=== PATIENT | male | born 1935 | race Caucasian/White ===

== ENCOUNTER 2016-06-06 12:06 | Inpatient (IN) | payer MEDICARE, BC ==
[~2016-06-06] VITALS: Ht 170.2 cm; Wt 79.0 kg
[2016-06-06] VITALS (9 sets, daily range): BP systolic 131–188; BP diastolic 63–88; PULSE 63–87; RESP 20–26; TEMP 96.6–99.1; O2SAT 86–97
[~2016-06-06 12:06] MED LIST: CELE20TA PO; GINK60CA3 PO; LISI10TA3 PO; METO50TA11 PO; MULT1TAB84 PO; OXYC20TA17 PO; PANT20 PO; PERC10TA27 PO; PRED5TAB PO; TAMS5CAP PO; TEST1INJ3 IM; VITA100064 PO
--- NOTE | 2016-06-06 12:11 | PD ---
Physical Exam Time Seen by Provider: 12:09 Narrative Patient presents for evaluation of shortness of breath and lethargy since this morning. States has low grade fever. Oxygen is 86% on RA. Patient will be transported to medical bed immediately. Data Data Last Documented VS Vital Signs Date Time Temp Pulse Resp B/P Pulse Ox O2 Delivery O2 Flow Rate FiO2 06/06/16 12:09 99.1 63 24 181/84 86 Room Air MDM Supervised Visit with DIEGO: Jessica Sanchez Jun 06, 2016 12:11
[2016-06-06] MEDS ORDERED: HYDROmorphone HCL PF 1 MG/ML VIAL IV ONE (12:30)
[2016-06-06] MEDS ORDERED: SODIUM CHLORID 0.9% 500 ML INJ 500 ML IV ONE (12:30)
[2016-06-06] MEDS ORDERED: VANCOMYCIN INJ 1,000 MG in SODIUM CHLOR 0.9% 250 ML INJ 250 ML IV ONE (12:30)
[2016-06-06] MEDS ORDERED: ONDANSETRON HCL 4 MG/2 ML VIAL IV ONE (12:30)
--- NOTE | 2016-06-06 12:39 | PD ---
HPI Chief Complaint: Respiratory Symptoms Time Seen by Provider: 12:26 Travel History International Travel<30 days: No Contact w/Intl Traveler<30days: No Traveled to known affect area: No History of Present Illness HPI 81-year-old male patient with history of hypertension, previous lumbar fusion done in error and complicated by infection according to family, seen at [facility], here because of worsening and back pains since yesterday, states that it is a 8 out of 10 at times but currently is mild according to patient. He has been more confused according to the family, states that he does not feel right, has had subjective fevers, and had been seen by Dr. Velazquez who is his primary care physician. Dr. Velazquez sent him in today for further evaluation in the ER. Patient's family has also stated he has had some urinary incontinence twice since yesterday. He has had no stool incontinence. He has not been walking today due to pain. 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) Social History Alcohol Use: Yes (daily) Tobacco Use: No Substance Use: No Allergies-Medications (Allergen,Severity, Reaction): Coded Allergies: No Known Allergies (Unverified , 06/06/16) Reported Meds & Prescriptions Reported Meds & Active Scripts Active Reported Prolia Inj (Denosumab) 60 Mg/Ml Inj 60 Mg SQ Q180D Synthroid (Levothyroxine Sodium) 50 Mcg Tab 50 Mcg PO DAILY Ginkgo Biloba 60 Mg Cap 60 Mg PO DAILY Multivitamin Adults (Multiple Vitamins W/ Minerals) 1 Tab 1 Tab PO DAILY Testosterone Cypionate Inj (Testosterone Cypionate) Unknown Strength Inj Unknown Dose IM Q14D Percocet (Oxycodone-Acetaminophen) 10-325 mg Tab 1 Tab PO BID PRN Lisinopril 10 Mg Tab 10 Mg PO DAILY Protonix (Pantoprazole Sodium) 20 Mg Tab 20 Mg PO DAILY Metoprolol Succinate ER 24 HR (Metoprolol Succinate) 50 Mg Tab 75 Mg PO DAILY Flomax (Tamsulosin HCl) 0.4 Mg Cap 0.8 Mg PO HS Celexa (Citalopram Hydrobromide) 20 Mg Tab 20 Mg PO DAILY Prednisone 5 Mg Tab 7.5 Mg PO DAILY Oxycontin (Oxycodone HCl) 20 Mg Tab 20 Mg PO Q12HR Review of Systems Except as stated in HPI: all other systems reviewed are Neg Physical Exam Narrative GENERAL: Well-developed elderly male patient currently in mild distress. Awake and oriented 3. SKIN: Focused skin assessment warm/dry. HEAD: Atraumatic. Normocephalic. EYES: Pupils equal and round. No scleral icterus. No injection or drainage. ENT: No nasal bleeding or discharge. Mucous membranes pink and moist. NECK: Trachea midline. No JVD. CARDIOVASCULAR: Regular rate and rhythm. No murmur appreciated. RESPIRATORY: No accessory muscle use. Clear to auscultation. Breath sounds equal bilaterally. GASTROINTESTINAL: Abdomen soft, non-tender, nondistended. Hepatic and splenic margins not palpable. BACK: No CVA tenderness. No rash. No point tenderness on palpation of the spine. There is a lower lumbar spine midline scar notable. MUSCULOSKELETAL: No obvious deformities. No clubbing. No cyanosis. No edema. NEUROLOGICAL: Awake and alert. No obvious cranial nerve deficits. Motor grossly within normal limits. Normal speech. PSYCHIATRIC: Appropriate mood and affect; insight and judgment normal. Data Data Last Documented VS Vital Signs Date Time Temp Pulse Resp B/P Pulse Ox O2 Delivery O2 Flow Rate FiO2 06/06/16 14:07 Automatic Cuff 06/06/16 14:07 Nasal Cannula 06/06/16 14:03 98.1 68 20 96 2 Orders Electrocardiogram (06/06/16 ) Complete Blood Count With Diff (06/06/16 12:26) Comprehensive Metabolic Panel (06/06/16 12:26) Lactic Acid Sepsis Protocol (06/06/16 12:26) Urinalysis - C+S If Indicated (06/06/16 12:26) Blood Culture (06/06/16 12:26) Blood Glucose (06/06/16 12:26) Ecg Monitoring (06/06/16 12:26) Iv Access Insert/Monitor (06/06/16 12:26) Oximetry (06/06/16 12:26) Oxygen Administration (06/06/16 12:26) Hydromorphone Pf Inj (Dilaudid Pf Inj) (06/06/16 12:30) Ondansetron Inj (Zofran Inj) (06/06/16 12:30) Sodium Chlorid 0.9% 500 Ml Inj (Ns 500 M (06/06/16 12:30) Vancomycin Inj (Vancomycin Inj) (06/06/16 12:30) Chest, Single Ap (06/06/16 12:39) Piperacil-Tazo 3.375 Gm Premix (Zosyn 3. (06/06/16 12:45) B-Type Natriuretic Peptide (06/06/16 13:10) Urine Culture (06/06/16 14:00) Furosemide Inj (Lasix Inj) (06/06/16 14:30) Admit Order (Ed Use Only) (06/06/16 14:22) Labs Laboratory Tests Test 06/06/16 06/06/16 06/06/16 06/06/16 12:20 12:23 12:33 14:00 B-Type Natriuretic Peptide 1259 PG/ML Lactic Acid Level 0.5 mmol/L White Blood Count 9.5 TH/MM3 Red Blood Count 3.94 MIL/MM3 Hemoglobin 9.9 GM/DL Hematocrit 31.8 % Mean Corpuscular Volume 80.8 FL Mean Corpuscular Hemoglobin 25.1 PG Mean Corpuscular Hemoglobin 31.1 % Concent Red Cell Distribution Width 16.5 % Platelet Count 204 TH/MM3 Mean Platelet Volume 8.5 FL Neutrophils (%) (Auto) 87.8 % Lymphocytes (%) (Auto) 5.8 % Monocytes (%) (Auto) 5.8 % Eosinophils (%) (Auto) 0.2 % Basophils (%) (Auto) 0.4 % Neutrophils # (Auto) 8.4 TH/MM3 Lymphocytes # (Auto) 0.6 TH/MM3 Monocytes # (Auto) 0.6 TH/MM3 Eosinophils # (Auto) 0.0 TH/MM3 Basophils # (Auto) 0.0 TH/MM3 CBC Comment DIFF FINAL Differential Comment Sodium Level 139 MEQ/L Potassium Level 4.7 MEQ/L Chloride Level 105 MEQ/L Carbon Dioxide Level 27.9 MEQ/L Anion Gap 6 MEQ/L Blood Urea Nitrogen 33 MG/DL Creatinine 1.58 MG/DL Estimat Glomerular Filtration 43 ML/MIN Rate Random Glucose 103 MG/DL Calcium Level 8.7 MG/DL Total Bilirubin 0.6 MG/DL Aspartate Amino Transf 8 U/L (AST/SGOT) Alanine Aminotransferase 18 U/L (ALT/SGPT) Alkaline Phosphatase 96 U/L Total Protein 6.8 GM/DL Albumin 3.3 GM/DL Urine Color YELLOW Urine Turbidity CLEAR Urine pH 5.5 Urine Specific [place] 1.017 Urine Protein 100 mg/dL Urine Glucose (UA) NEG mg/dL Urine Ketones NEG mg/dL Urine Occult Blood SMALL Urine Nitrite NEG Urine Bilirubin NEG Urine Urobilinogen LESS THAN 2.0 MG/DL Urine Leukocyte Esterase NEG Urine RBC 4 /hpf Urine WBC 1 /hpf Urine Squamous Epithelial <1 /hpf Cells Urine Bacteria RARE /hpf Urine Hyaline Casts 1 /lpf Microscopic Urinalysis Comment CATH-CULTURE IND MDM Medical Decision Making Medical Screen Exam Complete: Yes Emergency Medical Condition: Yes Medical Record Reviewed: Yes Interpretation(s) EKG shows NSR, no ST elevation or depression, and no arrhythmias. No significant T-wave inversions. Laboratory Tests Test 06/06/16 06/06/16 06/06/16 12:20 12:33 14:00 B-Type Natriuretic Peptide 1259 PG/ML (0-100) Red Blood Count 3.94 MIL/MM3 (4.50-5.90) Hemoglobin 9.9 GM/DL (13.0-17.0) Hematocrit 31.8 % (39.0-51.0) Mean Corpuscular Hemoglobin 25.1 PG (27.0-34.0) Mean Corpuscular Hemoglobin 31.1 % Concent (32.0-36.0) Neutrophils (%) (Auto) 87.8 % (16.0-70.0) Lymphocytes (%) (Auto) 5.8 % (9.0-44.0) Neutrophils # (Auto) 8.4 TH/MM3 (1.8-7.7) Lymphocytes # (Auto) 0.6 TH/MM3 (1.0-4.8) Blood Urea Nitrogen 33 MG/DL (7-18) Creatinine 1.58 MG/DL (0.60-1.30) Estimat Glomerular Filtration 43 ML/MIN (>89) Rate Aspartate Amino Transf 8 U/L (15-37) (AST/SGOT) Albumin 3.3 GM/DL (3.4-5.0) Urine Protein 100 mg/dL (NEG-TRACE) Urine Occult Blood SMALL (NEG) Urine RBC 4 /hpf (0-3) Urine Bacteria RARE /hpf (NONE) Last 24 hours Impressions Chest X-Ray 06/06/16 1239 Signed Impressions: Service Date/Time: Monday, June 06, 2016 12:50 - CONCLUSION: 1. Mild perihilar and lower lung zone interstitial opacity of uncertain chronicity. In the appropriate clinical setting this could represent mild interstitial edema. 2. Mild enlargement of the cardiac silhouette. Misbah Horne MD Differential Diagnosis Lower back pain, urinary incontinence, feversosteomyelitis versus spinal abscess versus acute on chronic back pain Narrative Course Initially with history, there is concern of sepsis and IV antibiotics and cultures were taken. Sepsis protocol initiated with IV fluid bolus. However, BNP returns fairly elevated and IV fluids were stopped and Lasix given as well. At this point, I have talked to the patient's [id number], a physician, who states that the patient had a CAT scan of his spine within the past few weeks and it did not show any signs of osteomyelitis. They state that he has titanium rods in his spine and that they were not able to get MRI due to the artifact. At this point, she states that she thinks that he has underlying pneumonia. My plan would be to admit the patient for further treatment. Family states they do not want MRI done. I have talked to them regarding the fact that certain things can be missed on CT including spinal abscesses. They state understanding. They feel that the patient's back pain is fairly chronic and that the breathing symptoms are what is new and patient had looked disoriented at home yesterday. Case is then discussed with MARY ALICE Enciso for [facility] hospitalist for admission. Diagnosis Primary Impression: Pneumonia Additional Impression: CHF (congestive heart failure) Admitting Information Admitting Physician Requests: Admit Live Gtz MD Jun 06, 2016 12:39
[2016-06-06] MEDS ORDERED: PIPERACIL-TAZO 3.375 GM PREMIX 50 ML IV ONE (12:45)
[2016-06-06] MEDS ORDERED: LEVO.05 PO (12:47)
[2016-06-06] MEDS ORDERED: SYNT25TA PO (12:47)
[2016-06-06] MEDS ORDERED: DENO60P SQ (12:49)
[2016-06-06 13:02] LABS: AUTOMATED NEUTROPHIL # 8.4 TH/MM3 (1.8-7.7); BASOPHIL % 0.4 % (0.0-2.0); EOSINOPHIL % 0.2 % (0.0-4.0); HEMATOCRIT 31.8 % (39.0-51.0); HEMO FLAGS DIFF FINAL; LYMPH % 5.8 % (9.0-44.0); LYMPHOCYTE # 0.6 TH/MM3 (1.0-4.8); MEAN CELL VOLUME 80.8 FL (80.0-100.0); MEAN CORPUSCULAR HEMOGLOBIN 25.1 PG (27.0-34.0); MEAN CORPUSCULAR HGB CONC 31.1 % (32.0-36.0); MONO % 5.8 % (0.0-8.0); NEUT % 87.8 % (16.0-70.0); PLATELET COUNT 204 TH/MM3 (150-450); RED BLOOD COUNT 3.94 MIL/MM3 (4.50-5.90); RED CELL DISTRIBUTION WIDTH 16.5 % (11.6-17.2); WHITE BLOOD COUNT 9.5 TH/MM3 (4.0-11.0)
--- NOTE | 2016-06-06 13:17 | RADRPT ---
EXAM DATE/TIME: 06/06/2016 12:50 [facility] COMPARISON: No previous studies available for comparison. INDICATIONS : Fever, short of breath. MEDICAL HISTORY : None. SURGICAL HISTORY : None. ENCOUNTER: Initial ACUITY: 1 day PAIN SCORE: 0/10 LOCATION: Bilateral chest FINDINGS: Portable AP view of the chest demonstrates mildly enlarged cardiac silhouette. There is mild perihila r and lower lung zone interstitial opacity bilaterally. No pleural effusion or pneumothorax is identi fied. The bones and soft tissues demonstrate no acute finding. There is elevation of the humeral head s bilaterally. Partially visualized lumbar spine hardware is present. CONCLUSION: 1. Mild perihilar and lower lung zone interstitial opacity of uncertain chronicity. In the appropriat e clinical setting this could represent mild interstitial edema. 2. Mild enlargement of the cardiac silhouette. Misbah Horne MD on June 06, 2016 at 13:14 Board Certified Radiologist. This report was verified electronically.
[2016-06-06 13:20] LABS: ANION GAP 6 MEQ/L (5-15); AST (GOT) 8 U/L (15-37); BICARBONATE 27.9 MEQ/L (21.0-32.0); BLOOD UREA NITROGEN 33 MG/DL (7-18); CHLORIDE 105 MEQ/L (98-107); GLOMERULAR FILTRATION RATE 43 ML/MIN (>89); POTASSIUM 4.7 MEQ/L (3.5-5.1); SODIUM (NA) 139 MEQ/L (136-145)
[2016-06-06 13:25] LABS: ALKALINE PHOSPHATASE 96 U/L (45-117); ALT (GPT) 18 U/L (12-78); TOTAL BILIRUBIN ADULT 0.6 MG/DL (0.2-1.0)
[2016-06-06 14:21] LABS: BACTERIA, URINE RARE /hpf; BLOOD, URINE SMALL (NEG); COMMENT (UR) CATH-CULTURE IND; CULTURE IF INDICATED CATH CULTURE IND; GLUCOSE,URINE NEG (NEG); HYALINE CAST, URINE 1 /lpf (RARE); KETONE, URINE NEG (NEG); NITRITE,URINE NEG (NEG); PH, URINE 5.5 (5.0-8.5); SQUAMOUS EPITHELIAL CELL URINE <1 /hpf (0-5); URINE COLOR YELLOW (YELLW/STRAW)
[2016-06-06] MEDS ORDERED: FUROSEMIDE 40 MG/4 ML VIAL IV PUSH ONE (14:30)
[2016-06-06] MEDS ORDERED: NALOXONE HCL 0.4 MG/ML AMP IV PRN (15:30)
[2016-06-06] MEDS ORDERED: ACETAMINOPHEN 325 MG TAB PO PRN (15:30)
[2016-06-06] MEDS ORDERED: ONDANSETRON HCL 4 MG/2 ML VIAL IVP PRN (15:30)
[2016-06-06] MEDS ORDERED: MAGNESIUM HYDROXIDE SUSP 30 ML CUP PO PRN (15:30)
[2016-06-06] MEDS ORDERED: BISACODYL 10 MG SUPP RECTAL PRN (15:30)
[2016-06-06] MEDS: HEPARIN SODIUM - SQ 10,000 UNITS/ML VIAL SQ SCH (16:00)
[2016-06-06] MEDS ORDERED: DEXT 5%-NACL 0.9% 1000 ML INJ 1,000 ML IV SCH (16:45)
[2016-06-06] MEDS ORDERED: ENALAPRILAT 1.25 MG/ML VIAL IV PUSH PRN (16:45)
[2016-06-06] MEDS: SODIUM CHLORIDE 0.9% FLUSH 10 ML FLUSH IV FLUSH PRN (17:00)
--- NOTE | 2016-06-06 17:48 | RADRPT ---
EXAM DATE/TIME: 06/06/2016 17:29 [facility] COMPARISON: No previous studies available for comparison. INDICATIONS : Altered mental status and lethargy. RADIATION DOSE: 55.39 CTDIvol (mGy) MEDICAL HISTORY : Stroke. Hypertension. Cerebrovascular disease. SURGICAL HISTORY : None. ENCOUNTER: Subsequent ACUITY: 2 days PAIN SCALE: Non-responsive LOCATION: cranial TECHNIQUE: Multiple contiguous axial images were obtained of the head. Using automated exposure control and adjustment of the mA and/or kV according to patient size, radiation dose was kept as low as reasonably achievable to obtain optimal diagnostic quality images. FINDINGS: CEREBRUM: Focal encephalomalacia is identified in the left frontal lobe. There is focal hypodensi ty with cortical thinning and enlargement of the frontal horn. The ventricles are otherwise normal fo r age. No evidence of midline shift, mass lesion, hemorrhage or acute infarction. No extra-axial fl uid collections are seen. POSTERIOR FOSSA: The cerebellum and brainstem are intact. The 4th ventricle is midline. The cer ebellopontine angle is unremarkable. EXTRACRANIAL: The visualized portion of the orbits is intact. Calcific densities identified in th e left maxillary sinus. SKULL: The calvaria is intact. No evidence of skull fracture. CONCLUSION: Left frontal lobe encephalomalacia. Otherwise unremarkable evaluation of the brain. There is no evidence of acute infarct, hemorrhage, ma ss or edema. Left maxillary sinus calcification. Danial Alfaro MD on June 06, 2016 at 17:43 Board Certified Radiologist. This report was verified electronically.
--- NOTE | 2016-06-06 18:02 | MH ---
cc: HEAVENLY LEON DATE OF ADMISSION: 06/06/2016 DATE OF : 1935 CHIEF COMPLAINT ON ADMISSION shortness of breath. Travel in the last 30 days: None. HISTORY OF PRESENT ILLNESS This is a pleasant [id number]-male who came in to the emergency room with some shortness of breath and some mild fever, according to family and the ER record. According to the record, the patient also had had some urinary incontinence twice yesterday. Family members which includes the son and [id number] saw the patient last night and he was able to walk but he did not seem to feel right, he had had some complaints of shortness of breath. On exam in the emergency room for admission, the patient had had pain medication and was very drowsy on initial assessment. He was awakened and was able to respond slowly to his son. He is displaying some altered mental status and is unable at this time to carry on any conversation more than shaking his head to yes or no questions. When asked if he has any pain he notes pain when he urinates. The patient received 40 of IV Lasix in the emergency room and was able to urinate 80 cc in the urinal an hour later. The patient is positive for face being very flushed, oral temperature shows 98.8. According to [id number], the patient has been getting some rehabilitation for the past few months and back pain and ambulation has improved. Currently the patient has low respiratory volumes and is showing some signs of dyspnea. Son is here at his side and is assisting with his history and information and communication. Son's who is a physician in [employer] is also assisting with his information. PAST MEDICAL HISTORY 1. Hypertension. 2. Chronic back pain. 3. 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 4. Degenerative disc disease. 5. Cardiomegaly. 6. Benign prostatic hypertrophy. 7. Debility. 8. Severe osteoporosis. 9. Depression. 10. History of renal failure. 11. Gastroesophageal reflux disease. PAST SURGICAL HISTORY Status post lumbar spine surgery for compensation of spinal cord. ALLERGIES NO KNOWN. MEDICATIONS REPORTED 1. Prolia injections. 2. Synthroid. 3. Ginkgo Biloba. 4. Multivitamins. 5. Testosterone. 6. Lisinopril. 7. Protonix. 8. Metoprolol. 9. Flomax. 10. Celexa. 11. Prednisone. 12. OxyContin. SOCIAL HISTORY The patient is , currently lives in his home with his . From the record, no noted tobacco or illicit drug use. Alcohol daily noted. REVIEW OF SYSTEMS A 12-point review was done. Secondary to the patient's altered mental status, very little information was gathered from the patient except for an occasional nod of his head. He did nod to pain of dysuria. Other systems negative or unremarkable unless mentioned in the HPI. PHYSICAL EXAMINATION VITAL SIGNS: Temperature is 98.6, pulse 80, respirations 20, blood pressure 131/63, has been as high as 181/84, O2 sat 94 currently 2 liters nasal cannula. GENERAL: Well-developed, well-nourished, elderly Eastern male, currently alternating with some lethargy but arouses with some verbal stimuli. He is pleasantly confused on my exam, initially to the emergency room he was awake and oriented x3. SKIN: Flushed face. Warm to touch. HEENT: PERRLA at 3. No scleral icterus. Mucous membranes are moist. NECK: Supple. Trachea is midline. CARDIOVASCULAR: S1, S2. Possibly a very soft murmur noted at the left sternal border. Trace of edema bilateral in his lower extremities. Pulses are palpable and intact. RESPIRATORY: He has some mild expiratory wheezes noted in his upper air santizo. Diminished breath sounds in his [id number] lobes. GASTROINTESTINAL: Abdomen is round, soft, nontender, nondistended. Active bowel sounds noted. GENITOURINARY: Minimal small amounts of voiding in the urinal, yellow, clear. MUSCULOSKELETAL: Trace of lower extremity edema. No clubbing, no cyanosis. 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 NEUROLOGIC: Mental status is currently altered with mild confusion. He is not making eye contact during my exam. PSYCHIATRIC: Affect and judgment unable to assess. DIAGNOSTIC DATA Urine is yellow, clear, pH is 5.5, specific gravity 1.017, urine protein is 100. Negative for glucose, ketones, nitrites, bilirubin, less than 2 on urobilinogen, leukocyte esterase negative, RBCs 4, WBCs 1, squamous epithelial less than 1, rare bacteria, hyaline casts 1, small amount of occult blood. Urine cath is indicated. WBC count 9.5, RBC 3.94, hemoglobin 9.9, hematocrit 31.8, MCH 25.1, MCHC 31.1, platelet count 204, neutrophil auto percentage 87.8, lymphocyte 5.8. Urine sodium 139, potassium 4.7, chloride 105, carbon dioxide 27.9, anion gap 6, BUN 33, creatinine 1.58, GFR 43, random glucose 103, lactic acid 0.5, calcium 8.7, total bilirubin 0.6, AST 8, ALT 18, alkaline phosphatase 96, BNP 1259, total protein 6.8, albumin 3.3. IMAGING STUDIES Chest x-ray shows mid perihilar and lower zone interstitial opacity, uncertain chronicity. Possible mild interstitial edema. Enlargement of the cardiac silhouette. ASSESSMENT 1. Congestive heart failure. 2. Pneumonia. Rule out aspiration pneumonia. 3. Acute kidney injury with a history of renal failure. 4. Urinary tract infection. 5. Possible anemia. 6. Altered mental status. PLAN 1. Admit. 2. We will monitor the patient's vital signs every 4 hours as well as neuro checks and p.r.n. as needed. 3. Activity will be bedrest for now. 4. In the emergency room, the patient was started on O2, ECG monitor and IV access. He received 0.5 of hydromorphone as well as a saline bolus. The patient received Vancomycin and Zosyn IV and initial labs to start his course of treatment. 5. We will place the patient on heparin for DVT prophylaxis, SCDs. 6. We will have ST to come evaluate his swallow and evaluate possible aspiration. 7. 2D echo ordered with Doppler. 8. Reconcile medications as needed. 9. We will do Pepcid IV for PUD prophylaxis. 10. Before we feed the patient, we will evaluate his ability to swallow. The patient is FULL CODE/FULL AGGRESSIVE CARE. We will follow. Dictated by: Jelena Enciso NP MD SERJIO Hurley/VALARIE /4:05 PM /4:52 PM
[2016-06-06] MEDS: DOCUSATE SODIUM 100 MG CAP PO SCH (21:00)
[2016-06-06 21:48] LABS: BLOOD GAS BASE EXCESS 0.8 mmol/L (-2-2); BLOOD GAS CARBOXYHEMOGLOBIN 1.8 % (0-4); BLOOD GAS HCO3 27 mmol/L (22-26); BLOOD GAS METHEMOGLOBIN 0.8 % (0-2); BLOOD GAS O2 HGB SATURATION 95 % (90-100); BLOOD GAS OXYGEN CONTENT 12.4 Vol % (12.0-20.0); BLOOD GAS PCO2 60 mmHg (38-42); BLOOD GAS PO2 104 mmHg (61-120); BLOOD GAS TOTAL HGB 9.1 G/DL (12.0-16.0); TEMP CORR TO 98.6
[2016-06-06 21:49] LABS: CRITICAL VALUE YES; OXYGEN DEVICE NASAL CANNULA
[2016-06-06 21:50] LABS: DRAW SITE LT RADIAL; LITER FLOW 2 L/M; NUMBER OF ARTERIAL PUNCTURES 1; STAT YES; ULNAR PULSE PRESENT
[2016-06-06] MEDS: FAMOTIDINE 20 MG/2 ML VIAL IV PUSH SCH (23:08)
[2016-06-06] MEDS: SODIUM CHLORIDE 0.9% FLUSH 10 ML FLUSH IV FLUSH SCH (23:08)
[2016-06-07] VITALS (13 sets, daily range): BP systolic 120–181; BP diastolic 51–78; PULSE 49–91; RESP 14–18; TEMP 97.6–99.6; O2SAT 93–100
[2016-06-07] MEDS: HEPARIN SODIUM - SQ 10,000 UNITS/ML VIAL SQ SCH ×2 (04:00→15:57)
[2016-06-07 06:00] LABS: BICARBONATE 28.6 MEQ/L (21.0-32.0); POTASSIUM 4.6 MEQ/L (3.5-5.1)
[2016-06-07] MEDS: SODIUM CHLORIDE 0.9% FLUSH 10 ML FLUSH IV FLUSH SCH ×2 (09:00→19:55)
[2016-06-07] MEDS: FAMOTIDINE 20 MG/2 ML VIAL IV PUSH SCH (09:00)
[2016-06-07] MEDS: DOCUSATE SODIUM 100 MG CAP PO SCH ×2 (09:00→19:55)
[2016-06-07] MEDS ORDERED: RESP: ALBUTEROL 2.5 MG/IPRATROPIUM 0.5 MG NEB (PRN) NEB (12:15)
--- NOTE | 2016-06-07 12:26 | EC ---
Study Study Date:06/07/2016 STUDY CONCLUSIONS SUMMARY - Left ventricle: The cavity size was normal. Wall thickness was increased in a pattern of mild LVH. Systolic function was normal. The estimated ejection fraction was in the range of 55% to 60%. Wall motion was normal; there were no regional wall motion abnormalities. - Aortic valve: Valve area: 2.71cm^2 (Vmax). - Tricuspid valve: Mild regurgitation. - Pulmonic valve: Mild regurgitation. If LV function is below 40, please consider prescribing an ACEI or ARB or document rationale for non-use. PROCEDURE DATA STUDY STATUS: Elective. Procedure: Transthoracic echocardiography. Image quality was good. Scanning was performed from the parasternal, apical, and subcostal acoustic windows. Study completion: The patient tolerated the procedure well. Transthoracic echocardiography. M-mode, complete 2D, complete spectral Doppler, and color Doppler. Height: Height: 67in. Weight: Weight: 175.6lb. Body mass index: BMI: 27.6kg/m^2. Body surface area: BSA: 1.92m^2. Patient status: Inpatient. CARDIAC ANATOMY LEFT VENTRICLE: The cavity size was normal. Wall thickness was increased in a pattern of mild LVH. Systolic function was normal. The estimated ejection fraction was in the range of 55% to 60%. Wall motion was normal; there were no regional wall motion abnormalities. AORTIC VALVE: Trileaflet; normal thickness leaflets. Doppler: Transvalvular velocity was within the normal range. There was no stenosis. No regurgitation. Valve area: 2.71cm^2 (Vmax). Indexed valve area: 1.41cm^2/m^2 (Vmax). AORTA: Aortic root: The aortic root was normal in size. MITRAL VALVE: Structurally normal valve. Doppler: Transvalvular velocity was within the normal range. There was no evidence for stenosis. Trace regurgitation. Valve area by pressure half-time: 3.14cm^2. Indexed valve area by pressure half-time: 1.64cm^2/m^2. Peak gradient: 4mm Hg (D). LEFT ATRIUM: The atrium was normal in size. RIGHT VENTRICLE: The cavity size was normal. Wall thickness was normal. PULMONIC VALVE: Doppler: Transvalvular velocity was within the normal range. There was no evidence for stenosis. Mild regurgitation. TRICUSPID VALVE: Structurally normal valve. Doppler: Transvalvular velocity was within the normal range. Mild regurgitation. Peak gradient: 29mm Hg (D). PULMONARY ARTERY: The main pulmonary artery was normal-sized. Systolic pressure was within the normal range. RIGHT ATRIUM: The atrium was normal in size. PERICARDIUM: There was no pericardial effusion. SYSTEMIC VEINS: Inferior vena cava: The vessel was normal in size. Patient weight: 175.6lb _Ejection fraction:_ 65-75% _Fractional shortening:_ 32% up to 5Kg 5-11.5Kg 11.6-22.9Kg 23-45Kg 45-57Kg Aortic Root 7-13 <17 13-22 17-27 17-27 LA diam 6-13 <23 24-38 33-47 37-40 RVID 10-17 7-15 7-15 7-18 8-17 LVIDd 12-22 <32 24-38 33-47 37-40 LVPW 2-4 3-6 5-7 6-8 7-8 IVS 2-4 3-6 5-7 6-8 7-8 BASIC MEASUREMENTS ADULT NORMAL Left ventricle LV internal dimension, ED, chordal 48.3 mm 43-52 level, PLAX LV internal dimension, ES, chordal 32.7 mm 23-38 level, PLAX Fractional shortening, chordal level, 32 % >29 PLAX LV posterior wall thickness, ED 16.4 mm IVS/LVPW ratio, ED 1.02 <1.3 Volume, ED, MOD, 1-plane 87 ml Volume, ES, MOD, 1-plane 39 ml Ejection fraction, MOD, 1-plane 55 % Stroke volume, MOD, 1-plane 48 ml Volume index, ED, MOD, 1-plane 45 ml/m^2 Volume index, ES, MOD, 1-plane 20 ml/m^2 Stroke index, MOD, 1-plane 25 ml/m^2 Ventricular septum Septal thickness, ED 16.7 mm Aortic valve Leaflet separation 23 mm 15-26 Left atrium Anterior-posterior dimension 47 mm Anterior-posterior dimension index *2.45 cm/m^2 <2.2 Right ventricle RV internal dimension, ED, PLAX 32 mm 19-38 BASIC MEASUREMENTS ADULT NORMAL Aortic valve Leaflet separation 23 mm 15-26 Aorta Root diameter, ED 28 mm 20-37 DOPPLER MEASUREMENTS ADULT NORMAL Aortic valve Peak velocity, S 157 cm/s Valve area, Vmax 2.71 cm^2 Valve area index, Vmax 1.41 cm^2/m^2 Mitral valve Peak E-wave velocity 93.8 cm/s Peak A-wave velocity 65.2 cm/s Pressure half-time 70 ms Peak gradient, D 4 mm Hg Peak E/A ratio 1.4 Valve area, pressure half-time 3.14 cm^2 Valve area index, pressure half-time 1.64 cm^2/m^2 Tricuspid valve Peak gradient, D 29 mm Hg Maximal inflow velocity 269 cm/s Pulmonic valve Peak velocity, S 109 cm/s Acceleration time 838 ms LEGEND: Mean values are shown as u=mean value. Asterisk (*) mccormick values outside specified normal range. Prepared and signed by Denver Villalba [id number]
[2016-06-07] MEDS: FUROSEMIDE 40 MG/4 ML VIAL IV PUSH SCH ×2 (12:56→17:05)
--- NOTE | 2016-06-07 13:23 | RADRPT ---
EXAM DATE/TIME: 06/07/2016 13:11 [facility] COMPARISON: CHEST SINGLE AP, June 06, 2016, 12:50. INDICATIONS : Respiratory failure MEDICAL HISTORY : None. SURGICAL HISTORY : None. ENCOUNTER: Subsequent ACUITY: 2 days PAIN SCORE: 0/10 LOCATION: Bilateral chest FINDINGS: The left diaphragm is obscured by consolidative changes. Vascular congestion and interstitial promine nce is again noted. Cardiac size and mediastinal contours are grossly stable. CONCLUSION: Worsening aeration. Misbah Sanchez MD on June 07, 2016 at 13:21 Board Certified Radiologist. This report was verified electronically.
--- NOTE | 2016-06-07 13:39 | PD.CONS ---
[facility] Service Critical Care Medicine Consult Requested By Dr. Kenney Reason for Consult Acute resp failure Primary Care Physician Everton Velazquez MD History of Present Illness 81-year-old male with a medical history significant for chronic back pain for which she had a lumbar fusion done 6 months ago with a complicated postop course with no resolution of his back pain and since the last 3-4 months has been on OxyContin and Percocet for pain control however has been gradually improving in terms of his physical performance and walking with a walker. Family notes that he has been sleeping a lot for the last 3-4 months and this has coincided with his narcotic use including OxyContin and Percocet around that time. He was in his usual state of health until about a week back when he had a few episodes of nausea vomiting from an upset stomach according to his family. He appeared to have improved from that however yesterday morning around 10 AM family noticed he was confused and had some altered mental status. He reportedly also had a couple of episodes of urinary incontinence yesterday morning. He had been having some subjective fevers and was taken to see Dr. Velazquez his primary care physician. Dr. Velazquez felt patient was having delirium from an infection and referred him to the ER at [place]. Patient was noted to have an elevated BNP, TSH of 11. Chest x-ray done in the ER suggested interstitial edema. Patient was initiated on IV Lasix and received 1 dose of Zosyn in the ER and was subsequently admitted by [facility] service to the floor. Last night he had some respiratory distress and ABG done revealed acute respiratory acidosis with PCO2 in the 60s and he was started on BiPAP with settings of +12/+5 FiO2 35% which he has been tolerating well. Per ER physician's documentation he was also complaining of worsening back pain yesterday 8 out of 10 in intensity. In view of worsening respiratory distress requiring BiPAP and acute respiratory acidosis and altered mental status, critical care consult was requested by [facility] as well as ICU transfer. I evaluated the patient immediately on being notified while he was on the floor. At the time of my evaluation patient was on BiPAP with full facemask. He was awake and alert and following commands. He denied any chest pain. Most of the history was obtained by discussion with patient's family at the bedside. Of note patient's family acknowledges that he snores when he lays flat at home and may have sleep apnea though has not had any formal evaluation for that. He was evaluated by Dr. Garner about 2 years ago who did not find any major cardiovascular issues at that time. I do not have the details of that evaluation. History PFSH Past Medical History Hx Anticoagulant Therapy: No Cardiovascular Problems: Yes (HTN ) Diabetes: No Hypertension: Yes Medical other: Yes (chronic back pain) Monoclonal gammopathy of unknown significance for which she has seen Dr. Shen. 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) Social History Alcohol Use: Yes (daily) Tobacco Use: No Substance Use: No Allergies-Medications Allergies-Medications (Allergen,Severity, Reaction): Coded Allergies: No Known Allergies (Unverified , 06/06/16) Reported Meds & Prescriptions Reported Meds & Active Scripts Active Reported Prolia Inj (Denosumab) 60 Mg/Ml Inj 60 Mg SQ Q180D Synthroid (Levothyroxine Sodium) 50 Mcg Tab 50 Mcg PO DAILY Ginkgo Biloba 60 Mg Cap 60 Mg PO DAILY Multivitamin Adults (Multiple Vitamins W/ Minerals) 1 Tab 1 Tab PO DAILY Testosterone Cypionate Inj (Testosterone Cypionate) Unknown Strength Inj Unknown Dose IM Q14D Percocet (Oxycodone-Acetaminophen) 10-325 mg Tab 1 Tab PO BID PRN Lisinopril 10 Mg Tab 10 Mg PO DAILY Protonix (Pantoprazole Sodium) 20 Mg Tab 20 Mg PO DAILY Metoprolol Succinate ER 24 HR (Metoprolol Succinate) 50 Mg Tab 75 Mg PO DAILY Flomax (Tamsulosin HCl) 0.4 Mg Cap 0.8 Mg PO HS Celexa (Citalopram Hydrobromide) 20 Mg Tab 20 Mg PO DAILY Prednisone 5 Mg Tab 7.5 Mg PO DAILY Oxycontin (Oxycodone HCl) 20 Mg Tab 20 Mg PO Q12HR ROS Review of Systems Except as stated in HPI: Detailed review of systems difficult to be obtained in view of respiratory failure requiring BiPAP Physical Exam Vital Signs Vital Signs Date Time Temp Pulse Resp B/P Pulse Ox O2 Delivery O2 Flow Rate FiO2 06/07/16 12:00 98.0 71 17 149/72 99 06/07/16 08:28 95 35 06/07/16 08:00 97.6 76 18 146/78 98 06/07/16 04:00 97.7 91 16 147/67 93 06/07/16 03:25 98 35 06/07/16 00:43 98 35 06/07/16 00:43 98 BiPAP 35 06/07/16 00:00 99.6 77 18 156/73 98 06/06/16 23:40 87 06/06/16 22:20 96 35 06/06/16 20:00 96.6 64 20 139/65 95 06/06/16 16:40 98.6 188/78 96 Nasal Cannula 4 06/06/16 15:22 98.6 80 20 131/63 94 Room Air 06/06/16 14:07 Automatic Cuff 06/06/16 14:07 Nasal Cannula 06/06/16 14:03 98.1 68 20 175/84 96 Nasal Cannula 2 Physical Exam Physical Exam Narrative GENERAL: Well-developed elderly male patient laying in bed on BiPAP with full facemask. SKIN: Focused skin assessment warm/dry. HEAD: Atraumatic. Normocephalic. EYES: Pupils equal and round. No scleral icterus. No injection or drainage. ENT: No nasal bleeding or discharge. Mucous membranes pink and moist. NECK: Trachea midline. No JVD. CARDIOVASCULAR: Regular rate and rhythm. No murmur appreciated. RESPIRATORY: On BiPAP with full facemask, scattered rhonchi, no wheezing. Breath sounds equal bilaterally though decreased at bases. GASTROINTESTINAL: Abdomen soft, non-tender, nondistended. Hepatic and splenic margins not palpable. BACK: No CVA tenderness. No rash. There is a lower lumbar spine midline scar. MUSCULOSKELETAL: No obvious deformities. No clubbing. No cyanosis. No edema. NEUROLOGICAL: Awake and alert, following commands. No obvious cranial nerve deficits. Motor grossly within normal limits. Limited assessment for speech as he is on BiPAP Laboratory Laboratory Tests Test 06/06/16 06/06/16 06/06/16 06/07/16 14:00 21:30 21:33 03:57 Urine Color YELLOW Urine Turbidity CLEAR Urine pH 5.5 Urine Specific [place] 1.017 Urine Protein 100 Urine Glucose (UA) NEG Urine Ketones NEG Urine Occult Blood SMALL Urine Nitrite NEG Urine Bilirubin NEG Urine Urobilinogen LESS THAN 2.0 Urine Leukocyte Esterase NEG Urine RBC 4 Urine WBC 1 Urine Squamous Epithelial <1 Cells Urine Bacteria RARE Urine Hyaline Casts 1 Microscopic Urinalysis Comment CATH-CULTURE IND Blood Gas Puncture Site LT RADIAL Blood Gas Patient Temperature 98.6 Blood Gas HCO3 27 Blood Gas Base Excess 0.8 Blood Gas Oxygen Saturation 95 Arterial Blood pH 7.28 Arterial Blood Partial 60 Pressure CO2 Arterial Blood Partial 104 Pressure O2 Arterial Blood Oxygen Content 12.4 Arterial Blood 1.8 Carboxyhemoglobin Arterial Blood Methemoglobin 0.8 Blood Gas Hemoglobin 9.1 Oxygen Delivery Device NASAL CANNULA Blood Gas Liter Flow 2 Ammonia 40 Thyroid Stimulating Hormone 11.000 3rd Gen Random Cortisol 13.3 Sodium Level 142 Potassium Level 4.6 Chloride Level 108 Carbon Dioxide Level 28.6 Anion Gap 5 Blood Urea Nitrogen 33 Creatinine 1.67 Estimat Glomerular Filtration 40 Rate Random Glucose 97 Calcium Level 7.7 Date/Time Procedure Status Source Growth 06/06/16 14:00 Urine Culture - Preliminary Resulted Urine Catheterized Urine NO GROWTH IN 24 HOURS. 06/06/16 12:33 Aerobic Blood Culture - Preliminary Resulted Blood Peripheral NO GROWTH IN 1 DAY 06/06/16 12:33 Anaerobic Blood Culture - Preliminary Resulted Blood Peripheral NO GROWTH IN 1 DAY Result Diagram: 06/06/16 1233 06/07/16 0357 Imaging Last Impressions Chest X-Ray 06/06/16 1239 Signed Impressions: Service Date/Time: Monday, June 06, 2016 12:50 - CONCLUSION: 1. Mild perihilar and lower lung zone interstitial opacity of uncertain chronicity. In the appropriate clinical setting this could represent mild interstitial edema. 2. Mild enlargement of the cardiac silhouette. Misbah Horne MD Head CT 06/06/16 0000 Signed Impressions: Service Date/Time: Monday, June 06, 2016 17:29 - CONCLUSION: Left frontal lobe encephalomalacia. Otherwise unremarkable evaluation of the brain. There is no evidence of acute infarct, hemorrhage, mass or edema. Left maxillary sinus calcification. Danial Alfaro MD Assessment and Plan Assessment and Plan 81-year-old male with: Encephalopathy which is probably multifactorial -Delirium -secondary to CO2 retention secondary to narcotics in the setting of sleep apnea and possible infection Acute respiratory failure requiring BiPAP Suspected pulmonary edema versus aspiration pneumonia versus both Hypothyroidism KEKE Chronic back pain on narcotics Plan: Neuro: Hold long-acting narcotics in view of altered mental status and CO2 retention. If required will resume Percocet for back pain as needed. Follow neuro status. Head CT done on 06/06 was negative for bleed. Cardiovascular: Being diuresed with Lasix. Awaiting 2-D echo. Elevated proBNP noted. Cardiology consult already requested by Dr. Turner. EKG on admission unremarkable with sinus rhythm and nonspecific ST-T changes. Serial cardiac enzymes ordered and pending at this time. Pulmonary: Continue BiPAP with full facemask. We'll repeat ABG on BiPAP to follow-up on CO2 retention. Bronchodilators as needed. He has been initiated on IV Solu-Medrol though does not have a significant history of COPD and will plan on tapering rapidly. CT chest without oral contrast to evaluate for aspiration. We will avoid getting IV contrast in view of abnormal renal function. GI/liver: By mouth diet if respiratory and neurologic status permits. If patient does not tolerate staying off BiPAP may have to keep him nothing by mouth for now. Renal/: Strict intake output, monitor and replete electro lites, follow BUN/ creatinine. Being diuresed with Lasix. Heme : Anemia noted. Has monoclonal gammopathy which has previously been evaluated by Dr. Shen. Endocrine: Continue Synthroid, may require increase in dose as TSH elevated at 11. Watch for hyperglycemia, SSI for glycemic control if needed. ID: Cultures negative so far. Zosyn for empiric antibiotic coverage. Vancomycin 1 dose. Will discontinue clindamycin at this time. Prophylaxis: PPI/SCDs/heparin. Patient being moved to the ICU. I had a long discussion with patient's family at bedside explaining to them current clinical status and plan of care and they voiced understanding and were agreeable. Discussed with Dr. Turner. I have updated Dr. Krishnan regarding the patient and he will be taking over his care in [facility] for critical care. Kristopher Morales MD Jun 07, 2016 13:39
--- NOTE | 2016-06-07 13:47 | HHI.PR ---
Subjective Subjective Remarks awake, lethargic, opens eyes, follows simple commands overnight, matilda called, pt. noted altered pt. now on BIPAP denies any CP, no SOB no fever following simple commands family at bsd-sister providing most details, multiple questions asked Review of Systems Constitutional Constitutional Remarks 12 point review of systems limited Vitals/Results Intake & Output 06/06/16 06/06/16 06/07/16 15:00 23:00 07:00 Intake Total 333 ml Output Total 200 ml 1160 ml 400 ml Balance -200 ml -1160 ml -67 ml Intake IV Total 333 ml Output Urine Total 200 ml 1160 ml 400 ml # Voids 2 2 # Bowel Movements 0 0 Vital Signs Vital Signs Date Time Temp Pulse Resp B/P Pulse Ox O2 Delivery O2 Flow Rate FiO2 06/07/16 12:00 98.0 71 17 149/72 99 06/07/16 08:28 95 35 06/07/16 08:00 97.6 76 18 146/78 98 06/07/16 04:00 97.7 91 16 147/67 93 06/07/16 03:25 98 35 06/07/16 00:43 98 35 06/07/16 00:43 98 BiPAP 35 06/07/16 00:00 99.6 77 18 156/73 98 06/06/16 23:40 87 06/06/16 22:20 96 35 06/06/16 20:00 96.6 64 20 139/65 95 06/06/16 16:40 98.6 188/78 96 Nasal Cannula 4 06/06/16 15:22 98.6 80 20 131/63 94 Room Air 06/06/16 14:07 Automatic Cuff 06/06/16 14:07 Nasal Cannula 06/06/16 14:03 98.1 68 20 175/84 96 Nasal Cannula 2 CBC/BMP: 06/06/16 1233 06/07/16 0357 Lab Results Laboratory Tests Test 06/06/16 06/06/16 06/06/16 06/07/16 14:00 21:30 21:33 03:57 Urine Color YELLOW Urine Turbidity CLEAR Urine pH 5.5 Urine Specific [place] 1.017 Urine Protein 100 mg/dL Urine Glucose (UA) NEG mg/dL Urine Ketones NEG mg/dL Urine Occult Blood SMALL Urine Nitrite NEG Urine Bilirubin NEG Urine Urobilinogen LESS THAN 2.0 MG/DL Urine Leukocyte Esterase NEG Urine RBC 4 /hpf Urine WBC 1 /hpf Urine Squamous Epithelial <1 /hpf Cells Urine Bacteria RARE /hpf Urine Hyaline Casts 1 /lpf Microscopic Urinalysis Comment CATH-CULTURE IND Blood Gas Puncture Site LT RADIAL Blood Gas Patient Temperature 98.6 Blood Gas HCO3 27 mmol/L Blood Gas Base Excess 0.8 mmol/L Blood Gas Oxygen Saturation 95 % Arterial Blood pH 7.28 Arterial Blood Partial 60 mmHg Pressure CO2 Arterial Blood Partial 104 mmHg Pressure O2 Arterial Blood Oxygen Content 12.4 Vol % Arterial Blood 1.8 % Carboxyhemoglobin Arterial Blood Methemoglobin 0.8 % Blood Gas Hemoglobin 9.1 G/DL Oxygen Delivery Device NASAL CANNULA Blood Gas Liter Flow 2 L/M Ammonia 40 MCMOL/L Thyroid Stimulating Hormone 11.000 uIU/ML 3rd Gen Random Cortisol 13.3 MCG/DL Sodium Level 142 MEQ/L Potassium Level 4.6 MEQ/L Chloride Level 108 MEQ/L Carbon Dioxide Level 28.6 MEQ/L Anion Gap 5 MEQ/L Blood Urea Nitrogen 33 MG/DL Creatinine 1.67 MG/DL Estimat Glomerular Filtration 40 ML/MIN Rate Random Glucose 97 MG/DL Calcium Level 7.7 MG/DL Test 06/07/16 12:45 Total Creatine Kinase 24 U/L Troponin I 0.02 NG/ML Microbiology Microbiology 06/06/16 Urine Culture - Preliminary, Resulted NO GROWTH IN 24 HOURS. Physical Exam General General Appearance: Well Developed, No Acute Distress, Comfortable Eyes Eye Exam: Pupils Equal, Pupils Reactive Ears & Nose Ears & Nose Exam: Nasal Mucosa [place] Throat Throat Exam: Oral Mucosa [place] & Moist Neck Neck Exam: Neck Supple, Trachea Midline Pulmonary Resp Exam: Decreased Bases, Poor Inspiratory Effort Cardiology CV Exam: Regular Gastrointestinal/Abdomen GI Exam: Soft, Non-Tender, Bowel Sounds Present, Non-Distended Genitourinary Exam: Clear Urine Remarks DANIELS Musculoskeletal MS Exam: Joints Intact Integumentary Skin Exam: Warm, Dry Extremeties Extremities Exam: No Edema, Pedal Pulses Palpable Neurologic Neuro Exam: Speech Clear, Moving All Extremities, No Focal Deficits VTE Prophylaxis VTE Prophylaxis Device: SCDs VTE Prophylaxis Meds: Heparin PUD Prophylasis PUD Remarks Pepcid Assessment/Plan Problem List: (1) Acute respiratory failure with hypoxia and hypercarbia (2) Hypertension (3) CHF (congestive heart failure) (4) Pneumonia (5) Renal insufficiency (6) Altered mental status (7) Paroxysmal a-fib (8) History of lumbar fusion (9) BPH (benign prostatic hyperplasia) (10) Depression Assessment/Plan 81-year-old male with history hypertension, renal insufficiency, cardiomegaly, paroxysmal A. fib. Presented to the emergency room with shortness of breath, altered mental status. Acute respiratory failure, hypoxia and hypercarbia. Patient currently on BiPAP. -ABG results reviewed, continue with BiPAP Patient to be transferred to ICU, Communications Strategist has been consulted to manage. Case discussed with Dr. Morales. -Continue with IV steroids, DuoNeb's Altered mental status, likely multifactorial, was noted hypoxic and hypercarbic , also elevated ammonia, possibly infectious processes, medication effect -Neuro checks Ammonia level was noted 40, will repeat in the morning Acute CHF, elevated B natruretic peptide -Lasix 40 mg IV twice a day 2-D echo has been ordered, results pending Consult cardiology for evaluation Continuous cardiac telemetry We will check serial cardiac enzymes and EKG Possible underlying pneumonia -Continue with empiric antibiotics -follow cultures Renal insufficiency, prior history of acute renal injury requiring hemodialysis Follow BMP closely Avoid nephrotoxic agents Hypertension, blood pressure initially elevated, now is stable Continue home medications History of lumbar decompression, uses walker at home Physical therapy for evaluation and treatment Heparin for DVT prophylaxis Pepcid for GI prophylaxis Laboratory workup to be repeated in the morning Patient pending transfer to ICU Condition guarded D/W pt and family in detail by attending and myself D/W RN D/W Dr. Mcknight D/W Dr. Morales This patient was seen by myself in Dr. Mcknight, this note is written on his behalf Problem Qualifiers (1) Hypertension: Qualified Code: I10 - Essential hypertension (2) CHF (congestive heart failure): Qualified Code: I50.9 - Acute congestive heart failure, unspecified congestive heart failure type (3) Pneumonia: Qualified Code: J18.9 - Pneumonia due to infectious organism, unspecified laterality, unspecified part of lung (4) Altered mental status: Qualified Code: R40.4 - Transient alteration of awareness (5) BPH (benign prostatic hyperplasia): Qualified Code: N40.0 - Benign prostatic hyperplasia, presence of lower urinary tract symptoms unspecified, unspecified morphology (6) Depression: Qualified Code: F32.9 - Depression, unspecified depression type Calista Huston [facility] Jun 07, 2016 13:47
[2016-06-07] MEDS ORDERED: MIDAZOLAM HCL 5 MG/ML VIAL (1 ML) ONE (14:21)
[2016-06-07] MEDS ORDERED: ROCURONIUM INJ 50 MG/5 ML VIAL ONE (14:22)
[2016-06-07] MEDS ORDERED: PROPOFOL 1000 MG/100 ML INJ 100 ML ONE (14:40)
--- NOTE | 2016-06-07 14:49 | EKG ---
Date Performed: 06/07/2016 Time Performed: 13:29:04 PTAGE: 81 years EKG: Sinus rhythm SEPTAL MYOCARDIAL INFARCTION , OF INDETERMINATE AGE ABNORMAL ECG PREVIOUS TRACING : 06/06/2016 12.21 No significant change from previous tracing noted. DOCTOR: Miguelito Mo Interpretating Date/Time 06/07/2016 14:48:27
[2016-06-07] MEDS ORDERED: CLINDAMYCIN INJ 300 MG in SODIUM CHLORIDE 0.9% INJ 100 ML IV SCH (15:00)
[2016-06-07] MEDS ORDERED: ONDANSETRON HCL 4 MG/2 ML VIAL IV PRN (15:15)
[2016-06-07] MEDS ORDERED: ACETAMINOPHEN 325 MG TAB PO PRN (15:15)
[2016-06-07] MEDS ORDERED: CHLORHEXIDINE GLUCONATE 2 % 1 PACK (2 CLOTHS) TOP PRN (15:15)
[2016-06-07] MEDS ORDERED: MISCELLANEOUS NURSING INFORMATION XX SCH (15:15)
--- NOTE | 2016-06-07 15:29 | RADRPT ---
EXAM DATE/TIME: 06/07/2016 15:16 [place] COMPARISON: No previous studies available for comparison. INDICATIONS : Endo tracheal and central line placement. MEDICAL HISTORY : Hypertension. Cerebrovascular disease. Stroke. SURGICAL HISTORY : None. ENCOUNTER: Subsequent ACUITY: 1 day PAIN SCORE: Non-responsive. LOCATION: Bilateral upper chest FINDINGS: Single view of the chest demonstrates the endotracheal tube, left subclavian central li ne and NG tube are in good position. Continued atelectasis right lung base. No visible pneumothorax or substantial pleural effusion. CONCLUSION: Tubes and catheters in good position. Consolidation right lung base likely atelecta sis. Denver Levy MD on June 07, 2016 at 15:26 Board Certified Radiologist. This report was verified electronically.
[2016-06-07] MEDS ORDERED: ATROPINE SULFATE 1 MG/10 ML SYRINGE ONE (15:31)
[2016-06-07] MEDS: hydrALAZINE HCL 20 MG/ML VIAL IV PUSH PRN ×2 (15:57→19:54)
[2016-06-07] MEDS: PIPERACIL-TAZO 2.25 GM PREMIX 50 ML IV SCH ×2 (15:57→19:55)
[2016-06-07 15:59] LABS: BLOOD GAS BASE EXCESS 3.7 mmol/L (-2-2); BLOOD GAS CARBOXYHEMOGLOBIN 1.5 % (0-4); BLOOD GAS HCO3 26 mmol/L (22-26); BLOOD GAS METHEMOGLOBIN 0.9 % (0-2); BLOOD GAS O2 HGB SATURATION 98 % (90-100); BLOOD GAS OXYGEN CONTENT 13.4 Vol % (12.0-20.0); BLOOD GAS PCO2 30 mmHg (38-42); BLOOD GAS PO2 384 mmHg (61-120); CRITICAL VALUE YES; OXYGEN DEVICE VENTILATOR; TEMP CORR TO 98.6
[2016-06-07] MEDS: fentaNYL DRIP 250 ML IV SCH ×2 (15:59→19:57)
[2016-06-07 16:00] LABS: DRAW SITE ART LINE; FIO2 100 %; STAT YES; VENT SETTINGS PRVC/AC
[2016-06-07] MEDS ORDERED: RESP: ALBUTEROL 2.5 MG/IPRATROPIUM 0.5 MG NEB (SCH) INH (16:00)
[2016-06-07] MEDS: RESP: ALBUTEROL 2.5 MG/IPRATROPIUM 0.5 MG NEB (SCH) NEB ×2 (16:04→21:03)
--- NOTE | 2016-06-07 16:26 | PD.PROCEDR ---
Procedure Note Procedure DX: Respiratory Failure (J96.00), Pneumonia OP: 1. Orotracheal Intubation (82715) 2. Insertion Left Subclavian Central Line (40554) 3. Insertion Right Radial Arterial Line (79034) Procedure: Bag mask ventilation. Versed 5 mg, rocuronium 100 mg iv. Intubated orally with 8.0 tube. Position confirmed with CO2 detection, breath sounds, improved sats to 100%. Left chest prepped and draped. Left subclavian vein cannulated with thin walled needle and wire advanced. Catheter passed over wire to 18 cm. Lumens aspirated and flushed. Dressing applied. Blane test normal right hand. Right wrist supinated, prepped and draped. Right radial artery cannulated with 20 gauge needle and wire advanced. Arterial line cannulated advanced to 3 cm and good waveform observed. Dressing applied. Circulation to right hnad intact after procedure. Everardo Krishnan MD Jun 07, 2016 16:26
[2016-06-07] MEDS: METOCLOPRAMIDE HCL 10 MG/2 ML VIAL IV SCH ×2 (16:35→21:48)
[2016-06-07] MEDS: hydrALAZINE HCL 50 MG TAB PO SCH ×2 (16:35→21:47)
[2016-06-07] MEDS: SENNOSIDES SYRUP 8.8 MG/5 ML CUP G-TUBE SCH (16:35)
[2016-06-07] MEDS: methylPREDNISolone SOD SUCC 125 MG/2 ML VIAL IV PUSH SCH (17:05)
--- NOTE | 2016-06-07 17:32 | EKG ---
Date Performed: 06/06/2016 Time Performed: 12:21:21 PTAGE: 81 years EKG: Sinus rhythm NONSPECIFIC T-WAVE ABNORMALITY BORDERLINE ECG NO PREVIOUS TRACING DOCTOR: Scott Gutiérrez Interpretating Date/Time 06/07/2016 17:29:16
[2016-06-07] MEDS ORDERED: methylPREDNISolone SOD SUCC 125 MG/2 ML VIAL IV PUSH SCH (18:00)
[2016-06-07 18:06] LABS: AUTOMATED NEUTROPHIL # 5.3 TH/MM3 (1.8-7.7); BASOPHIL % 0.5 % (0.0-2.0); EOSINOPHIL # 0.1 TH/MM3 (0-0.4); HEMATOCRIT 29.7 % (39.0-51.0); HEMO FLAGS DIFF FINAL; LYMPH % 13.4 % (9.0-44.0); LYMPHOCYTE # 0.9 TH/MM3 (1.0-4.8); MEAN CELL VOLUME 80.7 FL (80.0-100.0); MEAN CORPUSCULAR HEMOGLOBIN 25.3 PG (27.0-34.0); MEAN CORPUSCULAR HGB CONC 31.3 % (32.0-36.0); NEUT % 77.1 % (16.0-70.0); PLATELET COUNT 177 TH/MM3 (150-450); RED BLOOD COUNT 3.68 MIL/MM3 (4.50-5.90); RED CELL DISTRIBUTION WIDTH 16.1 % (11.6-17.2); WHITE BLOOD COUNT 6.8 TH/MM3 (4.0-11.0)
--- NOTE | 2016-06-07 18:17 | PD.ID.CON ---
History of Present Illness Service ID Consult Requested By Reason for Consult Evaluation and Mment of possible aspiration pneumonia. Primary Care Physician Everton Velazquez MD Diagnoses: History of Present Illness is a 81 y/o male of [place] descent with PMHx significant for chronic back pain, s/p lumbar fusion 6 months back. Reportedly his post op course was complicated and patient has had non resolution of back pain. He has been on several pain medications with some improvement. At baseline patient is mostly bed bound in last few months. Some reported improvement noted off and on (? using walker inconsistently). Over last 3-4 months patient has been increasingly sleepy possibly appears to pain medication related. Upon review of records it appears the patient had episode of nausea and vomiting which improved spontaneously. A day prior to admission the family noted increasing confusion and altered mental status as well as urinary incontinence. Due to some subjective fevers patients PCP was called who thought this was likely sepsis, infection related and referred patient to [facility] for further evaluation. Upon evaluation in the ED, patient was noted to have an elevated BNP, TSH of 11. Per ER physician's documentation he was also complaining of worsening back pain yesterday 8 out of 10 in intensity. Chest x-ray done in the ER suggested ? interstitial edema. Patient was initiated on IV Lasix and received 1 dose of Zosyn in the ER and was subsequently admitted under hospitalist's service to the floor. Patient reportedly deteriorated and a blood gas done showed CO2 of 60s while on BiPAP. In view of worsening respiratory distress patient was transferred under glycerin operator service to the ISC unit. At the time of my evaluation patient is in ISC, intubated, not on pressors, sedated. He has small, thin, lucas secretions and at times frothy pink secretions. No fevers documented in EMR but few sporadic low temps. BP is on hypertensive side. WBC is normal with minimal left hinton shift. ID consulted for evaluation and Mment of possible aspiration pneumonia in setting of CO2 narcosis, ? sleep apnea. Discussed with about possibility of lumbar spine fusion related infection. I was informed some workup has been done recently details not known other than a CT L spine was normal. Review of Systems ROS Limitations: Intubated Past Family Social History Allergies: Coded Allergies: Amoxicillin (Verified Allergy, Severe, Hives, 06/06/16) Ciprofloxacin (Verified Allergy, Severe, Hives, 06/06/16) Past Medical History Hypertension Hypothyroidism ?Sleep apnea chronic back pain Monoclonal gammopathy of unknown significance for which he has seen Dr. Shen. Past Surgical History Brain surgery 25 yrs ago benign tumor removal Lumbar fusion Reported Medications Reported Meds & Active Scripts Active Reported Prolia Inj (Denosumab) 60 Mg/Ml Inj 60 Mg SQ Q180D Synthroid (Levothyroxine Sodium) 50 Mcg Tab 50 Mcg PO DAILY Ginkgo Biloba 60 Mg Cap 60 Mg PO DAILY Multivitamin Adults (Multiple Vitamins W/ Minerals) 1 Tab 1 Tab PO DAILY Testosterone Cypionate Inj (Testosterone Cypionate) Unknown Strength Inj Unknown Dose IM Q14D Percocet (Oxycodone-Acetaminophen) 10-325 mg Tab 1 Tab PO BID PRN Lisinopril 10 Mg Tab 10 Mg PO DAILY Protonix (Pantoprazole Sodium) 20 Mg Tab 20 Mg PO DAILY Metoprolol Succinate ER 24 HR (Metoprolol Succinate) 50 Mg Tab 75 Mg PO DAILY Flomax (Tamsulosin HCl) 0.4 Mg Cap 0.8 Mg PO HS Celexa (Citalopram Hydrobromide) 20 Mg Tab 20 Mg PO DAILY Prednisone 5 Mg Tab 7.5 Mg PO DAILY Oxycontin (Oxycodone HCl) 20 Mg Tab 20 Mg PO Q12HR Active Ordered Medications Current Medications Medications (Trade) Dose Ordered Sig/Mauro Route Start Time Stop Time Status Last Admin (NS Flush) 2 ml UNSCH PRN IV FLUSH 06/06/16 15:30 06/06/16 17:00 (NS Flush) 2 ml BID IV FLUSH 06/06/16 21:00 06/07/16 19:55 (Zofran Inj) 4 mg Q6H PRN IVP 06/06/16 15:30 (Dulcolax Supp) 10 mg DAILY PRN RECTAL 06/06/16 15:30 (Colace) 100 mg Q12HR PO 06/06/16 21:00 06/07/16 19:55 (Milk Of Magnesia Liq) 30 ml Q12H PRN PO 06/06/16 15:30 (Heparin Inj) 5,000 units Q12H SQ 06/06/16 16:00 06/07/16 15:57 Naloxone HCl 0.4 mg 0.4 mg UNSCH PRN IV 06/06/16 15:30 (Zosyn 2.25 Gm Premix) 50 ml @ 100 mls/hr Q6H IV 06/07/16 14:00 06/07/16 19:55 (Lasix Inj) 40 mg BID@09,18 IV PUSH 06/07/16 12:15 06/07/16 17:05 (Synthroid) 50 mcg DAILY@06 PO 06/08/16 06:00 (Flomax) 0.8 mg HS PO 06/07/16 21:00 (SoluMEDROL INJ) 60 mg Q6HR IV PUSH 06/07/16 18:00 06/07/16 17:05 Chlorhexidine Gluconate 15 ml 15 ml BID@08,20 MT 06/07/16 20:00 06/07/16 19:55 Propofol 100 ml @ 0 mls/hr TITRATE IV 06/07/16 15:15 06/07/16 19:56 (fentaNYL DRIP) 250 ml @ 0 mls/hr TITRATE IV 06/07/16 15:15 06/07/16 19:57 (Tylenol) 650 mg Q6H PRN PO 06/07/16 15:15 (Protonix Inj) 40 mg DAILY IV 06/07/16 17:30 06/07/16 19:55 (Reglan Inj) 5 mg Q6H IV 06/07/16 17:00 06/07/16 16:35 (Senna Liq) 17.6 mg Q12H G-TUBE 06/07/16 16:00 06/07/16 16:35 Miscellaneous Information 1 Q361D XX 06/07/16 15:15 06/07/16 15:15 (Chlorhexidine 2% Cloth) 3 pack Taper DAILY@04 TOP 06/08/16 04:00 06/04/17 03:59 (Chlorhexidine 2% Cloth) 3 pack UNSCH PRN TOP 06/07/16 15:15 (Apresoline Inj) 10 mg Q2H PRN IV PUSH 06/07/16 15:30 06/07/16 19:54 (Apresoline) 50 mg Q8HR PO 06/07/16 15:30 06/07/16 16:35 (Lopressor) 50 mg Q12HR PO 06/07/16 21:00 (fentaNYL INJ) 100 mcg Q3H PRN IV PUSH 06/07/16 15:30 06/07/16 16:36 Family History Alcohol Use: Yes (daily) Tobacco Use: No Substance Use: No Social History Could not be obtained. Of [place] descent details of dates not known. Has children. Physical Exam Vital Signs Vital Signs Date Time Temp Pulse Resp B/P Pulse Ox O2 Delivery O2 Flow Rate FiO2 06/07/16 16:04 100 60 06/07/16 14:32 100 100 06/07/16 12:00 98.0 71 17 149/72 99 06/07/16 08:28 95 35 06/07/16 08:00 97.6 76 18 146/78 98 06/07/16 04:00 97.7 91 16 147/67 93 06/07/16 03:25 98 35 06/07/16 00:43 98 35 06/07/16 00:43 98 BiPAP 35 06/07/16 00:00 99.6 77 18 156/73 98 06/06/16 23:40 87 06/06/16 22:20 96 35 06/06/16 20:00 96.6 64 20 139/65 95 Physical Exam GENERAL: This is a well-nourished, well-developed patient, in no apparent distress. SKIN: No rashes, ecchymoses or lesions. Cool and dry. HEAD: Atraumatic. Normocephalic. No temporal or scalp tenderness. EYES: Pupils equal round and reactive. Extraocular motions intact. No scleral icterus. No injection or drainage. ENT: Intubated NECK: Trachea midline. Supple, nontender, no meningeal signs. CARDIOVASCULAR: RRR RESPIRATORY: Clear to auscultation. Breath sounds equal bilaterally. GASTROINTESTINAL: Abdomen soft, non-tender, nondistended. MUSCULOSKELETAL: Extremities without clubbing, cyanosis, or edema. NEUROLOGICAL: Sedated Psych: could not be assessed IV line sites with no e.o infection. Laboratory Laboratory Tests Test 06/06/16 06/06/16 06/07/16 06/07/16 21:30 21:33 03:57 12:45 Blood Gas Puncture Site LT RADIAL Blood Gas Patient Temperature 98.6 Blood Gas HCO3 27 Blood Gas Base Excess 0.8 Blood Gas Oxygen Saturation 95 Arterial Blood pH 7.28 Arterial Blood Partial 60 Pressure CO2 Arterial Blood Partial 104 Pressure O2 Arterial Blood Oxygen Content 12.4 Arterial Blood 1.8 Carboxyhemoglobin Arterial Blood Methemoglobin 0.8 Blood Gas Hemoglobin 9.1 Oxygen Delivery Device NASAL CANNULA Blood Gas Liter Flow 2 Ammonia 40 Thyroid Stimulating Hormone 11.000 3rd Gen Random Cortisol 13.3 Sodium Level 142 Potassium Level 4.6 Chloride Level 108 Carbon Dioxide Level 28.6 Anion Gap 5 Blood Urea Nitrogen 33 Creatinine 1.67 Estimat Glomerular Filtration 40 Rate Random Glucose 97 Calcium Level 7.7 Total Creatine Kinase 24 Troponin I 0.02 B-Type Natriuretic Peptide 997 Test 06/07/16 06/07/16 06/07/16 13:40 15:00 17:55 Blood Gas Puncture Site ART LINE Blood Gas Patient Temperature 98.6 Blood Gas HCO3 26 Blood Gas Base Excess 3.7 Blood Gas Oxygen Saturation 98 Arterial Blood pH 7.55 Arterial Blood Partial 30 Pressure CO2 Arterial Blood Partial 384 Pressure O2 Arterial Blood Oxygen Content 13.4 Arterial Blood 1.5 Carboxyhemoglobin Arterial Blood Methemoglobin 0.9 Blood Gas Hemoglobin 9.0 Oxygen Delivery Device VENTILATOR Blood Gas Ventilator Setting PRVC/AC Blood Gas Inspired Oxygen 100 Nasal Screen MRSA (PCR) NEGATIVE White Blood Count 6.8 Red Blood Count 3.68 Hemoglobin 9.3 Hematocrit 29.7 Mean Corpuscular Volume 80.7 Mean Corpuscular Hemoglobin 25.3 Mean Corpuscular Hemoglobin 31.3 Concent Red Cell Distribution Width 16.1 Platelet Count 177 Mean Platelet Volume 8.1 Neutrophils (%) (Auto) 77.1 Lymphocytes (%) (Auto) 13.4 Monocytes (%) (Auto) 8.0 Eosinophils (%) (Auto) 1.0 Basophils (%) (Auto) 0.5 Neutrophils # (Auto) 5.3 Lymphocytes # (Auto) 0.9 Monocytes # (Auto) 0.5 Eosinophils # (Auto) 0.1 Basophils # (Auto) 0.0 CBC Comment DIFF FINAL Differential Comment Date/Time Procedure Status Source Growth 06/07/16 16:00 Gram Stain Received Sputum Endotracheal Pending 06/07/16 16:00 Sputum Culture Received Sputum Endotracheal Pending 06/06/16 14:00 Urine Culture - Preliminary Resulted Urine Catheterized Urine NO GROWTH IN 24 HOURS. 06/06/16 12:33 Aerobic Blood Culture - Preliminary Resulted Blood Peripheral NO GROWTH IN 1 DAY 06/06/16 12:33 Anaerobic Blood Culture - Preliminary Resulted Blood Peripheral NO GROWTH IN 1 DAY Result Diagram: 06/07/16 1755 06/07/16 0357 Imaging Last Impressions Chest X-Ray 06/07/16 0000 Signed Impressions: Service Date/Time: May 15:16 - CONCLUSION: Tubes and catheters in good position. Consolidation right lung base likely atelectasis. Denver Levy MD Head CT 06/06/16 0000 Signed Impressions: Service Date/Time: Monday, June 06, 2016 17:29 - CONCLUSION: Left frontal lobe encephalomalacia. Otherwise unremarkable evaluation of the brain. There is no evidence of acute infarct, hemorrhage, mass or edema. Left maxillary sinus calcification. Danial Alfaro MD Assessment and Plan Assessment and Plan Possible aspiration pneumonitis/pneumonia CO2 narcosis (sleep apnea, pain meds, hypothyroidism contributing factors) Acute metabolic encephalopathy: CO2 narcosis, hypothyroidism, ? infection ? meningitis related to lumbar spine fusion surgery site. s/p lumbar spine fusion MGUS by history. Encephalomalacia on CT imaging Recs: Continue Zosyn IV (indication: aspiration PNA) Check Procalcitonin (will help differentiate between infection vs non infectious causes of infiltrates, also baseline to help with deescalation) Follow 2D ECHO Follow cultures Follow clinically. d/w No family in room. Lala Morales MD Jun 07, 2016 18:17
[2016-06-07] MEDS: TAMSULOSIN HCL 0.4 MG CAP PO SCH (19:55)
[2016-06-07] MEDS: CHLORHEXIDINE 0.12% (ORAL KIT) 15 ML CUP MT SCH (19:55)
[2016-06-07] MEDS: PANTOPRAZOLE SODIUM 40 MG VIAL IV SCH (19:55)
[2016-06-07] MEDS: METOPROLOL TARTRATE 50 MG TAB PO SCH (19:56)
[2016-06-07] MEDS: PROPOFOL 1000 MG/100 ML INJ 100 ML IV SCH (19:56)
--- NOTE | 2016-06-07 20:14 | RADRPT ---
EXAM DATE/TIME: 06/07/2016 17:02 [facility] COMPARISON: No previous studies available for comparison. INDICATIONS : Bilateral leg swelling. MEDICAL HISTORY : Hypertension. Emphysema. Benign prostatic hyperplasia, (BPH) Afib. Gastrointestinal ulcer. Renal fail ure. Osteoporosis. Depression. Chronic back pain. SURGICAL HISTORY : Cataract surgery. Spinal fusion T1-T5. Brain surgery removal of benign tumor. ENCOUNTER: Initial ACUITY: 1 day PAIN SCORE: Non-responsive LOCATION: Bilateral leg. TECHNIQUE: Venous ultrasound of the left and right leg was performed from the inguinal ligament to the proximal calf. Real-time, color Doppler and spectral tracing, compression and augmentation techniques were us ed. FINDINGS: RIGHT LEG: There is normal compressibility of the deep venous system from the inguinal region to the proximal ca lf. No echogenic clot is seen in the lumen of the common femoral, femoral, popliteal, and posterior tibial veins. There is a normal response of the venous system to proximal and distal augmentation an d respiration. LEFT LEG: There is normal compressibility of the deep venous system from the inguinal region to the proximal ca lf. No echogenic clot is seen in the lumen of the common femoral, femoral, popliteal, and posterior tibial veins. There is a normal response of the venous system to proximal and distal augmentation an d respiration. CONCLUSION: Normal examination. Misbah Sanchez MD on June 07, 2016 at 20:12 Board Certified Radiologist. This report was verified electronically.
[2016-06-07] MEDS ORDERED: FAMOTIDINE 20 MG/2 ML VIAL IV PUSH SCH (21:00)
--- NOTE | 2016-06-07 22:21 | EKG ---
Date Performed: 06/07/2016 Time Performed: 18:36:43 PTAGE: 81 years EKG: SINUS BRADYCARDIA WITH MARKED SINUS ARRHYTHMIA NONSPECIFIC T-WAVE ABNORMALITY BORDERLINE EC G PREVIOUS TRACING : 06/07/2016 13.29 Compared to previous tracing, heart rate has slowed. DOCTOR: Miguelito Mo Interpretating Date/Time 06/07/2016 22:20:36
[2016-06-08] VITALS (18 sets, daily range): BP systolic 110–155; BP diastolic 44–73; PULSE 53–100; RESP 14–20; TEMP 98–98.7; O2SAT 94–99
[2016-06-08] MEDS: methylPREDNISolone SOD SUCC 125 MG/2 ML VIAL IV PUSH SCH ×3 (00:26→17:44)
[2016-06-08 00:58] LABS: CREATINE KINASE 20 U/L (39-308)
[2016-06-08] MEDS: PIPERACIL-TAZO 2.25 GM PREMIX 50 ML IV SCH ×4 (02:16→19:47)
[2016-06-08] MEDS: hydrALAZINE HCL 20 MG/ML VIAL IV PUSH PRN (02:16)
[2016-06-08] MEDS: PROPOFOL 1000 MG/100 ML INJ 100 ML IV SCH ×2 (03:17→07:45)
[2016-06-08] MEDS: RESP: ALBUTEROL 2.5 MG/IPRATROPIUM 0.5 MG NEB (SCH) NEB ×4 (03:33→21:01)
[2016-06-08] MEDS: CHLORHEXIDINE GLUCONATE 2 % 1 PACK (2 CLOTHS) TOP SCH (03:35)
[2016-06-08] MEDS: SENNOSIDES SYRUP 8.8 MG/5 ML CUP G-TUBE SCH ×2 (03:35→15:56)
[2016-06-08] MEDS: HEPARIN SODIUM - SQ 10,000 UNITS/ML VIAL SQ SCH ×2 (03:35→15:54)
[2016-06-08] MEDS: METOCLOPRAMIDE HCL 10 MG/2 ML VIAL IV SCH ×4 (03:35→23:11)
[2016-06-08 04:55] LABS: BLOOD GAS BASE EXCESS -0.5 mmol/L (-2-2); BLOOD GAS CARBOXYHEMOGLOBIN 1.3 % (0-4); BLOOD GAS HCO3 23 mmol/L (22-26); BLOOD GAS O2 HGB SATURATION 95 % (90-100); BLOOD GAS OXYGEN CONTENT 13.3 Vol % (12.0-20.0); BLOOD GAS PCO2 35 mmHg (38-42); BLOOD GAS PO2 88 mmHg (61-120); BLOOD GAS TOTAL HGB 9.9 G/DL (12.0-16.0); CRITICAL VALUE NO; OXYGEN DEVICE VENTILATOR; TEMP CORR TO 98.6
[2016-06-08 04:56] LABS: DRAW SITE ART LINE; FIO2 40 %
[2016-06-08 04:57] LABS: STAT NO
[2016-06-08 05:31] LABS: AUTOMATED NEUTROPHIL # 4.6 TH/MM3 (1.8-7.7); HEMATOCRIT 30.5 % (39.0-51.0); HEMO FLAGS DIFF FINAL; LYMPH % 5.7 % (9.0-44.0); LYMPHOCYTE # 0.3 TH/MM3 (1.0-4.8); MEAN CORPUSCULAR HGB CONC 31.3 % (32.0-36.0); MONO % 1.1 % (0.0-8.0); NEUT % 93.2 % (16.0-70.0); PLATELET COUNT 188 TH/MM3 (150-450); RED BLOOD COUNT 3.82 MIL/MM3 (4.50-5.90); RED CELL DISTRIBUTION WIDTH 16.8 % (11.6-17.2); WHITE BLOOD COUNT 4.9 TH/MM3 (4.0-11.0)
[2016-06-08 05:48] LABS: ALT (GPT) 15 U/L (12-78); ANION GAP 14 MEQ/L (5-15); AST (GOT) 4 U/L (15-37); BICARBONATE 23.3 MEQ/L (21.0-32.0); BLOOD UREA NITROGEN 40 MG/DL (7-18); CHLORIDE 106 MEQ/L (98-107); GLOMERULAR FILTRATION RATE 35 ML/MIN (>89); POTASSIUM 3.8 MEQ/L (3.5-5.1); SODIUM (NA) 143 MEQ/L (136-145)
[2016-06-08 05:50] LABS: ALKALINE PHOSPHATASE 73 U/L (45-117); TOTAL BILIRUBIN ADULT 0.8 MG/DL (0.2-1.0)
[2016-06-08] MEDS: hydrALAZINE HCL 50 MG TAB PO SCH ×3 (06:00→22:00)
[2016-06-08] MEDS: LEVOTHYROXINE SODIUM 50 MCG TAB PO SCH (06:26)
[2016-06-08] MEDS: CHLORHEXIDINE 0.12% (ORAL KIT) 15 ML CUP MT SCH ×2 (08:00→19:48)
[2016-06-08] MEDS ORDERED: LISINOPRIL 10 MG TAB PO SCH (09:00)
[2016-06-08] MEDS: SODIUM CHLORIDE 0.9% FLUSH 10 ML FLUSH IV FLUSH SCH ×2 (09:00→19:48)
[2016-06-08] MEDS: FUROSEMIDE 40 MG/4 ML VIAL IV PUSH SCH (09:00)
[2016-06-08] MEDS: DOCUSATE SODIUM 100 MG CAP PO SCH ×2 (09:00→19:48)
[2016-06-08] MEDS: METOPROLOL TARTRATE 50 MG TAB PO SCH ×2 (09:00→19:48)
[2016-06-08] MEDS: PANTOPRAZOLE SODIUM 40 MG VIAL IV SCH (09:00)
[2016-06-08] MEDS ORDERED: METOPROLOL SUCCINATE 25 MG EXTENDED RELEASE TAB PO SCH (09:00)
--- NOTE | 2016-06-08 09:04 | HHI.CCPN ---
Subjective Remarks/Hospital Course 06/07: 81-year-old male with a medical history significant for chronic back pain for which she had a lumbar fusion done 6 months ago with a complicated postop course with no resolution of his back pain and since the last 3-4 months has been on OxyContin and Percocet for pain control however has been gradually improving in terms of his physical performance and walking with a walker. Family notes that he has been sleeping a lot for the last 3-4 months and this has coincided with his narcotic use including OxyContin and Percocet around that time. He was in his usual state of health until about a week back when he had a few episodes of nausea vomiting from an upset stomach according to his family. He appeared to have improved from that however yesterday morning around 10 AM family noticed he was confused and had some altered mental status. He reportedly also had a couple of episodes of urinary incontinence yesterday morning. He had been having some subjective fevers and was taken to see Dr. Velazquez his primary care physician. Dr. Velazquez felt patient was having delirium from an infection and referred him to the ER at [place]. Patient was noted to have an elevated BNP, TSH of 11. Chest x-ray done in the ER suggested interstitial edema. Patient was initiated on IV Lasix and received 1 dose of Zosyn in the ER and was subsequently admitted by [facility] service to the floor. Last night he had some respiratory distress and ABG done revealed acute respiratory acidosis with PCO2 in the 60s and he was started on BiPAP with settings of +12/+5 FiO2 35% which he has been tolerating well. Per ER physician's documentation he was also complaining of worsening back pain yesterday 8 out of 10 in intensity. In view of worsening respiratory distress requiring BiPAP and acute respiratory acidosis and altered mental status, critical care consult was requested by [facility] as well as ICU transfer. I evaluated the patient immediately on being notified while he was on the floor. At the time of my evaluation patient was on BiPAP with full facemask. He was awake and alert and following commands. He denied any chest pain. Most of the history was obtained by discussion with patient's family at the bedside. Of note patient's family acknowledges that he snores when he lays flat at home and may have sleep apnea though has not had any formal evaluation for that. He was evaluated by Dr. Garner about 2 years ago who did not find any major cardiovascular issues at that time. I do not have the details of that evaluation. 06/08: Gas exchange improved. Warm, well perfused. Urine acceptable; residual KEKE should resolve. CVP 8-10. BNP elevated. Objective Vital Signs Date Time Temp Pulse Resp B/P Pulse Ox O2 Delivery O2 Flow Rate FiO2 06/08/16 08:38 97 40 06/08/16 06:00 69 06/08/16 04:00 98.7 14 143/46 06/07/16 19:00 Mechanical Ventilator 06/06/16 16:40 4 Intake and Output 06/07/16 06/07/16 06/08/16 08:00 16:00 00:00 Intake Total 333 ml 390 ml Output Total 400 ml 2850 ml Balance -67 ml -2460 ml Result Diagram: 06/08/16 0500 06/08/16 0500 Other Results Laboratory Tests Test 06/07/16 06/08/16 13:40 04:44 Blood Gas Puncture Site ART LINE ART LINE Blood Gas Patient Temperature 98.6 98.6 Blood Gas HCO3 26 mmol/L 23 mmol/L (22-26) (22-26) Blood Gas Base Excess 3.7 mmol/L -0.5 mmol/L (-2-2) (-2-2) Blood Gas Oxygen Saturation 98 % (90-100) 95 % (90-100) Arterial Blood pH 7.55 7.44 (7.380-7.420) (7.380-7.420) Arterial Blood Partial 30 mmHg (38-42) 35 mmHg (38-42) Pressure CO2 Arterial Blood Partial 384 mmHg 88 mmHg Pressure O2 (61-120) (61-120) Arterial Blood Oxygen Content 13.4 Vol % 13.3 Vol % (12.0-20.0) (12.0-20.0) Arterial Blood 1.5 % (0-4) 1.3 % (0-4) Carboxyhemoglobin Arterial Blood Methemoglobin 0.9 % (0-2) 1.0 % (0-2) Blood Gas Hemoglobin 9.0 G/DL 9.9 G/DL (12.0-16.0) (12.0-16.0) Oxygen Delivery Device VENTILATOR VENTILATOR Blood Gas Ventilator Setting PRVC/AC SEE COMMENT Blood Gas Inspired Oxygen 100 % 40 % Imaging Last Impressions Chest X-Ray 06/06/16 1239 Signed Impressions: Service Date/Time: Monday, June 06, 2016 12:50 - CONCLUSION: 1. Mild perihilar and lower lung zone interstitial opacity of uncertain chronicity. In the appropriate clinical setting this could represent mild interstitial edema. 2. Mild enlargement of the cardiac silhouette. Misbah Horne MD Head CT 06/06/16 0000 Signed Impressions: Service Date/Time: Monday, June 06, 2016 17:29 - CONCLUSION: Left frontal lobe encephalomalacia. Otherwise unremarkable evaluation of the brain. There is no evidence of acute infarct, hemorrhage, mass or edema. Left maxillary sinus calcification. Danial Alfaro MD Objective Remarks Physical Exam Narrative GENERAL: Well-developed elderly male patient laying in bed on BiPAP with full facemask. SKIN: Focused skin assessment warm/dry. HEAD: Atraumatic. Normocephalic. EYES: Pupils equal and round. No scleral icterus. No injection or drainage. ENT: No nasal bleeding or discharge. Mucous membranes pink and moist. NECK: Trachea midline. No JVD. CARDIOVASCULAR: Regular rate and rhythm. No JVD. Bradycardia intermittently to 48. RESPIRATORY: Few scattered rhonchi, no wheezing. Breath sounds equal bilaterally. GASTROINTESTINAL: Abdomen soft, non-tender, nondistended. Hepatic and splenic margins not palpable. BS active. BACK: No CVA tenderness. No rash. There is a lower lumbar spine midline scar. MUSCULOSKELETAL: No obvious deformities. No clubbing. No cyanosis. No edema. Well perfused. NEUROLOGICAL: Awake and alert, following commands on vent. Motor grossly within normal limits. He understands Croatian language well. A/P Assessment and Plan 81-year-old male with: Encephalopathy which is probably multifactorial -Delirium -secondary to CO2 retention secondary to narcotics in the setting of sleep apnea and possible infection Acute respiratory failure requiring requiring intubation and mechanical ventilation. Suspected pulmonary edema versus aspiration pneumonia Hypothyroidism KEKE Chronic back pain on narcotics Plan: Neuro: Hold long-acting narcotics in view of altered mental status and CO2 retention. If required will resume Percocet for back pain as needed. Follow neuro status. Head CT done on 06/06 was negative for bleed. Cardiovascular: Being diuresed with Lasix. Awaiting 2-D echo. Elevated proBNP noted. Cardiology consult already requested by Dr. Turner. EKG on admission unremarkable with sinus rhythm and nonspecific ST-T changes. Serial cardiac enzymes ordered and pending at this time. Pulmonary: PRVC, wean to extubate. Bronchodilators as needed. He has been initiated on IV Solu-Medrol though does not have a significant history of COPD and will plan on tapering rapidly. GI/liver: NG to LIS. Renal/: Strict intake output, monitor and replete electro lites, follow BUN/ creatinine. Being diuresed with Lasix. Heme : Anemia noted. Has monoclonal gammopathy which has previously been evaluated by Dr. Shen. Endocrine: Continue Synthroid, may require increase in dose as TSH elevated at 11. Watch for hyperglycemia, SSI for glycemic control if needed. ID: Cultures negative so far. Zosyn for empiric antibiotic coverage. Vancomycin 1 dose. Will discontinue clindamycin at this time. Adjust per ID service. Prophylaxis: PPI/SCDs/heparin. Overall impression: Much improved respiratory function. Hemodynamics acceptable. Suspect chronic aspiration as he gurgles when he swallows. Will extubate soon. Everardo Krishnan MD Jun 08, 2016 09:04
--- NOTE | 2016-06-08 09:19 | RADRPT ---
EXAM DATE/TIME: 06/08/2016 08:56 [facility] COMPARISON: CHEST SINGLE AP, June 07, 2016, 15:16. INDICATIONS : Short of breath MEDICAL HISTORY : None. SURGICAL HISTORY : None. ENCOUNTER: Initial ACUITY: 2 days PAIN SCORE: Non-responsive. LOCATION: Bilateral chest FINDINGS: Left subclavian line tip overlies the SVC. Endotracheal tube tip projects 2-1/2 cm above the karan. NG tube courses beneath the diaphragm. There is cardiomegaly and consolidation at the bases with bila teral effusions. CONCLUSION: No significant change has occurred. Dread Patricio MD on June 08, 2016 at 9:17 Board Certified Radiologist. This report was verified electronically.
--- NOTE | 2016-06-08 11:03 | HHI.IDPN ---
Subjective Subjective Remarks is a 81 y/o male of [place] descent with PMHx significant for chronic back pain, s/p lumbar fusion 6 months back. Reportedly his post op course was complicated and patient has had non resolution of back pain. He has been on several pain medications with some improvement. At baseline patient is mostly bed bound in last few months. Some reported improvement noted off and on (? using walker inconsistently). Over last 3-4 months patient has been increasingly sleepy possibly appears to pain medication related. Upon review of records it appears the patient had episode of nausea and vomiting which improved spontaneously. A day prior to admission the family noted increasing confusion and altered mental status as well as urinary incontinence. Due to some subjective fevers patients PCP was called who thought this was likely sepsis, infection related and referred patient to [facility] for further evaluation. Overnight events reviewed with RN. No fever No rash No diarrhea Opens eyes spontaneously. Follows simple commands. UO ok. Antibiotics Zosyn IV Lines Line sites with no e.o infection. Past Medical History reviewed. Allergies: Coded Allergies: Amoxicillin (Verified Allergy, Severe, Hives, 06/06/16) Ciprofloxacin (Verified Allergy, Severe, Hives, 06/06/16) Objective . Vital Signs Date Time Temp Pulse Resp B/P Pulse Ox O2 Delivery O2 Flow Rate FiO2 06/08/16 08:38 97 40 06/08/16 06:00 69 06/08/16 04:39 97 40 06/08/16 04:00 98.7 55 14 143/46 98 06/08/16 04:00 40 06/08/16 04:00 55 06/08/16 02:00 53 06/08/16 01:27 98 40 06/08/16 00:00 98.5 55 14 134/44 98 06/08/16 00:00 53 06/08/16 00:00 40 06/07/16 22:00 54 06/07/16 21:03 98 40 06/07/16 20:00 49 06/07/16 20:00 98.7 49 14 181/62 98 Automatic Cuff 06/07/16 20:00 40 06/07/16 19:00 98 Mechanical Ventilator 40 06/07/16 16:04 100 60 06/07/16 16:00 60 06/07/16 16:00 98.3 60 14 120/58 100 143/51 06/07/16 14:32 100 100 06/07/16 14:30 100 06/07/16 12:00 98.0 71 17 149/72 99 06/07/16 06/07/16 06/08/16 15:00 23:00 07:00 Intake Total 390 ml 436 ml Output Total 2850 ml 350 ml Balance -2460 ml 86 ml Intake IV Total 390 ml 436 ml Output Urine Total 2700 ml 350 ml Gastric Drainage Total 150 ml 0 ml # Bowel Movements 0 . Laboratory Tests Test 06/06/16 06/07/16 06/08/16 12:33 17:55 05:00 White Blood Count 9.5 TH/MM3 6.8 TH/MM3 4.9 TH/MM3 Red Blood Count 3.94 MIL/MM3 3.68 MIL/MM3 3.82 MIL/MM3 Hemoglobin 9.9 GM/DL 9.3 GM/DL 9.6 GM/DL Hematocrit 31.8 % 29.7 % 30.5 % Mean Corpuscular Volume 80.8 FL 80.7 FL 80.0 FL Mean Corpuscular Hemoglobin 25.1 PG 25.3 PG 25.0 PG Mean Corpuscular Hemoglobin 31.1 % 31.3 % 31.3 % Concent Red Cell Distribution Width 16.5 % 16.1 % 16.8 % Platelet Count 204 TH/MM3 177 TH/MM3 188 TH/MM3 Mean Platelet Volume 8.5 FL 8.1 FL 8.7 FL Neutrophils (%) (Auto) 87.8 % 77.1 % 93.2 % Lymphocytes (%) (Auto) 5.8 % 13.4 % 5.7 % Monocytes (%) (Auto) 5.8 % 8.0 % 1.1 % Eosinophils (%) (Auto) 0.2 % 1.0 % 0.0 % Basophils (%) (Auto) 0.4 % 0.5 % 0.0 % Neutrophils # (Auto) 8.4 TH/MM3 5.3 TH/MM3 4.6 TH/MM3 Lymphocytes # (Auto) 0.6 TH/MM3 0.9 TH/MM3 0.3 TH/MM3 Monocytes # (Auto) 0.6 TH/MM3 0.5 TH/MM3 0.1 TH/MM3 Eosinophils # (Auto) 0.0 TH/MM3 0.1 TH/MM3 0.0 TH/MM3 Basophils # (Auto) 0.0 TH/MM3 0.0 TH/MM3 0.0 TH/MM3 CBC Comment DIFF FINAL DIFF FINAL DIFF FINAL Differential Comment Laboratory Tests Test 06/06/16 06/06/16 06/06/16 06/06/16 12:20 12:23 12:33 21:33 B-Type Natriuretic Peptide 1259 PG/ML Lactic Acid Level 0.5 mmol/L Sodium Level 139 MEQ/L Potassium Level 4.7 MEQ/L Chloride Level 105 MEQ/L Carbon Dioxide Level 27.9 MEQ/L Anion Gap 6 MEQ/L Blood Urea Nitrogen 33 MG/DL Creatinine 1.58 MG/DL Estimat Glomerular Filtration 43 ML/MIN Rate Random Glucose 103 MG/DL Calcium Level 8.7 MG/DL Total Bilirubin 0.6 MG/DL Aspartate Amino Transf 8 U/L (AST/SGOT) Alanine Aminotransferase 18 U/L (ALT/SGPT) Alkaline Phosphatase 96 U/L Total Protein 6.8 GM/DL Albumin 3.3 GM/DL Ammonia 40 MCMOL/L Thyroid Stimulating Hormone 11.000 uIU/ML 3rd Gen Random Cortisol 13.3 MCG/DL Test 06/07/16 06/07/16 06/07/16 06/08/16 03:57 12:45 17:55 00:23 Sodium Level 142 MEQ/L Potassium Level 4.6 MEQ/L Chloride Level 108 MEQ/L Carbon Dioxide Level 28.6 MEQ/L Anion Gap 5 MEQ/L Blood Urea Nitrogen 33 MG/DL Creatinine 1.67 MG/DL Estimat Glomerular Filtration 40 ML/MIN Rate Random Glucose 97 MG/DL Calcium Level 7.7 MG/DL Total Creatine Kinase 24 U/L 20 U/L 20 U/L Troponin I 0.02 NG/ML 0.02 NG/ML LESS THAN 0.02 NG/ML B-Type Natriuretic Peptide 997 PG/ML 723 PG/ML Lactic Acid Level 0.6 mmol/L Procalcitonin 0.05 ng/mL Magnesium Level 2.0 MG/DL Test 06/08/16 05:00 Sodium Level 143 MEQ/L Potassium Level 3.8 MEQ/L Chloride Level 106 MEQ/L Carbon Dioxide Level 23.3 MEQ/L Anion Gap 14 MEQ/L Blood Urea Nitrogen 40 MG/DL Creatinine 1.87 MG/DL Estimat Glomerular Filtration 35 ML/MIN Rate Random Glucose 153 MG/DL Lactic Acid Level 0.9 mmol/L Calcium Level 7.5 MG/DL Phosphorus Level 2.2 MG/DL Magnesium Level 2.0 MG/DL Total Bilirubin 0.8 MG/DL Aspartate Amino Transf 4 U/L (AST/SGOT) Alanine Aminotransferase 15 U/L (ALT/SGPT) Alkaline Phosphatase 73 U/L Ammonia LESS THAN 10 MCMOL/L Total Protein 6.1 GM/DL Albumin 2.8 GM/DL Microbiology Date/Time Procedure Status Source Growth 06/06/16 12:33 Aerobic Blood Culture - Preliminary Resulted Blood Peripheral NO GROWTH IN 1 DAY 06/06/16 12:33 Anaerobic Blood Culture - Preliminary Resulted Blood Peripheral NO GROWTH IN 1 DAY 06/06/16 12:33 Aerobic Blood Culture - Preliminary Resulted Blood Peripheral NO GROWTH IN 1 DAY 06/06/16 12:33 Anaerobic Blood Culture - Preliminary Resulted Blood Peripheral NO GROWTH IN 1 DAY 06/06/16 14:00 Urine Culture - Final Complete Urine Catheterized Urine NO GROWTH IN 48 HOURS. 06/07/16 16:00 Gram Stain - Final Resulted Sputum Endotracheal 06/07/16 16:00 Sputum Culture Resulted Sputum Endotracheal Pending Imaging Last Impressions Chest X-Ray 06/08/16 0000 Signed Impressions: Service Date/Time: Wednesday, June 08, 2016 08:56 - CONCLUSION: No significant change has occurred. Dread Patricio MD Lower Extremity Ultrasound 06/07/16 0000 Signed Impressions: Service Date/Time: May 17:02 - CONCLUSION: Normal examination. Misbah Sanchez MD Head CT 06/06/16 0000 Signed Impressions: Service Date/Time: Monday, June 06, 2016 17:29 - CONCLUSION: Left frontal lobe encephalomalacia. Otherwise unremarkable evaluation of the brain. There is no evidence of acute infarct, hemorrhage, mass or edema. Left maxillary sinus calcification. Danial Alfaro MD Physical Exam GENERAL: This is a well-nourished, well-developed patient, in no apparent distress. SKIN: No rashes, ecchymoses or lesions. Cool and dry. HEAD: Atraumatic. Normocephalic. No temporal or scalp tenderness. EYES: Pupils equal round and reactive. Extraocular motions intact. No scleral icterus. No injection or drainage. ENT: Intubated NECK: Trachea midline. Supple, nontender, no meningeal signs. CARDIOVASCULAR: RRR RESPIRATORY: Clear to auscultation. Breath sounds equal bilaterally. GASTROINTESTINAL: Abdomen soft, non-tender, nondistended. MUSCULOSKELETAL: Extremities without clubbing, cyanosis, or edema. NEUROLOGICAL: Sedated Psych: could not be assessed IV line sites with no e.o infection. Assessment & Plan Remarks Possible aspiration pneumonitis/pneumonia CO2 narcosis (sleep apnea, pain meds, hypothyroidism contributing factors) Acute metabolic encephalopathy: CO2 narcosis, hypothyroidism, ? infection ? meningitis related to lumbar spine fusion surgery site. s/p lumbar spine fusion MGUS by history. Encephalomalacia on CT imaging Recs: Continue Zosyn IV (indication: aspiration PNA) Normal Procalcitonin less likely to be acute infection related. Patient is aspiration risk and ? chronic aspiration. If alternate explanation such as cardiac issues can explain pulm infiltrates ok to stop antibiotics in next day or two. Follow cultures Follow clinically. d/w Lala Regalado MD Jun 08, 2016 11:03
--- NOTE | 2016-06-08 11:38 | MB ---
cc: SEE DIANE M.D. DATE OF CONSULTATION 06/08/2016 CHIEF COMPLAINT Shortness of breath REQUESTING DOCTOR Mrs. Enciso IMPRESSION 1. Aspiration pneumonia 2. History of hypertension well controlled. 3. Relatively normal echocardiogram. 4. Chronic back pain status post extensive surgery in [place] last August. 5. History of renal insufficiency and acute kidney injury with renal failure last year following surgery. RECOMMENDATIONS Support. I have discussed with the family at great length that I do not believe that this is a primary cardiac issue. I have reviewed his echocardiogram. SUBJECTIVE The patient is currently intubated in the intensive care unit. He is [id number] with a history of hypertension, prior brain surgery in the distant past, chronic back pain following surgery last August in [place] for degenerative joint disease with multiple screws, he also has significant osteoporosis with chronic pain. He was taking narcotics. His narrative starts but 10 days ago when after eating a large salad, he developed vomiting and then a rattling noisy breathing. Yesterday, he presented to the emergency with shortness of breath and fever with mental status change. He subsequently was intubated because he could not protect his airway. He is currently awake, but does not follow commands. PAST MEDICAL HISTORY Remarkable for: 1. Hypertension 2. Prior brain surgery as above. 3. Very mild LVH. 4. History depression. 5. History of renal failure as above. 6. Gastroesophageal reflux disease. 7. He had a lumbar spine surgery as described. MEDICATIONS His medicines were: 1. Synthroid 2. Testosterone 3. Multiple vitamins 4. Gingko 5. Protonix 6. Metoprolol 7. Flomax 8. Celexa 9. Prednisone 10. OxyContin ALLERGIES He has no medication allergies. SOCIAL HISTORY He lives at home with his . I have spoken with his and his daughter. No known illicit's or illegal drug use, but was taking narcotics in the past. REVIEW OF SYSTEMS Obtained from family. GI: No hematemesis, melena, blood per rectum. RESPIRATORY: As above. NEUROLOGIC: History of brain tumor. EXAMINATION Blood pressure is currently 134/74, heart rate is 80. HEAD, EYES, EARS, NOSE, AND THROAT: Pupils are equal. NECK: Neck veins are not distended. LUNGS: The lungs have rhonchi bilaterally with decreased breath sounds. CARDIAC: Exam reveals no murmurs or gallops. ABDOMEN: Soft. EXTREMITIES: Without edema. He is moving all his extremities, obviously is intubated and cannot speak. LABORATORY DATA His white count 9500, hemoglobin 9.9, hematocrit 31. Chest x-ray, mild possible interstitial edema. It is read as enlargement of the cardiac silhouette, but I believe this is because it is a portable film. Cardiogram shows a sinus rhythm. DISCUSSION None MD PATRICIA Husain/NEISHA /10:07 AM /11:17 AM
--- NOTE | 2016-06-08 13:34 | HHI.PR ---
Subjective Subjective Remarks Patient required transfer to ICU on 06/07/2016 Was intubated yesterday, now extubated, has passed swallow eval Patient on oxygen per nasal cannula at 4 L with sats 94% Blood Pressure marginal, remains on Levophed Patient awake, oriented to self, others in place Slightly diaphoretic, no fever Denies any discomfort when asked and other family member at bedside Review of Systems Constitutional Constitutional Remarks 12 point review of systems limited Vitals/Results Intake & Output 06/07/16 06/07/16 06/08/16 15:00 23:00 07:00 Intake Total 390 ml 436 ml Output Total 2850 ml 350 ml Balance -2460 ml 86 ml Intake IV Total 390 ml 436 ml Output Urine Total 2700 ml 350 ml Gastric Drainage Total 150 ml 0 ml # Bowel Movements 0 Vital Signs Vital Signs Date Time Temp Pulse Resp B/P Pulse Ox O2 Delivery O2 Flow Rate FiO2 06/08/16 12:00 98.6 92 17 110/45 94 06/08/16 12:00 92 06/08/16 11:00 95 Nasal Cannula 4.00 06/08/16 10:55 40 06/08/16 10:50 96 Nasal Cannula 4 06/08/16 10:50 96 Nasal Cannula 4.00 06/08/16 10:45 97 40 06/08/16 10:45 Nasal Cannula 40 06/08/16 10:00 100 06/08/16 08:38 97 40 06/08/16 08:00 73 06/08/16 08:00 98.1 73 14 126/47 97 06/08/16 08:00 40 06/08/16 07:00 97 Mechanical Ventilator 40 06/08/16 06:00 69 06/08/16 04:39 97 40 06/08/16 04:00 98.7 55 14 143/46 98 06/08/16 04:00 40 06/08/16 04:00 55 06/08/16 02:00 53 06/08/16 01:27 98 40 06/08/16 00:00 98.5 55 14 134/44 98 06/08/16 00:00 53 06/08/16 00:00 40 06/07/16 22:00 54 06/07/16 21:03 98 40 06/07/16 20:00 49 4/13/17 20:00 98.7 49 14 181/62 98 Automatic Cuff 06/07/16 20:00 40 06/07/16 19:00 98 Mechanical Ventilator 40 06/07/16 16:04 100 60 06/07/16 16:00 60 06/07/16 16:00 98.3 60 14 120/58 100 143/51 06/07/16 14:32 100 100 06/07/16 14:30 100 CBC/BMP: 06/08/16 0500 06/08/16 0500 Lab Results Laboratory Tests Test 06/07/16 06/07/16 06/07/16 06/08/16 13:40 15:00 17:55 00:23 Blood Gas Puncture Site ART LINE Blood Gas Patient Temperature 98.6 Blood Gas HCO3 26 mmol/L Blood Gas Base Excess 3.7 mmol/L Blood Gas Oxygen Saturation 98 % Arterial Blood pH 7.55 Arterial Blood Partial 30 mmHg Pressure CO2 Arterial Blood Partial 384 mmHg Pressure O2 Arterial Blood Oxygen Content 13.4 Vol % Arterial Blood 1.5 % Carboxyhemoglobin Arterial Blood Methemoglobin 0.9 % Blood Gas Hemoglobin 9.0 G/DL Oxygen Delivery Device VENTILATOR Blood Gas Ventilator Setting PRVC/AC Blood Gas Inspired Oxygen 100 % Nasal Screen MRSA (PCR) NEGATIVE White Blood Count 6.8 TH/MM3 Red Blood Count 3.68 MIL/MM3 Hemoglobin 9.3 GM/DL Hematocrit 29.7 % Mean Corpuscular Volume 80.7 FL Mean Corpuscular Hemoglobin 25.3 PG Mean Corpuscular Hemoglobin 31.3 % Concent Red Cell Distribution Width 16.1 % Platelet Count 177 TH/MM3 Mean Platelet Volume 8.1 FL Neutrophils (%) (Auto) 77.1 % Lymphocytes (%) (Auto) 13.4 % Monocytes (%) (Auto) 8.0 % Eosinophils (%) (Auto) 1.0 % Basophils (%) (Auto) 0.5 % Neutrophils # (Auto) 5.3 TH/MM3 Lymphocytes # (Auto) 0.9 TH/MM3 Monocytes # (Auto) 0.5 TH/MM3 Eosinophils # (Auto) 0.1 TH/MM3 Basophils # (Auto) 0.0 TH/MM3 CBC Comment DIFF FINAL Differential Comment D-Dimer Quantitative (PE/DVT) 1.24 MG/L FEU Lactic Acid Level 0.6 mmol/L Total Creatine Kinase 20 U/L 20 U/L Troponin I 0.02 NG/ML LESS THAN 0.02 NG/ML B-Type Natriuretic Peptide 723 PG/ML Procalcitonin 0.05 ng/mL Magnesium Level 2.0 MG/DL Test 06/08/16 06/08/16 04:44 05:00 Blood Gas Puncture Site ART LINE Blood Gas Patient Temperature 98.6 Blood Gas HCO3 23 mmol/L Blood Gas Base Excess -0.5 mmol/L Blood Gas Oxygen Saturation 95 % Arterial Blood pH 7.44 Arterial Blood Partial 35 mmHg Pressure CO2 Arterial Blood Partial 88 mmHg Pressure O2 Arterial Blood Oxygen Content 13.3 Vol % Arterial Blood 1.3 % Carboxyhemoglobin Arterial Blood Methemoglobin 1.0 % Blood Gas Hemoglobin 9.9 G/DL Oxygen Delivery Device VENTILATOR Blood Gas Ventilator Setting SEE COMMENT Blood Gas Inspired Oxygen 40 % White Blood Count 4.9 TH/MM3 Red Blood Count 3.82 MIL/MM3 Hemoglobin 9.6 GM/DL Hematocrit 30.5 % Mean Corpuscular Volume 80.0 FL Mean Corpuscular Hemoglobin 25.0 PG Mean Corpuscular Hemoglobin 31.3 % Concent Red Cell Distribution Width 16.8 % Platelet Count 188 TH/MM3 Mean Platelet Volume 8.7 FL Neutrophils (%) (Auto) 93.2 % Lymphocytes (%) (Auto) 5.7 % Monocytes (%) (Auto) 1.1 % Eosinophils (%) (Auto) 0.0 % Basophils (%) (Auto) 0.0 % Neutrophils # (Auto) 4.6 TH/MM3 Lymphocytes # (Auto) 0.3 TH/MM3 Monocytes # (Auto) 0.1 TH/MM3 Eosinophils # (Auto) 0.0 TH/MM3 Basophils # (Auto) 0.0 TH/MM3 CBC Comment DIFF FINAL Differential Comment Sodium Level 143 MEQ/L Potassium Level 3.8 MEQ/L Chloride Level 106 MEQ/L Carbon Dioxide Level 23.3 MEQ/L Anion Gap 14 MEQ/L Blood Urea Nitrogen 40 MG/DL Creatinine 1.87 MG/DL Estimat Glomerular Filtration 35 ML/MIN Rate Random Glucose 153 MG/DL Lactic Acid Level 0.9 mmol/L Calcium Level 7.5 MG/DL Phosphorus Level 2.2 MG/DL Magnesium Level 2.0 MG/DL Total Bilirubin 0.8 MG/DL Aspartate Amino Transf 4 U/L (AST/SGOT) Alanine Aminotransferase 15 U/L (ALT/SGPT) Alkaline Phosphatase 73 U/L Ammonia LESS THAN 10 MCMOL/L Total Protein 6.1 GM/DL Albumin 2.8 GM/DL Microbiology Microbiology 06/07/16 Gram Stain - Final, Resulted 06/07/16 Sputum Culture - Preliminary, Resulted IMMATURE GROWTH - REINCUBATE Physical Exam General General Appearance: Well Developed, No Acute Distress, Comfortable Eyes Eye Exam: Pupils Equal, Pupils Reactive Ears & Nose Ears & Nose Exam: Nasal Mucosa [employer] Throat Throat Exam: Oral Mucosa [employer] & Moist Neck Neck Exam: Neck Supple, Trachea Midline Pulmonary Resp Exam: Decreased Bases, Poor Inspiratory Effort Cardiology CV Exam: Regular Gastrointestinal/Abdomen GI Exam: Soft, Non-Tender, Bowel Sounds Present, Non-Distended Genitourinary Exam: Clear Urine Remarks DANIELS Musculoskeletal MS Exam: Joints Intact Integumentary Skin Exam: Warm, Dry Extremeties Extremities Exam: No Edema, Pedal Pulses Palpable Neurologic Neuro Exam: Awake, Speech Clear, Moving All Extremities, No Focal Deficits VTE Prophylaxis VTE Prophylaxis Device: SCDs VTE Prophylaxis Meds: Heparin PUD Prophylasis PUD Remarks Pepcid Assessment/Plan Problem List: (1) Acute respiratory failure with hypoxia and hypercarbia (2) Hypertension (3) CHF (congestive heart failure) (4) Pneumonia (5) Renal insufficiency (6) Altered mental status (7) Paroxysmal a-fib (8) History of lumbar fusion (9) BPH (benign prostatic hyperplasia) (10) Depression Assessment/Plan 81-year-old male with history hypertension, renal insufficiency, cardiomegaly, paroxysmal A. fib. Presented to the emergency room with shortness of breath, altered mental status. Acute respiratory failure, hypoxia and hypercarbia. CO2 narcosis, was on long acting Patient initially on BiPAP, required transfer to ICU with travel med surg rn consultation, was intubated. 06/07/2016 Patient extubated 06/08, currently on oxygen of 4 L -Improved ABG -Continue with IV steroids, DuoNeb's Altered mental status, likely multifactorial, was noted hypoxic and hypercarbic , also elevated ammonia, possibly infectious processes, medication effect (on long acting narcotics) -Neuro checks Ammonia level was noted 40, now normal. -some improvement, avoid long acting narcotics Acute CHF, elevated B natruretic peptide. BNP trending down, diuresing well. -Appreciate cardiology input, evaluated per Dr. Garner. -Decrease Lasix to 20 mg IV twice a day, there is slight elevation in creatinine. Echocardiogram results noted, EF 55-60% Consult cardiology for evaluation, does not believe this is a cardiac-related issue. Continuous cardiac telemetry Serial cardiac enzymes negative. Pneumonia, possibly aspiration -Infectious disease has evaluated the patient, continue with Zosyn -Follow cultures, so far negative Renal insufficiency, prior history of acute renal injury requiring hemodialysis Creatinine slightly elevated, on diuretics. We'll decrease Lasix Avoid nephrotoxic agents Hypertension, blood pressure initially elevated, now is stable Now hypotensive, on pressor support Hold blood pressure medications -Continue with the Levophed drip History of lumbar decompression, uses walker at home Physical therapy for evaluation and treatment Heparin for DVT prophylaxis Pepcid for GI prophylaxis Laboratory workup reviewed, Patient to remain in ICU, some improvement today. Condition guarded D/W pt and family D/W RN D/W Dr. Mcknight This patient was seen by myself in Dr. Mcknight, this note is written on his behalf Problem Qualifiers (1) Hypertension: Qualified Code: I10 - Essential hypertension (2) CHF (congestive heart failure): Qualified Code: I50.9 - Acute congestive heart failure, unspecified congestive heart failure type (3) Pneumonia: Qualified Code: J18.9 - Pneumonia due to infectious organism, unspecified laterality, unspecified part of lung (4) Altered mental status: Qualified Code: R40.4 - Transient alteration of awareness (5) BPH (benign prostatic hyperplasia): Qualified Code: N40.0 - Benign prostatic hyperplasia, presence of lower urinary tract symptoms unspecified, unspecified morphology (6) Depression: Qualified Code: F32.9 - Depression, unspecified depression type Calista Huston [facility] Jun 08, 2016 13:34
[2016-06-08] MEDS: fentaNYL DRIP 250 ML IV SCH (15:54)
[2016-06-08] MEDS: NYSTATIN SUSP 500,000 U/5 ML CUP SWISH-SWAL SCH ×2 (17:44→19:48)
[2016-06-08] MEDS ORDERED: FUROSEMIDE 20 MG/2 ML VIAL IV PUSH SCH (18:00)
[2016-06-08] MEDS: TAMSULOSIN HCL 0.4 MG CAP PO SCH (19:48)
[2016-06-09] VITALS (14 sets, daily range): BP systolic 129–146; BP diastolic 45–92; PULSE 55–80; RESP 14–20; TEMP 98.1–99.7; O2SAT 96–100
[2016-06-09] MEDS: PIPERACIL-TAZO 2.25 GM PREMIX 50 ML IV SCH ×4 (02:13→20:14)
[2016-06-09] MEDS: RESP: ALBUTEROL 2.5 MG/IPRATROPIUM 0.5 MG NEB (SCH) NEB ×4 (04:00→21:03)
[2016-06-09] MEDS: SENNOSIDES SYRUP 8.8 MG/5 ML CUP G-TUBE SCH ×2 (04:08→16:53)
[2016-06-09] MEDS: CHLORHEXIDINE GLUCONATE 2 % 1 PACK (2 CLOTHS) TOP SCH (04:08)
[2016-06-09] MEDS: HEPARIN SODIUM - SQ 10,000 UNITS/ML VIAL SQ SCH ×2 (04:09→16:53)
[2016-06-09] MEDS: methylPREDNISolone SOD SUCC 125 MG/2 ML VIAL IV PUSH SCH (04:47)
[2016-06-09] MEDS: METOCLOPRAMIDE HCL 10 MG/2 ML VIAL IV SCH ×4 (04:47→23:38)
[2016-06-09] MEDS: LEVOTHYROXINE SODIUM 50 MCG TAB PO SCH (04:48)
[2016-06-09 05:11] LABS: BASOPHIL % 0.1 % (0.0-2.0); HEMATOCRIT 29.6 % (39.0-51.0); HEMO FLAGS DIFF FINAL; LYMPH % 4.9 % (9.0-44.0); LYMPHOCYTE # 0.6 TH/MM3 (1.0-4.8); MEAN CELL VOLUME 79.4 FL (80.0-100.0); MEAN CORPUSCULAR HEMOGLOBIN 25.4 PG (27.0-34.0); MONO % 2.7 % (0.0-8.0); NEUT % 92.3 % (16.0-70.0); PLATELET COUNT 199 TH/MM3 (150-450); RED BLOOD COUNT 3.73 MIL/MM3 (4.50-5.90); RED CELL DISTRIBUTION WIDTH 16.6 % (11.6-17.2); WHITE BLOOD COUNT 11.9 TH/MM3 (4.0-11.0)
[2016-06-09 05:47] LABS: CALCIUM-PROTEIN CORRECTED 7.6 MG/DL (8.5-10.1); MAGNESIUM 2.2 MG/DL (1.5-2.5); TOTAL BILIRUBIN ADULT 0.4 MG/DL (0.2-1.0)
--- NOTE | 2016-06-09 06:26 | RADRPT ---
EXAM DATE/TIME: 06/09/2016 04:33 [place] COMPARISON: CHEST SINGLE AP, June 08, 2016, 8:56. INDICATIONS : Shortness of breath, possible pulmonary disease. MEDICAL HISTORY : None. SURGICAL HISTORY : None. ENCOUNTER: Subsequent ACUITY: 3 days PAIN SCORE: Non-responsive. LOCATION: Bilateral chest FINDINGS: The cardiac silhouette is enlarged in transverse diameter. There is prominence of the central pulmona ry vasculature with indistinct vascular margins compatible with vascular congestion but no evidence o f overt failure. A left sided subclavian vein catheter is in place without pneumothorax with its tip in the superior vena cava. CONCLUSION: 1. Cardiomegaly and findings of vascular congestion without overt failure. The findings are improved when compared with the prior exam. Geoff Morris MD on June 09, 2016 at 6:24 Board Certified Radiologist. This report was verified electronically.
[2016-06-09] MEDS: hydrALAZINE HCL 50 MG TAB PO SCH ×3 (06:27→22:00)
[2016-06-09 07:09] LABS: BLOOD GAS VENOUS BASE EXCESS 0.9 mmol/L (-2-2); BLOOD GAS VENOUS HCO3 26 mmol/L (22-26); BLOOD GAS VENOUS O2 CONTENT 10.1 Vol % (9.0-17.0); BLOOD GAS VENOUS O2 HGB SAT 72 % (70-76); BLOOD GAS VENOUS PCO2 48 mmHg (44-48); BLOOD GAS VENOUS PO2 43 mmHg (35-40); BLOOD GAS VENOUS pH 7.35 (7.360-7.400); CRITICAL VALUE NO; DRAW SITE IV; LITER FLOW 1 L/M; OXYGEN DEVICE NASAL CANNULA; STAT NO; TEMP CORR TO 98.6
[2016-06-09] MEDS: CHLORHEXIDINE 0.12% (ORAL KIT) 15 ML CUP MT SCH ×2 (08:00→20:00)
[2016-06-09] MEDS ORDERED: ACETAMINOPHEN 500 MG CPLT PO PRN (08:00)
--- NOTE | 2016-06-09 08:20 | HHI.PR ---
Subjective Remarks Follow-up for shortness of breath and chronic pain Family of bedside, patient still complaining of chronic pain, about 6/10, mostly in the left lower extremity, left thigh area, unchanged, but the same as yesterday. Shortness of breath about the same as yesterday, better. Has resolved, mental status back to normal. No nausea or vomiting. No abdominal pain. Hasn't had a bowel movement since admission. No fever. Denies any headache, chest pain, focal deficits or blurring of vision. Objective Vitals Vital Signs Date Time Temp Pulse Resp B/P Pulse Ox O2 Delivery O2 Flow Rate FiO2 06/09/16 06:00 62 06/09/16 04:00 62 06/09/16 04:00 98.2 62 19 146/49 100 06/09/16 02:00 55 06/09/16 00:00 98.5 60 18 129/45 96 Automatic Cuff 06/09/16 00:00 60 06/08/16 22:00 60 06/08/16 21:01 96 Nasal Cannula 2.00 06/08/16 20:00 77 06/08/16 20:00 98.5 77 20 155/73 99 Arterial Line 06/08/16 19:00 99 Nasal Cannula 4.00 06/08/16 18:00 81 06/08/16 16:00 98.0 84 20 146/58 97 06/08/16 16:00 84 06/08/16 14:00 88 06/08/16 12:00 98.6 92 17 110/45 94 06/08/16 12:00 92 06/08/16 11:00 95 Nasal Cannula 4.00 06/08/16 10:55 40 06/08/16 10:50 96 Nasal Cannula 4 06/08/16 10:50 96 Nasal Cannula 4.00 06/08/16 10:45 97 40 06/08/16 10:45 Nasal Cannula 40 06/08/16 10:00 100 06/08/16 08:38 97 40 I/O 06/08/16 06/08/16 06/08/16 06/09/16 06/09/16 06/09/16 07:00 15:00 23:00 07:00 15:00 23:00 Intake Total 436 ml 637 ml 1680 ml 349 ml Output Total 350 ml 325 ml 200 ml 400 ml Balance 86 ml 312 ml 1480 ml -51 ml Intake Oral 360 ml 1440 ml 240 ml IV Total 436 ml 277 ml 240 ml 109 ml Output Urine Total 350 ml 200 ml 200 ml 400 ml Gastric Drainage Total 0 ml 125 ml # Bowel Movements 0 0 0 Result Diagram: 06/09/1644406/09/16444 Objective Remarks Not in distress, well-nourished, looks stated age, on nasal cannula. PERRL, pink conjunctiva without injection, anicteric Nose without bleeding, airway patent Supple neck, no masses or thyromegaly, trachea midline Normal rate and regular rhythm, no murmurs gallops or rubs appreciated. Clear to auscultation and symmetric bilaterally, normal respiratory effort. Normal bowel sounds, soft, non-tender, nondistended, no guarding. Extremities without clubbing, cyanosis, or edema. Mild tenderness left thigh area. No rash of generalized distribution. Skin is warm and dry. AAO x3, no cranial nerve deficits, moves all 4 extremities, no focal neurologic deficits A/P Problem List: (1) Acute respiratory failure with hypoxia and hypercarbia ICD Code: J96.01 Status: Acute (2) Hypertension ICD Code: I10 Status: Acute (3) CHF (congestive heart failure) ICD Code: I50.9 Status: Acute (4) Pneumonia ICD Code: J18.9 Status: Acute (5) Renal insufficiency ICD Code: N28.9 Status: Acute (6) Altered mental status ICD Code: R41.82 Status: Acute (7) Paroxysmal a-fib ICD Code: I48.0 Status: Acute (8) History of lumbar fusion ICD Code: Z98.890 Status: Acute (9) BPH (benign prostatic hyperplasia) ICD Code: N40.0 Status: Acute (10) Depression ICD Code: F32.9 Status: Acute Assessment and Plan 81-year-old male with history hypertension, renal insufficiency, cardiomegaly, paroxysmal A. fib, recent yoana surgery. Presented to the emergency room with shortness of breath and altered mental status. Acute hypoxic and hypercarbic respiratory failure secondary to aspiration pneumonia - pt with CO2 narcosis, was on long acting narcotics, initially on BiPAP, required transfer to ICU , intubated 06/07/2016 extubated 06/08/16. -Cultures negative to date, infectious disease following, continue Zosyn, decreased ureters, continue duo nebs [id number] and as needed. ABG is within normal limits. Continue oxygen via nasal cannula. Toxic metabolic encephalopathy likely secondary to hypercarbia/CO2 narcosis- likely multifactorial, was noted hypoxic and hypercarbic, also elevated ammonia , possibly infectious processes, medication effect (on long acting narcotics). Continue neurochecks. Ammonia now normal. Avoid long-acting narcotics, presently still on fentanyl, start Tylenol, if not responding, start Percocet. Acute diastolic congestive heart failure exacerbation- initially elevated BNP. Responding to Lasix, creatinine increasing, hold off Lasix. Cardiology following. Monitor urine output, continue cardiac telemetry Acute renal failure-prior history of acute renal injury requiring hemodialysis, creatinine worse, could be from overdiuresis, hold Lasix, avoid nephrotoxins. Lisinopril held. Nephrology consulted. Hypertension, uncontrolled-continue hydralazine, start metoprolol and Norvasc, lisinopril stopped. Previously hypotensive. History of lumbar decompression, uses walker at home Physical therapy for evaluation and treatment, pain medications above, start Tylenol Constipation- docusate [id number], magnesium hydroxide as needed. Hypothyroidism-elevated TSH, continue Synthroid, check free 33 and free T4 History of monoclonal gammopathy-follows Dr. Shen as outpatient, monitor. Hypocalcemia-replaced check BMP tomorrow. Heparin for DVT prophylaxis Protonix for GI prophylaxis Discussed extensively with nurse, and son Discharge Planning Keep in the ICU today, possible discharge in 2-3 days. Problem Qualifiers (1) Hypertension: Qualified Code: I10 - Essential hypertension (2) CHF (congestive heart failure): Qualified Code: I50.9 - Acute congestive heart failure, unspecified congestive heart failure type (3) Pneumonia: Qualified Code: J18.9 - Pneumonia due to infectious organism, unspecified laterality, unspecified part of lung (4) Altered mental status: Qualified Code: R40.4 - Transient alteration of awareness (5) BPH (benign prostatic hyperplasia): Qualified Code: N40.0 - Benign prostatic hyperplasia, presence of lower urinary tract symptoms unspecified, unspecified morphology (6) Depression: Qualified Code: F32.9 - Depression, unspecified depression type Layla Colin MD Jun 09, 2016 08:20
[2016-06-09] MEDS: NYSTATIN SUSP 500,000 U/5 ML CUP SWISH-SWAL SCH ×4 (08:40→20:14)
[2016-06-09] MEDS: MAGNESIUM HYDROXIDE SUSP 30 ML CUP PO SCH (08:40)
[2016-06-09] MEDS: amLODIPine BESYLATE 5 MG TAB PO SCH (08:44)
[2016-06-09] MEDS: METOPROLOL TARTRATE 25 MG TAB PO SCH ×2 (08:44→20:15)
[2016-06-09] MEDS: DOCUSATE SODIUM 100 MG CAP PO SCH ×2 (08:44→20:14)
[2016-06-09] MEDS ORDERED: CALCIUM GLUCONATE 10% 1 GM/10 ML VIAL IV PUSH ONE (08:45)
[2016-06-09] MEDS: CITALOPRAM HYDROBROMIDE 20 MG TAB PO SCH (08:46)
[2016-06-09] MEDS: SODIUM CHLORIDE 0.9% FLUSH 10 ML FLUSH IV FLUSH SCH ×2 (09:00→20:15)
[2016-06-09] MEDS: PANTOPRAZOLE SOD 40 MG DELAYED RELEASE TAB PO SCH (09:00)
[2016-06-09] MEDS ORDERED: CALCIUM GLUCONATE INJ 1 GM in SODIUM CHLORIDE 0.9% INJ 100 ML IV ONE (10:30)
--- NOTE | 2016-06-09 13:14 | PD.CONS ---
HPI Service Nephrology Consult Requested By Dr. Krishnan Reason for Consult Acute renal failure and chronic kidney disease Primary Care Physician Everton Velazquez MD History of Present Illness Patient is 81-year-old the male with history of hypertension, chronic kidney disease baseline creatinine around 1.5 with pain admitted with increasing shortness of breath and fever, he received diuretics Lasix and his creatinine increased to 2.6, a consult has been placed according to the family patient has back surgery 8 months ago in [place] complicated by sepsis and infection, cause acute renal failure creatinine was high at 5 and he required the dialysis sessions, however he recovered his kidney function and creatinine declined to 1.5, he does have benign prostate enlargement for which he takes medication. He reported remotely he had kidney stones but did not have recurrence. 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 Reported Medications Reported Meds & Active Scripts Active Reported Prolia Inj (Denosumab) 60 Mg/Ml Inj 60 Mg SQ Q180D Synthroid (Levothyroxine Sodium) 50 Mcg Tab 50 Mcg PO DAILY Ginkgo Biloba 60 Mg Cap 60 Mg PO DAILY Multivitamin Adults (Multiple Vitamins W/ Minerals) 1 Tab 1 Tab PO DAILY Testosterone Cypionate Inj (Testosterone Cypionate) Unknown Strength Inj Unknown Dose IM Q14D Percocet (Oxycodone-Acetaminophen) 10-325 mg Tab 1 Tab PO BID PRN Lisinopril 10 Mg Tab 10 Mg PO DAILY Protonix (Pantoprazole Sodium) 20 Mg Tab 20 Mg PO DAILY Metoprolol Succinate ER 24 HR (Metoprolol Succinate) 50 Mg Tab 75 Mg PO DAILY Flomax (Tamsulosin HCl) 0.4 Mg Cap 0.8 Mg PO HS Celexa (Citalopram Hydrobromide) 20 Mg Tab 20 Mg PO DAILY Prednisone 5 Mg Tab 7.5 Mg PO DAILY Oxycontin (Oxycodone HCl) 20 Mg Tab 20 Mg PO Q12HR Active Ordered Medications Current Medications Medications (Trade) Dose Ordered Sig/Mauro Route Start Time Stop Time Status Last Admin (NS Flush) 2 ml UNSCH PRN IV FLUSH 06/06/16 15:30 06/06/16 17:00 (NS Flush) 2 ml BID IV FLUSH 06/06/16 21:00 06/09/16 09:00 (Zofran Inj) 4 mg Q6H PRN IVP 06/06/16 15:30 (Dulcolax Supp) 10 mg DAILY PRN RECTAL 06/06/16 15:30 (Colace) 100 mg Q12HR PO 06/06/16 21:00 06/09/16 08:44 (Milk Of Magnesia Liq) 30 ml Q12H PRN PO 06/06/16 15:30 (Heparin Inj) 5,000 units Q12H SQ 06/06/16 16:00 06/09/16 04:09 Naloxone HCl 0.4 mg 0.4 mg UNSCH PRN IV 06/06/16 15:30 (Zosyn 2.25 Gm Premix) 50 ml @ 100 mls/hr Q6H IV 06/07/16 14:00 06/09/16 08:41 (Synthroid) 50 mcg DAILY@06 PO 06/08/16 06:00 06/09/16 04:48 (Flomax) 0.8 mg HS PO 06/07/16 21:00 06/08/16 19:48 Chlorhexidine Gluconate 15 ml 15 ml BID@08,20 MT 06/07/16 20:00 06/08/16 19:48 (fentaNYL DRIP) 250 ml @ 0 mls/hr TITRATE IV 06/07/16 15:15 06/08/16 15:54 (Tylenol) 650 mg Q6H PRN PO 06/07/16 15:15 (Reglan Inj) 5 mg Q6H IV 06/07/16 17:00 06/09/16 11:01 (Senna Liq) 17.6 mg Q12H G-TUBE 06/07/16 16:00 06/09/16 04:08 Miscellaneous Information 1 Q361D XX 06/07/16 15:15 06/07/16 15:15 (Chlorhexidine 2% Cloth) 3 pack Taper DAILY@04 TOP 06/08/16 04:00 06/04/17 03:59 06/09/16 04:08 (Chlorhexidine 2% Cloth) 3 pack UNSCH PRN TOP 06/07/16 15:15 (Apresoline Inj) 10 mg Q2H PRN IV PUSH 06/07/16 15:30 06/08/16 02:16 (Apresoline) 50 mg Q8HR PO 06/07/16 15:30 06/09/16 06:27 (fentaNYL INJ) 100 mcg Q3H PRN IV PUSH 06/07/16 15:30 06/07/16 16:36 (Mycostatin Liq) 5 ml QID SWISH-SWAL 06/08/16 18:00 06/09/16 08:40 (Lopressor) 75 mg Q12HR PO 06/09/16 09:00 06/09/16 08:44 (Milk Of Magnesia Liq) 30 ml DAILY PO 06/09/16 09:00 06/09/16 08:40 (Tylenol) 500 mg Q4H PRN PO 06/09/16 08:00 (CeleXA) 20 mg DAILY PO 06/09/16 09:00 06/09/16 08:46 (Norvasc) 5 mg DAILY PO 06/09/16 09:00 06/09/16 08:44 (SoluMEDROL INJ) 40 mg DAILY IV PUSH 06/10/16 09:00 (Protonix) 40 mg DAILY PO 06/09/16 09:00 Family History Noncontributory Social History Denies smoking, alcohol use positive Physical Exam Vital Signs Vital Signs Date Time Temp Pulse Resp B/P Pulse Ox O2 Delivery O2 Flow Rate FiO2 06/09/16 12:00 98.5 80 16 132/59 99 06/09/16 12:00 80 06/09/16 10:00 67 06/09/16 08:16 96 Nasal Cannula 2.00 06/09/16 08:00 69 06/09/16 08:00 98.1 71 14 143/66 100 06/09/16 07:00 97 Nasal Cannula 4.00 06/09/16 06:00 62 06/09/16 04:00 62 06/09/16 04:00 98.2 62 19 146/49 100 06/09/16 02:00 55 06/09/16 00:00 98.5 60 18 129/45 96 Automatic Cuff 06/09/16 00:00 60 06/08/16 22:00 60 06/08/16 21:01 96 Nasal Cannula 2.00 06/08/16 20:00 77 06/08/16 20:00 98.5 77 20 155/73 99 Arterial Line 06/08/16 19:00 99 Nasal Cannula 4.00 06/08/16 18:00 81 06/08/16 16:00 98.0 84 20 146/58 97 06/08/16 16:00 84 06/08/16 14:00 88 Physical Exam GENERAL: Well-nourished, well-developed patient. SKIN: Warm and dry. HEAD: Normocephalic. EYES: No scleral icterus. No injection or drainage. NECK: Supple, trachea midline. No JVD or lymphadenopathy. CARDIOVASCULAR: Regular rate and irregularity without murmurs, gallops, or rubs. RESPIRATORY: Breath sounds equal bilaterally. No accessory muscle use. GASTROINTESTINAL: Abdomen soft, non-tender, nondistended. EXTREMITIES: No cyanosis, or edema. NEUROLOGICAL: Awake, alert, and oriented x 3. Non-focal. Laboratory Laboratory Tests Test 06/09/16 06/09/16 06/09/16 04:45 07:00 09:39 White Blood Count 11.9 Red Blood Count 3.73 Hemoglobin 9.5 Hematocrit 29.6 Mean Corpuscular Volume 79.4 Mean Corpuscular Hemoglobin 25.4 Mean Corpuscular Hemoglobin 32.0 Concent Red Cell Distribution Width 16.6 Platelet Count 199 Mean Platelet Volume 8.7 Neutrophils (%) (Auto) 92.3 Lymphocytes (%) (Auto) 4.9 Monocytes (%) (Auto) 2.7 Eosinophils (%) (Auto) 0.0 Basophils (%) (Auto) 0.1 Neutrophils # (Auto) 11.0 Lymphocytes # (Auto) 0.6 Monocytes # (Auto) 0.3 Eosinophils # (Auto) 0.0 Basophils # (Auto) 0.0 CBC Comment DIFF FINAL Differential Comment Sodium Level 140 Potassium Level 4.0 Chloride Level 102 Carbon Dioxide Level 27.0 Anion Gap 11 Blood Urea Nitrogen 55 Creatinine 2.60 Estimat Glomerular Filtration 24 Rate Random Glucose 159 Calcium Level 6.9 Protein Corrected Calcium 7.6 Phosphorus Level 3.5 Magnesium Level 2.2 Total Bilirubin 0.4 Aspartate Amino Transf 8 (AST/SGOT) Alanine Aminotransferase 14 (ALT/SGPT) Alkaline Phosphatase 63 Total Protein 5.8 Albumin 2.8 Free Thyroxine 0.83 Urine Eosinophils NONE SEEN Urine Osmolality 394 Urine Random Creatinine 73.9 Urine Random Sodium 30 Blood Gas Puncture Site IV Blood Gas Patient Temperature 98.6 Venous Blood pH 7.35 Venous Blood Partial Pressure 48 CO2 Venous Blood Partial Pressure 43 O2 Venous Blood HCO3 26 Venous Blood Oxygen Saturation 72 Venous Blood Oxygen Content 10.1 Venous Blood Base Excess 0.9 Oxygen Delivery Device NASAL CANNULA Blood Gas Liter Flow 1 Total Triiodothyronine 59 Date/Time Procedure Status Source Growth 06/07/16 16:00 Gram Stain - Final Resulted Sputum Endotracheal 06/07/16 16:00 Sputum Culture - Preliminary Resulted Sputum Endotracheal IMMATURE GROWTH - REINCUBATE 06/06/16 14:00 Urine Culture - Final Complete Urine Catheterized Urine NO GROWTH IN 48 HOURS. 06/06/16 12:33 Aerobic Blood Culture - Preliminary Resulted Blood Peripheral NO GROWTH IN 3 DAYS 06/06/16 12:33 Anaerobic Blood Culture - Preliminary Resulted Blood Peripheral NO GROWTH IN 3 DAYS Result Diagram: 06/09/16 0445 06/09/16 0445 Imaging Last Impressions Chest X-Ray 06/09/16 0400 Signed Impressions: Service Date/Time: Thursday, June 09, 2016 04:33 - CONCLUSION: 1. Cardiomegaly and findings of vascular congestion without overt failure. The findings are improved when compared with the prior exam. Geoff Morris MD Lower Extremity Ultrasound 06/07/16 0000 Signed Impressions: Service Date/Time: May 17:02 - CONCLUSION: Normal examination. Misbah Sanchez MD Head CT 06/06/16 0000 Signed Impressions: Service Date/Time: Monday, June 06, 2016 17:29 - CONCLUSION: Left frontal lobe encephalomalacia. Otherwise unremarkable evaluation of the brain. There is no evidence of acute infarct, hemorrhage, mass or edema. Left maxillary sinus calcification. Danial Alfaro MD Assessment and Plan Problem List: (1) Acute renal failure Plan: He has received diuretics and creatinine is high as altered the fluid balance and he has intravascular volume depletion leading to rise in the creatinine, he is drinking water I will obtain a baseline kidney ultrasound I encouraged her water intake and output today for follow BMP he may have underlying infection as well (2) Hypertension Plan: Continue to monitor (3) Status post lumbar spine surgery for decompression of spinal cord Plan: He has back pain Problem Qualifiers (1) Acute renal failure: Qualified Code: N17.9 - Acute renal failure, unspecified acute renal failure type (2) Hypertension: Qualified Code: I10 - Essential hypertension Seun Triana MD Jun 09, 2016 13:14
[2016-06-09] MEDS: TAMSULOSIN HCL 0.4 MG CAP PO SCH (20:15)
--- NOTE | 2016-06-09 22:46 | RADRPT ---
EXAM DATE/TIME: 06/09/2016 21:45 [facility] COMPARISON: No previous studies available for comparison. INDICATIONS : Increased BUN/creatinine. MEDICAL HISTORY : Emphysema. Benign prostatic hyperplasia, (BPH) Osteoporosis. Hypertension. Afib. Gastrointestinal ulc er. Renal failure. Chronic back pain. Depression. SURGICAL HISTORY : Cataract surgery. Brain surgery, benign tumor removal. Spinal fusion T1-T5. ENCOUNTER: Initial ACUITY: 1 day PAIN SCORE: 0/10 LOCATION: Bilateral flank MEASUREMENTS: RIGHT KIDNEY: 13.0 x 6.0 x 5.3 cm LEFT KIDNEY: 11.9 x 5.2 x 6.1 cm FINDINGS: Right kidney measures 13 cm in length with a 5.4 cm cyst and a 1.8 cm cyst lower pole. Left kidney measures 11.9 cm with a 1.2 cm cyst midpole. Scott catheter present in bladder. CONCLUSION: Atrophic mildly echogenic kidneys characteristic of medical renal disease. Bilateral renal cysts. No hydronephrosis. Alberto Richardson MD on June 09, 2016 at 22:43 Board Certified Radiologist. This report was verified electronically.
[2016-06-10] VITALS (12 sets, daily range): BP systolic 114–163; BP diastolic 54–80; PULSE 62–75; RESP 15–17; TEMP 97.7–98.7; O2SAT 94–100
[2016-06-10] MEDS: PIPERACIL-TAZO 2.25 GM PREMIX 50 ML IV SCH ×4 (01:31→20:22)
[2016-06-10] MEDS: RESP: ALBUTEROL 2.5 MG/IPRATROPIUM 0.5 MG NEB (SCH) NEB ×4 (03:51→21:00)
[2016-06-10] MEDS: CHLORHEXIDINE GLUCONATE 2 % 1 PACK (2 CLOTHS) TOP SCH (04:00)
[2016-06-10] MEDS: HEPARIN SODIUM - SQ 10,000 UNITS/ML VIAL SQ SCH ×2 (04:14→16:33)
[2016-06-10] MEDS: METOCLOPRAMIDE HCL 10 MG/2 ML VIAL IV SCH ×4 (04:14→22:19)
[2016-06-10] MEDS: SENNOSIDES SYRUP 8.8 MG/5 ML CUP G-TUBE SCH ×2 (04:14→16:00)
[2016-06-10 05:58] LABS: AUTOMATED NEUTROPHIL # 8.4 TH/MM3 (1.8-7.7); BASOPHIL % 0.2 % (0.0-2.0); EOSINOPHIL % 0.1 % (0.0-4.0); HEMATOCRIT 29.8 % (39.0-51.0); HEMO FLAGS DIFF FINAL; LYMPH % 9.2 % (9.0-44.0); LYMPHOCYTE # 0.9 TH/MM3 (1.0-4.8); MEAN CELL VOLUME 79.1 FL (80.0-100.0); MEAN CORPUSCULAR HGB CONC 31.7 % (32.0-36.0); MONO % 5.3 % (0.0-8.0); NEUT % 85.2 % (16.0-70.0); PLATELET COUNT 178 TH/MM3 (150-450); RED BLOOD COUNT 3.77 MIL/MM3 (4.50-5.90); RED CELL DISTRIBUTION WIDTH 16.7 % (11.6-17.2); WHITE BLOOD COUNT 9.8 TH/MM3 (4.0-11.0)
[2016-06-10] MEDS: hydrALAZINE HCL 50 MG TAB PO SCH ×3 (06:00→20:21)
[2016-06-10 06:02] LABS: BICARBONATE 26.7 MEQ/L (21.0-32.0)
[2016-06-10] MEDS: LEVOTHYROXINE SODIUM 50 MCG TAB PO SCH (06:03)
[2016-06-10 06:23] LABS: CALCIUM-PROTEIN CORRECTED 7.7 MG/DL (8.5-10.1)
[2016-06-10] MEDS: CHLORHEXIDINE 0.12% (ORAL KIT) 15 ML CUP MT SCH ×2 (08:00→20:00)
[2016-06-10] MEDS: SODIUM CHLORIDE 0.9% FLUSH 10 ML FLUSH IV FLUSH SCH ×2 (09:00→20:23)
[2016-06-10] MEDS ORDERED: oxyCODONE/ACETAMINOPHEN 5 MG/325 MG TAB PO PRN (09:15)
--- NOTE | 2016-06-10 09:17 | HHI.PR ---
Subjective Remarks All of her shortness of breath Shortness of breath better, so nasal cannula, cough minimal. Left leg pain more controlled, afebrile. Good urine output. Creatinine is better. Objective Vitals Vital Signs Date Time Temp Pulse Resp B/P Pulse Ox O2 Delivery O2 Flow Rate FiO2 06/10/16 08:00 69 06/10/16 08:00 98.2 70 15 119/78 100 06/10/16 07:55 99 Nasal Cannula 2.00 06/10/16 07:00 95 Nasal Cannula 4.00 06/10/16 06:00 66 06/10/16 04:00 62 06/10/16 04:00 98.7 62 17 138/58 99 06/10/16 02:00 67 06/10/16 00:00 65 06/10/16 00:00 98.7 65 17 125/54 99 06/09/16 22:00 72 06/09/16 21:15 98 Nasal Cannula 4.00 06/09/16 20:00 98.7 79 20 131/53 99 06/09/16 20:00 79 06/09/16 19:00 99 Nasal Cannula 4.00 06/09/16 18:00 71 06/09/16 16:00 79 06/09/16 16:00 99.7 79 16 140/92 96 06/09/16 14:28 16 06/09/16 14:00 77 06/09/16 12:00 98.5 80 16 132/59 99 06/09/16 12:00 80 06/09/16 10:00 67 I/O 06/09/16 06/09/16 06/09/16 06/10/16 06/10/16 06/10/16 07:00 15:00 23:00 07:00 15:00 23:00 Intake Total 349 ml 1106 ml 577 ml 70 ml Output Total 400 ml 375 ml 450 ml 600 ml Balance -51 ml 731 ml 127 ml -530 ml Intake Oral 240 ml 720 ml 480 ml IV Total 109 ml 386 ml 97 ml 70 ml Output Urine Total 400 ml 375 ml 450 ml 600 ml # Bowel Movements 0 0 1 0 Result Diagram: 06/10/16 0500 06/10/16 0500 Objective Remarks Not in distress, well-nourished, looks stated age, on nasal cannula. PERRL, pink conjunctiva without injection, anicteric Nose without bleeding, airway patent Supple neck, no masses or thyromegaly, trachea midline Normal rate and regular rhythm, no murmurs gallops or rubs appreciated. Clear to auscultation and symmetric bilaterally, normal respiratory effort. Normal bowel sounds, soft, non-tender, nondistended, no guarding. Extremities without clubbing, cyanosis, or edema. Mild tenderness left thigh area. No rash of generalized distribution. Skin is warm and dry. AAO x3, no cranial nerve deficits, moves all 4 extremities, no focal neurologic deficits A/P Problem List: (1) Acute respiratory failure with hypoxia and hypercarbia ICD Code: J96.01 Status: Acute (2) Hypertension ICD Code: I10 Status: Acute (3) CHF (congestive heart failure) ICD Code: I50.9 Status: Acute (4) Pneumonia ICD Code: J18.9 Status: Acute (5) Renal insufficiency ICD Code: N28.9 Status: Acute (6) Altered mental status ICD Code: R41.82 Status: Acute (7) Paroxysmal a-fib ICD Code: I48.0 Status: Acute (8) History of lumbar fusion ICD Code: Z98.890 Status: Acute (9) BPH (benign prostatic hyperplasia) ICD Code: N40.0 Status: Acute (10) Depression ICD Code: F32.9 Status: Acute Assessment and Plan 81-year-old male with history hypertension, renal insufficiency, cardiomegaly, paroxysmal A. fib, recent yoana surgery. Presented to the emergency room with shortness of breath and altered mental status. Acute hypoxic and hypercarbic respiratory failure secondary to aspiration pneumonia - pt with CO2 narcosis, was on long acting narcotics, initially on BiPAP, required transfer to ICU , intubated 06/07/2016 extubated 06/08/16. -Cultures negative to date, infectious disease following, continue Zosyn, continue duo nebs [id number] and as needed. ABG is within normal limits. Continue oxygen via nasal cannula. Tapered to room air as much as possible. Toxic metabolic encephalopathy likely secondary to hypercarbia/CO2 narcosis- likely multifactorial, was noted hypoxic and hypercarbic, also elevated ammonia , possibly infectious processes, medication effect (on long acting narcotics). Continue neurochecks. Ammonia now normal. Avoid long-acting narcotics, presently still on fentanyl, stop fentanyl, continue Tylenol, start Percocet maximum every 6 hours. Acute diastolic congestive heart failure exacerbation- initially elevated BNP. Responding to Lasix, creatinine increasing, hold off Lasix. Cardiology following. Monitor urine output, continue cardiac telemetry Acute renal failure-prior history of acute renal injury requiring hemodialysis, creatinine worse, could be from overdiuresis, hold Lasix, avoid nephrotoxins. Lisinopril held. Nephrology following, ultrasound showed atrophy of bilateral kidneys and renal cysts, creatinine better, recheck BMP tomorrow. Hypertension, uncontrolled-continue hydralazine, continue metoprolol and Norvasc , lisinopril stopped. Previously hypotensive. History of lumbar decompression, uses walker at home Physical therapy for evaluation and treatment, pain medications above, Tylenol and Percocet as above. Constipation- docusate [id number], magnesium hydroxide as needed. Resolved. 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 Hypocalcemia-replaced check BMP tomorrow. Replaced. Heparin for DVT prophylaxis Protonix for GI prophylaxis Discussed extensively with nurse, and son Transfer to [facility] Possible discharge tomorrow or Saturday with home healthcare. Discharge Planning Transfer to [facility], discharge in 1-2 days. Problem Qualifiers (1) Hypertension: Qualified Code: I10 - Essential hypertension (2) CHF (congestive heart failure): Qualified Code: I50.9 - Acute congestive heart failure, unspecified congestive heart failure type (3) Pneumonia: Qualified Code: J18.9 - Pneumonia due to infectious organism, unspecified laterality, unspecified part of lung (4) Altered mental status: Qualified Code: R40.4 - Transient alteration of awareness (5) BPH (benign prostatic hyperplasia): Qualified Code: N40.0 - Benign prostatic hyperplasia, presence of lower urinary tract symptoms unspecified, unspecified morphology (6) Depression: Qualified Code: F32.9 - Depression, unspecified depression type Layla Colin MD Jun 10, 2016 09:17
--- NOTE | 2016-06-10 09:18 | HHI.FF ---
Face to Face Verification Diagnosis: (1) Pneumonia (2) Hypertension (3) Renal insufficiency (4) Altered mental status Physical Therapy Order: Evaluate and Treat Home Health Nursing Order: Medical education Medication education-adverse effect Nursing assessment with vital signs I have seen patient Jaqueline Lujan on 06/10/16. My clinical findings support the need for the requested home health care services because: Ltd mobility - disease progression Limited ability to care for self I certify that my clinical findings support that this patient is homebound because: Unsteady gait/balance Layla Colin MD Jun 10, 2016 09:18
[2016-06-10] MEDS: METOPROLOL TARTRATE 25 MG TAB PO SCH ×2 (09:21→20:20)
[2016-06-10] MEDS: CITALOPRAM HYDROBROMIDE 20 MG TAB PO SCH (09:21)
[2016-06-10] MEDS: amLODIPine BESYLATE 5 MG TAB PO SCH (09:22)
[2016-06-10] MEDS: DOCUSATE SODIUM 100 MG CAP PO SCH ×2 (09:22→20:21)
[2016-06-10] MEDS: PANTOPRAZOLE SOD 40 MG DELAYED RELEASE TAB PO SCH (09:22)
[2016-06-10] MEDS: methylPREDNISolone SOD SUCC 125 MG/2 ML VIAL IV PUSH SCH (09:22)
[2016-06-10] MEDS: NYSTATIN SUSP 500,000 U/5 ML CUP SWISH-SWAL SCH ×4 (09:23→20:20)
[2016-06-10] MEDS: MAGNESIUM HYDROXIDE SUSP 30 ML CUP PO SCH (09:23)
--- NOTE | 2016-06-10 11:27 | HHI.NPPN ---
Subjective History of Present Illness 81 year old male ARF with possible sepsis Review of Systems General Constitutional: Fatigue Objective Data Data 06/09/16 06/10/16 19:00 07:00 Intake Total 1106 ml 647 ml Output Total 375 ml 1050 ml Balance 731 ml -403 ml Intake Oral 720 ml 480 ml IV Total 386 ml 167 ml Output Urine Total 375 ml 1050 ml # Bowel Movements 0 1 Vital Signs Date Time Temp Pulse Resp B/P Pulse Ox O2 Delivery O2 Flow Rate FiO2 06/10/16 10:00 74 06/10/16 08:00 69 06/10/16 08:00 98.2 70 15 119/78 100 06/10/16 07:55 99 Nasal Cannula 2.00 06/10/16 07:00 95 Nasal Cannula 4.00 06/10/16 06:00 66 06/10/16 04:00 62 06/10/16 04:00 98.7 62 17 138/58 99 06/10/16 02:00 67 06/10/16 00:00 65 06/10/16 00:00 98.7 65 17 125/54 99 06/09/16 22:00 72 06/09/16 21:15 98 Nasal Cannula 4.00 06/09/16 20:00 98.7 79 20 131/53 99 06/09/16 20:00 79 06/09/16 19:00 99 Nasal Cannula 4.00 06/09/16 18:00 71 06/09/16 16:00 79 06/09/16 16:00 99.7 79 16 140/92 96 06/09/16 14:28 16 06/09/16 14:00 77 06/09/16 12:00 98.5 80 16 132/59 99 06/09/16 12:00 80 -: 06/10/16 0500 06/10/16 0500 Physical Exam General Appearance: Well Developed, No Acute Distress, Comfortable Eyes Eye Exam: Pupils Equal, Pupils Reactive Ears & Nose Ears & Nose Exam: Nasal Mucosa [place] Throat Throat Exam: Oral Mucosa [place] & Moist Neck Neck Exam: Neck Supple, Trachea Midline Pulmonary Resp Exam: Decreased Bases, Poor Inspiratory Effort Cardiology CV Exam: Regular Gastrointestinal/Abdomen GI Exam: Soft, Non-Tender, Bowel Sounds Present, Non-Distended Genitourinary Exam: Clear Urine Musculoskeletal MS Exam: Joints Intact Integumentary Skin Exam: Warm, Dry Extremeties Extremities Exam: No Edema, Pedal Pulses Palpable Neurologic Neuro Exam: Awake, Speech Clear, Moving All Extremities, No Focal Deficits VTE Prophylaxis Device: SCDs Assessment/Plan Problem List: (1) Acute renal failure Plan: he is better encourage water intake cr declined to 2.28 agree can be discharged if cr is lower and followed as out pt discussed US results age related changes cyst/some atrophy (2) Hypertension Plan: Continue to monitor (3) Status post lumbar spine surgery for decompression of spinal cord Plan: He has back pain Problem Qualifiers (1) Acute renal failure: Qualified Code: N17.9 - Acute renal failure, unspecified acute renal failure type (2) Hypertension: Qualified Code: I10 - Essential hypertension Seun Triana MD Jun 10, 2016 11:27
[2016-06-10] MEDS: TAMSULOSIN HCL 0.4 MG CAP PO SCH (20:20)
[2016-06-11] VITALS (9 sets, daily range): BP systolic 123–163; BP diastolic 66–91; PULSE 64–88; RESP 16–20; TEMP 97.3–98.4; O2SAT 94–98
[2016-06-11] MEDS: RESP: ALBUTEROL 2.5 MG/IPRATROPIUM 0.5 MG NEB (SCH) NEB ×4 (03:03→21:41)
[2016-06-11] MEDS: CHLORHEXIDINE GLUCONATE 2 % 1 PACK (2 CLOTHS) TOP SCH (04:00)
[2016-06-11] MEDS: SENNOSIDES SYRUP 8.8 MG/5 ML CUP G-TUBE SCH ×2 (04:00→16:00)
[2016-06-11] MEDS: PIPERACIL-TAZO 2.25 GM PREMIX 50 ML IV SCH ×3 (04:27→14:09)
[2016-06-11] MEDS: METOCLOPRAMIDE HCL 10 MG/2 ML VIAL IV SCH ×4 (04:29→22:56)
[2016-06-11] MEDS: hydrALAZINE HCL 50 MG TAB PO SCH ×3 (04:30→22:53)
[2016-06-11] MEDS: HEPARIN SODIUM - SQ 10,000 UNITS/ML VIAL SQ SCH ×2 (04:30→16:20)
[2016-06-11] MEDS: LEVOTHYROXINE SODIUM 50 MCG TAB PO SCH (04:30)
[2016-06-11 06:02] LABS: BICARBONATE 31.4 MEQ/L (21.0-32.0); POTASSIUM 3.9 MEQ/L (3.5-5.1)
[2016-06-11 06:14] LABS: CALCIUM-PROTEIN CORRECTED 8.1 MG/DL (8.5-10.1)
[2016-06-11] MEDS: CHLORHEXIDINE 0.12% (ORAL KIT) 15 ML CUP MT SCH ×2 (08:00→20:00)
[2016-06-11] MEDS: DOCUSATE SODIUM 100 MG CAP PO SCH ×2 (08:10→22:54)
[2016-06-11] MEDS: PANTOPRAZOLE SOD 40 MG DELAYED RELEASE TAB PO SCH (08:10)
[2016-06-11] MEDS: CITALOPRAM HYDROBROMIDE 20 MG TAB PO SCH (08:10)
[2016-06-11] MEDS: NYSTATIN SUSP 500,000 U/5 ML CUP SWISH-SWAL SCH ×4 (08:10→22:54)
[2016-06-11] MEDS: SODIUM CHLORIDE 0.9% FLUSH 10 ML FLUSH IV FLUSH SCH ×2 (08:10→22:54)
[2016-06-11] MEDS: methylPREDNISolone SOD SUCC 125 MG/2 ML VIAL IV PUSH SCH (08:17)
[2016-06-11] MEDS: amLODIPine BESYLATE 5 MG TAB PO SCH ×2 (09:00→12:28)
[2016-06-11] MEDS: METOPROLOL TARTRATE 25 MG TAB PO SCH ×3 (09:00→22:53)
[2016-06-11] MEDS: MAGNESIUM HYDROXIDE SUSP 30 ML CUP PO SCH (09:00)
[2016-06-11] MEDS: SODIUM CHLORIDE 0.9% FLUSH 10 ML FLUSH IV FLUSH PRN ×2 (10:57→16:20)
--- NOTE | 2016-06-11 11:16 | RADRPT ---
EXAM DATE/TIME: 06/11/2016 00:00 [place] COMPARISON: No previous studies available for comparison. INDICATIONS : Dysphagia, evaluate for aspiration FLUORO TIME: 1.1 minutes IMAGE COUNT: 0 CONTRAST: Dose as prescribed by speech pathologist. MEDICAL HISTORY : None. SURGICAL HISTORY : None. ENCOUNTER: Initial ACUITY: 1 day PAIN SCORE: 0/10 LOCATION: Bilateral esophagus FINDINGS: A modified barium swallow was performed with speech pathology. Patient was given a variety of liquids to swallow. For a full detailed report, see report by the speech pathologist. CONCLUSION: Please refer to speech pathologist michael. Jackie Ervin MD on June 11, 2016 at 11:13 Board Certified Radiologist. This report was verified electronically.
--- NOTE | 2016-06-11 12:26 | HHI.PR ---
Addendum to Inpatient Note Addendum Reason: Additional Documentation Additional Information Case d.w Ok to DC home on Augmentin for 5 more days. Forestry Hunter if patient develops diarrhea to have stool checked for Cdiff. Forestry Hunter to elevate HOB as tolerated to prevent aspiration. Will sign off please call back if any change in clinical condition or questions. Lala Morales MD Jun 11, 2016 12:26
--- NOTE | 2016-06-11 15:47 | HHI.PR ---
Subjective Remarks Follow-up for shortness of breath Shortness of breath almost back to baseline, had an episode of vomiting last night, hasn't had food since lunch yesterday. Nonbloody vomitus. No shortness of breath. Presently not nauseated. Pain is controlled. Afebrile. Objective Vitals Vital Signs Date Time Temp Pulse Resp B/P Pulse Ox O2 Delivery O2 Flow Rate FiO2 06/11/16 12:00 98.4 81 20 145/76 95 06/11/16 11:48 18 06/11/16 10:00 85 06/11/16 08:10 96 Nasal Cannula 2.00 40 06/11/16 08:00 98.2 82 18 155/91 96 06/11/16 07:40 94 Nasal Cannula 2.00 06/11/16 04:47 97.5 78 20 162/83 98 06/11/16 04:00 95 2.00 06/11/16 01:00 97.3 88 18 163/79 95 06/10/16 21:01 98 Nasal Cannula 4.00 06/10/16 20:00 97.7 72 17 163/80 94 06/10/16 19:20 Nasal Cannula 2.00 40 06/10/16 17:06 97 Nasal Cannula 2.00 06/10/16 16:00 97.9 73 17 114/62 95 I/O 06/10/16 06/10/16 06/10/16 06/11/16 06/11/16 06/11/16 07:00 15:00 23:00 07:00 15:00 23:00 Intake Total 70 ml 120 ml 240 ml 340 ml 104 ml Output Total 600 ml 750 ml 1100 ml 600 ml Balance -530 ml -630 ml -860 ml -260 ml 104 ml Intake Oral 120 ml 240 ml 240 ml IV Total 70 ml 100 ml 104 ml Output Urine Total 600 ml 750 ml 800 ml 600 ml Emesis 300 ml # Bowel Movements 0 1 Result Diagram: 06/10/16 0500 06/11/16 0510 Objective Remarks Not in distress, well-nourished, looks stated age, on nasal cannula. PERRL, pink conjunctiva without injection, anicteric Nose without bleeding, airway patent Supple neck, no masses or thyromegaly, trachea midline Normal rate and regular rhythm, no murmurs gallops or rubs appreciated. Occasional rhonchi, no crackles or wheezing. Normal bowel sounds, soft, non-tender, nondistended, no guarding. Extremities without clubbing, cyanosis, or edema. Mild tenderness left thigh area. No rash of generalized distribution. Skin is warm and dry. AAO x3, no cranial nerve deficits, moves all 4 extremities, no focal neurologic deficits A/P Problem List: (1) Acute respiratory failure with hypoxia and hypercarbia ICD Code: J96.01 Status: Acute (2) Hypertension ICD Code: I10 Status: Acute (3) CHF (congestive heart failure) ICD Code: I50.9 Status: Acute (4) Pneumonia ICD Code: J18.9 Status: Acute (5) Renal insufficiency ICD Code: N28.9 Status: Acute (6) Altered mental status ICD Code: R41.82 Status: Acute (7) Paroxysmal a-fib ICD Code: I48.0 Status: Acute (8) History of lumbar fusion ICD Code: Z98.890 Status: Acute (9) BPH (benign prostatic hyperplasia) ICD Code: N40.0 Status: Acute (10) Depression ICD Code: F32.9 Status: Acute Assessment and Plan 81-year-old male with history hypertension, renal insufficiency, cardiomegaly, paroxysmal A. fib, recent yoana surgery. Presented to the emergency room with shortness of breath and altered mental status. Acute hypoxic and hypercarbic respiratory failure secondary to aspiration pneumonia - pt with CO2 narcosis, was on long acting narcotics, initially on BiPAP, required transfer to ICU , intubated 06/07/2016 extubated 06/08/16. -Cultures negative to date, infectious disease following, continue Zosyn, discussed with Dr. Morales fro ID, switch to Augmentin for 5 more days of treatment. Continue duo nebs [id number] and as needed. ABG is within normal limits. Continue oxygen via nasal cannula. Taper to room air as much as possible. Discussed with RN. Stop steroids. Toxic metabolic encephalopathy likely secondary to hypercarbia/CO2 narcosis- likely multifactorial, was noted hypoxic and hypercarbic, also elevated ammonia , possibly infectious processes, medication effect (on long acting narcotics). Continue neurochecks. Ammonia now normal. Avoid long-acting narcotics, presently still on fentanyl, stop fentanyl, continue Tylenol, continue Percocet maximum every 6 hours. Acute diastolic congestive heart failure exacerbation- initially elevated BNP. Responding to Lasix, creatinine increasing, hold off Lasix. Cardiology following. Monitor urine output, continue cardiac telemetry Dysphagia-had vomiting yesterday,resolved today. Modified barium swallow done, swallowing within normal limits, regular consistency food. Will discuss with patient. Acute renal failure-prior history of acute renal injury requiring hemodialysis, creatinine worse, could be from overdiuresis, hold Lasix, avoid nephrotoxins. Lisinopril held. Nephrology following, ultrasound showed atrophy of bilateral kidneys and renal cysts, creatinine better better again today, cleared by nephrology for discharge. Restart Lasix once creatinine is back to normal. Hypertension, uncontrolled-continue hydralazine, continue metoprolol and Norvasc , lisinopril stopped. Previously hypotensive. History of lumbar decompression, uses walker at home Physical therapy for evaluation and treatment, pain medications above, Tylenol and Percocet as above. Constipation- docusate [id number], magnesium hydroxide as needed. Resolved. 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 Hypocalcemia-replaced check BMP tomorrow. Replaced. Heparin for DVT prophylaxis Protonix for GI prophylaxis Discussed extensively with nurse, and son Transfer to [facility] Discharge Planning discharge tomorrow Problem Qualifiers (1) Hypertension: Qualified Code: I10 - Essential hypertension (2) CHF (congestive heart failure): Qualified Code: I50.9 - Acute congestive heart failure, unspecified congestive heart failure type (3) Pneumonia: Qualified Code: J18.9 - Pneumonia due to infectious organism, unspecified laterality, unspecified part of lung (4) Altered mental status: Qualified Code: R40.4 - Transient alteration of awareness (5) BPH (benign prostatic hyperplasia): Qualified Code: N40.0 - Benign prostatic hyperplasia, presence of lower urinary tract symptoms unspecified, unspecified morphology (6) Depression: Qualified Code: F32.9 - Depression, unspecified depression type Layla Colin MD Jun 11, 2016 15:47
[2016-06-11] MEDS: TAMSULOSIN HCL 0.4 MG CAP PO SCH (22:54)
[2016-06-11] MEDS: AMOXICILLIN/CLAVULANATE K 875 MG TAB PO SCH (22:54)
[2016-06-12] VITALS: BP 138/75; PULSE 76; RESP 21; TEMP 97.8; O2SAT 92
[2016-06-12] MEDS: RESP: ALBUTEROL 2.5 MG/IPRATROPIUM 0.5 MG NEB (SCH) NEB ×2 (03:49→09:02)
[2016-06-12 04:00] VITALS: BP 148/83; PULSE 72; RESP 21; TEMP 96.5; O2SAT 95
[2016-06-12] MEDS: SENNOSIDES SYRUP 8.8 MG/5 ML CUP G-TUBE SCH (04:00)
[2016-06-12] MEDS: CHLORHEXIDINE GLUCONATE 2 % 1 PACK (2 CLOTHS) TOP SCH (04:00)
[2016-06-12] MEDS: METOCLOPRAMIDE HCL 10 MG/2 ML VIAL IV SCH (05:11)
[2016-06-12] MEDS: hydrALAZINE HCL 50 MG TAB PO SCH (05:11)
[2016-06-12] MEDS: HEPARIN SODIUM - SQ 10,000 UNITS/ML VIAL SQ SCH (05:11)
[2016-06-12 05:38] LABS: AUTOMATED NEUTROPHIL # 5.7 TH/MM3 (1.8-7.7); BASOPHIL % 0.4 % (0.0-2.0); EOSINOPHIL # 0.1 TH/MM3 (0-0.4); HEMATOCRIT 32.5 % (39.0-51.0); LYMPH % 11.4 % (9.0-44.0); LYMPHOCYTE # 0.8 TH/MM3 (1.0-4.8); MEAN CELL VOLUME 80.1 FL (80.0-100.0); MEAN CORPUSCULAR HEMOGLOBIN 24.9 PG (27.0-34.0); MEAN CORPUSCULAR HGB CONC 31.1 % (32.0-36.0); MONO % 6.8 % (0.0-8.0); NEUT % 80.4 % (16.0-70.0); PLATELET COUNT 173 TH/MM3 (150-450); RED BLOOD COUNT 4.06 MIL/MM3 (4.50-5.90); RED CELL DISTRIBUTION WIDTH 16.2 % (11.6-17.2); WHITE BLOOD COUNT 7.1 TH/MM3 (4.0-11.0)
[2016-06-12 05:43] LABS: HEMO FLAGS AUTO DIFF
[2016-06-12] MEDS ORDERED: LEVOTHYROXINE SODIUM 75 MCG TAB PO SCH (06:00)
[2016-06-12 06:01] LABS: BICARBONATE 29.9 MEQ/L (21.0-32.0); POTASSIUM 3.8 MEQ/L (3.5-5.1)
[2016-06-12] MEDS ORDERED: AMLO5 PO (07:50)
[2016-06-12] MEDS ORDERED: OXYC1TAB63 PO (07:50)
[2016-06-12] MEDS ORDERED: ONDA4TAB7 SL (07:50)
[2016-06-12] MEDS ORDERED: LEVO.075 PO (07:50)
[2016-06-12] MEDS ORDERED: AMOX875T2 PO (07:50)
[2016-06-12] MEDS ORDERED: HYDR50TA15 PO (07:50)
[2016-06-12] MEDS ORDERED: DOCU1CAP39 PO (07:50)
[2016-06-12 08:00] VITALS: BP 144/79; PULSE 68; RESP 16; TEMP 97.8; O2SAT 93
[2016-06-12] MEDS: CHLORHEXIDINE 0.12% (ORAL KIT) 15 ML CUP MT SCH (08:00)
--- NOTE | 2016-06-12 08:05 | HHI.DS ---
Discharge Summary Admission Date Jun 06, 2016 at 14:25 Discharge Date: Jun 12, 2016 Admitting Diagnosis sepsis/CHF (1) Acute respiratory failure with hypoxia and hypercarbia ICD Code: J96.01 Diagnosis: Principal (2) Hypertension ICD Code: I10 Diagnosis: Secondary (3) CHF (congestive heart failure) ICD Code: I50.9 Diagnosis: Secondary (4) Pneumonia ICD Code: J18.9 Diagnosis: Principal (5) Renal insufficiency ICD Code: N28.9 Diagnosis: Secondary (6) Altered mental status ICD Code: R41.82 Diagnosis: Secondary (7) Paroxysmal a-fib ICD Code: I48.0 Diagnosis: Secondary (8) History of lumbar fusion ICD Code: Z98.890 Diagnosis: Secondary (9) BPH (benign prostatic hyperplasia) ICD Code: N40.0 Diagnosis: Secondary (10) Depression ICD Code: F32.9 Procedures Intubation and extubation Brief History - From Admission Per admitting physician: This is a pleasant 66-evet-xgo-male who came in to the emergency room with some shortness of breath and some mild fever, according to family and the ER record. According to the record, the patient also had had some urinary incontinence twice yesterday. Family members which includes the son and [id number] saw the patient last night and he was able to walk but he did not seem to feel right, he had had some complaints of shortness of breath. On exam in the emergency room for admission, the patient had had pain medication and was very drowsy on initial assessment. He was awakened and was able to respond slowly to his son. He is displaying some altered mental status and is unable at this time to carry on any conversation more than shaking his head to yes or no questions. When asked if he has any pain he notes pain when he urinates. The patient received 40 of IV Lasix in the emergency room and was able to urinate 80 cc in the urinal an hour later. The patient is positive for face being very flushed, oral temperature shows 98.8. According to kekkorez-xg-ain, the patient has been getting some rehabilitation for the past few months and back pain and ambulation has improved. Currently the patient has low respiratory volumes and is showing some signs of dyspnea. Son is here at his side and is assisting with his history and information and communication. Son's who is a physician in town is also assisting with his information. CBC/BMP: 06/12/16 0515 06/12/16 0515 Significant Findings Laboratory Tests Test 06/09/16 06/10/16 06/11/16 06/12/16 09:39 05:00 05:10 05:15 Total Triiodothyronine 59 NG/DL (60-181) Red Blood Count 3.77 MIL/MM3 4.06 MIL/MM3 (4.50-5.90) (4.50-5.90) Hemoglobin 9.4 GM/DL 10.1 GM/DL (13.0-17.0) (13.0-17.0) Hematocrit 29.8 % 32.5 % (39.0-51.0) (39.0-51.0) Mean Corpuscular Volume 79.1 FL (80.0-100.0) Mean Corpuscular Hemoglobin 25.0 PG 24.9 PG (27.0-34.0) (27.0-34.0) Mean Corpuscular Hemoglobin 31.7 % 31.1 % Concent (32.0-36.0) (32.0-36.0) Neutrophils (%) (Auto) 85.2 % 80.4 % (16.0-70.0) (16.0-70.0) Neutrophils # (Auto) 8.4 TH/MM3 (1.8-7.7) Lymphocytes # (Auto) 0.9 TH/MM3 0.8 TH/MM3 (1.0-4.8) (1.0-4.8) Blood Urea Nitrogen 60 MG/DL (7-18) 51 MG/DL (7-18) 39 MG/DL (7-18) Creatinine 2.28 MG/DL 1.89 MG/DL 1.67 MG/DL (0.60-1.30) (0.60-1.30) (0.60-1.30) Estimat Glomerular Filtration 28 ML/MIN (>89) 35 ML/MIN (>89) 40 ML/MIN (>89) Rate Random Glucose 116 MG/DL (74-106) Calcium Level 6.8 MG/DL 7.2 MG/DL 7.7 MG/DL (8.5-10.1) (8.5-10.1) (8.5-10.1) Protein Corrected Calcium 7.7 MG/DL 8.1 MG/DL (8.5-10.1) (8.5-10.1) Total Protein 5.4 GM/DL 5.4 GM/DL (6.4-8.2) (6.4-8.2) PE at Discharge Not in distress, well-nourished, looks stated age, on nasal cannula. PERRL, pink conjunctiva without injection, anicteric Nose without bleeding, airway patent Supple neck, no masses or thyromegaly, trachea midline Normal rate and regular rhythm, no murmurs gallops or rubs appreciated. Occasional rhonchi, no crackles or wheezing. Normal bowel sounds, soft, non-tender, nondistended, no guarding. Extremities without clubbing, cyanosis, or edema. Mild tenderness left thigh area. No rash of generalized distribution. Skin is warm and dry. AAO x3, no cranial nerve deficits, moves all 4 extremities, no focal neurologic deficits Hospital Course This is a 81-year-old male with history hypertension, renal insufficiency, cardiomegaly, paroxysmal A. fib, recent spinal surgery who initially presented to the hospital with shortness of breath, fever and altered mental status. Patient was initially on BiPAP but without any improvement, was admitted to the intensive care unit, initially intubated on June 07, 2016 for altered mental status and respiratory failure. He was found to have CO2 narcosis likely secondary to long-acting narcotics and pneumonia. Patient extubated 06/08/16. Please refer to the notes from the insulation cutter and former for details regarding patient's stay in the ICU. Patient was initially started on broad-spectrum antibiotics including vancomycin and Zosyn. Infectious disease was consulted, antibiotics were descalated to Zosyn. Postextubation, ABG remained within normal limits, patient was switched to oxygen. He was also started on Solu-Medrol which was tapered fast. His toxic metabolic encephalopathy resolved after several days. This was thought to be secondary to long-acting narcotics. His long-acting OxyContin was stopped and was switched to low-dose Percocet. He was also thought to have mild acute diastolic congestive heart failure for which he responded very well to Lasix. However creatinine started to increase hence Lasix was stopped. He had mild acute renal failure secondary to over diuresis. Lisinopril was held, nephrology was consulted,ultrasound showed atrophy of bilateral kidneys and renal cysts, creatinine showed continued improvement, patient was cleared by nephrology. It was thought that patient might have had aspiration pneumonia secondary to toxic metabolic encephalopathy. Patient also had mild dysphagia. A modified barium swallow was done which showed swallowing within normal limits. Patient was also cleared by infectious disease, recommended to switch antibiotics to Augmentin to finish 5 more days of treatment. For his hypertension, lisinopril was stopped because of increasing creatinine, patient was started on hydralazine and Norvasc. He will continue this until his creatinine goes back to normal and maybe switch back to lisinopril after follow-up with his primary care doctor. Of note, his Synthroid was increased because of elevated TSH and borderline low T3. He'll be discharged with home health care to aid with physical therapy. Pt Condition on Discharge: Good Discharge Disposition: Disch w/ Home Health Serv Discharge Time: > 30 minutes Discharge Instructions DIET: Follow Instructions for: Heart Healthy Diet Speech Therapy-Diet Recommends: Soft Activities you can perform: Regular-No Restrictions Follow up Referrals: PCP Follow-up - 2-3 Days New Medications: Ondansetron Odt (Ondansetron Odt) 4 Mg Tab 4 MG SL Q6HR PRN Nausea/Vomiting #20 Ref 0 TAB Amlodipine (Norvasc) 5 Mg Tab 5 MG PO DAILY HTN #30 TAB Amoxicillin-Clavulanate (Amoxicillin-Clavulanate) 875-125 mg Tab 875 MG PO Q12HR Pneumonia #10 TAB Docusate Sodium (Dok) 100 Mg Cap 100 MG PO Q12HR constipation #60 CAP Hydralazine (Hydralazine) 50 Mg Tab 50 MG PO Q8HR HTN #90 TAB Levothyroxine (Synthroid) 75 Mcg Tab 75 MCG PO DAILY@06 Hypothyroidism #30 TAB Oxycodone-Acetaminophen (Oxycodone-Acetaminophen) 5-325 mg Tab 1 TAB PO Q6H PRN pain 6-10 #20 TAB Continued Medications: Citalopram (Celexa) 20 Mg Tab 20 MG PO DAILY Control Depression #30 Ref 0 TAB Denosumab Inj (Prolia Inj) 60 Mg/Ml Inj 60 MG SQ Q180D Ref 0 VIAL Ginkgo Biloba (Ginkgo Biloba) 60 Mg Cap 60 MG PO DAILY Metoprolol Succinate ER 24 HR (Metoprolol Succinate ER 24 HR) 50 Mg Tab 75 MG PO DAILY #30 Ref 0 TAB Multiple Vitamins W/ Minerals (Multivitamin Adults) 1 Tab 1 TAB PO DAILY Nutritional Supplement TAB Pantoprazole (Protonix) 20 Mg Tab 20 MG PO DAILY Reflux #30 Ref 0 TAB Prednisone (Prednisone) 5 Mg Tab 7.5 MG PO DAILY Ref 0 TAB Tamsulosin (Flomax) 0.4 Mg Cap 0.8 MG PO HS Manage Prostate Problems #60 Ref 0 CAP Testosterone Cypionate Inj (Testosterone Cypionate Inj) Unknown Strength Inj Unknown Dose IM Q14D Hormone Replacement #1 Ref 0 VIAL Discontinued Medications: Levothyroxine (Synthroid) 50 Mcg Tab 50 MCG PO DAILY Thyroid Ref 0 TAB Lisinopril (Lisinopril) 10 Mg Tab 10 MG PO DAILY #30 Ref 0 TAB Oxycodone ER (Oxycontin) 20 Mg Tab 20 MG PO Q12HR Pain Management Ref 0 TAB Oxycodone-Acetaminophen (Percocet) 10-325 mg Tab 1 TAB PO BID PRN PAIN Ref 0 TAB Layla Colin MD Jun 12, 2016 08:05 4 MG SL Q6HR PRN Nausea/Vomiting #20 Ref 0 TAB Amlodipine (Norvasc) 5 Mg Tab 5 MG PO DAILY HTN #30 TAB Amoxicillin-Clavulanate (Amoxicillin-Clavulanate) 875-125 mg Tab 875 MG PO Q12HR Pneumonia #10 TAB Docusate Sodium (Dok) 100 Mg Cap 100 MG PO Q12HR constipation #60 CAP Hydralazine (Hydralazine) 50 Mg Tab 50 MG PO Q8HR HTN #90 TAB Levothyroxine (Synthroid) 75 Mcg Tab 75 MCG PO DAILY@06 Hypothyroidism #30 TAB Oxycodone-Acetaminophen (Oxycodone-Acetaminophen) 5-325 mg Tab 1 TAB PO Q6H PRN pain 6-10 #20 TAB Continued Medications: Citalopram (Celexa) 20 Mg Tab 20 MG PO DAILY Control Depression #30 Ref 0 TAB Denosumab Inj (Prolia Inj) 60 Mg/Ml Inj 60 MG SQ Q180D Ref 0 VIAL Ginkgo Biloba (Ginkgo Biloba) 60 Mg Cap 60 MG PO DAILY Metoprolol Succinate ER 24 HR (Metoprolol Succinate ER 24 HR) 50 Mg Tab 75 MG PO DAILY #30 Ref 0 TAB Multiple Vitamins W/ Minerals (Multivitamin Adults) 1 Tab 1 TAB PO DAILY Nutritional Supplement TAB Pantoprazole (Protonix) 20 Mg Tab 20 MG PO DAILY Reflux #30 Ref 0 TAB Prednisone (Prednisone) 5 Mg Tab 7.5 MG PO DAILY Ref 0 TAB Tamsulosin (Flomax) 0.4 Mg Cap 0.8 MG PO HS Manage Prostate Problems #60 Ref 0 CAP Testosterone Cypionate Inj (Testosterone Cypionate Inj) Unknown Strength Inj Unknown Dose IM Q14D Hormone Replacement #1 Ref 0 VIAL Discontinued Medications: Levothyroxine (Synthroid) 50 Mcg Tab 50 MCG PO DAILY Thyroid Ref 0 TAB Lisinopril (Lisinopril) 10 Mg Tab 10 MG PO DAILY #30 Ref 0 TAB Oxycodone ER (Oxycontin) 20 Mg Tab 20 MG PO Q12HR Pain Management Ref 0 TAB Oxycodone-Acetaminophen (Percocet) 10-325 mg Tab 1 TAB PO BID PRN PAIN Ref 0 TAB Layla Colin MD Jun 12, 2016 08:05
[2016-06-12 08:30] VITALS: PULSE 73
[2016-06-12 08:40] LABS: KERATOCYTES OCC (NORMAL); OVALOCYTES 1+ (NORMAL); SCAN/DIFF AUTO DIFF CONFIRMED
[2016-06-12] MEDS: PANTOPRAZOLE SOD 40 MG DELAYED RELEASE TAB PO SCH (08:41)
[2016-06-12] MEDS: amLODIPine BESYLATE 5 MG TAB PO SCH (08:41)
[2016-06-12] MEDS: METOPROLOL TARTRATE 25 MG TAB PO SCH (08:41)
[2016-06-12] MEDS: CITALOPRAM HYDROBROMIDE 20 MG TAB PO SCH (08:41)
[2016-06-12] MEDS: AMOXICILLIN/CLAVULANATE K 875 MG TAB PO SCH (08:41)
[2016-06-12] MEDS: DOCUSATE SODIUM 100 MG CAP PO SCH (08:42)
[2016-06-12] MEDS: MAGNESIUM HYDROXIDE SUSP 30 ML CUP PO SCH (08:42)
[2016-06-12] MEDS: NYSTATIN SUSP 500,000 U/5 ML CUP SWISH-SWAL SCH (08:42)
[2016-06-12] MEDS: SODIUM CHLORIDE 0.9% FLUSH 10 ML FLUSH IV FLUSH SCH (09:00)
== END 2016-06-12 10:26 | disposition home health service (06) | DRG 208 ==
LOC: NEPE 12:06 → NEDA 14:25 → N07A 16:40 → N03B 06-07 13:58 → N07A 06-10 12:05
PROVIDERS: ADMIT Hospitalist; ATTEND Hospitalist
PROC: 5A1935Z Respiratory Ventilation, Less than 24 Consecutive Hours (ICD-10-PCS; principal; 2016-06-07)
PROC: 0BH17EZ Insertion of Endotracheal Airway into Trachea, Via Natural or Artificial Opening (ICD-10-PCS; 2016-06-07)
DX: J96.02 Acute respiratory failure with hypercapnia (principal); J69.0 Pneumonitis due to inhalation of food and vomit; I50.33 Acute on chronic diastolic (congestive) heart failure; G92 Toxic encephalopathy; N17.9 Acute kidney failure, unspecified; E87.2 Acidosis; D47.2 Monoclonal gammopathy; I13.0 Hypertensive heart and chronic kidney disease with heart failure and stage 1 through stage 4 chronic kidney disease, or unspecified chronic kidney disease; N39.0 Urinary tract infection, site not specified; J96.01 Acute respiratory failure with hypoxia; I95.9 Hypotension, unspecified; G93.89 Other specified disorders of brain; E86.9 Volume depletion, unspecified; I48.0 Paroxysmal atrial fibrillation; R32 Unspecified urinary incontinence; N40.1 Benign prostatic hyperplasia with lower urinary tract symptoms; N18.9 Chronic kidney disease, unspecified; K21.9 Gastro-esophageal reflux disease without esophagitis; G89.29 Other chronic pain; D64.9 Anemia, unspecified; E03.9 Hypothyroidism, unspecified; K59.00 Constipation, unspecified; E83.51 Hypocalcemia; R13.10 Dysphagia, unspecified; N28.1 Cyst of kidney, acquired; G47.30 Sleep apnea, unspecified; M54.9 Dorsalgia, unspecified; M81.0 Age-related osteoporosis without current pathological fracture; F32.9 Major depressive disorder, single episode, unspecified; Z79.891 Long term (current) use of opiate analgesic; Z86.011 Personal history of benign neoplasm of the brain; Z98.1 Arthrodesis status
CPT/HCPCS: 31500; 36556; 36600; 70450; 71010; 74230; 76775; 80048; 80053; 81001; 82140; 82533; 82550; 82570; 82805; 83605; 83735; 83880; 83935; 84100; 84145; 84155; 84300; 84439; 84443; 84480; 84484; 85025; 85379; 86403; 87040; 87070; 87086; 87205; 87641; 93005; 93306; 93970; 94002; 94003; 94150; 94640; 94664; 94667; 96365; 96367; 96375; C9113; J0360; J0461; J0610; J1170; J1644; J1940; J2250; J2405; J2543; J2765; J2930; J3010; J3370; J7040; J7042; J7050

== ENCOUNTER 2018-01-13 20:27 | Inpatient (IN) ==
--- NOTE | 2018-01-13 21:14 | XR ---
EXAM DATE: 01/13/2018 9:09 PM EST AGE/SEX: 82 years / Male INDICATIONS: . Patient presents with fever, shortness of breath and flu symptoms. CLINICAL DATA: This is the patient's initial encounter. Patient reports that signs and symptoms have been present for 1 day and indicates a pain score of 8/10. MEDICAL/SURGICAL HISTORY: . Emphysema. Benign prostatic hyperplasia, (BPH) Osteoporosis. Hypert ension. Afib. Gastrointestinal ulcer. Renal failure. Chronic back pain. Depression. SURGICAL HISTORY : Cataract surgery. Brain surgery, benign tumor removal. Spinal fusion T1-T5 . COMPARISON: [facility] [place], CHEST SINGLE AP, 06/09/2016. . FINDINGS: Remote right-sided rib fractures again seen. Degenerative changes of the spine are noted. Postsurgica l changes seen at the lumbar spine, and moderate wedge compression suspected at the thoracolumbar evelyn ction. Cardiomegaly is noted. CONCLUSION: Clear lungs. Possible compression deformity at the thoracolumbar junction age indeterminate. Electronically signed by: Dread Patricio MD 01/13/2018 9:13 PM EST
[2018-01-13 21:30] LABS: Hematocrit 31.3 % (39.0-51.0); Hemoglobin 9.8 gm/dL (13.0-17.0); Lymph # (Auto) 0.4 th/mm3 (1.0-4.8); Lymph % (Auto) 3.6 % (9.0-44.0); Mean Corpuscular HGB Conc 31.4 % (32.0-36.0); Mean Corpuscular Hemoglobin 26.2 pg (27.0-34.0); Mean Corpuscular Volume 83.6 fL (80.0-100.0); Mean Platelet Volume 8.3 fL (7.0-11.0); Mono # (Auto) 0.3 th/mm3 (0.0-0.9); Mono % (Auto) 2.7 % (0.0-8.0); Neut # (Auto) 9.9 th/mm3 (1.8-7.7); Neut % (Auto) 93.7 % (16.0-70.0); Platelet Count 199 th/mm3 (150-450); Red Blood Count 3.75 mil/mm3 (4.50-5.90); Red Cell Distribution Width 18.5 % (11.6-17.2); White Blood Count 10.5 th/mm3 (4.0-11.0)
--- NOTE | 2018-01-13 21:32 | ED ---
HPI General Chief complaint: Abdominal Pain Stated complaint: flu symptoms Time Seen by Provider: 01/13/18 20:31 Source: family Mode of arrival: other Limitations: language barrier History of Present Illness HPI narrative: Patient is an 82-year-old male, past medical history significant for peptic ulcer disease, hypertension, hypothyroidism, who presents with complaint of "deteriorating over the last several days." He has had worsening generalized weakness with a cough. He has not had a fever. He denies any chest pain or shortness of breath. He denies any nausea, vomiting, diarrhea and last bowel movement was approximately 1 hour prior to arrival and normal. He recently [place] to the [place] after a 3-month trip to [facility]. Onset (ago): day(s) Radiation: non-radiation Severity: mild Relieving factors: none Exacerbating factors: none Associated symptoms: Reports cough Treatments prior to arrival: Reports none Related Data Home Medications Medication Instructions Recorded Confirmed amlodipine 5 mg PO DAILY 01/13/18 01/13/18 citalopram 20 mg PO DAILY 01/13/18 01/13/18 levothyroxine [Synthroid] 100 mcg PO DAILY 01/13/18 01/13/18 lisinopril 10 mg PO DAILY 01/13/18 01/13/18 metoprolol succinate 50 mg PO DAILY 01/13/18 01/13/18 pantoprazole 20 mg PO DAILY 01/13/18 01/13/18 prednisone 40 mg PO DAILY 01/13/18 01/13/18 tamsulosin [Flomax] 0.4 mg PO DAILY 01/13/18 01/13/18 Previous Rx's Medication Instructions Recorded hydrocodone-acetaminophen [[place]] 1 - 2 tab PO Q4-6H #50 tab 01/15/18 Allergies Allergy/AdvReac Type Severity Reaction Status Date / Time amoxicillin Allergy Severe Hives Verified 01/13/18 20:44 Review of Systems ROS: all other systems reviewed are negative [facility] Medical History Medical History Atrial fibrillation (Acute) History of MRSA infection (Acute ~01/14/18) BPH (benign prostatic hyperplasia) (Acute) Depression (Acute) HTN (hypertension) (Acute) Hypothyroid (Acute) PUD (peptic ulcer disease) (Acute) Surgical History Surgical History H/O neck surgery (Acute) Social History Social History Substance History: No History of Abuse Second Hand Smoke Exposure: No Smoking Status: Former smoker Tobacco Type: Cigars How Often Do You Have a Drink Containing Alcohol: Never Recent Travel in [facility] within the Last 8 Weeks: No Recent Out of Country Travel within the Last 8 Weeks: No Immunization History Tetanus Immunization: >5 Years Exam Narrative Exam Narrative: GENERAL: Chronically ill-appearing male in no acute distress SKIN: Focused skin assessment warm/dry. No rashes. HEAD: Atraumatic. Normocephalic. EYES: Pupils equal and round. No scleral icterus. No injection or drainage. ENT: No nasal bleeding or discharge. Mucous membranes pink and moist. NECK: Trachea midline. No JVD. CARDIOVASCULAR: Regular rate and rhythm. No murmur appreciated. Intact and equal peripheral pulses. RESPIRATORY: No accessory muscle use. Clear to auscultation. Breath sounds equal bilaterally. GASTROINTESTINAL: Abdomen soft, tenderness on the left side of the abdomen and suprapubic region, nondistended. Hepatic and splenic margins not palpable. MUSCULOSKELETAL: No obvious deformities. No clubbing. No cyanosis. No edema. NEUROLOGICAL: Awake and alert. No obvious cranial nerve deficits. Motor grossly within normal limits. Normal speech. PSYCHIATRIC: Appropriate mood and affect; insight and judgment normal. Course Initial Documented Vital Signs Temperature 99.7 F H 01/13/18 20:36 Pulse Rate 89 01/13/18 20:36 Respiratory Rate 22 01/13/18 20:36 Blood Pressure 153/78 H 01/13/18 20:36 Pulse Oximetry 98 01/13/18 20:36 Last Documented Vital Signs Temperature 98.7 F 01/23/18 18:00 Pulse Rate 81 01/23/18 20:07 Respiratory Rate 12 01/23/18 20:07 Blood Pressure 113/59 L 01/23/18 18:00 Pulse Oximetry 95 01/23/18 20:07 Sign Out Sign Out Data: Patient Sign Out occurred on 01/13/18 at 23:28. Patient's care was discussed, and care was transferred from Macy Romero MD to Chuck Washington. Sign Out Comment: Imaging pending. Dispo per results. Last updated by Macy Romero MD at 01/13/18 23:05 Post-Handoff Eval: pt has UTI with wbc 99 in urine and has classic urosepsis early lethargy confusion , weakness, diaphoretic Medical Decision Making MDM Narrative Medical decision making narrative: Patient is an 82-year-old male who presents with complaint of general malaise and weakness over the last several days. On exam he has tenderness in the abdomen on palpation. EKG shows atrial fibrillation without RVR. Per family and his physician he had a remote history of atrial fibrillation in the past that was secondary to an illness but has not had any recently. Chest x-ray does not show pneumonia. UA concerning for infection, thus he has been given Rocephin. CT of the abdomen/pelvis pending. Medical Screen Exam Complete: Yes Emergency Medical Condition: Yes Differential Diagnosis Differential Diagnosis: Differential diagnosis includes but is not limited to dysrhythmia, anemia, electrolyte abnormality, pneumonia, infection. Medical Records Medical records reviewed: Yes I reviewed the patient's medical records. Lab Data Result diagrams: 01/23/18 05:00 01/23/18 13:40 Lab Results 01/13/18 01/13/18 01/13/18 Range/Units 21:00 21:00 21:20 WBC 10.5 (4.0-11.0) th/mm3 RBC 3.75 L (4.50-5.90) mil/mm3 Hgb 9.8 L (13.0-17.0) gm/dL Hct 31.3 L (39.0-51.0) % MCV 83.6 (80.0-100.0) fL MCH 26.2 L (27.0-34.0) pg MCHC 31.4 L (32.0-36.0) % RDW 18.5 H (11.6-17.2) % Plt Count 199 (150-450) th/mm3 MPV 8.3 (7.0-11.0) fL Prelim Diff (Auto) Neut % (Auto) 93.7 H (16.0-70.0) % Lymph % (Auto) 3.6 L (9.0-44.0) % Woods % (Auto) 2.7 (0.0-8.0) % Eos % (Auto) 0.0 (0.0-4.0) % Baso % (Auto) 0.0 (0.0-2.0) % Neut # (Auto) 9.9 H (1.8-7.7) th/mm3 Lymph # (Auto) 0.4 L (1.0-4.8) th/mm3 Woods # (Auto) 0.3 (0.0-0.9) th/mm3 Eos # (Auto) 0.0 (0.0-0.4) th/mm3 Baso # (Auto) 0.0 (0.0-0.2) th/mm3 WBC Differential . Seg Neuts % (Manual) (16-70) % Band Neuts % (Manual) (0-6) % Lymphocytes % (Manual) (9-44) % Myelocytes % (Man) (0-0) % Abs Neuts (Manual) (1.8-7.7) th/mm3 Nucleated RBCs/100 WBC (0-0) /100 WBC Differential Comment Auto diff final Platelet Estimate (Normal) Platelet Morphology (Normal) ESR (0-20) mm/hr PT (9.8-11.6) sec INR Ratio APTT (23.4-31.7) sec Puncture Site Patient Temperature O2 Saturation (90-100) % ABG pH (7.380-7.420) ABG pCO2 (38-42) mmHg ABG pO2 (61-120) mmHg ABG HCO3 (22-26) mmol/L ABG O2 Content (12.0-20.0) Vol % ABG Base Excess (-2-2) mmol/L ABG Methemoglobin (0-2) % Blane Test Hemoglobin (12.0-16.0) G/DL Carboxyhemoglobin (0-4) % O2 Delivery Device Liter Flow L/M Vent Setting Inspired O2 % Critical Value Sodium 135 L (136-145) meq/L Potassium 4.3 (3.5-5.1) meq/L Chloride 103 (98-107) meq/L Carbon Dioxide 27.8 (21.0-32.0) meq/L Anion Gap 4 L (5-15) meq/L BUN 48 H (7-18) mg/dL Creatinine 1.80 H (0.60-1.30) mg/dL Estimated GFR 36 L (>89) mL/min POC Glucose (68-110) mg/dl Random Glucose 176 H (74-106) mg/dL Lactic Acid (0.4-2.0) mmol/L Calcium 8.2 L (8.5-10.1) mg/dL Prot Corrected Calcium (8.5-10.1) mg/dL Phosphorus (2.5-4.9) mg/dL Magnesium 1.9 (1.5-2.5) mg/dL Total Bilirubin 0.3 (0.2-1.0) mg/dL AST 26 (15-37) U/L ALT 31 (12-78) U/L Alkaline Phosphatase 116 (45-117) U/L Total Creatine Kinase (39-308) U/L Troponin I 0.02 (0.02-0.05) ng/mL C-Reactive Protein (0.00-0.30) mg/dL B-Natriuretic Peptide (0-100) pg/mL Total Protein 5.6 L (6.4-8.2) g/dL Total Protein (PEP) (6.4-8.2) gm/dL Albumin 1.8 L (3.4-5.0) g/dL Albumin (PEP) (3.50-5.00) gm/dL Albumin/Globulin Ratio (1.39-2.23) Prealbumin (20-40) mg/dL Venpl-3-Amfxajdxk (0.11-0.29) gm/dL Nhgfu-6-Amjqokvtx (0.22-1.00) gm/dL Beta Globulins (0.53-1.03) gm/dL Gamma Globulins (0.50-1.39) gm/dL PEP Pathologist Comment Vitamin B12 (193-986) pg/mL TSH (0.358-3.740) uIU/mL Free T4 (0.76-1.46) ng/dL Urine Color Yellow (Yellw/Straw) Urine Clarity Hazy H (Clear) Urine pH 5.0 (5.0-8.5) Ur Specific [place] 1.014 (1.002-1.035) Urine Protein 100 H (Neg-Trace) mg/dL Urine Glucose (UA) 50 (Negative) mg/dL Urine Ketones Negative (Negative) mg/dL Urine Occult Blood Negative (Negative) Urine Nitrate Negative (Negative) Urine Bilirubin Negative (Negative) Urine Urobilinogen Less than 2 (Less than 2) mg/dL Ur Leukocyte Esterase Large H (Negative) Urine RBC 1 (0-3) /hpf Urine WBC 99 H (0-5) /hpf Amorphous Sediment Few H (None) /hpf Urine Bacteria Few H (None) /hpf Hyaline Casts 1 (0-3) /lpf Urine Mucus Few H (Occasional) /lpf Micro UA Comment Culture indicated Ur Microscopic Review Not Reportable Urine Culture Comments Culture indicated Ur Random Creatinine (27-300) mg/dL Ur Random Sodium meq/L Synovial Color (Straw) Synovial Appearance (Clear) Synovial RBC (0-0) /mm3 Synovial Nuc Cells (0-200) /mm3 Synovial Neutrophils (0-25) % Synovial Histocytes % Synovial Crystals (None) Random Vancomycin Comment IgG (690-1690) mg/dL IgA (107-591) mg/dL IgM (37-225) mg/dL Free [place] Light Chains (3.3-19.4) mg/L Free Lambda Light Chain (5.7-26.3) mg/L Free [place]/Lambda Ratio (0.26-1.65) ratio Blood Type Blood Type Recheck Antibody Screen MTS Gel Crossmatch 01/14/18 01/14/18 01/14/18 Range/Units 02:30 02:30 02:30 WBC 9.1 (4.0-11.0) th/mm3 RBC 3.88 L (4.50-5.90) mil/mm3 Hgb 10.1 L (13.0-17.0) gm/dL Hct 32.3 L (39.0-51.0) % MCV 83.3 (80.0-100.0) fL MCH 26.0 L (27.0-34.0) pg MCHC 31.3 L (32.0-36.0) % RDW 18.6 H (11.6-17.2) % Plt Count 207 (150-450) th/mm3 MPV 8.1 (7.0-11.0) fL Prelim Diff (Auto) Neut % (Auto) 92.9 H (16.0-70.0) % Lymph % (Auto) 4.8 L (9.0-44.0) % Woods % (Auto) 2.2 (0.0-8.0) % Eos % (Auto) 0.0 (0.0-4.0) % Baso % (Auto) 0.1 (0.0-2.0) % Neut # (Auto) 8.5 H (1.8-7.7) th/mm3 Lymph # (Auto) 0.4 L (1.0-4.8) th/mm3 Woods # (Auto) 0.2 (0.0-0.9) th/mm3 Eos # (Auto) 0.0 (0.0-0.4) th/mm3 Baso # (Auto) 0.0 (0.0-0.2) th/mm3 WBC Differential . Seg Neuts % (Manual) (16-70) % Band Neuts % (Manual) (0-6) % Lymphocytes % (Manual) (9-44) % Myelocytes % (Man) (0-0) % Abs Neuts (Manual) (1.8-7.7) th/mm3 Nucleated RBCs/100 WBC (0-0) /100 WBC Differential Comment Auto diff final Platelet Estimate (Normal) Platelet Morphology (Normal) ESR (0-20) mm/hr PT (9.8-11.6) sec INR Ratio APTT (23.4-31.7) sec Puncture Site Patient Temperature O2 Saturation (90-100) % ABG pH (7.380-7.420) ABG pCO2 (38-42) mmHg ABG pO2 (61-120) mmHg ABG HCO3 (22-26) mmol/L ABG O2 Content (12.0-20.0) Vol % ABG Base Excess (-2-2) mmol/L ABG Methemoglobin (0-2) % Blane Test Hemoglobin (12.0-16.0) G/DL Carboxyhemoglobin (0-4) % O2 Delivery Device Liter Flow L/M Vent Setting Inspired O2 % Critical Value Sodium 142 (136-145) meq/L Potassium 4.1 (3.5-5.1) meq/L Chloride 105 (98-107) meq/L Carbon Dioxide 28.4 (21.0-32.0) meq/L Anion Gap 9 (5-15) meq/L BUN 45 H (7-18) mg/dL Creatinine 1.64 H (0.60-1.30) mg/dL Estimated GFR 41 L (>89) mL/min POC Glucose (68-110) mg/dl Random Glucose 102 (74-106) mg/dL Lactic Acid (0.4-2.0) mmol/L Calcium 8.3 L (8.5-10.1) mg/dL Prot Corrected Calcium (8.5-10.1) mg/dL Phosphorus (2.5-4.9) mg/dL Magnesium (1.5-2.5) mg/dL Total Bilirubin (0.2-1.0) mg/dL AST (15-37) U/L ALT (12-78) U/L Alkaline Phosphatase (45-117) U/L Total Creatine Kinase (39-308) U/L Troponin I (0.02-0.05) ng/mL C-Reactive Protein 17.20 H (0.00-0.30) mg/dL B-Natriuretic Peptide (0-100) pg/mL Total Protein (6.4-8.2) g/dL Total Protein (PEP) (6.4-8.2) gm/dL Albumin (3.4-5.0) g/dL Albumin (PEP) (3.50-5.00) gm/dL Albumin/Globulin Ratio (1.39-2.23) Prealbumin (20-40) mg/dL Tbcwc-3-Pdvvrhuit (0.11-0.29) gm/dL Uwzgv-9-Xirlglhmt (0.22-1.00) gm/dL Beta Globulins (0.53-1.03) gm/dL Gamma Globulins (0.50-1.39) gm/dL PEP Pathologist Comment Vitamin B12 1676 H (193-986) pg/mL TSH (0.358-3.740) uIU/mL Free T4 (0.76-1.46) ng/dL Urine Color (Yellw/Straw) Urine Clarity (Clear) Urine pH (5.0-8.5) Ur Specific [place] (1.002-1.035) Urine Protein (Neg-Trace) mg/dL Urine Glucose (UA) (Negative) mg/dL Urine Ketones (Negative) mg/dL Urine Occult Blood (Negative) Urine Nitrate (Negative) Urine Bilirubin (Negative) Urine Urobilinogen (Less than 2) mg/dL Ur Leukocyte Esterase (Negative) Urine RBC (0-3) /hpf Urine WBC (0-5) /hpf Amorphous Sediment (None) /hpf Urine Bacteria (None) /hpf Hyaline Casts (0-3) /lpf Urine Mucus (Occasional) /lpf Micro UA Comment Ur Microscopic Review Urine Culture Comments Ur Random Creatinine (27-300) mg/dL Ur Random Sodium meq/L Synovial Color (Straw) Synovial Appearance (Clear) Synovial RBC (0-0) /mm3 Synovial Nuc Cells (0-200) /mm3 Synovial Neutrophils (0-25) % Synovial Histocytes % Synovial Crystals (None) Random Vancomycin Comment IgG (690-1690) mg/dL IgA (107-591) mg/dL IgM (37-225) mg/dL Free [place] Light Chains (3.3-19.4) mg/L Free Lambda Light Chain (5.7-26.3) mg/L Free [place]/Lambda Ratio (0.26-1.65) ratio Blood Type Blood Type Recheck Antibody Screen MTS Gel Crossmatch 01/14/18 01/14/18 01/14/18 Range/Units 10:22 16:35 16:35 WBC (4.0-11.0) th/mm3 RBC (4.50-5.90) mil/mm3 Hgb (13.0-17.0) gm/dL Hct (39.0-51.0) % MCV (80.0-100.0) fL MCH (27.0-34.0) pg MCHC (32.0-36.0) % RDW (11.6-17.2) % Plt Count (150-450) th/mm3 MPV (7.0-11.0) fL Prelim Diff (Auto) Neut % (Auto) (16.0-70.0) % Lymph % (Auto) (9.0-44.0) % Woods % (Auto) (0.0-8.0) % Eos % (Auto) (0.0-4.0) % Baso % (Auto) (0.0-2.0) % Neut # (Auto) (1.8-7.7) th/mm3 Lymph # (Auto) (1.0-4.8) th/mm3 [place] # (Auto) (0.0-0.9) th/mm3 Eos # (Auto) (0.0-0.4) th/mm3 Baso # (Auto) (0.0-0.2) th/mm3 WBC Differential Seg Neuts % (Manual) (16-70) % Band Neuts % (Manual) (0-6) % Lymphocytes % (Manual) (9-44) % Myelocytes % (Man) (0-0) % Abs Neuts (Manual) (1.8-7.7) th/mm3 Nucleated RBCs/100 WBC (0-0) /100 WBC Differential Comment Platelet Estimate (Normal) Platelet Morphology (Normal) ESR (0-20) mm/hr PT (9.8-11.6) sec INR Ratio APTT (23.4-31.7) sec Puncture Site Patient Temperature O2 Saturation (90-100) % ABG pH (7.380-7.420) ABG pCO2 (38-42) mmHg ABG pO2 (61-120) mmHg ABG HCO3 (22-26) mmol/L ABG O2 Content (12.0-20.0) Vol % ABG Base Excess (-2-2) mmol/L ABG Methemoglobin (0-2) % Blane Test Hemoglobin (12.0-16.0) G/DL Carboxyhemoglobin (0-4) % O2 Delivery Device Liter Flow L/M Vent Setting Inspired O2 % Critical Value Sodium (136-145) meq/L Potassium (3.5-5.1) meq/L Chloride (98-107) meq/L Carbon Dioxide (21.0-32.0) meq/L Anion Gap (5-15) meq/L BUN (7-18) mg/dL Creatinine (0.60-1.30) mg/dL Estimated GFR (>89) mL/min POC Glucose (68-110) mg/dl Random Glucose (74-106) mg/dL Lactic Acid 0.6 (0.4-2.0) mmol/L Calcium (8.5-10.1) mg/dL Prot Corrected Calcium (8.5-10.1) mg/dL Phosphorus (2.5-4.9) mg/dL Magnesium (1.5-2.5) mg/dL Total Bilirubin (0.2-1.0) mg/dL AST (15-37) U/L ALT (12-78) U/L Alkaline Phosphatase (45-117) U/L Total Creatine Kinase 28 L (39-308) U/L Troponin I (0.02-0.05) ng/mL C-Reactive Protein 16.00 H (0.00-0.30) mg/dL B-Natriuretic Peptide 789 H (0-100) pg/mL Total Protein (6.4-8.2) g/dL Total Protein (PEP) (6.4-8.2) gm/dL Albumin (3.4-5.0) g/dL Albumin (PEP) (3.50-5.00) gm/dL Albumin/Globulin Ratio (1.39-2.23) Prealbumin (20-40) mg/dL Erjbs-1-Nzqejevlg (0.11-0.29) gm/dL Ebamg-9-Zepkdnxhh (0.22-1.00) gm/dL Beta Globulins (0.53-1.03) gm/dL Gamma Globulins (0.50-1.39) gm/dL PEP Pathologist Comment Vitamin B12 1601 H (193-986) pg/mL TSH 2.270 (0.358-3.740) uIU/mL Free T4 1.11 (0.76-1.46) ng/dL Urine Color (Yellw/Straw) Urine Clarity (Clear) Urine pH (5.0-8.5) Ur Specific [place] (1.002-1.035) Urine Protein (Neg-Trace) mg/dL Urine Glucose (UA) (Negative) mg/dL Urine Ketones (Negative) mg/dL Urine Occult Blood (Negative) Urine Nitrate (Negative) Urine Bilirubin (Negative) Urine Urobilinogen (Less than 2) mg/dL Ur Leukocyte Esterase (Negative) Urine RBC (0-3) /hpf Urine WBC (0-5) /hpf Amorphous Sediment (None) /hpf Urine Bacteria (None) /hpf Hyaline Casts (0-3) /lpf Urine Mucus (Occasional) /lpf Micro UA Comment Ur Microscopic Review Urine Culture Comments Ur Random Creatinine (27-300) mg/dL Ur Random Sodium meq/L Synovial Color (Straw) Synovial Appearance (Clear) Synovial RBC (0-0) /mm3 Synovial Nuc Cells (0-200) /mm3 Synovial Neutrophils (0-25) % Synovial Histocytes % Synovial Crystals (None) Random Vancomycin Comment IgG (690-1690) mg/dL IgA (107-591) mg/dL IgM (37-225) mg/dL Free [place] Light Chains (3.3-19.4) mg/L Free Lambda Light Chain (5.7-26.3) mg/L Free [place]/Lambda Ratio (0.26-1.65) ratio Blood Type Blood Type Recheck Antibody Screen MTS Gel Crossmatch 01/14/18 01/14/18 01/14/18 Range/Units 16:35 16:35 19:08 WBC (4.0-11.0) th/mm3 RBC (4.50-5.90) mil/mm3 Hgb (13.0-17.0) gm/dL Hct (39.0-51.0) % MCV (80.0-100.0) fL MCH (27.0-34.0) pg MCHC (32.0-36.0) % RDW (11.6-17.2) % Plt Count (150-450) th/mm3 MPV (7.0-11.0) fL Prelim Diff (Auto) Neut % (Auto) (16.0-70.0) % Lymph % (Auto) (9.0-44.0) % Woods % (Auto) (0.0-8.0) % Eos % (Auto) (0.0-4.0) % Baso % (Auto) (0.0-2.0) % Neut # (Auto) (1.8-7.7) th/mm3 Lymph # (Auto) (1.0-4.8) th/mm3 [place] # (Auto) (0.0-0.9) th/mm3 Eos # (Auto) (0.0-0.4) th/mm3 Baso # (Auto) (0.0-0.2) th/mm3 WBC Differential Seg Neuts % (Manual) (16-70) % Band Neuts % (Manual) (0-6) % Lymphocytes % (Manual) (9-44) % Myelocytes % (Man) (0-0) % Abs Neuts (Manual) (1.8-7.7) th/mm3 Nucleated RBCs/100 WBC (0-0) /100 WBC Differential Comment Platelet Estimate (Normal) Platelet Morphology (Normal) ESR 71 H (0-20) mm/hr PT 12.2 H (9.8-11.6) sec INR 1.2 Ratio APTT (23.4-31.7) sec Puncture Site Patient Temperature O2 Saturation (90-100) % ABG pH (7.380-7.420) ABG pCO2 (38-42) mmHg ABG pO2 (61-120) mmHg ABG HCO3 (22-26) mmol/L ABG O2 Content (12.0-20.0) Vol % ABG Base Excess (-2-2) mmol/L ABG Methemoglobin (0-2) % Blane Test Hemoglobin (12.0-16.0) G/DL Carboxyhemoglobin (0-4) % O2 Delivery Device Liter Flow L/M Vent Setting Inspired O2 % Critical Value Sodium (136-145) meq/L Potassium (3.5-5.1) meq/L Chloride (98-107) meq/L Carbon Dioxide (21.0-32.0) meq/L Anion Gap (5-15) meq/L BUN (7-18) mg/dL Creatinine (0.60-1.30) mg/dL Estimated GFR (>89) mL/min POC Glucose (68-110) mg/dl Random Glucose (74-106) mg/dL Lactic Acid (0.4-2.0) mmol/L Calcium (8.5-10.1) mg/dL Prot Corrected Calcium (8.5-10.1) mg/dL Phosphorus (2.5-4.9) mg/dL Magnesium (1.5-2.5) mg/dL Total Bilirubin (0.2-1.0) mg/dL AST (15-37) U/L ALT (12-78) U/L Alkaline Phosphatase (45-117) U/L Total Creatine Kinase (39-308) U/L Troponin I (0.02-0.05) ng/mL C-Reactive Protein (0.00-0.30) mg/dL B-Natriuretic Peptide (0-100) pg/mL Total Protein (6.4-8.2) g/dL Total Protein (PEP) (6.4-8.2) gm/dL Albumin (3.4-5.0) g/dL Albumin (PEP) (3.50-5.00) gm/dL Albumin/Globulin Ratio (1.39-2.23) Prealbumin (20-40) mg/dL Qjvxa-8-Wfpsdodgt (0.11-0.29) gm/dL Qusgi-5-Mzcxrrysr (0.22-1.00) gm/dL Beta Globulins (0.53-1.03) gm/dL Gamma Globulins (0.50-1.39) gm/dL PEP Pathologist Comment Vitamin B12 (193-986) pg/mL TSH (0.358-3.740) uIU/mL Free T4 (0.76-1.46) ng/dL Urine Color (Yellw/Straw) Urine Clarity (Clear) Urine pH (5.0-8.5) Ur Specific [place] (1.002-1.035) Urine Protein (Neg-Trace) mg/dL Urine Glucose (UA) (Negative) mg/dL Urine Ketones (Negative) mg/dL Urine Occult Blood (Negative) Urine Nitrate (Negative) Urine Bilirubin (Negative) Urine Urobilinogen (Less than 2) mg/dL Ur Leukocyte Esterase (Negative) Urine RBC (0-3) /hpf Urine WBC (0-5) /hpf Amorphous Sediment (None) /hpf Urine Bacteria (None) /hpf Hyaline Casts (0-3) /lpf Urine Mucus (Occasional) /lpf Micro UA Comment Ur Microscopic Review Urine Culture Comments Ur Random Creatinine (27-300) mg/dL Ur Random Sodium meq/L Synovial Color (Straw) Synovial Appearance (Clear) Synovial RBC (0-0) /mm3 Synovial Nuc Cells (0-200) /mm3 Synovial Neutrophils (0-25) % Synovial Histocytes % Synovial Crystals None (None) Random Vancomycin Comment IgG (690-1690) mg/dL IgA (107-591) mg/dL IgM (37-225) mg/dL Free [place] Light Chains (3.3-19.4) mg/L Free Lambda Light Chain (5.7-26.3) mg/L Free [place]/Lambda Ratio (0.26-1.65) ratio Blood Type Blood Type Recheck Antibody Screen MTS Gel Crossmatch 01/14/18 01/14/18 01/15/18 Range/Units 19:08 21:42 04:40 WBC 10.8 (4.0-11.0) th/mm3 RBC 3.36 L (4.50-5.90) mil/mm3 Hgb 8.9 L (13.0-17.0) gm/dL Hct 27.7 L (39.0-51.0) % MCV 82.5 (80.0-100.0) fL MCH 26.5 L (27.0-34.0) pg MCHC 32.1 (32.0-36.0) % RDW 18.7 H (11.6-17.2) % Plt Count 187 (150-450) th/mm3 MPV 7.9 (7.0-11.0) fL Prelim Diff (Auto) Neut % (Auto) (16.0-70.0) % Lymph % (Auto) (9.0-44.0) % Woods % (Auto) (0.0-8.0) % Eos % (Auto) (0.0-4.0) % Baso % (Auto) (0.0-2.0) % Neut # (Auto) (1.8-7.7) th/mm3 Lymph # (Auto) (1.0-4.8) th/mm3 Woods # (Auto) (0.0-0.9) th/mm3 Eos # (Auto) (0.0-0.4) th/mm3 Baso # (Auto) (0.0-0.2) th/mm3 WBC Differential Seg Neuts % (Manual) (16-70) % Band Neuts % (Manual) (0-6) % Lymphocytes % (Manual) (9-44) % Myelocytes % (Man) (0-0) % Abs Neuts (Manual) (1.8-7.7) th/mm3 Nucleated RBCs/100 WBC (0-0) /100 WBC Differential Comment Platelet Estimate (Normal) Platelet Morphology (Normal) ESR (0-20) mm/hr PT 12.3 H (9.8-11.6) sec INR 1.2 Ratio APTT 38.0 H (23.4-31.7) sec Puncture Site Patient Temperature O2 Saturation (90-100) % ABG pH (7.380-7.420) ABG pCO2 (38-42) mmHg ABG pO2 (61-120) mmHg ABG HCO3 (22-26) mmol/L ABG O2 Content (12.0-20.0) Vol % ABG Base Excess (-2-2) mmol/L ABG Methemoglobin (0-2) % Blane Test Hemoglobin (12.0-16.0) G/DL Carboxyhemoglobin (0-4) % O2 Delivery Device Liter Flow L/M Vent Setting Inspired O2 % Critical Value Sodium (136-145) meq/L Potassium (3.5-5.1) meq/L Chloride (98-107) meq/L Carbon Dioxide (21.0-32.0) meq/L Anion Gap (5-15) meq/L BUN (7-18) mg/dL Creatinine (0.60-1.30) mg/dL Estimated GFR (>89) mL/min POC Glucose (68-110) mg/dl Random Glucose (74-106) mg/dL Lactic Acid (0.4-2.0) mmol/L Calcium (8.5-10.1) mg/dL Prot Corrected Calcium (8.5-10.1) mg/dL Phosphorus (2.5-4.9) mg/dL Magnesium (1.5-2.5) mg/dL Total Bilirubin (0.2-1.0) mg/dL AST (15-37) U/L ALT (12-78) U/L Alkaline Phosphatase (45-117) U/L Total Creatine Kinase (39-308) U/L Troponin I (0.02-0.05) ng/mL C-Reactive Protein (0.00-0.30) mg/dL B-Natriuretic Peptide (0-100) pg/mL Total Protein (6.4-8.2) g/dL Total Protein (PEP) (6.4-8.2) gm/dL Albumin (3.4-5.0) g/dL Albumin (PEP) (3.50-5.00) gm/dL Albumin/Globulin Ratio (1.39-2.23) Prealbumin (20-40) mg/dL [place]-1-Vodeflrnl (0.11-0.29) gm/dL Ttzie-2-Hdemabwhp (0.22-1.00) gm/dL Beta Globulins (0.53-1.03) gm/dL Gamma Globulins (0.50-1.39) gm/dL PEP Pathologist Comment Vitamin B12 (193-986) pg/mL TSH (0.358-3.740) uIU/mL Free T4 (0.76-1.46) ng/dL Urine Color (Yellw/Straw) Urine Clarity (Clear) Urine pH (5.0-8.5) Ur Specific [place] (1.002-1.035) Urine Protein (Neg-Trace) mg/dL Urine Glucose (UA) (Negative) mg/dL Urine Ketones (Negative) mg/dL Urine Occult Blood (Negative) Urine Nitrate (Negative) Urine Bilirubin (Negative) Urine Urobilinogen (Less than 2) mg/dL Ur Leukocyte Esterase (Negative) Urine RBC (0-3) /hpf Urine WBC (0-5) /hpf Amorphous Sediment (None) /hpf Urine Bacteria (None) /hpf Hyaline Casts (0-3) /lpf Urine Mucus (Occasional) /lpf Micro UA Comment Ur Microscopic Review Urine Culture Comments Ur Random Creatinine (27-300) mg/dL Ur Random Sodium meq/L Synovial Color Straw (Straw) Synovial Appearance Marked H (Clear) Synovial RBC 1200 H (0-0) /mm3 Synovial Nuc Cells 70315 H (0-200) /mm3 Synovial Neutrophils 97 H (0-25) % Synovial Histocytes 3 % Synovial Crystals (None) Random Vancomycin Comment IgG (690-1690) mg/dL IgA (107-591) mg/dL IgM (37-225) mg/dL Free [place] Light Chains (3.3-19.4) mg/L Free Lambda Light Chain (5.7-26.3) mg/L Free [place]/Lambda Ratio (0.26-1.65) ratio Blood Type Blood Type Recheck Antibody Screen MTS Gel Crossmatch 01/15/18 01/15/18 01/16/18 Range/Units 11:44 11:44 05:40 WBC 8.2 (4.0-11.0) th/mm3 RBC 3.12 L (4.50-5.90) mil/mm3 Hgb 8.2 L (13.0-17.0) gm/dL Hct 26.2 L (39.0-51.0) % MCV 83.9 (80.0-100.0) fL MCH 26.1 L (27.0-34.0) pg MCHC 31.1 L (32.0-36.0) % RDW 19.0 H (11.6-17.2) % Plt Count 171 (150-450) th/mm3 MPV 7.7 (7.0-11.0) fL Prelim Diff (Auto) Neut % (Auto) 94.2 H (16.0-70.0) % Lymph % (Auto) 3.2 L (9.0-44.0) % Woods % (Auto) 2.5 (0.0-8.0) % Eos % (Auto) 0.0 (0.0-4.0) % Baso % (Auto) 0.1 (0.0-2.0) % Neut # (Auto) 7.7 (1.8-7.7) th/mm3 Lymph # (Auto) 0.3 L (1.0-4.8) th/mm3 Woods # (Auto) 0.2 (0.0-0.9) th/mm3 Eos # (Auto) 0.0 (0.0-0.4) th/mm3 Baso # (Auto) 0.0 (0.0-0.2) th/mm3 WBC Differential . Seg Neuts % (Manual) (16-70) % Band Neuts % (Manual) (0-6) % Lymphocytes % (Manual) (9-44) % Myelocytes % (Man) (0-0) % Abs Neuts (Manual) (1.8-7.7) th/mm3 Nucleated RBCs/100 WBC (0-0) /100 WBC Differential Comment Auto diff final Platelet Estimate (Normal) Platelet Morphology (Normal) ESR (0-20) mm/hr PT (9.8-11.6) sec INR Ratio APTT (23.4-31.7) sec Puncture Site Patient Temperature O2 Saturation (90-100) % ABG pH (7.380-7.420) ABG pCO2 (38-42) mmHg ABG pO2 (61-120) mmHg ABG HCO3 (22-26) mmol/L ABG O2 Content (12.0-20.0) Vol % ABG Base Excess (-2-2) mmol/L ABG Methemoglobin (0-2) % Blane Test Hemoglobin (12.0-16.0) G/DL Carboxyhemoglobin (0-4) % O2 Delivery Device Liter Flow L/M Vent Setting Inspired O2 % Critical Value Sodium (136-145) meq/L Potassium (3.5-5.1) meq/L Chloride (98-107) meq/L Carbon Dioxide (21.0-32.0) meq/L Anion Gap (5-15) meq/L BUN (7-18) mg/dL Creatinine (0.60-1.30) mg/dL Estimated GFR (>89) mL/min POC Glucose (68-110) mg/dl Random Glucose (74-106) mg/dL Lactic Acid (0.4-2.0) mmol/L Calcium (8.5-10.1) mg/dL Prot Corrected Calcium (8.5-10.1) mg/dL Phosphorus (2.5-4.9) mg/dL Magnesium (1.5-2.5) mg/dL Total Bilirubin (0.2-1.0) mg/dL AST (15-37) U/L ALT (12-78) U/L Alkaline Phosphatase (45-117) U/L Total Creatine Kinase (39-308) U/L Troponin I (0.02-0.05) ng/mL C-Reactive Protein (0.00-0.30) mg/dL B-Natriuretic Peptide (0-100) pg/mL Total Protein (6.4-8.2) g/dL Total Protein (PEP) 4.3 L (6.4-8.2) gm/dL Albumin (3.4-5.0) g/dL Albumin (PEP) 1.82 L (3.50-5.00) gm/dL Albumin/Globulin Ratio 0.73 L (1.39-2.23) Prealbumin (20-40) mg/dL Ldrpp-6-Xnbgrznly 0.31 H (0.11-0.29) gm/dL Xjlor-8-Dbzdcgojh 0.86 (0.22-1.00) gm/dL Beta Globulins 0.58 (0.53-1.03) gm/dL Gamma Globulins 0.74 (0.50-1.39) gm/dL PEP Pathologist Comment Vitamin B12 (193-986) pg/mL TSH (0.358-3.740) uIU/mL Free T4 (0.76-1.46) ng/dL Urine Color (Yellw/Straw) Urine Clarity (Clear) Urine pH (5.0-8.5) Ur Specific [place] (1.002-1.035) Urine Protein (Neg-Trace) mg/dL Urine Glucose (UA) (Negative) mg/dL Urine Ketones (Negative) mg/dL Urine Occult Blood (Negative) Urine Nitrate (Negative) Urine Bilirubin (Negative) Urine Urobilinogen (Less than 2) mg/dL Ur Leukocyte Esterase (Negative) Urine RBC (0-3) /hpf Urine WBC (0-5) /hpf Amorphous Sediment (None) /hpf Urine Bacteria (None) /hpf Hyaline Casts (0-3) /lpf Urine Mucus (Occasional) /lpf Micro UA Comment Ur Microscopic Review Urine Culture Comments Ur Random Creatinine (27-300) mg/dL Ur Random Sodium meq/L Synovial Color (Straw) Synovial Appearance (Clear) Synovial RBC (0-0) /mm3 Synovial Nuc Cells (0-200) /mm3 Synovial Neutrophils (0-25) % Synovial Histocytes % Synovial Crystals (None) Random Vancomycin Comment IgG 552 L (690-1690) mg/dL IgA 182 (107-591) mg/dL IgM 36 L (37-225) mg/dL Free [place] Light Chains 53.90 H (3.3-19.4) mg/L Free Lambda Light Chain 28.50 H (5.7-26.3) mg/L Free [place]/Lambda Ratio 1.89 H (0.26-1.65) ratio Blood Type Blood Type Recheck Antibody Screen MTS Gel Crossmatch 01/16/18 01/17/18 01/17/18 Range/Units 05:40 05:12 21:50 WBC (4.0-11.0) th/mm3 RBC (4.50-5.90) mil/mm3 Hgb (13.0-17.0) gm/dL Hct (39.0-51.0) % MCV (80.0-100.0) fL MCH (27.0-34.0) pg MCHC (32.0-36.0) % RDW (11.6-17.2) % Plt Count (150-450) th/mm3 MPV (7.0-11.0) fL Prelim Diff (Auto) Neut % (Auto) (16.0-70.0) % Lymph % (Auto) (9.0-44.0) % Woods % (Auto) (0.0-8.0) % Eos % (Auto) (0.0-4.0) % Baso % (Auto) (0.0-2.0) % Neut # (Auto) (1.8-7.7) th/mm3 Lymph # (Auto) (1.0-4.8) th/mm3 [place] # (Auto) (0.0-0.9) th/mm3 Eos # (Auto) (0.0-0.4) th/mm3 Baso # (Auto) (0.0-0.2) th/mm3 WBC Differential Seg Neuts % (Manual) (16-70) % Band Neuts % (Manual) (0-6) % Lymphocytes % (Manual) (9-44) % Myelocytes % (Man) (0-0) % Abs Neuts (Manual) (1.8-7.7) th/mm3 Nucleated RBCs/100 WBC (0-0) /100 WBC Differential Comment Platelet Estimate (Normal) Platelet Morphology (Normal) ESR (0-20) mm/hr PT (9.8-11.6) sec INR Ratio APTT (23.4-31.7) sec Puncture Site Patient Temperature O2 Saturation (90-100) % ABG pH (7.380-7.420) ABG pCO2 (38-42) mmHg ABG pO2 (61-120) mmHg ABG HCO3 (22-26) mmol/L ABG O2 Content (12.0-20.0) Vol % ABG Base Excess (-2-2) mmol/L ABG Methemoglobin (0-2) % Blane Test Hemoglobin (12.0-16.0) G/DL Carboxyhemoglobin (0-4) % O2 Delivery Device Liter Flow L/M Vent Setting Inspired O2 % Critical Value Sodium 141 141 (136-145) meq/L Potassium 4.2 4.1 (3.5-5.1) meq/L Chloride 109 H 107 (98-107) meq/L Carbon Dioxide 25.7 27.2 (21.0-32.0) meq/L Anion Gap 6 7 (5-15) meq/L BUN 42 H 50 H (7-18) mg/dL Creatinine 1.51 H 1.76 H (0.60-1.30) mg/dL Estimated GFR 45 L 37 L (>89) mL/min POC Glucose (68-110) mg/dl Random Glucose 74 246 H D (74-106) mg/dL Lactic Acid (0.4-2.0) mmol/L Calcium 7.5 L 7.6 L (8.5-10.1) mg/dL Prot Corrected Calcium (8.5-10.1) mg/dL Phosphorus (2.5-4.9) mg/dL Magnesium 1.7 (1.5-2.5) mg/dL Total Bilirubin 0.2 (0.2-1.0) mg/dL AST 10 L (15-37) U/L ALT 17 (12-78) U/L Alkaline Phosphatase 89 (45-117) U/L Total Creatine Kinase (39-308) U/L Troponin I (0.02-0.05) ng/mL C-Reactive Protein (0.00-0.30) mg/dL B-Natriuretic Peptide (0-100) pg/mL Total Protein 4.9 L D (6.4-8.2) g/dL Total Protein (PEP) (6.4-8.2) gm/dL Albumin 1.6 L (3.4-5.0) g/dL Albumin (PEP) (3.50-5.00) gm/dL Albumin/Globulin Ratio (1.39-2.23) Prealbumin (20-40) mg/dL Mecqx-1-Gxbcjyykq (0.11-0.29) gm/dL Xulrk-8-Lhntjhtay (0.22-1.00) gm/dL Beta Globulins (0.53-1.03) gm/dL Gamma Globulins (0.50-1.39) gm/dL PEP Pathologist Comment Vitamin B12 (193-986) pg/mL TSH (0.358-3.740) uIU/mL Free T4 (0.76-1.46) ng/dL Urine Color (Yellw/Straw) Urine Clarity (Clear) Urine pH (5.0-8.5) Ur Specific [place] (1.002-1.035) Urine Protein (Neg-Trace) mg/dL Urine Glucose (UA) (Negative) mg/dL Urine Ketones (Negative) mg/dL Urine Occult Blood (Negative) Urine Nitrate (Negative) Urine Bilirubin (Negative) Urine Urobilinogen (Less than 2) mg/dL Ur Leukocyte Esterase (Negative) Urine RBC (0-3) /hpf Urine WBC (0-5) /hpf Amorphous Sediment (None) /hpf Urine Bacteria (None) /hpf Hyaline Casts (0-3) /lpf Urine Mucus (Occasional) /lpf Micro UA Comment Ur Microscopic Review Urine Culture Comments Ur Random Creatinine 65 (27-300) mg/dL Ur Random Sodium 31 meq/L Synovial Color (Straw) Synovial Appearance (Clear) Synovial RBC (0-0) /mm3 Synovial Nuc Cells (0-200) /mm3 Synovial Neutrophils (0-25) % Synovial Histocytes % Synovial Crystals (None) Random Vancomycin 12.9 Comment IgG (690-1690) mg/dL IgA (107-591) mg/dL IgM (37-225) mg/dL Free [place] Light Chains (3.3-19.4) mg/L Free Lambda Light Chain (5.7-26.3) mg/L Free [place]/Lambda Ratio (0.26-1.65) ratio Blood Type Blood Type Recheck Antibody Screen MTS Gel Crossmatch 01/18/18 01/18/18 01/18/18 Range/Units 03:30 03:30 03:30 WBC 8.6 (4.0-11.0) th/mm3 RBC 3.52 L (4.50-5.90) mil/mm3 Hgb 9.2 L (13.0-17.0) gm/dL Hct 30.1 L (39.0-51.0) % MCV 85.5 (80.0-100.0) fL MCH 26.0 L (27.0-34.0) pg MCHC 30.4 L (32.0-36.0) % RDW 19.0 H (11.6-17.2) % Plt Count 199 (150-450) th/mm3 MPV 8.0 (7.0-11.0) fL Prelim Diff (Auto) Neut % (Auto) 94.5 H (16.0-70.0) % Lymph % (Auto) 3.8 L (9.0-44.0) % Woods % (Auto) 1.5 (0.0-8.0) % Eos % (Auto) 0.1 (0.0-4.0) % Baso % (Auto) 0.1 (0.0-2.0) % Neut # (Auto) 8.1 H (1.8-7.7) th/mm3 Lymph # (Auto) 0.3 L (1.0-4.8) th/mm3 [place] # (Auto) 0.1 (0.0-0.9) th/mm3 Eos # (Auto) 0.0 (0.0-0.4) th/mm3 Baso # (Auto) 0.0 (0.0-0.2) th/mm3 WBC Differential . Seg Neuts % (Manual) (16-70) % Band Neuts % (Manual) (0-6) % Lymphocytes % (Manual) (9-44) % Myelocytes % (Man) (0-0) % Abs Neuts (Manual) (1.8-7.7) th/mm3 Nucleated RBCs/100 WBC (0-0) /100 WBC Differential Comment Auto diff final Platelet Estimate (Normal) Platelet Morphology (Normal) ESR (0-20) mm/hr PT (9.8-11.6) sec INR Ratio APTT (23.4-31.7) sec Puncture Site Patient Temperature O2 Saturation (90-100) % ABG pH (7.380-7.420) ABG pCO2 (38-42) mmHg ABG pO2 (61-120) mmHg ABG HCO3 (22-26) mmol/L ABG O2 Content (12.0-20.0) Vol % ABG Base Excess (-2-2) mmol/L ABG Methemoglobin (0-2) % Blane Test Hemoglobin (12.0-16.0) G/DL Carboxyhemoglobin (0-4) % O2 Delivery Device Liter Flow L/M Vent Setting Inspired O2 % Critical Value Sodium 141 (136-145) meq/L Potassium 4.2 (3.5-5.1) meq/L Chloride 106 (98-107) meq/L Carbon Dioxide 28.8 (21.0-32.0) meq/L Anion Gap 6 (5-15) meq/L BUN 49 H (7-18) mg/dL Creatinine 1.96 H (0.60-1.30) mg/dL Estimated GFR 33 L (>89) mL/min POC Glucose (68-110) mg/dl Random Glucose 181 H (74-106) mg/dL Lactic Acid (0.4-2.0) mmol/L Calcium 7.7 L (8.5-10.1) mg/dL Prot Corrected Calcium (8.5-10.1) mg/dL Phosphorus 4.2 (2.5-4.9) mg/dL Magnesium 1.9 (1.5-2.5) mg/dL Total Bilirubin (0.2-1.0) mg/dL AST (15-37) U/L ALT (12-78) U/L Alkaline Phosphatase (45-117) U/L Total Creatine Kinase (39-308) U/L Troponin I (0.02-0.05) ng/mL C-Reactive Protein (0.00-0.30) mg/dL B-Natriuretic Peptide (0-100) pg/mL Total Protein (6.4-8.2) g/dL Total Protein (PEP) (6.4-8.2) gm/dL Albumin (3.4-5.0) g/dL Albumin (PEP) (3.50-5.00) gm/dL Albumin/Globulin Ratio (1.39-2.23) Prealbumin 15 L (20-40) mg/dL Mwsgj-8-Uzyknxdef (0.11-0.29) gm/dL Hzntm-5-Bczzjabod (0.22-1.00) gm/dL Beta Globulins (0.53-1.03) gm/dL Gamma Globulins (0.50-1.39) gm/dL PEP Pathologist Comment Vitamin B12 (193-986) pg/mL TSH (0.358-3.740) uIU/mL Free T4 (0.76-1.46) ng/dL Urine Color (Yellw/Straw) Urine Clarity (Clear) Urine pH (5.0-8.5) Ur Specific [place] (1.002-1.035) Urine Protein (Neg-Trace) mg/dL Urine Glucose (UA) (Negative) mg/dL Urine Ketones (Negative) mg/dL Urine Occult Blood (Negative) Urine Nitrate (Negative) Urine Bilirubin (Negative) Urine Urobilinogen (Less than 2) mg/dL Ur Leukocyte Esterase (Negative) Urine RBC (0-3) /hpf Urine WBC (0-5) /hpf Amorphous Sediment (None) /hpf Urine Bacteria (None) /hpf Hyaline Casts (0-3) /lpf Urine Mucus (Occasional) /lpf Micro UA Comment Ur Microscopic Review Urine Culture Comments Ur Random Creatinine (27-300) mg/dL Ur Random Sodium meq/L Synovial Color (Straw) Synovial Appearance (Clear) Synovial RBC (0-0) /mm3 Synovial Nuc Cells (0-200) /mm3 Synovial Neutrophils (0-25) % Synovial Histocytes % Synovial Crystals (None) Random Vancomycin 18.1 Comment IgG (690-1690) mg/dL IgA (107-591) mg/dL IgM (37-225) mg/dL Free [place] Light Chains (3.3-19.4) mg/L Free Lambda Light Chain (5.7-26.3) mg/L Free [place]/Lambda Ratio (0.26-1.65) ratio Blood Type Blood Type Recheck Antibody Screen MTS Gel Crossmatch 01/19/18 01/19/18 01/19/18 Range/Units 05:08 05:08 05:08 WBC 7.9 (4.0-11.0) th/mm3 RBC 3.29 L (4.50-5.90) mil/mm3 Hgb 8.8 L (13.0-17.0) gm/dL Hct 28.0 L (39.0-51.0) % MCV 85.0 (80.0-100.0) fL MCH 26.6 L (27.0-34.0) pg MCHC 31.3 L (32.0-36.0) % RDW 18.9 H (11.6-17.2) % Plt Count 170 (150-450) th/mm3 MPV 7.9 (7.0-11.0) fL Prelim Diff (Auto) Neut % (Auto) 95.0 H (16.0-70.0) % Lymph % (Auto) 3.2 L (9.0-44.0) % Woods % (Auto) 1.7 (0.0-8.0) % Eos % (Auto) 0.1 (0.0-4.0) % Baso % (Auto) 0.0 (0.0-2.0) % Neut # (Auto) 7.5 (1.8-7.7) th/mm3 Lymph # (Auto) 0.3 L (1.0-4.8) th/mm3 [place] # (Auto) 0.1 (0.0-0.9) th/mm3 Eos # (Auto) 0.0 (0.0-0.4) th/mm3 Baso # (Auto) 0.0 (0.0-0.2) th/mm3 WBC Differential . Seg Neuts % (Manual) (16-70) % Band Neuts % (Manual) (0-6) % Lymphocytes % (Manual) (9-44) % Myelocytes % (Man) (0-0) % Abs Neuts (Manual) (1.8-7.7) th/mm3 Nucleated RBCs/100 WBC (0-0) /100 WBC Differential Comment Auto diff final Platelet Estimate (Normal) Platelet Morphology (Normal) ESR (0-20) mm/hr PT (9.8-11.6) sec INR Ratio APTT (23.4-31.7) sec Puncture Site Patient Temperature O2 Saturation (90-100) % ABG pH (7.380-7.420) ABG pCO2 (38-42) mmHg ABG pO2 (61-120) mmHg ABG HCO3 (22-26) mmol/L ABG O2 Content (12.0-20.0) Vol % ABG Base Excess (-2-2) mmol/L ABG Methemoglobin (0-2) % Blane Test Hemoglobin (12.0-16.0) G/DL Carboxyhemoglobin (0-4) % O2 Delivery Device Liter Flow L/M Vent Setting Inspired O2 % Critical Value Sodium 143 (136-145) meq/L Potassium 4.3 (3.5-5.1) meq/L Chloride 108 H (98-107) meq/L Carbon Dioxide 28.5 (21.0-32.0) meq/L Anion Gap 7 (5-15) meq/L BUN 53 H (7-18) mg/dL Creatinine 2.15 H (0.60-1.30) mg/dL Estimated GFR 30 L (>89) mL/min POC Glucose (68-110) mg/dl Random Glucose 160 H (74-106) mg/dL Lactic Acid (0.4-2.0) mmol/L Calcium 7.4 L* (8.5-10.1) mg/dL Prot Corrected Calcium 8.4 L (8.5-10.1) mg/dL Phosphorus (2.5-4.9) mg/dL Magnesium (1.5-2.5) mg/dL Total Bilirubin (0.2-1.0) mg/dL AST (15-37) U/L ALT (12-78) U/L Alkaline Phosphatase (45-117) U/L Total Creatine Kinase (39-308) U/L Troponin I (0.02-0.05) ng/mL C-Reactive Protein (0.00-0.30) mg/dL B-Natriuretic Peptide (0-100) pg/mL Total Protein 5.3 L (6.4-8.2) g/dL Total Protein (PEP) (6.4-8.2) gm/dL Albumin (3.4-5.0) g/dL Albumin (PEP) (3.50-5.00) gm/dL Albumin/Globulin Ratio (1.39-2.23) Prealbumin 18 L (20-40) mg/dL Clghn-1-Rqijfngfs (0.11-0.29) gm/dL Rlvdn-5-Yercxznso (0.22-1.00) gm/dL Beta Globulins (0.53-1.03) gm/dL Gamma Globulins (0.50-1.39) gm/dL PEP Pathologist Comment Vitamin B12 (193-986) pg/mL TSH (0.358-3.740) uIU/mL Free T4 (0.76-1.46) ng/dL Urine Color (Yellw/Straw) Urine Clarity (Clear) Urine pH (5.0-8.5) Ur Specific [place] (1.002-1.035) Urine Protein (Neg-Trace) mg/dL Urine Glucose (UA) (Negative) mg/dL Urine Ketones (Negative) mg/dL Urine Occult Blood (Negative) Urine Nitrate (Negative) Urine Bilirubin (Negative) Urine Urobilinogen (Less than 2) mg/dL Ur Leukocyte Esterase (Negative) Urine RBC (0-3) /hpf Urine WBC (0-5) /hpf Amorphous Sediment (None) /hpf Urine Bacteria (None) /hpf Hyaline Casts (0-3) /lpf Urine Mucus (Occasional) /lpf Micro UA Comment Ur Microscopic Review Urine Culture Comments Ur Random Creatinine (27-300) mg/dL Ur Random Sodium meq/L Synovial Color (Straw) Synovial Appearance (Clear) Synovial RBC (0-0) /mm3 Synovial Nuc Cells (0-200) /mm3 Synovial Neutrophils (0-25) % Synovial Histocytes % Synovial Crystals (None) Random Vancomycin Comment IgG (690-1690) mg/dL IgA (107-591) mg/dL IgM (37-225) mg/dL Free [place] Light Chains (3.3-19.4) mg/L Free Lambda Light Chain (5.7-26.3) mg/L Free [place]/Lambda Ratio (0.26-1.65) ratio Blood Type Blood Type Recheck Antibody Screen MTS Gel Crossmatch 01/20/18 01/20/18 01/20/18 Range/Units 06:21 06:21 06:21 WBC 9.4 (4.0-11.0) th/mm3 RBC 3.22 L (4.50-5.90) mil/mm3 Hgb 8.4 L (13.0-17.0) gm/dL Hct 27.6 L (39.0-51.0) % MCV 85.8 (80.0-100.0) fL MCH 26.2 L (27.0-34.0) pg MCHC 30.5 L (32.0-36.0) % RDW 19.4 H (11.6-17.2) % Plt Count 177 (150-450) th/mm3 MPV 7.7 (7.0-11.0) fL Prelim Diff (Auto) Neut % (Auto) 95.5 H (16.0-70.0) % Lymph % (Auto) 3.2 L (9.0-44.0) % Woods % (Auto) 1.0 (0.0-8.0) % Eos % (Auto) 0.1 (0.0-4.0) % Baso % (Auto) 0.2 (0.0-2.0) % Neut # (Auto) 8.9 H (1.8-7.7) th/mm3 Lymph # (Auto) 0.3 L (1.0-4.8) th/mm3 [place] # (Auto) 0.1 (0.0-0.9) th/mm3 Eos # (Auto) 0.0 (0.0-0.4) th/mm3 Baso # (Auto) 0.0 (0.0-0.2) th/mm3 WBC Differential . Seg Neuts % (Manual) (16-70) % Band Neuts % (Manual) (0-6) % Lymphocytes % (Manual) (9-44) % Myelocytes % (Man) (0-0) % Abs Neuts (Manual) (1.8-7.7) th/mm3 Nucleated RBCs/100 WBC (0-0) /100 WBC Differential Comment Auto diff final Platelet Estimate (Normal) Platelet Morphology (Normal) ESR (0-20) mm/hr PT (9.8-11.6) sec INR Ratio APTT (23.4-31.7) sec Puncture Site Patient Temperature O2 Saturation (90-100) % ABG pH (7.380-7.420) ABG pCO2 (38-42) mmHg ABG pO2 (61-120) mmHg ABG HCO3 (22-26) mmol/L ABG O2 Content (12.0-20.0) Vol % ABG Base Excess (-2-2) mmol/L ABG Methemoglobin (0-2) % Blane Test Hemoglobin (12.0-16.0) G/DL Carboxyhemoglobin (0-4) % O2 Delivery Device Liter Flow L/M Vent Setting Inspired O2 % Critical Value Sodium 143 (136-145) meq/L Potassium 4.5 (3.5-5.1) meq/L Chloride 110 H (98-107) meq/L Carbon Dioxide 27.3 (21.0-32.0) meq/L Anion Gap 6 (5-15) meq/L BUN 52 H (7-18) mg/dL Creatinine 1.78 H (0.60-1.30) mg/dL Estimated GFR 37 L (>89) mL/min POC Glucose (68-110) mg/dl Random Glucose 136 H (74-106) mg/dL Lactic Acid (0.4-2.0) mmol/L Calcium 7.5 L (8.5-10.1) mg/dL Prot Corrected Calcium (8.5-10.1) mg/dL Phosphorus (2.5-4.9) mg/dL Magnesium (1.5-2.5) mg/dL Total Bilirubin (0.2-1.0) mg/dL AST (15-37) U/L ALT (12-78) U/L Alkaline Phosphatase (45-117) U/L Total Creatine Kinase (39-308) U/L Troponin I (0.02-0.05) ng/mL C-Reactive Protein (0.00-0.30) mg/dL B-Natriuretic Peptide 2451 H (0-100) pg/mL Total Protein (6.4-8.2) g/dL Total Protein (PEP) (6.4-8.2) gm/dL Albumin (3.4-5.0) g/dL Albumin (PEP) (3.50-5.00) gm/dL Albumin/Globulin Ratio (1.39-2.23) Prealbumin (20-40) mg/dL Dqhkd-3-Buqofbbxp (0.11-0.29) gm/dL Uatfk-3-Nkopkdeap (0.22-1.00) gm/dL Beta Globulins (0.53-1.03) gm/dL Gamma Globulins (0.50-1.39) gm/dL PEP Pathologist Comment Vitamin B12 (193-986) pg/mL TSH (0.358-3.740) uIU/mL Free T4 (0.76-1.46) ng/dL Urine Color (Yellw/Straw) Urine Clarity (Clear) Urine pH (5.0-8.5) Ur Specific [place] (1.002-1.035) Urine Protein (Neg-Trace) mg/dL Urine Glucose (UA) (Negative) mg/dL Urine Ketones (Negative) mg/dL Urine Occult Blood (Negative) Urine Nitrate (Negative) Urine Bilirubin (Negative) Urine Urobilinogen (Less than 2) mg/dL Ur Leukocyte Esterase (Negative) Urine RBC (0-3) /hpf Urine WBC (0-5) /hpf Amorphous Sediment (None) /hpf Urine Bacteria (None) /hpf Hyaline Casts (0-3) /lpf Urine Mucus (Occasional) /lpf Micro UA Comment Ur Microscopic Review Urine Culture Comments Ur Random Creatinine (27-300) mg/dL Ur Random Sodium meq/L Synovial Color (Straw) Synovial Appearance (Clear) Synovial RBC (0-0) /mm3 Synovial Nuc Cells (0-200) /mm3 Synovial Neutrophils (0-25) % Synovial Histocytes % Synovial Crystals (None) Random Vancomycin 31.6 Comment IgG (690-1690) mg/dL IgA (107-591) mg/dL IgM (37-225) mg/dL Free [place] Light Chains (3.3-19.4) mg/L Free Lambda Light Chain (5.7-26.3) mg/L Free [place]/Lambda Ratio (0.26-1.65) ratio Blood Type Blood Type Recheck Antibody Screen MTS Gel Crossmatch 01/20/18 01/20/18 01/21/18 Range/Units 11:34 11:51 04:59 WBC (4.0-11.0) th/mm3 RBC (4.50-5.90) mil/mm3 Hgb (13.0-17.0) gm/dL Hct (39.0-51.0) % MCV (80.0-100.0) fL MCH (27.0-34.0) pg MCHC (32.0-36.0) % RDW (11.6-17.2) % Plt Count (150-450) th/mm3 MPV (7.0-11.0) fL Prelim Diff (Auto) Neut % (Auto) (16.0-70.0) % Lymph % (Auto) (9.0-44.0) % Woods % (Auto) (0.0-8.0) % Eos % (Auto) (0.0-4.0) % Baso % (Auto) (0.0-2.0) % Neut # (Auto) (1.8-7.7) th/mm3 Lymph # (Auto) (1.0-4.8) th/mm3 Woods # (Auto) (0.0-0.9) th/mm3 Eos # (Auto) (0.0-0.4) th/mm3 Baso # (Auto) (0.0-0.2) th/mm3 WBC Differential Seg Neuts % (Manual) (16-70) % Band Neuts % (Manual) (0-6) % Lymphocytes % (Manual) (9-44) % Myelocytes % (Man) (0-0) % Abs Neuts (Manual) (1.8-7.7) th/mm3 Nucleated RBCs/100 WBC (0-0) /100 WBC Differential Comment Platelet Estimate (Normal) Platelet Morphology (Normal) ESR (0-20) mm/hr PT (9.8-11.6) sec INR Ratio APTT (23.4-31.7) sec Puncture Site Right radial Patient Temperature 98.6 O2 Saturation 95 (90-100) % ABG pH 7.18 L* (7.380-7.420) ABG pCO2 74 H* (38-42) mmHg ABG pO2 122 H (61-120) mmHg ABG HCO3 26 (22-26) mmol/L ABG O2 Content 11.6 L (12.0-20.0) Vol % ABG Base Excess -1.2 (-2-2) mmol/L ABG Methemoglobin 1.2 (0-2) % Blane Test Present Hemoglobin 8.5 L (12.0-16.0) G/DL Carboxyhemoglobin 0.0 (0-4) % O2 Delivery Device Nrb Liter Flow 15.00 L/M Vent Setting Inspired O2 % Critical Value Yes Sodium 142 (136-145) meq/L Potassium 3.4 L D (3.5-5.1) meq/L Chloride 104 (98-107) meq/L Carbon Dioxide 31.4 (21.0-32.0) meq/L Anion Gap 7 (5-15) meq/L BUN 58 H (7-18) mg/dL Creatinine 1.84 H (0.60-1.30) mg/dL Estimated GFR 36 L (>89) mL/min POC Glucose 198 H (68-110) mg/dl Random Glucose 108 H (74-106) mg/dL Lactic Acid (0.4-2.0) mmol/L Calcium 8.3 L D (8.5-10.1) mg/dL Prot Corrected Calcium (8.5-10.1) mg/dL Phosphorus 2.4 L (2.5-4.9) mg/dL Magnesium 1.7 (1.5-2.5) mg/dL Total Bilirubin (0.2-1.0) mg/dL AST (15-37) U/L ALT (12-78) U/L Alkaline Phosphatase (45-117) U/L Total Creatine Kinase (39-308) U/L Troponin I (0.02-0.05) ng/mL C-Reactive Protein (0.00-0.30) mg/dL B-Natriuretic Peptide (0-100) pg/mL Total Protein (6.4-8.2) g/dL Total Protein (PEP) (6.4-8.2) gm/dL Albumin (3.4-5.0) g/dL Albumin (PEP) (3.50-5.00) gm/dL Albumin/Globulin Ratio (1.39-2.23) Prealbumin (20-40) mg/dL Xkxwe-1-Rpcigajwo (0.11-0.29) gm/dL Ieoqh-1-Rzqeenhcr (0.22-1.00) gm/dL Beta Globulins (0.53-1.03) gm/dL Gamma Globulins (0.50-1.39) gm/dL PEP Pathologist Comment Vitamin B12 (193-986) pg/mL TSH (0.358-3.740) uIU/mL Free T4 (0.76-1.46) ng/dL Urine Color (Yellw/Straw) Urine Clarity (Clear) Urine pH (5.0-8.5) Ur Specific [place] (1.002-1.035) Urine Protein (Neg-Trace) mg/dL Urine Glucose (UA) (Negative) mg/dL Urine Ketones (Negative) mg/dL Urine Occult Blood (Negative) Urine Nitrate (Negative) Urine Bilirubin (Negative) Urine Urobilinogen (Less than 2) mg/dL Ur Leukocyte Esterase (Negative) Urine RBC (0-3) /hpf Urine WBC (0-5) /hpf Amorphous Sediment (None) /hpf Urine Bacteria (None) /hpf Hyaline Casts (0-3) /lpf Urine Mucus (Occasional) /lpf Micro UA Comment Ur Microscopic Review Urine Culture Comments Ur Random Creatinine (27-300) mg/dL Ur Random Sodium meq/L Synovial Color (Straw) Synovial Appearance (Clear) Synovial RBC (0-0) /mm3 Synovial Nuc Cells (0-200) /mm3 Synovial Neutrophils (0-25) % Synovial Histocytes % Synovial Crystals (None) Random Vancomycin 33.1 Comment IgG (690-1690) mg/dL IgA (107-591) mg/dL IgM (37-225) mg/dL Free [place] Light Chains (3.3-19.4) mg/L Free Lambda Light Chain (5.7-26.3) mg/L Free [place]/Lambda Ratio (0.26-1.65) ratio Blood Type Blood Type Recheck Antibody Screen MTS Gel Crossmatch 1101/21/18 01/21/18 Range/Units 04:59 04:59 08:12 WBC 10.7 (4.0-11.0) th/mm3 RBC 3.31 L (4.50-5.90) mil/mm3 Hgb 8.6 L (13.0-17.0) gm/dL Hct 27.4 L (39.0-51.0) % MCV 82.8 (80.0-100.0) fL MCH 26.1 L (27.0-34.0) pg MCHC 31.5 L (32.0-36.0) % RDW 19.0 H (11.6-17.2) % Plt Count 192 (150-450) th/mm3 MPV 8.1 (7.0-11.0) fL Prelim Diff (Auto) Neut % (Auto) 95.6 H (16.0-70.0) % Lymph % (Auto) 3.2 L (9.0-44.0) % Woods % (Auto) 1.0 (0.0-8.0) % Eos % (Auto) 0.1 (0.0-4.0) % Baso % (Auto) 0.1 (0.0-2.0) % Neut # (Auto) 10.3 H (1.8-7.7) th/mm3 Lymph # (Auto) 0.3 L (1.0-4.8) th/mm3 [place] # (Auto) 0.1 (0.0-0.9) th/mm3 Eos # (Auto) 0.0 (0.0-0.4) th/mm3 Baso # (Auto) 0.0 (0.0-0.2) th/mm3 WBC Differential . Seg Neuts % (Manual) (16-70) % Band Neuts % (Manual) (0-6) % Lymphocytes % (Manual) (9-44) % Myelocytes % (Man) (0-0) % Abs Neuts (Manual) (1.8-7.7) th/mm3 Nucleated RBCs/100 WBC (0-0) /100 WBC Differential Comment Auto diff final Platelet Estimate (Normal) Platelet Morphology (Normal) ESR (0-20) mm/hr PT (9.8-11.6) sec INR Ratio APTT (23.4-31.7) sec Puncture Site Patient Temperature O2 Saturation (90-100) % ABG pH (7.380-7.420) ABG pCO2 (38-42) mmHg ABG pO2 (61-120) mmHg ABG HCO3 (22-26) mmol/L ABG O2 Content (12.0-20.0) Vol % ABG Base Excess (-2-2) mmol/L ABG Methemoglobin (0-2) % Blane Test Hemoglobin (12.0-16.0) G/DL Carboxyhemoglobin (0-4) % O2 Delivery Device Liter Flow L/M Vent Setting Inspired O2 % Critical Value Sodium (136-145) meq/L Potassium (3.5-5.1) meq/L Chloride (98-107) meq/L Carbon Dioxide (21.0-32.0) meq/L Anion Gap (5-15) meq/L BUN (7-18) mg/dL Creatinine (0.60-1.30) mg/dL Estimated GFR (>89) mL/min POC Glucose (68-110) mg/dl Random Glucose (74-106) mg/dL Lactic Acid (0.4-2.0) mmol/L Calcium (8.5-10.1) mg/dL Prot Corrected Calcium (8.5-10.1) mg/dL Phosphorus (2.5-4.9) mg/dL Magnesium (1.5-2.5) mg/dL Total Bilirubin (0.2-1.0) mg/dL AST (15-37) U/L ALT (12-78) U/L Alkaline Phosphatase (45-117) U/L Total Creatine Kinase (39-308) U/L Troponin I 0.02 (0.02-0.05) ng/mL C-Reactive Protein (0.00-0.30) mg/dL B-Natriuretic Peptide 2030 H (0-100) pg/mL Total Protein (6.4-8.2) g/dL Total Protein (PEP) (6.4-8.2) gm/dL Albumin (3.4-5.0) g/dL Albumin (PEP) (3.50-5.00) gm/dL Albumin/Globulin Ratio (1.39-2.23) Prealbumin (20-40) mg/dL Ljeqv-5-Uhigulbhk (0.11-0.29) gm/dL Jvghz-8-Xvcrvrfwu (0.22-1.00) gm/dL Beta Globulins (0.53-1.03) gm/dL Gamma Globulins (0.50-1.39) gm/dL PEP Pathologist Comment Vitamin B12 (193-986) pg/mL TSH (0.358-3.740) uIU/mL Free T4 (0.76-1.46) ng/dL Urine Color (Yellw/Straw) Urine Clarity (Clear) Urine pH (5.0-8.5) Ur Specific [place] (1.002-1.035) Urine Protein (Neg-Trace) mg/dL Urine Glucose (UA) (Negative) mg/dL Urine Ketones (Negative) mg/dL Urine Occult Blood (Negative) Urine Nitrate (Negative) Urine Bilirubin (Negative) Urine Urobilinogen (Less than 2) mg/dL Ur Leukocyte Esterase (Negative) Urine RBC (0-3) /hpf Urine WBC (0-5) /hpf Amorphous Sediment (None) /hpf Urine Bacteria (None) /hpf Hyaline Casts (0-3) /lpf Urine Mucus (Occasional) /lpf Micro UA Comment Ur Microscopic Review Urine Culture Comments Ur Random Creatinine (27-300) mg/dL Ur Random Sodium meq/L Synovial Color (Straw) Synovial Appearance (Clear) Synovial RBC (0-0) /mm3 Synovial Nuc Cells (0-200) /mm3 Synovial Neutrophils (0-25) % Synovial Histocytes % Synovial Crystals (None) Random Vancomycin Comment IgG (690-1690) mg/dL IgA (107-591) mg/dL IgM (37-225) mg/dL Free [place] Light Chains (3.3-19.4) mg/L Free Lambda Light Chain (5.7-26.3) mg/L Free [place]/Lambda Ratio (0.26-1.65) ratio Blood Type Blood Type Recheck Antibody Screen MTS Gel Crossmatch 01/21/18 01/21/18 01/22/18 Range/Units 20:17 20:17 04:44 WBC (4.0-11.0) th/mm3 RBC (4.50-5.90) mil/mm3 Hgb (13.0-17.0) gm/dL Hct (39.0-51.0) % MCV (80.0-100.0) fL MCH (27.0-34.0) pg MCHC (32.0-36.0) % RDW (11.6-17.2) % Plt Count (150-450) th/mm3 MPV (7.0-11.0) fL Prelim Diff (Auto) Neut % (Auto) (16.0-70.0) % Lymph % (Auto) (9.0-44.0) % Woods % (Auto) (0.0-8.0) % Eos % (Auto) (0.0-4.0) % Baso % (Auto) (0.0-2.0) % Neut # (Auto) (1.8-7.7) th/mm3 Lymph # (Auto) (1.0-4.8) th/mm3 [place] # (Auto) (0.0-0.9) th/mm3 Eos # (Auto) (0.0-0.4) th/mm3 Baso # (Auto) (0.0-0.2) th/mm3 WBC Differential Seg Neuts % (Manual) (16-70) % Band Neuts % (Manual) (0-6) % Lymphocytes % (Manual) (9-44) % Myelocytes % (Man) (0-0) % Abs Neuts (Manual) (1.8-7.7) th/mm3 Nucleated RBCs/100 WBC (0-0) /100 WBC Differential Comment Platelet Estimate (Normal) Platelet Morphology (Normal) ESR (0-20) mm/hr PT (9.8-11.6) sec INR Ratio APTT (23.4-31.7) sec Puncture Site Right brachial Cancelled Right brachial Patient Temperature 98.6 Cancelled 98.6 O2 Saturation 87 L* Cancelled 92 (90-100) % ABG pH 7.48 H Cancelled 7.48 H (7.380-7.420) ABG pCO2 49 H Cancelled 52 H* (38-42) mmHg ABG pO2 56 L* Cancelled 73 (61-120) mmHg ABG HCO3 36 H Cancelled 38 H (22-26) mmol/L ABG O2 Content 9.3 L Cancelled 10.2 L (12.0-20.0) Vol % ABG Base Excess 11.4 H Cancelled 13.2 H (-2-2) mmol/L ABG Methemoglobin 1.0 Cancelled 0.9 (0-2) % Blane Test Cancelled Hemoglobin 7.6 L* Cancelled 7.8 L* (12.0-16.0) G/DL Carboxyhemoglobin 0.0 Cancelled 0.0 (0-4) % O2 Delivery Device Nasal cannula Cancelled Bipap Liter Flow 6.00 Cancelled L/M Vent Setting Cancelled Ipap 15/epap 5 Inspired O2 44 Cancelled 60 % Critical Value Yes Cancelled Yes Sodium (136-145) meq/L Potassium (3.5-5.1) meq/L Chloride (98-107) meq/L Carbon Dioxide (21.0-32.0) meq/L Anion Gap (5-15) meq/L BUN (7-18) mg/dL Creatinine (0.60-1.30) mg/dL Estimated GFR (>89) mL/min POC Glucose (68-110) mg/dl Random Glucose (74-106) mg/dL Lactic Acid (0.4-2.0) mmol/L Calcium (8.5-10.1) mg/dL Prot Corrected Calcium (8.5-10.1) mg/dL Phosphorus (2.5-4.9) mg/dL Magnesium (1.5-2.5) mg/dL Total Bilirubin (0.2-1.0) mg/dL AST (15-37) U/L ALT (12-78) U/L Alkaline Phosphatase (45-117) U/L Total Creatine Kinase (39-308) U/L Troponin I (0.02-0.05) ng/mL C-Reactive Protein (0.00-0.30) mg/dL B-Natriuretic Peptide (0-100) pg/mL Total Protein (6.4-8.2) g/dL Total Protein (PEP) (6.4-8.2) gm/dL Albumin (3.4-5.0) g/dL Albumin (PEP) (3.50-5.00) gm/dL Albumin/Globulin Ratio (1.39-2.23) Prealbumin (20-40) mg/dL Nsnnk-8-Bpkfotrnr (0.11-0.29) gm/dL Haewj-4-Ryqillkxo (0.22-1.00) gm/dL Beta Globulins (0.53-1.03) gm/dL Gamma Globulins (0.50-1.39) gm/dL PEP Pathologist Comment Vitamin B12 (193-986) pg/mL TSH (0.358-3.740) uIU/mL Free T4 (0.76-1.46) ng/dL Urine Color (Yellw/Straw) Urine Clarity (Clear) Urine pH (5.0-8.5) Ur Specific [place] (1.002-1.035) Urine Protein (Neg-Trace) mg/dL Urine Glucose (UA) (Negative) mg/dL Urine Ketones (Negative) mg/dL Urine Occult Blood (Negative) Urine Nitrate (Negative) Urine Bilirubin (Negative) Urine Urobilinogen (Less than 2) mg/dL Ur Leukocyte Esterase (Negative) Urine RBC (0-3) /hpf Urine WBC (0-5) /hpf Amorphous Sediment (None) /hpf Urine Bacteria (None) /hpf Hyaline Casts (0-3) /lpf Urine Mucus (Occasional) /lpf Micro UA Comment Ur Microscopic Review Urine Culture Comments Ur Random Creatinine (27-300) mg/dL Ur Random Sodium meq/L Synovial Color (Straw) Synovial Appearance (Clear) Synovial RBC (0-0) /mm3 Synovial Nuc Cells (0-200) /mm3 Synovial Neutrophils (0-25) % Synovial Histocytes % Synovial Crystals (None) Random Vancomycin Comment IgG (690-1690) mg/dL IgA (107-591) mg/dL IgM (37-225) mg/dL Free [place] Light Chains (3.3-19.4) mg/L Free Lambda Light Chain (5.7-26.3) mg/L Free [place]/Lambda Ratio (0.26-1.65) ratio Blood Type Blood Type Recheck Antibody Screen MTS Gel Crossmatch 01/22/18 01/22/18 01/22/18 Range/Units 05:00 05:00 05:00 WBC 9.0 (4.0-11.0) th/mm3 RBC 2.96 L (4.50-5.90) mil/mm3 Hgb 7.9 L (13.0-17.0) gm/dL Hct 23.7 L (39.0-51.0) % MCV 79.8 L (80.0-100.0) fL MCH 26.5 L (27.0-34.0) pg MCHC 33.2 (32.0-36.0) % RDW 19.2 H (11.6-17.2) % Plt Count 168 (150-450) th/mm3 MPV 8.2 (7.0-11.0) fL Prelim Diff (Auto) Neut % (Auto) 94.2 H (16.0-70.0) % Lymph % (Auto) 4.4 L (9.0-44.0) % Woods % (Auto) 1.1 (0.0-8.0) % Eos % (Auto) 0.2 (0.0-4.0) % Baso % (Auto) 0.1 (0.0-2.0) % Neut # (Auto) 8.4 H (1.8-7.7) th/mm3 Lymph # (Auto) 0.4 L (1.0-4.8) th/mm3 [place] # (Auto) 0.1 (0.0-0.9) th/mm3 Eos # (Auto) 0.0 (0.0-0.4) th/mm3 Baso # (Auto) 0.0 (0.0-0.2) th/mm3 WBC Differential . Seg Neuts % (Manual) (16-70) % Band Neuts % (Manual) (0-6) % Lymphocytes % (Manual) (9-44) % Myelocytes % (Man) (0-0) % Abs Neuts (Manual) (1.8-7.7) th/mm3 Nucleated RBCs/100 WBC (0-0) /100 WBC Differential Comment Auto diff final Platelet Estimate (Normal) Platelet Morphology (Normal) ESR (0-20) mm/hr PT (9.8-11.6) sec INR Ratio APTT (23.4-31.7) sec Puncture Site Patient Temperature O2 Saturation (90-100) % ABG pH (7.380-7.420) ABG pCO2 (38-42) mmHg ABG pO2 (61-120) mmHg ABG HCO3 (22-26) mmol/L ABG O2 Content (12.0-20.0) Vol % ABG Base Excess (-2-2) mmol/L ABG Methemoglobin (0-2) % Blane Test Hemoglobin (12.0-16.0) G/DL Carboxyhemoglobin (0-4) % O2 Delivery Device Liter Flow L/M Vent Setting Inspired O2 % Critical Value Sodium 144 (136-145) meq/L Potassium 3.1 L (3.5-5.1) meq/L Chloride 102 (98-107) meq/L Carbon Dioxide 37.0 H (21.0-32.0) meq/L Anion Gap 6 (5-15) meq/L BUN 58 H (7-18) mg/dL Creatinine 1.71 H (0.60-1.30) mg/dL Estimated GFR 39 L (>89) mL/min POC Glucose (68-110) mg/dl Random Glucose 106 (74-106) mg/dL Lactic Acid 0.8 (0.4-2.0) mmol/L Calcium 8.2 L (8.5-10.1) mg/dL Prot Corrected Calcium (8.5-10.1) mg/dL Phosphorus (2.5-4.9) mg/dL Magnesium (1.5-2.5) mg/dL Total Bilirubin 0.8 (0.2-1.0) mg/dL AST 5 L (15-37) U/L ALT 15 (12-78) U/L Alkaline Phosphatase 75 (45-117) U/L Total Creatine Kinase (39-308) U/L Troponin I (0.02-0.05) ng/mL C-Reactive Protein (0.00-0.30) mg/dL B-Natriuretic Peptide (0-100) pg/mL Total Protein 5.7 L (6.4-8.2) g/dL Total Protein (PEP) (6.4-8.2) gm/dL Albumin 2.8 L (3.4-5.0) g/dL Albumin (PEP) (3.50-5.00) gm/dL Albumin/Globulin Ratio (1.39-2.23) Prealbumin (20-40) mg/dL Bbizr-9-Orclzfesr (0.11-0.29) gm/dL Vrmga-6-Ujevmbuhr (0.22-1.00) gm/dL Beta Globulins (0.53-1.03) gm/dL Gamma Globulins (0.50-1.39) gm/dL PEP Pathologist Comment Vitamin B12 (193-986) pg/mL TSH (0.358-3.740) uIU/mL Free T4 (0.76-1.46) ng/dL Urine Color (Yellw/Straw) Urine Clarity (Clear) Urine pH (5.0-8.5) Ur Specific [place] (1.002-1.035) Urine Protein (Neg-Trace) mg/dL Urine Glucose (UA) (Negative) mg/dL Urine Ketones (Negative) mg/dL Urine Occult Blood (Negative) Urine Nitrate (Negative) Urine Bilirubin (Negative) Urine Urobilinogen (Less than 2) mg/dL Ur Leukocyte Esterase (Negative) Urine RBC (0-3) /hpf Urine WBC (0-5) /hpf Amorphous Sediment (None) /hpf Urine Bacteria (None) /hpf Hyaline Casts (0-3) /lpf Urine Mucus (Occasional) /lpf Micro UA Comment Ur Microscopic Review Urine Culture Comments Ur Random Creatinine (27-300) mg/dL Ur Random Sodium meq/L Synovial Color (Straw) Synovial Appearance (Clear) Synovial RBC (0-0) /mm3 Synovial Nuc Cells (0-200) /mm3 Synovial Neutrophils (0-25) % Synovial Histocytes % Synovial Crystals (None) Random Vancomycin 27.3 Comment IgG (690-1690) mg/dL IgA (107-591) mg/dL IgM (37-225) mg/dL Free [place] Light Chains (3.3-19.4) mg/L Free Lambda Light Chain (5.7-26.3) mg/L Free [place]/Lambda Ratio (0.26-1.65) ratio Blood Type Blood Type Recheck Antibody Screen MTS Gel Crossmatch 01/22/18 01/23/18 01/23/18 Range/Units 12:25 05:00 05:00 WBC 6.7 (4.0-11.0) th/mm3 RBC 2.86 L (4.50-5.90) mil/mm3 Hgb 7.4 L (13.0-17.0) gm/dL Hct 22.8 L (39.0-51.0) % MCV 79.6 L (80.0-100.0) fL MCH 25.9 L (27.0-34.0) pg MCHC 32.5 (32.0-36.0) % RDW 19.6 H (11.6-17.2) % Plt Count 167 (150-450) th/mm3 MPV 7.6 (7.0-11.0) fL Prelim Diff (Auto) Slide review pending Neut % (Auto) 91.1 H (16.0-70.0) % Lymph % (Auto) 6.2 L (9.0-44.0) % Woods % (Auto) 2.2 (0.0-8.0) % Eos % (Auto) 0.2 (0.0-4.0) % Baso % (Auto) 0.3 (0.0-2.0) % Neut # (Auto) 6.1 (1.8-7.7) th/mm3 Lymph # (Auto) 0.4 L (1.0-4.8) th/mm3 [place] # (Auto) 0.2 (0.0-0.9) th/mm3 Eos # (Auto) 0.0 (0.0-0.4) th/mm3 Baso # (Auto) 0.0 (0.0-0.2) th/mm3 WBC Differential Manual diff final Seg Neuts % (Manual) 78 H (16-70) % Band Neuts % (Manual) 19 H (0-6) % Lymphocytes % (Manual) 2 L (9-44) % Myelocytes % (Man) 1 H (0-0) % Abs Neuts (Manual) 6.6 (1.8-7.7) th/mm3 Nucleated RBCs/100 WBC 1 H (0-0) /100 WBC Differential Comment . Platelet Estimate Normal (Normal) Platelet Morphology Normal (Normal) ESR (0-20) mm/hr PT (9.8-11.6) sec INR Ratio APTT (23.4-31.7) sec Puncture Site Right radial Patient Temperature 98.6 O2 Saturation 88 L* (90-100) % ABG pH 7.56 H* (7.380-7.420) ABG pCO2 40 (38-42) mmHg ABG pO2 54 L* (61-120) mmHg ABG HCO3 36 H (22-26) mmol/L ABG O2 Content 9.6 L (12.0-20.0) Vol % ABG Base Excess 12.0 H (-2-2) mmol/L ABG Methemoglobin 0.8 (0-2) % Blane Test Present Hemoglobin 7.8 L* (12.0-16.0) G/DL Carboxyhemoglobin 0.0 (0-4) % O2 Delivery Device Ventilator Liter Flow L/M Vent Setting Prvc16/500/1.1/+10 Inspired O2 80 % Critical Value Yes Sodium 146 H (136-145) meq/L Potassium 2.9 L* (3.5-5.1) meq/L Chloride 102 (98-107) meq/L Carbon Dioxide 36.0 H (21.0-32.0) meq/L Anion Gap 8 (5-15) meq/L BUN 58 H (7-18) mg/dL Creatinine 1.84 H (0.60-1.30) mg/dL Estimated GFR 36 L (>89) mL/min POC Glucose (68-110) mg/dl Random Glucose 125 H (74-106) mg/dL Lactic Acid (0.4-2.0) mmol/L Calcium 8.5 (8.5-10.1) mg/dL Prot Corrected Calcium (8.5-10.1) mg/dL Phosphorus (2.5-4.9) mg/dL Magnesium (1.5-2.5) mg/dL Total Bilirubin (0.2-1.0) mg/dL AST (15-37) U/L ALT (12-78) U/L Alkaline Phosphatase (45-117) U/L Total Creatine Kinase (39-308) U/L Troponin I (0.02-0.05) ng/mL C-Reactive Protein (0.00-0.30) mg/dL B-Natriuretic Peptide (0-100) pg/mL Total Protein (6.4-8.2) g/dL Total Protein (PEP) (6.4-8.2) gm/dL Albumin (3.4-5.0) g/dL Albumin (PEP) (3.50-5.00) gm/dL Albumin/Globulin Ratio (1.39-2.23) Prealbumin (20-40) mg/dL Sckuy-6-Ottzyjouo (0.11-0.29) gm/dL Hjjnu-1-Ubrphgzva (0.22-1.00) gm/dL Beta Globulins (0.53-1.03) gm/dL Gamma Globulins (0.50-1.39) gm/dL PEP Pathologist Comment Vitamin B12 (193-986) pg/mL TSH (0.358-3.740) uIU/mL Free T4 (0.76-1.46) ng/dL Urine Color (Yellw/Straw) Urine Clarity (Clear) Urine pH (5.0-8.5) Ur Specific [place] (1.002-1.035) Urine Protein (Neg-Trace) mg/dL Urine Glucose (UA) (Negative) mg/dL Urine Ketones (Negative) mg/dL Urine Occult Blood (Negative) Urine Nitrate (Negative) Urine Bilirubin (Negative) Urine Urobilinogen (Less than 2) mg/dL Ur Leukocyte Esterase (Negative) Urine RBC (0-3) /hpf Urine WBC (0-5) /hpf Amorphous Sediment (None) /hpf Urine Bacteria (None) /hpf Hyaline Casts (0-3) /lpf Urine Mucus (Occasional) /lpf Micro UA Comment Ur Microscopic Review Urine Culture Comments Ur Random Creatinine (27-300) mg/dL Ur Random Sodium meq/L Synovial Color (Straw) Synovial Appearance (Clear) Synovial RBC (0-0) /mm3 Synovial Nuc Cells (0-200) /mm3 Synovial Neutrophils (0-25) % Synovial Histocytes % Synovial Crystals (None) Random Vancomycin 22.8 Comment IgG (690-1690) mg/dL IgA (107-591) mg/dL IgM (37-225) mg/dL Free [place] Light Chains (3.3-19.4) mg/L Free Lambda Light Chain (5.7-26.3) mg/L Free [place]/Lambda Ratio (0.26-1.65) ratio Blood Type Blood Type Recheck Antibody Screen MTS Gel Crossmatch 01/23/18 01/23/18 01/23/18 Range/Units 05:59 07:05 13:40 WBC (4.0-11.0) th/mm3 RBC (4.50-5.90) mil/mm3 Hgb (13.0-17.0) gm/dL Hct (39.0-51.0) % MCV (80.0-100.0) fL MCH (27.0-34.0) pg MCHC (32.0-36.0) % RDW (11.6-17.2) % Plt Count (150-450) th/mm3 MPV (7.0-11.0) fL Prelim Diff (Auto) Neut % (Auto) (16.0-70.0) % Lymph % (Auto) (9.0-44.0) % Woods % (Auto) (0.0-8.0) % Eos % (Auto) (0.0-4.0) % Baso % (Auto) (0.0-2.0) % Neut # (Auto) (1.8-7.7) th/mm3 Lymph # (Auto) (1.0-4.8) th/mm3 [place] # (Auto) (0.0-0.9) th/mm3 Eos # (Auto) (0.0-0.4) th/mm3 Baso # (Auto) (0.0-0.2) th/mm3 WBC Differential Seg Neuts % (Manual) (16-70) % Band Neuts % (Manual) (0-6) % Lymphocytes % (Manual) (9-44) % Myelocytes % (Man) (0-0) % Abs Neuts (Manual) (1.8-7.7) th/mm3 Nucleated RBCs/100 WBC (0-0) /100 WBC Differential Comment Platelet Estimate (Normal) Platelet Morphology (Normal) ESR (0-20) mm/hr PT (9.8-11.6) sec INR Ratio APTT (23.4-31.7) sec Puncture Site Right brachial Patient Temperature 98.6 O2 Saturation 97 (90-100) % ABG pH 7.59 H* (7.380-7.420) ABG pCO2 36 L (38-42) mmHg ABG pO2 388 H (61-120) mmHg ABG HCO3 35 H (22-26) mmol/L ABG O2 Content 11.3 L (12.0-20.0) Vol % ABG Base Excess 12.0 H (-2-2) mmol/L ABG Methemoglobin 1.0 (0-2) % Blane Test Hemoglobin 7.6 L* (12.0-16.0) G/DL Carboxyhemoglobin 0.0 (0-4) % O2 Delivery Device Ventilator Liter Flow L/M Vent Setting See comment Inspired O2 100 % Critical Value Yes Sodium (136-145) meq/L Potassium 3.9 D (3.5-5.1) meq/L Chloride (98-107) meq/L Carbon Dioxide (21.0-32.0) meq/L Anion Gap (5-15) meq/L BUN (7-18) mg/dL Creatinine (0.60-1.30) mg/dL Estimated GFR (>89) mL/min POC Glucose (68-110) mg/dl Random Glucose (74-106) mg/dL Lactic Acid (0.4-2.0) mmol/L Calcium (8.5-10.1) mg/dL Prot Corrected Calcium (8.5-10.1) mg/dL Phosphorus (2.5-4.9) mg/dL Magnesium (1.5-2.5) mg/dL Total Bilirubin (0.2-1.0) mg/dL AST (15-37) U/L ALT (12-78) U/L Alkaline Phosphatase (45-117) U/L Total Creatine Kinase (39-308) U/L Troponin I (0.02-0.05) ng/mL C-Reactive Protein (0.00-0.30) mg/dL B-Natriuretic Peptide (0-100) pg/mL Total Protein (6.4-8.2) g/dL Total Protein (PEP) (6.4-8.2) gm/dL Albumin (3.4-5.0) g/dL Albumin (PEP) (3.50-5.00) gm/dL Albumin/Globulin Ratio (1.39-2.23) Prealbumin (20-40) mg/dL Jhmxm-5-Zzybzjmxe (0.11-0.29) gm/dL Zqxvi-2-Pnukxkstp (0.22-1.00) gm/dL Beta Globulins (0.53-1.03) gm/dL Gamma Globulins (0.50-1.39) gm/dL PEP Pathologist Comment Vitamin B12 (193-986) pg/mL TSH (0.358-3.740) uIU/mL Free T4 (0.76-1.46) ng/dL Urine Color (Yellw/Straw) Urine Clarity (Clear) Urine pH (5.0-8.5) Ur Specific [place] (1.002-1.035) Urine Protein (Neg-Trace) mg/dL Urine Glucose (UA) (Negative) mg/dL Urine Ketones (Negative) mg/dL Urine Occult Blood (Negative) Urine Nitrate (Negative) Urine Bilirubin (Negative) Urine Urobilinogen (Less than 2) mg/dL Ur Leukocyte Esterase (Negative) Urine RBC (0-3) /hpf Urine WBC (0-5) /hpf Amorphous Sediment (None) /hpf Urine Bacteria (None) /hpf Hyaline Casts (0-3) /lpf Urine Mucus (Occasional) /lpf Micro UA Comment Ur Microscopic Review Urine Culture Comments Ur Random Creatinine (27-300) mg/dL Ur Random Sodium meq/L Synovial Color (Straw) Synovial Appearance (Clear) Synovial RBC (0-0) /mm3 Synovial Nuc Cells (0-200) /mm3 Synovial Neutrophils (0-25) % Synovial Histocytes % Synovial Crystals (None) Random Vancomycin Comment IgG (690-1690) mg/dL IgA (107-591) mg/dL IgM (37-225) mg/dL Free [place] Light Chains (3.3-19.4) mg/L Free Lambda Light Chain (5.7-26.3) mg/L Free [place]/Lambda Ratio (0.26-1.65) ratio Blood Type O Positive Blood Type Recheck Required Antibody Screen Negative MTS Gel Crossmatch See Detail Imaging Data Radiologist's impression: Abdomen/Pelvis CT 01/13/18 20:43 CONCLUSION: 1. Marked prostate enlargement. 2. Air-filled distention of sigmoid colon. 3. Cardiomegaly. Small bilateral pleural effusions. 4. Diffuse atherosclerotic disease and arterial calcification. 5. Old insufficiency type fractures of the left side of the sacrum and left- sided pubic rami. Chest X-Ray 01/13/18 20:43 CONCLUSION: Clear lungs. Possible compression deformity at the thoracolumbar junction age indeterminate. Cervical Spine MRI 01/14/18 00:00 CONCLUSION: 1. Examination is degraded by motion artifact. 2. Partial visualization of a mass involving the left supraclavicular region measuring 5.[address] scan of the soft tissues of the neck with IV contrast to further assess if the patient can't hold still for that exam. 3. Diffuse degenerative changes as detailed at each level in the above discussion. Head MRI 01/14/18 00:00 CONCLUSION: 1. No acute intracranial abnormality. 2. Encephalomalacia involving the left frontal lobe. Lumbar Spine MRI 01/14/18 00:00 CONCLUSION: 1. Posterior fusion from L1 to L5. This in combination with motion artifact degrades the study. 2. Central canal appears patent throughout its visualized extent. 3. Old T12 compression deformity. Shoulder MRI 01/14/18 00:00 CONCLUSION: 1. Large full-thickness chronic appearing rotator cuff tear as described. 2. Joint effusion which communicates with large periarticular fluid collections characteristic of periarticular ganglions and bursal fluid collections. Internal debris is identified within the fluid collections. 3. Denervation versus disuse atrophy of the periarticular musculature. 4. Glenohumeral subluxation characteristic of chronic rotator cuff tear. 5. Moderate arthropathy of the glenohumeral joint with remodeling, hyaline cartilage thinning and marginal spurring. 6. Advanced acromioclavicular degenerative disease with periarticular ganglion. 7. Torn biceps tendon. 8. A cortical cyst formation seen in the superolateral humeral head. 9. Periarticular loose bodies within the fluid collections. Sign Thoracic Spine MRI 01/14/18 00:00 CONCLUSION: 1. See the MRI of the cervical spine reported separately. 2. Orthopedic hardware at the thoracolumbar junction. 3. Patent central canal throughout. Head CT 01/14/18 00:31 CONCLUSION: 1. No acute intracranial findings. 2. 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 . Venous Doppler Study 01/14/18 09:20 CONCLUSION: 1. The study is negative for lower extremity deep venous thrombosis. Soft Tissue Neck CT 01/16/18 00:00 CONCLUSION: 1. Partially visualized fluid and gas collection deep to the left trapezius muscle in the posterior lower neck extending into the posterior thorax. Chest CT with contrast could be performed to image the remainder of the abnormality. Differential diagnosis includes abscess and hematoma. 2. Degenerative findings of the cervical spine. Chest CT 01/16/18 11:15 CONCLUSION: 1. Lobulated mass in the left supraclavicular region. It is most suggestive of a multi lobulated loculated abscess given the air within several of the masses. 2. Bibasilar areas of consolidation or atelectasis. There are mild bilateral pleural effusion. 3. There is a drain over the right shoulder region. 4. Postsurgical change at the thoracolumbar region as described above. Abscess Drainage CT 01/17/18 00:00 CONCLUSION: 1. Uncomplicated CT guided drainage, as above. WBC Scan Nuclear Medicine 01/18/18 00:00 CONCLUSION: 1. Multiple areas of abnormal uptake including at the upper lumbar spine around the upper left surgical hardware and at the L1-2 disc level. 2. Abnormal activity around the clip joints bilaterally being more prominent on the right. 3. Abnormal activity in the right C2-3 facet and the left C7-T1 facet. 4. Small area of signal abnormality in the posterior right sacroiliac joint region separate from surgical hardware. 5. All these areas are concerning for active infection. Chest X-Ray 01/19/18 00:00 CONCLUSION: 1. Cardiomegaly with pulmonary edema pattern. 2. Small bilateral pleural effusions with associated lower lobe airspace disease, presumably atelectasis. Chest X-Ray 01/20/18 11:30 CONCLUSION: Interval development of dense consolidative change in the right lung base. Shoulder X-Ray 01/21/18 00:00 CONCLUSION: Unusual positioning of the shoulder but I do not see any obvious displaced fracture of the shoulder. There is a healing third rib fracture and healing seventh rib fracture. Chest X-Ray 01/21/18 06:00 CONCLUSION: Bilateral mostly basilar airspace disease and pleural effusions similar to January 20. Chest X-Ray 01/22/18 00:00 CONCLUSION: Satisfactory Central line placement. Bibasilar pleural-parenchymal opacities with worsening atelectasis in the right base. Upper Extremity Ultrasound 01/22/18 00:00 CONCLUSION: 1. Lateral right shoulder subcutaneous complex fluid collection concerning for abscess. This is amenable to percutaneous drainage. Chest X-Ray 01/22/18 06:00 CONCLUSION: Bibasilar airspace consolidation with small effusions. No pneumothorax. No significant change since January 21. Chest X-Ray 01/22/18 17:13 CONCLUSION: Improved right base aeration. No evidence of pneumothorax or other complication post bronchoscopy Abscess Drainage Ultrasound 01/23/18 00:00 CONCLUSION: 1. Uncomplicated ultrasound-guided drainage catheter placement in complex inferolateral right shoulder fluid collection. Lumbar Spine MRI 01/23/18 00:00 CONCLUSION: Little or no change from previous exam. Nothing to suggest abscess Pelvis MRI 01/23/18 00:00 CONCLUSION: 1. Diffuse skin thickening and subcutaneous edema suggestive of cellulitis involving the left buttock without underlying abscess formation. 2. Rectosigmoid colon is distended with fecal debris suggestive of fecal impaction. Clinical correlation is recommended. 3. Markedly enlarged prostate. 4. Degenerative changes and scoliosis of the visualized lower lumbar spine are noted. 5. Bony changes involving the left sacrum likely representing old healed insufficiency fractures. Shoulder MRI 01/23/18 00:00 CONCLUSION: 1. Chronic complete rotator cuff tear. 2. Moderate joint fluid Chest X-Ray 01/23/18 05:00 CONCLUSION: Bilateral mostly basilar airspace disease and pleural effusions. No pneumothorax. Support apparatus in good position. No significant change since prior exam. ECG Data EKG Prior to Arrival: No Attestation: I personally reviewed and interpreted this ECG as follows: Discharge Plan Discharge Disposition Patient Disposition: 30 Still Patient Discharge Condition Condition: Stable Discharge Details Diagnosis: Acute UTI, Atrial fibrillation Physicians Team ED Provider: Chuck Washingotn Primary Care Provider: Everton Velazquez Attending Provider: Jacky Ferreira Other Providers: Geoff Garner ; Yaniv Gomez ; Marlyn Tom ; Romeo Geller ; Oumar Bernardo ; Alan Piña ; Miki Shen ; Hari Lizarraga ; Alberto Stringer ; Fili Wolf ; Seun Triana ; Tanesha Boyce ; Gabriel Krishnan ; Fernando Frazier F Status ED Status: Left Department Discharge Information Discharge Date/Time: 01/14/18 01:43
[2018-01-13 22:00] LABS: Amorphous Sediment,Urine Few /hpf; Bacteria,Urine Few /hpf; Bilirubin,Urine Negative (Negative); Clarity,Urine Hazy (Clear); Color,Urine Yellow (Yellw/Straw); Glucose,Urine (UA) 50 mg/dL (Negative); Hyaline Casts,Urine 1 /lpf (0-3); Leukocyte Esterase,Urine Large (Negative); Mucus,Urine Few /lpf (Occasional); Nitrite,Urine Negative (Negative); Specific Gravity,Urine 1.014 (1.002-1.035)
[2018-01-13] MEDS ORDERED: Sodium Chlor 0.9% Inj 500 ML IV.SIG SCH ×2 (22:00→23:45)
[2018-01-13 22:16] LABS: Alanine Aminotransferase 31 U/L (12-78)
[2018-01-13 22:19] LABS: Alkaline Phosphatase 116 U/L (45-117); Total Protein 5.6 g/dL (6.4-8.2); Troponin I 0.02 ng/mL (0.02-0.05)
[2018-01-13 22:22] LABS: Albumin 1.8 g/dL (3.4-5.0); Anion Gap 4 meq/L (5-15); Aspartate Aminotransferase 26 U/L (15-37); Blood Urea Nitrogen 48 mg/dL (7-18); Calcium 8.2 mg/dL (8.5-10.1); Carbon Dioxide 27.8 meq/L (21.0-32.0); Chloride 103 meq/L (98-107); Glomerular Filtration Rate 36 mL/min (>89); Glucose,Random 176 mg/dL (74-106); Magnesium 1.9 mg/dL (1.5-2.5); Potassium 4.3 meq/L (3.5-5.1); Sodium 135 meq/L (136-145)
--- NOTE | 2018-01-14 00:42 | CT ---
EXAM DATE: 01/14/2018 12:00 AM EST AGE/SEX: 82 years / Male INDICATIONS: Left lower quadrant pain. CLINICAL DATA: This is the patient's initial encounter. Patient reports that signs and symptoms have been present for 1 day and indicates a pain score of 5/10. MEDICAL/SURGICAL HISTORY: Hypertension. Hypothyroidism. Fusion, lumbar. ORAL CONTRAST: No oral contrast ingested. RADIATION DOSE: 14.52 CTDI (mGy) COMPARISON: No prior exams available for comparison. TECHNIQUE: Multiple contiguous axial images were obtained through the abdomen and pelvis following b olus infusion of 50 ml Visipaque 320 (iodixanol) nonionic water-soluble contrast as a single exam d ose. No oral contrast ingested. Using automated exposure control and adjustment of the mA and/or kV according to patient size, radiation dose was kept as low as reasonably achievable to obtain optimal diagnostic quality images. DICOM format image data is available electronically for review and compar luisito. FINDINGS: Lower Lungs: Diffusely enlarged heart. Small bilateral pleural effusions. Liver: The liver has a homogeneous density without space-occupying lesion. There is no dilation of th e biliary tree. Spleen: Homogeneous density without enlargement. Pancreas: Unremarkable without mass or calcification. Kidneys: Bilateral renal cysts with the largest being in the right lower pole measuring 5.1 cm. No e vidence for hydronephrosis. Arterial calcification noted. Adrenal Glands: Unremarkable. Aorta: Tortuous and calcified. Diameter within normal limits. Bowel/Mesentery: Air-filled distention of the sigmoid colon. No free air or free fluid. Appendix wit hin normal limits. Abdominal Wall: Intact. Retroperitoneum: No evidence of adenopathy in the retrocrural, para-aortic, or deep pelvic regions. Bladder: Contours are smooth. Reproductive Organs: Marked enlargement of the prostate measuring 6 cm in greatest transverse dimens ion. Calcification also noted. Inguinal: The inguinal region is unremarkable without evidence of adenopathy. Bony Structures: Postsurgical findings of the lumbar spine with posterior fusion hardware. Severe fa cet arthrosis at L5-S1. Evidence of old insufficiency type fractures of the left-sided pubic rami and left side of the sacrum. CONCLUSION: 1. Marked prostate enlargement. 2. Air-filled distention of sigmoid colon. 3. Cardiomegaly. Small bilateral pleural effusions. 4. Diffuse atherosclerotic disease and arterial calcification. 5. Old insufficiency type fractures of the left side of the sacrum and left-sided pubic rami. Electronically signed by: Ward Cervantes MD 01/14/2018 12:41 AM EST
[2018-01-14] MEDS ORDERED: Bisacodyl 10 MG Supp RECTAL PRN (01:22)
--- NOTE | 2018-01-14 01:46 | P.HP ---
History of Present Illness Service: [facility] Primary Care Physician: Everton Velazquez MD History of Present Illness: 82-year-old male with a past medical history significant for hypertension, BPH and GERD presents to the emergency department for evaluation of altered mental status. The patient just returned from [facility] where he was treated for 3 consecutive urinary tract infections over the last 45 days. Prior to leaving, the patient's daughter reports that he received a flu shot and there was concern for Gujhony Monroy as the patient developed increasing weakness following the immunization. Prior to being immunized, the patient was able to ambulate with a cane and is currently nonambulatory. He has intermittent hallucinations and altered mental status. On his arrival from [facility] yesterday, the family noticed hand swelling, labored breathing, fever, fatigue/weakness and confusion. During his hospitalization in [facility] there was also discussion of possible renal and liver biopsies with concern for amyloidosis or possible multiple myeloma. No fevers/chills. No chest pain or shortness of breath although the patient's family notes labored breathing. No abdominal pain. No nausea/vomiting/diarrhea. No lateralizing signs/symptoms. Review of Systems All other systems reviewed negative except as stated in HPI PMFSH - History History Provided By: Family Member - Medical History Medical History: Medical History (Last Reviewed 01/14/18 @ 01:36 by Lianet Villegas MD) Atrial fibrillation BPH (benign prostatic hyperplasia) Depression HTN (hypertension) Hypothyroid PUD (peptic ulcer disease) - Surgical History Surgical History: Surgical History (Last Reviewed 01/14/18 @ 01:36 by Lianet Villegas MD) H/O neck surgery - Family History Family History: Family History (Last Updated 01/14/18 @ 01:36 by Lianet Villegas MD) Other Family history normal - Tobacco History Second Hand Smoke Exposure: No Smoking Status: Never smoker - Alcohol History How Often Do You Have a Drink Containing Alcohol: Never - Substance Use History Substance History: No History of Abuse - Travel History Recent Travel in the [place] Within the Last 8 Weeks: No Recent Travel Out of the Country Within the Last 8 Weeks: Yes - Immunization History Tetanus Immunization: >5 Years Medications and Allergies Active Medications: Active Medications Acetaminophen (Tylenol) 650 mg PO Q4H PRN PRN Reason: Temp > 100.4 Al Hydroxide/Mg Hydroxide (Milk Of Magnesia Liq) 30 ml PO Q12H PRN PRN Reason: Mild Constipation Amlodipine Besylate (Norvasc) 5 mg PO DAILY [facility] Apixaban (Eliquis) 2.5 mg PO BID [facility] Bisacodyl (Dulcolax Supp) 10 mg RECTAL DAILY PRN PRN Reason: SEVERE CONSITIPATION Citalopram Hydrobromide (Celexa) 20 mg PO DAILY [facility] Levofloxacin/Dextrose (Levaquin 750 Mg Premix Inj) 150 mls @ 100 mls/hr IV.SIG Q48H [facility] Sodium Chloride (Ns Inj) 1,000 mls @ 70 mls/hr IV.CONT .[id number] [facility] Lactulose (Lactulose Liq) 30 ml PO DAILY PRN PRN Reason: SEVERE CONSITIPATION Levothyroxine Sodium (Synthroid) 100 mcg PO DAILY [facility] Metoprolol Succinate (Toprol Xl) 50 mg PO DAILY [facility] Ondansetron HCl (Zofran Inj) 4 mg IV.PUSH Q6H PRN PRN Reason: NAUSEA OR VOMITING Pantoprazole Sodium (Protonix) 20 mg PO DAILY [facility] Prednisone (Deltasone) 40 mg PO DAILY [facility] Senna/Docusate Sodium (Diana-Colace) 1 tab PO BID [facility] Sennosides (Senokot) 17.2 mg PO Q12H PRN PRN Reason: Moderate Constipation Sodium Chloride (Ns Flush) 2 ml IV.FLUSH PRN PRN PRN Reason: FLUSH AFTER USING IV ACCESS Tamsulosin HCl (Flomax) 0.4 mg PO DAILY [facility] Allergies Allergy/AdvReac Type Severity Reaction Status Date / Time amoxicillin Allergy Severe Hives Verified 01/13/18 20:44 Home Medications Medication Instructions Recorded Confirmed Type amlodipine 5 mg PO DAILY 01/13/18 01/13/18 History citalopram 20 mg PO DAILY 01/13/18 01/13/18 History levothyroxine [Synthroid] 100 mcg PO DAILY 01/13/18 01/13/18 History lisinopril 10 mg PO DAILY 01/13/18 01/13/18 History metoprolol succinate 50 mg PO DAILY 01/13/18 01/13/18 History pantoprazole 20 mg PO DAILY 01/13/18 01/13/18 History prednisone 40 mg PO DAILY 01/13/18 01/13/18 History tamsulosin [Flomax] 0.4 mg PO DAILY 01/13/18 01/13/18 History Exam Vital signs: Vital Signs 01/13/18 20:36 01/13/18 21:02 01/13/18 22:44 Temperature 99.7 F H Pulse Rate 89 90 98 H Respiratory Rate 22 18 Blood Pressure 153/78 H 143/79 H Pulse Oximetry 98 98 96 01/13/18 23:15 Temperature Pulse Rate 84 Respiratory Rate 20 Blood Pressure 152/67 H Pulse Oximetry 97 Intake & Output 01/13/18 01/13/18 01/14/18 06:59 18:59 06:59 Intake Total 1100 / 1100 Output Total 500 / 500 Balance 600 / 600 Weight 68.039 kg Intake: IV 1100 / 1100 NS Inj 500 ML @ 1000 mls/hr IV. 1000 / 1000 SIG BOLUS CHAYO Rx#:[id number] Rocephin Inj 1,000 MG In NS Inj 100 / 100 100 ML @ 200 mls/hr IV.SIG ONCE ONE Rx#:[id number] Output: Urine 500 / 500 Other: # Voids 1 Narrative: Gen.: No acute distress. Head: Normocephalic. Atraumatic. EENT: Pupils equal round and reactive to light. Nose without drainage. Airway intact. Throat without injection. Cardiovascular: Regular rate. Irregularly irregular rhythm. No murmurs, rubs or gallops. Respiratory: Mildly labored breathing. Lungs clear to auscultation in the anterior santizo. Abdomen: Soft, nontender, nondistended. No peritoneal signs. Musculoskeletal: No gross deformities. No edema. Skin: No obvious rashes or erythema. Neuro: Sensory and motor grossly intact. Cranial nerves II through XII grossly intact. Results - Labs CBC & Chem 7: 01/13/18 21:00 01/13/18 21:00 Labs: Laboratory Results - last 24 hr 01/13/18 01/13/18 01/13/18 21:00 21:00 21:20 WBC 10.5 RBC 3.75 L Hgb 9.8 L Hct 31.3 L MCV 83.6 MCH 26.2 L MCHC 31.4 L RDW 18.5 H Plt Count 199 MPV 8.3 Neut % (Auto) 93.7 H Lymph % (Auto) 3.6 L [place] % (Auto) 2.7 Eos % (Auto) 0.0 Baso % (Auto) 0.0 Neut # (Auto) 9.9 H Lymph # (Auto) 0.4 L [place] # (Auto) 0.3 Eos # (Auto) 0.0 Baso # (Auto) 0.0 WBC Differential . Differential Comment Auto diff final Sodium 135 L Potassium 4.3 Chloride 103 Carbon Dioxide 27.8 Anion Gap 4 L BUN 48 H Creatinine 1.80 H Estimated GFR 36 L Random Glucose 176 H Calcium 8.2 L Magnesium 1.9 Total Bilirubin 0.3 AST 26 ALT 31 Alkaline Phosphatase 116 Troponin I 0.02 Total Protein 5.6 L Albumin 1.8 L Urine Color Yellow Urine Clarity Hazy H Urine pH 5.0 Ur Specific [place] 1.014 Urine Protein 100 H Urine Glucose (UA) 50 Urine Ketones Negative Urine Occult Blood Negative Urine Nitrate Negative Urine Bilirubin Negative Urine Urobilinogen Less than 2 Ur Leukocyte Esterase Large H Urine RBC 1 Urine WBC 99 H Amorphous Sediment Few H Urine Bacteria Few H Hyaline Casts 1 Urine Mucus Few H Micro UA Comment Culture indicated Ur Microscopic Review Not Reportable Urine Culture Comments Culture indicated - Imaging Impressions Abdomen/Pelvis CT 01/13/18 20:43 CONCLUSION: 1. Marked prostate enlargement. 2. Air-filled distention of sigmoid colon. 3. Cardiomegaly. Small bilateral pleural effusions. 4. Diffuse atherosclerotic disease and arterial calcification. 5. Old insufficiency type fractures of the left side of the sacrum and left- sided pubic rami. Chest X-Ray 01/13/18 20:43 CONCLUSION: Clear lungs. Possible compression deformity at the thoracolumbar junction age indeterminate. Caprini VTE Risk Assessment Caprini VTE Risk Assessment: Moderate/High Risk (score >= 2) Caprini Risk Assessment Model: Point Value = 1 Point Value = 2 Point Value = 3 Point Value = 5 Age 41-60 Minor surgery BMI > 25 kg/m2 Swollen legs Varicose veins or History of unexplained or recurrent spontaneous Oral contraceptives or hormone replacement Sepsis (< 1 month) Serious lung disease, including pneumonia (< 1 month) Abnormal pulmonary function Acute myocardial infarction Congestive heart failure (< 1 month) History of inflammatory bowel disease Medical patient at bed rest Age 61-74 Arthroscopic surgery Major open surgery (> 45 min) Laparoscopic surgery (> 45 min) Malignancy Confined to bed (> 72 hours) Immobilizing plaster cast Central venous access Age >= 75 History of VTE Family history of VTE Factor V Leiden Prothrombin [id number] Lupus anticoagulant Anticardiolipin antibodies Elevated serum homocysteine Heparin-induced thrombocytopenia Other congenital or acquired thrombophilia Stroke (< 1 month) Elective arthroplasty Hip, pelvis, or leg fracture Acute spinal cord injury (< 1 month) Prophylaxis Regimen: Total Risk Factor Score Risk Level Prophylaxis Regimen 0-1 Low Early ambulation 2 Moderate Order ONE of the following: *Sequential Compression Device (SCD) *Heparin 5000 units SQ BID 3-4 Higher Order ONE of the following medications: *Heparin 5000 units SQ TID *Enoxaparin/Lovenox 40 mg SQ daily (WT < 150 kg, CrCl > 30 mL/min) *Enoxaparin/Lovenox 30 mg SQ daily (WT < 150 kg, CrCl > 10-29 mL/min) *Enoxaparin/Lovenox 30 mg SQ BID (WT < 150 kg, CrCl > 30 mL/min) AND/OR *Sequential Compression Device (SCD) 5 or more Highest Order ONE of the following medications: *Heparin 5000 units SQ TID (Preferred with Epidurals) *Enoxaparin/Lovenox 40 mg SQ daily (WT < 150 kg, CrCl > 30 mL/min) *Enoxaparin/Lovenox 30 mg SQ daily (WT < 150 kg, CrCl > 10-29 mL/min) *Enoxaparin/Lovenox 30 mg SQ BID (WT < 150 kg, CrCl > 30 mL/min) AND *Sequential Compression Device (SCD) Assessment and Plan - Plan Assessment/plan: 1. Weakness/fatigue/altered mental status May be secondary to infectious process -plan as below Head CT pending Progressively worsening over the past 45 days 2. Urinary tract infection Patient with 3 previous urinary tract infections in the last 45 days. -E. coli treated with Rocephin times 10 days -Pseudomonas treated with Levaquin -Unknown organism treated with Bactrim Status post Rocephin in the ED, begin Levaquin (renally dosed) Urine/blood cultures pending 3. Atrial fibrillation Patient with previous episode of atrial fibrillation in 2016 during the hospitalization. Anticoagulated on Eliquis for 2-3 months then discontinued as patient was found to be in normal sinus rhythm EKG significant for atrial fibrillation (rate controlled) Begin Eliquis Echo pending Telemetry Cardiology consulted, appreciate assistance 4. Liver lesion CT of the abdomen/pelvis significant for a homogeneous density of the liver without space-occupying lesion LFTs within normal limits Monitor 5. Chronic kidney disease Patient status post renal failure requiring dialysis related to pain medication Creatinine 1.80, baseline from 2017 Monitor renal function Avoid nephrotoxic agents and renally dose medications Holding lisinopril 6. Hypertension Continue amlodipine, metoprolol 7. BPH/hypothyroidism/GERD Continue home medications -Patient on 40 mg of prednisone daily, daughter is unsure as to the exact reason for this medication however reports that he was prescribed this medication by his primary care physician prior to his visit to [facility] where it was discontinued and then restarted. Continue at this time. FEN Heart healthy diet Electrolytes: Monitor and replete as needed Eliquis NS at 70 cc/hour
--- NOTE | 2018-01-14 01:58 | CT ---
EXAM DATE: 01/14/2018 1:43 AM EST AGE/SEX: 82 years / Male INDICATIONS: Altered mental status. CLINICAL DATA: This is the patient's initial encounter. Patient reports that signs and symptoms have been present for 1 day and indicates a pain score of Nonresponsive. MEDICAL/SURGICAL HISTORY: Non-responsive. Non-responsive. RADIATION DOSE: 66.34 CTDI (mGy) COMPARISON: [facility] [place], [place] BRAIN W/O CONTRAST, 06/06/2016. . TECHNIQUE: CT of the head without contrast. Using automated exposure control and adjustment of the mA and/or kV according to patient size, radiation dose was kept as low as reasonably achievable to ob tain optimal diagnostic quality images. DICOM format image data is available electronically for revi ew and comparison. FINDINGS: Cerebrum: Hypodensity and volume loss in the left frontal lobe indicating encephalomalacia unchanged from 2017. No evidence of acute intracranial hemorrhage or extra-axial fluid collection. No mass eff ect or midline shift. No evidence of acute infarct. Posterior Fossa: The cerebellum and brainstem are intact. The 4th ventricle is midline. The cerebe llopontine angle is unremarkable. Extracranial: The visualized portion of the orbits is intact. Skull: Postsurgical findings in the left frontal region. CONCLUSION: 1. No acute intracranial findings. 2. 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 . Electronically signed by: Ward Cervantes MD 01/14/2018 1:57 AM EST
[2018-01-14] MEDS ORDERED: Sodium Chloride 0.9% 2 ML Flush PRN IV.FLUSH (02:59)
[2018-01-14] MEDS: Sod Chloride 0.9% Inj 1,000 ML IV.CONT SCH ×2 (03:05→18:03)
[2018-01-14 03:37] LABS: Baso % (Auto) 0.1 % (0.0-2.0); Hematocrit 32.3 % (39.0-51.0); Hemoglobin 10.1 gm/dL (13.0-17.0); Lymph # (Auto) 0.4 th/mm3 (1.0-4.8); Lymph % (Auto) 4.8 % (9.0-44.0); Mean Corpuscular HGB Conc 31.3 % (32.0-36.0); Mean Corpuscular Volume 83.3 fL (80.0-100.0); Mean Platelet Volume 8.1 fL (7.0-11.0); Mono # (Auto) 0.2 th/mm3 (0.0-0.9); Mono % (Auto) 2.2 % (0.0-8.0); Neut # (Auto) 8.5 th/mm3 (1.8-7.7); Neut % (Auto) 92.9 % (16.0-70.0); Platelet Count 207 th/mm3 (150-450); Red Blood Count 3.88 mil/mm3 (4.50-5.90); Red Cell Distribution Width 18.6 % (11.6-17.2); White Blood Count 9.1 th/mm3 (4.0-11.0)
[2018-01-14 03:50] LABS: Calcium 8.3 mg/dL (8.5-10.1); Carbon Dioxide 28.4 meq/L (21.0-32.0); Potassium 4.1 meq/L (3.5-5.1)
[2018-01-14] MEDS: Levothyroxine 100 MCG Tablet PO SCH (05:00)
--- NOTE | 2018-01-14 07:54 | P.EN ---
Discussed labs, imaging findings and plan of care with patient, daughter (Kimberly ) at bedside. Family and PCP were concerned that patient may have pneumonia. CXR reviewed and shows clear lungs. CT abdomen/pelvis shows cardiomegaly with small bilateral pleural effusions. Patient with progressively worsening generalized weakness since having Flu shot in [place] a few weeks ago. Spoke with patient's [id number] Shaheed over the phone. She stated that patient has a history of adrenal insufficiency and Unicoi's disease and is currently on Prednison. He underwent work up while in [place] including bone marrow biopsy for suspected multiple myeloma. She states patient may have probable amyloidosis which may be contributing to his symptoms and request for patients Hem/Onc specialist Dr Shen to be consulted. All questions answered at bedside. Patient denies chest pain, palpitations, lower extremity pain, edema or swelling. He reports mild to moderate shortness of breath at rest. Heart rate remains controlled.
[2018-01-14] MEDS: Sodium Chloride 0.9% 2 ML Flush BID IV.FLUSH SCH (09:04)
[2018-01-14] MEDS: Citalopram 20 MG Tablet PO SCH (09:04)
[2018-01-14] MEDS: Pantoprazole Sodium 20 MG DR Tablet PO SCH (09:04)
[2018-01-14] MEDS: Senna/Docusate Sodium 8.6/50 MG Tablet PO SCH (09:04)
[2018-01-14] MEDS: amLODIPine 5 MG Tablet PO SCH (09:04)
[2018-01-14] MEDS: predniSONE 20 MG Tablet PO SCH (09:04)
[2018-01-14 11:50] LABS: C-Reactive Protein 17.2 mg/dL (0.00-0.30)
[2018-01-14] MEDS ORDERED: Morphine Sulfate Inj 2 MG/ML Vial IV.PUSH PRN (13:00)
[2018-01-14] MEDS ORDERED: Morphine Sulfate Inj 2 MG/ML Vial IM ONE (13:00)
--- NOTE | 2018-01-14 13:09 | MR ---
EXAM DATE: 01/14/2018 12:53 PM EST AGE/SEX: 82 years / Male INDICATIONS: . Generalized weakness with inability to ambulate. CLINICAL DATA: This is the patient's subsequent encounter. Patient reports that signs and symptoms h ave been present for 2 weeks and indicates a pain score of 3/10. MEDICAL/SURGICAL HISTORY: Hypertension. Hypothyroidism. A fib Appendectomy. Fusion, lumbar. COMPARISON: No prior exams available for comparison. TECHNIQUE: Multiplanar, multisequence MRI examination of the cervical spine was performed without co ntrast. FINDINGS: Motion artifact degrades the exam. Vertebrae: Normal vertebral body height. Homogeneous marrow signal. Alignment: Mild grade 1 anterolisthesis of C3 on C4 and C7 on T1... Cord: Normal configuration and signal. Post Fossa: The cerebellar tonsils are normal in position. There is partial visualization of a mass involving the left supraclavicular region. This measures cyrus roximately 5.5 cm in diameter. C2-C3: Disc desiccation without disc space narrowing. A minimal central bulge. Central canal and roxy ral foramina are grossly patent. C3-C4: Disc desiccation without disc space narrowing. A minimal broad-based bulge. Central canal and neural foramina are grossly patent. C4-C5: Disc desiccation without disc space narrowing. Minimal broad-based bulge. Central canal and n eural foramina are grossly patent.. C5-C6: Disc desiccation with disc space narrowing and moderate broad-based disc bulge which just kathy ches the ventral portion of the cord. Neural foramina are grossly patent.. C6-C7: Disc desiccation and disc space narrowing with a moderate broad-based disc bulge which abuts the ventral portion of the cord. Neural foramina are grossly patent. C7-T1: Disc desiccation with disc space narrowing and moderate broad-based disc bulge which abuts th e ventral portion of the cord. Neural foramina are grossly patent.. CONCLUSION: 1. Examination is degraded by motion artifact. 2. Partial visualization of a mass involving the left supraclavicular region measuring 5.[address] scan of the soft tissues of the neck with IV contrast to further assess if the patient can't h old still for that exam. 3. Diffuse degenerative changes as detailed at each level in the above discussion. Electronically signed by: Rusty Camara MD 01/14/2018 1:08 PM EST
--- NOTE | 2018-01-14 13:12 | MR ---
EXAM DATE: 01/14/2018 12:40 PM EST AGE/SEX: 82 years / Male INDICATIONS: . Generalized weakness with inability to ambulate. CLINICAL DATA: This is the patient's subsequent encounter. Patient reports that signs and symptoms h ave been present for 2 weeks and indicates a pain score of 3/10. MEDICAL/SURGICAL HISTORY: Hypertension. Hypothyroidism. A fib Appendectomy. Discectomy, lumb ar. COMPARISON: No prior exams available for comparison. TECHNIQUE: Multiplanar, multisequence MRI of the thoracic spine was performed. FINDINGS: See the C-spine MRI reported separately. This examination is degraded by motion artifact. Vertebrae: Orthopedic hardware generates artifact at the thoracolumbar junction. This totally obscur es the inferior aspects of T12 through the upper lumbar spine. Normal vertebral body height. Homogen eous marrow signal. Alignment: Normal. Cord: Normal position and configuration. Partial visualization of a left supraclavicular mass. This is described in the MRI of the C-spine. T1-T2: The thecal sac has a normal diameter. No evidence of disc bulge or protrusion. T2-T3: The thecal sac has a normal diameter. No evidence of disc bulge or protrusion. T3-T4: The thecal sac has a normal diameter. No evidence of disc bulge or protrusion. T4-T5: The thecal sac has a normal diameter. No evidence of disc bulge or protrusion. T5-T6: The thecal sac has a normal diameter. No evidence of disc bulge or protrusion. T6-T7: The thecal sac has a normal diameter. No evidence of disc bulge or protrusion. T7-T8: The thecal sac has a normal diameter. No evidence of disc bulge or protrusion. T8-T9: The thecal sac has a normal diameter. No evidence of disc bulge or protrusion. T9-T10: The thecal sac has a normal diameter. No evidence of disc bulge or protrusion. T10-T11: The thecal sac has a normal diameter. No evidence of disc bulge or protrusion. T11-T12: The thecal sac has a normal diameter. No evidence of disc bulge or protrusion. T12-L1: The thecal sac has a normal diameter. No evidence of disc bulge or protrusion. CONCLUSION: 1. See the MRI of the cervical spine reported separately. 2. Orthopedic hardware at the thoracolumbar junction. 3. Patent central canal throughout. Electronically signed by: Rusty Camara MD 01/14/2018 1:10 PM EST
--- NOTE | 2018-01-14 13:26 | ECG ---
Date Performed: 01/13/2018 Time Performed: 22:05:38 PTAGE: 82 years EKG: ATRIAL FIBRILLATION SEPTAL MYOCARDIAL INFARCTION ABNORMAL ECG Since the PREVIOUS TRACING , no significant change noted PREVIOUS TRACIN01/13/2018 21.08 DOCTOR: Sherry Sweet Interpretating Date/Time 01/14/2018 13:23:58
--- NOTE | 2018-01-14 13:47 | ECG ---
Date Performed: 01/13/2018 Time Performed: 21:08:10 PTAGE: 82 years EKG: ATRIAL FIBRILLATION SEPTAL MYOCARDIAL INFARCTION Compared to previous tracing atrial fib is new, lateral T wave changes are new. Clinical correlation is recommended ABNORMAL ECG PREVIOUS TRACING : 06/07/2016 18.36 DOCTOR: Sherry Sweet Interpretating Date/Time 01/14/2018 13:44:59
--- NOTE | 2018-01-14 13:48 | MR ---
EXAM DATE: 01/14/2018 1:27 PM EST AGE/SEX: 82 years / Male INDICATIONS: . Generalized weakness with inability to ambulate. CLINICAL DATA: This is the patient's subsequent encounter. Patient reports that signs and symptoms h ave been present for 2 weeks and indicates a pain score of 3/10. MEDICAL/SURGICAL HISTORY: Hypertension. Hypothyroidism. A fib Appendectomy. Fusion, lumbar. COMPARISON: [facility] [place] W/O CONTRAST, 01/14/2018.. . TECHNIQUE: Multiplanar, multisequence examination of the brain was performed without contrast. FINDINGS: Cerebrum: Area of encephalomalacia involving the left frontal lobe. The ventricles are normal for ag e. No evidence of midline shift, mass lesion, hemorrhage or acute infarction. No extraaxial fluid c ollections are seen. The pituitary gland and suprasellar cistern are normal in configuration. White Matter: No significant signal abnormalities are seen in the white matter. Posterior Fossa: The cerebellum and brainstem are intact. The 4th ventricle is midline. The cerebel lopontine angle is unremarkable. The cerebellar tonsils are normal in position. Diffusion Imaging: No focal areas of restricted diffusion are seen. No evidence of acute infarction . Extracranial: The visualized portions of the orbits and paranasal sinuses are unremarkable. CONCLUSION: 1. No acute intracranial abnormality. 2. Encephalomalacia involving the left frontal lobe. Electronically signed by: Rusty Camara MD 01/14/2018 1:46 PM EST
--- NOTE | 2018-01-14 14:30 | MR ---
EXAM DATE: 01/14/2018 2:15 PM EST AGE/SEX: 82 years / Male INDICATIONS: . Generalized weakness with inability to ambulate. CLINICAL DATA: This is the patient's subsequent encounter. Patient reports that signs and symptoms h ave been present for 2 weeks and indicates a pain score of 3/10. MEDICAL/SURGICAL HISTORY: Hypertension. Hypothyroidism. A fib Appendectomy. Fusion, lumbar. COMPARISON: No prior exams available for comparison. TECHNIQUE: Multiplanar, multisequence MRI examination of the lumbar spine was performed without and with 7 ml Gadavist (gadobutrol) contrast as a single exam dose. FINDINGS: The most caudal-appearing lumbar vertebra is numbered as L5. Motion artifact degrades the exam. Vertebra: Posterior fixation hardware is seen extending from L1 to L5. This generates artifact obscu ring these levels. There is a compression deformity involving the T12 vertebral body with loss of hei ght of the inferior endplate. No associated edema with this. Marrow signal is homogeneous throughout. A scoliotic curvature is observed.. A mild retrolisthesis of L4 on L5. Conus: Normal level and configuration. Post Contrast: No abnormal areas of contrast enhancement are seen. T12-L1: Significant disc space narrowing. No appreciable bulge or protrusion. The central canal is p atent. Neural foramina are somewhat limited in their evaluation but appear grossly patent. L1-L2: There is a slight elevation in the T2 signal of the disc space. There is no abnormal enhance ment. This is felt to be postsurgical in nature. No bulge or protrusion. Artifact limits evaluation o f the neural foramina. The right appears grossly patent. The left is totally obscured. L2-L3: Disc space narrowing without bulge or protrusion. The central canal is patent. The left neur al foramina is totally obscured by the hardware. Right neural foramina is patent. L3-L4: Disc space narrowing without bulge or protrusion. The central canal is partially obscured bu t appears grossly patent. The neural foramina are partially obscured by the hardware but are grossly patent.. L4-L5: Considerable disc space narrowing. No bulge or protrusion observed. There is a mild retrolis thesis. Central canal is partially obscured by the hardware but appears grossly patent. The left neur al foramen is partially visualized and is patent within its visualized aspect. The right neural dimple en is totally obscured. L5-S1: Disc desiccation with minimal central bulge. Central canal is patent. Neural foramina are to tally obscured by the hardware. CONCLUSION: 1. Posterior fusion from L1 to L5. This in combination with motion artifact degrades the study. 2. Central canal appears patent throughout its visualized extent. 3. Old T12 compression deformity. Electronically signed by: Rusty Camara MD 01/14/2018 2:28 PM EST
--- NOTE | 2018-01-14 14:44 | MR ---
EXAM DATE: 01/14/2018 2:03 PM EST AGE/SEX: 82 years / Male INDICATIONS: . Right shoulder pain with swelling. CLINICAL DATA: This is the patient's subsequent encounter. Patient reports that signs and symptoms h ave been present for 2 weeks and indicates a pain score of 3/10. MEDICAL/SURGICAL HISTORY: Hypertension. Hypothyroidism. a fib Appendectomy. spinal surgery COMPARISON: No prior exams available for comparison. TECHNIQUE: Multiplanar, multisequence MRI examination was performed without contrast. FINDINGS: Rotator Cuff: A large chronic appearing thickness rotator cuff tear is noted. The supraspinatus musc le is atrophied and the musculotendinous junction is retracted medial to the glenoid rim. A chronic t ear involves a portion of the infraspinatus and subscapularis tendons as well. There is superior subl uxation of the humeral head with complete collapse of the subacromial space and [id number] appositi on of the acromion and humeral head. Large periarticular fluid collections containing debris identified surrounding the glenohumeral joint . The fluid tracks into the large supraspinatus defect. The fluid extends into the subdeltoid and sub acromial bursa. There is also posterior extent of the fluid along the outer margin of the infraspinat us muscle. Fluid and reactive material extends into the suprascapular notch. There is significant edema involvin g the subscapularis muscle, infraspinatus muscle and teres minor muscle. Labrum: Complete degeneration of the labrum is noted. There is spurring along the anterior glenoid r im and remodeling of the articulating surface. Marrow/Cartilage: Generalized thinning of the articulating cartilage is seen along the humeral head. Osteochondral defects with subchondral T2 hyperintensities are noted. Loose bodies are identified wi thin the paratracheal or fluid. Subcortical cyst measuring 2 cm is identified along the superolateral margin of the humeral head. Other: Long head of the biceps tendon cannot be identified and is torn. Musculoskeletal retraction i s identified. Arthropathy of the acromioclavicular joint is noted. A periventricular ganglion cyst has developed al jm the superior margin of the AC joint. Reactive changes are identified in the bone. CONCLUSION: 1. Large full-thickness chronic appearing rotator cuff tear as described. 2. Joint effusion which communicates with large periarticular fluid collections characteristic of pe riarticular ganglions and bursal fluid collections. Internal debris is identified within the fluid co llections. 3. Denervation versus disuse atrophy of the periarticular musculature. 4. Glenohumeral subluxation characteristic of chronic rotator cuff tear. 5. Moderate arthropathy of the glenohumeral joint with remodeling, hyaline cartilage thinning and ma rginal spurring. 6. Advanced acromioclavicular degenerative disease with periarticular ganglion. 7. Torn biceps tendon. 8. A cortical cyst formation seen in the superolateral humeral head. 9. Periarticular loose bodies within the fluid collections. Sign Electronically signed by: Danail Alfaro MD 01/14/2018 2:43 PM EST
[2018-01-14] MEDS ORDERED: Gadobutrol PF 7.5 MMOL/7.5 ML Vial (for RAD) IV.SIG ONE (15:25)
--- NOTE | 2018-01-14 16:14 | ECHRPT ---
Indication: Persistent atrial fibrillation CONCLUSIONS The left ventricular systolic function is normal with an estimated ejection fraction in the range of 60-65%. Normal left ventricular size. Wall thickness is normal. No regional wall motion abnormalities are p resent. Possible minimal mitral valve prolapse. Trace to mild mitral regurgitation. There is trace to mild tricuspid regurgitation. The estimated pulmonary arterial pressure is 35 mmH g. BP: / HR: Rhythm: Sinus MEASUREMENTS (Male / Female) Normal Values Technical Quality:Good 2D ECHO LV Diastolic Diameter PLAX 4.3 cm 4.2 - 5.9 / 3.9 - 5.3 cm LV Systolic Diameter PLAX 3.1 cm IVS Diastolic Thickness 1.1 cm 0.6 - 1.0 / 0.6 - 0.9 cm LVPW Diastolic Thickness 1.1 cm 0.6 - 1.0 / 0.6 - 0.9 cm LV Relative Wall Thickness 0.5 LVOT Diameter 1.8 cm M-MODE Aortic Root Diameter MM 3.2 cm LA Systolic Diameter MM 4.6 cm LA Ao Ratio MM 1.4 AV Cusp Separation MM 2.0 cm DOPPLER AV Peak Velocity 143.0 cm/s AV Peak Gradient 8.2 mmHg LVOT Peak Velocity 101.0 cm/s LVOT Peak Gradient 4.1 mmHg AV Area Cont Eq pk 1.8 cm MR Peak Velocity 385.5 cm/s MR Peak Gradient 59.4 mmHg Mitral E Point Velocity 86.4 cm/s Mitral A Point Velocity 52.3 cm/s Mitral E to A Ratio 1.7 LV E' Lateral Velocity 15.8 cm/s Mitral E to LV E' Lateral Ratio 5.5 LV E' Septal Velocity 9.4 cm/s Mitral E to LV E' Septal Ratio 9.2 TR Peak Velocity 274.0 cm/s TR Peak Gradient 30.0 mmHg Right Atrial Pressure 10.0 mmHg Pulmonary Artery Systolic Pressu 40.0 mmHg Right Ventricular Systolic Press 40.0 mmHg PV Peak Velocity 114.0 cm/s PV Peak Gradient 5.2 mmHg FINDINGS LEFT VENTRICLE The left ventricular systolic function is normal with an estimated ejection fraction in the range of 60-65%. Normal left ventricular size. Wall thickness is normal. No regional wall motion abnormalities are p resent. RIGHT VENTRICLE Normal right ventricular size and systolic function. LEFT ATRIUM The left atrial size is upper normal. RIGHT ATRIUM The right atrial size is normal. ATRIAL SEPTUM Normal atrial septal thickness without atrial level shunting by limited color doppler interrogation. AORTA The aortic root and proximal ascending aorta are normal in size on limited imaging. MITRAL VALVE Possible minimal mitral valve prolapse. Trace to mild mitral regurgitation. AORTIC VALVE Trileaflet aortic valve. No aortic valve stenosis or regurgitation. TRICUSPID VALVE There is trace to mild tricuspid regurgitation. The estimated pulmonary arterial pressure is 35 mmHg. PULMONARY VALVE Mild pulmonary valve regurgitation. VESSELS The inferior vena cava is normal in size. PERICARDIUM No pericardial effusion. Miguelito Mo MD (Electronically Signed) Final Date:14 January 2018 16:13
--- NOTE | 2018-01-14 17:08 | P.CONID ---
History of Present Illness Service: ID Consult date: 01/14/18 Requesting Physician: Azeb Garnica Reason for Consult: fever Primary Care Provider: Everton Velazquez MD History of Present Illness: This is a 82-year-old male with history of arterial hypertension, BPH and GERD presents to the emergency department for evaluation of altered mental status. The patient just returned from [place] where he was treated for 3 consecutive urinary tract infections over the last 45 days. Prior to leaving, the patient received a flu shot, and there was concern for Ja Monroy as the patient developed increasing weakness following the immunization. Family noted swelling of R shoulder, further work up shoed effusion and it was aspirated G stain + for GPC in pairs Per family fever x 2 mos with T max 40 F In pt low grade fever + UA with 99 WBC, + clx, immauture growth pt is started on levaquine Review of Systems All other systems reviewed negative except as stated in HPI PMFSH - History History Provided By: Family Member - Medical History Medical History: Medical History (Last Reviewed 01/14/18 @ 23:36 by Marlyn Tom MD) Atrial fibrillation BPH (benign prostatic hyperplasia) Depression HTN (hypertension) Hypothyroid PUD (peptic ulcer disease) - Surgical History Surgical History: Surgical History (Last Reviewed 01/14/18 @ 23:36 by Marlyn Tom MD) H/O neck surgery - Family History Family History: Family History (Last Reviewed 01/14/18 @ 23:36 by Marlyn Tom MD) Other Family history normal - Social History I have reviewed the patient's Social History: Yes - Tobacco History Second Hand Smoke Exposure: No Tobacco Use In Past 30 Days: No Smoking Status: Former smoker Tobacco Type: Cigars - Alcohol History How Often Do You Have a Drink Containing Alcohol: Never - Substance Use History Substance History: No History of Abuse - Travel History Recent Travel in the [place] Within the Last 8 Weeks: No Recent Travel Out of the Country Within the Last 8 Weeks: Yes - Immunization History Tetanus Immunization: Unsure Hx Influenza Vaccine This Season: Yes Medications and Allergies Active Medications: Active Medications Acetaminophen (Tylenol) 650 mg PO Q4H PRN PRN Reason: Temp > 100.4 Al Hydroxide/Mg Hydroxide (Milk Of Magnjayson Liq) 30 ml PO Q12H PRN PRN Reason: Mild Constipation Amlodipine Besylate (Norvasc) 5 mg PO DAILY [facility] Last Admin: 01/14/18 09:04 Dose: 5 mg Bisacodyl (Dulcolax Supp) 10 mg RECTAL DAILY PRN PRN Reason: SEVERE CONSITIPATION Citalopram Hydrobromide (Celexa) 20 mg PO DAILY [facility] Last Admin: 01/14/18 09:04 Dose: 20 mg Levofloxacin/Dextrose (Levaquin 750 Mg Premix Inj) 150 mls @ 100 mls/hr IV.SIG Q48H [facility] Last Infusion: 01/14/18 04:35 Dose: Infused Sodium Chloride (Ns Inj) 1,000 mls @ 70 mls/hr IV.CONT .[id number] [facility] Last Admin: 01/14/18 03:05 Dose: 70 mls/hr Lactulose (Lactulose Liq) 30 ml PO DAILY PRN PRN Reason: SEVERE CONSITIPATION Levothyroxine Sodium (Synthroid) 100 mcg PO DAILY@0600 [facility] Last Admin: 01/14/18 05:00 Dose: 100 mcg Metoprolol Succinate (Toprol Xl) 50 mg PO DAILY [facility] Last Admin: 01/14/18 09:04 Dose: 50 mg Morphine Sulfate (Morphine Inj) 2 mg IV.PUSH Q1H PRN PRN Reason: Acute Pain Ondansetron HCl (Zofran Inj) 4 mg IV.PUSH Q6H PRN PRN Reason: NAUSEA OR VOMITING Pantoprazole Sodium (Protonix) 20 mg PO DAILY [facility] Last Admin: 01/14/18 09:04 Dose: 20 mg Prednisone (Deltasone) 40 mg PO DAILY [facility] Last Admin: 01/14/18 09:04 Dose: 40 mg Senna/Docusate Sodium (Diana-Colace) 1 tab PO BID [facility] Last Admin: 01/14/18 09:04 Dose: 1 tab Sennosides (Senokot) 17.2 mg PO Q12H PRN PRN Reason: Moderate Constipation Sodium Chloride (Ns Flush) 2 ml IV.FLUSH BID [facility] Last Admin: 01/14/18 09:04 Dose: Not Given Sodium Chloride (Ns Flush) 2 ml IV.FLUSH PRN PRN PRN Reason: FLUSH AFTER USING IV ACCESS Tamsulosin HCl (Flomax) 0.4 mg PO DAILY [facility] Last Admin: 01/14/18 09:04 Dose: 0.4 mg Allergies Allergy/AdvReac Type Severity Reaction Status Date / Time amoxicillin Allergy Severe Hives Verified 01/13/18 20:44 Home Medications Medication Instructions Recorded Confirmed Type amlodipine 5 mg PO DAILY 01/13/18 01/13/18 History citalopram 20 mg PO DAILY 01/13/18 01/13/18 History levothyroxine [Synthroid] 100 mcg PO DAILY 01/13/18 01/13/18 History lisinopril 10 mg PO DAILY 01/13/18 01/13/18 History metoprolol succinate 50 mg PO DAILY 01/13/18 01/13/18 History pantoprazole 20 mg PO DAILY 01/13/18 01/13/18 History prednisone 40 mg PO DAILY 01/13/18 01/13/18 History tamsulosin [Flomax] 0.4 mg PO DAILY 01/13/18 01/13/18 History Exam Vital signs: Vital Signs 01/13/18 20:36 01/13/18 21:02 01/13/18 22:44 Temperature 99.7 F H Pulse Rate 89 90 98 H Respiratory Rate 22 18 Blood Pressure 153/78 H 143/79 H Pulse Oximetry 98 98 96 01/13/18 23:15 01/14/18 03:00 01/14/18 08:00 Temperature 97.7 F 99.6 F Pulse Rate 84 85 95 H Respiratory Rate 20 18 18 Blood Pressure 152/67 H 152/72 H 154/76 H Pulse Oximetry 97 95 95 Intake & Output 01/13/18 01/14/18 01/14/18 18:59 06:59 18:59 Intake Total 1350 / 1350 Output Total 600 / 600 Balance 750 / 750 Weight 70.4 kg Intake: IV 1250 / 1250 Levaquin 750 mg Premix Inj 150 150 / 150 ML @ 100 mls/hr IV.SIG Q48H [facility] Rx#:[id number] NS Inj 500 ML @ 1000 mls/hr IV. 1000 / 1000 SIG BOLUS [facility] Rx#:[id number] Rocephin Inj 1,000 MG In NS Inj 100 / 100 100 ML @ 200 mls/hr IV.SIG ONCE ONE Rx#:[id number] Oral 100 / 100 Output: Urine 600 / 600 Other: # Voids 3 Date of Last Bowel Movement 01/13/18 01/13/18 # Bowel Movements 1 Weight On Admission 68.039 kg - Constitutional no acute distress, average body habitus - Routine HEENT Exam Head: Present: normocephalic, atraumatic Eye: Present: EOMI, PERRL ENT: Present: mucous membranes moist, oropharynx clear - Routine Neck Exam Present: supple, full ROM. Absent: lymphadenopathy - Routine Respiratory Exam Present: decreased breath sounds, CTA bilaterally. Absent: accessory muscle use - Routine Cardiovascular Exam Present: RRR, S1, S2. Absent: murmur, gallop, rubs - Routine Abdominal Exam Present: soft, normoactive bowel sounds. Absent: tenderness, distended - Routine Extremities Exam Absent: cyanosis, clubbing, edema Comments: R SHoulder with large fluctuant mass, mildly tender - Routine Skin Exam Present: intact, dry, warm. Absent: rash - Routine Neurological Exam Present: CN II-XII intact, altered mental status (lethargic, confused), moving all extremities. Absent: sensory deficit decreased BLE strengh to 4/5 - Routine Psychiatric Exam Present: unable to assess Results - Labs CBC & Chem 7: 01/14/18 21:42 01/14/18 02:30 Labs: Laboratory Results - last 24 hr 01/13/18 01/13/18 01/13/18 21:00 21:00 21:20 WBC 10.5 RBC 3.75 L Hgb 9.8 L Hct 31.3 L MCV 83.6 MCH 26.2 L MCHC 31.4 L RDW 18.5 H Plt Count 199 MPV 8.3 Neut % (Auto) 93.7 H Lymph % (Auto) 3.6 L [place] % (Auto) 2.7 Eos % (Auto) 0.0 Baso % (Auto) 0.0 Neut # (Auto) 9.9 H Lymph # (Auto) 0.4 L [place] # (Auto) 0.3 Eos # (Auto) 0.0 Baso # (Auto) 0.0 WBC Differential . Differential Comment Auto diff final Sodium 135 L Potassium 4.3 Chloride 103 Carbon Dioxide 27.8 Anion Gap 4 L BUN 48 H Creatinine 1.80 H Estimated GFR 36 L Random Glucose 176 H Lactic Acid Calcium 8.2 L Magnesium 1.9 Total Bilirubin 0.3 AST 26 ALT 31 Alkaline Phosphatase 116 Troponin I 0.02 C-Reactive Protein Total Protein 5.6 L Albumin 1.8 L Vitamin B12 Urine Color Yellow Urine Clarity Hazy H Urine pH 5.0 Ur Specific [place] 1.014 Urine Protein 100 H Urine Glucose (UA) 50 Urine Ketones Negative Urine Occult Blood Negative Urine Nitrate Negative Urine Bilirubin Negative Urine Urobilinogen Less than 2 Ur Leukocyte Esterase Large H Urine RBC 1 Urine WBC 99 H Amorphous Sediment Few H Urine Bacteria Few H Hyaline Casts 1 Urine Mucus Few H Micro UA Comment Culture indicated Ur Microscopic Review Not Reportable Urine Culture Comments Culture indicated 01/14/18 01/14/18 01/14/18 02:30 02:30 02:30 WBC 9.1 RBC 3.88 L Hgb 10.1 L Hct 32.3 L MCV 83.3 MCH 26.0 L MCHC 31.3 L RDW 18.6 H Plt Count 207 MPV 8.1 Neut % (Auto) 92.9 H Lymph % (Auto) 4.8 L [place] % (Auto) 2.2 Eos % (Auto) 0.0 Baso % (Auto) 0.1 Neut # (Auto) 8.5 H Lymph # (Auto) 0.4 L [place] # (Auto) 0.2 Eos # (Auto) 0.0 Baso # (Auto) 0.0 WBC Differential . Differential Comment Auto diff final Sodium 142 Potassium 4.1 Chloride 105 Carbon Dioxide 28.4 Anion Gap 9 BUN 45 H Creatinine 1.64 H Estimated GFR 41 L Random Glucose 102 Lactic Acid Calcium 8.3 L Magnesium Total Bilirubin AST ALT Alkaline Phosphatase Troponin I C-Reactive Protein 17.20 H Total Protein Albumin Vitamin B12 1676 H Urine Color Urine Clarity Urine pH Ur Specific [place] Urine Protein Urine Glucose (UA) Urine Ketones Urine Occult Blood Urine Nitrate Urine Bilirubin Urine Urobilinogen Ur Leukocyte Esterase Urine RBC Urine WBC Amorphous Sediment Urine Bacteria Hyaline Casts Urine Mucus Micro UA Comment Ur Microscopic Review Urine Culture Comments 01/14/18 10:22 WBC RBC Hgb Hct MCV MCH MCHC RDW Plt Count MPV Neut % (Auto) Lymph % (Auto) [place] % (Auto) Eos % (Auto) Baso % (Auto) Neut # (Auto) Lymph # (Auto) [place] # (Auto) Eos # (Auto) Baso # (Auto) WBC Differential Differential Comment Sodium Potassium Chloride Carbon Dioxide Anion Gap BUN Creatinine Estimated GFR Random Glucose Lactic Acid 0.6 Calcium Magnesium Total Bilirubin AST ALT Alkaline Phosphatase Troponin I C-Reactive Protein Total Protein Albumin Vitamin B12 Urine Color Urine Clarity Urine pH Ur Specific [place] Urine Protein Urine Glucose (UA) Urine Ketones Urine Occult Blood Urine Nitrate Urine Bilirubin Urine Urobilinogen Ur Leukocyte Esterase Urine RBC Urine WBC Amorphous Sediment Urine Bacteria Hyaline Casts Urine Mucus Micro UA Comment Ur Microscopic Review Urine Culture Comments - Imaging Impressions Abdomen/Pelvis CT 01/13/18 20:43 CONCLUSION: 1. Marked prostate enlargement. 2. Air-filled distention of sigmoid colon. 3. Cardiomegaly. Small bilateral pleural effusions. 4. Diffuse atherosclerotic disease and arterial calcification. 5. Old insufficiency type fractures of the left side of the sacrum and left- sided pubic rami. Chest X-Ray 01/13/18 20:43 CONCLUSION: Clear lungs. Possible compression deformity at the thoracolumbar junction age indeterminate. Cervical Spine MRI 01/14/18 00:00 CONCLUSION: 1. Examination is degraded by motion artifact. 2. Partial visualization of a mass involving the left supraclavicular region measuring 5.[address] scan of the soft tissues of the neck with IV contrast to further assess if the patient can't hold still for that exam. 3. Diffuse degenerative changes as detailed at each level in the above discussion. Head MRI 01/14/18 00:00 CONCLUSION: 1. No acute intracranial abnormality. 2. Encephalomalacia involving the left frontal lobe. Lumbar Spine MRI 01/14/18 00:00 CONCLUSION: 1. Posterior fusion from L1 to L5. This in combination with motion artifact degrades the study. 2. Central canal appears patent throughout its visualized extent. 3. Old T12 compression deformity. Shoulder MRI 01/14/18 00:00 CONCLUSION: 1. Large full-thickness chronic appearing rotator cuff tear as described. 2. Joint effusion which communicates with large periarticular fluid collections characteristic of periarticular ganglions and bursal fluid collections. Internal debris is identified within the fluid collections. 3. Denervation versus disuse atrophy of the periarticular musculature. 4. Glenohumeral subluxation characteristic of chronic rotator cuff tear. 5. Moderate arthropathy of the glenohumeral joint with remodeling, hyaline cartilage thinning and marginal spurring. 6. Advanced acromioclavicular degenerative disease with periarticular ganglion. 7. Torn biceps tendon. 8. A cortical cyst formation seen in the superolateral humeral head. 9. Periarticular loose bodies within the fluid collections. Sign Thoracic Spine MRI 01/14/18 00:00 CONCLUSION: 1. See the MRI of the cervical spine reported separately. 2. Orthopedic hardware at the thoracolumbar junction. 3. Patent central canal throughout. Head CT 01/14/18 00:31 CONCLUSION: 1. No acute intracranial findings. 2. 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 . Assessment and Plan - Plan R shoulder effusion , cw R shoulder septic arhtritis (GPC) UTI, recurrnt recent ly used Bactrim Chronic back pain with h/o L spine fusion and infection Encephalopathy - likley 2/2 sepsis (pt has 2 concommitant infections: UTI and septic R shoulder arthritis L supraclavicular mass - incidental finding vancomycin azactam levaquin NM WBC* scan further recs to follow CT soft tissue neck, with contrast if GFR FAIZAN levin multiple family member at b/s
[2018-01-14 17:11] LABS: INR 1.2 Ratio; Prothrombin Time 12.2 sec (9.8-11.6)
--- NOTE | 2018-01-14 17:30 | P.CONNS ---
History of Present Illness Service: Neurosurgery Primary Care Provider: Everton Velazquez MD History of Present Illness: This is a 82-year-old male with history of arterial hypertension, BPH and GERD presents to the emergency department for evaluation of altered mental status. The patient just returned from [place] where he was treated for 3 consecutive urinary tract infections over the last 45 days. Prior to leaving, the patient received a flu shot, and there was concern for Gujhony Monroy as the patient developed increasing weakness following the immunization. Prior to being immunized, he was able to ambulate with a cane. No falls or head injury. The patient is nonambulatory. He has intermittent hallucinations and altered mental status. His family noticed hand swelling, labored breathing, fever, fatigue/weakness and confusion. During his hospitalization in [place] there was also discussion of possible renal and liver biopsies with concern for amyloidosis or possible multiple myeloma. No fevers/chills. No chest pain or shortness of breath although the patient's family notes labored breathing. No abdominal pain. No nausea/vomiting/diarrhea. No lateralizing signs/symptoms. Review of Systems All other systems reviewed negative except as stated in HPI PMFSH - History History Provided By: Family Member - Medical History Medical History: Medical History (Last Reviewed 01/26/18 @ 10:38 by Alan Piña MD) Atrial fibrillation History of MRSA infection Onset Date: ~01/14/18 BPH (benign prostatic hyperplasia) Depression HTN (hypertension) Hypothyroid PUD (peptic ulcer disease) - Surgical History Surgical History: Surgical History (Last Reviewed 01/26/18 @ 10:38 by Alan Piña MD) H/O neck surgery - Family History Family History: Family History (Last Reviewed 01/26/18 @ 10:38 by Alan Piña MD) Other Family history normal - Tobacco History Second Hand Smoke Exposure: No Tobacco Use In Past 30 Days: No Smoking Status: Former smoker Tobacco Type: Cigars - Alcohol History How Often Do You Have a Drink Containing Alcohol: Never - Substance Use History Substance History: No History of Abuse - Travel History Recent Travel in the [place] Within the Last 8 Weeks: No Recent Travel Out of the Country Within the Last 8 Weeks: Yes - Immunization History Tetanus Immunization: Unsure Hx Influenza Vaccine This Season: Yes Medications and Allergies Active Medications: Active Medications Acetaminophen (Tylenol) 650 mg PO Q4H PRN PRN Reason: Temp > 100.4 Al Hydroxide/Mg Hydroxide (Milk Of Magnesia Liq) 30 ml PO Q12H PRN PRN Reason: Mild Constipation Amlodipine Besylate (Norvasc) 5 mg PO DAILY [facility] Last Admin: 01/14/18 09:04 Dose: 5 mg Bisacodyl (Dulcolax Supp) 10 mg RECTAL DAILY PRN PRN Reason: SEVERE CONSITIPATION Citalopram Hydrobromide (Celexa) 20 mg PO DAILY [facility] Last Admin: 01/14/18 09:04 Dose: 20 mg Levofloxacin/Dextrose (Levaquin 750 Mg Premix Inj) 150 mls @ 100 mls/hr IV.SIG Q48H [facility] Last Infusion: 01/14/18 04:35 Dose: Infused Sodium Chloride (Ns Inj) 1,000 mls @ 70 mls/hr IV.CONT .[id number] [facility] Last Admin: 01/14/18 03:05 Dose: 70 mls/hr Lactulose (Lactulose Liq) 30 ml PO DAILY PRN PRN Reason: SEVERE CONSITIPATION Levothyroxine Sodium (Synthroid) 100 mcg PO DAILY@0600 [facility] Last Admin: 01/14/18 05:00 Dose: 100 mcg Metoprolol Succinate (Toprol Xl) 50 mg PO DAILY [facility] Last Admin: 01/14/18 09:04 Dose: 50 mg Morphine Sulfate (Morphine Inj) 2 mg IV.PUSH Q1H PRN PRN Reason: Acute Pain Ondansetron HCl (Zofran Inj) 4 mg IV.PUSH Q6H PRN PRN Reason: NAUSEA OR VOMITING Pantoprazole Sodium (Protonix) 20 mg PO DAILY [facility] Last Admin: 01/14/18 09:04 Dose: 20 mg Prednisone (Deltasone) 40 mg PO DAILY [facility] Last Admin: 01/14/18 09:04 Dose: 40 mg Senna/Docusate Sodium (Diana-Colace) 1 tab PO BID [facility] Last Admin: 01/14/18 09:04 Dose: 1 tab Sennosides (Senokot) 17.2 mg PO Q12H PRN PRN Reason: Moderate Constipation Sodium Chloride (Ns Flush) 2 ml IV.FLUSH BID [facility] Last Admin: 01/14/18 09:04 Dose: Not Given Sodium Chloride (Ns Flush) 2 ml IV.FLUSH PRN PRN PRN Reason: FLUSH AFTER USING IV ACCESS Tamsulosin HCl (Flomax) 0.4 mg PO DAILY [facility] Last Admin: 01/14/18 09:04 Dose: 0.4 mg Allergies Allergy/AdvReac Type Severity Reaction Status Date / Time amoxicillin Allergy Severe Hives Verified 01/13/18 20:44 Home Medications Medication Instructions Recorded Confirmed Type amlodipine 5 mg PO DAILY 01/13/18 01/13/18 History citalopram 20 mg PO DAILY 01/13/18 01/13/18 History levothyroxine [Synthroid] 100 mcg PO DAILY 01/13/18 01/13/18 History lisinopril 10 mg PO DAILY 01/13/18 01/13/18 History metoprolol succinate 50 mg PO DAILY 01/13/18 01/13/18 History pantoprazole 20 mg PO DAILY 01/13/18 01/13/18 History prednisone 40 mg PO DAILY 01/13/18 01/13/18 History tamsulosin [Flomax] 0.4 mg PO DAILY 01/13/18 01/13/18 History Exam Vital signs: Vital Signs 01/13/18 20:36 01/13/18 21:02 01/13/18 22:44 Temperature 99.7 F H Pulse Rate 89 90 98 H Respiratory Rate 22 18 Blood Pressure 153/78 H 143/79 H Pulse Oximetry 98 98 96 01/13/18 23:15 01/14/18 03:00 01/14/18 08:00 Temperature 97.7 F 99.6 F Pulse Rate 84 85 95 H Respiratory Rate 20 18 18 Blood Pressure 152/67 H 152/72 H 154/76 H Pulse Oximetry 97 95 95 Intake & Output 01/13/18 01/14/18 01/14/18 18:59 06:59 18:59 Intake Total 1350 / 1350 Output Total 600 / 600 Balance 750 / 750 Weight 70.4 kg Intake: IV 1250 / 1250 Levaquin 750 mg Premix Inj 150 150 / 150 ML @ 100 mls/hr IV.SIG Q48H [facility] Rx#:[id number] NS Inj 500 ML @ 1000 mls/hr IV. 1000 / 1000 SIG BOLUS [facility] Rx#:[id number] Rocephin Inj 1,000 MG In NS Inj 100 / 100 100 ML @ 200 mls/hr IV.SIG ONCE ONE Rx#:[id number] Oral 100 / 100 Output: Urine 600 / 600 Other: # Voids 3 Date of Last Bowel Movement 01/13/18 01/13/18 # Bowel Movements 1 Weight On Admission 68.039 kg Narrative: The patient is alert, awake. Comfortable, in no acute distress. mildly dysphonic speech He has a firm mass on the left side at the base of his neck, rubery consistency , mobile Cranial nerve examination: pupils to be equal, round and reactive to light. Extra-ocular movements are intact. Facial motor and sensory function are normal and symmetrical. Gross hearing appears intact. Sternocleidomastoid and trapezius muscles are symmetrical. Other cranial nerves are intact. Neck is soft and supple with a good range of motion without pain. Muscle strength is decreased in all muscle groups of both upper and lower extremities. Difficulty with full arm abduction above the shoulder due to shoulder arthritis/bursitis. Strenght 3/5 proximal and 4/5 distal muscle groups Sensory examination is intact to light touch and pin prick in both the upper and lower extremities. Deep tendon reflexes are 1-2+symmetrical in both upper and lower extremities. There is a bilateral plantar flexion response. No clonus Cerebellar examination is unremarkable, without deficits. Lungs are clear Heart regular rhythm is regular rate Skin warm and dry Results - Laboratory Findings CBC and BMP: 01/24/18 07:58 01/26/18 06:35 Abnormal lab findings: Abnormal Labs 01/13/18 01/13/18 01/13/18 21:00 21:00 21:20 RBC 3.75 L Hgb 9.8 L Hct 31.3 L MCH 26.2 L MCHC 31.4 L RDW 18.5 H Neut % (Auto) 93.7 H Lymph % (Auto) 3.6 L Neut # (Auto) 9.9 H Lymph # (Auto) 0.4 L PT Sodium 135 L Anion Gap 4 L BUN 48 H Creatinine 1.80 H Estimated GFR 36 L Random Glucose 176 H Calcium 8.2 L C-Reactive Protein Total Protein 5.6 L Albumin 1.8 L Vitamin B12 Urine Clarity Hazy H Urine Protein 100 H Ur Leukocyte Esterase Large H Urine WBC 99 H Amorphous Sediment Few H Urine Bacteria Few H Urine Mucus Few H 01/14/18 01/14/18 01/14/18 02:30 02:30 02:30 RBC 3.88 L Hgb 10.1 L Hct 32.3 L MCH 26.0 L MCHC 31.3 L RDW 18.6 H Neut % (Auto) 92.9 H Lymph % (Auto) 4.8 L Neut # (Auto) 8.5 H Lymph # (Auto) 0.4 L PT Sodium Anion Gap BUN 45 H Creatinine 1.64 H Estimated GFR 41 L Random Glucose Calcium 8.3 L C-Reactive Protein 17.20 H Total Protein Albumin Vitamin B12 1676 H Urine Clarity Urine Protein Ur Leukocyte Esterase Urine WBC Amorphous Sediment Urine Bacteria Urine Mucus 01/14/18 01/14/18 16:35 16:35 RBC Hgb Hct MCH MCHC RDW Neut % (Auto) Lymph % (Auto) Neut # (Auto) Lymph # (Auto) PT 12.2 H Sodium Anion Gap BUN Creatinine Estimated GFR Random Glucose Calcium C-Reactive Protein 16.00 H Total Protein Albumin Vitamin B12 Urine Clarity Urine Protein Ur Leukocyte Esterase Urine WBC Amorphous Sediment Urine Bacteria Urine Mucus Assessment and Plan - Plan 82 year old male 1. MRSA septicemia 2. Right shoulder effusion 3. Urinary tract infection. 4. Rul;e out Guillian barre syndrome 5. Rule out malignancy in his neck I have reviewed the clinical and radiological findings Abdomen/Pelvis CT 01/13/18 20:43 CONCLUSION: 1. Marked prostate enlargement. 2. Air-filled distention of sigmoid colon. 3. Cardiomegaly. Small bilateral pleural effusions. 4. Diffuse atherosclerotic disease and arterial calcification. 5. Old insufficiency type fractures of the left side of the sacrum and left- sided pubic rami. Chest X-Ray 01/13/18 20:43 CONCLUSION: Clear lungs. Possible compression deformity at the thoracolumbar junction age indeterminate. Cervical Spine MRI 01/14/18 00:00 CONCLUSION: 1. Examination is degraded by motion artifact. 2. Partial visualization of a mass involving the left supraclavicular region measuring 5.[address] scan of the soft tissues of the neck with IV contrast to further assess if the patient can't hold still for that exam. 3. Diffuse degenerative changes as detailed at each level in the above discussion. Head MRI 01/14/18 00:00 CONCLUSION: 1. No acute intracranial abnormality. 2. Encephalomalacia involving the left frontal lobe. Lumbar Spine MRI 01/14/18 00:00 CONCLUSION: 1. Posterior fusion from L1 to L5. This in combination with motion artifact degrades the study. 2. Central canal appears patent throughout its visualized extent. 3. Old T12 compression deformity. Shoulder MRI 01/14/18 00:00 CONCLUSION: 1. Large full-thickness chronic appearing rotator cuff tear as described. 2. Joint effusion which communicates with large periarticular fluid collections characteristic of periarticular ganglions and bursal fluid collections. Internal debris is identified within the fluid collections. 3. Denervation versus disuse atrophy of the periarticular musculature. 4. Glenohumeral subluxation characteristic of chronic rotator cuff tear. 5. Moderate arthropathy of the glenohumeral joint with remodeling, hyaline cartilage thinning and marginal spurring. 6. Advanced acromioclavicular degenerative disease with periarticular ganglion. 7. Torn biceps tendon. 8. A cortical cyst formation seen in the superolateral humeral head. 9. Periarticular loose bodies within the fluid collections. Thoracic Spine MRI 01/14/18 00:00 CONCLUSION: 1. See the MRI of the cervical spine reported separately. 2. Orthopedic hardware at the thoracolumbar junction. 3. Patent central canal throughout. Head CT 01/14/18 00:31 CONCLUSION: 1. No acute intracranial findings. 2. 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 . Neuro: neuro checks in a serial fashion. Sepsis. 2D echocardiogram did not show any findings consistent with vegetations. Patient may need JUSTIN. We will follow-up with cardiology further recommendations to rule out endicarditis. Right shoulder effusion, orthopedics aspirated the shoulder which grew approximately 30 cc of purulent fluid. Plan is to have the patient go to the OR today for drainage of that right septic shoulder. Left supraclavicular mass. CT Neck with contrast to rule out malignancy BPH. Continue Flomax. Pulmonary: aggressive pulmonary toilette, nasotracheal suction, and breathing treatments with nebulizers. Daily PT and OT Renal: elevated serum creatinine of 1.64. Likely KEKE. Currently on IV fluids, serum creatinine to be monitored closely, urine output, BUN and creatinine Endocrine: Monitor serial Acu checks and SSI as needed in detail ID IV angtibiotics for sepsis vancomycin, aztreonam, Levaquin. We will follow- up repeat blood cultures. ID consultation Protonix for stress ulcer prophylaxis Randolph hose and SCD's for DVT prophylaxis Further recommendations will be provided depending on the patient's clinical evaluation and follow up studies.
[2018-01-14 17:39] LABS: Free T4 (Free Thyroxine) 1.11 ng/dL (0.76-1.46); Thyroid Stimulating Hormone 2.27 uIU/mL (0.358-3.740)
--- NOTE | 2018-01-14 18:19 | P.CONNEU ---
History of Present Illness Service: Neurology Primary Care Provider: Everton Velazquez MD Chief Complaint: weakness History of Present Illness: 82 y/o m admitted for weakness. He has been progressively getting weaker over the past couple months. In fact it began a couple days after he received a flu shot in [place]. Prior to that he was ambulatory could do all his ADLs independently. He also has been getting treated for recurrent UTIs. And is found to have a UTI during this hospitalization. Patient's history taken via family members who translated. He denies any tingling or paresthesias in his legs. seen by ID and NSX. Review of Systems All other systems reviewed negative except as stated in HPI [facility] - History History Provided By: Family Member - Medical History Medical History: Medical History (Last Reviewed 01/14/18 @ 07:55 by Ngozi Goddard) Atrial fibrillation BPH (benign prostatic hyperplasia) Depression HTN (hypertension) Hypothyroid PUD (peptic ulcer disease) - Surgical History Surgical History: Surgical History (Last Reviewed 01/14/18 @ 07:55 by Ngozi Goddard) H/O neck surgery - Family History Family History: Family History (Last Updated 01/14/18 @ 01:36 by Lianet Villegas MD) Other Family history normal - Tobacco History Second Hand Smoke Exposure: No Tobacco Use In Past 30 Days: No Smoking Status: Former smoker Tobacco Type: Cigars - Alcohol History How Often Do You Have a Drink Containing Alcohol: Never - Substance Use History Substance History: No History of Abuse - Travel History Recent Travel in the [place] Within the Last 8 Weeks: No Recent Travel Out of the Country Within the Last 8 Weeks: Yes - Immunization History Tetanus Immunization: Unsure Hx Influenza Vaccine This Season: Yes Medications and Allergies Active Medications: Active Medications Acetaminophen (Tylenol) 650 mg PO Q4H PRN PRN Reason: Temp > 100.4 Al Hydroxide/Mg Hydroxide (Milk Of Magnesia Liq) 30 ml PO Q12H PRN PRN Reason: Mild Constipation Amlodipine Besylate (Norvasc) 5 mg PO DAILY [facility] Last Admin: 01/14/18 09:04 Dose: 5 mg Bisacodyl (Dulcolax Supp) 10 mg RECTAL DAILY PRN PRN Reason: SEVERE CONSITIPATION Citalopram Hydrobromide (Celexa) 20 mg PO DAILY [facility] Last Admin: 01/14/18 09:04 Dose: 20 mg Levofloxacin/Dextrose (Levaquin 750 Mg Premix Inj) 150 mls @ 100 mls/hr IV.SIG Q48H [facility] Last Infusion: 01/14/18 04:35 Dose: Infused Sodium Chloride (Ns Inj) 1,000 mls @ 70 mls/hr IV.CONT .[id number] [facility] Last Admin: 01/14/18 18:03 Dose: Not Given Lactulose (Lactulose Liq) 30 ml PO DAILY PRN PRN Reason: SEVERE CONSITIPATION Levothyroxine Sodium (Synthroid) 100 mcg PO DAILY@0600 [facility] Last Admin: 01/14/18 05:00 Dose: 100 mcg Metoprolol Succinate (Toprol Xl) 50 mg PO DAILY [facility] Last Admin: 01/14/18 09:04 Dose: 50 mg Morphine Sulfate (Morphine Inj) 2 mg IV.PUSH Q1H PRN PRN Reason: Acute Pain Ondansetron HCl (Zofran Inj) 4 mg IV.PUSH Q6H PRN PRN Reason: NAUSEA OR VOMITING Pantoprazole Sodium (Protonix) 20 mg PO DAILY [facility] Last Admin: 01/14/18 09:04 Dose: 20 mg Prednisone (Deltasone) 40 mg PO DAILY [facility] Last Admin: 01/14/18 09:04 Dose: 40 mg Senna/Docusate Sodium (Diana-Colace) 1 tab PO BID [facility] Last Admin: 01/14/18 09:04 Dose: 1 tab Sennosides (Senokot) 17.2 mg PO Q12H PRN PRN Reason: Moderate Constipation Sodium Chloride (Ns Flush) 2 ml IV.FLUSH BID [facility] Last Admin: 01/14/18 09:04 Dose: Not Given Sodium Chloride (Ns Flush) 2 ml IV.FLUSH PRN PRN PRN Reason: FLUSH AFTER USING IV ACCESS Tamsulosin HCl (Flomax) 0.4 mg PO DAILY [facility] Last Admin: 01/14/18 09:04 Dose: 0.4 mg Allergies Allergy/AdvReac Type Severity Reaction Status Date / Time amoxicillin Allergy Severe Hives Verified 01/13/18 20:44 Home Medications Medication Instructions Recorded Confirmed Type amlodipine 5 mg PO DAILY 01/13/18 01/13/18 History citalopram 20 mg PO DAILY 01/13/18 01/13/18 History levothyroxine [Synthroid] 100 mcg PO DAILY 01/13/18 01/13/18 History lisinopril 10 mg PO DAILY 01/13/18 01/13/18 History metoprolol succinate 50 mg PO DAILY 01/13/18 01/13/18 History pantoprazole 20 mg PO DAILY 01/13/18 01/13/18 History prednisone 40 mg PO DAILY 01/13/18 01/13/18 History tamsulosin [Flomax] 0.4 mg PO DAILY 01/13/18 01/13/18 History Exam Vital signs: Vital Signs 01/13/18 20:36 01/13/18 21:02 01/13/18 22:44 Temperature 99.7 F H Pulse Rate 89 90 98 H Respiratory Rate 22 18 Blood Pressure 153/78 H 143/79 H Pulse Oximetry 98 98 96 01/13/18 23:15 01/14/18 03:00 01/14/18 08:00 Temperature 97.7 F 99.6 F Pulse Rate 84 85 95 H Respiratory Rate 18 Blood Pressure 152/67 H 152/72 H 154/76 H Pulse Oximetry 97 95 95 Intake & Output 01/13/18 01/14/18 01/14/18 18:59 06:59 18:59 Intake Total 1350 / 1350 Output Total 600 / 600 400 / 400 Balance 750 / 750 -400 / -400 Weight 70.4 kg Intake: IV 1250 / 1250 Levaquin 750 mg Premix Inj 150 150 / 150 ML @ 100 mls/hr IV.SIG Q48H [facility] Rx#:[id number] NS Inj 500 ML @ 1000 mls/hr IV. 1000 / 1000 SIG BOLUS [facility] Rx#:[id number] Rocephin Inj 1,000 MG In NS Inj 100 / 100 100 ML @ 200 mls/hr IV.SIG ONCE ONE Rx#:[id number] Oral 100 / 100 Output: Urine 600 / 600 400 / 400 Other: # Voids 3 Date of Last Bowel Movement 01/13/18 01/13/18 # Bowel Movements 1 0 Weight On Admission 68.039 kg Narrative: GENERAL: in NAD, SKIN: Warm and dry. HEAD: Atraumatic. Normocephalic. EYES: Pupils equal and round. No scleral icterus. ENT: No nasal bleeding or discharge. NECK: Trachea midline. No JVD. CARDIOVASCULAR: Regular rate and rhythm. RESPIRATORY: No accessory muscle use. GASTROINTESTINAL: Abdomen soft, non-tender, nondistended. MUSCULOSKELETAL: Extremities without clubbing, cyanosis, or edema. No obvious deformities. NEUROLOGICAL: Awake, follows motor request mildly dysphonic speech able to converse and his mother tongue, extraocular movements intact no facial asymmetry tongue midline. Difficulty with full arm abduction above the shoulder which apparently has been there for several weeks now due to shoulder arthritis/bursitis. He is able raise both lower extremity to gravity does display mild atrophy in the calves. Plantar flexion dorsiflexion of both feet strength 4+ out of 5. Reflexes were 1-2+ plantarflex response no clonus elicited. Proprioception pinprick were normal. Gait not assessed secondary to fall risk he was noted to have occasional tremor, twitching of his right foot PSYCHIATRIC: Calm - Constitutional no acute distress - Routine HEENT Exam Head: Present: normocephalic Results - Labs CBC & Chem 7: 01/14/18 02:30 01/14/18 02:30 Labs: Laboratory Results - last 24 hr 01/13/18 01/13/18 01/13/18 21:00 21:00 21:20 WBC 10.5 RBC 3.75 L Hgb 9.8 L Hct 31.3 L MCV 83.6 MCH 26.2 L MCHC 31.4 L RDW 18.5 H Plt Count 199 MPV 8.3 Neut % (Auto) 93.7 H Lymph % (Auto) 3.6 L [place] % (Auto) 2.7 Eos % (Auto) 0.0 Baso % (Auto) 0.0 Neut # (Auto) 9.9 H Lymph # (Auto) 0.4 L [place] # (Auto) 0.3 Eos # (Auto) 0.0 Baso # (Auto) 0.0 WBC Differential . Differential Comment Auto diff final PT INR Sodium 135 L Potassium 4.3 Chloride 103 Carbon Dioxide 27.8 Anion Gap 4 L BUN 48 H Creatinine 1.80 H Estimated GFR 36 L Random Glucose 176 H Lactic Acid Calcium 8.2 L Magnesium 1.9 Total Bilirubin 0.3 AST 26 ALT 31 Alkaline Phosphatase 116 Total Creatine Kinase Troponin I 0.02 C-Reactive Protein B-Natriuretic Peptide Total Protein 5.6 L Albumin 1.8 L Vitamin B12 TSH Free T4 Urine Color Yellow Urine Clarity Hazy H Urine pH 5.0 Ur Specific [place] 1.014 Urine Protein 100 H Urine Glucose (UA) 50 Urine Ketones Negative Urine Occult Blood Negative Urine Nitrate Negative Urine Bilirubin Negative Urine Urobilinogen Less than 2 Ur Leukocyte Esterase Large H Urine RBC 1 Urine WBC 99 H Amorphous Sediment Few H Urine Bacteria Few H Hyaline Casts 1 Urine Mucus Few H Micro UA Comment Culture indicated Ur Microscopic Review Not Reportable Urine Culture Comments Culture indicated 01/14/18 01/14/18 01/14/18 02:30 02:30 02:30 WBC 9.1 RBC 3.88 L Hgb 10.1 L Hct 32.3 L MCV 83.3 MCH 26.0 L MCHC 31.3 L RDW 18.6 H Plt Count 207 MPV 8.1 Neut % (Auto) 92.9 H Lymph % (Auto) 4.8 L Swift % (Auto) 2.2 Eos % (Auto) 0.0 Baso % (Auto) 0.1 Neut # (Auto) 8.5 H Lymph # (Auto) 0.4 L Swift # (Auto) 0.2 Eos # (Auto) 0.0 Baso # (Auto) 0.0 WBC Differential . Differential Comment Auto diff final PT INR Sodium 142 Potassium 4.1 Chloride 105 Carbon Dioxide 28.4 Anion Gap 9 BUN 45 H Creatinine 1.64 H Estimated GFR 41 L Random Glucose 102 Lactic Acid Calcium 8.3 L Magnesium Total Bilirubin AST ALT Alkaline Phosphatase Total Creatine Kinase Troponin I C-Reactive Protein 17.20 H B-Natriuretic Peptide Total Protein Albumin Vitamin B12 1676 H TSH Free T4 Urine Color Urine Clarity Urine pH Ur Specific [place] Urine Protein Urine Glucose (UA) Urine Ketones Urine Occult Blood Urine Nitrate Urine Bilirubin Urine Urobilinogen Ur Leukocyte Esterase Urine RBC Urine WBC Amorphous Sediment Urine Bacteria Hyaline Casts Urine Mucus Micro UA Comment Ur Microscopic Review Urine Culture Comments 01/14/18 01/14/18 01/14/18 10:22 16:35 16:35 WBC RBC Hgb Hct MCV MCH MCHC RDW Plt Count MPV Neut % (Auto) Lymph % (Auto) Swift % (Auto) Eos % (Auto) Baso % (Auto) Neut # (Auto) Lymph # (Auto) Swift # (Auto) Eos # (Auto) Baso # (Auto) WBC Differential Differential Comment PT INR Sodium Potassium Chloride Carbon Dioxide Anion Gap BUN Creatinine Estimated GFR Random Glucose Lactic Acid 0.6 Calcium Magnesium Total Bilirubin AST ALT Alkaline Phosphatase Total Creatine Kinase 28 L Troponin I C-Reactive Protein 16.00 H B-Natriuretic Peptide 789 H Total Protein Albumin Vitamin B12 1601 H TSH 2.270 Free T4 1.11 Urine Color Urine Clarity Urine pH Ur Specific [place] Urine Protein Urine Glucose (UA) Urine Ketones Urine Occult Blood Urine Nitrate Urine Bilirubin Urine Urobilinogen Ur Leukocyte Esterase Urine RBC Urine WBC Amorphous Sediment Urine Bacteria Hyaline Casts Urine Mucus Micro UA Comment Ur Microscopic Review Urine Culture Comments 01/14/18 16:35 WBC RBC Hgb Hct MCV MCH MCHC RDW Plt Count MPV Neut % (Auto) Lymph % (Auto) Swift % (Auto) Eos % (Auto) Baso % (Auto) Neut # (Auto) Lymph # (Auto) Swift # (Auto) Eos # (Auto) Baso # (Auto) WBC Differential Differential Comment PT 12.2 H INR 1.2 Sodium Potassium Chloride Carbon Dioxide Anion Gap BUN Creatinine Estimated GFR Random Glucose Lactic Acid Calcium Magnesium Total Bilirubin AST ALT Alkaline Phosphatase Total Creatine Kinase Troponin I C-Reactive Protein B-Natriuretic Peptide Total Protein Albumin Vitamin B12 TSH Free T4 Urine Color Urine Clarity Urine pH Ur Specific [place] Urine Protein Urine Glucose (UA) Urine Ketones Urine Occult Blood Urine Nitrate Urine Bilirubin Urine Urobilinogen Ur Leukocyte Esterase Urine RBC Urine WBC Amorphous Sediment Urine Bacteria Hyaline Casts Urine Mucus Micro UA Comment Ur Microscopic Review Urine Culture Comments - Imaging Impressions Abdomen/Pelvis CT 01/13/18 20:43 CONCLUSION: 1. Marked prostate enlargement. 2. Air-filled distention of sigmoid colon. 3. Cardiomegaly. Small bilateral pleural effusions. 4. Diffuse atherosclerotic disease and arterial calcification. 5. Old insufficiency type fractures of the left side of the sacrum and left- sided pubic rami. Chest X-Ray 01/13/18 20:43 CONCLUSION: Clear lungs. Possible compression deformity at the thoracolumbar junction age indeterminate. Cervical Spine MRI 01/14/18 00:00 CONCLUSION: 1. Examination is degraded by motion artifact. 2. Partial visualization of a mass involving the left supraclavicular region measuring 5.[address] scan of the soft tissues of the neck with IV contrast to further assess if the patient can't hold still for that exam. 3. Diffuse degenerative changes as detailed at each level in the above discussion. Head MRI 01/14/18 00:00 CONCLUSION: 1. No acute intracranial abnormality. 2. Encephalomalacia involving the left frontal lobe. Lumbar Spine MRI 01/14/18 00:00 CONCLUSION: 1. Posterior fusion from L1 to L5. This in combination with motion artifact degrades the study. 2. Central canal appears patent throughout its visualized extent. 3. Old T12 compression deformity. Shoulder MRI 01/14/18 00:00 CONCLUSION: 1. Large full-thickness chronic appearing rotator cuff tear as described. 2. Joint effusion which communicates with large periarticular fluid collections characteristic of periarticular ganglions and bursal fluid collections. Internal debris is identified within the fluid collections. 3. Denervation versus disuse atrophy of the periarticular musculature. 4. Glenohumeral subluxation characteristic of chronic rotator cuff tear. 5. Moderate arthropathy of the glenohumeral joint with remodeling, hyaline cartilage thinning and marginal spurring. 6. Advanced acromioclavicular degenerative disease with periarticular ganglion. 7. Torn biceps tendon. 8. A cortical cyst formation seen in the superolateral humeral head. 9. Periarticular loose bodies within the fluid collections. Sign Thoracic Spine MRI 01/14/18 00:00 CONCLUSION: 1. See the MRI of the cervical spine reported separately. 2. Orthopedic hardware at the thoracolumbar junction. 3. Patent central canal throughout. Head CT 01/14/18 00:31 CONCLUSION: 1. No acute intracranial findings. 2. 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 . Review/Management - Diagnosis (1) Weakness Code(s): R53.1 - Weakness Status: Acute Current Visit: Yes (2) Acute UTI Code(s): N39.0 - Urinary tract infection, site not specified Status: Acute Current Visit: Yes (3) Atrial fibrillation Code(s): I48.91 - Unspecified atrial fibrillation Status: Acute Current Visit: Yes (4) Encephalomalacia on imaging study Code(s): G93.89 - Other specified disorders of brain Status: Acute Current Visit: Yes (5) Renal insufficiency Code(s): N28.9 - Disorder of kidney and ureter, unspecified Status: Acute Current Visit: Yes - Review/Management Plan: Subacute progressive weakness apparently occurring couple days after flu vaccine Has had recurrent UTIs complicating matters. 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 However he has good reflexes and normal sensory exam. Other possibilities would include a myopathy, metabolic versus disuse versus inflammatory vs steroid-induced myopathy. Elevated ESR and CRP. ? cause. 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 IVIG would be precarious due to his renal insufficiency We will check an [place] Follow recommendations of infectious disease ?supraclavicular mass may need emg/ncv will be getting shoulder joint drained. f/u results and f/u blodd cx's has been on steroids which would predispose him to infection We discussed the pros and cons of IVIG and plasma exchange treatment with the family depending on results of CSF studies and results of the rest of his studies (3) Atrial fibrillation Qualifiers: Atrial fibrillation type: unspecified Qualified Code(s): I48.91 - Unspecified atrial fibrillation
--- NOTE | 2018-01-14 19:24 | P.PNOP ---
Subjective Interval history: Patient is resting in bed with some confusion and c/o pain with limited mobility to the right shoulder. Pain is moderate and worsened with movement. Patient has had fevers. Patient denies chills. Physical Exam Vital signs: Vital Signs 01/13/18 20:36 01/13/18 21:02 01/13/18 22:44 Temperature 99.7 F H Pulse Rate 89 90 98 H Respiratory Rate 22 18 Blood Pressure 153/78 H 143/79 H Pulse Oximetry 98 98 96 01/13/18 23:15 01/14/18 03:00 01/14/18 08:00 Temperature 97.7 F 99.6 F Pulse Rate 84 85 95 H Respiratory Rate 20 18 18 Blood Pressure 152/67 H 152/72 H 154/76 H Pulse Oximetry 97 95 95 01/14/18 16:10 Temperature 97.4 F L Pulse Rate 86 Respiratory Rate 20 Blood Pressure 135/66 Pulse Oximetry 92 L Intake & Output 01/14/18 01/14/18 01/15/18 06:59 18:59 06:59 Intake Total 1350 / 1350 Output Total 600 / 600 400 / 400 Balance 750 / 750 -400 / -400 Weight 70.4 kg Intake: IV 1250 / 1250 Levaquin 750 mg Premix Inj 150 150 / 150 ML @ 100 mls/hr IV.SIG Q48H [facility] Rx#:[id number] NS Inj 500 ML @ 1000 mls/hr IV. 1000 / 1000 SIG BOLUS [facility] Rx#:[id number] Rocephin Inj 1,000 MG In NS Inj 100 / 100 100 ML @ 200 mls/hr IV.SIG ONCE ONE Rx#:[id number] Oral 100 / 100 Output: Urine 600 / 600 400 / 400 Other: # Voids 3 Date of Last Bowel Movement 01/13/18 01/13/18 # Bowel Movements 1 0 Weight On Admission 68.039 kg Narrative: Gen.: No acute distress. Head: Normocephalic. Atraumatic. EENT: Pupils equal round and reactive to light. Nose without drainage. Airway intact. Throat without injection. Cardiovascular: 2+ pedal and radial pulses Respiratory: Symmetric chest wall rise and nonlabored breathing. Abdomen: Soft, nontender, nondistended. Musculoskeletal: No gross deformities. No edema. Right shoulder large effusion. Right shoulder tender to palpation. Limited A/PROM. Skin: No obvious rashes or erythema. Skin is warm and dry Neuro: Sensory and motor grossly intact. Cranial nerves II through XII grossly intact. Results - Labs CBC & Chem 7: 01/14/18 02:30 01/14/18 02:30 Laboratory Results - last 24 hr 01/13/18 01/13/18 01/13/18 21:00 21:00 21:20 WBC 10.5 RBC 3.75 L Hgb 9.8 L Hct 31.3 L MCV 83.6 MCH 26.2 L MCHC 31.4 L RDW 18.5 H Plt Count 199 MPV 8.3 Neut % (Auto) 93.7 H Lymph % (Auto) 3.6 L [place] % (Auto) 2.7 Eos % (Auto) 0.0 Baso % (Auto) 0.0 Neut # (Auto) 9.9 H Lymph # (Auto) 0.4 L [place] # (Auto) 0.3 Eos # (Auto) 0.0 Baso # (Auto) 0.0 WBC Differential . Differential Comment Auto diff final ESR PT INR Sodium 135 L Potassium 4.3 Chloride 103 Carbon Dioxide 27.8 Anion Gap 4 L BUN 48 H Creatinine 1.80 H Estimated GFR 36 L Random Glucose 176 H Lactic Acid Calcium 8.2 L Magnesium 1.9 Total Bilirubin 0.3 AST 26 ALT 31 Alkaline Phosphatase 116 Total Creatine Kinase Troponin I 0.02 C-Reactive Protein B-Natriuretic Peptide Total Protein 5.6 L Albumin 1.8 L Vitamin B12 TSH Free T4 Urine Color Yellow Urine Clarity Hazy H Urine pH 5.0 Ur Specific [place] 1.014 Urine Protein 100 H Urine Glucose (UA) 50 Urine Ketones Negative Urine Occult Blood Negative Urine Nitrate Negative Urine Bilirubin Negative Urine Urobilinogen Less than 2 Ur Leukocyte Esterase Large H Urine RBC 1 Urine WBC 99 H Amorphous Sediment Few H Urine Bacteria Few H Hyaline Casts 1 Urine Mucus Few H Micro UA Comment Culture indicated Ur Microscopic Review Not Reportable Urine Culture Comments Culture indicated 01/14/18 01/14/18 01/14/18 02:30 02:30 02:30 WBC 9.1 RBC 3.88 L Hgb 10.1 L Hct 32.3 L MCV 83.3 MCH 26.0 L MCHC 31.3 L RDW 18.6 H Plt Count 207 MPV 8.1 Neut % (Auto) 92.9 H Lymph % (Auto) 4.8 L [place] % (Auto) 2.2 Eos % (Auto) 0.0 Baso % (Auto) 0.1 Neut # (Auto) 8.5 H Lymph # (Auto) 0.4 L [place] # (Auto) 0.2 Eos # (Auto) 0.0 Baso # (Auto) 0.0 WBC Differential . Differential Comment Auto diff final ESR PT INR Sodium 142 Potassium 4.1 Chloride 105 Carbon Dioxide 28.4 Anion Gap 9 BUN 45 H Creatinine 1.64 H Estimated GFR 41 L Random Glucose 102 Lactic Acid Calcium 8.3 L Magnesium Total Bilirubin AST ALT Alkaline Phosphatase Total Creatine Kinase Troponin I C-Reactive Protein 17.20 H B-Natriuretic Peptide Total Protein Albumin Vitamin B12 1676 H TSH Free T4 Urine Color Urine Clarity Urine pH Ur Specific [place] Urine Protein Urine Glucose (UA) Urine Ketones Urine Occult Blood Urine Nitrate Urine Bilirubin Urine Urobilinogen Ur Leukocyte Esterase Urine RBC Urine WBC Amorphous Sediment Urine Bacteria Hyaline Casts Urine Mucus Micro UA Comment Ur Microscopic Review Urine Culture Comments 01/14/18 01/14/18 01/14/18 10:22 16:35 16:35 WBC RBC Hgb Hct MCV MCH MCHC RDW Plt Count MPV Neut % (Auto) Lymph % (Auto) [place] % (Auto) Eos % (Auto) Baso % (Auto) Neut # (Auto) Lymph # (Auto) [place] # (Auto) Eos # (Auto) Baso # (Auto) WBC Differential Differential Comment ESR PT INR Sodium Potassium Chloride Carbon Dioxide Anion Gap BUN Creatinine Estimated GFR Random Glucose Lactic Acid 0.6 Calcium Magnesium Total Bilirubin AST ALT Alkaline Phosphatase Total Creatine Kinase 28 L Troponin I C-Reactive Protein 16.00 H B-Natriuretic Peptide 789 H Total Protein Albumin Vitamin B12 1601 H TSH 2.270 Free T4 1.11 Urine Color Urine Clarity Urine pH Ur Specific [place] Urine Protein Urine Glucose (UA) Urine Ketones Urine Occult Blood Urine Nitrate Urine Bilirubin Urine Urobilinogen Ur Leukocyte Esterase Urine RBC Urine WBC Amorphous Sediment Urine Bacteria Hyaline Casts Urine Mucus Micro UA Comment Ur Microscopic Review Urine Culture Comments 01/14/18 01/14/18 16:35 16:35 WBC RBC Hgb Hct MCV MCH MCHC RDW Plt Count MPV Neut % (Auto) Lymph % (Auto) [place] % (Auto) Eos % (Auto) Baso % (Auto) Neut # (Auto) Lymph # (Auto) [place] # (Auto) Eos # (Auto) Baso # (Auto) WBC Differential Differential Comment ESR 71 H PT 12.2 H INR 1.2 Sodium Potassium Chloride Carbon Dioxide Anion Gap BUN Creatinine Estimated GFR Random Glucose Lactic Acid Calcium Magnesium Total Bilirubin AST ALT Alkaline Phosphatase Total Creatine Kinase Troponin I C-Reactive Protein B-Natriuretic Peptide Total Protein Albumin Vitamin B12 TSH Free T4 Urine Color Urine Clarity Urine pH Ur Specific [place] Urine Protein Urine Glucose (UA) Urine Ketones Urine Occult Blood Urine Nitrate Urine Bilirubin Urine Urobilinogen Ur Leukocyte Esterase Urine RBC Urine WBC Amorphous Sediment Urine Bacteria Hyaline Casts Urine Mucus Micro UA Comment Ur Microscopic Review Urine Culture Comments Microbiology 01/13/18 21:20 Clean Catch Urine Urine Culture - Preliminary Immature growth - reincubate - Imaging Impressions Abdomen/Pelvis CT 01/13/18 20:43 CONCLUSION: 1. Marked prostate enlargement. 2. Air-filled distention of sigmoid colon. 3. Cardiomegaly. Small bilateral pleural effusions. 4. Diffuse atherosclerotic disease and arterial calcification. 5. Old insufficiency type fractures of the left side of the sacrum and left- sided pubic rami. Chest X-Ray 01/13/18 20:43 CONCLUSION: Clear lungs. Possible compression deformity at the thoracolumbar junction age indeterminate. Cervical Spine MRI 01/14/18 00:00 CONCLUSION: 1. Examination is degraded by motion artifact. 2. Partial visualization of a mass involving the left supraclavicular region measuring 5.[address] scan of the soft tissues of the neck with IV contrast to further assess if the patient can't hold still for that exam. 3. Diffuse degenerative changes as detailed at each level in the above discussion. Head MRI 01/14/18 00:00 CONCLUSION: 1. No acute intracranial abnormality. 2. Encephalomalacia involving the left frontal lobe. Lumbar Spine MRI 01/14/18 00:00 CONCLUSION: 1. Posterior fusion from L1 to L5. This in combination with motion artifact degrades the study. 2. Central canal appears patent throughout its visualized extent. 3. Old T12 compression deformity. Shoulder MRI 01/14/18 00:00 CONCLUSION: 1. Large full-thickness chronic appearing rotator cuff tear as described. 2. Joint effusion which communicates with large periarticular fluid collections characteristic of periarticular ganglions and bursal fluid collections. Internal debris is identified within the fluid collections. 3. Denervation versus disuse atrophy of the periarticular musculature. 4. Glenohumeral subluxation characteristic of chronic rotator cuff tear. 5. Moderate arthropathy of the glenohumeral joint with remodeling, hyaline cartilage thinning and marginal spurring. 6. Advanced acromioclavicular degenerative disease with periarticular ganglion. 7. Torn biceps tendon. 8. A cortical cyst formation seen in the superolateral humeral head. 9. Periarticular loose bodies within the fluid collections. Sign Thoracic Spine MRI 01/14/18 00:00 CONCLUSION: 1. See the MRI of the cervical spine reported separately. 2. Orthopedic hardware at the thoracolumbar junction. 3. Patent central canal throughout. Head CT 01/14/18 00:31 CONCLUSION: 1. No acute intracranial findings. 2. 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 . - Procedures Right shoulder consent for aspiration obtained. Time out performed. Right shoulder prepped sterilely with alcohol and betadine. Sterile gloves doned. Right shoulder aspirated and sent for gram stain, culture, crystals, and cell count. 30 cc of purulent drainage aspirated and sent to lab. sterile dressing applied. Patient tolerated procedure well. Assessment and Plan - Assessment and Plan Right shoulder effusion, R/O septic shoulder Right shoulder Large Rotator Cuff tear. 1. Labs collected and sent for Culture, gram stain, cell count, crystals. Will follow results. Suspicious for septic shoulder. 2. Patient may require surgery if results are positive for infection 3. Pain medication PRN 4. Ice to the right shoulder PRN 5. ID to manage ABX if necessary
--- NOTE | 2018-01-14 19:31 | MB ---
cc: Héctor Benson DATE: 01/14/2018 PROVIDER: LUIS Delgado, for Oumar Bernardo MD CHIEF COMPLAINT: Right shoulder pain. HISTORY OF PRESENT ILLNESS: This is an 82-year-old male with a history of hypertension, BPH, GERD, atrial fibrillation, and peptic ulcer disease. The patient presented to the emergency department for complaints of altered mental status. The patient had recently traveled to [facility] where he was diagnosed with urinary tract infections. The patient was being treated for this. The patient's family states that the patient's mentation has gradually worsened over the last week. The patient has had some medical problems over the past several months. It was documented that the patient received a flu shot recently prior to leaving for [facility]. It is unsure as to which shoulder he received the injection in. Initially, there were concerns of Guillain-[place] as the patient developed some increased weakness following his immunization. The patient was able to ambulate initially with a cane and currently is nonambulatory. The patient has had some intermittent hallucinations and altered mental status. The family states he has been complaining of some right shoulder pain and had some increased swelling recently. The patient has had no prior injuries to the right shoulder known to the family. The patient has had fevers and generalized weakness which were reported by the family recently. Currently, the patient does complain of pain with movement of the right shoulder of a moderate degree. Review of Systems: Negative X 12 except for what is stated in the HPI MEDICAL HISTORY: 1. Atrial fibrillation with management with Eliquis. 2. BPH. 3. Depression. 4. Hypertension. 5. Hypothyroid. 6. Peptic ulcer disease. PAST SURGICAL HISTORY: 1. Lumbar spine fusion. 2. Benign brain tumor removal. FAMILY HISTORY: The patient states his mother from complications with an appendectomy. The patient's father of old age of 98. SOCIAL HISTORY: The patient is a former cigar smoker and drinks alcohol occasionally. ALLERGIES: AMOXICILLIN, WHICH CAUSES SEVERE HIVES. HOME MEDICATIONS: 1. Amlodipine 5 mg by mouth daily. 2. Citalopram 20 mg by mouth daily. 3. Synthroid 100 mcg by mouth daily. 4. Lisinopril 10 mg by mouth daily. 5. Metoprolol succinate 50 mg by mouth daily. 6. Pantoprazole 20 mg by mouth daily. 7. Prednisone 40 mg by mouth daily. 8. Flomax 0.4 mg by mouth daily. PHYSICAL EXAMINATION: VITAL SIGNS: Temperature 97.4, pulse 86, respirations 20, blood pressure 135/66, pulse oximetry 92%. GENERAL: The patient is resting comfortably in bed with some confusion. The patient does answer some questions appropriately. SKIN: Warm and dry HEAD: Atraumatic and normocephalic. EYES: PERRLA. EARS, NOSE, AND MOUTH: Moist mucous membranes with no drainage from the ears or nose. NECK: Supple, and trachea is midline. CARDIOVASCULAR: The patient has 2+ radial and pedal pulses bilaterally. RESPIRATIONS: The patient has symmetric chest wall rise and nonlabored breathing. ABDOMEN: Soft, round, nondistended, and nontender. MUSCULOSKELETAL: The patient has somewhat limited range of motion of the bilateral lower extremities and bilateral upper extremities. The patient has discomfort to the shoulder with passive range of motion of the right and left shoulder with the right being greater than the left. The patient has a large joint effusion and tenderness to palpation about the shoulder. There is no redness or skin breakdown about the right shoulder. NEUROLOGIC: The patient is alert but does have some confusion with questioning. PSYCHOSOCIAL: The patient has a blunted affect. LABORATORY DATA: Labs taken on 01/14/2018 shows white blood cell count of 9.1, hemoglobin 10.1, hematocrit 32.3, platelets 207. Sedimentation rate is 71. INR is 1.2. Creatinine is 1.64, glucose is 102, C-reactive protein is 16. Urinalysis shows large white blood cells with large leukocyte esterase and negative nitrites. Culture is indicated. MRI of right shoulder without contrast on 01/14/2018 reads as large full-thickness chronic-appearing rotator cuff tear. Large joint effusion which communicates with a large periarticular fluid collection characteristic of periarticular ganglions and bursal fluid collections. Internal debris is identified within the fluid collections. Denervation versus disuse atrophy of the periarticular musculature. Glenohumeral subluxation characteristic of chronic rotator cuff tear. Moderate arthropathy of the glenohumeral joint with remodeling, hyaline cartilage thinning, and marginal spurring. Advanced acromioclavicular degenerative disease with periarticular ganglion. Torn biceps tendon. Periarticular loose bodies within the fluid collection. I have reviewed these images and agree with the radiologist's interpretation. MRI of the thoracic spine without contrast on 01/14/2018 reads as orthopedic hardware at the thoracolumbar junction. Patent central canal throughout. MRI of the lumbar spine without contrast on 01/14/2018 reads as posterior fusion from L1 to L5. Artifact and motion does degrade the study. Central canal appears patent throughout its visualized extent. There is an old T12 compression fracture. I did review these images and agree with the radiologist's interpretation. MRI of the cervical spine without contrast on 01/14/2018 reads as examination is degraded by motion artifact. Partial visualization of a mass involving the left supraclavicular region measuring 5.[address] scan of soft tissues of the neck with IV contrast to further assess that the patient cannot hold still for that exam. Diffuse degenerative changes. MRI of the head without contrast on 01/14/2018 reads as no acute intracranial abnormality. Encephalomalacia involving the left frontal lobe. IMPRESSION: 1. Right shoulder large effusion. 2. Right shoulder chronic rotator cuff tear. 3. Right shoulder osteoarthritis. 4. Right shoulder rule out septic joint. MEDICAL DECISION MAKING: This is a complicated situation in that this patient has had some recent travel out of the country to [facility]. The patient has had a progressive deterioration of his mental status with no specific etiology per the patient's family. The patient has had multiple urinary tract infections and shows infection in today's lab work. This could potentially be a source of his confusion and recent fevers. Clinically, the patient has a large joint effusion to the right shoulder. I would like to aspirate this today and send it for Gram stain, culture, white blood cell count, and crystals. Because of his recent weakness, confusion, and fevers I think it is important to r/o a septic right shoulder. The patient does have elevated inflammatory markers, which is concerning. The patient does have a diagnosed rotator cuff tear. I discussed this with the patient and his family today. I do feel that this could be followed as outpatient, and decisions could be made at that time regarding conservative management versus proceeding with surgical management for repair of his rotator cuff. I would not recommend any surgery at this time due to the patient's current medical condition. I did discuss treatment options including cortisone injections and physical therapy which are options for conservative management. We will continue to follow the results of the aspiration. If infection is found within the shoulder, we will have further discussions regarding surgical management. At this time, my current recommendation is to proceed conservatively. I have reviewed the above impression and plan of care with Dr. Bernardo, and he agrees with this documentation. LUIS Delgado/meek , 06:48 PM , 07:10 PM [id number]
--- NOTE | 2018-01-14 19:50 | P.PNOP ---
Physical Exam Vital signs: Vital Signs 01/13/18 20:36 01/13/18 21:02 01/13/18 22:44 Temperature 99.7 F H Pulse Rate 89 90 98 H Respiratory Rate 22 18 Blood Pressure 153/78 H 143/79 H Pulse Oximetry 98 98 96 01/13/18 23:15 01/14/18 03:00 01/14/18 08:00 Temperature 97.7 F 99.6 F Pulse Rate 84 85 95 H Respiratory Rate 20 18 18 Blood Pressure 152/67 H 152/72 H 154/76 H Pulse Oximetry 97 95 95 01/14/18 16:10 Temperature 97.4 F L Pulse Rate 86 Respiratory Rate 20 Blood Pressure 135/66 Pulse Oximetry 92 L Intake & Output 01/14/18 01/14/18 01/15/18 06:59 18:59 06:59 Intake Total 1350 / 1350 0 / 0 Output Total 600 / 600 400 / 400 Balance 750 / 750 -400 / -400 Weight 70.4 kg Intake: IV 1250 / 1250 Levaquin 750 mg Premix Inj 150 150 / 150 ML @ 100 mls/hr IV.SIG Q48H [facility] Rx#:[id number] NS Inj 500 ML @ 1000 mls/hr IV. 1000 / 1000 SIG BOLUS [facility] Rx#:[id number] Rocephin Inj 1,000 MG In NS Inj 100 / 100 100 ML @ 200 mls/hr IV.SIG ONCE ONE Rx#:[id number] Oral 100 / 100 0 / 0 Output: Urine 600 / 600 400 / 400 Other: # Voids 3 4 Date of Last Bowel Movement 01/13/18 01/13/18 # Bowel Movements 1 1 Weight On Admission 68.039 kg Results - Labs CBC & Chem 7: 01/14/18 02:30 01/14/18 02:30 Laboratory Results - last 24 hr 01/13/18 01/13/18 01/13/18 21:00 21:00 21:20 WBC 10.5 RBC 3.75 L Hgb 9.8 L Hct 31.3 L MCV 83.6 MCH 26.2 L MCHC 31.4 L RDW 18.5 H Plt Count 199 MPV 8.3 Neut % (Auto) 93.7 H Lymph % (Auto) 3.6 L Snyder % (Auto) 2.7 Eos % (Auto) 0.0 Baso % (Auto) 0.0 Neut # (Auto) 9.9 H Lymph # (Auto) 0.4 L Snyder # (Auto) 0.3 Eos # (Auto) 0.0 Baso # (Auto) 0.0 WBC Differential . Differential Comment Auto diff final ESR PT INR Sodium 135 L Potassium 4.3 Chloride 103 Carbon Dioxide 27.8 Anion Gap 4 L BUN 48 H Creatinine 1.80 H Estimated GFR 36 L Random Glucose 176 H Lactic Acid Calcium 8.2 L Magnesium 1.9 Total Bilirubin 0.3 AST 26 ALT 31 Alkaline Phosphatase 116 Total Creatine Kinase Troponin I 0.02 C-Reactive Protein B-Natriuretic Peptide Total Protein 5.6 L Albumin 1.8 L Vitamin B12 TSH Free T4 Urine Color Yellow Urine Clarity Hazy H Urine pH 5.0 Ur Specific Strawn 1.014 Urine Protein 100 H Urine Glucose (UA) 50 Urine Ketones Negative Urine Occult Blood Negative Urine Nitrate Negative Urine Bilirubin Negative Urine Urobilinogen Less than 2 Ur Leukocyte Esterase Large H Urine RBC 1 Urine WBC 99 H Amorphous Sediment Few H Urine Bacteria Few H Hyaline Casts 1 Urine Mucus Few H Micro UA Comment Culture indicated Ur Microscopic Review Not Reportable Urine Culture Comments Culture indicated 01/14/18 01/14/18 01/14/18 02:30 02:30 02:30 WBC 9.1 RBC 3.88 L Hgb 10.1 L Hct 32.3 L MCV 83.3 MCH 26.0 L MCHC 31.3 L RDW 18.6 H Plt Count 207 MPV 8.1 Neut % (Auto) 92.9 H Lymph % (Auto) 4.8 L Snyder % (Auto) 2.2 Eos % (Auto) 0.0 Baso % (Auto) 0.1 Neut # (Auto) 8.5 H Lymph # (Auto) 0.4 L Snyder # (Auto) 0.2 Eos # (Auto) 0.0 Baso # (Auto) 0.0 WBC Differential . Differential Comment Auto diff final ESR PT INR Sodium 142 Potassium 4.1 Chloride 105 Carbon Dioxide 28.4 Anion Gap 9 BUN 45 H Creatinine 1.64 H Estimated GFR 41 L Random Glucose 102 Lactic Acid Calcium 8.3 L Magnesium Total Bilirubin AST ALT Alkaline Phosphatase Total Creatine Kinase Troponin I C-Reactive Protein 17.20 H B-Natriuretic Peptide Total Protein Albumin Vitamin B12 1676 H TSH Free T4 Urine Color Urine Clarity Urine pH Ur Specific Strawn Urine Protein Urine Glucose (UA) Urine Ketones Urine Occult Blood Urine Nitrate Urine Bilirubin Urine Urobilinogen Ur Leukocyte Esterase Urine RBC Urine WBC Amorphous Sediment Urine Bacteria Hyaline Casts Urine Mucus Micro UA Comment Ur Microscopic Review Urine Culture Comments 01/14/18 01/14/18 01/14/18 10:22 16:35 16:35 WBC RBC Hgb Hct MCV MCH MCHC RDW Plt Count MPV Neut % (Auto) Lymph % (Auto) Snyder % (Auto) Eos % (Auto) Baso % (Auto) Neut # (Auto) Lymph # (Auto) Snyder # (Auto) Eos # (Auto) Baso # (Auto) WBC Differential Differential Comment ESR PT INR Sodium Potassium Chloride Carbon Dioxide Anion Gap BUN Creatinine Estimated GFR Random Glucose Lactic Acid 0.6 Calcium Magnesium Total Bilirubin AST ALT Alkaline Phosphatase Total Creatine Kinase 28 L Troponin I C-Reactive Protein 16.00 H B-Natriuretic Peptide 789 H Total Protein Albumin Vitamin B12 1601 H TSH 2.270 Free T4 1.11 Urine Color Urine Clarity Urine pH Ur Specific Strawn Urine Protein Urine Glucose (UA) Urine Ketones Urine Occult Blood Urine Nitrate Urine Bilirubin Urine Urobilinogen Ur Leukocyte Esterase Urine RBC Urine WBC Amorphous Sediment Urine Bacteria Hyaline Casts Urine Mucus Micro UA Comment Ur Microscopic Review Urine Culture Comments 01/14/18 01/14/18 16:35 16:35 WBC RBC Hgb Hct MCV MCH MCHC RDW Plt Count MPV Neut % (Auto) Lymph % (Auto) Snyder % (Auto) Eos % (Auto) Baso % (Auto) Neut # (Auto) Lymph # (Auto) Snyder # (Auto) Eos # (Auto) Baso # (Auto) WBC Differential Differential Comment ESR 71 H PT 12.2 H INR 1.2 Sodium Potassium Chloride Carbon Dioxide Anion Gap BUN Creatinine Estimated GFR Random Glucose Lactic Acid Calcium Magnesium Total Bilirubin AST ALT Alkaline Phosphatase Total Creatine Kinase Troponin I C-Reactive Protein B-Natriuretic Peptide Total Protein Albumin Vitamin B12 TSH Free T4 Urine Color Urine Clarity Urine pH Ur Specific Strawn Urine Protein Urine Glucose (UA) Urine Ketones Urine Occult Blood Urine Nitrate Urine Bilirubin Urine Urobilinogen Ur Leukocyte Esterase Urine RBC Urine WBC Amorphous Sediment Urine Bacteria Hyaline Casts Urine Mucus Micro UA Comment Ur Microscopic Review Urine Culture Comments Microbiology 01/13/18 21:20 Clean Catch Urine Urine Culture - Preliminary Immature growth - reincubate - Imaging Impressions Abdomen/Pelvis CT 01/13/18 20:43 CONCLUSION: 1. Marked prostate enlargement. 2. Air-filled distention of sigmoid colon. 3. Cardiomegaly. Small bilateral pleural effusions. 4. Diffuse atherosclerotic disease and arterial calcification. 5. Old insufficiency type fractures of the left side of the sacrum and left- sided pubic rami. Chest X-Ray 01/13/18 20:43 CONCLUSION: Clear lungs. Possible compression deformity at the thoracolumbar junction age indeterminate. Cervical Spine MRI 01/14/18 00:00 CONCLUSION: 1. Examination is degraded by motion artifact. 2. Partial visualization of a mass involving the left supraclavicular region measuring 5.[address] scan of the soft tissues of the neck with IV contrast to further assess if the patient can't hold still for that exam. 3. Diffuse degenerative changes as detailed at each level in the above discussion. Head MRI 01/14/18 00:00 CONCLUSION: 1. No acute intracranial abnormality. 2. Encephalomalacia involving the left frontal lobe. Lumbar Spine MRI 01/14/18 00:00 CONCLUSION: 1. Posterior fusion from L1 to L5. This in combination with motion artifact degrades the study. 2. Central canal appears patent throughout its visualized extent. 3. Old T12 compression deformity. Shoulder MRI 01/14/18 00:00 CONCLUSION: 1. Large full-thickness chronic appearing rotator cuff tear as described. 2. Joint effusion which communicates with large periarticular fluid collections characteristic of periarticular ganglions and bursal fluid collections. Internal debris is identified within the fluid collections. 3. Denervation versus disuse atrophy of the periarticular musculature. 4. Glenohumeral subluxation characteristic of chronic rotator cuff tear. 5. Moderate arthropathy of the glenohumeral joint with remodeling, hyaline cartilage thinning and marginal spurring. 6. Advanced acromioclavicular degenerative disease with periarticular ganglion. 7. Torn biceps tendon. 8. A cortical cyst formation seen in the superolateral humeral head. 9. Periarticular loose bodies within the fluid collections. Sign Thoracic Spine MRI 01/14/18 00:00 CONCLUSION: 1. See the MRI of the cervical spine reported separately. 2. Orthopedic hardware at the thoracolumbar junction. 3. Patent central canal throughout. Head CT 01/14/18 00:31 CONCLUSION: 1. No acute intracranial findings. 2. 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 . Assessment and Plan - Assessment and Plan I did review the gross evaluation of the fluid that was extracted from the shoulder. We are pending the laboratory analysis. I did see the patient at the bedside and also talked extensively with the family. I did express my concerns that the shoulder may be septic and that this could represent an extremely serious problem for the patient. We do need to follow-up on the results of the fluid. We did start talking about the possibility of requiring surgical management for the shoulder such as an arthrotomy with placement of drain. We did discuss the possibility of requiring intravenous antibiotics. I did contact Dr. Villegas who is the internal medicine physician who saw the patient. On the phone she was able to review with me the the medical condition including the results of the imaging such as the echocardiogram, neurology consultation, etc. Dr. Villegas is going to order a stat EKG on the patient and then let me know if she feels that the patient is potentially medically stable enough to move forward with surgical management if necessary on an urgent basis.
[2018-01-14 20:28] LABS: Appearance,Synovial Fluid Marked (Clear); Color,Synovial Fluid Straw (Straw)
[2018-01-14 20:30] LABS: Neutrophils,Synovial Fluid 97 % (0-25)
[2018-01-14 22:09] LABS: Hematocrit 27.7 % (39.0-51.0); Hemoglobin 8.9 gm/dL (13.0-17.0); Mean Corpuscular HGB Conc 32.1 % (32.0-36.0); Mean Corpuscular Hemoglobin 26.5 pg (27.0-34.0); Mean Corpuscular Volume 82.5 fL (80.0-100.0); Mean Platelet Volume 7.9 fL (7.0-11.0); Platelet Count 187 th/mm3 (150-450); Red Blood Count 3.36 mil/mm3 (4.50-5.90); Red Cell Distribution Width 18.7 % (11.6-17.2); White Blood Count 10.8 th/mm3 (4.0-11.0)
[2018-01-14] MEDS ORDERED: Vancomycin Inj 1,750 MG in Sodium Chlor 0.9% Inj 500 ML IV.SIG ONE (23:00)
[2018-01-14] MEDS ORDERED: Vancomycin Consult Pharmacy OTHER PRN (23:32)
[2018-01-15] MEDS ORDERED: AZTREONAM IV.SIG SCH ×2
[2018-01-15] MEDS ORDERED: SODIUM CHLOR 0.9% IV.SIG SCH ×2
[2018-01-15] MEDS: SODIUM CHLOR 0.9% IV.SIG SCH ×2 (01:35→10:47)
[2018-01-15] MEDS: AZTREONAM IV.SIG SCH ×2 (01:35→10:47)
[2018-01-15 06:11] LABS: INR 1.2 Ratio; Prothrombin Time 12.3 sec (9.8-11.6)
--- NOTE | 2018-01-15 07:08 | MG ---
cc: Geoff Acevedo MD [id number] REFERRING PHYSICIAN: . INDICATION: Encephalomalacia left frontal lobe, deteriorating health. Prednisone, Levaquin. FINDINGS: Recording shows some diffuse 6 Hz slowing, which was synchronous and symmetric. No hemisphere asymmetry is noted. Photic stimulation was performed without significant posterior driving. No epileptiform or seizure activity is noted. There were no hemisphere asymmetries. IMPRESSION: Some mild diffuse theta slowing. Otherwise, a normal electroencephalogram. No evidence for a focal or diffuse abnormality. Geoff Acevedo MD DJM/ll , 05:31 PM , 05:38 PM
[2018-01-15] MEDS: Sodium Chloride 0.9% 2 ML Flush BID IV.FLUSH SCH (08:02)
[2018-01-15] MEDS: Senna/Docusate Sodium 8.6/50 MG Tablet PO SCH (08:09)
[2018-01-15] MEDS: Levothyroxine 100 MCG Tablet PO SCH (08:11)
[2018-01-15] MEDS: Sod Chloride 0.9% Inj 1,000 ML IV.CONT SCH (08:37)
--- NOTE | 2018-01-15 08:47 | US ---
EXAM DATE: 01/14/2018 12:00 PM EST AGE/SEX: 82 years / Male INDICATIONS: Right leg swelling. CLINICAL DATA: This is the patient's initial encounter. Patient reports that signs and symptoms have been present for 1 day and indicates a pain score of 3/10. MEDICAL/SURGICAL HISTORY: . Afib. BPH. Depression. HTN. Hypothyroid. Peptic ulcer disease. . N aracelis surgery. [place] [facility] [place]/2016. . TECHNIQUE: Venous ultrasound of both lower extremities was performed from the inguinal ligament to t he proximal calf. Real-time, color Doppler and spectral tracing, compression and augmentation techni ques were used. FINDINGS: Normal compression of the deep venous system from the inguinal region to the proximal calf . No echogenic clot is seen. Normal response of the venous system to augmentation and respiration. CONCLUSION: 1. The study is negative for lower extremity deep venous thrombosis. Electronically signed by: Rusty Camara MD 01/15/2018 8:45 AM EST
[2018-01-15] MEDS ORDERED: Chlorhexidine Gluconate 2% 1 Pack (2 Cloths) TOPICAL ONE (08:56)
[2018-01-15] MEDS ORDERED: Metoprolol Tartrate 25 MG Tablet PO ONE (08:56)
[2018-01-15] MEDS ORDERED: Sodium Chlor 0.9% Inj 500 ML IV.SIG SCH (09:00)
--- NOTE | 2018-01-15 09:34 | P.PNNEU ---
Subjective Subjective Comments: no acute events, no cp. shoulder drained by ortho yesterday. family at bedside. Active Medications: Active Medications Acetaminophen (Tylenol) 650 mg PO Q4H PRN PRN Reason: Temp > 100.4 Al Hydroxide/Mg Hydroxide (Milk Of Magnesia Liq) 30 ml PO Q12H PRN PRN Reason: Mild Constipation Amlodipine Besylate (Norvasc) 5 mg PO DAILY [facility] Last Admin: 01/14/18 09:04 Dose: 5 mg Bisacodyl (Dulcolax Supp) 10 mg RECTAL DAILY PRN PRN Reason: SEVERE CONSITIPATION Citalopram Hydrobromide (Celexa) 20 mg PO DAILY [facility] Last Admin: 01/14/18 09:04 Dose: 20 mg Levofloxacin/Dextrose (Levaquin 750 Mg Premix Inj) 150 mls @ 100 mls/hr IV.SIG Q48H [facility] Last Infusion: 01/14/18 04:35 Dose: Infused Sodium Chloride (Ns Inj) 1,000 mls @ 70 mls/hr IV.CONT .[id number] [facility] Last Admin: 01/15/18 08:37 Dose: Not Given Aztreonam 1,000 mg/ Sodium (Chloride) 100 mls @ 200 mls/hr IV.SIG Q8H [facility] Last Infusion: 01/15/18 02:05 Dose: Infused Lactated Ringer's (Lr 1000 Ml Inj) 1,000 mls @ 30 mls/hr IV.SIG .Q24H [facility] Stop: 01/16/18 08:59 Sodium Chloride (Ns Inj) 500 mls @ 30 mls/hr IV.SIG .Q10H [facility] Vancomycin HCl 1,500 mg/ (Sodium Chloride) 515 mls @ 250 mls/hr IV.SIG Q36H [facility] Lactulose (Lactulose Liq) 30 ml PO DAILY PRN PRN Reason: SEVERE CONSITIPATION Levothyroxine Sodium (Synthroid) 100 mcg PO DAILY@0600 [facility] Last Admin: 01/15/18 08:11 Dose: Not Given Metoprolol Succinate (Toprol Xl) 50 mg PO DAILY [facility] Last Admin: 01/14/18 09:04 Dose: 50 mg Morphine Sulfate (Morphine Inj) 2 mg IV.PUSH Q1H PRN PRN Reason: Acute Pain Ondansetron HCl (Zofran Inj) 4 mg IV.PUSH Q6H PRN PRN Reason: NAUSEA OR VOMITING Pantoprazole Sodium (Protonix) 20 mg PO DAILY [facility] Last Admin: 01/14/18 09:04 Dose: 20 mg Pharmacy Profile Note (Vancomycin Consult Pharmacy) 1 each OTHER UNSCH PRN PRN Reason: Pharmacy to dose Prednisone (Deltasone) 40 mg PO DAILY [facility] Last Admin: 01/14/18 09:04 Dose: 40 mg Senna/Docusate Sodium (Diana-Colace) 1 tab PO BID [facility] Last Admin: 01/15/18 08:09 Dose: Not Given Sennosides (Senokot) 17.2 mg PO Q12H PRN PRN Reason: Moderate Constipation Sodium Chloride (Ns Flush) 2 ml IV.FLUSH BID [facility] Last Admin: 01/15/18 08:02 Dose: Not Given Sodium Chloride (Ns Flush) 2 ml IV.FLUSH PRN PRN PRN Reason: FLUSH AFTER USING IV ACCESS Tamsulosin HCl (Flomax) 0.4 mg PO DAILY [facility] Last Admin: 01/14/18 09:04 Dose: 0.4 mg Allergies/Adverse Reactions: Allergies Allergy/AdvReac Type Severity Reaction Status Date / Time amoxicillin Allergy Severe Hives Verified 01/13/18 20:44 Review of Systems All other systems reviewed negative except as stated in HPI Physical Exam Vital signs: Vital Signs 01/14/18 16:10 01/14/18 20:00 01/15/18 00:00 Temperature 97.4 F L 98.8 F 97.7 F Pulse Rate 86 83 96 H Respiratory Rate 20 18 19 Blood Pressure 135/66 149/73 H 148/73 H Pulse Oximetry 92 L 95 94 L 01/15/18 04:00 01/15/18 08:00 Temperature 98.7 F 97.8 F Pulse Rate 80 86 Respiratory Rate 19 24 Blood Pressure 147/69 H 141/72 H Pulse Oximetry 95 94 L Intake & Output 01/14/18 01/15/18 01/15/18 18:59 06:59 18:59 Intake Total 0 / 0 617.5 / 617.5 Output Total 400 / 400 800 / 800 Balance -400 / -400 -182.5 / -182.5 Weight 70.4 kg Intake: IV 617.5 / 617.5 Azactam Inj 1,000 MG In NS Inj 100 / 100 100 ML @ 200 mls/hr IV.SIG Q8H [facility] Rx#:[id number] Vancomycin Inj 1,750 MG In NS 517.5 / 517.5 Inj 500 ML @ 250 mls/hr IV.SIG ONCE ONE Rx#:[id number] Oral 0 / 0 0 / 0 Output: Urine 400 / 400 800 / 800 Other: # Voids 4 Date of Last Bowel Movement 01/13/18 01/13/18 # Bowel Movements 1 Narrative: GENERAL: in NAD, SKIN: Warm and dry. HEAD: Atraumatic. Normocephalic. EYES: Pupils equal and round. No scleral icterus. ENT: No nasal bleeding or discharge. NECK: Trachea midline. No JVD. CARDIOVASCULAR: Regular rate and rhythm. RESPIRATORY: No accessory muscle use. GASTROINTESTINAL: Abdomen soft, non-tender, nondistended. MUSCULOSKELETAL: Extremities without clubbing, cyanosis, or edema. No obvious deformities. NEUROLOGICAL: Awake, follows motor request mildly dysphonic speech able to converse and his mother tongue, extraocular movements intact no facial asymmetry tongue midline. Difficulty with full arm abduction above the shoulder which apparently has been there for several weeks now due to shoulder arthritis/bursitis. He is able raise both lower extremity to gravity does display mild atrophy in the calves. Plantar flexion dorsiflexion of both feet strength 4+ out of 5. Reflexes were 1-2+ plantarflex response no clonus elicited. Proprioception pinprick were normal. Gait not assessed secondary to fall risk he was noted to have occasional tremor, twitching of his right foot PSYCHIATRIC: Calm - Constitutional no acute distress - Routine HEENT Exam Head: Present: normocephalic Eye: Present: EOMI Objective Laboratory Results - last 24 hr 01/14/18 01/14/18 01/14/18 02:30 10:22 16:35 WBC RBC Hgb Hct MCV MCH MCHC RDW Plt Count MPV ESR PT INR APTT Lactic Acid 0.6 Total Creatine Kinase 28 L C-Reactive Protein 17.20 H 16.00 H B-Natriuretic Peptide Vitamin B12 1676 H 1601 H TSH 2.270 Free T4 1.11 Synovial Color Synovial Appearance Synovial RBC Synovial Nuc Cells Synovial Neutrophils Synovial Histocytes Synovial Crystals 01/14/18 01/14/18 01/14/18 16:35 16:35 16:35 WBC RBC Hgb Hct MCV MCH MCHC RDW Plt Count MPV ESR 71 H PT 12.2 H INR 1.2 APTT Lactic Acid Total Creatine Kinase C-Reactive Protein B-Natriuretic Peptide 789 H Vitamin B12 TSH Free T4 Synovial Color Synovial Appearance Synovial RBC Synovial Nuc Cells Synovial Neutrophils Synovial Histocytes Synovial Crystals 01/14/18 01/14/18 01/14/18 19:08 19:08 21:42 WBC 10.8 RBC 3.36 L Hgb 8.9 L Hct 27.7 L MCV 82.5 MCH 26.5 L MCHC 32.1 RDW 18.7 H Plt Count 187 MPV 7.9 ESR PT INR APTT Lactic Acid Total Creatine Kinase C-Reactive Protein B-Natriuretic Peptide Vitamin B12 TSH Free T4 Synovial Color Straw Synovial Appearance Marked H Synovial RBC 1200 H Synovial Nuc Cells 05596 H Synovial Neutrophils 97 H Synovial Histocytes 3 Synovial Crystals None 01/15/18 04:40 WBC RBC Hgb Hct MCV MCH MCHC RDW Plt Count MPV ESR PT 12.3 H INR 1.2 APTT 38.0 H Lactic Acid Total Creatine Kinase C-Reactive Protein B-Natriuretic Peptide Vitamin B12 TSH Free T4 Synovial Color Synovial Appearance Synovial RBC Synovial Nuc Cells Synovial Neutrophils Synovial Histocytes Synovial Crystals Microbiology 01/14/18 02:34 Aerobic Blood Culture - Preliminary Blood - Peripheral gram positive cocci Anaerobic Blood Culture - Preliminary gram positive cocci 01/14/18 02:30 Aerobic Blood Culture - Preliminary Blood - Peripheral gram positive cocci Anaerobic Blood Culture - Preliminary gram positive cocci 01/14/18 19:08 Gram Stain - Final Fluid - Synovial Fluid 01/13/18 21:20 Urine Culture - Preliminary Clean Catch Urine Immature growth - reincubate Review/Management - Diagnosis (1) Weakness Code(s): R53.1 - Weakness Status: Acute Current Visit: Yes (2) Acute UTI Code(s): N39.0 - Urinary tract infection, site not specified Status: Acute Current Visit: Yes (3) Atrial fibrillation Code(s): I48.91 - Unspecified atrial fibrillation Status: Acute Current Visit: Yes (4) Encephalomalacia on imaging study Code(s): G93.89 - Other specified disorders of brain Status: Acute Current Visit: Yes (5) Renal insufficiency Code(s): N28.9 - Disorder of kidney and ureter, unspecified Status: Acute Current Visit: Yes - Review/Management Plan: Subacute progressive weakness apparently occurring couple days after flu vaccine Has had recurrent UTIs complicating matters. 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 However he has good reflexes and normal sensory exam. Other possibilities would include a myopathy, metabolic versus disuse versus inflammatory vs steroid-induced myopathy. Elevated ESR and CRP. ? cause. This may be related to UTI, shoulder infection/ sepsis?; he has also been on steroids CK level is low ?steroid-induced myopathy Moderate left frontal encephalomalacia appearing to be from an old injury or infarct Recommendation f/u ortho eval will be getting shoulder joint drained. f/u results and f/u blood cx's has been on steroids which would predispose him to infection We will check an [facility] Follow recommendations of infectious disease ?supraclavicular mass emg/ncv CSF studies when feasible Consideration of plasma exchange treatment based on clinical course. IVIG would be precarious due to his renal insufficiency d/w family at bedside, son, and [id number], Dr. Shah. hx of left hemispheric meningioma resection (3) Atrial fibrillation Qualifiers: Atrial fibrillation type: unspecified Qualified Code(s): I48.91 - Unspecified atrial fibrillation
--- NOTE | 2018-01-15 09:57 | MB ---
cc: Miki Shen MD DATE: 01/15/2018 REASON FOR CONSULTATION: Concerns regarding possible multiple myeloma, amyloidosis, and generalized deterioration in health. Also identified as having a left supraclavicular mass. PATIENT PROFILE: The patient is an 82-year-old male. He is . He stopped smoking 2 years ago and had smoked a pack of cigarettes per day for 30 years. He has 2 children, a son and a daughter. 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 There is no history of excessive alcohol intake. HISTORY OF PRESENT ILLNESS: The patient is an 82-year-old male who over the past several years has had an accumulation of medical problems. In 06/2015, he underwent surgery to the lower back and ended up with an abscess. During the course of an evaluation, he was found to have a monoclonal protein. On 04/23/2016, he had a serum protein electrophoresis with a spike of 0.1 g/dL. He was found to have an IgG monoclonal protein with kappa light chain specificity. The IgG level was 794, IgA 201, and IgM 61. A serum for free kappa light chain was 49 and the serum for free lambda light chain was 15. Subsequent studies on 05/22/2016, revealed a free kappa light chain of 80 and a free lambda light chain of 22 with a ratio of 3.6. When all was said and done, he was felt to have a benign monoclonal gammopathy with the production of an IgG kappa light chain, but no evidence of myeloma. Radiographic studies did not demonstrate myeloma; and at that time, there was nothing to suggest amyloidosis. He recently was in [place] and developed a progressive debilitating weakness involving arms and legs. He was treated with steroids at some point, which were gradually tapered to 5 mg a day. He continued to deteriorate with global weakness. His sgjphcso-sa-ujh had him transported from [place] to [facility]; and shortly after arriving, he was admitted to the hospital with recent fever. He was found to have swelling of the right shoulder and underwent a tap. Microbiology reveals gram-positive cocci in pairs and clusters. The pleural fluid of the tap is also consistent with acute infection with 40,000 nucleated cells and 97% being neutrophils. He has been started on antibiotics. He is also receiving prednisone 40 mg a day. He has had a number of other studies performed because of the weakness and muscle loss. He has been seen by Neurology as well. On 01/14/2018, he had a venous Doppler which is negative for a DVT. On 01/14/2018, an MRI of the cervical spine without contrast wich showed a mass in the left supraclavicular area measuring 5.[address] scan of the soft tissues of the neck with IV contrast was suggested. He had a head MRI on 01/14/2018 showing encephalomalacia involving the left frontal lobe. Of note, there has been a history of atrial fibrillation. An MRI of the thoracic spine shows orthopedic hardware at the thoracolumbar junction and a patent central canal. MRI of the lumbosacral spine shows posterior fusion from L1-L5. The canal is patent. There is an old T12 compression deformity. A chest x-ray dated 01/13/2018 shows clear lungs. There is no mass. There is cardiomegaly. He has some difficulty verbalizing his complaints as he is weak and there is a slight language barrier. His son and jwcrnwvy-zt-thc were present and helped me. His major complaints are profound weakness. He cannot walk. He has developed muscular atrophy. He is bedridden. PAST SURGICAL HISTORY: 1. Cataract removal. 2. Drainage of paraspinous abscess in [place] in 2016. 3. Resection of meningioma 25 years ago. 4. Spinal fusion 06/2015. PAST MEDICAL HISTORY: 1. 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 2. Arthritis. 3. Hypertension. 4. Hypothyroidism. 5. History of transient atrial fibrillation. 6. Previous history of anemia. 7. Mild renal dysfunction. 8. BPH. FAMILY HISTORY: Mother at age 40. Father at age 90. The patient has 2 brothers who are alive and 2 sisters living. Mother of cardiac disease and father of renal failure. ALLERGIES: AMARYL. REVIEW OF SYSTEMS: Difficult to obtain, but is noticeable for the profound generalized weakness, loss of appetite, loss of muscle. Some back pain and mild discomfort in the right shoulder area where he had the fluid drained. LABORATORY DATA: On admission, hemoglobin 9.8, white count 10,000, platelets 199,000. Sedimentation rate is 71. C-reactive protein 16. BNP 789. B12 1600. TSH 2.2. PHYSICAL EXAMINATION: GENERAL: Reveals an ill gentleman. Voice is barely audible. He appears both acute and chronically ill. VITAL SIGNS: He is afebrile, blood pressure 140/70, respiratory rate 24, and O2 saturation 94%. HEENT: Head is normocephalic. Sclerae and conjunctivae unremarkable. Oropharynx unremarkable. NECK: There is a soft tissue left supraclavicular mass measuring about 4-5 cm. It is not particularly hard, but I believe it is not movable. I cannot detect any other adenopathy or mass. HEART: Irregular rhythm, rate 80. LUNGS: Clear. ABDOMEN: Soft. No hepatosplenomegaly. EXTREMITIES: Trace edema. MUSCULOSKELETAL: Muscle wasting. swelling right shoulder NEUROLOGIC: Global weakness associated with muscle loss. ASSESSMENT AND PLAN: 1. I do not think there is anything to suggest myeloma. I will repeat immunoglobulin studies. His x-rays do not show any lytic lesions. 2. The question of amyloidosis was raised. It would be unlikely to explain the current problems. At the moment, I would resolve the current problems; and if the workup needs to be pursued, then I will need to do a biopsy of either a fat pad or kidney or some other organ to determine whether there is amyloidosis. 3. He has an infection of the right shoulder. This is being managed by infectious disease and orthopedics. 4. He has a left supraclavicular mass. I have requested that he have a CT scan with contrast if his renal function is adequate. Following this, I would recommend a needle biopsy if the area is suspicious for a malignancy. 5. He has a global weakness. I am not sure why. Initially, I attributed this to the steroids; but in talking with his aaryjyrk-tz-raj, he has not been on high-dose steroids for any length of time. 6. Elevated inflammatory markers. Hopefully, this has to do with the infection in the shoulder. One might consider diseases such as polymyalgia rheumatica. This can be explored during his hospitalization and he may need to see a video games mechanic at some point. 7. He is anemic. I suspect this is anemia of chronic disease. At this point, I would not proceed with a bone marrow aspirate and biopsy. The situation was discussed with his son, his lirdceqh-pm-muh who is a physician, and Dr. Piña who is a neurosurgeon. He may need a spinal tap as well. MD Brenton Escudero , 09:18 AM , 09:36 AM GYPSY
--- NOTE | 2018-01-15 11:28 | P.PNID ---
Subjective Remarks: 4/ blood clx with growth GPC inclusters so is the fluid from shoulder (on G stain) urine clx cw contamnant no fever dw family @ b/s Labs from [place] reviewed: creatinine going down (max 3.7) Antibiotics: vanco azctam levaquin Allergies/Adverse Reactions: Allergies amoxicillin Allergy (Severe, Verified 01/13/18 20:44) Hives Objective Vital Signs 01/14/18 16:10 01/14/18 20:00 01/15/18 00:00 Temperature 97.4 F L 98.8 F 97.7 F Pulse Rate 86 83 96 H Respiratory Rate 20 18 19 Blood Pressure 135/66 149/73 H 148/73 H Pulse Oximetry 92 L 95 94 L 01/15/18 04:00 01/15/18 08:00 Temperature 98.7 F 97.8 F Pulse Rate 80 86 Respiratory Rate 19 24 Blood Pressure 147/69 H 141/72 H Pulse Oximetry 95 94 L Intake & Output 01/14/18 01/15/18 01/15/18 18:59 06:59 18:59 Intake Total 0 / 0 617.5 / 617.5 Output Total 400 / 400 800 / 800 Balance -400 / -400 -182.5 / -182.5 Weight 70.4 kg Intake: IV 617.5 / 617.5 Azactam Inj 1,000 MG In NS Inj 100 / 100 100 ML @ 200 mls/hr IV.SIG Q8H [facility] Rx#:[id number] Vancomycin Inj 1,750 MG In NS 517.5 / 517.5 Inj 500 ML @ 250 mls/hr IV.SIG ONCE ONE Rx#:[id number] Oral 0 / 0 0 / 0 Output: Urine 400 / 400 800 / 800 Other: # Voids 4 Date of Last Bowel Movement 01/13/18 01/13/18 # Bowel Movements 1 01/13/18 21:20 Clean Catch Urine Urine Culture - Final 50-100,000 cfu/mL mixed cecilia (probable contaminants ) 01/14/18 02:34 Blood - Peripheral Aerobic Blood Culture - Preliminary gram positive cocci 01/14/18 02:34 Blood - Peripheral Anaerobic Blood Culture - Preliminary gram positive cocci 01/14/18 02:30 Blood - Peripheral Aerobic Blood Culture - Preliminary gram positive cocci 01/14/18 02:30 Blood - Peripheral Anaerobic Blood Culture - Preliminary gram positive cocci 01/14/18 19:08 Fluid - Synovial Fluid Gram Stain - Final 01/14/18 19:08 Fluid - Synovial Fluid Body Fluid Culture - Pending Lab - Hematology Results 01/13/18 01/14/18 01/14/18 21:00 02:30 16:35 WBC 10.5 9.1 RBC 3.75 L 3.88 L Hgb 9.8 L 10.1 L Hct 31.3 L 32.3 L MCV 83.6 83.3 MCH 26.2 L 26.0 L MCHC 31.4 L 31.3 L RDW 18.5 H 18.6 H Plt Count 199 207 MPV 8.3 8.1 Neut % (Auto) 93.7 H 92.9 H Lymph % (Auto) 3.6 L 4.8 L [place] % (Auto) 2.7 2.2 Eos % (Auto) 0.0 0.0 Baso % (Auto) 0.0 0.1 Neut # (Auto) 9.9 H 8.5 H Lymph # (Auto) 0.4 L 0.4 L [place] # (Auto) 0.3 0.2 Eos # (Auto) 0.0 0.0 Baso # (Auto) 0.0 0.0 WBC Differential . . Differential Comment Auto diff final Auto diff final ESR 71 H 01/14/18 21:42 WBC 10.8 RBC 3.36 L Hgb 8.9 L Hct 27.7 L MCV 82.5 MCH 26.5 L MCHC 32.1 RDW 18.7 H Plt Count 187 MPV 7.9 Neut % (Auto) Lymph % (Auto) [place] % (Auto) Eos % (Auto) Baso % (Auto) Neut # (Auto) Lymph # (Auto) [place] # (Auto) Eos # (Auto) Baso # (Auto) WBC Differential Differential Comment ESR Lab - Chemistry Results 01/13/18 01/14/18 01/14/18 21:00 02:30 02:30 Sodium 135 L 142 Potassium 4.3 4.1 Chloride 103 105 Carbon Dioxide 27.8 28.4 Anion Gap 4 L 9 BUN 48 H 45 H Creatinine 1.80 H 1.64 H Estimated GFR 36 L 41 L Random Glucose 176 H 102 Lactic Acid Calcium 8.2 L 8.3 L Magnesium 1.9 Total Bilirubin 0.3 AST 26 ALT 31 Alkaline Phosphatase 116 Total Creatine Kinase Troponin I 0.02 C-Reactive Protein 17.20 H B-Natriuretic Peptide Total Protein 5.6 L Albumin 1.8 L Vitamin B12 1676 H TSH Free T4 01/14/18 01/14/18 01/14/18 10:22 16:35 16:35 Sodium Potassium Chloride Carbon Dioxide Anion Gap BUN Creatinine Estimated GFR Random Glucose Lactic Acid 0.6 Calcium Magnesium Total Bilirubin AST ALT Alkaline Phosphatase Total Creatine Kinase 28 L Troponin I C-Reactive Protein 16.00 H B-Natriuretic Peptide 789 H Total Protein Albumin Vitamin B12 1601 H TSH 2.270 Free T4 1.11 Imaging: ITS Impressions Abdomen/Pelvis CT 01/13/18 20:43 CONCLUSION: 1. Marked prostate enlargement. 2. Air-filled distention of sigmoid colon. 3. Cardiomegaly. Small bilateral pleural effusions. 4. Diffuse atherosclerotic disease and arterial calcification. 5. Old insufficiency type fractures of the left side of the sacrum and left- sided pubic rami. Chest X-Ray 01/13/18 20:43 CONCLUSION: Clear lungs. Possible compression deformity at the thoracolumbar junction age indeterminate. Cervical Spine MRI 01/14/18 00:00 CONCLUSION: 1. Examination is degraded by motion artifact. 2. Partial visualization of a mass involving the left supraclavicular region measuring 5.[address] scan of the soft tissues of the neck with IV contrast to further assess if the patient can't hold still for that exam. 3. Diffuse degenerative changes as detailed at each level in the above discussion. Head MRI 01/14/18 00:00 CONCLUSION: 1. No acute intracranial abnormality. 2. Encephalomalacia involving the left frontal lobe. Lumbar Spine MRI 01/14/18 00:00 CONCLUSION: 1. Posterior fusion from L1 to L5. This in combination with motion artifact degrades the study. 2. Central canal appears patent throughout its visualized extent. 3. Old T12 compression deformity. Shoulder MRI 01/14/18 00:00 CONCLUSION: 1. Large full-thickness chronic appearing rotator cuff tear as described. 2. Joint effusion which communicates with large periarticular fluid collections characteristic of periarticular ganglions and bursal fluid collections. Internal debris is identified within the fluid collections. 3. Denervation versus disuse atrophy of the periarticular musculature. 4. Glenohumeral subluxation characteristic of chronic rotator cuff tear. 5. Moderate arthropathy of the glenohumeral joint with remodeling, hyaline cartilage thinning and marginal spurring. 6. Advanced acromioclavicular degenerative disease with periarticular ganglion. 7. Torn biceps tendon. 8. A cortical cyst formation seen in the superolateral humeral head. 9. Periarticular loose bodies within the fluid collections. Sign Thoracic Spine MRI 01/14/18 00:00 CONCLUSION: 1. See the MRI of the cervical spine reported separately. 2. Orthopedic hardware at the thoracolumbar junction. 3. Patent central canal throughout. Head CT 01/14/18 00:31 CONCLUSION: 1. No acute intracranial findings. 2. 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 . Venous Doppler Study 01/14/18 09:20 CONCLUSION: 1. The study is negative for lower extremity deep venous thrombosis. Physical Exam: GENERAL: NAD SKIN: Warm and dry. No rash HEAD: Atraumatic. Normocephalic. EYES: Pupils equal and round. No scleral icterus. No injection or drainage. ENT: No nasal bleeding or discharge. Mucous membranes pink and moist. NECK: Trachea midline. No JVD. No palpable masses CARDIOVASCULAR: Regular rate and rhythm. nO MURMUS RESPIRATORY: No accessory muscle use. Clear to auscultation. Breath sounds equal bilaterally. GASTROINTESTINAL: Abdomen soft, non-tender, nondistended. Hepatic and splenic margins not palpable. MUSCULOSKELETAL: Extremities without clubbing, cyanosis, or edema. No obvious deformities. 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
[2018-01-15] MEDS ORDERED: Sugammadex Inj 200 MG/2 ML Vial IV.PUSH ONE (12:24)
[2018-01-15] MEDS ORDERED: Hydrocortisone Sod Succinate 100 MG Vial ONE (13:29)
--- NOTE | 2018-01-15 14:11 | P.PNIM ---
Subjective Interval history: Patient has complaints of right shoulder pain. Otherwise no other significant complaints. Physical Exam Vital signs: Vital Signs 01/14/18 16:10 01/14/18 20:00 01/15/18 00:00 Temperature 97.4 F L 98.8 F 97.7 F Pulse Rate 86 83 96 H Respiratory Rate 20 18 19 Blood Pressure 135/66 149/73 H 148/73 H Pulse Oximetry 92 L 95 94 L 01/15/18 04:00 01/15/18 08:00 01/15/18 12:00 Temperature 98.7 F 97.8 F 98.4 F Pulse Rate 80 86 85 Respiratory Rate 19 24 24 Blood Pressure 147/69 H 141/72 H 145/72 H Pulse Oximetry 95 94 L 95 Intake & Output 01/14/18 01/15/18 01/15/18 18:59 06:59 18:59 Intake Total 0 / 0 617.5 / 617.5 Output Total 400 / 400 800 / 800 Balance -400 / -400 -182.5 / -182.5 Weight 70.4 kg Intake: IV 617.5 / 617.5 Azactam Inj 1,000 MG In NS Inj 100 / 100 100 ML @ 200 mls/hr IV.SIG Q8H [facility] Rx#:[id number] Vancomycin Inj 1,750 MG In NS 517.5 / 517.5 Inj 500 ML @ 250 mls/hr IV.SIG ONCE ONE Rx#:[id number] Oral 0 / 0 0 / 0 Output: Urine 400 / 400 800 / 800 Other: # Voids 4 Date of Last Bowel Movement 01/13/18 01/13/18 01/13/18 # Bowel Movements 1 Narrative: General patient is in no acute distress. HEENT atraumatic, extraocular movements intact. Cardiovascular S1-S2 audible Respiratory clear to auscultation bilaterally Abdomen soft, nontender, nondistended, normal bowel sounds Extremities swelling of the right shoulder. Neuro patient can move all 4 extremities, sensation is intact bilaterally. Results - Labs CBC & Chem 7: 01/14/18 21:42 01/14/18 02:30 Laboratory Results - last 24 hr 01/14/18 01/14/18 01/14/18 16:35 16:35 16:35 WBC RBC Hgb Hct MCV MCH MCHC RDW Plt Count MPV ESR 71 H PT INR APTT Total Creatine Kinase 28 L C-Reactive Protein 16.00 H B-Natriuretic Peptide 789 H Total Protein (PEP) Vitamin B12 1601 H TSH 2.270 Free T4 1.11 Synovial Color Synovial Appearance Synovial RBC Synovial Nuc Cells Synovial Neutrophils Synovial Histocytes Synovial Crystals IgG IgA IgM 01/14/18 01/14/18 01/14/18 16:35 19:08 19:08 WBC RBC Hgb Hct MCV MCH MCHC RDW Plt Count MPV ESR PT 12.2 H INR 1.2 APTT Total Creatine Kinase C-Reactive Protein B-Natriuretic Peptide Total Protein (PEP) Vitamin B12 TSH Free T4 Synovial Color Straw Synovial Appearance Marked H Synovial RBC 1200 H Synovial Nuc Cells 41916 H Synovial Neutrophils 97 H Synovial Histocytes 3 Synovial Crystals None IgG IgA IgM 01/14/18 01/15/18 01/15/18 21:42 04:40 11:44 WBC 10.8 RBC 3.36 L Hgb 8.9 L Hct 27.7 L MCV 82.5 MCH 26.5 L MCHC 32.1 RDW 18.7 H Plt Count 187 MPV 7.9 ESR PT 12.3 H INR 1.2 APTT 38.0 H Total Creatine Kinase C-Reactive Protein B-Natriuretic Peptide Total Protein (PEP) 4.3 L Vitamin B12 TSH Free T4 Synovial Color Synovial Appearance Synovial RBC Synovial Nuc Cells Synovial Neutrophils Synovial Histocytes Synovial Crystals IgG 552 L IgA 182 IgM 36 L Microbiology 01/14/18 02:30 Blood - Peripheral Aerobic Blood Culture - Preliminary S. aureus MRSA 01/14/18 02:30 Blood - Peripheral Anaerobic Blood Culture - Preliminary gram positive cocci 01/13/18 21:20 Clean Catch Urine Urine Culture - Final 50-100,000 cfu/mL mixed cecilia (probable contaminants ) 01/14/18 02:34 Blood - Peripheral Aerobic Blood Culture - Preliminary gram positive cocci 01/14/18 02:34 Blood - Peripheral Anaerobic Blood Culture - Preliminary gram positive cocci 01/14/18 19:08 Fluid - Synovial Fluid Gram Stain - Final - Imaging Impressions Lumbar Spine MRI 01/14/18 00:00 CONCLUSION: 1. Posterior fusion from L1 to L5. This in combination with motion artifact degrades the study. 2. Central canal appears patent throughout its visualized extent. 3. Old T12 compression deformity. Shoulder MRI 01/14/18 00:00 CONCLUSION: 1. Large full-thickness chronic appearing rotator cuff tear as described. 2. Joint effusion which communicates with large periarticular fluid collections characteristic of periarticular ganglions and bursal fluid collections. Internal debris is identified within the fluid collections. 3. Denervation versus disuse atrophy of the periarticular musculature. 4. Glenohumeral subluxation characteristic of chronic rotator cuff tear. 5. Moderate arthropathy of the glenohumeral joint with remodeling, hyaline cartilage thinning and marginal spurring. 6. Advanced acromioclavicular degenerative disease with periarticular ganglion. 7. Torn biceps tendon. 8. A cortical cyst formation seen in the superolateral humeral head. 9. Periarticular loose bodies within the fluid collections. Sign Venous Doppler Study 01/14/18 09:20 CONCLUSION: 1. The study is negative for lower extremity deep venous thrombosis. - Procedures Right shoulder consent for aspiration obtained. Time out performed. Right shoulder prepped sterilely with alcohol and betadine. Sterile gloves doned. Right shoulder aspirated and sent for gram stain, culture, crystals, and cell count. 30 cc of purulent drainage aspirated and sent to lab. sterile dressing applied. Patient tolerated procedure well. Assessment and Plan - Plan This patient is an 82 old male with a diagnosis of hypertension, BPH, gastroesophageal reflux disease. The patient was brought in with acute encephalopathy. Recently he returned from [place] where he was treated for 3 consecutive urinary tract infections over the past 45 days. There is also concern for [place] because he recently got a flu shot and then had weakness in his extremities after receiving the vaccination. After evaluation the patient was found to have right shoulder swelling and erythema. Patient was having low-grade fevers. Blood cultures came back positive for MRSA, and his right shoulder was also evaluated and then aspirated by the orthopedic surgery team. 1. MRSA septicemia 2. Right shoulder effusion 3. Urinary tract infection. Patient has been afebrile overnight. Blood cultures positive. 2D echocardiogram did not show any findings consistent with vegetations. Patient may need JUSTIN. We will follow-up with cardiology further recommendations. Continue vancomycin, aztreonam, Levaquin Patient also had a right shoulder effusion, orthopedics aspirated the shoulder which grew approximately 30 cc of purulent fluid. Plan is to have the patient go to the OR today for drainage of that right shoulder. Continue IV antibiotics. I will follow-up with orthopedics for their recommendations. Infectious disease following, I appreciate their recommendations. We will follow-up repeat blood cultures. 3. Left supraclavicular mass 4. KEKE on CKD. Patient currently has an elevated serum creatinine of 1.64. Likely KEKE CKD. Currently on IV fluids, serum creatinine has down trended slightly since admission. We will give the patient gentle IV fluid hydration for today. Follow-up a.m. labs. Oncology following for the supraclavicular mass. Once the patient serum creatinine improves he will likely need a CT with contrast of the neck to evaluate the mass. We will continue to follow-up with heme oncology's recommendations. 5. BPH Continue Flomax. No pharmacotherapy for DVT prophylaxis as the patient is going to undergo drainage of the right shoulder by orthopedics today.
--- NOTE | 2018-01-15 14:42 | ECG ---
Date Performed: 01/14/2018 Time Performed: 19:58:32 PTAGE: 82 years EKG: ATRIAL FIBRILLATION Possible SEPTAL MYOCARDIAL INFARCTION , PROBABLY OLD ABNORMAL ECG Since the PREVIOUS TRACING , no significant change noted PREVIOUS TRACIN01/13/2018 22.05 DOCTOR: Homer Rees Interpretating Date/Time 01/15/2018 14:41:27
[2018-01-15] MEDS ORDERED: Phenylephrine/NS 1000 MCG/10ML Syringe IV.PUSH ONE (17:25)
[2018-01-15] MEDS ORDERED: Glycopyrrolate Inj 1 MG/5 ML Syringe IV.PUSH ONE (17:25)
[2018-01-15] MEDS ORDERED: Lidocaine PF 1% Inj 5 ML Syringe OTHER ONE (17:25)
[2018-01-15] MEDS ORDERED: Neostigmine Inj 5 MG/5 ML Syringe IV.PUSH ONE (17:25)
[2018-01-15] MEDS ORDERED: Clindamycin Inj 900 MG/6 ML Vial ONE (17:43)
--- NOTE | 2018-01-15 18:33 | P.PNNS ---
Subjective Interval history: This is a 82-year-old male with history of arterial hypertension, BPH and GERD presents to the emergency department for evaluation of altered mental status. The patient just returned from [place] where he was treated for 3 consecutive urinary tract infections over the last 45 days. Prior to leaving, the patient received a flu shot, and there was concern for Gujhony Monroy as the patient developed increasing weakness following the immunization. Prior to being immunized, he was able to ambulate with a cane. No falls or head injury. The patient is nonambulatory. He has intermittent hallucinations and altered mental status. His family noticed hand swelling, labored breathing, fever, fatigue/weakness and confusion. During his hospitalization in [place] there was also discussion of possible renal and liver biopsies with concern for amyloidosis or possible multiple myeloma. No fevers/chills. No chest pain or shortness of breath although the patient's family notes labored breathing. No abdominal pain. No nausea/vomiting/diarrhea. No lateralizing signs/symptoms. 01/15 Neurologicvally stable overnight, afebrile Physical Exam Vital signs: Vital Signs 01/14/18 20:00 01/15/18 00:00 01/15/18 04:00 Temperature 98.8 F 97.7 F 98.7 F Pulse Rate 83 96 H 80 Respiratory Rate 18 19 19 Blood Pressure 149/73 H 148/73 H 147/69 H Pulse Oximetry 95 94 L 95 01/15/18 08:00 01/15/18 12:00 Temperature 97.8 F 98.4 F Pulse Rate 86 85 Respiratory Rate 24 24 Blood Pressure 141/72 H 145/72 H Pulse Oximetry 94 L 95 Intake & Output 01/14/18 01/15/18 01/15/18 18:59 06:59 18:59 Intake Total 0 / 0 617.5 / 617.5 Output Total 400 / 400 800 / 800 110 / 110 Balance -400 / -400 -182.5 / -182.5 -110 / -110 Weight 70.4 kg Intake: IV 617.5 / 617.5 Azactam Inj 1,000 MG In NS Inj 100 / 100 100 ML @ 200 mls/hr IV.SIG Q8H [facility] Rx#:[id number] Vancomycin Inj 1,750 MG In NS 517.5 / 517.5 Inj 500 ML @ 250 mls/hr IV.SIG ONCE ONE Rx#:[id number] Oral 0 / 0 0 / 0 Output: Urine 400 / 400 800 / 800 110 / 110 Other: # Voids 4 1 Date of Last Bowel Movement 01/13/18 01/13/18 01/13/18 # Bowel Movements 1 Narrative: Mr Lujan is alert, awake. Comfortable, in no acute distress. mildly dysphonic speech He has a firm mass on the left side at the base of his neck, rubery consistency , mobile Cranial nerve examination: pupils to be equal, round and reactive to light. Extra-ocular movements are intact. Facial motor and sensory function are normal and symmetrical. Gross hearing appears intact. Sternocleidomastoid and trapezius muscles are symmetrical. Other cranial nerves are intact. Neck is soft and supple with a good range of motion without pain. Muscle strength is decreased in all muscle groups of both upper and lower extremities. Difficulty with full arm abduction above the shoulder due to shoulder arthritis/bursitis. Strenght 3/5 proximal and 4/5 distal muscle groups Sensory examination is intact to light touch and pin prick in both the upper and lower extremities. Deep tendon reflexes are 1-2+symmetrical in both upper and lower extremities. There is a bilateral plantar flexion response. No clonus Cerebellar examination is unremarkable, without deficits. Lungs are clear Heart regular rhythm is regular rate Skin warm and dry Assessment and Plan - Plan 82 year old male 1. MRSA septicemia 2. Right shoulder effusion 3. Urinary tract infection. 4. Rul;e out Guillian barre syndrome 5. Rule out malignancy in his neck Neuro: neuro checks in a serial fashion. Sepsis. 2D echocardiogram did not show any findings consistent with vegetations. Patient may need JUSTIN. We will follow-up with cardiology further recommendations to rule out endicarditis. Right shoulder effusion, orthopedics aspirated the shoulder which grew approximately 30 cc of purulent fluid. Plan is to have the patient go to the OR today for drainage of that right septic shoulder. Left supraclavicular mass. CT Neck with contrast to rule out malignancy BPH. Continue Flomax. Pulmonary: aggressive pulmonary toilette, nasotracheal suction, and breathing treatments with nebulizers. Daily PT and OT Renal: elevated serum creatinine of 1.64. Likely KEKE. Currently on IV fluids, serum creatinine to be monitored closely, urine output, BUN and creatinine Endocrine: Monitor serial Acu checks and SSI as needed in detail ID IV angtibiotics for sepsis vancomycin, aztreonam, Levaquin. We will follow- up repeat blood cultures. ID consultation Protonix for stress ulcer prophylaxis Randolph gaona and SCD's for DVT prophylaxis Discussed with his family and Dr Shen
[2018-01-15] MEDS ORDERED: Post-op Orders (for Pharmacy) OTHER STA (19:00)
--- NOTE | 2018-01-15 19:10 | P.OP ---
Preoperative Diagnosis: Right shoulder septic arthritis Postoperative Diagnosis: Same Date of procedure: 01/15/18 Procedure: Right shoulder arthrotomy with lavage and debridement of synovium Anesthesia: CLEMENTE Surgeon: Oumar Bernardo MD Staffing Rn: LUIS Christopher The surgical procedure was assisted by my Advanced Registered Nurse Practitioner. My PRIMARY EDUCATION PROFESSOR presence was necessary throughout this case for the manipulation and positioning of the surgical extremity. My PRIMARY EDUCATION PROFESSOR was assisting me throughout the duration of this procedure. The skill set of an Advance Registered Nurse Practitioner was medically necessary to complete this procedure. During the surgical case, the surgical product sales consultant was working at the back table and the Advance Registered Nurse Practitioner was directly assisting me. Operation and Findings: I had a lengthy conversation with the family today about the results of the aspiration which showed significant signs of inflammation and also preliminarily showed a positive Gram stain. Based on these results this patient is diagnosed with a septic shoulder. I explained the serious nature of this condition. I do recommend urgent surgical management for this. The patient has been cleared medically and by the vp ad sales west to move forward with surgery. I did explain the risks and benefits of surgical management. This is surgery should be considered non-elective, given that this patient presented emergently to the hospital, and the decision to proceed with surgery was derived from this presentation. Management of pain associated with surgery will likely require the use of parental controlled substances. The risks and benefits of surgical management have been discussed in detail. The risks of surgery include, but are not limited to, injury to nerves, blood vessels, bleeding, continued infection, non-healing; loss of range on motion, dysfunction or weakness of the associated joints; blood clots, pneumonia, stroke, heart attack, and . Specifically I did explain that sometimes this type of infection will require repeat debridements and/or arthrotomy because of ongoing infection. There is no guarantee that the surgery will clear this patient of the infection. The patient was unable to sign consent. The family signed consent after acknowledging all of these risks. The patient was brought back to the operative theater. General anesthesia was administered. The patient was placed into the beachchair position with a neutral head and neck. The right upper extremity was prepped and draped in usual sterile fashion. There were no wounds noted on the shoulder. There was quite a bit of swelling and effusion noted about the shoulder. We made standard incision around the deltopectoral interval. We dissected through the deltopectoral interval. We identified a significant tense effusion. We made incision through this effusion and identified approximately 60-80 cc of gross purulence with a dense white cottage cheese congealed type of material floating around within the pus. This is all completely evacuated. We identified that there was a full-thickness retracted rotator cuff tear along with proximal biceps tendon tear. The cartilage had a yellowish hue to it the joint was located. We then irrigated with 6 L of saline laden with antibiotics. There was chronic granulation tissue in the anterior aspect of the joint by the anterior glenoid which was removed with a rongeur. I did not definitively see evidence of osteomyelitis. A deep drain was placed. This was sewn into place. We closed the capsule with 0 PDS followed by 2-0 Monocryl for skin followed by 3-0 nylon. We did give a dose of clindamycin after the cultures were taken. The infectious disease physician has the patient on standing antibiotics and we are not making adjustments to the standing antibiotics. Infectious disease physician will manage the IV antibiotics postoperatively. We have written orders for the drain to remain in place until the drainage is less than 10 cc in 8 hours. Again, it is possible this patient may require staged, planned repeat surgical management.
[2018-01-15] MEDS ORDERED: fentaNYL Citrate Inj 100 MCG/2 ML Ampul ONE (19:27)
[2018-01-15] MEDS ORDERED: *morphine SULFATE 10 MG/ML PERIprocedure ONLY ONE (19:28)
[2018-01-16] MEDS: Morphine Sulfate Inj 2 MG/ML Vial IV.PUSH PRN (04:25)
--- NOTE | 2018-01-16 05:55 | CT ---
EXAM DATE: 01/16/2018 5:29 AM EST AGE/SEX: 82 years / Male INDICATIONS: Mass found on mri of cervical spine. CLINICAL DATA: This is the patient's initial encounter. Patient reports that signs and symptoms have been present for 2 days and indicates a pain score of Nonresponsive. MEDICAL/SURGICAL HISTORY: Hypertension. Benign prostate hyperplasia, peptic ulcer disease, afib. N one. RADIATION DOSE: 16.75 CTDI (mGy) COMPARISON: No prior exams available for comparison. TECHNIQUE: Helical acquisition was performed using a multirow detector CT scanner during the adminis tration of 60 ml Visipaque 320 (iodixanol) nonionic water-soluble contrast as a single exam dose. U sing automated exposure control and adjustment of the mA and/or kV according to patient size, radiati on dose was kept as low as reasonably achievable to obtain optimal diagnostic quality images. DICOM format image data is available electronically for review and comparison. FINDINGS: Nasopharynx: The nasopharyngeal airway has a normal configuration. No mucosal thickening or mass is seen. Oropharynx: The intrinsic muscles of the tongue are symmetric. The tonsillar pillars are intact. T he prevertebral soft tissues are not thickened. Larynx: The supraglottic, glottic, and infraglottic structures are intact. Parapharyngeal: The parapharyngeal space is intact. Salivary Glands: The parotid and submandibular glands are intact. Lymph Nodes: No enlarged or necrotic-appearing nodes. Thyroid: Mildly heterogeneous thyroid with 9 mm hypodense nodule in the right lobe. Bones: Prominent degenerative findings of the cervical spine facet joints. Post Contrast: Partially visualized fluid and gas collection in the left posterior lower neck between the paraspinous muscles and the trapezius muscle. The visualized portion of the collection measures 7.5 x 3.9 cm in greatest axial dimensions and 3.8 cm in craniocaudal dimension. There is apparent sup erficial soft tissue edema adjacent to the left trapezius muscle. CONCLUSION: 1. Partially visualized fluid and gas collection deep to the left trapezius muscle in the posterior lower neck extending into the posterior thorax. Chest CT with contrast could be performed to image th e remainder of the abnormality. Differential diagnosis includes abscess and hematoma. 2. Degenerative findings of the cervical spine. Electronically signed by: Ward Cervantes MD 01/16/2018 5:53 AM EST
[2018-01-16 06:24] LABS: Baso % (Auto) 0.1 % (0.0-2.0); Hematocrit 26.2 % (39.0-51.0); Hemoglobin 8.2 gm/dL (13.0-17.0); Lymph # (Auto) 0.3 th/mm3 (1.0-4.8); Lymph % (Auto) 3.2 % (9.0-44.0); Mean Corpuscular HGB Conc 31.1 % (32.0-36.0); Mean Corpuscular Hemoglobin 26.1 pg (27.0-34.0); Mean Corpuscular Volume 83.9 fL (80.0-100.0); Mean Platelet Volume 7.7 fL (7.0-11.0); Mono # (Auto) 0.2 th/mm3 (0.0-0.9); Mono % (Auto) 2.5 % (0.0-8.0); Neut # (Auto) 7.7 th/mm3 (1.8-7.7); Neut % (Auto) 94.2 % (16.0-70.0); Platelet Count 171 th/mm3 (150-450); Red Blood Count 3.12 mil/mm3 (4.50-5.90); White Blood Count 8.2 th/mm3 (4.0-11.0)
[2018-01-16] MEDS: Levothyroxine 100 MCG Tablet PO SCH (06:24)
[2018-01-16 07:36] LABS: Calcium 7.5 mg/dL (8.5-10.1); Carbon Dioxide 25.7 meq/L (21.0-32.0); Magnesium 1.7 mg/dL (1.5-2.5); Potassium 4.2 meq/L (3.5-5.1); Vancomycin,Random 12.9 Comment
--- NOTE | 2018-01-16 08:39 | P.PNOP ---
Subjective Interval history: No complaints. Family at bedside. Case discussed with nurse Roster Physical Exam Vital signs: Vital Signs 01/15/18 12:00 01/15/18 19:14 01/15/18 19:15 Temperature 98.4 F 97.6 F Pulse Rate 85 78 80 Respiratory Rate 24 12 22 Blood Pressure 145/72 H 99/53 L 102/54 L Pulse Oximetry 95 94 L 94 L 01/15/18 19:30 01/15/18 19:45 01/15/18 20:00 Temperature 98.0 F Pulse Rate 81 77 77 Respiratory Rate 26 H 22 Blood Pressure 123/57 L 111/60 Pulse Oximetry 94 L 95 01/15/18 22:00 01/16/18 00:00 01/16/18 02:00 Temperature Pulse Rate 72 73 75 Respiratory Rate Blood Pressure Pulse Oximetry 01/16/18 04:25 01/16/18 07:49 Temperature Pulse Rate Respiratory Rate Blood Pressure Pulse Oximetry 97 96 Intake & Output 01/15/18 01/16/18 01/16/18 18:59 06:59 18:59 Intake Total 1500 / 1500 150 / 150 Output Total 120 / 120 430 / 430 Balance 1380 / 1380 -280 / -280 Weight 72.7 kg Intake: IV 100 / 100 150 / 150 Levaquin 750 mg Premix Inj 150 150 / 150 ML @ 100 mls/hr IV.SIG Q48H [facility] Rx#:[id number] Anesthesia Amount 1400 / 1400 Output: Urine 110 / 110 400 / 400 Estimated Blood Loss 10 10 Wound Drainage 30 # 1 Right Shoulder 30 Other: # Voids 1 3 # Incontinent Voids 1 Date of Last Bowel Movement 01/13/18 01/13/18 Narrative: Drain intact. Mild swelling to right shoulder. Neuro exam normal. No other focal complaints Results - Labs CBC & Chem 7: 01/16/18 05:40 01/16/18 05:40 Laboratory Results - last 24 hr 01/15/18 01/16/18 01/16/18 11:44 05:40 05:40 WBC 8.2 RBC 3.12 L Hgb 8.2 L Hct 26.2 L MCV 83.9 MCH 26.1 L MCHC 31.1 L RDW 19.0 H Plt Count 171 MPV 7.7 Neut % (Auto) 94.2 H Lymph % (Auto) 3.2 L Isabela % (Auto) 2.5 Eos % (Auto) 0.0 Baso % (Auto) 0.1 Neut # (Auto) 7.7 Lymph # (Auto) 0.3 L Isabela # (Auto) 0.2 Eos # (Auto) 0.0 Baso # (Auto) 0.0 WBC Differential . Differential Comment Auto diff final Sodium 141 Potassium 4.2 Chloride 109 H Carbon Dioxide 25.7 Anion Gap 6 BUN 42 H Creatinine 1.51 H Estimated GFR 45 L Random Glucose 74 Calcium 7.5 L Magnesium 1.7 Total Protein (PEP) 4.3 L Random Vancomycin 12.9 IgG 552 L IgA 182 IgM 36 L Microbiology 01/14/18 02:30 Blood - Peripheral Aerobic Blood Culture - Preliminary S. aureus MRSA 01/14/18 02:30 Blood - Peripheral Anaerobic Blood Culture - Preliminary gram positive cocci 01/13/18 21:20 Clean Catch Urine Urine Culture - Final 50-100,000 cfu/mL mixed cecilia (probable contaminants ) 01/14/18 02:34 Blood - Peripheral Aerobic Blood Culture - Preliminary gram positive cocci 01/14/18 02:34 Blood - Peripheral Anaerobic Blood Culture - Preliminary gram positive cocci - Imaging Impressions Venous Doppler Study 01/14/18 09:20 CONCLUSION: 1. The study is negative for lower extremity deep venous thrombosis. Soft Tissue Neck CT 01/16/18 00:00 CONCLUSION: 1. Partially visualized fluid and gas collection deep to the left trapezius muscle in the posterior lower neck extending into the posterior thorax. Chest CT with contrast could be performed to image the remainder of the abnormality. Differential diagnosis includes abscess and hematoma. 2. Degenerative findings of the cervical spine. - Procedures Right shoulder consent for aspiration obtained. Time out performed. Right shoulder prepped sterilely with alcohol and betadine. Sterile gloves doned. Right shoulder aspirated and sent for gram stain, culture, crystals, and cell count. 30 cc of purulent drainage aspirated and sent to lab. sterile dressing applied. Patient tolerated procedure well. Assessment and Plan - Assessment and Plan Abscess right shoulder. Surgery: I&D right shoulder. PLAN: IV antibiotics. Source of sepsis unclear. 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 Possible indolent infection that has developed an abscess of the right shoulder. We will defer to neurosurgery and other specialist for overall management. Continue drain Stable orthopedically
[2018-01-16] MEDS: predniSONE 20 MG Tablet PO SCH (08:50)
[2018-01-16] MEDS: Pantoprazole Sodium 20 MG DR Tablet PO SCH (08:51)
[2018-01-16] MEDS: Senna/Docusate Sodium 8.6/50 MG Tablet PO SCH ×2 (08:51→21:27)
[2018-01-16] MEDS: Citalopram 20 MG Tablet PO SCH (08:51)
[2018-01-16] MEDS: amLODIPine 5 MG Tablet PO SCH (08:51)
--- NOTE | 2018-01-16 09:49 | MB ---
cc: Geoff Garner MD DATE: 01/16/2018 REQUESTING PHYSICIAN: Dr. Villegas. CONSULTING PHYSICIAN: Dr. Geoff Garner. CHIEF COMPLAINT: Altered mental status. IMPRESSION: 1. Fluctuant right shoulder with altered mental status, possible sepsis syndrome. 2. Atrial fibrillation, stable. 3. Hypertension, stable. 4. Coronary calcifications, probable coronary artery disease, stable. 5. History of hypothyroidism, stable. 6. Previous history of spinal abscess. See previous hospitalization. 7. 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 RECOMMENDATIONS: The nurse hotel desk clerk or midlevel was seeing the patient, and will be consulting orthopedics for drainage of the shoulder. I have discussed with the family the differential diagnoses. Neurology will also be seeing patient. The possibility of Guillain-Versailles was entertained, because he had a recent flu shot. SUBJECTIVE: Mr. Lujan is an 82-year-old patient with history of hypertension and atrial fibrillation, who had not been anticoagulated, returned from [place] recently, where he had been ill over there as well. He had also been on prednisone for presumed polymyalgia rheumatica. This dose was interrupted for a few days, but it is unclear whether that had made any difference or not at the time, and adrenal insufficiency was essentially not felt to be the case. He had altered mental status within the last 72 hours, was seen at home by Dr. Everton Velazquez, his primary care physician, _[facility]___ recommended him being brought to the hospital, which he subsequently has had done. Currently, he has altered mental status, says his legs are both weak. He denies chest tightness, heaviness, fullness or pressure. He has had intermittent atrial fibrillation and it appears from the chart, that he was given a dose of Eliquis. PAST MEDICAL HISTORY: Complicated, itemized. He has a history of BPH, depression, hypertension, hypothyroidism. He had admission for what appears to be an infection in his spinal column in the past. MEDICATIONS: 1. Synthroid. 2. Metoprolol. 3. Ondansetron. 4. Pantoprazole. 5. Prednisone. 6. Senna. 7. Flomax. ALLERGIES: NO KNOWN MEDICATION ALLERGIES. REVIEW OF SYSTEMS: GASTROINTESTINAL: Chronic constipation. RESPIRATORY: He has had labored breathing, which is the main reason that his family physician sent him here with altered mental status. NEUROLOGIC: Altered mental status. MUSCULOSKELETAL: See previous admission notes from orthopedics and neurosurgery. GENITOURINARY: History of BPH. No recent hematuria, or kidney stone. PHYSICAL EXAMINATION: VITAL SIGNS: Blood pressure 140/70, heart rate currently 89 and irregular. HEENT: Pupils are equal. His sclerae are clear. NECK: Veins are not distended. SKIN: There is a large fluctuant mass-like area over his right shoulder area, both anteriorly and posteriorly. Cannot tell if it is warm. It is not red. LUNGS: Decreased breath sounds, but are clear. CARDIAC: Irregular rhythm. No murmurs or gallops. ABDOMEN: Soft. EXTREMITIES: Without edema. NEUROLOGIC: He has altered mental status, but he is noted to be right-handed. He moves all of his extremities. Sensory appears to be intact. LABORATORY STUDIES: His white count was 10,500, hemoglobin 9, hematocrit 31. Sodium 135, potassium 4.3. DISCUSSION: The case was discussed at length with the patient's , his zffcto-xe-pyn, who is a personal friend; [id number]-uls, and brother, various other family members, as well as Dr. Velazquez. He was cleared for drainage of the shoulder. Geoff Garner MD DAH/rh , 09:12 AM , 09:20 AM MTDHieu
--- NOTE | 2018-01-16 11:39 | P.PNID ---
Subjective Remarks: sp I+D R shoulder 4/4 blood clx with growth MRSA per family pt significantly improved after surgery He ate breakfast, he is alert and talks approprietly Antibiotics: vanco levaquin Allergies/Adverse Reactions: Allergies amoxicillin Allergy (Severe, Verified 01/13/18 20:44) Hives Objective Vital Signs 01/15/18 12:00 01/15/18 19:14 01/15/18 19:15 Temperature 98.4 F 97.6 F Pulse Rate 85 78 80 Respiratory Rate 24 12 22 Blood Pressure 145/72 H 99/53 L 102/54 L Pulse Oximetry 95 94 L 94 L 01/15/18 19:30 01/15/18 19:45 01/15/18 20:00 Temperature 98.0 F 98.9 F Pulse Rate 81 77 70 Respiratory Rate 26 H 22 26 H Blood Pressure 123/57 L 111/60 139/62 Pulse Oximetry 94 L 95 97 01/15/18 20:26 01/15/18 21:00 01/15/18 21:08 Temperature Pulse Rate 76 71 68 Respiratory Rate 116 H 120 H 115 H Blood Pressure 139/62 Pulse Oximetry 95 97 97 01/15/18 21:22 01/15/18 21:30 01/15/18 21:51 Temperature Pulse Rate 72 73 69 Respiratory Rate 131 H 131 H 130 H Blood Pressure 145/68 H 148/70 H 129/60 Pulse Oximetry 87 L 97 95 01/15/18 22:00 01/15/18 22:21 01/15/18 22:51 Temperature Pulse Rate 68 73 74 Respiratory Rate 125 H 113 H 119 H Blood Pressure 133/56 L 130/61 Pulse Oximetry 88 L 89 L 96 01/15/18 23:00 01/15/18 23:21 01/15/18 23:51 Temperature Pulse Rate 70 70 72 Respiratory Rate 116 H 114 H 130 H Blood Pressure 147/63 H 173/72 H Pulse Oximetry 97 97 97 01/16/18 00:00 01/16/18 00:21 01/16/18 00:51 Temperature 99 F Pulse Rate 75 71 76 Respiratory Rate 119 H 136 H 130 H Blood Pressure 138/54 L 160/74 H 133/62 Pulse Oximetry 98 97 99 01/16/18 01:00 01/16/18 01:33 01/16/18 01:52 Temperature Pulse Rate 91 H 72 75 Respiratory Rate 142 H 95 H 37 H Blood Pressure 140/69 141/66 H Pulse Oximetry 85 L 100 98 01/16/18 02:00 01/16/18 02:01 01/16/18 02:09 Temperature Pulse Rate 75 73 76 Respiratory Rate 38 H 35 H 31 H Blood Pressure 123/60 120/58 L Pulse Oximetry 98 99 99 01/16/18 03:00 01/16/18 04:00 01/16/18 04:09 Temperature 98.7 F Pulse Rate 77 79 74 Respiratory Rate 35 H 33 H 26 H Blood Pressure 161/76 H 161/76 H Pulse Oximetry 98 96 97 01/16/18 04:25 01/16/18 05:00 01/16/18 06:00 Temperature Pulse Rate 89 77 Respiratory Rate 31 H 29 H Blood Pressure Pulse Oximetry 97 99 98 01/16/18 06:09 01/16/18 07:00 01/16/18 07:49 Temperature Pulse Rate 86 92 H Respiratory Rate 27 H 44 H Blood Pressure 102/79 Pulse Oximetry 98 95 96 01/16/18 08:00 01/16/18 08:09 01/16/18 09:00 Temperature 98.5 F Pulse Rate 68 71 76 Respiratory Rate 26 H 24 24 Blood Pressure 115/55 L Pulse Oximetry 90 L 94 L 93 L Intake & Output 01/15/18 01/16/18 01/16/18 18:59 06:59 18:59 Intake Total 1500 / 1500 150 / 150 Output Total 120 / 120 430 / 430 Balance 1380 / 1380 -280 / -280 Weight 72.7 kg Intake: IV 100 / 100 150 / 150 Levaquin 750 mg Premix Inj 150 150 / 150 ML @ 100 mls/hr IV.SIG Q48H [facility] Rx#:[id number] Anesthesia Amount 1400 / 1400 Output: Urine 110 / 110 400 / 400 Estimated Blood Loss Wound Drainage # 1 Right Shoulder Other: # Voids 1 3 # Incontinent Voids 1 Date of Last Bowel Movement 01/13/18 01/13/18 01/13/18 01/14/18 02:34 Blood - Peripheral Aerobic Blood Culture - Preliminary S. aureus MRSA 01/14/18 02:34 Blood - Peripheral Anaerobic Blood Culture - Preliminary S. aureus MRSA 01/15/18 18:25 Wound - Shoulder Fungal Smear - Final No fungal elements seen 01/15/18 18:25 Wound - Shoulder Fungal Culture - Pending 01/15/18 18:25 Wound - Shoulder Gram Stain - Final 01/15/18 18:25 Wound - Shoulder Wound Culture - Pending 01/14/18 02:30 Blood - Peripheral Aerobic Blood Culture - Preliminary S. aureus MRSA 01/14/18 02:30 Blood - Peripheral Anaerobic Blood Culture - Preliminary S. aureus MRSA 01/15/18 18:25 Wound - Shoulder Fungal Smear - Final No fungal elements seen 01/15/18 18:25 Wound - Shoulder Fungal Culture - Pending 01/15/18 18:25 Wound - Shoulder Gram Stain - Final 01/15/18 18:25 Wound - Shoulder Wound Culture - Pending 01/15/18 18:25 Wound - Shoulder Acid Fast Bacilli Smear - Pending 01/15/18 18:25 Wound - Shoulder Mycobacterial Culture - Pending 01/15/18 18:25 Wound - Shoulder Acid Fast Bacilli Smear - Pending 01/15/18 18:25 Wound - Shoulder Mycobacterial Culture - Pending 01/13/18 21:20 Clean Catch Urine Urine Culture - Final 50-100,000 cfu/mL mixed cecilia (probable contaminants ) 01/14/18 19:08 Fluid - Synovial Fluid Gram Stain - Final 01/14/18 19:08 Fluid - Synovial Fluid Body Fluid Culture - Pending Lab - Hematology Results 01/14/18 01/14/18 01/16/18 16:35 21:42 05:40 WBC 10.8 8.2 RBC 3.36 L 3.12 L Hgb 8.9 L 8.2 L Hct 27.7 L 26.2 L MCV 82.5 83.9 MCH 26.5 L 26.1 L MCHC 32.1 31.1 L RDW 18.7 H 19.0 H Plt Count 187 171 MPV 7.9 7.7 Neut % (Auto) 94.2 H Lymph % (Auto) 3.2 L [place] % (Auto) 2.5 Eos % (Auto) 0.0 Baso % (Auto) 0.1 Neut # (Auto) 7.7 Lymph # (Auto) 0.3 L [place] # (Auto) 0.2 Eos # (Auto) 0.0 Baso # (Auto) 0.0 WBC Differential . Differential Comment Auto diff final ESR 71 H Lab - Chemistry Results 01/14/18 01/14/18 01/14/18 02:30 16:35 16:35 Sodium Potassium Chloride Carbon Dioxide Anion Gap BUN Creatinine Estimated GFR Random Glucose Calcium Magnesium Total Creatine Kinase 28 L C-Reactive Protein 17.20 H 16.00 H B-Natriuretic Peptide 789 H Total Protein (PEP) Vitamin B12 1676 H 1601 H TSH 2.270 Free T4 1.11 01/15/18 01/16/18 11:44 05:40 Sodium 141 Potassium 4.2 Chloride 109 H Carbon Dioxide 25.7 Anion Gap 6 BUN 42 H Creatinine 1.51 H Estimated GFR 45 L Random Glucose 74 Calcium 7.5 L Magnesium 1.7 Total Creatine Kinase C-Reactive Protein B-Natriuretic Peptide Total Protein (PEP) 4.3 L Vitamin B12 TSH Free T4 Imaging: ITS Impressions Abdomen/Pelvis CT 01/13/18 20:43 CONCLUSION: 1. Marked prostate enlargement. 2. Air-filled distention of sigmoid colon. 3. Cardiomegaly. Small bilateral pleural effusions. 4. Diffuse atherosclerotic disease and arterial calcification. 5. Old insufficiency type fractures of the left side of the sacrum and left- sided pubic rami. Chest X-Ray 01/13/18 20:43 CONCLUSION: Clear lungs. Possible compression deformity at the thoracolumbar junction age indeterminate. Cervical Spine MRI 01/14/18 00:00 CONCLUSION: 1. Examination is degraded by motion artifact. 2. Partial visualization of a mass involving the left supraclavicular region measuring 5.[address] scan of the soft tissues of the neck with IV contrast to further assess if the patient can't hold still for that exam. 3. Diffuse degenerative changes as detailed at each level in the above discussion. Head MRI 01/14/18 00:00 CONCLUSION: 1. No acute intracranial abnormality. 2. Encephalomalacia involving the left frontal lobe. Lumbar Spine MRI 01/14/18 00:00 CONCLUSION: 1. Posterior fusion from L1 to L5. This in combination with motion artifact degrades the study. 2. Central canal appears patent throughout its visualized extent. 3. Old T12 compression deformity. Shoulder MRI 01/14/18 00:00 CONCLUSION: 1. Large full-thickness chronic appearing rotator cuff tear as described. 2. Joint effusion which communicates with large periarticular fluid collections characteristic of periarticular ganglions and bursal fluid collections. Internal debris is identified within the fluid collections. 3. Denervation versus disuse atrophy of the periarticular musculature. 4. Glenohumeral subluxation characteristic of chronic rotator cuff tear. 5. Moderate arthropathy of the glenohumeral joint with remodeling, hyaline cartilage thinning and marginal spurring. 6. Advanced acromioclavicular degenerative disease with periarticular ganglion. 7. Torn biceps tendon. 8. A cortical cyst formation seen in the superolateral humeral head. 9. Periarticular loose bodies within the fluid collections. Sign Thoracic Spine MRI 01/14/18 00:00 CONCLUSION: 1. See the MRI of the cervical spine reported separately. 2. Orthopedic hardware at the thoracolumbar junction. 3. Patent central canal throughout. Head CT 01/14/18 00:31 CONCLUSION: 1. No acute intracranial findings. 2. 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 . Venous Doppler Study 01/14/18 09:20 CONCLUSION: 1. The study is negative for lower extremity deep venous thrombosis. Soft Tissue Neck CT 01/16/18 00:00 CONCLUSION: 1. Partially visualized fluid and gas collection deep to the left trapezius muscle in the posterior lower neck extending into the posterior thorax. Chest CT with contrast could be performed to image the remainder of the abnormality. Differential diagnosis includes abscess and hematoma. 2. Degenerative findings of the cervical spine. Physical Exam: GENERAL: NAD SKIN: Warm and dry. No rash HEAD: Atraumatic. Normocephalic. EYES: Pupils equal and round. No scleral icterus. No injection or drainage. ENT: No nasal bleeding or discharge. Mucous membranes pink and moist. NECK: Trachea midline. No JVD. No palpable masses, but diffuse pain CARDIOVASCULAR: Regular rate and rhythm. nO murmurs RESPIRATORY: No accessory muscle use. Clear to auscultation. Breath sounds equal bilaterally. GASTROINTESTINAL: Abdomen soft, non-tender, nondistended. Hepatic and splenic margins not palpable. MUSCULOSKELETAL: Extremities without clubbing, cyanosis, or edema. No obvious deformities. + R shoulder post op dressing with drain, serosdang dc NEUROLOGICAL: awake, alert, non focal PSYCHIATRIC: camilo, cooperative Assessment and Plan - Plan High grade staph bacteremia 2 D echo neg R shoulder effusion , cw R shoulder septic arhtritis (GPC)- surgery today / I+ D UTI, recurrnt recent ly used Bactrim - clx negative probably 2/2 prior abx use Chronic back pain with h/o L spine fusion and infection Encephalopathy - melissa 2/2 sepsis (pt has 2 concommitant infections: UTI and septic R shoulder arthritis - improved with treatment L supraclavicular mass turned out to be abscess on CT his CT showed abscess extending to posterior thorax MR L spine with ? 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
--- NOTE | 2018-01-16 12:01 | CT ---
EXAM DATE: 01/16/2018 11:50 AM EST AGE/SEX: 82 years / Male INDICATIONS: Lower neck mass. CLINICAL DATA: This is the patient's initial encounter. Patient reports that signs and symptoms have been present for 1 day and indicates a pain score of 0/10. MEDICAL/SURGICAL HISTORY: Hypertension. Hypothyroidism. None. RADIATION DOSE: 14.77 CTDI (mGy) COMPARISON: No prior exams available for comparison. TECHNIQUE: Multiple contiguous axial images were obtained through the chest without contrast. Image s were obtained in suspended respiration using multiple row detector helical technique. Using automa susan exposure control and adjustment of the mA and/or kV according to patient size, radiation dose was kept as low as reasonably achievable to obtain optimal diagnostic quality images. DICOM format imag e data is available electronically for review and comparison. FINDINGS: There is a lobulated mass seen in the left supraclavicular region. There appear to be multi ple lobulated masses. Overall, this area measures approximately 9 cm in transverse dimension, 7 cm in AP dimension and extends over a approximately 4 cm height. A few of these collections have small arthur bles of air. This lobulated collection appears to be restricted to the supraclavicular fat. It is not clearly communicate with the underlying lung or deformity at the glenohumeral joint region. There ap pears to be a drain in the right shoulder region. Lungs: There is increased density seen in the posterior lower lobes bilaterally. Mediastinum: Significant adenopathy is not seen. Coronary artery calcified lesions are present. Pleurae: There are mild bilateral pleural effusions being greater on the right. Axillae: Unremarkable. Bony Structures: Unremarkable. Miscellaneous: There are surgical hardware with transpedicular screws seen at the L1 level. There ap pears to be collapse and sclerosis at the inferior aspect of the T12 vertebral body and the superior aspect of L1. There appears to be possible fusion at the disc level. There are old right rib fracture s seen. CONCLUSION: 1. Lobulated mass in the left supraclavicular region. It is most suggestive of a multi lobulated loc ulated abscess given the air within several of the masses. 2. Bibasilar areas of consolidation or atelectasis. There are mild bilateral pleural effusion. 3. There is a drain over the right shoulder region. 4. Postsurgical change at the thoracolumbar region as described above. Electronically signed by: Misbah Blair MD 01/16/2018 12:00 PM EST
[2018-01-16] MEDS: Vancomycin Inj 1,500 MG in Sodium Chlor 0.9% Inj 500 ML IV.SIG SCH (13:28)
--- NOTE | 2018-01-16 13:35 | OTSOAPIP ---
ATTEMPTED X 2 BUT UNAVAILABLE DUE TO NURSING CARE. Therapist: Albertina Feldman Signature on file
--- NOTE | 2018-01-16 13:42 | P.PNONC ---
Subjective Interval history: Feels a little stronger today Objective Vital Signs/Intake & Output: Vital Signs 01/15/18 19:14 01/15/18 19:15 01/15/18 19:30 Temperature 97.6 F Pulse Rate 78 80 81 Respiratory Rate 12 22 26 H Blood Pressure 99/53 L 102/54 L 123/57 L Pulse Oximetry 94 L 94 L 94 L 01/15/18 19:45 01/15/18 20:00 01/15/18 20:26 Temperature 98.0 F 98.9 F Pulse Rate 77 70 76 Respiratory Rate 22 26 H 116 H Blood Pressure 111/60 139/62 Pulse Oximetry 95 97 95 01/15/18 21:00 01/15/18 21:08 01/15/18 21:22 Temperature Pulse Rate 71 68 72 Respiratory Rate 120 H 115 H 131 H Blood Pressure 139/62 145/68 H Pulse Oximetry 97 97 87 L 01/15/18 21:30 01/15/18 21:51 01/15/18 22:00 Temperature Pulse Rate 73 69 68 Respiratory Rate 131 H 130 H 125 H Blood Pressure 148/70 H 129/60 Pulse Oximetry 97 95 88 L 01/15/18 22:21 01/15/18 22:51 01/15/18 23:00 Temperature Pulse Rate 73 74 70 Respiratory Rate 113 H 119 H 116 H Blood Pressure 133/56 L 130/61 Pulse Oximetry 89 L 96 97 01/15/18 23:21 01/15/18 23:51 01/16/18 00:00 Temperature 99 F Pulse Rate 70 72 75 Respiratory Rate 114 H 130 H 119 H Blood Pressure 147/63 H 173/72 H 138/54 L Pulse Oximetry 97 97 98 01/16/18 00:21 01/16/18 00:51 01/16/18 01:00 Temperature Pulse Rate 71 76 91 H Respiratory Rate 136 H 130 H 142 H Blood Pressure 160/74 H 133/62 Pulse Oximetry 97 99 85 L 01/16/18 01:33 01/16/18 01:52 01/16/18 02:00 Temperature Pulse Rate 72 75 75 Respiratory Rate 95 H 37 H 38 H Blood Pressure 140/69 141/66 H Pulse Oximetry 100 98 98 01/16/18 02:01 01/16/18 02:09 01/16/18 03:00 Temperature Pulse Rate 73 76 77 Respiratory Rate 35 H 31 H 35 H Blood Pressure 123/60 120/58 L Pulse Oximetry 99 99 98 01/16/18 04:00 01/16/18 04:09 01/16/18 04:25 Temperature 98.7 F Pulse Rate 79 74 Respiratory Rate 33 H 26 H Blood Pressure 161/76 H 161/76 H Pulse Oximetry 96 97 97 01/16/18 05:00 01/16/18 06:00 01/16/18 06:09 Temperature Pulse Rate 89 77 86 Respiratory Rate 31 H 29 H 27 H Blood Pressure 102/79 Pulse Oximetry 99 98 98 01/16/18 07:00 01/16/18 07:49 01/16/18 08:00 Temperature 98.5 F Pulse Rate 92 H 68 Respiratory Rate 44 H 26 H Blood Pressure Pulse Oximetry 95 96 90 L 01/16/18 08:09 01/16/18 09:00 01/16/18 10:00 Temperature Pulse Rate 71 76 78 Respiratory Rate 24 24 118 H Blood Pressure 115/55 L Pulse Oximetry 94 L 93 L 93 L 01/16/18 10:09 01/16/18 11:00 01/16/18 12:00 Temperature 98.5 F Pulse Rate 80 80 81 Respiratory Rate 117 H 136 H 132 H Blood Pressure 107/58 L Pulse Oximetry 91 L 93 L 94 L 01/16/18 12:09 Temperature Pulse Rate 77 Respiratory Rate 126 H Blood Pressure 131/69 Pulse Oximetry 91 L Intake & Output 01/15/18 01/16/18 01/16/18 18:59 06:59 18:59 Intake Total 1500 / 1500 150 / 150 Output Total 120 / 120 430 / 430 Balance 1380 / 1380 -280 / -280 Weight 72.7 kg Intake: IV 100 / 100 150 / 150 Levaquin 750 mg Premix Inj 150 150 / 150 ML @ 100 mls/hr IV.SIG Q48H [facility] Rx#:[id number] Anesthesia Amount 1400 / 1400 Output: Urine 110 / 110 400 / 400 Estimated Blood Loss Wound Drainage # 1 Right Shoulder Other: # Voids 1 3 # Incontinent Voids 1 Date of Last Bowel Movement 01/13/18 01/13/18 01/13/18 Result Diagrams: 01/16/18 05:40 01/16/18 05:40 Laboratory Results: Laboratory Results - last 24 hr 01/16/18 01/16/18 05:40 05:40 WBC 8.2 RBC 3.12 L Hgb 8.2 L Hct 26.2 L MCV 83.9 MCH 26.1 L MCHC 31.1 L RDW 19.0 H Plt Count 171 MPV 7.7 Neut % (Auto) 94.2 H Lymph % (Auto) 3.2 L [place] % (Auto) 2.5 Eos % (Auto) 0.0 Baso % (Auto) 0.1 Neut # (Auto) 7.7 Lymph # (Auto) 0.3 L [place] # (Auto) 0.2 Eos # (Auto) 0.0 Baso # (Auto) 0.0 WBC Differential . Differential Comment Auto diff final Sodium 141 Potassium 4.2 Chloride 109 H Carbon Dioxide 25.7 Anion Gap 6 BUN 42 H Creatinine 1.51 H Estimated GFR 45 L Random Glucose 74 Calcium 7.5 L Magnesium 1.7 Random Vancomycin 12.9 Culture Results: Microbiology 01/14/18 19:08 Gram Stain - Final Fluid - Synovial Fluid Body Fluid Culture - Preliminary S. aureus MRSA 01/14/18 02:34 Aerobic Blood Culture - Preliminary Blood - Peripheral S. aureus MRSA Anaerobic Blood Culture - Preliminary S. aureus MRSA 01/15/18 18:25 Fungal Smear - Final Wound - Shoulder No fungal elements seen 01/15/18 18:25 Gram Stain - Final Wound - Shoulder 01/14/18 02:30 Aerobic Blood Culture - Preliminary Blood - Peripheral S. aureus MRSA Anaerobic Blood Culture - Preliminary S. aureus MRSA 01/15/18 18:25 Fungal Smear - Final Wound - Shoulder No fungal elements seen 01/15/18 18:25 Gram Stain - Final Wound - Shoulder 01/13/18 21:20 Urine Culture - Final Clean Catch Urine 50-100,000 cfu/mL mixed cecilia (probable contaminants) Imaging Studies: Impressions Soft Tissue Neck CT 01/16/18 00:00 CONCLUSION: 1. Partially visualized fluid and gas collection deep to the left trapezius muscle in the posterior lower neck extending into the posterior thorax. Chest CT with contrast could be performed to image the remainder of the abnormality. Differential diagnosis includes abscess and hematoma. 2. Degenerative findings of the cervical spine. Chest CT 01/16/18 11:15 CONCLUSION: 1. Lobulated mass in the left supraclavicular region. It is most suggestive of a multi lobulated loculated abscess given the air within several of the masses. 2. Bibasilar areas of consolidation or atelectasis. There are mild bilateral pleural effusion. 3. There is a drain over the right shoulder region. 4. Postsurgical change at the thoracolumbar region as described above. Medications: Active Medications Generic Name Dose Route Start Last Admin Trade Name Freq PRN Reason Stop Dose Admin Hydrocodone Bitart/Acetaminophen 1 tab 01/15/18 19:00 01/16/18 10:07 [place] 5/325 PO 1 tab Q4H PRN Administration PAIN LESS THAN 5 ON SCALE Amlodipine Besylate 5 mg 01/14/18 09:00 01/16/18 08:51 Norvasc PO 5 mg DAILY CHAYO Administration Citalopram Hydrobromide 20 mg 01/14/18 09:00 01/16/18 08:51 Celexa PO 20 mg DAILY CHAYO Administration Levofloxacin/Dextrose 150 mls @ 100 mls/hr 01/14/18 02:00 01/16/18 03:57 Levaquin 750 Mg Premix Inj IV.SIG Infused Q48H [facility] Infusion Levothyroxine Sodium 100 mcg 01/14/18 06:00 01/16/18 06:24 Synthroid PO Not Given DAILY@0600 CH[facility]O Metoprolol Succinate 50 mg 01/14/18 09:00 01/16/18 08:51 Toprol Xl PO 50 mg DAILY CHAYO Administration Morphine Sulfate 2 mg 01/16/18 04:07 01/16/18 04:25 Morphine Inj IV.PUSH 2 mg Q3H PRN Administration pain 1-10 when npo Pantoprazole Sodium 20 mg 01/14/18 09:00 01/16/18 08:51 Protonix PO 20 mg DAILY CHAYO Administration Prednisone 40 mg 01/14/18 09:00 01/16/18 08:50 Deltasone PO 40 mg DAILY CHAYO Administration Senna/Docusate Sodium 1 tab 01/14/18 09:00 01/16/18 08:51 Diana-Colace PO 1 tab BID CHAYO Administration Sodium Chloride 2 ml 01/15/18 21:00 01/15/18 21:42 Ns Flush IV.FLUSH Not Given BID CH[facility]O Tamsulosin HCl 0.4 mg 01/14/18 09:00 01/16/18 08:51 Flomax PO 0.4 mg DAILY CH[facility]O Administration Objective Remarks: GENERAL: Remains very frail but a little stronger SKIN: Warm and dry. HEAD: Normocephalic. EYES: No scleral icterus. No injection or drainage. NECK: In the left supraclavicular area there is a fullness which is easily palpable and corresponds to the mass seen on the CT of the neck and CT of the thorax LYMPHATIC: Fullness left supraclavicular area. This does not appear to be an enlarged lymph node CARDIOVASCULAR: Regular rate and rhythm without murmurs. RESPIRATORY: Breath sounds equal bilaterally. No accessory muscle use. GASTROINTESTINAL: Abdomen soft, non-tender, nondistended. EXTREMITIES: No cyanosis, or edema. MUSCULOSKELETAL: Muscle wasting NEUROLOGICAL: Diffuse weakness PSYCHIATRIC: Appropriate mood and affect; insight and judgment normal. Assessment/Plan - Plan The current problem that he has does not appear neoplastic. It appears infectious. He has an infection of the right shoulder and now has what appears to be an abscess in the left supraclavicular area. He will need drainage and cultures. It will be important to determine if there is an another source such as the heart or his previous hardware in the back which would cause seeding of the 2 areas that appear to be involved with infection. Immunoglobulin studies are pending but I do not feel that we will find anything suggestive of myeloma and amyloid remains a low possibility and can be entertained at a later date when his current problems have resolved. The above was discussed with his family. I discussed with the daughter the findings of the CT of the thorax and neck and showed her the fullness in the left supraclavicular area indicating that this may be an infection/abscess. Cultures of the shoulder are revealing MRSA. The patient is taking prednisone 40 mg a day. It is unclear why. It would be reasonable to taper this as it will make it more difficult to control the infection.
--- NOTE | 2018-01-16 14:03 | P.PN ---
Subjective Interval history: The patient is in bed he appears in not acute distress at this time family his very supportive of bedside. Patient is able to swallow without any problems he is saturating well on room air vital signs are fairly stable. Patient says he feels better today some pain at the right shoulder says mainly with palpation with movement. No fever or chills overnight. No nausea or vomiting. He ate all breakfast. Per is improving after surgery. Physical Exam Vital signs: Vital Signs 01/15/18 19:14 01/15/18 19:15 01/15/18 19:30 Temperature 97.6 F Pulse Rate 78 80 81 Respiratory Rate 12 22 26 H Blood Pressure 99/53 L 102/54 L 123/57 L Pulse Oximetry 94 L 94 L 94 L 01/15/18 19:45 01/15/18 20:00 01/15/18 20:26 Temperature 98.0 F 98.9 F Pulse Rate 77 70 76 Respiratory Rate 22 26 H 116 H Blood Pressure 111/60 139/62 Pulse Oximetry 95 97 95 01/15/18 21:00 01/15/18 21:08 01/15/18 21:22 Temperature Pulse Rate 71 68 72 Respiratory Rate 120 H 115 H 131 H Blood Pressure 139/62 145/68 H Pulse Oximetry 97 97 87 L 01/15/18 21:30 01/15/18 21:51 01/15/18 22:00 Temperature Pulse Rate 73 69 68 Respiratory Rate 131 H 130 H 125 H Blood Pressure 148/70 H 129/60 Pulse Oximetry 97 95 88 L 01/15/18 22:21 01/15/18 22:51 01/15/18 23:00 Temperature Pulse Rate 73 74 70 Respiratory Rate 113 H 119 H 116 H Blood Pressure 133/56 L 130/61 Pulse Oximetry 89 L 96 97 01/15/18 23:21 01/15/18 23:51 01/16/18 00:00 Temperature 99 F Pulse Rate 70 72 75 Respiratory Rate 114 H 130 H 119 H Blood Pressure 147/63 H 173/72 H 138/54 L Pulse Oximetry 97 97 98 01/16/18 00:21 01/16/18 00:51 01/16/18 01:00 Temperature Pulse Rate 71 76 91 H Respiratory Rate 136 H 130 H 142 H Blood Pressure 160/74 H 133/62 Pulse Oximetry 97 99 85 L 01/16/18 01:33 01/16/18 01:52 01/16/18 02:00 Temperature Pulse Rate 72 75 75 Respiratory Rate 95 H 37 H 38 H Blood Pressure 140/69 141/66 H Pulse Oximetry 100 98 98 01/16/18 02:01 01/16/18 02:09 01/16/18 03:00 Temperature Pulse Rate 73 76 77 Respiratory Rate 35 H 31 H 35 H Blood Pressure 123/60 120/58 L Pulse Oximetry 99 99 98 01/16/18 04:00 01/16/18 04:09 01/16/18 04:25 Temperature 98.7 F Pulse Rate 79 74 Respiratory Rate 33 H 26 H Blood Pressure 161/76 H 161/76 H Pulse Oximetry 96 97 97 01/16/18 05:00 01/16/18 06:00 01/16/18 06:09 Temperature Pulse Rate 89 77 86 Respiratory Rate 31 H 29 H 27 H Blood Pressure 102/79 Pulse Oximetry 99 98 98 01/16/18 07:00 01/16/18 07:49 01/16/18 08:00 Temperature 98.5 F Pulse Rate 92 H 68 Respiratory Rate 44 H 26 H Blood Pressure Pulse Oximetry 95 96 90 L 01/16/18 08:09 01/16/18 09:00 01/16/18 10:00 Temperature Pulse Rate 71 76 78 Respiratory Rate 24 24 118 H Blood Pressure 115/55 L Pulse Oximetry 94 L 93 L 93 L 01/16/18 10:09 01/16/18 11:00 01/16/18 12:00 Temperature 98.5 F Pulse Rate 80 80 81 Respiratory Rate 117 H 136 H 132 H Blood Pressure 107/58 L Pulse Oximetry 91 L 93 L 94 L 01/16/18 12:09 Temperature Pulse Rate 77 Respiratory Rate 126 H Blood Pressure 131/69 Pulse Oximetry 91 L Intake & Output 01/15/18 01/16/18 01/16/18 18:59 06:59 18:59 Intake Total 1500 / 1500 150 / 150 Output Total 120 / 120 430 / 430 Balance 1380 / 1380 -280 / -280 Weight 72.7 kg Intake: IV 100 / 100 150 / 150 Levaquin 750 mg Premix Inj 150 150 / 150 ML @ 100 mls/hr IV.SIG Q48H [facility] Rx#:[id number] Anesthesia Amount 1400 / 1400 Output: Urine 110 / 110 400 / 400 Estimated Blood Loss Wound Drainage # 1 Right Shoulder Other: # Voids 1 3 # Incontinent Voids 1 Date of Last Bowel Movement 01/13/18 01/13/18 01/13/18 Narrative: GENERAL: Pleasant elderly male in bed appears chronically ill, well-developed well-nourished, appears in not acute distress at this time. CARDIOVASCULAR: Regular rate and rhythm without murmurs, gallops, or rubs. RESPIRATORY: Breath sounds equal bilaterally. No accessory muscle use. GASTROINTESTINAL: Abdomen soft, non-tender, nondistended. MUSCULOSKELETAL: Left supraclavicular mass, slightly tender to palpation. Swelling at the right shoulder. No cyanosis. NEURO: Alert and oriented. Moves extremities no focal deficit. Results - Labs CBC & Chem 7: 01/16/18 05:40 01/16/18 05:40 Laboratory Results - last 24 hr 01/16/18 01/16/18 05:40 05:40 WBC 8.2 RBC 3.12 L Hgb 8.2 L Hct 26.2 L MCV 83.9 MCH 26.1 L MCHC 31.1 L RDW 19.0 H Plt Count 171 MPV 7.7 Neut % (Auto) 94.2 H Lymph % (Auto) 3.2 L Clark % (Auto) 2.5 Eos % (Auto) 0.0 Baso % (Auto) 0.1 Neut # (Auto) 7.7 Lymph # (Auto) 0.3 L Clark # (Auto) 0.2 Eos # (Auto) 0.0 Baso # (Auto) 0.0 WBC Differential . Differential Comment Auto diff final Sodium 141 Potassium 4.2 Chloride 109 H Carbon Dioxide 25.7 Anion Gap 6 BUN 42 H Creatinine 1.51 H Estimated GFR 45 L Random Glucose 74 Calcium 7.5 L Magnesium 1.7 Random Vancomycin 12.9 Microbiology 01/14/18 19:08 Fluid - Synovial Fluid Gram Stain - Final 01/14/18 19:08 Fluid - Synovial Fluid Body Fluid Culture - Preliminary S. aureus MRSA 01/14/18 02:34 Blood - Peripheral Aerobic Blood Culture - Preliminary S. aureus MRSA 01/14/18 02:34 Blood - Peripheral Anaerobic Blood Culture - Preliminary S. aureus MRSA 01/15/18 18:25 Wound - Shoulder Fungal Smear - Final No fungal elements seen 01/15/18 18:25 Wound - Shoulder Gram Stain - Final 01/14/18 02:30 Blood - Peripheral Aerobic Blood Culture - Preliminary S. aureus MRSA 01/14/18 02:30 Blood - Peripheral Anaerobic Blood Culture - Preliminary S. aureus MRSA 01/15/18 18:25 Wound - Shoulder Fungal Smear - Final No fungal elements seen 01/15/18 18:25 Wound - Shoulder Gram Stain - Final 01/13/18 21:20 Clean Catch Urine Urine Culture - Final 50-100,000 cfu/mL mixed cecilia (probable contaminants ) - Imaging Impressions Soft Tissue Neck CT 01/16/18 00:00 CONCLUSION: 1. Partially visualized fluid and gas collection deep to the left trapezius muscle in the posterior lower neck extending into the posterior thorax. Chest CT with contrast could be performed to image the remainder of the abnormality. Differential diagnosis includes abscess and hematoma. 2. Degenerative findings of the cervical spine. Chest CT 01/16/18 11:15 CONCLUSION: 1. Lobulated mass in the left supraclavicular region. It is most suggestive of a multi lobulated loculated abscess given the air within several of the masses. 2. Bibasilar areas of consolidation or atelectasis. There are mild bilateral pleural effusion. 3. There is a drain over the right shoulder region. 4. Postsurgical change at the thoracolumbar region as described above. - Procedures Right shoulder consent for aspiration obtained. Time out performed. Right shoulder prepped sterilely with alcohol and betadine. Sterile gloves doned. Right shoulder aspirated and sent for gram stain, culture, crystals, and cell count. 30 cc of purulent drainage aspirated and sent to lab. sterile dressing applied. Patient tolerated procedure well. Assessment and Plan - Plan Pleasant 82 old male with hypertension, BPH, gastroesophageal reflux disease. The patient was brought in with acute encephalopathy. Recently he returned from [place] where he was treated for 3 consecutive urinary tract infections over the past 45 days. There is also concern for Guillain [place] because he recently got a flu shot and then had weakness in his extremities after receiving the vaccination. After evaluation the patient was found to have right shoulder swelling and erythema. Patient was having low-grade fevers. Blood cultures came back positive for MRSA, and his right shoulder was also evaluated and then aspirated by the orthopedic surgery team. MRSA septicemia Right shoulder effusion. septic right shoulder, s/p I&D Urinary tract infection. Left Supraclavicular mass likely abscess CT reviewed, showed abscess extending to posterior thorax MR L spine with poss diskitis On chronic ( ~50 days) of steroid use. Taper steroid Patient has been afebrile . Vital signs are fairly stable Blood cultures positive for MRSA. 2D echocardiogram did not show any findings consistent with vegetations. Patient may need JUSTIN. Continue vancomycin, Levaquin Patient also had a right shoulder effusion, orthopedics aspirated the shoulder which grew approximately 30 cc of purulent fluid. had follow-up with orthopedics for their recommendations drainage of that right shoulder. Continue IV antibiotics per infectious disease recommendations. Infectious disease following repeat blood cultures ntd Cardiothoracic surgeon was consulted for evaluation of supraclavicular mass/ poss abscess Plan for [place] WBC scan on Saturday Neurology, ID, hem onc ff. CTS consulted. KEKE on CKD. Noted elevated serum creatinine of 1.64. Likely KEKE on CKD. Cont IV fluids, serum creatinine trending down Oncology following for the supraclavicular mass. Once the patient serum creatinine improves he will likely need a CT with contrast of the neck to evaluate the mass. We will continue to follow-up with heme oncology's recommendations. BPH - Continue Flomax. DVT prophylaxis per surgeon
[2018-01-17] MEDS: Morphine Sulfate Inj 2 MG/ML Vial IV.PUSH PRN ×3 (01:35→08:35)
[2018-01-17] MEDS: Levothyroxine 100 MCG Tablet PO SCH (05:24)
[2018-01-17 06:12] LABS: Alanine Aminotransferase 17 U/L (12-78); Albumin 1.6 g/dL (3.4-5.0); Alkaline Phosphatase 89 U/L (45-117); Anion Gap 7 meq/L (5-15); Aspartate Aminotransferase 10 U/L (15-37); Blood Urea Nitrogen 50 mg/dL (7-18); Calcium 7.6 mg/dL (8.5-10.1); Carbon Dioxide 27.2 meq/L (21.0-32.0); Chloride 107 meq/L (98-107); Glomerular Filtration Rate 37 mL/min (>89); Glucose,Random 246 mg/dL (74-106); Potassium 4.1 meq/L (3.5-5.1); Sodium 141 meq/L (136-145); Total Protein 4.9 g/dL (6.4-8.2)
[2018-01-17] MEDS: Citalopram 20 MG Tablet PO SCH (08:01)
[2018-01-17] MEDS: predniSONE 20 MG Tablet PO SCH (08:01)
[2018-01-17] MEDS: Pantoprazole Sodium 20 MG DR Tablet PO SCH (08:01)
[2018-01-17] MEDS: Senna/Docusate Sodium 8.6/50 MG Tablet PO SCH ×2 (08:01→21:51)
[2018-01-17] MEDS: amLODIPine 5 MG Tablet PO SCH (08:01)
--- NOTE | 2018-01-17 08:07 | P.PNOP ---
Subjective Interval history: Patient appears comfortable. No complaints. Son at bedside Physical Exam Vital signs: Vital Signs 01/16/18 08:09 01/16/18 09:00 01/16/18 10:00 Temperature Pulse Rate 71 76 78 Respiratory Rate 24 24 118 H Blood Pressure 115/55 L Pulse Oximetry 94 L 93 L 93 L 01/16/18 10:09 01/16/18 11:00 01/16/18 12:00 Temperature 98.5 F Pulse Rate 80 80 81 Respiratory Rate 117 H 136 H 132 H Blood Pressure 107/58 L Pulse Oximetry 91 L 93 L 94 L 01/16/18 12:09 01/16/18 13:00 01/16/18 14:00 Temperature Pulse Rate 77 80 89 Respiratory Rate 126 H 92 H 123 H Blood Pressure 131/69 Pulse Oximetry 91 L 91 L 93 L 01/16/18 14:09 01/16/18 15:00 01/16/18 16:00 Temperature 98.8 F Pulse Rate 95 H 79 80 Respiratory Rate 120 H 126 H 147 H Blood Pressure 120/60 Pulse Oximetry 94 L 95 92 L 01/16/18 16:09 01/16/18 17:00 01/16/18 18:00 Temperature Pulse Rate 78 89 84 Respiratory Rate 144 H 20 18 Blood Pressure 116/55 L Pulse Oximetry 93 L 98 98 01/16/18 18:09 01/16/18 19:00 01/16/18 20:00 Temperature 98.3 F Pulse Rate 82 87 89 Respiratory Rate 22 22 22 Blood Pressure 121/65 Pulse Oximetry 98 97 97 01/16/18 20:09 01/16/18 21:00 01/16/18 22:00 Temperature Pulse Rate 90 84 79 Respiratory Rate 22 17 Blood Pressure 139/73 Pulse Oximetry 96 99 96 01/16/18 22:09 01/16/18 23:00 01/17/18 00:00 Temperature 98 F Pulse Rate 80 78 81 Respiratory Rate 23 20 19 Blood Pressure 124/74 Pulse Oximetry 96 95 96 01/17/18 00:09 01/17/18 01:00 01/17/18 01:37 Temperature Pulse Rate 82 85 Respiratory Rate 19 21 16 Blood Pressure 132/70 Pulse Oximetry 96 98 01/17/18 02:00 01/17/18 02:04 01/17/18 02:09 Temperature Pulse Rate 79 79 Respiratory Rate 21 15 18 Blood Pressure 127/76 Pulse Oximetry 96 96 01/17/18 03:00 01/17/18 04:00 01/17/18 04:09 Temperature 97.6 F Pulse Rate 78 75 74 Respiratory Rate 20 22 20 Blood Pressure 128/68 Pulse Oximetry 97 96 95 01/17/18 05:00 01/17/18 05:26 01/17/18 06:00 Temperature Pulse Rate 75 71 Respiratory Rate 18 18 16 Blood Pressure Pulse Oximetry 95 96 01/17/18 06:09 01/17/18 07:00 Temperature Pulse Rate 72 86 Respiratory Rate 147 H 129 H Blood Pressure 134/75 Pulse Oximetry 96 96 Intake & Output 01/16/18 01/17/18 01/17/18 18:59 06:59 18:59 Intake Total 1165 / 1165 400 / 400 Output Total 60 / 60 Balance 1105 / 1105 400 / 400 Weight 73.3 kg Intake: IV 515 / 515 Vancomycin Inj 1,500 MG In NS 515 / 515 Inj 500 ML @ 250 mls/hr IV.SIG Q36H [facility] Rx#:[id number] Oral 650 / 650 400 / 400 Output: Wound Drainage 60 / 60 # 1 Right Shoulder 60 / 60 Other: # Voids 5 6 Date of Last Bowel Movement 01/13/18 01/13/18 Narrative: Swelling right shoulder about the same, may be slightly less. Drain put out 30 cc over the evening. No redness or warmth Results - Labs CBC & Chem 7: 01/16/18 05:40 01/17/18 05:12 Laboratory Results - last 24 hr 01/17/18 05:12 Sodium 141 Potassium 4.1 Chloride 107 Carbon Dioxide 27.2 Anion Gap 7 BUN 50 H Creatinine 1.76 H Estimated GFR 37 L Random Glucose 246 H D Calcium 7.6 L Total Bilirubin 0.2 AST 10 L ALT 17 Alkaline Phosphatase 89 Total Protein 4.9 L D Albumin 1.6 L Microbiology 01/14/18 19:08 Fluid - Synovial Fluid Gram Stain - Final 01/14/18 19:08 Fluid - Synovial Fluid Body Fluid Culture - Preliminary S. aureus MRSA 01/15/18 18:25 Wound - Shoulder Gram Stain - Final 01/15/18 18:25 Wound - Shoulder Wound Culture - Preliminary 01/15/18 18:25 Wound - Shoulder Gram Stain - Final 11/21/18 18:25 Wound - Shoulder Wound Culture - Preliminary 01/14/18 02:34 Blood - Peripheral Aerobic Blood Culture - Preliminary S. aureus MRSA 01/14/18 02:34 Blood - Peripheral Anaerobic Blood Culture - Preliminary S. aureus MRSA 01/15/18 18:25 Wound - Shoulder Fungal Smear - Final No fungal elements seen 01/14/18 02:30 Blood - Peripheral Aerobic Blood Culture - Preliminary S. aureus MRSA 01/14/18 02:30 Blood - Peripheral Anaerobic Blood Culture - Preliminary S. aureus MRSA 01/15/18 18:25 Wound - Shoulder Fungal Smear - Final No fungal elements seen - Imaging Impressions Chest CT 01/16/18 11:15 CONCLUSION: 1. Lobulated mass in the left supraclavicular region. It is most suggestive of a multi lobulated loculated abscess given the air within several of the masses. 2. Bibasilar areas of consolidation or atelectasis. There are mild bilateral pleural effusion. 3. There is a drain over the right shoulder region. 4. Postsurgical change at the thoracolumbar region as described above. - Procedures Right shoulder consent for aspiration obtained. Time out performed. Right shoulder prepped sterilely with alcohol and betadine. Sterile gloves doned. Right shoulder aspirated and sent for gram stain, culture, crystals, and cell count. 30 cc of purulent drainage aspirated and sent to lab. sterile dressing applied. Patient tolerated procedure well. Assessment and Plan - Assessment and Plan Abscess right shoulder. History of lumbar spinal decompression and fusion with MRSA postop, remote Surgery: I&D right shoulder, POD #3 PLAN: IV antibiotics. Source of sepsis unclear. 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 Possible indolent infection that has developed an abscess of the right shoulder. We will defer to neurosurgery and other specialists for overall management. Continue drain. Consider removal over the next day or 2 depending on output of drainage. I explained to the family that a second I&D is sometimes necessary if swelling persists. Review of preop MRI scan showed extensive abscess of right shoulder, intra-articular, extra-articular, anterior and posterior. Albumin 1.6. If oral intake with nutrition not adequate, consider nasogastric feeding tube Stable orthopedically
--- NOTE | 2018-01-17 12:55 | P.PNID ---
Subjective Remarks: ID [facility] for . is an 82 y/o CM with prior back surgeries who now has following problems: s/p I+D R shoulder 4/4 blood clx with growth MRSA per family pt significantly improved after surgery He ate breakfast, he is alert and talks appropriately Antibiotics: vanco levaquin Lines: Line sites with no e.o infection Past Medical History: reviewed Allergies/Adverse Reactions: Allergies amoxicillin Allergy (Severe, Verified 01/13/18 20:44) Hives Objective Vital Signs 01/16/18 13:00 01/16/18 14:00 01/16/18 14:09 Temperature Pulse Rate 80 89 95 H Respiratory Rate 92 H 123 H 120 H Blood Pressure 120/60 Pulse Oximetry 91 L 93 L 94 L 01/16/18 15:00 01/16/18 16:00 01/16/18 16:09 Temperature 98.8 F Pulse Rate 79 80 78 Respiratory Rate 126 H 147 H 144 H Blood Pressure 116/55 L Pulse Oximetry 95 92 L 93 L 01/16/18 17:00 01/16/18 18:00 01/16/18 18:09 Temperature Pulse Rate 89 84 82 Respiratory Rate 20 18 22 Blood Pressure 121/65 Pulse Oximetry 98 98 98 01/16/18 19:00 01/16/18 20:00 01/16/18 20:09 Temperature 98.3 F Pulse Rate 87 89 90 Respiratory Rate 22 22 Blood Pressure 139/73 Pulse Oximetry 97 97 96 01/16/18 21:00 01/16/18 22:00 01/16/18 22:09 Temperature Pulse Rate 84 79 80 Respiratory Rate 22 17 23 Blood Pressure 124/74 Pulse Oximetry 99 96 96 01/16/18 23:00 01/17/18 00:00 01/17/18 00:09 Temperature 98 F Pulse Rate 78 81 82 Respiratory Rate 20 19 19 Blood Pressure 132/70 Pulse Oximetry 95 96 96 01/17/18 01:00 01/17/18 01:37 01/17/18 02:00 Temperature Pulse Rate 85 79 Respiratory Rate 21 16 21 Blood Pressure Pulse Oximetry 98 96 01/17/18 02:04 01/17/18 02:09 01/17/18 03:00 Temperature Pulse Rate 79 78 Respiratory Rate 15 18 20 Blood Pressure 127/76 Pulse Oximetry 96 97 01/17/18 04:00 01/17/18 04:09 01/17/18 05:00 Temperature 97.6 F Pulse Rate 75 74 75 Respiratory Rate 22 20 18 Blood Pressure 128/68 Pulse Oximetry 96 95 95 01/17/18 05:26 01/17/18 06:00 01/17/18 06:09 Temperature Pulse Rate 71 72 Respiratory Rate 18 16 147 H Blood Pressure 134/75 Pulse Oximetry 96 96 01/17/18 07:00 01/17/18 08:00 01/17/18 08:09 Temperature 97.7 F Pulse Rate 86 78 76 Respiratory Rate 129 H 133 H 127 H Blood Pressure 145/70 H Pulse Oximetry 96 97 97 01/17/18 09:00 Temperature Pulse Rate 77 Respiratory Rate 129 H Blood Pressure Pulse Oximetry Intake & Output 01/16/18 01/17/18 01/17/18 18:59 06:59 18:59 Intake Total 1165 / 1165 400 / 400 Output Total 60 / 60 Balance 1105 / 1105 400 / 400 Weight 73.3 kg Intake: IV 515 / 515 Vancomycin Inj 1,500 MG In NS 515 / 515 Inj 500 ML @ 250 mls/hr IV.SIG Q36H [facility] Rx#:[id number] Oral 650 / 650 400 / 400 Output: Wound Drainage 60 / 60 # 1 Right Shoulder 60 / 60 Other: # Voids 5 6 Date of Last Bowel Movement 01/13/18 01/13/18 01/13/18 01/14/18 19:08 Fluid - Synovial Fluid Gram Stain - Final 01/14/18 19:08 Fluid - Synovial Fluid Body Fluid Culture - Preliminary S. aureus MRSA Staphylococcus species 01/14/18 02:34 Blood - Peripheral Aerobic Blood Culture - Final S. aureus MRSA 01/14/18 02:34 Blood - Peripheral Anaerobic Blood Culture - Final S. aureus MRSA 01/14/18 02:30 Blood - Peripheral Aerobic Blood Culture - Final S. aureus MRSA 01/14/18 02:30 Blood - Peripheral Anaerobic Blood Culture - Final S. aureus MRSA 01/15/18 18:25 Wound - Shoulder Gram Stain - Final 01/15/18 18:25 Wound - Shoulder Wound Culture - Preliminary 01/15/18 18:25 Wound - Shoulder Gram Stain - Final 01/15/18 18:25 Wound - Shoulder Wound Culture - Preliminary 01/15/18 18:25 Wound - Shoulder Fungal Smear - Final No fungal elements seen 01/15/18 18:25 Wound - Shoulder Fungal Culture - Pending 01/15/18 18:25 Wound - Shoulder Fungal Smear - Final No fungal elements seen 01/15/18 18:25 Wound - Shoulder Fungal Culture - Pending 01/15/18 18:25 Wound - Shoulder Acid Fast Bacilli Smear - Pending 01/15/18 18:25 Wound - Shoulder Mycobacterial Culture - Pending 01/15/18 18:25 Wound - Shoulder Acid Fast Bacilli Smear - Pending 01/15/18 18:25 Wound - Shoulder Mycobacterial Culture - Pending 01/13/18 21:20 Clean Catch Urine Urine Culture - Final 50-100,000 cfu/mL mixed cecilia (probable contaminants ) Lab - Hematology Results 01/16/18 05:40 WBC 8.2 RBC 3.12 L Hgb 8.2 L Hct 26.2 L MCV 83.9 MCH 26.1 L MCHC 31.1 L RDW 19.0 H Plt Count 171 MPV 7.7 Neut % (Auto) 94.2 H Lymph % (Auto) 3.2 L Davidson % (Auto) 2.5 Eos % (Auto) 0.0 Baso % (Auto) 0.1 Neut # (Auto) 7.7 Lymph # (Auto) 0.3 L Davidson # (Auto) 0.2 Eos # (Auto) 0.0 Baso # (Auto) 0.0 WBC Differential . Differential Comment Auto diff final Lab - Chemistry Results 01/15/18 01/16/18 01/17/18 11:44 05:40 05:12 Sodium 141 141 Potassium 4.2 4.1 Chloride 109 H 107 Carbon Dioxide 25.7 27.2 Anion Gap 6 7 BUN 42 H 50 H Creatinine 1.51 H 1.76 H Estimated GFR 45 L 37 L Random Glucose 74 246 H D Calcium 7.5 L 7.6 L Magnesium 1.7 Total Bilirubin 0.2 AST 10 L ALT 17 Alkaline Phosphatase 89 Total Protein 4.9 L D Total Protein (PEP) 4.3 L Albumin 1.6 L Imaging: ITS Impressions Abdomen/Pelvis CT 01/13/18 20:43 CONCLUSION: 1. Marked prostate enlargement. 2. Air-filled distention of sigmoid colon. 3. Cardiomegaly. Small bilateral pleural effusions. 4. Diffuse atherosclerotic disease and arterial calcification. 5. Old insufficiency type fractures of the left side of the sacrum and left- sided pubic rami. Chest X-Ray 01/13/18 20:43 CONCLUSION: Clear lungs. Possible compression deformity at the thoracolumbar junction age indeterminate. Cervical Spine MRI 01/14/18 00:00 CONCLUSION: 1. Examination is degraded by motion artifact. 2. Partial visualization of a mass involving the left supraclavicular region measuring 5.[address] scan of the soft tissues of the neck with IV contrast to further assess if the patient can't hold still for that exam. 3. Diffuse degenerative changes as detailed at each level in the above discussion. Head MRI 01/14/18 00:00 CONCLUSION: 1. No acute intracranial abnormality. 2. Encephalomalacia involving the left frontal lobe. Lumbar Spine MRI 01/14/18 00:00 CONCLUSION: 1. Posterior fusion from L1 to L5. This in combination with motion artifact degrades the study. 2. Central canal appears patent throughout its visualized extent. 3. Old T12 compression deformity. Shoulder MRI 01/14/18 00:00 CONCLUSION: 1. Large full-thickness chronic appearing rotator cuff tear as described. 2. Joint effusion which communicates with large periarticular fluid collections characteristic of periarticular ganglions and bursal fluid collections. Internal debris is identified within the fluid collections. 3. Denervation versus disuse atrophy of the periarticular musculature. 4. Glenohumeral subluxation characteristic of chronic rotator cuff tear. 5. Moderate arthropathy of the glenohumeral joint with remodeling, hyaline cartilage thinning and marginal spurring. 6. Advanced acromioclavicular degenerative disease with periarticular ganglion. 7. Torn biceps tendon. 8. A cortical cyst formation seen in the superolateral humeral head. 9. Periarticular loose bodies within the fluid collections. Sign Thoracic Spine MRI 01/14/18 00:00 CONCLUSION: 1. See the MRI of the cervical spine reported separately. 2. Orthopedic hardware at the thoracolumbar junction. 3. Patent central canal throughout. Head CT 01/14/18 00:31 CONCLUSION: 1. No acute intracranial findings. 2. 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 . Venous Doppler Study 01/14/18 09:20 CONCLUSION: 1. The study is negative for lower extremity deep venous thrombosis. Soft Tissue Neck CT 01/16/18 00:00 CONCLUSION: 1. Partially visualized fluid and gas collection deep to the left trapezius muscle in the posterior lower neck extending into the posterior thorax. Chest CT with contrast could be performed to image the remainder of the abnormality. Differential diagnosis includes abscess and hematoma. 2. Degenerative findings of the cervical spine. Chest CT 01/16/18 11:15 CONCLUSION: 1. Lobulated mass in the left supraclavicular region. It is most suggestive of a multi lobulated loculated abscess given the air within several of the masses. 2. Bibasilar areas of consolidation or atelectasis. There are mild bilateral pleural effusion. 3. There is a drain over the right shoulder region. 4. Postsurgical change at the thoracolumbar region as described above. Physical Exam: GENERAL: NAD SKIN: Warm and dry. No rash HEAD: Atraumatic. Normocephalic. EYES: Pupils equal and round. No scleral icterus. No injection or drainage. ENT: No nasal bleeding or discharge. Mucous membranes pink and moist. NECK: Trachea midline. No JVD. No palpable masses, but diffuse pain CARDIOVASCULAR: Regular rate and rhythm. nO murmurs RESPIRATORY: No accessory muscle use. Clear to auscultation. Breath sounds equal bilaterally. GASTROINTESTINAL: Abdomen soft, non-tender, nondistended. Hepatic and splenic margins not palpable. MUSCULOSKELETAL: Extremities without clubbing, cyanosis, or edema. No obvious deformities. + R shoulder post op dressing with drain, serosdang dc NEUROLOGICAL: awake, alert, non focal PSYCHIATRIC: camilo, cooperative Assessment and Plan - Plan High grade staph bacteremia 2 D echo neg R shoulder effusion , cw R shoulder septic arhtritis (GPC)- surgery today / I+ D UTI, recurrent recent ly used Bactrim - clx negative probably 2/2 prior abx use Chronic back pain with h/o L spine fusion and infection Encephalopathy - likely 2/2 sepsis (pt has 2 concomitant infections: UTI and septic R shoulder arthritis - improved with treatment L supraclavicular mass turned out to be abscess on CT his CT showed abscess extending to posterior thorax MR L spine with ? diskitis multiple rad studies were dw radiologist CT chest with contrast was rec'd, but since he got contrast this am, will do w/ o contrast Recs: continue vancomycin continue levaquin NM WBC* scan on Saturday dw CTS does not think abscess tracks down to thorax yet. He will see patient today. poonam ENT Trapezius muscle although in the neck area is beyond the scope of ENT surgeon practice per . General Surgery consulted based on surgery dept chart. poonam WEATHERIZATION SPECIALIST re: surgery consult. poonam multiple family member at b/s including daughter Time spent in excess of 60 mins in coordinating care with multiple specialists discussions. Poonam Timmons the case. id to cover this weekend for .
--- NOTE | 2018-01-17 13:52 | P.CON ---
History of Present Illness Service: CT Surgery Consult date: 01/17/18 Requesting Physician: Marlyn Tom Reason for Consult: Left neck abscess Primary Care Provider: Everton Velazquez MD Chief Complaint: weakness, fever, altered mental status History of Present Illness: 82-year-old male with a past medical history significant for hypertension, BPH and GERD presents to the emergency department for evaluation of altered mental status, fever, malaise. The patient just returned from [facility] where he was treated for 3 consecutive urinary tract infections over the last 45 days. Prior to leaving, the patient's daughter reports that he received a flu shot and there was concern for Guillain Monroy as the patient developed increasing weakness following the immunization. Prior to being immunized, the patient was able to ambulate with a cane and is currently nonambulatory. He has intermittent hallucinations and altered mental status. On his arrival from [facility] , the family noticed hand swelling, labored breathing, fever, fatigue/weakness and confusion. 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 He has recently had an I and D of the right shoulder for septic arthritis and has MRSA sepsis. He underwent chest CT which shows a fluid collection in the left supraclavicular area with some air bubbles consistent with an abscess. Review of Systems unobtainable due to mental condition PMFSH - History History Provided By: Family Member - Medical History Medical History: Medical History (Last Reviewed 01/17/18 @ 09:59 by Albertina Feldman) Atrial fibrillation History of MRSA infection Onset Date: ~01/14/18 BPH (benign prostatic hyperplasia) Depression HTN (hypertension) Hypothyroid PUD (peptic ulcer disease) - Surgical History Surgical History: Surgical History (Last Reviewed 01/17/18 @ 07:31 by Elizabeth Velez) H/O neck surgery - Family History Family History: Family History (Last Reviewed 01/16/18 @ 08:57 by Brina Hernandez) Other Family history normal - Social History I have reviewed the patient's Social History: Yes - Tobacco History Second Hand Smoke Exposure: No Tobacco Use In Past 30 Days: No Smoking Status: Former smoker Tobacco Type: Cigars - Alcohol History How Often Do You Have a Drink Containing Alcohol: Never - Substance Use History Substance History: No History of Abuse - Travel History Recent Travel in the [facility] Within the Last 8 Weeks: No Recent Travel Out of the Country Within the Last 8 Weeks: Yes - Immunization History Tetanus Immunization: Unsure Hx Influenza Vaccine This Season: Yes Medications and Allergies Active Medications: Active Medications Acetaminophen (Tylenol) 650 mg PO Q4H PRN PRN Reason: Temp > 100.4 Hydrocodone Bitart/Acetaminophen ([place] 5/325) 1 tab PO Q4H PRN PRN Reason: PAIN LESS THAN 5 ON SCALE Last Admin: 01/17/18 01:34 Dose: 1 tab Hydrocodone Bitart/Acetaminophen ([place] 5/325) 2 tab PO Q6H PRN PRN Reason: PAIN SCALE 5 TO 10 Al Hydroxide/Mg Hydroxide (Milk Of Magnesia Liq) 30 ml PO Q12H PRN PRN Reason: Mild Constipation Amlodipine Besylate (Norvasc) 5 mg PO DAILY [facility] Last Admin: 01/17/18 08:01 Dose: 5 mg Bisacodyl (Dulcolax Supp) 10 mg RECTAL DAILY PRN PRN Reason: SEVERE CONSITIPATION Citalopram Hydrobromide (Celexa) 20 mg PO DAILY [facility] Last Admin: 01/17/18 08:01 Dose: 20 mg Levofloxacin/Dextrose (Levaquin 750 Mg Premix Inj) 150 mls @ 100 mls/hr IV.SIG Q48H [facility] Last Infusion: 01/16/18 03:57 Dose: Infused Sodium Chloride (Ns Inj) 500 mls @ 30 mls/hr IV.SIG .Q10H [facility] Vancomycin HCl 1,500 mg/ (Sodium Chloride) 515 mls @ 250 mls/hr IV.SIG Q36H [facility] Last Infusion: 01/16/18 15:35 Dose: Infused Lactated Ringer's (Lr 1000 Ml Inj) 1,000 mls @ 80 mls/hr IV.CONT .[id number] [facility] Last Admin: 01/17/18 11:35 Dose: Not Given Lactulose (Lactulose Liq) 30 ml PO DAILY PRN PRN Reason: SEVERE CONSITIPATION Levothyroxine Sodium (Synthroid) 100 mcg PO DAILY@0600 [facility] Last Admin: 01/17/18 05:24 Dose: 100 mcg Metoprolol Succinate (Toprol Xl) 50 mg PO DAILY [facility] Last Admin: 01/17/18 08:01 Dose: 50 mg Morphine Sulfate (Morphine Inj) 2 mg IV.PUSH Q3H PRN PRN Reason: pain 1-10 when npo Last Admin: 01/17/18 08:35 Dose: 2 mg Ondansetron HCl (Zofran Inj) 4 mg IV.PUSH Q6H PRN PRN Reason: NAUSEA OR VOMITING Pantoprazole Sodium (Protonix) 20 mg PO DAILY [facility] Last Admin: 01/17/18 08:01 Dose: 20 mg Pharmacy Profile Note (Vancomycin Consult Pharmacy) 1 each OTHER UNSCH PRN PRN Reason: Pharmacy to dose Prednisone (Deltasone) 20 mg PO DAILY [facility] Last Admin: 01/17/18 08:01 Dose: 20 mg Senna/Docusate Sodium (Diana-Colace) 1 tab PO BID [facility] Last Admin: 01/17/18 08:01 Dose: 1 tab Sennosides (Senokot) 17.2 mg PO Q12H PRN PRN Reason: Moderate Constipation Sodium Chloride (Ns Flush) 2 ml IV.FLUSH BID [facility] Last Admin: 01/16/18 21:28 Dose: 2 ml Sodium Chloride (Ns Flush) 2 ml IV.FLUSH PRN PRN PRN Reason: FLUSH AFTER USING IV ACCESS Tamsulosin HCl (Flomax) 0.4 mg PO DAILY [facility] Last Admin: 01/17/18 08:02 Dose: 0.4 mg Allergies Allergy/AdvReac Type Severity Reaction Status Date / Time amoxicillin Allergy Severe Hives Verified 01/13/18 20:44 Home Medications Medication Instructions Recorded Confirmed Type amlodipine 5 mg PO DAILY 01/13/18 01/13/18 History citalopram 20 mg PO DAILY 01/13/18 01/13/18 History levothyroxine [Synthroid] 100 mcg PO DAILY 01/13/18 01/13/18 History lisinopril 10 mg PO DAILY 01/13/18 01/13/18 History metoprolol succinate 50 mg PO DAILY 01/13/18 01/13/18 History pantoprazole 20 mg PO DAILY 01/13/18 01/13/18 History prednisone 40 mg PO DAILY 01/13/18 01/13/18 History tamsulosin [Flomax] 0.4 mg PO DAILY 01/13/18 01/13/18 History Physical Exam Vital signs: Vital Signs 01/16/18 14:00 01/16/18 14:09 01/16/18 15:00 Temperature Pulse Rate 89 95 H 79 Respiratory Rate 123 H 120 H 126 H Blood Pressure 120/60 Pulse Oximetry 93 L 94 L 95 01/16/18 16:00 01/16/18 16:09 01/16/18 17:00 Temperature 98.8 F Pulse Rate 80 78 89 Respiratory Rate 147 H 144 H 20 Blood Pressure 116/55 L Pulse Oximetry 92 L 93 L 98 01/16/18 18:00 01/16/18 18:09 01/16/18 19:00 Temperature Pulse Rate 84 82 87 Respiratory Rate 18 22 22 Blood Pressure 121/65 Pulse Oximetry 98 98 97 01/16/18 20:00 01/16/18 20:09 01/16/18 21:00 Temperature 98.3 F Pulse Rate 89 90 84 Respiratory Rate 22 22 Blood Pressure 139/73 Pulse Oximetry 97 96 99 01/16/18 22:00 01/16/18 22:09 01/16/18 23:00 Temperature Pulse Rate 79 80 78 Respiratory Rate 17 23 20 Blood Pressure 124/74 Pulse Oximetry 96 96 95 01/17/18 00:00 01/17/18 00:09 01/17/18 01:00 Temperature 98 F Pulse Rate 81 82 85 Respiratory Rate 19 19 21 Blood Pressure 132/70 Pulse Oximetry 96 96 98 01/17/18 01:37 01/17/18 02:00 01/17/18 02:04 Temperature Pulse Rate 79 Respiratory Rate 16 21 15 Blood Pressure Pulse Oximetry 96 01/17/18 02:09 01/17/18 03:00 01/17/18 04:00 Temperature Pulse Rate 79 78 75 Respiratory Rate 18 20 22 Blood Pressure 127/76 Pulse Oximetry 96 97 96 01/17/18 04:09 01/17/18 05:00 01/17/18 05:26 Temperature 97.6 F Pulse Rate 74 75 Respiratory Rate 20 18 18 Blood Pressure 128/68 Pulse Oximetry 95 95 01/17/18 06:00 01/17/18 06:09 01/17/18 07:00 Temperature Pulse Rate 71 72 86 Respiratory Rate 16 147 H 129 H Blood Pressure 134/75 Pulse Oximetry 96 96 96 01/17/18 08:00 01/17/18 08:09 01/17/18 09:00 Temperature 97.7 F Pulse Rate 78 76 77 Respiratory Rate 133 H 127 H 129 H Blood Pressure 145/70 H Pulse Oximetry 97 97 Intake & Output 01/16/18 01/17/18 01/17/18 18:59 06:59 18:59 Intake Total 1165 / 1165 400 / 400 Output Total 60 / 60 Balance 1105 / 1105 400 / 400 Weight 73.3 kg Intake: IV 515 / 515 Vancomycin Inj 1,500 MG In NS 515 / 515 Inj 500 ML @ 250 mls/hr IV.SIG Q36H [facility] Rx#:[id number] Oral 650 / 650 400 / 400 Output: Wound Drainage # 1 Right Shoulder Other: # Voids 5 6 Date of Last Bowel Movement 01/13/18 01/13/18 01/13/18 - Constitutional chronically ill appearing - Routine HEENT Exam Head: Present: normocephalic, atraumatic Eye: Present: EOMI, PERRL ENT: Present: mucous membranes moist - Routine Neck Exam Present: supple, tenderness Comments: mildly tender when palpating the left neck and supraclavicular fossa - Detailed Chest Wall Exam Comments: slight fullness deep in the left supraclavicular fossa with mild tenderness. no erythema or induration - Routine Respiratory Exam Present: diminished air movement - Routine Cardiovascular Exam Present: RRR - Routine Abdominal Exam Present: soft, normoactive bowel sounds - Routine Extremities Exam Absent: cyanosis, clubbing, edema - Routine Skin Exam Present: intact - Routine Neurological Exam Present: sensory deficit, motor deficit, altered mental status - Detailed Neurological Exam: Coma Scale Eye Opening: Spontaneous Verbal Response: Confused - Routine Psychiatric Exam Present: unable to assess Results - Labs CBC & Chem 7: 01/16/18 05:40 01/17/18 05:12 Labs: Laboratory Results - last 24 hr 01/17/18 05:12 Sodium 141 Potassium 4.1 Chloride 107 Carbon Dioxide 27.2 Anion Gap 7 BUN 50 H Creatinine 1.76 H Estimated GFR 37 L Random Glucose 246 H D Calcium 7.6 L Total Bilirubin 0.2 AST 10 L ALT 17 Alkaline Phosphatase 89 Total Protein 4.9 L D Albumin 1.6 L Assessment and Plan - Assessment (1) Sepsis Code(s): A41.9 - Sepsis, unspecified organism Status: Acute (2) Supraclavicular fossa fullness Code(s): R22.2 - Localized swelling, mass and lump, trunk Status: Acute - Plan Complex 82y/o male with multiple acute medical issues including MRSA sepsis involving multiple sites. He likely has an abscess in the left neck, supraclavicular fossa medially and is s/p I and d of the right shoulder. He also has involvement in the urinary tract. he has been on relatively high- doses of prednisone and immunocompromised as a result with significant anemia and relative leukopenia given the left shift in the differential. He also is significantly debilitated with lower extremity weakness and is non-ambulatory. He would benefit from drainage of this abscess which may be achieved percutaneously or opened surgically. His operative risk is high secondary to his acute issues and comorbidities. Dr. Morales informed me Dr. Breen, a general surgeon, would be seeing him shortly for his opinion. The patient is hemodynamically stable at this time and I do not see any indication for emergent intervention. (1) Sepsis Qualifiers: Sepsis type: methicillin resistant Staphylococcus aureus Qualified Code(s): A41.02 - Sepsis due to Methicillin resistant Staphylococcus aureus
--- NOTE | 2018-01-17 14:23 | P.PNNS ---
Subjective Interval history: This is a 82-year-old male with history of arterial hypertension, BPH and GERD presents to the emergency department for evaluation of altered mental status. The patient just returned from [place] where he was treated for 3 consecutive urinary tract infections over the last 45 days. Prior to leaving, the patient received a flu shot, and there was concern for Guyon Monroy as the patient developed increasing weakness following the immunization. Prior to being immunized, he was able to ambulate with a cane. No falls or head injury. The patient is nonambulatory. He has intermittent hallucinations and altered mental status. His family noticed hand swelling, labored breathing, fever, fatigue/weakness and confusion. During his hospitalization in [place] there was also discussion of possible renal and liver biopsies with concern for amyloidosis or possible multiple myeloma. No fevers/chills. No chest pain or shortness of breath although the patient's family notes labored breathing. No abdominal pain. No nausea/vomiting/diarrhea. No lateralizing signs/symptoms. 01/15 Neurologicvally stable overnight, afebrile 01/17. Alert and awake. No focal motor or sensory deficits. He is status post surgery on right shoulder. Ct of the neck done Physical Exam Vital signs: Vital Signs 01/16/18 15:00 01/16/18 16:00 01/16/18 16:09 Temperature 98.8 F Pulse Rate 79 80 78 Respiratory Rate 126 H 147 H 144 H Blood Pressure 116/55 L Pulse Oximetry 95 92 L 93 L 01/16/18 17:00 01/16/18 18:00 01/16/18 18:09 Temperature Pulse Rate 89 84 82 Respiratory Rate 20 18 22 Blood Pressure 121/65 Pulse Oximetry 98 98 98 01/16/18 19:00 01/16/18 20:00 01/16/18 20:09 Temperature 98.3 F Pulse Rate 87 89 90 Respiratory Rate 22 22 Blood Pressure 139/73 Pulse Oximetry 97 97 96 01/16/18 21:00 01/16/18 22:00 01/16/18 22:09 Temperature Pulse Rate 84 79 80 Respiratory Rate 22 17 23 Blood Pressure 124/74 Pulse Oximetry 99 96 96 01/16/18 23:00 01/17/18 00:00 01/17/18 00:09 Temperature 98 F Pulse Rate 78 81 82 Respiratory Rate 20 19 19 Blood Pressure 132/70 Pulse Oximetry 95 96 96 01/17/18 01:00 01/17/18 01:37 01/17/18 02:00 Temperature Pulse Rate 85 79 Respiratory Rate 21 16 21 Blood Pressure Pulse Oximetry 98 96 01/17/18 02:04 01/17/18 02:09 01/17/18 03:00 Temperature Pulse Rate 79 78 Respiratory Rate 15 18 20 Blood Pressure 127/76 Pulse Oximetry 96 97 01/17/18 04:00 01/17/18 04:09 01/17/18 05:00 Temperature 97.6 F Pulse Rate 75 74 75 Respiratory Rate 22 20 18 Blood Pressure 128/68 Pulse Oximetry 96 95 95 01/17/18 05:26 01/17/18 06:00 01/17/18 06:09 Temperature Pulse Rate 71 72 Respiratory Rate 18 16 147 H Blood Pressure 134/75 Pulse Oximetry 96 96 01/17/18 07:00 01/17/18 08:00 01/17/18 08:09 Temperature 97.7 F Pulse Rate 86 78 76 Respiratory Rate 129 H 133 H 127 H Blood Pressure 145/70 H Pulse Oximetry 96 97 97 01/17/18 09:00 01/17/18 10:00 01/17/18 10:09 Temperature Pulse Rate 77 71 73 Respiratory Rate 129 H 108 H 92 H Blood Pressure 109/65 Pulse Oximetry 01/17/18 11:00 01/17/18 12:00 01/17/18 12:09 Temperature 97.7 F Pulse Rate 80 71 76 Respiratory Rate 127 H 122 H 128 H Blood Pressure 123/68 Pulse Oximetry 75 L 94 L 01/17/18 13:00 Temperature Pulse Rate 73 Respiratory Rate 138 H Blood Pressure Pulse Oximetry 95 Intake & Output 01/16/18 01/17/18 01/17/18 18:59 06:59 18:59 Intake Total 1165 / 1165 400 / 400 Output Total 60 / 60 Balance 1105 / 1105 400 / 400 Weight 73.3 kg Intake: IV 515 / 515 Vancomycin Inj 1,500 MG In NS 515 / 515 Inj 500 ML @ 250 mls/hr IV.SIG Q36H CH[facility]O Rx#:[id number] Oral 650 / 650 400 / 400 Output: Wound Drainage 60 / 60 # 1 Right Shoulder 60 / 60 Other: # Voids 5 6 Date of Last Bowel Movement 01/13/18 01/13/18 01/13/18 Narrative: Mr Lujan is alert, awake. Comfortable, in no acute distress. ZOEY drain in his right shoulder Fluctuating mass on the left side at the base of his neck Cranial nerve examination: pupils to be equal, round and reactive to light. Extra-ocular movements are intact. Facial motor and sensory function are normal and symmetrical. Gross hearing appears intact. Sternocleidomastoid and trapezius muscles are symmetrical. Other cranial nerves are intact. Neck is soft and supple with a good range of motion without pain. Muscle strength is decreased in all muscle groups of both upper and lower extremities. Difficulty with full arm abduction above the shoulder due to shoulder arthritis/bursitis. Strenght 3/5 proximal and 4/5 distal muscle groups Sensory examination is intact to light touch and pin prick in both the upper and lower extremities. Deep tendon reflexes are 1-2+symmetrical in both upper and lower extremities. There is a bilateral plantar flexion response. No clonus Cerebellar examination is unremarkable, without deficits. Lungs are clear Heart regular rhythm is regular rate Skin warm and dry - Urinary Catheter Management Condom Cath placed during this visit: no Assessment and Plan - Plan 82 year old male 1. MRSA septicemia 2. Right shoulder effusion 3. Urinary tract infection. 4. Rule out Guillian barre syndrome 5. Rule out malignancy in his neck Neuro: neuro checks in a serial fashion. I reviewed his CT of the neck. The mass is suggestive of an abscess, likely secondary to the righty shoulder infection. I recommend orthopedic surgery to evacuate. If they refuse, consult general surgery Sepsis. 2D echocardiogram did not show vegetations. he may need JUSTIN. We will follow-up with cardiology further recommendations to rule out endicarditis. Right shoulder effusion, orthopedics aspirated the shoulder which grew approximately 30 cc of purulent fluid. Plan is to have the patient go to the OR today for drainage of that right septic shoulder. Left supraclavicular mass. CT Neck with contrast to rule out malignancy BPH. Continue Flomax. Pulmonary: aggressive pulmonary toilette, nasotracheal suction, and breathing treatments with nebulizers. Daily PT and OT Renal: elevated serum creatinine of 1.64. Likely KEKE. Currently on IV fluids, serum creatinine to be monitored closely, urine output, BUN and creatinine Endocrine: Monitor serial Acu checks and SSI as needed in detail ID IV angtibiotics for sepsis vancomycin, aztreonam, Levaquin. We will follow- up repeat blood cultures. ID consultation Protonix for stress ulcer prophylaxis Randolph gaona and SCD's for DVT prophylaxis
--- NOTE | 2018-01-17 15:21 | P.PN ---
Subjective Interval history: The patient is in bed he appears sleepy and tired. Says he was not able to sleep all night until the morning. He also had some pain during the night mainly and at his right shoulder. No nausea or vomiting. With decreased appetite not eating much. No fever or chills overnight. Physical Exam Vital signs: Vital Signs 01/16/18 16:00 01/16/18 16:09 01/16/18 17:00 Temperature 98.8 F Pulse Rate 80 78 89 Respiratory Rate 147 H 144 H 20 Blood Pressure 116/55 L Pulse Oximetry 92 L 93 L 98 01/16/18 18:00 01/16/18 18:09 01/16/18 19:00 Temperature Pulse Rate 84 82 87 Respiratory Rate 18 22 22 Blood Pressure 121/65 Pulse Oximetry 98 98 97 01/16/18 20:00 01/16/18 20:09 01/16/18 21:00 Temperature 98.3 F Pulse Rate 89 90 84 Respiratory Rate 22 22 Blood Pressure 139/73 Pulse Oximetry 97 96 99 01/16/18 22:00 01/16/18 22:09 01/16/18 23:00 Temperature Pulse Rate 79 80 78 Respiratory Rate 17 23 20 Blood Pressure 124/74 Pulse Oximetry 96 96 95 01/17/18 00:00 01/17/18 00:09 01/17/18 01:00 Temperature 98 F Pulse Rate 81 82 85 Respiratory Rate 19 19 21 Blood Pressure 132/70 Pulse Oximetry 96 96 98 01/17/18 01:37 01/17/18 02:00 01/17/18 02:04 Temperature Pulse Rate 79 Respiratory Rate 16 21 15 Blood Pressure Pulse Oximetry 96 01/17/18 02:09 01/17/18 03:00 01/17/18 04:00 Temperature Pulse Rate 79 78 75 Respiratory Rate 18 20 22 Blood Pressure 127/76 Pulse Oximetry 96 97 96 01/17/18 04:09 01/17/18 05:00 01/17/18 05:26 Temperature 97.6 F Pulse Rate 74 75 Respiratory Rate 20 18 18 Blood Pressure 128/68 Pulse Oximetry 95 95 01/17/18 06:00 01/17/18 06:09 01/17/18 07:00 Temperature Pulse Rate 71 72 86 Respiratory Rate 16 147 H 129 H Blood Pressure 134/75 Pulse Oximetry 96 96 96 01/17/18 08:00 01/17/18 08:09 01/17/18 09:00 Temperature 97.7 F Pulse Rate 78 76 77 Respiratory Rate 133 H 127 H 129 H Blood Pressure 145/70 H Pulse Oximetry 97 97 01/17/18 10:00 01/17/18 10:09 01/17/18 11:00 Temperature Pulse Rate 71 73 80 Respiratory Rate 108 H 92 H 127 H Blood Pressure 109/65 Pulse Oximetry 01/17/18 12:00 01/17/18 12:09 01/17/18 13:00 Temperature 97.7 F Pulse Rate 71 76 73 Respiratory Rate 122 H 128 H 138 H Blood Pressure 123/68 Pulse Oximetry 75 L 94 L 95 Intake & Output 01/16/18 01/17/18 01/17/18 18:59 06:59 18:59 Intake Total 1165 / 1165 400 / 400 Output Total 60 / 60 Balance 1105 / 1105 400 / 400 Weight 73.3 kg Intake: IV 515 / 515 Vancomycin Inj 1,500 MG In NS 515 / 515 Inj 500 ML @ 250 mls/hr IV.SIG Q36H [facility] Rx#:[id number] Oral 650 / 650 400 / 400 Output: Wound Drainage 60 / 60 # 1 Right Shoulder 60 / 60 Other: # Voids 5 6 Date of Last Bowel Movement 01/13/18 01/13/18 01/13/18 Narrative: GENERAL: Pleasant elderly male in bed appears chronically ill, well-developed well-nourished, appears in not acute distress at this time. CARDIOVASCULAR: Regular rate and rhythm without murmurs, gallops, or rubs. RESPIRATORY: Breath sounds equal bilaterally. No accessory muscle use. GASTROINTESTINAL: Abdomen soft, non-tender, nondistended. MUSCULOSKELETAL: Left supraclavicular mass, slightly tender to palpation. Swelling at the right shoulder. No cyanosis. NEURO: Alert and oriented. Sleepy. Moves extremities no focal deficit. Results - Labs CBC & Chem 7: 01/16/18 05:40 01/17/18 05:12 Laboratory Results - last 24 hr 01/17/18 05:12 Sodium 141 Potassium 4.1 Chloride 107 Carbon Dioxide 27.2 Anion Gap 7 BUN 50 H Creatinine 1.76 H Estimated GFR 37 L Random Glucose 246 H D Calcium 7.6 L Total Bilirubin 0.2 AST 10 L ALT 17 Alkaline Phosphatase 89 Total Protein 4.9 L D Albumin 1.6 L Microbiology 01/15/18 18:25 Wound - Shoulder Gram Stain - Final 01/15/18 18:25 Wound - Shoulder Wound Culture - Preliminary S. aureus MRSA Staphylococcus species 01/15/18 18:25 Wound - Shoulder Gram Stain - Final 01/15/18 18:25 Wound - Shoulder Wound Culture - Preliminary S. aureus MRSA Staphylococcus species 01/15/18 18:25 Wound - Shoulder Fungal Smear - Final No fungal elements seen 01/14/18 19:08 Fluid - Synovial Fluid Gram Stain - Final 01/14/18 19:08 Fluid - Synovial Fluid Body Fluid Culture - Preliminary S. aureus MRSA Staphylococcus species 01/14/18 02:34 Blood - Peripheral Aerobic Blood Culture - Final S. aureus MRSA 01/14/18 02:34 Blood - Peripheral Anaerobic Blood Culture - Final S. aureus MRSA 01/14/18 02:30 Blood - Peripheral Aerobic Blood Culture - Final S. aureus MRSA 01/14/18 02:30 Blood - Peripheral Anaerobic Blood Culture - Final S. aureus MRSA - Procedures Right shoulder consent for aspiration obtained. Time out performed. Right shoulder prepped sterilely with alcohol and betadine. Sterile gloves doned. Right shoulder aspirated and sent for gram stain, culture, crystals, and cell count. 30 cc of purulent drainage aspirated and sent to lab. sterile dressing applied. Patient tolerated procedure well. Assessment and Plan - Plan Pleasant 82 old male with hypertension, BPH, gastroesophageal reflux disease. The patient was brought in with acute encephalopathy. Recently he returned from [place] where he was treated for 3 consecutive urinary tract infections over the past 45 days. There is also concern for Guillain Monroy because he recently got a flu shot and then had weakness in his extremities after receiving the vaccination. After evaluation the patient was found to have right shoulder swelling and erythema. Patient was having low-grade fevers. Blood cultures came back positive for MRSA, and his right shoulder was also evaluated and then aspirated by the orthopedic surgery team. MRSA septicemia, septic right shoulder, L spine diskitis, left supraclavicular abscess Right shoulder effusion. septic right shoulder, s/p I&D Urinary tract infection. 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 Taper steroid Patient has been afebrile . Vital signs are fairly stable Blood cultures positive for MRSA. 2D echocardiogram did not show any findings consistent with vegetations. Patient may need JUSTIN. Continue vancomycin, Levaquin Patient also had a right shoulder effusion, orthopedics aspirated the shoulder which grew approximately 30 cc of purulent fluid. had follow-up with orthopedics for their recommendations drainage of that right shoulder. Continue IV antibiotics per infectious disease recommendations. Infectious disease following repeat blood cultures ntd Cardiothoracic surgeon was consulted for evaluation of supraclavicular mass/ poss abscess Plan for [place] WBC scan on Saturday Neurology, ID, hem onc ff. CTS consulted. KEKE on CKD. Noted elevated serum creatinine of 1.64. Likely KEKE on CKD. 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 Will add ensure with meals. Consult director of vendor management. BPH - Continue Flomax. DVT prophylaxis per surgeon Discussed with the patient, family very supportive at bedside, nurse, Dr Morales ID specialist.
--- NOTE | 2018-01-17 16:08 | P.CONNP ---
History of Present Illness Service: Nephrology Consult date: 01/17/18 Requesting Physician: Marcelina Arreaga Reason for Consult: ARF/CKD Primary Care Provider: Everton Velazquez MD Chief Complaint: weakness, fever, altered mental status History of Present Illness: Patient is a 82-year-old male who has chronic kidney disease, I have seen him in May 2016, at that time he was sick and just returned from [place],, he had acute renal failure while there and required dialysis due to medication induced acute tubular necrosis, he then improved and got admitted last year, he has been doing well but developed right shoulder pain and then subsequently found to have an abscess he underwent surgical drainage and now the creatinine is 1.7 , his baseline creatinine around 1.5, 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 Review of Systems Constitutional: Reports body ache(s), Reports fatigue, Reports fever(s) Eyes: Denies blind spots, Denies blurry vision, Denies bulging eyes, Denies change in vision, Denies double vision, Denies discharge, Denies dry eyes, Denies floaters, Denies irritation, Denies itchy eyes, Denies loss of vision, Denies pain, Denies requires corrective lenses, Denies sensitivity to light, Denies other Ears, Nose, Mouth, and Throat: Reports abnormal hearing Respiratory: Denies change in phlegm color, Denies chest congestion, Denies cough, Denies coughing up blood, Denies excessive phlegm production, Denies pain on inspiration, Denies pain with cough, Denies shortness of breath, Denies shortness of breath with activity, Denies snoring, Denies stridor, Denies wheezing, Denies other Gastrointestinal: Denies abdominal pain, Denies belching, Denies black, tarry stools, Denies bloating, Denies bright, red blood in stools, Denies change in bowel habits, Denies constant urge to pass stool, Denies change in stools, Denies coffee ground vomit, Denies constipation, Denies cramping, Denies difficulty swallowing, Denies excessive passing of gas, Denies feeling full early, Denies heartburn, Denies incontinent of stools, Denies loose stools, Denies nausea, Denies pain with swallowing, Denies vomiting, Denies vomiting blood, Denies other Musculoskeletal: Reports abnormal walking, Reports radiating pain into limb Neurologic: Reports weakness Endocrine: Denies cold intolerance, Denies excessive sweating, Denies flushing, Denies heat intolerance, Denies increased hunger, Denies increased thirst, Denies increased urination, Denies rapid, pounding, or irregular heartbeat, Denies other Hematologic/Lymphatic: Denies easy bleeding, Denies easy bruising, Denies enlarged lymph nodes, Denies other PMFSH - History History Provided By: Family Member - Medical History Medical History: Medical History (Last Reviewed 01/17/18 @ 16:07 by Seun Triana MD) Atrial fibrillation History of MRSA infection Onset Date: ~01/14/18 BPH (benign prostatic hyperplasia) Depression HTN (hypertension) Hypothyroid PUD (peptic ulcer disease) - Surgical History Surgical History: Surgical History (Last Reviewed 01/17/18 @ 16:07 by Seun Triana MD) H/O neck surgery - Family History Family History: Family History (Last Reviewed 01/17/18 @ 16:07 by Seun Triana MD) Other Family history normal - Tobacco History Second Hand Smoke Exposure: No Tobacco Use In Past 30 Days: No Smoking Status: Former smoker Tobacco Type: Cigars - Alcohol History How Often Do You Have a Drink Containing Alcohol: Never - Substance Use History Substance History: No History of Abuse - Travel History Recent Travel in the [place] Within the Last 8 Weeks: No Recent Travel Out of the Country Within the Last 8 Weeks: Yes - Immunization History Tetanus Immunization: Unsure Hx Influenza Vaccine This Season: Yes Medications and Allergies Active Medications: Active Medications Acetaminophen (Tylenol) 650 mg PO Q4H PRN PRN Reason: Temp > 100.4 Hydrocodone Bitart/Acetaminophen ([place] 5/325) 1 tab PO Q4H PRN PRN Reason: PAIN LESS THAN 5 ON SCALE Last Admin: 01/17/18 01:34 Dose: 1 tab Hydrocodone Bitart/Acetaminophen ([place] 5/325) 2 tab PO Q6H PRN PRN Reason: PAIN SCALE 5 TO 10 Al Hydroxide/Mg Hydroxide (Milk Of Magnesia Liq) 30 ml PO Q12H PRN PRN Reason: Mild Constipation Amlodipine Besylate (Norvasc) 5 mg PO DAILY [facility] Last Admin: 01/17/18 08:01 Dose: 5 mg Bisacodyl (Dulcolax Supp) 10 mg RECTAL DAILY PRN PRN Reason: SEVERE CONSITIPATION Citalopram Hydrobromide (Celexa) 20 mg PO DAILY [facility] Last Admin: 01/17/18 08:01 Dose: 20 mg Levofloxacin/Dextrose (Levaquin 750 Mg Premix Inj) 150 mls @ 100 mls/hr IV.SIG Q48H [facility] Last Infusion: 01/16/18 03:57 Dose: Infused Sodium Chloride (Ns Inj) 500 mls @ 30 mls/hr IV.SIG .Q10H [facility] Vancomycin HCl 1,500 mg/ (Sodium Chloride) 515 mls @ 250 mls/hr IV.SIG Q36H [facility] Last Infusion: 01/16/18 15:35 Dose: Infused Lactated Ringer's (Lr 1000 Ml Inj) 1,000 mls @ 80 mls/hr IV.CONT .[id number] [facility] Last Admin: 01/17/18 11:35 Dose: Not Given Lactulose (Lactulose Liq) 30 ml PO DAILY PRN PRN Reason: SEVERE CONSITIPATION Levothyroxine Sodium (Synthroid) 100 mcg PO DAILY@0600 [facility] Last Admin: 01/17/18 05:24 Dose: 100 mcg Melatonin (Melatonin) 5 mg PO HS [facility] Metoprolol Succinate (Toprol Xl) 50 mg PO DAILY [facility] Last Admin: 01/17/18 08:01 Dose: 50 mg Morphine Sulfate (Morphine Inj) 2 mg IV.PUSH Q3H PRN PRN Reason: pain 1-10 when npo Last Admin: 01/17/18 08:35 Dose: 2 mg Ondansetron HCl (Zofran Inj) 4 mg IV.PUSH Q6H PRN PRN Reason: NAUSEA OR VOMITING Pantoprazole Sodium (Protonix) 20 mg PO DAILY [facility] Last Admin: 01/17/18 08:01 Dose: 20 mg Pharmacy Profile Note (Vancomycin Consult Pharmacy) 1 each OTHER UNSCH PRN PRN Reason: Pharmacy to dose Prednisone (Deltasone) 20 mg PO DAILY [facility] Last Admin: 01/17/18 08:01 Dose: 20 mg Senna/Docusate Sodium (Diana-Colace) 1 tab PO BID [facility] Last Admin: 01/17/18 08:01 Dose: 1 tab Sennosides (Senokot) 17.2 mg PO Q12H PRN PRN Reason: Moderate Constipation Sodium Chloride (Ns Flush) 2 ml IV.FLUSH BID [facility] Last Admin: 01/16/18 21:28 Dose: 2 ml Sodium Chloride (Ns Flush) 2 ml IV.FLUSH PRN PRN PRN Reason: FLUSH AFTER USING IV ACCESS Tamsulosin HCl (Flomax) 0.4 mg PO DAILY [facility] Last Admin: 01/17/18 08:02 Dose: 0.4 mg Temazepam (Restoril) 7.5 mg PO [facility] Allergies Allergy/AdvReac Type Severity Reaction Status Date / Time amoxicillin Allergy Severe Hives Verified 01/13/18 20:44 Home Medications Medication Instructions Recorded Confirmed Type amlodipine 5 mg PO DAILY 01/13/18 01/13/18 History citalopram 20 mg PO DAILY 01/13/18 01/13/18 History levothyroxine [Synthroid] 100 mcg PO DAILY 01/13/18 01/13/18 History lisinopril 10 mg PO DAILY 01/13/18 01/13/18 History metoprolol succinate 50 mg PO DAILY 01/13/18 01/13/18 History pantoprazole 20 mg PO DAILY 01/13/18 01/13/18 History prednisone 40 mg PO DAILY 01/13/18 01/13/18 History tamsulosin [Flomax] 0.4 mg PO DAILY 01/13/18 01/13/18 History Exam Vital signs: Vital Signs 01/16/18 16:00 01/16/18 16:09 01/16/18 17:00 Temperature 98.8 F Pulse Rate 80 78 89 Respiratory Rate 147 H 144 H 20 Blood Pressure 116/55 L Pulse Oximetry 92 L 93 L 98 01/16/18 18:00 01/16/18 18:09 01/16/18 19:00 Temperature Pulse Rate 84 82 87 Respiratory Rate 18 22 22 Blood Pressure 121/65 Pulse Oximetry 98 98 97 01/16/18 20:00 01/16/18 20:09 01/16/18 21:00 Temperature 98.3 F Pulse Rate 89 90 84 Respiratory Rate 22 22 Blood Pressure 139/73 Pulse Oximetry 97 96 99 01/16/18 22:00 01/16/18 22:09 01/16/18 23:00 Temperature Pulse Rate 79 80 78 Respiratory Rate 17 23 20 Blood Pressure 124/74 Pulse Oximetry 96 96 95 01/17/18 00:00 01/17/18 00:09 01/17/18 01:00 Temperature 98 F Pulse Rate 81 82 85 Respiratory Rate 19 19 21 Blood Pressure 132/70 Pulse Oximetry 96 96 98 01/17/18 01:37 01/17/18 02:00 01/17/18 02:04 Temperature Pulse Rate 79 Respiratory Rate 16 21 15 Blood Pressure Pulse Oximetry 96 01/17/18 02:09 01/17/18 03:00 01/17/18 04:00 Temperature Pulse Rate 79 78 75 Respiratory Rate 18 20 22 Blood Pressure 127/76 Pulse Oximetry 96 97 96 01/17/18 04:09 01/17/18 05:00 01/17/18 05:26 Temperature 97.6 F Pulse Rate 74 75 Respiratory Rate 20 18 18 Blood Pressure 128/68 Pulse Oximetry 95 95 01/17/18 06:00 01/17/18 06:09 01/17/18 07:00 Temperature Pulse Rate 71 72 86 Respiratory Rate 16 147 H 129 H Blood Pressure 134/75 Pulse Oximetry 96 96 96 01/17/18 08:00 01/17/18 08:09 01/17/18 09:00 Temperature 97.7 F Pulse Rate 78 76 77 Respiratory Rate 133 H 127 H 129 H Blood Pressure 145/70 H Pulse Oximetry 97 97 01/17/18 10:00 01/17/18 10:09 01/17/18 11:00 Temperature Pulse Rate 71 73 80 Respiratory Rate 108 H 92 H 127 H Blood Pressure 109/65 Pulse Oximetry 01/17/18 12:00 01/17/18 12:09 01/17/18 13:00 Temperature 97.7 F Pulse Rate 71 76 73 Respiratory Rate 122 H 128 H 138 H Blood Pressure 123/68 Pulse Oximetry 75 L 94 L 95 Intake & Output 01/16/18 01/17/18 01/17/18 18:59 06:59 18:59 Intake Total 1165 / 1165 400 / 400 Output Total 60 / 60 Balance 1105 / 1105 400 / 400 Weight 73.3 kg Intake: IV 515 / 515 Vancomycin Inj 1,500 MG In NS 515 / 515 Inj 500 ML @ 250 mls/hr IV.SIG Q36H [facility] Rx#:[id number] Oral 650 / 650 400 / 400 Output: Wound Drainage 60 / 60 # 1 Right Shoulder 60 / 60 Other: # Voids 5 6 Date of Last Bowel Movement 01/13/18 01/13/18 01/13/18 Narrative: GENERAL: Well-nourished, well-developed patient. SKIN: Warm and dry. HEAD: Normocephalic. EYES: No scleral icterus. No injection or drainage. NECK: Supple, trachea midline. No JVD or lymphadenopathy. CARDIOVASCULAR: Irregularly irregular. RESPIRATORY: Breath sounds equal bilaterally. No accessory muscle use. GASTROINTESTINAL: Abdomen soft, non-tender, nondistended. EXTREMITIES: No edema right shoulder has bandage NEUROLOGICAL: Awake, alert, and oriented x 3. Non-focal. Results - Lab Results 01/16/18 05:40 01/17/18 05:12 Most recent lab results Calcium 7.6 mg/dL (8.5-10.1) L 01/17/18 05:12 Magnesium 1.7 mg/dL (1.5-2.5) 01/16/18 05:40 Assessment and Plan - Assessment (1) Acute renal failure Code(s): N17.9 - Acute kidney failure, unspecified Status: Acute (2) Atrial fibrillation Code(s): I48.91 - Unspecified atrial fibrillation Status: Acute (3) Sepsis Code(s): A41.9 - Sepsis, unspecified organism Status: Acute - Plan Patient is a 82-year-old male with history of renal insufficiency which is getting worse now most likely due to underlying sepsis MRSA, he is getting vancomycin as well, follow levels last level was 12.9, he also received contrast study on 01/14/2018 CT of the abdomen and pelvis, Check urine sodium and creatinine Give albumin 25 g every 12 hourly Keeping well-hydrated Follow BMP Avoid nephrotoxic agents if possible MRSA infection of the right shoulder has been drained his abscess continue to monitor his progress Left supraclavicular mass likely abscess surgery is following. (2) Atrial fibrillation Qualifiers: Atrial fibrillation type: unspecified Qualified Code(s): I48.91 - Unspecified atrial fibrillation (3) Sepsis Qualifiers: Sepsis type: methicillin resistant Staphylococcus aureus Qualified Code(s): A41.02 - Sepsis due to Methicillin resistant Staphylococcus aureus
[2018-01-17] MEDS ORDERED: fentaNYL Citrate Inj 100 MCG/2 ML Ampul ONE (16:38)
--- NOTE | 2018-01-17 17:25 | P.RAD ---
Post CT Procedure Prog Note - Procedure Information Procedure Date: 01/17/18 Supervising Radiologist: Rebel Patterson MD Estimated blood loss (mL): 0 Anesthesia: Conscious Sedation - Plan of Activity Patient to Unit: Nursing Unit Patient condition: Good See PACS Report for procedural detail/treatment.
--- NOTE | 2018-01-17 19:11 | CT ---
EXAM DATE: 01/17/2018 6:09 PM EST AGE/SEX: 82 years / Male INDICATIONS: 82-year-old male with history of suspected lobulated abscess in the left supraclavicula r region. CLINICAL DATA: This is the patient's initial encounter. Patient reports that signs and symptoms have been present for 1 day and indicates a pain score of 0/10. MEDICAL/SURGICAL HISTORY: Hypertension. A-fib. Appendectomy. COMPARISON: No prior exams available for comparison. SEDATION TIME (min): 15. BIOPSY SITE: subclavicular abscess. MEDICATION(S): 75 fentanyl (Sublimaze) IV DEVICE(S): 8 Fr Skater 6 Fr Dilator 19 gauge BARD biopsy needle FLUID: Total volume of 38 of cloudy, yellow fluid was removed. Fluid was sent to lab for ordered studies.. . . PROCEDURE : CT guided drainage of left posterior supraclavicular/posterior chest wall abscess.. The risks, benefits and alternatives to the procedure were explained and verbal and written consent w as obtained. Using automated exposure control and adjustment of the mA and/or kV according to patient size, radiation dose was kept as low as reasonably achievable to obtain optimal diagnostic quality i mages. The site was prepped in sterile fashion. Full sterile technique was used, including cap, ma sk, sterile gloves and gown and a large sterile sheet. Hand hygiene and 2% chlorhexidine and/or beta dine/alcohol prep was utilized per protocol for cutaneous antisepsis. The skin and subcutaneous tiss ues were infiltrated with local anesthetic solution. DICOM format image data is available electronic ally for review and comparison. Using CT guidance the prescribed site was localized. 19-gauge blunt tip needle was advanced using ca reful CT guidance into the fluid collection. Position was confirmed with CT and aspiration of small a mount of purulent fluid. Drainage was performed using the prescribed catheter. Following catheter nayeli cement, approximately 38 cc of purulent fluid was removed with near resolution of the fluid collectio n. Catheter was then secured to skin with suture and stay fix device. The patient tolerated the procedure well and there were no complications. The patient tolerated the procedure well and there were no complications. The patient was sent to post anesthesia recovery in s table condition. CONCLUSION: 1. Uncomplicated CT guided drainage, as above. Electronically signed by: Rebel Patterson MD 01/17/2018 7:10 PM EST
[2018-01-17] MEDS: Melatonin 5 MG Tablet PO SCH (21:52)
[2018-01-17 22:20] LABS: Creatinine,Urine Random 65 mg/dL (27-300); Sodium,Urine Random 31 meq/L
[2018-01-18] MEDS: Vancomycin Inj 1,500 MG in Sodium Chlor 0.9% Inj 500 ML IV.SIG SCH (03:32)
[2018-01-18 04:08] LABS: Baso % (Auto) 0.1 % (0.0-2.0); Eos % (Auto) 0.1 % (0.0-4.0); Hematocrit 30.1 % (39.0-51.0); Hemoglobin 9.2 gm/dL (13.0-17.0); Lymph # (Auto) 0.3 th/mm3 (1.0-4.8); Lymph % (Auto) 3.8 % (9.0-44.0); Mean Corpuscular Volume 85.5 fL (80.0-100.0); Mono # (Auto) 0.1 th/mm3 (0.0-0.9); Mono % (Auto) 1.5 % (0.0-8.0); Neut # (Auto) 8.1 th/mm3 (1.8-7.7); Neut % (Auto) 94.5 % (16.0-70.0); Platelet Count 199 th/mm3 (150-450); Red Blood Count 3.52 mil/mm3 (4.50-5.90); White Blood Count 8.6 th/mm3 (4.0-11.0)
[2018-01-18 04:21] LABS: Mean Corpuscular HGB Conc 30.4 % (32.0-36.0)
[2018-01-18 04:29] LABS: Calcium 7.7 mg/dL (8.5-10.1); Carbon Dioxide 28.8 meq/L (21.0-32.0); Magnesium 1.9 mg/dL (1.5-2.5); Potassium 4.2 meq/L (3.5-5.1)
[2018-01-18 04:31] LABS: Phosphorus 4.2 mg/dL (2.5-4.9)
[2018-01-18 04:32] LABS: Vancomycin,Random 18.1 Comment
[2018-01-18] MEDS: Albumin Human 25% Inj 100 ML IV.SIG SCH (06:04)
[2018-01-18] MEDS: Levothyroxine 100 MCG Tablet PO SCH (06:05)
[2018-01-18] MEDS: predniSONE 20 MG Tablet PO SCH (09:19)
[2018-01-18] MEDS: amLODIPine 5 MG Tablet PO SCH ×2 (09:19→10:15)
[2018-01-18] MEDS: Senna/Docusate Sodium 8.6/50 MG Tablet PO SCH (09:19)
[2018-01-18] MEDS: Pantoprazole Sodium 20 MG DR Tablet PO SCH (09:19)
[2018-01-18] MEDS: Citalopram 20 MG Tablet PO SCH (09:19)
--- NOTE | 2018-01-18 09:51 | P.PNOP ---
Subjective Interval history: s/p I&D right shoulder by Dr Bernardo no changes Physical Exam Vital signs: Vital Signs 01/17/18 10:00 01/17/18 10:09 01/17/18 11:00 Temperature Pulse Rate 71 73 80 Respiratory Rate 108 H 92 H 127 H Blood Pressure 109/65 Pulse Oximetry 01/17/18 12:00 01/17/18 12:09 01/17/18 13:00 Temperature 97.7 F Pulse Rate 71 76 73 Respiratory Rate 122 H 128 H 138 H Blood Pressure 123/68 Pulse Oximetry 75 L 94 L 95 01/17/18 14:00 01/17/18 14:09 01/17/18 15:00 Temperature Pulse Rate 75 75 70 Respiratory Rate 135 H 138 H 132 H Blood Pressure 125/69 Pulse Oximetry 95 91 L 01/17/18 16:00 01/17/18 16:09 01/17/18 17:00 Temperature 97.8 F Pulse Rate 75 78 77 Respiratory Rate 123 H 31 H Blood Pressure 134/80 Pulse Oximetry 88 L 01/17/18 17:03 01/17/18 17:08 01/17/18 17:15 Temperature Pulse Rate 76 73 92 H Respiratory Rate 21 13 31 H Blood Pressure 136/77 123/77 159/76 H Pulse Oximetry 88 L 93 L 91 L 01/17/18 17:20 01/17/18 18:00 01/17/18 18:09 Temperature Pulse Rate 104 H 88 87 Respiratory Rate 25 H 85 H 92 H Blood Pressure 126/67 92/52 L Pulse Oximetry 95 93 L 94 L 01/17/18 20:00 01/18/18 00:00 01/18/18 04:00 Temperature 95.9 F L 96.5 F L 97.1 F L Pulse Rate 78 79 83 Respiratory Rate 18 17 19 Blood Pressure 118/56 L 163/73 H 123/68 Pulse Oximetry 93 L 99 98 01/18/18 08:11 Temperature Pulse Rate Respiratory Rate Blood Pressure Pulse Oximetry 98 Intake & Output 01/17/18 01/18/18 01/18/18 18:59 06:59 18:59 Intake Total 625 / 625 175 / 175 615 / 615 Output Total 520 / 520 390 / 390 Balance 105 / 105 -215 / -215 615 / 615 Weight 76.1 kg Intake: IV 150 / 150 615 / 615 Flexbumin 25% Inj 100 ML @ 60 100 / 100 mls/hr IV.SIG Q12H [facility] Rx#: [id number] Levaquin 750 mg Premix Inj 150 150 / 150 ML @ 100 mls/hr IV.SIG Q48H [facility] Rx#:[id number] Vancomycin Inj 1,500 MG In NS 0 / 0 515 / 515 Inj 500 ML @ 250 mls/hr IV.SIG Q36H [facility] Rx#:[id number] Oral 625 / 625 25 / 25 Output: Urine 450 / 450 Urine Amount (Catheter) 350 / 350 Condom 350 / 350 Wound Drainage 70 / 70 40 / 40 # 1 Right Shoulder 70 / 70 30 / 30 Left Shoulder Other: Date of Last Bowel Movement 01/13/18 01/13/18 # Bowel Movements 0 Narrative: RUE: dressings clean and dry. intact. NVI. Drain 30cc overnight - Urinary Catheter Management Condom Cath placed during this visit: no Results - Labs CBC & Chem 7: 01/18/18 03:30 01/18/18 03:30 Laboratory Results - last 24 hr 01/17/18 01/18/18 01/18/18 21:50 03:30 03:30 WBC 8.6 RBC 3.52 L Hgb 9.2 L Hct 30.1 L MCV 85.5 MCH 26.0 L MCHC 30.4 L RDW 19.0 H Plt Count 199 MPV 8.0 Neut % (Auto) 94.5 H Lymph % (Auto) 3.8 L [place] % (Auto) 1.5 Eos % (Auto) 0.1 Baso % (Auto) 0.1 Neut # (Auto) 8.1 H Lymph # (Auto) 0.3 L [place] # (Auto) 0.1 Eos # (Auto) 0.0 Baso # (Auto) 0.0 WBC Differential . Differential Comment Auto diff final Sodium 141 Potassium 4.2 Chloride 106 Carbon Dioxide 28.8 Anion Gap 6 BUN 49 H Creatinine 1.96 H Estimated GFR 33 L Random Glucose 181 H Calcium 7.7 L Phosphorus 4.2 Magnesium 1.9 Ur Random Creatinine 65 Ur Random Sodium 31 Random Vancomycin 18.1 Microbiology 01/17/18 18:56 Fluid - Other Gram Stain - Final 01/15/18 18:25 Wound - Shoulder Acid Fast Bacilli Smear - Final No acid fast bacilli seen 01/15/18 18:25 Wound - Shoulder Acid Fast Bacilli Smear - Final No acid fast bacilli seen 01/15/18 18:25 Wound - Shoulder Gram Stain - Final 01/15/18 18:25 Wound - Shoulder Wound Culture - Preliminary S. aureus MRSA Staphylococcus species 01/15/18 18:25 Wound - Shoulder Gram Stain - Final 01/15/18 18:25 Wound - Shoulder Wound Culture - Preliminary S. aureus MRSA Staphylococcus species 01/15/18 18:25 Wound - Shoulder Fungal Smear - Final No fungal elements seen 01/14/18 19:08 Fluid - Synovial Fluid Gram Stain - Final 01/14/18 19:08 Fluid - Synovial Fluid Body Fluid Culture - Preliminary S. aureus MRSA Staphylococcus species 01/14/18 02:34 Blood - Peripheral Aerobic Blood Culture - Final S. aureus MRSA 01/14/18 02:34 Blood - Peripheral Anaerobic Blood Culture - Final S. aureus MRSA 01/14/18 02:30 Blood - Peripheral Aerobic Blood Culture - Final S. aureus MRSA 01/14/18 02:30 Blood - Peripheral Anaerobic Blood Culture - Final S. aureus MRSA - Imaging Impressions Abscess Drainage CT 01/17/18 00:00 CONCLUSION: 1. Uncomplicated CT guided drainage, as above. - Procedures Right shoulder consent for aspiration obtained. Time out performed. Right shoulder prepped sterilely with alcohol and betadine. Sterile gloves doned. Right shoulder aspirated and sent for gram stain, culture, crystals, and cell count. 30 cc of purulent drainage aspirated and sent to lab. sterile dressing applied. Patient tolerated procedure well. Assessment and Plan - Assessment and Plan Abscess right shoulder. History of lumbar spinal decompression and fusion with MRSA postop, remote Surgery: I&D right shoulder, POD #4 PLAN: IV antibiotics. Source of sepsis unclear. 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 Possible indolent infection that has developed an abscess of the right shoulder. We will defer to neurosurgery and other specialists for overall management. Continue drain. Consider removal over the next day or 2 depending on output of drainage. I explained to the family that a second I&D is sometimes necessary if swelling persists. Review of preop MRI scan showed extensive abscess of right shoulder, intra-articular, extra-articular, anterior and posterior. Albumin 1.6. If oral intake with nutrition not adequate, consider nasogastric feeding tube Stable orthopedically -DC drain today
--- NOTE | 2018-01-18 10:45 | P.PNCV ---
- Note Subjective/Hospital Course: s/p drainage of left supraclavicular abscess drainage. Remains somnolent, confused Objective: Vital Signs - 24 hr 01/17/18 11:00 01/17/18 12:00 01/17/18 12:09 Temperature 97.7 F Pulse Rate 80 71 76 Respiratory Rate 127 H 122 H 128 H Blood Pressure 123/68 Pulse Oximetry 75 L 94 L 01/17/18 13:00 01/17/18 14:00 01/17/18 14:09 Temperature Pulse Rate 73 75 75 Respiratory Rate 138 H 135 H 138 H Blood Pressure 125/69 Pulse Oximetry 95 95 91 L 01/17/18 15:00 01/17/18 16:00 01/17/18 16:09 Temperature 97.8 F Pulse Rate 70 75 78 Respiratory Rate 132 H 123 H Blood Pressure 134/80 Pulse Oximetry 01/17/18 17:00 01/17/18 17:03 01/17/18 17:08 Temperature Pulse Rate 77 76 73 Respiratory Rate 31 H 21 13 Blood Pressure 136/77 123/77 Pulse Oximetry 88 L 88 L 93 L 01/17/18 17:15 01/17/18 17:20 01/17/18 18:00 Temperature Pulse Rate 92 H 104 H 88 Respiratory Rate 31 H 25 H 85 H Blood Pressure 159/76 H 126/67 Pulse Oximetry 91 L 95 93 L 01/17/18 18:09 01/17/18 20:00 01/18/18 00:00 Temperature 95.9 F L 96.5 F L Pulse Rate 87 78 79 Respiratory Rate 92 H 18 17 Blood Pressure 92/52 L 118/56 L 163/73 H Pulse Oximetry 94 L 93 L 99 01/18/18 04:00 01/18/18 07:00 01/18/18 08:00 Temperature 97.1 F L 98.4 F Pulse Rate 83 75 78 Respiratory Rate 19 18 Blood Pressure 123/68 102/58 L 120/71 Pulse Oximetry 98 96 01/18/18 08:11 01/18/18 09:00 Temperature Pulse Rate 90 Respiratory Rate 18 Blood Pressure 117/56 L Pulse Oximetry 98 91 L Labs: Laboratory Results - last 12 hr 01/18/18 01/18/18 03:30 03:30 WBC 8.6 RBC 3.52 L Hgb 9.2 L Hct 30.1 L MCV 85.5 MCH 26.0 L MCHC 30.4 L RDW 19.0 H Plt Count 199 MPV 8.0 Neut % (Auto) 94.5 H Lymph % (Auto) 3.8 L [place] % (Auto) 1.5 Eos % (Auto) 0.1 Baso % (Auto) 0.1 Neut # (Auto) 8.1 H Lymph # (Auto) 0.3 L [place] # (Auto) 0.1 Eos # (Auto) 0.0 Baso # (Auto) 0.0 WBC Differential . Differential Comment Auto diff final Sodium 141 Potassium 4.2 Chloride 106 Carbon Dioxide 28.8 Anion Gap 6 BUN 49 H Creatinine 1.96 H Estimated GFR 33 L Random Glucose 181 H Calcium 7.7 L Phosphorus 4.2 Magnesium 1.9 Random Vancomycin 18.1 Result Diagrams: 01/18/18 03:30 01/18/18 03:30 Imaging: Abdomen/Pelvis CT 01/13/18 20:43 CONCLUSION: 1. Marked prostate enlargement. 2. Air-filled distention of sigmoid colon. 3. Cardiomegaly. Small bilateral pleural effusions. 4. Diffuse atherosclerotic disease and arterial calcification. 5. Old insufficiency type fractures of the left side of the sacrum and left- sided pubic rami. Chest X-Ray 01/13/18 20:43 CONCLUSION: Clear lungs. Possible compression deformity at the thoracolumbar junction age indeterminate. Cervical Spine MRI 01/14/18 00:00 CONCLUSION: 1. Examination is degraded by motion artifact. 2. Partial visualization of a mass involving the left supraclavicular region measuring 5.[address] scan of the soft tissues of the neck with IV contrast to further assess if the patient can't hold still for that exam. 3. Diffuse degenerative changes as detailed at each level in the above discussion. Head MRI 01/14/18 00:00 CONCLUSION: 1. No acute intracranial abnormality. 2. Encephalomalacia involving the left frontal lobe. Lumbar Spine MRI 01/14/18 00:00 CONCLUSION: 1. Posterior fusion from L1 to L5. This in combination with motion artifact degrades the study. 2. Central canal appears patent throughout its visualized extent. 3. Old T12 compression deformity. Shoulder MRI 01/14/18 00:00 CONCLUSION: 1. Large full-thickness chronic appearing rotator cuff tear as described. 2. Joint effusion which communicates with large periarticular fluid collections characteristic of periarticular ganglions and bursal fluid collections. Internal debris is identified within the fluid collections. 3. Denervation versus disuse atrophy of the periarticular musculature. 4. Glenohumeral subluxation characteristic of chronic rotator cuff tear. 5. Moderate arthropathy of the glenohumeral joint with remodeling, hyaline cartilage thinning and marginal spurring. 6. Advanced acromioclavicular degenerative disease with periarticular ganglion. 7. Torn biceps tendon. 8. A cortical cyst formation seen in the superolateral humeral head. 9. Periarticular loose bodies within the fluid collections. Sign Thoracic Spine MRI 01/14/18 00:00 CONCLUSION: 1. See the MRI of the cervical spine reported separately. 2. Orthopedic hardware at the thoracolumbar junction. 3. Patent central canal throughout. Head CT 01/14/18 00:31 CONCLUSION: 1. No acute intracranial findings. 2. 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 . Venous Doppler Study 01/14/18 09:20 CONCLUSION: 1. The study is negative for lower extremity deep venous thrombosis. Soft Tissue Neck CT 01/16/18 00:00 CONCLUSION: 1. Partially visualized fluid and gas collection deep to the left trapezius muscle in the posterior lower neck extending into the posterior thorax. Chest CT with contrast could be performed to image the remainder of the abnormality. Differential diagnosis includes abscess and hematoma. 2. Degenerative findings of the cervical spine. Chest CT 01/16/18 11:15 CONCLUSION: 1. Lobulated mass in the left supraclavicular region. It is most suggestive of a multi lobulated loculated abscess given the air within several of the masses. 2. Bibasilar areas of consolidation or atelectasis. There are mild bilateral pleural effusion. 3. There is a drain over the right shoulder region. 4. Postsurgical change at the thoracolumbar region as described above. Abscess Drainage CT 01/17/18 00:00 CONCLUSION: 1. Uncomplicated CT guided drainage, as above. Cardiovascular: RRR - Plan (1) Sepsis Patient is s/p percutaneous drainage of this left sided abscess. I do not see a role for surgical intervention for this particular lesion at this time, but he will require further imaging this week to determine whether or not it is adequately drained. (1) Sepsis Qualifiers: Sepsis type: methicillin resistant Staphylococcus aureus Qualified Code(s): A41.02 - Sepsis due to Methicillin resistant Staphylococcus aureus
--- NOTE | 2018-01-18 11:31 | P.PN ---
Subjective Interval history: Patient is sleepy however arousable. Says has some pain at the surgical site Went for scan Had CT guided drainage of abscess last night No fever or chills No n/v/d/c Has decreased appetite and is not eating well. Physical Exam Vital signs: Vital Signs 01/17/18 12:00 01/17/18 12:09 01/17/18 13:00 Temperature 97.7 F Pulse Rate 71 76 73 Respiratory Rate 122 H 128 H 138 H Blood Pressure 123/68 Pulse Oximetry 75 L 94 L 95 01/17/18 14:00 01/17/18 14:09 01/17/18 15:00 Temperature Pulse Rate 75 75 70 Respiratory Rate 135 H 138 H 132 H Blood Pressure 125/69 Pulse Oximetry 95 91 L 01/17/18 16:00 01/17/18 16:09 01/17/18 17:00 Temperature 97.8 F Pulse Rate 75 78 77 Respiratory Rate 123 H 31 H Blood Pressure 134/80 Pulse Oximetry 88 L 01/17/18 17:03 01/17/18 17:08 01/17/18 17:15 Temperature Pulse Rate 76 73 92 H Respiratory Rate 21 13 31 H Blood Pressure 136/77 123/77 159/76 H Pulse Oximetry 88 L 93 L 91 L 01/17/18 17:20 01/17/18 18:00 01/17/18 18:09 Temperature Pulse Rate 104 H 88 87 Respiratory Rate 25 H 85 H 92 H Blood Pressure 126/67 92/52 L Pulse Oximetry 95 93 L 94 L 01/17/18 20:00 01/18/18 00:00 01/18/18 04:00 Temperature 95.9 F L 96.5 F L 97.1 F L Pulse Rate 78 79 83 Respiratory Rate 18 17 19 Blood Pressure 118/56 L 163/73 H 123/68 Pulse Oximetry 93 L 99 98 01/18/18 07:00 01/18/18 08:00 01/18/18 08:11 Temperature 98.4 F Pulse Rate 75 78 Respiratory Rate 18 Blood Pressure 102/58 L 120/71 Pulse Oximetry 96 98 01/18/18 09:00 Temperature Pulse Rate 90 Respiratory Rate 18 Blood Pressure 117/56 L Pulse Oximetry 91 L Intake & Output 01/17/18 01/18/18 01/18/18 18:59 06:59 18:59 Intake Total 625 / 625 175 / 175 61 / 615 Output Total 520 / 520 390 / 390 Balance 105 / 105 -215 / -215 61 615 Weight 76.1 kg Intake: IV 150 / 150 615 / 615 Flexbumin 25% Inj 100 ML @ 60 100 / 100 mls/hr IV.SIG Q12H [facility] Rx#: [id number] Levaquin 750 mg Premix Inj 150 150 / 150 ML @ 100 mls/hr IV.SIG Q48H [facility] Rx#:[id number] Vancomycin Inj 1,500 MG In NS 0 / 0 515 / 515 Inj 500 ML @ 250 mls/hr IV.SIG Q36H [facility] Rx#:[id number] Oral 625 / 625 25 / 25 Output: Urine 450 / 450 Urine Amount (Catheter) 350 / 350 Condom 350 / 350 Wound Drainage 70 / 70 40 / 40 # 1 Right Shoulder 70 / 70 30 / 30 Left Shoulder Other: Date of Last Bowel Movement 01/13/18 01/13/18 01/13/18 # Bowel Movements 0 Narrative: GENERAL: Pleasant elderly male in bed appears chronically ill, well-developed well-nourished, appears sleepy but in not acute distress at this time. CARDIOVASCULAR: Regular rate and rhythm without murmurs, gallops, or rubs. RESPIRATORY: Breath sounds equal bilaterally. No accessory muscle use. GASTROINTESTINAL: Abdomen soft, non-tender, nondistended. MUSCULOSKELETAL: Left supraclavicular mass, slightly tender to palpation drain in place. Dressing at the right shoulder c/d/i. No cyanosis. NEURO: Alert and oriented. Sleepy. Moves extremities no focal deficit. - Urinary Catheter Management Condom Cath placed during this visit: no Results - Labs CBC & Chem 7: 01/18/18 03:30 01/18/18 03:30 Laboratory Results - last 24 hr 01/17/18 01/18/18 01/18/18 21:50 03:30 03:30 WBC 8.6 RBC 3.52 L Hgb 9.2 L Hct 30.1 L MCV 85.5 MCH 26.0 L MCHC 30.4 L RDW 19.0 H Plt Count 199 MPV 8.0 Neut % (Auto) 94.5 H Lymph % (Auto) 3.8 L [place] % (Auto) 1.5 Eos % (Auto) 0.1 Baso % (Auto) 0.1 Neut # (Auto) 8.1 H Lymph # (Auto) 0.3 L [place] # (Auto) 0.1 Eos # (Auto) 0.0 Baso # (Auto) 0.0 WBC Differential . Differential Comment Auto diff final Sodium 141 Potassium 4.2 Chloride 106 Carbon Dioxide 28.8 Anion Gap 6 BUN 49 H Creatinine 1.96 H Estimated GFR 33 L Random Glucose 181 H Calcium 7.7 L Phosphorus 4.2 Magnesium 1.9 Ur Random Creatinine 65 Ur Random Sodium 31 Random Vancomycin 18.1 Microbiology 01/17/18 13:07 Blood - Peripheral Aerobic Blood Culture - Preliminary No growth in 1 day 01/17/18 13:07 Blood - Peripheral Anaerobic Blood Culture - Final QNS - See aerobic report. 01/17/18 13:01 Blood - Peripheral Aerobic Blood Culture - Preliminary No growth in 1 day 01/17/18 13:01 Blood - Peripheral Anaerobic Blood Culture - Preliminary No growth in 1 day 01/17/18 18:56 Fluid - Other Gram Stain - Final 01/15/18 18:25 Wound - Shoulder Acid Fast Bacilli Smear - Final No acid fast bacilli seen 01/15/18 18:25 Wound - Shoulder Acid Fast Bacilli Smear - Final No acid fast bacilli seen 01/15/18 18:25 Wound - Shoulder Gram Stain - Final 01/15/18 18:25 Wound - Shoulder Wound Culture - Preliminary S. aureus MRSA Staphylococcus species 01/15/18 18:25 Wound - Shoulder Gram Stain - Final 01/15/18 18:25 Wound - Shoulder Wound Culture - Preliminary S. aureus MRSA Staphylococcus species 01/15/18 18:25 Wound - Shoulder Fungal Smear - Final No fungal elements seen 01/14/18 19:08 Fluid - Synovial Fluid Gram Stain - Final 01/14/18 19:08 Fluid - Synovial Fluid Body Fluid Culture - Preliminary S. aureus MRSA Staphylococcus species 01/14/18 02:34 Blood - Peripheral Aerobic Blood Culture - Final S. aureus MRSA 01/14/18 02:34 Blood - Peripheral Anaerobic Blood Culture - Final S. aureus MRSA 01/14/18 02:30 Blood - Peripheral Aerobic Blood Culture - Final S. aureus MRSA 01/14/18 02:30 Blood - Peripheral Anaerobic Blood Culture - Final S. aureus MRSA - Imaging Impressions Abscess Drainage CT 01/17/18 00:00 CONCLUSION: 1. Uncomplicated CT guided drainage, as above. - Procedures Right shoulder consent for aspiration obtained. Time out performed. Right shoulder prepped sterilely with alcohol and betadine. Sterile gloves doned. Right shoulder aspirated and sent for gram stain, culture, crystals, and cell count. 30 cc of purulent drainage aspirated and sent to lab. sterile dressing applied. Patient tolerated procedure well. Assessment and Plan - Plan Pleasant 82 old male with hypertension, BPH, gastroesophageal reflux disease. The patient was brought in with acute encephalopathy. Recently he returned from [place] where he was treated for 3 consecutive urinary tract infections over the past 45 days. There is also concern for Guillain [place] because he recently got a flu shot and then had weakness in his extremities after receiving the vaccination. After evaluation the patient was found to have right shoulder swelling and erythema. Patient was having low-grade fevers. Blood cultures came back positive for MRSA, and his right shoulder was also evaluated and then aspirated by the orthopedic surgery team. MRSA septicemia, septic right shoulder, L spine diskitis, left supraclavicular abscess Right shoulder effusion. septic right shoulder, s/p I&D Urinary tract infection. 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 Taper steroid Patient has been afebrile . Vital signs are fairly stable Blood cultures positive for MRSA. 2D echocardiogram did not show any findings consistent with vegetations. Patient may need JUSTIN. Continue vancomycin, Levaquin Patient also had a right shoulder effusion, orthopedics aspirated the shoulder which grew approximately 30 cc of purulent fluid. had follow-up with orthopedics for their recommendations drainage of that right shoulder. Continue IV antibiotics per infectious disease recommendations. Infectious disease following repeat blood cultures ntd Cardiothoracic surgeon was consulted for evaluation of supraclavicular mass/ poss abscess NM WBC scan 01/18/18 Neurology, ID, hem onc ff. CTS consulted no surgical intervention required at this time. IR consulted s/p CT-guided drainage of left posterior supraclavicular/posterior chest wall abscess on 01/17/18. KEKE on CKD. Noted elevated serum creatinine of 1.64. Likely KEKE on CKD. 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 Will add ensure with meals. Consult coagulating bath operator. BPH - Continue Flomax. DVT prophylaxis per surgeon Discussed with the patient, family very supportive at bedside, nurse, Dr Morales ID specialist.
--- NOTE | 2018-01-18 16:22 | P.PNNP ---
Subjective Interval history: Patient has fluid removed from other shoulder and cultures are pending, undergoing nuclear medicine scan as well for MRSA infection and continue to receive vancomycin, urine output 350 cc last shift and has increased creatinine Physical Exam Vital signs: Vital Signs 01/17/18 17:00 01/17/18 17:03 01/17/18 17:08 Temperature Pulse Rate 77 76 73 Respiratory Rate 31 H 21 13 Blood Pressure 136/77 123/77 Pulse Oximetry 88 L 88 L 93 L 01/17/18 17:15 01/17/18 17:20 01/17/18 18:00 Temperature Pulse Rate 92 H 104 H 88 Respiratory Rate 31 H 25 H 85 H Blood Pressure 159/76 H 126/67 Pulse Oximetry 91 L 95 93 L 01/17/18 18:09 01/17/18 20:00 01/18/18 00:00 Temperature 95.9 F L 96.5 F L Pulse Rate 87 78 79 Respiratory Rate 92 H 18 17 Blood Pressure 92/52 L 118/56 L 163/73 H Pulse Oximetry 94 L 93 L 99 01/18/18 04:00 01/18/18 07:00 01/18/18 08:00 Temperature 97.1 F L 98.4 F Pulse Rate 83 75 78 Respiratory Rate 19 18 Blood Pressure 123/68 102/58 L 120/71 Pulse Oximetry 98 96 01/18/18 08:11 01/18/18 09:00 01/18/18 12:30 Temperature 98.4 F Pulse Rate 90 83 Respiratory Rate 18 18 Blood Pressure 117/56 L 100/59 L Pulse Oximetry 98 91 L 94 L Intake & Output 01/17/18 01/18/18 01/18/18 18:59 06:59 18:59 Intake Total 625 / 625 175 / 175 615 / 615 Output Total 520 / 520 390 / 390 25 / 25 Balance 105 / 105 -215 / -215 590 / 590 Weight 76.1 kg Intake: IV 150 / 150 615 / 615 Flexbumin 25% Inj 100 ML @ 60 100 / 100 mls/hr IV.SIG Q12H [facility] Rx#: [id number] Levaquin 750 mg Premix Inj 150 150 / 150 ML @ 100 mls/hr IV.SIG Q48H [facility] Rx#:[id number] Vancomycin Inj 1,500 MG In NS 0 / 0 515 / 515 Inj 500 ML @ 250 mls/hr IV.SIG Q36H [facility] Rx#:[id number] Oral 625 / 625 Output: Urine 450 / 450 Urine Amount (Catheter) 350 / 350 Condom 350 / 350 Wound Drainage 70 / 70 40 / 40 # 1 Right Shoulder 70 / 70 30 / 30 Left Shoulder Other: Date of Last Bowel Movement 01/13/18 01/13/18 01/13/18 # Bowel Movements 0 Narrative: GENERAL: Pleasant elderly male in bed appears chronically ill, well-developed well-nourished, appears sleepy but in not acute distress at this time. CARDIOVASCULAR: Regular rate and rhythm without murmurs, gallops, or rubs. RESPIRATORY: Breath sounds equal bilaterally. No accessory muscle use. GASTROINTESTINAL: Abdomen soft, non-tender, nondistended. MUSCULOSKELETAL: Left supraclavicular mass, slightly tender to palpation drain in place. Dressing at the right shoulder c/d/i. No cyanosis. NEURO: Alert and oriented. Sleepy. Moves extremities no focal deficit. - Urinary Catheter Management Condom Cath placed during this visit: no Assessment and Plan - Assessment (1) Acute renal failure Code(s): N17.9 - Acute kidney failure, unspecified Status: Acute (2) Atrial fibrillation Code(s): I48.91 - Unspecified atrial fibrillation Status: Acute Qualifiers: Atrial fibrillation type: unspecified Qualified Code(s): I48.91 - Unspecified atrial fibrillation (3) Sepsis Code(s): A41.9 - Sepsis, unspecified organism Status: Acute Qualifiers: Sepsis type: methicillin resistant Staphylococcus aureus Qualified Code(s) : A41.02 - Sepsis due to Methicillin resistant Staphylococcus aureus - Plan Patient is a 82-year-old male with history of renal insufficiency which is getting worse now most likely due to underlying sepsis MRSA, he is getting vancomycin as well, follow levels last level was 12.9, he also received contrast study on 01/14/2018 CT of the abdomen and pelvis, Patient is getting albumin however his creatinine is 1.9 LR at 80 cc/hr Encourage oral fluids Encourage Nepro feeding Avoid nephrotoxic agents if possible MRSA infection of the right shoulder has been drained as well as a CT-guided aspiration on the left side his abscess continue to monitor his progress Nuclear medicine scan and give report
--- NOTE | 2018-01-18 17:43 | P.PNID ---
Subjective Remarks: ID [email or web address]. [facility] at [email or web address] for . Patient is status post drainage of fluid collections at the left supraclavicular and also right shoulder. Drainage catheter from the right shoulder has been removed. Drainage catheter at the left scapular area has slight serous drainage. Wound culture from the right shoulder has MRSA. Wound culture from the left shoulder is pending. Nuclear medicine scan in progress. is an 82 y/o CM with prior back surgeries who now has following problems: s/p I+D R shoulder 4/4 blood clx with growth MRSA Antibiotics: vanco levaquin Lines: Line sites with no e.o infection Past Medical History: reviewed Allergies/Adverse Reactions: Allergies amoxicillin Allergy (Severe, Verified 01/13/18 20:44) Hives Objective Vital Signs 01/17/18 18:00 01/17/18 18:09 01/17/18 20:00 Temperature 95.9 F L Pulse Rate 88 87 78 Respiratory Rate 85 H 92 H 18 Blood Pressure 92/52 L 118/56 L Pulse Oximetry 93 L 94 L 93 L 01/18/18 00:00 01/18/18 04:00 01/18/18 07:00 Temperature 96.5 F L 97.1 F L Pulse Rate 79 83 75 Respiratory Rate 17 19 18 Blood Pressure 163/73 H 123/68 102/58 L Pulse Oximetry 99 98 96 01/18/18 08:00 01/18/18 08:11 01/18/18 09:00 Temperature 98.4 F Pulse Rate 78 90 Respiratory Rate 18 Blood Pressure 120/71 117/56 L Pulse Oximetry 98 91 L 01/18/18 12:30 01/18/18 16:00 Temperature 98.4 F 98.0 F Pulse Rate 83 73 Respiratory Rate 18 16 Blood Pressure 100/59 L 112/57 L Pulse Oximetry 94 L 98 Intake & Output 01/17/18 01/18/18 01/18/18 18:59 06:59 18:59 Intake Total 625 / 625 175 / 175 615 / 615 Output Total 520 / 520 390 / 390 25 / 25 Balance 105 / 105 -215 / -215 590 / 590 Weight 76.1 kg Intake: IV 150 / 150 615 / 615 Flexbumin 25% Inj 100 ML @ 60 100 / 100 mls/hr IV.SIG Q12H REPLACED BY [facility] Rx#: [id number] Levaquin 750 mg Premix Inj 150 150 / 150 ML @ 100 mls/hr IV.SIG Q48H REPLACED BY [facility] Rx#:[id number] Vancomycin Inj 1,500 MG In NS 0 / 0 515 / 515 Inj 500 ML @ 250 mls/hr IV.SIG Q36H REPLACED BY [facility] Rx#:[id number] Oral 625 / 625 Output: Urine 450 / 450 Urine Amount (Catheter) 350 / 350 Condom 350 / 350 Wound Drainage 70 / 70 40 / 40 # 1 Right Shoulder 70 / 70 30 / 30 Left Shoulder Other: Date of Last Bowel Movement 01/13/18 01/13/18 01/13/18 # Bowel Movements 0 01/17/18 18:56 Fluid - Other Gram Stain - Final 01/17/18 18:56 Fluid - Other Body Fluid Culture - Preliminary 01/17/18 13:07 Blood - Peripheral Aerobic Blood Culture - Preliminary No growth in 1 day 01/17/18 13:07 Blood - Peripheral Anaerobic Blood Culture - Final QNS - See aerobic report. 01/17/18 13:01 Blood - Peripheral Aerobic Blood Culture - Preliminary No growth in 1 day 01/17/18 13:01 Blood - Peripheral Anaerobic Blood Culture - Preliminary No growth in 1 day 01/17/18 18:56 Fluid - Other Fungal Smear - Pending 01/17/18 18:56 Fluid - Other Fungal Culture - Pending 01/17/18 18:56 Fluid - Other Acid Fast Bacilli Smear - Pending 01/17/18 18:56 Fluid - Other Mycobacterial Culture - Pending 01/15/18 18:25 Wound - Shoulder Acid Fast Bacilli Smear - Final No acid fast bacilli seen 01/15/18 18:25 Wound - Shoulder Mycobacterial Culture - Pending 01/15/18 18:25 Wound - Shoulder Acid Fast Bacilli Smear - Final No acid fast bacilli seen 01/15/18 18:25 Wound - Shoulder Mycobacterial Culture - Pending 01/15/18 18:25 Wound - Shoulder Gram Stain - Final 01/15/18 18:25 Wound - Shoulder Wound Culture - Preliminary S. aureus MRSA Staphylococcus species 01/15/18 18:25 Wound - Shoulder Gram Stain - Final 01/15/18 18:25 Wound - Shoulder Wound Culture - Preliminary S. aureus MRSA Staphylococcus species 01/15/18 18:25 Wound - Shoulder Fungal Smear - Final No fungal elements seen 01/15/18 18:25 Wound - Shoulder Fungal Culture - Pending 01/14/18 19:08 Fluid - Synovial Fluid Gram Stain - Final 01/14/18 19:08 Fluid - Synovial Fluid Body Fluid Culture - Preliminary S. aureus MRSA Staphylococcus species 01/14/18 02:34 Blood - Peripheral Aerobic Blood Culture - Final S. aureus MRSA 01/14/18 02:34 Blood - Peripheral Anaerobic Blood Culture - Final S. aureus MRSA 01/14/18 02:30 Blood - Peripheral Aerobic Blood Culture - Final S. aureus MRSA 01/14/18 02:30 Blood - Peripheral Anaerobic Blood Culture - Final S. aureus MRSA 01/15/18 18:25 Wound - Shoulder Fungal Smear - Final No fungal elements seen 01/15/18 18:25 Wound - Shoulder Fungal Culture - Pending Lab - Hematology Results 01/18/18 03:30 WBC 8.6 RBC 3.52 L Hgb 9.2 L Hct 30.1 L MCV 85.5 MCH 26.0 L MCHC 30.4 L RDW 19.0 H Plt Count 199 MPV 8.0 Neut % (Auto) 94.5 H Lymph % (Auto) 3.8 L [place] % (Auto) 1.5 Eos % (Auto) 0.1 Baso % (Auto) 0.1 Neut # (Auto) 8.1 H Lymph # (Auto) 0.3 L [place] # (Auto) 0.1 Eos # (Auto) 0.0 Baso # (Auto) 0.0 WBC Differential . Differential Comment Auto diff final Lab - Chemistry Results 01/17/18 01/18/18 01/18/18 05:12 03:30 03:30 Sodium 141 141 Potassium 4.1 4.2 Chloride 107 106 Carbon Dioxide 27.2 28.8 Anion Gap 7 6 BUN 50 H 49 H Creatinine 1.76 H 1.96 H Estimated GFR 37 L 33 L Random Glucose 246 H D 181 H Calcium 7.6 L 7.7 L Phosphorus 4.2 Magnesium 1.9 Total Bilirubin 0.2 AST 10 L ALT 17 Alkaline Phosphatase 89 Total Protein 4.9 L D Albumin 1.6 L Prealbumin 15 L Imaging: ITS Impressions Abdomen/Pelvis CT 01/13/18 20:43 CONCLUSION: 1. Marked prostate enlargement. 2. Air-filled distention of sigmoid colon. 3. Cardiomegaly. Small bilateral pleural effusions. 4. Diffuse atherosclerotic disease and arterial calcification. 5. Old insufficiency type fractures of the left side of the sacrum and left- sided pubic rami. Chest X-Ray 01/13/18 20:43 CONCLUSION: Clear lungs. Possible compression deformity at the thoracolumbar junction age indeterminate. Cervical Spine MRI 01/14/18 00:00 CONCLUSION: 1. Examination is degraded by motion artifact. 2. Partial visualization of a mass involving the left supraclavicular region measuring 5.[address] scan of the soft tissues of the neck with IV contrast to further assess if the patient can't hold still for that exam. 3. Diffuse degenerative changes as detailed at each level in the above discussion. Head MRI 01/14/18 00:00 CONCLUSION: 1. No acute intracranial abnormality. 2. Encephalomalacia involving the left frontal lobe. Lumbar Spine MRI 01/14/18 00:00 CONCLUSION: 1. Posterior fusion from L1 to L5. This in combination with motion artifact degrades the study. 2. Central canal appears patent throughout its visualized extent. 3. Old T12 compression deformity. Shoulder MRI 01/14/18 00:00 CONCLUSION: 1. Large full-thickness chronic appearing rotator cuff tear as described. 2. Joint effusion which communicates with large periarticular fluid collections characteristic of periarticular ganglions and bursal fluid collections. Internal debris is identified within the fluid collections. 3. Denervation versus disuse atrophy of the periarticular musculature. 4. Glenohumeral subluxation characteristic of chronic rotator cuff tear. 5. Moderate arthropathy of the glenohumeral joint with remodeling, hyaline cartilage thinning and marginal spurring. 6. Advanced acromioclavicular degenerative disease with periarticular ganglion. 7. Torn biceps tendon. 8. A cortical cyst formation seen in the superolateral humeral head. 9. Periarticular loose bodies within the fluid collections. Sign Thoracic Spine MRI 01/14/18 00:00 CONCLUSION: 1. See the MRI of the cervical spine reported separately. 2. Orthopedic hardware at the thoracolumbar junction. 3. Patent central canal throughout. Head CT 01/14/18 00:31 CONCLUSION: 1. No acute intracranial findings. 2. 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 . Venous Doppler Study 01/14/18 09:20 CONCLUSION: 1. The study is negative for lower extremity deep venous thrombosis. Soft Tissue Neck CT 01/16/18 00:00 CONCLUSION: 1. Partially visualized fluid and gas collection deep to the left trapezius muscle in the posterior lower neck extending into the posterior thorax. Chest CT with contrast could be performed to image the remainder of the abnormality. Differential diagnosis includes abscess and hematoma. 2. Degenerative findings of the cervical spine. Chest CT 01/16/18 11:15 CONCLUSION: 1. Lobulated mass in the left supraclavicular region. It is most suggestive of a multi lobulated loculated abscess given the air within several of the masses. 2. Bibasilar areas of consolidation or atelectasis. There are mild bilateral pleural effusion. 3. There is a drain over the right shoulder region. 4. Postsurgical change at the thoracolumbar region as described above. Abscess Drainage CT 01/17/18 00:00 CONCLUSION: 1. Uncomplicated CT guided drainage, as above. Physical Exam: GENERAL: NAD SKIN: Warm and dry. No rash HEAD: Atraumatic. Normocephalic. EYES: Pupils equal and round. No scleral icterus. No injection or drainage. ENT: No nasal bleeding or discharge. Mucous membranes pink and moist. NECK: Trachea midline. No JVD. No palpable masses, but diffuse pain CARDIOVASCULAR: Regular rate and rhythm. nO murmurs RESPIRATORY: No accessory muscle use. Clear to auscultation. Breath sounds equal bilaterally. GASTROINTESTINAL: Abdomen soft, non-tender, nondistended. Hepatic and splenic margins not palpable. MUSCULOSKELETAL: Extremities without clubbing, cyanosis, or edema. No obvious deformities. + R shoulder post op dressing in place. Left shoulder catheter has serous drainage. NEUROLOGICAL: awake, alert, non focal PSYCHIATRIC: calm, cooperative Assessment and Plan - Plan High grade staph bacteremia. MRSA 2 D echo neg R shoulder effusion , cw R shoulder septic arhtritis (MRSA)-post I&D. . UTI, recurrent recent ly used Bactrim - clx negative probably 2/2 prior abx use Chronic back pain with h/o L spine fusion and infection Encephalopathy - likely 2/2 sepsis (pt has 2 concomitant infections: UTI and septic R shoulder arthritis - improved with treatment L supraclavicular mass turned out to be abscess on CT his CT showed abscess extending to posterior thorax. Status post drainage. MR L spine with ? diskitis multiple rad studies were dw radiologist CT chest with contrast was rec'd, but since he got contrast this am, will do w/ o contrast Recs: continue vancomycin continue levaquin Follow NM WBC. Continue to monitor cultures. [place] multiple family member at bedside including daughter.
[2018-01-18] MEDS: Melatonin 5 MG Tablet PO SCH (20:07)
[2018-01-18 23:53] LABS: Free Kappa/Lambda Light Chain 1.89 (0.26-1.65); Kappa Light Chain, Free 53.9 mg/L (3.3-19.4); Lambda Light Chain, Free 28.5 mg/L (5.7-26.3)
[2018-01-19] MEDS: Senna/Docusate Sodium 8.6/50 MG Tablet PO SCH ×3 (01:28→21:52)
[2018-01-19 05:43] LABS: Eos % (Auto) 0.1 % (0.0-4.0); Hemoglobin 8.8 gm/dL (13.0-17.0); Lymph # (Auto) 0.3 th/mm3 (1.0-4.8); Lymph % (Auto) 3.2 % (9.0-44.0); Mean Corpuscular HGB Conc 31.3 % (32.0-36.0); Mean Corpuscular Hemoglobin 26.6 pg (27.0-34.0); Mean Platelet Volume 7.9 fL (7.0-11.0); Mono # (Auto) 0.1 th/mm3 (0.0-0.9); Mono % (Auto) 1.7 % (0.0-8.0); Neut # (Auto) 7.5 th/mm3 (1.8-7.7); Platelet Count 170 th/mm3 (150-450); Red Blood Count 3.29 mil/mm3 (4.50-5.90); Red Cell Distribution Width 18.9 % (11.6-17.2); White Blood Count 7.9 th/mm3 (4.0-11.0)
[2018-01-19 06:05] LABS: Calcium 7.4 mg/dL (8.5-10.1); Carbon Dioxide 28.5 meq/L (21.0-32.0); Potassium 4.3 meq/L (3.5-5.1)
[2018-01-19 06:20] LABS: Calcium-Albumin Corrected 8.4 mg/dL (8.5-10.1); Total Protein 5.3 g/dL (6.4-8.2)
[2018-01-19] MEDS: Levothyroxine 100 MCG Tablet PO SCH (06:43)
--- NOTE | 2018-01-19 07:28 | P.PNOP ---
Subjective Interval history: s/p I&D right shoulder by Dr Tova Rangel yesterday. no changes. stable Physical Exam Vital signs: Vital Signs 01/18/18 08:00 01/18/18 08:11 01/18/18 09:00 Temperature 98.4 F Pulse Rate 78 90 Respiratory Rate 18 Blood Pressure 120/71 117/56 L Pulse Oximetry 98 91 L 01/18/18 10:00 01/18/18 11:00 01/18/18 12:18 Temperature 98.6 F Pulse Rate 75 78 Respiratory Rate 12 Blood Pressure 106/57 L 100/59 L Pulse Oximetry 97 96 01/18/18 12:30 01/18/18 13:00 01/18/18 14:00 Temperature 98.4 F Pulse Rate 83 85 80 Respiratory Rate 18 0 L 0 L Blood Pressure 100/59 L Pulse Oximetry 94 L 94 L 96 01/18/18 14:40 01/18/18 15:41 01/18/18 15:42 Temperature Pulse Rate 85 87 Respiratory Rate 105 H Blood Pressure 112/57 L Pulse Oximetry 01/18/18 16:00 01/18/18 17:00 01/18/18 18:00 Temperature 98.0 F Pulse Rate 81 79 86 Respiratory Rate 89 H 87 H 36 H Blood Pressure 112/57 L Pulse Oximetry 98 98 82 L 01/18/18 19:00 01/18/18 19:08 01/18/18 20:00 Temperature Pulse Rate 79 83 76 Respiratory Rate 24 27 H 28 H Blood Pressure 117/62 Pulse Oximetry 95 94 L 93 L 01/18/18 21:00 01/18/18 22:00 01/18/18 23:00 Temperature Pulse Rate 81 78 81 Respiratory Rate 27 H 23 27 H Blood Pressure Pulse Oximetry 100 98 01/19/18 00:00 01/19/18 01:00 01/19/18 02:00 Temperature Pulse Rate 75 85 78 Respiratory Rate 24 22 20 Blood Pressure Pulse Oximetry 99 98 100 01/19/18 03:00 01/19/18 04:00 01/19/18 05:00 Temperature 98.6 F Pulse Rate 77 76 80 Respiratory Rate 21 21 24 Blood Pressure Pulse Oximetry 100 100 100 01/19/18 06:00 Temperature Pulse Rate 80 Respiratory Rate 26 H Blood Pressure Pulse Oximetry 94 L Intake & Output 11/01/19/18 01/19/18 18:59 06:59 18:59 Intake Total 615 / 615 Output Total 445 / 445 Balance 170 / 170 Weight 76 kg Intake: IV 615 / 615 Flexbumin 25% Inj 100 ML @ 60 100 / 100 mls/hr IV.SIG Q12H [facility] Rx#: [id number] Vancomycin Inj 1,500 MG In NS 515 / 515 Inj 500 ML @ 250 mls/hr IV.SIG Q36H [facility] Rx#:[id number] Output: Stool 0 / 0 Urine Amount (Catheter) 400 / 400 Condom 400 / 400 Wound Drainage 45 / 45 # 1 Right Shoulder Left Shoulder Other: Date of Last Bowel Movement 01/13/18 01/13/18 # Bowel Movements 0 Narrative: RUE: dressings clean and dry. intact - Urinary Catheter Management Condom Cath placed during this visit: no Results - Labs CBC & Chem 7: 01/19/18 05:08 01/19/18 05:08 Laboratory Results - last 24 hr 01/15/18 01/18/18 01/19/18 11:44 03:30 05:08 WBC 7.9 RBC 3.29 L Hgb 8.8 L Hct 28.0 L MCV 85.0 MCH 26.6 L MCHC 31.3 L RDW 18.9 H Plt Count 170 MPV 7.9 Neut % (Auto) 95.0 H Lymph % (Auto) 3.2 L [place] % (Auto) 1.7 Eos % (Auto) 0.1 Baso % (Auto) 0.0 Neut # (Auto) 7.5 Lymph # (Auto) 0.3 L [place] # (Auto) 0.1 Eos # (Auto) 0.0 Baso # (Auto) 0.0 WBC Differential . Differential Comment Auto diff final Sodium Potassium Chloride Carbon Dioxide Anion Gap BUN Creatinine Estimated GFR Random Glucose Calcium Prot Corrected Calcium Total Protein Prealbumin 15 L Free [place] Light Chains 53.90 H Free [place] Light Chain 28.50 H Free [place]/Lambda Ratio 1.89 H 01/19/18 05:08 WBC RBC Hgb Hct MCV MCH MCHC RDW Plt Count MPV Neut % (Auto) Lymph % (Auto) [place] % (Auto) Eos % (Auto) Baso % (Auto) Neut # (Auto) Lymph # (Auto) [place] # (Auto) Eos # (Auto) Baso # (Auto) WBC Differential Differential Comment Sodium 143 Potassium 4.3 Chloride 108 H Carbon Dioxide 28.5 Anion Gap 7 BUN 53 H Creatinine 2.15 H Estimated GFR 30 L Random Glucose 160 H Calcium 7.4 L* Prot Corrected Calcium 8.4 L Total Protein 5.3 L Prealbumin Free [place] Light Chains Free [place]ambda Light Chain Free [place]/Lambda Ratio Microbiology 01/17/18 18:56 Fluid - Other Gram Stain - Final 01/17/18 18:56 Fluid - Other Body Fluid Culture - Preliminary 01/17/18 13:07 Blood - Peripheral Aerobic Blood Culture - Preliminary No growth in 1 day 01/17/18 13:07 Blood - Peripheral Anaerobic Blood Culture - Final QNS - See aerobic report. 01/17/18 13:01 Blood - Peripheral Aerobic Blood Culture - Preliminary No growth in 1 day 01/17/18 13:01 Blood - Peripheral Anaerobic Blood Culture - Preliminary No growth in 1 day - Procedures Right shoulder consent for aspiration obtained. Time out performed. Right shoulder prepped sterilely with alcohol and betadine. Sterile gloves doned. Right shoulder aspirated and sent for gram stain, culture, crystals, and cell count. 30 cc of purulent drainage aspirated and sent to lab. sterile dressing applied. Patient tolerated procedure well. Assessment and Plan - Assessment and Plan Abscess right shoulder. History of lumbar spinal decompression and fusion with MRSA postop, remote Surgery: I&D right shoulder, POD #5 PLAN: IV antibiotics. Source of sepsis unclear. 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 Possible indolent infection that has developed an abscess of the right shoulder. We will defer to neurosurgery and other specialists for overall management. I explained to the family that a second I&D is sometimes necessary if swelling persists. Review of preop MRI scan showed extensive abscess of right shoulder, intra-articular, extra-articular, anterior and posterior. Albumin 1.6. If oral intake with nutrition not adequate, consider nasogastric feeding tube Stable orthopedically Dr Bernardo back saturday to resume care
[2018-01-19] MEDS: predniSONE 20 MG Tablet PO SCH (08:04)
[2018-01-19] MEDS: Citalopram 20 MG Tablet PO SCH (08:04)
[2018-01-19] MEDS: Pantoprazole Sodium 20 MG DR Tablet PO SCH (08:04)
[2018-01-19] MEDS: amLODIPine 5 MG Tablet PO SCH (08:04)
--- NOTE | 2018-01-19 13:22 | P.PNNP ---
Subjective Interval history: Patient is obtunded, he was given sedation for WBC nuclear scan, he has rhonchi bilaterally with few moist rales Physical Exam Vital signs: Vital Signs 01/18/18 14:00 01/18/18 14:40 01/18/18 15:41 Temperature Pulse Rate 80 85 Respiratory Rate 0 L Blood Pressure 112/57 L Pulse Oximetry 96 01/18/18 15:42 01/18/18 16:00 01/18/18 17:00 Temperature 98.0 F Pulse Rate 87 81 79 Respiratory Rate 105 H 89 H 87 H Blood Pressure 112/57 L Pulse Oximetry 98 98 01/18/18 18:00 01/18/18 19:00 01/18/18 19:08 Temperature Pulse Rate 86 79 83 Respiratory Rate 36 H 24 27 H Blood Pressure 117/62 Pulse Oximetry 82 L 95 94 L 01/18/18 19:46 01/18/18 20:00 01/18/18 21:00 Temperature Pulse Rate 76 81 Respiratory Rate 18 28 H 27 H Blood Pressure Pulse Oximetry 93 L 01/18/18 22:00 01/18/18 23:00 01/19/18 00:00 Temperature Pulse Rate 78 81 75 Respiratory Rate 23 27 H 24 Blood Pressure Pulse Oximetry 100 98 99 01/19/18 01:00 01/19/18 02:00 01/19/18 03:00 Temperature Pulse Rate 85 78 77 Respiratory Rate 22 20 21 Blood Pressure Pulse Oximetry 98 100 100 01/19/18 04:00 01/19/18 05:00 01/19/18 06:00 Temperature 98.6 F Pulse Rate 76 80 80 Respiratory Rate 21 24 26 H Blood Pressure Pulse Oximetry 100 100 94 L 01/19/18 06:24 01/19/18 07:00 01/19/18 08:00 Temperature 97.5 F L Pulse Rate 68 83 84 Respiratory Rate 18 18 18 Blood Pressure 131/61 Pulse Oximetry 96 97 100 01/19/18 08:34 01/19/18 08:38 01/19/18 11:08 Temperature Pulse Rate 74 Respiratory Rate 18 18 Blood Pressure 116/64 Pulse Oximetry 96 01/19/18 11:09 01/19/18 12:00 Temperature 98.4 F Pulse Rate 71 78 Respiratory Rate 16 Blood Pressure Pulse Oximetry 98 97 Intake & Output 01/18/18 01/19/18 01/19/18 18:59 06:59 18:59 Intake Total 615 / 615 Output Total 445 / 445 Balance 170 / 170 Weight 76 kg Intake: IV 615 / 615 Flexbumin 25% Inj 100 ML @ 60 100 / 100 mls/hr IV.SIG Q12H [facility] Rx#: [id number] Vancomycin Inj 1,500 MG In NS 515 / 515 Inj 500 ML @ 250 mls/hr IV.SIG Q36H [facility] Rx#:[id number] Output: Stool 0 / 0 Urine Amount (Catheter) 400 / 400 Condom 400 / 400 Wound Drainage 45 / 45 # 1 Right Shoulder 25 25 Left Shoulder Other: Date of Last Bowel Movement 01/13/18 01/13/18 01/13/18 # Bowel Movements 0 Narrative: GENERAL: Well-nourished, well-developed obtunded patient. SKIN: Warm and dry. HEAD: Normocephalic. EYES: No scleral icterus. No injection or drainage. NECK: Supple, trachea midline. No JVD or lymphadenopathy. CARDIOVASCULAR: Regular rate and rhythm without murmurs, gallops, or rubs. RESPIRATORY: Breath sounds bilateral rales and rhonchi. GASTROINTESTINAL: Abdomen soft, non-tender, nondistended. EXTREMITIES: Mild edema NEUROLOGICAL: Obtunded - Urinary Catheter Management Condom Cath placed during this visit: no Assessment and Plan - Assessment (1) Acute renal failure Code(s): N17.9 - Acute kidney failure, unspecified Status: Acute (2) Atrial fibrillation Code(s): I48.91 - Unspecified atrial fibrillation Status: Acute Qualifiers: Atrial fibrillation type: unspecified Qualified Code(s): I48.91 - Unspecified atrial fibrillation (3) Sepsis Code(s): A41.9 - Sepsis, unspecified organism Status: Acute Qualifiers: Sepsis type: methicillin resistant Staphylococcus aureus Qualified Code(s) : A41.02 - Sepsis due to Methicillin resistant Staphylococcus aureus - Plan Patient is a 82-year-old male with history of renal insufficiency which is getting worse now most likely due to underlying sepsis MRSA, he is getting vancomycin as well, follow levels last level was 12.9, he also received contrast study on 01/14/2018 CT of the abdomen and pelvis, Patient is getting albumin however his creatinine is 2.1 also getting IV fluids at 80 cc an hour LR oral fluids cut back to 40 ounces a day Encourage Nepro feeding Avoid nephrotoxic agents if possible MRSA infection of the right shoulder has been drained as well as a CT-guided aspiration on the left side his abscess continue to monitor his progress, patient is on vancomycin consider changing antibiotic as creatinine has worsened Patient has fluid overload increased weight I will give Lasix 40 mg IV x1 monitor intake and output strictly Nuclear medicine scan to get report
--- NOTE | 2018-01-19 13:25 | P.DIET ---
Nutritional Evaluation Type of nutrition evaluation: initial Nutrition screening: [facility] [place] Scre[place] comments: 01/18 Malnutrition Subjective Subjective Comments: Pt's family reports pt is eating very little, he takes a few bites then is full. State they feed him and they will give him the Nepro. Objective - Diagnosis AMS, UTI, A-fib - Objective % IBW: 105 (IBW: 67.3kg) Body Weight Used for Calculations: Actual (70.4kg) Energy Needs - Lower Range (kCal/kg): 28 Energy Needs - Upper Range (kCal/kg): 33 Lower Limit kCal/kg (kCals): 1,971 Upper Limit kCal/kg (kCals): 2,323 Lower Limit Protein Factor (Grams per Kg): 1 Upper Limit Protein Factor (Grams per Kg): 1.2 Lower Protein Needs (Protein): 70 Upper Protein Needs (Protein): 84 Fluid Factor (ml/kg): 28 Estimated Fluid Needs (ml): 1,971 Dietitian Reviewed in Medical Record: Current diet, Curent medications, Intake & Output, Labs, Medical history Diet Order: Regular Oral Diet Intake Amount: Poor <50% Objective Comments: PMH: HTN, GERD, PUD, Hypothyroidism, Afib Labs include: Cr 2.15, eGFR 30, Alb 1.6, Prealb 18 Meds include: Synthroid, Vancomysin -BM Assessment Assessment: Pt at nutritional risk r/t dx and current clinical status. Pt positive for MRSA in R shoulder, other tests pending. Per family, pt's po intake has been poor, they are feeding him. Pt's nutritional needs as assessed above. Pt is on a regular diet with Nepro tid per [employer]. Each bottle contains 350 kcals and 20 gms protein. Labs reviewed-noted concern for low alb and prealb. However , alb and prealb are negative acute-phase proteins and reflect severity of the inflammatory process vs. nutritional status. Will monitor pt's po intake, clinical course. Recommendations: Continue regular diet with Nepro tid Dietitian to Monitor: Lab values, Renal labs, Supplement acceptance, Intake & Output, Diet tolerance, PO Intake, Medical course
--- NOTE | 2018-01-19 13:40 | NM ---
EXAM DATE: 01/19/2018 9:46 AM EST AGE/SEX: 82 years / Male INDICATIONS: Right shoulder abscess. CLINICAL DATA: This is the patient's initial encounter. Patient reports that signs and symptoms have been present for 1 week and indicates a pain score of 8/10. MEDICAL/SURGICAL HISTORY: Hypertension. Gastroesophageal reflux disease. Fusion, cervical. Rig ht shoulder. COMPARISON: No prior exams available for comparison. DOSE: 21 mCi Tc99m Ceretec labeled white blood cells IV PLANAR IMAGIN min 20 hrs SPECT IMAGIN hr , 24 hrs IMAGING: SPECT/CT imaging with fusion was performed. RADIATION DOSE: 11.02 CTDIvol(mGy) Multiple day study TECHNIQUE: Following the in vitro labeling of autologous white cells and reinjection, whole body sca n was performed at the specified times. Imaging was performed at specified times in sagittal, axial and coronal planes. Attenuation correction was performed with computed tomography and both the atten uation correction and non-attenuation corrected data sets were reviewed. FINDINGS: There is abnormal activity seen within the right glenohumeral joint. There is also some in creased activity seen around the right acromion. There is a drainage catheter in the left supraclavic ular region. There is mild increased activity seen around the left glenohumeral joint compared to the right glenohumeral joint. There is increased activity seen in the right C2-C3 facet joint. There is increased activity seen at the left C7-T1 facet joint. There are transpedicular screws at the L1-L5 levels. There is increased activity within L1-L2 disc l evel. The increased activity appears to extend into a anterior left lateral area of osteophyte format ion. There is also increased activity at the left L1 screw and left L2 screw and at the upper aspect of the left stabilization radha. There is a small focus of increased activity seen in the posterior right sacroiliac region. CONCLUSION: 1. Multiple areas of abnormal uptake including at the upper lumbar spine around the upper left surgi camilo hardware and at the L1-2 disc level. 2. Abnormal activity around the clip joints bilaterally being more prominent on the right. 3. Abnormal activity in the right C2-3 facet and the left C7-T1 facet. 4. Small area of signal abnormality in the posterior right sacroiliac joint region separate from amy gical hardware. 5. All these areas are concerning for active infection. Electronically signed by: Misbah Blair MD 01/19/2018 1:38 PM EST
[2018-01-19] MEDS ORDERED: Vancomycin Inj 1,250 MG in Sodium Chlor 0.9% Inj 250 ML IV.SIG ONE (14:00)
--- NOTE | 2018-01-19 14:34 | XR ---
EXAM DATE: 01/19/2018 2:31 PM EST AGE/SEX: 82 years / Male INDICATIONS: Short of breath CLINICAL DATA: This is the patient's subsequent encounter. Patient reports that signs and symptoms h ave been present for 4 - 6 days and indicates a pain score of Nonresponsive. MEDICAL/SURGICAL HISTORY: . Hypertension. Gastroesophageal reflux disease. . Fusion, cervica l. Right shoulder. COMPARISON: [facility] – [place], [place], CT CHEST W/O CONTRAST, 01/16/2018. . FINDINGS: Patchy bilateral perihilar opacities with small bilateral pleural effusions and associated airspace d isease at the lung bases. Mild diffuse interstitial prominence. Cardiac silhouette is enlarged with i ndistinct central pulmonary vascularity. Surgical drain noted in the left supraclavicular region. Oss eous structures are grossly intact. CONCLUSION: 1. Cardiomegaly with pulmonary edema pattern. 2. Small bilateral pleural effusions with associated lower lobe airspace disease, presumably atelect asis. Electronically signed by: Rebel Patterson MD 01/19/2018 2:33 PM EST
[2018-01-19] MEDS ORDERED: Naloxone Inj 0.4 MG/ML Vial IV.PUSH ONE (18:07)
--- NOTE | 2018-01-19 18:07 | P.PN ---
Subjective Interval history: The patient was seen earlier today. Went for imaging and was noted agitated imaging or not able to be read by radiology DrOlesya,'s he went second time for imaging after he received Ativan. The patient is very sleepy at this time. Vital signs are stable. Physical Exam Vital signs: Vital Signs 01/18/18 19:00 01/18/18 19:08 01/18/18 19:46 Temperature Pulse Rate 79 83 Respiratory Rate 24 27 H 18 Blood Pressure 117/62 Pulse Oximetry 95 94 L 01/18/18 20:00 01/18/18 21:00 01/18/18 22:00 Temperature Pulse Rate 76 81 78 Respiratory Rate 28 H 27 H 23 Blood Pressure Pulse Oximetry 93 L 100 01/18/18 23:00 01/19/18 00:00 01/19/18 01:00 Temperature Pulse Rate 81 75 85 Respiratory Rate 27 H 24 22 Blood Pressure Pulse Oximetry 98 99 98 01/19/18 02:00 01/19/18 03:00 01/19/18 04:00 Temperature 98.6 F Pulse Rate 78 77 76 Respiratory Rate 20 21 21 Blood Pressure Pulse Oximetry 100 100 100 01/19/18 05:00 01/19/18 06:00 01/19/18 06:24 Temperature Pulse Rate 80 80 68 Respiratory Rate 24 26 H 18 Blood Pressure 131/61 Pulse Oximetry 100 94 L 96 01/19/18 07:00 01/19/18 08:00 01/19/18 08:34 Temperature 97.5 F L Pulse Rate 83 84 Respiratory Rate 18 18 18 Blood Pressure Pulse Oximetry 97 100 01/19/18 08:38 01/19/18 11:08 01/19/18 11:09 Temperature Pulse Rate 74 71 Respiratory Rate 18 Blood Pressure 116/64 Pulse Oximetry 96 98 01/19/18 12:00 01/19/18 16:00 Temperature 98.4 F 97.6 F Pulse Rate 78 81 Respiratory Rate 16 17 Blood Pressure 116/56 L Pulse Oximetry 97 98 Intake & Output 01/18/18 01/19/18 01/19/18 18:59 06:59 18:59 Intake Total 615 / 615 Output Total 445 / 445 330 / 330 Balance 170 / 170 -330 / -330 Weight 76 kg Intake: IV 615 / 615 Flexbumin 25% Inj 100 ML @ 60 100 / 100 mls/hr IV.SIG Q12H [facility] Rx#: [id number] Vancomycin Inj 1,500 MG In NS 515 / 515 Inj 500 ML @ 250 mls/hr IV.SIG Q36H [facility] Rx#:[id number] Output: Stool 0 / 0 0 / 0 Urine Amount (Catheter) 400 / 400 300 / 300 Condom 400 / 400 300 / 300 Wound Drainage 45 / 45 30 / 30 # 1 Right Shoulder 25 / 25 Left Shoulder 20 / 20 30 / 30 Other: # Voids 1 Date of Last Bowel Movement 01/13/18 01/13/18 01/13/18 # Bowel Movements 0 0 Narrative: GENERAL: Pleasant elderly male in bed appears chronically ill, well-developed well-nourished, appears sleepy but in not acute distress at this time. CARDIOVASCULAR: Regular rate and rhythm without murmurs, gallops, or rubs. RESPIRATORY: Breath sounds equal bilaterally. No accessory muscle use. GASTROINTESTINAL: Abdomen soft, non-tender, nondistended. MUSCULOSKELETAL: Left supraclavicular mass, slightly tender to palpation drain in place. Dressing at the right shoulder c/d/i. No cyanosis. NEURO: Sleepy. Moves extremities no focal deficit. - Urinary Catheter Management Condom Cath placed during this visit: no Results - Labs CBC & Chem 7: 01/19/18 05:08 01/19/18 05:08 Laboratory Results - last 24 hr 01/15/18 01/19/18 01/19/18 11:44 05:08 05:08 WBC 7.9 RBC 3.29 L Hgb 8.8 L Hct 28.0 L MCV 85.0 MCH 26.6 L MCHC 31.3 L RDW 18.9 H Plt Count 170 MPV 7.9 Neut % (Auto) 95.0 H Lymph % (Auto) 3.2 L [place] % (Auto) 1.7 Eos % (Auto) 0.1 Baso % (Auto) 0.0 Neut # (Auto) 7.5 Lymph # (Auto) 0.3 L [place] # (Auto) 0.1 Eos # (Auto) 0.0 Baso # (Auto) 0.0 WBC Differential . Differential Comment Auto diff final Sodium 143 Potassium 4.3 Chloride 108 H Carbon Dioxide 28.5 Anion Gap 7 BUN 53 H Creatinine 2.15 H Estimated GFR 30 L Random Glucose 160 H Calcium 7.4 L* Prot Corrected Calcium 8.4 L Total Protein 5.3 L Prealbumin Free Celeste Light Chains 53.90 H Free Lambda Light Chain 28.50 H Free Cel[place]/Lambda Ratio 1.89 H 01/19/18 05:08 WBC RBC Hgb Hct MCV MCH MCHC RDW Plt Count MPV Neut % (Auto) Lymph % (Auto) [place] % (Auto) Eos % (Auto) Baso % (Auto) Neut # (Auto) Lymph # (Auto) [place] # (Auto) Eos # (Auto) Baso # (Auto) WBC Differential Differential Comment Sodium Potassium Chloride Carbon Dioxide Anion Gap BUN Creatinine Estimated GFR Random Glucose Calcium Prot Corrected Calcium Total Protein Prealbumin 18 L Free [place] Light Chains Free Lambda Light Chain Free [place]/Lambda Ratio Microbiology 01/17/18 13:07 Blood - Peripheral Aerobic Blood Culture - Preliminary No growth in 2 days 01/17/18 13:07 Blood - Peripheral Anaerobic Blood Culture - Final QNS - See aerobic report. 01/17/18 13:01 Blood - Peripheral Aerobic Blood Culture - Preliminary No growth in 2 days 01/17/18 13:01 Blood - Peripheral Anaerobic Blood Culture - Preliminary No growth in 2 days 01/17/18 18:56 Fluid - Other Gram Stain - Final 01/17/18 18:56 Fluid - Other Body Fluid Culture - Final S. aureus MRSA Micrococcus species 01/15/18 18:25 Wound - Shoulder Gram Stain - Final 01/15/18 18:25 Wound - Shoulder Wound Culture - Final S. aureus MRSA Micrococcus species 01/15/18 18:25 Wound - Shoulder Gram Stain - Final 01/15/18 18:25 Wound - Shoulder Wound Culture - Final S. aureus MRSA Micrococcus species 01/14/18 19:08 Fluid - Synovial Fluid Gram Stain - Final 01/14/18 19:08 Fluid - Synovial Fluid Body Fluid Culture - Final S. aureus MRSA Micrococcus species - Imaging Impressions WBC Scan Nuclear Medicine 01/18/18 00:00 CONCLUSION: 1. Multiple areas of abnormal uptake including at the upper lumbar spine around the upper left surgical hardware and at the L1-2 disc level. 2. Abnormal activity around the clip joints bilaterally being more prominent on the right. 3. Abnormal activity in the right C2-3 facet and the left C7-T1 facet. 4. Small area of signal abnormality in the posterior right sacroiliac joint region separate from surgical hardware. 5. All these areas are concerning for active infection. Chest X-Ray 01/19/18 00:00 CONCLUSION: 1. Cardiomegaly with pulmonary edema pattern. 2. Small bilateral pleural effusions with associated lower lobe airspace disease, presumably atelectasis. - Procedures Right shoulder consent for aspiration obtained. Time out performed. Right shoulder prepped sterilely with alcohol and betadine. Sterile gloves doned. Right shoulder aspirated and sent for gram stain, culture, crystals, and cell count. 30 cc of purulent drainage aspirated and sent to lab. sterile dressing applied. Patient tolerated procedure well. Assessment and Plan - Plan Pleasant 82 old male with hypertension, BPH, gastroesophageal reflux disease. The patient was brought in with acute encephalopathy. Recently he returned from [place] where he was treated for 3 consecutive urinary tract infections over the past 45 days. There is also concern for Guillain Monroy because he recently got a flu shot and then had weakness in his extremities after receiving the vaccination. After evaluation the patient was found to have right shoulder swelling and erythema. Patient was having low-grade fevers. Blood cultures came back positive for MRSA, and his right shoulder was also evaluated and then aspirated by the orthopedic surgery team. MRSA septicemia, septic right shoulder, L spine diskitis, left supraclavicular abscess Right shoulder effusion. septic right shoulder, s/p I&D Urinary tract infection. 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 Taper steroid Patient has been afebrile . Vital signs are fairly stable Blood cultures positive for MRSA. 2D echocardiogram did not show any findings consistent with vegetations. Patient may need JUSTIN. Continue vancomycin, Levaquin Patient also had a right shoulder effusion, orthopedics aspirated the shoulder which grew approximately 30 cc of purulent fluid. had follow-up with orthopedics for their recommendations drainage of that right shoulder. Continue IV antibiotics per infectious disease recommendations. Infectious disease following repeat blood cultures ntd Cardiothoracic surgeon was consulted for evaluation of supraclavicular mass/ poss abscess NM WBC scan 01/18/18 and 01/19/18. Patient received ativan as not able to tolerate CT imaging he was noted agitated in CT and imaging needed to be repeat. Imaging discussed with radiology and it seems patient with multiple focal infections bilateral shoulders, also back at the hardware with diskitis/ osteomyelitis. Neurology, ID, hem onc ff. CTS consulted no surgical intervention required at this time. IR consulted s/p CT-guided drainage of left posterior supraclavicular/posterior chest wall abscess on 01/17/18. KEKE on CKD. Noted elevated serum creatinine of 1.64. Likely KEKE on CKD. 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 Will add ensure with meals. Consult systems coordinator. BPH - Continue Flomax. DVT prophylaxis per surgeon Discussed with the patient, family very supportive at bedside, nurse.
[2018-01-19] MEDS: Melatonin 5 MG Tablet PO SCH (21:52)
[2018-01-20] MEDS: Levothyroxine 100 MCG Tablet PO SCH (06:01)
[2018-01-20 06:42] LABS: Baso % (Auto) 0.2 % (0.0-2.0); Eos % (Auto) 0.1 % (0.0-4.0); Hematocrit 27.6 % (39.0-51.0); Hemoglobin 8.4 gm/dL (13.0-17.0); Lymph # (Auto) 0.3 th/mm3 (1.0-4.8); Lymph % (Auto) 3.2 % (9.0-44.0); Mean Corpuscular Hemoglobin 26.2 pg (27.0-34.0); Mean Corpuscular Volume 85.8 fL (80.0-100.0); Mean Platelet Volume 7.7 fL (7.0-11.0); Mono # (Auto) 0.1 th/mm3 (0.0-0.9); Neut # (Auto) 8.9 th/mm3 (1.8-7.7); Neut % (Auto) 95.5 % (16.0-70.0); Platelet Count 177 th/mm3 (150-450); Red Blood Count 3.22 mil/mm3 (4.50-5.90); Red Cell Distribution Width 19.4 % (11.6-17.2); White Blood Count 9.4 th/mm3 (4.0-11.0)
[2018-01-20 06:44] LABS: Mean Corpuscular HGB Conc 30.5 % (32.0-36.0)
[2018-01-20 07:07] LABS: Calcium 7.5 mg/dL (8.5-10.1); Carbon Dioxide 27.3 meq/L (21.0-32.0); Potassium 4.5 meq/L (3.5-5.1)
[2018-01-20 07:08] LABS: Vancomycin,Random 31.6 Comment
--- NOTE | 2018-01-20 07:59 | P.PNNEU ---
Subjective Subjective Comments: no acute events Active Medications: Active Medications Acetaminophen (Tylenol) 650 mg PO Q4H PRN PRN Reason: Temp > 100.4 Hydrocodone Bitart/Acetaminophen (Randolph 5/325) 1 tab PO Q4H PRN PRN Reason: PAIN LESS THAN 5 ON SCALE Last Admin: 01/19/18 08:04 Dose: 1 tab Hydrocodone Bitart/Acetaminophen (Randolph 5/325) 2 tab PO Q6H PRN PRN Reason: PAIN SCALE 5 TO 10 Al Hydroxide/Mg Hydroxide (Milk Of Magnesia Liq) 30 ml PO Q12H PRN PRN Reason: Mild Constipation Amlodipine Besylate (Norvasc) 5 mg PO DAILY [facility] Last Admin: 01/19/18 08:04 Dose: 5 mg Bisacodyl (Dulcolax Supp) 10 mg RECTAL DAILY PRN PRN Reason: SEVERE CONSITIPATION Citalopram Hydrobromide (Celexa) 20 mg PO DAILY [facility] Last Admin: 01/19/18 08:04 Dose: 20 mg Sodium Chloride (Ns Inj) 500 mls @ 30 mls/hr IV.SIG .Q10H [facility] Lactated Ringer's (Lr 1000 Ml Inj) 1,000 mls @ 80 mls/hr IV.CONT .[id number] [facility] Last Admin: 01/20/18 01:55 Dose: 80 mls/hr Albumin Human (Flexbumin 25% Inj) 100 mls @ 60 mls/hr IV.SIG Q12H [facility] Last Infusion: 01/18/18 07:47 Dose: Infused Lactulose (Lactulose Liq) 30 ml PO DAILY PRN PRN Reason: SEVERE CONSITIPATION Levofloxacin (Levaquin) 750 mg PO Q48H [facility] Levothyroxine Sodium (Synthroid) 100 mcg PO DAILY@0600 [facility] Last Admin: 01/20/18 06:01 Dose: 100 mcg Lorazepam (Ativan Inj) 1 mg IV.PUSH CAT DRIVER PRN PRN Reason: BEFORE PPROCEDURES /IMAGING Last Admin: 01/19/18 10:18 Dose: 1 mg Melatonin (Melatonin) 5 mg PO HS [facility] Last Admin: 01/19/18 21:52 Dose: Not Given Metoprolol Succinate (Toprol Xl) 50 mg PO DAILY [facility] Last Admin: 01/19/18 08:04 Dose: 50 mg Morphine Sulfate (Morphine Inj) 2 mg IV.PUSH Q3H PRN PRN Reason: pain 1-10 when npo Last Admin: 01/17/18 08:35 Dose: 2 mg Ondansetron HCl (Zofran Inj) 4 mg IV.PUSH Q6H PRN PRN Reason: NAUSEA OR VOMITING Pantoprazole Sodium (Protonix) 20 mg PO DAILY [facility] Last Admin: 01/19/18 08:04 Dose: 20 mg Pharmacy Profile Note (Vancomycin Consult Pharmacy) 1 each OTHER UNSCH PRN PRN Reason: Pharmacy to dose Prednisone (Deltasone) 10 mg PO DAILY [facility] Stop: 01/21/18 09:01 Senna/Docusate Sodium (Diana-Colace) 1 tab PO BID [facility] Last Admin: 01/19/18 21:52 Dose: Not Given Sennosides (Senokot) 17.2 mg PO Q12H PRN PRN Reason: Moderate Constipation Sodium Chloride (Ns Flush) 2 ml IV.FLUSH BID [facility] Last Admin: 01/19/18 21:52 Dose: Not Given Sodium Chloride (Ns Flush) 2 ml IV.FLUSH PRN PRN PRN Reason: FLUSH AFTER USING IV ACCESS Tamsulosin HCl (Flomax) 0.4 mg PO DAILY [facility] Last Admin: 01/19/18 08:04 Dose: 0.4 mg Temazepam (Restoril) 7.5 mg PO HS PRN PRN Reason: INSOMNIA Allergies/Adverse Reactions: Allergies Allergy/AdvReac Type Severity Reaction Status Date / Time amoxicillin Allergy Severe Hives Verified 01/13/18 20:44 Review of Systems All other systems reviewed negative except as stated in HPI Physical Exam Vital signs: Vital Signs 01/19/18 08:00 01/19/18 08:34 01/19/18 08:38 Temperature 97.5 F L Pulse Rate 84 74 Respiratory Rate 18 18 18 Blood Pressure Pulse Oximetry 100 96 01/19/18 11:08 01/19/18 11:09 01/19/18 12:00 Temperature 98.4 F Pulse Rate 71 78 Respiratory Rate 16 Blood Pressure 116/64 Pulse Oximetry 98 97 01/19/18 16:00 01/19/18 20:00 01/20/18 00:00 Temperature 97.6 F 97.3 F L 97.6 F Pulse Rate 81 77 73 Respiratory Rate 17 20 20 Blood Pressure 116/56 L 132/72 128/65 Pulse Oximetry 98 94 L 94 L 01/20/18 04:00 Temperature 97.9 F Pulse Rate 104 H Respiratory Rate 20 Blood Pressure 153/55 H Pulse Oximetry 100 Intake & Output 01/19/18 01/20/18 01/20/18 18:59 06:59 18:59 Intake Total 1262.5 / 1262.5 Output Total 330 / 330 550 / 550 Balance -330 / -330 712.5 / 712.5 Weight 77 kg Intake: IV 1262.5 / 1262.5 LR 1000 mL Inj 1,000 ML @ 80 1000 / 1000 mls/hr IV.CONT .[id number] [facility] Rx# :[id number] Vancomycin Inj 1,250 MG In NS 262.5 / 262.5 Inj 250 ML @ 250 mls/hr IV.SIG ONCE ONE Rx#:[id number] Output: Urine 550 / 550 Stool 0 / 0 Urine Amount (Catheter) 300 / 300 Condom 300 / 300 Wound Drainage / Left Shoulder Other: # Voids 1 1 Date of Last Bowel Movement 01/13/18 01/19/18 # Bowel Movements 0 1 Narrative: GENERAL: in NAD, SKIN: Warm and dry. HEAD: Atraumatic. Normocephalic. EYES: Pupils equal and round. No scleral icterus. ENT: No nasal bleeding or discharge. NECK: Trachea midline. CARDIOVASCULAR: Regular rate and rhythm. RESPIRATORY: mildy tachypneic GASTROINTESTINAL: Abdomen soft, non-tender, nondistended. MUSCULOSKELETAL: Extremities without clubbing, cyanosis, or edema. NEUROLOGICAL: Awake, follows motor request, extraocular movements intact no facial asymmetry tongue midline. atrophy in quads, calves, hip flexor weakness, He is able raise both lower extremity to gravity does display mild atrophy in the calves. Plantar flexion dorsiflexion of both feet strength 4 out of 5. Reflexes were 1-2+ plantarflex, mild ankle clonus. mild ue myoclonus, Proprioception pinprick were normal. Gait not assessed secondary to fall risk PSYCHIATRIC: Calm - Constitutional no acute distress - Routine HEENT Exam Head: Present: normocephalic - Urinary Catheter Management Condom Cath placed during this visit: no Objective Laboratory Results - last 24 hr 11/25/18 11/26/18 11/26/18 05:08 06:21 06:21 WBC RBC Hgb Hct MCV MCH MCHC RDW Plt Count MPV Neut % (Auto) Lymph % (Auto) [place] % (Auto) Eos % (Auto) Baso % (Auto) Neut # (Auto) Lymph # (Auto) [place] # (Auto) Eos # (Auto) Baso # (Auto) WBC Differential Differential Comment Sodium 143 Potassium 4.5 Chloride 110 H Carbon Dioxide 27.3 Anion Gap 6 BUN 52 H Creatinine 1.78 H Estimated GFR 37 L Random Glucose 136 H Calcium 7.5 L B-Natriuretic Peptide 2451 H Prealbumin 18 L Random Vancomycin 31.6 01/20/18 06:21 WBC 9.4 RBC 3.22 L Hgb 8.4 L Hct 27.6 L MCV 85.8 MCH 26.2 L MCHC 30.5 L RDW 19.4 H Plt Count 177 MPV 7.7 Neut % (Auto) 95.5 H Lymph % (Auto) 3.2 L [place] % (Auto) 1.0 Eos % (Auto) 0.1 Baso % (Auto) 0.2 Neut # (Auto) 8.9 H Lymph # (Auto) 0.3 L [place] # (Auto) 0.1 Eos # (Auto) 0.0 Baso # (Auto) 0.0 WBC Differential . Differential Comment Auto diff final Sodium Potassium Chloride Carbon Dioxide Anion Gap BUN Creatinine Estimated GFR Random Glucose Calcium B-Natriuretic Peptide Prealbumin Random Vancomycin Microbiology 01/17/18 13:07 Aerobic Blood Culture - Preliminary Blood - Peripheral No growth in 2 days Anaerobic Blood Culture - Final QNS - See aerobic report. 01/17/18 13:01 Aerobic Blood Culture - Preliminary Blood - Peripheral No growth in 2 days Anaerobic Blood Culture - Preliminary No growth in 2 days 01/17/18 18:56 Gram Stain - Final Fluid - Other Body Fluid Culture - Final S. aureus MRSA Micrococcus species 01/15/18 18:25 Gram Stain - Final Wound - Shoulder Wound Culture - Final S. aureus MRSA Micrococcus species 01/15/18 18:25 Gram Stain - Final Wound - Shoulder Wound Culture - Final S. aureus MRSA Micrococcus species 01/14/18 19:08 Gram Stain - Final Fluid - Synovial Fluid Body Fluid Culture - Final S. aureus MRSA Micrococcus species Review/Management - Diagnosis (1) Disuse muscle atrophy Code(s): M62.50 - Muscle wasting and atrophy, not elsewhere classified, unspecified site Status: Acute Current Visit: Yes (2) Weakness Code(s): R53.1 - Weakness Status: Acute Current Visit: Yes (3) Acute UTI Code(s): N39.0 - Urinary tract infection, site not specified Status: Acute Current Visit: Yes (4) Atrial fibrillation Code(s): I48.91 - Unspecified atrial fibrillation Status: Acute Current Visit: Yes (5) Encephalomalacia on imaging study Code(s): G93.89 - Other specified disorders of brain Status: Acute Current Visit: Yes (6) Renal insufficiency Code(s): N28.9 - Disorder of kidney and ureter, unspecified Status: Acute Current Visit: Yes (7) MRSA (methicillin resistant Staphylococcus aureus) Code(s): A49.02 - Methicillin resistant Staphylococcus aureus infection, unspecified site Status: Acute Current Visit: Yes - Review/Management Plan: Subacute progressive weakness apparently occurring couple days after flu vaccine CK level and prealbumin is low disuse atrophy 2/2 sepsis Moderate left frontal encephalomalacia appearing to be from meningioma resection Recommendation disuse muscle atrophy occasional myoclonus- likely 2/2 uremia watch pulm status nutritional support will need aggressive inpt rehab (4) Atrial fibrillation Qualifiers: Atrial fibrillation type: unspecified Qualified Code(s): I48.91 - Unspecified atrial fibrillation
[2018-01-20] MEDS: Pantoprazole Sodium 20 MG DR Tablet PO SCH (11:11)
[2018-01-20] MEDS: levoFLOXacin 750 MG Tablet PO SCH (11:11)
[2018-01-20] MEDS: predniSONE 10 MG Tablet PO SCH (11:12)
[2018-01-20] MEDS: Citalopram 20 MG Tablet PO SCH (11:12)
[2018-01-20] MEDS: amLODIPine 5 MG Tablet PO SCH (11:12)
[2018-01-20] MEDS: Senna/Docusate Sodium 8.6/50 MG Tablet PO SCH ×2 (11:12→20:25)
[2018-01-20 12:00] LABS: ABG Base Excess -1.2 mmol/L (-2-2); ABG PCO2 74 mmHg (38-42); ABG PO2 122 mmHg (61-120)
--- NOTE | 2018-01-20 12:09 | XR ---
EXAM DATE: 01/20/2018 12:03 PM EST AGE/SEX: 82 years / Male INDICATIONS: Short of breath. CLINICAL DATA: This is the patient's initial encounter. Patient reports that signs and symptoms have been present for 2 weeks and indicates a pain score of 0/10. MEDICAL/SURGICAL HISTORY: . Hypertension. Hypothyroidism. . Fusion, lumbar. Left shoulder drai n. [place] [facility] [place]. . FINDINGS: There is dense consolidation and effusion in the right lung base. The appearance may reflect middle a nd lower lobe collapse. Vascular congestion and patchy infiltrate is present elsewhere in the lungs. CONCLUSION: Interval development of dense consolidative change in the right lung base. Electronically signed by: Misbah Sanchez MD 01/20/2018 12:07 PM EST
--- NOTE | 2018-01-20 12:10 | P.PNOP ---
Subjective Interval history: The patient is resting in bed in moderate acute distress. [facility] was called for this patient due to low oxygen saturation which was in the 70s and 80s. The [facility] team was at bedside obtaining a stat chest x-ray and ABG. The patient's family is at bedside. The patient does follow commands and answers questions appropriately. The patient's family states he has been more lethargic over the last day or so. The patient reports a decrease in pain about the right shoulder. The patient is complaining of some pain with movement of the left shoulder. The patient denies chest pain but does complain of some shortness of breath. Physical Exam Vital signs: Vital Signs 01/19/18 12:00 01/19/18 16:00 01/19/18 20:00 Temperature 98.4 F 97.6 F 97.3 F L Pulse Rate 78 81 77 Respiratory Rate 16 17 20 Blood Pressure 116/56 L 132/72 Pulse Oximetry 97 98 94 L 01/20/18 00:00 01/20/18 04:00 01/20/18 08:00 Temperature 97.6 F 97.9 F 97.4 F L Pulse Rate 73 104 H 83 Respiratory Rate 20 20 18 Blood Pressure 128/65 153/55 H 134/87 Pulse Oximetry 94 L 100 90 L Intake & Output 01/19/18 01/20/18 01/20/18 18:59 06:59 18:59 Intake Total 1262.5 / 1262.5 Output Total 330 / 330 550 / 550 Balance -330 / -330 712.5 / 712.5 Weight 77 kg Intake: IV 1262.5 / 1262.5 LR 1000 mL Inj 1,000 ML @ 80 1000 / 1000 mls/hr IV.CONT .[id number] [facility] Rx# :[id number] Vancomycin Inj 1,250 MG In NS 262.5 / 262.5 Inj 250 ML @ 250 mls/hr IV.SIG ONCE ONE Rx#:[id number] Output: Urine 550 / 550 Stool 0 / 0 Urine Amount (Catheter) 300 / 300 Condom 300 / 300 Wound Drainage 30 / 30 Left Shoulder 30 / 30 Other: # Voids 1 1 Date of Last Bowel Movement 01/13/18 01/19/18 # Bowel Movements 0 1 Narrative: The patient's dressing is clean, dry, and intact. The patient has good sensation to light touch distally. EPL, APB, JOSE are intact. 2 + radial pulse. Mild ecchymosis to upper arm. The patient's incision is well approximated with no redness or signs of infection. The patient's sutures are intact with no active drainage. The patient does have what appears to be a small to moderate joint effusion of the left shoulder. There is a drain currently in place about the left shoulder. The patient has limited active and passive range of motion of the bilateral shoulders. The patient has 2+ pitting edema about the bilateral lower extremities. The patient has 1+ posterior tibialis pulses bilaterally. - Urinary Catheter Management Condom Cath placed during this visit: no Results - Labs CBC & Chem 7: 01/20/18 06:21 01/20/18 06:21 Laboratory Results - last 24 hr 01/20/18 01/20/18 01/20/18 06:21 06:21 06:21 WBC 9.4 RBC 3.22 L Hgb 8.4 L Hct 27.6 L MCV 85.8 MCH 26.2 L MCHC 30.5 L RDW 19.4 H Plt Count 177 MPV 7.7 Neut % (Auto) 95.5 H Lymph % (Auto) 3.2 L [place] % (Auto) 1.0 Eos % (Auto) 0.1 Baso % (Auto) 0.2 Neut # (Auto) 8.9 H Lymph # (Auto) 0.3 L [place] # (Auto) 0.1 Eos # (Auto) 0.0 Baso # (Auto) 0.0 WBC Differential . Differential Comment Auto diff final Sodium 143 Potassium 4.5 Chloride 110 H Carbon Dioxide 27.3 Anion Gap 6 BUN 52 H Creatinine 1.78 H Estimated GFR 37 L POC Glucose Random Glucose 136 H Calcium 7.5 L B-Natriuretic Peptide 2451 H Random Vancomycin 31.6 01/20/18 11:34 WBC RBC Hgb Hct MCV MCH MCHC RDW Plt Count MPV Neut % (Auto) Lymph % (Auto) [place] % (Auto) Eos % (Auto) Baso % (Auto) Neut # (Auto) Lymph # (Auto) [place] # (Auto) Eos # (Auto) Baso # (Auto) WBC Differential Differential Comment Sodium Potassium Chloride Carbon Dioxide Anion Gap BUN Creatinine Estimated GFR POC Glucose 198 H Random Glucose Calcium B-Natriuretic Peptide Random Vancomycin Microbiology 01/17/18 13:07 Blood - Peripheral Aerobic Blood Culture - Preliminary No growth in 3 days 01/17/18 13:07 Blood - Peripheral Anaerobic Blood Culture - Final QNS - See aerobic report. 01/17/18 13:01 Blood - Peripheral Aerobic Blood Culture - Preliminary No growth in 3 days 01/17/18 13:01 Blood - Peripheral Anaerobic Blood Culture - Preliminary No growth in 3 days 01/17/18 18:56 Fluid - Other Gram Stain - Final 01/17/18 18:56 Fluid - Other Body Fluid Culture - Final S. aureus MRSA Micrococcus species 01/15/18 18:25 Wound - Shoulder Gram Stain - Final 01/15/18 18:25 Wound - Shoulder Wound Culture - Final S. aureus MRSA Micrococcus species 01/15/18 18:25 Wound - Shoulder Gram Stain - Final 01/15/18 18:25 Wound - Shoulder Wound Culture - Final S. aureus MRSA Micrococcus species 01/14/18 19:08 Fluid - Synovial Fluid Gram Stain - Final 01/14/18 19:08 Fluid - Synovial Fluid Body Fluid Culture - Final S. aureus MRSA Micrococcus species - Imaging Impressions WBC Scan Nuclear Medicine 01/18/18 00:00 CONCLUSION: 1. Multiple areas of abnormal uptake including at the upper lumbar spine around the upper left surgical hardware and at the L1-2 disc level. 2. Abnormal activity around the clip joints bilaterally being more prominent on the right. 3. Abnormal activity in the right C2-3 facet and the left C7-T1 facet. 4. Small area of signal abnormality in the posterior right sacroiliac joint region separate from surgical hardware. 5. All these areas are concerning for active infection. Chest X-Ray 01/19/18 00:00 CONCLUSION: 1. Cardiomegaly with pulmonary edema pattern. 2. Small bilateral pleural effusions with associated lower lobe airspace disease, presumably atelectasis. Assessment and Plan - Assessment and Plan Abscess right shoulder. 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 Surgery: I&D right shoulder, POD #6 PLAN: 1. IV antibiotics per infectious disease. Intraoperative cultures taken of the right shoulder are positive for MRSA. Recent cultures taken of the left supraclavicular joint also are positive for MRSA. 2. Source of sepsis unclear. 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 Possible indolent infection that has developed an abscess of the right shoulder. We will defer to neurosurgery and other specialists for overall management. I have ordered MRIs of the left shoulder and pelvis to evaluate these areas for infection. Neurosurgery consulted and will evaluate spine for infection. I took time today to discuss this plan of care with the family at bedside. I was informed by family that they do not want any MRIs until the patient is more stable. The family understands the possibility for infection about the left shoulder, right SI joint, and cervical and lumbar spine. At this time we will follow the patient's family's wishes. MRIs will be obtained as soon as possible. The patient's family also understands there is still potential for further surgery to the right shoulder and knee surgeries involving the aforementioned areas. 3. Due to the patient's recent deterioration and oxygen saturation and elevated BNP the patient will be transferred back to [facility] for closer observation. 4. We will continue to follow the patient's clinical course orthopedically.
[2018-01-20] MEDS: Albumin Human 25% Inj 100 ML IV.SIG SCH ×4 (12:46→17:29)
--- NOTE | 2018-01-20 12:54 | P.PN ---
Subjective Interval history: The patient was up in the bed and was eating breakfast in the morning per family. After he ate he felt much sob and became more lethargic. Patient is noted dessating. CXR stat and abg ordered. Patient is with fluid overload, spoke with [facility] nurse , patient received stat 40 mg IV of lasix and duonebs. He is placed on NRM and was switched to BiPAP. Nitrating Acid Mixer Dr Mcghee evaluated patient. Patient is transferred to [facility] floor. Had very good urine OP of 2L after lasix ABG reviewed with Dr Reed as well Patient is placed on bipap with some improvement. Physical Exam Vital signs: Vital Signs 01/19/18 16:00 01/19/18 20:00 01/20/18 00:00 Temperature 97.6 F 97.3 F L 97.6 F Pulse Rate 81 77 73 Respiratory Rate 17 20 20 Blood Pressure 116/56 L 132/72 128/65 Pulse Oximetry 98 94 L 94 L 01/20/18 04:00 01/20/18 08:00 01/20/18 12:22 Temperature 97.9 F 97.4 F L Pulse Rate 104 H 83 Respiratory Rate 20 18 Blood Pressure 153/55 H 134/87 Pulse Oximetry 100 90 L 99 Intake & Output 01/19/18 01/20/18 01/20/18 18:59 06:59 18:59 Intake Total 1262.5 / 1262.5 800 / 800 Output Total 330 / 330 550 / 550 Balance -330 / -330 712.5 / 712.5 800 / 800 Weight 77 kg Intake: IV 1262.5 / 1262.5 800 / 800 LR 1000 mL Inj 1,000 ML @ 80 1000 / 1000 800 / 800 mls/hr IV.CONT .[id number] [facility] Rx# :[id number] Vancomycin Inj 1,250 MG In NS 262.5 / 262.5 Inj 250 ML @ 250 mls/hr IV.SIG ONCE ONE Rx#:[id number] Output: Urine 550 / 550 Stool 0 / 0 Urine Amount (Catheter) 300 / 300 Condom 300 / 300 Wound Drainage 30 / 30 Left Shoulder 30 / 30 Other: # Voids 1 1 Date of Last Bowel Movement 01/13/18 01/19/18 # Bowel Movements 0 1 Narrative: General: Very pleasant elderly gentleman in severe respiratory distress, dessating and also noted more lethargic Lungs: Diffuse crackles throughout, moderate wheezes, decreased breath sounds right base. Tachypneic. dessating on NC , placed on NRm and then on Bipap. Heart: Irregular irregular, rate 92-97, marked jugular venous distention Abdomen: Soft, no guarding, no tenderness, bowel sounds are present Extremities: Generalized edema upper and lower extremities, warm, well-perfused Neuro: Moves 4 extremities spontaneously. Opens eyes to voice and focuses and tracks. Nods head to questions. Protects airway well. - Urinary Catheter Management Condom Cath placed during this visit: no Results - Labs CBC & Chem 7: 01/20/18 06:21 01/20/18 06:21 Laboratory Results - last 24 hr 01/20/18 01/20/18 01/20/18 06:21 06:21 06:21 WBC 9.4 RBC 3.22 L Hgb 8.4 L Hct 27.6 L MCV 85.8 MCH 26.2 L MCHC 30.5 L RDW 19.4 H Plt Count 177 MPV 7.7 Neut % (Auto) 95.5 H Lymph % (Auto) 3.2 L [place] % (Auto) 1.0 Eos % (Auto) 0.1 Baso % (Auto) 0.2 Neut # (Auto) 8.9 H Lymph # (Auto) 0.3 L [place] # (Auto) 0.1 Eos # (Auto) 0.0 Baso # (Auto) 0.0 WBC Differential . Differential Comment Auto diff final Puncture Site Patient Temperature O2 Saturation ABG pH ABG pCO2 ABG pO2 ABG HCO3 ABG O2 Content ABG Base Excess ABG Methemoglobin Blane Test Hemoglobin Carboxyhemoglobin O2 Delivery Device Liter Flow Critical Value Sodium 143 Potassium 4.5 Chloride 110 H Carbon Dioxide 27.3 Anion Gap 6 BUN 52 H Creatinine 1.78 H Estimated GFR 37 L POC Glucose Random Glucose 136 H Calcium 7.5 L B-Natriuretic Peptide 2451 H Random Vancomycin 31.6 01/20/18 01/20/18 11:34 11:51 WBC RBC Hgb Hct MCV MCH MCHC RDW Plt Count MPV Neut % (Auto) Lymph % (Auto) [place] % (Auto) Eos % (Auto) Baso % (Auto) Neut # (Auto) Lymph # (Auto) [place] # (Auto) Eos # (Auto) Baso # (Auto) WBC Differential Differential Comment Puncture Site Right radial Patient Temperature 98.6 O2 Saturation 95 ABG pH 7.18 L* ABG pCO2 74 H* ABG pO2 122 H ABG HCO3 26 ABG O2 Content 11.6 L ABG Base Excess -1.2 ABG Methemoglobin 1.2 Blane Test Present Hemoglobin 8.5 L Carboxyhemoglobin 0.0 O2 Delivery Device Nrb Liter Flow 15.00 Critical Value Yes Sodium Potassium Chloride Carbon Dioxide Anion Gap BUN Creatinine Estimated GFR POC Glucose 198 H Random Glucose Calcium B-Natriuretic Peptide Random Vancomycin Microbiology 01/17/18 13:07 Blood - Peripheral Aerobic Blood Culture - Preliminary No growth in 3 days 01/17/18 13:07 Blood - Peripheral Anaerobic Blood Culture - Final QNS - See aerobic report. 01/17/18 13:01 Blood - Peripheral Aerobic Blood Culture - Preliminary No growth in 3 days 01/17/18 13:01 Blood - Peripheral Anaerobic Blood Culture - Preliminary No growth in 3 days 01/17/18 18:56 Fluid - Other Gram Stain - Final 01/17/18 18:56 Fluid - Other Body Fluid Culture - Final S. aureus MRSA Micrococcus species 01/15/18 18:25 Wound - Shoulder Gram Stain - Final 01/15/18 18:25 Wound - Shoulder Wound Culture - Final S. aureus MRSA Micrococcus species 01/15/18 18:25 Wound - Shoulder Gram Stain - Final 01/15/18 18:25 Wound - Shoulder Wound Culture - Final S. aureus MRSA Micrococcus species 01/14/18 19:08 Fluid - Synovial Fluid Gram Stain - Final 01/14/18 19:08 Fluid - Synovial Fluid Body Fluid Culture - Final S. aureus MRSA Micrococcus species - Imaging Impressions WBC Scan Nuclear Medicine 01/18/18 00:00 CONCLUSION: 1. Multiple areas of abnormal uptake including at the upper lumbar spine around the upper left surgical hardware and at the L1-2 disc level. 2. Abnormal activity around the clip joints bilaterally being more prominent on the right. 3. Abnormal activity in the right C2-3 facet and the left C7-T1 facet. 4. Small area of signal abnormality in the posterior right sacroiliac joint region separate from surgical hardware. 5. All these areas are concerning for active infection. Chest X-Ray 01/19/18 00:00 CONCLUSION: 1. Cardiomegaly with pulmonary edema pattern. 2. Small bilateral pleural effusions with associated lower lobe airspace disease, presumably atelectasis. Chest X-Ray 01/20/18 11:30 CONCLUSION: Interval development of dense consolidative change in the right lung base. - Procedures Right shoulder consent for aspiration obtained. Time out performed. Right shoulder prepped sterilely with alcohol and betadine. Sterile gloves doned. Right shoulder aspirated and sent for gram stain, culture, crystals, and cell count. 30 cc of purulent drainage aspirated and sent to lab. sterile dressing applied. Patient tolerated procedure well. Assessment and Plan - Plan Pleasant 82 old male with hypertension, BPH, gastroesophageal reflux disease. The patient was brought in with acute encephalopathy. Recently he returned from [place] where he was treated for 3 consecutive urinary tract infections over the past 45 days. There is also concern for Guillain [place] because he recently got a flu shot and then had weakness in his extremities after receiving the vaccination. After evaluation the patient was found to have right shoulder swelling and erythema. Patient was having low-grade fevers. Blood cultures came back positive for MRSA, and his right shoulder was also evaluated and then aspirated by the orthopedic surgery team. Acute combined hypercapnic and hypoxemic respiratory failure requiring BiPAP Fluid overload/Pulmonary edema - CXR reviewed, ABG reviewed and findings discussed with Dr Mcghee Nitrating Acid Mixer , patient is placed on BiPAP -BNP elevated 2500s -Severe respiratory distress requiring BiPAP noninvasive ventilation probably need intubation -philip -Continue IV lasix monitor closely kidney function. -Scott placed for accurate I&Os and BPH MRSA septicemia, septic right shoulder, L spine diskitis, left supraclavicular abscess Right shoulder effusion. septic right shoulder, s/p I&D Urinary tract infection. 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 Taper steroid Patient has been afebrile . Vital signs are fairly stable Blood cultures positive for MRSA. 2D echocardiogram did not show any findings consistent with vegetations. Patient may need JUSTIN. Continue vancomycin, Levaquin Patient also had a right shoulder effusion, orthopedics aspirated the shoulder which grew approximately 30 cc of purulent fluid. had follow-up with orthopedics for their recommendations drainage of that right shoulder. Continue IV antibiotics per infectious disease recommendations. Infectious disease following repeat blood cultures ntd Cardiothoracic surgeon was consulted for evaluation of supraclavicular mass/ poss abscess NM WBC scan 01/18/18 and 01/19/18. Patient received ativan as not able to tolerate CT imaging he was noted agitated in CT and imaging needed to be repeat. Imaging discussed with radiology Dr and it seems patient with multiple focal infections bilateral shoulders, also back at the hardware with diskitis/ osteomyelitis. Neurology, ID, hem onc ff. CTS consulted no surgical intervention required at this time. IR consulted s/p CT-guided drainage of left posterior supraclavicular/posterior chest wall abscess on 01/17/18. KEKE on CKD. Noted elevated serum creatinine of 1.64. Likely KEKE on CKD. 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 Will add ensure with meals. Consult nursing coordinator. BPH - Continue Flomax. DVT prophylaxis per surgeon Discussed with the patient, family very supportive at bedside, nurse, Dr Gorman ID specialist, Dr Mcghee metal buggy operator.
--- NOTE | 2018-01-20 13:32 | P.CONCC ---
History of Present Illness Service: Critical care medicine Consult date: 01/20/18 Reason for Consult: Acute respiratory failure Primary Care Provider: Everton Velazquez MD Chief Complaint: Respiratory distress History of Present Illness: This 82-year-old gentleman was transferred emergently from the floor to the surgical intensive care unit because of rapid onset combined hypoxemic and hypercapnic respiratory failure. On arrival he has diffuse crackles throughout both lung santizo and his neck veins are distended. On admission several days ago he was dehydrated and had an element of acute kidney injury. His weight is up about 5 kg since admission though his renal function has improved. On arrival he is breathing 40 times a minute on a nonrebreathing mask with pH of 7.18 and P CO2 of 74. His acidosis is purely respiratory and associated with bronchospasm from fluid overload. B natruretic peptide is elevated to greater than 2000. Other pertinent major problems include septic joint drainage and treatment. Review of Systems No chest pain. Severe shortness of breath. PMFSH - History History Provided By: Family Member - Medical History Medical History: Medical History (Last Updated 01/20/18 @ 09:44 by Matilde Romero) Atrial fibrillation History of MRSA infection Onset Date: ~01/14/18 BPH (benign prostatic hyperplasia) Depression HTN (hypertension) Hypothyroid PUD (peptic ulcer disease) - Surgical History Surgical History: Surgical History (Last Reviewed 01/19/18 @ 12:06 by Brina Hernandez) H/O neck surgery - Family History Family History: Family History (Last Reviewed 01/19/18 @ 12:06 by Brina Hernandez) Other Family history normal - Tobacco History Second Hand Smoke Exposure: No Tobacco Use In Past 30 Days: No Smoking Status: Former smoker Tobacco Type: Cigars - Alcohol History How Often Do You Have a Drink Containing Alcohol: Never - Substance Use History Substance History: No History of Abuse - Travel History Recent Travel in the [place] Within the Last 8 Weeks: No Recent Travel Out of the Country Within the Last 8 Weeks: Yes - Immunization History Tetanus Immunization: Unsure Hx Influenza Vaccine This Season: Yes Medications and Allergies Active Medications: Active Medications Acetaminophen (Tylenol) 650 mg PO Q4H PRN PRN Reason: Temp > 100.4 Hydrocodone Bitart/Acetaminophen (Parachute 5/325) 1 tab PO Q4H PRN PRN Reason: PAIN LESS THAN 5 ON SCALE Last Admin: 01/19/18 08:04 Dose: 1 tab Hydrocodone Bitart/Acetaminophen (Parachute 5/325) 2 tab PO Q6H PRN PRN Reason: PAIN SCALE 5 TO 10 Al Hydroxide/Mg Hydroxide (Milk Of Magnesia Liq) 30 ml PO Q12H PRN PRN Reason: Mild Constipation Amlodipine Besylate (Norvasc) 5 mg PO DAILY [facility] Last Admin: 01/20/18 11:12 Dose: 5 mg Bisacodyl (Dulcolax Supp) 10 mg RECTAL DAILY PRN PRN Reason: SEVERE CONSITIPATION Citalopram Hydrobromide (Celexa) 20 mg PO DAILY [facility] Last Admin: 01/20/18 11:12 Dose: 20 mg Sodium Chloride (Ns Inj) 500 mls @ 30 mls/hr IV.SIG .Q10H [facility] Lactated Ringer's (Lr 1000 Ml Inj) 1,000 mls @ 80 mls/hr IV.CONT .[id number] [facility] Last Infusion: 01/20/18 12:50 Dose: Infused Albumin Human (Flexbumin 25% Inj) 100 mls @ 60 mls/hr IV.SIG Q12H [facility] Last Admin: 01/20/18 12:48 Dose: Not Given Lactulose (Lactulose Liq) 30 ml PO DAILY PRN PRN Reason: SEVERE CONSITIPATION Levofloxacin (Levaquin) 750 mg PO Q48H [facility] Last Admin: 01/20/18 11:11 Dose: 750 mg Levothyroxine Sodium (Synthroid) 100 mcg PO DAILY@0600 [facility] Last Admin: 01/20/18 06:01 Dose: 100 mcg Lorazepam (Ativan Inj) 1 mg IV.PUSH BLOW PIT HELPER PRN PRN Reason: BEFORE PPROCEDURES /IMAGING Last Admin: 01/19/18 10:18 Dose: 1 mg Melatonin (Melatonin) 5 mg PO HS [facility] Last Admin: 01/19/18 21:52 Dose: Not Given Metoprolol Succinate (Toprol Xl) 50 mg PO DAILY [facility] Last Admin: 01/20/18 11:11 Dose: 50 mg Morphine Sulfate (Morphine Inj) 2 mg IV.PUSH Q3H PRN PRN Reason: pain 1-10 when npo Last Admin: 01/17/18 08:35 Dose: 2 mg Ondansetron HCl (Zofran Inj) 4 mg IV.PUSH Q6H PRN PRN Reason: NAUSEA OR VOMITING Pantoprazole Sodium (Protonix) 20 mg PO DAILY [facility] Last Admin: 01/20/18 11:11 Dose: 20 mg Pharmacy Profile Note (Vancomycin Consult Pharmacy) 1 each OTHER UNSCH PRN PRN Reason: Pharmacy to dose Prednisone (Deltasone) 10 mg PO DAILY [facility] Stop: 01/21/18 09:01 Last Admin: 01/20/18 11:12 Dose: 10 mg Senna/Docusate Sodium (Diana-Colace) 1 tab PO BID [facility] Last Admin: 01/20/18 11:12 Dose: 1 tab Sennosides (Senokot) 17.2 mg PO Q12H PRN PRN Reason: Moderate Constipation Sodium Chloride (Ns Flush) 2 ml IV.FLUSH BID [facility] Last Admin: 01/20/18 11:11 Dose: Not Given Sodium Chloride (Ns Flush) 2 ml IV.FLUSH PRN PRN PRN Reason: FLUSH AFTER USING IV ACCESS Tamsulosin HCl (Flomax) 0.4 mg PO DAILY [facility] Last Admin: 01/20/18 11:12 Dose: 0.4 mg Temazepam (Restoril) 7.5 mg PO HS PRN PRN Reason: INSOMNIA Allergies Allergy/AdvReac Type Severity Reaction Status Date / Time amoxicillin Allergy Severe Hives Verified 01/13/18 20:44 Home Medications Medication Instructions Recorded Confirmed Type amlodipine 5 mg PO DAILY 01/13/18 01/13/18 History citalopram 20 mg PO DAILY 01/13/18 01/13/18 History levothyroxine [Synthroid] 100 mcg PO DAILY 01/13/18 01/13/18 History lisinopril 10 mg PO DAILY 01/13/18 01/13/18 History metoprolol succinate 50 mg PO DAILY 01/13/18 01/13/18 History pantoprazole 20 mg PO DAILY 01/13/18 01/13/18 History prednisone 40 mg PO DAILY 01/13/18 01/13/18 History tamsulosin [Flomax] 0.4 mg PO DAILY 01/13/18 01/13/18 History Physical Exam Vital signs: Vital Signs 01/19/18 16:00 01/19/18 20:00 01/20/18 00:00 Temperature 97.6 F 97.3 F L 97.6 F Pulse Rate 81 77 73 Respiratory Rate 17 20 20 Blood Pressure 116/56 L 132/72 128/65 Pulse Oximetry 98 94 L 94 L 01/20/18 04:00 01/20/18 08:00 01/20/18 12:22 Temperature 97.9 F 97.4 F L Pulse Rate 104 H 83 Respiratory Rate 20 18 Blood Pressure 153/55 H 134/87 Pulse Oximetry 100 90 L 99 Intake & Output 01/19/18 01/20/18 01/20/18 18:59 06:59 18:59 Intake Total 1262.5 / 1262.5 800 / 800 Output Total 330 / 330 550 / 550 Balance -330 / -330 712.5 / 712.5 800 / 800 Weight 77 kg Intake: IV 1262.5 / 1262.5 800 / 800 LR 1000 mL Inj 1,000 ML @ 80 1000 / 1000 800 / 800 mls/hr IV.CONT .[id number] [facility] Rx# :[id number] Vancomycin Inj 1,250 MG In NS 262.5 / 262.5 Inj 250 ML @ 250 mls/hr IV.SIG ONCE ONE Rx#:[id number] Output: Urine 550 / 550 Stool 0 / 0 Urine Amount (Catheter) 300 / 300 Condom 300 / 300 Wound Drainage 30 / 30 Left Shoulder 30 / 30 Other: # Voids 1 1 Date of Last Bowel Movement 01/13/18 01/19/18 # Bowel Movements 0 1 Narrative: General: Elderly gentleman in severe respiratory distress Head: Atraumatic, face is flushed Neck: Supple, airway widely patent, no obstruction. Lungs: Diffuse crackles throughout, moderate wheezes, decreased breath sounds right base. Tachypnea at 40+ per minute Heart: Irregular irregular, rate 92-97, marked jugular venous distention Abdomen: Soft, no guarding, no tenderness, bowel sounds are present Extremities: Generalized edema upper and lower extremities, warm, well-perfused Neuro: Moves 4 extremities spontaneously. Distress prohibits testing muscle strength. Opens eyes to voice and focuses and tracks. Nods head to questions. Protects airway well. - Urinary Catheter Management Condom Cath placed during this visit: no Assessment and Plan - Assessment and Plan Plan: Assessment and Plan: Acute combined hypercapnic and hypoxemic respiratory failure Fluid overload/Pulmonary edema -BNP greater than 2000 -Severe respiratory distress requiring BiPAP noninvasive ventilation probably need intubation -Bronchodilators -Aggressive diuresis -Scott required for BPH well diuresis MRSA septicemia, septic right shoulder, L spine diskitis, left supraclavicular abscess Right shoulder effusion. septic right shoulder, s/p I&D Urinary tract infection. 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 Taper steroid Patient has been afebrile . Vital signs are fairly stable Blood cultures positive for MRSA. 2D echocardiogram did not show any findings consistent with vegetations. Patient may need JUSTIN. Continue vancomycin, Levaquin Patient also had a right shoulder effusion, orthopedics aspirated the shoulder which grew approximately 30 cc of purulent fluid. had follow-up with orthopedics for their recommendations drainage of that right shoulder. Continue IV antibiotics per infectious disease recommendations. Infectious disease following repeat blood cultures ntd Cardiothoracic surgeon was consulted for evaluation of supraclavicular mass/ poss abscess NM WBC scan 01/18/18 and 01/19/18. Patient received ativan as not able to tolerate CT imaging he was noted agitated in CT and imaging needed to be repeat. Imaging discussed with radiology Dr and it seems patient with multiple focal infections bilateral shoulders, also back at the hardware with diskitis/ osteomyelitis. Neurology, ID, hem onc ff. CTS consulted no surgical intervention required at this time. IR consulted s/p CT-guided drainage of left posterior supraclavicular/posterior chest wall abscess on 01/17/18. KEKE on CKD. Noted elevated serum creatinine of 1.64. Likely KEKE on CKD. Cont IV fluids, serum creatinine not trending down will consult nephrology Nephrology ff appreciate recs Atrial Fibrillation, permanent Rate well controlled. 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 Will add ensure with meals. Consult travel rn. BPH - Continue Flomax. DVT prophylaxis per surgeon Overall impression: Acute respiratory distress requiring BiPAP noninvasive ventilation. Immediate problem is fluid overload with pulmonary edema. New right lower lung field infiltrate concerning -atelectasis versus consolidation, I favor the latter. The patient is critically ill with unstable respiratory status and may well require intubation. I have talked with the patient's daughter at the bedside. Critical care time 45 minutes aside from procedures.
--- NOTE | 2018-01-20 13:41 | P.PNID ---
Subjective Remarks: sp IR drainage of L neck abscess - 30 cc pt was examined in room 1719 During my visit pt developped resp distress and halicat was called Pt was transferred to ICU, critical care consulted and he is currently on BIPAP No fever New RLL infiltrate on stat CXR BNP 2500 Creatinine improved since yday Antibiotics: vanco levaquin Lines: Line sites with no e.o infection Past Medical History: reviewed Allergies/Adverse Reactions: Allergies amoxicillin Allergy (Severe, Verified 01/13/18 20:44) Hives Objective Vital Signs 01/19/18 16:00 01/19/18 20:00 01/20/18 00:00 Temperature 97.6 F 97.3 F L 97.6 F Pulse Rate 81 77 73 Respiratory Rate 17 20 20 Blood Pressure 116/56 L 132/72 128/65 Pulse Oximetry 98 94 L 94 L 01/20/18 04:00 01/20/18 08:00 01/20/18 12:22 Temperature 97.9 F 97.4 F L Pulse Rate 104 H 83 Respiratory Rate 20 18 Blood Pressure 153/55 H 134/87 Pulse Oximetry 100 90 L 99 Intake & Output 01/19/18 01/20/18 01/20/18 18:59 06:59 18:59 Intake Total 1262.5 / 1262.5 800 / 800 Output Total 330 / 330 550 / 550 Balance -330 / -330 712.5 / 712.5 800 / 800 Weight 77 kg Intake: IV 1262.5 / 1262.5 800 / 800 LR 1000 mL Inj 1,000 ML @ 80 1000 / 1000 800 / 800 mls/hr IV.CONT .[id number] [facility] Rx# :[id number] Vancomycin Inj 1,250 MG In NS 262.5 / 262.5 Inj 250 ML @ 250 mls/hr IV.SIG ONCE ONE Rx#:[id number] Output: Urine 550 / 550 Stool 0 / 0 Urine Amount (Catheter) 300 / 300 Condom 300 / 300 Wound Drainage 30 / 30 Left Shoulder Other: # Voids 1 1 Date of Last Bowel Movement 01/13/18 01/19/18 # Bowel Movements 0 1 01/17/18 13:07 Blood - Peripheral Aerobic Blood Culture - Preliminary No growth in 3 days 01/17/18 13:07 Blood - Peripheral Anaerobic Blood Culture - Final QNS - See aerobic report. 01/17/18 13:01 Blood - Peripheral Aerobic Blood Culture - Preliminary No growth in 3 days 01/17/18 13:01 Blood - Peripheral Anaerobic Blood Culture - Preliminary No growth in 3 days 01/17/18 18:56 Fluid - Other Gram Stain - Final 01/17/18 18:56 Fluid - Other Body Fluid Culture - Final S. aureus MRSA Micrococcus species 01/15/18 18:25 Wound - Shoulder Gram Stain - Final 01/15/18 18:25 Wound - Shoulder Wound Culture - Final S. aureus MRSA Micrococcus species 01/15/18 18:25 Wound - Shoulder Gram Stain - Final 01/15/18 18:25 Wound - Shoulder Wound Culture - Final S. aureus MRSA Micrococcus species 01/14/18 19:08 Fluid - Synovial Fluid Gram Stain - Final 01/14/18 19:08 Fluid - Synovial Fluid Body Fluid Culture - Final S. aureus MRSA Micrococcus species 01/17/18 18:56 Fluid - Other Fungal Smear - Pending 01/17/18 18:56 Fluid - Other Fungal Culture - Pending 01/17/18 18:56 Fluid - Other Acid Fast Bacilli Smear - Pending 01/17/18 18:56 Fluid - Other Mycobacterial Culture - Pending 01/15/18 18:25 Wound - Shoulder Acid Fast Bacilli Smear - Final No acid fast bacilli seen 01/15/18 18:25 Wound - Shoulder Mycobacterial Culture - Pending 01/15/18 18:25 Wound - Shoulder Acid Fast Bacilli Smear - Final No acid fast bacilli seen 01/15/18 18:25 Wound - Shoulder Mycobacterial Culture - Pending 01/15/18 18:25 Wound - Shoulder Fungal Smear - Final No fungal elements seen 01/15/18 18:25 Wound - Shoulder Fungal Culture - Pending 01/14/18 02:34 Blood - Peripheral Aerobic Blood Culture - Final S. aureus MRSA 01/14/18 02:34 Blood - Peripheral Anaerobic Blood Culture - Final S. aureus MRSA 01/14/18 02:30 Blood - Peripheral Aerobic Blood Culture - Final S. aureus MRSA 01/14/18 02:30 Blood - Peripheral Anaerobic Blood Culture - Final S. aureus MRSA Lab - Hematology Results 01/19/18 01/20/18 05:08 06:21 WBC 7.9 9.4 RBC 3.29 L 3.22 L Hgb 8.8 L 8.4 L Hct 28.0 L 27.6 L MCV 85.0 85.8 MCH 26.6 L 26.2 L MCHC 31.3 L 30.5 L RDW 18.9 H 19.4 H Plt Count 170 177 MPV 7.9 7.7 Neut % (Auto) 95.0 H 95.5 H Lymph % (Auto) 3.2 L 3.2 L [place] % (Auto) 1.7 1.0 Eos % (Auto) 0.1 0.1 Baso % (Auto) 0.0 0.2 Neut # (Auto) 7.5 8.9 H Lymph # (Auto) 0.3 L 0.3 L [place] # (Auto) 0.1 0.1 Eos # (Auto) 0.0 0.0 Baso # (Auto) 0.0 0.0 WBC Differential . . Differential Comment Auto diff final Auto diff final Lab - Chemistry Results 01/19/18 01/19/18 01/20/18 05:08 05:08 06:21 Sodium 143 143 Potassium 4.3 4.5 Chloride 108 H 110 H Carbon Dioxide 28.5 27.3 Anion Gap 7 6 BUN 53 H 52 H Creatinine 2.15 H 1.78 H Estimated GFR 30 L 37 L POC Glucose Random Glucose 160 H 136 H Calcium 7.4 L* 7.5 L Prot Corrected Calcium 8.4 L B-Natriuretic Peptide Total Protein 5.3 L Prealbumin 18 L 01/20/18 01/20/18 06:21 11:34 Sodium Potassium Chloride Carbon Dioxide Anion Gap BUN Creatinine Estimated GFR POC Glucose 198 H Random Glucose Calcium Prot Corrected Calcium B-Natriuretic Peptide 2451 H Total Protein Prealbumin Imaging: ITS Impressions Abdomen/Pelvis CT 01/13/18 20:43 CONCLUSION: 1. Marked prostate enlargement. 2. Air-filled distention of sigmoid colon. 3. Cardiomegaly. Small bilateral pleural effusions. 4. Diffuse atherosclerotic disease and arterial calcification. 5. Old insufficiency type fractures of the left side of the sacrum and left- sided pubic rami. Cervical Spine MRI 01/14/18 00:00 CONCLUSION: 1. Examination is degraded by motion artifact. 2. Partial visualization of a mass involving the left supraclavicular region measuring 5.[address] scan of the soft tissues of the neck with IV contrast to further assess if the patient can't hold still for that exam. 3. Diffuse degenerative changes as detailed at each level in the above discussion. Head MRI 01/14/18 00:00 CONCLUSION: 1. No acute intracranial abnormality. 2. Encephalomalacia involving the left frontal lobe. Lumbar Spine MRI 01/14/18 00:00 CONCLUSION: 1. Posterior fusion from L1 to L5. This in combination with motion artifact degrades the study. 2. Central canal appears patent throughout its visualized extent. 3. Old T12 compression deformity. Shoulder MRI 01/14/18 00:00 CONCLUSION: 1. Large full-thickness chronic appearing rotator cuff tear as described. 2. Joint effusion which communicates with large periarticular fluid collections characteristic of periarticular ganglions and bursal fluid collections. Internal debris is identified within the fluid collections. 3. Denervation versus disuse atrophy of the periarticular musculature. 4. Glenohumeral subluxation characteristic of chronic rotator cuff tear. 5. Moderate arthropathy of the glenohumeral joint with remodeling, hyaline cartilage thinning and marginal spurring. 6. Advanced acromioclavicular degenerative disease with periarticular ganglion. 7. Torn biceps tendon. 8. A cortical cyst formation seen in the superolateral humeral head. 9. Periarticular loose bodies within the fluid collections. Sign Thoracic Spine MRI 01/14/18 00:00 CONCLUSION: 1. See the MRI of the cervical spine reported separately. 2. Orthopedic hardware at the thoracolumbar junction. 3. Patent central canal throughout. Head CT 01/14/18 00:31 CONCLUSION: 1. No acute intracranial findings. 2. 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 . Venous Doppler Study 01/14/18 09:20 CONCLUSION: 1. The study is negative for lower extremity deep venous thrombosis. Soft Tissue Neck CT 01/16/18 00:00 CONCLUSION: 1. Partially visualized fluid and gas collection deep to the left trapezius muscle in the posterior lower neck extending into the posterior thorax. Chest CT with contrast could be performed to image the remainder of the abnormality. Differential diagnosis includes abscess and hematoma. 2. Degenerative findings of the cervical spine. Chest CT 01/16/18 11:15 CONCLUSION: 1. Lobulated mass in the left supraclavicular region. It is most suggestive of a multi lobulated loculated abscess given the air within several of the masses. 2. Bibasilar areas of consolidation or atelectasis. There are mild bilateral pleural effusion. 3. There is a drain over the right shoulder region. 4. Postsurgical change at the thoracolumbar region as described above. Abscess Drainage CT 01/17/18 00:00 CONCLUSION: 1. Uncomplicated CT guided drainage, as above. WBC Scan Nuclear Medicine 01/18/18 00:00 CONCLUSION: 1. Multiple areas of abnormal uptake including at the upper lumbar spine around the upper left surgical hardware and at the L1-2 disc level. 2. Abnormal activity around the clip joints bilaterally being more prominent on the right. 3. Abnormal activity in the right C2-3 facet and the left C7-T1 facet. 4. Small area of signal abnormality in the posterior right sacroiliac joint region separate from surgical hardware. 5. All these areas are concerning for active infection. Chest X-Ray 01/20/18 11:30 CONCLUSION: Interval development of dense consolidative change in the right lung base. Physical Exam: GENERAL: pt was in resp distress SKIN: Warm and dry. No rash HEAD: Atraumatic. Normocephalic. EYES: Pupils equal and round. No scleral icterus. No injection or drainage. ENT: No nasal bleeding or discharge. Mucous membranes pink and moist. NECK: Trachea midline. No JVD. No palpable masses, but diffuse pain CARDIOVASCULAR: Regular rate and rhythm. nO murmurs RESPIRATORY: No accessory muscle use. decrease BS on R anteriorly to auscultation. Breath sounds equal bilaterally. GASTROINTESTINAL: Abdomen soft, non-tender, nondistended. Hepatic and splenic margins not palpable. MUSCULOSKELETAL: Extremities without clubbing, cyanosis, or edema. No obvious deformities. + R shoulder post op dressing in place. Left shoulder catheter has serous drainage. NEUROLOGICAL: very lethargic, aropusable moves all 4 extremeties weakly PSYCHIATRIC: unable to assess Assessment and Plan - Plan High grade staph bacteremia. MRSA 2 D echo neg R shoulder effusion , cw R shoulder septic arhtritis (MRSA)-post I&D. . UTI, recurrent recent ly used Bactrim - clx negative probably 2/2 prior abx use Chronic osteo , diskitis, aw hardware h/o L spine fusion and infection 2 yrs ago Encephalopathy - likely 2/2 sepsis (pt has 2 concomitant infections: UTI and septic R shoulder arthritis - improved with treatment L supraclavicular mass turned out to be abscess on CT his CT showed abscess extending to posterior thorax. Status post drainage. MR L spine with ? diskitis multiple rad studies were dw radiologist CT chest with contrast was rec'd, but since he got contrast this am, will do w/ o contrast NM WBC * scan dw Dr Henry Sherman: - L spine abnormal enchanceemnt cw diskitis, chronic osteo no fluid collections New issue: resp failure PNA, RLL - new , cannot exclude aspiration High grade PNC allergy Pt is now critical and unstable fro resp standpoint Recs: continue vancomycin continue levaquin add meropenem renally adjusted for new PNA will add Rifampin at some point when more stable(hardware) Eventually will need to complete 8 weeks of IV abx, followed by indefenite oral abx Whitley Valiente, Hieu levin pt ; daughter @ bs
--- NOTE | 2018-01-20 17:22 | P.PNNS ---
Subjective Interval history: pt was seen this morning during rounds, family members in room. <Paty Cardona - Last Filed: 01/21/18 10:40> Physical Exam Vital signs: Vital Signs 01/19/18 20:00 01/20/18 00:00 01/20/18 04:00 Temperature 97.3 F L 97.6 F 97.9 F Pulse Rate 77 73 104 H Respiratory Rate 20 20 20 Blood Pressure 132/72 128/65 153/55 H Pulse Oximetry 94 L 94 L 100 01/20/18 08:00 01/20/18 12:05 01/20/18 12:08 Temperature 97.4 F L 97.8 F Pulse Rate 83 87 83 Respiratory Rate 18 26 H 27 H Blood Pressure 134/87 154/74 H Pulse Oximetry 90 L 90 L 95 01/20/18 12:15 01/20/18 12:22 01/20/18 12:30 Temperature Pulse Rate 83 85 Respiratory Rate 26 H 30 H Blood Pressure 149/87 H 158/67 H Pulse Oximetry 93 L 99 96 01/20/18 12:45 01/20/18 13:00 01/20/18 13:15 Temperature Pulse Rate 81 77 76 Respiratory Rate 37 H 31 H 25 H Blood Pressure 163/82 H 175/77 H 139/76 Pulse Oximetry 95 93 L 89 L 01/20/18 13:30 01/20/18 13:45 01/20/18 14:00 Temperature Pulse Rate 78 70 75 Respiratory Rate 31 H 24 24 Blood Pressure 153/97 H 141/73 H 163/72 H Pulse Oximetry 89 L 90 L 93 L 01/20/18 14:09 01/20/18 15:00 01/20/18 15:09 Temperature Pulse Rate 75 65 82 Respiratory Rate 22 21 28 H Blood Pressure 166/72 H 150/111 H Pulse Oximetry 91 L 96 94 L 01/20/18 15:28 01/20/18 15:41 01/20/18 16:00 Temperature Pulse Rate 85 85 Respiratory Rate 24 22 Blood Pressure 133/91 H Pulse Oximetry 95 95 96 01/20/18 16:09 01/20/18 16:14 01/20/18 17:00 Temperature 98.9 F Pulse Rate 85 87 87 Respiratory Rate 30 H 29 H 36 H Blood Pressure 187/89 H 177/78 H Pulse Oximetry 94 L 96 97 01/20/18 17:07 Temperature Pulse Rate Respiratory Rate Blood Pressure Pulse Oximetry 92 L Intake & Output 01/19/18 01/20/18 01/20/18 18:59 06:59 18:59 Intake Total 1262.5 / 1262.5 950 / 950 Output Total 330 / 330 550 / 550 2074 Balance -330 / -330 712.5 / 712.5 -1125 / -1125 Weight 77 kg Intake: IV 1262.5 / 1262.5 800 / 800 LR 1000 mL Inj 1,000 ML @ 80 1000 / 1000 800 / 800 mls/hr IV.CONT .[id number] [facility] Rx# :[id number] Vancomycin Inj 1,250 MG In NS 262.5 / 262.5 Inj 250 ML @ 250 mls/hr IV.SIG ONCE ONE Rx#:[id number] Oral 150 / 150 Output: Urine 550 / 550 Stool 0 / 0 Urine Amount (Catheter) 300 / 300 2074 Condom 300 / 300 375 / 375 Indwelling Urethral Catheter 1700 / 1700 Wound Drainage 30 / 30 0 / 0 Left Shoulder 30 / 30 0 / 0 Other: # Voids 1 1 Date of Last Bowel Movement 01/13/18 01/19/18 01/20/18 # Bowel Movements 0 1 0 Narrative: Eyes open, confused, speaking in different language not following commands appears ill - Urinary Catheter Management Condom Cath placed during this visit: no Indwelling Urethral Catheter Cath placed during this visit: no <Paty Cardona - Last Filed: 01/21/18 10:40> Vital signs: Vital Signs 01/21/18 18:30 01/21/18 19:00 01/21/18 19:09 Temperature Pulse Rate 77 61 60 Respiratory Rate 26 H 27 H 28 H Blood Pressure 125/58 L Pulse Oximetry 97 100 100 01/21/18 19:30 01/21/18 20:00 01/21/18 20:09 Temperature 99.6 F 99.6 F Pulse Rate 70 75 77 Respiratory Rate 26 H 27 H 25 H Blood Pressure 153/75 H Pulse Oximetry 100 99 96 01/21/18 20:30 01/21/18 21:00 01/21/18 21:09 Temperature Pulse Rate 84 90 86 Respiratory Rate 21 29 H 30 H Blood Pressure 145/65 H Pulse Oximetry 94 L 97 89 L 01/21/18 21:30 01/21/18 22:00 01/21/18 22:09 Temperature Pulse Rate 77 70 73 Respiratory Rate 25 H 26 H 26 H Blood Pressure 139/82 Pulse Oximetry 88 L 95 01/21/18 23:00 01/21/18 23:09 01/22/18 00:00 Temperature 99.0 F Pulse Rate 82 79 67 Respiratory Rate 25 H 26 H 26 H Blood Pressure 150/72 H Pulse Oximetry 99 92 L 94 L 01/22/18 00:09 01/22/18 01:00 01/22/18 01:09 Temperature Pulse Rate 60 78 70 Respiratory Rate 24 29 H 25 H Blood Pressure 165/89 H 158/78 H Pulse Oximetry 96 97 98 01/22/18 02:00 01/22/18 02:09 01/22/18 03:00 Temperature Pulse Rate 91 H 85 68 Respiratory Rate 26 H 22 Blood Pressure 146/74 H Pulse Oximetry 97 98 99 01/22/18 03:09 01/22/18 03:32 01/22/18 04:00 Temperature Pulse Rate 82 90 Respiratory Rate 25 H 30 H Blood Pressure 168/82 H Pulse Oximetry 98 98 97 01/22/18 04:09 01/22/18 05:00 01/22/18 05:09 Temperature Pulse Rate 87 84 Respiratory Rate 21 30 H Blood Pressure 145/70 H 155/70 H Pulse Oximetry 95 91 L 01/22/18 06:00 01/22/18 06:09 01/22/18 07:00 Temperature Pulse Rate 76 83 84 Respiratory Rate 24 19 23 Blood Pressure 159/72 H Pulse Oximetry 95 94 L 90 L 01/22/18 07:09 01/22/18 07:49 01/22/18 08:00 Temperature 99.5 F Pulse Rate 81 61 Respiratory Rate 46 H 25 H Blood Pressure 172/76 H 159/82 H Pulse Oximetry 91 L 96 99 01/22/18 08:09 01/22/18 09:00 01/22/18 09:09 Temperature Pulse Rate 73 73 61 Respiratory Rate 25 H 26 H 23 Blood Pressure 159/82 H 160/74 H Pulse Oximetry 97 96 94 L 01/22/18 09:45 01/22/18 10:00 01/22/18 11:49 Temperature Pulse Rate 62 62 Respiratory Rate 25 H 23 Blood Pressure 184/85 H Pulse Oximetry 94 L 01/22/18 11:51 01/22/18 11:52 01/22/18 11:53 Temperature Pulse Rate 61 89 Respiratory Rate 16 16 29 H Blood Pressure 170/111 H 194/91 H Pulse Oximetry 96 97 95 01/22/18 11:55 01/22/18 11:57 01/22/18 11:59 Temperature Pulse Rate 65 61 82 Respiratory Rate 16 16 19 Blood Pressure 196/91 H 190/86 H 174/79 H Pulse Oximetry 95 94 L 94 L 01/22/18 12:00 01/22/18 12:01 01/22/18 12:03 Temperature Pulse Rate 63 64 81 Respiratory Rate 16 16 16 Blood Pressure 160/75 H 155/74 H Pulse Oximetry 94 L 93 L 93 L 01/22/18 12:05 01/22/18 12:07 01/22/18 12:09 Temperature Pulse Rate 73 73 73 Respiratory Rate 16 16 16 Blood Pressure 138/67 127/60 120/59 L Pulse Oximetry 94 L 93 L 92 L 01/22/18 12:11 01/22/18 12:13 01/22/18 12:15 Temperature Pulse Rate 79 71 72 Respiratory Rate 16 16 16 Blood Pressure 118/59 L 118/58 L 121/57 L Pulse Oximetry 92 L 92 L 93 L 01/22/18 12:30 01/22/18 12:45 01/22/18 13:00 Temperature Pulse Rate 90 65 58 L Respiratory Rate 16 16 16 Blood Pressure 112/55 L 111/55 L 125/58 L Pulse Oximetry 91 L 95 96 01/22/18 13:15 01/22/18 13:30 01/22/18 13:45 Temperature Pulse Rate 58 L 59 L 55 L Respiratory Rate 16 16 16 Blood Pressure 143/65 H 156/68 H 160/70 H Pulse Oximetry 96 97 97 01/22/18 14:00 01/22/18 14:15 01/22/18 14:30 Temperature Pulse Rate 55 L 56 L 55 L Respiratory Rate 16 16 16 Blood Pressure 142/67 H 141/65 H 139/60 Pulse Oximetry 97 97 97 01/22/18 14:45 01/22/18 15:00 01/22/18 15:15 Temperature Pulse Rate 54 L 50 L 56 L Respiratory Rate 16 16 16 Blood Pressure 156/66 H 152/68 H 159/75 H Pulse Oximetry 97 96 96 01/22/18 15:30 01/22/18 15:31 01/22/18 15:45 Temperature Pulse Rate 53 L 67 57 L Respiratory Rate 16 16 16 Blood Pressure 147/67 H 147/65 H Pulse Oximetry 96 96 96 01/22/18 16:00 01/22/18 16:15 01/22/18 16:30 Temperature 99 F Pulse Rate 58 L 59 L 61 Respiratory Rate 16 16 16 Blood Pressure 140/70 160/70 H 159/67 H Pulse Oximetry 96 97 97 01/22/18 16:39 01/22/18 16:40 01/22/18 16:42 Temperature Pulse Rate 58 L 77 93 H Respiratory Rate 16 19 25 H Blood Pressure 158/77 H 174/79 H 148/69 H Pulse Oximetry 97 96 97 01/22/18 16:44 01/22/18 16:46 01/22/18 16:48 Temperature Pulse Rate 93 H 90 89 Respiratory Rate 12 14 14 Blood Pressure 145/73 H 136/65 115/62 Pulse Oximetry 97 96 96 01/22/18 16:50 01/22/18 16:52 01/22/18 16:54 Temperature Pulse Rate 82 91 H 85 Respiratory Rate 8 L 16 15 Blood Pressure 103/55 L 97/56 L 93/55 L Pulse Oximetry 96 95 95 01/22/18 16:56 01/22/18 16:58 01/22/18 17:00 Temperature Pulse Rate 86 82 85 Respiratory Rate 16 16 16 Blood Pressure 83/51 L 76/49 L Pulse Oximetry 95 95 100 Intake & Output 01/21/18 01/22/18 01/22/18 18:59 06:59 18:59 Intake Total 500 / 500 200 / 200 200 / 200 Output Total 2350 / 2350 2400 / 2400 Balance -1850 / -1850 -2200 / -2200 200 / 200 Weight 69.4 kg Intake: IV 200 / 200 200 / 200 200 / 200 Flexbumin 25% Inj 100 ML @ 60 100 / 100 100 / 100 mls/hr IV.SIG Q12H [facility] Rx#: [id number] Merrem Inj 1,000 MG In NS Inj 100 / 100 100 / 100 100 ML @ 200 mls/hr IV.SIG Q12H [facility] Rx#:[id number] KCl 20 mEq Premix Inj 20 meq In 200 / 200 100 ml @ 50 mls/hr IV.SIG Q2HR [facility] Rx#:[id number] Oral 240 / 240 0 / 0 Oral Supplement 60 / 60 0 / 0 Output: Urine Amount (Catheter) 2350 / 2350 2400 / 2400 Indwelling Urethral Catheter 2350 / 2350 2400 / 2400 Wound Drainage 0 / 0 Left Shoulder 0 / 0 Other: Date of Last Bowel Movement 01/20/18 01/20/18 # Bowel Movements 0 0 Narrative: The patient is alert, awake and oriented to self Cranial nerve examination demonstrates the pupils to be equal, round, and reactive to light. Extra-ocular movements are intact with normal convergence. Facial motornormal and symmetrical.face sensation,hearing, visual acuity, taste, and olfaction can not be assessed due to the patient's neurological condition.Sternocleidomastoid and deltoid musclesasymmetrical. Neck is soft and supple. Muscle testing revealsnormal bulk and tonewith gross movement in both upper and lowerextremities Sensory examination isgrossly preserved Deep tendon reflexes are1+ and symmetrical in upper andlower extremities. Bilateral plantar flexion response. Hoffmanns sign is negative. There is no clonus or other abnormal reflexes noted. Cerebellar examinationcan not be assessed due the patient's neurological condition Lungs: clear Heart: Regular rhythm and rate Skin: warm and dry - Urinary Catheter Management Condom Cath placed during this visit: no Indwelling Urethral Catheter Cath placed during this visit: no <Alan Piña - Last Filed: 01/26/18 10:51> Assessment and Plan - Plan 82 year old male left shoulder abscess s/p I&D by ortho left neck abscess s/p drainage remote history of lumbar fusion - NM WBC scan with multiple areas of abnormal uptake including at the upper lumbar spine around the upper left surgical hardware and at the L1-2 disc level, abnormal activity in the right C2-3 facet and the left C7-T1 facet, All these areas are concerning for active infection. ?source Dr. Ayana Sherman, MRI Lumbar spine w/wo contrast when pt stronger to travel for testing cont abx treatment per ID cont neuro checks Dr. Ayana levin family in room <Paty Cardona - Last Filed: 01/21/18 10:40> - Plan 82 year old male Sepsis left shoulder abscess s/p I&D left neck abscess s/p drainage remote history of lumbar fusion with suspected chronic osteomyelitis Neuro. Continue neuro checks. His nuclear medicine scan shows multiple areas of abnormal uptake including at the upper lumbar spine around the upper left surgical hardware and at the L1-2 disc level, abnormal activity in the right C2- 3 facet and the left C7-T1 facet, All these areas are concerning for active infection. Recommend MRI lumbar spine to rule out epidural abscess once that he is medically stable. he is not stable to undergo an MRI at this point Acute combined hypercapnic and hypoxemic respiratory failure CXR reviewed, ABG reviewed. His findings discussed with Dr Mcghee Fryline Attendant, he is at risk for deterioration He may need to return to ICU -Continue IV lasix monitor closely kidney function. -Scott placed for accurate I&Os and BPH -Avoid steroids if possible as patient with acute infection see below - Continue BiPAP as omid, wean off as tolerated. - Consider pulmonary consult if need MRSA septicemia, septic right shoulder, L spine possible osteomyelitis, left supraclavicular abscess Right shoulder effusion. septic right shoulder, s/p I&D Urinary tract infection. 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 Steroid tapered and DCd He has been afebrile. Vital signs stable Blood cultures positive for MRSA. 2D echocardiogram did not show any findings consistent with vegetations. Patient may need JUSTIN. Continue vancomycin, Levaquin Patient also had a right shoulder effusion, orthopedics aspirated the shoulder which grew approximately 30 cc of purulent fluid. had follow-up with orthopedics for their recommendations drainage of that right shoulder. Continue IV antibiotics per infectious disease recommendations. Infectious disease following him repeat blood cultures Cardiothoracic surgeon was consulted for evaluation of supraclavicular mass/ poss abscess IR consulted s/p CT-guided drainage of left posterior supraclavicular/posterior chest wall abscess on 01/17/18. KEKE on CKD. Noted elevated serum creatinine of 1.64. Likely KEKE on CKD. Cont IV fluids, serum creatinine not trending down will consult nephrology Atrial Fibrillation, permanent Rate well controlled. Recent ECHO EF 65% Dr. Garner following. Insomnia: add small dose of temazepam , add melatonin Protein calorie malnutrition: very low albumin, will check prealbumin. Will add ensure with meals. Consult plasma center technician. BPH - Continue Flomax. Endocrine: Continue to Monitor serial Acu checks and SSI as needed in detail Continue Protonix for stress ulcer prophylaxis Continue Randolph hose and SCD's for DVT prophylaxis. Lovenox Further recommendations will be provided depending on the patient's clinical evaluation and follow up studies. The exam, history, and the medical decision-making described in the above note were completed with the assistance of the mid-level provider. I reviewed and agree with the findings presented. I attest that I had a [id number] encounter with the patient on the same day, and personally performed and documented my assessment and findings in the medical record. <lAan Piña - Last Filed: 01/26/18 10:51>
--- NOTE | 2018-01-20 17:48 | P.PNNP ---
Subjective Interval history: Patient is doing better than yesterday, he was on BiPAP and given Lasix for the low 120 mg increase urine output to 2.1 L, patient WBC scan strongly suggests infection and the back and he is going to have MRI Physical Exam Vital signs: Vital Signs 01/19/18 20:00 01/20/18 00:00 01/20/18 04:00 Temperature 97.3 F L 97.6 F 97.9 F Pulse Rate 77 73 104 H Respiratory Rate 20 20 20 Blood Pressure 132/72 128/65 153/55 H Pulse Oximetry 94 L 94 L 100 01/20/18 08:00 01/20/18 12:05 01/20/18 12:08 Temperature 97.4 F L 97.8 F Pulse Rate 83 87 83 Respiratory Rate 18 26 H 27 H Blood Pressure 134/87 154/74 H Pulse Oximetry 90 L 90 L 95 01/20/18 12:15 01/20/18 12:22 01/20/18 12:30 Temperature Pulse Rate 83 85 Respiratory Rate 26 H 30 H Blood Pressure 149/87 H 158/67 H Pulse Oximetry 93 L 99 96 01/20/18 12:45 01/20/18 13:00 01/20/18 13:15 Temperature Pulse Rate 81 77 76 Respiratory Rate 37 H 31 H 25 H Blood Pressure 163/82 H 175/77 H 139/76 Pulse Oximetry 95 93 L 89 L 01/20/18 13:30 01/20/18 13:45 01/20/18 14:00 Temperature Pulse Rate 78 70 75 Respiratory Rate 31 H 24 24 Blood Pressure 153/97 H 141/73 H 163/72 H Pulse Oximetry 89 L 90 L 93 L 01/20/18 14:09 01/20/18 15:00 01/20/18 15:09 Temperature Pulse Rate 75 65 82 Respiratory Rate 22 21 28 H Blood Pressure 166/72 H 150/111 H Pulse Oximetry 91 L 96 94 L 01/20/18 15:28 01/20/18 15:41 01/20/18 16:00 Temperature Pulse Rate 85 85 Respiratory Rate 24 22 Blood Pressure 133/91 H Pulse Oximetry 95 95 96 01/20/18 16:09 01/20/18 16:14 01/20/18 17:00 Temperature 98.9 F Pulse Rate 85 87 87 Respiratory Rate 30 H 29 H 36 H Blood Pressure 187/89 H 177/78 H Pulse Oximetry 94 L 96 97 01/20/18 17:07 Temperature Pulse Rate Respiratory Rate Blood Pressure Pulse Oximetry 92 L Intake & Output 01/19/18 01/20/18 01/20/18 18:59 06:59 18:59 Intake Total 1262.5 / 1262.5 1050 / 1050 Output Total 330 / 330 550 / 550 2074 / 2074 Balance -330 / -330 712.5 / 712.5 -1025 / -1025 Weight 77 kg Intake: IV 1262.5 / 1262.5 900 / 900 LR 1000 mL Inj 1,000 ML @ 80 1000 / 1000 800 / 800 mls/hr IV.CONT .[id number] [facility] Rx# :[id number] Merrem Inj 1,000 MG In NS Inj 100 / 100 100 ML @ 200 mls/hr IV.SIG Q12H [facility] Rx#:[id number] Vancomycin Inj 1,250 MG In NS 262.5 / 262.5 Inj 250 ML @ 250 mls/hr IV.SIG ONCE ONE Rx#:[id number] Oral 150 / 150 Output: Urine 550 / 550 Stool 0 / 0 Urine Amount (Catheter) 300 / 300 2074 Condom 300 / 300 375 / 375 Indwelling Urethral Catheter 1700 / 1700 Wound Drainage 30 / 30 0 / 0 Left Shoulder 30 / 30 0 / 0 Other: # Voids 1 1 Date of Last Bowel Movement 01/13/18 01/19/18 01/20/18 # Bowel Movements 0 1 0 Narrative: Eyes open, confused, speaking in different language not following commands appears ill Chest: Diminished air entry at the bases CVS: S1-S2 regular Abdomen: Soft nontender Extremities upper extremity edema - Urinary Catheter Management Condom Cath placed during this visit: no Indwelling Urethral Catheter Cath placed during this visit: yes Reason for continuing: Hourly intake/output Insertion date: 01/20/18 Insertion time: 11:30 Assessment and Plan - Assessment (1) Acute renal failure Code(s): N17.9 - Acute kidney failure, unspecified Status: Acute (2) Atrial fibrillation Code(s): I48.91 - Unspecified atrial fibrillation Status: Acute Qualifiers: Atrial fibrillation type: unspecified Qualified Code(s): I48.91 - Unspecified atrial fibrillation (3) Sepsis Code(s): A41.9 - Sepsis, unspecified organism Status: Acute Qualifiers: Sepsis type: methicillin resistant Staphylococcus aureus Qualified Code(s) : A41.02 - Sepsis due to Methicillin resistant Staphylococcus aureus - Plan Patient is a 82-year-old male with history of renal insufficiency which is getting worse now most likely due to underlying sepsis MRSA, he is getting vancomycin as well, follow levels last level was 12.9, he also received contrast study on 01/14/2018 CT of the abdomen and pelvis, Patient is getting albumin however his creatinine is 1.78 Lasix given an increase urine output to 2.1 L also getting albumin Creatinine declined MRI ordered of lumbar spine
[2018-01-20] MEDS: Melatonin 5 MG Tablet PO SCH (21:11)
[2018-01-21] MEDS ORDERED: Micafungin Inj 150 MG in Sodium Chlor 0.9% Inj 100 ML IV.SIG SCH ×2
--- NOTE | 2018-01-21 03:43 | XR ---
EXAM DATE: 01/21/2018 3:23 AM EST AGE/SEX: 82 years / Male INDICATIONS: Hypoxemia. CLINICAL DATA: This is the patient's subsequent encounter. Patient reports that signs and symptoms h ave been present for 1 week and indicates a pain score of Nonresponsive. MEDICAL/SURGICAL HISTORY: Hypertension. Gastroesophageal reflux disease. A-fib. None. COMPARISON: C, CHEST 1V SINGLE AP, 01/20/2018. . FINDINGS: Heart size enlarged. Bilateral mostly basilar airspace disease and pleural effusions similar to . Surgical drain ends in the left supraclavicular region, stable. CONCLUSION: Bilateral mostly basilar airspace disease and pleural effusions similar to January 20. Electronically signed by: Alberto Richardson MD 01/21/2018 3:42 AM EST
[2018-01-21] MEDS: Albumin Human 25% Inj 100 ML IV.SIG SCH ×2 (05:24→17:29)
[2018-01-21] MEDS: Levothyroxine 100 MCG Tablet PO SCH (05:24)
[2018-01-21 06:39] LABS: Baso % (Auto) 0.1 % (0.0-2.0); Eos % (Auto) 0.1 % (0.0-4.0); Hematocrit 27.4 % (39.0-51.0); Hemoglobin 8.6 gm/dL (13.0-17.0); Lymph # (Auto) 0.3 th/mm3 (1.0-4.8); Lymph % (Auto) 3.2 % (9.0-44.0); Mean Corpuscular HGB Conc 31.5 % (32.0-36.0); Mean Corpuscular Hemoglobin 26.1 pg (27.0-34.0); Mean Corpuscular Volume 82.8 fL (80.0-100.0); Mean Platelet Volume 8.1 fL (7.0-11.0); Mono # (Auto) 0.1 th/mm3 (0.0-0.9); Neut # (Auto) 10.3 th/mm3 (1.8-7.7); Neut % (Auto) 95.6 % (16.0-70.0); Platelet Count 192 th/mm3 (150-450); Red Blood Count 3.31 mil/mm3 (4.50-5.90); White Blood Count 10.7 th/mm3 (4.0-11.0)
[2018-01-21 06:50] LABS: Calcium 8.3 mg/dL (8.5-10.1); Carbon Dioxide 31.4 meq/L (21.0-32.0); Magnesium 1.7 mg/dL (1.5-2.5); Potassium 3.4 meq/L (3.5-5.1)
[2018-01-21 06:51] LABS: Phosphorus 2.4 mg/dL (2.5-4.9)
[2018-01-21 06:52] LABS: Vancomycin,Random 33.1 Comment
[2018-01-21] MEDS: Citalopram 20 MG Tablet PO SCH (09:11)
[2018-01-21] MEDS: predniSONE 10 MG Tablet PO SCH (09:11)
[2018-01-21] MEDS: amLODIPine 5 MG Tablet PO SCH (09:11)
[2018-01-21] MEDS: Senna/Docusate Sodium 8.6/50 MG Tablet PO SCH ×2 (09:13→20:44)
[2018-01-21] MEDS: Pantoprazole Sodium 20 MG DR Tablet PO SCH (10:26)
[2018-01-21] MEDS ORDERED: Potassium Phosphate Inj 30 MMOL in Sodium Chlor 0.9% Inj 250 ML IV.SIG ONE (11:00)
[2018-01-21] MEDS ORDERED: RESP: Racemic Epinephrine 2.25% 0.5 ML Neb ONE (11:25)
--- NOTE | 2018-01-21 12:22 | P.PNNP ---
Subjective Interval history: On BiPAP getting Lasix urine output improved potassium is being replaced Physical Exam Vital signs: Vital Signs 01/20/18 12:22 01/20/18 12:30 01/20/18 12:45 Temperature Pulse Rate 85 81 Respiratory Rate 30 H 37 H Blood Pressure 158/67 H 163/82 H Pulse Oximetry 99 96 95 01/20/18 13:00 01/20/18 13:15 01/20/18 13:30 Temperature Pulse Rate 77 76 78 Respiratory Rate 31 H 25 H 31 H Blood Pressure 175/77 H 139/76 153/97 H Pulse Oximetry 93 L 89 L 89 L 01/20/18 13:45 01/20/18 14:00 01/20/18 14:09 Temperature Pulse Rate 70 75 75 Respiratory Rate 24 24 22 Blood Pressure 141/73 H 163/72 H 166/72 H Pulse Oximetry 90 L 93 L 91 L 01/20/18 15:00 01/20/18 15:09 01/20/18 15:28 Temperature Pulse Rate 65 82 85 Respiratory Rate 21 28 H 24 Blood Pressure 150/111 H 133/91 H Pulse Oximetry 96 94 L 95 01/20/18 15:41 01/20/18 16:00 01/20/18 16:09 Temperature 98.9 F Pulse Rate 85 85 Respiratory Rate 22 30 H Blood Pressure 187/89 H Pulse Oximetry 95 96 94 L 01/20/18 16:14 01/20/18 17:00 01/20/18 17:07 Temperature Pulse Rate 87 87 Respiratory Rate 29 H 36 H Blood Pressure 177/78 H Pulse Oximetry 96 97 92 L 01/20/18 18:00 01/20/18 18:13 01/20/18 19:00 Temperature Pulse Rate 86 97 H 85 Respiratory Rate 34 H 38 H 25 H Blood Pressure 154/84 H Pulse Oximetry 93 L 93 L 92 L 01/20/18 19:09 01/20/18 19:14 01/20/18 20:00 Temperature 99.1 F Pulse Rate 88 86 95 H Respiratory Rate 25 H 24 25 H Blood Pressure 182/108 H 157/86 H Pulse Oximetry 94 L 94 L 91 L 01/20/18 20:09 01/20/18 20:18 01/20/18 21:00 Temperature Pulse Rate 93 H 75 Respiratory Rate 26 H 26 H Blood Pressure 166/82 H Pulse Oximetry 91 L 94 L 100 01/20/18 21:09 01/20/18 22:00 01/20/18 22:12 Temperature Pulse Rate 72 81 86 Respiratory Rate 27 H 29 H 30 H Blood Pressure 132/62 157/79 H Pulse Oximetry 100 93 L 90 L 01/20/18 22:21 01/20/18 23:00 01/20/18 23:09 Temperature Pulse Rate 72 76 Respiratory Rate 25 H 32 H Blood Pressure 159/81 H 169/84 H Pulse Oximetry 92 L 93 L 91 L 01/21/18 00:00 01/21/18 00:09 01/21/18 01:00 Temperature 99.1 F Pulse Rate 79 67 75 Respiratory Rate 25 H 22 27 H Blood Pressure 153/79 H Pulse Oximetry 91 L 98 93 L 01/21/18 01:09 01/21/18 02:00 01/21/18 02:09 Temperature Pulse Rate 81 90 89 Respiratory Rate 39 H 34 H 35 H Blood Pressure 169/79 H 194/93 H Pulse Oximetry 91 L 91 L 91 L 01/21/18 02:11 01/21/18 03:00 01/21/18 03:09 Temperature Pulse Rate 91 H 92 H 95 H Respiratory Rate 35 H 39 H 37 H Blood Pressure 168/82 H 177/90 H Pulse Oximetry 91 L 92 L 92 L 01/21/18 03:54 01/21/18 04:00 01/21/18 04:09 Temperature 99.5 F Pulse Rate 90 85 Respiratory Rate 38 H 23 Blood Pressure 171/77 H Pulse Oximetry 92 L 90 L 97 01/21/18 05:00 01/21/18 05:09 01/21/18 05:27 Temperature Pulse Rate 87 95 H Respiratory Rate 23 27 H Blood Pressure 199/81 H Pulse Oximetry 95 93 L 88 L 01/21/18 05:32 01/21/18 05:34 01/21/18 05:47 Temperature Pulse Rate 90 93 H 84 Respiratory Rate 34 H 38 H 28 H Blood Pressure 192/91 H 182/101 H 156/81 H Pulse Oximetry 94 L 96 100 01/21/18 06:00 01/21/18 06:09 01/21/18 07:00 Temperature Pulse Rate 82 79 88 Respiratory Rate 27 H 27 H 28 H Blood Pressure 141/69 H Pulse Oximetry 100 100 96 01/21/18 07:09 01/21/18 07:30 01/21/18 08:00 Temperature 99.5 F Pulse Rate 84 78 Respiratory Rate 27 H 28 H Blood Pressure 161/74 H 161/74 H Pulse Oximetry 100 98 100 01/21/18 08:09 01/21/18 09:00 01/21/18 09:09 Temperature Pulse Rate 80 80 77 Respiratory Rate 27 H 31 H 27 H Blood Pressure 146/69 H 157/84 H Pulse Oximetry 100 100 95 01/21/18 10:00 01/21/18 10:09 01/21/18 11:00 Temperature Pulse Rate 95 H 97 H 97 H Respiratory Rate 26 H 41 H 37 H Blood Pressure 147/70 H Pulse Oximetry 90 L 80 L 86 L 01/21/18 11:35 01/21/18 11:55 Temperature Pulse Rate 93 H Respiratory Rate 34 H Blood Pressure Pulse Oximetry 90 L Intake & Output 01/20/18 01/21/18 01/21/18 18:59 06:59 18:59 Intake Total 1150 / 1150 300 / 300 Output Total 2074 3075 / 3075 Balance -925 / -925 -2775 / -2775 Weight 69.2 kg Intake: IV 1000 / 1000 300 / 300 LR 1000 mL Inj 1,000 ML @ 80 800 / 800 mls/hr IV.CONT .[id number] [facility] Rx# :[id number] Flexbumin 25% Inj 100 ML @ 60 100 / 100 100 / 100 mls/hr IV.SIG Q12H [facility] Rx#: [id number] Merrem Inj 1,000 MG In NS Inj 100 / 100 100 / 100 100 ML @ 200 mls/hr IV.SIG Q12H [facility] Rx#:[id number] Mycamine Inj 150 MG In NS Inj 100 / 100 100 ML @ 100 mls/hr IV.SIG Q24H [facility] Rx#:[id number] Oral 150 / 150 Output: Urine Amount (Catheter) 2074 3075 / 3075 Condom 375 / 375 Indwelling Urethral Catheter 0 / 1700 3075 / 3075 Wound Drainage 0 / 0 Left Shoulder 0 / 0 Other: Date of Last Bowel Movement 01/20/18 01/20/18 01/20/18 # Bowel Movements 0 Narrative: Eyes open, confused, speaking in different language not following commands appears ill Chest and lung diminished air entry with few rales CVS S1-S2 tachycardia Abdomen is soft Upper extremity edema - Urinary Catheter Management Condom Cath placed during this visit: no Indwelling Urethral Catheter Cath placed during this visit: yes Reason for continuing: Hourly intake/output Insertion date: 01/20/18 Insertion time: 11:30 Assessment and Plan - Assessment (1) Acute renal failure Code(s): N17.9 - Acute kidney failure, unspecified Status: Acute (2) Atrial fibrillation Code(s): I48.91 - Unspecified atrial fibrillation Status: Acute Qualifiers: Atrial fibrillation type: unspecified Qualified Code(s): I48.91 - Unspecified atrial fibrillation (3) Sepsis Code(s): A41.9 - Sepsis, unspecified organism Status: Acute Qualifiers: Sepsis type: methicillin resistant Staphylococcus aureus Qualified Code(s) : A41.02 - Sepsis due to Methicillin resistant Staphylococcus aureus - Plan Patient is a 82-year-old male with history of renal insufficiency which is getting worse now most likely due to underlying sepsis MRSA, he is getting vancomycin as well, creatinine is 1.8 on Lasix 40 mg twice daily urine output 5 L Patient remains in respiratory distress on BiPAP may need intubation Maintains urine output on Lasix MRI ordered of lumbar spine once stronger
--- NOTE | 2018-01-21 14:14 | P.PN ---
Subjective Interval history: Patient is noted with sob after he ate in the morning. He was off bipap and was satting well on NC was able to eat. He was noted dessating after eating ans was placed back on Bipap. Also Lasix IV was administered with very good diuresis, sattign well and more awake. Patient denies having chest pain. He feels tired . He is following commands. No fever or chills No pain in his joints. LE edema improved a little. No cough. Physical Exam Vital signs: Vital Signs 01/20/18 15:00 01/20/18 15:09 01/20/18 15:28 Temperature Pulse Rate 65 82 85 Respiratory Rate 21 28 H 24 Blood Pressure 150/111 H 133/91 H Pulse Oximetry 96 94 L 95 01/20/18 15:41 01/20/18 16:00 01/20/18 16:09 Temperature 98.9 F Pulse Rate 85 85 Respiratory Rate 22 30 H Blood Pressure 187/89 H Pulse Oximetry 95 96 94 L 01/20/18 16:14 01/20/18 17:00 01/20/18 17:07 Temperature Pulse Rate 87 87 Respiratory Rate 29 H 36 H Blood Pressure 177/78 H Pulse Oximetry 96 97 92 L 01/20/18 18:00 01/20/18 18:13 01/20/18 19:00 Temperature Pulse Rate 86 97 H 85 Respiratory Rate 34 H 38 H 25 H Blood Pressure 154/84 H Pulse Oximetry 93 L 93 L 92 L 01/20/18 19:09 01/20/18 19:14 01/20/18 20:00 Temperature 99.1 F Pulse Rate 88 86 95 H Respiratory Rate 25 H 24 25 H Blood Pressure 182/108 H 157/86 H Pulse Oximetry 94 L 94 L 91 L 01/20/18 20:09 01/20/18 20:18 01/20/18 21:00 Temperature Pulse Rate 93 H 75 Respiratory Rate 26 H 26 H Blood Pressure 166/82 H Pulse Oximetry 91 L 94 L 100 01/20/18 21:09 01/20/18 22:00 01/20/18 22:12 Temperature Pulse Rate 72 81 86 Respiratory Rate 27 H 29 H 30 H Blood Pressure 132/62 157/79 H Pulse Oximetry 100 93 L 90 L 01/20/18 22:21 01/20/18 23:00 01/20/18 23:09 Temperature Pulse Rate 72 76 Respiratory Rate 25 H 32 H Blood Pressure 159/81 H 169/84 H Pulse Oximetry 92 L 93 L 91 L 01/21/18 00:00 01/21/18 00:09 01/21/18 01:00 Temperature 99.1 F Pulse Rate 79 67 75 Respiratory Rate 25 H 22 27 H Blood Pressure 153/79 H Pulse Oximetry 91 L 98 93 L 01/21/18 01:09 01/21/18 02:00 01/21/18 02:09 Temperature Pulse Rate 81 90 89 Respiratory Rate 39 H 34 H 35 H Blood Pressure 169/79 H 194/93 H Pulse Oximetry 91 L 91 L 91 L 01/21/18 02:11 01/21/18 03:00 01/21/18 03:09 Temperature Pulse Rate 91 H 92 H 95 H Respiratory Rate 35 H 39 H 37 H Blood Pressure 168/82 H 177/90 H Pulse Oximetry 91 L 92 L 92 L 01/21/18 03:54 01/21/18 04:00 01/21/18 04:09 Temperature 99.5 F Pulse Rate 90 85 Respiratory Rate 38 H 23 Blood Pressure 171/77 H Pulse Oximetry 92 L 90 L 97 01/21/18 05:00 01/21/18 05:09 01/21/18 05:27 Temperature Pulse Rate 87 95 H Respiratory Rate 23 27 H Blood Pressure 199/81 H Pulse Oximetry 95 93 L 88 L 01/21/18 05:32 01/21/18 05:34 01/21/18 05:47 Temperature Pulse Rate 90 93 H 84 Respiratory Rate 34 H 38 H 28 H Blood Pressure 192/91 H 182/101 H 156/81 H Pulse Oximetry 94 L 96 100 01/21/18 06:00 01/21/18 06:09 01/21/18 07:00 Temperature Pulse Rate 82 79 88 Respiratory Rate 27 H 27 H 28 H Blood Pressure 141/69 H Pulse Oximetry 100 100 96 01/21/18 07:09 01/21/18 07:30 01/21/18 08:00 Temperature 99.5 F Pulse Rate 84 78 Respiratory Rate 27 H 28 H Blood Pressure 161/74 H 161/74 H Pulse Oximetry 100 98 100 01/21/18 08:09 01/21/18 09:00 01/21/18 09:09 Temperature Pulse Rate 80 80 77 Respiratory Rate 27 H 31 H 27 H Blood Pressure 146/69 H 157/84 H Pulse Oximetry 100 100 95 01/21/18 10:00 01/21/18 10:09 01/21/18 11:00 Temperature Pulse Rate 95 H 97 H 97 H Respiratory Rate 26 H 41 H 37 H Blood Pressure 147/70 H Pulse Oximetry 90 L 80 L 86 L 01/21/18 11:09 01/21/18 11:35 01/21/18 11:55 Temperature Pulse Rate 93 H 93 H Respiratory Rate 33 H 34 H Blood Pressure 151/81 H Pulse Oximetry 87 L 90 L 01/21/18 12:00 01/21/18 12:09 01/21/18 13:00 Temperature 99.6 F Pulse Rate 100 H 98 H 80 Respiratory Rate 32 H 28 H 25 H Blood Pressure 157/76 H 157/76 H Pulse Oximetry 90 L 91 L 94 L Intake & Output 01/20/18 01/21/18 01/21/18 18:59 06:59 18:59 Intake Total 1150 / 1150 300 / 300 Output Total 2074 3075 / 3075 Balance -925 / -925 -2775 / -2775 Weight 69.2 kg Intake: IV 1000 / 1000 300 / 300 LR 1000 mL Inj 1,000 ML @ 80 800 / 800 mls/hr IV.CONT .[id number] [facility] Rx# :[id number] Flexbumin 25% Inj 100 ML @ 60 100 / 100 100 / 100 mls/hr IV.SIG Q12H [facility] Rx#: [id number] Merrem Inj 1,000 MG In NS Inj 100 / 100 100 / 100 100 ML @ 200 mls/hr IV.SIG Q12H [facility] Rx#:[id number] Mycamine Inj 150 MG In NS Inj 100 / 100 100 ML @ 100 mls/hr IV.SIG Q24H [facility] Rx#:[id number] Oral 150 / 150 Output: Urine Amount (Catheter) 2074 3075 / 3075 Condom 375 / 375 Indwelling Urethral Catheter 0 / 1700 3075 / 3075 Wound Drainage 0 / 0 Left Shoulder 0 / 0 Other: Date of Last Bowel Movement 01/20/18 01/20/18 01/20/18 # Bowel Movements 0 Narrative: General: Very pleasant elderly gentleman appears chronically ill, he satting well on BiPAP. Respiratory: Diffuse crackles throughout, moderate wheezes, decreased breath sounds right base. On BiPAP. Heart: Irregular irregular, rate 92-97, marked jugular venous distention Abdomen: Soft, no guarding, no tenderness, bowel sounds are present Extremities: Generalized edema upper and lower extremities, warm, well-perfused Neuro: Moves 4 extremities spontaneously. Opens eyes to voice and focuses and tracks. Nods head to questions. - Urinary Catheter Management Condom Cath placed during this visit: no Indwelling Urethral Catheter Cath placed during this visit: yes Reason for continuing: Hourly intake/output Insertion date: 01/20/18 Insertion time: 11:30 Results - Labs CBC & Chem 7: 01/21/18 04:59 01/21/18 04:59 Laboratory Results - last 24 hr 01/21/18 01/21/18 01/21/18 04:59 04:59 04:59 WBC 10.7 RBC 3.31 L Hgb 8.6 L Hct 27.4 L MCV 82.8 MCH 26.1 L MCHC 31.5 L RDW 19.0 H Plt Count 192 MPV 8.1 Neut % (Auto) 95.6 H Lymph % (Auto) 3.2 L [place] % (Auto) 1.0 Eos % (Auto) 0.1 Baso % (Auto) 0.1 Neut # (Auto) 10.3 H Lymph # (Auto) 0.3 L [place] # (Auto) 0.1 Eos # (Auto) 0.0 Baso # (Auto) 0.0 WBC Differential . Differential Comment Auto diff final Sodium 142 Potassium 3.4 L D Chloride 104 Carbon Dioxide 31.4 Anion Gap 7 BUN 58 H Creatinine 1.84 H Estimated GFR 36 L Random Glucose 108 H Calcium 8.3 L D Phosphorus 2.4 L Magnesium 1.7 Troponin I B-Natriuretic Peptide 2030 H Random Vancomycin 33.1 01/21/18 08:12 WBC RBC Hgb Hct MCV MCH MCHC RDW Plt Count MPV Neut % (Auto) Lymph % (Auto) [place] % (Auto) Eos % (Auto) Baso % (Auto) Neut # (Auto) Lymph # (Auto) [place] # (Auto) Eos # (Auto) Baso # (Auto) WBC Differential Differential Comment Sodium Potassium Chloride Carbon Dioxide Anion Gap BUN Creatinine Estimated GFR Random Glucose Calcium Phosphorus Magnesium Troponin I 0.02 B-Natriuretic Peptide Random Vancomycin Microbiology 01/17/18 18:56 Fluid - Other Fungal Smear - Final No fungal elements seen 01/17/18 18:56 Fluid - Other Fungal Culture - Preliminary 01/20/18 17:14 Blood - Peripheral Aerobic Blood Culture - Preliminary No growth in 1 day 01/20/18 17:14 Blood - Peripheral Anaerobic Blood Culture - Preliminary No growth in 1 day 01/20/18 17:19 Blood - Peripheral Aerobic Blood Culture - Preliminary No growth in 1 day 01/20/18 17:19 Blood - Peripheral Anaerobic Blood Culture - Preliminary No growth in 1 day 01/17/18 13:07 Blood - Peripheral Aerobic Blood Culture - Preliminary No growth in 4 days 01/17/18 13:07 Blood - Peripheral Anaerobic Blood Culture - Final QNS - See aerobic report. 01/17/18 13:01 Blood - Peripheral Aerobic Blood Culture - Preliminary No growth in 4 days 01/17/18 13:01 Blood - Peripheral Anaerobic Blood Culture - Preliminary No growth in 4 days 01/17/18 18:56 Fluid - Other Acid Fast Bacilli Smear - Final No acid fast bacilli seen - Imaging Impressions Chest X-Ray 01/21/18 06:00 CONCLUSION: Bilateral mostly basilar airspace disease and pleural effusions similar to January 20. - Procedures Right shoulder consent for aspiration obtained. Time out performed. Right shoulder prepped sterilely with alcohol and betadine. Sterile gloves doned. Right shoulder aspirated and sent for gram stain, culture, crystals, and cell count. 30 cc of purulent drainage aspirated and sent to lab. sterile dressing applied. Patient tolerated procedure well. Assessment and Plan - Plan Pleasant 82 old male with hypertension, BPH, gastroesophageal reflux disease. The patient was brought in with acute encephalopathy. Recently he returned from [place] where he was treated for 3 consecutive urinary tract infections over the past 45 days. There is also concern for Guillain [place] because he recently got a flu shot and then had weakness in his extremities after receiving the vaccination. After evaluation the patient was found to have right shoulder swelling and erythema. Patient was having low-grade fevers. Blood cultures came back positive for MRSA, and his right shoulder was also evaluated and then aspirated by the orthopedic surgery team. Acute combined hypercapnic and hypoxemic respiratory failure requiring BiPAP Fluid overload/Pulmonary edema - CXR reviewed, ABG reviewed and findings discussed with Dr Mcghee Launch Operator , patient is placed on BiPAP -BNP elevated 2451s. Patient is diuresed, repeat BNP at 2030. Reconsult his cardiology. Note recent ECHO on 01/17 with EF of 60% -Severe respiratory distress requiring BiPAP noninvasive ventilation probably need intubation -duonebs -Continue IV lasix monitor closely kidney function. -Scott placed for accurate I&Os and BPH -Monitor UOP -Avoid steroids if possible as patient with extensive infection see below - Continue BiPAP as omid, wean off as tolerated. - Cardiology reconsulted - Consider pulm consult if need MRSA septicemia, septic right shoulder, L spine diskitis, left supraclavicular abscess Right shoulder effusion. septic right shoulder, s/p I&D Urinary tract infection. 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 Steroid tapered and DCd Patient has been afebrile . Vital signs are fairly stable Blood cultures positive for MRSA. 2D echocardiogram did not show any findings consistent with vegetations. Patient may need JUSTIN. Continue vancomycin, Levaquin Patient also had a right shoulder effusion, orthopedics aspirated the shoulder which grew approximately 30 cc of purulent fluid. had follow-up with orthopedics for their recommendations drainage of that right shoulder. Continue IV antibiotics per infectious disease recommendations. Infectious disease following repeat blood cultures ntd Cardiothoracic surgeon was consulted for evaluation of supraclavicular mass/ poss abscess NM WBC scan 01/18/18 and 01/19/18. Patient received ativan as not able to tolerate CT imaging he was noted agitated in CT and imaging needed to be repeat. Imaging discussed with radiology and it seems patient with multiple focal infections bilateral shoulders, also back at the hardware with diskitis/ osteomyelitis. Neurology, ID, hem onc ff. CTS consulted no surgical intervention required at this time. IR consulted s/p CT-guided drainage of left posterior supraclavicular/posterior chest wall abscess on 01/17/18. KEKE on CKD. Noted elevated serum creatinine of 1.64. Likely KEKE on CKD. 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 Will add ensure with meals. Consult pharmacist manager. BPH - Continue Flomax. DVT prophylaxis per surgeon Discussed with the patient, family- very supportive at bedside, nurse, Dr Gorman ID specialist, Dr Mcghee serologist.
--- NOTE | 2018-01-21 15:57 | ECG ---
Date Performed: 01/21/2018 Time Performed: 10:29:36 PTAGE: 82 years EKG: ATRIAL FIBRILLATION SEPTAL MYOCARDIAL INFARCTION , PROBABLY OLD ABNORMAL ECG PREVIOUS TRACING : 01/14/2018 19.58 Since the previous tracing, no significant change noted DOCTOR: Dori Dennis Interpretating Date/Time 01/21/2018 15:55:45
--- NOTE | 2018-01-21 17:20 | P.PNID ---
Subjective Remarks: On BIPAP not expectorating creatinine keep rising BNP improved Antibiotics: vanco levaquin meropem Lines: Line sites with no e.o infection Past Medical History: reviewed Allergies/Adverse Reactions: Allergies amoxicillin Allergy (Severe, Verified 01/13/18 20:44) Hives Objective Vital Signs 01/20/18 18:00 01/20/18 18:13 01/20/18 19:00 Temperature Pulse Rate 86 97 H 85 Respiratory Rate 34 H 38 H 25 H Blood Pressure 154/84 H Pulse Oximetry 93 L 93 L 92 L 01/20/18 19:09 01/20/18 19:14 01/20/18 20:00 Temperature 99.1 F Pulse Rate 88 86 95 H Respiratory Rate 25 H 24 25 H Blood Pressure 182/108 H 157/86 H Pulse Oximetry 94 L 94 L 91 L 01/20/18 20:09 01/20/18 20:18 01/20/18 21:00 Temperature Pulse Rate 93 H 75 Respiratory Rate 26 H 26 H Blood Pressure 166/82 H Pulse Oximetry 91 L 94 L 100 01/20/18 21:09 01/20/18 22:00 01/20/18 22:12 Temperature Pulse Rate 72 81 86 Respiratory Rate 27 H 29 H 30 H Blood Pressure 132/62 157/79 H Pulse Oximetry 100 93 L 90 L 01/20/18 22:21 01/20/18 23:00 01/20/18 23:09 Temperature Pulse Rate 72 76 Respiratory Rate 25 H 32 H Blood Pressure 159/81 H 169/84 H Pulse Oximetry 92 L 93 L 91 L 01/21/18 00:00 01/21/18 00:09 01/21/18 01:00 Temperature 99.1 F Pulse Rate 79 67 75 Respiratory Rate 25 H 22 27 H Blood Pressure 153/79 H Pulse Oximetry 91 L 98 93 L 01/21/18 01:09 01/21/18 02:00 01/21/18 02:09 Temperature Pulse Rate 81 90 89 Respiratory Rate 39 H 34 H 35 H Blood Pressure 169/79 H 194/93 H Pulse Oximetry 91 L 91 L 91 L 01/21/18 02:11 01/21/18 03:00 01/21/18 03:09 Temperature Pulse Rate 91 H 92 H 95 H Respiratory Rate 35 H 39 H 37 H Blood Pressure 168/82 H 177/90 H Pulse Oximetry 91 L 92 L 92 L 01/21/18 03:54 01/21/18 04:00 01/21/18 04:09 Temperature 99.5 F Pulse Rate 90 85 Respiratory Rate 38 H 23 Blood Pressure 171/77 H Pulse Oximetry 92 L 90 L 97 01/21/18 05:00 01/21/18 05:09 01/21/18 05:27 Temperature Pulse Rate 87 95 H Respiratory Rate 23 27 H Blood Pressure 199/81 H Pulse Oximetry 95 93 L 88 L 01/21/18 05:32 01/21/18 05:34 01/21/18 05:47 Temperature Pulse Rate 90 93 H 84 Respiratory Rate 34 H 38 H 28 H Blood Pressure 192/91 H 182/101 H 156/81 H Pulse Oximetry 94 L 96 100 01/21/18 06:00 01/21/18 06:09 01/21/18 07:00 Temperature Pulse Rate 82 79 88 Respiratory Rate 27 H 27 H 28 H Blood Pressure 141/69 H Pulse Oximetry 100 100 96 01/21/18 07:09 01/21/18 07:30 01/21/18 08:00 Temperature 99.5 F Pulse Rate 84 78 Respiratory Rate 27 H 28 H Blood Pressure 161/74 H 161/74 H Pulse Oximetry 100 98 100 01/21/18 08:09 01/21/18 09:00 01/21/18 09:09 Temperature Pulse Rate 80 80 77 Respiratory Rate 27 H 31 H 27 H Blood Pressure 146/69 H 157/84 H Pulse Oximetry 100 100 95 01/21/18 10:00 01/21/18 10:09 01/21/18 11:00 Temperature Pulse Rate 95 H 97 H 97 H Respiratory Rate 26 H 41 H 37 H Blood Pressure 147/70 H Pulse Oximetry 90 L 80 L 86 L 01/21/18 11:09 01/21/18 11:35 01/21/18 11:55 Temperature Pulse Rate 93 H 93 H Respiratory Rate 33 H 34 H Blood Pressure 151/81 H Pulse Oximetry 87 L 90 L 01/21/18 12:00 01/21/18 12:09 01/21/18 13:00 Temperature 99.6 F Pulse Rate 100 H 98 H 80 Respiratory Rate 32 H 28 H 25 H Blood Pressure 157/76 H 157/76 H Pulse Oximetry 90 L 91 L 94 L 01/21/18 13:09 01/21/18 14:00 01/21/18 14:09 Temperature Pulse Rate 80 91 H 96 H Respiratory Rate 27 H 31 H 31 H Blood Pressure 140/62 176/74 H Pulse Oximetry 95 90 L 92 L 01/21/18 15:00 01/21/18 15:09 01/21/18 16:00 Temperature 98 F Pulse Rate 77 75 76 Respiratory Rate 24 25 H 23 Blood Pressure 157/70 H 126/77 Pulse Oximetry 94 L 95 97 Intake & Output 01/20/18 01/21/18 01/21/18 18:59 06:59 18:59 Intake Total 1150 / 1150 300 / 300 Output Total 2074 / 2074 3075 / 3075 Balance -925 / -925 -2775 / -2775 Weight 69.2 kg Intake: IV 1000 / 1000 300 / 300 LR 1000 mL Inj 1,000 ML @ 80 800 / 800 mls/hr IV.CONT .[id number] [facility] Rx# :[id number] Flexbumin 25% Inj 100 ML @ 60 100 / 100 100 / 100 mls/hr IV.SIG Q12H [facility] Rx#: [id number] Merrem Inj 1,000 MG In NS Inj 100 / 100 100 / 100 100 ML @ 200 mls/hr IV.SIG Q12H [facility] Rx#:[id number] Mycamine Inj 150 MG In NS Inj 100 / 100 100 ML @ 100 mls/hr IV.SIG Q24H [facility] Rx#:[id number] Oral 150 / 150 Output: Urine Amount (Catheter) 2074 3075 / 3075 Condom 375 / 375 Indwelling Urethral Catheter 1700 / 1700 3075 / 3075 Wound Drainage 0 / 0 Left Shoulder 0 / 0 Other: Date of Last Bowel Movement 01/20/18 01/20/18 01/20/18 # Bowel Movements 0 01/17/18 18:56 Fluid - Other Fungal Smear - Final No fungal elements seen 01/17/18 18:56 Fluid - Other Fungal Culture - Preliminary 01/20/18 17:14 Blood - Peripheral Aerobic Blood Culture - Preliminary No growth in 1 day 01/20/18 17:14 Blood - Peripheral Anaerobic Blood Culture - Preliminary No growth in 1 day 01/20/18 17:19 Blood - Peripheral Aerobic Blood Culture - Preliminary No growth in 1 day 01/20/18 17:19 Blood - Peripheral Anaerobic Blood Culture - Preliminary No growth in 1 day 01/17/18 13:07 Blood - Peripheral Aerobic Blood Culture - Preliminary No growth in 4 days 01/17/18 13:07 Blood - Peripheral Anaerobic Blood Culture - Final QNS - See aerobic report. 01/17/18 13:01 Blood - Peripheral Aerobic Blood Culture - Preliminary No growth in 4 days 01/17/18 13:01 Blood - Peripheral Anaerobic Blood Culture - Preliminary No growth in 4 days 01/17/18 18:56 Fluid - Other Acid Fast Bacilli Smear - Final No acid fast bacilli seen 01/17/18 18:56 Fluid - Other Mycobacterial Culture - Pending 01/17/18 18:56 Fluid - Other Gram Stain - Final 01/17/18 18:56 Fluid - Other Body Fluid Culture - Final S. aureus MRSA Micrococcus species 01/15/18 18:25 Wound - Shoulder Gram Stain - Final 01/15/18 18:25 Wound - Shoulder Wound Culture - Final S. aureus MRSA Micrococcus species 01/15/18 18:25 Wound - Shoulder Gram Stain - Final 01/15/18 18:25 Wound - Shoulder Wound Culture - Final S. aureus MRSA Micrococcus species 01/14/18 19:08 Fluid - Synovial Fluid Gram Stain - Final 01/14/18 19:08 Fluid - Synovial Fluid Body Fluid Culture - Final S. aureus MRSA Micrococcus species Lab - Hematology Results 01/20/18 01/21/18 06:21 04:59 WBC 9.4 10.7 RBC 3.22 L 3.31 L Hgb 8.4 L 8.6 L Hct 27.6 L 27.4 L MCV 85.8 82.8 MCH 26.2 L 26.1 L MCHC 30.5 L 31.5 L RDW 19.4 H 19.0 H Plt Count 177 192 MPV 7.7 8.1 Neut % (Auto) 95.5 H 95.6 H Lymph % (Auto) 3.2 L 3.2 L Morris % (Auto) 1.0 1.0 Eos % (Auto) 0.1 0.1 Baso % (Auto) 0.2 0.1 Neut # (Auto) 8.9 H 10.3 H Lymph # (Auto) 0.3 L 0.3 L Morris # (Auto) 0.1 0.1 Eos # (Auto) 0.0 0.0 Baso # (Auto) 0.0 0.0 WBC Differential . . Differential Comment Auto diff final Auto diff final Lab - Chemistry Results 01/20/18 01/20/18 01/20/18 06:21 06:21 11:34 Sodium 143 Potassium 4.5 Chloride 110 H Carbon Dioxide 27.3 Anion Gap 6 BUN 52 H Creatinine 1.78 H Estimated GFR 37 L POC Glucose 198 H Random Glucose 136 H Calcium 7.5 L Phosphorus Magnesium Troponin I B-Natriuretic Peptide 2451 H 01/21/18 01/21/18 01/21/18 04:59 04:59 08:12 Sodium 142 Potassium 3.4 L D Chloride 104 Carbon Dioxide 31.4 Anion Gap 7 BUN 58 H Creatinine 1.84 H Estimated GFR 36 L POC Glucose Random Glucose 108 H Calcium 8.3 L D Phosphorus 2.4 L Magnesium 1.7 Troponin I 0.02 B-Natriuretic Peptide 2030 H Imaging: ITS Impressions Abdomen/Pelvis CT 01/13/18 20:43 CONCLUSION: 1. Marked prostate enlargement. 2. Air-filled distention of sigmoid colon. 3. Cardiomegaly. Small bilateral pleural effusions. 4. Diffuse atherosclerotic disease and arterial calcification. 5. Old insufficiency type fractures of the left side of the sacrum and left- sided pubic rami. Cervical Spine MRI 01/14/18 00:00 CONCLUSION: 1. Examination is degraded by motion artifact. 2. Partial visualization of a mass involving the left supraclavicular region measuring 5.[address] scan of the soft tissues of the neck with IV contrast to further assess if the patient can't hold still for that exam. 3. Diffuse degenerative changes as detailed at each level in the above discussion. Head MRI 01/14/18 00:00 CONCLUSION: 1. No acute intracranial abnormality. 2. Encephalomalacia involving the left frontal lobe. Lumbar Spine MRI 01/14/18 00:00 CONCLUSION: 1. Posterior fusion from L1 to L5. This in combination with motion artifact degrades the study. 2. Central canal appears patent throughout its visualized extent. 3. Old T12 compression deformity. Shoulder MRI 01/14/18 00:00 CONCLUSION: 1. Large full-thickness chronic appearing rotator cuff tear as described. 2. Joint effusion which communicates with large periarticular fluid collections characteristic of periarticular ganglions and bursal fluid collections. Internal debris is identified within the fluid collections. 3. Denervation versus disuse atrophy of the periarticular musculature. 4. Glenohumeral subluxation characteristic of chronic rotator cuff tear. 5. Moderate arthropathy of the glenohumeral joint with remodeling, hyaline cartilage thinning and marginal spurring. 6. Advanced acromioclavicular degenerative disease with periarticular ganglion. 7. Torn biceps tendon. 8. A cortical cyst formation seen in the superolateral humeral head. 9. Periarticular loose bodies within the fluid collections. Sign Thoracic Spine MRI 01/14/18 00:00 CONCLUSION: 1. See the MRI of the cervical spine reported separately. 2. Orthopedic hardware at the thoracolumbar junction. 3. Patent central canal throughout. Head CT 01/14/18 00:31 CONCLUSION: 1. No acute intracranial findings. 2. 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 . Venous Doppler Study 01/14/18 09:20 CONCLUSION: 1. The study is negative for lower extremity deep venous thrombosis. Soft Tissue Neck CT 01/16/18 00:00 CONCLUSION: 1. Partially visualized fluid and gas collection deep to the left trapezius muscle in the posterior lower neck extending into the posterior thorax. Chest CT with contrast could be performed to image the remainder of the abnormality. Differential diagnosis includes abscess and hematoma. 2. Degenerative findings of the cervical spine. Chest CT 01/16/18 11:15 CONCLUSION: 1. Lobulated mass in the left supraclavicular region. It is most suggestive of a multi lobulated loculated abscess given the air within several of the masses. 2. Bibasilar areas of consolidation or atelectasis. There are mild bilateral pleural effusion. 3. There is a drain over the right shoulder region. 4. Postsurgical change at the thoracolumbar region as described above. Abscess Drainage CT 01/17/18 00:00 CONCLUSION: 1. Uncomplicated CT guided drainage, as above. WBC Scan Nuclear Medicine 01/18/18 00:00 CONCLUSION: 1. Multiple areas of abnormal uptake including at the upper lumbar spine around the upper left surgical hardware and at the L1-2 disc level. 2. Abnormal activity around the clip joints bilaterally being more prominent on the right. 3. Abnormal activity in the right C2-3 facet and the left C7-T1 facet. 4. Small area of signal abnormality in the posterior right sacroiliac joint region separate from surgical hardware. 5. All these areas are concerning for active infection. Chest X-Ray 01/21/18 06:00 CONCLUSION: Bilateral mostly basilar airspace disease and pleural effusions similar to January 20. Physical Exam: GENERAL: pt on part face BIPAP mask SKIN: Warm and dry. No rash HEAD: Atraumatic. Normocephalic. EYES: Pupils equal and round. No scleral icterus. No injection or drainage. ENT: No nasal bleeding or discharge. Mucous membranes pink and moist. NECK: Trachea midline. No JVD. No palpable masses, but diffuse pain CARDIOVASCULAR: Regular rate and rhythm. nO murmurs RESPIRATORY: No accessory muscle use. decrease BS on R anteriorly to auscultation. Breath sounds equal bilaterally. GASTROINTESTINAL: Abdomen soft, non-tender, mildly distended. Hepatic and splenic margins not palpable. MUSCULOSKELETAL: Extremities without clubbing, cyanosis, or edema. No obvious deformities. + R shoulder post op dressing in place, Incision intact, but effusion is present . Left shoulder catheter has serous drainage. NEUROLOGICAL: very lethargic, barely arousable moves all 4 extremeties weakly PSYCHIATRIC: unable to assess Assessment and Plan - Plan High grade staph bacteremia. MRSA 2 D echo neg R shoulder effusion , cw R shoulder septic arhtritis (MRSA)-post I&D. . UTI, recurrent recent ly used Bactrim - clx negative probably 2/2 prior abx use Chronic osteo , diskitis, aw hardware h/o L spine fusion and infection 2 yrs ago Encephalopathy - likely 2/2 sepsis (pt has 2 concomitant infections: UTI and septic R shoulder arthritis - improved with treatment L supraclavicular mass turned out to be abscess on CT his CT showed abscess extending to posterior thorax. Status post drainage. MR L spine with ? diskitis multiple rad studies were dw radiologist CT chest with contrast was rec'd, but since he got contrast this am, will do w/ o contrast NM WBC * scan dw Dr Henry Sherman: - L spine abnormal enchanceemnt cw diskitis, chronic osteo no fluid collections New issue: resp failure, on NIVM PNA, RLL - new , cannot exclude aspiration High grade PNC allergy, but tolerated meropenem OK Pt is now critical and unstable fro resp standpoint looks likel reaccumulated R shoulder effusion Recs: continue vancomycin continue levaquin cont meropenem renally adjusted for new PNA will add Rifampin at some point when more stable(hardware) Eventually will need to complete 8 weeks of IV abx, followed by indefenite oral abx R eliel levin ortho poonam pt ; daughter @ bs
--- NOTE | 2018-01-21 18:31 | XR ---
EXAM DATE: 01/21/2018 6:23 PM EST AGE/SEX: 82 years / Male INDICATIONS: Right shoulder pain, no known injury. CLINICAL DATA: This is the patient's initial encounter. Patient reports that signs and symptoms have been present for 1 day and indicates a pain score of Nonresponsive. MEDICAL/SURGICAL HISTORY: Non-responsive. Non-responsive. COMPARISON: No prior exams available for comparison. FINDINGS: Bony structures are intact and in normal alignment. Joints are intact without dislocation or signifi cant arthropathy. Osseous density is normal. Soft tissues are unremarkable. No radiopaque foreign bodies seen. CONCLUSION: Unusual positioning of the shoulder but I do not see any obvious displaced fracture of the shoulder. There is a healing third rib fracture and healing seventh rib fracture. Electronically signed by: Denver Levy MD 01/21/2018 6:29 PM EST
[2018-01-21 20:29] LABS: ABG Base Excess 11.4 mmol/L (-2-2); ABG PCO2 49 mmHg (38-42); ABG PO2 56 mmHg (61-120)
[2018-01-21] MEDS: Potassium Chloride 25 MEQ Effervescent Tablet PO SCH (20:42)
[2018-01-21] MEDS: Melatonin 5 MG Tablet PO SCH (20:44)
--- NOTE | 2018-01-21 20:59 | P.PNNS ---
Subjective Interval history: 01/22. was transferred emergently from the floor to the surgical intensive care unit because of rapid onset combined hypoxemic and hypercapnic respiratory failure. He returned to [facility] for worsening resp status. On BIPAP with fulkl face mask. CXR with bilat infiltrates/ pulm edema. Reaccumulated rt shoulder collection. After d/w family proceeded with intubation and placed patient on [facility] ventilation. Placed central line. D/W Dr. Mani Sherman who is arranging US guided drainage/ drain placement for shoulder collection. Physical Exam Vital signs: Vital Signs 01/20/18 21:00 01/20/18 21:09 01/20/18 22:00 Temperature Pulse Rate 75 72 81 Respiratory Rate 26 H 27 H 29 H Blood Pressure 132/62 Pulse Oximetry 100 100 93 L 01/20/18 22:12 01/20/18 22:21 01/20/18 23:00 Temperature Pulse Rate 86 72 Respiratory Rate 30 H 25 H Blood Pressure 157/79 H 159/81 H Pulse Oximetry 90 L 92 L 93 L 01/20/18 23:09 01/21/18 00:00 01/21/18 00:09 Temperature 99.1 F Pulse Rate 76 79 67 Respiratory Rate 32 H 25 H 22 Blood Pressure 169/84 H 153/79 H Pulse Oximetry 91 L 91 L 98 01/21/18 01:00 01/21/18 01:09 01/21/18 02:00 Temperature Pulse Rate 75 81 90 Respiratory Rate 27 H 39 H 34 H Blood Pressure 169/79 H Pulse Oximetry 93 L 91 L 91 L 01/21/18 02:09 01/21/18 02:11 01/21/18 03:00 Temperature Pulse Rate 89 91 H 92 H Respiratory Rate 35 H 35 H 39 H Blood Pressure 194/93 H 168/82 H Pulse Oximetry 91 L 91 L 92 L 01/21/18 03:09 01/21/18 03:54 01/21/18 04:00 Temperature 99.5 F Pulse Rate 95 H 90 Respiratory Rate 37 H 38 H Blood Pressure 177/90 H Pulse Oximetry 92 L 92 L 90 L 01/21/18 04:09 01/21/18 05:00 01/21/18 05:09 Temperature Pulse Rate 85 87 95 H Respiratory Rate 23 23 27 H Blood Pressure 171/77 H 199/81 H Pulse Oximetry 97 95 93 L 01/21/18 05:27 01/21/18 05:32 01/21/18 05:34 Temperature Pulse Rate 90 93 H Respiratory Rate 34 H 38 H Blood Pressure 192/91 H 182/101 H Pulse Oximetry 88 L 94 L 96 01/21/18 05:47 01/21/18 06:00 01/21/18 06:09 Temperature Pulse Rate 84 82 79 Respiratory Rate 28 H 27 H 27 H Blood Pressure 156/81 H 141/69 H Pulse Oximetry 100 100 100 01/21/18 07:00 01/21/18 07:09 01/21/18 07:30 Temperature Pulse Rate 88 84 Respiratory Rate 28 H 27 H Blood Pressure 161/74 H Pulse Oximetry 96 100 98 01/21/18 08:00 01/21/18 08:09 01/21/18 09:00 Temperature 99.5 F Pulse Rate 78 80 80 Respiratory Rate 28 H 27 H 31 H Blood Pressure 161/74 H 146/69 H Pulse Oximetry 100 100 100 01/21/18 09:09 01/21/18 10:00 01/21/18 10:09 Temperature Pulse Rate 77 95 H 97 H Respiratory Rate 27 H 26 H 41 H Blood Pressure 157/84 H 147/70 H Pulse Oximetry 95 90 L 80 L 01/21/18 11:00 01/21/18 11:09 01/21/18 11:35 Temperature Pulse Rate 97 H 93 H 93 H Respiratory Rate 37 H 33 H 34 H Blood Pressure 151/81 H Pulse Oximetry 86 L 87 L 01/21/18 11:55 01/21/18 12:00 01/21/18 12:09 Temperature 99.6 F Pulse Rate 100 H 98 H Respiratory Rate 32 H 28 H Blood Pressure 157/76 H 157/76 H Pulse Oximetry 90 L 90 L 91 L 01/21/18 13:00 01/21/18 13:09 01/21/18 14:00 Temperature Pulse Rate 80 80 91 H Respiratory Rate 25 H 27 H 31 H Blood Pressure 140/62 Pulse Oximetry 94 L 95 90 L 01/21/18 14:09 01/21/18 15:00 01/21/18 15:09 Temperature Pulse Rate 96 H 77 75 Respiratory Rate 31 H 24 25 H Blood Pressure 176/74 H 157/70 H Pulse Oximetry 92 L 94 L 95 01/21/18 16:00 01/21/18 16:09 01/21/18 17:00 Temperature 98 F Pulse Rate 76 69 79 Respiratory Rate 23 26 H 27 H Blood Pressure 126/77 126/77 Pulse Oximetry 97 92 L 96 01/21/18 17:09 01/21/18 18:00 Temperature Pulse Rate 66 76 Respiratory Rate 25 H 24 Blood Pressure 141/64 H Pulse Oximetry 95 95 Intake & Output 01/21/18 01/21/18 01/22/18 06:59 18:59 06:59 Intake Total 300 / 300 300 / 300 Output Total 3075 / 3075 2350 / 2350 Balance -2775 / -2775 -2049 / -2049 Weight 69.2 kg Intake: IV 300 / 300 Flexbumin 25% Inj 100 ML @ 60 100 / 100 mls/hr IV.SIG Q12H [facility] Rx#: [id number] Merrem Inj 1,000 MG In NS Inj 100 / 100 100 ML @ 200 mls/hr IV.SIG Q12H [facility] Rx#:[id number] Mycamine Inj 150 MG In NS Inj 100 / 100 100 ML @ 100 mls/hr IV.SIG Q24H [facility] Rx#:[id number] Oral 240 / 240 Oral Supplement 60 / 60 Output: Urine Amount (Catheter) 3075 / 3075 2350 / 2350 Indwelling Urethral Catheter 3075 / 3075 2350 / 2350 Other: Date of Last Bowel Movement 01/20/18 01/20/18 # Bowel Movements 0 Narrative: Mr Lujan is alert but lethargic, awake and oriented to self. On Bipap mask Cranial nerve examination demonstrates the pupils to be equal, round, and reactive to light. Extra-ocular movements are intact with normal convergence. Facial motornormal and symmetrical.face sensation,hearing, visual acuity, taste, and olfaction can not be assessed due to the patient's neurological condition.Sternocleidomastoid and deltoid musclesasymmetrical. Neck is soft and supple. Muscle testing revealsnormal bulk and tonewith gross movement in both upper and lowerextremities Sensory examination isgrossly preserved Deep tendon reflexes are1+ and symmetrical in upper andlower extremities. Bilateral plantar flexion response. Hoffmanns sign is negative. There is no clonus or other abnormal reflexes noted. Cerebellar examinationcan not be assessed due the patient's neurological condition Lungs: clear Heart: Regular rhythm and rate Skin: warm and dry - Urinary Catheter Management Condom Cath placed during this visit: no Indwelling Urethral Catheter Cath placed during this visit: yes Reason for continuing: Hourly intake/output Insertion date: 01/20/18 Insertion time: 11:30 Assessment and Plan - Plan 82 year old male Sepsis left shoulder abscess s/p I&D left neck abscess s/p drainage remote history of lumbar fusion with suspected chronic osteomyelitis Neuro. Continue neuro checks. His nuclear medicine scan shows multiple areas of abnormal uptake including at the upper lumbar spine around the upper left surgical hardware and at the L1-2 disc level, abnormal activity in the right C2- 3 facet and the left C7-T1 facet, All these areas are concerning for active infection. Recommend MRI lumbar spine to rule out epidural abscess once that he is medically stable. he is not stable to undergo an MRI at this point Acute combined hypercapnic and hypoxemic respiratory failure requiring BiPAP Fluid overload/Pulmonary edema CXR reviewed, ABG reviewed. His findings discussed with Dr Morales. I recommend to consider endotracheal intubation He may need to return to ICU -BNP elevated 2451s. Patient is diuresed, repeat BNP at 2030. Reconsult his cardiology. Note recent ECHO on 01/17 with EF of 60% -Severe respiratory distress requiring BiPAP noninvasive ventilation probably need intubation -duonebs -Continue IV lasix monitor closely kidney function. -Scott placed for accurate I&Os and BPH -Monitor UOP -Avoid steroids if possible as patient with extensive infection see below - Continue BiPAP as omid, wean off as tolerated. - Cardiology reconsulted - Consider pulm consult if need MRSA septicemia, septic right shoulder, L spine diskitis, left supraclavicular abscess Right shoulder effusion. septic right shoulder, s/p I&D Urinary tract infection. 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 Steroid tapered and DCd Patient has been afebrile . Vital signs are fairly stable Blood cultures positive for MRSA. 2D echocardiogram did not show any findings consistent with vegetations. Patient may need JUSTIN. Continue vancomycin, Levaquin Patient also had a right shoulder effusion, orthopedics aspirated the shoulder which grew approximately 30 cc of purulent fluid. had follow-up with orthopedics for their recommendations drainage of that right shoulder. Continue IV antibiotics per infectious disease recommendations. Infectious disease following repeat blood cultures ntd Cardiothoracic surgeon was consulted for evaluation of supraclavicular mass/ poss abscess NM WBC scan 01/18/18 and 01/19/18. Patient received ativan as not able to tolerate CT imaging he was noted agitated in CT and imaging needed to be repeat. Imaging discussed with radiology Dr and it seems patient with multiple focal infections bilateral shoulders, also back at the hardware with diskitis/ osteomyelitis. Neurology, ID, hem onc ff. CTS consulted no surgical intervention required at this time. IR consulted s/p CT-guided drainage of left posterior supraclavicular/posterior chest wall abscess on 01/17/18. Atrial Fibrillation, permanent Rate well controlled. Recent ECHO EF 65% Dr. Garner following. KEKE on CKD. Noted elevated serum creatinine of 1.64. Likely KEKE on CKD. 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 Will add ensure with meals. Consult [employer]. BPH - Continue Flomax. Daily PT and OT Endocrine: Continue to Monitor serial Acu checks and SSI as needed in detail Continue Protonix for stress ulcer prophylaxis Continue Randolph brewstere and SCD's for DVT prophylaxis Discussed with butcher all round and with his family in detail Further recommendations will be provided depending on the patient's clinical evaluation and follow up studies.
--- NOTE | 2018-01-22 04:49 | XR ---
EXAM DATE: 01/22/2018 4:28 AM EST AGE/SEX: 82 years / Male INDICATIONS: Shortness of breath. CLINICAL DATA: This is the patient's subsequent encounter. Patient reports that signs and symptoms h ave been present for 1 week and indicates a pain score of Nonresponsive. MEDICAL/SURGICAL HISTORY: . Hypertension. Gastroesophageal reflux disease. A-fib. None. COMPARISON: [facility] [place], CHEST 1V SINGLE AP, 01/21/2018. . FINDINGS: Bilateral mostly basilar airspace disease and pleural effusions. Drainage catheter overlies the left supraclavicular region. No pneumothorax. CONCLUSION: Bibasilar airspace consolidation with small effusions. No pneumothorax. No significant change since N . Electronically signed by: Alberto Richardson MD 01/22/2018 4:47 AM EST
[2018-01-22 04:55] LABS: ABG Base Excess 13.2 mmol/L (-2-2); ABG PCO2 52 mmHg (38-42); ABG PO2 73 mmHg (61-120)
[2018-01-22] MEDS: Albumin Human 25% Inj 100 ML IV.SIG SCH ×2 (05:12→17:44)
[2018-01-22] MEDS: Levothyroxine 100 MCG Tablet PO SCH (05:15)
[2018-01-22 05:48] LABS: Baso % (Auto) 0.1 % (0.0-2.0); Eos % (Auto) 0.2 % (0.0-4.0); Hematocrit 23.7 % (39.0-51.0); Hemoglobin 7.9 gm/dL (13.0-17.0); Lymph # (Auto) 0.4 th/mm3 (1.0-4.8); Lymph % (Auto) 4.4 % (9.0-44.0); Mean Corpuscular HGB Conc 33.2 % (32.0-36.0); Mean Corpuscular Hemoglobin 26.5 pg (27.0-34.0); Mean Corpuscular Volume 79.8 fL (80.0-100.0); Mean Platelet Volume 8.2 fL (7.0-11.0); Mono # (Auto) 0.1 th/mm3 (0.0-0.9); Mono % (Auto) 1.1 % (0.0-8.0); Neut # (Auto) 8.4 th/mm3 (1.8-7.7); Neut % (Auto) 94.2 % (16.0-70.0); Platelet Count 168 th/mm3 (150-450); Red Blood Count 2.96 mil/mm3 (4.50-5.90); Red Cell Distribution Width 19.2 % (11.6-17.2)
[2018-01-22 06:10] LABS: Alanine Aminotransferase 15 U/L (12-78); Albumin 2.8 g/dL (3.4-5.0); Aspartate Aminotransferase 5 U/L (15-37); Blood Urea Nitrogen 58 mg/dL (7-18); Calcium 8.2 mg/dL (8.5-10.1); Glomerular Filtration Rate 39 mL/min (>89); Glucose,Random 106 mg/dL (74-106)
[2018-01-22 06:26] LABS: Anion Gap 6 meq/L (5-15); Chloride 102 meq/L (98-107); Potassium 3.1 meq/L (3.5-5.1); Sodium 144 meq/L (136-145)
[2018-01-22 06:30] LABS: Alkaline Phosphatase 75 U/L (45-117); Total Protein 5.7 g/dL (6.4-8.2)
[2018-01-22 06:50] LABS: Vancomycin,Random 27.3 Comment
[2018-01-22] MEDS: Potassium Chlor 20 mEq Premix 20 MEQ/100 ML PIGGYBACK IV.SIG SCH ×2 (08:38→10:40)
[2018-01-22] MEDS: RESP: Levalbuterol 1.25 MG/3 ML Neb (SCH) NEB ×2 (09:44→23:38)
--- NOTE | 2018-01-22 09:58 | P.PNCA ---
Subjective Interval history: Patient has worsened respiratory status over past 48H Now on Bipap xray c/w pulmonary edema probably non cardiogenic low albumin possible aspiration inflammation. Renal function uip and down. Reviewed echo. Medications and Allergies Active Medications: Active Medications Acetaminophen (Tylenol) 650 mg PO Q4H PRN PRN Reason: Temp > 100.4 Hydrocodone Bitart/Acetaminophen ([place] 5/325) 1 tab PO Q4H PRN PRN Reason: PAIN LESS THAN 5 ON SCALE Last Admin: 01/19/18 08:04 Dose: 1 tab Hydrocodone Bitart/Acetaminophen ([place] 5/325) 2 tab PO Q6H PRN PRN Reason: PAIN SCALE 5 TO 10 Al Hydroxide/Mg Hydroxide (Milk Of Magnesia Liq) 30 ml PO Q12H PRN PRN Reason: Mild Constipation Amlodipine Besylate (Norvasc) 10 mg PO DAILY [facility] Last Admin: 01/21/18 09:11 Dose: 10 mg Bisacodyl (Dulcolax Supp) 10 mg RECTAL DAILY PRN PRN Reason: SEVERE CONSITIPATION Citalopram Hydrobromide (Celexa) 20 mg PO DAILY [facility] Last Admin: 01/21/18 09:11 Dose: 20 mg Furosemide (Lasix Inj) 40 mg IV.PUSH BID@0900,1800 [facility] Last Admin: 01/21/18 17:30 Dose: 40 mg Sodium Chloride (Ns Inj) 500 mls @ 30 mls/hr IV.SIG .Q10H [facility] Albumin Human (Flexbumin 25% Inj) 100 mls @ 60 mls/hr IV.SIG Q12H [facility] Last Infusion: 01/22/18 06:32 Dose: Infused Meropenem 1,000 mg/ Sodium (Chloride) 100 mls @ 200 mls/hr IV.SIG Q12H [facility] Last Infusion: 01/22/18 02:15 Dose: Infused Potassium Chloride (Kcl 20 Meq Premix Inj) 20 meq in 100 mls @ 50 mls/hr IV.SIG Q2HR [facility] Stop: 01/22/18 13:59 Last Admin: 01/22/18 08:38 Dose: 50 mls/hr Lactulose (Lactulose Liq) 30 ml PO DAILY PRN PRN Reason: SEVERE CONSITIPATION Levalbuterol HCl (Xopenex Neb) 1.25 mg NEB Q8HR NEB [facility] Last Admin: 01/22/18 09:44 Dose: 1.25 mg Levofloxacin (Levaquin) 750 mg PO Q48H [facility] Last Admin: 01/20/18 11:11 Dose: 750 mg Levothyroxine Sodium (Synthroid) 100 mcg PO DAILY@0600 [facility] Last Admin: 01/22/18 05:15 Dose: Not Given Melatonin (Melatonin) 5 mg PO HS [facility] Last Admin: 01/21/18 20:44 Dose: Not Given Metoprolol Succinate (Toprol Xl) 50 mg PO DAILY [facility] Last Admin: 01/21/18 10:26 Dose: 50 mg Morphine Sulfate (Morphine Inj) 2 mg IV.PUSH Q3H PRN PRN Reason: pain 1-10 when npo Last Admin: 01/17/18 08:35 Dose: 2 mg Ondansetron HCl (Zofran Inj) 4 mg IV.PUSH Q6H PRN PRN Reason: NAUSEA OR VOMITING Pantoprazole Sodium (Protonix) 20 mg PO DAILY [facility] Last Admin: 01/21/18 10:26 Dose: 20 mg Pharmacy Profile Note (Vancomycin Consult Pharmacy) 1 each OTHER UNSCH PRN PRN Reason: Pharmacy to dose Potassium Bicarb/Potassium Chloride (K-Lyte Cl Eff) 25 meq PO BID [facility] Last Admin: 01/21/18 20:42 Dose: Not Given Senna/Docusate Sodium (Diana-Colace) 1 tab PO BID [facility] Last Admin: 01/21/18 20:44 Dose: Not Given Sennosides (Senokot) 17.2 mg PO Q12H PRN PRN Reason: Moderate Constipation Sodium Chloride (Ns Flush) 2 ml IV.FLUSH BID [facility] Last Admin: 01/21/18 21:39 Dose: 2 ml Sodium Chloride (Ns Flush) 2 ml IV.FLUSH PRN PRN PRN Reason: FLUSH AFTER USING IV ACCESS Tamsulosin HCl (Flomax) 0.4 mg PO DAILY [facility] Last Admin: 01/21/18 10:25 Dose: 0.4 mg Allergies Allergy/AdvReac Type Severity Reaction Status Date / Time amoxicillin Allergy Severe Hives Verified 01/13/18 20:44 Home Medications Medication Instructions Recorded Confirmed Type amlodipine 5 mg PO DAILY 01/13/18 01/13/18 History citalopram 20 mg PO DAILY 01/13/18 01/13/18 History levothyroxine [Synthroid] 100 mcg PO DAILY 01/13/18 01/13/18 History lisinopril 10 mg PO DAILY 01/13/18 01/13/18 History metoprolol succinate 50 mg PO DAILY 01/13/18 01/13/18 History pantoprazole 20 mg PO DAILY 01/13/18 01/13/18 History prednisone 40 mg PO DAILY 01/13/18 01/13/18 History tamsulosin [Flomax] 0.4 mg PO DAILY 01/13/18 01/13/18 History Physical Exam Vital signs: Vital Signs 01/21/18 10:00 01/21/18 10:09 01/21/18 11:00 Temperature Pulse Rate 95 H 97 H 97 H Respiratory Rate 26 H 41 H 37 H Blood Pressure 147/70 H Pulse Oximetry 90 L 80 L 86 L 01/21/18 11:09 01/21/18 11:35 01/21/18 11:55 Temperature Pulse Rate 93 H 93 H Respiratory Rate 33 H 34 H Blood Pressure 151/81 H Pulse Oximetry 87 L 90 L 01/21/18 12:00 01/21/18 12:09 01/21/18 13:00 Temperature 99.6 F Pulse Rate 100 H 98 H 80 Respiratory Rate 32 H 28 H 25 H Blood Pressure 157/76 H 157/76 H Pulse Oximetry 90 L 91 L 94 L 01/21/18 13:09 01/21/18 14:00 01/21/18 14:09 Temperature Pulse Rate 80 91 H 96 H Respiratory Rate 27 H 31 H 31 H Blood Pressure 140/62 176/74 H Pulse Oximetry 95 90 L 92 L 01/21/18 15:00 01/21/18 15:09 01/21/18 16:00 Temperature 98 F Pulse Rate 77 75 76 Respiratory Rate 24 25 H 23 Blood Pressure 157/70 H 126/77 Pulse Oximetry 94 L 95 97 01/21/18 16:09 01/21/18 17:00 01/21/18 17:09 Temperature Pulse Rate 69 79 66 Respiratory Rate 26 H 27 H 25 H Blood Pressure 126/77 141/64 H Pulse Oximetry 92 L 96 95 01/21/18 18:00 01/21/18 18:09 01/21/18 18:30 Temperature Pulse Rate 76 70 77 Respiratory Rate 24 25 H 26 H Blood Pressure 128/64 Pulse Oximetry 95 96 97 01/21/18 19:00 01/21/18 19:09 01/21/18 19:30 Temperature 99.6 F Pulse Rate 61 60 70 Respiratory Rate 27 H 28 H 26 H Blood Pressure 125/58 L Pulse Oximetry 100 100 100 01/21/18 20:00 01/21/18 20:09 01/21/18 20:30 Temperature 99.6 F Pulse Rate 75 77 84 Respiratory Rate 27 H 25 H 21 Blood Pressure 153/75 H Pulse Oximetry 99 96 94 L 01/21/18 21:00 01/21/18 21:09 01/21/18 21:30 Temperature Pulse Rate 90 86 77 Respiratory Rate 29 H 30 H 25 H Blood Pressure 145/65 H Pulse Oximetry 97 89 L 88 L 01/21/18 22:00 01/21/18 22:09 01/21/18 23:00 Temperature Pulse Rate 70 73 82 Respiratory Rate 26 H 26 H 25 H Blood Pressure 139/82 Pulse Oximetry 95 99 01/21/18 23:09 01/22/18 00:00 01/22/18 00:09 Temperature 99.0 F Pulse Rate 79 67 60 Respiratory Rate 26 H 26 H 24 Blood Pressure 150/72 H 165/89 H Pulse Oximetry 92 L 94 L 96 01/22/18 01:00 01/22/18 01:09 01/22/18 02:00 Temperature Pulse Rate 78 70 91 H Respiratory Rate 29 H 25 H Blood Pressure 158/78 H Pulse Oximetry 97 98 97 01/22/18 02:09 01/22/18 03:00 01/22/18 03:09 Temperature Pulse Rate 85 68 82 Respiratory Rate 26 H 22 25 H Blood Pressure 146/74 H 168/82 H Pulse Oximetry 98 99 98 01/22/18 03:32 01/22/18 04:00 01/22/18 04:09 Temperature Pulse Rate 90 87 Respiratory Rate 30 H 21 Blood Pressure 145/70 H Pulse Oximetry 98 97 95 01/22/18 05:00 01/22/18 05:09 01/22/18 06:00 Temperature Pulse Rate 84 76 Respiratory Rate 30 H 24 Blood Pressure 155/70 H Pulse Oximetry 91 L 95 01/22/18 06:09 01/22/18 07:00 01/22/18 07:09 Temperature Pulse Rate 83 84 81 Respiratory Rate 19 23 46 H Blood Pressure 159/72 H 172/76 H Pulse Oximetry 94 L 90 L 91 L 01/22/18 07:49 01/22/18 08:00 01/22/18 09:45 Temperature 99.5 F Pulse Rate 61 62 Respiratory Rate 25 H 25 H Blood Pressure 159/82 H Pulse Oximetry 96 99 Intake & Output 01/21/18 01/22/18 01/22/18 18:59 06:59 18:59 Intake Total 500 / 500 200 / 200 Output Total 2350 / 2350 2400 / 2400 Balance -1850 / -1850 -2200 / -2200 Weight 69.4 kg Intake: IV 200 / 200 200 / 200 Flexbumin 25% Inj 100 ML @ 60 100 / 100 100 / 100 mls/hr IV.SIG Q12H [facility] Rx#: [id number] Merrem Inj 1,000 MG In NS Inj 100 / 100 100 / 100 100 ML @ 200 mls/hr IV.SIG Q12H [facility] Rx#:[id number] Oral 240 / 240 0 / 0 Oral Supplement 60 / 60 0 / 0 Output: Urine Amount (Catheter) 2350 / 2350 2400 / 2400 Indwelling Urethral Catheter 2350 / 2350 2400 / 2400 Wound Drainage 0 / 0 Left Shoulder 0 / 0 Other: Date of Last Bowel Movement 01/20/18 01/20/18 # Bowel Movements 0 0 Narrative: No JVD Lungs with decreased BS bilaterally No S3 1+ edema unchanged Somnolent - Urinary Catheter Management Condom Cath placed during this visit: no Indwelling Urethral Catheter Cath placed during this visit: yes Reason for continuing: Hourly intake/output Insertion date: 01/20/18 Insertion time: 11:30 Results 01/22/18 05:00 01/22/18 05:00 Cardiac Enzymes 01/21/18 01/21/18 01/22/18 Range/Units 04:59 08:12 05:00 AST 5 L (15-37) U/L Troponin I 0.02 (0.02-0.05) ng/mL B-Natriuretic Peptide 2030 H (0-100) pg/mL Coagulation 01/21/18 Range/Units 04:59 B-Natriuretic Peptide 2030 H (0-100) pg/mL CBC 01/21/18 01/22/18 Range/Units 04:59 05:00 WBC 10.7 9.0 (4.0-11.0) th/mm3 RBC 3.31 L 2.96 L (4.50-5.90) mil/mm3 Hgb 8.6 L 7.9 L (13.0-17.0) gm/dL Hct 27.4 L 23.7 L (39.0-51.0) % Plt Count 192 168 (150-450) th/mm3 Neut # (Auto) 10.3 H 8.4 H (1.8-7.7) th/mm3 Lymph # (Auto) 0.3 L 0.4 L (1.0-4.8) th/mm3 Edwards # (Auto) 0.1 0.1 (0.0-0.9) th/mm3 Eos # (Auto) 0.0 0.0 (0.0-0.4) th/mm3 Baso # (Auto) 0.0 0.0 (0.0-0.2) th/mm3 Comprehensive Metabolic Panel 01/21/18 01/22/18 Range/Units 04:59 05:00 Sodium 142 144 (136-145) meq/L Potassium 3.4 L D 3.1 L (3.5-5.1) meq/L Chloride 104 102 (98-107) meq/L Carbon Dioxide 31.4 37.0 H (21.0-32.0) meq/L BUN 58 H 58 H (7-18) mg/dL Creatinine 1.84 H 1.71 H (0.60-1.30) mg/dL Calcium 8.3 L D 8.2 L (8.5-10.1) mg/dL AST 5 L (15-37) U/L ALT 15 (12-78) U/L Alkaline Phosphatase 75 (45-117) U/L Total Protein 5.7 L (6.4-8.2) g/dL Albumin 2.8 L (3.4-5.0) g/dL Intake and Output 01/21/18 01/22/18 01/22/18 22:59 06:59 14:59 Intake Total 500 / 500 200 / 200 Output Total 2350 / 2350 2400 / 2400 Balance -1850 / -1850 -2200 / -2200 Intake: IV 200 / 200 200 / 200 Flexbumin 25% Inj 100 ML @ 60 100 / 100 100 / 100 mls/hr IV.SIG Q12H [facility] Rx#: [id number] Merrem Inj 1,000 MG In NS Inj 100 / 100 100 / 100 100 ML @ 200 mls/hr IV.SIG Q12H [facility] Rx#:[id number] Oral 240 / 240 0 / 0 Oral Supplement 60 / 60 0 / 0 Output: Urine Amount (Catheter) 2350 / 2350 2400 / 2400 Indwelling Urethral Catheter 2350 / 2350 2400 / 2400 Wound Drainage 0 / 0 Left Shoulder 0 / 0 Other: Date of Last Bowel Movement 01/20/18 01/20/18 # Bowel Movements 0 0 Weight 69.4 kg - Imaging and Cardiology Imaging: Impressions Chest X-Ray 01/20/18 11:30 CONCLUSION: Interval development of dense consolidative change in the right lung base. Shoulder X-Ray 01/21/18 00:00 CONCLUSION: Unusual positioning of the shoulder but I do not see any obvious displaced fracture of the shoulder. There is a healing third rib fracture and healing seventh rib fracture. Chest X-Ray 01/21/18 06:00 CONCLUSION: Bilateral mostly basilar airspace disease and pleural effusions similar to January 20. Chest X-Ray 01/22/18 06:00 CONCLUSION: Bibasilar airspace consolidation with small effusions. No pneumothorax. No significant change since January 21. Assessment and Plan - Assessment (1) Pulmonary edema Code(s): J81.1 - Chronic pulmonary edema Status: Acute Plan: Intubation, improved nutritional status feeding tube, continue antibiotics general support. No cardiac procedure planned. - Plan Discussed Condition With: Mass Spec and family members
[2018-01-22] MEDS ORDERED: Etomidate Inj 40 MG/20 ML Vial IV.PUSH ONE ×2 (10:36→10:57)
[2018-01-22] MEDS ORDERED: fentaNYL Citrate Inj 250 MCG/5 ML Ampul IV.PUSH STA (10:37)
[2018-01-22] MEDS ORDERED: fentaNYL Citrate Inj 100 MCG/2 ML Ampul IV.PUSH ONE (10:56)
[2018-01-22] MEDS ORDERED: fentaNYL Citrate Inj 100 MCG/2 ML Ampul ONE (10:57)
[2018-01-22] MEDS: Propofol 1000 mg/100 ml Inj 1,000 MG/100 ML BOTTLE IV.CONT PRN (11:55)
[2018-01-22] MEDS ORDERED: hydrALAZINE HCl Inj 20 MG/ML Vial ONE (11:59)
[2018-01-22 12:48] LABS: ABG PCO2 40 mmHg (38-42); ABG PO2 54 mmHg (61-120)
--- NOTE | 2018-01-22 13:01 | XR ---
EXAM DATE: 01/22/2018 12:56 PM EST AGE/SEX: 82 years / Male INDICATIONS: Central line placement. CLINICAL DATA: This is the patient's subsequent encounter. Patient reports that signs and symptoms h ave been present for 1 week and indicates a pain score of Nonresponsive. MEDICAL/SURGICAL HISTORY: Non-responsive. Fusion, lumbar. COMPARISON: [facility], CHEST 1V SINGLE AP, 01/22/2018. . FINDINGS: Endotracheal tube is present with tip several centimeters above the karan. Nasogastric tube descends into the stomach. Right neck central line descends to SVC. There is no evidence of pneumothorax. The re is extensive consolidation and likely volume loss in the right lower chest with associated effusio n. Mild parenchymal opacity in the contralateral left lung base. CONCLUSION: Satisfactory Central line placement. Bibasilar pleural-parenchymal opacities with worsening atelectas is in the right base. Electronically signed by: Misbah Sanchez MD 01/22/2018 1:00 PM EST
[2018-01-22] MEDS: fentaNYL 10 mcg/mL Premix Drip 2,500 MCG/250 ML BAG IV.SIG PRN (14:13)
--- NOTE | 2018-01-22 14:58 | P.PNCC ---
Subjective Subjective Remarks/Hospital Course: This 82-year-old gentleman was transferred emergently from the floor to the surgical intensive care unit because of rapid onset combined hypoxemic and hypercapnic respiratory failure. On arrival he has diffuse crackles throughout both lung santizo and his neck veins are distended. On admission several days ago he was dehydrated and had an element of acute kidney injury. His weight is up about 5 kg since admission though his renal function has improved. On arrival he is breathing 40 times a minute on a nonrebreathing mask with pH of 7.18 and P CO2 of 74. His acidosis is purely respiratory and associated with bronchospasm from fluid overload. B natruretic peptide is elevated to greater than 2000. Other pertinent major problems include septic joint drainage and treatment. 01/22: Critical care reconsulted for worsening resp status. On BIPAP with fulkl face mask. CXR with bilat infiltrates/ pulm edema. Reaccumulated rt shoulder collection. After d/w family proceeded with intubation and placed patient on [facility] ventilation. Placed central line. D/W Dr. Mani Sherman who is arranging US guided drainage/ drain placement for shoulder collection. Objective Vital Signs / I&O: Vital Signs 01/21/18 15:00 01/21/18 15:09 01/21/18 16:00 Temperature 98 F Pulse Rate 77 75 76 Respiratory Rate 24 25 H 23 Blood Pressure 157/70 H 126/77 Pulse Oximetry 94 L 95 97 01/21/18 16:09 01/21/18 17:00 01/21/18 17:09 Temperature Pulse Rate 69 79 66 Respiratory Rate 26 H 27 H 25 H Blood Pressure 126/77 141/64 H Pulse Oximetry 92 L 96 95 01/21/18 18:00 01/21/18 18:09 01/21/18 18:30 Temperature Pulse Rate 76 70 77 Respiratory Rate 24 25 H 26 H Blood Pressure 128/64 Pulse Oximetry 95 96 97 01/21/18 19:00 01/21/18 19:09 01/21/18 19:30 Temperature 99.6 F Pulse Rate 61 60 70 Respiratory Rate 27 H 28 H 26 H Blood Pressure 125/58 L Pulse Oximetry 100 100 100 01/21/18 20:00 01/21/18 20:09 01/21/18 20:30 Temperature 99.6 F Pulse Rate 75 77 84 Respiratory Rate 27 H 25 H 21 Blood Pressure 153/75 H Pulse Oximetry 99 96 94 L 01/21/18 21:00 01/21/18 21:09 01/21/18 21:30 Temperature Pulse Rate 90 86 77 Respiratory Rate 29 H 30 H 25 H Blood Pressure 145/65 H Pulse Oximetry 97 89 L 88 L 01/21/18 22:00 01/21/18 22:09 01/21/18 23:00 Temperature Pulse Rate 70 73 82 Respiratory Rate 26 H 26 H 25 H Blood Pressure 139/82 Pulse Oximetry 95 99 01/21/18 23:09 01/22/18 00:00 01/22/18 00:09 Temperature 99.0 F Pulse Rate 79 67 60 Respiratory Rate 26 H 26 H 24 Blood Pressure 150/72 H 165/89 H Pulse Oximetry 92 L 94 L 96 01/22/18 01:00 01/22/18 01:09 01/22/18 02:00 Temperature Pulse Rate 78 70 91 H Respiratory Rate 29 H 25 H Blood Pressure 158/78 H Pulse Oximetry 97 98 97 01/22/18 02:09 01/22/18 03:00 01/22/18 03:09 Temperature Pulse Rate 85 68 82 Respiratory Rate 26 H 22 25 H Blood Pressure 146/74 H 168/82 H Pulse Oximetry 98 99 98 01/22/18 03:32 01/22/18 04:00 01/22/18 04:09 Temperature Pulse Rate 90 87 Respiratory Rate 30 H 21 Blood Pressure 145/70 H Pulse Oximetry 98 97 95 01/22/18 05:00 01/22/18 05:09 01/22/18 06:00 Temperature Pulse Rate 84 76 Respiratory Rate 30 H 24 Blood Pressure 155/70 H Pulse Oximetry 91 L 95 01/22/18 06:09 01/22/18 07:00 01/22/18 07:09 Temperature Pulse Rate 83 84 81 Respiratory Rate 19 23 46 H Blood Pressure 159/72 H 172/76 H Pulse Oximetry 94 L 90 L 91 L 01/22/18 07:49 01/22/18 08:00 01/22/18 08:09 Temperature 99.5 F Pulse Rate 61 73 Respiratory Rate 25 H 25 H Blood Pressure 159/82 H 159/82 H Pulse Oximetry 96 99 97 01/22/18 09:00 01/22/18 09:09 11/28/18 09:45 Temperature Pulse Rate 73 61 62 Respiratory Rate 26 H 23 25 H Blood Pressure 160/74 H Pulse Oximetry 96 94 L 01/22/18 10:00 01/22/18 11:52 Temperature Pulse Rate 62 Respiratory Rate 23 16 Blood Pressure Pulse Oximetry 94 L 97 Intake & Output 01/21/18 01/22/18 01/22/18 18:59 06:59 18:59 Intake Total 500 / 500 200 / 200 Output Total 2350 / 2350 2400 / 2400 Balance -1850 / -1850 -2200 / -2200 Weight 69.4 kg Intake: IV 200 / 200 200 / 200 Flexbumin 25% Inj 100 ML @ 60 100 / 100 100 / 100 mls/hr IV.SIG Q12H [facility] Rx#: [id number] Merrem Inj 1,000 MG In NS Inj 100 / 100 100 / 100 100 ML @ 200 mls/hr IV.SIG Q12H [facility] Rx#:[id number] Oral 240 / 240 0 / 0 Oral Supplement 60 / 60 0 / 0 Output: Urine Amount (Catheter) 2350 / 2350 2400 / 2400 Indwelling Urethral Catheter 2350 / 2350 2400 / 2400 Wound Drainage 0 / 0 Left Shoulder 0 / 0 Other: Date of Last Bowel Movement 01/20/18 01/20/18 # Bowel Movements 0 0 Result Diagrams: 01/22/18 05:00 01/22/18 05:00 Other Results: Laboratory Results - last 24 hr 01/15/18 01/21/18 01/22/18 11:44 20:17 04:44 WBC RBC Hgb Hct MCV MCH MCHC RDW Plt Count MPV Neut % (Auto) Lymph % (Auto) [place] % (Auto) Eos % (Auto) Baso % (Auto) Neut # (Auto) Lymph # (Auto) [place] # (Auto) Eos # (Auto) Baso # (Auto) WBC Differential Differential Comment Puncture Site Right brachial Right brachial Patient Temperature 98.6 98.6 O2 Saturation 87 L* 92 ABG pH 7.48 H 7.48 H ABG pCO2 49 H 52 H* ABG pO2 56 L* 73 ABG HCO3 36 H 38 H ABG O2 Content 9.3 L 10.2 L ABG Base Excess 11.4 H 13.2 H ABG Methemoglobin 1.0 0.9 Blane Test Hemoglobin 7.6 L* 7.8 L* Carboxyhemoglobin 0.0 0.0 O2 Delivery Device Nasal cannula Bipap Liter Flow 6.00 Vent Setting Ipap 15/epap 5 Inspired O2 44 60 Critical Value Yes Yes Sodium Potassium Chloride Carbon Dioxide Anion Gap BUN Creatinine Estimated GFR Random Glucose Lactic Acid Calcium Total Bilirubin AST ALT Alkaline Phosphatase Total Protein Albumin Albumin (PEP) 1.82 L Albumin/Globulin Ratio 0.73 L Depcg-9-Hmbfunrhm 0.31 H Axbzl-2-Yyzztyvrw 0.86 Beta Globulins 0.58 Gamma Globulins 0.74 Random Vancomycin 01/22/18 01/22/18 01/22/18 05:00 05:00 05:00 WBC 9.0 RBC 2.96 L Hgb 7.9 L Hct 23.7 L MCV 79.8 L MCH 26.5 L MCHC 33.2 RDW 19.2 H Plt Count 168 MPV 8.2 Neut % (Auto) 94.2 H Lymph % (Auto) 4.4 L [place] % (Auto) 1.1 Eos % (Auto) 0.2 Baso % (Auto) 0.1 Neut # (Auto) 8.4 H Lymph # (Auto) 0.4 L [place] # (Auto) 0.1 Eos # (Auto) 0.0 Baso # (Auto) 0.0 WBC Differential . Differential Comment Auto diff final Puncture Site Patient Temperature O2 Saturation ABG pH ABG pCO2 ABG pO2 ABG HCO3 ABG O2 Content ABG Base Excess ABG Methemoglobin Blane Test Hemoglobin Carboxyhemoglobin O2 Delivery Device Liter Flow Vent Setting Inspired O2 Critical Value Sodium 144 Potassium 3.1 L Chloride 102 Carbon Dioxide 37.0 H Anion Gap 6 BUN 58 H Creatinine 1.71 H Estimated GFR 39 L Random Glucose 106 Lactic Acid 0.8 Calcium 8.2 L Total Bilirubin 0.8 AST 5 L ALT 15 Alkaline Phosphatase 75 Total Protein 5.7 L Albumin 2.8 L Albumin (PEP) Albumin/Globulin Ratio Dsguf-0-Oppabggfo Mpqjv-8-Oobaqqcfv Beta Globulins Gamma Globulins Random Vancomycin 27.3 01/22/18 12:25 WBC RBC Hgb Hct MCV MCH MCHC RDW Plt Count MPV Neut % (Auto) Lymph % (Auto) [place] % (Auto) Eos % (Auto) Baso % (Auto) Neut # (Auto) Lymph # (Auto) [place] # (Auto) Eos # (Auto) Baso # (Auto) WBC Differential Differential Comment Puncture Site Right radial Patient Temperature 98.6 O2 Saturation 88 L* ABG pH 7.56 H* ABG pCO2 40 ABG pO2 54 L* ABG HCO3 36 H ABG O2 Content 9.6 L ABG Base Excess 12.0 H ABG Methemoglobin 0.8 Blane Test Present Hemoglobin 7.8 L* Carboxyhemoglobin 0.0 O2 Delivery Device Ventilator Liter Flow Vent Setting Prvc16/500/1.1/+10 Inspired O2 80 Critical Value Yes Sodium Potassium Chloride Carbon Dioxide Anion Gap BUN Creatinine Estimated GFR Random Glucose Lactic Acid Calcium Total Bilirubin AST ALT Alkaline Phosphatase Total Protein Albumin Albumin (PEP) Albumin/Globulin Ratio Umaun-2-Jehnzzbkv Iqrzg-9-Wwdyzwksu Beta Globulins Gamma Globulins Random Vancomycin Imaging: Impressions Shoulder X-Ray 01/21/18 00:00 CONCLUSION: Unusual positioning of the shoulder but I do not see any obvious displaced fracture of the shoulder. There is a healing third rib fracture and healing seventh rib fracture. Chest X-Ray 01/21/18 06:00 CONCLUSION: Bilateral mostly basilar airspace disease and pleural effusions similar to January 20. Chest X-Ray 01/22/18 00:00 CONCLUSION: Satisfactory Central line placement. Bibasilar pleural-parenchymal opacities with worsening atelectasis in the right base. Chest X-Ray 01/22/18 06:00 CONCLUSION: Bibasilar airspace consolidation with small effusions. No pneumothorax. No significant change since January 21. Objective Remarks: sedated, orally intubated o nmech ventilation. HEENT/ Neuro: Sedated, orally intubated, arousable, pallor present. Neck: No JVD Chest/pulm: on mech vent, air entry decreased at bases, bilat rhonchi, no wheezing. CVS: S1S2 regular Abd: Soft, nontender, BS present Ext: warm bilaterally Assessment and Plan - Assessment and Plan Plan: Assessment and Plan: Acute combined hypercapnic and hypoxemic respiratory failure Fluid overload/noncardiogenic Pulmonary edema secondary to sepsis -BNP greater than 2000 -Bronchodilators -diuresis to mobilize fluid -Scott required for BPH well diuresis -Borderline O2sats on BIPAP, intubated and placed on mech ventilation on 01/22. MRSA septicemia, septic right shoulder, L spine diskitis, left supraclavicular abscess Right shoulder effusion. septic right shoulder, s/p I&D Urinary tract infection. 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 Taper steroid Blood cultures positive for MRSA. 2D echocardiogram did not show any findings consistent with vegetations. Continue vancomycin, Levaquin, meropenem per ID. Patient also had a right shoulder effusion, orthopedics aspirated the shoulder - approximately 30 cc of purulent fluid. had follow-up with orthopedics for their recommendations drainage of that right shoulder. Continue IV antibiotics per infectious disease recommendations. Infectious disease following repeat blood cultures ntd Cardiothoracic surgeon was consulted for evaluation of supraclavicular mass/ poss abscess NM WBC scan 01/18/18 and 01/19/18. Patient received ativan as not able to tolerate CT imaging he was noted agitated in CT and imaging needed to be repeat. Imaging discussed with radiology Dr and it seems patient with multiple focal infections bilateral shoulders, also back at the hardware with diskitis/ osteomyelitis. Neurology, ID, hem onc ff. CTS consulted no surgical intervention required at this time. IR consulted s/p CT-guided drainage of left posterior supraclavicular/posterior chest wall abscess on 01/17/18. US guided drainage of shoulder collection by IR planned for 01/22 KEKE on CKD. Being diuresed, Strict I/O, monitor/ replete electrolytes, follow BUN/ Cr Nephrology ff appreciate recs Atrial Fibrillation, permanent Rate well controlled. Recent ECHO EF 65% Dr. Garner following. Protein calorie malnutrition -Inserted NGT, start tube feeds and advance to goal as tolerated. BPH - Continue Flomax. DVT prophylaxis per surgeon Access: RIJ central line placed 01/22 D/w Dr. Mani Sherman, D/W [employer], D/Wmultiple family members. D/W family at bedside regarding current clinical status and plan of care and they voiced understanding and were agreeable with plan of care. Overall impression: Acute respiratory distress requiring mech ventilation ventilation. Immediate problem is fluid overload with noncardiogenic pulmonary edema. New right lower lung field infiltrate concerning -atelectasis versus consolidation, I favor the latter. The patient is critically ill with unstable respiratory status requiring mech ventilation. Planning bronch/ BAL for thick pulm secretions. Critical care time 50 minutes aside from procedures.
[2018-01-22] MEDS: Citalopram 20 MG Tablet PO SCH (15:45)
[2018-01-22] MEDS: Potassium Chloride 25 MEQ Effervescent Tablet PO SCH ×2 (15:47→20:52)
[2018-01-22] MEDS: levoFLOXacin 750 MG Tablet PO SCH (15:47)
[2018-01-22] MEDS: amLODIPine 5 MG Tablet PO SCH (15:47)
[2018-01-22] MEDS: Pantoprazole Sodium 20 MG DR Tablet PO SCH (15:48)
[2018-01-22] MEDS: Senna/Docusate Sodium 8.6/50 MG Tablet PO SCH ×2 (15:48→20:52)
[2018-01-22] MEDS: Oral Hygiene Kit OROPHARYNG SCH ×2 (15:49→17:44)
--- NOTE | 2018-01-22 16:32 | P.PCN ---
Date of procedure: 01/22/18 Pre-op diagnosis: Acute respiratory failure Post-op diagnosis: same Procedure: Procedure: Endotracheal intubation Sedation used: Etomidate 30 mg, fentanyl to 50 Mcg, rocuronium 50 mg IV Procedure: Patient was preoxygenated with 100% oxygen via Ambu bag with bag mask ventilation, following induction of sedation and neuromuscular blockade, laryngoscopy was performed using a glidescope with good visualization of vocal cords. An 8 Urdu ET tube was passed through the vocal cords under direct visualization up to the 23 centimeter estevan and after inflating cuff of ET tube, correct placement was confirmed using bagging with good color change on CO2 detector, 5 point auscultation and chest rise with ventilation. Patient was connected to mechanical ventilation. Patient tolerated the procedure well with no immediate complications noted. Postprocedure chest x-ray was ordered.
--- NOTE | 2018-01-22 16:34 | P.PCN ---
Date of procedure: 01/22/18 Pre-op diagnosis: Acute respiratory failure, sepsis Post-op diagnosis: same Procedure: PROCEDURE PERFORMED Right internal jugular vein central venous catheter placement under ultrasound guidance. INDICATIONS Central vascular access INFORMED CONSENT Informed consent obtained from family and documented on chart. ANESTHESIA 1% Lidocaine for local infiltration anesthesia. PROCEDURE After sterile prepping and draping using 1% lidocaine for local infiltration anesthesia, the right internal jugular vein was visualized using an ultrasound vessel finder and under direct visualization was cannulated using an introducer Angiocath with dark non-pulsatile blood return. An Angiocath was advanced into the internal jugular vein without any resistance and the needle was then removed. Blood return was confirmed through the Angiocath following which a guidewire was passed through the Angiocath into the right internal jugular vein without any resistance and the Angiocath was then removed. After making a skin sheela and dilation of tract, a 20 cm antimicrobial coated triple lumen catheter was passed over the guidewire by modified Seldinger technique into the right internal jugular vein up to the 18 cm estevan and the guidewire was then removed. Good blood return obtained through all three ports which were then flushed and capped. After securing the catheter in place with a StatLock, a Bio-occlusive dressing with Biopatch was applied to the site. The patient tolerated the procedure well with no immediate complications noted. A postprocedure chest x-ray was ordered and reviewed with good placement of right IJ central venous catheter with tip overlying SVC. No pneumothorax on post-procedure film. Anesthesia: local
--- NOTE | 2018-01-22 16:54 | P.PNNP ---
Subjective Interval history: Patient is having bronchoscopy Physical Exam Vital signs: Vital Signs 01/21/18 17:00 01/21/18 17:09 01/21/18 18:00 Temperature Pulse Rate 79 66 76 Respiratory Rate 27 H 25 H 24 Blood Pressure 141/64 H Pulse Oximetry 96 95 95 01/21/18 18:09 01/21/18 18:30 01/21/18 19:00 Temperature Pulse Rate 70 77 61 Respiratory Rate 25 H 26 H 27 H Blood Pressure 128/64 Pulse Oximetry 96 97 100 01/21/18 19:09 01/21/18 19:30 01/21/18 20:00 Temperature 99.6 F 99.6 F Pulse Rate 60 70 75 Respiratory Rate 28 H 26 H 27 H Blood Pressure 125/58 L Pulse Oximetry 100 100 99 01/21/18 20:09 01/21/18 20:30 01/21/18 21:00 Temperature Pulse Rate 77 84 90 Respiratory Rate 25 H 21 29 H Blood Pressure 153/75 H Pulse Oximetry 96 94 L 97 01/21/18 21:09 01/21/18 21:30 01/21/18 22:00 Temperature Pulse Rate 86 77 70 Respiratory Rate 30 H 25 H 26 H Blood Pressure 145/65 H Pulse Oximetry 89 L 88 L 01/21/18 22:09 01/21/18 23:00 01/21/18 23:09 Temperature Pulse Rate 73 82 79 Respiratory Rate 26 H 25 H 26 H Blood Pressure 139/82 150/72 H Pulse Oximetry 95 99 92 L 01/22/18 00:00 01/22/18 00:09 01/22/18 01:00 Temperature 99.0 F Pulse Rate 67 60 78 Respiratory Rate 26 H 24 29 H Blood Pressure 165/89 H Pulse Oximetry 94 L 96 97 01/22/18 01:09 01/22/18 02:00 01/22/18 02:09 Temperature Pulse Rate 70 91 H 85 Respiratory Rate 25 H 26 H Blood Pressure 158/78 H 146/74 H Pulse Oximetry 98 97 98 01/22/18 03:00 01/22/18 03:09 01/22/18 03:32 Temperature Pulse Rate 68 82 Respiratory Rate 22 25 H Blood Pressure 168/82 H Pulse Oximetry 99 98 98 01/22/18 04:00 01/22/18 04:09 01/22/18 05:00 Temperature Pulse Rate 90 87 84 Respiratory Rate 30 H 21 30 H Blood Pressure 145/70 H Pulse Oximetry 97 95 91 L 01/22/18 05:09 01/22/18 06:00 01/22/18 06:09 Temperature Pulse Rate 76 83 Respiratory Rate 24 19 Blood Pressure 155/70 H 159/72 H Pulse Oximetry 95 94 L 01/22/18 07:00 01/22/18 07:09 01/22/18 07:49 Temperature Pulse Rate 84 81 Respiratory Rate 23 46 H Blood Pressure 172/76 H Pulse Oximetry 90 L 91 L 96 01/22/18 08:00 01/22/18 08:09 01/22/18 09:00 Temperature 99.5 F Pulse Rate 61 73 73 Respiratory Rate 25 H 25 H 26 H Blood Pressure 159/82 H 159/82 H Pulse Oximetry 99 97 96 01/22/18 09:09 01/22/18 09:45 01/22/18 10:00 Temperature Pulse Rate 61 62 62 Respiratory Rate 23 25 H 23 Blood Pressure 160/74 H Pulse Oximetry 94 L 94 L 01/22/18 11:49 01/22/18 11:51 01/22/18 11:52 Temperature Pulse Rate 61 Respiratory Rate 16 16 Blood Pressure 184/85 H 170/111 H Pulse Oximetry 96 97 01/22/18 11:53 01/22/18 11:55 01/22/18 11:57 Temperature Pulse Rate 89 65 61 Respiratory Rate 29 H 16 16 Blood Pressure 194/91 H 196/91 H 190/86 H Pulse Oximetry 95 95 94 L 01/22/18 11:59 01/22/18 12:00 01/22/18 12:01 Temperature Pulse Rate 82 63 64 Respiratory Rate 19 16 16 Blood Pressure 174/79 H 160/75 H Pulse Oximetry 94 L 94 L 93 L 01/22/18 12:03 01/22/18 12:05 01/22/18 12:07 Temperature Pulse Rate 81 73 73 Respiratory Rate 16 16 16 Blood Pressure 155/74 H 138/67 127/60 Pulse Oximetry 93 L 94 L 93 L 01/22/18 12:09 01/22/18 12:11 01/22/18 12:13 Temperature Pulse Rate 73 79 71 Respiratory Rate 16 16 16 Blood Pressure 120/59 L 118/59 L 118/58 L Pulse Oximetry 92 L 92 L 92 L 01/22/18 12:15 01/22/18 12:30 01/22/18 12:45 Temperature Pulse Rate 72 90 65 Respiratory Rate 16 16 16 Blood Pressure 121/57 L 112/55 L 111/55 L Pulse Oximetry 93 L 91 L 95 01/22/18 13:00 01/22/18 13:15 01/22/18 13:30 Temperature Pulse Rate 58 L 58 L 59 L Respiratory Rate 16 16 16 Blood Pressure 125/58 L 143/65 H 156/68 H Pulse Oximetry 96 96 97 01/22/18 13:45 01/22/18 14:00 01/22/18 14:15 Temperature Pulse Rate 55 L 55 L 56 L Respiratory Rate 16 16 16 Blood Pressure 160/70 H 142/67 H 141/65 H Pulse Oximetry 97 97 97 01/22/18 14:30 01/22/18 14:45 01/22/18 15:00 Temperature Pulse Rate 55 L 54 L 50 L Respiratory Rate 16 16 16 Blood Pressure 139/60 156/66 H 152/68 H Pulse Oximetry 97 97 96 01/22/18 15:15 01/22/18 15:30 01/22/18 15:31 Temperature Pulse Rate 56 L 53 L 67 Respiratory Rate 16 16 16 Blood Pressure 159/75 H 147/67 H Pulse Oximetry 96 96 96 01/22/18 15:45 01/22/18 16:00 Temperature 99 F Pulse Rate 57 L 58 L Respiratory Rate 16 16 Blood Pressure 147/65 H 140/70 Pulse Oximetry 96 96 Intake & Output 01/21/18 01/22/18 01/22/18 18:59 06:59 18:59 Intake Total 500 / 500 200 / 200 200 / 200 Output Total 2350 / 2350 2400 / 2400 Balance -1850 / -1850 -2200 / -2200 200 / 200 Weight 69.4 kg Intake: IV 200 / 200 200 / 200 200 / 200 Flexbumin 25% Inj 100 ML @ 60 100 / 100 100 / 100 mls/hr IV.SIG Q12H [facility] Rx#: [id number] Merrem Inj 1,000 MG In NS Inj 100 / 100 100 / 100 100 ML @ 200 mls/hr IV.SIG Q12H [facility] Rx#:[id number] KCl 20 mEq Premix Inj 20 meq In 200 / 200 100 ml @ 50 mls/hr IV.SIG Q2HR [facility] Rx#:[id number] Oral 240 / 240 0 / 0 Oral Supplement 60 / 60 0 / 0 Output: Urine Amount (Catheter) 2350 / 2350 2400 / 2400 Indwelling Urethral Catheter 2350 / 2350 2400 / 2400 Wound Drainage 0 / 0 Left Shoulder 0 / 0 Other: Date of Last Bowel Movement 01/20/18 01/20/18 # Bowel Movements 0 0 Narrative: No JVD Lungs with decreased BS bilaterally No S3 1+ edema unchanged Somnolent - Urinary Catheter Management Condom Cath placed during this visit: no Indwelling Urethral Catheter Cath placed during this visit: yes Reason for continuing: Hourly intake/output Insertion date: 01/20/18 Insertion time: 11:30 Assessment and Plan - Assessment (1) Acute renal failure Code(s): N17.9 - Acute kidney failure, unspecified Status: Acute (2) Atrial fibrillation Code(s): I48.91 - Unspecified atrial fibrillation Status: Acute Qualifiers: Atrial fibrillation type: unspecified Qualified Code(s): I48.91 - Unspecified atrial fibrillation (3) Sepsis Code(s): A41.9 - Sepsis, unspecified organism Status: Acute Qualifiers: Sepsis type: methicillin resistant Staphylococcus aureus Qualified Code(s) : A41.02 - Sepsis due to Methicillin resistant Staphylococcus aureus - Plan Patient is a 82-year-old male with history of renal insufficiency which is getting worse now most likely due to underlying sepsis MRSA, he is getting vancomycin as well, creatinine is 1.7 on Lasix 40 mg twice daily urine output , potassium replaced Patient remains in respiratory distress has been intubated Bronchoscopy performed Maintains urine output on Lasix MRI ordered of lumbar spine once stronger
--- NOTE | 2018-01-22 17:36 | XR ---
EXAM DATE: 01/22/2018 5:33 PM EST AGE/SEX: 82 years / Male INDICATIONS: Post bronchoscopy CLINICAL DATA: This is the patient's initial encounter. Patient reports that signs and symptoms have been present for 1 day and indicates a pain score of Nonresponsive. MEDICAL/SURGICAL HISTORY: Non-responsive. Fusion, lumbar. COMPARISON: C, CHEST 1V SINGLE AP, 01/22/2018. . FINDINGS: Endotracheal tube, nasogastric tube and right neck central line are stable. There has been interval i mprovement in aeration on the right with some reexpansion right lower lobe. Left base consolidation i s unchanged. Heart is mildly enlarged. CONCLUSION: Improved right base aeration. No evidence of pneumothorax or other complication post bronchoscopy Electronically signed by: Misbah Sanchez MD 01/22/2018 5:35 PM EST
[2018-01-22] MEDS ORDERED: Midazolam 100 MG/100 ML Inj 100 MG/100 ML BAG IV.CONT PRN (19:26)
--- NOTE | 2018-01-22 20:22 | P.PCN ---
Date of procedure: 01/22/18 Pre-op diagnosis: Acute respiratory failure, mucous plugging Post-op diagnosis: same Procedure: Procedure: fiberoptic bronchoscopy for bronchoscopy/ BAL Indication: Pulmonary toilet and obtaining BAL for gm stain and C/s. Operators: Dr. Kristopher Morales Informed consent obtained from family and documented in chart Anesthesia used Propofol gtt, Fentanyl 100mcg IV, Rocuronium 50 mg IV for neuromuscular blockade: Procedure: Patient was placed on 100% oxygen via ET tube/mechanical ventilator. After ensuring adequate sedation/analgesia/ neuromuscular blockade, fiberoptic bronchoscope was inserted via adapter on ET tube and advanced into the trachea upto the karan. Mucosa appeared normal with no erythema. Subsequently bronchoscope was advanced into the right mainstem bronchus and right sided airways. Significant mucus plugging noted in right main stem bronchus which was suctioned out. Rt sided airways with significant mucus plugs for which BAL performed. Specimen was collected for Gram stain and culture. Subsequently bronchoscope was withdrawn up to the karan and inserted down the left-sided airways. Mucosa appeared normal with no mucus plugs noted on left sided airways. Patient tolerated the procedure well with no immediate complications noted. Post procedure CXR ordered and reviewed-significant improvement over right lung field with better aeration noted. Condition: critical Disposition: ICU
[2018-01-22] MEDS: Melatonin 5 MG Tablet PO SCH (20:52)
[2018-01-22] MEDS: Chlorhexidine 0.12% Oral Kit 15 ML UDC OROPHARYNG SCH (20:53)
--- NOTE | 2018-01-22 22:27 | P.PNOP ---
Subjective Interval history: Patient is intubated and on vent. Family at bedside. Patient's primary RN was questioned regarding progress with drain placement for right shoulder at bedside ? Was informed that the patient had an US to evaluate amount of fluid collection to shoulder to see if drain is indicated. Plan is to place drain later tonight after scheduled bronchoscope. Patient has had worsening respiratory status throughout the day. Physical Exam Vital signs: Vital Signs 01/21/18 23:00 01/21/18 23:09 01/22/18 00:00 Temperature 99.0 F Pulse Rate 82 79 67 Respiratory Rate 25 H 26 H 26 H Blood Pressure 150/72 H Pulse Oximetry 99 92 L 94 L 01/22/18 00:09 01/22/18 01:00 01/22/18 01:09 Temperature Pulse Rate 60 78 70 Respiratory Rate 24 29 H 25 H Blood Pressure 165/89 H 158/78 H Pulse Oximetry 96 97 98 01/22/18 02:00 01/22/18 02:09 01/22/18 03:00 Temperature Pulse Rate 91 H 85 68 Respiratory Rate 26 H 22 Blood Pressure 146/74 H Pulse Oximetry 97 98 99 01/22/18 03:09 01/22/18 03:32 01/22/18 04:00 Temperature Pulse Rate 82 90 Respiratory Rate 25 H 30 H Blood Pressure 168/82 H Pulse Oximetry 98 98 97 01/22/18 04:09 01/22/18 05:00 01/22/18 05:09 Temperature Pulse Rate 87 84 Respiratory Rate 21 30 H Blood Pressure 145/70 H 155/70 H Pulse Oximetry 95 91 L 01/22/18 06:00 01/22/18 06:09 01/22/18 07:00 Temperature Pulse Rate 76 83 84 Respiratory Rate 24 19 23 Blood Pressure 159/72 H Pulse Oximetry 95 94 L 90 L 01/22/18 07:09 01/22/18 07:49 01/22/18 08:00 Temperature 99.5 F Pulse Rate 81 61 Respiratory Rate 46 H 25 H Blood Pressure 172/76 H 159/82 H Pulse Oximetry 91 L 96 99 01/22/18 08:09 01/22/18 09:00 01/22/18 09:09 Temperature Pulse Rate 73 73 61 Respiratory Rate 25 H 26 H 23 Blood Pressure 159/82 H 160/74 H Pulse Oximetry 97 96 94 L 01/22/18 09:45 11/28/18 10:00 01/22/18 11:49 Temperature Pulse Rate 62 62 Respiratory Rate 25 H 23 Blood Pressure 184/85 H Pulse Oximetry 94 L 01/22/18 11:51 01/22/18 11:52 01/22/18 11:53 Temperature Pulse Rate 61 89 Respiratory Rate 16 16 29 H Blood Pressure 170/111 H 194/91 H Pulse Oximetry 96 97 95 01/22/18 11:55 01/22/18 11:57 01/22/18 11:59 Temperature Pulse Rate 65 61 82 Respiratory Rate 16 16 19 Blood Pressure 196/91 H 190/86 H 174/79 H Pulse Oximetry 95 94 L 94 L 01/22/18 12:00 01/22/18 12:01 01/22/18 12:03 Temperature Pulse Rate 63 64 81 Respiratory Rate 16 16 16 Blood Pressure 160/75 H 155/74 H Pulse Oximetry 94 L 93 L 93 L 01/22/18 12:05 01/22/18 12:07 01/22/18 12:09 Temperature Pulse Rate 73 73 73 Respiratory Rate 16 16 16 Blood Pressure 138/67 127/60 120/59 L Pulse Oximetry 94 L 93 L 92 L 01/22/18 12:11 01/22/18 12:13 01/22/18 12:15 Temperature Pulse Rate 79 71 72 Respiratory Rate 16 16 16 Blood Pressure 118/59 L 118/58 L 121/57 L Pulse Oximetry 92 L 92 L 93 L 01/22/18 12:30 01/22/18 12:45 01/22/18 13:00 Temperature Pulse Rate 90 65 58 L Respiratory Rate 16 16 16 Blood Pressure 112/55 L 111/55 L 125/58 L Pulse Oximetry 91 L 95 96 01/22/18 13:15 01/22/18 13:30 01/22/18 13:45 Temperature Pulse Rate 58 L 59 L 55 L Respiratory Rate 16 16 16 Blood Pressure 143/65 H 156/68 H 160/70 H Pulse Oximetry 96 97 97 01/22/18 14:00 01/22/18 14:15 01/22/18 14:30 Temperature Pulse Rate 55 L 56 L 55 L Respiratory Rate 16 16 16 Blood Pressure 142/67 H 141/65 H 139/60 Pulse Oximetry 97 97 97 01/22/18 14:45 01/22/18 15:00 01/22/18 15:15 Temperature Pulse Rate 54 L 50 L 56 L Respiratory Rate 16 16 16 Blood Pressure 156/66 H 152/68 H 159/75 H Pulse Oximetry 97 96 96 01/22/18 15:30 01/22/18 15:31 01/22/18 15:45 Temperature Pulse Rate 53 L 67 57 L Respiratory Rate 16 16 16 Blood Pressure 147/67 H 147/65 H Pulse Oximetry 96 96 96 01/22/18 16:00 01/22/18 16:15 01/22/18 16:30 Temperature 99 F Pulse Rate 58 L 59 L 61 Respiratory Rate 16 16 16 Blood Pressure 140/70 160/70 H 159/67 H Pulse Oximetry 96 97 97 01/22/18 16:39 01/22/18 16:40 01/22/18 16:42 Temperature Pulse Rate 58 L 77 93 H Respiratory Rate 16 19 25 H Blood Pressure 158/77 H 174/79 H 148/69 H Pulse Oximetry 97 96 97 01/22/18 16:44 01/22/18 16:46 01/22/18 16:48 Temperature Pulse Rate 93 H 90 89 Respiratory Rate 12 14 14 Blood Pressure 145/73 H 136/65 115/62 Pulse Oximetry 97 96 96 01/22/18 16:50 01/22/18 16:52 01/22/18 16:54 Temperature Pulse Rate 82 91 H 85 Respiratory Rate 8 L 16 15 Blood Pressure 103/55 L 97/56 L 93/55 L Pulse Oximetry 96 95 95 01/22/18 16:56 01/22/18 16:58 01/22/18 17:00 Temperature Pulse Rate 86 82 85 Respiratory Rate 16 16 16 Blood Pressure 83/51 L 76/49 L Pulse Oximetry 95 95 100 01/22/18 17:03 01/22/18 17:15 01/22/18 17:30 Temperature Pulse Rate 81 58 L 61 Respiratory Rate 16 16 16 Blood Pressure 94/51 L 168/79 H 188/74 H Pulse Oximetry 96 97 97 01/22/18 18:00 01/22/18 18:07 01/22/18 18:37 Temperature Pulse Rate 72 66 56 L Respiratory Rate 16 16 16 Blood Pressure 125/65 193/81 H Pulse Oximetry 96 97 97 01/22/18 19:00 01/22/18 19:08 01/22/18 19:30 Temperature Pulse Rate 61 70 62 Respiratory Rate 16 16 16 Blood Pressure 187/80 H 172/81 H Pulse Oximetry 96 96 96 01/22/18 20:00 01/22/18 20:04 01/22/18 21:00 Temperature 99.1 F Pulse Rate 65 63 69 Respiratory Rate 16 16 16 Blood Pressure 130/64 167/71 H Pulse Oximetry 96 96 95 Intake & Output 01/22/18 01/22/18 01/23/18 06:59 18:59 06:59 Intake Total 200 / 200 300 / 300 Output Total 2400 / 2400 2300 / 2300 Balance -2200 / -2200 -1999 / -1999 Weight 69.4 kg Intake: IV 200 / 200 300 / 300 Flexbumin 25% Inj 100 ML @ 60 100 / 100 mls/hr IV.SIG Q12H [facility] Rx#: [id number] Merrem Inj 1,000 MG In NS Inj 100 / 100 100 / 100 100 ML @ 200 mls/hr IV.SIG Q12H [facility] Rx#:[id number] KCl 20 mEq Premix Inj 20 meq In 200 / 200 100 ml @ 50 mls/hr IV.SIG Q2HR [facility] Rx#:[id number] Oral 0 / 0 Oral Supplement 0 / 0 Output: Urine/Stool Mix 0 / 0 Urine Amount (Catheter) 2400 / 2400 2300 / 2300 Indwelling Urethral Catheter 2400 / 2400 2300 / 2300 Wound Drainage 0 / 0 0 / 0 Left Shoulder 0 / 0 0 / 0 Other: Date of Last Bowel Movement 01/20/18 # Bowel Movements 0 Narrative: Patient intubated and on vent. Right shoulder dressing is intact with no drainage. Surgical incision is well approximated with sutures intact. Moderate to large effusion to right shoulder. Patient has 2+ radial and pedal pulses. Mild swelling to the the left shoulder. Extremities and skin are warm and dry. - Urinary Catheter Management Condom Cath placed during this visit: no Indwelling Urethral Catheter Cath placed during this visit: yes Reason for continuing: Hourly intake/output Insertion date: 01/20/18 Insertion time: 11:30 Results - Labs CBC & Chem 7: 01/22/18 05:00 01/22/18 05:00 Laboratory Results - last 24 hr 01/15/18 01/21/18 01/22/18 11:44 20:17 04:44 WBC RBC Hgb Hct MCV MCH MCHC RDW Plt Count MPV Neut % (Auto) Lymph % (Auto) [place] % (Auto) Eos % (Auto) Baso % (Auto) Neut # (Auto) Lymph # (Auto) [place] # (Auto) Eos # (Auto) Baso # (Auto) WBC Differential Differential Comment Puncture Site Cancelled Right brachial Patient Temperature Cancelled 98.6 O2 Saturation Cancelled 92 ABG pH Cancelled 7.48 H ABG pCO2 Cancelled 52 H* ABG pO2 Cancelled 73 ABG HCO3 Cancelled 38 H ABG O2 Content Cancelled 10.2 L ABG Base Excess Cancelled 13.2 H ABG Methemoglobin Cancelled 0.9 Blane Test Cancelled Hemoglobin Cancelled 7.8 L* Carboxyhemoglobin Cancelled 0.0 O2 Delivery Device Cancelled Bipap Liter Flow Cancelled Vent Setting Cancelled Ipap 15/epap 5 Inspired O2 Cancelled 60 Critical Value Cancelled Yes Sodium Potassium Chloride Carbon Dioxide Anion Gap BUN Creatinine Estimated GFR Random Glucose Lactic Acid Calcium Total Bilirubin AST ALT Alkaline Phosphatase Total Protein Albumin Albumin (PEP) 1.82 L Albumin/Globulin Ratio 0.73 L Aoacl-9-Eshnkmadh 0.31 H Nvtup-5-Cvjsgiytb 0.86 Beta Globulins 0.58 Gamma Globulins 0.74 PEP Pathologist Comment Random Vancomycin 01/22/18 01/22/18 01/22/18 05:00 05:00 05:00 WBC 9.0 RBC 2.96 L Hgb 7.9 L Hct 23.7 L MCV 79.8 L MCH 26.5 L MCHC 33.2 RDW 19.2 H Plt Count 168 MPV 8.2 Neut % (Auto) 94.2 H Lymph % (Auto) 4.4 L [place] % (Auto) 1.1 Eos % (Auto) 0.2 Baso % (Auto) 0.1 Neut # (Auto) 8.4 H Lymph # (Auto) 0.4 L [place] # (Auto) 0.1 Eos # (Auto) 0.0 Baso # (Auto) 0.0 WBC Differential . Differential Comment Auto diff final Puncture Site Patient Temperature O2 Saturation ABG pH ABG pCO2 ABG pO2 ABG HCO3 ABG O2 Content ABG Base Excess ABG Methemoglobin Blane Test Hemoglobin Carboxyhemoglobin O2 Delivery Device Liter Flow Vent Setting Inspired O2 Critical Value Sodium 144 Potassium 3.1 L Chloride 102 Carbon Dioxide 37.0 H Anion Gap 6 BUN 58 H Creatinine 1.71 H Estimated GFR 39 L Random Glucose 106 Lactic Acid 0.8 Calcium 8.2 L Total Bilirubin 0.8 AST 5 L ALT 15 Alkaline Phosphatase 75 Total Protein 5.7 L Albumin 2.8 L Albumin (PEP) Albumin/Globulin Ratio Ftshe-9-Ucgwzbqzf Vuhnk-0-Uqcyzawym Beta Globulins Gamma Globulins PEP Pathologist Comment Random Vancomycin 27.3 01/22/18 12:25 WBC RBC Hgb Hct MCV MCH MCHC RDW Plt Count MPV Neut % (Auto) Lymph % (Auto) [place] % (Auto) Eos % (Auto) Baso % (Auto) Neut # (Auto) Lymph # (Auto) [place] # (Auto) Eos # (Auto) Baso # (Auto) WBC Differential Differential Comment Puncture Site Right radial Patient Temperature 98.6 O2 Saturation 88 L* ABG pH 7.56 H* ABG pCO2 40 ABG pO2 54 L* ABG HCO3 36 H ABG O2 Content 9.6 L ABG Base Excess 12.0 H ABG Methemoglobin 0.8 Blane Test Present Hemoglobin 7.8 L* Carboxyhemoglobin 0.0 O2 Delivery Device Ventilator Liter Flow Vent Setting Prvc16/500/1.1/+10 Inspired O2 80 Critical Value Yes Sodium Potassium Chloride Carbon Dioxide Anion Gap BUN Creatinine Estimated GFR Random Glucose Lactic Acid Calcium Total Bilirubin AST ALT Alkaline Phosphatase Total Protein Albumin Albumin (PEP) Albumin/Globulin Ratio Scsei-2-Oizrcmplj Psrop-0-Doyqfrqjt Beta Globulins Gamma Globulins PEP Pathologist Comment Random Vancomycin Microbiology 01/20/18 17:19 Blood - Peripheral Aerobic Blood Culture - Preliminary No growth in 2 days 01/20/18 17:19 Blood - Peripheral Anaerobic Blood Culture - Preliminary gram positive cocci 01/15/18 18:25 Wound - Shoulder Fungal Smear - Final No fungal elements seen 01/15/18 18:25 Wound - Shoulder Fungal Culture - Preliminary No growth in 1 week 01/15/18 18:25 Wound - Shoulder Acid Fast Bacilli Smear - Final No acid fast bacilli seen 01/15/18 18:25 Wound - Shoulder Mycobacterial Culture - Preliminary No growth in 1 week 01/15/18 18:25 Wound - Shoulder Fungal Smear - Final No fungal elements seen 01/15/18 18:25 Wound - Shoulder Fungal Culture - Preliminary No growth in 1 week 01/15/18 18:25 Wound - Shoulder Acid Fast Bacilli Smear - Final No acid fast bacilli seen 01/15/18 18:25 Wound - Shoulder Mycobacterial Culture - Preliminary No growth in 1 week 01/20/18 17:14 Blood - Peripheral Aerobic Blood Culture - Preliminary No growth in 2 days 01/20/18 17:14 Blood - Peripheral Anaerobic Blood Culture - Preliminary No growth in 2 days 01/17/18 13:07 Blood - Peripheral Aerobic Blood Culture - Final No growth in 5 days 01/17/18 13:07 Blood - Peripheral Anaerobic Blood Culture - Final QNS - See aerobic report. 01/17/18 13:01 Blood - Peripheral Aerobic Blood Culture - Final No growth in 5 days 01/17/18 13:01 Blood - Peripheral Anaerobic Blood Culture - Final No growth in 5 days - Imaging Impressions Chest X-Ray 01/22/18 00:00 CONCLUSION: Satisfactory Central line placement. Bibasilar pleural-parenchymal opacities with worsening atelectasis in the right base. Chest X-Ray 01/22/18 06:00 CONCLUSION: Bibasilar airspace consolidation with small effusions. No pneumothorax. No significant change since January 21. Chest X-Ray 01/22/18 17:13 CONCLUSION: Improved right base aeration. No evidence of pneumothorax or other complication post bronchoscopy - Procedures Right shoulder consent for aspiration obtained. Time out performed. Right shoulder prepped sterilely with alcohol and betadine. Sterile gloves doned. Right shoulder aspirated and sent for gram stain, culture, crystals, and cell count. 30 cc of purulent drainage aspirated and sent to lab. sterile dressing applied. Patient tolerated procedure well. Assessment and Plan - Assessment and Plan Abscess right shoulder. 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 Surgery: I&D right shoulder, POD #7 PLAN: 1. IV antibiotics per infectious disease. Intraoperative cultures taken of the right shoulder are positive for MRSA. Recent cultures taken of the left supraclavicular joint also are positive for MRSA. 2. Source of sepsis still unclear. 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 Possible indolent infection that has developed an abscess of the right shoulder. We will defer to neurosurgery and other specialists for overall management. I have ordered MRIs of the left shoulder and pelvis to evaluate these areas for infection. Neurosurgery consulted and will evaluate spine for infection. I took time today to discuss this plan of care with the family at bedside. I was informed by family that they do not want any MRIs until the patient is more stable, this is currently still the case. The family understands the possibility for infection about the left shoulder, right SI joint, and cervical and lumbar spine. At this time we will follow the patient's family's wishes. MRIs will be obtained as soon as possible. The patient's family also understands there is still potential for further surgery to the right shoulder and knee surgeries involving the aforementioned areas. 3. Worsening respiratory status. Patient now on ISC, intubated, and sedated. Bronchoscope ordered for this afternoon to assess lungs and to obtain culture and gram stain. 4. Reaccumulation of fluid to right shoulder (moderate to large effusion). Order in place for interventional radiology to place drain at bedside as patient is to unstable for placement in specials. Awaiting placement until after bronchoscope. US taken of right shoulder for evaluation per primary RN. 5. Will continue to follow orthopedically.
[2018-01-23] MEDS: Oral Hygiene Kit OROPHARYNG SCH ×4 (01:34→17:00)
[2018-01-23] MEDS: fentaNYL 10 mcg/mL Premix Drip 2,500 MCG/250 ML BAG IV.SIG PRN (02:10)
[2018-01-23] MEDS: Albumin Human 25% Inj 100 ML IV.SIG SCH ×2 (04:58→09:14)
--- NOTE | 2018-01-23 05:10 | XR ---
EXAM DATE: 01/23/2018 4:48 AM EST AGE/SEX: 82 years / Male INDICATIONS: Shortness of breath. CLINICAL DATA: This is the patient's subsequent encounter. Patient reports that signs and symptoms h ave been present for 1 week and indicates a pain score of Nonresponsive. MEDICAL/SURGICAL HISTORY: Non-responsive. . Fusion, lumbar. COMPARISON: [facility], CHEST 1V SINGLE AP, 01/22/2018. . FINDINGS: Endotracheal tube in good position. NG enters stomach. Right central line in superior vena cava. Bila teral mostly basilar airspace disease and pleural effusions. No pneumothorax. Left-sided supraclavicu lar drain unchanged. CONCLUSION: Bilateral mostly basilar airspace disease and pleural effusions. No pneumothorax. Support apparatus i n good position. No significant change since prior exam. Electronically signed by: Albetro Richardson MD 01/23/2018 5:09 AM EST
[2018-01-23 05:18] LABS: Baso % (Auto) 0.3 % (0.0-2.0); Eos % (Auto) 0.2 % (0.0-4.0); Hematocrit 22.8 % (39.0-51.0); Hemoglobin 7.4 gm/dL (13.0-17.0); Lymph # (Auto) 0.4 th/mm3 (1.0-4.8); Lymph % (Auto) 6.2 % (9.0-44.0); Mean Corpuscular HGB Conc 32.5 % (32.0-36.0); Mean Corpuscular Hemoglobin 25.9 pg (27.0-34.0); Mean Corpuscular Volume 79.6 fL (80.0-100.0); Mean Platelet Volume 7.6 fL (7.0-11.0); Mono # (Auto) 0.2 th/mm3 (0.0-0.9); Mono % (Auto) 2.2 % (0.0-8.0); Neut # (Auto) 6.1 th/mm3 (1.8-7.7); Neut % (Auto) 91.1 % (16.0-70.0); Platelet Count 167 th/mm3 (150-450); Red Blood Count 2.86 mil/mm3 (4.50-5.90); Red Cell Distribution Width 19.6 % (11.6-17.2); White Blood Count 6.7 th/mm3 (4.0-11.0)
[2018-01-23] MEDS: hydrALAZINE HCl Inj 20 MG/ML Vial IV.PUSH PRN (05:18)
[2018-01-23 05:47] LABS: Calcium 8.5 mg/dL (8.5-10.1); Vancomycin,Random 22.8 Comment
[2018-01-23 05:51] LABS: Potassium 2.9 meq/L (3.5-5.1)
[2018-01-23] MEDS: Levothyroxine 100 MCG Tablet PO SCH (06:02)
[2018-01-23 06:06] LABS: ABG PCO2 36 mmHg (38-42); ABG PO2 388 mmHg (61-120)
[2018-01-23] MEDS ORDERED: Potassium Phosphate 500 MG Soluble Tablet PO PRN ×2 (06:54)
[2018-01-23] MEDS ORDERED: Sodium Phosphate Inj 30 MMOL in Sodium Chlor 0.9% Inj 250 ML IV.SIG PRN (06:54)
[2018-01-23] MEDS ORDERED: Magnesium Sulfate Inj 2 GM in Sodium Chlor 0.9% Inj 96 ML IV.SIG PRN (06:54)
[2018-01-23] MEDS ORDERED: Potassium Chloride 25 MEQ Effervescent Tablet PO PRN (06:54)
[2018-01-23] MEDS ORDERED: Magnesium Sulfate Inj 4 GM in Sodium Chlor 0.9% Inj 92 ML IV.SIG PRN (06:54)
[2018-01-23] MEDS ORDERED: Magnesium Oxide 400 MG Tablet PO PRN (06:54)
[2018-01-23] MEDS ORDERED: Potassium Phosphate Inj 30 MMOL in Sodium Chlor 0.9% Inj 250 ML IV.SIG PRN (06:54)
[2018-01-23] MEDS ORDERED: Potassium Chlor 40 mEq Premix 40 MEQ/100 ML PIGGYBACK IV.SIG PRN ×2 (06:54)
[2018-01-23] MEDS ORDERED: Potassium Chlor 20 mEq Premix 20 MEQ/100 ML PIGGYBACK IV.SIG PRN ×2 (06:54)
[2018-01-23] MEDS ORDERED: Sodium Chlor 0.9% Inj 250 ML IV.SIG SCH (07:00)
[2018-01-23 07:49] LABS: Lymphocytes 2 % (9-44); Myelocytes 1 % (0-0); Platelet Estimate Normal (Normal); Platelet Morphology Normal (Normal); Tallied Nucleated RBC 1 (0-0)
[2018-01-23] MEDS: Chlorhexidine 0.12% Oral Kit 15 ML UDC OROPHARYNG SCH ×2 (08:12→20:08)
[2018-01-23] MEDS: Potassium Chloride 25 MEQ Effervescent Tablet PO SCH ×2 (08:12→20:08)
--- NOTE | 2018-01-23 08:35 | US ---
EXAM DATE: 01/22/2018 3:44 PM EST AGE/SEX: 82 years / Male INDICATIONS: Right shoulder fluid collection/abscess. CLINICAL DATA: This is the patient's initial encounter. Patient reports that signs and symptoms have been present for 1 day and indicates a pain score of Nonresponsive. MEDICAL/SURGICAL HISTORY: Hypothyroidism. HTN. BPH. Atrial fibrillation. Depression. MRSA. Pept ic ulcer disease. . Neck surgery. Right shoulder I & D. COMPARISON: No prior exams available for comparison. FINDINGS: Ultrasound examination of the right shoulder demonstrates a complex lateral fluid collection approxim ately 2 cm between below the skin surface measuring 6.5 x 1.9 x 3.5 cm. CONCLUSION: 1. Lateral right shoulder subcutaneous complex fluid collection concerning for abscess. This is amen able to percutaneous drainage. Electronically signed by: Rebel Patterson MD 01/23/2018 8:34 AM EST
[2018-01-23] MEDS: Citalopram 20 MG Tablet PO SCH (09:14)
[2018-01-23] MEDS: Senna/Docusate Sodium 8.6/50 MG Tablet PO SCH ×2 (09:14→20:09)
[2018-01-23] MEDS: amLODIPine 5 MG Tablet PO SCH (09:15)
[2018-01-23] MEDS: Pantoprazole Sodium 20 MG DR Tablet PO SCH (09:15)
--- NOTE | 2018-01-23 10:05 | P.PNCC ---
Subjective Subjective Remarks/Hospital Course: This 82-year-old gentleman was transferred emergently from the floor to the surgical intensive care unit because of rapid onset combined hypoxemic and hypercapnic respiratory failure. On arrival he has diffuse crackles throughout both lung santizo and his neck veins are distended. On admission several days ago he was dehydrated and had an element of acute kidney injury. His weight is up about 5 kg since admission though his renal function has improved. On arrival he is breathing 40 times a minute on a nonrebreathing mask with pH of 7.18 and P CO2 of 74. His acidosis is purely respiratory and associated with bronchospasm from fluid overload. B natruretic peptide is elevated to greater than 2000. Other pertinent major problems include septic joint drainage and treatment. 01/22: Critical care reconsulted for worsening resp status. On BIPAP with fulkl face mask. CXR with bilat infiltrates/ pulm edema. Reaccumulated rt shoulder collection. After d/w family proceeded with intubation and placed patient on [facility] ventilation. Placed central line. D/W Dr. Mani Sherman who is arranging US guided drainage/ drain placement for shoulder collection. 01/23: Remains sedated, orally intubated on mechanical ventilation. Significant diuresis with 11 L negative over the last 3 days. Awaiting left shoulder percutaneous drainage of collection by interventional radiology today. 1 unit PRBCs ordered as patient has borderline blood pressures with hemoglobin less than 8. Objective Vital Signs / I&O: Vital Signs 01/22/18 09:45 01/22/18 10:00 01/22/18 11:49 Temperature Pulse Rate 62 62 Respiratory Rate 25 H 23 Blood Pressure 184/85 H Pulse Oximetry 94 L 01/22/18 11:51 01/22/18 11:52 01/22/18 11:53 Temperature Pulse Rate 61 89 Respiratory Rate 16 16 29 H Blood Pressure 170/111 H 194/91 H Pulse Oximetry 96 97 95 01/22/18 11:55 01/22/18 11:57 01/22/18 11:59 Temperature Pulse Rate 65 61 82 Respiratory Rate 16 16 19 Blood Pressure 196/91 H 190/86 H 174/79 H Pulse Oximetry 95 94 L 94 L 01/22/18 12:00 01/22/18 12:01 01/22/18 12:03 Temperature Pulse Rate 63 64 81 Respiratory Rate 16 16 16 Blood Pressure 160/75 H 155/74 H Pulse Oximetry 94 L 93 L 93 L 01/22/18 12:05 01/22/18 12:07 01/22/18 12:09 Temperature Pulse Rate 73 73 73 Respiratory Rate 16 16 16 Blood Pressure 138/67 127/60 120/59 L Pulse Oximetry 94 L 93 L 92 L 01/22/18 12:11 01/22/18 12:13 01/22/18 12:15 Temperature Pulse Rate 79 71 72 Respiratory Rate 16 16 16 Blood Pressure 118/59 L 118/58 L 121/57 L Pulse Oximetry 92 L 92 L 93 L 01/22/18 12:30 01/22/18 12:45 01/22/18 13:00 Temperature Pulse Rate 90 65 58 L Respiratory Rate 16 16 16 Blood Pressure 112/55 L 111/55 L 125/58 L Pulse Oximetry 91 L 95 96 01/22/18 13:15 01/22/18 13:30 01/22/18 13:45 Temperature Pulse Rate 58 L 59 L 55 L Respiratory Rate 16 16 16 Blood Pressure 143/65 H 156/68 H 160/70 H Pulse Oximetry 96 97 97 01/22/18 14:00 01/22/18 14:15 01/22/18 14:30 Temperature Pulse Rate 55 L 56 L 55 L Respiratory Rate 16 16 16 Blood Pressure 142/67 H 141/65 H 139/60 Pulse Oximetry 97 97 97 01/22/18 14:45 01/22/18 15:00 01/22/18 15:15 Temperature Pulse Rate 54 L 50 L 56 L Respiratory Rate 16 16 16 Blood Pressure 156/66 H 152/68 H 159/75 H Pulse Oximetry 97 96 96 01/22/18 15:30 01/22/18 15:31 01/22/18 15:45 Temperature Pulse Rate 53 L 67 57 L Respiratory Rate 16 16 16 Blood Pressure 147/67 H 147/65 H Pulse Oximetry 96 96 96 01/22/18 16:00 01/22/18 16:15 01/22/18 16:30 Temperature 99 F Pulse Rate 58 L 59 L 61 Respiratory Rate 16 16 16 Blood Pressure 140/70 160/70 H 159/67 H Pulse Oximetry 96 97 97 01/22/18 16:39 01/22/18 16:40 01/22/18 16:42 Temperature Pulse Rate 58 L 77 93 H Respiratory Rate 16 19 25 H Blood Pressure 158/77 H 174/79 H 148/69 H Pulse Oximetry 97 96 97 01/22/18 16:44 01/22/18 16:46 01/22/18 16:48 Temperature Pulse Rate 93 H 90 89 Respiratory Rate 12 14 14 Blood Pressure 145/73 H 136/65 115/62 Pulse Oximetry 97 96 96 01/22/18 16:50 01/22/18 16:52 01/22/18 16:54 Temperature Pulse Rate 82 91 H 85 Respiratory Rate 8 L 16 15 Blood Pressure 103/55 L 97/56 L 93/55 L Pulse Oximetry 96 95 95 01/22/18 16:56 01/22/18 16:58 01/22/18 17:00 Temperature Pulse Rate 86 82 85 Respiratory Rate 16 16 16 Blood Pressure 83/51 L 76/49 L Pulse Oximetry 95 95 100 01/22/18 17:03 01/22/18 17:15 01/22/18 17:30 Temperature Pulse Rate 81 58 L 61 Respiratory Rate 16 16 16 Blood Pressure 94/51 L 168/79 H 188/74 H Pulse Oximetry 96 97 97 01/22/18 18:00 01/22/18 18:07 01/22/18 18:37 Temperature Pulse Rate 72 66 56 L Respiratory Rate 16 16 16 Blood Pressure 125/65 193/81 H Pulse Oximetry 96 97 97 01/22/18 19:00 01/22/18 19:08 01/22/18 19:30 Temperature Pulse Rate 61 70 62 Respiratory Rate 16 16 16 Blood Pressure 187/80 H 172/81 H Pulse Oximetry 96 96 96 01/22/18 20:00 01/22/18 20:04 01/22/18 21:00 Temperature 99.1 F Pulse Rate 65 63 69 Respiratory Rate 16 16 16 Blood Pressure 130/64 167/71 H Pulse Oximetry 96 96 95 01/22/18 22:00 01/22/18 23:00 01/22/18 23:38 Temperature Pulse Rate 71 73 Respiratory Rate 16 16 16 Blood Pressure 125/76 154/72 H Pulse Oximetry 96 96 95 01/22/18 23:41 01/23/18 00:00 01/23/18 01:00 Temperature 99.0 F Pulse Rate 62 74 77 Respiratory Rate 16 16 16 Blood Pressure 119/65 127/67 Pulse Oximetry 95 95 01/23/18 02:00 01/23/18 02:40 01/23/18 03:00 Temperature Pulse Rate 77 71 Respiratory Rate 16 16 16 Blood Pressure 117/65 140/66 Pulse Oximetry 95 96 01/23/18 04:00 01/23/18 04:04 01/23/18 05:00 Temperature 99.3 F Pulse Rate 75 55 L Respiratory Rate 16 16 16 Blood Pressure 102/62 179/80 H Pulse Oximetry 95 95 97 01/23/18 05:08 01/23/18 05:15 01/23/18 05:30 Temperature Pulse Rate 56 L 63 75 Respiratory Rate 16 16 16 Blood Pressure 178/79 H 174/74 H 133/63 Pulse Oximetry 97 97 97 01/23/18 06:00 01/23/18 06:13 01/23/18 08:02 Temperature Pulse Rate 82 83 Respiratory Rate 16 16 12 Blood Pressure 113/58 L Pulse Oximetry 97 96 94 L Intake & Output 01/22/18 01/23/18 01/23/18 18:59 06:59 18:59 Intake Total 300 / 300 860 / 860 Output Total 2300 / 2300 1974 Balance -1999 / -1999 -1115 / -1115 Weight 59.5 kg Intake: IV 300 / 300 650 / 650 Diprivan 1000 mg/100 ml Inj 1, 100 / 100 000 mg In 100 ml @ 5 MCG/KG/MIN 2.082 mls/hr IV.CONT TITRATE PRN Rx#:[id number] Flexbumin 25% Inj 100 ML @ 60 200 / 200 mls/hr IV.SIG Q12H CHAYO Rx#: [id number] Merrem Inj 1,000 MG In NS Inj 100 / 100 100 / 100 100 ML @ 200 mls/hr IV.SIG Q12H CHAYO Rx#:[id number] KCl 20 mEq Premix Inj 20 meq In 200 / 200 100 ml @ 50 mls/hr IV.SIG Q2HR CHAYO Rx#:[id number] fentaNYL 10 mcg/mL Premix Drip 250 / 250 2,500 mcg In 250 ml @ 50 MCG/HR 5 mls/hr IV.SIG TITRATE PRN Rx #:[id number] Tube Feeding 90 / 90 Tube Irrigant 120 / 120 Output: Urine/Stool Mix 0 / 0 Urine Amount (Catheter) 2300 / 2300 1974 Indwelling Urethral Catheter 2299 Wound Drainage 0 / 0 0 / 0 Left Shoulder 0 / 0 0 / 0 Result Diagrams: 01/23/18 05:00 01/23/18 05:00 Imaging: Impressions Shoulder X-Ray 01/21/18 00:00 CONCLUSION: Unusual positioning of the shoulder but I do not see any obvious displaced fracture of the shoulder. There is a healing third rib fracture and healing seventh rib fracture. Chest X-Ray 01/22/18 00:00 CONCLUSION: Satisfactory Central line placement. Bibasilar pleural-parenchymal opacities with worsening atelectasis in the right base. Upper Extremity Ultrasound 01/22/18 00:00 CONCLUSION: 1. Lateral right shoulder subcutaneous complex fluid collection concerning for abscess. This is amenable to percutaneous drainage. Chest X-Ray 01/22/18 06:00 CONCLUSION: Bibasilar airspace consolidation with small effusions. No pneumothorax. No significant change since January 21. Chest X-Ray 01/22/18 17:13 CONCLUSION: Improved right base aeration. No evidence of pneumothorax or other complication post bronchoscopy Chest X-Ray 01/23/18 05:00 CONCLUSION: Bilateral mostly basilar airspace disease and pleural effusions. No pneumothorax. Support apparatus in good position. No significant change since prior exam. Objective Remarks: sedated, orally intubated on mech ventilation. HEENT/ Neuro: Sedated, orally intubated, arousable, pallor present. Neck: No JVD Chest/pulm: on mech vent, air entry decreased at bases, bilat rhonchi, no wheezing. CVS: S1S2 regular Abd: Soft, nontender, BS present Ext: warm bilaterally Assessment and Plan - Assessment and Plan Plan: Assessment and Plan: Acute combined hypercapnic and hypoxemic respiratory failure Fluid overload/noncardiogenic Pulmonary edema secondary to sepsis Possible pneumonia Mucus plugging -BNP greater than 2000 -Bronchodilators -diuresed to mobilize fluid -Scott required for BPH as well as diuresis -intubated and placed on mech ventilation on 01/22. -Status post bronchoscopy with BAL on 01/22 with significant mucus plugging noted in the right-sided airways including right mainstem bronchus for which BAL was performed with significant clearing of airway. Bronchial washing sent for Gram stain and cultures. Follow-up chest x-ray post bronchoscopy showed significant improvement in aeration of right lung. -Continue mechanical ventilation, vent bundle. Added Mucomyst to mobilize secretions. MRSA septicemia, septic right shoulder, L spine diskitis, left supraclavicular abscess sepsis Right shoulder effusion. septic right shoulder, s/p I&D Urinary tract infection. Left Supraclavicular abscess, CT reviewed, showed abscess extending to posterior thorax Diskitis MR L spine with poss diskitis/ osteomyelitis On chronic ( ~50 days) of steroid use. Taper steroid Blood cultures positive for MRSA. 2D echocardiogram did not show any findings consistent with vegetations. Continue vancomycin, Levaquin, meropenem per ID. Patient also had a right shoulder effusion, orthopedics aspirated the shoulder - approximately 30 cc of purulent fluid. had follow-up with orthopedics for their recommendations drainage of that right shoulder. Continue IV antibiotics per infectious disease recommendations. Infectious disease following repeat blood cultures ntd Cardiothoracic surgeon was consulted for evaluation of supraclavicular mass/ poss abscess NM WBC scan 01/18/18 and 01/19/18. Patient received ativan as not able to tolerate CT imaging he was noted agitated in CT and imaging needed to be repeat. Imaging discussed with radiology Dr and it seems patient with multiple focal infections bilateral shoulders, also back at the hardware with diskitis/ osteomyelitis. Neurology, ID, hem onc ff. CTS consulted no surgical intervention required at this time. IR consulted s/p CT-guided drainage of left posterior supraclavicular/posterior chest wall abscess on 01/17/18. US guided drainage of shoulder collection by IR planned for 01/23 KEKE on CKD. Being diuresed, Strict I/O, monitor/ replete electrolytes, follow BUN/ Cr Decreased IV Albumin/ Lasix to once a day on 01/23. Diamox for metabolic alkalosis Nephrology following appreciate recs CVS Atrial Fibrillation, permanent Noncardiogenic pulmonary edema Hypotension Rate well controlled. Recent ECHO EF 65% Dr. Garner following-discussed with Dr. Garner on 01/22. We agreed with diuresing patient for noncardiogenic pulmonary edema while watching renal function/ BP. Hold antihypertensives. On 01/23 ordered Levophed for pressor support to keep MAP greater than 65mm Hg May need to hold off on further diuresis if remains on levophed. Anemia 1 unit PRBCs ordered to be transfused on 01/23 to keep hemoglobin above 8 g%. No overt evidence of blood loss. Follow CBC. Protein calorie malnutrition -Inserted NGT 01/22 following intubation, Continue tube feeds and advance to goal as tolerated. BPH - Continue Flomax. DVT prophylaxis per surgeon Access: RIJ central line placed 01/22 01/22: D/w Dr. Mani Sherman, D/W COMPUTER ARTIST, D/W patient's family at bedside. 01/23 D/W patient's daughter at bedside regarding current clinical status and plan of care and they voiced understanding and were agreeable with plan of care. D/W ID-Dr Tom on 01/23. Critical care time 45 minutes aside from procedures.
--- NOTE | 2018-01-23 11:03 | P.DIET ---
Nutritional Evaluation Type of nutrition evaluation: follow-up Nutrition consult regarding: Tube Feeding Nutrition screening: [facility] [place] Screening comments: 01/18 Malnutrition 01/23 New TF Subjective Subjective Comments: From previous note dated 01/19: Pt's family reports pt is eating very little, he takes a few bites then is full. State they feed him and they will give him the Nepro. Objective - Diagnosis AMS, UTI, A-fib - Objective % IBW: 88 (IBW = 148#) Body Weight Used for Calculations: Actual (59.5) Energy Needs - Lower Range (kCal/kg): 28 Energy Needs - Upper Range (kCal/kg): 32 Lower Limit kCal/kg (kCals): 1,666 Upper Limit kCal/kg (kCals): 1,904 Lower Limit Protein Factor (Grams per Kg): 1.0 Upper Limit Protein Factor (Grams per Kg): 1.5 Lower Protein Needs (Protein): 60 Upper Protein Needs (Protein): 89 Dietitian Reviewed in Medical Record: Curent medications, Intake & Output, Labs , Medical history, Tube feeding Diet Order: NPO Objective Comments: PMH: HTN, GERD, PUD, Hypothyroidism, Afib Labs include: Na 146, K 2.9, BUN/creat 58/1.84, Est GFR 36, glu 125 Meds include: Synthroid Assessment Assessment: Pt with change in status and was intubated 01/22. He now needs TFing to meet nutritional needs. Agree with current order for Jevity 1.5 with a goal rate of 60 mls/hr. TF will run for 22 hours d/t synthorid. TF must be held one hour before and after synthroid is given. Jevity 1.5 @ 60 mls/hr x 22 hours will provide 1980 kcals, 84 gms protein and 1003 mls of free water. Currently receiving no propofol. Recommendations: Jevity 1.5 @ 60 mls/hr x 22 hours Dietitian to Monitor: Lab values, Intake & Output, Tube feeding tolerance, Weight change, Medical course
--- NOTE | 2018-01-23 13:05 | P.PNID ---
Subjective Remarks: pt is now extubated doing ok but RN report BP going down occasionally No fever More + nblood clx creatinine high Antibiotics: vanco levaquin meropem Lines: Line sites with no e.o infection Past Medical History: reviewed Allergies/Adverse Reactions: Allergies amoxicillin Allergy (Severe, Verified 01/13/18 20:44) Hives Objective Vital Signs 01/22/18 13:00 01/22/18 13:15 01/22/18 13:30 Temperature Pulse Rate 58 L 58 L 59 L Respiratory Rate 16 16 16 Blood Pressure 125/58 L 143/65 H 156/68 H Pulse Oximetry 96 96 97 01/22/18 13:45 01/22/18 14:00 01/22/18 14:15 Temperature Pulse Rate 55 L 55 L 56 L Respiratory Rate 16 16 16 Blood Pressure 160/70 H 142/67 H 141/65 H Pulse Oximetry 97 97 97 01/22/18 14:30 01/22/18 14:45 01/22/18 15:00 Temperature Pulse Rate 55 L 54 L 50 L Respiratory Rate 16 16 16 Blood Pressure 139/60 156/66 H 152/68 H Pulse Oximetry 97 97 96 01/22/18 15:15 01/22/18 15:30 01/22/18 15:31 Temperature Pulse Rate 56 L 53 L 67 Respiratory Rate 16 16 16 Blood Pressure 159/75 H 147/67 H Pulse Oximetry 96 96 96 01/22/18 15:45 01/22/18 16:00 01/22/18 16:15 Temperature 99 F Pulse Rate 57 L 58 L 59 L Respiratory Rate 16 16 16 Blood Pressure 147/65 H 140/70 160/70 H Pulse Oximetry 96 96 97 01/22/18 16:30 01/22/18 16:39 01/22/18 16:40 Temperature Pulse Rate 61 58 L 77 Respiratory Rate 16 16 19 Blood Pressure 159/67 H 158/77 H 174/79 H Pulse Oximetry 97 97 96 01/22/18 16:42 01/22/18 16:44 01/22/18 16:46 Temperature Pulse Rate 93 H 93 H 90 Respiratory Rate 25 H 12 14 Blood Pressure 148/69 H 145/73 H 136/65 Pulse Oximetry 97 97 96 01/22/18 16:48 01/22/18 16:50 01/22/18 16:52 Temperature Pulse Rate 89 82 91 H Respiratory Rate 14 8 L 16 Blood Pressure 115/62 103/55 L 97/56 L Pulse Oximetry 96 96 95 01/22/18 16:54 01/22/18 16:56 01/22/18 16:58 Temperature Pulse Rate 85 86 82 Respiratory Rate 15 16 16 Blood Pressure 93/55 L 83/51 L 76/49 L Pulse Oximetry 95 95 95 01/22/18 17:00 01/22/18 17:03 01/22/18 17:15 Temperature Pulse Rate 85 81 58 L Respiratory Rate 16 16 16 Blood Pressure 94/51 L 168/79 H Pulse Oximetry 100 96 97 01/22/18 17:30 01/22/18 18:00 01/22/18 18:07 Temperature Pulse Rate 61 72 66 Respiratory Rate 16 16 16 Blood Pressure 188/74 H 125/65 Pulse Oximetry 97 96 97 01/22/18 18:37 01/22/18 19:00 01/22/18 19:08 Temperature Pulse Rate 56 L 61 70 Respiratory Rate 16 16 16 Blood Pressure 193/81 H 187/80 H Pulse Oximetry 97 96 96 01/22/18 19:30 01/22/18 20:00 01/22/18 20:04 Temperature 99.1 F Pulse Rate 62 65 63 Respiratory Rate 16 16 16 Blood Pressure 172/81 H 130/64 Pulse Oximetry 96 96 96 01/22/18 21:00 01/22/18 22:00 01/22/18 23:00 Temperature Pulse Rate 69 71 73 Respiratory Rate 16 16 16 Blood Pressure 167/71 H 125/76 154/72 H Pulse Oximetry 95 96 96 01/22/18 23:38 01/22/18 23:41 01/23/18 00:00 Temperature 99.0 F Pulse Rate 62 74 Respiratory Rate 16 16 16 Blood Pressure 119/65 Pulse Oximetry 95 95 01/23/18 01:00 01/23/18 02:00 01/23/18 02:40 Temperature Pulse Rate 77 77 Respiratory Rate 16 16 16 Blood Pressure 127/67 117/65 Pulse Oximetry 95 95 01/23/18 03:00 01/23/18 04:00 01/23/18 04:04 Temperature 99.3 F Pulse Rate 71 75 Respiratory Rate 16 16 16 Blood Pressure 140/66 102/62 Pulse Oximetry 96 95 95 01/23/18 05:00 01/23/18 05:08 01/23/18 05:15 Temperature Pulse Rate 55 L 56 L 63 Respiratory Rate 16 16 16 Blood Pressure 179/80 H 178/79 H 174/74 H Pulse Oximetry 97 97 97 01/23/18 05:30 01/23/18 06:00 01/23/18 06:13 Temperature Pulse Rate 75 82 83 Respiratory Rate 16 16 16 Blood Pressure 133/63 113/58 L Pulse Oximetry 97 97 96 01/23/18 07:00 01/23/18 07:31 01/23/18 08:00 Temperature 97.8 F Pulse Rate 77 77 73 Respiratory Rate 12 12 12 Blood Pressure 81/50 L 88/54 L 98/54 L Pulse Oximetry 91 L 93 L 94 L 01/23/18 08:02 01/23/18 08:15 01/23/18 08:30 Temperature Pulse Rate Respiratory Rate 12 Blood Pressure 106/55 L 97/53 L Pulse Oximetry 94 L 01/23/18 08:45 01/23/18 09:00 01/23/18 09:15 Temperature Pulse Rate 81 78 Respiratory Rate 12 Blood Pressure 91/54 L 93/50 L 75/50 L Pulse Oximetry 94 L 94 L 01/23/18 09:30 01/23/18 09:45 01/23/18 09:53 Temperature 99 F Pulse Rate 77 79 Respiratory Rate 12 12 Blood Pressure 78/50 L 87/55 L 87/55 L Pulse Oximetry 94 L 94 L 01/23/18 10:00 01/23/18 10:15 01/23/18 10:17 Temperature 99 F 99 F Pulse Rate 80 67 77 Respiratory Rate 12 12 12 Blood Pressure 98/55 L 98/56 L 87/55 L Pulse Oximetry 88 L 93 L 01/23/18 10:30 01/23/18 10:45 01/23/18 11:00 Temperature Pulse Rate 70 71 71 Respiratory Rate 12 12 12 Blood Pressure 114/62 102/58 L 119/58 L Pulse Oximetry 94 L 92 L 94 L 01/23/18 11:30 01/23/18 11:44 01/23/18 12:00 Temperature 99 F Pulse Rate 72 72 Respiratory Rate 12 12 12 Blood Pressure 127/61 129/74 Pulse Oximetry 96 96 96 Intake & Output 01/22/18 01/23/18 01/23/18 18:59 06:59 18:59 Intake Total 300 / 300 860 / 860 600 / 600 Output Total 2300 / 2300 1974 Balance -1999 / -1999 -1115 / -1115 600 / 600 Weight 59.5 kg Intake: IV 300 / 300 650 / 650 200 / 200 Diprivan 1000 mg/100 ml Inj 1, 100 / 100 000 mg In 100 ml @ 5 MCG/KG/MIN 2.082 mls/hr IV.CONT TITRATE PRN Rx#:[id number] Flexbumin 25% Inj 100 ML @ 60 200 / 200 100 / 100 mls/hr IV.SIG DAILY [facility]O Rx#: [id number] Merrem Inj 1,000 MG In NS Inj 100 / 100 100 / 100 100 ML @ 200 mls/hr IV.SIG Q12H [facility] Rx#:[id number] KCl 20 mEq Premix Inj 20 meq In 200 / 200 100 ml @ 50 mls/hr IV.SIG Q2HR [facility]O Rx#:[id number] KCl 40 mEq Premix Inj 40 meq In 100 / 100 100 ml @ 25 mls/hr IV.SIG Q2H PRN Rx#:[id number] fentaNYL 10 mcg/mL Premix Drip 250 / 250 2,500 mcg In 250 ml @ 50 MCG/HR 5 mls/hr IV.SIG TITRATE PRN Rx #:[id number] Tube Feeding 90 / 90 Tube Irrigant 120 / 120 Intake (Blood Product) Amt 400 / 400 Rbc As-3 Leukoreduced Unit 400 / 400 [id number] Output: Urine/Stool Mix 0 / 0 Urine Amount (Catheter) 2299 / 0 1974 Indwelling Urethral Catheter 2299 Wound Drainage 0 / 0 0 / 0 Left Shoulder 0 / 0 0 / 0 01/22/18 12:25 Sputum - Endotracheal Gram Stain - Final 01/22/18 12:25 Sputum - Endotracheal Sputum Culture - Pending 01/22/18 17:00 Bronchial - Right Gram Stain - Final 01/22/18 17:00 Bronchial - Right Bronchial Culture - Pending 01/20/18 17:19 Blood - Peripheral Aerobic Blood Culture - Preliminary No growth in 3 days 01/20/18 17:19 Blood - Peripheral Anaerobic Blood Culture - Final S. aureus MRSA 01/20/18 17:14 Blood - Peripheral Aerobic Blood Culture - Preliminary No growth in 3 days 01/20/18 17:14 Blood - Peripheral Anaerobic Blood Culture - Preliminary No growth in 3 days 01/15/18 18:25 Wound - Shoulder Fungal Smear - Final No fungal elements seen 01/15/18 18:25 Wound - Shoulder Fungal Culture - Preliminary No growth in 1 week 01/15/18 18:25 Wound - Shoulder Acid Fast Bacilli Smear - Final No acid fast bacilli seen 01/15/18 18:25 Wound - Shoulder Mycobacterial Culture - Preliminary No growth in 1 week 01/15/18 18:25 Wound - Shoulder Fungal Smear - Final No fungal elements seen 01/15/18 18:25 Wound - Shoulder Fungal Culture - Preliminary No growth in 1 week 01/15/18 18:25 Wound - Shoulder Acid Fast Bacilli Smear - Final No acid fast bacilli seen 01/15/18 18:25 Wound - Shoulder Mycobacterial Culture - Preliminary No growth in 1 week 01/17/18 13:07 Blood - Peripheral Aerobic Blood Culture - Final No growth in 5 days 01/17/18 13:07 Blood - Peripheral Anaerobic Blood Culture - Final QNS - See aerobic report. 01/17/18 13:01 Blood - Peripheral Aerobic Blood Culture - Final No growth in 5 days 01/17/18 13:01 Blood - Peripheral Anaerobic Blood Culture - Final No growth in 5 days 01/17/18 18:56 Fluid - Other Fungal Smear - Final No fungal elements seen 01/17/18 18:56 Fluid - Other Fungal Culture - Preliminary 01/17/18 18:56 Fluid - Other Acid Fast Bacilli Smear - Final No acid fast bacilli seen 01/17/18 18:56 Fluid - Other Mycobacterial Culture - Pending Lab - Hematology Results 01/22/18 01/23/18 05:00 05:00 WBC 9.0 6.7 RBC 2.96 L 2.86 L Hgb 7.9 L 7.4 L Hct 23.7 L 22.8 L MCV 79.8 L 79.6 L MCH 26.5 L 25.9 L MCHC 33.2 32.5 RDW 19.2 H 19.6 H Plt Count 168 167 MPV 8.2 7.6 Prelim Diff (Auto) Slide review pending Neut % (Auto) 94.2 H 91.1 H Lymph % (Auto) 4.4 L 6.2 L Butts % (Auto) 1.1 2.2 Eos % (Auto) 0.2 0.2 Baso % (Auto) 0.1 0.3 Neut # (Auto) 8.4 H 6.1 Lymph # (Auto) 0.4 L 0.4 L Butts # (Auto) 0.1 0.2 Eos # (Auto) 0.0 0.0 Baso # (Auto) 0.0 0.0 WBC Differential . Manual diff final Seg Neuts % (Manual) 78 H Band Neuts % (Manual) 19 H Lymphocytes % (Manual) 2 L Myelocytes % (Man) 1 H Abs Neuts (Manual) 6.6 Nucleated RBCs/100 WBC 1 H Differential Comment Auto diff final . Platelet Estimate Normal Platelet Morphology Normal Lab - Chemistry Results 01/15/18 01/22/18 01/22/18 11:44 05:00 05:00 Sodium 144 Potassium 3.1 L Chloride 102 Carbon Dioxide 37.0 H Anion Gap 6 BUN 58 H Creatinine 1.71 H Estimated GFR 39 L Random Glucose 106 Lactic Acid 0.8 Calcium 8.2 L Total Bilirubin 0.8 AST 5 L ALT 15 Alkaline Phosphatase 75 Total Protein 5.7 L Albumin 2.8 L Albumin (PEP) 1.82 L Albumin/Globulin Ratio 0.73 L Iswle-3-Tyixeuhcj 0.31 H Hueid-9-Xrchflcqk 0.86 Beta Globulins 0.58 Gamma Globulins 0.74 PEP Pathologist Comment 01/23/18 05:00 Sodium 146 H Potassium 2.9 L* Chloride 102 Carbon Dioxide 36.0 H Anion Gap 8 BUN 58 H Creatinine 1.84 H Estimated GFR 36 L Random Glucose 125 H Lactic Acid Calcium 8.5 Total Bilirubin AST ALT Alkaline Phosphatase Total Protein Albumin Albumin (PEP) Albumin/Globulin Ratio Zldvd-3-Czkcbgjqw Glcuk-7-Efuceoxrs Beta Globulins Gamma Globulins PEP Pathologist Comment Imaging: ITS Impressions Abdomen/Pelvis CT 01/13/18 20:43 CONCLUSION: 1. Marked prostate enlargement. 2. Air-filled distention of sigmoid colon. 3. Cardiomegaly. Small bilateral pleural effusions. 4. Diffuse atherosclerotic disease and arterial calcification. 5. Old insufficiency type fractures of the left side of the sacrum and left- sided pubic rami. Cervical Spine MRI 01/14/18 00:00 CONCLUSION: 1. Examination is degraded by motion artifact. 2. Partial visualization of a mass involving the left supraclavicular region measuring 5.[address] scan of the soft tissues of the neck with IV contrast to further assess if the patient can't hold still for that exam. 3. Diffuse degenerative changes as detailed at each level in the above discussion. Head MRI 01/14/18 00:00 CONCLUSION: 1. No acute intracranial abnormality. 2. Encephalomalacia involving the left frontal lobe. Lumbar Spine MRI 01/14/18 00:00 CONCLUSION: 1. Posterior fusion from L1 to L5. This in combination with motion artifact degrades the study. 2. Central canal appears patent throughout its visualized extent. 3. Old T12 compression deformity. Shoulder MRI 01/14/18 00:00 CONCLUSION: 1. Large full-thickness chronic appearing rotator cuff tear as described. 2. Joint effusion which communicates with large periarticular fluid collections characteristic of periarticular ganglions and bursal fluid collections. Internal debris is identified within the fluid collections. 3. Denervation versus disuse atrophy of the periarticular musculature. 4. Glenohumeral subluxation characteristic of chronic rotator cuff tear. 5. Moderate arthropathy of the glenohumeral joint with remodeling, hyaline cartilage thinning and marginal spurring. 6. Advanced acromioclavicular degenerative disease with periarticular ganglion. 7. Torn biceps tendon. 8. A cortical cyst formation seen in the superolateral humeral head. 9. Periarticular loose bodies within the fluid collections. Sign Thoracic Spine MRI 01/14/18 00:00 CONCLUSION: 1. See the MRI of the cervical spine reported separately. 2. Orthopedic hardware at the thoracolumbar junction. 3. Patent central canal throughout. Head CT 01/14/18 00:31 CONCLUSION: 1. No acute intracranial findings. 2. 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 . Venous Doppler Study 01/14/18 09:20 CONCLUSION: 1. The study is negative for lower extremity deep venous thrombosis. Soft Tissue Neck CT 01/16/18 00:00 CONCLUSION: 1. Partially visualized fluid and gas collection deep to the left trapezius muscle in the posterior lower neck extending into the posterior thorax. Chest CT with contrast could be performed to image the remainder of the abnormality. Differential diagnosis includes abscess and hematoma. 2. Degenerative findings of the cervical spine. Chest CT 01/16/18 11:15 CONCLUSION: 1. Lobulated mass in the left supraclavicular region. It is most suggestive of a multi lobulated loculated abscess given the air within several of the masses. 2. Bibasilar areas of consolidation or atelectasis. There are mild bilateral pleural effusion. 3. There is a drain over the right shoulder region. 4. Postsurgical change at the thoracolumbar region as described above. Abscess Drainage CT 01/17/18 00:00 CONCLUSION: 1. Uncomplicated CT guided drainage, as above. WBC Scan Nuclear Medicine 01/18/18 00:00 CONCLUSION: 1. Multiple areas of abnormal uptake including at the upper lumbar spine around the upper left surgical hardware and at the L1-2 disc level. 2. Abnormal activity around the clip joints bilaterally being more prominent on the right. 3. Abnormal activity in the right C2-3 facet and the left C7-T1 facet. 4. Small area of signal abnormality in the posterior right sacroiliac joint region separate from surgical hardware. 5. All these areas are concerning for active infection. Shoulder X-Ray 01/21/18 00:00 CONCLUSION: Unusual positioning of the shoulder but I do not see any obvious displaced fracture of the shoulder. There is a healing third rib fracture and healing seventh rib fracture. Upper Extremity Ultrasound 01/22/18 00:00 CONCLUSION: 1. Lateral right shoulder subcutaneous complex fluid collection concerning for abscess. This is amenable to percutaneous drainage. Chest X-Ray 01/23/18 05:00 CONCLUSION: Bilateral mostly basilar airspace disease and pleural effusions. No pneumothorax. Support apparatus in good position. No significant change since prior exam. Physical Exam: GENERAL:on vent sedated SKIN: Warm and dry. No rash HEAD: Atraumatic. Normocephalic. EYES: Pupils equal and round. No scleral icterus. No injection or drainage. ENT: No nasal bleeding or discharge. Mucous membranes pink and moist. NECK: Trachea midline. No JVD. No palpable masses, but diffuse pain CARDIOVASCULAR: Regular rate and rhythm. nO murmurs RESPIRATORY: No accessory muscle use. decrease BS on R anteriorly to auscultation. + rhonchi b/l GASTROINTESTINAL: Abdomen soft, non-tender, mildly distended. Hepatic and splenic margins not palpable. MUSCULOSKELETAL: Extremities without clubbing, cyanosis, or edema. No obvious deformities. + R shoulder post op dressing in place, Incision intact, but effusion is present . Left shoulder catheter has serous drainage. NEUROLOGICAL: sedated PSYCHIATRIC: unable to assess Assessment and Plan - Plan High grade staph bacteremia. MRSA 2 D echo neg R shoulder effusion , cw R shoulder septic arhtritis (MRSA)-post I&D. . UTI, recurrent recent ly used Bactrim - clx negative probably 2/2 prior abx use Chronic osteo , diskitis, aw hardware h/o L spine fusion and infection 2 yrs ago Encephalopathy - likely 2/2 sepsis (pt has 2 concomitant infections: UTI and septic R shoulder arthritis - improved with treatment L supraclavicular mass turned out to be abscess on CT his CT showed abscess extending to posterior thorax. Status post drainage. MR L spine with ? diskitis multiple rad studies were dw radiologist CT chest with contrast was rec'd, but since he got contrast this am, will do w/ o contrast NM WBC * scan dw Dr Henry Sherman: - L spine abnormal enchanceemnt cw diskitis, chronic osteo no fluid collections New issue: resp failure, on NIVM PNA, RLL - new , cannot exclude aspiration High grade PNC allergy, but tolerated meropenem OK Pt is now critical and unstable fro resp standpoint looks likel reaccumulated R shoulder effusion Recs: continue vancomycin dc levaquin, meropenem start azactam teflaro Rifampin fu clx JUSTIN dw Dr Carmen levin ortho dw multiple family members @ bs
[2018-01-23] MEDS: Aztreonam Inj 2 GM in Sodium Chloride 0.9% Inj 100 ML IV.SIG SCH ×2 (13:24→20:07)
[2018-01-23] MEDS ORDERED: Lidocaine PF 1% Inj 5 ML Vial ONE ×2 (15:38→15:39)
--- NOTE | 2018-01-23 16:06 | US ---
EXAM DATE: 01/23/2018 3:40 PM EST AGE/SEX: 82 years / Male INDICATIONS: Right shoulder abscess/fluid collection. CLINICAL DATA: This is the patient's initial encounter. Patient reports that signs and symptoms have been present for 2 days and indicates a pain score of Nonresponsive. MEDICAL/SURGICAL HISTORY: Hypothyroidism. Hypertension. Atrial fibrillation. Peptic ulcer dise ase. MRSA. Depression. BPH. . Neck surgery. Left shoulder drain placement. COMPARISON: [facility] [place], MR SHOULDER LEFT W & W/O CONTRAST, 01/23/2018. . FLUID: Total volume of 17 cc of cloudy, red fluid was removed. Fluid was sent to lab for ordered studies. TECHNIQUE: Ultrasound guidance for abscess drainage. Abscess drainage. . . The risks, benefits and alternatives to the procedure were explained and verbal and written consent w as obtained. The site was prepped in sterile fashion. Full sterile technique was used, including ca p, mask, sterile gloves and gown and a large sterile sheet. Hand hygiene and 2% chlorhexidine and/or betadine/alcohol prep was utilized per protocol for cutaneous antisepsis. The skin and subcutaneous tissues were infiltrated with local anesthetic solution. Sterile gel and sterile probe cover were u tilized for ultrasound guidance. With the patient on the ultrasound table, ultrasound imaging was used to select the most appropriate approach for drainage. A dermatotomy was made with an 11 blade scalpel. A catheter was introduced i nto the cavity and fluid was collected. The patient tolerated the procedure well and the left the ultrasound suite in stable condition. FINDINGS: There is a complex fluid collection in the inferolateral right shoulder versus subcutaneous region. CONCLUSION: 1. Uncomplicated ultrasound-guided drainage catheter placement in complex inferolateral right should er fluid collection. Electronically signed by: Rebel Patterson MD 01/23/2018 4:05 PM EST
--- NOTE | 2018-01-23 16:06 | P.PNNP ---
Subjective Interval history: Patient having MRI Physical Exam Vital signs: Vital Signs 01/22/18 16:15 01/22/18 16:30 01/22/18 16:39 Temperature Pulse Rate 59 L 61 58 L Respiratory Rate 16 16 16 Blood Pressure 160/70 H 159/67 H 158/77 H Pulse Oximetry 97 97 97 01/22/18 16:40 01/22/18 16:42 01/22/18 16:44 Temperature Pulse Rate 77 93 H 93 H Respiratory Rate 19 25 H 12 Blood Pressure 174/79 H 148/69 H 145/73 H Pulse Oximetry 96 97 97 01/22/18 16:46 01/22/18 16:48 01/22/18 16:50 Temperature Pulse Rate 90 89 82 Respiratory Rate 14 14 8 L Blood Pressure 136/65 115/62 103/55 L Pulse Oximetry 96 96 96 01/22/18 16:52 01/22/18 16:54 01/22/18 16:56 Temperature Pulse Rate 91 H 85 86 Respiratory Rate 16 15 16 Blood Pressure 97/56 L 93/55 L 83/51 L Pulse Oximetry 95 95 95 01/22/18 16:58 01/22/18 17:00 01/22/18 17:03 Temperature Pulse Rate 82 85 81 Respiratory Rate 16 16 16 Blood Pressure 76/49 L 94/51 L Pulse Oximetry 95 100 96 01/22/18 17:15 01/22/18 17:30 01/22/18 18:00 Temperature Pulse Rate 58 L 61 72 Respiratory Rate 16 16 16 Blood Pressure 168/79 H 188/74 H Pulse Oximetry 97 97 96 01/22/18 18:07 01/22/18 18:37 01/22/18 19:00 Temperature Pulse Rate 66 56 L 61 Respiratory Rate 16 16 16 Blood Pressure 125/65 193/81 H Pulse Oximetry 97 97 96 01/22/18 19:08 01/22/18 19:30 01/22/18 20:00 Temperature 99.1 F Pulse Rate 70 62 65 Respiratory Rate 16 16 16 Blood Pressure 187/80 H 172/81 H Pulse Oximetry 96 96 96 01/22/18 20:04 01/22/18 21:00 01/22/18 22:00 Temperature Pulse Rate 63 69 71 Respiratory Rate 16 16 16 Blood Pressure 130/64 167/71 H 125/76 Pulse Oximetry 96 95 96 01/22/18 23:00 11/28/18 23:38 01/22/18 23:41 Temperature Pulse Rate 73 62 Respiratory Rate 16 16 16 Blood Pressure 154/72 H Pulse Oximetry 96 95 01/23/18 00:00 01/23/18 01:00 01/23/18 02:00 Temperature 99.0 F Pulse Rate 74 77 77 Respiratory Rate 16 16 16 Blood Pressure 119/65 127/67 117/65 Pulse Oximetry 95 95 95 01/23/18 02:40 01/23/18 03:00 01/23/18 04:00 Temperature 99.3 F Pulse Rate 71 75 Respiratory Rate 16 16 16 Blood Pressure 140/66 102/62 Pulse Oximetry 96 95 01/23/18 04:04 01/23/18 05:00 01/23/18 05:08 Temperature Pulse Rate 55 L 56 L Respiratory Rate 16 16 16 Blood Pressure 179/80 H 178/79 H Pulse Oximetry 95 97 97 01/23/18 05:15 01/23/18 05:30 01/23/18 06:00 Temperature Pulse Rate 63 75 82 Respiratory Rate 16 16 16 Blood Pressure 174/74 H 133/63 Pulse Oximetry 97 97 97 01/23/18 06:13 01/23/18 07:00 01/23/18 07:31 Temperature Pulse Rate 83 77 77 Respiratory Rate 16 12 12 Blood Pressure 113/58 L 81/50 L 88/54 L Pulse Oximetry 96 91 L 93 L 01/23/18 08:00 01/23/18 08:02 01/23/18 08:15 Temperature 97.8 F Pulse Rate 73 Respiratory Rate 12 12 Blood Pressure 98/54 L 106/55 L Pulse Oximetry 94 L 94 L 01/23/18 08:30 01/23/18 08:45 01/23/18 09:00 Temperature Pulse Rate 81 Respiratory Rate 12 Blood Pressure 97/53 L 91/54 L 93/50 L Pulse Oximetry 94 L 01/23/18 09:15 01/23/18 09:30 01/23/18 09:45 Temperature Pulse Rate 78 77 Respiratory Rate 12 Blood Pressure 75/50 L 78/50 L 87/55 L Pulse Oximetry 94 L 94 L 01/23/18 09:53 01/23/18 10:00 01/23/18 10:15 Temperature 99 F 99 F Pulse Rate 79 80 67 Respiratory Rate 12 12 12 Blood Pressure 87/55 L 98/55 L 98/56 L Pulse Oximetry 94 L 88 L 93 L 01/23/18 10:17 01/23/18 10:30 01/23/18 10:45 Temperature 99 F Pulse Rate 77 70 71 Respiratory Rate 12 12 12 Blood Pressure 87/55 L 114/62 102/58 L Pulse Oximetry 94 L 92 L 01/23/18 11:00 01/23/18 11:30 01/23/18 11:44 Temperature Pulse Rate 71 72 Respiratory Rate 12 12 12 Blood Pressure 119/58 L 127/61 Pulse Oximetry 94 L 96 96 01/23/18 12:00 01/23/18 14:04 01/23/18 14:45 Temperature 99 F Pulse Rate 72 65 73 Respiratory Rate 12 Blood Pressure 129/74 134/70 126/67 Pulse Oximetry 96 95 95 Intake & Output 01/22/18 01/23/18 01/23/18 18:59 06:59 18:59 Intake Total 300 / 300 860 / 860 700 / 700 Output Total 2300 / 2300 1974 / 1974 Balance -1999 / -1999 -1115 / -1115 700 / 700 Weight 59.5 kg Intake: IV 300 / 300 650 / 650 300 / 300 Diprivan 1000 mg/100 ml Inj 1, 100 / 100 000 mg In 100 ml @ 5 MCG/KG/MIN 2.082 mls/hr IV.CONT TITRATE PRN Rx#:[id number] Flexbumin 25% Inj 100 ML @ 60 200 / 200 100 / 100 mls/hr IV.SIG DAILY [facility] Rx#: [id number] Azactam Inj 2 GM In NS Inj 100 100 / 100 ML @ 200 mls/hr IV.SIG Q6H [facility] Rx#:[id number] Merrem Inj 1,000 MG In NS Inj 100 / 100 100 / 100 100 ML @ 200 mls/hr IV.SIG Q12H [facility] Rx#:[id number] KCl 20 mEq Premix Inj 20 meq In 200 / 200 100 ml @ 50 mls/hr IV.SIG Q2HR [facility] Rx#:[id number] KCl 40 mEq Premix Inj 40 meq In 100 / 100 100 ml @ 25 mls/hr IV.SIG Q2H PRN Rx#:[id number] fentaNYL 10 mcg/mL Premix Drip 250 / 250 2,500 mcg In 250 ml @ 50 MCG/HR 5 mls/hr IV.SIG TITRATE PRN Rx #:[id number] Tube Feeding 90 / 90 Tube Irrigant 120 / 120 Intake (Blood Product) Amt 400 / 400 Rbc As-3 Leukoreduced Unit 400 / 400 [id number] Output: Urine/Stool Mix 0 / 0 Urine Amount (Catheter) 2299 Indwelling Urethral Catheter 2299 Wound Drainage 0 / 0 0 / 0 Left Shoulder 0 / 0 0 / 0 Narrative: Patient intubated and on vent. - Urinary Catheter Management Condom Cath placed during this visit: no Indwelling Urethral Catheter Cath placed during this visit: yes Reason for continuing: Hourly intake/output Insertion date: 01/20/18 Insertion time: 11:30 Assessment and Plan - Assessment (1) Acute renal failure Code(s): N17.9 - Acute kidney failure, unspecified Status: Acute (2) Atrial fibrillation Code(s): I48.91 - Unspecified atrial fibrillation Status: Acute Qualifiers: Atrial fibrillation type: unspecified Qualified Code(s): I48.91 - Unspecified atrial fibrillation (3) Sepsis Code(s): A41.9 - Sepsis, unspecified organism Status: Acute Qualifiers: Sepsis type: methicillin resistant Staphylococcus aureus Qualified Code(s) : A41.02 - Sepsis due to Methicillin resistant Staphylococcus aureus - Plan Patient is a 82-year-old male with history of renal insufficiency which is getting worse now most likely due to underlying sepsis MRSA, he is getting vancomycin was hypotensive earlier but improved he is on albumin, , creatinine is 1.8 on Lasix and received Diamox, 1U PRBC, UOP 900 ml last shift, he was seen in MRI machine and spoke with NGUYỄN Charles Renal output 4.2 L on Lasix now 40 mg daily, potassium was low this was replaced and corrected MRI done of lumbar spine been done
--- NOTE | 2018-01-23 16:41 | P.PNNS ---
Subjective Interval history: intubated, sedated. <Paty Cardona - Last Filed: 01/23/18 16:39> Physical Exam Vital signs: Vital Signs 01/22/18 16:40 01/22/18 16:42 01/22/18 16:44 Temperature Pulse Rate 77 93 H 93 H Respiratory Rate 19 25 H 12 Blood Pressure 174/79 H 148/69 H 145/73 H Pulse Oximetry 96 97 97 01/22/18 16:46 01/22/18 16:48 01/22/18 16:50 Temperature Pulse Rate 90 89 82 Respiratory Rate 14 14 8 L Blood Pressure 136/65 115/62 103/55 L Pulse Oximetry 96 96 96 01/22/18 16:52 01/22/18 16:54 01/22/18 16:56 Temperature Pulse Rate 91 H 85 86 Respiratory Rate 16 15 16 Blood Pressure 97/56 L 93/55 L 83/51 L Pulse Oximetry 95 95 95 01/22/18 16:58 01/22/18 17:00 01/22/18 17:03 Temperature Pulse Rate 82 85 81 Respiratory Rate 16 16 16 Blood Pressure 76/49 L 94/51 L Pulse Oximetry 95 100 96 01/22/18 17:15 01/22/18 17:30 01/22/18 18:00 Temperature Pulse Rate 58 L 61 72 Respiratory Rate 16 16 16 Blood Pressure 168/79 H 188/74 H Pulse Oximetry 97 97 96 01/22/18 18:07 01/22/18 18:37 01/22/18 19:00 Temperature Pulse Rate 66 56 L 61 Respiratory Rate 16 16 16 Blood Pressure 125/65 193/81 H Pulse Oximetry 97 97 96 01/22/18 19:08 01/22/18 19:30 01/22/18 20:00 Temperature 99.1 F Pulse Rate 70 62 65 Respiratory Rate 16 16 16 Blood Pressure 187/80 H 172/81 H Pulse Oximetry 96 96 96 01/22/18 20:04 01/22/18 21:00 01/22/18 22:00 Temperature Pulse Rate 63 69 71 Respiratory Rate 16 16 16 Blood Pressure 130/64 167/71 H 125/76 Pulse Oximetry 96 95 96 01/22/18 23:00 01/22/18 23:38 01/22/18 23:41 Temperature Pulse Rate 73 62 Respiratory Rate 16 16 16 Blood Pressure 154/72 H Pulse Oximetry 96 95 01/23/18 00:00 01/23/18 01:00 01/23/18 02:00 Temperature 99.0 F Pulse Rate 74 77 77 Respiratory Rate 16 16 16 Blood Pressure 119/65 127/67 117/65 Pulse Oximetry 95 95 95 01/23/18 02:40 01/23/18 03:00 01/23/18 04:00 Temperature 99.3 F Pulse Rate 71 75 Respiratory Rate 16 16 16 Blood Pressure 140/66 102/62 Pulse Oximetry 96 95 01/23/18 04:04 01/23/18 05:00 01/23/18 05:08 Temperature Pulse Rate 55 L 56 L Respiratory Rate 16 16 16 Blood Pressure 179/80 H 178/79 H Pulse Oximetry 95 97 97 01/23/18 05:15 01/23/18 05:30 01/23/18 06:00 Temperature Pulse Rate 63 75 82 Respiratory Rate 16 16 16 Blood Pressure 174/74 H 133/63 Pulse Oximetry 97 97 97 01/23/18 06:13 01/23/18 07:00 01/23/18 07:31 Temperature Pulse Rate 83 77 77 Respiratory Rate 16 12 12 Blood Pressure 113/58 L 81/50 L 88/54 L Pulse Oximetry 96 91 L 93 L 01/23/18 08:00 01/23/18 08:02 01/23/18 08:15 Temperature 97.8 F Pulse Rate 73 Respiratory Rate 12 12 Blood Pressure 98/54 L 106/55 L Pulse Oximetry 94 L 94 L 01/23/18 08:30 01/23/18 08:45 01/23/18 09:00 Temperature Pulse Rate 81 Respiratory Rate 12 Blood Pressure 97/53 L 91/54 L 93/50 L Pulse Oximetry 94 L 01/23/18 09:15 01/23/18 09:30 01/23/18 09:45 Temperature Pulse Rate 78 77 Respiratory Rate 12 Blood Pressure 75/50 L 78/50 L 87/55 L Pulse Oximetry 94 L 94 L 01/23/18 09:53 01/23/18 10:00 01/23/18 10:15 Temperature 99 F 99 F Pulse Rate 79 80 67 Respiratory Rate 12 12 12 Blood Pressure 87/55 L 98/55 L 98/56 L Pulse Oximetry 94 L 88 L 93 L 01/23/18 10:17 01/23/18 10:30 01/23/18 10:45 Temperature 99 F Pulse Rate 77 70 71 Respiratory Rate 12 12 12 Blood Pressure 87/55 L 114/62 102/58 L Pulse Oximetry 94 L 92 L 01/23/18 11:00 01/23/18 11:30 01/23/18 11:44 Temperature Pulse Rate 71 72 Respiratory Rate 12 12 12 Blood Pressure 119/58 L 127/61 Pulse Oximetry 94 L 96 96 01/23/18 12:00 01/23/18 14:04 01/23/18 14:45 Temperature 99 F Pulse Rate 72 65 73 Respiratory Rate 12 Blood Pressure 129/74 134/70 126/67 Pulse Oximetry 96 95 95 Intake & Output 01/22/18 01/23/18 01/23/18 18:59 06:59 18:59 Intake Total 300 / 300 860 / 860 700 / 700 Output Total 2300 / 2300 1974 / 1974 Balance -1999 / -1999 -1115 / -1115 700 / 700 Weight 59.5 kg Intake: IV 300 / 300 650 / 650 300 / 300 Diprivan 1000 mg/100 ml Inj 1, 100 / 100 000 mg In 100 ml @ 5 MCG/KG/MIN 2.082 mls/hr IV.CONT TITRATE PRN Rx#:[id number] Flexbumin 25% Inj 100 ML @ 60 200 / 200 100 / 100 mls/hr IV.SIG DAILY CHAYO Rx#: [id number] Azactam Inj 2 GM In NS Inj 100 100 / 100 ML @ 200 mls/hr IV.SIG Q6H [facility] Rx#:[id number] Merrem Inj 1,000 MG In NS Inj 100 / 100 100 / 100 100 ML @ 200 mls/hr IV.SIG Q12H [facility] Rx#:[id number] KCl 20 mEq Premix Inj 20 meq In 200 / 200 100 ml @ 50 mls/hr IV.SIG Q2HR [facility] Rx#:[id number] KCl 40 mEq Premix Inj 40 meq In 100 / 100 100 ml @ 25 mls/hr IV.SIG Q2H PRN Rx#:[id number] fentaNYL 10 mcg/mL Premix Drip 250 / 250 2,500 mcg In 250 ml @ 50 MCG/HR 5 mls/hr IV.SIG TITRATE PRN Rx #:[id number] Tube Feeding 90 / 90 Tube Irrigant 120 / 120 Intake (Blood Product) Amt 400 / 400 Rbc As-3 Leukoreduced Unit 400 / 400 [id number] Output: Urine/Stool Mix 0 / 0 Urine Amount (Catheter) 2299 Indwelling Urethral Catheter 2299 Wound Drainage 0 / 0 0 / 0 Left Shoulder 0 / 0 0 / 0 Narrative: intubated, sedated - Urinary Catheter Management Condom Cath placed during this visit: no Indwelling Urethral Catheter Cath placed during this visit: yes Reason for continuing: Hourly intake/output Insertion date: 01/20/18 Insertion time: 11:30 <Paty Cardona - Last Filed: 01/23/18 16:39> Vital signs: Vital Signs 01/22/18 19:00 01/22/18 19:08 01/22/18 19:30 Temperature Pulse Rate 61 70 62 Respiratory Rate 16 16 16 Blood Pressure 187/80 H 172/81 H Pulse Oximetry 96 96 96 01/22/18 20:00 01/22/18 20:04 01/22/18 21:00 Temperature 99.1 F Pulse Rate 65 63 69 Respiratory Rate 16 16 16 Blood Pressure 130/64 167/71 H Pulse Oximetry 96 96 95 01/22/18 22:00 01/22/18 23:00 01/22/18 23:38 Temperature Pulse Rate 71 73 Respiratory Rate 16 16 16 Blood Pressure 125/76 154/72 H Pulse Oximetry 96 96 95 01/22/18 23:41 01/23/18 00:00 01/23/18 01:00 Temperature 99.0 F Pulse Rate 62 74 77 Respiratory Rate 16 16 16 Blood Pressure 119/65 127/67 Pulse Oximetry 95 95 01/23/18 02:00 01/23/18 02:40 01/23/18 03:00 Temperature Pulse Rate 77 71 Respiratory Rate 16 16 16 Blood Pressure 117/65 140/66 Pulse Oximetry 95 96 01/23/18 04:00 01/23/18 04:04 01/23/18 05:00 Temperature 99.3 F Pulse Rate 75 55 L Respiratory Rate 16 16 16 Blood Pressure 102/62 179/80 H Pulse Oximetry 95 95 97 01/23/18 05:08 01/23/18 05:15 01/23/18 05:30 Temperature Pulse Rate 56 L 63 75 Respiratory Rate 16 16 16 Blood Pressure 178/79 H 174/74 H 133/63 Pulse Oximetry 97 97 97 01/23/18 06:00 01/23/18 06:13 01/23/18 07:00 Temperature Pulse Rate 82 83 77 Respiratory Rate 16 16 12 Blood Pressure 113/58 L 81/50 L Pulse Oximetry 97 96 91 L 01/23/18 07:31 01/23/18 08:00 01/23/18 08:02 Temperature 97.8 F Pulse Rate 77 73 Respiratory Rate 12 12 12 Blood Pressure 88/54 L 98/54 L Pulse Oximetry 93 L 94 L 94 L 01/23/18 08:15 01/23/18 08:30 01/23/18 08:45 Temperature Pulse Rate Respiratory Rate Blood Pressure 106/55 L 97/53 L 91/54 L Pulse Oximetry 01/23/18 09:00 01/23/18 09:15 01/23/18 09:30 Temperature Pulse Rate 81 78 77 Respiratory Rate 12 12 Blood Pressure 93/50 L 75/50 L 78/50 L Pulse Oximetry 94 L 94 L 94 L 01/23/18 09:45 01/23/18 09:53 01/23/18 10:00 Temperature 99 F 99 F Pulse Rate 79 80 Respiratory Rate 12 12 Blood Pressure 87/55 L 87/55 L 98/55 L Pulse Oximetry 94 L 88 L 01/23/18 10:15 01/23/18 10:17 01/23/18 10:30 Temperature 99 F Pulse Rate 67 77 70 Respiratory Rate 12 12 12 Blood Pressure 98/56 L 87/55 L 114/62 Pulse Oximetry 93 L 94 L 01/23/18 10:45 01/23/18 11:00 01/23/18 11:30 Temperature Pulse Rate 71 71 72 Respiratory Rate 12 12 12 Blood Pressure 102/58 L 119/58 L 127/61 Pulse Oximetry 92 L 94 L 96 01/23/18 11:44 01/23/18 12:00 01/23/18 12:30 Temperature 99 F Pulse Rate 72 78 Respiratory Rate 12 12 12 Blood Pressure 129/74 115/62 Pulse Oximetry 96 96 95 01/23/18 13:00 01/23/18 13:30 01/23/18 14:00 Temperature 99 F Pulse Rate 74 67 74 Respiratory Rate 12 12 12 Blood Pressure 115/65 111/64 134/70 Pulse Oximetry 95 95 95 01/23/18 14:04 01/23/18 14:30 01/23/18 14:45 Temperature Pulse Rate 65 69 66 Respiratory Rate 12 12 Blood Pressure 134/70 126/67 129/71 Pulse Oximetry 95 95 95 01/23/18 15:00 01/23/18 15:30 01/23/18 16:00 Temperature Pulse Rate 76 74 72 Respiratory Rate 12 12 12 Blood Pressure 122/69 124/69 126/72 Pulse Oximetry 99 99 99 01/23/18 16:30 01/23/18 17:00 01/23/18 17:21 Temperature 98.7 F Pulse Rate 71 88 Respiratory Rate 12 21 Blood Pressure 142/89 H 131/66 Pulse Oximetry 99 93 L 100 01/23/18 18:00 Temperature 98.7 F Pulse Rate 77 Respiratory Rate 12 Blood Pressure 113/59 L Pulse Oximetry 96 Intake & Output 01/22/18 01/23/18 01/23/18 18:59 06:59 18:59 Intake Total 300 / 300 860 / 860 820 / 820 Output Total 2300 / 2300 1974 / 1974 1395 / 1395 Balance -1999 / -2000 -1115 / -1115 -575 / -575 Weight 59.5 kg Intake: IV 300 / 300 650 / 650 300 / 300 Diprivan 1000 mg/100 ml Inj 1, 100 / 100 000 mg In 100 ml @ 5 MCG/KG/MIN 2.082 mls/hr IV.CONT TITRATE PRN Rx#:[id number] Flexbumin 25% Inj 100 ML @ 60 200 / 200 100 / 100 mls/hr IV.SIG DAILY [facility]O Rx#: [id number] Azactam Inj 2 GM In NS Inj 100 100 / 100 ML @ 200 mls/hr IV.SIG Q6H [facility] Rx#:[id number] Merrem Inj 1,000 MG In NS Inj 100 / 100 100 / 100 100 ML @ 200 mls/hr IV.SIG Q12H [facility] Rx#:[id number] KCl 20 mEq Premix Inj 20 meq In 200 / 200 100 ml @ 50 mls/hr IV.SIG Q2HR [facility] Rx#:[id number] KCl 40 mEq Premix Inj 40 meq In 100 / 100 100 ml @ 25 mls/hr IV.SIG Q2H PRN Rx#:[id number] fentaNYL 10 mcg/mL Premix Drip 250 / 250 2,500 mcg In 250 ml @ 50 MCG/HR 5 mls/hr IV.SIG TITRATE PRN Rx #:[id number] Tube Feeding 90 / 90 Tube Irrigant 120 / 120 Water Bolus Amount 120 / 120 Intake (Blood Product) Amt 400 / 400 Rbc As-3 Leukoreduced Unit 400 / 400 [id number] Output: Urine/Stool Mix 0 / 0 Urine Amount (Catheter) 2299 / 2300 1974 1375 / 1375 Indwelling Urethral Catheter 2299 / 2299 1375 / 1375 Wound Drainage 0 / 0 0 / 0 20 / 20 Left Shoulder 0 / 0 0 / 0 0 / 0 Right Shoulder 20 / 20 Other: # Bowel Movements 0 Narrative: The patient is intubated and sedated. Localizes to painful stimuli with all 4 extremities. Cranial Nerves: Pupils equal, 3 mm round, reactive to light. Eyes appear conjugated. There was no nystagmus, no papilledema. Face musculature appeared symmetrical at rest. Face sensation, olfaction, and hearing cannot be adequately assessed due to the patient's neurological condition. The patient has a corneal reflex. The patient has a gag reflex. The sternocleidomastoid and trapezius were symmetrical. Cervical Spine: The patient's neck is soft, supple, without nuchal rigidity. Motor: His muscle tone and bulk are normal. He moves purposefully all 4 extremities symmetrically. Reflexes: Deep tendon reflexes are 2+ and symmetrical in the biceps, triceps, and brachioradialis, bilaterally, in the upper extremities. In the lower extremities, the patellar and ankles are 2+, bilaterally. There is a bilateral plantar flexion response. There is no clonus or other abnormal reflexes noted. Sensory: On examination there there is response to painful stimuli, localizing with both upper and lower extremities. Cerebellar: Examination cannot be adequately assessed due to the patient's neurological condition. Lungs: clear Heart: Regular rhythm and rate Skin: warm and dry - Urinary Catheter Management Condom Cath placed during this visit: no Indwelling Urethral Catheter Cath placed during this visit: no <Alan Piña - Last Filed: 01/23/18 18:51> Assessment and Plan - Plan 82 year old male Sepsis left shoulder abscess s/p I&D left neck abscess s/p drainage remote history of lumbar fusion with suspected chronic osteomyelitis Neuro. Continue neuro checks. His nuclear medicine scan shows multiple areas of abnormal uptake including at the upper lumbar spine around the upper left surgical hardware and at the L1-2 disc level, abnormal activity in the right C2- 3 facet and the left C7-T1 facet, All these areas are concerning for active infection. Recommend MRI lumbar spine to rule out epidural abscess once that he is medically stable. he is not stable to undergo an MRI at this point Acute combined hypercapnic and hypoxemic respiratory failure CXR reviewed, ABG reviewed. His findings discussed with Dr Mcghee Cosmetic Account Coordinator, he is at risk for deterioration He may need to return to ICU -Continue IV lasix monitor closely kidney function. -Scott placed for accurate I&Os and BPH -Avoid steroids if possible as patient with acute infection see below -critical care management, intubated, s/p bronchoscopy, MRSA septicemia, septic right shoulder, L spine possible osteomyelitis, left supraclavicular abscess Right shoulder effusion. septic right shoulder, s/p I&D Urinary tract infection. 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 Steroid tapered and DCd He has been afebrile. Vital signs stable Blood cultures positive for MRSA. 2D echocardiogram did not show any findings consistent with vegetations. Patient may need JUSTIN. Continue vancomycin, Levaquin Patient also had a right shoulder effusion, orthopedics aspirated the shoulder which grew approximately 30 cc of purulent fluid. had follow-up with orthopedics for their recommendations drainage of that right shoulder. Continue IV antibiotics per infectious disease recommendations. Infectious disease following him repeat blood cultures Cardiothoracic surgeon was consulted for evaluation of supraclavicular mass/ poss abscess IR consulted s/p CT-guided drainage of left posterior supraclavicular/posterior chest wall abscess on 01/17/18. KEKE on CKD. Noted elevated serum creatinine of 1.64. Likely KEKE on CKD. Cont IV fluids, serum creatinine not trending down will consult nephrology Atrial Fibrillation, permanent Rate well controlled. Recent ECHO EF 65% Dr. Garner following. Insomnia: add small dose of temazepam , add melatonin Protein calorie malnutrition: very low albumin, will check prealbumin. Will add ensure with meals. Consult cassandra architect. BPH - Continue Flomax. Endocrine: Continue to Monitor serial Acu checks and SSI as needed in detail Continue Protonix for stress ulcer prophylaxis Continue Randolph hose and SCD's for DVT prophylaxis. Lovenox Further recommendations will be provided depending on the patient's clinical evaluation and follow up studies. <Paty Cardona - Last Filed: 01/23/18 16:39> - Plan 82 year old male Sepsis left shoulder abscess s/p I&D left neck abscess s/p drainage remote history of lumbar fusion with suspected chronic osteomyelitis I have reviewed the follow up radiological Abdomen/Pelvis CT 01/13/18 20:43 CONCLUSION: 1. Marked prostate enlargement. 2. Air-filled distention of sigmoid colon. 3. Cardiomegaly. Small bilateral pleural effusions. 4. Diffuse atherosclerotic disease and arterial calcification. 5. Old insufficiency type fractures of the left side of the sacrum and left- sided pubic rami. Cervical Spine MRI 01/14/18 00:00 CONCLUSION: 1. Examination is degraded by motion artifact. 2. Partial visualization of a mass involving the left supraclavicular region measuring 5.[address] scan of the soft tissues of the neck with IV contrast to further assess if the patient can't hold still for that exam. 3. Diffuse degenerative changes as detailed at each level in the above discussion. Head MRI 01/14/18 00:00 CONCLUSION: 1. No acute intracranial abnormality. 2. Encephalomalacia involving the left frontal lobe. Thoracic Spine MRI 01/14/18 00:00 CONCLUSION: 1. See the MRI of the cervical spine reported separately. 2. Orthopedic hardware at the thoracolumbar junction. 3. Patent central canal throughout. Head CT 01/14/18 00:31 CONCLUSION: 1. No acute intracranial findings. 2. 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 . Venous Doppler Study 01/14/18 09:20 CONCLUSION: 1. The study is negative for lower extremity deep venous thrombosis. Soft Tissue Neck CT 01/16/18 00:00 CONCLUSION: 1. Partially visualized fluid and gas collection deep to the left trapezius muscle in the posterior lower neck extending into the posterior thorax. Chest CT with contrast could be performed to image the remainder of the abnormality. Differential diagnosis includes abscess and hematoma. 2. Degenerative findings of the cervical spine. Chest CT 01/16/18 11:15 CONCLUSION: 1. Lobulated mass in the left supraclavicular region. It is most suggestive of a multi lobulated loculated abscess given the air within several of the masses. 2. Bibasilar areas of consolidation or atelectasis. There are mild bilateral pleural effusion. 3. There is a drain over the right shoulder region. 4. Postsurgical change at the thoracolumbar region as described above. Abscess Drainage CT 01/17/18 00:00 CONCLUSION: 1. Uncomplicated CT guided drainage, as above. WBC Scan Nuclear Medicine 01/18/18 00:00 CONCLUSION: 1. Multiple areas of abnormal uptake including at the upper lumbar spine around the upper left surgical hardware and at the L1-2 disc level. 2. Abnormal activity around the clip joints bilaterally being more prominent on the right. 3. Abnormal activity in the right C2-3 facet and the left C7-T1 facet. 4. Small area of signal abnormality in the posterior right sacroiliac joint region separate from surgical hardware. 5. All these areas are concerning for active infection. Shoulder X-Ray 01/21/18 00:00 CONCLUSION: Unusual positioning of the shoulder but I do not see any obvious displaced fracture of the shoulder. There is a healing third rib fracture and healing seventh rib fracture. Upper Extremity Ultrasound 01/22/18 00:00 CONCLUSION: 1. Lateral right shoulder subcutaneous complex fluid collection concerning for abscess. This is amenable to percutaneous drainage. Abscess Drainage Ultrasound 01/23/18 00:00 CONCLUSION: 1. Uncomplicated ultrasound-guided drainage catheter placement in complex inferolateral right shoulder fluid collection. Lumbar Spine MRI 01/23/18 00:00 CONCLUSION: Little or no change from previous exam. Nothing to suggest abscess Pelvis MRI 01/23/18 00:00 CONCLUSION: 1. Diffuse skin thickening and subcutaneous edema suggestive of cellulitis involving the left buttock without underlying abscess formation. 2. Rectosigmoid colon is distended with fecal debris suggestive of fecal impaction. Clinical correlation is recommended. 3. Markedly enlarged prostate. 4. Degenerative changes and scoliosis of the visualized lower lumbar spine are noted. 5. Bony changes involving the left sacrum likely representing old healed insufficiency fractures. Shoulder MRI 01/23/18 00:00 CONCLUSION: 1. Chronic complete rotator cuff tear. 2. Moderate joint fluid Chest X-Ray 01/23/18 05:00 CONCLUSION: Bilateral mostly basilar airspace disease and pleural effusions. No pneumothorax. Support apparatus in good position. No significant change since prior exam. Neuro. Continue neuro checks. His MRI showed no evidence of epidural abscess. Continue IV antibiotics Acute combined hypercapnic and hypoxemic respiratory failure CXR reviewed, ABG reviewed. His findings discussed with Dr Mcghee Cosmetic Account Coordinator, he is at risk for deterioration He may need to return to ICU -Continue IV lasix monitor closely kidney function. -Scott placed for accurate I&Os and BPH -Avoid steroids if possible as patient with acute infection see below -critical care management, intubated, s/p bronchoscopy, MRSA septicemia, septic right shoulder, L spine possible osteomyelitis, left supraclavicular abscess Right shoulder effusion. septic right shoulder, Status post percutaneous drainage today by IR TODAY Urinary tract infection. Left Supraclavicular abscess, CT reviewed, showed abscess extending to posterior thorax Diskitis MR L spine with poss diskitis Blood cultures positive for MRSA. 2D echocardiogram did not show any findings consistent with vegetations. Patient may need JUSTIN. Continue vancomycin, Levaquin Patient also had a right shoulder effusion, orthopedics aspirated the shoulder which grew approximately 30 cc of purulent fluid. had follow-up with orthopedics for their recommendations drainage of that right shoulder. Continue IV antibiotics per infectious disease recommendations. Infectious disease following him repeat blood cultures Cardiothoracic surgeon was consulted for evaluation of supraclavicular mass/ poss abscess IR consulted s/p CT-guided drainage of left posterior supraclavicular/posterior chest wall abscess on 01/17/18. KEKE on CKD. Noted elevated serum creatinine of 1.64. Likely KEKE on CKD. Cont IV fluids, serum creatinine not trending down will consult nephrology Atrial Fibrillation, permanent Rate well controlled. Recent ECHO EF 65% Dr. Garner following. Insomnia: add small dose of temazepam , add melatonin Protein calorie malnutrition: very low albumin, will check prealbumin. Will add ensure with meals. Consult cassandra architect. BPH - Continue Flomax. Endocrine: Continue to Monitor serial Acu checks and SSI as needed in detail Continue Protonix for stress ulcer prophylaxis Continue Randolph hose and SCD's for DVT prophylaxis. Lovenox Further recommendations will be provided depending on the patient's clinical evaluation and follow up studies. The exam, history, and the medical decision-making described in the above note were completed with the assistance of the mid-level provider. I reviewed and agree with the findings presented. I attest that I had a [id number] encounter with the patient on the same day, and personally performed and documented my assessment and findings in the medical record. <Alan Piña - Last Filed: 01/23/18 18:51>
--- NOTE | 2018-01-23 17:30 | MR ---
INDICATIONS: . Abscess. CLINICAL DATA: This is the patient's subsequent encounter. Patient reports that signs and symptoms h ave been present for 3 weeks and indicates a pain score of Nonresponsive. MEDICAL/SURGICAL HISTORY: Hypertension. Hypothyroidism. Fusion, lumbar. Right and left shoulde r. COMPARISON: [facility] [place]ED ABSCESS DRAIN, 01/17/2018. . TECHNIQUE: Multiplanar, multisequence MRI examination was performed without contrast. FINDINGS: Bowel/Mesentery: The rectosigmoid colon is distended with fecal debris suggestive of fecal impaction. Clinical correlation is recommended. Bladder: A Scott catheter is noted within the nondistended urinary bladder. Retroperitoneum: No evidence of deep pelvic adenopathy. The fat planes about the pelvic sidewalls ar e intact. Reproductive Organs: Prostate gland is markedly enlarged. Inguinal: Grossly unremarkable. Bony Structures: Degenerative changes and scoliosis of the visualized lower lumbar spine are noted. H ardware is noted within the lower lumbar spine status post fusion. Bony changes involving the left sa roxana likely representing old healed insufficiency fractures. Old healed fractures of the left superio r and inferior pubic rami are also noted. Free Fluid: No free fluid is noted. Miscellaneous: There is diffuse skin thickening and subcutaneous edema involving the left buttock wit hout underlying abscess formation. CONCLUSION: 1. Diffuse skin thickening and subcutaneous edema suggestive of cellulitis involving the left buttoc k without underlying abscess formation. 2. Rectosigmoid colon is distended with fecal debris suggestive of fecal impaction. Clinical correla tion is recommended. 3. Markedly enlarged prostate. 4. Degenerative changes and scoliosis of the visualized lower lumbar spine are noted. 5. Bony changes involving the left sacrum likely representing old healed insufficiency fractures. Electronically signed by: José Santana MD 01/23/2018 5:29 PM EST
--- NOTE | 2018-01-23 17:40 | MR ---
EXAM DATE: 01/23/2018 5:02 PM EST AGE/SEX: 82 years / Male INDICATIONS: Abscess. CLINICAL DATA: This is the patient's subsequent encounter. Patient reports that signs and symptoms h ave been present for 1 week and indicates a pain score of Nonresponsive. MEDICAL/SURGICAL HISTORY: Hypothyroidism. Diabetes mellitus type II. Atrial fibrillation. Fus ion, lumbar. Appendectomy. Left and right shoulder. COMPARISON: [facility] [place], MR LUMBAR SPINE W & W/O CONTRAST, 01/14/2018. . TECHNIQUE: Multiplanar, multisequence MRI of the lumbar spine was performed without contrast. Patie nt was scanned in a sitting position; neutral, flexion, and extension scans were performed in the sa gittal plane. FINDINGS: Extensive lumbar hardware fusion again noted with hardware extending from L1 to L5. Compression defor mity at T12 producing some focal kyphotic angulation. No significant spondylolisthesis. No change in configuration from the previous exam. The lumbar canal is stable and patent. There is no evidence of paraspinal mass or collection. CONCLUSION: Little or no change from previous exam. Nothing to suggest abscess Electronically signed by: Misbah Sanchez MD 01/23/2018 5:38 PM EST
--- NOTE | 2018-01-23 17:47 | MR ---
EXAM DATE: 01/23/2018 5:07 PM EST AGE/SEX: 82 years / Male INDICATIONS: Abscess. Infection of left GH joint. CLINICAL DATA: This is the patient's subsequent encounter. Patient reports that signs and symptoms h ave been present for 1 week and indicates a pain score of Nonresponsive. MEDICAL/SURGICAL HISTORY: Hyperparathyroidism. Hypothyroidism. Appendectomy. Fusion, lumbar. I&D Left shoulder, COMPARISON: No prior exams available for comparison. TECHNIQUE: Multiplanar, multisequence MRI examination was performed without contrast. FINDINGS: Chronic complete rotator cuff tear with high riding humeral head, somewhat anteriorly subluxed. Moder ate glenohumeral joint fluid present with sizable focal pocket posterior lateral to the humeral neck region. Likely degenerative type marrow signal changes in the subchondral portions of the humeral hea d. CONCLUSION: 1. Chronic complete rotator cuff tear. 2. Moderate joint fluid Electronically signed by: Misbah Sanchez MD 01/23/2018 5:45 PM EST
[2018-01-23] MEDS ORDERED: RESP: Acetylcysteine 10% 4 ML Neb NEB SCH (18:00)
[2018-01-23] MEDS: Melatonin 5 MG Tablet PO SCH (20:08)
--- NOTE | 2018-01-23 20:09 | P.PNNEU ---
Subjective Active Medications: Active Medications Acetaminophen (Tylenol) 650 mg PO Q4H PRN PRN Reason: Temp > 100.4 Hydrocodone Bitart/Acetaminophen ([place] 5/325) 1 tab PO Q4H PRN PRN Reason: PAIN LESS THAN 5 ON SCALE Last Admin: 01/19/18 08:04 Dose: 1 tab Hydrocodone Bitart/Acetaminophen ([place] 5/325) 2 tab PO Q6H PRN PRN Reason: PAIN SCALE 5 TO 10 Acetylcysteine (Mucomyst 10% Neb) 2 ml NEB Q6HR NEB [facility] Last Admin: 01/23/18 20:05 Dose: 2 ml Al Hydroxide/Mg Hydroxide (Milk Of Eduardo Saleem) 30 ml PO Q12H PRN PRN Reason: Mild Constipation Albuterol (Duoneb Neb (Prn)) 1 ampul NEB Q2HR NEB PRN PRN Reason: WHEEZING Albuterol (Duoneb Neb (Mauro)) 1 ampul NEB Q6HR NEB [facility] Last Admin: 01/23/18 20:04 Dose: 1 ampul Amlodipine Besylate (Norvasc) 10 mg PO DAILY [facility] Last Admin: 01/23/18 09:15 Dose: Not Given Bisacodyl (Dulcolax Supp) 10 mg RECTAL DAILY PRN PRN Reason: SEVERE CONSITIPATION Chlorhexidine Gluconate (Peridex 0.12% Oral Kit) 15 ml OROPHARYNG BID@0800, 2000 [facility] Last Admin: 01/23/18 08:12 Dose: 15 ml Citalopram Hydrobromide (Celexa) 20 mg PO DAILY [facility] Last Admin: 01/23/18 09:14 Dose: 20 mg Furosemide (Lasix Inj) 40 mg IV.PUSH DAILY [facility] Last Admin: 01/23/18 09:14 Dose: 40 mg Hydralazine HCl (Apresoline Inj) 20 mg IV.PUSH Q4H PRN PRN Reason: SBP>160, DBP>90 Last Admin: 01/23/18 05:18 Dose: 20 mg Sodium Chloride (Ns Inj) 500 mls @ 30 mls/hr IV.SIG .Q10H [facility] Propofol (Diprivan 1000 Mg/100 Ml Inj) 1,000 mg in 100 mls @ 2.082 mls/hr IV.CONT TITRATE PRN; Protocol PRN Reason: Per Protocol Last Titration: 01/23/18 01:35 Dose: Infused Fentanyl (Fentanyl 10 Mcg/Ml Premix Drip) 2,500 mcg in 250 mls @ 5 mls/hr IV.SIG TITRATE PRN; Protocol PRN Reason: Per Protocol Last Titration: 01/23/18 13:45 Dose: 150 mcg/hr, 15 mls/hr Midazolam HCl (Versed Inj) 100 mg in 100 mls @ 2 mls/hr IV.CONT TITRATE PRN; Protocol PRN Reason: See protocol Last Titration: 01/23/18 07:00 Dose: 0 mg/hr, 0 mls/hr Sodium Chloride (Ns Inj) 250 mls @ 15 mls/hr IV.SIG ONCE [facility] Stop: 01/23/18 23:39 Last Admin: 01/23/18 09:45 Dose: 15 mls/hr Magnesium Sulfate 4 gm/ Sodium (Chloride) 100 mls @ 50 mls/hr IV.SIG UNSCH PRN PRN Reason: For Magnesium 0.9 - 1.1 mg/dL Magnesium Sulfate 2 gm/ Sodium (Chloride) 100 mls @ 50 mls/hr IV.SIG UNSCH PRN PRN Reason: For Magnesium 1.2 - 1.6 mg/dL Potassium Chloride (Kcl 20 Meq Premix Inj) 20 meq in 100 mls @ 50 mls/hr IV.SIG Q2H PRN PRN Reason: For Potassium 3.3 - 3.5 mEq/L Potassium Chloride (Kcl 40 Meq Premix Inj) 40 meq in 100 mls @ 25 mls/hr IV.SIG UNSCH PRN PRN Reason: For Potassium 3.3 - 3.5 mEq/L Potassium Chloride (Kcl 20 Meq Premix Inj) 20 meq in 100 mls @ 50 mls/hr IV.SIG Q2H PRN PRN Reason: For Potassium 2.8 - 3.2 mEq/L Potassium Phosphate 30 mmol/ (Sodium Chloride) 260 mls @ 42 mls/hr IV.SIG UNSCH PRN PRN Reason: SEE LABEL COMMENTS Potassium Chloride (Kcl 40 Meq Premix Inj) 40 meq in 100 mls @ 25 mls/hr IV.SIG Q2H PRN PRN Reason: For Potassium 2.8 - 3.2 mEq/L Last Infusion: 01/23/18 11:18 Dose: Infused Sodium Phosphate 30 mmol/ (Sodium Chloride) 260 mls @ 42 mls/hr IV.SIG UNSCH PRN PRN Reason: For Phosphorus < 2.5 mg/dL Albumin Human (Flexbumin 25% Inj) 100 mls @ 60 mls/hr IV.SIG DAILY [facility] Last Infusion: 01/23/18 10:55 Dose: Infused Norepinephrine Bitartrate (Levophed-Dextrose 4 Mg/250 Ml Drip) 4 mg in 250 mls @ 7.5 mls/hr IV.SIG TITRATE PRN; Protocol PRN Reason: Per Protocol Ceftaroline Fosamil 400 mg/ (Sodium Chloride) 100 mls @ 100 mls/hr IV.SIG Q12H [facility] Last Infusion: 01/23/18 18:00 Dose: Infused Aztreonam 2 gm/ Sodium (Chloride) 100 mls @ 200 mls/hr IV.SIG Q6H [facility] Last Infusion: 01/23/18 13:54 Dose: Infused Lactulose (Lactulose Liq) 30 ml PO DAILY PRN PRN Reason: SEVERE CONSITIPATION Levothyroxine Sodium (Synthroid) 100 mcg PO DAILY@0600 [facility] Last Admin: 01/23/18 06:02 Dose: 100 mcg Magnesium Oxide (Mag-Ox) 800 mg PO UNSCH PRN PRN Reason: For Magnesium 1.2 - 1.6 mg/dL Melatonin (Melatonin) 5 mg PO HS [facility] Last Admin: 01/22/18 20:52 Dose: 5 mg Miscellaneous Medication () 1 each OROPHARYNG 0000,0400,1200,1600 [facility] Last Admin: 01/23/18 17:00 Dose: 1 each Morphine Sulfate (Morphine Inj) 2 mg IV.PUSH Q3H PRN PRN Reason: pain 1-10 when npo Last Admin: 01/17/18 08:35 Dose: 2 mg Ondansetron HCl (Zofran Inj) 4 mg IV.PUSH Q6H PRN PRN Reason: NAUSEA OR VOMITING Pantoprazole Sodium (Protonix) 20 mg PO DAILY [facility] Last Admin: 01/23/18 09:15 Dose: Not Given Pharmacy Profile Note (Vancomycin Consult Pharmacy) 1 each OTHER UNSCH PRN PRN Reason: Pharmacy to dose Potassium Bicarb/Potassium Chloride (K-Lyte Cl Eff) 25 meq PO BID [facility] Last Admin: 01/23/18 08:12 Dose: 25 meq Potassium Bicarb/Potassium Chloride (K-Lyte Cl Eff) 50 meq PO UNSCH PRN PRN Reason: For Potassium 3.3 - 3.5 mEq/L Last Admin: 01/23/18 08:12 Dose: 50 meq Potassium Phosphate (K-Phos Original) 2,000 mg PO Q4H PRN PRN Reason: Phosphorus Less Than 2.5 mg/dL Potassium Phosphate (K-Phos Original) 2,000 mg PO UNSCH PRN PRN Reason: SEE LABEL COMMENTS Senna/Docusate Sodium (Diana-Colace) 1 tab PO BID [facility] Last Admin: 01/23/18 09:14 Dose: 1 tab Sennosides (Senokot) 17.2 mg PO Q12H PRN PRN Reason: Moderate Constipation Sodium Chloride (Ns Flush) 2 ml IV.FLUSH BID [facility] Last Admin: 01/23/18 09:15 Dose: 2 ml Sodium Chloride (Ns Flush) 2 ml IV.FLUSH PRN PRN PRN Reason: FLUSH AFTER USING IV ACCESS Tamsulosin HCl (Flomax) 0.4 mg PO DAILY [facility] Last Admin: 01/23/18 09:15 Dose: Not Given Terbutaline Sulfate (Brethine Inj) 1 mg SQ UNSCH PRN PRN Reason: For Extravasation Allergies/Adverse Reactions: Allergies Allergy/AdvReac Type Severity Reaction Status Date / Time amoxicillin Allergy Severe Hives Verified 01/13/18 20:44 Review of Systems unobtainable due to endotracheal tube, unobtainable due to mental status Physical Exam Vital signs: Vital Signs 01/22/18 21:00 01/22/18 22:00 01/22/18 23:00 Temperature Pulse Rate 69 71 73 Respiratory Rate 16 16 16 Blood Pressure 167/71 H 125/76 154/72 H Pulse Oximetry 95 96 96 01/22/18 23:38 01/22/18 23:41 01/23/18 00:00 Temperature 99.0 F Pulse Rate 62 74 Respiratory Rate 16 16 16 Blood Pressure 119/65 Pulse Oximetry 95 95 01/23/18 01:00 01/23/18 02:00 01/23/18 02:40 Temperature Pulse Rate 77 77 Respiratory Rate 16 16 16 Blood Pressure 127/67 117/65 Pulse Oximetry 95 95 01/23/18 03:00 01/23/18 04:00 01/23/18 04:04 Temperature 99.3 F Pulse Rate 71 75 Respiratory Rate 16 16 16 Blood Pressure 140/66 102/62 Pulse Oximetry 96 95 95 01/23/18 05:00 01/23/18 05:08 01/23/18 05:15 Temperature Pulse Rate 55 L 56 L 63 Respiratory Rate 16 16 16 Blood Pressure 179/80 H 178/79 H 174/74 H Pulse Oximetry 97 97 97 01/23/18 05:30 01/23/18 06:00 01/23/18 06:13 Temperature Pulse Rate 75 82 83 Respiratory Rate 16 16 16 Blood Pressure 133/63 113/58 L Pulse Oximetry 97 97 96 01/23/18 07:00 01/23/18 07:31 01/23/18 08:00 Temperature 97.8 F Pulse Rate 77 77 73 Respiratory Rate 12 12 12 Blood Pressure 81/50 L 88/54 L 98/54 L Pulse Oximetry 91 L 93 L 94 L 01/23/18 08:02 01/23/18 08:15 01/23/18 08:30 Temperature Pulse Rate Respiratory Rate 12 Blood Pressure 106/55 L 97/53 L Pulse Oximetry 94 L 01/23/18 08:45 01/23/18 09:00 01/23/18 09:15 Temperature Pulse Rate 81 78 Respiratory Rate 12 Blood Pressure 91/54 L 93/50 L 75/50 L Pulse Oximetry 94 L 94 L 01/23/18 09:30 01/23/18 09:45 01/23/18 09:53 Temperature 99 F Pulse Rate 77 79 Respiratory Rate 12 12 Blood Pressure 78/50 L 87/55 L 87/55 L Pulse Oximetry 94 L 94 L 01/23/18 10:00 01/23/18 10:15 01/23/18 10:17 Temperature 99 F 99 F Pulse Rate 80 67 77 Respiratory Rate 12 12 12 Blood Pressure 98/55 L 98/56 L 87/55 L Pulse Oximetry 88 L 93 L 01/23/18 10:30 01/23/18 10:45 01/23/18 11:00 Temperature Pulse Rate 70 71 71 Respiratory Rate 12 12 12 Blood Pressure 114/62 102/58 L 119/58 L Pulse Oximetry 94 L 92 L 94 L 01/23/18 11:30 01/23/18 11:44 01/23/18 12:00 Temperature 99 F Pulse Rate 72 72 Respiratory Rate 12 12 12 Blood Pressure 127/61 129/74 Pulse Oximetry 96 96 96 01/23/18 12:30 01/23/18 13:00 01/23/18 13:30 Temperature Pulse Rate 78 74 67 Respiratory Rate 12 12 12 Blood Pressure 115/62 115/65 111/64 Pulse Oximetry 95 95 95 01/23/18 14:00 01/23/18 14:04 01/23/18 14:30 Temperature 99 F Pulse Rate 74 65 69 Respiratory Rate 12 12 Blood Pressure 134/70 134/70 126/67 Pulse Oximetry 95 95 95 01/23/18 14:45 01/23/18 15:00 01/23/18 15:30 Temperature Pulse Rate 66 76 74 Respiratory Rate 12 12 12 Blood Pressure 129/71 122/69 124/69 Pulse Oximetry 95 99 99 01/23/18 16:00 01/23/18 16:30 01/23/18 17:00 Temperature 98.7 F Pulse Rate 72 71 88 Respiratory Rate 12 12 21 Blood Pressure 126/72 142/89 H 131/66 Pulse Oximetry 99 99 93 L 01/23/18 17:21 01/23/18 18:00 Temperature 98.7 F Pulse Rate 77 Respiratory Rate 12 Blood Pressure 113/59 L Pulse Oximetry 100 96 Intake & Output 01/23/18 01/23/18 01/24/18 06:59 18:59 06:59 Intake Total 860 / 860 920 / 920 Output Total 1974 / 1974 1395 / 1395 Balance -1115 / -1115 -475 / -475 Weight 59.5 kg Intake: IV 650 / 650 400 / 400 Diprivan 1000 mg/100 ml Inj 1, 100 / 100 000 mg In 100 ml @ 5 MCG/KG/MIN 2.082 mls/hr IV.CONT TITRATE PRN Rx#:[id number] Flexbumin 25% Inj 100 ML @ 60 200 / 200 100 / 100 mls/hr IV.SIG DAILY [facility] Rx#: [id number] Azactam Inj 2 GM In NS Inj 100 100 / 100 ML @ 200 mls/hr IV.SIG Q6H [facility] Rx#:[id number] Teflaro Inj 400 MG In NS Inj 100 / 100 100 ML @ 100 mls/hr IV.SIG Q12H [facility] Rx#:[id number] Merrem Inj 1,000 MG In NS Inj 100 / 100 100 ML @ 200 mls/hr IV.SIG Q12H [facility] Rx#:[id number] KCl 40 mEq Premix Inj 40 meq In 100 / 100 100 ml @ 25 mls/hr IV.SIG Q2H PRN Rx#:[id number] fentaNYL 10 mcg/mL Premix Drip 250 / 250 2,500 mcg In 250 ml @ 50 MCG/HR 5 mls/hr IV.SIG TITRATE PRN Rx #:[id number] Tube Feeding 90 / 90 Tube Irrigant 120 / 120 Water Bolus Amount 120 / 120 Intake (Blood Product) Amt 400 / 400 Rbc As-3 Leukoreduced Unit 400 / 400 [id number] Output: Urine Amount (Catheter) 1974 1375 / 1375 Indwelling Urethral Catheter 1974 1375 / 1375 Wound Drainage 0 / 0 20 / 20 Left Shoulder 0 / 0 0 / 0 Right Shoulder 20 / 20 Other: # Bowel Movements 0 Narrative: The patient is intubated and sedated. Limited exam - Urinary Catheter Management Condom Cath placed during this visit: no Indwelling Urethral Catheter Cath placed during this visit: yes Reason for continuing: Hourly intake/output Insertion date: 01/20/18 Insertion time: 11:30 Objective Laboratory Results - last 24 hr 01/23/18 01/23/18 01/23/18 05:00 05:00 05:59 WBC 6.7 RBC 2.86 L Hgb 7.4 L Hct 22.8 L MCV 79.6 L MCH 25.9 L MCHC 32.5 RDW 19.6 H Plt Count 167 MPV 7.6 Prelim Diff (Auto) Slide review pending Neut % (Auto) 91.1 H Lymph % (Auto) 6.2 L [place] % (Auto) 2.2 Eos % (Auto) 0.2 Baso % (Auto) 0.3 Neut # (Auto) 6.1 Lymph # (Auto) 0.4 L [place] # (Auto) 0.2 Eos # (Auto) 0.0 Baso # (Auto) 0.0 WBC Differential Manual diff final Seg Neuts % (Manual) 78 H Band Neuts % (Manual) 19 H Lymphocytes % (Manual) 2 L Myelocytes % (Man) 1 H Abs Neuts (Manual) 6.6 Nucleated RBCs/100 WBC 1 H Differential Comment . Platelet Estimate Normal Platelet Morphology Normal Puncture Site Right brachial Patient Temperature 98.6 O2 Saturation 97 ABG pH 7.59 H* ABG pCO2 36 L ABG pO2 388 H ABG HCO3 35 H ABG O2 Content 11.3 L ABG Base Excess 12.0 H ABG Methemoglobin 1.0 Hemoglobin 7.6 L* Carboxyhemoglobin 0.0 O2 Delivery Device Ventilator Vent Setting See comment Inspired O2 100 Critical Value Yes Sodium 146 H Potassium 2.9 L* Chloride 102 Carbon Dioxide 36.0 H Anion Gap 8 BUN 58 H Creatinine 1.84 H Estimated GFR 36 L Random Glucose 125 H Calcium 8.5 Random Vancomycin 22.8 Blood Type Blood Type Recheck Antibody Screen MTS Gel Crossmatch 01/23/18 01/23/18 07:05 13:40 WBC RBC Hgb Hct MCV MCH MCHC RDW Plt Count MPV Prelim Diff (Auto) Neut % (Auto) Lymph % (Auto) [place] % (Auto) Eos % (Auto) Baso % (Auto) Neut # (Auto) Lymph # (Auto) [place] # (Auto) Eos # (Auto) Baso # (Auto) WBC Differential Seg Neuts % (Manual) Band Neuts % (Manual) Lymphocytes % (Manual) Myelocytes % (Man) Abs Neuts (Manual) Nucleated RBCs/100 WBC Differential Comment Platelet Estimate Platelet Morphology Puncture Site Patient Temperature O2 Saturation ABG pH ABG pCO2 ABG pO2 ABG HCO3 ABG O2 Content ABG Base Excess ABG Methemoglobin Hemoglobin Carboxyhemoglobin O2 Delivery Device Vent Setting Inspired O2 Critical Value Sodium Potassium 3.9 D Chloride Carbon Dioxide Anion Gap BUN Creatinine Estimated GFR Random Glucose Calcium Random Vancomycin Blood Type O Positive Blood Type Recheck Required Antibody Screen Negative MTS Gel Crossmatch See Detail Microbiology 01/22/18 12:25 Gram Stain - Final Sputum - Endotracheal 01/22/18 17:00 Gram Stain - Final Bronchial - Right 01/20/18 17:19 Aerobic Blood Culture - Preliminary Blood - Peripheral No growth in 3 days Anaerobic Blood Culture - Final S. aureus MRSA 01/20/18 17:14 Aerobic Blood Culture - Preliminary Blood - Peripheral No growth in 3 days Anaerobic Blood Culture - Preliminary No growth in 3 days Review/Management - Diagnosis (1) Disuse muscle atrophy Code(s): M62.50 - Muscle wasting and atrophy, not elsewhere classified, unspecified site Status: Acute Current Visit: Yes (2) Weakness Code(s): R53.1 - Weakness Status: Acute Current Visit: Yes (3) Acute UTI Code(s): N39.0 - Urinary tract infection, site not specified Status: Acute Current Visit: Yes (4) Atrial fibrillation Code(s): I48.91 - Unspecified atrial fibrillation Status: Acute Current Visit: Yes (5) Encephalomalacia on imaging study Code(s): G93.89 - Other specified disorders of brain Status: Acute Current Visit: Yes (6) Renal insufficiency Code(s): N28.9 - Disorder of kidney and ureter, unspecified Status: Acute Current Visit: Yes (7) MRSA (methicillin resistant Staphylococcus aureus) Code(s): A49.02 - Methicillin resistant Staphylococcus aureus infection, unspecified site Status: Acute Current Visit: Yes (8) Sepsis Code(s): A41.9 - Sepsis, unspecified organism Status: Acute Current Visit: Yes (9) Acute renal failure Code(s): N17.9 - Acute kidney failure, unspecified Status: Acute Current Visit: Yes (10) Pulmonary edema Code(s): J81.1 - Chronic pulmonary edema Status: Acute Current Visit: Yes - Review/Management Plan: Subacute progressive weakness apparently occurring couple days after flu vaccine however, found to have MRSA sepsis, shoulder abscess and possibly lumbar spine infection CK level and prealbumin is low disuse atrophy 2/2 sepsis/bedridden Moderate left frontal encephalomalacia appearing to be from meningioma resection Recommendation medical/ID management pt critically ill (4) Atrial fibrillation Qualifiers: Atrial fibrillation type: unspecified Qualified Code(s): I48.91 - Unspecified atrial fibrillation (8) Sepsis Qualifiers: Sepsis type: methicillin resistant Staphylococcus aureus Qualified Code(s): A41.02 - Sepsis due to Methicillin resistant Staphylococcus aureus
[2018-01-24] MEDS: Oral Hygiene Kit OROPHARYNG SCH ×4 (02:12→17:06)
[2018-01-24] MEDS: Aztreonam Inj 2 GM in Sodium Chloride 0.9% Inj 100 ML IV.SIG SCH ×4 (02:20→19:32)
[2018-01-24] MEDS: Levothyroxine 100 MCG Tablet PO SCH (07:08)
[2018-01-24 07:46] LABS: ABG Base Excess 6.7 mmol/L (-2-2); ABG PCO2 54 mmHg (38-42); ABG PO2 138 mmHg (61-120)
[2018-01-24 07:50] LABS: Alanine Aminotransferase 10 U/L (12-78); Albumin 3.1 g/dL (3.4-5.0); Alkaline Phosphatase 75 U/L (45-117); Anion Gap 4 meq/L (5-15); Aspartate Aminotransferase 8 U/L (15-37); Blood Urea Nitrogen 70 mg/dL (7-18); Calcium 8.2 mg/dL (8.5-10.1); Carbon Dioxide 33.9 meq/L (21.0-32.0); Chloride 110 meq/L (98-107); Glomerular Filtration Rate 31 mL/min (>89); Glucose,Random 151 mg/dL (74-106); Magnesium 1.9 mg/dL (1.5-2.5); Phosphorus 3.9 mg/dL (2.5-4.9); Potassium 3.8 meq/L (3.5-5.1); Sodium 148 meq/L (136-145); Total Protein 5.8 g/dL (6.4-8.2)
[2018-01-24 08:07] LABS: Baso % (Auto) 0.4 % (0.0-2.0); Eos # (Auto) 0.1 th/mm3 (0.0-0.4); Hematocrit 26.7 % (39.0-51.0); Hemoglobin 8.3 gm/dL (13.0-17.0); Lymph # (Auto) 0.3 th/mm3 (1.0-4.8); Lymph % (Auto) 5.9 % (9.0-44.0); Mean Corpuscular HGB Conc 31.2 % (32.0-36.0); Mean Corpuscular Hemoglobin 26.3 pg (27.0-34.0); Mean Corpuscular Volume 84.3 fL (80.0-100.0); Mean Platelet Volume 7.9 fL (7.0-11.0); Mono # (Auto) 0.2 th/mm3 (0.0-0.9); Mono % (Auto) 2.7 % (0.0-8.0); Platelet Count 155 th/mm3 (150-450); Red Blood Count 3.16 mil/mm3 (4.50-5.90); White Blood Count 5.6 th/mm3 (4.0-11.0)
[2018-01-24] MEDS: Albumin Human 25% Inj 100 ML IV.SIG SCH (08:10)
[2018-01-24] MEDS: Potassium Chloride 25 MEQ Effervescent Tablet PO SCH ×2 (08:11→20:29)
[2018-01-24] MEDS: Citalopram 20 MG Tablet PO SCH (08:12)
[2018-01-24] MEDS: amLODIPine 5 MG Tablet PO SCH (08:12)
[2018-01-24] MEDS: Pantoprazole Sodium 20 MG DR Tablet PO SCH (08:12)
[2018-01-24] MEDS: Senna/Docusate Sodium 8.6/50 MG Tablet PO SCH ×2 (08:12→20:30)
--- NOTE | 2018-01-24 08:12 | XR ---
EXAM DATE: 01/24/2018 8:07 AM EST AGE/SEX: 82 years / Male INDICATIONS: Shortness of breath. CLINICAL DATA: This is the patient's subsequent encounter. Patient reports that signs and symptoms h ave been present for 1 week and indicates a pain score of Nonresponsive. MEDICAL/SURGICAL HISTORY: Hypertension. AFIB. None. COMPARISON: C, CHEST 1V SINGLE AP, 01/23/2018. . FINDINGS: Endotracheal tube is present with tip several centimeters above the karan. Nasogastric tube descends to the stomach. Central line is in good stable position. Hazy bilateral pleural parenchymal opacity is grossly unchanged, slightly worse on the right than the left. Cardiac contours are stable. Pigtail drainage catheters overlie the shoulder regions bilaterally. CONCLUSION: Stable chest appearance Electronically signed by: Misbah Sanchez MD 01/24/2018 8:10 AM EST
[2018-01-24] MEDS: Chlorhexidine 0.12% Oral Kit 15 ML UDC OROPHARYNG SCH ×2 (08:17→19:33)
--- NOTE | 2018-01-24 08:21 | P.PNNEU ---
Subjective Subjective Comments: no acute events Active Medications: Active Medications Acetaminophen (Tylenol) 650 mg PO Q4H PRN PRN Reason: Temp > 100.4 Hydrocodone Bitart/Acetaminophen ([place] 5/325) 1 tab PO Q4H PRN PRN Reason: PAIN LESS THAN 5 ON SCALE Last Admin: 01/19/18 08:04 Dose: 1 tab Hydrocodone Bitart/Acetaminophen ([place] 5/325) 2 tab PO Q6H PRN PRN Reason: PAIN SCALE 5 TO 10 Acetylcysteine (Mucomyst 10% Neb) 2 ml NEB Q6HR NEB [facility] Last Admin: 01/24/18 04:26 Dose: 2 ml Al Hydroxide/Mg Hydroxide (Milk Of Magnjayson Liq) 30 ml PO Q12H PRN PRN Reason: Mild Constipation Albuterol (Duoneb Neb (Prn)) 1 ampul NEB Q2HR NEB PRN PRN Reason: WHEEZING Albuterol (Duoneb Neb (Mauro)) 1 ampul NEB Q6HR NEB [facility] Last Admin: 01/24/18 04:26 Dose: 1 ampul Amlodipine Besylate (Norvasc) 10 mg PO DAILY [facility] Last Admin: 01/23/18 09:15 Dose: Not Given Bisacodyl (Dulcolax Supp) 10 mg RECTAL DAILY PRN PRN Reason: SEVERE CONSITIPATION Chlorhexidine Gluconate (Peridex 0.12% Oral Kit) 15 ml OROPHARYNG BID@0800, 2000 [facility] Last Admin: 01/23/18 20:08 Dose: 15 ml Citalopram Hydrobromide (Celexa) 20 mg PO DAILY [facility] Last Admin: 01/23/18 09:14 Dose: 20 mg Furosemide (Lasix Inj) 40 mg IV.PUSH DAILY [facility] Last Admin: 01/23/18 09:14 Dose: 40 mg Hydralazine HCl (Apresoline Inj) 20 mg IV.PUSH Q4H PRN PRN Reason: SBP>160, DBP>90 Last Admin: 01/23/18 05:18 Dose: 20 mg Sodium Chloride (Ns Inj) 500 mls @ 30 mls/hr IV.SIG .Q10H [facility] Propofol (Diprivan 1000 Mg/100 Ml Inj) 1,000 mg in 100 mls @ 2.082 mls/hr IV.CONT TITRATE PRN; Protocol PRN Reason: Per Protocol Last Titration: 01/23/18 01:35 Dose: Infused Fentanyl (Fentanyl 10 Mcg/Ml Premix Drip) 2,500 mcg in 250 mls @ 5 mls/hr IV.SIG TITRATE PRN; Protocol PRN Reason: Per Protocol Last Titration: 01/23/18 13:45 Dose: 150 mcg/hr, 15 mls/hr Midazolam HCl (Versed Inj) 100 mg in 100 mls @ 2 mls/hr IV.CONT TITRATE PRN; Protocol PRN Reason: See protocol Last Titration: 01/23/18 07:00 Dose: 0 mg/hr, 0 mls/hr Magnesium Sulfate 4 gm/ Sodium (Chloride) 100 mls @ 50 mls/hr IV.SIG UNSCH PRN PRN Reason: For Magnesium 0.9 - 1.1 mg/dL Magnesium Sulfate 2 gm/ Sodium (Chloride) 100 mls @ 50 mls/hr IV.SIG UNSCH PRN PRN Reason: For Magnesium 1.2 - 1.6 mg/dL Potassium Chloride (Kcl 20 Meq Premix Inj) 20 meq in 100 mls @ 50 mls/hr IV.SIG Q2H PRN PRN Reason: For Potassium 3.3 - 3.5 mEq/L Potassium Chloride (Kcl 40 Meq Premix Inj) 40 meq in 100 mls @ 25 mls/hr IV.SIG UNSCH PRN PRN Reason: For Potassium 3.3 - 3.5 mEq/L Potassium Chloride (Kcl 20 Meq Premix Inj) 20 meq in 100 mls @ 50 mls/hr IV.SIG Q2H PRN PRN Reason: For Potassium 2.8 - 3.2 mEq/L Potassium Phosphate 30 mmol/ (Sodium Chloride) 260 mls @ 42 mls/hr IV.SIG UNSCH PRN PRN Reason: SEE LABEL COMMENTS Potassium Chloride (Kcl 40 Meq Premix Inj) 40 meq in 100 mls @ 25 mls/hr IV.SIG Q2H PRN PRN Reason: For Potassium 2.8 - 3.2 mEq/L Last Infusion: 01/23/18 11:18 Dose: Infused Sodium Phosphate 30 mmol/ (Sodium Chloride) 260 mls @ 42 mls/hr IV.SIG UNSCH PRN PRN Reason: For Phosphorus < 2.5 mg/dL Albumin Human (Flexbumin 25% Inj) 100 mls @ 60 mls/hr IV.SIG DAILY [facility] Last Infusion: 01/23/18 10:55 Dose: Infused Norepinephrine Bitartrate (Levophed-Dextrose 4 Mg/250 Ml Drip) 4 mg in 250 mls @ 7.5 mls/hr IV.SIG TITRATE PRN; Protocol PRN Reason: Per Protocol Ceftaroline Fosamil 400 mg/ (Sodium Chloride) 100 mls @ 100 mls/hr IV.SIG Q12H [facility] Last Admin: 01/24/18 02:20 Dose: 100 mls/hr Aztreonam 2 gm/ Sodium (Chloride) 100 mls @ 200 mls/hr IV.SIG Q6H [facility] Last Infusion: 01/24/18 02:50 Dose: Infused Vancomycin HCl 1,250 mg/ (Sodium Chloride) 262.5 mls @ 250 mls/hr IV.SIG ONCE ONE Stop: 01/24/18 13:02 Lactulose (Lactulose Liq) 30 ml PO DAILY PRN PRN Reason: SEVERE CONSITIPATION Levothyroxine Sodium (Synthroid) 100 mcg PO DAILY@0600 [facility] Last Admin: 01/24/18 07:08 Dose: 100 mcg Magnesium Oxide (Mag-Ox) 800 mg PO UNSCH PRN PRN Reason: For Magnesium 1.2 - 1.6 mg/dL Melatonin (Melatonin) 5 mg PO HS [facility] Last Admin: 01/23/18 20:08 Dose: 5 mg Miscellaneous Medication () 1 each OROPHARYNG 0000,0400,1200,1600 [facility] Last Admin: 01/24/18 06:54 Dose: 1 each Morphine Sulfate (Morphine Inj) 2 mg IV.PUSH Q3H PRN PRN Reason: pain 1-10 when npo Last Admin: 01/17/18 08:35 Dose: 2 mg Ondansetron HCl (Zofran Inj) 4 mg IV.PUSH Q6H PRN PRN Reason: NAUSEA OR VOMITING Pantoprazole Sodium (Protonix) 20 mg PO DAILY [facility] Last Admin: 01/23/18 09:15 Dose: Not Given Pharmacy Profile Note (Vancomycin Consult Pharmacy) 1 each OTHER UNSCH PRN PRN Reason: Pharmacy to dose Potassium Bicarb/Potassium Chloride (K-Lyte Cl Eff) 25 meq PO BID [facility] Last Admin: 01/23/18 20:08 Dose: 25 meq Potassium Bicarb/Potassium Chloride (K-Lyte Cl Eff) 50 meq PO UNSCH PRN PRN Reason: For Potassium 3.3 - 3.5 mEq/L Last Admin: 01/23/18 08:12 Dose: 50 meq Potassium Phosphate (K-Phos Original) 2,000 mg PO Q4H PRN PRN Reason: Phosphorus Less Than 2.5 mg/dL Potassium Phosphate (K-Phos Original) 2,000 mg PO UNSCH PRN PRN Reason: SEE LABEL COMMENTS Senna/Docusate Sodium (Diana-Colace) 1 tab PO BID [facility] Last Admin: 01/23/18 20:09 Dose: 1 tab Sennosides (Senokot) 17.2 mg PO Q12H PRN PRN Reason: Moderate Constipation Sodium Chloride (Ns Flush) 2 ml IV.FLUSH BID [facility] Last Admin: 01/23/18 20:09 Dose: 2 ml Sodium Chloride (Ns Flush) 2 ml IV.FLUSH PRN PRN PRN Reason: FLUSH AFTER USING IV ACCESS Last Admin: 01/23/18 20:08 Dose: 2 ml Tamsulosin HCl (Flomax) 0.4 mg PO DAILY [facility] Last Admin: 01/23/18 09:15 Dose: Not Given Terbutaline Sulfate (Brethine Inj) 1 mg SQ UNSCH PRN PRN Reason: For Extravasation Allergies/Adverse Reactions: Allergies Allergy/AdvReac Type Severity Reaction Status Date / Time amoxicillin Allergy Severe Hives Verified 01/13/18 20:44 Review of Systems unobtainable due to endotracheal tube, unobtainable due to mental status Physical Exam Vital signs: Vital Signs 01/23/18 08:30 01/23/18 08:45 01/23/18 09:00 Temperature Pulse Rate 81 Respiratory Rate 12 Blood Pressure 97/53 L 91/54 L 93/50 L Pulse Oximetry 94 L 01/23/18 09:15 01/23/18 09:30 01/23/18 09:45 Temperature Pulse Rate 78 77 Respiratory Rate 12 Blood Pressure 75/50 L 78/50 L 87/55 L Pulse Oximetry 94 L 94 L 01/23/18 09:53 01/23/18 10:00 01/23/18 10:15 Temperature 99 F 99 F Pulse Rate 79 80 67 Respiratory Rate 12 12 12 Blood Pressure 87/55 L 98/55 L 98/56 L Pulse Oximetry 94 L 88 L 93 L 11/29/18 10:17 01/23/18 10:30 01/23/18 10:45 Temperature 99 F Pulse Rate 77 70 71 Respiratory Rate 12 12 12 Blood Pressure 87/55 L 114/62 102/58 L Pulse Oximetry 94 L 92 L 01/23/18 11:00 01/23/18 11:30 01/23/18 11:44 Temperature Pulse Rate 71 72 Respiratory Rate 12 12 12 Blood Pressure 119/58 L 127/61 Pulse Oximetry 94 L 96 96 01/23/18 12:00 01/23/18 12:30 01/23/18 13:00 Temperature 99 F Pulse Rate 72 78 74 Respiratory Rate 12 12 12 Blood Pressure 129/74 115/62 115/65 Pulse Oximetry 96 95 95 01/23/18 13:30 01/23/18 14:00 01/23/18 14:04 Temperature 99 F Pulse Rate 67 74 65 Respiratory Rate 12 12 Blood Pressure 111/64 134/70 134/70 Pulse Oximetry 95 95 95 01/23/18 14:30 01/23/18 14:45 01/23/18 15:00 Temperature Pulse Rate 69 66 76 Respiratory Rate 12 12 12 Blood Pressure 126/67 129/71 122/69 Pulse Oximetry 95 95 99 01/23/18 15:30 01/23/18 16:00 01/23/18 16:30 Temperature Pulse Rate 74 72 71 Respiratory Rate 12 12 12 Blood Pressure 124/69 126/72 142/89 H Pulse Oximetry 99 99 99 01/23/18 17:00 01/23/18 17:21 01/23/18 18:00 Temperature 98.7 F 98.7 F Pulse Rate 88 77 Respiratory Rate 21 12 Blood Pressure 131/66 113/59 L Pulse Oximetry 93 L 100 96 01/23/18 19:00 01/23/18 20:00 01/23/18 20:07 Temperature 98.8 F Pulse Rate 77 75 81 Respiratory Rate 12 Blood Pressure 108/55 L 126/67 Pulse Oximetry 95 95 95 01/23/18 21:00 01/23/18 22:00 01/23/18 23:00 Temperature Pulse Rate 86 77 78 Respiratory Rate Blood Pressure 101/57 L 95/53 L 112/58 L Pulse Oximetry 95 95 96 01/24/18 00:00 01/24/18 00:09 01/24/18 01:00 Temperature 98.7 F 98.7 F Pulse Rate 86 84 Respiratory Rate 12 Blood Pressure 97/54 L 89/52 L Pulse Oximetry 94 L 95 96 01/24/18 02:00 01/24/18 03:00 01/24/18 04:00 Temperature 98.0 F Pulse Rate 75 77 78 Respiratory Rate Blood Pressure 89/55 L 102/59 L 112/64 Pulse Oximetry 98 99 98 01/24/18 04:27 01/24/18 05:00 01/24/18 06:00 Temperature Pulse Rate 76 89 79 Respiratory Rate 12 Blood Pressure 90/54 L Pulse Oximetry 99 95 93 L Intake & Output 01/23/18 01/24/18 01/24/18 18:59 06:59 18:59 Intake Total 920 / 920 1415 / 1415 Output Total 1395 / 1395 560 / 560 Balance -475 / -475 855 / 855 Weight 70 kg Intake: IV 400 / 400 200 / 200 Flexbumin 25% Inj 100 ML @ 60 100 / 100 mls/hr IV.SIG DAILY [facility] Rx#: [id number] Azactam Inj 2 GM In NS Inj 100 100 / 100 200 / 200 ML @ 200 mls/hr IV.SIG Q6H [facility] Rx#:[id number] Teflaro Inj 400 MG In NS Inj 100 / 100 100 ML @ 100 mls/hr IV.SIG Q12H [facility] Rx#:[id number] KCl 40 mEq Premix Inj 40 meq In 100 / 100 100 ml @ 25 mls/hr IV.SIG Q2H PRN Rx#:[id number] Tube Feeding 755 / 755 Water Bolus Amount 120 / 120 460 / 460 Intake (Blood Product) Amt 400 / 400 Rbc As-3 Leukoreduced Unit 400 / 400 [id number] Output: Urine Amount (Catheter) 1375 / 1375 550 / 550 Indwelling Urethral Catheter 1375 / 1375 550 / 550 Wound Drainage 10 10 Left Shoulder 0 / 0 0 / 0 Right Shoulder Other: Date of Last Bowel Movement 01/20/18 # Bowel Movements 0 Narrative: rrr in nad awake alert, intubated, appears to possibly follow some simple request, ou sluggishly reactive, not moving any limbs - Constitutional no acute distress - Routine HEENT Exam Head: Present: normocephalic - Urinary Catheter Management Condom Cath placed during this visit: no Indwelling Urethral Catheter Cath placed during this visit: yes Reason for continuing: Hourly intake/output Insertion date: 01/20/18 Insertion time: 11:30 Objective Laboratory Results - last 24 hr 01/23/18 01/23/18 01/24/18 07:05 13:40 05:34 WBC RBC Hgb Hct MCV MCH MCHC RDW Plt Count MPV Neut % (Auto) Lymph % (Auto) [place] % (Auto) Eos % (Auto) Baso % (Auto) Neut # (Auto) Lymph # (Auto) [place] # (Auto) Eos # (Auto) Baso # (Auto) WBC Differential Differential Comment Puncture Site Patient Temperature O2 Saturation ABG pH ABG pCO2 ABG pO2 ABG HCO3 ABG O2 Content ABG Base Excess ABG Methemoglobin Blane Test Hemoglobin Carboxyhemoglobin O2 Delivery Device Vent Setting Inspired O2 Critical Value Sodium Potassium 3.9 D Chloride Carbon Dioxide Anion Gap BUN Creatinine Estimated GFR Random Glucose Calcium Phosphorus Magnesium Total Bilirubin AST ALT Alkaline Phosphatase Total Creatine Kinase Total Protein Albumin Random Vancomycin 17.6 Blood Type O Positive Blood Type Recheck Required Antibody Screen Negative MTS Gel Crossmatch See Detail 01/24/18 01/24/18 01/24/18 05:34 05:34 07:36 WBC RBC Hgb Hct MCV MCH MCHC RDW Plt Count MPV Neut % (Auto) Lymph % (Auto) [place] % (Auto) Eos % (Auto) Baso % (Auto) Neut # (Auto) Lymph # (Auto) [place] # (Auto) Eos # (Auto) Baso # (Auto) WBC Differential Differential Comment Puncture Site Right radial Patient Temperature 98.6 O2 Saturation 96 ABG pH 7.38 ABG pCO2 54 H* ABG pO2 138 H ABG HCO3 32 H ABG O2 Content 16.1 ABG Base Excess 6.7 H ABG Methemoglobin 1.5 Blane Test Present Hemoglobin 11.8 L Carboxyhemoglobin 1.0 O2 Delivery Device Vent Vent Setting Prvc 12/500/1.1/+10 Inspired O2 50 Critical Value Yes Sodium 148 H Potassium 3.8 Chloride 110 H D Carbon Dioxide 33.9 H Anion Gap 4 L BUN 70 H Creatinine 2.05 H Estimated GFR 31 L Random Glucose 151 H Calcium 8.2 L Phosphorus 3.9 Magnesium 1.9 Total Bilirubin 1.4 H AST 8 L ALT 10 L Alkaline Phosphatase 75 Total Creatine Kinase 18 L Total Protein 5.8 L Albumin 3.1 L Random Vancomycin Blood Type Blood Type Recheck Antibody Screen MTS Gel Crossmatch 01/24/18 07:58 WBC 5.6 RBC 3.16 L Hgb 8.3 L Hct 26.7 L MCV 84.3 D MCH 26.3 L MCHC 31.2 L RDW 20.0 H Plt Count 155 MPV 7.9 Neut % (Auto) 90.0 H Lymph % (Auto) 5.9 L [place] % (Auto) 2.7 Eos % (Auto) 1.0 Baso % (Auto) 0.4 Neut # (Auto) 5.0 Lymph # (Auto) 0.3 L [place] # (Auto) 0.2 Eos # (Auto) 0.1 Baso # (Auto) 0.0 WBC Differential . Differential Comment Auto diff final Puncture Site Patient Temperature O2 Saturation ABG pH ABG pCO2 ABG pO2 ABG HCO3 ABG O2 Content ABG Base Excess ABG Methemoglobin Blane Test Hemoglobin Carboxyhemoglobin O2 Delivery Device Vent Setting Inspired O2 Critical Value Sodium Potassium Chloride Carbon Dioxide Anion Gap BUN Creatinine Estimated GFR Random Glucose Calcium Phosphorus Magnesium Total Bilirubin AST ALT Alkaline Phosphatase Total Creatine Kinase Total Protein Albumin Random Vancomycin Blood Type Blood Type Recheck Antibody Screen MTS Gel Crossmatch Microbiology 01/22/18 12:25 Gram Stain - Final Sputum - Endotracheal 01/22/18 17:00 Gram Stain - Final Bronchial - Right 01/20/18 17:19 Aerobic Blood Culture - Preliminary Blood - Peripheral No growth in 3 days Anaerobic Blood Culture - Final S. aureus MRSA 01/20/18 17:14 Aerobic Blood Culture - Preliminary Blood - Peripheral No growth in 3 days Anaerobic Blood Culture - Preliminary No growth in 3 days Review/Management - Diagnosis (1) Disuse muscle atrophy Code(s): M62.50 - Muscle wasting and atrophy, not elsewhere classified, unspecified site Status: Acute Current Visit: Yes (2) Weakness Code(s): R53.1 - Weakness Status: Acute Current Visit: Yes (3) Acute UTI Code(s): N39.0 - Urinary tract infection, site not specified Status: Acute Current Visit: Yes (4) Atrial fibrillation Code(s): I48.91 - Unspecified atrial fibrillation Status: Acute Current Visit: Yes (5) Encephalomalacia on imaging study Code(s): G93.89 - Other specified disorders of brain Status: Acute Current Visit: Yes (6) Renal insufficiency Code(s): N28.9 - Disorder of kidney and ureter, unspecified Status: Acute Current Visit: Yes (7) MRSA (methicillin resistant Staphylococcus aureus) Code(s): A49.02 - Methicillin resistant Staphylococcus aureus infection, unspecified site Status: Acute Current Visit: Yes (8) Sepsis Code(s): A41.9 - Sepsis, unspecified organism Status: Acute Current Visit: Yes (9) Acute renal failure Code(s): N17.9 - Acute kidney failure, unspecified Status: Acute Current Visit: Yes (10) Pulmonary edema Code(s): J81.1 - Chronic pulmonary edema Status: Acute Current Visit: Yes - Review/Management Plan: Subacute progressive weakness apparently occurring couple days after flu vaccine however, found to have MRSA sepsis, shoulder abscess and possibly lumbar spine infection CK level and prealbumin is low disuse atrophy 2/2 sepsis/bedridden Moderate left frontal encephalomalacia appearing to be from meningioma resection Recommendation neuro unchanged medical/ID management pt critically ill d/w pt's son at bedside, rn (4) Atrial fibrillation Qualifiers: Atrial fibrillation type: unspecified Qualified Code(s): I48.91 - Unspecified atrial fibrillation (8) Sepsis Qualifiers: Sepsis type: methicillin resistant Staphylococcus aureus Qualified Code(s): A41.02 - Sepsis due to Methicillin resistant Staphylococcus aureus
--- NOTE | 2018-01-24 10:16 | P.PNNP ---
Subjective Interval history: Patient is on ventilator, chest x-ray showed right pleural effusion, MRI did not reveal any new findings Physical Exam Vital signs: Vital Signs 01/23/18 10:15 01/23/18 10:17 01/23/18 10:30 Temperature 99 F Pulse Rate 67 77 70 Respiratory Rate 12 12 12 Blood Pressure 98/56 L 87/55 L 114/62 Pulse Oximetry 93 L 94 L 01/23/18 10:45 01/23/18 11:00 01/23/18 11:30 Temperature Pulse Rate 71 71 72 Respiratory Rate 12 12 12 Blood Pressure 102/58 L 119/58 L 127/61 Pulse Oximetry 92 L 94 L 96 01/23/18 11:44 01/23/18 12:00 01/23/18 12:30 Temperature 99 F Pulse Rate 72 78 Respiratory Rate 12 12 12 Blood Pressure 129/74 115/62 Pulse Oximetry 96 96 95 01/23/18 13:00 01/23/18 13:30 01/23/18 14:00 Temperature 99 F Pulse Rate 74 67 74 Respiratory Rate 12 12 12 Blood Pressure 115/65 111/64 134/70 Pulse Oximetry 95 95 95 01/23/18 14:04 01/23/18 14:30 01/23/18 14:45 Temperature Pulse Rate 65 69 66 Respiratory Rate 12 12 Blood Pressure 134/70 126/67 129/71 Pulse Oximetry 95 95 95 01/23/18 15:00 01/23/18 15:30 01/23/18 16:00 Temperature Pulse Rate 76 74 72 Respiratory Rate 12 12 12 Blood Pressure 122/69 124/69 126/72 Pulse Oximetry 99 99 99 01/23/18 16:30 01/23/18 17:00 01/23/18 17:21 Temperature 98.7 F Pulse Rate 71 88 Respiratory Rate 12 21 Blood Pressure 142/89 H 131/66 Pulse Oximetry 99 93 L 100 01/23/18 18:00 01/23/18 19:00 01/23/18 20:00 Temperature 98.7 F 98.8 F Pulse Rate 77 77 75 Respiratory Rate 12 Blood Pressure 113/59 L 108/55 L 126/67 Pulse Oximetry 96 95 95 01/23/18 20:07 01/23/18 21:00 01/23/18 22:00 Temperature Pulse Rate 81 86 77 Respiratory Rate 12 Blood Pressure 101/57 L 95/53 L Pulse Oximetry 95 95 95 01/23/18 23:00 01/24/18 00:00 01/24/18 00:09 Temperature 98.7 F Pulse Rate 78 86 Respiratory Rate 12 Blood Pressure 112/58 L 97/54 L Pulse Oximetry 96 94 L 95 01/24/18 01:00 01/24/18 02:00 01/24/18 03:00 Temperature 98.7 F Pulse Rate 84 75 77 Respiratory Rate Blood Pressure 89/52 L 89/55 L 102/59 L Pulse Oximetry 96 98 99 01/24/18 04:00 01/24/18 04:27 01/24/18 05:00 Temperature 98.0 F Pulse Rate 78 76 89 Respiratory Rate 12 Blood Pressure 112/64 Pulse Oximetry 98 99 95 01/24/18 06:00 01/24/18 08:39 Temperature Pulse Rate 79 83 Respiratory Rate 13 Blood Pressure 90/54 L Pulse Oximetry 93 L 96 Intake & Output 01/23/18 01/24/18 01/24/18 18:59 06:59 18:59 Intake Total 920 / 920 1415 / 1415 Output Total 1395 / 1395 560 / 560 Balance -475 / -475 855 / 855 Weight 70 kg Intake: IV 400 / 400 200 / 200 Flexbumin 25% Inj 100 ML @ 60 100 / 100 mls/hr IV.SIG DAILY [facility] Rx#: [id number] Azactam Inj 2 GM In NS Inj 100 100 / 100 200 / 200 ML @ 200 mls/hr IV.SIG Q6H [facility] Rx#:[id number] Teflaro Inj 400 MG In NS Inj 100 / 100 100 ML @ 100 mls/hr IV.SIG Q12H [facility] Rx#:[id number] KCl 40 mEq Premix Inj 40 meq In 100 / 100 100 ml @ 25 mls/hr IV.SIG Q2H PRN Rx#:[id number] Tube Feeding 755 / 755 Water Bolus Amount 120 / 120 460 / 460 Intake (Blood Product) Amt 400 / 400 Rbc As-3 Leukoreduced Unit 400 / 400 [id number] Output: Urine Amount (Catheter) 1375 / 1375 550 / 550 Indwelling Urethral Catheter 1375 / 1375 550 / 550 Wound Drainage 20 / 20 10 / 10 Left Shoulder 0 / 0 0 / 0 Right Shoulder 20 20 10 / 10 Other: Date of Last Bowel Movement 01/20/18 # Bowel Movements 0 Narrative: Intubated in nad awake alert, intubated, Chest and lung: Diminished at bases CVS: S1-S2 regular rate and rhythm Abdomen: Soft nontender bowel sounds present Extremity, mild upper extremity edema - Urinary Catheter Management Condom Cath placed during this visit: no Indwelling Urethral Catheter Cath placed during this visit: yes Reason for continuing: Hourly intake/output Insertion date: 01/20/18 Insertion time: 11:30 Assessment and Plan - Assessment (1) Acute renal failure Code(s): N17.9 - Acute kidney failure, unspecified Status: Acute (2) Atrial fibrillation Code(s): I48.91 - Unspecified atrial fibrillation Status: Acute Qualifiers: Atrial fibrillation type: unspecified Qualified Code(s): I48.91 - Unspecified atrial fibrillation (3) Sepsis Code(s): A41.9 - Sepsis, unspecified organism Status: Acute Qualifiers: Sepsis type: methicillin resistant Staphylococcus aureus Qualified Code(s) : A41.02 - Sepsis due to Methicillin resistant Staphylococcus aureus - Plan Patient is a 82-year-old male with history of renal insufficiency which is getting worse now most likely due to underlying sepsis MRSA, he is getting vancomycin was hypotensive earlier but improved he is on albumin, , creatinine is 2 on Lasix and last shift, he was seen in MRI machine and spoke with NGUYỄN Ingram Renal output 1.9 L on Lasix now 40 mg daily, potassium replacement MRI done of lumbar spine results noted no new focus from
--- NOTE | 2018-01-24 11:50 | P.PNOP ---
Subjective Interval history: The patient is intubated and alert. The patient is resting in bed with family at bedside. Physical Exam Vital signs: Vital Signs 01/23/18 11:44 01/23/18 12:00 01/23/18 12:30 Temperature 99 F Pulse Rate 72 78 Respiratory Rate 12 12 12 Blood Pressure 129/74 115/62 Pulse Oximetry 96 96 95 01/23/18 13:00 01/23/18 13:30 01/23/18 14:00 Temperature 99 F Pulse Rate 74 67 74 Respiratory Rate 12 12 12 Blood Pressure 115/65 111/64 134/70 Pulse Oximetry 95 95 95 01/23/18 14:04 01/23/18 14:30 01/23/18 14:45 Temperature Pulse Rate 65 69 66 Respiratory Rate 12 12 Blood Pressure 134/70 126/67 129/71 Pulse Oximetry 95 95 95 01/23/18 15:00 01/23/18 15:30 01/23/18 16:00 Temperature Pulse Rate 76 74 72 Respiratory Rate 12 12 12 Blood Pressure 122/69 124/69 126/72 Pulse Oximetry 99 99 99 01/23/18 16:30 01/23/18 17:00 01/23/18 17:21 Temperature 98.7 F Pulse Rate 71 88 Respiratory Rate 12 21 Blood Pressure 142/89 H 131/66 Pulse Oximetry 99 93 L 100 01/23/18 18:00 01/23/18 19:00 01/23/18 20:00 Temperature 98.7 F 98.8 F Pulse Rate 77 77 75 Respiratory Rate 12 Blood Pressure 113/59 L 108/55 L 126/67 Pulse Oximetry 96 95 95 01/23/18 20:07 01/23/18 21:00 01/23/18 22:00 Temperature Pulse Rate 81 86 77 Respiratory Rate 12 Blood Pressure 101/57 L 95/53 L Pulse Oximetry 95 95 95 01/23/18 23:00 01/24/18 00:00 01/24/18 00:09 Temperature 98.7 F Pulse Rate 78 86 Respiratory Rate 12 Blood Pressure 112/58 L 97/54 L Pulse Oximetry 96 94 L 95 01/24/18 01:00 01/24/18 02:00 01/24/18 03:00 Temperature 98.7 F Pulse Rate 84 75 77 Respiratory Rate Blood Pressure 89/52 L 89/55 L 102/59 L Pulse Oximetry 96 98 99 01/24/18 04:00 01/24/18 04:27 01/24/18 05:00 Temperature 98.0 F Pulse Rate 78 76 89 Respiratory Rate 12 Blood Pressure 112/64 Pulse Oximetry 98 99 95 01/24/18 06:00 01/24/18 07:00 01/24/18 08:00 Temperature 99.1 F Pulse Rate 79 80 78 Respiratory Rate Blood Pressure 90/54 L 109/58 L 99/54 L Pulse Oximetry 93 L 95 95 01/24/18 08:39 01/24/18 09:00 01/24/18 10:00 Temperature Pulse Rate 83 82 81 Respiratory Rate 13 Blood Pressure 103/57 L 105/58 L Pulse Oximetry 96 95 96 Intake & Output 01/23/18 01/24/18 01/24/18 18:59 06:59 18:59 Intake Total 920 / 920 1415 / 1415 650 / 650 Output Total 1395 / 1395 560 / 560 Balance -475 / -475 855 / 855 650 / 650 Weight 70 kg Intake: IV 400 / 400 200 / 200 650 / 650 Versed Inj 100 mg In 100 ml @ 2 100 / 100 MG/HR 2 mls/hr IV.CONT TITRATE PRN Rx#:[id number] Flexbumin 25% Inj 100 ML @ 60 100 / 100 100 / 100 mls/hr IV.SIG DAILY CHAYO Rx#: [id number] Azactam Inj 2 GM In NS Inj 100 100 / 100 200 / 200 100 / 100 ML @ 200 mls/hr IV.SIG Q6H [facility]O Rx#:[id number] Teflaro Inj 400 MG In NS Inj 100 / 100 100 / 100 100 ML @ 100 mls/hr IV.SIG Q12H [facility]O Rx#:[id number] KCl 40 mEq Premix Inj 40 meq In 100 / 100 100 ml @ 25 mls/hr IV.SIG Q2H PRN Rx#:[id number] NS Inj 250 ML @ 15 mls/hr IV. 250 / 250 SIG ONCE CHAYO Rx#:[id number] Tube Feeding 755 / 755 Water Bolus Amount 120 / 120 460 / 460 Intake (Blood Product) Amt 400 / 400 Rbc As-3 Leukoreduced Unit 400 / 400 [id number] Output: Urine Amount (Catheter) 1375 / 1375 550 / 550 Indwelling Urethral Catheter 1375 / 1375 550 / 550 Wound Drainage Left Shoulder 0 / 0 0 / 0 Right Shoulder Other: Date of Last Bowel Movement 01/20/18 01/20/18 # Bowel Movements 0 Narrative: Patient intubated and on vent. Right shoulder dressing is intact. Incision is well approximated with sutures intact. There is no erythema to the right shoulder. The patient does have a drain that is draining a moderate amount of serosanguineous type drainage. Previous effusion has improved with drain. Patient has 2+ radial and pedal pulses. Mild swelling to the the left shoulder. Extremities and skin are warm and dry. - Urinary Catheter Management Condom Cath placed during this visit: no Indwelling Urethral Catheter Cath placed during this visit: yes Reason for continuing: Hourly intake/output Insertion date: 01/20/18 Insertion time: 11:30 Results - Labs CBC & Chem 7: 01/24/18 07:58 01/24/18 05:34 Laboratory Results - last 24 hr 01/23/18 01/24/18 01/24/18 13:40 05:34 05:34 WBC RBC Hgb Hct MCV MCH MCHC RDW Plt Count MPV Neut % (Auto) Lymph % (Auto) [place] % (Auto) Eos % (Auto) Baso % (Auto) Neut # (Auto) Lymph # (Auto) [place] # (Auto) Eos # (Auto) Baso # (Auto) WBC Differential Differential Comment Puncture Site Patient Temperature O2 Saturation ABG pH ABG pCO2 ABG pO2 ABG HCO3 ABG O2 Content ABG Base Excess ABG Methemoglobin Blane Test Hemoglobin Carboxyhemoglobin O2 Delivery Device Vent Setting Inspired O2 Critical Value Sodium 148 H Potassium 3.9 D 3.8 Chloride 110 H D Carbon Dioxide 33.9 H Anion Gap 4 L BUN 70 H Creatinine 2.05 H Estimated GFR 31 L Random Glucose 151 H Calcium 8.2 L Phosphorus 3.9 Magnesium 1.9 Total Bilirubin 1.4 H AST 8 L ALT 10 L Alkaline Phosphatase 75 Total Creatine Kinase Total Protein 5.8 L Albumin 3.1 L Random Vancomycin 17.6 01/24/18 01/24/18 01/24/18 05:34 07:36 07:58 WBC 5.6 RBC 3.16 L Hgb 8.3 L Hct 26.7 L MCV 84.3 D MCH 26.3 L MCHC 31.2 L RDW 20.0 H Plt Count 155 MPV 7.9 Neut % (Auto) 90.0 H Lymph % (Auto) 5.9 L [place] % (Auto) 2.7 Eos % (Auto) 1.0 Baso % (Auto) 0.4 Neut # (Auto) 5.0 Lymph # (Auto) 0.3 L [place] # (Auto) 0.2 Eos # (Auto) 0.1 Baso # (Auto) 0.0 WBC Differential . Differential Comment Auto diff final Puncture Site Right radial Patient Temperature 98.6 O2 Saturation 96 ABG pH 7.38 ABG pCO2 54 H* ABG pO2 138 H ABG HCO3 32 H ABG O2 Content 16.1 ABG Base Excess 6.7 H ABG Methemoglobin 1.5 Blane Test Present Hemoglobin 11.8 L Carboxyhemoglobin 1.0 O2 Delivery Device Vent Vent Setting Prvc 12/500/1.1/+10 Inspired O2 50 Critical Value Yes Sodium Potassium Chloride Carbon Dioxide Anion Gap BUN Creatinine Estimated GFR Random Glucose Calcium Phosphorus Magnesium Total Bilirubin AST ALT Alkaline Phosphatase Total Creatine Kinase 18 L Total Protein Albumin Random Vancomycin Microbiology 01/20/18 17:14 Blood - Peripheral Aerobic Blood Culture - Preliminary No growth in 4 days 01/20/18 17:14 Blood - Peripheral Anaerobic Blood Culture - Preliminary No growth in 4 days 01/20/18 17:19 Blood - Peripheral Aerobic Blood Culture - Preliminary No growth in 4 days 01/20/18 17:19 Blood - Peripheral Anaerobic Blood Culture - Final S. aureus MRSA 01/22/18 12:25 Sputum - Endotracheal Gram Stain - Final 01/22/18 17:00 Bronchial - Right Gram Stain - Final - Imaging Impressions Abscess Drainage Ultrasound 01/23/18 00:00 CONCLUSION: 1. Uncomplicated ultrasound-guided drainage catheter placement in complex inferolateral right shoulder fluid collection. Lumbar Spine MRI 01/23/18 00:00 CONCLUSION: Little or no change from previous exam. Nothing to suggest abscess Pelvis MRI 01/23/18 00:00 CONCLUSION: 1. Diffuse skin thickening and subcutaneous edema suggestive of cellulitis involving the left buttock without underlying abscess formation. 2. Rectosigmoid colon is distended with fecal debris suggestive of fecal impaction. Clinical correlation is recommended. 3. Markedly enlarged prostate. 4. Degenerative changes and scoliosis of the visualized lower lumbar spine are noted. 5. Bony changes involving the left sacrum likely representing old healed insufficiency fractures. Shoulder MRI 01/23/18 00:00 CONCLUSION: 1. Chronic complete rotator cuff tear. 2. Moderate joint fluid Chest X-Ray 01/24/18 07:00 CONCLUSION: Stable chest appearance Assessment and Plan - Assessment and Plan Abscess right shoulder. 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 Surgery: I&D right shoulder, POD #9 PLAN: 1. IV antibiotics per infectious disease. Intraoperative cultures taken of the right shoulder are positive for MRSA. Recent cultures taken of the left supraclavicular joint also are positive for MRSA. Drain placed in the right shoulder by interventional radiology. Awaiting culture results. 2. Source of sepsis still unclear. 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 Possible indolent infection that has developed an abscess of the right shoulder. We will defer to neurosurgery and other specialists for overall management. Neurosurgery consulted and will evaluate spine for infection. 3. Improving respiratory status. Patient now on ISC, intubated, and sedated. Bronchoscope recently performed showing mucous plugs. Awaiting results of mucus cultures. 4. Effusion improving with drain to right shoulder. 5. MRIs were completed for the pelvis and left shoulder. I did review these images and agree with the radiologist's interpretation. There is some fluid seen about the left shoulder in close proximity to previously found infection. I did discuss this with Dr. West. Dr. Bernardo will review the images and will determine whether it is necessary for interventional radiology to perform an aspiration of this fluid to rule out infection. Regarding the pelvic MRI. I do feel we can remain conservative with this and no further intervention is necessary at this time. I discussed the recent MRI of the lumbar spine with the family. The family states that neurosurgery does not feel surgery is indicated although there could be an underlying infection around the previous lumbar spine fusion hardware. Conservative management for the lumbar spine at this time. 6. Will continue to follow orthopedically.
[2018-01-24] MEDS ORDERED: Vancomycin Inj 1,250 MG in Sodium Chlor 0.9% Inj 250 ML IV.SIG ONE (12:00)
--- NOTE | 2018-01-24 14:27 | P.PNCC ---
Subjective Subjective Remarks/Hospital Course: This 82-year-old gentleman was transferred emergently from the floor to the surgical intensive care unit because of rapid onset combined hypoxemic and hypercapnic respiratory failure. On arrival he has diffuse crackles throughout both lung santizo and his neck veins are distended. On admission several days ago he was dehydrated and had an element of acute kidney injury. His weight is up about 5 kg since admission though his renal function has improved. On arrival he is breathing 40 times a minute on a nonrebreathing mask with pH of 7.18 and P CO2 of 74. His acidosis is purely respiratory and associated with bronchospasm from fluid overload. B natruretic peptide is elevated to greater than 2000. Other pertinent major problems include septic joint drainage and treatment. 01/22: Critical care reconsulted for worsening resp status. On BIPAP with fulkl face mask. CXR with bilat infiltrates/ pulm edema. Reaccumulated rt shoulder collection. After d/w family proceeded with intubation and placed patient on [facility] ventilation. Placed central line. D/W Dr. Mani Sherman who is arranging US guided drainage/ drain placement for shoulder collection. 01/23: Remains sedated, orally intubated on mechanical ventilation. Significant diuresis with 11 L negative over the last 3 days. Awaiting left shoulder percutaneous drainage of collection by interventional radiology today. 1 unit PRBCs ordered as patient has borderline blood pressures with hemoglobin less than 8. 01/24: Sedated, arousable, orally intubated on mechanical ventilation. Tolerating tube feeds. s/p [id number] drain placement in rt shoulder fluid collection on 01/23. Objective Vital Signs / I&O: Vital Signs 01/23/18 14:30 01/23/18 14:45 01/23/18 15:00 Temperature Pulse Rate 69 66 76 Respiratory Rate 12 12 12 Blood Pressure 126/67 129/71 122/69 Pulse Oximetry 95 95 99 01/23/18 15:30 01/23/18 16:00 01/23/18 16:30 Temperature Pulse Rate 74 72 71 Respiratory Rate 12 12 12 Blood Pressure 124/69 126/72 142/89 H Pulse Oximetry 99 99 99 01/23/18 17:00 01/23/18 17:21 01/23/18 18:00 Temperature 98.7 F 98.7 F Pulse Rate 88 77 Respiratory Rate 21 12 Blood Pressure 131/66 113/59 L Pulse Oximetry 93 L 100 96 01/23/18 19:00 01/23/18 20:00 01/23/18 20:07 Temperature 98.8 F Pulse Rate 77 75 81 Respiratory Rate 12 Blood Pressure 108/55 L 126/67 Pulse Oximetry 95 95 95 01/23/18 21:00 01/23/18 22:00 01/23/18 23:00 Temperature Pulse Rate 86 77 78 Respiratory Rate Blood Pressure 101/57 L 95/53 L 112/58 L Pulse Oximetry 95 95 96 01/24/18 00:00 01/24/18 00:09 01/24/18 01:00 Temperature 98.7 F 98.7 F Pulse Rate 86 84 Respiratory Rate 12 Blood Pressure 97/54 L 89/52 L Pulse Oximetry 94 L 95 96 01/24/18 02:00 01/24/18 03:00 01/24/18 04:00 Temperature 98.0 F Pulse Rate 75 77 78 Respiratory Rate Blood Pressure 89/55 L 102/59 L 112/64 Pulse Oximetry 98 99 98 01/24/18 04:27 01/24/18 05:00 01/24/18 06:00 Temperature Pulse Rate 76 89 79 Respiratory Rate 12 Blood Pressure 90/54 L Pulse Oximetry 99 95 93 L 01/24/18 07:00 01/24/18 08:00 01/24/18 08:39 Temperature 99.1 F Pulse Rate 80 78 83 Respiratory Rate 13 Blood Pressure 109/58 L 99/54 L Pulse Oximetry 95 95 96 01/24/18 09:00 01/24/18 10:00 01/24/18 11:00 Temperature Pulse Rate 82 81 88 Respiratory Rate Blood Pressure 103/57 L 105/58 L 105/57 L Pulse Oximetry 95 96 97 01/24/18 12:00 01/24/18 12:30 01/24/18 13:00 Temperature 99 F Pulse Rate 76 84 Respiratory Rate 11 L Blood Pressure 111/58 L 124/59 L Pulse Oximetry 96 94 L 93 L Intake & Output 01/23/18 01/24/18 01/24/18 18:59 06:59 18:59 Intake Total 920 / 920 1415 / 1415 650 / 650 Output Total 1395 / 1395 560 / 560 Balance -475 / -475 855 / 855 650 / 650 Weight 70 kg Intake: IV 400 / 400 200 / 200 650 / 650 Versed Inj 100 mg In 100 ml @ 2 100 / 100 MG/HR 2 mls/hr IV.CONT TITRATE PRN Rx#:[id number] Flexbumin 25% Inj 100 ML @ 60 100 / 100 100 / 100 mls/hr IV.SIG DAILY CHAYO Rx#: [id number] Azactam Inj 2 GM In NS Inj 100 100 / 100 200 / 200 100 / 100 ML @ 200 mls/hr IV.SIG Q6H CHAYO Rx#:[id number] Teflaro Inj 400 MG In NS Inj 100 / 100 100 / 100 100 ML @ 100 mls/hr IV.SIG Q12H CHAYO Rx#:[id number] KCl 40 mEq Premix Inj 40 meq In 100 / 100 100 ml @ 25 mls/hr IV.SIG Q2H PRN Rx#:[id number] NS Inj 250 ML @ 15 mls/hr IV. 250 / 250 SIG ONCE CHAYO Rx#:[id number] Tube Feeding 755 / 755 Water Bolus Amount 120 / 120 460 / 460 Intake (Blood Product) Amt 400 / 400 Rbc As-3 Leukoreduced Unit 400 / 400 [id number] Output: Urine Amount (Catheter) 1375 / 1375 550 / 550 Indwelling Urethral Catheter 1375 / 1375 550 / 550 Wound Drainage Left Shoulder 0 / 0 0 / 0 Right Shoulder Other: Date of Last Bowel Movement 01/20/18 01/20/18 # Bowel Movements 0 Result Diagrams: 01/24/18 07:58 01/24/18 05:34 Objective Remarks: sedated, orally intubated on [facility] ventilation. HEENT/ Neuro: Sedated, orally intubated, arousable, pallor present. Neck: No JVD Chest/pulm: on [facility] vent, air entry decreased at bases, bilat rhonchi, no wheezing. CVS: S1S2 regular Abd: Soft, nontender, BS present Ext: warm bilaterally. Bilateral drains in shoulder collections Assessment and Plan - Assessment and Plan Plan: Assessment and Plan: Acute combined hypercapnic and hypoxemic respiratory failure Fluid overload/noncardiogenic Pulmonary edema secondary to sepsis Possible pneumonia Mucus plugging -BNP greater than 2000 -Bronchodilators -diuresed to mobilize fluid -Scott required for BPH as well as diuresis -intubated and placed on mech ventilation on 01/22. -Status post bronchoscopy with BAL on 01/22 with significant mucus plugging noted in the right-sided airways including right mainstem bronchus for which BAL was performed with significant clearing of airway. Bronchial washing sent for Gram stain and cultures. Follow-up chest x-ray post bronchoscopy showed significant improvement in aeration of right lung. -Continue mechanical ventilation, vent bundle. Added Mucomyst to mobilize secretions. Start daily CPAP trials. MRSA septicemia, septic right shoulder, L spine diskitis, left supraclavicular abscess sepsis Right shoulder effusion. septic right shoulder, s/p I&D Urinary tract infection. Left Supraclavicular abscess, CT reviewed, showed abscess extending to posterior thorax Diskitis MR L spine with poss diskitis/ osteomyelitis On chronic ( ~50 days) of steroid use. Taper steroid Blood cultures positive for MRSA. 2D echocardiogram did not show any findings consistent with vegetations. Continue vancomycin, Levaquin, meropenem per ID. Patient also had a right shoulder effusion, orthopedics aspirated the shoulder - approximately 30 cc of purulent fluid. had follow-up with orthopedics for their recommendations drainage of that right shoulder. Continue IV antibiotics per infectious disease recommendations. Infectious disease following repeat blood cultures ntd Cardiothoracic surgeon was consulted for evaluation of supraclavicular mass/ poss abscess NM WBC scan 01/18/18 and 01/19/18. Patient received ativan as not able to tolerate CT imaging he was noted agitated in CT and imaging needed to be repeat. Imaging discussed with radiology Dr and it seems patient with multiple focal infections bilateral shoulders, also back at the hardware with diskitis/ osteomyelitis. Neurology, ID, hem onc ff. CTS consulted no surgical intervention required at this time. IR consulted s/p CT-guided drainage of left posterior supraclavicular/posterior chest wall abscess on 01/17/18. s/p US guided drainage of shoulder collection by IR done on 01/23 KEKE on CKD. Being diuresed, Strict I/O, monitor/ replete electrolytes, follow BUN/ Cr Decreased IV Albumin/ Lasix to once a day on 01/23. s/p Diamox for metabolic alkalosis Nephrology following appreciate recs. Significant fluid removal over the last 3 days. Attempt even fluid balance in view of rising creatinine. CVS Atrial Fibrillation, permanent Noncardiogenic pulmonary edema Hypotension (resolved) Rate well controlled. Recent ECHO EF 65% Dr. Garner following-discussed with Dr. Garner on 01/22. We agreed with diuresing patient for noncardiogenic pulmonary edema while watching renal function/ BP. Hold antihypertensives. On 01/23 ordered Levophed for pressor support to keep MAP greater than 65mm Hg however has not required pressors. May need to hold off on further diuresis due to rising creatinine. Anemia 1 unit PRBCs ordered to be transfused on 01/23 to keep hemoglobin above 8 g%. No overt evidence of blood loss. Follow CBC. Protein calorie malnutrition -Inserted NGT 01/22 following intubation, Continue tube feeds and advance to goal as tolerated. BPH - Continue Flomax. DVT prophylaxis per surgeon Access: RIJ central line placed 01/22 01/22: D/w Dr. Mani Sherman, D/W [employer]ER, D/W patient's family at bedside. 01/23 D/W patient's daughter at bedside regarding current clinical status and plan of care and they voiced understanding and were agreeable with plan of care. D/W ID-Dr Tom on 01/23 01/24: Discussed with patient's family at bedside regarding current clinical status and plan of care and they voiced understanding. Discussed with ID Dr. Tom, discussed with Dr. Piña. Discussed with GETTER FILLER.. Critical care time 45 minutes aside from procedures.
--- NOTE | 2018-01-24 14:44 | P.PNID ---
Subjective Remarks: intubated On Cpap DOInG BETTER - DW dR Vanesa Morales MR of L shoulder dw Dr Negron: extensive infection, fluid difficult to drain percutaneously, better surgically if feasible Antibiotics: vanco levaquin meropem Lines: Line sites with no e.o infection Past Medical History: reviewed Allergies/Adverse Reactions: Allergies amoxicillin Allergy (Severe, Verified 01/13/18 20:44) Hives Objective Vital Signs 01/23/18 14:30 01/23/18 14:45 01/23/18 15:00 Temperature Pulse Rate 69 66 76 Respiratory Rate 12 12 12 Blood Pressure 126/67 129/71 122/69 Pulse Oximetry 95 95 99 01/23/18 15:30 01/23/18 16:00 01/23/18 16:30 Temperature Pulse Rate 74 72 71 Respiratory Rate 12 12 12 Blood Pressure 124/69 126/72 142/89 H Pulse Oximetry 99 99 99 01/23/18 17:00 01/23/18 17:21 01/23/18 18:00 Temperature 98.7 F 98.7 F Pulse Rate 88 77 Respiratory Rate 21 12 Blood Pressure 131/66 113/59 L Pulse Oximetry 93 L 100 96 01/23/18 19:00 01/23/18 20:00 01/23/18 20:07 Temperature 98.8 F Pulse Rate 77 75 81 Respiratory Rate 12 Blood Pressure 108/55 L 126/67 Pulse Oximetry 95 95 95 01/23/18 21:00 01/23/18 22:00 01/23/18 23:00 Temperature Pulse Rate 86 77 78 Respiratory Rate Blood Pressure 101/57 L 95/53 L 112/58 L Pulse Oximetry 95 95 96 01/24/18 00:00 01/24/18 00:09 01/24/18 01:00 Temperature 98.7 F 98.7 F Pulse Rate 86 84 Respiratory Rate 12 Blood Pressure 97/54 L 89/52 L Pulse Oximetry 94 L 95 96 01/24/18 02:00 01/24/18 03:00 01/24/18 04:00 Temperature 98.0 F Pulse Rate 75 77 78 Respiratory Rate Blood Pressure 89/55 L 102/59 L 112/64 Pulse Oximetry 98 99 98 01/24/18 04:27 01/24/18 05:00 01/24/18 06:00 Temperature Pulse Rate 76 89 79 Respiratory Rate 12 Blood Pressure 90/54 L Pulse Oximetry 99 95 93 L 01/24/18 07:00 01/24/18 08:00 01/24/18 08:39 Temperature 99.1 F Pulse Rate 80 78 83 Respiratory Rate 13 Blood Pressure 109/58 L 99/54 L Pulse Oximetry 95 95 96 01/24/18 09:00 01/24/18 10:00 01/24/18 11:00 Temperature Pulse Rate 82 81 88 Respiratory Rate Blood Pressure 103/57 L 105/58 L 105/57 L Pulse Oximetry 95 96 97 01/24/18 12:00 01/24/18 12:30 01/24/18 13:00 Temperature 99 F Pulse Rate 76 84 Respiratory Rate 11 L Blood Pressure 111/58 L 124/59 L Pulse Oximetry 96 94 L 93 L Intake & Output 01/23/18 01/24/18 01/24/18 18:59 06:59 18:59 Intake Total 920 / 920 1415 / 1415 650 / 650 Output Total 1395 / 1395 560 / 560 Balance -475 / -475 855 / 855 650 / 650 Weight 70 kg Intake: IV 400 / 400 200 / 200 650 / 650 Versed Inj 100 mg In 100 ml @ 2 100 / 100 MG/HR 2 mls/hr IV.CONT TITRATE PRN Rx#:[id number] Flexbumin 25% Inj 100 ML @ 60 100 / 100 100 / 100 mls/hr IV.SIG DAILY CHAYO Rx#: [id number] Azactam Inj 2 GM In NS Inj 100 100 / 100 200 / 200 100 / 100 ML @ 200 mls/hr IV.SIG Q6H CH[facility]O Rx#:[id number] Teflaro Inj 400 MG In NS Inj 100 / 100 100 / 100 100 ML @ 100 mls/hr IV.SIG Q12H CH[facility]O Rx#:[id number] KCl 40 mEq Premix Inj 40 meq In 100 / 100 100 ml @ 25 mls/hr IV.SIG Q2H PRN Rx#:[id number] NS Inj 250 ML @ 15 mls/hr IV. 250 / 250 SIG ONCE CHAYO Rx#:[id number] Tube Feeding 755 / 755 Water Bolus Amount 120 / 120 460 / 460 Intake (Blood Product) Amt 400 / 400 Rbc As-3 Leukoreduced Unit 400 / 400 [id number] Output: Urine Amount (Catheter) 1375 / 1375 550 / 550 Indwelling Urethral Catheter 1375 / 1375 550 / 550 Wound Drainage 10 / 10 Left Shoulder 0 / 0 0 / 0 Right Shoulder 10 Other: Date of Last Bowel Movement 01/20/18 01/20/18 # Bowel Movements 0 01/17/18 18:56 Fluid - Other Acid Fast Bacilli Smear - Final No acid fast bacilli seen 01/17/18 18:56 Fluid - Other Mycobacterial Culture - Preliminary No growth in 1 week 01/23/18 14:42 Fluid - Other Gram Stain - Final 01/23/18 14:42 Fluid - Other Body Fluid Culture - Pending 01/22/18 17:00 Bronchial - Right Gram Stain - Final 01/22/18 17:00 Bronchial - Right Bronchial Culture - Final S. aureus MRSA 01/22/18 12:25 Sputum - Endotracheal Gram Stain - Final 01/22/18 12:25 Sputum - Endotracheal Sputum Culture - Final S. aureus MRSA 01/20/18 17:14 Blood - Peripheral Aerobic Blood Culture - Preliminary No growth in 4 days 01/20/18 17:14 Blood - Peripheral Anaerobic Blood Culture - Preliminary No growth in 4 days 01/20/18 17:19 Blood - Peripheral Aerobic Blood Culture - Preliminary No growth in 4 days 01/20/18 17:19 Blood - Peripheral Anaerobic Blood Culture - Final S. aureus MRSA 01/15/18 18:25 Wound - Shoulder Fungal Smear - Final No fungal elements seen 01/15/18 18:25 Wound - Shoulder Fungal Culture - Preliminary No growth in 1 week 01/15/18 18:25 Wound - Shoulder Acid Fast Bacilli Smear - Final No acid fast bacilli seen 01/15/18 18:25 Wound - Shoulder Mycobacterial Culture - Preliminary No growth in 1 week 01/15/18 18:25 Wound - Shoulder Fungal Smear - Final No fungal elements seen 01/15/18 18:25 Wound - Shoulder Fungal Culture - Preliminary No growth in 1 week 01/15/18 18:25 Wound - Shoulder Acid Fast Bacilli Smear - Final No acid fast bacilli seen 01/15/18 18:25 Wound - Shoulder Mycobacterial Culture - Preliminary No growth in 1 week 01/17/18 13:07 Blood - Peripheral Aerobic Blood Culture - Final No growth in 5 days 01/17/18 13:07 Blood - Peripheral Anaerobic Blood Culture - Final QNS - See aerobic report. 01/17/18 13:01 Blood - Peripheral Aerobic Blood Culture - Final No growth in 5 days 01/17/18 13:01 Blood - Peripheral Anaerobic Blood Culture - Final No growth in 5 days 01/17/18 18:56 Fluid - Other Fungal Smear - Final No fungal elements seen 01/17/18 18:56 Fluid - Other Fungal Culture - Preliminary Lab - Hematology Results 01/23/18 01/24/18 05:00 07:58 WBC 6.7 5.6 RBC 2.86 L 3.16 L Hgb 7.4 L 8.3 L Hct 22.8 L 26.7 L MCV 79.6 L 84.3 D MCH 25.9 L 26.3 L MCHC 32.5 31.2 L RDW 19.6 H 20.0 H Plt Count 167 155 MPV 7.6 7.9 Prelim Diff (Auto) Slide review pending Neut % (Auto) 91.1 H 90.0 H Lymph % (Auto) 6.2 L 5.9 L [place] % (Auto) 2.2 2.7 Eos % (Auto) 0.2 1.0 Baso % (Auto) 0.3 0.4 Neut # (Auto) 6.1 5.0 Lymph # (Auto) 0.4 L 0.3 L [place] # (Auto) 0.2 0.2 Eos # (Auto) 0.0 0.1 Baso # (Auto) 0.0 0.0 WBC Differential Manual diff final . Seg Neuts % (Manual) 78 H Band Neuts % (Manual) 19 H Lymphocytes % (Manual) 2 L Myelocytes % (Man) 1 H Abs Neuts (Manual) 6.6 Nucleated RBCs/100 WBC 1 H Differential Comment . Auto diff final Platelet Estimate Normal Platelet Morphology Normal Lab - Chemistry Results 01/15/18 01/23/18 01/23/18 11:44 05:00 13:40 Sodium 146 H Potassium 2.9 L* 3.9 D Chloride 102 Carbon Dioxide 36.0 H Anion Gap 8 BUN 58 H Creatinine 1.84 H Estimated GFR 36 L Random Glucose 125 H Calcium 8.5 Phosphorus Magnesium Total Bilirubin AST ALT Alkaline Phosphatase Total Creatine Kinase Total Protein Albumin Albumin (PEP) 1.82 L Albumin/Globulin Ratio 0.73 L Xzapt-5-Kqjpbsjkd 0.31 H Yhyju-6-Taaaywfbo 0.86 Beta Globulins 0.58 Gamma Globulins 0.74 PEP Pathologist Comment 01/24/18 01/24/18 05:34 05:34 Sodium 148 H Potassium 3.8 Chloride 110 H D Carbon Dioxide 33.9 H Anion Gap 4 L BUN 70 H Creatinine 2.05 H Estimated GFR 31 L Random Glucose 151 H Calcium 8.2 L Phosphorus 3.9 Magnesium 1.9 Total Bilirubin 1.4 H AST 8 L ALT 10 L Alkaline Phosphatase 75 Total Creatine Kinase 18 L Total Protein 5.8 L Albumin 3.1 L Albumin (PEP) Albumin/Globulin Ratio Mpnia-8-Lmbotupku Iukfr-2-Lgfedlcll Beta Globulins Gamma Globulins PEP Pathologist Comment Imaging: ITS Impressions Abdomen/Pelvis CT 01/13/18 20:43 CONCLUSION: 1. Marked prostate enlargement. 2. Air-filled distention of sigmoid colon. 3. Cardiomegaly. Small bilateral pleural effusions. 4. Diffuse atherosclerotic disease and arterial calcification. 5. Old insufficiency type fractures of the left side of the sacrum and left- sided pubic rami. Cervical Spine MRI 01/14/18 00:00 CONCLUSION: 1. Examination is degraded by motion artifact. 2. Partial visualization of a mass involving the left supraclavicular region measuring 5.[address] scan of the soft tissues of the neck with IV contrast to further assess if the patient can't hold still for that exam. 3. Diffuse degenerative changes as detailed at each level in the above discussion. Head MRI 01/14/18 00:00 CONCLUSION: 1. No acute intracranial abnormality. 2. Encephalomalacia involving the left frontal lobe. Thoracic Spine MRI 01/14/18 00:00 CONCLUSION: 1. See the MRI of the cervical spine reported separately. 2. Orthopedic hardware at the thoracolumbar junction. 3. Patent central canal throughout. Head CT 01/14/18 00:31 CONCLUSION: 1. No acute intracranial findings. 2. 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 . Venous Doppler Study 01/14/18 09:20 CONCLUSION: 1. The study is negative for lower extremity deep venous thrombosis. Soft Tissue Neck CT 01/16/18 00:00 CONCLUSION: 1. Partially visualized fluid and gas collection deep to the left trapezius muscle in the posterior lower neck extending into the posterior thorax. Chest CT with contrast could be performed to image the remainder of the abnormality. Differential diagnosis includes abscess and hematoma. 2. Degenerative findings of the cervical spine. Chest CT 01/16/18 11:15 CONCLUSION: 1. Lobulated mass in the left supraclavicular region. It is most suggestive of a multi lobulated loculated abscess given the air within several of the masses. 2. Bibasilar areas of consolidation or atelectasis. There are mild bilateral pleural effusion. 3. There is a drain over the right shoulder region. 4. Postsurgical change at the thoracolumbar region as described above. Abscess Drainage CT 01/17/18 00:00 CONCLUSION: 1. Uncomplicated CT guided drainage, as above. WBC Scan Nuclear Medicine 01/18/18 00:00 CONCLUSION: 1. Multiple areas of abnormal uptake including at the upper lumbar spine around the upper left surgical hardware and at the L1-2 disc level. 2. Abnormal activity around the clip joints bilaterally being more prominent on the right. 3. Abnormal activity in the right C2-3 facet and the left C7-T1 facet. 4. Small area of signal abnormality in the posterior right sacroiliac joint region separate from surgical hardware. 5. All these areas are concerning for active infection. Shoulder X-Ray 01/21/18 00:00 CONCLUSION: Unusual positioning of the shoulder but I do not see any obvious displaced fracture of the shoulder. There is a healing third rib fracture and healing seventh rib fracture. Upper Extremity Ultrasound 01/22/18 00:00 CONCLUSION: 1. Lateral right shoulder subcutaneous complex fluid collection concerning for abscess. This is amenable to percutaneous drainage. Abscess Drainage Ultrasound 01/23/18 00:00 CONCLUSION: 1. Uncomplicated ultrasound-guided drainage catheter placement in complex inferolateral right shoulder fluid collection. Lumbar Spine MRI 01/23/18 00:00 CONCLUSION: Little or no change from previous exam. Nothing to suggest abscess Pelvis MRI 01/23/18 00:00 CONCLUSION: 1. Diffuse skin thickening and subcutaneous edema suggestive of cellulitis involving the left buttock without underlying abscess formation. 2. Rectosigmoid colon is distended with fecal debris suggestive of fecal impaction. Clinical correlation is recommended. 3. Markedly enlarged prostate. 4. Degenerative changes and scoliosis of the visualized lower lumbar spine are noted. 5. Bony changes involving the left sacrum likely representing old healed insufficiency fractures. Shoulder MRI 01/23/18 00:00 CONCLUSION: 1. Chronic complete rotator cuff tear. 2. Moderate joint fluid Chest X-Ray 01/24/18 07:00 CONCLUSION: Stable chest appearance Physical Exam: GENERAL:on vent sedated SKIN: Warm and dry. No rash HEAD: Atraumatic. Normocephalic. EYES: Pupils equal and round. No scleral icterus. No injection or drainage. ENT: No nasal bleeding or discharge. Mucous membranes pink and moist. NECK: Trachea midline. No JVD. No palpable masses, but diffuse pain CARDIOVASCULAR: Regular rate and rhythm. nO murmurs RESPIRATORY: No accessory muscle use. decrease BS on R anteriorly to auscultation. + rhonchi b/l GASTROINTESTINAL: Abdomen soft, non-tender, mildly distended. Hepatic and splenic margins not palpable. MUSCULOSKELETAL: Extremities without clubbing, cyanosis, no edema. No obvious deformities. + R shoulder post op dressing in place, Incision intact, but effusion is present . Left shoulder catheter has serous drainage. NEUROLOGICAL: sedated PSYCHIATRIC: unable to assess Assessment and Plan - Plan High grade staph bacteremia. MRSA 2 D echo neg R shoulder effusion , cw R shoulder septic arhtritis (MRSA)-post I&D. . UTI, recurrent recent ly used Bactrim - clx negative probably 2/2 prior abx use Chronic osteo , diskitis, aw hardware h/o L spine fusion and infection 2 yrs ago Encephalopathy - likely 2/2 sepsis (pt has 2 concomitant infections: UTI and septic R shoulder arthritis - improved with treatment L supraclavicular mass turned out to be abscess on CT his CT showed abscess extending to posterior thorax. Status post drainage. MR L spine with ? diskitis CT chest with contrast was rec'd, but since he got contrast this am, will do w/ o contrast NM WBC * scan dw Dr Henry Sherman: - L spine abnormal enchanceemnt cw diskitis, chronic osteo no fluid collections resp failure, on NIVM PNA, RLL - new , cannot exclude aspiration High grade PNC allergy, but tolerated meropenem OK Pt is now critical and unstable fro resp standpoint looks likel reaccumulated R shoulder effusion Recs: continue vancomycin cont azactam cont teflaro add Rifampin fu clx JUSTIN if feasible open drainage by ortho o/w IR drainage dw Migdalia Lockhart, Ayana Kevin pahrmkenya levin RN
[2018-01-24] MEDS: RIFAMPIN IV.SIG SCH (17:10)
[2018-01-24] MEDS: SODIUM CHLOR 0.9% IV.SIG SCH (17:10)
[2018-01-24] MEDS: Melatonin 5 MG Tablet PO SCH (20:29)
[2018-01-25] MEDS: Oral Hygiene Kit OROPHARYNG SCH ×4 (00:58→15:14)
[2018-01-25] MEDS: Aztreonam Inj 2 GM in Sodium Chloride 0.9% Inj 100 ML IV.SIG SCH ×4 (02:00→20:11)
[2018-01-25] MEDS: RIFAMPIN IV.SIG SCH ×2 (03:00→15:14)
[2018-01-25] MEDS: SODIUM CHLOR 0.9% IV.SIG SCH ×2 (03:00→15:14)
[2018-01-25] MEDS: fentaNYL 10 mcg/mL Premix Drip 2,500 MCG/250 ML BAG IV.SIG PRN (05:56)
[2018-01-25] MEDS: Levothyroxine 100 MCG Tablet PO SCH (06:29)
--- NOTE | 2018-01-25 08:14 | P.PNOP ---
Subjective Interval history: pt intubated more alert taken off fentanyl on no pressor meds at this time spoke with patient's sister; explained to her his complex medical/orthopedic condition; answered multiple questions Physical Exam Vital signs: Vital Signs 01/24/18 08:39 01/24/18 09:00 01/24/18 10:00 Temperature Pulse Rate 83 82 81 Respiratory Rate 13 Blood Pressure 103/57 L 105/58 L Pulse Oximetry 96 95 96 01/24/18 11:00 01/24/18 12:00 01/24/18 12:30 Temperature 99 F Pulse Rate 88 76 Respiratory Rate 11 L Blood Pressure 105/57 L 111/58 L Pulse Oximetry 97 96 94 L 01/24/18 13:00 01/24/18 14:00 01/24/18 15:00 Temperature Pulse Rate 84 75 80 Respiratory Rate Blood Pressure 124/59 L 95/54 L 115/59 L Pulse Oximetry 93 L 97 96 01/24/18 16:00 01/24/18 17:00 01/24/18 17:02 Temperature 98.6 F Pulse Rate 74 82 84 Respiratory Rate 12 12 Blood Pressure 118/76 Pulse Oximetry 96 95 01/24/18 18:00 01/24/18 19:00 01/24/18 19:36 Temperature Pulse Rate 80 73 73 Respiratory Rate 12 12 Blood Pressure 120/57 L 101/56 L Pulse Oximetry 95 96 96 01/24/18 20:00 01/24/18 21:00 01/24/18 22:00 Temperature 98.6 F 98.6 F Pulse Rate 78 95 H 80 Respiratory Rate 12 12 12 Blood Pressure 122/56 L 115/59 L 100/57 L Pulse Oximetry 96 97 95 01/24/18 23:00 01/24/18 23:50 01/25/18 00:00 Temperature 99.0 F Pulse Rate 77 87 Respiratory Rate 12 12 Blood Pressure 124/60 125/60 Pulse Oximetry 97 97 96 01/25/18 01:00 01/25/18 02:00 01/25/18 03:00 Temperature Pulse Rate 76 72 75 Respiratory Rate 12 12 Blood Pressure 115/59 L 116/56 L 120/75 Pulse Oximetry 97 97 96 01/25/18 03:04 01/25/18 03:35 01/25/18 04:00 Temperature 98.9 F Pulse Rate 74 80 Respiratory Rate 12 12 12 Blood Pressure 110/56 L Pulse Oximetry 97 96 01/25/18 05:00 01/25/18 06:00 Temperature Pulse Rate 81 75 Respiratory Rate Blood Pressure 111/58 L 105/55 L Pulse Oximetry 96 94 L Intake & Output 01/24/18 01/25/18 01/25/18 18:59 06:59 18:59 Intake Total 2167.5 / 2167.5 1675 / 1675 Output Total 1200 / 1200 1030 / 1030 Balance 967.5 / 967.5 645 / 645 Weight 10.6 kg Intake: IV 1312.5 / 1312.5 550 / 550 Versed Inj 100 mg In 100 ml @ 2 100 / 100 MG/HR 2 mls/hr IV.CONT TITRATE PRN Rx#:[id number] Flexbumin 25% Inj 100 ML @ 60 100 / 100 mls/hr IV.SIG DAILY CHAYO Rx#: [id number] Azactam Inj 2 GM In NS Inj 100 200 / 200 200 / 200 ML @ 200 mls/hr IV.SIG Q6H [facility]O Rx#:[id number] Teflaro Inj 300 MG In NS Inj 200 / 200 100 / 100 100 ML @ 100 mls/hr IV.SIG Q12H [facility]O Rx#:[id number] NS Inj 250 ML @ 15 mls/hr IV. 250 / 250 SIG ONCE CHAYO Rx#:[id number] Vancomycin Inj 1,250 MG In NS 262.5 / 262.5 Inj 250 ML @ 250 mls/hr IV.SIG ONCE ONE Rx#:[id number] fentaNYL 10 mcg/mL Premix Drip 100 / 100 150 / 150 2,500 mcg In 250 ml @ 50 MCG/HR 5 mls/hr IV.SIG TITRATE PRN Rx #:[id number] RIFADIN Inj 300 MG In NS Inj 100 / 100 100 / 100 100 ML @ 100 mls/hr IV.SIG Q12H CHAYO Rx#:[id number] Tube Feeding 675 / 675 865 / 865 Tube Irrigant 60 / 60 Water Bolus Amount 120 / 120 260 / 260 Output: Urine Amount (Catheter) 1200 / 1200 1000 / 1000 Indwelling Urethral Catheter 1200 / 1200 1000 / 1000 Wound Drainage 30 / 30 Left Shoulder 0 / 0 Right Shoulder 30 / 30 Other: Date of Last Bowel Movement 01/20/18 01/20/18 # Bowel Movements 0 Narrative: pt intubated drains in left and right shoulder show serosangious fluid, no gross pus - Urinary Catheter Management Condom Cath placed during this visit: no Indwelling Urethral Catheter Cath placed during this visit: yes Reason for continuing: Hourly intake/output Insertion date: 01/20/18 Insertion time: 11:30 Results - Labs CBC & Chem 7: 01/24/18 07:58 01/25/18 06:00 Laboratory Results - last 24 hr 01/25/18 06:00 Creatinine 1.90 H Estimated GFR 34 L Microbiology 01/23/18 14:42 Fluid - Other Gram Stain - Final 01/23/18 14:42 Fluid - Other Body Fluid Culture - Preliminary No growth in 24 hours 01/17/18 18:56 Fluid - Other Acid Fast Bacilli Smear - Final No acid fast bacilli seen 01/17/18 18:56 Fluid - Other Mycobacterial Culture - Preliminary No growth in 1 week 01/22/18 17:00 Bronchial - Right Gram Stain - Final 01/22/18 17:00 Bronchial - Right Bronchial Culture - Final S. aureus MRSA 01/22/18 12:25 Sputum - Endotracheal Gram Stain - Final 01/22/18 12:25 Sputum - Endotracheal Sputum Culture - Final S. aureus MRSA 01/20/18 17:14 Blood - Peripheral Aerobic Blood Culture - Preliminary No growth in 4 days 01/20/18 17:14 Blood - Peripheral Anaerobic Blood Culture - Preliminary No growth in 4 days 01/20/18 17:19 Blood - Peripheral Aerobic Blood Culture - Preliminary No growth in 4 days 01/20/18 17:19 Blood - Peripheral Anaerobic Blood Culture - Final S. aureus MRSA - Imaging Impressions Chest X-Ray 01/24/18 07:00 CONCLUSION: Stable chest appearance - Procedures Right shoulder consent for aspiration obtained. Time out performed. Right shoulder prepped sterilely with alcohol and betadine. Sterile gloves doned. Right shoulder aspirated and sent for gram stain, culture, crystals, and cell count. 30 cc of purulent drainage aspirated and sent to lab. sterile dressing applied. Patient tolerated procedure well. Assessment and Plan - Assessment and Plan Abscess right shoulder. 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 Surgery: I&D right shoulder, POD #10 PLAN: 1. IV antibiotics per infectious disease. Intraoperative cultures taken of the right shoulder are positive for MRSA. Recent cultures taken of the left supraclavicular joint also are positive for MRSA. Drain placed in the right shoulder by interventional radiology. Awaiting culture results. 2. Source of sepsis still unclear. 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 Possible indolent infection that has developed an abscess of the right shoulder. We will defer to neurosurgery and other specialists for overall management. Neurosurgery consulted and will evaluate spine for infection. 3. Improving respiratory status. Patient now on ISC, intubated, and sedated. Bronchoscope recently performed showing mucous plugs. 4. Effusion improving with drain to right shoulder. 5. Continue drainage of left and right shoulders 6. Will continue to follow orthopedically.
[2018-01-25] MEDS: Albumin Human 25% Inj 100 ML IV.SIG SCH (08:29)
[2018-01-25] MEDS: Chlorhexidine 0.12% Oral Kit 15 ML UDC OROPHARYNG SCH ×2 (08:29→20:13)
[2018-01-25] MEDS: Citalopram 20 MG Tablet PO SCH (08:30)
[2018-01-25] MEDS: Pantoprazole Sodium 20 MG DR Tablet PO SCH (08:30)
[2018-01-25] MEDS: amLODIPine 5 MG Tablet PO SCH (08:30)
[2018-01-25] MEDS: Senna/Docusate Sodium 8.6/50 MG Tablet PO SCH ×2 (08:30→20:12)
[2018-01-25] MEDS: Potassium Chloride 25 MEQ Effervescent Tablet PO SCH ×2 (08:30→20:12)
--- NOTE | 2018-01-25 09:35 | P.PNCC ---
Subjective Subjective Remarks/Hospital Course: This 82-year-old gentleman was transferred emergently from the floor to the surgical intensive care unit because of rapid onset combined hypoxemic and hypercapnic respiratory failure. On arrival he has diffuse crackles throughout both lung santizo and his neck veins are distended. On admission several days ago he was dehydrated and had an element of acute kidney injury. His weight is up about 5 kg since admission though his renal function has improved. On arrival he is breathing 40 times a minute on a nonrebreathing mask with pH of 7.18 and P CO2 of 74. His acidosis is purely respiratory and associated with bronchospasm from fluid overload. B natruretic peptide is elevated to greater than 2000. Other pertinent major problems include septic joint drainage and treatment. 01/22: Critical care reconsulted for worsening resp status. On BIPAP with fulkl face mask. CXR with bilat infiltrates/ pulm edema. Reaccumulated rt shoulder collection. After d/w family proceeded with intubation and placed patient on [facility] ventilation. Placed central line. D/W Dr. Mani Sherman who is arranging US guided drainage/ drain placement for shoulder collection. 01/23: Remains sedated, orally intubated on mechanical ventilation. Significant diuresis with 11 L negative over the last 3 days. Awaiting left shoulder percutaneous drainage of collection by interventional radiology today. 1 unit PRBCs ordered as patient has borderline blood pressures with hemoglobin less than 8. 01/24: Sedated, arousable, orally intubated on mechanical ventilation. Tolerating tube feeds. s/p [id number] drain placement in rt shoulder fluid collection on 01/23. 01/25: He had a good trial on spontaneous breathing yesterday. Mechanical ventilation overnight. Started on spontaneous breathing trial this morning at 12/5 and volumes were small. Increased to 15/8 and volumes looked better with each breath. Still producing lots of thick secretions, dark yellow. Unable to extubate due to general weakness and inability to cough numerous secretions. FiO2 reduced to 40% and gas exchange good. Clearly improved respiratory function from yesterday. Tolerating tube feeds well, gastric residuals minimal , remains constipated and will start on milk of magnesia and Objective Vital Signs / I&O: Vital Signs 01/24/18 10:00 01/24/18 11:00 01/24/18 12:00 Temperature 99 F Pulse Rate 81 88 76 Respiratory Rate Blood Pressure 105/58 L 105/57 L 111/58 L Pulse Oximetry 96 97 96 01/24/18 12:30 01/24/18 13:00 01/24/18 14:00 Temperature Pulse Rate 84 75 Respiratory Rate 11 L Blood Pressure 124/59 L 95/54 L Pulse Oximetry 94 L 93 L 97 01/24/18 15:00 01/24/18 16:00 01/24/18 17:00 Temperature 98.6 F Pulse Rate 80 74 82 Respiratory Rate 12 Blood Pressure 115/59 L 118/76 Pulse Oximetry 96 96 01/24/18 17:02 01/24/18 18:00 01/24/18 19:00 Temperature Pulse Rate 84 80 73 Respiratory Rate 12 12 Blood Pressure 120/57 L 101/56 L Pulse Oximetry 95 95 96 01/24/18 19:36 01/24/18 20:00 01/24/18 21:00 Temperature 98.6 F 98.6 F Pulse Rate 73 78 95 H Respiratory Rate 12 12 12 Blood Pressure 122/56 L 115/59 L Pulse Oximetry 96 96 97 01/24/18 22:00 01/24/18 23:00 01/24/18 23:50 Temperature Pulse Rate 80 77 Respiratory Rate 12 12 Blood Pressure 100/57 L 124/60 Pulse Oximetry 95 97 97 01/25/18 00:00 01/25/18 01:00 01/25/18 02:00 Temperature 99.0 F Pulse Rate 87 76 72 Respiratory Rate 12 12 Blood Pressure 125/60 115/59 L 116/56 L Pulse Oximetry 96 97 97 01/25/18 03:00 01/25/18 03:04 01/25/18 03:35 Temperature Pulse Rate 75 74 Respiratory Rate 12 12 12 Blood Pressure 120/75 Pulse Oximetry 96 97 01/25/18 04:00 01/25/18 05:00 01/25/18 06:00 Temperature 98.9 F Pulse Rate 80 81 75 Respiratory Rate 12 Blood Pressure 110/56 L 111/58 L 105/55 L Pulse Oximetry 96 96 94 L 01/25/18 07:00 01/25/18 08:00 01/25/18 08:14 Temperature 99.3 F Pulse Rate 81 97 H 81 Respiratory Rate 12 10 L Blood Pressure 105/58 L 118/69 Pulse Oximetry 95 95 98 Intake & Output 01/24/18 01/25/18 01/25/18 18:59 06:59 18:59 Intake Total 2167.5 / 2167.5 1675 / 1675 Output Total 1200 / 1200 1030 / 1030 Balance 967.5 / 967.5 645 / 645 Weight 10.6 kg Intake: IV 1312.5 / 1312.5 550 / 550 Versed Inj 100 mg In 100 ml @ 2 100 / 100 MG/HR 2 mls/hr IV.CONT TITRATE PRN Rx#:[id number] Flexbumin 25% Inj 100 ML @ 60 100 / 100 mls/hr IV.SIG DAILY CHAYO Rx#: [id number] Azactam Inj 2 GM In NS Inj 100 200 / 200 200 / 200 ML @ 200 mls/hr IV.SIG Q6H CHAYO Rx#:[id number] Teflaro Inj 300 MG In NS Inj 200 / 200 100 / 100 100 ML @ 100 mls/hr IV.SIG Q12H CHAYO Rx#:[id number] NS Inj 250 ML @ 15 mls/hr IV. 250 / 250 SIG ONCE CHAYO Rx#:[id number] Vancomycin Inj 1,250 MG In NS 262.5 / 262.5 Inj 250 ML @ 250 mls/hr IV.SIG ONCE ONE Rx#:[id number] fentaNYL 10 mcg/mL Premix Drip 100 / 100 150 / 150 2,500 mcg In 250 ml @ 50 MCG/HR 5 mls/hr IV.SIG TITRATE PRN Rx #:[id number] RIFADIN Inj 300 MG In NS Inj 100 / 100 100 / 100 100 ML @ 100 mls/hr IV.SIG Q12H CHAYO Rx#:[id number] Tube Feeding 675 / 675 865 / 865 Tube Irrigant 60 / 60 Water Bolus Amount 120 / 120 260 / 260 Output: Urine Amount (Catheter) 1200 / 1200 1000 / 1000 Indwelling Urethral Catheter 1200 / 1200 1000 / 1000 Wound Drainage 30 / 30 Left Shoulder 0 / 0 Right Shoulder 30 30 Other: Date of Last Bowel Movement 01/20/18 01/20/18 01/20/18 # Bowel Movements 0 Result Diagrams: 01/24/18 07:58 01/25/18 06:00 Objective Remarks: General: Minimally sedated, orally intubated on [facility] ventilation. HEENT: Orally intubated. Chest/pulm: On mech vent, air entry decreased at right base, minimal bilat rhonchi, no wheezing. CVS: S1S2, irregular rhythm, no JVD. Abd: Soft, nontender, BS present. No guarding. Ext: Warm bilaterally. Bilateral drains in shoulder collections. Limbs are well perfused. Neuro: Opens eyes to soft voice and tracks with eyes. Appears to recognize family. Nods head to questions. Moves arms and legs weakly. Assessment and Plan - Assessment and Plan Plan: Assessment and Plan: Acute combined hypercapnic and hypoxemic respiratory failure Fluid overload/noncardiogenic Pulmonary edema secondary to sepsis Possible pneumonia Mucus plugging -BNP greater than 2000, improving -Bronchodilators -diuresed to mobilize fluid -Scott required for BPH as well as diuresis -intubated and [facility]. -Status post bronchoscopy with BAL on 01/22 with significant mucus plugging noted in the right-sided airways including right mainstem bronchus for which BAL was performed with significant clearing of airway. Bronchial washing sent for Gram stain and cultures. Follow-up chest x-ray post bronchoscopy showed significant improvement in aeration of right lung. -Continue mechanical ventilation, vent bundle. Added Mucomyst to mobilize secretions. Continue daily CPAP/SBT trials. -Frequent suctioning required MRSA septicemia, septic right shoulder, L spine diskitis, left supraclavicular abscess sepsis Right shoulder effusion. septic right shoulder, s/p I&D Urinary tract infection. Left Supraclavicular abscess, CT reviewed, showed abscess extending to posterior thorax Diskitis MR L spine with poss diskitis/ osteomyelitis On chronic ( ~50 days) of steroid use. Taper steroid Blood cultures positive for MRSA. 2D echocardiogram did not show any findings consistent with vegetations. Continue vancomycin, Levaquin, meropenem per ID. Patient also had a right shoulder effusion, orthopedics aspirated the shoulder - approximately 30 cc of purulent fluid. had follow-up with orthopedics for their recommendations drainage of that right shoulder. Continue IV antibiotics per infectious disease recommendations. Infectious disease following repeat blood cultures ntd Cardiothoracic surgeon was consulted for evaluation of supraclavicular mass/ poss abscess NM WBC scan 01/18/18 and 01/19/18. Patient received ativan as not able to tolerate CT imaging he was noted agitated in CT and imaging needed to be repeat. Imaging discussed with radiology Dr and it seems patient with multiple focal infections bilateral shoulders, also back at the hardware with diskitis/ osteomyelitis. Neurology, ID, hem onc ff. CTS consulted no surgical intervention required at this time. IR consulted s/p CT-guided drainage of left posterior supraclavicular/posterior chest wall abscess on 01/17/18. s/p US guided drainage of shoulder collection by IR done on 01/23 Reviewed latest cultures from shoulder aspirations KEKE on CKD. Being diuresed, Strict I/O, monitor/ replete electrolytes, follow BUN/ Cr Nephrology following, appreciate recs. Significant fluid removal over the last 3 days. Attempt even fluid balance in view of rising creatinine. Fluid balance appears about the right today 01/25, but mild prerenal azotemia noted CVS Atrial Fibrillation, permanent Noncardiogenic pulmonary edema Hypotension (resolved) Rate well controlled. Recent ECHO EF 65% Dr. Garner following-discussed with Dr. Garner on 01/22. We agreed with diuresing patient for noncardiogenic pulmonary edema while watching renal function/ BP. Hold antihypertensives. On 01/23 ordered Levophed for pressor support to keep MAP greater than 65mm Hg however has not required pressors. Hold off on further diuresis due to rising creatinine. Anemia 1 unit PRBCs ordered to be transfused on 01/23 to keep hemoglobin above 8 g%. No overt evidence of blood loss. Follow CBC. Protein calorie malnutrition -Inserted NGT 01/22 following intubation, Continue tube feeds and advance to goal as well tolerated. BPH - Continue Flomax. DVT prophylaxis per surgeon Access: RIJ central line placed 01/22 01/22: D/w Dr. Mani Sherman, D/W SEAT INSTALLER, D/W patient's family at bedside. 01/23 D/W patient's daughter at bedside regarding current clinical status and plan of care and they voiced understanding and were agreeable with plan of care. D/W ID-Dr Tom on 01/23 01/24: Discussed with patient's family at bedside regarding current clinical status and plan of care and they voiced understanding. Discussed with ID Dr. Tom, discussed with Dr. Piña. Discussed with SEAT INSTALLER. 01/25: I spoke with patient's daughter at the bedside this morning. We discussed goals for ventilator weaning and nutrition and.
--- NOTE | 2018-01-25 11:02 | XR ---
EXAM DATE: 01/25/2018 10:58 AM EST AGE/SEX: 82 years / Male INDICATIONS: Shortness of breath. CLINICAL DATA: This is the patient's initial encounter. Patient reports that signs and symptoms have been present for 1 day and indicates a pain score of Nonresponsive. MEDICAL/SURGICAL HISTORY: Hypertension. Atrial fibrillation. None. [place] [facility] [place]. . FINDINGS: The support devices remain in place. There is no evidence of pneumothorax. There continue be bilatera l pulmonary infiltrates, right greater than left. The overall pattern is about the same compared to t he prior examination. The heart size is stable. There is a catheter overlying the right axillary area as well as at the base of the neck on the left side. CONCLUSION: No significant change with the bilateral pulmonary infiltrates, right greater than left. Electronically signed by: Derik Lopez MD 01/25/2018 11:01 AM EST
--- NOTE | 2018-01-25 11:51 | P.PNNP ---
Subjective Interval history: Patient remain on the vent., now on CPAP. Physical Exam Vital signs: Vital Signs 01/24/18 12:00 01/24/18 12:30 01/24/18 13:00 Temperature 99 F Pulse Rate 76 84 Respiratory Rate 11 L Blood Pressure 111/58 L 124/59 L Pulse Oximetry 96 94 L 93 L 01/24/18 14:00 01/24/18 15:00 01/24/18 16:00 Temperature Pulse Rate 75 80 74 Respiratory Rate Blood Pressure 95/54 L 115/59 L Pulse Oximetry 97 96 01/24/18 17:00 01/24/18 17:02 01/24/18 18:00 Temperature 98.6 F Pulse Rate 82 84 80 Respiratory Rate 12 12 Blood Pressure 118/76 120/57 L Pulse Oximetry 96 95 95 01/24/18 19:00 01/24/18 19:36 01/24/18 20:00 Temperature 98.6 F Pulse Rate 73 73 78 Respiratory Rate 12 12 12 Blood Pressure 101/56 L 122/56 L Pulse Oximetry 96 96 96 01/24/18 21:00 01/24/18 22:00 01/24/18 23:00 Temperature 98.6 F Pulse Rate 95 H 80 77 Respiratory Rate 12 12 Blood Pressure 115/59 L 100/57 L 124/60 Pulse Oximetry 97 95 97 01/24/18 23:50 01/25/18 00:00 01/25/18 01:00 Temperature 99.0 F Pulse Rate 87 76 Respiratory Rate 12 12 Blood Pressure 125/60 115/59 L Pulse Oximetry 97 96 97 01/25/18 02:00 01/25/18 03:00 01/25/18 03:04 Temperature Pulse Rate 72 75 74 Respiratory Rate 12 12 12 Blood Pressure 116/56 L 120/75 Pulse Oximetry 97 96 01/25/18 03:35 01/25/18 04:00 01/25/18 05:00 Temperature 98.9 F Pulse Rate 80 81 Respiratory Rate 12 12 Blood Pressure 110/56 L 111/58 L Pulse Oximetry 97 96 96 01/25/18 06:00 01/25/18 07:00 01/25/18 08:00 Temperature 99.3 F Pulse Rate 75 81 97 H Respiratory Rate 12 Blood Pressure 105/55 L 105/58 L 118/69 Pulse Oximetry 94 L 95 95 01/25/18 08:14 01/25/18 09:00 01/25/18 10:00 Temperature Pulse Rate 81 90 98 H Respiratory Rate 10 L 11 L 10 L Blood Pressure 112/54 L 115/66 Pulse Oximetry 98 96 95 01/25/18 11:00 01/25/18 11:27 Temperature Pulse Rate 93 H Respiratory Rate 12 12 Blood Pressure 94/63 L Pulse Oximetry 95 97 Intake & Output 01/24/18 01/25/18 01/25/18 18:59 06:59 18:59 Intake Total 2167.5 / 2167.5 1675 / 1675 220 / 220 Output Total 1200 / 1200 1030 / 1030 Balance 967.5 / 967.5 645 / 645 220 / 220 Weight 10.6 kg Intake: IV 1312.5 / 1312.5 550 / 550 220 / 220 Versed Inj 100 mg In 100 ml @ 2 100 / 100 0 / 0 MG/HR 2 mls/hr IV.CONT TITRATE PRN Rx#:[id number] Diprivan 1000 mg/100 ml Inj 1, 0 / 0 000 mg In 100 ml @ 5 MCG/KG/MIN 2.082 mls/hr IV.CONT TITRATE PRN Rx#:[id number] Flexbumin 25% Inj 100 ML @ 60 100 / 100 100 / 100 mls/hr IV.SIG DAILY CHAYO Rx#: [id number] Azactam Inj 2 GM In NS Inj 100 200 / 200 200 / 200 100 / 100 ML @ 200 mls/hr IV.SIG Q6H CHAYO Rx#:[id number] Teflaro Inj 300 MG In NS Inj 200 / 200 100 / 100 0 / 0 100 ML @ 100 mls/hr IV.SIG Q12H CHAYO Rx#:[id number] KCl 40 mEq Premix Inj 40 meq In 0 / 0 100 ml @ 25 mls/hr IV.SIG Q2H PRN Rx#:[id number] NS Inj 250 ML @ 15 mls/hr IV. 250 / 250 SIG ONCE CHAYO Rx#:[id number] Vancomycin Inj 1,250 MG In NS 262.5 / 262.5 Inj 250 ML @ 250 mls/hr IV.SIG ONCE ONE Rx#:[id number] fentaNYL 10 mcg/mL Premix Drip 100 / 100 150 / 150 20 / 20 2,500 mcg In 250 ml @ 50 MCG/HR 5 mls/hr IV.SIG TITRATE PRN Rx #:[id number] RIFADIN Inj 300 MG In NS Inj 100 / 100 100 / 100 0 / 0 100 ML @ 100 mls/hr IV.SIG Q12H CHAYO Rx#:[id number] Tube Feeding 675 / 675 865 / 865 Tube Irrigant 60 / 60 Water Bolus Amount 120 / 120 260 / 260 Output: Urine Amount (Catheter) 1200 / 1200 1000 / 1000 Indwelling Urethral Catheter 1200 / 1200 1000 / 1000 Wound Drainage 30 Left Shoulder 0 / 0 Right Shoulder Other: Date of Last Bowel Movement 01/20/18 01/20/18 01/20/18 # Bowel Movements 0 Narrative: Patient is intubated, eyes open, not in distress. HEENT: [place], Non icteric, conjunctiva pale. Neck Supple, JVD not elevated. Lungs: Bilateral basal rales and few rhonchi. Abd. distended. Ext: Mild leg edema. - Urinary Catheter Management Condom Cath placed during this visit: no Indwelling Urethral Catheter Cath placed during this visit: yes Reason for continuing: Hourly intake/output Insertion date: 01/20/18 Insertion time: 11:30 Assessment and Plan - Assessment (1) Acute renal failure Code(s): N17.9 - Acute kidney failure, unspecified Status: Acute (2) Atrial fibrillation Code(s): I48.91 - Unspecified atrial fibrillation Status: Acute Qualifiers: Atrial fibrillation type: unspecified Qualified Code(s): I48.91 - Unspecified atrial fibrillation (3) Sepsis Code(s): A41.9 - Sepsis, unspecified organism Status: Acute Qualifiers: Sepsis type: methicillin resistant Staphylococcus aureus Qualified Code(s) : A41.02 - Sepsis due to Methicillin resistant Staphylococcus aureus - Plan Patient is a 82-year-old male with history of renal insufficiency which is getting worse now most likely due to underlying sepsis MRSA, BP is better, he is on albumin, , creatinine is now 1.9, on Lasix and received Diamox, Continue Lasix, follow the urine out put and BMP. D/W the and daughter at bed side.
--- NOTE | 2018-01-25 13:29 | P.PNID ---
Subjective Remarks: pt clearly improved He is on CPAP he is too weak to be extubated and strill has thick secretions afebrile off pressors 1/4 + bl clx from 01/20 MRSA in sputum no victor hugo fro m shoulder drain Antibiotics: vanco teflaro rifampin Lines: Line sites with no e.o infection Past Medical History: reviewed Allergies/Adverse Reactions: Allergies amoxicillin Allergy (Severe, Verified 01/13/18 20:44) Hives Objective Vital Signs 01/24/18 14:00 01/24/18 15:00 01/24/18 16:00 Temperature Pulse Rate 75 80 74 Respiratory Rate Blood Pressure 95/54 L 115/59 L Pulse Oximetry 97 96 01/24/18 17:00 01/24/18 17:02 01/24/18 18:00 Temperature 98.6 F Pulse Rate 82 84 80 Respiratory Rate 12 12 Blood Pressure 118/76 120/57 L Pulse Oximetry 96 95 95 01/24/18 19:00 01/24/18 19:36 01/24/18 20:00 Temperature 98.6 F Pulse Rate 73 73 78 Respiratory Rate 12 12 12 Blood Pressure 101/56 L 122/56 L Pulse Oximetry 96 96 96 01/24/18 21:00 01/24/18 22:00 01/24/18 23:00 Temperature 98.6 F Pulse Rate 95 H 80 77 Respiratory Rate 12 12 Blood Pressure 115/59 L 100/57 L 124/60 Pulse Oximetry 97 95 97 01/24/18 23:50 01/25/18 00:00 01/25/18 01:00 Temperature 99.0 F Pulse Rate 87 76 Respiratory Rate 12 12 Blood Pressure 125/60 115/59 L Pulse Oximetry 97 96 97 01/25/18 02:00 01/25/18 03:00 01/25/18 03:04 Temperature Pulse Rate 72 75 74 Respiratory Rate 12 12 12 Blood Pressure 116/56 L 120/75 Pulse Oximetry 97 96 01/25/18 03:35 01/25/18 04:00 01/25/18 05:00 Temperature 98.9 F Pulse Rate 80 81 Respiratory Rate 12 12 Blood Pressure 110/56 L 111/58 L Pulse Oximetry 97 96 96 01/25/18 06:00 01/25/18 07:00 01/25/18 08:00 Temperature 99.3 F Pulse Rate 75 81 97 H Respiratory Rate 12 Blood Pressure 105/55 L 105/58 L 118/69 Pulse Oximetry 94 L 95 95 01/25/18 08:14 01/25/18 09:00 01/25/18 10:00 Temperature Pulse Rate 81 90 98 H Respiratory Rate 10 L 11 L 10 L Blood Pressure 112/54 L 115/66 Pulse Oximetry 98 96 95 01/25/18 11:00 01/25/18 11:27 Temperature Pulse Rate 93 H Respiratory Rate 12 12 Blood Pressure 94/63 L Pulse Oximetry 95 97 Intake & Output 01/24/18 01/25/18 01/25/18 18:59 06:59 18:59 Intake Total 2167.5 / 2167.5 1675 / 1675 220 / 220 Output Total 1200 / 1200 1030 / 1030 Balance 967.5 / 967.5 645 / 645 220 / 220 Weight 10.6 kg Intake: IV 1312.5 / 1312.5 550 / 550 220 / 220 Versed Inj 100 mg In 100 ml @ 2 100 / 100 0 / 0 MG/HR 2 mls/hr IV.CONT TITRATE PRN Rx#:[id number] Diprivan 1000 mg/100 ml Inj 1, 0 / 0 000 mg In 100 ml @ 5 MCG/KG/MIN 2.082 mls/hr IV.CONT TITRATE PRN Rx#:[id number] Flexbumin 25% Inj 100 ML @ 60 100 / 100 100 / 100 mls/hr IV.SIG DAILY [facility] Rx#: [id number] Azactam Inj 2 GM In NS Inj 100 200 / 200 200 / 200 100 / 100 ML @ 200 mls/hr IV.SIG Q6H [facility] Rx#:[id number] Teflaro Inj 300 MG In NS Inj 200 / 200 100 / 100 0 / 0 100 ML @ 100 mls/hr IV.SIG Q12H [facility] Rx#:[id number] KCl 40 mEq Premix Inj 40 meq In 0 / 0 100 ml @ 25 mls/hr IV.SIG Q2H PRN Rx#:[id number] NS Inj 250 ML @ 15 mls/hr IV. 250 / 250 SIG ONCE [facility] Rx#:[id number] Vancomycin Inj 1,250 MG In NS 262.5 / 262.5 Inj 250 ML @ 250 mls/hr IV.SIG ONCE ONE Rx#:[id number] fentaNYL 10 mcg/mL Premix Drip 100 / 100 150 / 150 20 / 20 2,500 mcg In 250 ml @ 50 MCG/HR 5 mls/hr IV.SIG TITRATE PRN Rx #:[id number] RIFADIN Inj 300 MG In NS Inj 100 / 100 100 / 100 0 / 0 100 ML @ 100 mls/hr IV.SIG Q12H [facility] Rx#:[id number] Tube Feeding 675 / 675 865 / 865 Tube Irrigant 60 / 60 Water Bolus Amount 120 / 120 260 / 260 Output: Urine Amount (Catheter) 1200 / 1200 1000 / 1000 Indwelling Urethral Catheter 1200 / 1200 1000 / 1000 Wound Drainage 30 30 Left Shoulder 0 / 0 Right Shoulder Other: Date of Last Bowel Movement 01/20/18 01/20/18 01/20/18 # Bowel Movements 0 01/25/18 10:40 Blood - Peripheral Aerobic Blood Culture - Pending 01/25/18 10:40 Blood - Peripheral Anaerobic Blood Culture - Pending 01/25/18 10:52 Blood - Peripheral Aerobic Blood Culture - Pending 01/25/18 10:52 Blood - Peripheral Anaerobic Blood Culture - Pending 01/23/18 14:42 Fluid - Other Gram Stain - Final 01/23/18 14:42 Fluid - Other Body Fluid Culture - Preliminary gram positive cocci 01/20/18 17:14 Blood - Peripheral Aerobic Blood Culture - Final No growth in 5 days 01/20/18 17:14 Blood - Peripheral Anaerobic Blood Culture - Final No growth in 5 days 01/20/18 17:19 Blood - Peripheral Aerobic Blood Culture - Final No growth in 5 days 01/20/18 17:19 Blood - Peripheral Anaerobic Blood Culture - Final S. aureus MRSA 01/24/18 16:30 Fluid - Other Gram Stain - Final 01/24/18 16:30 Fluid - Other Body Fluid Culture - Pending 01/17/18 18:56 Fluid - Other Acid Fast Bacilli Smear - Final No acid fast bacilli seen 01/17/18 18:56 Fluid - Other Mycobacterial Culture - Preliminary No growth in 1 week 01/22/18 17:00 Bronchial - Right Gram Stain - Final 01/22/18 17:00 Bronchial - Right Bronchial Culture - Final S. aureus MRSA 01/22/18 12:25 Sputum - Endotracheal Gram Stain - Final 01/22/18 12:25 Sputum - Endotracheal Sputum Culture - Final S. aureus MRSA 01/15/18 18:25 Wound - Shoulder Fungal Smear - Final No fungal elements seen 01/15/18 18:25 Wound - Shoulder Fungal Culture - Preliminary No growth in 1 week 01/15/18 18:25 Wound - Shoulder Acid Fast Bacilli Smear - Final No acid fast bacilli seen 01/15/18 18:25 Wound - Shoulder Mycobacterial Culture - Preliminary No growth in 1 week 01/15/18 18:25 Wound - Shoulder Fungal Smear - Final No fungal elements seen 01/15/18 18:25 Wound - Shoulder Fungal Culture - Preliminary No growth in 1 week 01/15/18 18:25 Wound - Shoulder Acid Fast Bacilli Smear - Final No acid fast bacilli seen 01/15/18 18:25 Wound - Shoulder Mycobacterial Culture - Preliminary No growth in 1 week 01/17/18 13:07 Blood - Peripheral Aerobic Blood Culture - Final No growth in 5 days 01/17/18 13:07 Blood - Peripheral Anaerobic Blood Culture - Final QNS - See aerobic report. 01/17/18 13:01 Blood - Peripheral Aerobic Blood Culture - Final No growth in 5 days 01/17/18 13:01 Blood - Peripheral Anaerobic Blood Culture - Final No growth in 5 days Lab - Hematology Results 01/24/18 07:58 WBC 5.6 RBC 3.16 L Hgb 8.3 L Hct 26.7 L MCV 84.3 D MCH 26.3 L MCHC 31.2 L RDW 20.0 H Plt Count 155 MPV 7.9 Neut % (Auto) 90.0 H Lymph % (Auto) 5.9 L [place] % (Auto) 2.7 Eos % (Auto) 1.0 Baso % (Auto) 0.4 Neut # (Auto) 5.0 Lymph # (Auto) 0.3 L [place] # (Auto) 0.2 Eos # (Auto) 0.1 Baso # (Auto) 0.0 WBC Differential . Differential Comment Auto diff final Lab - Chemistry Results 01/23/18 01/24/18 01/24/18 13:40 05:34 05:34 Sodium 148 H Potassium 3.9 D 3.8 Chloride 110 H D Carbon Dioxide 33.9 H Anion Gap 4 L BUN 70 H Creatinine 2.05 H Estimated GFR 31 L Random Glucose 151 H Calcium 8.2 L Phosphorus 3.9 Magnesium 1.9 Total Bilirubin 1.4 H AST 8 L ALT 10 L Alkaline Phosphatase 75 Total Creatine Kinase 18 L Total Protein 5.8 L Albumin 3.1 L 01/25/18 06:00 Sodium Potassium Chloride Carbon Dioxide Anion Gap BUN Creatinine 1.90 H Estimated GFR 34 L Random Glucose Calcium Phosphorus Magnesium Total Bilirubin AST ALT Alkaline Phosphatase Total Creatine Kinase Total Protein Albumin Imaging: ITS Impressions Abdomen/Pelvis CT 01/13/18 20:43 CONCLUSION: 1. Marked prostate enlargement. 2. Air-filled distention of sigmoid colon. 3. Cardiomegaly. Small bilateral pleural effusions. 4. Diffuse atherosclerotic disease and arterial calcification. 5. Old insufficiency type fractures of the left side of the sacrum and left- sided pubic rami. Cervical Spine MRI 01/14/18 00:00 CONCLUSION: 1. Examination is degraded by motion artifact. 2. Partial visualization of a mass involving the left supraclavicular region measuring 5.[address] scan of the soft tissues of the neck with IV contrast to further assess if the patient can't hold still for that exam. 3. Diffuse degenerative changes as detailed at each level in the above discussion. Head MRI 01/14/18 00:00 CONCLUSION: 1. No acute intracranial abnormality. 2. Encephalomalacia involving the left frontal lobe. Thoracic Spine MRI 01/14/18 00:00 CONCLUSION: 1. See the MRI of the cervical spine reported separately. 2. Orthopedic hardware at the thoracolumbar junction. 3. Patent central canal throughout. Head CT 01/14/18 00:31 CONCLUSION: 1. No acute intracranial findings. 2. 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 . Venous Doppler Study 01/14/18 09:20 CONCLUSION: 1. The study is negative for lower extremity deep venous thrombosis. Soft Tissue Neck CT 01/16/18 00:00 CONCLUSION: 1. Partially visualized fluid and gas collection deep to the left trapezius muscle in the posterior lower neck extending into the posterior thorax. Chest CT with contrast could be performed to image the remainder of the abnormality. Differential diagnosis includes abscess and hematoma. 2. Degenerative findings of the cervical spine. Chest CT 01/16/18 11:15 CONCLUSION: 1. Lobulated mass in the left supraclavicular region. It is most suggestive of a multi lobulated loculated abscess given the air within several of the masses. 2. Bibasilar areas of consolidation or atelectasis. There are mild bilateral pleural effusion. 3. There is a drain over the right shoulder region. 4. Postsurgical change at the thoracolumbar region as described above. Abscess Drainage CT 01/17/18 00:00 CONCLUSION: 1. Uncomplicated CT guided drainage, as above. WBC Scan Nuclear Medicine 01/18/18 00:00 CONCLUSION: 1. Multiple areas of abnormal uptake including at the upper lumbar spine around the upper left surgical hardware and at the L1-2 disc level. 2. Abnormal activity around the clip joints bilaterally being more prominent on the right. 3. Abnormal activity in the right C2-3 facet and the left C7-T1 facet. 4. Small area of signal abnormality in the posterior right sacroiliac joint region separate from surgical hardware. 5. All these areas are concerning for active infection. Shoulder X-Ray 01/21/18 00:00 CONCLUSION: Unusual positioning of the shoulder but I do not see any obvious displaced fracture of the shoulder. There is a healing third rib fracture and healing seventh rib fracture. Upper Extremity Ultrasound 01/22/18 00:00 CONCLUSION: 1. Lateral right shoulder subcutaneous complex fluid collection concerning for abscess. This is amenable to percutaneous drainage. Abscess Drainage Ultrasound 01/23/18 00:00 CONCLUSION: 1. Uncomplicated ultrasound-guided drainage catheter placement in complex inferolateral right shoulder fluid collection. Lumbar Spine MRI 01/23/18 00:00 CONCLUSION: Little or no change from previous exam. Nothing to suggest abscess Pelvis MRI 01/23/18 00:00 CONCLUSION: 1. Diffuse skin thickening and subcutaneous edema suggestive of cellulitis involving the left buttock without underlying abscess formation. 2. Rectosigmoid colon is distended with fecal debris suggestive of fecal impaction. Clinical correlation is recommended. 3. Markedly enlarged prostate. 4. Degenerative changes and scoliosis of the visualized lower lumbar spine are noted. 5. Bony changes involving the left sacrum likely representing old healed insufficiency fractures. Shoulder MRI 01/23/18 00:00 CONCLUSION: 1. Chronic complete rotator cuff tear. 2. Moderate joint fluid Chest X-Ray 01/25/18 00:00 CONCLUSION: No significant change with the bilateral pulmonary infiltrates, right greater than left. Physical Exam: GENERAL:on vent awake SKIN: Warm and dry. No rash HEAD: Atraumatic. Normocephalic. EYES: Pupils equal and round. No scleral icterus. No injection or drainage. ENT: No nasal bleeding or discharge. Mucous membranes pink and moist. NECK: Trachea midline. No JVD. No palpable masses, but diffuse pain CARDIOVASCULAR: Regular rate and rhythm. nO murmurs RESPIRATORY: No accessory muscle use. decrease BS on R anteriorly to auscultation. + rhonchi b/l GASTROINTESTINAL: Abdomen soft, non-tender, mildly distended. Hepatic and splenic margins not palpable. MUSCULOSKELETAL: Extremities without clubbing, cyanosis, no edema. No obvious deformities. + R shoulder drain in place, cloudy serosang fluid . Left shoulder drains x2 with serosang fluid NEUROLOGICAL: awake, follows PSYCHIATRIC: appears calm Assessment and Plan - Plan High grade staph bacteremia. MRSA 2 D echo neg R shoulder effusion , cw R shoulder septic arhtritis (MRSA)-post I&D. . UTI, recurrent recent ly used Bactrim - clx negative probably 2/2 prior abx use Chronic osteo , diskitis, aw hardware h/o L spine fusion and infection 2 yrs ago Encephalopathy - likely 2/2 sepsis (pt has 2 concomitant infections: UTI and septic R shoulder arthritis - improved with treatment L supraclavicular mass turned out to be abscess on CT his CT showed abscess extending to posterior thorax. Status post drainage. MR L spine with ? diskitis CT chest with contrast was rec'd, but since he got contrast this am, will do w/ o contrast NM WBC * scan dw Dr Henry Sherman: - L spine abnormal enchanceemnt cw diskitis, chronic osteo no fluid collections resp failure, on NIVM PNA, RLL - new , cannot exclude aspiration High grade PNC allergy, but tolerated meropenem OK Pt is now critical and unstable fro resp standpoint looks likel reaccumulated R shoulder effusion sp b/l shoulder drainage Some clinical improvement noted Recs: continue vancomycin cont azactam for now cont teflaro cont Rifampin fu clx JUSTIN dw family @ b/s poonam RN
[2018-01-25 15:58] LABS: ABG Base Excess 4.2 mmol/L (-2-2); ABG PCO2 36 mmHg (38-42); ABG PO2 67 mmHg (61-120)
[2018-01-25] MEDS ORDERED: Oral Hygiene Kit OROPHARYNG SCH (16:00)
[2018-01-25] MEDS ORDERED: Sod Chloride 0.9% Inj 1,000 ML IV.SIG ONE (17:00)
[2018-01-25] MEDS ORDERED: Chlorhexidine 0.12% Oral Kit 15 ML UDC OROPHARYNG SCH (20:00)
[2018-01-25] MEDS: Melatonin 5 MG Tablet PO SCH (20:12)
[2018-01-25] MEDS: Metoprolol Tartrate 25 MG Tablet PO SCH (20:12)
[2018-01-26] MEDS: Oral Hygiene Kit OROPHARYNG SCH ×4 (00:24→15:25)
[2018-01-26] MEDS: Aztreonam Inj 2 GM in Sodium Chloride 0.9% Inj 100 ML IV.SIG SCH ×3 (01:00→14:15)
[2018-01-26] MEDS: RIFAMPIN IV.SIG SCH ×2 (03:08→14:15)
[2018-01-26] MEDS: SODIUM CHLOR 0.9% IV.SIG SCH ×2 (03:08→14:15)
[2018-01-26] MEDS: Levothyroxine 100 MCG Tablet PO SCH (05:53)
[2018-01-26 06:21] LABS: ABG Base Excess 2.1 mmol/L (-2-2); ABG PCO2 32 mmHg (38-42); ABG PO2 92 mmHg (61-120)
--- NOTE | 2018-01-26 06:39 | XR ---
EXAM DATE: 01/26/2018 6:23 AM EST AGE/SEX: 82 years / Male INDICATIONS: Hypoxemia. Evaluate for pneumonia. CLINICAL DATA: This is the patient's subsequent encounter. Patient reports that signs and symptoms h ave been present for 1 week and indicates a pain score of Nonresponsive. MEDICAL/SURGICAL HISTORY: Hypertension. Hypothyroidism. BPH. A-fib. MRSA . neck surgery COMPARISON: [facility], CHEST 1V SINGLE AP, 01/25/2018. . FINDINGS: Portable AP view of the chest demonstrate a normal-sized cardiac silhouette. ETT, nasogastric tube, a nd right IJ line remain present. Pigtail catheter overlies the right axillary region and left supracl avicular region. There is improved aeration bilaterally with only minimal residual hazy opacity at th e right lung base. No pneumothorax is visualized. Bones demonstrate no acute abnormality. CONCLUSION: Improved aeration at the lung bases bilaterally. There is only mild residual opacity at the right bas e. Electronically signed by: Misbah Horne MD 01/26/2018 6:38 AM EST
[2018-01-26 07:30] LABS: Calcium 8.2 mg/dL (8.5-10.1); Carbon Dioxide 26.3 meq/L (21.0-32.0); Potassium 4.5 meq/L (3.5-5.1)
[2018-01-26 07:32] LABS: Vancomycin,Random 21.4 Comment
[2018-01-26] MEDS: Pantoprazole Sodium 20 MG DR Tablet PO SCH (08:13)
[2018-01-26] MEDS: Citalopram 20 MG Tablet PO SCH (08:13)
[2018-01-26] MEDS: Senna/Docusate Sodium 8.6/50 MG Tablet PO SCH ×2 (08:13→20:37)
[2018-01-26] MEDS: Chlorhexidine 0.12% Oral Kit 15 ML UDC OROPHARYNG SCH ×2 (08:13→20:37)
[2018-01-26] MEDS: amLODIPine 5 MG Tablet PO SCH (08:14)
[2018-01-26] MEDS: Metoprolol Tartrate 25 MG Tablet PO SCH ×2 (08:15→20:36)
[2018-01-26] MEDS: Albumin Human 25% Inj 100 ML IV.SIG SCH (08:15)
[2018-01-26] MEDS: Potassium Chloride 25 MEQ Effervescent Tablet PO SCH (08:15)
--- NOTE | 2018-01-26 08:36 | P.PNOP ---
Subjective Interval history: pt intubated more alert taken off fentanyl on no pressor meds at this time Dr. Adams spoke with patient's sister; explained to her his complex medical/ orthopedic condition; answered multiple questions Physical Exam Vital signs: Vital Signs 01/25/18 09:00 01/25/18 10:00 01/25/18 11:00 Temperature Pulse Rate 90 98 H 93 H Respiratory Rate 11 L 10 L 12 Blood Pressure 112/54 L 115/66 94/63 L Pulse Oximetry 96 95 95 01/25/18 11:27 01/25/18 12:00 01/25/18 13:00 Temperature Pulse Rate 107 H 106 H Respiratory Rate 12 Blood Pressure 166/64 H Pulse Oximetry 97 95 95 01/25/18 13:03 01/25/18 14:00 01/25/18 15:00 Temperature Pulse Rate 102 H 108 H 114 H Respiratory Rate 13 Blood Pressure 109/75 85/55 L 92/60 L Pulse Oximetry 95 93 L 92 L 01/25/18 15:36 01/25/18 16:00 01/25/18 16:44 Temperature 98.3 F Pulse Rate 94 H 122 H 120 H Respiratory Rate 14 Blood Pressure 112/63 92/50 L Pulse Oximetry 93 L 92 L 96 01/25/18 16:47 01/25/18 17:00 01/25/18 18:00 Temperature Pulse Rate 122 H 117 H 117 H Respiratory Rate Blood Pressure 115/56 L 121/65 112/66 Pulse Oximetry 84 L 94 L 96 01/25/18 19:00 01/25/18 20:00 01/25/18 20:07 Temperature 101 F H Pulse Rate 112 H 112 H Respiratory Rate 12 Blood Pressure 107/55 L 119/65 Pulse Oximetry 95 94 L 95 01/25/18 21:00 01/25/18 21:19 01/25/18 22:00 Temperature Pulse Rate 104 H 93 H 114 H Respiratory Rate 12 Blood Pressure 112/74 100/68 Pulse Oximetry 95 96 01/25/18 23:00 01/25/18 23:28 01/25/18 23:58 Temperature Pulse Rate 106 H 106 H Respiratory Rate Blood Pressure 106/73 Pulse Oximetry 96 99 100 01/25/18 23:59 01/26/18 00:00 01/26/18 01:00 Temperature 98.5 F Pulse Rate 105 H 105 H 101 H Respiratory Rate Blood Pressure 105/72 120/75 Pulse Oximetry 100 100 100 01/26/18 02:00 01/26/18 03:00 01/26/18 03:10 Temperature Pulse Rate 96 H 103 H 102 H Respiratory Rate Blood Pressure 108/58 L 124/62 Pulse Oximetry 100 97 100 01/26/18 03:41 01/26/18 03:45 01/26/18 04:00 Temperature 99.1 F Pulse Rate 97 H 103 H Respiratory Rate 16 16 Blood Pressure 125/72 Pulse Oximetry 100 100 01/26/18 05:00 01/26/18 06:00 01/26/18 07:50 Temperature Pulse Rate 114 H 96 H 100 H Respiratory Rate 11 L Blood Pressure 106/51 L 104/69 Pulse Oximetry 100 100 100 Intake & Output 01/25/18 01/26/18 01/26/18 18:59 06:59 18:59 Intake Total 2156 / 2156 562 / 562 Output Total 1030 / 1030 460 / 460 Balance 1126 / 1126 102 / 102 Weight 67.9 kg Intake: IV 1520 / 1520 400 / 400 Versed Inj 100 mg In 100 ml @ 2 0 / 0 MG/HR 2 mls/hr IV.CONT TITRATE PRN Rx#:[id number] Diprivan 1000 mg/100 ml Inj 1, 0 / 0 000 mg In 100 ml @ 5 MCG/KG/MIN 2.082 mls/hr IV.CONT TITRATE PRN Rx#:[id number] Flexbumin 25% Inj 100 ML @ 60 100 / 100 mls/hr IV.SIG DAILY [facility] Rx#: [id number] Azactam Inj 2 GM In NS Inj 100 200 / 200 200 / 200 ML @ 200 mls/hr IV.SIG Q6H [facility] Rx#:[id number] Teflaro Inj 300 MG In NS Inj 100 / 100 100 / 100 100 ML @ 100 mls/hr IV.SIG Q12H [facility] Rx#:[id number] KCl 40 mEq Premix Inj 40 meq In 0 / 0 100 ml @ 25 mls/hr IV.SIG Q2H [facility] Rx#:[id number] NS Inj 1,000 ML @ Wide Open IV. 1000 / 1000 SIG BOLUS ONE Rx#:[id number] fentaNYL 10 mcg/mL Premix Drip 20 / 20 2,500 mcg In 250 ml @ 50 MCG/HR 5 mls/hr IV.SIG TITRATE PRN Rx #:[id number] RIFADIN Inj 300 MG In NS Inj 100 / 100 100 / 100 100 ML @ 100 mls/hr IV.SIG Q12H [facility] Rx#:[id number] Tube Feeding 516 / 516 162 / 162 Tube Irrigant 60 / 60 Water Bolus Amount 60 / 60 Output: Urine Amount (Catheter) 985 / 985 400 / 400 Indwelling Urethral Catheter 985 / 985 400 / 400 Wound Drainage 45 / 45 60 / 60 # 2 Left Shoulder 35 / 35 Left Shoulder 0 / 0 Right Shoulder 45 / 45 25 / 25 Other: Date of Last Bowel Movement 01/20/18 01/26/18 # Bowel Movements 0 3 Narrative: patient intubated but alert bilateral shoulder drains serosangious fluid with no gross pus - Urinary Catheter Management Condom Cath placed during this visit: no Indwelling Urethral Catheter Cath placed during this visit: yes Reason for continuing: Hourly intake/output Insertion date: 01/20/18 Insertion time: 11:30 Results - Labs CBC & Chem 7: 01/24/18 07:58 01/26/18 06:35 Laboratory Results - last 24 hr 01/26/18 01/26/18 06:09 06:35 Puncture Site Right radial Patient Temperature 98.6 O2 Saturation 94 ABG pH 7.51 H* ABG pCO2 32 L ABG pO2 92 ABG HCO3 25 ABG O2 Content 10.1 L ABG Base Excess 2.1 H ABG Methemoglobin 1.9 Blane Test Present Hemoglobin 7.5 L* Carboxyhemoglobin 1.2 O2 Delivery Device Ventilator Vent Setting Aprv /bilevel Inspired O2 45 Critical Value Yes Sodium 152 H Potassium 4.5 Chloride 118 H Carbon Dioxide 26.3 Anion Gap 8 BUN 83 H Creatinine 2.29 H Estimated GFR 28 L Random Glucose 137 H Calcium 8.2 L Random Vancomycin 21.4 Microbiology 01/24/18 16:30 Fluid - Other Gram Stain - Final 01/24/18 16:30 Fluid - Other Body Fluid Culture - Preliminary No growth in 24 hours 01/23/18 14:42 Fluid - Other Gram Stain - Final 01/23/18 14:42 Fluid - Other Body Fluid Culture - Preliminary gram positive cocci 01/20/18 17:14 Blood - Peripheral Aerobic Blood Culture - Final No growth in 5 days 01/20/18 17:14 Blood - Peripheral Anaerobic Blood Culture - Final No growth in 5 days 01/20/18 17:19 Blood - Peripheral Aerobic Blood Culture - Final No growth in 5 days 01/20/18 17:19 Blood - Peripheral Anaerobic Blood Culture - Final S. aureus MRSA - Imaging Impressions Chest X-Ray 01/25/18 00:00 CONCLUSION: No significant change with the bilateral pulmonary infiltrates, right greater than left. Chest X-Ray 01/26/18 06:00 CONCLUSION: Improved aeration at the lung bases bilaterally. There is only mild residual opacity at the right base. - Procedures Right shoulder consent for aspiration obtained. Time out performed. Right shoulder prepped sterilely with alcohol and betadine. Sterile gloves doned. Right shoulder aspirated and sent for gram stain, culture, crystals, and cell count. 30 cc of purulent drainage aspirated and sent to lab. sterile dressing applied. Patient tolerated procedure well. Assessment and Plan - Assessment and Plan Abscess right shoulder. 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 Surgery: I&D right shoulder, POD #11 PLAN: 1. IV antibiotics per infectious disease. Intraoperative cultures taken of the right shoulder are positive for MRSA. Recent cultures taken of the left supraclavicular joint also are positive for MRSA. Drain placed in the right shoulder by interventional radiology. Awaiting culture results. 2. Source of sepsis still unclear. 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 Possible indolent infection that has developed an abscess of the right shoulder. We will defer to neurosurgery and other specialists for overall management. Neurosurgery consulted and will evaluate spine for infection. 3. Improving respiratory status. Patient now on ISC, intubated, and sedated. Bronchoscope recently performed showing mucous plugs. 4. Effusion improving with drain to right shoulder. 5. Continue drainage of left and right shoulders 6. Will continue to follow orthopedically.
--- NOTE | 2018-01-26 09:11 | P.PNCC ---
Subjective Subjective Remarks/Hospital Course: This 82-year-old gentleman was transferred emergently from the floor to the surgical intensive care unit because of rapid onset combined hypoxemic and hypercapnic respiratory failure. On arrival he has diffuse crackles throughout both lung santizo and his neck veins are distended. On admission several days ago he was dehydrated and had an element of acute kidney injury. His weight is up about 5 kg since admission though his renal function has improved. On arrival he is breathing 40 times a minute on a nonrebreathing mask with pH of 7.18 and P CO2 of 74. His acidosis is purely respiratory and associated with bronchospasm from fluid overload. B natruretic peptide is elevated to greater than 2000. Other pertinent major problems include septic joint drainage and treatment. 01/22: Critical care reconsulted for worsening resp status. On BIPAP with fulkl face mask. CXR with bilat infiltrates/ pulm edema. Reaccumulated rt shoulder collection. After d/w family proceeded with intubation and placed patient on [facility] ventilation. Placed central line. D/W Dr. Mani Sherman who is arranging US guided drainage/ drain placement for shoulder collection. 01/23: Remains sedated, orally intubated on mechanical ventilation. Significant diuresis with 11 L negative over the last 3 days. Awaiting left shoulder percutaneous drainage of collection by interventional radiology today. 1 unit PRBCs ordered as patient has borderline blood pressures with hemoglobin less than 8. 01/24: Sedated, arousable, orally intubated on mechanical ventilation. Tolerating tube feeds. s/p [id number] drain placement in rt shoulder fluid collection on 01/23. 01/25: He had a good trial on spontaneous breathing yesterday. Mechanical ventilation overnight. Started on spontaneous breathing trial this morning at 12/5 and volumes were small. Increased to 15/8 and volumes looked better with each breath. Still producing lots of thick secretions, dark yellow. Unable to extubate due to general weakness and inability to cough numerous secretions. FiO2 reduced to 40% and gas exchange good. Clearly improved respiratory function from yesterday. Tolerating tube feeds well, gastric residuals minimal , remains constipated and will start on milk of magnesia and. 01/26: Right lower lobe nicely reexpanded after 24 hours on APRV. FI02 reduced to 30%. More alert today, will attempt to extubate. Worsening azotemia appears to be prerenal. We will need to give some volume back. General strength and alertness has improved. Objective Vital Signs / I&O: Vital Signs 01/25/18 10:00 01/25/18 11:00 01/25/18 11:27 Temperature Pulse Rate 98 H 93 H Respiratory Rate 10 L 12 12 Blood Pressure 115/66 94/63 L Pulse Oximetry 95 95 97 01/25/18 12:00 01/25/18 13:00 01/25/18 13:03 Temperature Pulse Rate 107 H 106 H 102 H Respiratory Rate Blood Pressure 166/64 H 109/75 Pulse Oximetry 95 95 95 01/25/18 14:00 01/25/18 15:00 01/25/18 15:36 Temperature Pulse Rate 108 H 114 H 94 H Respiratory Rate 13 14 Blood Pressure 85/55 L 92/60 L Pulse Oximetry 93 L 92 L 93 L 01/25/18 16:00 01/25/18 16:44 01/25/18 16:47 Temperature 98.3 F Pulse Rate 122 H 120 H 122 H Respiratory Rate Blood Pressure 112/63 92/50 L 115/56 L Pulse Oximetry 92 L 96 84 L 01/25/18 17:00 01/25/18 18:00 01/25/18 19:00 Temperature Pulse Rate 117 H 117 H 112 H Respiratory Rate Blood Pressure 121/65 112/66 107/55 L Pulse Oximetry 94 L 96 95 01/25/18 20:00 01/25/18 20:07 01/25/18 21:00 Temperature 101 F H Pulse Rate 112 H 104 H Respiratory Rate 12 Blood Pressure 119/65 112/74 Pulse Oximetry 94 L 95 95 01/25/18 21:19 01/25/18 22:00 01/25/18 23:00 Temperature Pulse Rate 93 H 114 H 106 H Respiratory Rate 12 Blood Pressure 100/68 Pulse Oximetry 96 96 01/25/18 23:28 01/25/18 23:58 01/25/18 23:59 Temperature Pulse Rate 106 H 105 H Respiratory Rate Blood Pressure 106/73 105/72 Pulse Oximetry 99 100 100 01/26/18 00:00 01/26/18 01:00 01/26/18 02:00 Temperature 98.5 F Pulse Rate 105 H 101 H 96 H Respiratory Rate Blood Pressure 120/75 108/58 L Pulse Oximetry 100 100 100 12/02/18 03:00 01/26/18 03:10 01/26/18 03:41 Temperature Pulse Rate 103 H 102 H 97 H Respiratory Rate 16 Blood Pressure 124/62 Pulse Oximetry 97 100 01/26/18 03:45 01/26/18 04:00 01/26/18 05:00 Temperature 99.1 F Pulse Rate 103 H 114 H Respiratory Rate 16 Blood Pressure 125/72 106/51 L Pulse Oximetry 100 100 100 01/26/18 06:00 01/26/18 07:50 Temperature Pulse Rate 96 H 100 H Respiratory Rate 11 L Blood Pressure 104/69 Pulse Oximetry 100 100 Intake & Output 01/25/18 01/26/18 01/26/18 18:59 06:59 18:59 Intake Total 2156 / 2156 562 / 562 Output Total 1030 / 1030 460 / 460 Balance 1126 / 1126 102 / 102 Weight 67.9 kg Intake: IV 1520 / 1520 400 / 400 Versed Inj 100 mg In 100 ml @ 2 0 / 0 MG/HR 2 mls/hr IV.CONT TITRATE PRN Rx#:[id number] Diprivan 1000 mg/100 ml Inj 1, 0 / 0 000 mg In 100 ml @ 5 MCG/KG/MIN 2.082 mls/hr IV.CONT TITRATE PRN Rx#:[id number] Flexbumin 25% Inj 100 ML @ 60 100 / 100 mls/hr IV.SIG DAILY [facility] Rx#: [id number] Azactam Inj 2 GM In NS Inj 100 200 / 200 200 / 200 ML @ 200 mls/hr IV.SIG Q6H [facility] Rx#:[id number] Teflaro Inj 300 MG In NS Inj 100 / 100 100 / 100 100 ML @ 100 mls/hr IV.SIG Q12H [facility] Rx#:[id number] KCl 40 mEq Premix Inj 40 meq In 0 / 0 100 ml @ 25 mls/hr IV.SIG Q2H PRN Rx#:[id number] NS Inj 1,000 ML @ Wide Open IV. 1000 / 1000 SIG BOLUS ONE Rx#:[id number] fentaNYL 10 mcg/mL Premix Drip 20 / 20 2,500 mcg In 250 ml @ 50 MCG/HR 5 mls/hr IV.SIG TITRATE PRN Rx #:[id number] RIFADIN Inj 300 MG In NS Inj 100 / 100 100 / 100 100 ML @ 100 mls/hr IV.SIG Q12H [facility] Rx#:[id number] Tube Feeding 516 / 516 162 / 162 Tube Irrigant 60 / 60 Water Bolus Amount 60 / 60 Output: Urine Amount (Catheter) 985 / 985 400 / 400 Indwelling Urethral Catheter 985 / 985 400 / 400 Wound Drainage 45 / 45 60 / 60 # 2 Left Shoulder 35 / 35 Left Shoulder 0 / 0 Right Shoulder 45 / 45 25 / 25 Other: Date of Last Bowel Movement 01/20/18 01/26/18 # Bowel Movements 0 3 Result Diagrams: 01/24/18 07:58 01/26/18 06:35 Objective Remarks: General: Not sedated, orally intubated on mech ventilation. HEENT: Neck chronically stiff consistent with age. Chest/pulm: On mech vent, air entry improved at right base, lung santizo uniformly clear, no wheezes or crackles. CVS: S1S2, irregular rhythm, no JVD. Improved rate control this morning. Abd: Soft, nontender, bowel sounds present. No guarding. No distention. Ext: Warm bilaterally. Bilateral drains in shoulder collections. Limbs are warm and well perfused. Neuro: Opens eyes to soft voice and tracks with eyes. Nods head to questions. Moves arms and legs weakly. Recognizes family Assessment and Plan - Assessment and Plan Plan: Assessment and Plan: Acute combined hypercapnic and hypoxemic respiratory failure Fluid overload/noncardiogenic Pulmonary edema secondary to sepsis Possible pneumonia Mucus plugging -BNP greater than 2000, improving -Bronchodilators -diuresed to mobilize fluid -Scott required for BPH as well as diuresis -intubated and placed on mech ventilation on 01/22. -Status post bronchoscopy with BAL on 01/22 with significant mucus plugging noted in the right-sided airways including right mainstem bronchus for which BAL was performed with significant clearing of airway. Bronchial washing sent for Gram stain and cultures. Follow-up chest x-ray post bronchoscopy showed significant improvement in aeration of right lung. -Continue mechanical ventilation, vent bundle. Added Mucomyst to mobilize secretions. -Frequent suctioning required -Overnight on APRV. Lung santizo clear, chest x-ray much improved, attempt extubation today 01/25. MRSA septicemia, septic right shoulder, L spine diskitis, left supraclavicular abscess sepsis Right shoulder effusion. septic right shoulder, s/p I&D Urinary tract infection. Left Supraclavicular abscess, CT reviewed, showed abscess extending to posterior thorax Diskitis MR L spine with poss diskitis/ osteomyelitis On chronic ( ~50 days) of steroid use. Taper steroid Blood cultures positive for MRSA. 2D echocardiogram did not show any findings consistent with vegetations. Continue vancomycin, Levaquin, meropenem per ID. Patient also had a right shoulder effusion, orthopedics aspirated the shoulder - approximately 30 cc of purulent fluid. had follow-up with orthopedics for their recommendations drainage of that right shoulder. Continue IV antibiotics per infectious disease recommendations. Infectious disease following repeat blood cultures ntd Cardiothoracic surgeon was consulted for evaluation of supraclavicular mass/ poss abscess NM WBC scan 01/18/18 and 01/19/18. Patient received ativan as not able to tolerate CT imaging he was noted agitated in CT and imaging needed to be repeat. Imaging discussed with radiology Dr and it seems patient with multiple focal infections bilateral shoulders, also back at the hardware with diskitis/ osteomyelitis. Neurology, ID, hem onc ff. CTS consulted no surgical intervention required at this time. IR consulted s/p CT-guided drainage of left posterior supraclavicular/posterior chest wall abscess on 01/17/18. s/p US guided drainage of shoulder collection by IR done on 01/23 KEKE on CKD. Being diuresed, Strict I/O, monitor/ replete electrolytes, follow BUN/ Cr Nephrology following, appreciate recs. Significant fluid removal over the last 3 days. Attempt even fluid balance in view of rising creatinine. Fluid balance appears about the right today 01/25, but mild prerenal azotemia noted Worsening prerenal azotemia, we are forced to initiate moderate hydration. We will follow BNP. CVS Atrial Fibrillation, permanent Noncardiogenic pulmonary edema Hypotension (resolved) Rate well controlled. Recent ECHO EF 65% Dr. Garner following-discussed with Dr. Garner on 01/22. We agreed with diuresing patient for noncardiogenic pulmonary edema while watching renal function/ BP. Hold antihypertensives. On 01/23 ordered Levophed for pressor support to keep MAP greater than 65mm Hg however has not required pressors. Hold off on further diuresis due to rising creatinine. Start Lopressor 12 and half milligrams twice daily Anemia 1 unit PRBCs ordered to be transfused on 01/23 to keep hemoglobin above 8 g%. No overt evidence of blood loss. Follow CBC. Protein calorie malnutrition -Inserted NGT 01/22 following intubation, Continue tube feeds and advance to goal as well tolerated. BPH - Continue Flomax. DVT prophylaxis per surgeon Access: RIJ central line placed 01/22 01/22: D/w Dr. Mani Sherman, D/W WORK[employer] DIRECTOR, D/W patient's family at bedside. 01/23 D/W patient's daughter at bedside regarding current clinical status and plan of care and they voiced understanding and were agreeable with plan of care. D/W ID-Dr Tom on 01/23 01/24: Discussed with patient's family at bedside regarding current clinical status and plan of care and they voiced understanding. Discussed with ID Dr. Tom, discussed with Dr. Piña. Discussed with WORK[employer]EL[employer] PRO[employer] DIRECTOR. 01/25: I spoke with patient's daughter at the bedside this morning. We discussed goals for ventilator weaning and nutrition. I spoke with extensive family members later in the day. 01/26: I spoke at length with the patient's daughter this morning and will speak extensively with other family members later today.
[2018-01-26] MEDS: Dextrose 5% in Water Inj 1,000 ML IV.CONT SCH ×2 (10:23→23:14)
--- NOTE | 2018-01-26 10:29 | P.PNNP ---
Subjective Interval history: Patient remains orally intubated on ventilator with sedation. Responds to commands. Creatinine increased at 2.29. <Jeni Nickerson - Last Filed: 01/26/18 10:22> Physical Exam Vital signs: Vital Signs 01/25/18 11:00 01/25/18 11:27 01/25/18 12:00 Temperature Pulse Rate 93 H 107 H Respiratory Rate 12 12 Blood Pressure 94/63 L 166/64 H Pulse Oximetry 95 97 95 01/25/18 13:00 01/25/18 13:03 01/25/18 14:00 Temperature Pulse Rate 106 H 102 H 108 H Respiratory Rate 13 Blood Pressure 109/75 85/55 L Pulse Oximetry 95 95 93 L 01/25/18 15:00 01/25/18 15:36 01/25/18 16:00 Temperature 98.3 F Pulse Rate 114 H 94 H 122 H Respiratory Rate 14 Blood Pressure 92/60 L 112/63 Pulse Oximetry 92 L 93 L 92 L 01/25/18 16:44 01/25/18 16:47 01/25/18 17:00 Temperature Pulse Rate 120 H 122 H 117 H Respiratory Rate Blood Pressure 92/50 L 115/56 L 121/65 Pulse Oximetry 96 84 L 94 L 01/25/18 18:00 01/25/18 19:00 01/25/18 20:00 Temperature 101 F H Pulse Rate 117 H 112 H 112 H Respiratory Rate Blood Pressure 112/66 107/55 L 119/65 Pulse Oximetry 96 95 94 L 01/25/18 20:07 01/25/18 21:00 01/25/18 21:19 Temperature Pulse Rate 104 H 93 H Respiratory Rate 12 12 Blood Pressure 112/74 Pulse Oximetry 95 95 01/25/18 22:00 01/25/18 23:00 01/25/18 23:28 Temperature Pulse Rate 114 H 106 H Respiratory Rate Blood Pressure 100/68 Pulse Oximetry 96 96 99 01/25/18 23:58 01/25/18 23:59 01/26/18 00:00 Temperature 98.5 F Pulse Rate 106 H 105 H 105 H Respiratory Rate Blood Pressure 106/73 105/72 Pulse Oximetry 100 100 100 01/26/18 01:00 01/26/18 02:00 01/26/18 03:00 Temperature Pulse Rate 101 H 96 H 103 H Respiratory Rate Blood Pressure 120/75 108/58 L Pulse Oximetry 100 100 97 01/26/18 03:10 01/26/18 03:41 01/26/18 03:45 Temperature Pulse Rate 102 H 97 H Respiratory Rate 16 16 Blood Pressure 124/62 Pulse Oximetry 100 100 01/26/18 04:00 01/26/18 05:00 01/26/18 06:00 Temperature 99.1 F Pulse Rate 103 H 114 H 96 H Respiratory Rate Blood Pressure 125/72 106/51 L 104/69 Pulse Oximetry 100 100 100 01/26/18 07:00 01/26/18 07:15 01/26/18 07:50 Temperature Pulse Rate 97 H 99 H 100 H Respiratory Rate 18 17 11 L Blood Pressure 113/63 Pulse Oximetry 100 100 100 01/26/18 08:00 01/26/18 09:00 01/26/18 10:00 Temperature 98.5 F Pulse Rate 90 93 H 99 H Respiratory Rate 13 11 L 12 Blood Pressure 111/66 111/59 L 116/58 L Pulse Oximetry 100 100 100 Intake & Output 01/25/18 01/26/18 01/26/18 18:59 06:59 18:59 Intake Total 2156 / 2156 562 / 562 200 / 200 Output Total 1030 / 1030 460 / 460 Balance 1126 / 1126 102 / 102 200 / 200 Weight 67.9 kg Intake: IV 1520 / 1520 400 / 400 200 / 200 Versed Inj 100 mg In 100 ml @ 2 0 / 0 MG/HR 2 mls/hr IV.CONT TITRATE PRN Rx#:[id number] Diprivan 1000 mg/100 ml Inj 1, 0 / 0 000 mg In 100 ml @ 5 MCG/KG/MIN 2.082 mls/hr IV.CONT TITRATE PRN Rx#:[id number] Flexbumin 25% Inj 100 ML @ 60 100 / 100 100 / 100 mls/hr IV.SIG DAILY [facility] Rx#: [id number] Azactam Inj 2 GM In NS Inj 100 200 / 200 200 / 200 100 / 100 ML @ 200 mls/hr IV.SIG Q6H [facility] Rx#:[id number] Teflaro Inj 300 MG In NS Inj 100 / 100 100 / 100 100 ML @ 100 mls/hr IV.SIG Q12H [facility] Rx#:[id number] KCl 40 mEq Premix Inj 40 meq In 0 / 0 100 ml @ 25 mls/hr IV.SIG Q2H PRN Rx#:[id number] NS Inj 1,000 ML @ Wide Open IV. 1000 / 1000 SIG BOLUS ONE Rx#:[id number] fentaNYL 10 mcg/mL Premix Drip 20 / 20 2,500 mcg In 250 ml @ 50 MCG/HR 5 mls/hr IV.SIG TITRATE PRN Rx #:[id number] RIFADIN Inj 300 MG In NS Inj 100 / 100 100 / 100 100 ML @ 100 mls/hr IV.SIG Q12H [facility] Rx#:[id number] Tube Feeding 516 / 516 162 / 162 Tube Irrigant 60 / 60 Water Bolus Amount 60 / 60 Output: Urine Amount (Catheter) 985 / 985 400 / 400 Indwelling Urethral Catheter 985 / 985 400 / 400 Wound Drainage 45 / 45 60 / 60 # 2 Left Shoulder 35 / 35 Left Shoulder 0 / 0 Right Shoulder 45 / 45 25 / 25 Other: Date of Last Bowel Movement 01/20/18 01/26/18 # Bowel Movements 0 3 Narrative: GENERAL: orally intubated on sedation. Alert. SKIN: Warm and dry. NECK: Supple, trachea midline. No JVD. CARDIOVASCULAR: Regular rate and rhythm without murmurs, gallops, or rubs. RESPIRATORY: Breath sounds equal bilaterally. No accessory muscle use. GASTROINTESTINAL: Abdomen soft, non-tender, nondistended. MUSCULOSKELETAL: No cyanosis, or edema. Bilateral shoulder drains. BACK: Nontender without obvious deformity. No CVA tenderness. - Urinary Catheter Management Condom Cath placed during this visit: no Indwelling Urethral Catheter Cath placed during this visit: yes Reason for continuing: Hourly intake/output Insertion date: 01/20/18 Insertion time: 11:30 <Jeni Nickerson - Last Filed: 01/26/18 10:22> Vital signs: Vital Signs 01/26/18 22:00 01/26/18 23:00 01/26/18 23:47 Temperature Pulse Rate 81 73 Respiratory Rate Blood Pressure 115/61 130/62 Pulse Oximetry 100 100 100 01/27/18 00:00 01/27/18 01:00 01/27/18 02:00 Temperature 97.6 F Pulse Rate 76 74 77 Respiratory Rate 26 H Blood Pressure 106/62 115/64 118/69 Pulse Oximetry 100 100 100 01/27/18 03:00 01/27/18 03:35 01/27/18 04:00 Temperature 97.9 F Pulse Rate 74 90 100 H Respiratory Rate 24 Blood Pressure 129/66 124/67 Pulse Oximetry 100 100 100 01/27/18 05:00 01/27/18 06:00 01/27/18 07:00 Temperature Pulse Rate 90 91 H 95 H Respiratory Rate 19 Blood Pressure 120/65 138/73 154/67 H Pulse Oximetry 100 100 100 01/27/18 08:00 01/27/18 08:30 01/27/18 08:43 Temperature 98.2 F Pulse Rate 83 85 Respiratory Rate 24 26 H Blood Pressure 125/67 Pulse Oximetry 100 100 100 01/27/18 09:00 01/27/18 10:00 01/27/18 10:13 Temperature Pulse Rate 100 H 85 88 Respiratory Rate 22 26 H 18 Blood Pressure 126/69 107/55 L Pulse Oximetry 100 100 01/27/18 11:00 01/27/18 12:00 01/27/18 13:00 Temperature 98.1 F Pulse Rate 92 H 94 H 94 H Respiratory Rate 22 28 H 18 Blood Pressure 107/70 118/60 121/62 Pulse Oximetry 100 100 100 01/27/18 14:00 01/27/18 15:00 01/27/18 16:00 Temperature Pulse Rate 97 H 103 H 104 H Respiratory Rate 22 24 28 H Blood Pressure 122/59 L 126/57 L 129/61 Pulse Oximetry 100 100 100 01/27/18 16:17 01/27/18 17:00 01/27/18 18:00 Temperature Pulse Rate 74 102 H 101 H Respiratory Rate 18 24 24 Blood Pressure 114/56 L 124/73 Pulse Oximetry 100 100 01/27/18 21:09 Temperature Pulse Rate 95 H Respiratory Rate 18 Blood Pressure Pulse Oximetry 98 Intake & Output 01/27/18 01/27/18 01/28/18 06:59 18:59 06:59 Intake Total 529 / 529 1946.5 / 1946.5 Output Total 450 / 450 930 / 930 Balance 79 / 79 1016.5 / 1016.5 Weight 73 kg Intake: IV 300 / 300 1562.5 / 1562.5 D5W Inj 1,000 ML @ 75 mls/hr IV 100 / 100 1000 / 1000 .CONT .[id number] [facility] Rx#:[id number] Flexbumin 25% Inj 100 ML @ 60 100 / 100 mls/hr IV.SIG DAILY [facility] Rx#: [id number] Teflaro Inj 300 MG In NS Inj 100 / 100 100 / 100 100 ML @ 100 mls/hr IV.SIG Q12H [facility] Rx#:[id number] Vancomycin Inj 1,250 MG In NS 262.5 / 262.5 Inj 250 ML @ 250 mls/hr IV.SIG ONCE ONE Rx#:[id number] RIFADIN Inj 300 MG In NS Inj 100 / 100 100 / 100 100 ML @ 100 mls/hr IV.SIG Q12H [facility] Rx#:[id number] Tube Feeding 109 / 109 234 / 234 Tube Irrigant 120 / 120 Water Bolus Amount 150 / 150 Output: Urine Amount (Catheter) 450 / 450 850 / 850 Indwelling Urethral Catheter 450 / 450 850 / 850 Wound Drainage 80 / 80 # 2 Left Shoulder 30 / 30 Left Shoulder 0 / 0 Right Shoulder 50 / 50 Other: Date of Last Bowel Movement 01/27/18 01/27/18 # Bowel Movements 1 0 # Incontinent Bowel Movements 1 - Urinary Catheter Management Condom Cath placed during this visit: no Indwelling Urethral Catheter Cath placed during this visit: no <Stephany King - Last Filed: 01/27/18 21:42> Assessment and Plan - Assessment (1) Acute renal failure Code(s): N17.9 - Acute kidney failure, unspecified Status: Acute (2) Atrial fibrillation Code(s): I48.91 - Unspecified atrial fibrillation Status: Acute Qualifiers: Atrial fibrillation type: unspecified Qualified Code(s): I48.91 - Unspecified atrial fibrillation (3) Sepsis Code(s): A41.9 - Sepsis, unspecified organism Status: Acute Qualifiers: Sepsis type: methicillin resistant Staphylococcus aureus Qualified Code(s) : A41.02 - Sepsis due to Methicillin resistant Staphylococcus aureus - Plan KEKE with history of renal insufficiency. Creatinine increased at 2.29 most likely prerenal azotemia, non oliguric. Hypernatremia with sodium level of 152 With worsening creatinine IVF have been ordered per CC, D5 W at 75 ml/hr Recommend to hold lasix for now with hypernatremia and worsening renal indices Continue to avoid nephrotoxins as possible. Will follow urinary output and BMP Dr. Triana to follow tomorrow. <Jeni Nickerson - Last Filed: 01/26/18 10:22> - Assessment (1) Acute renal failure Code(s): N17.9 - Acute kidney failure, unspecified Status: Acute (2) Atrial fibrillation Code(s): I48.91 - Unspecified atrial fibrillation Status: Acute Qualifiers: Atrial fibrillation type: unspecified Qualified Code(s): I48.91 - Unspecified atrial fibrillation (3) Sepsis Code(s): A41.9 - Sepsis, unspecified organism Status: Acute Qualifiers: Sepsis type: methicillin resistant Staphylococcus aureus Qualified Code(s) : A41.02 - Sepsis due to Methicillin resistant Staphylococcus aureus - Plan Patient seen and examined, agree with above. Increase creatinine and sodium, started on IVF with D5W. Follow the urine out put and BMP. <Stephany King - Last Filed: 01/27/18 21:42>
[2018-01-26] MEDS: Ceftaroline Inj 300 MG in Sodium Chlor 0.9% Inj 100 ML IV.SIG SCH (14:16)
[2018-01-26] MEDS: Morphine Sulfate Inj 2 MG/ML Vial IV.PUSH PRN ×2 (15:14→23:44)
[2018-01-26] MEDS ORDERED: RESP: Racemic Epinephrine 2.25% 0.5 ML Neb NEB PRN (16:35)
--- NOTE | 2018-01-26 20:15 | P.PNID ---
Subjective Remarks: doing well extubated, on ventimask no fever MRSA from both shoulders making urine Antibiotics: vanco teflaro rifampin Lines: Line sites with no e.o infection Past Medical History: reviewed Allergies/Adverse Reactions: Allergies amoxicillin Allergy (Severe, Verified 01/13/18 20:44) Hives Objective Vital Signs 01/25/18 21:00 01/25/18 21:19 01/25/18 22:00 Temperature Pulse Rate 104 H 93 H 114 H Respiratory Rate 12 Blood Pressure 112/74 100/68 Pulse Oximetry 95 96 01/25/18 23:00 01/25/18 23:28 01/25/18 23:58 Temperature Pulse Rate 106 H 106 H Respiratory Rate Blood Pressure 106/73 Pulse Oximetry 96 99 100 01/25/18 23:59 01/26/18 00:00 01/26/18 01:00 Temperature 98.5 F Pulse Rate 105 H 105 H 101 H Respiratory Rate Blood Pressure 105/72 120/75 Pulse Oximetry 100 100 100 01/26/18 02:00 01/26/18 03:00 01/26/18 03:10 Temperature Pulse Rate 96 H 103 H 102 H Respiratory Rate Blood Pressure 108/58 L 124/62 Pulse Oximetry 100 97 100 01/26/18 03:41 01/26/18 03:45 01/26/18 04:00 Temperature 99.1 F Pulse Rate 97 H 103 H Respiratory Rate 16 16 Blood Pressure 125/72 Pulse Oximetry 100 100 01/26/18 05:00 01/26/18 06:00 01/26/18 07:00 Temperature Pulse Rate 114 H 96 H 97 H Respiratory Rate 18 Blood Pressure 106/51 L 104/69 Pulse Oximetry 100 100 100 01/26/18 07:15 01/26/18 07:50 01/26/18 08:00 Temperature 98.5 F Pulse Rate 99 H 100 H 88 Respiratory Rate 17 11 L 13 Blood Pressure 113/63 111/66 Pulse Oximetry 100 100 100 01/26/18 09:00 01/26/18 10:00 01/26/18 11:00 Temperature Pulse Rate 95 H 99 H 84 Respiratory Rate 11 L 12 28 H Blood Pressure 111/59 L 116/58 L 106/66 Pulse Oximetry 100 100 100 01/26/18 11:18 01/26/18 12:00 01/26/18 13:00 Temperature Pulse Rate 85 100 H Respiratory Rate 17 29 H 27 H Blood Pressure 113/66 114/64 Pulse Oximetry 100 99 99 01/26/18 13:16 01/26/18 13:17 01/26/18 14:00 Temperature Pulse Rate 108 H 98 H Respiratory Rate 16 24 Blood Pressure 98/55 L Pulse Oximetry 98 99 01/26/18 15:00 01/26/18 15:42 01/26/18 16:00 Temperature Pulse Rate 102 H 105 H 104 H Respiratory Rate 28 H 16 28 H Blood Pressure 118/61 128/72 Pulse Oximetry 96 99 01/26/18 17:00 01/26/18 17:56 01/26/18 18:00 Temperature 98.8 F Pulse Rate 105 H 108 H Respiratory Rate 30 H 24 Blood Pressure 131/74 124/72 Pulse Oximetry 100 94 L 96 01/26/18 19:00 01/26/18 19:51 Temperature Pulse Rate 104 H 90 Respiratory Rate 28 H 26 H Blood Pressure 127/65 Pulse Oximetry 100 100 Intake & Output 01/26/18 01/26/18 01/27/18 06:59 18:59 06:59 Intake Total 562 / 562 710 / 710 Output Total 460 / 460 850 / 850 Balance 102 / 102 -140 / -140 Weight 67.9 kg Intake: IV 400 / 400 530 / 530 Flexbumin 25% Inj 100 ML @ 60 100 / 100 mls/hr IV.SIG DAILY [facility] Rx#: [id number] Azactam Inj 2 GM In NS Inj 100 200 / 200 200 / 200 ML @ 200 mls/hr IV.SIG Q6H [facility] Rx#:[id number] Teflaro Inj 300 MG In NS Inj 100 / 100 100 ML @ 100 mls/hr IV.SIG Q12H [facility] Rx#:[id number] Teflaro Inj 300 MG In NS Inj 100 / 100 100 ML @ 100 mls/hr IV.SIG Q12H [facility] Rx#:[id number] fentaNYL 10 mcg/mL Premix Drip 30 / 30 2,500 mcg In 250 ml @ 50 MCG/HR 5 mls/hr IV.SIG TITRATE PRN Rx #:[id number] RIFADIN Inj 300 MG In NS Inj 100 / 100 100 / 100 100 ML @ 100 mls/hr IV.SIG Q12H [facility] Rx#:[id number] Tube Feeding 162 / 162 180 / 180 Output: Urine Amount (Catheter) 400 / 400 850 / 850 Indwelling Urethral Catheter 400 / 400 850 / 850 Wound Drainage 60 / 60 # 2 Left Shoulder 35 / 35 Left Shoulder 0 / 0 Right Shoulder Other: Date of Last Bowel Movement 01/26/18 01/26/18 # Bowel Movements 3 1 01/25/18 10:40 Blood - Peripheral Aerobic Blood Culture - Preliminary No growth in 1 day 01/25/18 10:40 Blood - Peripheral Anaerobic Blood Culture - Preliminary No growth in 1 day 01/25/18 10:52 Blood - Peripheral Aerobic Blood Culture - Preliminary No growth in 1 day 01/25/18 10:52 Blood - Peripheral Anaerobic Blood Culture - Preliminary No growth in 1 day 01/24/18 16:30 Fluid - Other Gram Stain - Final 01/24/18 16:30 Fluid - Other Body Fluid Culture - Preliminary Staphylococcus species 01/23/18 14:42 Fluid - Other Gram Stain - Final 01/23/18 14:42 Fluid - Other Body Fluid Culture - Preliminary Staphylococcus species 01/20/18 17:14 Blood - Peripheral Aerobic Blood Culture - Final No growth in 5 days 01/20/18 17:14 Blood - Peripheral Anaerobic Blood Culture - Final No growth in 5 days 01/20/18 17:19 Blood - Peripheral Aerobic Blood Culture - Final No growth in 5 days 01/20/18 17:19 Blood - Peripheral Anaerobic Blood Culture - Final S. aureus MRSA 01/17/18 18:56 Fluid - Other Acid Fast Bacilli Smear - Final No acid fast bacilli seen 01/17/18 18:56 Fluid - Other Mycobacterial Culture - Preliminary No growth in 1 week 01/22/18 17:00 Bronchial - Right Gram Stain - Final 01/22/18 17:00 Bronchial - Right Bronchial Culture - Final S. aureus MRSA 01/22/18 12:25 Sputum - Endotracheal Gram Stain - Final 01/22/18 12:25 Sputum - Endotracheal Sputum Culture - Final S. aureus MRSA Lab - Chemistry Results 01/25/18 01/26/18 06:00 06:35 Sodium 152 H Potassium 4.5 Chloride 118 H Carbon Dioxide 26.3 Anion Gap 8 BUN 83 H Creatinine 1.90 H 2.29 H Estimated GFR 34 L 28 L Random Glucose 137 H Calcium 8.2 L Imaging: ITS Impressions Abdomen/Pelvis CT 01/13/18 20:43 CONCLUSION: 1. Marked prostate enlargement. 2. Air-filled distention of sigmoid colon. 3. Cardiomegaly. Small bilateral pleural effusions. 4. Diffuse atherosclerotic disease and arterial calcification. 5. Old insufficiency type fractures of the left side of the sacrum and left- sided pubic rami. Cervical Spine MRI 01/14/18 00:00 CONCLUSION: 1. Examination is degraded by motion artifact. 2. Partial visualization of a mass involving the left supraclavicular region measuring 5.[address] scan of the soft tissues of the neck with IV contrast to further assess if the patient can't hold still for that exam. 3. Diffuse degenerative changes as detailed at each level in the above discussion. Head MRI 01/14/18 00:00 CONCLUSION: 1. No acute intracranial abnormality. 2. Encephalomalacia involving the left frontal lobe. Thoracic Spine MRI 01/14/18 00:00 CONCLUSION: 1. See the MRI of the cervical spine reported separately. 2. Orthopedic hardware at the thoracolumbar junction. 3. Patent central canal throughout. Head CT 01/14/18 00:31 CONCLUSION: 1. No acute intracranial findings. 2. 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 . Venous Doppler Study 01/14/18 09:20 CONCLUSION: 1. The study is negative for lower extremity deep venous thrombosis. Soft Tissue Neck CT 01/16/18 00:00 CONCLUSION: 1. Partially visualized fluid and gas collection deep to the left trapezius muscle in the posterior lower neck extending into the posterior thorax. Chest CT with contrast could be performed to image the remainder of the abnormality. Differential diagnosis includes abscess and hematoma. 2. Degenerative findings of the cervical spine. Chest CT 01/16/18 11:15 CONCLUSION: 1. Lobulated mass in the left supraclavicular region. It is most suggestive of a multi lobulated loculated abscess given the air within several of the masses. 2. Bibasilar areas of consolidation or atelectasis. There are mild bilateral pleural effusion. 3. There is a drain over the right shoulder region. 4. Postsurgical change at the thoracolumbar region as described above. Abscess Drainage CT 01/17/18 00:00 CONCLUSION: 1. Uncomplicated CT guided drainage, as above. WBC Scan Nuclear Medicine 01/18/18 00:00 CONCLUSION: 1. Multiple areas of abnormal uptake including at the upper lumbar spine around the upper left surgical hardware and at the L1-2 disc level. 2. Abnormal activity around the clip joints bilaterally being more prominent on the right. 3. Abnormal activity in the right C2-3 facet and the left C7-T1 facet. 4. Small area of signal abnormality in the posterior right sacroiliac joint region separate from surgical hardware. 5. All these areas are concerning for active infection. Shoulder X-Ray 01/21/18 00:00 CONCLUSION: Unusual positioning of the shoulder but I do not see any obvious displaced fracture of the shoulder. There is a healing third rib fracture and healing seventh rib fracture. Upper Extremity Ultrasound 01/22/18 00:00 CONCLUSION: 1. Lateral right shoulder subcutaneous complex fluid collection concerning for abscess. This is amenable to percutaneous drainage. Abscess Drainage Ultrasound 01/23/18 00:00 CONCLUSION: 1. Uncomplicated ultrasound-guided drainage catheter placement in complex inferolateral right shoulder fluid collection. Lumbar Spine MRI 01/23/18 00:00 CONCLUSION: Little or no change from previous exam. Nothing to suggest abscess Pelvis MRI 01/23/18 00:00 CONCLUSION: 1. Diffuse skin thickening and subcutaneous edema suggestive of cellulitis involving the left buttock without underlying abscess formation. 2. Rectosigmoid colon is distended with fecal debris suggestive of fecal impaction. Clinical correlation is recommended. 3. Markedly enlarged prostate. 4. Degenerative changes and scoliosis of the visualized lower lumbar spine are noted. 5. Bony changes involving the left sacrum likely representing old healed insufficiency fractures. Shoulder MRI 01/23/18 00:00 CONCLUSION: 1. Chronic complete rotator cuff tear. 2. Moderate joint fluid Chest X-Ray 01/26/18 06:00 CONCLUSION: Improved aeration at the lung bases bilaterally. There is only mild residual opacity at the right base. Physical Exam: GENERAL: on venti mask awake SKIN: Warm and dry. No rash HEAD: Atraumatic. Normocephalic. EYES: Pupils equal and round. No scleral icterus. No injection or drainage. ENT: No nasal bleeding or discharge. Mucous membranes pink and moist. NECK: Trachea midline. No JVD. No palpable masses, but diffuse pain CARDIOVASCULAR: Regular rate and rhythm. nO murmurs RESPIRATORY: No accessory muscle use. decrease BS on R anteriorly to auscultation. + rhonchi b/l GASTROINTESTINAL: Abdomen soft, non-tender, mildly distended. Hepatic and splenic margins not palpable. MUSCULOSKELETAL: Extremities without clubbing, cyanosis, no edema. No obvious deformities. + R shoulder drain in place, cloudy serosang fluid + new fluctuance . Left shoulder drains x2 with serosang fluid NEUROLOGICAL: awake, follows PSYCHIATRIC: appears calm Assessment and Plan - Plan High grade staph bacteremia. MRSA 2 D echo neg R shoulder effusion , cw R shoulder septic arhtritis (MRSA)-post I&D. . UTI, recurrent recent ly used Bactrim - clx negative probably 2/2 prior abx use Chronic osteo , diskitis, aw hardware h/o L spine fusion and infection 2 yrs ago Encephalopathy - likely 2/2 sepsis (pt has 2 concomitant infections: UTI and septic R shoulder arthritis - improved with treatment L supraclavicular mass turned out to be abscess on CT his CT showed abscess extending to posterior thorax. Status post drainage. MR L spine with ? diskitis CT chest with contrast was rec'd, but since he got contrast this am, will do w/ o contrast NM WBC * scan dw Dr Henry Sherman: - L spine abnormal enchanceemnt cw diskitis, chronic osteo no fluid collections resp failure, on NIVM PNA, RLL - new , cannot exclude aspiration High grade PNC allergy, but tolerated meropenem OK Pt is now critical and unstable fro resp standpoint looks likel reaccumulated R shoulder effusion sp b/l shoulder drainage Some clinical improvement noted Recs: continue vancomycin dc azactam cont teflaro cont Rifampin fu clx JUSTIN when feasible MR both shoulders Mon or Tue poonam family @ b/s poonam RN
[2018-01-26] MEDS: Melatonin 5 MG Tablet PO SCH (20:37)
[2018-01-27] MEDS: Oral Hygiene Kit OROPHARYNG SCH ×4 (00:14→16:43)
[2018-01-27] MEDS: SODIUM CHLOR 0.9% IV.SIG SCH ×2 (03:15→14:04)
[2018-01-27] MEDS: RIFAMPIN IV.SIG SCH ×2 (03:15→14:04)
[2018-01-27] MEDS: Ceftaroline Inj 300 MG in Sodium Chlor 0.9% Inj 100 ML IV.SIG SCH ×2 (03:49→14:04)
[2018-01-27] MEDS: Morphine Sulfate Inj 2 MG/ML Vial IV.PUSH PRN (03:49)
[2018-01-27 06:00] LABS: ABG Base Excess 0.2 mmol/L (-2-2); ABG PCO2 48 mmHg (38-42); ABG PO2 179 mmHg (61-120)
[2018-01-27] MEDS: Levothyroxine 100 MCG Tablet PO SCH (06:12)
[2018-01-27 06:15] LABS: Baso % (Auto) 0.5 % (0.0-2.0); Eos # (Auto) 0.1 th/mm3 (0.0-0.4); Eos % (Auto) 1.2 % (0.0-4.0); Hematocrit 23.2 % (39.0-51.0); Hemoglobin 7.3 gm/dL (13.0-17.0); Lymph # (Auto) 0.5 th/mm3 (1.0-4.8); Lymph % (Auto) 7.2 % (9.0-44.0); Mean Corpuscular HGB Conc 31.5 % (32.0-36.0); Mean Corpuscular Volume 85.6 fL (80.0-100.0); Mean Platelet Volume 8.5 fL (7.0-11.0); Mono # (Auto) 0.2 th/mm3 (0.0-0.9); Mono % (Auto) 2.8 % (0.0-8.0); Neut # (Auto) 6.6 th/mm3 (1.8-7.7); Neut % (Auto) 88.3 % (16.0-70.0); Platelet Count 129 th/mm3 (150-450); Red Blood Count 2.71 mil/mm3 (4.50-5.90); Red Cell Distribution Width 20.1 % (11.6-17.2); White Blood Count 7.5 th/mm3 (4.0-11.0)
[2018-01-27 06:36] LABS: Calcium 7.9 mg/dL (8.5-10.1); Carbon Dioxide 27.7 meq/L (21.0-32.0); Potassium 4.4 meq/L (3.5-5.1)
[2018-01-27 06:38] LABS: Vancomycin,Random 15.1 Comment
[2018-01-27] MEDS: Aztreonam Inj 2 GM in Sodium Chloride 0.9% Inj 100 ML IV.SIG SCH (07:30)
[2018-01-27 07:48] LABS: Ovalocytes 1+
[2018-01-27 07:49] LABS: Platelet Morphology Normal (Normal)
[2018-01-27] MEDS: Metoprolol Tartrate 25 MG Tablet PO SCH ×2 (08:48→21:26)
[2018-01-27] MEDS: Albumin Human 25% Inj 100 ML IV.SIG SCH (08:48)
[2018-01-27] MEDS: Citalopram 20 MG Tablet PO SCH (08:49)
[2018-01-27] MEDS: Senna/Docusate Sodium 8.6/50 MG Tablet PO SCH ×2 (08:49→21:26)
[2018-01-27] MEDS: Pantoprazole Sodium 20 MG DR Tablet PO SCH (08:49)
[2018-01-27] MEDS: Chlorhexidine 0.12% Oral Kit 15 ML UDC OROPHARYNG SCH ×2 (08:50→21:27)
[2018-01-27] MEDS: amLODIPine 5 MG Tablet PO SCH (09:15)
--- NOTE | 2018-01-27 09:48 | P.PNCC ---
Subjective Subjective Remarks/Hospital Course: This 82-year-old gentleman was transferred emergently from the floor to the surgical intensive care unit because of rapid onset combined hypoxemic and hypercapnic respiratory failure. On arrival he has diffuse crackles throughout both lung santizo and his neck veins are distended. On admission several days ago he was dehydrated and had an element of acute kidney injury. His weight is up about 5 kg since admission though his renal function has improved. On arrival he is breathing 40 times a minute on a nonrebreathing mask with pH of 7.18 and P CO2 of 74. His acidosis is purely respiratory and associated with bronchospasm from fluid overload. B natruretic peptide is elevated to greater than 2000. Other pertinent major problems include septic joint drainage and treatment. 01/22: Critical care reconsulted for worsening resp status. On BIPAP with fulkl face mask. CXR with bilat infiltrates/ pulm edema. Reaccumulated rt shoulder collection. After d/w family proceeded with intubation and placed patient on [facility] ventilation. Placed central line. D/W Dr. Mani Sherman who is arranging US guided drainage/ drain placement for shoulder collection. 01/23: Remains sedated, orally intubated on mechanical ventilation. Significant diuresis with 11 L negative over the last 3 days. Awaiting left shoulder percutaneous drainage of collection by interventional radiology today. 1 unit PRBCs ordered as patient has borderline blood pressures with hemoglobin less than 8. 01/24: Sedated, arousable, orally intubated on mechanical ventilation. Tolerating tube feeds. s/p [id number] drain placement in rt shoulder fluid collection on 01/23. 01/25: He had a good trial on spontaneous breathing yesterday. Mechanical ventilation overnight. Started on spontaneous breathing trial this morning at 12/5 and volumes were small. Increased to 15/8 and volumes looked better with each breath. Still producing lots of thick secretions, dark yellow. Unable to extubate due to general weakness and inability to cough numerous secretions. FiO2 reduced to 40% and gas exchange good. Clearly improved respiratory function from yesterday. Tolerating tube feeds well, gastric residuals minimal , remains constipated and will start on milk of magnesia and. 01/26: Right lower lobe nicely reexpanded after 24 hours on APRV. FI02 reduced to 30%. More alert today, will attempt to extubate. Worsening azotemia appears to be prerenal. We will need to give some volume back. General strength and alertness has improved. 01/27: On BiPAP since last evening. Appears comfortable with 100% O2 sat. Awake and alert. On tube feeds via NG tube Objective Vital Signs / I&O: Vital Signs 01/26/18 10:00 01/26/18 11:00 01/26/18 11:18 Temperature Pulse Rate 99 H 84 Respiratory Rate 12 28 H 17 Blood Pressure 116/58 L 106/66 Pulse Oximetry 100 100 100 01/26/18 12:00 01/26/18 13:00 01/26/18 13:16 Temperature Pulse Rate 85 100 H 108 H Respiratory Rate 29 H 27 H 16 Blood Pressure 113/66 114/64 Pulse Oximetry 99 99 01/26/18 13:17 01/26/18 14:00 01/26/18 15:00 Temperature Pulse Rate 98 H 102 H Respiratory Rate 24 28 H Blood Pressure 98/55 L 118/61 Pulse Oximetry 98 99 96 01/26/18 15:42 01/26/18 16:00 01/26/18 17:00 Temperature 98.8 F Pulse Rate 105 H 104 H 105 H Respiratory Rate 16 28 H 30 H Blood Pressure 128/72 131/74 Pulse Oximetry 99 100 01/26/18 17:56 01/26/18 18:00 01/26/18 19:00 Temperature Pulse Rate 108 H 104 H Respiratory Rate 24 28 H Blood Pressure 124/72 127/65 Pulse Oximetry 94 L 96 100 01/26/18 19:51 01/26/18 20:00 01/26/18 21:00 Temperature 98 F Pulse Rate 90 93 H 91 H Respiratory Rate 26 H Blood Pressure 122/62 102/52 L Pulse Oximetry 100 100 100 01/26/18 22:00 01/26/18 23:00 01/26/18 23:47 Temperature Pulse Rate 81 73 Respiratory Rate Blood Pressure 115/61 130/62 Pulse Oximetry 100 100 100 01/27/18 00:00 01/27/18 01:00 01/27/18 02:00 Temperature 97.6 F Pulse Rate 76 74 77 Respiratory Rate 26 H Blood Pressure 106/62 115/64 118/69 Pulse Oximetry 100 100 100 01/27/18 03:00 01/27/18 03:35 01/27/18 04:00 Temperature 97.9 F Pulse Rate 74 90 100 H Respiratory Rate 24 Blood Pressure 129/66 124/67 Pulse Oximetry 100 100 100 01/27/18 05:00 01/27/18 06:00 Temperature Pulse Rate 90 91 H Respiratory Rate Blood Pressure 120/65 138/73 Pulse Oximetry 100 100 Intake & Output 01/26/18 01/27/18 01/27/18 18:59 06:59 18:59 Intake Total 710 / 710 529 / 529 Output Total 850 / 850 450 / 450 Balance -140 / -140 79 / 79 Weight 73 kg Intake: IV 530 / 530 300 / 300 D5W Inj 1,000 ML @ 75 mls/hr IV 100 / 100 .CONT .[id number] [facility] Rx#:[id number] Flexbumin 25% Inj 100 ML @ 60 100 / 100 mls/hr IV.SIG DAILY [facility] Rx#: [id number] Azactam Inj 2 GM In NS Inj 100 200 / 200 ML @ 200 mls/hr IV.SIG Q6H [facility] Rx#:[id number] Teflaro Inj 300 MG In NS Inj 100 / 100 100 / 100 100 ML @ 100 mls/hr IV.SIG Q12H [facility] Rx#:[id number] fentaNYL 10 mcg/mL Premix Drip 30 / 30 2,500 mcg In 250 ml @ 50 MCG/HR 5 mls/hr IV.SIG TITRATE PRN Rx #:[id number] RIFADIN Inj 300 MG In NS Inj 100 / 100 100 / 100 100 ML @ 100 mls/hr IV.SIG Q12H [facility] Rx#:[id number] Tube Feeding 180 / 180 109 / 109 Tube Irrigant 120 / 120 Output: Urine Amount (Catheter) 850 / 850 450 / 450 Indwelling Urethral Catheter 850 / 850 450 / 450 Other: Date of Last Bowel Movement 01/26/18 01/27/18 # Bowel Movements 1 1 # Incontinent Bowel Movements 1 Result Diagrams: 01/27/18 05:50 01/27/18 05:50 Objective Remarks: General: Awake, alert, following commands. On BiPAP with full facemask HEENT: Neck chronically stiff consistent with age. Chest/pulm: air entry improved at right base, lung santizo uniformly clear, no wheezes or crackles. CVS: S1S2, irregular rhythm, no JVD. Improved rate control this morning. Abd: Soft, nontender, bowel sounds present. No guarding. No distention. Ext: Warm bilaterally. Bilateral drains in shoulder collections. Limbs are warm and well perfused. Drains bilaterally and shoulders Neuro: On BiPAP with full facemask. Opens eyes to soft voice and tracks with eyes. Nods head to questions. Moves arms and legs weakly. Recognizes family Assessment and Plan - Assessment and Plan Plan: Assessment and Plan: Acute combined hypercapnic and hypoxemic respiratory failure Fluid overload/noncardiogenic Pulmonary edema secondary to sepsis Possible pneumonia Mucus plugging -BNP greater than 2000, improving -Bronchodilators -diuresed to mobilize fluid -Scott required for BPH as well as diuresis -[facility]. -Status post bronchoscopy with BAL on 01/22 with significant mucus plugging noted in the right-sided airways including right mainstem bronchus for which BAL was performed with significant clearing of airway. Bronchial washing sent for Gram stain and cultures. Follow-up chest x-ray post bronchoscopy showed significant improvement in aeration of right lung. -Continue mechanical ventilation, vent bundle. Added Mucomyst to mobilize secretions. -Frequent suctioning required -Overnight on APRV. Lung santizo clear, chest x-ray much improved, attempt extubation today 01/25. MRSA septicemia, septic right shoulder, L spine diskitis, left supraclavicular abscess sepsis Right shoulder effusion. septic right shoulder, s/p I&D Urinary tract infection. 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 Taper steroid Blood cultures positive for MRSA. 2D echocardiogram did not show any findings consistent with vegetations. Continue vancomycin, Levaquin, meropenem per ID. Patient also had a right shoulder effusion, orthopedics aspirated the shoulder - approximately 30 cc of purulent fluid. had follow-up with orthopedics for their recommendations drainage of that right shoulder. Continue IV antibiotics per infectious disease recommendations. Infectious disease following repeat blood cultures ntd Cardiothoracic surgeon was consulted for evaluation of supraclavicular mass/ poss abscess NM WBC scan 01/18/18 and 01/19/18. Patient received ativan as not able to tolerate CT imaging he was noted agitated in CT and imaging needed to be repeat. Imaging discussed with radiology Dr and it seems patient with multiple focal infections bilateral shoulders, also back at the hardware with diskitis/ osteomyelitis. Neurology, ID, hem onc ff. CTS consulted no surgical intervention required at this time. IR consulted s/p CT-guided drainage of left posterior supraclavicular/posterior chest wall abscess on 01/17/18. s/p US guided drainage of shoulder collection by IR done on 01/23 KEKE on CKD. Being diuresed, Strict I/O, monitor/ replete electrolytes, follow BUN/ Cr Nephrology following, appreciate recs. Significant fluid removal with diuresis but creatinine increased. Fluid balance appears about the right today 01/25, but mild prerenal azotemia noted Worsening prerenal azotemia, we are forced to initiate moderate hydration. We will follow BNP. CVS Atrial Fibrillation, permanent Noncardiogenic pulmonary edema Hypotension (resolved) Rate well controlled. Recent ECHO EF 65% Dr. Garner following-discussed with Dr. Garner on 01/22. We agreed with diuresing patient for noncardiogenic pulmonary edema while watching renal function/ BP. Hold antihypertensives. On 01/23 ordered Levophed for pressor support to keep MAP greater than 65mm Hg however has not required pressors. Hold off on further diuresis due to rising creatinine. Start Lopressor 12 and half milligrams twice daily Anemia 1 unit PRBCs ordered to be transfused on 01/23 to keep hemoglobin above 8 g%. No overt evidence of blood loss. Follow CBC. Protein calorie malnutrition -Inserted NGT 01/22 following intubation, Continue tube feeds and advance to goal as well tolerated. BPH - Continue Flomax. DVT prophylaxis per surgeon Access: RIJ central line placed 01/22 01/22: D/w Dr. Mani Sherman, D/W WASTE REDUCTION COORDINATOR, D/W patient's family at bedside. 01/23 D/W patient's daughter at bedside regarding current clinical status and plan of care and they voiced understanding and were agreeable with plan of care. D/W ID-Dr Tom on 01/23 01/24: Discussed with patient's family at bedside regarding current clinical status and plan of care and they voiced understanding. Discussed with ID Dr. Tom, discussed with Dr. Piña. Discussed with WASTE REDUCTION COORDINATOR. 01/25: I spoke with patient's daughter at the bedside this morning. We discussed goals for ventilator weaning and nutrition. I spoke with extensive family members later in the day. 01/26: I spoke at length with the patient's daughter this morning and will speak extensively with other family members later today. 01/27: I spoke with patient's family member at bedside regarding his respiratory status and plan of care and he voiced understanding. Will come back and update other family members later.
[2018-01-27] MEDS ORDERED: Vancomycin Inj 1,250 MG in Sodium Chlor 0.9% Inj 250 ML IV.SIG ONE (10:00)
[2018-01-27] MEDS: Dextrose 5% in Water Inj 1,000 ML IV.CONT SCH (11:21)
--- NOTE | 2018-01-27 11:42 | IR ---
EXAM DATE: 01/24/2018 4:54 PM EST AGE/SEX: 82 years / Male INDICATIONS: Patient presents with infection and fluid in left shoulder, here for drain placement. CLINICAL DATA: This is the patient's initial encounter. Patient reports that signs and symptoms have been present for 1 week and indicates a pain score of Nonresponsive. MEDICAL/SURGICAL HISTORY: . Medical History (Last Reviewed 01/14/18 @ 01:36 by Lianet Villegas MD)Atrial fibrillation, BPH, DepressionHT),Hypothyroid, PUD . Neck Surgery COMPARISON: No prior exams available for comparison. IMAGE SERIES: 2 SITE: Left shoulder FLUID: Total volume of 20 cc of cloudy, red fluid was removed. Fluid was sent to lab for ordered stud ies. DEVICE(S): 6 Albanian locking catheter Navare . . PROCEDURE : 1. Ultrasound guidance for abscess drainage. 2. Abscess drainage. The risks, benefits and alternatives to the procedure were explained and verbal and written consent w as obtained. The site was prepped in sterile fashion. Full sterile technique was used, including ca p, mask, sterile gloves and gown and a large sterile sheet. Hand hygiene and 2% chlorhexidine and/or betadine/alcohol prep was utilized per protocol for cutaneous antisepsis. The skin and subcutaneous tissues were infiltrated with local anesthetic solution. Sterile gel and sterile probe cover were u tilized for ultrasound guidance. Ultrasound examination was performed confirming the left shoulder fluid collection. The skin overlyin g the region was prepped and draped in usual sterile fashion. 18-gauge needle was advanced into the c ollection with aspiration of cloudy serosanguineous fluid. Guidewire was then advanced into the colle ction and subsequently a 6 Albanian catheter was placed. In total, approximately 20 cc of fluid was rem donnie. Catheter was connected to suction bag. CONCLUSION: 1. Uncomplicated percutaneous placement of drainage catheter in left shoulder. Electronically signed by: Rebel Patterson MD 01/27/2018 11:40 AM EST
--- NOTE | 2018-01-27 12:13 | P.PNOP ---
Subjective Interval history: The patient is extubated and currently on a nonrebreather. The patient is more alert. The patient still reports having some pain to his bilateral shoulders when questioned. The patient's family is at bedside. I took time today to discuss the results most recent cultures of the bilateral shoulder which does show positive for MRSA. I discussed concerns today regarding this infection and how this may affect the patient long-term if the left unmanaged surgically. 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 It has been expressed their wishes to have the patient placed on long-term antibiotics with conservative management of the spine. The family is not interested in removal of hardware from the lumbar spine at this time. There are concerns for the patient's overall strength and his ability to undergo a another surgery. Although the patient is improving some clinically the patient would still need to be cleared medically. The patient's family wants to discuss this with the patient's other specialist prior to making any decisions regarding surgery for the bilateral shoulders. Physical Exam Vital signs: Vital Signs 01/26/18 12:00 01/26/18 13:00 01/26/18 13:16 Temperature Pulse Rate 85 100 H 108 H Respiratory Rate 29 H 27 H 16 Blood Pressure 113/66 114/64 Pulse Oximetry 99 99 01/26/18 13:17 01/26/18 14:00 01/26/18 15:00 Temperature Pulse Rate 98 H 102 H Respiratory Rate 24 28 H Blood Pressure 98/55 L 118/61 Pulse Oximetry 98 99 96 01/26/18 15:42 01/26/18 16:00 01/26/18 17:00 Temperature 98.8 F Pulse Rate 105 H 104 H 105 H Respiratory Rate 16 28 H 30 H Blood Pressure 128/72 131/74 Pulse Oximetry 99 100 01/26/18 17:56 01/26/18 18:00 01/26/18 19:00 Temperature Pulse Rate 108 H 104 H Respiratory Rate 24 28 H Blood Pressure 124/72 127/65 Pulse Oximetry 94 L 96 100 01/26/18 19:51 01/26/18 20:00 01/26/18 21:00 Temperature 98 F Pulse Rate 90 93 H 91 H Respiratory Rate 26 H Blood Pressure 122/62 102/52 L Pulse Oximetry 100 100 100 01/26/18 22:00 01/26/18 23:00 01/26/18 23:47 Temperature Pulse Rate 81 73 Respiratory Rate Blood Pressure 115/61 130/62 Pulse Oximetry 100 100 100 01/27/18 00:00 01/27/18 01:00 01/27/18 02:00 Temperature 97.6 F Pulse Rate 76 74 77 Respiratory Rate 26 H Blood Pressure 106/62 115/64 118/69 Pulse Oximetry 100 100 100 01/27/18 03:00 01/27/18 03:35 01/27/18 04:00 Temperature 97.9 F Pulse Rate 74 90 100 H Respiratory Rate 24 Blood Pressure 129/66 124/67 Pulse Oximetry 100 100 100 01/27/18 05:00 01/27/18 06:00 01/27/18 10:13 Temperature Pulse Rate 90 91 H 88 Respiratory Rate 18 Blood Pressure 120/65 138/73 Pulse Oximetry 100 100 Intake & Output 01/26/18 01/27/18 01/27/18 18:59 06:59 18:59 Intake Total 710 / 710 529 / 529 1000 / 1000 Output Total 850 / 850 450 / 450 Balance -140 / -140 79 / 79 1000 / 1000 Weight 73 kg Intake: IV 530 / 530 300 / 300 1000 / 1000 D5W Inj 1,000 ML @ 75 mls/hr IV 100 / 100 1000 / 1000 .CONT .[id number] [facility] Rx#:[id number] Flexbumin 25% Inj 100 ML @ 60 100 / 100 mls/hr IV.SIG DAILY [facility] Rx#: [id number] Azactam Inj 2 GM In NS Inj 100 200 / 200 ML @ 200 mls/hr IV.SIG Q6H [facility] Rx#:[id number] Teflaro Inj 300 MG In NS Inj 100 / 100 100 / 100 100 ML @ 100 mls/hr IV.SIG Q12H [facility] Rx#:[id number] fentaNYL 10 mcg/mL Premix Drip 30 / 30 2,500 mcg In 250 ml @ 50 MCG/HR 5 mls/hr IV.SIG TITRATE PRN Rx #:[id number] RIFADIN Inj 300 MG In NS Inj 100 / 100 100 / 100 100 ML @ 100 mls/hr IV.SIG Q12H [facility] Rx#:[id number] Tube Feeding 180 / 180 109 / 109 Tube Irrigant 120 / 120 Output: Urine Amount (Catheter) 850 / 850 450 / 450 Indwelling Urethral Catheter 850 / 850 450 / 450 Other: Date of Last Bowel Movement 01/26/18 01/27/18 # Bowel Movements 1 1 # Incontinent Bowel Movements 1 Narrative: Patient extubated and alert. Patient on a nonrebreather. Right shoulder dressing is intact. Incision is well approximated with sutures intact. There is no erythema to the right shoulder. The patient does have a drain that is draining a moderate amount of serosanguineous type drainage. 30 cc every 6- hour period. Previous effusion has improved with drain. Patient has 2+ radial and pedal pulses. Mild swelling to the the left shoulder. Drain in place with 20 cc of serosanguineous drainage and a 6-hour period of time. Extremities and skin are warm and dry. - Urinary Catheter Management Condom Cath placed during this visit: no Indwelling Urethral Catheter Cath placed during this visit: yes Reason for continuing: Hourly intake/output Insertion date: 01/20/18 Insertion time: 11:30 Results - Labs CBC & Chem 7: 01/27/18 05:50 01/27/18 05:50 Laboratory Results - last 24 hr 01/25/18 01/27/18 01/27/18 15:45 05:50 05:50 WBC 7.5 RBC 2.71 L Hgb 7.3 L Hct 23.2 L MCV 85.6 MCH 27.0 MCHC 31.5 L RDW 20.1 H Plt Count 129 L MPV 8.5 Prelim Diff (Auto) Slide review pending Neut % (Auto) 88.3 H Lymph % (Auto) 7.2 L [place] % (Auto) 2.8 Eos % (Auto) 1.2 Baso % (Auto) 0.5 Neut # (Auto) 6.6 Lymph # (Auto) 0.5 L [place] # (Auto) 0.2 Eos # (Auto) 0.1 Baso # (Auto) 0.0 WBC Differential . Diff Scan Auto diff confirmed Differential Comment . Platelet Estimate Low L Platelet Morphology Normal Ovalocytes 1+ H Keratocytes Occ H Puncture Site Right radial Patient Temperature 98.6 O2 Saturation 93 ABG pH 7.49 H ABG pCO2 36 L ABG pO2 67 ABG HCO3 28 H ABG O2 Content 9.2 L ABG Base Excess 4.2 H ABG Methemoglobin 1.5 Blane Test Y Hemoglobin 7.0 L* Carboxyhemoglobin 1.4 O2 Delivery Device Ventilator Vent Setting Aprv Inspired O2 40 Critical Value Yes Sodium 148 H Potassium 4.4 Chloride 114 H Carbon Dioxide 27.7 Anion Gap 6 BUN 75 H Creatinine 2.13 H Estimated GFR 30 L Random Glucose 135 H Calcium 7.9 L B-Natriuretic Peptide Random Vancomycin 15.1 01/27/18 01/27/18 05:50 05:50 WBC RBC Hgb Hct MCV MCH MCHC RDW Plt Count MPV Prelim Diff (Auto) Neut % (Auto) Lymph % (Auto) [place] % (Auto) Eos % (Auto) Baso % (Auto) Neut # (Auto) Lymph # (Auto) [place] # (Auto) Eos # (Auto) Baso # (Auto) WBC Differential Diff Scan Differential Comment Platelet Estimate Platelet Morphology Ovalocytes Keratocytes Puncture Site Right radial Patient Temperature 98.6 O2 Saturation 96 ABG pH 7.34 L ABG pCO2 48 H ABG pO2 179 H ABG HCO3 25 ABG O2 Content 10.4 L ABG Base Excess 0.2 ABG Methemoglobin 1.3 Blane Test Present Hemoglobin 7.4 L* Carboxyhemoglobin 0.2 O2 Delivery Device Bipap Vent Setting Ipap12/[id number] Inspired O2 65 Critical Value Yes Sodium Potassium Chloride Carbon Dioxide Anion Gap BUN Creatinine Estimated GFR Random Glucose Calcium B-Natriuretic Peptide 1119 H Random Vancomycin Microbiology 01/25/18 10:40 Blood - Peripheral Aerobic Blood Culture - Preliminary No growth in 2 days 01/25/18 10:40 Blood - Peripheral Anaerobic Blood Culture - Preliminary No growth in 2 days 01/25/18 10:52 Blood - Peripheral Aerobic Blood Culture - Preliminary No growth in 2 days 01/25/18 10:52 Blood - Peripheral Anaerobic Blood Culture - Preliminary No growth in 2 days 01/23/18 14:42 Fluid - Other Gram Stain - Final 01/23/18 14:42 Fluid - Other Body Fluid Culture - Final S. aureus MRSA 01/24/18 16:30 Fluid - Other Gram Stain - Final 01/24/18 16:30 Fluid - Other Body Fluid Culture - Preliminary Staphylococcus species - Imaging Impressions Abscess Drainage 01/24/18 15:37 CONCLUSION: 1. Uncomplicated percutaneous placement of drainage catheter in left shoulder. - Procedures Right shoulder consent for aspiration obtained. Time out performed. Right shoulder prepped sterilely with alcohol and betadine. Sterile gloves doned. Right shoulder aspirated and sent for gram stain, culture, crystals, and cell count. 30 cc of purulent drainage aspirated and sent to lab. sterile dressing applied. Patient tolerated procedure well. Assessment and Plan - Assessment and Plan Abscess right shoulder. 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 Surgery: I&D right shoulder, POD #1 PLAN: 1. IV antibiotics per infectious disease. Intraoperative cultures taken of the right shoulder are positive for MRSA. Cultures taken of the left supraclavicular joint also are positive for MRSA. Drain placed in the bilateral shoulders by interventional radiology. Cultures taken on January 23 and January 24 of the bilateral shoulders are positive for MRSA. 2. Source of sepsis likely from a history of previous MRSA from lumbar spine. Possible indolent infection that has developed an abscess of the bilateral shoulders. We will defer to neurosurgery and other specialists for overall management. Neurosurgery consulted and will evaluate spine for infection. 3. Improving respiratory status. Patient now on ISC, extubated and alert. Bronchoscope recently performed showing mucous plugs. 4. Effusion improving with drain to right shoulder. 5. Continue drainage of left and right shoulders. Currently maintained drains due to present output. 6. The patient is tentatively placed on the orthopedic surgery scheduled for Saturday of this week to address infection in both shoulders. I did discuss this with the family today. At this time it is unclear whether we will be able to proceed with surgery based on the patient's overall strength and whether he is medically stable for surgery. The patient's family also wants to discuss this with other specialties and come to a decision amongst all family members regarding whether they want to proceed with surgery for the bilateral shoulders. Surgery would consist of incision and drainage of the bilateral shoulders. 7. Orthopedics will follow up with the patient and family tomorrow to determine a final decision regarding possible surgery on Saturday of this week.
--- NOTE | 2018-01-27 14:23 | P.PNNS ---
Subjective Interval history: This 82-year-old gentleman was transferred emergently from the floor to the surgical intensive care unit because of rapid onset combined hypoxemic and hypercapnic respiratory failure. On arrival he has diffuse crackles throughout both lung santizo and his neck veins are distended. On admission several days ago he was dehydrated and had an element of acute kidney injury. His weight is up about 5 kg since admission though his renal function has improved. On arrival he is breathing 40 times a minute on a nonrebreathing mask with pH of 7.18 and P CO2 of 74. His acidosis is purely respiratory and associated with bronchospasm from fluid overload. B natruretic peptide is elevated to greater than 2000. Other pertinent major problems include septic joint drainage and treatment. He has been extubated. He is on BiPAP mask since last evening. Appears comfortable with 100% O2 sat. Awake and alert. On tube feeds via NG tube . Physical Exam Vital signs: Vital Signs 01/26/18 15:00 01/26/18 15:42 01/26/18 16:00 Temperature Pulse Rate 102 H 105 H 104 H Respiratory Rate 28 H 16 28 H Blood Pressure 118/61 128/72 Pulse Oximetry 96 99 01/26/18 17:00 01/26/18 17:56 01/26/18 18:00 Temperature 98.8 F Pulse Rate 105 H 108 H Respiratory Rate 30 H 24 Blood Pressure 131/74 124/72 Pulse Oximetry 100 94 L 96 01/26/18 19:00 01/26/18 19:51 01/26/18 20:00 Temperature 98 F Pulse Rate 104 H 90 93 H Respiratory Rate 28 H 26 H Blood Pressure 127/65 122/62 Pulse Oximetry 100 100 100 01/26/18 21:00 01/26/18 22:00 01/26/18 23:00 Temperature Pulse Rate 91 H 81 73 Respiratory Rate Blood Pressure 102/52 L 115/61 130/62 Pulse Oximetry 100 100 100 01/26/18 23:47 01/27/18 00:00 01/27/18 01:00 Temperature 97.6 F Pulse Rate 76 74 Respiratory Rate 26 H Blood Pressure 106/62 115/64 Pulse Oximetry 100 100 100 01/27/18 02:00 01/27/18 03:00 01/27/18 03:35 Temperature Pulse Rate 77 74 90 Respiratory Rate 24 Blood Pressure 118/69 129/66 Pulse Oximetry 100 100 100 01/27/18 04:00 01/27/18 05:00 01/27/18 06:00 Temperature 97.9 F Pulse Rate 100 H 90 91 H Respiratory Rate Blood Pressure 124/67 120/65 138/73 Pulse Oximetry 100 100 100 01/27/18 10:13 Temperature Pulse Rate 88 Respiratory Rate 18 Blood Pressure Pulse Oximetry Intake & Output 01/26/18 01/27/18 01/27/18 18:59 06:59 18:59 Intake Total 710 / 710 529 / 529 1362.5 / 1362.5 Output Total 850 / 850 450 / 450 Balance -140 / -140 79 / 79 1362.5 / 1362.5 Weight 73 kg Intake: IV 530 / 530 300 / 300 1362.5 / 1362.5 D5W Inj 1,000 ML @ 75 mls/hr IV 100 / 100 1000 / 1000 .CONT .[id number] [facility] Rx#:[id number] Flexbumin 25% Inj 100 ML @ 60 100 / 100 100 / 100 mls/hr IV.SIG DAILY [facility] Rx#: [id number] Azactam Inj 2 GM In NS Inj 100 200 / 200 ML @ 200 mls/hr IV.SIG Q6H [facility] Rx#:[id number] Teflaro Inj 300 MG In NS Inj 100 / 100 100 / 100 100 ML @ 100 mls/hr IV.SIG Q12H [facility] Rx#:[id number] Vancomycin Inj 1,250 MG In NS 262.5 / 262.5 Inj 250 ML @ 250 mls/hr IV.SIG ONCE ONE Rx#:[id number] fentaNYL 10 mcg/mL Premix Drip 30 / 30 2,500 mcg In 250 ml @ 50 MCG/HR 5 mls/hr IV.SIG TITRATE PRN Rx #:[id number] RIFADIN Inj 300 MG In NS Inj 100 / 100 100 / 100 100 ML @ 100 mls/hr IV.SIG Q12H [facility] Rx#:[id number] Tube Feeding 180 / 180 109 / 109 Tube Irrigant 120 / 120 Output: Urine Amount (Catheter) 850 / 850 450 / 450 Indwelling Urethral Catheter 850 / 850 450 / 450 Other: Date of Last Bowel Movement 01/26/18 01/27/18 # Bowel Movements 1 1 # Incontinent Bowel Movements 1 Narrative: General: Awake, alert, following commands. On BiPAP with full facemask HEENT: Neck chronically stiff consistent with age. Chest/pulm: air entry improved at right base, lung santizo uniformly clear, no wheezes or crackles. CVS: S1S2, irregular rhythm, no JVD. Improved rate control this morning. Abd: Soft, nontender, bowel sounds present. No guarding. No distention. Ext: Warm bilaterally. Bilateral drains in shoulder collections. Limbs are warm and well perfused. Drains bilaterally and shoulders Neuro: On BiPAP with full facemask. Opens eyes to soft voice and tracks with eyes. Nods head to questions. Moves arms and legs weakly. Recognizes HIS family - Urinary Catheter Management Condom Cath placed during this visit: no Indwelling Urethral Catheter Cath placed during this visit: yes Reason for continuing: Hourly intake/output Insertion date: 01/20/18 Insertion time: 11:30 Assessment and Plan - Plan 82 year old male Sepsis left shoulder abscess s/p I&D left neck abscess s/p drainage remote history of lumbar fusion with suspected chronic osteomyelitis Neuro. Continue neuro checks. His nuclear medicine scan shows multiple areas of abnormal uptake including at the upper lumbar spine around the upper left surgical hardware and at the L1-2 disc level, abnormal activity in the right C2- 3 facet and the left C7-T1 facet, All these areas are concerning for active infection. Recommend MRI lumbar spine to rule out epidural abscess once that he is medically stable. he is not stable to undergo an MRI at this point Acute combined hypercapnic and hypoxemic respiratory failure CXR reviewed, ABG reviewed. 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 -Scott placed for accurate I&Os and BPH -Avoid steroids if possible as patient with acute infection see below - Continue BiPAP as omid, wean off as tolerated. - Consider pulmonary consult if need MRSA septicemia, septic right shoulder, L spine possible osteomyelitis, left supraclavicular abscess Right shoulder effusion. septic right shoulder, s/p I&D Urinary tract infection. 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 Steroid tapered and DCd He has been afebrile. Vital signs stable Blood cultures positive for MRSA. 2D echocardiogram did not show any findings consistent with vegetations. Patient may need JUSTIN. Continue vancomycin, Levaquin Patient also had a right shoulder effusion, orthopedics aspirated the shoulder which grew approximately 30 cc of purulent fluid. had follow-up with orthopedics for their recommendations drainage of that right shoulder. Continue IV antibiotics per infectious disease recommendations. Infectious disease following him repeat blood cultures Cardiothoracic surgeon was consulted for evaluation of supraclavicular mass/ poss abscess IR consulted s/p CT-guided drainage of left posterior supraclavicular/posterior chest wall abscess on 01/17/18. KEKE on CKD. Noted elevated serum creatinine of 1.64. Likely KEKE on CKD. Cont IV fluids, serum creatinine not trending down will consult nephrology Atrial Fibrillation, permanent Rate well controlled. Recent ECHO EF 65% Dr. Garner following. Insomnia: add small dose of temazepam , add melatonin Protein calorie malnutrition: very low albumin, will check prealbumin. Will add ensure with meals. Consult ingot header. BPH - Continue Flomax. Endocrine: Continue to Monitor serial Acu checks and SSI as needed in detail Continue Protonix for stress ulcer prophylaxis Continue Randolph hose and SCD's for DVT prophylaxis. Lovenox Further recommendations will be provided depending on the patient's clinical evaluation and follow up studies. The exam, history, and the medical decision-making described in the above note were completed with the assistance of the mid-level provider. I reviewed and agree with the findings presented. I attest that I had a [id number] encounter with the patient on the same day, and personally performed and documented my assessment and findings in the medical record.
--- NOTE | 2018-01-27 15:54 | P.PNNP ---
Subjective Interval history: On oxygen drain in the shoulders are present Physical Exam Vital signs: Vital Signs 01/26/18 16:00 01/26/18 17:00 01/26/18 17:56 Temperature 98.8 F Pulse Rate 104 H 105 H Respiratory Rate 28 H 30 H Blood Pressure 128/72 131/74 Pulse Oximetry 99 100 94 L 01/26/18 18:00 01/26/18 19:00 01/26/18 19:51 Temperature Pulse Rate 108 H 104 H 90 Respiratory Rate 24 28 H 26 H Blood Pressure 124/72 127/65 Pulse Oximetry 96 100 100 01/26/18 20:00 01/26/18 21:00 01/26/18 22:00 Temperature 98 F Pulse Rate 93 H 91 H 81 Respiratory Rate Blood Pressure 122/62 102/52 L 115/61 Pulse Oximetry 100 100 100 01/26/18 23:00 01/26/18 23:47 01/27/18 00:00 Temperature 97.6 F Pulse Rate 73 76 Respiratory Rate 26 H Blood Pressure 130/62 106/62 Pulse Oximetry 100 100 100 01/27/18 01:00 01/27/18 02:00 01/27/18 03:00 Temperature Pulse Rate 74 77 74 Respiratory Rate Blood Pressure 115/64 118/69 129/66 Pulse Oximetry 100 100 100 01/27/18 03:35 01/27/18 04:00 01/27/18 05:00 Temperature 97.9 F Pulse Rate 90 100 H 90 Respiratory Rate 24 Blood Pressure 124/67 120/65 Pulse Oximetry 100 100 100 01/27/18 06:00 01/27/18 07:00 01/27/18 08:00 Temperature 98.2 F Pulse Rate 91 H 95 H 83 Respiratory Rate 19 24 Blood Pressure 138/73 154/67 H Pulse Oximetry 100 100 100 01/27/18 08:30 01/27/18 08:43 01/27/18 09:00 Temperature Pulse Rate 85 100 H Respiratory Rate 26 H 22 Blood Pressure 125/67 126/69 Pulse Oximetry 100 100 100 01/27/18 10:00 01/27/18 10:13 01/27/18 11:00 Temperature Pulse Rate 85 88 92 H Respiratory Rate 26 H 18 22 Blood Pressure 107/55 L 107/70 Pulse Oximetry 100 100 01/27/18 12:00 01/27/18 13:00 01/27/18 14:00 Temperature 98.1 F Pulse Rate 94 H 94 H 97 H Respiratory Rate 28 H 18 22 Blood Pressure 118/60 121/62 122/59 L Pulse Oximetry 100 100 100 Intake & Output 01/26/18 01/27/18 01/27/18 18:59 06:59 18:59 Intake Total 710 / 710 529 / 529 1362.5 / 1362.5 Output Total 850 / 850 450 / 450 Balance -140 / -140 79 / 79 1362.5 / 1362.5 Weight 73 kg Intake: IV 530 / 530 300 / 300 1362.5 / 1362.5 D5W Inj 1,000 ML @ 75 mls/hr IV 100 / 100 1000 / 1000 .CONT .[id number] [facility] Rx#:[id number] Flexbumin 25% Inj 100 ML @ 60 100 / 100 100 / 100 mls/hr IV.SIG DAILY [facility] Rx#: [id number] Azactam Inj 2 GM In NS Inj 100 200 / 200 ML @ 200 mls/hr IV.SIG Q6H [facility] Rx#:[id number] Teflaro Inj 300 MG In NS Inj 100 / 100 100 / 100 100 ML @ 100 mls/hr IV.SIG Q12H [facility] Rx#:[id number] Vancomycin Inj 1,250 MG In NS 262.5 / 262.5 Inj 250 ML @ 250 mls/hr IV.SIG ONCE ONE Rx#:[id number] fentaNYL 10 mcg/mL Premix Drip 30 / 30 2,500 mcg In 250 ml @ 50 MCG/HR 5 mls/hr IV.SIG TITRATE PRN Rx #:[id number] RIFADIN Inj 300 MG In NS Inj 100 / 100 100 / 100 100 ML @ 100 mls/hr IV.SIG Q12H [facility] Rx#:[id number] Tube Feeding 180 / 180 109 / 109 Tube Irrigant 120 / 120 Output: Urine Amount (Catheter) 850 / 850 450 / 450 Indwelling Urethral Catheter 850 / 850 450 / 450 Other: Date of Last Bowel Movement 01/26/18 01/27/18 # Bowel Movements 1 1 # Incontinent Bowel Movements 1 Narrative: Patient extubated and alert. GENERAL: Well-nourished, well-developed patient. SKIN: Warm and dry. HEAD: Normocephalic. EYES: No scleral icterus. No injection or drainage. NECK: Supple, trachea midline. No JVD or lymphadenopathy. CARDIOVASCULAR: Irregular RESPIRATORY: Breath sounds diminished at bases GASTROINTESTINAL: Abdomen soft, non-tender, nondistended. EXTREMITIES: 1+ edema shoulder draining present NEUROLOGICAL: Awake, alert, . Non-focal.. - Urinary Catheter Management Condom Cath placed during this visit: no Indwelling Urethral Catheter Cath placed during this visit: yes Reason for continuing: Hourly intake/output Insertion date: 01/20/18 Insertion time: 11:30 Assessment and Plan - Assessment (1) Acute renal failure Code(s): N17.9 - Acute kidney failure, unspecified Status: Acute (2) Atrial fibrillation Code(s): I48.91 - Unspecified atrial fibrillation Status: Acute Qualifiers: Atrial fibrillation type: unspecified Qualified Code(s): I48.91 - Unspecified atrial fibrillation (3) Sepsis Code(s): A41.9 - Sepsis, unspecified organism Status: Acute Qualifiers: Sepsis type: methicillin resistant Staphylococcus aureus Qualified Code(s) : A41.02 - Sepsis due to Methicillin resistant Staphylococcus aureus - Plan KEKE with history of renal insufficiency. Creatinine 2.1 most likely prerenal azotemia, non oliguric. Hypernatremia with sodium level of 148 improved , D5 W at 75 ml/hr creatinine has declined to 2.1 on albumin1.3 L out, Lasix is on hold Continue to avoid nephrotoxins as possible. Will follow urinary output and BMP
--- NOTE | 2018-01-27 19:05 | P.PNID ---
Subjective Remarks: doing well Earlier o BIPAP on ventimask Dr Bernardo plans debridemnt b/l shoulders no fever MRSA from both shoulders making urine Antibiotics: vanco teflaro rifampin Lines: Line sites with no e.o infection Past Medical History: reviewed Allergies/Adverse Reactions: Allergies amoxicillin Allergy (Severe, Verified 01/13/18 20:44) Hives Objective Vital Signs 01/26/18 19:51 01/26/18 20:00 01/26/18 21:00 Temperature 98 F Pulse Rate 90 93 H 91 H Respiratory Rate 26 H Blood Pressure 122/62 102/52 L Pulse Oximetry 100 100 100 01/26/18 22:00 01/26/18 23:00 01/26/18 23:47 Temperature Pulse Rate 81 73 Respiratory Rate Blood Pressure 115/61 130/62 Pulse Oximetry 100 100 100 01/27/18 00:00 01/27/18 01:00 01/27/18 02:00 Temperature 97.6 F Pulse Rate 76 74 77 Respiratory Rate 26 H Blood Pressure 106/62 115/64 118/69 Pulse Oximetry 100 100 100 01/27/18 03:00 01/27/18 03:35 01/27/18 04:00 Temperature 97.9 F Pulse Rate 74 90 100 H Respiratory Rate 24 Blood Pressure 129/66 124/67 Pulse Oximetry 100 100 100 01/27/18 05:00 01/27/18 06:00 01/27/18 07:00 Temperature Pulse Rate 90 91 H 95 H Respiratory Rate 19 Blood Pressure 120/65 138/73 154/67 H Pulse Oximetry 100 100 100 01/27/18 08:00 01/27/18 08:30 01/27/18 08:43 Temperature 98.2 F Pulse Rate 83 85 Respiratory Rate 24 26 H Blood Pressure 125/67 Pulse Oximetry 100 100 100 01/27/18 09:00 01/27/18 10:00 01/27/18 10:13 Temperature Pulse Rate 100 H 85 88 Respiratory Rate 22 26 H 18 Blood Pressure 126/69 107/55 L Pulse Oximetry 100 100 01/27/18 11:00 01/27/18 12:00 01/27/18 13:00 Temperature 98.1 F Pulse Rate 92 H 94 H 94 H Respiratory Rate 22 28 H 18 Blood Pressure 107/70 118/60 121/62 Pulse Oximetry 100 100 100 01/27/18 14:00 01/27/18 16:17 Temperature Pulse Rate 97 H 74 Respiratory Rate 22 18 Blood Pressure 122/59 L Pulse Oximetry 100 Intake & Output 01/27/18 01/27/18 01/28/18 06:59 18:59 06:59 Intake Total 529 / 529 1562.5 / 1562.5 Output Total 450 / 450 Balance 79 / 79 1562.5 / 1562.5 Weight 73 kg Intake: IV 300 / 300 1562.5 / 1562.5 D5W Inj 1,000 ML @ 75 mls/hr IV 100 / 100 1000 / 1000 .CONT .[id number] [facility] Rx#:[id number] Flexbumin 25% Inj 100 ML @ 60 100 / 100 mls/hr IV.SIG DAILY [facility] Rx#: [id number] Teflaro Inj 300 MG In NS Inj 100 / 100 100 / 100 100 ML @ 100 mls/hr IV.SIG Q12H [facility] Rx#:[id number] Vancomycin Inj 1,250 MG In NS 262.5 / 262.5 Inj 250 ML @ 250 mls/hr IV.SIG ONCE ONE Rx#:[id number] RIFADIN Inj 300 MG In NS Inj 100 / 100 100 / 100 100 ML @ 100 mls/hr IV.SIG Q12H [facility] Rx#:[id number] Tube Feeding 109 / 109 Tube Irrigant 120 / 120 Output: Urine Amount (Catheter) 450 / 450 Indwelling Urethral Catheter 450 / 450 Other: Date of Last Bowel Movement 01/27/18 # Bowel Movements 1 # Incontinent Bowel Movements 1 01/25/18 10:40 Blood - Peripheral Aerobic Blood Culture - Preliminary No growth in 2 days 01/25/18 10:40 Blood - Peripheral Anaerobic Blood Culture - Preliminary No growth in 2 days 01/25/18 10:52 Blood - Peripheral Aerobic Blood Culture - Preliminary No growth in 2 days 01/25/18 10:52 Blood - Peripheral Anaerobic Blood Culture - Preliminary No growth in 2 days 01/23/18 14:42 Fluid - Other Gram Stain - Final 01/23/18 14:42 Fluid - Other Body Fluid Culture - Final S. aureus MRSA 01/24/18 16:30 Fluid - Other Gram Stain - Final 01/24/18 16:30 Fluid - Other Body Fluid Culture - Preliminary Staphylococcus species 01/20/18 17:14 Blood - Peripheral Aerobic Blood Culture - Final No growth in 5 days 01/20/18 17:14 Blood - Peripheral Anaerobic Blood Culture - Final No growth in 5 days 01/20/18 17:19 Blood - Peripheral Aerobic Blood Culture - Final No growth in 5 days 01/20/18 17:19 Blood - Peripheral Anaerobic Blood Culture - Final S. aureus MRSA Lab - Hematology Results 01/27/18 05:50 WBC 7.5 RBC 2.71 L Hgb 7.3 L Hct 23.2 L MCV 85.6 MCH 27.0 MCHC 31.5 L RDW 20.1 H Plt Count 129 L MPV 8.5 Prelim Diff (Auto) Slide review pending Neut % (Auto) 88.3 H Lymph % (Auto) 7.2 L Wise % (Auto) 2.8 Eos % (Auto) 1.2 Baso % (Auto) 0.5 Neut # (Auto) 6.6 Lymph # (Auto) 0.5 L Wise # (Auto) 0.2 Eos # (Auto) 0.1 Baso # (Auto) 0.0 WBC Differential . Diff Scan Auto diff confirmed Differential Comment . Platelet Estimate Low L Platelet Morphology Normal Ovalocytes 1+ H Keratocytes Occ H Lab - Chemistry Results 01/26/18 01/27/18 01/27/18 06:35 05:50 05:50 Sodium 152 H 148 H Potassium 4.5 4.4 Chloride 118 H 114 H Carbon Dioxide 26.3 27.7 Anion Gap 8 6 BUN 83 H 75 H Creatinine 2.29 H 2.13 H Estimated GFR 28 L 30 L Random Glucose 137 H 135 H Calcium 8.2 L 7.9 L B-Natriuretic Peptide 1119 H Imaging: ITS Impressions Abdomen/Pelvis CT 01/13/18 20:43 CONCLUSION: 1. Marked prostate enlargement. 2. Air-filled distention of sigmoid colon. 3. Cardiomegaly. Small bilateral pleural effusions. 4. Diffuse atherosclerotic disease and arterial calcification. 5. Old insufficiency type fractures of the left side of the sacrum and left- sided pubic rami. Cervical Spine MRI 01/14/18 00:00 CONCLUSION: 1. Examination is degraded by motion artifact. 2. Partial visualization of a mass involving the left supraclavicular region measuring 5.[address] scan of the soft tissues of the neck with IV contrast to further assess if the patient can't hold still for that exam. 3. Diffuse degenerative changes as detailed at each level in the above discussion. Head MRI 01/14/18 00:00 CONCLUSION: 1. No acute intracranial abnormality. 2. Encephalomalacia involving the left frontal lobe. Thoracic Spine MRI 01/14/18 00:00 CONCLUSION: 1. See the MRI of the cervical spine reported separately. 2. Orthopedic hardware at the thoracolumbar junction. 3. Patent central canal throughout. Head CT 01/14/18 00:31 CONCLUSION: 1. No acute intracranial findings. 2. 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 . Venous Doppler Study 01/14/18 09:20 CONCLUSION: 1. The study is negative for lower extremity deep venous thrombosis. Soft Tissue Neck CT 01/16/18 00:00 CONCLUSION: 1. Partially visualized fluid and gas collection deep to the left trapezius muscle in the posterior lower neck extending into the posterior thorax. Chest CT with contrast could be performed to image the remainder of the abnormality. Differential diagnosis includes abscess and hematoma. 2. Degenerative findings of the cervical spine. Chest CT 01/16/18 11:15 CONCLUSION: 1. Lobulated mass in the left supraclavicular region. It is most suggestive of a multi lobulated loculated abscess given the air within several of the masses. 2. Bibasilar areas of consolidation or atelectasis. There are mild bilateral pleural effusion. 3. There is a drain over the right shoulder region. 4. Postsurgical change at the thoracolumbar region as described above. Abscess Drainage CT 01/17/18 00:00 CONCLUSION: 1. Uncomplicated CT guided drainage, as above. WBC Scan Nuclear Medicine 01/18/18 00:00 CONCLUSION: 1. Multiple areas of abnormal uptake including at the upper lumbar spine around the upper left surgical hardware and at the L1-2 disc level. 2. Abnormal activity around the clip joints bilaterally being more prominent on the right. 3. Abnormal activity in the right C2-3 facet and the left C7-T1 facet. 4. Small area of signal abnormality in the posterior right sacroiliac joint region separate from surgical hardware. 5. All these areas are concerning for active infection. Shoulder X-Ray 01/21/18 00:00 CONCLUSION: Unusual positioning of the shoulder but I do not see any obvious displaced fracture of the shoulder. There is a healing third rib fracture and healing seventh rib fracture. Upper Extremity Ultrasound 01/22/18 00:00 CONCLUSION: 1. Lateral right shoulder subcutaneous complex fluid collection concerning for abscess. This is amenable to percutaneous drainage. Abscess Drainage Ultrasound 01/23/18 00:00 CONCLUSION: 1. Uncomplicated ultrasound-guided drainage catheter placement in complex inferolateral right shoulder fluid collection. Lumbar Spine MRI 01/23/18 00:00 CONCLUSION: Little or no change from previous exam. Nothing to suggest abscess Pelvis MRI 01/23/18 00:00 CONCLUSION: 1. Diffuse skin thickening and subcutaneous edema suggestive of cellulitis involving the left buttock without underlying abscess formation. 2. Rectosigmoid colon is distended with fecal debris suggestive of fecal impaction. Clinical correlation is recommended. 3. Markedly enlarged prostate. 4. Degenerative changes and scoliosis of the visualized lower lumbar spine are noted. 5. Bony changes involving the left sacrum likely representing old healed insufficiency fractures. Shoulder MRI 01/23/18 00:00 CONCLUSION: 1. Chronic complete rotator cuff tear. 2. Moderate joint fluid Abscess Drainage 01/24/18 15:37 CONCLUSION: 1. Uncomplicated percutaneous placement of drainage catheter in left shoulder. Chest X-Ray 01/26/18 06:00 CONCLUSION: Improved aeration at the lung bases bilaterally. There is only mild residual opacity at the right base. Physical Exam: GENERAL: on venti mask awake SKIN: Warm and dry. No rash HEAD: Atraumatic. Normocephalic. EYES: Pupils equal and round. No scleral icterus. No injection or drainage. ENT: No nasal bleeding or discharge. Mucous membranes pink and moist. NECK: Trachea midline. No JVD. No palpable masses, but diffuse pain CARDIOVASCULAR: Regular rate and rhythm. nO murmurs RESPIRATORY: No accessory muscle use. decrease BS on R anteriorly to auscultation. + rhonchi b/l GASTROINTESTINAL: Abdomen soft, non-tender, mildly distended. Hepatic and splenic margins not palpable. MUSCULOSKELETAL: Extremities without clubbing, cyanosis, no edema. No obvious deformities. + R shoulder drain in place, cloudy serosang fluid + new fluctuance . Left shoulder drains x2 with serosang fluid NEUROLOGICAL: awake, follows PSYCHIATRIC: appears calm Assessment and Plan - Plan High grade staph bacteremia. MRSA 2 D echo neg R shoulder effusion , cw R shoulder septic arhtritis (MRSA)-post I&D. . 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 and infection 2 yrs ago Encephalopathy - resolved B/L septic shoulder arhtritis, MRSA, cw metastatic staph infx PNA, RLL with acute VDRF- resolved High grade PNC allergy, but tolerated meropenem OK clinical improvement Recs: continue vancomycin dc azactam cont teflaro cont Rifampin fu clx JUSTIN when feasible agree with plan to OR by Dr Bernardo if medically cleared by CCM attending dw family @ b/s extensively dw Dr Vanesa Morales
[2018-01-27] MEDS: Melatonin 5 MG Tablet PO SCH (21:26)
[2018-01-28] MEDS: Oral Hygiene Kit OROPHARYNG SCH ×4 (00:03→18:37)
[2018-01-28] MEDS: Dextrose 5% in Water Inj 1,000 ML IV.CONT SCH ×2 (00:03→15:22)
[2018-01-28] MEDS: RIFAMPIN IV.SIG SCH ×2 (02:07→14:39)
[2018-01-28] MEDS: Ceftaroline Inj 300 MG in Sodium Chlor 0.9% Inj 100 ML IV.SIG SCH ×2 (02:07→14:39)
[2018-01-28] MEDS: SODIUM CHLOR 0.9% IV.SIG SCH ×2 (02:07→14:39)
[2018-01-28] MEDS: Levothyroxine 100 MCG Tablet PO SCH (05:12)
[2018-01-28 05:14] LABS: ABG Base Excess 0.2 mmol/L (-2-2); ABG PCO2 48 mmHg (38-42); ABG PO2 96 mmHg (61-120)
[2018-01-28 06:57] LABS: Baso % (Auto) 0.5 % (0.0-2.0); Eos # (Auto) 0.1 th/mm3 (0.0-0.4); Eos % (Auto) 1.4 % (0.0-4.0); Hemoglobin 7.1 gm/dL (13.0-17.0); Lymph # (Auto) 0.5 th/mm3 (1.0-4.8); Lymph % (Auto) 9.1 % (9.0-44.0); Mean Corpuscular HGB Conc 32.1 % (32.0-36.0); Mean Corpuscular Hemoglobin 27.1 pg (27.0-34.0); Mean Corpuscular Volume 84.3 fL (80.0-100.0); Mean Platelet Volume 8.8 fL (7.0-11.0); Mono # (Auto) 0.2 th/mm3 (0.0-0.9); Mono % (Auto) 3.3 % (0.0-8.0); Neut # (Auto) 4.6 th/mm3 (1.8-7.7); Neut % (Auto) 85.7 % (16.0-70.0); Platelet Count 135 th/mm3 (150-450); Red Blood Count 2.61 mil/mm3 (4.50-5.90); Red Cell Distribution Width 20.1 % (11.6-17.2); White Blood Count 5.4 th/mm3 (4.0-11.0)
[2018-01-28 07:22] LABS: Alanine Aminotransferase 8 U/L (12-78); Albumin 2.3 g/dL (3.4-5.0); Anion Gap 6 meq/L (5-15); Aspartate Aminotransferase 8 U/L (15-37); Blood Urea Nitrogen 65 mg/dL (7-18); Carbon Dioxide 28.1 meq/L (21.0-32.0); Chloride 111 meq/L (98-107); Glomerular Filtration Rate 32 mL/min (>89); Glucose,Random 147 mg/dL (74-106); Potassium 3.9 meq/L (3.5-5.1); Sodium 145 meq/L (136-145)
[2018-01-28 07:24] LABS: Alkaline Phosphatase 124 U/L (45-117); Total Protein 5.2 g/dL (6.4-8.2)
[2018-01-28 07:54] LABS: Lymphocytes 8 % (9-44); Monocytes 3 % (0-8); Myelocytes 1 % (0-0); Ovalocytes 1+; Tear Drop Cells 1+
[2018-01-28] MEDS: Pantoprazole Sodium 20 MG DR Tablet PO SCH (08:04)
[2018-01-28] MEDS: Senna/Docusate Sodium 8.6/50 MG Tablet PO SCH ×2 (08:04→20:45)
[2018-01-28] MEDS: Metoprolol Tartrate 25 MG Tablet PO SCH ×2 (08:04→20:45)
[2018-01-28] MEDS: Citalopram 20 MG Tablet PO SCH (08:04)
[2018-01-28] MEDS: amLODIPine 5 MG Tablet PO SCH (08:04)
[2018-01-28] MEDS: Albumin Human 25% Inj 100 ML IV.SIG SCH (08:05)
[2018-01-28] MEDS: Chlorhexidine 0.12% Oral Kit 15 ML UDC OROPHARYNG SCH ×2 (08:06→20:45)
--- NOTE | 2018-01-28 08:55 | P.PNCA ---
Subjective Interval history: Patient extubated. Noncommunicative but family says he is aware of surroundings and people and expresses understanding. Medications and Allergies Active Medications: Active Medications Acetaminophen (Tylenol) 650 mg PO Q4H PRN PRN Reason: Temp > 100.4 Hydrocodone Bitart/Acetaminophen ([place] 5/325) 1 tab PO Q4H PRN PRN Reason: PAIN LESS THAN 5 ON SCALE Last Admin: 01/28/18 08:04 Dose: 1 tab Hydrocodone Bitart/Acetaminophen ([place] 5/325) 2 tab PO Q6H PRN PRN Reason: PAIN SCALE 5 TO 10 Last Admin: 01/27/18 21:41 Dose: 2 tab Al Hydroxide/Mg Hydroxide (Milk Of Magnesia Liq) 30 ml PO Q12H PRN PRN Reason: Mild Constipation Last Admin: 01/25/18 08:31 Dose: 30 ml Al Hydroxide/Mg Hydroxide (Milk Of Magnesia Liq) 30 ml PO Q12H PRN PRN Reason: CONSTIPATION Albuterol (Duoneb Neb (Prn)) 1 ampul NEB Q2HR NEB PRN PRN Reason: WHEEZING Last Admin: 01/27/18 21:05 Dose: 1 ampul Amlodipine Besylate (Norvasc) 10 mg PO DAILY [facility] Last Admin: 01/28/18 08:04 Dose: 10 mg Bisacodyl (Dulcolax Supp) 10 mg RECTAL DAILY PRN PRN Reason: SEVERE CONSITIPATION Chlorhexidine Gluconate (Peridex 0.12% Oral Kit) 15 ml OROPHARYNG BID@0800, 2000 [facility] Last Admin: 01/28/18 08:06 Dose: 15 ml Citalopram Hydrobromide (Celexa) 20 mg PO DAILY [facility] Last Admin: 01/28/18 08:04 Dose: 20 mg Epinephrine (Racepinephrine 2.25% Neb) 0.5 ml NEB Q3HR NEB PRN PRN Reason: any upper airway noise or stri Furosemide (Lasix Inj) 40 mg IV.PUSH DAILY [facility] Last Admin: 01/24/18 08:11 Dose: 40 mg Hydralazine HCl (Apresoline Inj) 20 mg IV.PUSH Q4H PRN PRN Reason: SBP>160, DBP>90 Last Admin: 01/23/18 05:18 Dose: 20 mg Sodium Chloride (Ns Inj) 500 mls @ 30 mls/hr IV.SIG .Q10H [facility] Propofol (Diprivan 1000 Mg/100 Ml Inj) 1,000 mg in 100 mls @ 2.082 mls/hr IV.CONT TITRATE PRN; Protocol PRN Reason: Per Protocol Last Titration: 01/25/18 07:00 Dose: Infused Fentanyl (Fentanyl 10 Mcg/Ml Premix Drip) 2,500 mcg in 250 mls @ 5 mls/hr IV.SIG TITRATE PRN; Protocol PRN Reason: Per Protocol Last Titration: 01/26/18 14:16 Dose: Infused Midazolam HCl (Versed Inj) 100 mg in 100 mls @ 2 mls/hr IV.CONT TITRATE PRN; Protocol PRN Reason: See protocol Last Titration: 01/25/18 07:00 Dose: Infused Albumin Human (Flexbumin 25% Inj) 100 mls @ 60 mls/hr IV.SIG DAILY [facility] Last Admin: 01/28/18 08:05 Dose: 60 mls/hr Norepinephrine Bitartrate (Levophed-Dextrose 4 Mg/250 Ml Drip) 4 mg in 250 mls @ 7.5 mls/hr IV.SIG TITRATE PRN; Protocol PRN Reason: Per Protocol Rifampin 300 mg/ Sodium (Chloride) 100 mls @ 100 mls/hr IV.SIG Q12H [facility] Last Infusion: 01/28/18 03:07 Dose: Infused Dextrose (D5w Inj) 1,000 mls @ 75 mls/hr IV.CONT .[id number] [facility] Last Admin: 01/28/18 00:03 Dose: 75 mls/hr Ceftaroline Fosamil 300 mg/ (Sodium Chloride) 100 mls @ 100 mls/hr IV.SIG Q12H [facility] Last Infusion: 01/28/18 03:07 Dose: Infused Lactulose (Lactulose Liq) 30 ml PO DAILY PRN PRN Reason: SEVERE CONSITIPATION Last Admin: 01/25/18 22:14 Dose: 30 ml Lactulose (Lactulose Liq) 30 ml PO BID PRN PRN Reason: CONSTIPATION Levothyroxine Sodium (Synthroid) 100 mcg PO DAILY@0600 [facility] Last Admin: 01/28/18 05:12 Dose: 100 mcg Melatonin (Melatonin) 5 mg PO HS [facility] Last Admin: 01/27/18 21:26 Dose: 5 mg Metoprolol Tartrate (Lopressor) 12.5 mg PO BID [facility] Last Admin: 01/28/18 08:04 Dose: 12.5 mg Miscellaneous (Pill Splitter) 1 each OTHER UNSCH PRN PRN Reason: PILL SPIT Miscellaneous Medication () 1 each OROPHARYNG 0000,0400,1200,1600 [facility] Last Admin: 01/28/18 03:40 Dose: Not Given Morphine Sulfate (Morphine Inj) 2 mg IV.PUSH Q3H PRN PRN Reason: pain 1-10 when npo Last Admin: 01/27/18 03:49 Dose: 2 mg Ondansetron HCl (Zofran Inj) 4 mg IV.PUSH Q6H PRN PRN Reason: NAUSEA OR VOMITING Pantoprazole Sodium (Protonix) 20 mg PO DAILY [facility] Last Admin: 01/28/18 08:04 Dose: 20 mg Pharmacy Profile Note (Vancomycin Consult Pharmacy) 1 each OTHER UNSCH PRN PRN Reason: Pharmacy to dose Senna/Docusate Sodium (Diana-Colace) 1 tab PO BID [facility] Last Admin: 01/28/18 08:04 Dose: 1 tab Sennosides (Senokot) 17.2 mg PO Q12H PRN PRN Reason: Moderate Constipation Sodium Chloride (Ns Flush) 2 ml IV.FLUSH BID [facility] Last Admin: 01/28/18 08:06 Dose: 2 ml Sodium Chloride (Ns Flush) 2 ml IV.FLUSH PRN PRN PRN Reason: FLUSH AFTER USING IV ACCESS Last Admin: 01/23/18 20:08 Dose: 2 ml Tamsulosin HCl (Flomax) 0.4 mg PO DAILY [facility] Last Admin: 01/28/18 08:05 Dose: 0.4 mg Terbutaline Sulfate (Brethine Inj) 1 mg SQ UNSCH PRN PRN Reason: For Extravasation Allergies Allergy/AdvReac Type Severity Reaction Status Date / Time amoxicillin Allergy Severe Hives Verified 01/13/18 20:44 Home Medications Medication Instructions Recorded Confirmed Type amlodipine 5 mg PO DAILY 01/13/18 01/13/18 History citalopram 20 mg PO DAILY 01/13/18 01/13/18 History levothyroxine [Synthroid] 100 mcg PO DAILY 01/13/18 01/13/18 History lisinopril 10 mg PO DAILY 01/13/18 01/13/18 History metoprolol succinate 50 mg PO DAILY 01/13/18 01/13/18 History pantoprazole 20 mg PO DAILY 01/13/18 01/13/18 History prednisone 40 mg PO DAILY 01/13/18 01/13/18 History tamsulosin [Flomax] 0.4 mg PO DAILY 01/13/18 01/13/18 History Physical Exam Vital signs: Vital Signs 01/27/18 09:00 01/27/18 10:00 01/27/18 10:13 Temperature Pulse Rate 100 H 85 88 Respiratory Rate 22 26 H 18 Blood Pressure 126/69 107/55 L Pulse Oximetry 100 100 01/27/18 11:00 01/27/18 12:00 01/27/18 13:00 Temperature 98.1 F Pulse Rate 92 H 94 H 94 H Respiratory Rate 22 28 H 18 Blood Pressure 107/70 118/60 121/62 Pulse Oximetry 100 100 100 01/27/18 14:00 01/27/18 15:00 01/27/18 16:00 Temperature Pulse Rate 97 H 103 H 104 H Respiratory Rate 22 24 28 H Blood Pressure 122/59 L 126/57 L 129/61 Pulse Oximetry 100 100 100 01/27/18 16:17 01/27/18 17:00 01/27/18 18:00 Temperature Pulse Rate 74 102 H 101 H Respiratory Rate 18 24 24 Blood Pressure 114/56 L 124/73 Pulse Oximetry 100 100 01/27/18 20:00 01/27/18 21:00 01/27/18 21:09 Temperature 99.1 F Pulse Rate 96 H 101 H 95 H Respiratory Rate 28 H 28 H 18 Blood Pressure 136/69 112/55 L Pulse Oximetry 100 98 98 01/27/18 22:00 01/27/18 23:00 01/27/18 23:10 Temperature Pulse Rate 107 H 94 H Respiratory Rate 28 H 26 H Blood Pressure 108/55 L 102/59 L Pulse Oximetry 98 98 100 01/28/18 00:00 01/28/18 01:00 01/28/18 01:45 Temperature 98.6 F Pulse Rate 98 H 88 Respiratory Rate 24 24 Blood Pressure 100/68 121/64 Pulse Oximetry 100 100 100 01/28/18 02:00 01/28/18 03:00 01/28/18 04:00 Temperature 98.6 F Pulse Rate 79 74 76 Respiratory Rate 24 24 Blood Pressure 115/59 L 119/60 132/63 Pulse Oximetry 100 99 99 01/28/18 04:27 01/28/18 05:00 01/28/18 06:00 Temperature Pulse Rate 85 86 Respiratory Rate 24 24 Blood Pressure 129/64 148/69 H Pulse Oximetry 100 100 100 Intake & Output 01/27/18 01/28/18 01/28/18 18:59 06:59 18:59 Intake Total 1946.5 / 1946.5 1852 / 1852 Output Total 930 / 930 630 / 630 Balance 1016.5 / 1016.5 1222 / 1222 Weight 74.5 kg Intake: IV 1562.5 / 1562.5 1200 / 1200 D5W Inj 1,000 ML @ 75 mls/hr IV 1000 / 1000 1000 / 1000 .CONT .[id number] [facility] Rx#:[id number] Flexbumin 25% Inj 100 ML @ 60 100 / 100 mls/hr IV.SIG DAILY [facility] Rx#: [id number] Teflaro Inj 300 MG In NS Inj 100 / 100 100 / 100 100 ML @ 100 mls/hr IV.SIG Q12H [facility] Rx#:[id number] Vancomycin Inj 1,250 MG In NS 262.5 / 262.5 Inj 250 ML @ 250 mls/hr IV.SIG ONCE ONE Rx#:[id number] RIFADIN Inj 300 MG In NS Inj 100 / 100 100 / 100 100 ML @ 100 mls/hr IV.SIG Q12H [facility] Rx#:[id number] Oral 0 / 0 Oral Supplement 0 / 0 Tube Feeding 234 / 234 532 / 532 Tube Irrigant 120 / 120 Water Bolus Amount 150 / 150 Output: Urine Amount (Catheter) 850 / 850 575 / 575 Indwelling Urethral Catheter 850 / 850 575 / 575 Wound Drainage 80 / 80 55 / 55 # 2 Left Shoulder 30 / 30 30 / 30 Left Shoulder 0 / 0 0 / 0 Right Shoulder 50 / 50 25 / 25 Other: Date of Last Bowel Movement 01/27/18 01/27/18 # Bowel Movements [address] with IV ABX Being fed via NG Hgb 8.6 Lungs clear No S3 1+ edema Abdomen soft Wound clean and dry shoulder - Urinary Catheter Management Condom Cath placed during this visit: no Indwelling Urethral Catheter Cath placed during this visit: yes Reason for continuing: Hourly intake/output Insertion date: 01/20/18 Insertion time: 11:30 Results 01/28/18 06:15 01/28/18 06:15 Cardiac Enzymes 01/27/18 01/28/18 Range/Units 05:50 06:15 AST 8 L (15-37) U/L B-Natriuretic Peptide 1119 H (0-100) pg/mL Coagulation 01/27/18 Range/Units 05:50 B-Natriuretic Peptide 1119 H (0-100) pg/mL CBC 01/27/18 01/28/18 Range/Units 05:50 06:15 WBC 7.5 5.4 (4.0-11.0) th/mm3 RBC 2.71 L 2.61 L (4.50-5.90) mil/mm3 Hgb 7.3 L 7.1 L (13.0-17.0) gm/dL Hct 23.2 L 22.0 L (39.0-51.0) % Plt Count 129 L 135 L (150-450) th/mm3 Neut # (Auto) 6.6 4.6 (1.8-7.7) th/mm3 Lymph # (Auto) 0.5 L 0.5 L (1.0-4.8) th/mm3 [place] # (Auto) 0.2 0.2 (0.0-0.9) th/mm3 Eos # (Auto) 0.1 0.1 (0.0-0.4) th/mm3 Baso # (Auto) 0.0 0.0 (0.0-0.2) th/mm3 Comprehensive Metabolic Panel 01/27/18 01/28/18 Range/Units 05:50 06:15 Sodium 148 H 145 (136-145) meq/L Potassium 4.4 3.9 (3.5-5.1) meq/L Chloride 114 H 111 H (98-107) meq/L Carbon Dioxide 27.7 28.1 (21.0-32.0) meq/L BUN 75 H 65 H (7-18) mg/dL Creatinine 2.13 H 2.00 H (0.60-1.30) mg/dL Calcium 7.9 L 8.0 L (8.5-10.1) mg/dL AST 8 L (15-37) U/L ALT 8 L (12-78) U/L Alkaline Phosphatase 124 H (45-117) U/L Total Protein 5.2 L D (6.4-8.2) g/dL Albumin 2.3 L (3.4-5.0) g/dL Intake and Output 01/27/18 01/28/18 01/28/18 22:59 06:59 14:59 Intake Total 584 / 584 1852 / 1852 Output Total 930 / 930 630 / 630 Balance -346 / -346 1222 / 1222 Intake: IV 200 / 200 1200 / 1200 D5W Inj 1,000 ML @ 75 mls/hr IV 1000 / 1000 .CONT .[id number] [facility] Rx#:[id number] Teflaro Inj 300 MG In NS Inj 100 / 100 100 / 100 100 ML @ 100 mls/hr IV.SIG Q12H [facility] Rx#:[id number] RIFADIN Inj 300 MG In NS Inj 100 / 100 100 / 100 100 ML @ 100 mls/hr IV.SIG Q12H [facility] Rx#:[id number] Oral 0 / 0 Oral Supplement 0 / 0 Tube Feeding 234 / 234 532 / 532 Tube Irrigant 120 / 120 Water Bolus Amount 150 / 150 Output: Urine Amount (Catheter) 850 / 850 575 / 575 Indwelling Urethral Catheter 850 / 850 575 / 575 Wound Drainage 80 / 80 55 / 55 # 2 Left Shoulder 30 / 30 30 / 30 Left Shoulder 0 / 0 0 / 0 Right Shoulder 50 / 50 25 / 25 Other: Date of Last Bowel Movement 01/27/18 01/27/18 # Bowel Movements 0 0 Weight 74.5 kg - Imaging and Cardiology Imaging: Impressions Abscess Drainage 01/24/18 15:37 CONCLUSION: 1. Uncomplicated percutaneous placement of drainage catheter in left shoulder. Assessment and Plan - Assessment (1) Pulmonary edema Code(s): J81.1 - Chronic pulmonary edema Status: Acute Plan: He is overall improved. CV brown very stable. Cleared for shoulder drainage and lavage
--- NOTE | 2018-01-28 09:19 | P.PNCC ---
Subjective Subjective Remarks/Hospital Course: This 82-year-old gentleman was transferred emergently from the floor to the surgical intensive care unit because of rapid onset combined hypoxemic and hypercapnic respiratory failure. On arrival he has diffuse crackles throughout both lung santizo and his neck veins are distended. On admission several days ago he was dehydrated and had an element of acute kidney injury. His weight is up about 5 kg since admission though his renal function has improved. On arrival he is breathing 40 times a minute on a nonrebreathing mask with pH of 7.18 and P CO2 of 74. His acidosis is purely respiratory and associated with bronchospasm from fluid overload. B natruretic peptide is elevated to greater than 2000. Other pertinent major problems include septic joint drainage and treatment. 01/22: Critical care reconsulted for worsening resp status. On BIPAP with fulkl face mask. CXR with bilat infiltrates/ pulm edema. Reaccumulated rt shoulder collection. After d/w family proceeded with intubation and placed patient on [facility] ventilation. Placed central line. D/W Dr. Mani Sherman who is arranging US guided drainage/ drain placement for shoulder collection. 01/23: Remains sedated, orally intubated on mechanical ventilation. Significant diuresis with 11 L negative over the last 3 days. Awaiting left shoulder percutaneous drainage of collection by interventional radiology today. 1 unit PRBCs ordered as patient has borderline blood pressures with hemoglobin less than 8. 01/24: Sedated, arousable, orally intubated on mechanical ventilation. Tolerating tube feeds. s/p [id number] drain placement in rt shoulder fluid collection on 01/23. 01/25: He had a good trial on spontaneous breathing yesterday. Mechanical ventilation overnight. Started on spontaneous breathing trial this morning at 12/5 and volumes were small. Increased to 15/8 and volumes looked better with each breath. Still producing lots of thick secretions, dark yellow. Unable to extubate due to general weakness and inability to cough numerous secretions. FiO2 reduced to 40% and gas exchange good. Clearly improved respiratory function from yesterday. Tolerating tube feeds well, gastric residuals minimal , remains constipated and will start on milk of magnesia and. 01/26: Right lower lobe nicely reexpanded after 24 hours on APRV. FI02 reduced to 30%. More alert today, will attempt to extubate. Worsening azotemia appears to be prerenal. We will need to give some volume back. General strength and alertness has improved. 01/27: On BiPAP since last evening. Appears comfortable with 100% O2 sat. Awake and alert. On tube feeds via NG tube 01/28: Resting comfortably, On BIPAP overnight. Tolerating facemask during day prn. Tolerating tube feeds. Hgb 7.1 today, 1 unit PRBCs ordered. Objective Vital Signs / I&O: Vital Signs 01/27/18 10:00 01/27/18 10:13 01/27/18 11:00 Temperature Pulse Rate 85 88 92 H Respiratory Rate 26 H 18 22 Blood Pressure 107/55 L 107/70 Pulse Oximetry 100 100 01/27/18 12:00 01/27/18 13:00 01/27/18 14:00 Temperature 98.1 F Pulse Rate 94 H 94 H 97 H Respiratory Rate 28 H 18 22 Blood Pressure 118/60 121/62 122/59 L Pulse Oximetry 100 100 100 01/27/18 15:00 01/27/18 16:00 01/27/18 16:17 Temperature Pulse Rate 103 H 104 H 74 Respiratory Rate 24 28 H 18 Blood Pressure 126/57 L 129/61 Pulse Oximetry 100 100 01/27/18 17:00 01/27/18 18:00 01/27/18 20:00 Temperature 99.1 F Pulse Rate 102 H 101 H 96 H Respiratory Rate 24 24 28 H Blood Pressure 114/56 L 124/73 136/69 Pulse Oximetry 100 100 100 01/27/18 21:00 01/27/18 21:09 01/27/18 22:00 Temperature Pulse Rate 101 H 95 H 107 H Respiratory Rate 28 H 18 28 H Blood Pressure 112/55 L 108/55 L Pulse Oximetry 98 98 98 01/27/18 23:00 01/27/18 23:10 01/28/18 00:00 Temperature 98.6 F Pulse Rate 94 H 98 H Respiratory Rate 26 H 24 Blood Pressure 102/59 L 100/68 Pulse Oximetry 98 100 100 01/28/18 01:00 01/28/18 01:45 01/28/18 02:00 Temperature Pulse Rate 88 79 Respiratory Rate 24 24 Blood Pressure 121/64 115/59 L Pulse Oximetry 100 100 100 01/28/18 03:00 01/28/18 04:00 01/28/18 04:27 Temperature 98.6 F Pulse Rate 74 76 Respiratory Rate 24 Blood Pressure 119/60 132/63 Pulse Oximetry 99 99 100 01/28/18 05:00 01/28/18 06:00 01/28/18 08:35 Temperature Pulse Rate 85 86 Respiratory Rate 24 24 Blood Pressure 129/64 148/69 H Pulse Oximetry 100 100 96 01/28/18 09:10 Temperature Pulse Rate Respiratory Rate 28 H Blood Pressure Pulse Oximetry Intake & Output 01/27/18 01/28/18 01/28/18 18:59 06:59 18:59 Intake Total 1946.5 / 1946.5 1852 / 1852 Output Total 930 / 930 630 / 630 Balance 1016.5 / 1016.5 1222 / 1222 Weight 74.5 kg Intake: IV 1562.5 / 1562.5 1200 / 1200 D5W Inj 1,000 ML @ 75 mls/hr IV 1000 / 1000 1000 / 1000 .CONT .[id number] [facility] Rx#:[id number] Flexbumin 25% Inj 100 ML @ 60 100 / 100 mls/hr IV.SIG DAILY [facility] Rx#: [id number] Teflaro Inj 300 MG In NS Inj 100 / 100 100 / 100 100 ML @ 100 mls/hr IV.SIG Q12H [facility] Rx#:[id number] Vancomycin Inj 1,250 MG In NS 262.5 / 262.5 Inj 250 ML @ 250 mls/hr IV.SIG ONCE ONE Rx#:[id number] RIFADIN Inj 300 MG In NS Inj 100 / 100 100 / 100 100 ML @ 100 mls/hr IV.SIG Q12H [facility] Rx#:[id number] Oral 0 / 0 Oral Supplement 0 / 0 Tube Feeding 234 / 234 532 / 532 Tube Irrigant 120 / 120 Water Bolus Amount 150 / 150 Output: Urine Amount (Catheter) 850 / 850 575 / 575 Indwelling Urethral Catheter 850 / 850 575 / 575 Wound Drainage 80 / 80 55 / 55 # 2 Left Shoulder 30 / 30 30 / 30 Left Shoulder 0 / 0 0 / 0 Right Shoulder 50 / 50 25 / 25 Other: Date of Last Bowel Movement 01/27/18 01/27/18 # Bowel Movements 0 0 Result Diagrams: 01/28/18 06:15 01/28/18 06:15 Objective Remarks: General: Awake, alert, following commands. On BiPAP with full facemask HEENT: Neck chronically stiff consistent with age. Chest/pulm: air entry improved at right base, lung santizo uniformly clear, no wheezes or crackles. CVS: S1S2, irregular rhythm, no JVD. Improved rate control this morning. Abd: Soft, nontender, bowel sounds present. No guarding. No distention. Ext: Warm bilaterally. Bilateral drains in shoulder collections. Limbs are warm and well perfused. Drains bilaterally and shoulders Neuro: On BiPAP with full facemask. Opens eyes to soft voice and tracks with eyes. Nods head to questions. Moves arms and legs weakly. Recognizes family Assessment and Plan - Assessment and Plan Plan: Assessment and Plan: Acute combined hypercapnic and hypoxemic respiratory failure Fluid overload/noncardiogenic Pulmonary edema secondary to sepsis Possible pneumonia Mucus plugging -BNP greater than 2000, improving -Bronchodilators -diuresed to mobilize fluid -Scott required for BPH as well as diuresis -intubated and placed on mech ventilation on 01/22. -Status post bronchoscopy with BAL on 01/22 with significant mucus plugging noted in the right-sided airways including right mainstem bronchus for which BAL was performed with significant clearing of airway. Bronchial washing sent for Gram stain and cultures. Follow-up chest x-ray post bronchoscopy showed significant improvement in aeration of right lung. -Continue mechanical ventilation, vent bundle. Added Mucomyst to mobilize secretions. -Frequent suctioning required -Overnight on APRV. Lung santizo clear, chest x-ray much improved, attempt extubation today 01/25. MRSA septicemia, septic right shoulder, L spine diskitis, left supraclavicular abscess sepsis Right shoulder effusion. septic right shoulder, s/p I&D Urinary tract infection. 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 Taper steroid Blood cultures positive for MRSA. 2D echocardiogram did not show any findings consistent with vegetations. Continue vancomycin, Levaquin, meropenem per ID. Patient also had a right shoulder effusion, orthopedics aspirated the shoulder - approximately 30 cc of purulent fluid. Orthopedics planning OR for drainage ob bilateral shoulder collections on 01/29 Continue IV antibiotics per infectious disease recommendations. Infectious disease following repeat blood cultures ntd Cardiothoracic surgeon was consulted for evaluation of supraclavicular mass/ poss abscess NM WBC scan 01/18/18 and 01/19/18. Patient received ativan as not able to tolerate CT imaging he was noted agitated in CT and imaging needed to be repeat. Imaging discussed with radiology Dr and it seems patient with multiple focal infections bilateral shoulders, also back at the hardware with diskitis/ osteomyelitis. Neurology, ID, hem onc ff. CTS consulted no surgical intervention required at this time. IR consulted s/p CT-guided drainage of left posterior supraclavicular/posterior chest wall abscess on 01/17/18. s/p US guided drainage of shoulder collection by IR done on 01/23 KEKE on CKD. Being diuresed, Strict I/O, monitor/ replete electrolytes, follow BUN/ Cr Nephrology following, appreciate recs. Significant fluid removal with diuresis but creatinine increased. Fluid balance appears about the right today 01/25, but mild prerenal azotemia noted Worsening prerenal azotemia, we are forced to initiate moderate hydration. We will follow BNP. CVS Atrial Fibrillation, permanent Noncardiogenic pulmonary edema Hypotension (resolved) Rate well controlled. Recent ECHO EF 65% Dr. Garner following-discussed with Dr. Garner on 01/22. We agreed with diuresing patient for noncardiogenic pulmonary edema while watching renal function/ BP. Hold antihypertensives. On 01/23 ordered Levophed for pressor support to keep MAP greater than 65mm Hg however has not required pressors. Hold off on further diuresis due to rising creatinine. Start Lopressor 12 and half milligrams twice daily Anemia 1 unit PRBCs ordered to be transfused on 01/23, 1 unit PRBCs ordered on 01/28 to keep hemoglobin above 8 g%. No overt evidence of blood loss. Follow CBC. Protein calorie malnutrition -Inserted NGT 01/22 following intubation, Continue tube feeds and advance to goal as well tolerated. BPH - Continue Flomax. DVT prophylaxis per surgeon Access: RIJ central line placed 01/22 01/22: D/w Dr. Mani Sherman, D/W [employer] NEGATIVE, D/W patient's family at bedside. 01/23 D/W patient's daughter at bedside regarding current clinical status and plan of care and they voiced understanding and were agreeable with plan of care. D/W ID-Dr Tom on 01/23 01/24: Discussed with patient's family at bedside regarding current clinical status and plan of care and they voiced understanding. Discussed with ID Dr. Tom, discussed with Dr. Piña. Discussed with [employer] NEGATIVE. 01/25: I spoke with patient's daughter at the bedside this morning. We discussed goals for ventilator weaning and nutrition. I spoke with extensive family members later in the day. 01/26: I spoke at length with the patient's daughter this morning and will speak extensively with other family members later today. 01/27: I spoke with patient's family member at bedside regarding his respiratory status and plan of care and he voiced understanding. Will come back and update other family members later. 01/28: I will update family when they arrive.
[2018-01-28] MEDS ORDERED: Sodium Chlor 0.9% Inj 250 ML IV.SIG SCH (10:00)
--- NOTE | 2018-01-28 14:54 | P.PNNP ---
Subjective Interval history: on o2 responding to questions Physical Exam Vital signs: Vital Signs 01/27/18 15:00 01/27/18 16:00 01/27/18 16:17 Temperature Pulse Rate 103 H 104 H 74 Respiratory Rate 24 28 H 18 Blood Pressure 126/57 L 129/61 Pulse Oximetry 100 100 01/27/18 17:00 01/27/18 18:00 01/27/18 20:00 Temperature 99.1 F Pulse Rate 102 H 101 H 96 H Respiratory Rate 24 24 28 H Blood Pressure 114/56 L 124/73 136/69 Pulse Oximetry 100 100 100 01/27/18 21:00 01/27/18 21:09 01/27/18 22:00 Temperature Pulse Rate 101 H 95 H 107 H Respiratory Rate 28 H 18 28 H Blood Pressure 112/55 L 108/55 L Pulse Oximetry 98 98 98 01/27/18 23:00 01/27/18 23:10 01/28/18 00:00 Temperature 98.6 F Pulse Rate 94 H 98 H Respiratory Rate 26 H 24 Blood Pressure 102/59 L 100/68 Pulse Oximetry 98 100 100 01/28/18 01:00 01/28/18 01:45 01/28/18 02:00 Temperature Pulse Rate 88 79 Respiratory Rate 24 24 Blood Pressure 121/64 115/59 L Pulse Oximetry 100 100 100 01/28/18 03:00 01/28/18 04:00 01/28/18 04:27 Temperature 98.6 F Pulse Rate 74 76 Respiratory Rate 24 Blood Pressure 119/60 132/63 Pulse Oximetry 99 99 100 01/28/18 05:00 01/28/18 06:00 01/28/18 07:00 Temperature Pulse Rate 85 86 91 H Respiratory Rate 24 24 20 Blood Pressure 129/64 148/69 H 152/76 H Pulse Oximetry 100 100 100 01/28/18 08:00 01/28/18 08:02 01/28/18 08:15 Temperature 98.0 F Pulse Rate 91 H 92 H Respiratory Rate 21 20 Blood Pressure 158/122 H 160/78 H Pulse Oximetry 100 100 99 01/28/18 08:35 01/28/18 09:00 01/28/18 09:10 Temperature Pulse Rate 85 Respiratory Rate 20 28 H Blood Pressure 115/59 L Pulse Oximetry 96 89 L 01/28/18 09:17 01/28/18 10:00 12/04/18 11:00 Temperature Pulse Rate 83 84 85 Respiratory Rate 18 20 20 Blood Pressure 104/57 L 141/64 H Pulse Oximetry 100 99 01/28/18 11:06 01/28/18 12:00 01/28/18 13:44 Temperature 98.2 F 97.7 F Pulse Rate 81 85 Respiratory Rate 24 20 30 H Blood Pressure 141/64 H 141/75 H Pulse Oximetry 99 98 Intake & Output 01/27/18 01/28/18 01/28/18 18:59 06:59 18:59 Intake Total 1946.5 / 1946.5 1852 / 1852 100 / 100 Output Total 930 / 930 630 / 630 Balance 1016.5 / 1016.5 1222 / 1222 100 / 100 Weight 74.5 kg Intake: IV 1562.5 / 1562.5 1200 / 1200 100 / 100 D5W Inj 1,000 ML @ 75 mls/hr IV 1000 / 1000 1000 / 1000 .CONT .[id number] [facility] Rx#:[id number] Flexbumin 25% Inj 100 ML @ 60 100 / 100 100 / 100 mls/hr IV.SIG DAILY [facility] Rx#: [id number] Teflaro Inj 300 MG In NS Inj 100 / 100 100 / 100 100 ML @ 100 mls/hr IV.SIG Q12H [facility] Rx#:[id number] Vancomycin Inj 1,250 MG In NS 262.5 / 262.5 Inj 250 ML @ 250 mls/hr IV.SIG ONCE ONE Rx#:[id number] RIFADIN Inj 300 MG In NS Inj 100 / 100 100 / 100 100 ML @ 100 mls/hr IV.SIG Q12H [facility] Rx#:[id number] Oral 0 / 0 Oral Supplement 0 / 0 Tube Feeding 234 / 234 532 / 532 Tube Irrigant 120 / 120 Water Bolus Amount 150 / 150 Intake (Blood Product) Amt 0 / 0 Rbc As-3 Leukoreduced Unit 0 / 0 [id number] Output: Urine Amount (Catheter) 850 / 850 575 / 575 Indwelling Urethral Catheter 850 / 850 575 / 575 Wound Drainage 80 / 80 55 / 55 # 2 Left Shoulder 30 / 30 30 / 30 Left Shoulder 0 / 0 0 / 0 Right Shoulder 50 / 50 25 / 25 Other: Date of Last Bowel Movement 01/27/18 01/27/18 # Bowel Movements 0 0 Narrative: Patient extubated and alert. GENERAL: Well-nourished, well-developed patient. SKIN: Warm and dry. HEAD: Normocephalic. EYES: No scleral icterus. No injection or drainage. NECK: Supple, trachea midline. No JVD or lymphadenopathy. CARDIOVASCULAR: Irregular RESPIRATORY: Breath sounds diminished at bases GASTROINTESTINAL: Abdomen soft, non-tender, nondistended. EXTREMITIES: 1+ edema shoulder draining present NEUROLOGICAL: Awake, alert, . Non-focal.. - Urinary Catheter Management Condom Cath placed during this visit: no Indwelling Urethral Catheter Cath placed during this visit: yes Reason for continuing: Hourly intake/output Insertion date: 01/20/18 Insertion time: 11:30 Assessment and Plan - Assessment (1) Acute renal failure Code(s): N17.9 - Acute kidney failure, unspecified Status: Acute (2) Atrial fibrillation Code(s): I48.91 - Unspecified atrial fibrillation Status: Acute Qualifiers: Atrial fibrillation type: unspecified Qualified Code(s): I48.91 - Unspecified atrial fibrillation (3) Sepsis Code(s): A41.9 - Sepsis, unspecified organism Status: Acute Qualifiers: Sepsis type: methicillin resistant Staphylococcus aureus Qualified Code(s) : A41.02 - Sepsis due to Methicillin resistant Staphylococcus aureus - Plan Patient is on D5W creatinine is around 2 nonoliguric Going for surgical debridement of his shoulder Continue to monitor Keep him well-hydrated Follow BMP Replace magnesium magnesium sulfate 1 g ordered
[2018-01-28] MEDS: Mag Sulf 1 gm/100 ml Premix 100 ML IV.SIG ONE ×2 (15:31→18:35)
--- NOTE | 2018-01-28 17:11 | P.PNOP ---
Subjective Interval history: Patient is resting comfortably in bed in no acute distress. The patient remains extubated and alert. Family is at bedside. I spoke with the family today regarding surgery. 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 The patient's family reports that all this plans are in agreement that surgery is necessary. It is the family's wish to proceed with planned surgery for the bilateral shoulders. Physical Exam Vital signs: Vital Signs 01/27/18 18:00 01/27/18 20:00 01/27/18 21:00 Temperature 99.1 F Pulse Rate 101 H 96 H 101 H Respiratory Rate 24 28 H 28 H Blood Pressure 124/73 136/69 112/55 L Pulse Oximetry 100 100 98 01/27/18 21:09 01/27/18 22:00 01/27/18 23:00 Temperature Pulse Rate 95 H 107 H 94 H Respiratory Rate 18 28 H 26 H Blood Pressure 108/55 L 102/59 L Pulse Oximetry 98 98 98 01/27/18 23:10 01/28/18 00:00 01/28/18 01:00 Temperature 98.6 F Pulse Rate 98 H 88 Respiratory Rate 24 24 Blood Pressure 100/68 121/64 Pulse Oximetry 100 100 100 01/28/18 01:45 01/28/18 02:00 01/28/18 03:00 Temperature Pulse Rate 79 74 Respiratory Rate 24 Blood Pressure 115/59 L 119/60 Pulse Oximetry 100 100 99 01/28/18 04:00 01/28/18 04:27 01/28/18 05:00 Temperature 98.6 F Pulse Rate 76 85 Respiratory Rate 24 24 Blood Pressure 132/63 129/64 Pulse Oximetry 99 100 100 01/28/18 06:00 01/28/18 07:00 01/28/18 08:00 Temperature 98.0 F Pulse Rate 86 91 H 91 H Respiratory Rate 24 20 21 Blood Pressure 148/69 H 152/76 H 158/122 H Pulse Oximetry 100 100 100 01/28/18 08:02 01/28/18 08:15 01/28/18 08:35 Temperature Pulse Rate 92 H Respiratory Rate 20 Blood Pressure 160/78 H Pulse Oximetry 100 99 96 01/28/18 09:00 01/28/18 09:10 01/28/18 09:17 Temperature Pulse Rate 85 83 Respiratory Rate 20 28 H 18 Blood Pressure 115/59 L Pulse Oximetry 89 L 01/28/18 10:00 01/28/18 11:00 01/28/18 11:06 Temperature 98.2 F Pulse Rate 84 85 81 Respiratory Rate 20 20 24 Blood Pressure 104/57 L 141/64 H 141/64 H Pulse Oximetry 100 99 99 01/28/18 12:00 01/28/18 13:44 Temperature 97.7 F Pulse Rate 85 Respiratory Rate 20 30 H Blood Pressure 141/75 H Pulse Oximetry 98 Intake & Output 01/27/18 01/28/18 01/28/18 18:59 06:59 18:59 Intake Total 1946.5 / 1946.5 1852 / 1852 1550 / 1550 Output Total 930 / 930 630 / 630 Balance 1016.5 / 1016.5 1222 / 1222 1550 / 1550 Weight 74.5 kg Intake: IV 1562.5 / 1562.5 1200 / 1200 1550 / 1550 D5W Inj 1,000 ML @ 20 mls/hr IV 1000 / 1000 1000 / 1000 1000 / 1000 .CONT .Q24H [facility] Rx#:[id number] Flexbumin 25% Inj 100 ML @ 60 100 / 100 100 / 100 mls/hr IV.SIG DAILY [facility] Rx#: [id number] Teflaro Inj 300 MG In NS Inj 100 / 100 100 / 100 100 / 100 100 ML @ 100 mls/hr IV.SIG Q12H [facility] Rx#:[id number] NS Inj 250 ML @ 15 mls/hr IV. 250 / 250 SIG ONCE [facility] Rx#:[id number] Vancomycin Inj 1,250 MG In NS 262.5 / 262.5 Inj 250 ML @ 250 mls/hr IV.SIG ONCE ONE Rx#:[id number] RIFADIN Inj 300 MG In NS Inj 100 / 100 100 / 100 100 / 100 100 ML @ 100 mls/hr IV.SIG Q12H [facility] Rx#:[id number] Oral 0 / 0 Oral Supplement 0 / 0 Tube Feeding 234 / 234 532 / 532 Tube Irrigant 120 / 120 Water Bolus Amount 150 / 150 Intake (Blood Product) Amt 0 / 0 Rbc As-3 Leukoreduced Unit 0 / 0 [id number] Output: Urine Amount (Catheter) 850 / 850 575 / 575 Indwelling Urethral Catheter 850 / 850 575 / 575 Wound Drainage 80 / 80 55 / 55 # 2 Left Shoulder 30 / 30 30 / 30 Left Shoulder 0 / 0 0 / 0 Right Shoulder 50 / 50 25 / 25 Other: Date of Last Bowel Movement 01/27/18 01/27/18 # Bowel Movements 0 0 Narrative: Patient extubated and alert. Patient on a nonrebreather. Right shoulder dressing is intact. Incision is well approximated with sutures intact. There is no erythema to the right shoulder. The patient does have a drain that is draining a a small amount of serosanguineous type drainage. Previous effusion has improved with drain. Patient has 2+ radial and pedal pulses. Mild swelling to the the left shoulder. Drain in place with a small amount of serosanguineous drainage. Extremities and skin are warm and dry. - Urinary Catheter Management Condom Cath placed during this visit: no Indwelling Urethral Catheter Cath placed during this visit: yes Reason for continuing: Hourly intake/output Insertion date: 01/20/18 Insertion time: 11:30 Results - Labs CBC & Chem 7: 01/28/18 06:15 01/28/18 06:15 Laboratory Results - last 24 hr 01/28/18 01/28/18 01/28/18 05:00 06:15 06:15 WBC 5.4 RBC 2.61 L Hgb 7.1 L Hct 22.0 L MCV 84.3 MCH 27.1 MCHC 32.1 RDW 20.1 H Plt Count 135 L MPV 8.8 Prelim Diff (Auto) Slide review pending Neut % (Auto) 85.7 H Lymph % (Auto) 9.1 [place] % (Auto) 3.3 Eos % (Auto) 1.4 Baso % (Auto) 0.5 Neut # (Auto) 4.6 Lymph # (Auto) 0.5 L [place] # (Auto) 0.2 Eos # (Auto) 0.1 Baso # (Auto) 0.0 WBC Differential Manual diff final Seg Neuts % (Manual) 87 H Band Neuts % (Manual) 1 Lymphocytes % (Manual) 8 L Monocytes % (Manual) 3 Myelocytes % (Man) 1 H Abs Neuts (Manual) 4.8 Differential Comment . Platelet Estimate Low L Platelet Morphology Enlarged H Basophilic Stippling Faint H Tear Drop Cells 1+ H Ovalocytes 1+ H Puncture Site Right radial Patient Temperature 98.6 O2 Saturation 94 ABG pH 7.34 L ABG pCO2 48 H ABG pO2 96 ABG HCO3 25 ABG O2 Content 9.6 L ABG Base Excess 0.2 ABG Methemoglobin 1.1 Blane Test Present Hemoglobin 7.1 L* Carboxyhemoglobin 0.3 O2 Delivery Device Bipap Vent Setting Ipap=12 epap=5 Inspired O2 35 Critical Value Yes Sodium 145 Potassium 3.9 Chloride 111 H Carbon Dioxide 28.1 Anion Gap 6 BUN 65 H Creatinine 2.00 H Estimated GFR 32 L Random Glucose 147 H Calcium 8.0 L Total Bilirubin 1.3 H AST 8 L ALT 8 L Alkaline Phosphatase 124 H Total Protein 5.2 L D Albumin 2.3 L Blood Type Antibody Screen MTS Gel Crossmatch 01/28/18 09:22 WBC RBC Hgb Hct MCV MCH MCHC RDW Plt Count MPV Prelim Diff (Auto) Neut % (Auto) Lymph % (Auto) [place] % (Auto) Eos % (Auto) Baso % (Auto) Neut # (Auto) Lymph # (Auto) [place] # (Auto) Eos # (Auto) Baso # (Auto) WBC Differential Seg Neuts % (Manual) Band Neuts % (Manual) Lymphocytes % (Manual) Monocytes % (Manual) Myelocytes % (Man) Abs Neuts (Manual) Differential Comment Platelet Estimate Platelet Morphology Basophilic Stippling Tear Drop Cells Ovalocytes Puncture Site Patient Temperature O2 Saturation ABG pH ABG pCO2 ABG pO2 ABG HCO3 ABG O2 Content ABG Base Excess ABG Methemoglobin Blane Test Hemoglobin Carboxyhemoglobin O2 Delivery Device Vent Setting Inspired O2 Critical Value Sodium Potassium Chloride Carbon Dioxide Anion Gap BUN Creatinine Estimated GFR Random Glucose Calcium Total Bilirubin AST ALT Alkaline Phosphatase Total Protein Albumin Blood Type O Positive Antibody Screen Negative MTS Gel Crossmatch See Detail Microbiology 01/25/18 10:40 Blood - Peripheral Aerobic Blood Culture - Preliminary No growth in 3 days 01/25/18 10:40 Blood - Peripheral Anaerobic Blood Culture - Preliminary No growth in 3 days 01/25/18 10:52 Blood - Peripheral Aerobic Blood Culture - Preliminary No growth in 3 days 01/25/18 10:52 Blood - Peripheral Anaerobic Blood Culture - Preliminary No growth in 3 days 01/24/18 16:30 Fluid - Other Gram Stain - Final 01/24/18 16:30 Fluid - Other Body Fluid Culture - Final S. aureus MRSA - Procedures Right shoulder consent for aspiration obtained. Time out performed. Right shoulder prepped sterilely with alcohol and betadine. Sterile gloves doned. Right shoulder aspirated and sent for gram stain, culture, crystals, and cell count. 30 cc of purulent drainage aspirated and sent to lab. sterile dressing applied. Patient tolerated procedure well. Assessment and Plan - Assessment and Plan Abscess right shoulder. 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 Surgery: I&D right shoulder, POD #12 PLAN: 1. IV antibiotics per infectious disease. Intraoperative cultures taken of the right shoulder are positive for MRSA. Cultures taken of the left supraclavicular joint also are positive for MRSA. Drain placed in the bilateral shoulders by interventional radiology. Cultures taken on January 23 and January 24 of the bilateral shoulders are positive for MRSA. 2. Source of sepsis likely from a history of previous MRSA from lumbar spine. Possible indolent infection that has developed an abscess of the bilateral shoulders. We will defer to neurosurgery and other specialists for overall management. Neurosurgery consulted and will evaluate spine for infection. 3. Improving respiratory status. Patient now on ISC, extubated and alert. Bronchoscope recently performed showing mucous plugs as well as MRSA. 4. Effusion improving with drain to right shoulder. 5. Continue drainage of left and right shoulders. Currently maintained drains due to present output. 6. Plan is to proceed with surgery for the bilateral shoulders on Saturday. The patient will be n.p.o. after midnight. The patient does not appear to be on any blood thinners for DVT prophylaxis. This should be avoided due to the planned surgery tomorrow. I discussed the plan with the patient's family today. The patient's family understands that Dr. Bernardo will talk with them tomorrow and will fill out consents. The patient's bilateral shoulders were marked for surgery and consents are on chart. It does appear that cardiology has cleared the patient for surgery. Infectious disease agrees with the plan to proceed with surgery. 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 All questions were answered today per the family.
[2018-01-28] MEDS: Melatonin 5 MG Tablet PO SCH (20:45)
[2018-01-29] MEDS: Oral Hygiene Kit OROPHARYNG SCH ×4 (01:02→17:57)
[2018-01-29] MEDS: SODIUM CHLOR 0.9% IV.SIG SCH ×2 (02:02→17:57)
[2018-01-29] MEDS: RIFAMPIN IV.SIG SCH ×2 (02:02→17:57)
[2018-01-29] MEDS: Ceftaroline Inj 300 MG in Sodium Chlor 0.9% Inj 100 ML IV.SIG SCH ×3 (03:16→16:12)
--- NOTE | 2018-01-29 04:27 | XR ---
EXAM DATE: 01/29/2018 4:15 AM EST AGE/SEX: 82 years / Male INDICATIONS: Respiratory failure. CLINICAL DATA: This is the patient's subsequent encounter. Patient reports that signs and symptoms h ave been present for 3 weeks and indicates a pain score of Nonresponsive. MEDICAL/SURGICAL HISTORY: . BPH. A-Fib. MRSA. Hypertension. Hypothyroidism. GERD. . Fusion, L umbar. Appendectomy. Cervical, unspecified. [place] [facility] [place]. . FINDINGS: A single AP view of the chest demonstrates interval worsening from the prior study. Parenchymal conso lidation is seen throughout the entire right lung. Left lung is clear. No effusions. Mild cardiomegal y remains. The endotracheal tube is been removed. Right-sided central line and nasogastric tube remai n. Orthopedic hardware noted. Catheters overlie the left supraclavicular region and right axilla. CONCLUSION: Development of diffuse consolidation throughout the right lung. Electronically signed by: Rusty Camara MD 01/29/2018 4:25 AM EST
[2018-01-29] MEDS: Levothyroxine 100 MCG Tablet PO SCH (05:16)
[2018-01-29 06:49] LABS: Calcium 8.4 mg/dL (8.5-10.1); Carbon Dioxide 26.5 meq/L (21.0-32.0); Magnesium 2.3 mg/dL (1.5-2.5); Potassium 3.6 meq/L (3.5-5.1)
[2018-01-29 06:51] LABS: Vancomycin,Random 17.2 Comment
[2018-01-29 07:06] LABS: Baso % (Auto) 0.5 % (0.0-2.0); Eos # (Auto) 0.1 th/mm3 (0.0-0.4); Eos % (Auto) 1.3 % (0.0-4.0); Hematocrit 26.2 % (39.0-51.0); Hemoglobin 8.7 gm/dL (13.0-17.0); Lymph # (Auto) 0.7 th/mm3 (1.0-4.8); Lymph % (Auto) 10.8 % (9.0-44.0); Mean Corpuscular HGB Conc 33.3 % (32.0-36.0); Mean Platelet Volume 9.1 fL (7.0-11.0); Mono # (Auto) 0.2 th/mm3 (0.0-0.9); Neut # (Auto) 5.8 th/mm3 (1.8-7.7); Neut % (Auto) 84.4 % (16.0-70.0); Platelet Count 161 th/mm3 (150-450); Red Blood Count 3.11 mil/mm3 (4.50-5.90); Red Cell Distribution Width 18.7 % (11.6-17.2); White Blood Count 6.9 th/mm3 (4.0-11.0)
[2018-01-29] MEDS: Senna/Docusate Sodium 8.6/50 MG Tablet PO SCH ×2 (08:07→20:53)
[2018-01-29] MEDS: amLODIPine 5 MG Tablet PO SCH (08:07)
[2018-01-29] MEDS: Pantoprazole Sodium 20 MG DR Tablet PO SCH (08:07)
[2018-01-29] MEDS: Chlorhexidine 0.12% Oral Kit 15 ML UDC OROPHARYNG SCH ×2 (08:08→20:53)
[2018-01-29] MEDS: Metoprolol Tartrate 25 MG Tablet PO SCH ×2 (08:08→20:53)
[2018-01-29] MEDS: Citalopram 20 MG Tablet PO SCH (08:08)
[2018-01-29 08:46] LABS: Lymphocytes 9 % (9-44); Metamyelocytes 1 % (0-1)
[2018-01-29 08:47] LABS: Platelet Estimate Normal (Normal); Platelet Morphology Normal (Normal)
--- NOTE | 2018-01-29 08:49 | P.PNNS ---
Subjective Interval history: THIS NOTE REPRESENTS MY ENCOUNTER ON 01/28/2018 DURING ROUNDS This 82-year-old gentleman was transferred emergently from the floor to the surgical intensive care unit because of rapid onset combined hypoxemic and hypercapnic respiratory failure. On arrival he has diffuse crackles throughout both lung santizo and his neck veins are distended. On admission several days ago he was dehydrated and had an element of acute kidney injury. His weight is up about 5 kg since admission though his renal function has improved. On arrival he is breathing 40 times a minute on a nonrebreathing mask with pH of 7.18 and P CO2 of 74. His acidosis is purely respiratory and associated with bronchospasm from fluid overload. B natruretic peptide is elevated to greater than 2000. Other pertinent major problems include septic joint drainage and treatment. 01/28. He is on BiPAP mask, Resting comfortably, On BIPAP overnight. Tolerating facemask during day prn. Tolerating tube feeds. Hgb 7.1 today, 1 unit PRBCs ordered. . Physical Exam Vital signs: Vital Signs 01/28/18 09:00 01/28/18 09:10 01/28/18 09:17 Temperature Pulse Rate 85 83 Respiratory Rate 20 28 H 18 Blood Pressure 115/59 L Pulse Oximetry 89 L 01/28/18 10:00 01/28/18 11:00 01/28/18 11:06 Temperature 98.2 F Pulse Rate 84 85 81 Respiratory Rate 20 20 24 Blood Pressure 104/57 L 141/64 H 141/64 H Pulse Oximetry 100 99 99 01/28/18 12:00 01/28/18 13:00 01/28/18 13:44 Temperature 97.7 F Pulse Rate 85 86 Respiratory Rate 24 30 H 30 H Blood Pressure 141/75 H 146/72 H Pulse Oximetry 98 99 01/28/18 14:00 01/28/18 15:00 01/28/18 16:00 Temperature Pulse Rate 89 90 88 Respiratory Rate 26 H 24 28 H Blood Pressure 134/73 125/76 127/63 Pulse Oximetry 99 95 100 01/28/18 17:00 01/28/18 17:11 01/28/18 18:00 Temperature Pulse Rate 93 H 93 H 97 H Respiratory Rate 26 H 28 H 30 H Blood Pressure 159/77 H 150/77 H Pulse Oximetry 100 100 100 01/28/18 19:00 01/28/18 20:00 01/28/18 21:00 Temperature 99.3 F Pulse Rate 105 H 88 95 H Respiratory Rate 32 H 34 H 36 H Blood Pressure 158/75 H 118/61 137/79 Pulse Oximetry 100 98 97 01/28/18 21:29 01/28/18 21:30 01/28/18 21:34 Temperature Pulse Rate Respiratory Rate 38 H Blood Pressure Pulse Oximetry 97 98 99 01/28/18 22:00 01/28/18 23:00 01/28/18 23:45 Temperature Pulse Rate 83 77 Respiratory Rate 28 H Blood Pressure 109/60 116/61 Pulse Oximetry 97 98 100 01/29/18 00:00 01/29/18 01:00 01/29/18 02:00 Temperature 98.8 F Pulse Rate 75 79 75 Respiratory Rate 30 H 32 H 28 H Blood Pressure 128/64 136/64 132/64 Pulse Oximetry 98 99 97 01/29/18 03:00 01/29/18 04:00 01/29/18 04:17 Temperature 97.9 F Pulse Rate 76 78 Respiratory Rate 25 H 25 H Blood Pressure 138/63 153/74 H Pulse Oximetry 97 100 99 01/29/18 05:00 01/29/18 06:00 Temperature Pulse Rate 85 78 Respiratory Rate 26 H 25 H Blood Pressure 148/78 H 154/78 H Pulse Oximetry 99 96 Intake & Output 01/28/18 01/29/18 01/29/18 18:59 06:59 18:59 Intake Total 2304 / 2304 784 / 784 Output Total 875 / 875 655 / 655 Balance 1429 / 1429 129 / 129 Weight 76.1 kg Intake: IV 1550 / 1550 200 / 200 D5W Inj 1,000 ML @ 20 mls/hr IV 1000 / 1000 .CONT .Q24H [facility] Rx#:[id number] Flexbumin 25% Inj 100 ML @ 60 100 / 100 mls/hr IV.SIG DAILY [facility] Rx#: [id number] Teflaro Inj 300 MG In NS Inj 100 / 100 100 / 100 100 ML @ 100 mls/hr IV.SIG Q12H [facility] Rx#:[id number] NS Inj 250 ML @ 15 mls/hr IV. 250 / 250 SIG ONCE [facility] Rx#:[id number] RIFADIN Inj 300 MG In NS Inj 100 / 100 100 / 100 100 ML @ 100 mls/hr IV.SIG Q12H [facility] Rx#:[id number] Tube Feeding 634 / 634 464 / 464 Tube Irrigant 120 / 120 Water Bolus Amount 120 / 120 Intake (Blood Product) Amt 0 / 0 Rbc As-3 Leukoreduced Unit 0 / 0 [id number] Output: Urine Amount (Catheter) 825 / 825 550 / 550 Indwelling Urethral Catheter 825 / 825 550 / 550 Wound Drainage 50 / 50 105 / 105 # 2 Left Shoulder 25 / 25 15 / 15 Left Shoulder 0 / 0 10 / 10 Right Shoulder 25 / 25 80 / 80 Other: Date of Last Bowel Movement 01/28/18 01/29/18 # Bowel Movements 3 2 Narrative: THIS NOTE REPRESENTS MY ENCOUNTER ON 01/28/2018 DURING ROUNDS General: Awake, alert, following commands. On BiPAP with full facemask HEENT: Neck chronically stiff consistent with age. Chest/pulm: air entry improved at right base, lung santizo uniformly clear, no wheezes or crackles. CVS: S1S2, irregular rhythm, no JVD. Improved rate control this morning. Abd: Soft, nontender, bowel sounds present. No guarding. No distention. Ext: Warm bilaterally. Bilateral drains in shoulder collections. Limbs are warm and well perfused. Drains bilaterally and shoulders Neuro: On BiPAP with full facemask. Opens eyes to soft voice and tracks with eyes. Nods head to questions. Moves arms and legs weakly. Recognizes HIS family - Urinary Catheter Management Condom Cath placed during this visit: no Indwelling Urethral Catheter Cath placed during this visit: yes Reason for continuing: Hourly intake/output Insertion date: 01/20/18 Insertion time: 11:30 Assessment and Plan - Plan THIS NOTE REPRESENTS MY ENCOUNTER ON 01/28/2018 DURING ROUNDS 82 year old male Sepsis left shoulder abscess s/p I&D left neck abscess s/p drainage remote history of lumbar fusion with suspected chronic osteomyelitis Neuro. Continue neuro checks. His nuclear medicine scan shows multiple areas of abnormal uptake Acute combined hypercapnic and hypoxemic respiratory failure -Bronchodilators -diuresed to mobilize fluid -Scott required for BPH as well as diuresis -Status post bronchoscopy with BAL on 01/22 with significant mucus plugging noted in the right-sided airways including right mainstem bronchus for which BAL was performed with significant clearing of airway. Bronchial washing sent for Gram stain and cultures. Follow-up chest x-ray post bronchoscopy showed significant improvement in aeration of right lung. -Continue mechanical ventilation, vent bundle. Added Mucomyst to mobilize secretions. -Frequent suctioning required MRSA septicemia, septic right shoulder, L spine possible osteomyelitis, left supraclavicular abscess Right shoulder effusion. septic right shoulder, s/p I&D Urinary tract infection. Left Supraclavicular abscess, CT reviewed, showed abscess extending to posterior thorax Diskitis MR L spine with poss diskitis Blood cultures positive for MRSA. 2D echocardiogram did not show any findings consistent with vegetations. Continue vancomycin, Levaquin, meropenem per ID. Patient also had a right shoulder effusion, orthopedics aspirated the shoulder - approximately 30 cc of purulent fluid. Orthopedics planning OR for drainage ob bilateral shoulder collections on 01/29 Continue IV antibiotics per infectious disease recommendations. Infectious disease following repeat blood cultures ntd Cardiothoracic surgeon was consulted for evaluation of supraclavicular mass/ poss abscess NM WBC scan 01/18/18 and 01/19/18. Patient received ativan as not able to tolerate CT imaging he was noted agitated in CT and imaging needed to be repeat. KEKE on CKD. Being diuresed, Strict I/O, monitor/ replete electrolytes, follow BUN/ Cr Nephrology following, appreciate recs. Significant fluid removal with diuresis but creatinine increased. Fluid balance appears about the right today 01/25, but mild prerenal azotemia noted Worsening prerenal azotemia Atrial Fibrillation, permanent Dr. Garner following Rate well controlled. old antihypertensives. On 01/23 ordered Levophed for pressor support to keep MAP greater than 65mm Hg however has not required pressors. Hold off on further diuresis due to rising creatinine. Start Lopressor 12 and half milligrams twice daily ANEMIA: TRANSFUSED 1u prbc Protein calorie malnutrition: very low albumin, will check prealbumin. Will add ensure with meals. Consult inside sales administrator. BPH - Continue Flomax. Endocrine: Continue to Monitor serial Acu checks and SSI as needed in detail Continue Protonix for stress ulcer prophylaxis Continue Randolph hose and SCD's for DVT prophylaxis. Lovenox Further recommendations will be provided depending on the patient's clinical evaluation and follow up studies. The exam, history, and the medical decision-making described in the above note were completed with the assistance of the mid-level provider. I reviewed and agree with the findings presented. I attest that I had a [id number] encounter with the patient on the same day, and personally performed and documented my assessment and findings in the medical record.
[2018-01-29] MEDS ORDERED: Vancomycin Inj 1,250 MG in Sodium Chlor 0.9% Inj 250 ML IV.SIG ONE (12:00)
--- NOTE | 2018-01-29 12:07 | P.PNID ---
Subjective Remarks: pt was doing well yday but overnight deteriorated resp brown He was put back on BIPAP CXR with consolidation R asnd fluid in fissure NO fever or leukocytosis plan for OR today BP stable Antibiotics: vanco teflaro rifampin Lines: Line sites with no e.o infection Past Medical History: reviewed Allergies/Adverse Reactions: Allergies amoxicillin Allergy (Severe, Verified 01/13/18 20:44) Hives Objective Vital Signs 01/28/18 12:00 01/28/18 13:00 01/28/18 13:44 Temperature 97.7 F Pulse Rate 85 86 Respiratory Rate 24 30 H 30 H Blood Pressure 141/75 H 146/72 H Pulse Oximetry 98 99 01/28/18 14:00 01/28/18 15:00 01/28/18 16:00 Temperature Pulse Rate 89 90 88 Respiratory Rate 26 H 24 28 H Blood Pressure 134/73 125/76 127/63 Pulse Oximetry 99 95 100 01/28/18 17:00 01/28/18 17:11 01/28/18 18:00 Temperature Pulse Rate 93 H 93 H 97 H Respiratory Rate 26 H 28 H 30 H Blood Pressure 159/77 H 150/77 H Pulse Oximetry 100 100 100 01/28/18 19:00 01/28/18 20:00 01/28/18 21:00 Temperature 99.3 F Pulse Rate 105 H 88 95 H Respiratory Rate 32 H 34 H 36 H Blood Pressure 158/75 H 118/61 137/79 Pulse Oximetry 100 98 97 01/28/18 21:29 01/28/18 21:30 01/28/18 21:34 Temperature Pulse Rate Respiratory Rate 38 H Blood Pressure Pulse Oximetry 97 98 99 01/28/18 22:00 01/28/18 23:00 01/28/18 23:45 Temperature Pulse Rate 83 77 Respiratory Rate 28 H Blood Pressure 109/60 116/61 Pulse Oximetry 97 98 100 01/29/18 00:00 01/29/18 01:00 01/29/18 02:00 Temperature 98.8 F Pulse Rate 75 79 75 Respiratory Rate 30 H 32 H 28 H Blood Pressure 128/64 136/64 132/64 Pulse Oximetry 98 99 97 01/29/18 03:00 01/29/18 04:00 01/29/18 04:17 Temperature 97.9 F Pulse Rate 76 78 Respiratory Rate 25 H 25 H Blood Pressure 138/63 153/74 H Pulse Oximetry 97 100 99 01/29/18 05:00 01/29/18 06:00 01/29/18 07:00 Temperature Pulse Rate 85 78 80 Respiratory Rate 26 H 25 H Blood Pressure 148/78 H 154/78 H 166/83 H Pulse Oximetry 99 96 99 01/29/18 08:00 01/29/18 08:01 01/29/18 09:00 Temperature 97.6 F Pulse Rate 87 83 86 Respiratory Rate 26 H 21 Blood Pressure 190/88 H 161/79 H 189/84 H Pulse Oximetry 100 100 99 01/29/18 09:02 01/29/18 09:05 01/29/18 10:00 Temperature Pulse Rate 85 84 80 Respiratory Rate 27 H Blood Pressure 164/81 H 137/65 Pulse Oximetry 100 100 96 Intake & Output 01/28/18 01/29/18 01/29/18 18:59 06:59 18:59 Intake Total 2304 / 2304 784 / 784 Output Total 875 / 875 655 / 655 Balance 1429 / 1429 129 / 129 Weight 76.1 kg Intake: IV 1550 / 1550 200 / 200 D5W Inj 1,000 ML @ 20 mls/hr IV 1000 / 1000 .CONT .Q24H [facility] Rx#:[id number] Flexbumin 25% Inj 100 ML @ 60 100 / 100 mls/hr IV.SIG DAILY [facility] Rx#: [id number] Teflaro Inj 300 MG In NS Inj 100 / 100 100 / 100 100 ML @ 100 mls/hr IV.SIG Q12H [facility] Rx#:[id number] NS Inj 250 ML @ 15 mls/hr IV. 250 / 250 SIG ONCE [facility] Rx#:[id number] RIFADIN Inj 300 MG In NS Inj 100 / 100 100 / 100 100 ML @ 100 mls/hr IV.SIG Q12H [facility] Rx#:[id number] Tube Feeding 634 / 634 464 / 464 Tube Irrigant 120 / 120 Water Bolus Amount 120 / 120 Intake (Blood Product) Amt 0 / 0 Rbc As-3 Leukoreduced Unit 0 / 0 [id number] Output: Urine Amount (Catheter) 825 / 825 550 / 550 Indwelling Urethral Catheter 825 / 825 550 / 550 Wound Drainage 50 / 50 105 / 105 # 2 Left Shoulder 25 / 25 15 / 15 Left Shoulder 0 / 0 10 Right Shoulder 80 / 80 Other: Date of Last Bowel Movement 01/28/18 01/29/18 01/29/18 # Bowel Movements 3 2 01/25/18 10:40 Blood - Peripheral Aerobic Blood Culture - Preliminary No growth in 4 days 01/25/18 10:40 Blood - Peripheral Anaerobic Blood Culture - Preliminary No growth in 4 days 01/25/18 10:52 Blood - Peripheral Aerobic Blood Culture - Preliminary No growth in 4 days 01/25/18 10:52 Blood - Peripheral Anaerobic Blood Culture - Preliminary No growth in 4 days 01/24/18 16:30 Fluid - Other Gram Stain - Final 01/24/18 16:30 Fluid - Other Body Fluid Culture - Final S. aureus MRSA 01/23/18 14:42 Fluid - Other Gram Stain - Final 01/23/18 14:42 Fluid - Other Body Fluid Culture - Final S. aureus MRSA Lab - Hematology Results 01/28/18 01/29/18 06:15 06:05 WBC 5.4 6.9 RBC 2.61 L 3.11 L Hgb 7.1 L 8.7 L Hct 22.0 L 26.2 L MCV 84.3 84.0 MCH 27.1 28.0 MCHC 32.1 33.3 RDW 20.1 H 18.7 H Plt Count 135 L 161 MPV 8.8 9.1 Prelim Diff (Auto) Slide review pending Slide review pending Neut % (Auto) 85.7 H 84.4 H Lymph % (Auto) 9.1 10.8 [place] % (Auto) 3.3 3.0 Eos % (Auto) 1.4 1.3 Baso % (Auto) 0.5 0.5 Neut # (Auto) 4.6 5.8 Lymph # (Auto) 0.5 L 0.7 L [place] # (Auto) 0.2 0.2 Eos # (Auto) 0.1 0.1 Baso # (Auto) 0.0 0.0 WBC Differential Manual diff final Manual diff final Seg Neuts % (Manual) 87 H 82 H Band Neuts % (Manual) 1 8 H Lymphocytes % (Manual) 8 L 9 Monocytes % (Manual) 3 Metamyelocytes % (Man) 1 Myelocytes % (Man) 1 H Abs Neuts (Manual) 4.8 6.3 Differential Comment . . Platelet Estimate Low L Normal Platelet Morphology Enlarged H Normal Basophilic Stippling Faint H Tear Drop Cells 1+ H Ovalocytes 1+ H Lab - Chemistry Results 01/28/18 01/29/18 06:15 06:05 Sodium 145 144 Potassium 3.9 3.6 Chloride 111 H 110 H Carbon Dioxide 28.1 26.5 Anion Gap 6 8 BUN 65 H 55 H Creatinine 2.00 H 1.79 H Estimated GFR 32 L 37 L Random Glucose 147 H 94 Calcium 8.0 L 8.4 L Magnesium 2.3 Total Bilirubin 1.3 H AST 8 L ALT 8 L Alkaline Phosphatase 124 H Total Protein 5.2 L D Albumin 2.3 L Imaging: ITS Impressions Abdomen/Pelvis CT 01/13/18 20:43 CONCLUSION: 1. Marked prostate enlargement. 2. Air-filled distention of sigmoid colon. 3. Cardiomegaly. Small bilateral pleural effusions. 4. Diffuse atherosclerotic disease and arterial calcification. 5. Old insufficiency type fractures of the left side of the sacrum and left- sided pubic rami. Cervical Spine MRI 01/14/18 00:00 CONCLUSION: 1. Examination is degraded by motion artifact. 2. Partial visualization of a mass involving the left supraclavicular region measuring 5.[address] scan of the soft tissues of the neck with IV contrast to further assess if the patient can't hold still for that exam. 3. Diffuse degenerative changes as detailed at each level in the above discussion. Head MRI 01/14/18 00:00 CONCLUSION: 1. No acute intracranial abnormality. 2. Encephalomalacia involving the left frontal lobe. Thoracic Spine MRI 01/14/18 00:00 CONCLUSION: 1. See the MRI of the cervical spine reported separately. 2. Orthopedic hardware at the thoracolumbar junction. 3. Patent central canal throughout. Head CT 01/14/18 00:31 CONCLUSION: 1. No acute intracranial findings. 2. 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 . Venous Doppler Study 01/14/18 09:20 CONCLUSION: 1. The study is negative for lower extremity deep venous thrombosis. Soft Tissue Neck CT 01/16/18 00:00 CONCLUSION: 1. Partially visualized fluid and gas collection deep to the left trapezius muscle in the posterior lower neck extending into the posterior thorax. Chest CT with contrast could be performed to image the remainder of the abnormality. Differential diagnosis includes abscess and hematoma. 2. Degenerative findings of the cervical spine. Chest CT 01/16/18 11:15 CONCLUSION: 1. Lobulated mass in the left supraclavicular region. It is most suggestive of a multi lobulated loculated abscess given the air within several of the masses. 2. Bibasilar areas of consolidation or atelectasis. There are mild bilateral pleural effusion. 3. There is a drain over the right shoulder region. 4. Postsurgical change at the thoracolumbar region as described above. Abscess Drainage CT 01/17/18 00:00 CONCLUSION: 1. Uncomplicated CT guided drainage, as above. WBC Scan Nuclear Medicine 01/18/18 00:00 CONCLUSION: 1. Multiple areas of abnormal uptake including at the upper lumbar spine around the upper left surgical hardware and at the L1-2 disc level. 2. Abnormal activity around the clip joints bilaterally being more prominent on the right. 3. Abnormal activity in the right C2-3 facet and the left C7-T1 facet. 4. Small area of signal abnormality in the posterior right sacroiliac joint region separate from surgical hardware. 5. All these areas are concerning for active infection. Shoulder X-Ray 01/21/18 00:00 CONCLUSION: Unusual positioning of the shoulder but I do not see any obvious displaced fracture of the shoulder. There is a healing third rib fracture and healing seventh rib fracture. Upper Extremity Ultrasound 01/22/18 00:00 CONCLUSION: 1. Lateral right shoulder subcutaneous complex fluid collection concerning for abscess. This is amenable to percutaneous drainage. Abscess Drainage Ultrasound 01/23/18 00:00 CONCLUSION: 1. Uncomplicated ultrasound-guided drainage catheter placement in complex inferolateral right shoulder fluid collection. Lumbar Spine MRI 01/23/18 00:00 CONCLUSION: Little or no change from previous exam. Nothing to suggest abscess Pelvis MRI 01/23/18 00:00 CONCLUSION: 1. Diffuse skin thickening and subcutaneous edema suggestive of cellulitis involving the left buttock without underlying abscess formation. 2. Rectosigmoid colon is distended with fecal debris suggestive of fecal impaction. Clinical correlation is recommended. 3. Markedly enlarged prostate. 4. Degenerative changes and scoliosis of the visualized lower lumbar spine are noted. 5. Bony changes involving the left sacrum likely representing old healed insufficiency fractures. Shoulder MRI 01/23/18 00:00 CONCLUSION: 1. Chronic complete rotator cuff tear. 2. Moderate joint fluid Abscess Drainage 01/24/18 15:37 CONCLUSION: 1. Uncomplicated percutaneous placement of drainage catheter in left shoulder. Chest X-Ray 01/29/18 05:00 CONCLUSION: Development of diffuse consolidation throughout the right lung. Physical Exam: GENERAL: on BIPAP awake SKIN: Warm and dry. No rash HEAD: Atraumatic. Normocephalic. EYES: Pupils equal and round. No scleral icterus. No injection or drainage. ENT: No nasal bleeding or discharge. Mucous membranes pink and moist. NECK: Trachea midline. No JVD. No palpable masses, but diffuse pain CARDIOVASCULAR: Regular rate and rhythm. nO murmurs RESPIRATORY: No accessory muscle use. decrease BS on R anteriorly to auscultation. + rhonchi b/l GASTROINTESTINAL: Abdomen soft, non-tender, mildly distended. Hepatic and splenic margins not palpable. MUSCULOSKELETAL: Extremities without clubbing, cyanosis, no edema. No obvious deformities. + R shoulder drain in place, cloudy serosang fluid + new fluctuance . Left shoulder drains x2 with serosang fluid NEUROLOGICAL: awake, follows PSYCHIATRIC: appears calm Assessment and Plan - Plan High grade staph bacteremia. MRSA 2 D echo neg R shoulder effusion , cw R shoulder septic arhtritis (MRSA)-post I&D. . 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 and infection 2 yrs ago Encephalopathy - resolved B/L septic shoulder arhtritis, MRSA, cw metastatic staph infx New PNA, RLL with acute VDRF - on NIVM High grade PNC allergy, but tolerated meropenem OK Recs: continue vancomycin cont teflaro cont Rifampin fu clx CT after intubated and post op sputum clx , endotracheal after intubated Meropenem dw family @ b/s poonam levin RN
--- NOTE | 2018-01-29 12:21 | P.PNCC ---
Subjective Subjective Remarks/Hospital Course: This 82-year-old gentleman was transferred emergently from the floor to the surgical intensive care unit because of rapid onset combined hypoxemic and hypercapnic respiratory failure. On arrival he has diffuse crackles throughout both lung santizo and his neck veins are distended. On admission several days ago he was dehydrated and had an element of acute kidney injury. His weight is up about 5 kg since admission though his renal function has improved. On arrival he is breathing 40 times a minute on a nonrebreathing mask with pH of 7.18 and P CO2 of 74. His acidosis is purely respiratory and associated with bronchospasm from fluid overload. B natruretic peptide is elevated to greater than 2000. Other pertinent major problems include septic joint drainage and treatment. 01/22: Critical care reconsulted for worsening resp status. On BIPAP with fulkl face mask. CXR with bilat infiltrates/ pulm edema. Reaccumulated rt shoulder collection. After d/w family proceeded with intubation and placed patient on [facility] ventilation. Placed central line. D/W Dr. Mani Sherman who is arranging US guided drainage/ drain placement for shoulder collection. 01/23: Remains sedated, orally intubated on mechanical ventilation. Significant diuresis with 11 L negative over the last 3 days. Awaiting left shoulder percutaneous drainage of collection by interventional radiology today. 1 unit PRBCs ordered as patient has borderline blood pressures with hemoglobin less than 8. 01/24: Sedated, arousable, orally intubated on mechanical ventilation. Tolerating tube feeds. s/p [id number] drain placement in rt shoulder fluid collection on 01/23. 01/25: He had a good trial on spontaneous breathing yesterday. Mechanical ventilation overnight. Started on spontaneous breathing trial this morning at 12/5 and volumes were small. Increased to 15/8 and volumes looked better with each breath. Still producing lots of thick secretions, dark yellow. Unable to extubate due to general weakness and inability to cough numerous secretions. FiO2 reduced to 40% and gas exchange good. Clearly improved respiratory function from yesterday. Tolerating tube feeds well, gastric residuals minimal , remains constipated and will start on milk of magnesia and. 01/26: Right lower lobe nicely reexpanded after 24 hours on APRV. FI02 reduced to 30%. More alert today, will attempt to extubate. Worsening azotemia appears to be prerenal. We will need to give some volume back. General strength and alertness has improved. 01/27: On BiPAP since last evening. Appears comfortable with 100% O2 sat. Awake and alert. On tube feeds via NG tube 01/28: Resting comfortably, On BIPAP overnight. Tolerating facemask during day prn. Tolerating tube feeds. Hgb 7.1 today, 1 unit PRBCs ordered. 01/29: Was on nasal cannula all day. Last night developed worsening respiratory status and tachypnea for which he was placed on BiPAP. Remains on BiPAP this morning and appears comfortable. Chest x-ray this morning shows haziness over right lung field with probable pulmonary edema versus infiltrate. Objective Vital Signs / I&O: Vital Signs 01/28/18 13:00 01/28/18 13:44 01/28/18 14:00 Temperature Pulse Rate 86 89 Respiratory Rate 30 H 30 H 26 H Blood Pressure 146/72 H 134/73 Pulse Oximetry 99 99 01/28/18 15:00 01/28/18 16:00 01/28/18 17:00 Temperature Pulse Rate 90 88 93 H Respiratory Rate 24 28 H 26 H Blood Pressure 125/76 127/63 Pulse Oximetry 95 100 100 01/28/18 17:11 01/28/18 18:00 01/28/18 19:00 Temperature Pulse Rate 93 H 97 H 105 H Respiratory Rate 28 H 30 H 32 H Blood Pressure 159/77 H 150/77 H 158/75 H Pulse Oximetry 100 100 100 01/28/18 20:00 01/28/18 21:00 01/28/18 21:29 Temperature 99.3 F Pulse Rate 88 95 H Respiratory Rate 34 H 36 H Blood Pressure 118/61 137/79 Pulse Oximetry 98 97 97 01/28/18 21:30 01/28/18 21:34 01/28/18 22:00 Temperature Pulse Rate 83 Respiratory Rate 38 H Blood Pressure 109/60 Pulse Oximetry 98 99 97 01/28/18 23:00 01/28/18 23:45 01/29/18 00:00 Temperature 98.8 F Pulse Rate 77 75 Respiratory Rate 28 H 30 H Blood Pressure 116/61 128/64 Pulse Oximetry 98 100 98 01/29/18 01:00 01/29/18 02:00 01/29/18 03:00 Temperature Pulse Rate 79 75 76 Respiratory Rate 32 H 28 H 25 H Blood Pressure 136/64 132/64 138/63 Pulse Oximetry 99 97 97 01/29/18 04:00 01/29/18 04:17 01/29/18 05:00 Temperature 97.9 F Pulse Rate 78 85 Respiratory Rate 25 H 26 H Blood Pressure 153/74 H 148/78 H Pulse Oximetry 100 99 99 01/29/18 06:00 01/29/18 07:00 01/29/18 08:00 Temperature 97.6 F Pulse Rate 78 80 87 Respiratory Rate 25 H 26 H Blood Pressure 154/78 H 166/83 H 190/88 H Pulse Oximetry 96 99 100 01/29/18 08:01 01/29/18 09:00 01/29/18 09:02 Temperature Pulse Rate 83 86 85 Respiratory Rate 21 Blood Pressure 161/79 H 189/84 H 164/81 H Pulse Oximetry 100 99 100 01/29/18 09:05 01/29/18 10:00 Temperature Pulse Rate 84 80 Respiratory Rate 27 H Blood Pressure 137/65 Pulse Oximetry 100 96 Intake & Output 01/28/18 01/29/18 01/29/18 18:59 06:59 18:59 Intake Total 2304 / 2304 784 / 784 Output Total 875 / 875 655 / 655 Balance 1429 / 1429 129 / 129 Weight 76.1 kg Intake: IV 1550 / 1550 200 / 200 D5W Inj 1,000 ML @ 20 mls/hr IV 1000 / 1000 .CONT .Q24H [facility] Rx#:[id number] Flexbumin 25% Inj 100 ML @ 60 100 / 100 mls/hr IV.SIG DAILY [facility] Rx#: [id number] Teflaro Inj 300 MG In NS Inj 100 / 100 100 / 100 100 ML @ 100 mls/hr IV.SIG Q12H [facility] Rx#:[id number] NS Inj 250 ML @ 15 mls/hr IV. 250 / 250 SIG ONCE [facility] Rx#:[id number] RIFADIN Inj 300 MG In NS Inj 100 / 100 100 / 100 100 ML @ 100 mls/hr IV.SIG Q12H [facility] Rx#:[id number] Tube Feeding 634 / 634 464 / 464 Tube Irrigant 120 / 120 Water Bolus Amount 120 / 120 Intake (Blood Product) Amt 0 / 0 Rbc As-3 Leukoreduced Unit 0 / 0 [id number] Output: Urine Amount (Catheter) 825 / 825 550 / 550 Indwelling Urethral Catheter 825 / 825 550 / 550 Wound Drainage 50 / 50 105 / 105 # 2 Left Shoulder 25 / 25 15 / 15 Left Shoulder 0 / 0 10 / 10 Right Shoulder 25 / 25 80 / 80 Other: Date of Last Bowel Movement 01/28/18 01/29/18 01/29/18 # Bowel Movements 3 2 Result Diagrams: 01/29/18 06:05 01/29/18 06:05 Imaging: Impressions Chest X-Ray 01/29/18 05:00 CONCLUSION: Development of diffuse consolidation throughout the right lung. Objective Remarks: General: Awake, alert, following commands. On BiPAP with full facemask HEENT: Neck chronically stiff consistent with age. Chest/pulm: air entry improved at right base, scattered rhonchi more on the right, no wheezes or crackles. CVS: S1S2, irregular rhythm, no JVD. Improved rate control this morning. Abd: Soft, nontender, bowel sounds present. No guarding. No distention. Ext: Warm bilaterally. Bilateral drains in shoulder collections. Limbs are warm and well perfused. Drains bilaterally and shoulders Neuro: On BiPAP with full facemask. Opens eyes to soft voice and tracks with eyes. Nods head to questions. Moves arms and legs weakly. Recognizes family Assessment and Plan - Assessment and Plan Plan: Assessment and Plan: Acute combined hypercapnic and hypoxemic respiratory failure Fluid overload/noncardiogenic Pulmonary edema secondary to sepsis Possible pneumonia Mucus plugging -BNP greater than 2000, improving -Bronchodilators -diuresed to mobilize fluid -Scott required for BPH as well as diuresis -intubated and placed on mech ventilation on 01/22. -Status post bronchoscopy with BAL on 01/22 with significant mucus plugging noted in the right-sided airways including right mainstem bronchus for which BAL was performed with significant clearing of airway. Bronchial washing sent for Gram stain and cultures. Follow-up chest x-ray post bronchoscopy showed significant improvement in aeration of right lung. -Continue mechanical ventilation, vent bundle. Added Mucomyst to mobilize secretions. -Frequent suctioning required -Overnight on APRV. Lung santizo clear, chest x-ray much improved, attempt extubation today 01/25. MRSA septicemia, septic right shoulder, L spine diskitis, left supraclavicular abscess sepsis Right shoulder effusion. septic right shoulder, s/p I&D Urinary tract infection. 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 Taper steroid Blood cultures positive for MRSA. 2D echocardiogram did not show any findings consistent with vegetations. Continue vancomycin, Levaquin, meropenem per ID. Patient also had a right shoulder effusion, orthopedics aspirated the shoulder - approximately 30 cc of purulent fluid. Orthopedics planning OR for drainage ob bilateral shoulder collections on 01/29 Continue IV antibiotics per infectious disease recommendations. Infectious disease following repeat blood cultures ntd Cardiothoracic surgeon was consulted for evaluation of supraclavicular mass/ poss abscess NM WBC scan 01/18/18 and 01/19/18. Patient received ativan as not able to tolerate CT imaging he was noted agitated in CT and imaging needed to be repeat. Imaging discussed with radiology Dr and it seems patient with multiple focal infections bilateral shoulders, also back at the hardware with diskitis/ osteomyelitis. Neurology, ID, hem onc ff. CTS consulted no surgical intervention required at this time. IR consulted s/p CT-guided drainage of left posterior supraclavicular/posterior chest wall abscess on 01/17/18. s/p US guided drainage of shoulder collection by IR done on 01/23 KEKE on CKD. Being diuresed, Strict I/O, monitor/ replete electrolytes, follow BUN/ Cr Nephrology following, appreciate recs. Significant fluid removal with diuresis but creatinine increased. Fluid balance appears about the right today 01/25, but mild prerenal azotemia noted Worsening prerenal azotemia, we are forced to initiate moderate hydration. We will follow BNP. CVS Atrial Fibrillation, permanent Noncardiogenic pulmonary edema Hypotension (resolved) Rate well controlled. Recent ECHO EF 65% Dr. Garner following-discussed with Dr. Garner on 01/22. We agreed with diuresing patient for noncardiogenic pulmonary edema while watching renal function/ BP. Diuretics held around 01/26 for worsening renal function and patient placed on gentle hydration. On 01/23 ordered Levophed for pressor support to keep MAP greater than 65mm Hg however has not required pressors. Hold off on further diuresis due to rising creatinine. Start Lopressor 12 and half milligrams twice daily Lasix 40 mg IV x1 dose ordered on 01/29 for positive fluid balance and worsening respiratory status. Anemia 1 unit PRBCs ordered to be transfused on 01/23, 1 unit PRBCs ordered on 01/28 to keep hemoglobin above 8 g%. No overt evidence of blood loss. Follow CBC. Protein calorie malnutrition -Inserted NGT 01/22 following intubation, Continue tube feeds and advance to goal as well tolerated. N.p.o. for shoulder surgery on 01/29 BPH - Continue Flomax. DVT prophylaxis per surgeon Access: RIJ central line placed 01/22 01/22: D/w Dr. Mani Sherman, D/W [employer] REPORTER, D/W patient's family at bedside. 01/23 D/W patient's daughter at bedside regarding current clinical status and plan of care and they voiced understanding and were agreeable with plan of care. D/W ID-Dr Tom on 01/23 01/24: Discussed with patient's family at bedside regarding current clinical status and plan of care and they voiced understanding. Discussed with ID Dr. Tom, discussed with Dr. Piña. Discussed with [employer] REPORTER. 01/25: I spoke with patient's daughter at the bedside this morning. We discussed goals for ventilator weaning and nutrition. I spoke with extensive family members later in the day. 01/26: I spoke at length with the patient's daughter this morning and will speak extensively with other family members later today. 01/27: I spoke with patient's family member at bedside regarding his respiratory status and plan of care and he voiced understanding. Will come back and update other family members later. 01/28: I updated family regarding plan of care. 01/29: Update multiple family members regarding clinical status including borderline respiratory status requiring BiPAP. Patient scheduled for surgery which was also discussed. I explained that patient will probably remain on mechanical ventilation postoperatively until improvement in respiratory status.
--- NOTE | 2018-01-29 14:39 | P.OP ---
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 Left shoulder MRSA septic arthritis. Date of procedure: 01/29/18 Procedure: Right shoulder staged arthrotomy with irrigation. Left shoulder arthrotomy with irrigation. Anesthesia: GETA Surgeon: Oumar Bernardo MD [place] Crew: LUIS Christopher The surgical procedure was assisted by my Advanced Registered Nurse Practitioner. My CORDAGE SALES REPRESENTATIVE presence was necessary throughout this case for the manipulation and positioning of the surgical extremity. My CORDAGE SALES REPRESENTATIVE was assisting me throughout the duration of this procedure. The skill set of an Advance Registered Nurse Practitioner was medically necessary to complete this procedure. During the surgical case, the surgical services asst was working at the back table and the Advance Registered Nurse Practitioner was directly assisting me. Operation and Findings: This patient was found to have a left shoulder septic arthritis with MRSA. Initially this was treated with a drain but it was the wishes of the family to move forward with a formal arthrotomy to reduce the chance of ongoing infection. Note that this patient has a recent history of a right shoulder MRSA intra-articular infection which had a formal arthrotomy already completed. Postoperatively the patient had recurrent effusion which was drained and did still show some evidence of continued MRSA infection so it was the wishes of the family to move forward with a staged arthrotomy for the right shoulder. We did discuss with the patient's daughter initially after the first surgery on the right shoulder that there was a significant chance of needing to have a staged procedure on the right shoulder because of the potential for ongoing infection because the initial infection was very severe. The patient's family understood the risks and benefits of surgical management. The risks of surgery include, but are not limited to, injury to nerves, blood vessels, bleeding, continued infection, non-healing; loss of range on motion, dysfunction or weakness of the associated joints; blood clots, pneumonia, stroke, heart attack, and . The patient was intubated after being brought to the operative theater. He was on standing antibiotics and these were held until we obtained further cultures. The bilateral shoulders were prepped and draped in usual sterile fashion. We started on the left shoulder and made standard anterior incision with dissection through the deltopectoral interval. We found significant thickening of the anterior capsule and the clavipectoral fascia. 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 about 30 cc of serosanguineous fluid which was a little more sanguinous than serous and had streaks of grayish fluid within it. We took 2 cultures of this. Overall the cartilage which was arthritic for the proximal humerus and the glenoid was intact with no definitive evidence of osteomyelitis from palpation or visualization. We then irrigated with 6 L of saline laden with gentamicin. We turned our attention to the right shoulder now and we made incision through the previous incision and bluntly dissected through the deltopectoral interval. We spread the deep tissue, performing an arthrotomy. We found only a very small amount of fluid within the joint. It was mostly serous in nature. I did not see any significant purulence. We then irrigated with 6 L of fluid laden with gentamicin. We then exchanged instruments and gloves. We placed a deep drain in each of the shoulders with the drain placed into the glenohumeral joint. We closed skin with 2-0 Monocryl followed by 3-0 nylon. Postoperative plan is to continue with the intravenous antibiotics per the infectious disease physician. We will monitor drain output with removal of drains when appropriate.
[2018-01-29] MEDS: fentaNYL 10 mcg/mL Premix Drip 2,500 MCG/250 ML BAG IV.SIG PRN (15:30)
[2018-01-29] MEDS: Propofol 1000 mg/100 ml Inj 1,000 MG/100 ML BOTTLE IV.CONT PRN ×2 (15:30→22:28)
[2018-01-29] MEDS ORDERED: fentaNYL Citrate Inj 100 MCG/2 ML Ampul ONE ×2 (15:39→15:50)
[2018-01-29] MEDS: Dextrose 5% in Water Inj 1,000 ML IV.CONT SCH (16:11)
--- NOTE | 2018-01-29 17:05 | CT ---
EXAM DATE: 01/29/2018 4:50 PM EST AGE/SEX: 82 years / Male INDICATIONS: Septic CLINICAL DATA: This is the patient's initial encounter. Patient reports that signs and symptoms have been present for 1 day and indicates a pain score of Nonresponsive. MEDICAL/SURGICAL HISTORY: Hypertension. A-fib,MRSA . back surgery RADIATION DOSE: 9.59 CTDI (mGy) COMPARISON: [facility] – [place], CT CHEST W/O CONTRAST, 01/16/2018. . TECHNIQUE: Multiple contiguous axial images were obtained through the chest without contrast. Image s were obtained in suspended respiration using multiple row detector helical technique. Using automa susan exposure control and adjustment of the mA and/or kV according to patient size, radiation dose was kept as low as reasonably achievable to obtain optimal diagnostic quality images. DICOM format imag e data is available electronically for review and comparison. FINDINGS: Lungs: There are increasing pleural effusions with consolidative changes in both lung bases. Pleural effusion on the right occupies approximately one third of the hemithorax. Pleural effusion on left o ccupies approximately one quarter of the hemithorax. Mediastinum: There is good visualization of the great vessels of the middle mediastinum. No evidenc e of mediastinal or hilar adenopathy/mass. The heart the heart is enlarged with trace pericardial eff usion moderate coronary calcifications. Bony Structures: Surgical drains are seen in both shoulders. Thoracic spine is unremarkable. Miscellaneous: The examination was extended to include the upper abdomen, and both adrenal glands ar e normal in size and configuration. CONCLUSION: 1. Interval increase in the amount of pleural effusions bilaterally. Findings have been discussed wi th Dr. Tom on today's date. Electronically signed by: Jacky Sherman MD 01/29/2018 5:04 PM EST
--- NOTE | 2018-01-29 17:32 | P.PNNP ---
Subjective Interval history: Patient had debridement of the wound right and left shoulder continue to require debridement for MRSA wound infection Patient is back on ventilator Physical Exam Vital signs: Vital Signs 01/28/18 18:00 01/28/18 19:00 01/28/18 20:00 Temperature 99.3 F Pulse Rate 97 H 105 H 88 Respiratory Rate 30 H 32 H 34 H Blood Pressure 150/77 H 158/75 H 118/61 Pulse Oximetry 100 100 98 01/28/18 21:00 01/28/18 21:29 01/28/18 21:30 Temperature Pulse Rate 95 H Respiratory Rate 36 H 38 H Blood Pressure 137/79 Pulse Oximetry 97 97 98 01/28/18 21:34 01/28/18 22:00 01/28/18 23:00 Temperature Pulse Rate 83 77 Respiratory Rate 28 H Blood Pressure 109/60 116/61 Pulse Oximetry 99 97 98 01/28/18 23:45 01/29/18 00:00 01/29/18 01:00 Temperature 98.8 F Pulse Rate 75 79 Respiratory Rate 30 H 32 H Blood Pressure 128/64 136/64 Pulse Oximetry 100 98 99 01/29/18 02:00 01/29/18 03:00 01/29/18 04:00 Temperature 97.9 F Pulse Rate 75 76 78 Respiratory Rate 28 H 25 H 25 H Blood Pressure 132/64 138/63 153/74 H Pulse Oximetry 97 97 100 01/29/18 04:17 01/29/18 05:00 01/29/18 06:00 Temperature Pulse Rate 85 78 Respiratory Rate 26 H 25 H Blood Pressure 148/78 H 154/78 H Pulse Oximetry 99 99 96 01/29/18 07:00 01/29/18 08:00 01/29/18 08:01 Temperature 97.6 F Pulse Rate 80 87 83 Respiratory Rate 26 H Blood Pressure 166/83 H 190/88 H 161/79 H Pulse Oximetry 99 100 100 01/29/18 09:00 01/29/18 09:02 01/29/18 09:05 Temperature Pulse Rate 86 85 84 Respiratory Rate 21 27 H Blood Pressure 189/84 H 164/81 H Pulse Oximetry 99 100 100 01/29/18 10:00 Temperature Pulse Rate 80 Respiratory Rate Blood Pressure 137/65 Pulse Oximetry 96 Intake & Output 01/28/18 01/29/18 01/29/18 18:59 06:59 18:59 Intake Total 2304 / 2304 784 / 784 900 / 900 Output Total 875 / 875 655 / 655 20 / 20 Balance 1429 / 1429 129 / 129 880 / 880 Weight 76.1 kg Intake: IV 1550 / 1550 200 / 200 100 / 100 D5W Inj 1,000 ML @ 20 mls/hr IV 1000 / 1000 .CONT .Q24H CHAYO Rx#:[id number] Flexbumin 25% Inj 100 ML @ 60 100 / 100 mls/hr IV.SIG DAILY CHAYO Rx#: [id number] Teflaro Inj 300 MG In NS Inj 100 / 100 100 / 100 100 / 100 100 ML @ 100 mls/hr IV.SIG Q12H CH[facility]O Rx#:[id number] NS Inj 250 ML @ 15 mls/hr IV. 250 / 250 SIG ONCE CHAYO Rx#:[id number] RIFADIN Inj 300 MG In NS Inj 100 / 100 100 / 100 100 ML @ 100 mls/hr IV.SIG Q12H CHAYO Rx#:[id number] Tube Feeding 634 / 634 464 / 464 Tube Irrigant 120 / 120 Water Bolus Amount 120 / 120 Anesthesia Amount 800 / 800 Intake (Blood Product) Amt 0 / 0 Rbc As-3 Leukoreduced Unit 0 / 0 [id number] Output: Estimated Blood Loss 20 / 20 Urine Amount (Catheter) 825 / 825 550 / 550 Indwelling Urethral Catheter 825 / 825 550 / 550 Wound Drainage 50 / 50 105 / 105 # 2 Left Shoulder 25 / 25 15 / 15 Left Shoulder 0 / 0 10 / 10 Right Shoulder 25 / 25 80 / 80 Other: Date of Last Bowel Movement 01/28/18 01/29/18 01/29/18 # Bowel Movements 3 2 Narrative: GENERAL: Well-nourished, well-developed on ventilator patient. SKIN: Warm and dry. HEAD: Normocephalic. EYES: No scleral icterus. No injection or drainage. NECK: Supple, trachea midline. No JVD or lymphadenopathy. CARDIOVASCULAR: Regular rate and rhythm without murmurs, gallops, or rubs. RESPIRATORY: Breath sounds diminished at bases GASTROINTESTINAL: Abdomen soft, non-tender, nondistended. EXTREMITIES: Bandage over her shoulders and drain in place NEUROLOGICAL: Sedated on ventilator. - Urinary Catheter Management Condom Cath placed during this visit: no Indwelling Urethral Catheter Cath placed during this visit: yes Reason for continuing: Hourly intake/output Insertion date: 01/20/18 Insertion time: 11:30 Assessment and Plan - Assessment (1) Acute renal failure Code(s): N17.9 - Acute kidney failure, unspecified Status: Acute (2) Atrial fibrillation Code(s): I48.91 - Unspecified atrial fibrillation Status: Acute Qualifiers: Atrial fibrillation type: unspecified Qualified Code(s): I48.91 - Unspecified atrial fibrillation (3) Sepsis Code(s): A41.9 - Sepsis, unspecified organism Status: Acute Qualifiers: Sepsis type: methicillin resistant Staphylococcus aureus Qualified Code(s) : A41.02 - Sepsis due to Methicillin resistant Staphylococcus aureus - Plan Patient is on D5W 20 c KVO creatinine is 1.7 nonoliguric, Lasix daily BP on Amlodipine better Going for surgical debridement of his shoulders Continue to monitor Keep him well-hydrated Patient is on the ventilator Follow BMP
[2018-01-29 18:42] LABS: ABG Base Excess -0.8 mmol/L (-2-2); ABG PCO2 38 mmHg (38-42); ABG PO2 169 mmHg (61-120)
[2018-01-29] MEDS: Melatonin 5 MG Tablet PO SCH (20:53)
[2018-01-30] MEDS: Oral Hygiene Kit OROPHARYNG SCH ×4 (00:36→18:35)
[2018-01-30] MEDS: Ceftaroline Inj 300 MG in Sodium Chlor 0.9% Inj 100 ML IV.SIG SCH ×2 (02:56→18:39)
[2018-01-30] MEDS: RIFAMPIN IV.SIG SCH ×2 (04:10→18:39)
[2018-01-30] MEDS: SODIUM CHLOR 0.9% IV.SIG SCH ×2 (04:10→18:39)
[2018-01-30 04:46] LABS: Baso % (Auto) 0.3 % (0.0-2.0); Eos # (Auto) 0.1 th/mm3 (0.0-0.4); Hematocrit 25.3 % (39.0-51.0); Hemoglobin 8.2 gm/dL (13.0-17.0); Lymph # (Auto) 0.6 th/mm3 (1.0-4.8); Lymph % (Auto) 8.1 % (9.0-44.0); Mean Corpuscular HGB Conc 32.5 % (32.0-36.0); Mean Corpuscular Hemoglobin 27.5 pg (27.0-34.0); Mean Corpuscular Volume 84.5 fL (80.0-100.0); Mean Platelet Volume 8.7 fL (7.0-11.0); Mono # (Auto) 0.2 th/mm3 (0.0-0.9); Mono % (Auto) 2.7 % (0.0-8.0); Neut % (Auto) 87.9 % (16.0-70.0); Platelet Count 174 th/mm3 (150-450); Red Cell Distribution Width 18.9 % (11.6-17.2)
[2018-01-30 05:10] LABS: Calcium 8.4 mg/dL (8.5-10.1); Carbon Dioxide 24.3 meq/L (21.0-32.0); Magnesium 2.2 mg/dL (1.5-2.5); Potassium 3.5 meq/L (3.5-5.1)
[2018-01-30] MEDS: Levothyroxine 100 MCG Tablet PO SCH (06:09)
--- NOTE | 2018-01-30 07:18 | P.PNOP ---
Subjective Interval history: The patient is intubated and sedated and resting comfortably in bed in no apparent distress. Family is at bedside. Physical Exam Vital signs: Vital Signs 01/29/18 08:00 01/29/18 08:01 01/29/18 09:00 Temperature 97.6 F Pulse Rate 87 83 86 Respiratory Rate 26 H 21 Blood Pressure 190/88 H 161/79 H 189/84 H Pulse Oximetry 100 100 99 01/29/18 09:02 01/29/18 09:05 01/29/18 10:00 Temperature Pulse Rate 85 84 80 Respiratory Rate 27 H Blood Pressure 164/81 H 137/65 Pulse Oximetry 100 100 96 01/29/18 11:00 01/29/18 12:00 01/29/18 15:15 Temperature Pulse Rate 82 78 Respiratory Rate Blood Pressure 126/58 L 138/75 Pulse Oximetry 98 100 100 01/29/18 15:32 01/29/18 15:46 01/29/18 16:00 Temperature 98.6 F Pulse Rate 89 83 79 Respiratory Rate Blood Pressure 198/112 H 143/62 H 147/76 H Pulse Oximetry 100 100 01/29/18 16:03 01/29/18 16:20 01/29/18 16:26 Temperature Pulse Rate 80 80 Respiratory Rate Blood Pressure 147/76 H 119/63 Pulse Oximetry 100 98 100 01/29/18 16:33 01/29/18 17:00 01/29/18 17:04 Temperature Pulse Rate 82 84 79 Respiratory Rate Blood Pressure 113/57 L 89/52 L Pulse Oximetry 100 99 99 01/29/18 17:18 01/29/18 17:33 01/29/18 18:00 Temperature 98.8 F Pulse Rate 87 81 77 Respiratory Rate 14 Blood Pressure 166/93 H 168/77 H Pulse Oximetry 98 99 99 01/29/18 18:03 01/29/18 18:18 01/29/18 18:33 Temperature Pulse Rate 78 83 Respiratory Rate 18 Blood Pressure 188/85 H 152/76 H Pulse Oximetry 99 99 99 01/29/18 19:00 01/29/18 19:03 01/29/18 19:33 Temperature Pulse Rate 77 76 78 Respiratory Rate Blood Pressure 155/77 H 163/75 H Pulse Oximetry 99 99 99 01/29/18 20:00 01/29/18 20:03 01/29/18 20:33 Temperature 99.3 F Pulse Rate 81 80 79 Respiratory Rate Blood Pressure 165/77 H 149/80 H Pulse Oximetry 97 99 99 01/29/18 21:00 01/29/18 21:03 01/29/18 21:23 Temperature Pulse Rate 80 79 Respiratory Rate 14 Blood Pressure 142/65 H Pulse Oximetry 99 99 97 01/29/18 21:33 01/29/18 22:00 01/29/18 22:03 Temperature Pulse Rate 83 75 77 Respiratory Rate Blood Pressure 95/52 L 96/58 L Pulse Oximetry 97 98 98 01/29/18 22:33 01/29/18 23:00 01/29/18 23:03 Temperature Pulse Rate 80 74 73 Respiratory Rate Blood Pressure 120/69 146/68 H Pulse Oximetry 100 100 100 01/29/18 23:33 01/30/18 00:00 01/30/18 00:03 Temperature 99.1 F Pulse Rate 75 75 77 Respiratory Rate Blood Pressure 118/64 99/55 L Pulse Oximetry 100 99 98 01/30/18 00:24 01/30/18 00:33 01/30/18 00:41 Temperature Pulse Rate 77 77 Respiratory Rate 14 Blood Pressure 85/58 L 106/54 L Pulse Oximetry 100 99 98 01/30/18 01:00 01/30/18 01:03 01/30/18 01:33 Temperature Pulse Rate 74 72 76 Respiratory Rate Blood Pressure 125/59 L 131/59 L Pulse Oximetry 100 100 100 01/30/18 02:00 01/30/18 02:03 01/30/18 02:33 Temperature Pulse Rate 74 75 76 Respiratory Rate Blood Pressure 123/60 112/59 L Pulse Oximetry 99 99 99 01/30/18 03:00 01/30/18 03:03 01/30/18 03:33 Temperature Pulse Rate 75 72 72 Respiratory Rate Blood Pressure 112/58 L 112/61 Pulse Oximetry 98 99 98 01/30/18 04:00 01/30/18 04:03 01/30/18 04:22 Temperature 99.5 F Pulse Rate 76 73 Respiratory Rate 14 Blood Pressure 125/78 125/78 Pulse Oximetry 98 99 98 01/30/18 04:33 01/30/18 05:00 01/30/18 05:03 Temperature Pulse Rate 73 74 74 Respiratory Rate Blood Pressure 116/59 L 131/64 Pulse Oximetry 98 99 99 01/30/18 05:33 01/30/18 06:00 01/30/18 06:03 Temperature Pulse Rate 74 74 76 Respiratory Rate Blood Pressure 119/55 L 126/59 L Pulse Oximetry 98 99 99 Intake & Output 01/29/18 01/30/18 01/30/18 18:59 06:59 18:59 Intake Total 1322.5 / 1322.5 420 / 420 Output Total 1310 / 1310 500 / 500 Balance 12.5 / .5 -80 / -80 Weight 78.1 kg Intake: IV 462.5 / 462.5 300 / 300 Diprivan 1000 mg/100 ml Inj 1, 100 / 100 000 mg In 100 ml @ 5 MCG/KG/MIN 2.082 mls/hr IV.CONT TITRATE PRN Rx#:[id number] Teflaro Inj 300 MG In NS Inj 100 / 100 100 / 100 100 ML @ 100 mls/hr IV.SIG Q12H [facility]AYO Rx#:[id number] Vancomycin Inj 1,250 MG In NS 262.5 / 262.5 Inj 250 ML @ 250 mls/hr IV.SIG ONCE ONE Rx#:[id number] RIFADIN Inj 300 MG In NS Inj 100 / 100 100 / 100 100 ML @ 100 mls/hr IV.SIG Q12H CHAYO Rx#:[id number] Tube Feeding 0 / 0 Tube Irrigant 60 / 60 120 / 120 Anesthesia Amount 800 / 800 Output: Estimated Blood Loss 20 / 20 Urine Amount (Catheter) 1250 / 1250 475 / 475 Indwelling Urethral Catheter 1250 / 1250 475 / 475 Wound Drainage 40 / 40 25 / 25 # 2 Left Shoulder 10 / 10 Left Shoulder 20 / 20 Right Shoulder 20 / 20 15 / 15 Other: Date of Last Bowel Movement 01/29/18 01/29/18 # Bowel Movements 0 Narrative: Patient intubated and sedated on ventilator. Right and left shoulder dressing is clean, dry, and intact. Bilateral drains are intact with small to moderate serosanguineous drainage. There is no erythema to the right shoulder. Patient has 2+ radial and pedal pulses. Extremities and skin are warm and dry. - Urinary Catheter Management Condom Cath placed during this visit: no Indwelling Urethral Catheter Cath placed during this visit: yes Reason for continuing: Hourly intake/output Insertion date: 01/20/18 Insertion time: 11:30 Results - Labs CBC & Chem 7: 01/30/18 04:20 01/30/18 04:20 Laboratory Results - last 24 hr 01/29/18 01/29/18 01/30/18 06:05 18:30 04:20 WBC 6.9 RBC 3.11 L Hgb 8.7 L Hct 26.2 L MCV 84.0 MCH 28.0 MCHC 33.3 RDW 18.7 H Plt Count 161 MPV 9.1 Prelim Diff (Auto) Slide review pending Neut % (Auto) 84.4 H Lymph % (Auto) 10.8 [place] % (Auto) 3.0 Eos % (Auto) 1.3 Baso % (Auto) 0.5 Neut # (Auto) 5.8 Lymph # (Auto) 0.7 L [place] # (Auto) 0.2 Eos # (Auto) 0.1 Baso # (Auto) 0.0 WBC Differential Manual diff final Seg Neuts % (Manual) 82 H Band Neuts % (Manual) 8 H Lymphocytes % (Manual) 9 Metamyelocytes % (Man) 1 Abs Neuts (Manual) 6.3 Differential Comment . Platelet Estimate Normal Platelet Morphology Normal Puncture Site Art line Patient Temperature 98.6 O2 Saturation 96 ABG pH 7.40 ABG pCO2 38 ABG pO2 169 H ABG HCO3 23 ABG O2 Content 12.6 ABG Base Excess -0.8 ABG Methemoglobin 1.0 Hemoglobin 9.0 L Carboxyhemoglobin 0.6 O2 Delivery Device Ventilator Vent Setting [id number] Inspired O2 50 Critical Value No Sodium 142 Potassium 3.5 Chloride 109 H Carbon Dioxide 24.3 Anion Gap 9 BUN 52 H Creatinine 1.74 H Estimated GFR 38 L Random Glucose 83 Calcium 8.4 L Magnesium 2.2 01/30/18 04:20 WBC 8.0 RBC 3.00 L Hgb 8.2 L Hct 25.3 L MCV 84.5 MCH 27.5 MCHC 32.5 RDW 18.9 H Plt Count 174 MPV 8.7 Prelim Diff (Auto) Slide review pending Neut % (Auto) 87.9 H Lymph % (Auto) 8.1 L [place] % (Auto) 2.7 Eos % (Auto) 1.0 Baso % (Auto) 0.3 Neut # (Auto) 7.0 Lymph # (Auto) 0.6 L [place] # (Auto) 0.2 Eos # (Auto) 0.1 Baso # (Auto) 0.0 WBC Differential Seg Neuts % (Manual) Band Neuts % (Manual) Lymphocytes % (Manual) Metamyelocytes % (Man) Abs Neuts (Manual) Differential Comment . Platelet Estimate Platelet Morphology Puncture Site Patient Temperature O2 Saturation ABG pH ABG pCO2 ABG pO2 ABG HCO3 ABG O2 Content ABG Base Excess ABG Methemoglobin Hemoglobin Carboxyhemoglobin O2 Delivery Device Vent Setting Inspired O2 Critical Value Sodium Potassium Chloride Carbon Dioxide Anion Gap BUN Creatinine Estimated GFR Random Glucose Calcium Magnesium Microbiology 01/15/18 18:25 Wound - Shoulder Fungal Smear - Final No fungal elements seen 01/15/18 18:25 Wound - Shoulder Fungal Culture - Preliminary No growth in 2 weeks 01/15/18 18:25 Wound - Shoulder Acid Fast Bacilli Smear - Final No acid fast bacilli seen 01/15/18 18:25 Wound - Shoulder Mycobacterial Culture - Preliminary No growth in 2 weeks 01/15/18 18:25 Wound - Shoulder Fungal Smear - Final No fungal elements seen 01/15/18 18:25 Wound - Shoulder Fungal Culture - Preliminary No growth in 2 weeks 01/15/18 18:25 Wound - Shoulder Acid Fast Bacilli Smear - Final No acid fast bacilli seen 01/15/18 18:25 Wound - Shoulder Mycobacterial Culture - Preliminary No growth in 2 weeks 01/25/18 10:40 Blood - Peripheral Aerobic Blood Culture - Preliminary No growth in 4 days 01/25/18 10:40 Blood - Peripheral Anaerobic Blood Culture - Preliminary No growth in 4 days 01/25/18 10:52 Blood - Peripheral Aerobic Blood Culture - Preliminary No growth in 4 days 01/25/18 10:52 Blood - Peripheral Anaerobic Blood Culture - Preliminary No growth in 4 days - Imaging Impressions Chest CT 01/29/18 15:28 CONCLUSION: 1. Interval increase in the amount of pleural effusions bilaterally. Findings have been discussed with Dr. Tom on today's date. Assessment and Plan - Assessment and Plan Abscess right shoulder. 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 Surgery: Right shoulder arthrotomy with irrigation and drain placement Left shoulder arthrotomy with irrigation and drain placement PLAN: 1. IV antibiotics per infectious disease. Intraoperative cultures taken of both shoulders. Previous cultures show MRSA. We are awaiting current intraoperative culture results. 2. Source of sepsis likely from a history of previous MRSA from lumbar spine. Possible indolent infection that has developed an abscess of the bilateral shoulders. We will defer to neurosurgery and other specialists for overall management of lumbar spine. Current plan is to remain conservative and forego removal of hardware from the lumbar spine which is likely the source of his ongoing infection. 3. Recent bronchoscope performed showing mucous plugs as well as MRSA. Patient reintubated for surgery and remains on ventilator at this time. 4. Maintain dressings and drains. Drains will be pulled when overall output is minimal. 5. Surgery for the bilateral shoulders went well. Findings during surgery shows overall improvement, particularly with the right shoulder. 6. Ortho will continue to follow.
[2018-01-30 07:29] LABS: Lymphocytes 8 % (9-44); Monocytes 2 % (0-8)
[2018-01-30 07:30] LABS: Platelet Estimate Normal (Normal); Platelet Morphology Normal (Normal)
--- NOTE | 2018-01-30 07:45 | XR ---
EXAM DATE: 01/30/2018 7:39 AM EST AGE/SEX: 82 years / Male INDICATIONS: Respiratory failure CLINICAL DATA: This is the patient's subsequent encounter. Patient reports that signs and symptoms h ave been present for 4 - 6 days and indicates a pain score of Nonresponsive. MEDICAL/SURGICAL HISTORY: . BPH. A-Fib. MRSA. Hypertension. Hypothyroidism. GERD. . . . Fusi on, Lumbar. Appendectomy. Cervical, unspecified COMPARISON: [facility] [place], CT CHEST W/O CONTRAST, 01/29/2018. [facility] [place], CHEST 1V SINGLE AP, 01/29/2018. . FINDINGS: Portable AP view of the chest demonstrates cardiac silhouette size at the upper limits for normal. ET T, nasogastric tube, and right IJ central line remain present and multiple EKG lines overlie the frantz ent. There are moderate-sized bibasilar pleural-parenchymal opacities with interstitial opacities kevin aterally. No pneumothorax is identified. Bones and soft tissues demonstrate no significant change. CONCLUSION: Stable chest x-ray with bibasilar pleural-parenchymal opacities representing pleural effusions with a ssociated compressive atelectasis and airspace consolidation. Electronically signed by: Misbah Horne MD 01/30/2018 7:44 AM EST
--- NOTE | 2018-01-30 07:51 | P.PNADD ---
Addendum to Inpatient Note Additional information: CT findings were dw Dr Morales He is planning bedside drainage of R pleural effusion
[2018-01-30] MEDS: Chlorhexidine 0.12% Oral Kit 15 ML UDC OROPHARYNG SCH ×2 (08:15→20:11)
[2018-01-30] MEDS: Pantoprazole Sodium 20 MG DR Tablet PO SCH (09:44)
[2018-01-30] MEDS: Citalopram 20 MG Tablet PO SCH (09:44)
[2018-01-30] MEDS: Senna/Docusate Sodium 8.6/50 MG Tablet PO SCH ×2 (09:44→20:10)
[2018-01-30] MEDS: Metoprolol Tartrate 25 MG Tablet PO SCH ×3 (09:45→20:10)
[2018-01-30] MEDS: amLODIPine 5 MG Tablet PO SCH ×2 (09:45→10:40)
[2018-01-30] MEDS: Propofol 1000 mg/100 ml Inj 1,000 MG/100 ML BOTTLE IV.CONT PRN ×2 (10:04→20:09)
--- NOTE | 2018-01-30 12:46 | P.PNCC ---
Subjective Subjective Remarks/Hospital Course: This 82-year-old gentleman was transferred emergently from the floor to the surgical intensive care unit because of rapid onset combined hypoxemic and hypercapnic respiratory failure. On arrival he has diffuse crackles throughout both lung santizo and his neck veins are distended. On admission several days ago he was dehydrated and had an element of acute kidney injury. His weight is up about 5 kg since admission though his renal function has improved. On arrival he is breathing 40 times a minute on a nonrebreathing mask with pH of 7.18 and P CO2 of 74. His acidosis is purely respiratory and associated with bronchospasm from fluid overload. B natruretic peptide is elevated to greater than 2000. Other pertinent major problems include septic joint drainage and treatment. 01/22: Critical care reconsulted for worsening resp status. On BIPAP with fulkl face mask. CXR with bilat infiltrates/ pulm edema. Reaccumulated rt shoulder collection. After d/w family proceeded with intubation and placed patient on [facility] ventilation. Placed central line. D/W Dr. Mani Sherman who is arranging US guided drainage/ drain placement for shoulder collection. 01/23: Remains sedated, orally intubated on mechanical ventilation. Significant diuresis with 11 L negative over the last 3 days. Awaiting left shoulder percutaneous drainage of collection by interventional radiology today. 1 unit PRBCs ordered as patient has borderline blood pressures with hemoglobin less than 8. 01/24: Sedated, arousable, orally intubated on mechanical ventilation. Tolerating tube feeds. s/p [id number] drain placement in rt shoulder fluid collection on 01/23. 01/25: He had a good trial on spontaneous breathing yesterday. Mechanical ventilation overnight. Started on spontaneous breathing trial this morning at 12/5 and volumes were small. Increased to 15/8 and volumes looked better with each breath. Still producing lots of thick secretions, dark yellow. Unable to extubate due to general weakness and inability to cough numerous secretions. FiO2 reduced to 40% and gas exchange good. Clearly improved respiratory function from yesterday. Tolerating tube feeds well, gastric residuals minimal , remains constipated and will start on milk of magnesia and. 01/26: Right lower lobe nicely reexpanded after 24 hours on APRV. FI02 reduced to 30%. More alert today, will attempt to extubate. Worsening azotemia appears to be prerenal. We will need to give some volume back. General strength and alertness has improved. 01/27: On BiPAP since last evening. Appears comfortable with 100% O2 sat. Awake and alert. On tube feeds via NG tube 01/28: Resting comfortably, On BIPAP overnight. Tolerating facemask during day prn. Tolerating tube feeds. Hgb 7.1 today, 1 unit PRBCs ordered. 01/29: Was on nasal cannula all day. Last night developed worsening respiratory status and tachypnea for which he was placed on BiPAP. Remains on BiPAP this morning and appears comfortable. Chest x-ray this morning shows haziness over right lung field with probable pulmonary edema versus infiltrate. 01/30: Surgery yesterday for bilateral shoulder collections under general anesthesia, tolerated procedure well was subsequently transferred back to the ICU and kept orally intubated on mechanical ventilation overnight. CT chest done yesterday revealed bilateral pleural effusions right greater than left for which CT- guided thoracentesis with pigtail catheter placement being scheduled with IR. Objective Vital Signs / I&O: Vital Signs 01/29/18 15:15 01/29/18 15:32 01/29/18 15:46 Temperature Pulse Rate 89 83 Respiratory Rate Blood Pressure 198/112 H 143/62 H Pulse Oximetry 100 100 01/29/18 16:00 01/29/18 16:03 01/29/18 16:20 Temperature 98.6 F Pulse Rate 79 80 Respiratory Rate Blood Pressure 147/76 H 147/76 H Pulse Oximetry 100 100 98 01/29/18 16:26 01/29/18 16:33 01/29/18 17:00 Temperature Pulse Rate 80 82 84 Respiratory Rate Blood Pressure 119/63 113/57 L Pulse Oximetry 100 100 99 01/29/18 17:04 01/29/18 17:18 01/29/18 17:33 Temperature Pulse Rate 79 87 81 Respiratory Rate Blood Pressure 89/52 L 166/93 H 168/77 H Pulse Oximetry 99 98 99 01/29/18 18:00 01/29/18 18:03 01/29/18 18:18 Temperature 98.8 F Pulse Rate 77 78 Respiratory Rate 14 18 Blood Pressure 188/85 H Pulse Oximetry 99 99 99 01/29/18 18:33 01/29/18 19:00 01/29/18 19:03 Temperature Pulse Rate 83 77 76 Respiratory Rate Blood Pressure 152/76 H 155/77 H Pulse Oximetry 99 99 99 01/29/18 19:33 01/29/18 20:00 01/29/18 20:03 Temperature 99.3 F Pulse Rate 78 81 80 Respiratory Rate Blood Pressure 163/75 H 165/77 H Pulse Oximetry 99 97 99 01/29/18 20:33 01/29/18 21:00 01/29/18 21:03 Temperature Pulse Rate 79 80 79 Respiratory Rate Blood Pressure 149/80 H 142/65 H Pulse Oximetry 99 99 99 01/29/18 21:23 01/29/18 21:33 01/29/18 22:00 Temperature Pulse Rate 83 75 Respiratory Rate 14 Blood Pressure 95/52 L Pulse Oximetry 97 97 98 01/29/18 22:03 01/29/18 22:33 01/29/18 23:00 Temperature Pulse Rate 77 80 74 Respiratory Rate Blood Pressure 96/58 L 120/69 Pulse Oximetry 98 100 100 01/29/18 23:03 01/29/18 23:33 01/30/18 00:00 Temperature 99.1 F Pulse Rate 73 75 75 Respiratory Rate Blood Pressure 146/68 H 118/64 Pulse Oximetry 100 100 99 01/30/18 00:03 01/30/18 00:24 01/30/18 00:33 Temperature Pulse Rate 77 77 Respiratory Rate 14 Blood Pressure 99/55 L 85/58 L Pulse Oximetry 98 100 99 01/30/18 00:41 01/30/18 01:00 01/30/18 01:03 Temperature Pulse Rate 77 74 72 Respiratory Rate Blood Pressure 106/54 L 125/59 L Pulse Oximetry 98 100 100 01/30/18 01:33 01/30/18 02:00 01/30/18 02:03 Temperature Pulse Rate 76 74 75 Respiratory Rate Blood Pressure 131/59 L 123/60 Pulse Oximetry 100 99 99 01/30/18 02:33 01/30/18 03:00 01/30/18 03:03 Temperature Pulse Rate 76 75 72 Respiratory Rate Blood Pressure 112/59 L 112/58 L Pulse Oximetry 99 98 99 01/30/18 03:33 01/30/18 04:00 01/30/18 04:03 Temperature 99.5 F Pulse Rate 72 76 73 Respiratory Rate Blood Pressure 112/61 125/78 125/78 Pulse Oximetry 98 98 99 01/30/18 04:22 01/30/18 04:33 01/30/18 05:00 Temperature Pulse Rate 73 74 Respiratory Rate 14 Blood Pressure 116/59 L Pulse Oximetry 98 98 99 01/30/18 05:03 01/30/18 05:33 01/30/18 06:00 Temperature Pulse Rate 74 74 74 Respiratory Rate Blood Pressure 131/64 119/55 L Pulse Oximetry 99 98 99 01/30/18 06:03 01/30/18 06:33 01/30/18 07:00 Temperature 98.8 F Pulse Rate 76 80 81 Respiratory Rate Blood Pressure 126/59 L 150/79 H Pulse Oximetry 99 99 99 01/30/18 07:03 01/30/18 07:33 01/30/18 07:47 Temperature Pulse Rate 78 79 81 Respiratory Rate 14 Blood Pressure 143/67 H 141/65 H Pulse Oximetry 99 99 98 01/30/18 08:00 01/30/18 08:03 01/30/18 08:33 Temperature 98.8 F Pulse Rate 81 77 81 Respiratory Rate Blood Pressure 140/75 154/67 H Pulse Oximetry 100 100 99 01/30/18 09:00 01/30/18 09:03 01/30/18 09:33 Temperature Pulse Rate 82 80 78 Respiratory Rate Blood Pressure 105/57 L 95/50 L Pulse Oximetry 98 98 98 01/30/18 10:00 01/30/18 10:03 01/30/18 10:33 Temperature Pulse Rate 77 80 78 Respiratory Rate Blood Pressure 133/62 149/71 H Pulse Oximetry 99 99 99 01/30/18 11:00 01/30/18 11:03 01/30/18 11:33 Temperature Pulse Rate 77 77 72 Respiratory Rate Blood Pressure 146/70 H 106/58 L Pulse Oximetry 99 99 98 01/30/18 11:44 Temperature Pulse Rate Respiratory Rate 14 Blood Pressure Pulse Oximetry 99 Intake & Output 01/29/18 01/30/18 01/30/18 18:59 06:59 18:59 Intake Total 1322.5 / 1322.5 420 / 420 100 / 100 Output Total 1310 / 1310 500 / 500 Balance 12.5 / 12.5 -80 / -80 100 / 100 Weight 78.1 kg Intake: IV 462.5 / 462.5 300 / 300 100 / 100 Diprivan 1000 mg/100 ml Inj 1, 100 / 100 100 / 100 000 mg In 100 ml @ 5 MCG/KG/MIN 2.082 mls/hr IV.CONT TITRATE PRN Rx#:[id number] Teflaro Inj 300 MG In NS Inj 100 / 100 100 / 100 100 ML @ 100 mls/hr IV.SIG Q12H [facility] Rx#:[id number] Vancomycin Inj 1,250 MG In NS 262.5 / 262.5 Inj 250 ML @ 250 mls/hr IV.SIG ONCE ONE Rx#:[id number] RIFADIN Inj 300 MG In NS Inj 100 / 100 100 / 100 100 ML @ 100 mls/hr IV.SIG Q12H [facility] Rx#:[id number] Tube Feeding 0 / 0 Tube Irrigant 60 / 60 120 / 120 Anesthesia Amount 800 / 800 Output: Estimated Blood Loss 20 / 20 Urine Amount (Catheter) 1250 / 1250 475 / 475 Indwelling Urethral Catheter 1250 / 1250 475 / 475 Wound Drainage 40 / 40 25 / 25 # 2 Left Shoulder 10 / 10 Left Shoulder 20 / 20 Right Shoulder 20 / 20 15 / 15 Other: Date of Last Bowel Movement 01/29/18 01/29/18 01/29/18 # Bowel Movements 0 Result Diagrams: 01/30/18 04:20 01/30/18 04:20 Objective Remarks: General: Sedated, arousable, orally intubated on mechanical ventilation HEENT: Positive pallor, no icterus, oral intubated Neck : Right IJ central line in place Chest/pulm: Orally intubated on mechanical ventilation, air entry decreased bilaterally at bases, scattered rhonchi, no wheezing CVS: S1S2, irregular rhythm Abd: Soft, nontender, bowel sounds present. No guarding. No distention. Ext: Warm bilaterally. Dressing over bilateral shoulder surgical site clean dry and intact. ZOEY drains in place. Trace peripheral edema Neuro: Sedated, easily arousable, orally intubated on mechanical ventilation opens eyes to soft voice and tracks with eyes. Grossly nonfocal Assessment and Plan - Assessment and Plan Plan: Assessment and Plan: Acute combined hypercapnic and hypoxemic respiratory failure Fluid overload/noncardiogenic Pulmonary edema secondary to sepsis MRSA pneumonia Mucus plugging -BNP elevated -Bronchodilators -diuresed to mobilize fluid -Scott required for BPH as well as diuresis -intubated and placed on mech ventilation on 01/22. -Status post bronchoscopy with BAL on 01/22 with significant mucus plugging noted in the right-sided airways including right mainstem bronchus for which BAL was performed with significant clearing of airway. Bronchial washing sent for Gram stain and cultures. Follow-up chest x-ray post bronchoscopy showed significant improvement in aeration of right lung. -Continue mechanical ventilation, vent bundle. Added Mucomyst to mobilize secretions. -Frequent suctioning required -Overnight on APRV. Lung santizo clear, chest x-ray much improved, extubated . -Required BiPAP on 01/29 and was intubated for bilateral shoulder surgery and remains on mechanical ventilation since 01/[address] chest with bilateral effusions for which scheduled for CT-guided right-sided thoracentesis/pigtail catheter placement with IR after discussion with Dr. Tom. -May need Bronchoscopy after rt thoracentesis depending on CXR review. -Consulted Dr. Jacky Macias for pulmonary per family request. MRSA septicemia, septic right shoulder, L spine diskitis, left supraclavicular abscess sepsis Right shoulder effusion. septic right shoulder, s/p I&D Urinary tract infection. 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 Taper steroid Blood cultures positive for MRSA. 2D echocardiogram did not show any findings consistent with vegetations. Patient also had a right shoulder effusion, orthopedics aspirated the shoulder - approximately 30 cc of purulent fluid. Orthopedics performed surgery/drainage of bilateral shoulder collections on 01/29 Continue IV antibiotics per infectious disease recommendations. Infectious disease following NM WBC scan 01/18/18 and 01/19/18. Imaging discussed with radiology and it seems patient with multiple focal infections bilateral shoulders, also back at the hardware with diskitis/ osteomyelitis. Neurology, ID, hem onc ff. IR consulted s/p CT-guided drainage of left posterior supraclavicular/posterior chest wall abscess on 01/17/18. s/p US guided drainage of shoulder collection by IR done on 01/23 KEKE on CKD. diuresed, Strict I/O, monitor/ replete electrolytes, follow BUN/ Cr Nephrology following, appreciate recs. Significant fluid removal with diuresis but creatinine increased. prerenal azotemia noted Worsening prerenal azotemia, we were forced to initiate moderate hydration. however in v/o bilateral effusions on CT done on 01/29, resuming lasix to attempt mobilizing fluis CVS Atrial Fibrillation, permanent Noncardiogenic pulmonary edema Hypotension (resolved) Rate well controlled. Recent ECHO EF 65% Dr. Garner following-discussed with Dr. Garner on 01/22. We agreed with diuresing patient for noncardiogenic pulmonary edema while watching renal function/ BP. Diuretics held around 01/26 for worsening renal function and patient placed on gentle hydration. On 01/23 ordered Levophed for pressor support to keep MAP greater than 65mm Hg however has not required pressors. Hold off on further diuresis due to rising creatinine. Start Lopressor 12 and half milligrams twice daily Lasix 40 mg IV x1 dose ordered on 01/29 for positive fluid balance and worsening respiratory status and diuresis will be continued while watching renal function Anemia 1 unit PRBCs ordered to be transfused on 01/23, 1 unit PRBCs ordered on 01/28 to keep hemoglobin above 8 g%. No overt evidence of blood loss. Follow CBC. Protein calorie malnutrition -Inserted NGT 01/22 following intubation, Continue tube feeds and advance to goal as well tolerated. BPH - Continue Flomax. DVT prophylaxis per surgeon Access: RIJ central line placed 01/22 01/22: D/w Dr. Mani Sherman, D/W CERTIFIED ART THERAPIST, D/W patient's family at bedside. 01/23 D/W patient's daughter at bedside regarding current clinical status and plan of care and they voiced understanding and were agreeable with plan of care. D/W ID-Dr Tom on 01/23 01/24: Discussed with patient's family at bedside regarding current clinical status and plan of care and they voiced understanding. Discussed with ID Dr. Tom, discussed with Dr. Piña. Discussed with CERTIFIED ART THERAPIST. 01/25: I spoke with patient's daughter at the bedside this morning. We discussed goals for ventilator weaning and nutrition. I spoke with extensive family members later in the day. 01/26: I spoke at length with the patient's daughter this morning and will speak extensively with other family members later today. 01/27: I spoke with patient's family member at bedside regarding his respiratory status and plan of care and he voiced understanding. Will come back and update other family members later. 01/28: I updated family regarding plan of care. 01/29: Update multiple family members regarding clinical status including borderline respiratory status requiring BiPAP. Patient scheduled for surgery which was also discussed. I explained that patient will probably remain on mechanical ventilation postoperatively until improvement in respiratory status. 01/30: Treated patient's family regarding current clinical status including plan of care. Discussed need for thoracentesis and pigtail catheter placement for right effusion and possible need for bronchoscopy/BAL. They voiced understanding and were agreeable with plan of care. Discussed with Dr. Tom , discussed with Dr. Jacky Macias from pulmonary who was consulted as well for further evaluation of respiratory failure. Condition critical Time spent on critical care excluding procedures 45-minute
--- NOTE | 2018-01-30 12:59 | P.PNID ---
Subjective Remarks: sp b/l shouldcers debridement remains on vent with PEEP 5, FiO2 50% CT showed b/l effusions R>L afebrile toleartes TF @ 25 cc /hr + nl BMs Antibiotics: vanco teflaro rifampin meropenem Lines: Line sites with no e.o infection Past Medical History: reviewed Allergies/Adverse Reactions: Allergies amoxicillin Allergy (Severe, Verified 01/13/18 20:44) Hives Objective Vital Signs 01/29/18 15:15 01/29/18 15:32 01/29/18 15:46 Temperature Pulse Rate 89 83 Respiratory Rate Blood Pressure 198/112 H 143/62 H Pulse Oximetry 100 100 01/29/18 16:00 01/29/18 16:03 01/29/18 16:20 Temperature 98.6 F Pulse Rate 79 80 Respiratory Rate Blood Pressure 147/76 H 147/76 H Pulse Oximetry 100 100 98 01/29/18 16:26 01/29/18 16:33 01/29/18 17:00 Temperature Pulse Rate 80 82 84 Respiratory Rate Blood Pressure 119/63 113/57 L Pulse Oximetry 100 100 99 01/29/18 17:04 01/29/18 17:18 01/29/18 17:33 Temperature Pulse Rate 79 87 81 Respiratory Rate Blood Pressure 89/52 L 166/93 H 168/77 H Pulse Oximetry 99 98 99 01/29/18 18:00 01/29/18 18:03 01/29/18 18:18 Temperature 98.8 F Pulse Rate 77 78 Respiratory Rate 14 18 Blood Pressure 188/85 H Pulse Oximetry 99 99 99 01/29/18 18:33 01/29/18 19:00 01/29/18 19:03 Temperature Pulse Rate 83 77 76 Respiratory Rate Blood Pressure 152/76 H 155/77 H Pulse Oximetry 99 99 99 01/29/18 19:33 01/29/18 20:00 01/29/18 20:03 Temperature 99.3 F Pulse Rate 78 81 80 Respiratory Rate Blood Pressure 163/75 H 165/77 H Pulse Oximetry 99 97 99 01/29/18 20:33 01/29/18 21:00 01/29/18 21:03 Temperature Pulse Rate 79 80 79 Respiratory Rate Blood Pressure 149/80 H 142/65 H Pulse Oximetry 99 99 99 01/29/18 21:23 01/29/18 21:33 01/29/18 22:00 Temperature Pulse Rate 83 75 Respiratory Rate 14 Blood Pressure 95/52 L Pulse Oximetry 97 97 98 01/29/18 22:03 01/29/18 22:33 01/29/18 23:00 Temperature Pulse Rate 77 80 74 Respiratory Rate Blood Pressure 96/58 L 120/69 Pulse Oximetry 98 100 100 01/29/18 23:03 01/29/18 23:33 01/30/18 00:00 Temperature 99.1 F Pulse Rate 73 75 75 Respiratory Rate Blood Pressure 146/68 H 118/64 Pulse Oximetry 100 100 99 01/30/18 00:03 01/30/18 00:24 01/30/18 00:33 Temperature Pulse Rate 77 77 Respiratory Rate 14 Blood Pressure 99/55 L 85/58 L Pulse Oximetry 98 100 99 01/30/18 00:41 01/30/18 01:00 01/30/18 01:03 Temperature Pulse Rate 77 74 72 Respiratory Rate Blood Pressure 106/54 L 125/59 L Pulse Oximetry 98 100 100 01/30/18 01:33 01/30/18 02:00 01/30/18 02:03 Temperature Pulse Rate 76 74 75 Respiratory Rate Blood Pressure 131/59 L 123/60 Pulse Oximetry 100 99 99 01/30/18 02:33 01/30/18 03:00 01/30/18 03:03 Temperature Pulse Rate 76 75 72 Respiratory Rate Blood Pressure 112/59 L 112/58 L Pulse Oximetry 99 98 99 01/30/18 03:33 01/30/18 04:00 01/30/18 04:03 Temperature 99.5 F Pulse Rate 72 76 73 Respiratory Rate Blood Pressure 112/61 125/78 125/78 Pulse Oximetry 98 98 99 01/30/18 04:22 01/30/18 04:33 01/30/18 05:00 Temperature Pulse Rate 73 74 Respiratory Rate 14 Blood Pressure 116/59 L Pulse Oximetry 98 98 99 01/30/18 05:03 01/30/18 05:33 01/30/18 06:00 Temperature Pulse Rate 74 74 74 Respiratory Rate Blood Pressure 131/64 119/55 L Pulse Oximetry 99 98 99 01/30/18 06:03 01/30/18 06:33 01/30/18 07:00 Temperature 98.8 F Pulse Rate 76 80 81 Respiratory Rate Blood Pressure 126/59 L 150/79 H Pulse Oximetry 99 99 99 01/30/18 07:03 01/30/18 07:33 01/30/18 07:47 Temperature Pulse Rate 78 79 81 Respiratory Rate 14 Blood Pressure 143/67 H 141/65 H Pulse Oximetry 99 99 98 01/30/18 08:00 01/30/18 08:03 01/30/18 08:33 Temperature 98.8 F Pulse Rate 81 77 81 Respiratory Rate Blood Pressure 140/75 154/67 H Pulse Oximetry 100 100 99 01/30/18 09:00 01/30/18 09:03 01/30/18 09:33 Temperature Pulse Rate 82 80 78 Respiratory Rate Blood Pressure 105/57 L 95/50 L Pulse Oximetry 98 98 98 01/30/18 10:00 01/30/18 10:03 01/30/18 10:33 Temperature Pulse Rate 77 80 78 Respiratory Rate Blood Pressure 133/62 149/71 H Pulse Oximetry 99 99 99 01/30/18 11:00 01/30/18 11:03 01/30/18 11:33 Temperature Pulse Rate 77 77 72 Respiratory Rate Blood Pressure 146/70 H 106/58 L Pulse Oximetry 99 99 98 01/30/18 11:44 01/30/18 12:00 01/30/18 12:03 Temperature Pulse Rate 71 72 Respiratory Rate 14 Blood Pressure 124/61 Pulse Oximetry 99 98 98 01/30/18 12:33 Temperature Pulse Rate 73 Respiratory Rate Blood Pressure 131/63 Pulse Oximetry 98 Intake & Output 01/29/18 01/30/18 01/30/18 18:59 06:59 18:59 Intake Total 1322.5 / 1322.5 420 / 420 100 / 100 Output Total 1310 / 1310 500 / 500 Balance 12.5 / 12.5 -80 / -80 100 / 100 Weight 78.1 kg Intake: IV 462.5 / 462.5 300 / 300 100 / 100 Diprivan 1000 mg/100 ml Inj 1, 100 / 100 100 / 100 000 mg In 100 ml @ 5 MCG/KG/MIN 2.082 mls/hr IV.CONT TITRATE PRN Rx#:[id number] Teflaro Inj 300 MG In NS Inj 100 / 100 100 / 100 100 ML @ 100 mls/hr IV.SIG Q12H [facility] Rx#:[id number] Vancomycin Inj 1,250 MG In NS 262.5 / 262.5 Inj 250 ML @ 250 mls/hr IV.SIG ONCE ONE Rx#:[id number] RIFADIN Inj 300 MG In NS Inj 100 / 100 100 / 100 100 ML @ 100 mls/hr IV.SIG Q12H [facility] Rx#:[id number] Tube Feeding 0 / 0 Tube Irrigant 60 / 60 120 / 120 Anesthesia Amount 800 / 800 Output: Estimated Blood Loss 20 / 20 Urine Amount (Catheter) 1250 / 1250 475 / 475 Indwelling Urethral Catheter 1250 / 1250 475 / 475 Wound Drainage 40 / 40 25 / 25 # 2 Left Shoulder 10 / 10 Left Shoulder 20 / 20 Right Shoulder 20 / 20 Other: Date of Last Bowel Movement 01/29/18 01/29/18 01/29/18 # Bowel Movements 0 01/25/18 10:40 Blood - Peripheral Aerobic Blood Culture - Final No growth in 5 days 01/25/18 10:40 Blood - Peripheral Anaerobic Blood Culture - Final No growth in 5 days 01/25/18 10:52 Blood - Peripheral Aerobic Blood Culture - Final No growth in 5 days 01/25/18 10:52 Blood - Peripheral Anaerobic Blood Culture - Final No growth in 5 days 01/29/18 14:11 Wound - Shoulder Fungal Smear - Final No fungal elements seen 01/29/18 14:11 Wound - Shoulder Fungal Culture - Pending 01/29/18 14:10 Wound - Shoulder Fungal Smear - Final No fungal elements seen 01/29/18 14:10 Wound - Shoulder Fungal Culture - Pending 01/29/18 13:59 Wound - Shoulder Fungal Smear - Final No fungal elements seen 01/29/18 13:59 Wound - Shoulder Fungal Culture - Pending 01/29/18 14:11 Wound - Shoulder Gram Stain - Final 01/29/18 14:11 Wound - Shoulder Wound Culture - Pending 01/29/18 14:10 Wound - Shoulder Gram Stain - Final 01/29/18 14:10 Wound - Shoulder Wound Culture - Pending 01/29/18 13:59 Wound - Shoulder Gram Stain - Final 01/29/18 13:59 Wound - Shoulder Wound Culture - Pending 01/29/18 13:58 Wound - Shoulder Fungal Smear - Final No fungal elements seen 01/29/18 13:58 Wound - Shoulder Fungal Culture - Pending 01/29/18 13:58 Wound - Shoulder Gram Stain - Final 01/29/18 13:58 Wound - Shoulder Wound Culture - Pending 01/29/18 17:00 Sputum - Endotracheal Gram Stain - Final 01/29/18 17:00 Sputum - Endotracheal Sputum Culture - Pending 01/29/18 14:11 Wound - Shoulder Acid Fast Bacilli Smear - Pending 01/29/18 14:11 Wound - Shoulder Mycobacterial Culture - Pending 01/29/18 14:10 Wound - Shoulder Acid Fast Bacilli Smear - Pending 01/29/18 14:10 Wound - Shoulder Mycobacterial Culture - Pending 01/29/18 13:59 Wound - Shoulder Acid Fast Bacilli Smear - Pending 01/29/18 13:59 Wound - Shoulder Mycobacterial Culture - Pending 01/29/18 13:58 Wound - Shoulder Acid Fast Bacilli Smear - Pending 01/29/18 13:58 Wound - Shoulder Mycobacterial Culture - Pending 01/15/18 18:25 Wound - Shoulder Fungal Smear - Final No fungal elements seen 01/15/18 18:25 Wound - Shoulder Fungal Culture - Preliminary No growth in 2 weeks 01/15/18 18:25 Wound - Shoulder Acid Fast Bacilli Smear - Final No acid fast bacilli seen 01/15/18 18:25 Wound - Shoulder Mycobacterial Culture - Preliminary No growth in 2 weeks 01/15/18 18:25 Wound - Shoulder Fungal Smear - Final No fungal elements seen 01/15/18 18:25 Wound - Shoulder Fungal Culture - Preliminary No growth in 2 weeks 01/15/18 18:25 Wound - Shoulder Acid Fast Bacilli Smear - Final No acid fast bacilli seen 01/15/18 18:25 Wound - Shoulder Mycobacterial Culture - Preliminary No growth in 2 weeks 01/24/18 16:30 Fluid - Other Gram Stain - Final 01/24/18 16:30 Fluid - Other Body Fluid Culture - Final S. aureus MRSA 01/23/18 14:42 Fluid - Other Gram Stain - Final 01/23/18 14:42 Fluid - Other Body Fluid Culture - Final S. aureus MRSA Lab - Hematology Results 01/29/18 01/30/18 06:05 04:20 WBC 6.9 8.0 RBC 3.11 L 3.00 L Hgb 8.7 L 8.2 L Hct 26.2 L 25.3 L MCV 84.0 84.5 MCH 28.0 27.5 MCHC 33.3 32.5 RDW 18.7 H 18.9 H Plt Count 161 174 MPV 9.1 8.7 Prelim Diff (Auto) Slide review pending Slide review pending Neut % (Auto) 84.4 H 87.9 H Lymph % (Auto) 10.8 8.1 L [place] % (Auto) 3.0 2.7 Eos % (Auto) 1.3 1.0 Baso % (Auto) 0.5 0.3 Neut # (Auto) 5.8 7.0 Lymph # (Auto) 0.7 L 0.6 L [place] # (Auto) 0.2 0.2 Eos # (Auto) 0.1 0.1 Baso # (Auto) 0.0 0.0 WBC Differential Manual diff final Manual diff final Seg Neuts % (Manual) 82 H 78 H Band Neuts % (Manual) 8 H 11 H Lymphocytes % (Manual) 9 8 L Monocytes % (Manual) 2 Basophils % (Manual) 1 Metamyelocytes % (Man) 1 Abs Neuts (Manual) 6.3 7.1 Differential Comment . . Platelet Estimate Normal Normal Platelet Morphology Normal Normal Lab - Chemistry Results 01/29/18 01/30/18 06:05 04:20 Sodium 144 142 Potassium 3.6 3.5 Chloride 110 H 109 H Carbon Dioxide 26.5 24.3 Anion Gap 8 9 BUN 55 H 52 H Creatinine 1.79 H 1.74 H Estimated GFR 37 L 38 L Random Glucose 94 83 Calcium 8.4 L 8.4 L Magnesium 2.3 2.2 Imaging: ITS Impressions Abdomen/Pelvis CT 01/13/18 20:43 CONCLUSION: 1. Marked prostate enlargement. 2. Air-filled distention of sigmoid colon. 3. Cardiomegaly. Small bilateral pleural effusions. 4. Diffuse atherosclerotic disease and arterial calcification. 5. Old insufficiency type fractures of the left side of the sacrum and left- sided pubic rami. Cervical Spine MRI 01/14/18 00:00 CONCLUSION: 1. Examination is degraded by motion artifact. 2. Partial visualization of a mass involving the left supraclavicular region measuring 5.[address] scan of the soft tissues of the neck with IV contrast to further assess if the patient can't hold still for that exam. 3. Diffuse degenerative changes as detailed at each level in the above discussion. Head MRI 01/14/18 00:00 CONCLUSION: 1. No acute intracranial abnormality. 2. Encephalomalacia involving the left frontal lobe. Thoracic Spine MRI 01/14/18 00:00 CONCLUSION: 1. See the MRI of the cervical spine reported separately. 2. Orthopedic hardware at the thoracolumbar junction. 3. Patent central canal throughout. Head CT 01/14/18 00:31 CONCLUSION: 1. No acute intracranial findings. 2. 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 . Venous Doppler Study 01/14/18 09:20 CONCLUSION: 1. The study is negative for lower extremity deep venous thrombosis. Soft Tissue Neck CT 01/16/18 00:00 CONCLUSION: 1. Partially visualized fluid and gas collection deep to the left trapezius muscle in the posterior lower neck extending into the posterior thorax. Chest CT with contrast could be performed to image the remainder of the abnormality. Differential diagnosis includes abscess and hematoma. 2. Degenerative findings of the cervical spine. Abscess Drainage CT 01/17/18 00:00 CONCLUSION: 1. Uncomplicated CT guided drainage, as above. WBC Scan Nuclear Medicine 01/18/18 00:00 CONCLUSION: 1. Multiple areas of abnormal uptake including at the upper lumbar spine around the upper left surgical hardware and at the L1-2 disc level. 2. Abnormal activity around the clip joints bilaterally being more prominent on the right. 3. Abnormal activity in the right C2-3 facet and the left C7-T1 facet. 4. Small area of signal abnormality in the posterior right sacroiliac joint region separate from surgical hardware. 5. All these areas are concerning for active infection. Shoulder X-Ray 01/21/18 00:00 CONCLUSION: Unusual positioning of the shoulder but I do not see any obvious displaced fracture of the shoulder. There is a healing third rib fracture and healing seventh rib fracture. Upper Extremity Ultrasound 01/22/18 00:00 CONCLUSION: 1. Lateral right shoulder subcutaneous complex fluid collection concerning for abscess. This is amenable to percutaneous drainage. Abscess Drainage Ultrasound 01/23/18 00:00 CONCLUSION: 1. Uncomplicated ultrasound-guided drainage catheter placement in complex inferolateral right shoulder fluid collection. Lumbar Spine MRI 01/23/18 00:00 CONCLUSION: Little or no change from previous exam. Nothing to suggest abscess Pelvis MRI 01/23/18 00:00 CONCLUSION: 1. Diffuse skin thickening and subcutaneous edema suggestive of cellulitis involving the left buttock without underlying abscess formation. 2. Rectosigmoid colon is distended with fecal debris suggestive of fecal impaction. Clinical correlation is recommended. 3. Markedly enlarged prostate. 4. Degenerative changes and scoliosis of the visualized lower lumbar spine are noted. 5. Bony changes involving the left sacrum likely representing old healed insufficiency fractures. Shoulder MRI 01/23/18 00:00 CONCLUSION: 1. Chronic complete rotator cuff tear. 2. Moderate joint fluid Abscess Drainage 01/24/18 15:37 CONCLUSION: 1. Uncomplicated percutaneous placement of drainage catheter in left shoulder. Chest CT 01/29/18 15:28 CONCLUSION: 1. Interval increase in the amount of pleural effusions bilaterally. Findings have been discussed with Dr. Tom on today's date. Chest X-Ray 01/30/18 07:00 CONCLUSION: Stable chest x-ray with bibasilar pleural-parenchymal opacities representing pleural effusions with associated compressive atelectasis and airspace consolidation. Physical Exam: GENERAL: on vent SKIN: Warm and dry. No rash HEAD: Atraumatic. Normocephalic. EYES: Pupils equal and round. No scleral icterus. No injection or drainage. ENT: No nasal bleeding or discharge. Mucous membranes pink and moist. NECK: Trachea midline. No JVD. No palpable masses, but diffuse pain CARDIOVASCULAR: Regular rate and rhythm. nO murmurs RESPIRATORY: No accessory muscle use. decrease BS on R anteriorly to auscultation. + rhonchi b/l GASTROINTESTINAL: Abdomen soft, non-tender, mildly distended. Hepatic and splenic margins not palpable. MUSCULOSKELETAL: Extremities without clubbing, cyanosis, no signioficant edema. No obvious deformities. + R shoulder drain in place, cloudy serosang fluid + new fluctuance . Left shoulder dressing in place NEUROLOGICAL: sedated PSYCHIATRIC: unable to assess Assessment and Plan - Plan High grade staph bacteremia. MRSA 2 D echo neg R shoulder effusion , cw R shoulder septic arhtritis (MRSA)-post I&D. . 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 and infection 2 yrs ago Encephalopathy - resolved B/L septic shoulder arhtritis, MRSA, cw metastatic staph infx New PNA, RLL with acute VDRF - on NIVM High grade PNC allergy, but tolerated meropenem OK Recs: continue vancomycin cont teflaro cont Rifampin cont Meropenem for now will start to deescalate abx as clx will come in dw family @ b/s dw Migdalia Lockhart, Monserrat levin RN
--- NOTE | 2018-01-30 13:05 | P.DIET ---
Nutritional Evaluation Type of nutrition evaluation: follow-up Nutrition consult regarding: Tube Feeding Nutrition screening: [facility] – [place] Screening comments: 01/18 Malnutrition 01/23 New TF Subjective Subjective Comments: From previous note dated 01/19: Pt's family reports pt is eating very little, he takes a few bites then is full. State they feed him and they will give him the Nepro. Objective - Diagnosis AMS, UTI, A-fib - Objective % IBW: 88 (IBW = 148#) Body Weight Used for Calculations: Actual (59.5) Energy Needs - Lower Range (kCal/kg): 28 Energy Needs - Upper Range (kCal/kg): 32 Lower Limit kCal/kg (kCals): 1,666 Upper Limit kCal/kg (kCals): 1,904 Lower Limit Protein Factor (Grams per Kg): 1.0 Upper Limit Protein Factor (Grams per Kg): 1.5 Lower Protein Needs (Protein): 60 Upper Protein Needs (Protein): 89 Fluid Factor (ml/kg): 28 Estimated Fluid Needs (ml): 1,971 Dietitian Reviewed in Medical Record: Curent medications, Intake & Output, Labs , Medical history, Tube feeding Diet Order: NPO Objective Comments: PMH: HTN, GERD, PUD, Hypothyroidism, Afib Meds include: Synthroid Assessment Assessment: TF was on hold for surgery. Reordered today and currently receiving 30 mls/hr. Agree with current order for Jevity 1.5 with a goal rate of 60 mls/hr. TF will run for 22 hours d/t synthorid. TF must be held one hour before and after synthroid is given. Jevity 1.5 @ 60 mls/hr x 22 hours will provide 1980 kcals, 84 gms protein and 1003 mls of free water. Labs, wts and clinical course reviewed. Recommendations: Jevity 1.5 @ 60 mls/hr x 22 hours Dietitian to Monitor: Lab values, Intake & Output, Tube feeding tolerance, Weight change, Medical course
--- NOTE | 2018-01-30 15:02 | P.RAD ---
Post CT Procedure Prog Note - Procedure Information Procedure Date: 01/30/18 Supervising Radiologist: Rebel Patterson MD Estimated blood loss (mL): 5 Anesthesia: Conscious Sedation - Plan of Activity Patient to Unit: Critical Care Patient condition: Good See PACS Report for procedural detail/treatment.
--- NOTE | 2018-01-30 16:06 | CT ---
EXAM DATE: 01/30/2018 3:46 PM EST AGE/SEX: 82 years / Male INDICATIONS: Right pleural effusion. CLINICAL DATA: This is the patient's initial encounter. Patient reports that signs and symptoms have been present for 1 day and indicates a pain score of Nonresponsive. MEDICAL/SURGICAL HISTORY: Hypertension. Hypothyroidism. Peptic ulcer disease. None. [place] [facility] [place]AST, 01/14/2018. . DEVICE(S): 19 gauge Introducer 7 Fr Dilator 10 Fr catheter FLUID: Total volume of 600 of clear, yellow fluid was removed. 20 mL of Fluid was sent to lab for ordered studies.. . . PROCEDURE: CT guided right thoracentesis. The site was prepped in sterile fashion. Full sterile technique was used, including cap, mask, steri le gloves and gown and a large sterile sheet. Hand hygiene and 2% chlorhexidine and/or betadine/alco hol prep was utilized per protocol for cutaneous antisepsis. The skin and subcutaneous tissues were infiltrated with local anesthetic solution. Using automated exposure control and adjustment of the mA and/or kV according to patient size, radiation dose was kept as low as reasonably achievable to obta in optimal diagnostic quality images. DICOM format image data is available electronically for review and comparison. With the patient supine on the CT table, property supervisor images were obtained through the chest demonstrating t he right sided pleural effusion. Dermatotomy was made and the prescribed catheter was advanced into the pleural fluid. The pleural fluid as above was removed from the hemithorax. Post procedural scan show reduction in the amount of fluid with no evidence of pneumothorax. The patient was sent to recovery in stable condition. FINDINGS: There is insufficient pleural fluid on the left for safe thoracentesis or catheter placement. CONCLUSION: 1. Uncomplicated CT-guided right-sided chest tube placement. Electronically signed by: Rebel Patterson MD 01/30/2018 4:04 PM EST
--- NOTE | 2018-01-30 16:22 | XR ---
EXAM DATE: 01/30/2018 4:01 PM EST AGE/SEX: 82 years / Male INDICATIONS: Post thoracentesis CLINICAL DATA: This is the patient's subsequent encounter. Patient reports that signs and symptoms h ave been present for 1 week and indicates a pain score of Nonresponsive. MEDICAL/SURGICAL HISTORY: . BPH. A-Fib. MRSA. Hypertension. Hypothyroidism. GERD. . . . . Fus ion, Lumbar. Appendectomy. Cervical, unspecified COMPARISON: [facility], CHEST 1V SINGLE AP, 01/30/2018. . FINDINGS: The cardiac silhouette is enlarged in transverse diameter. Support lines and tubes are in satisfactor y position. A right chest tube is in place. There is no evidence of pneumothorax. There is a signific ant decrease in the right-sided effusion. There is left lower lobe atelectasis versus pneumonia. CONCLUSION: No evidence of pneumothorax following thoracentesis. Electronically signed by: Geoff Morris MD 01/30/2018 4:21 PM EST
--- NOTE | 2018-01-30 16:33 | P.PNNP ---
Subjective Interval history: Patient is on ventilator had chest tube placed drained about 700 cc of pleural fluid Physical Exam Vital signs: Vital Signs 01/29/18 16:33 01/29/18 17:00 01/29/18 17:04 Temperature Pulse Rate 82 84 79 Respiratory Rate Blood Pressure 113/57 L 89/52 L Pulse Oximetry 100 99 99 01/29/18 17:18 01/29/18 17:33 01/29/18 18:00 Temperature 98.8 F Pulse Rate 87 81 77 Respiratory Rate 14 Blood Pressure 166/93 H 168/77 H Pulse Oximetry 98 99 99 01/29/18 18:03 01/29/18 18:18 01/29/18 18:33 Temperature Pulse Rate 78 83 Respiratory Rate 18 Blood Pressure 188/85 H 152/76 H Pulse Oximetry 99 99 99 01/29/18 19:00 01/29/18 19:03 01/29/18 19:33 Temperature Pulse Rate 77 76 78 Respiratory Rate Blood Pressure 155/77 H 163/75 H Pulse Oximetry 99 99 99 01/29/18 20:00 01/29/18 20:03 01/29/18 20:33 Temperature 99.3 F Pulse Rate 81 80 79 Respiratory Rate Blood Pressure 165/77 H 149/80 H Pulse Oximetry 97 99 99 01/29/18 21:00 01/29/18 21:03 01/29/18 21:23 Temperature Pulse Rate 80 79 Respiratory Rate 14 Blood Pressure 142/65 H Pulse Oximetry 99 99 97 01/29/18 21:33 01/29/18 22:00 01/29/18 22:03 Temperature Pulse Rate 83 75 77 Respiratory Rate Blood Pressure 95/52 L 96/58 L Pulse Oximetry 97 98 98 01/29/18 22:33 01/29/18 23:00 01/29/18 23:03 Temperature Pulse Rate 80 74 73 Respiratory Rate Blood Pressure 120/69 146/68 H Pulse Oximetry 100 100 100 01/29/18 23:33 01/30/18 00:00 01/30/18 00:03 Temperature 99.1 F Pulse Rate 75 75 77 Respiratory Rate Blood Pressure 118/64 99/55 L Pulse Oximetry 100 99 98 01/30/18 00:24 01/30/18 00:33 01/30/18 00:41 Temperature Pulse Rate 77 77 Respiratory Rate 14 Blood Pressure 85/58 L 106/54 L Pulse Oximetry 100 99 98 01/30/18 01:00 01/30/18 01:03 01/30/18 01:33 Temperature Pulse Rate 74 72 76 Respiratory Rate Blood Pressure 125/59 L 131/59 L Pulse Oximetry 100 100 100 01/30/18 02:00 01/30/18 02:03 01/30/18 02:33 Temperature Pulse Rate 74 75 76 Respiratory Rate Blood Pressure 123/60 112/59 L Pulse Oximetry 99 99 99 01/30/18 03:00 01/30/18 03:03 01/30/18 03:33 Temperature Pulse Rate 75 72 72 Respiratory Rate Blood Pressure 112/58 L 112/61 Pulse Oximetry 98 99 98 01/30/18 04:00 01/30/18 04:03 01/30/18 04:22 Temperature 99.5 F Pulse Rate 76 73 Respiratory Rate 14 Blood Pressure 125/78 125/78 Pulse Oximetry 98 99 98 01/30/18 04:33 01/30/18 05:00 01/30/18 05:03 Temperature Pulse Rate 73 74 74 Respiratory Rate Blood Pressure 116/59 L 131/64 Pulse Oximetry 98 99 99 01/30/18 05:33 01/30/18 06:00 01/30/18 06:03 Temperature Pulse Rate 74 74 76 Respiratory Rate Blood Pressure 119/55 L 126/59 L Pulse Oximetry 98 99 99 01/30/18 06:33 01/30/18 07:00 01/30/18 07:03 Temperature 98.8 F Pulse Rate 80 81 78 Respiratory Rate Blood Pressure 150/79 H 143/67 H Pulse Oximetry 99 99 99 01/30/18 07:33 01/30/18 07:47 01/30/18 08:00 Temperature 98.8 F Pulse Rate 79 81 81 Respiratory Rate 14 Blood Pressure 141/65 H Pulse Oximetry 99 98 100 01/30/18 08:03 01/30/18 08:33 01/30/18 09:00 Temperature Pulse Rate 77 81 82 Respiratory Rate Blood Pressure 140/75 154/67 H Pulse Oximetry 100 99 98 01/30/18 09:03 01/30/18 09:33 01/30/18 10:00 Temperature Pulse Rate 80 78 77 Respiratory Rate Blood Pressure 105/57 L 95/50 L Pulse Oximetry 98 98 99 01/30/18 10:03 01/30/18 10:33 01/30/18 11:00 Temperature Pulse Rate 80 78 77 Respiratory Rate Blood Pressure 133/62 149/71 H Pulse Oximetry 99 99 99 01/30/18 11:03 01/30/18 11:33 01/30/18 11:44 Temperature Pulse Rate 77 72 Respiratory Rate 14 Blood Pressure 146/70 H 106/58 L Pulse Oximetry 99 98 99 01/30/18 12:00 01/30/18 12:03 01/30/18 12:33 Temperature Pulse Rate 71 72 73 Respiratory Rate Blood Pressure 124/61 131/63 Pulse Oximetry 98 98 98 01/30/18 13:00 01/30/18 13:03 01/30/18 13:33 Temperature Pulse Rate 74 73 72 Respiratory Rate Blood Pressure 113/59 L 117/56 L Pulse Oximetry 99 99 99 01/30/18 14:00 01/30/18 14:03 01/30/18 15:25 Temperature Pulse Rate 73 68 Respiratory Rate Blood Pressure 108/58 L Pulse Oximetry 98 98 99 01/30/18 15:46 Temperature Pulse Rate Respiratory Rate 14 Blood Pressure Pulse Oximetry 96 Intake & Output 01/29/18 01/30/18 01/30/18 18:59 06:59 18:59 Intake Total 1322.5 / 1322.5 420 / 420 100 / 100 Output Total 1310 / 1310 500 / 500 Balance 12.5 / 12.5 -80 / -80 100 / 100 Weight 78.1 kg Intake: IV 462.5 / 462.5 300 / 300 100 / 100 Diprivan 1000 mg/100 ml Inj 1, 100 / 100 100 / 100 000 mg In 100 ml @ 5 MCG/KG/MIN 2.082 mls/hr IV.CONT TITRATE PRN Rx#:[id number] Teflaro Inj 300 MG In NS Inj 100 / 100 100 / 100 100 ML @ 100 mls/hr IV.SIG Q12H CHAYO Rx#:[id number] Vancomycin Inj 1,250 MG In NS 262.5 / 262.5 Inj 250 ML @ 250 mls/hr IV.SIG ONCE ONE Rx#:[id number] RIFADIN Inj 300 MG In NS Inj 100 / 100 100 / 100 100 ML @ 100 mls/hr IV.SIG Q12H CHAYO Rx#:[id number] Tube Feeding 0 / 0 Tube Irrigant 60 / 60 120 / 120 Anesthesia Amount 800 / 800 Output: Estimated Blood Loss 20 / 20 Urine Amount (Catheter) 1250 / 1250 475 / 475 Indwelling Urethral Catheter 1250 / 1250 475 / 475 Wound Drainage 40 / 40 25 / 25 # 2 Left Shoulder 10 / 10 Left Shoulder 20 / 20 Right Shoulder 20 / 20 15 / 15 Other: Date of Last Bowel Movement 01/29/18 01/29/18 01/29/18 # Bowel Movements 0 Narrative: GENERAL: Well-nourished, well-developed intubated patient. SKIN: Warm and dry. HEAD: Normocephalic. EYES: No scleral icterus. No injection or drainage. NECK: Supple, trachea midline. No JVD or lymphadenopathy. CARDIOVASCULAR: Irregular RESPIRATORY: Breath sounds equal bilaterally. Chest tube in the right side GASTROINTESTINAL: Abdomen soft, non-tender, nondistended. EXTREMITIES: Shoulder bandage NEUROLOGICAL: Awake, intubated - Urinary Catheter Management Condom Cath placed during this visit: no Indwelling Urethral Catheter Cath placed during this visit: yes Reason for continuing: Hourly intake/output Insertion date: 01/20/18 Insertion time: 11:30 Assessment and Plan - Assessment (1) Acute renal failure Code(s): N17.9 - Acute kidney failure, unspecified Status: Acute (2) Atrial fibrillation Code(s): I48.91 - Unspecified atrial fibrillation Status: Acute Qualifiers: Atrial fibrillation type: unspecified Qualified Code(s): I48.91 - Unspecified atrial fibrillation (3) Sepsis Code(s): A41.9 - Sepsis, unspecified organism Status: Acute Qualifiers: Sepsis type: methicillin resistant Staphylococcus aureus Qualified Code(s) : A41.02 - Sepsis due to Methicillin resistant Staphylococcus aureus - Plan Patient was hypotensive Lasix stopped, creatinine 1.7 nonoliguric BP was low given fluid, hold amlodipine Had surgical debridement of his shoulders Continue to monitor Keep him well-hydrated Patient is on the ventilator status post right chest tube On ceftaroline Follow BMP
[2018-01-30 16:36] LABS: Total Protein,Pleural Fluid 2.4 gm/dL
[2018-01-30 16:51] LABS: ABG Base Excess -0.6 mmol/L (-2-2); ABG PCO2 38 mmHg (38-42); ABG PO2 115 mmHg (61-120)
[2018-01-30 17:05] LABS: Lymphocytes,Pleural Fluid 47 %; Mesothelial,Pleural Fluid 3 %; Monocytes,Pleural Fluid 38 %; Neutrophils,Pleural Fluid 10 %; RBC,Pleural Fluid 452 /mm3 (0-0)
[2018-01-30 17:53] LABS: Hematocrit 25.8 % (39.0-51.0); Hemoglobin 8.7 gm/dL (13.0-17.0); Mean Corpuscular HGB Conc 33.7 % (32.0-36.0); Mean Corpuscular Hemoglobin 28.1 pg (27.0-34.0); Mean Corpuscular Volume 83.4 fL (80.0-100.0); Mean Platelet Volume 9.2 fL (7.0-11.0); Platelet Count 187 th/mm3 (150-450); Red Blood Count 3.09 mil/mm3 (4.50-5.90); Red Cell Distribution Width 19.4 % (11.6-17.2); White Blood Count 8.5 th/mm3 (4.0-11.0)
[2018-01-30 18:08] LABS: Anion Gap 6 meq/L (5-15); Blood Urea Nitrogen 52 mg/dL (7-18); Calcium 8.4 mg/dL (8.5-10.1); Carbon Dioxide 25.9 meq/L (21.0-32.0); Chloride 108 meq/L (98-107); Glomerular Filtration Rate 36 mL/min (>89); Glucose,Random 151 mg/dL (74-106); Potassium 3.5 meq/L (3.5-5.1); Sodium 140 meq/L (136-145)
[2018-01-30 18:09] LABS: Alanine Aminotransferase 8 U/L (12-78); Aspartate Aminotransferase 6 U/L (15-37)
[2018-01-30 18:18] LABS: Alkaline Phosphatase 124 U/L (45-117)
[2018-01-30] MEDS: Dextrose 5% in Water Inj 1,000 ML IV.CONT SCH ×2 (18:31→20:11)
--- NOTE | 2018-01-30 19:57 | MB ---
cc: Jose Antonio Macias MD DATE: 01/30/2018 HISTORY OF PRESENT ILLNESS: Mr. Lujan is an 82-year-old gentleman who Dr. Morales asked me to see and render an opinion regarding current pulmonary care. The patient was initially hospitalized on 01/13/2018 after arriving back from [place] where he had a bad problem with progressive weakness. The patient underwent extensive lumbosacral spine surgery in [place] 2 years ago and apparently has had some problems with infections since then. I do not have access to the records from the [facility], but apparently he had been seen there and there was a suspicion or documentation that there was some infection involving the material used in that surgery. In any event, the patient was admitted for generalized weakness and was found initially to have fluid in his shoulders. He was seen by multiple consultants initially due to his weakened condition, but was eventually cleared for surgery and was found to have bilateral infected shoulders with MRSA. He was then seen by Dr. Tom from infectious disease on 01/14/2018 and has been followed carefully on multiple antibiotics since that time. It is my understanding that no specific neurologic deficiency has been identified and the generalized weakness was thought to be due to sepsis infection and general debility. The patient had required aggressive fluid resuscitation initially, developed acute respiratory insufficiency, and ended up in the intensive surgical care unit on mechanical ventilatory support. He was subsequently weaned and extubated, but required BiPAP at night. Yesterday, he went for additional drainage of his shoulders, required general anesthesia, and was left intubated after the procedure in light of his debilitated state. CT scan at that time also revealed a very large right and a small left pleural effusion. Today, he went down to interventional radiology and a catheter chest tube was placed on the right with drainage of 700 mL of a fairly clear serous fluid, which appears transudative but is still pending final results. The fluid on the left was not significant enough for drainage. He has been stable hemodynamically on ventilatory support since his surgery yesterday. I spoke to his daughter at the bedside. He had not had preexisting pulmonary disease. He was not a heavy smoker during his adult life. Prior history is well outlined on the multiple consultation notes. Basically, he did have a previous history of an abscess after his surgery in 2016. 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 He has been seen by Dr. Garner. During this admission, he has developed renal insufficiency, but that has been improving. Also has a history of BPH. SOCIAL HISTORY: No history of alcoholism or significant tobacco use. ALLERGIES: Amaryl. MEDICATIONS: Reviewed in the medical record. REVIEW OF SYSTEMS: Unobtainable. The patient is mechanically ventilated and sedated. PHYSICAL EXAMINATION: GENERAL: An elderly white gentleman with multiple lines in place, sequential hose in place, intubated, mechanically ventilated, unresponsive on sedation. VITAL SIGNS: Blood pressure 108/60, pulse 80, respirations currently 0, on full mechanical ventilatory support. O2 saturation 98%. HEENT: Sclerae are anicteric. NECK: Veins are not distended. CHEST: Some minimal scattered congestion. No wheezing or rales. Chest tube in place on the right with clear serous drainage in the Pleur-Evac. HEART: No harsh murmur. No audible S3. ABDOMEN: Soft. Sequential hose in place on his legs. EXTREMITIES: There is no significant edema. DIAGNOSTIC DATA: Chest x-ray post-procedure reveals some haziness at the bases, but improved at the right, considerably upper limit of normal heart size on a portable film. Cultures reveal multiple specimens with MRSA, blood, synovial fluid, sputum. No fungal or acid fast organisms have been identified to date in multiple specimens. White count is 8000, hemoglobin is 8.2, BUN and creatinine have been as high as 83 and 2.3, currently 52 and 1.8, albumin is 2. Chest x-ray as noted above. DISCUSSION: Mr. Lujan presented extremely ill. Evaluation today appears to show the primary cause MRSA septicemia with multiple sites involved. General debility, fluid resuscitation, and surgeries have resulted in his requiring mechanical ventilatory support at present, but does not appear, based on his history, that he had any preexisting lung disease. I have reviewed the case thoroughly with Dr. Morales. I do not see any further interventions that are necessary from a pulmonary standpoint at present. Their plan is to monitor him for the next 24-48 hours to see whether he is able to be weaned from mechanical ventilation as he had been previously. His weak and debilitated state may make that challenging, but hopefully that will be successful. There is not adequate fluid on the left to consider drainage and if drainage is minimal over the next 48-72 hours on the right and the fluid cultures are negative, his tube could be removed. Primary problem here seems to be an infectious disease process that is being adequately treated at present. I spoke to his daughter at the bedside today and placed a phone call to other family, but was unable to reach them. I have no further recommendations after reviewing this with Dr. Morales. I will not see him regularly; but, if I can be of further assistance, I would be happy to see him back in the future. Thank you for asking me to see him with you in consultation. R. Jacky Macias MD RSW/ts , 06:15 PM , 06:29 PM
[2018-01-30] MEDS: Melatonin 5 MG Tablet PO SCH (20:10)
--- NOTE | 2018-01-30 21:17 | P.PNNS ---
Subjective Interval history: This 82-year-old gentleman was transferred emergently from the floor to the surgical intensive care unit because of rapid onset combined hypoxemic and hypercapnic respiratory failure. On arrival he has diffuse crackles throughout both lung santizo and his neck veins are distended. On admission several days ago he was dehydrated and had an element of acute kidney injury. His weight is up about 5 kg since admission though his renal function has improved. On arrival he is breathing 40 times a minute on a nonrebreathing mask with pH of 7.18 and P CO2 of 74. His acidosis is purely respiratory and associated with bronchospasm from fluid overload. B natruretic peptide is elevated to greater than 2000. Other pertinent major problems include septic joint drainage and treatment. 01/28. He is on BiPAP mask, Resting comfortably, On BIPAP overnight. Tolerating facemask during day prn. Tolerating tube feeds. Hgb 7.1 today, 1 unit PRBCs ordered. 01/29. 01/29: hE WAS on nasal cannula all day yesterday. Last night developed worsening respiratory status and tachypnea for which he was placed on BiPAP. Remains on BiPAP this morning and appears comfortable. Chest x-ray this morning shows haziness over right lung field with probable pulmonary edema versus infiltrate. . 01/30. He was taken to surgery yesterday for bilateral shoulder collections under general anesthesia, tolerated procedure well was subsequently transferred back to the ICU and kept orally intubated on mechanical ventilation overnight. His CT chest done yesterday revealed bilateral pleural effusions right greater than left for which CT-guided thoracentesis Physical Exam Vital signs: Vital Signs 01/29/18 21:23 01/29/18 21:33 01/29/18 22:00 Temperature Pulse Rate 83 75 Respiratory Rate 14 Blood Pressure 95/52 L Pulse Oximetry 97 97 98 01/29/18 22:03 01/29/18 22:33 01/29/18 23:00 Temperature Pulse Rate 77 80 74 Respiratory Rate Blood Pressure 96/58 L 120/69 Pulse Oximetry 98 100 100 01/29/18 23:03 01/29/18 23:33 01/30/18 00:00 Temperature 99.1 F Pulse Rate 73 75 75 Respiratory Rate Blood Pressure 146/68 H 118/64 Pulse Oximetry 100 100 99 01/30/18 00:03 01/30/18 00:24 01/30/18 00:33 Temperature Pulse Rate 77 77 Respiratory Rate 14 Blood Pressure 99/55 L 85/58 L Pulse Oximetry 98 100 99 01/30/18 00:41 01/30/18 01:00 01/30/18 01:03 Temperature Pulse Rate 77 74 72 Respiratory Rate Blood Pressure 106/54 L 125/59 L Pulse Oximetry 98 100 100 01/30/18 01:33 01/30/18 02:00 01/30/18 02:03 Temperature Pulse Rate 76 74 75 Respiratory Rate Blood Pressure 131/59 L 123/60 Pulse Oximetry 100 99 99 01/30/18 02:33 01/30/18 03:00 01/30/18 03:03 Temperature Pulse Rate 76 75 72 Respiratory Rate Blood Pressure 112/59 L 112/58 L Pulse Oximetry 99 98 99 01/30/18 03:33 01/30/18 04:00 01/30/18 04:03 Temperature 99.5 F Pulse Rate 72 76 73 Respiratory Rate Blood Pressure 112/61 125/78 125/78 Pulse Oximetry 98 98 99 01/30/18 04:22 01/30/18 04:33 01/30/18 05:00 Temperature Pulse Rate 73 74 Respiratory Rate 14 Blood Pressure 116/59 L Pulse Oximetry 98 98 99 01/30/18 05:03 01/30/18 05:33 01/30/18 06:00 Temperature Pulse Rate 74 74 74 Respiratory Rate Blood Pressure 131/64 119/55 L Pulse Oximetry 99 98 99 01/30/18 06:03 01/30/18 06:33 01/30/18 07:00 Temperature 98.8 F Pulse Rate 76 80 81 Respiratory Rate Blood Pressure 126/59 L 150/79 H Pulse Oximetry 99 99 99 01/30/18 07:03 01/30/18 07:33 01/30/18 07:47 Temperature Pulse Rate 78 79 81 Respiratory Rate 14 Blood Pressure 143/67 H 141/65 H Pulse Oximetry 99 99 98 01/30/18 08:00 01/30/18 08:03 01/30/18 08:33 Temperature 98.8 F Pulse Rate 81 77 81 Respiratory Rate Blood Pressure 140/75 154/67 H Pulse Oximetry 100 100 99 01/30/18 09:00 01/30/18 09:03 01/30/18 09:33 Temperature Pulse Rate 82 80 78 Respiratory Rate Blood Pressure 105/57 L 95/50 L Pulse Oximetry 98 98 98 01/30/18 10:00 01/30/18 10:03 01/30/18 10:33 Temperature Pulse Rate 77 80 78 Respiratory Rate Blood Pressure 133/62 149/71 H Pulse Oximetry 99 99 99 01/30/18 11:00 01/30/18 11:03 01/30/18 11:33 Temperature Pulse Rate 77 77 72 Respiratory Rate Blood Pressure 146/70 H 106/58 L Pulse Oximetry 99 99 98 01/30/18 11:44 01/30/18 12:00 01/30/18 12:03 Temperature Pulse Rate 71 72 Respiratory Rate 14 Blood Pressure 124/61 Pulse Oximetry 99 98 98 01/30/18 12:33 01/30/18 13:00 01/30/18 13:03 Temperature Pulse Rate 73 74 73 Respiratory Rate Blood Pressure 131/63 113/59 L Pulse Oximetry 98 99 99 01/30/18 13:33 01/30/18 14:00 01/30/18 14:03 Temperature Pulse Rate 72 73 68 Respiratory Rate Blood Pressure 117/56 L 108/58 L Pulse Oximetry 99 98 98 01/30/18 15:00 01/30/18 15:25 01/30/18 15:34 Temperature Pulse Rate 93 H 85 Respiratory Rate Blood Pressure 132/69 Pulse Oximetry 99 99 98 01/30/18 15:35 01/30/18 15:46 01/30/18 15:59 Temperature 100 F H Pulse Rate 86 77 Respiratory Rate 14 Blood Pressure 138/70 88/53 L Pulse Oximetry 98 96 95 01/30/18 16:00 01/30/18 16:06 01/30/18 16:07 Temperature Pulse Rate 76 78 77 Respiratory Rate Blood Pressure 85/53 L 85/51 L Pulse Oximetry 95 96 96 01/30/18 16:08 01/30/18 16:12 01/30/18 16:14 Temperature Pulse Rate 76 74 74 Respiratory Rate Blood Pressure 87/54 L 87/54 L 108/59 L Pulse Oximetry 96 96 97 01/30/18 16:16 01/30/18 16:25 01/30/18 16:49 Temperature 100 F H Pulse Rate 78 73 81 Respiratory Rate Blood Pressure 155/73 H 147/64 H Pulse Oximetry 100 100 01/30/18 17:00 01/30/18 18:00 01/30/18 20:18 Temperature 100 F H Pulse Rate 82 87 Respiratory Rate 14 Blood Pressure 155/68 H 120/55 L Pulse Oximetry 100 96 99 01/30/18 20:25 Temperature Pulse Rate 79 Respiratory Rate 14 Blood Pressure Pulse Oximetry Intake & Output 01/30/18 01/30/18 01/31/18 06:59 18:59 06:59 Intake Total 420 / 420 455 / 455 300 / 300 Output Total 500 / 500 1999 Balance -80 / -80 -1545 / -1545 300 / 300 Weight 78.1 kg Intake: IV 300 / 300 100 / 100 300 / 300 Diprivan 1000 mg/100 ml Inj 1, 100 / 100 100 / 100 100 / 100 000 mg In 100 ml @ 5 MCG/KG/MIN 2.082 mls/hr IV.CONT TITRATE PRN Rx#:[id number] Teflaro Inj 300 MG In NS Inj 100 / 100 100 / 100 100 ML @ 100 mls/hr IV.SIG Q12H CHAYO Rx#:[id number] RIFADIN Inj 300 MG In NS Inj 100 / 100 100 / 100 100 ML @ 100 mls/hr IV.SIG Q12H CHAYO Rx#:[id number] Tube Feeding 255 / 255 Tube Irrigant 120 / 120 100 / 100 Output: Pleural Fluid 650 / 650 Urine Amount (Catheter) 475 / 475 1275 / 1275 Indwelling Urethral Catheter 475 / 475 1275 / 1275 Wound Drainage 25 / 25 75 / 75 # 2 Left Shoulder 10 / 10 25 / 25 Right Shoulder 15 / 15 50 / 50 Other: Date of Last Bowel Movement 01/29/18 01/29/18 # Bowel Movements 0 0 Narrative: The patient is intubated and sedated. Localizes to painful stimuli with all 4 extremities. Cranial Nerves: Pupils equal, 3 mm round, reactive to light. Eyes appear conjugated. There was no nystagmus, no papilledema. Face musculature appeared symmetrical at rest. Face sensation, olfaction, and hearing cannot be adequately assessed due to the patient's neurological condition. The patient has a corneal reflex. The patient has a gag reflex. The sternocleidomastoid and trapezius were symmetrical. Cervical Spine: The patient's neck is soft, supple, without nuchal rigidity. Motor: His muscle tone and bulk are normal. He moves purposefully all 4 extremities symmetrically. Reflexes: Deep tendon reflexes are 2+ and symmetrical in the biceps, triceps, and brachioradialis, bilaterally, in the upper extremities. In the lower extremities, the patellar and ankles are 2+, bilaterally. There is a bilateral plantar flexion response. There is no clonus or other abnormal reflexes noted. Sensory: On examination there there is response to painful stimuli, localizing with both upper and lower extremities. Cerebellar: Examination cannot be adequately assessed due to the patient's neurological condition. Lungs: clear Heart: Regular rhythm and rate Skin: warm and dry - Urinary Catheter Management Condom Cath placed during this visit: no Indwelling Urethral Catheter Cath placed during this visit: yes Reason for continuing: Hourly intake/output Insertion date: 01/20/18 Insertion time: 11:30 Assessment and Plan - Plan 82 year old male Sepsis left shoulder abscess s/p I&D left neck abscess s/p drainage remote history of lumbar fusion with suspected chronic osteomyelitis Neuro. Continue neuro checks. Acute combined hypercapnic and hypoxemic respiratory failure Again on mechanical ventilation His CT chest with bilateral effusions for which scheduled for CT-guided right- sided thoracentesis/pigtail catheter placement with IR -Bronchodilators -diuresed to mobilize fluid -Scott required for BPH as well as diuresis May need further bronchoscopy. Follow-up chest x-ray -Continue mechanical ventilation, vent bundle. Added Mucomyst to mobilize secretions. -Frequent suctioning required MRSA septicemia, septic right shoulder, L spine possible osteomyelitis, left supraclavicular abscess Right shoulder effusion. septic right shoulder, s/p I&D Urinary tract infection. Left Supraclavicular abscess, CT reviewed, showed abscess extending to posterior thorax He was taken to surgery yesterday for bilateral shoulder collections under general anesthesia, tolerated procedure Blood cultures positive for MRSA. 2D echocardiogram did not show any findings consistent with vegetations. Continue vancomycin, Levaquin, meropenem per ID. Patient also had a right shoulder effusion, orthopedics aspirated the shoulder - approximately 30 cc of purulent fluid. Orthopedics planning OR for drainage ob bilateral shoulder collections on 01/29 Continue IV antibiotics per infectious disease recommendations. Infectious disease following repeat blood cultures ntd Cardiothoracic surgeon was consulted for evaluation of supraclavicular mass/ poss abscess NM WBC scan 01/18/18 and 01/19/18. Patient received ativan as not able to tolerate CT imaging he was noted agitated in CT and imaging needed to be repeat. KEKE on CKD. Being diuresed, Strict I/O, monitor/ replete electrolytes, follow BUN/ Cr Nephrology following, appreciate recs. Significant fluid removal with diuresis but creatinine increased. Fluid balance appears about the right today 01/25, but mild prerenal azotemia noted Worsening prerenal azotemia Atrial Fibrillation, permanent Dr. Garner following Rate well controlled. old antihypertensives. On 01/23 ordered Levophed for pressor support to keep MAP greater than 65mm Hg however has not required pressors. Hold off on further diuresis due to rising creatinine. Start Lopressor 12 and half milligrams twice daily ANEMIA: TRANSFUSED 1u prbc Protein calorie malnutrition: very low albumin, will check prealbumin. Will add ensure with meals. Consult upholstery mechanic. BPH - Continue Flomax. Endocrine: Continue to Monitor serial Acu checks and SSI as needed in detail Continue Protonix for stress ulcer prophylaxis Continue Randolph gaona and SCD's for DVT prophylaxis. Lovenox Further recommendations will be provided depending on the patient's clinical evaluation and follow up studies.
--- NOTE | 2018-01-30 21:17 | P.PNNS ---
Subjective Interval history: THIS NOTE REPRESENTS MY ENCOUNTER ON 01/29/2018 DURING ROUNDS This 82-year-old gentleman was transferred emergently from the floor to the surgical intensive care unit because of rapid onset combined hypoxemic and hypercapnic respiratory failure. On arrival he has diffuse crackles throughout both lung santizo and his neck veins are distended. On admission several days ago he was dehydrated and had an element of acute kidney injury. His weight is up about 5 kg since admission though his renal function has improved. On arrival he is breathing 40 times a minute on a nonrebreathing mask with pH of 7.18 and P CO2 of 74. His acidosis is purely respiratory and associated with bronchospasm from fluid overload. B natruretic peptide is elevated to greater than 2000. Other pertinent major problems include septic joint drainage and treatment. 01/28. He is on BiPAP mask, Resting comfortably, On BIPAP overnight. Tolerating facemask during day prn. Tolerating tube feeds. Hgb 7.1 today, 1 unit PRBCs ordered. 01/29. 01/29: hE WAS on nasal cannula all day yesterday. Last night developed worsening respiratory status and tachypnea for which he was placed on BiPAP. Remains on BiPAP this morning and appears comfortable. Chest x-ray this morning shows haziness over right lung field with probable pulmonary edema versus infiltrate. . Physical Exam Vital signs: Vital Signs 01/29/18 21:23 01/29/18 21:33 01/29/18 22:00 Temperature Pulse Rate 83 75 Respiratory Rate 14 Blood Pressure 95/52 L Pulse Oximetry 97 97 98 01/29/18 22:03 01/29/18 22:33 01/29/18 23:00 Temperature Pulse Rate 77 80 74 Respiratory Rate Blood Pressure 96/58 L 120/69 Pulse Oximetry 98 100 100 01/29/18 23:03 01/29/18 23:33 01/30/18 00:00 Temperature 99.1 F Pulse Rate 73 75 75 Respiratory Rate Blood Pressure 146/68 H 118/64 Pulse Oximetry 100 100 99 01/30/18 00:03 01/30/18 00:24 01/30/18 00:33 Temperature Pulse Rate 77 77 Respiratory Rate 14 Blood Pressure 99/55 L 85/58 L Pulse Oximetry 98 100 99 01/30/18 00:41 01/30/18 01:00 01/30/18 01:03 Temperature Pulse Rate 77 74 72 Respiratory Rate Blood Pressure 106/54 L 125/59 L Pulse Oximetry 98 100 100 01/30/18 01:33 01/30/18 02:00 01/30/18 02:03 Temperature Pulse Rate 76 74 75 Respiratory Rate Blood Pressure 131/59 L 123/60 Pulse Oximetry 100 99 99 01/30/18 02:33 01/30/18 03:00 01/30/18 03:03 Temperature Pulse Rate 76 75 72 Respiratory Rate Blood Pressure 112/59 L 112/58 L Pulse Oximetry 99 98 99 01/30/18 03:33 01/30/18 04:00 01/30/18 04:03 Temperature 99.5 F Pulse Rate 72 76 73 Respiratory Rate Blood Pressure 112/61 125/78 125/78 Pulse Oximetry 98 98 99 01/30/18 04:22 01/30/18 04:33 01/30/18 05:00 Temperature Pulse Rate 73 74 Respiratory Rate 14 Blood Pressure 116/59 L Pulse Oximetry 98 98 99 01/30/18 05:03 01/30/18 05:33 01/30/18 06:00 Temperature Pulse Rate 74 74 74 Respiratory Rate Blood Pressure 131/64 119/55 L Pulse Oximetry 99 98 99 01/30/18 06:03 01/30/18 06:33 01/30/18 07:00 Temperature 98.8 F Pulse Rate 76 80 81 Respiratory Rate Blood Pressure 126/59 L 150/79 H Pulse Oximetry 99 99 99 01/30/18 07:03 01/30/18 07:33 01/30/18 07:47 Temperature Pulse Rate 78 79 81 Respiratory Rate 14 Blood Pressure 143/67 H 141/65 H Pulse Oximetry 99 99 98 01/30/18 08:00 01/30/18 08:03 01/30/18 08:33 Temperature 98.8 F Pulse Rate 81 77 81 Respiratory Rate Blood Pressure 140/75 154/67 H Pulse Oximetry 100 100 99 01/30/18 09:00 01/30/18 09:03 01/30/18 09:33 Temperature Pulse Rate 82 80 78 Respiratory Rate Blood Pressure 105/57 L 95/50 L Pulse Oximetry 98 98 98 01/30/18 10:00 01/30/18 10:03 01/30/18 10:33 Temperature Pulse Rate 77 80 78 Respiratory Rate Blood Pressure 133/62 149/71 H Pulse Oximetry 99 99 99 01/30/18 11:00 01/30/18 11:03 01/30/18 11:33 Temperature Pulse Rate 77 77 72 Respiratory Rate Blood Pressure 146/70 H 106/58 L Pulse Oximetry 99 99 98 01/30/18 11:44 01/30/18 12:00 01/30/18 12:03 Temperature Pulse Rate 71 72 Respiratory Rate 14 Blood Pressure 124/61 Pulse Oximetry 99 98 98 01/30/18 12:33 01/30/18 13:00 01/30/18 13:03 Temperature Pulse Rate 73 74 73 Respiratory Rate Blood Pressure 131/63 113/59 L Pulse Oximetry 98 99 99 01/30/18 13:33 01/30/18 14:00 01/30/18 14:03 Temperature Pulse Rate 72 73 68 Respiratory Rate Blood Pressure 117/56 L 108/58 L Pulse Oximetry 99 98 98 01/30/18 15:00 01/30/18 15:25 01/30/18 15:34 Temperature Pulse Rate 93 H 85 Respiratory Rate Blood Pressure 132/69 Pulse Oximetry 99 99 98 01/30/18 15:35 01/30/18 15:46 01/30/18 15:59 Temperature 100 F H Pulse Rate 86 77 Respiratory Rate 14 Blood Pressure 138/70 88/53 L Pulse Oximetry 98 96 95 01/30/18 16:00 01/30/18 16:06 01/30/18 16:07 Temperature Pulse Rate 76 78 77 Respiratory Rate Blood Pressure 85/53 L 85/51 L Pulse Oximetry 95 96 96 01/30/18 16:08 01/30/18 16:12 01/30/18 16:14 Temperature Pulse Rate 76 74 74 Respiratory Rate Blood Pressure 87/54 L 87/54 L 108/59 L Pulse Oximetry 96 96 97 01/30/18 16:16 01/30/18 16:25 01/30/18 16:49 Temperature 100 F H Pulse Rate 78 73 81 Respiratory Rate Blood Pressure 155/73 H 147/64 H Pulse Oximetry 100 100 01/30/18 17:00 01/30/18 18:00 01/30/18 20:18 Temperature 100 F H Pulse Rate 82 87 Respiratory Rate 14 Blood Pressure 155/68 H 120/55 L Pulse Oximetry 100 96 99 01/30/18 20:25 Temperature Pulse Rate 79 Respiratory Rate 14 Blood Pressure Pulse Oximetry Intake & Output 01/30/18 01/30/18 01/31/18 06:59 18:59 06:59 Intake Total 420 / 420 455 / 455 300 / 300 Output Total 500 / 500 1999 / 1999 Balance -80 / -80 -1545 / -1545 300 / 300 Weight 78.1 kg Intake: IV 300 / 300 100 / 100 300 / 300 Diprivan 1000 mg/100 ml Inj 1, 100 / 100 100 / 100 100 / 100 000 mg In 100 ml @ 5 MCG/KG/MIN 2.082 mls/hr IV.CONT TITRATE PRN Rx#:[id number] Teflaro Inj 300 MG In NS Inj 100 / 100 100 / 100 100 ML @ 100 mls/hr IV.SIG Q12H CHAYO Rx#:[id number] RIFADIN Inj 300 MG In NS Inj 100 / 100 100 / 100 100 ML @ 100 mls/hr IV.SIG Q12H CHAYO Rx#:[id number] Tube Feeding 255 / 255 Tube Irrigant 120 / 120 100 / 100 Output: Pleural Fluid 650 / 650 Urine Amount (Catheter) 475 / 475 1275 / 1275 Indwelling Urethral Catheter 475 / 475 1275 / 1275 Wound Drainage 25 / 75 / 75 # 2 Left Shoulder 10 25 / 25 Right Shoulder 15 50 / 50 Other: Date of Last Bowel Movement 01/29/18 01/29/18 # Bowel Movements 0 0 Narrative: THIS NOTE REPRESENTS MY ENCOUNTER ON 01/29/2018 DURING ROUNDS General: Awake, alert, following commands. On BiPAP with full facemask HEENT: Neck chronically stiff consistent with age. Chest/pulm: air entry improved at right base, lung santizo uniformly clear, no wheezes or crackles. CVS: S1S2, irregular rhythm, no JVD. Improved rate control this morning. Abd: Soft, nontender, bowel sounds present. No guarding. No distention. Ext: Warm bilaterally. Bilateral drains in shoulder collections. Limbs are warm and well perfused. Drains bilaterally and shoulders Neuro: On BiPAP with full facemask. Opens eyes to soft voice and tracks with eyes. Nods head to questions. Moves arms and legs weakly. Recognizes HIS family - Urinary Catheter Management Condom Cath placed during this visit: no Indwelling Urethral Catheter Cath placed during this visit: yes Reason for continuing: Hourly intake/output Insertion date: 01/20/18 Insertion time: 11:30 Assessment and Plan - Plan THIS NTE REPRESENTS MY ENCOUNTER ON 01/29/2018 DURING ROUNDS 82 year old male Sepsis left shoulder abscess s/p I&D left neck abscess s/p drainage remote history of lumbar fusion with suspected chronic osteomyelitis Neuro. Continue neuro checks. Acute combined hypercapnic and hypoxemic respiratory failure -Bronchodilators -diuresed to mobilize fluid -Scott required for BPH as well as diuresis -Status post bronchoscopy with BAL on 01/22 with significant mucus plugging noted in the right-sided airways including right mainstem bronchus for which BAL was performed with significant clearing of airway. Bronchial washing sent for Gram stain and cultures. Follow-up chest x-ray post bronchoscopy showed significant improvement in aeration of right lung. -Continue mechanical ventilation, vent bundle. Added Mucomyst to mobilize secretions. -Frequent suctioning required MRSA septicemia, septic right shoulder, L spine possible osteomyelitis, left supraclavicular abscess Right shoulder effusion. septic right shoulder, s/p I&D Urinary tract infection. Left Supraclavicular abscess, CT reviewed, showed abscess extending to posterior thorax Diskitis MR L spine with poss diskitis Blood cultures positive for MRSA. 2D echocardiogram did not show any findings consistent with vegetations. Continue vancomycin, Levaquin, meropenem per ID. Patient also had a right shoulder effusion, orthopedics aspirated the shoulder - approximately 30 cc of purulent fluid. Orthopedics planning OR for drainage ob bilateral shoulder collections on 01/29 Continue IV antibiotics per infectious disease recommendations. Infectious disease following repeat blood cultures ntd Cardiothoracic surgeon was consulted for evaluation of supraclavicular mass/ poss abscess NM WBC scan 01/18/18 and 01/19/18. Patient received ativan as not able to tolerate CT imaging he was noted agitated in CT and imaging needed to be repeat. KEKE on CKD. Being diuresed, Strict I/O, monitor/ replete electrolytes, follow BUN/ Cr Nephrology following, appreciate recs. Significant fluid removal with diuresis but creatinine increased. Fluid balance appears about the right today 01/25, but mild prerenal azotemia noted Worsening prerenal azotemia Atrial Fibrillation, permanent Dr. Garner following Rate well controlled. old antihypertensives. On 01/23 ordered Levophed for pressor support to keep MAP greater than 65mm Hg however has not required pressors. Hold off on further diuresis due to rising creatinine. Start Lopressor 12 and half milligrams twice daily ANEMIA: TRANSFUSED 1u prbc Protein calorie malnutrition: very low albumin, will check prealbumin. Will add ensure with meals. Consult dye stand loader. BPH - Continue Flomax. Endocrine: Continue to Monitor serial Acu checks and SSI as needed in detail Continue Protonix for stress ulcer prophylaxis Continue Randolph hose and SCD's for DVT prophylaxis. Lovenox Further recommendations will be provided depending on the patient's clinical evaluation and follow up studies.
[2018-01-31] MEDS: Oral Hygiene Kit OROPHARYNG SCH ×4 (00:40→15:37)
[2018-01-31] MEDS: Ceftaroline Inj 300 MG in Sodium Chlor 0.9% Inj 100 ML IV.SIG SCH ×2 (03:44→15:37)
[2018-01-31] MEDS: RIFAMPIN IV.SIG SCH (03:44)
[2018-01-31] MEDS: SODIUM CHLOR 0.9% IV.SIG SCH (03:44)
--- NOTE | 2018-01-31 04:18 | XR ---
EXAM DATE: 01/31/2018 4:10 AM EST AGE/SEX: 82 years / Male INDICATIONS: Respiratory failure. CLINICAL DATA: This is the patient's subsequent encounter. Patient reports that signs and symptoms h ave been present for 3 weeks and indicates a pain score of Nonresponsive. MEDICAL/SURGICAL HISTORY: . Emphysema. Benign prostatic hyperplasia, (BPH) Osteoporosis. Hyper tension. Afib. Gastrointestinal ulcer. Renal failure. Chronic back pain. Depression. . Cataract amy arturo. Brain surgery, benign tumor removal. Spinal fusion T1-T5 . COMPARISON: [facility] [place], CHEST 1V SINGLE AP, 01/30/2018. . FINDINGS: Right jugular line tip overlies expected location of the right atrium. There is patchy airspace disea se identified as before greatest in the left lower lobe. Cardiomegaly is noted. Small left effusion n ot excluded. Enteric tube courses off the inferior margin of the film. Endotracheal tube tip terminat es 2.5 cm above the karan. CONCLUSION: Stable appearance of the chest. Electronically signed by: Dread Patricio MD 01/31/2018 4:16 AM EST
[2018-01-31] MEDS: Levothyroxine 100 MCG Tablet PO SCH (05:59)
[2018-01-31] MEDS: Propofol 1000 mg/100 ml Inj 1,000 MG/100 ML BOTTLE IV.CONT PRN (06:00)
[2018-01-31] MEDS: fentaNYL 10 mcg/mL Premix Drip 2,500 MCG/250 ML BAG IV.SIG PRN (06:24)
[2018-01-31 07:05] LABS: Baso % (Auto) 0.1 % (0.0-2.0); Eos # (Auto) 0.1 th/mm3 (0.0-0.4); Eos % (Auto) 0.9 % (0.0-4.0); Hematocrit 24.3 % (39.0-51.0); Hemoglobin 8.2 gm/dL (13.0-17.0); Lymph # (Auto) 0.5 th/mm3 (1.0-4.8); Lymph % (Auto) 6.8 % (9.0-44.0); Mean Corpuscular HGB Conc 33.8 % (32.0-36.0); Mean Corpuscular Hemoglobin 28.1 pg (27.0-34.0); Mean Corpuscular Volume 83.3 fL (80.0-100.0); Mean Platelet Volume 8.8 fL (7.0-11.0); Mono # (Auto) 0.2 th/mm3 (0.0-0.9); Mono % (Auto) 2.1 % (0.0-8.0); Neut # (Auto) 6.6 th/mm3 (1.8-7.7); Neut % (Auto) 90.1 % (16.0-70.0); Platelet Count 174 th/mm3 (150-450); Red Blood Count 2.92 mil/mm3 (4.50-5.90); Red Cell Distribution Width 19.9 % (11.6-17.2); White Blood Count 7.3 th/mm3 (4.0-11.0)
[2018-01-31 07:19] LABS: Alanine Aminotransferase 7 U/L (12-78); Albumin 1.7 g/dL (3.4-5.0); Alkaline Phosphatase 201 U/L (45-117); Anion Gap 9 meq/L (5-15); Aspartate Aminotransferase 9 U/L (15-37); Blood Urea Nitrogen 49 mg/dL (7-18); Calcium 7.5 mg/dL (8.5-10.1); Carbon Dioxide 23.5 meq/L (21.0-32.0); Chloride 108 meq/L (98-107); Glomerular Filtration Rate 35 mL/min (>89); Glucose,Random 248 mg/dL (74-106); Potassium 3.5 meq/L (3.5-5.1); Sodium 140 meq/L (136-145); Total Protein 4.9 g/dL (6.4-8.2); Vancomycin,Random 20.6 Comment
--- NOTE | 2018-01-31 08:16 | P.PNNEU ---
Subjective Subjective Comments: intubated Active Medications: Active Medications Acetaminophen (Tylenol) 650 mg PO Q4H PRN PRN Reason: Temp > 100.4 Hydrocodone Bitart/Acetaminophen ([place] 5/325) 1 tab PO Q4H PRN PRN Reason: PAIN LESS THAN 5 ON SCALE Last Admin: 01/28/18 08:04 Dose: 1 tab Hydrocodone Bitart/Acetaminophen ([place] 5/325) 2 tab PO Q6H PRN PRN Reason: PAIN SCALE 5 TO 10 Last Admin: 01/29/18 08:07 Dose: 2 tab Al Hydroxide/Mg Hydroxide (Milk Of Magnesia Liq) 30 ml PO Q12H PRN PRN Reason: Mild Constipation Last Admin: 01/25/18 08:31 Dose: 30 ml Al Hydroxide/Mg Hydroxide (Milk Of Magnesia Liq) 30 ml PO Q12H PRN PRN Reason: CONSTIPATION Albuterol (Duoneb Neb (Prn)) 1 ampul NEB Q2HR NEB PRN PRN Reason: WHEEZING Last Admin: 01/30/18 20:24 Dose: 1 ampul Amlodipine Besylate (Norvasc) 10 mg PO DAILY [facility] Last Admin: 01/30/18 10:40 Dose: 10 mg Bisacodyl (Dulcolax Supp) 10 mg RECTAL DAILY PRN PRN Reason: SEVERE CONSITIPATION Chlorhexidine Gluconate (Peridex 0.12% Oral Kit) 15 ml OROPHARYNG BID@0800, 2000 [facility] Last Admin: 01/30/18 20:11 Dose: 15 ml Citalopram Hydrobromide (Celexa) 20 mg PO DAILY [facility] Last Admin: 01/30/18 09:44 Dose: 20 mg Epinephrine (Racepinephrine 2.25% Neb) 0.5 ml NEB Q3HR NEB PRN PRN Reason: any upper airway noise or stri Furosemide (Lasix Inj) 40 mg IV.PUSH DAILY [facility] Last Admin: 01/30/18 09:45 Dose: 40 mg Hydralazine HCl (Apresoline Inj) 20 mg IV.PUSH Q4H PRN PRN Reason: SBP>160, DBP>90 Last Admin: 01/23/18 05:18 Dose: 20 mg Sodium Chloride (Ns Inj) 500 mls @ 30 mls/hr IV.SIG .Q10H [facility] Propofol (Diprivan 1000 Mg/100 Ml Inj) 1,000 mg in 100 mls @ 2.082 mls/hr IV.CONT TITRATE PRN; Protocol PRN Reason: Per Protocol Last Titration: 01/31/18 07:59 Dose: 0 mcg/kg/min, 0 mls/hr Fentanyl (Fentanyl 10 Mcg/Ml Premix Drip) 2,500 mcg in 250 mls @ 5 mls/hr IV.SIG TITRATE PRN; Protocol PRN Reason: Per Protocol Last Titration: 01/31/18 07:59 Dose: 0 mcg/hr, 0 mls/hr Midazolam HCl (Versed Inj) 100 mg in 100 mls @ 2 mls/hr IV.CONT TITRATE PRN; Protocol PRN Reason: See protocol Last Titration: 01/25/18 07:00 Dose: Infused Norepinephrine Bitartrate (Levophed-Dextrose 4 Mg/250 Ml Drip) 4 mg in 250 mls @ 7.5 mls/hr IV.SIG TITRATE PRN; Protocol PRN Reason: Per Protocol Rifampin 300 mg/ Sodium (Chloride) 100 mls @ 100 mls/hr IV.SIG Q12H [facility] Last Infusion: 01/31/18 05:00 Dose: Infused Dextrose (D5w Inj) 1,000 mls @ 20 mls/hr IV.CONT .Q24H [facility] Last Admin: 01/30/18 20:11 Dose: 20 mls/hr Ceftaroline Fosamil 300 mg/ (Sodium Chloride) 100 mls @ 100 mls/hr IV.SIG Q12H [facility] Last Infusion: 01/31/18 05:00 Dose: Infused Lactulose (Lactulose Liq) 30 ml PO DAILY PRN PRN Reason: SEVERE CONSITIPATION Last Admin: 01/25/18 22:14 Dose: 30 ml Lactulose (Lactulose Liq) 30 ml PO BID PRN PRN Reason: CONSTIPATION Levothyroxine Sodium (Synthroid) 100 mcg PO DAILY@0600 [facility] Last Admin: 01/31/18 05:59 Dose: 100 mcg Melatonin (Melatonin) 5 mg PO HS [facility] Last Admin: 01/30/18 20:10 Dose: 5 mg Metoprolol Tartrate (Lopressor) 12.5 mg PO BID [facility] Last Admin: 01/30/18 20:10 Dose: 12.5 mg Miscellaneous (Pill Splitter) 1 each OTHER UNSCH PRN PRN Reason: PILL SPIT Miscellaneous Medication () 1 each OROPHARYNG 0000,0400,1200,1600 [facility] Last Admin: 01/31/18 04:44 Dose: 1 each Morphine Sulfate (Morphine Inj) 2 mg IV.PUSH Q3H PRN PRN Reason: pain 1-10 when npo Last Admin: 01/27/18 03:49 Dose: 2 mg Ondansetron HCl (Zofran Inj) 4 mg IV.PUSH Q6H PRN PRN Reason: NAUSEA OR VOMITING Pantoprazole Sodium (Protonix) 20 mg PO DAILY [facility] Last Admin: 01/30/18 09:44 Dose: 20 mg Pharmacy Profile Note (Vancomycin Consult Pharmacy) 1 each OTHER UNSCH PRN PRN Reason: Pharmacy to dose Senna/Docusate Sodium (Diana-Colace) 1 tab PO BID [facility] Last Admin: 01/30/18 20:10 Dose: 1 tab Sennosides (Senokot) 17.2 mg PO Q12H PRN PRN Reason: Moderate Constipation Sodium Chloride (Ns Flush) 2 ml IV.FLUSH BID [facility] Last Admin: 01/30/18 20:11 Dose: 2 ml Sodium Chloride (Ns Flush) 2 ml IV.FLUSH PRN PRN PRN Reason: FLUSH AFTER USING IV ACCESS Last Admin: 01/29/18 16:09 Dose: 2 ml Tamsulosin HCl (Flomax) 0.4 mg PO DAILY [facility] Last Admin: 01/30/18 09:44 Dose: 0.4 mg Terbutaline Sulfate (Brethine Inj) 1 mg SQ UNSCH PRN PRN Reason: For Extravasation Allergies/Adverse Reactions: Allergies Allergy/AdvReac Type Severity Reaction Status Date / Time amoxicillin Allergy Severe Hives Verified 01/13/18 20:44 Review of Systems unobtainable due to endotracheal tube, unobtainable due to mental status Physical Exam Vital signs: Vital Signs 01/30/18 08:33 01/30/18 09:00 01/30/18 09:03 Temperature Pulse Rate 81 82 80 Respiratory Rate Blood Pressure 154/67 H 105/57 L Pulse Oximetry 99 98 98 01/30/18 09:33 01/30/18 10:00 01/30/18 10:03 Temperature Pulse Rate 78 77 80 Respiratory Rate Blood Pressure 95/50 L 133/62 Pulse Oximetry 98 99 99 12/06/18 10:33 01/30/18 11:00 01/30/18 11:03 Temperature Pulse Rate 78 77 77 Respiratory Rate Blood Pressure 149/71 H 146/70 H Pulse Oximetry 99 99 99 01/30/18 11:33 01/30/18 11:44 01/30/18 12:00 Temperature Pulse Rate 72 71 Respiratory Rate 14 Blood Pressure 106/58 L Pulse Oximetry 98 99 98 01/30/18 12:03 01/30/18 12:33 01/30/18 13:00 Temperature Pulse Rate 72 73 74 Respiratory Rate Blood Pressure 124/61 131/63 Pulse Oximetry 98 98 99 01/30/18 13:03 01/30/18 13:33 01/30/18 14:00 Temperature Pulse Rate 73 72 73 Respiratory Rate Blood Pressure 113/59 L 117/56 L Pulse Oximetry 99 99 98 01/30/18 14:03 01/30/18 15:00 01/30/18 15:25 Temperature Pulse Rate 68 93 H Respiratory Rate Blood Pressure 108/58 L Pulse Oximetry 98 99 99 01/30/18 15:34 01/30/18 15:35 01/30/18 15:46 Temperature Pulse Rate 85 86 Respiratory Rate 14 Blood Pressure 132/69 138/70 Pulse Oximetry 98 98 96 01/30/18 15:59 01/30/18 16:00 01/30/18 16:06 Temperature 100 F H Pulse Rate 77 76 78 Respiratory Rate Blood Pressure 88/53 L 85/53 L Pulse Oximetry 95 95 96 01/30/18 16:07 01/30/18 16:08 01/30/18 16:12 Temperature Pulse Rate 77 76 74 Respiratory Rate Blood Pressure 85/51 L 87/54 L 87/54 L Pulse Oximetry 96 96 96 01/30/18 16:14 01/30/18 16:16 01/30/18 16:25 Temperature 100 F H Pulse Rate 74 78 73 Respiratory Rate Blood Pressure 108/59 L 155/73 H Pulse Oximetry 97 100 01/30/18 16:49 01/30/18 17:00 01/30/18 18:00 Temperature 100 F H Pulse Rate 81 82 87 Respiratory Rate Blood Pressure 147/64 H 155/68 H 120/55 L Pulse Oximetry 100 100 96 01/30/18 19:00 01/30/18 20:00 12/06/18 20:18 Temperature 98.9 F Pulse Rate 72 78 Respiratory Rate 14 Blood Pressure 106/58 L 169/79 H Pulse Oximetry 99 99 99 01/30/18 20:25 01/30/18 21:00 01/30/18 22:00 Temperature Pulse Rate 79 81 79 Respiratory Rate 14 Blood Pressure 162/63 H 131/67 Pulse Oximetry 99 99 01/30/18 23:00 01/30/18 23:45 01/31/18 00:00 Temperature 99.1 F Pulse Rate 79 81 Respiratory Rate 14 Blood Pressure 136/65 115/61 Pulse Oximetry 98 98 98 01/31/18 01:00 01/31/18 02:00 01/31/18 03:00 Temperature Pulse Rate 75 81 80 Respiratory Rate Blood Pressure 131/60 138/75 150/74 H Pulse Oximetry 97 97 97 01/31/18 04:00 01/31/18 04:28 01/31/18 05:00 Temperature 98.6 F Pulse Rate 80 82 Respiratory Rate 14 Blood Pressure 119/55 L 125/61 Pulse Oximetry 97 98 98 01/31/18 06:00 01/31/18 07:55 Temperature Pulse Rate 80 Respiratory Rate 15 Blood Pressure 128/60 Pulse Oximetry 98 97 Intake & Output 01/30/18 01/31/18 01/31/18 18:59 06:59 18:59 Intake Total 705 / 705 1532 / 1532 Output Total 1999 715 / 715 Balance -1295 / -1295 817 / 817 Weight 77.8 kg Intake: IV 350 / 350 600 / 600 Diprivan 1000 mg/100 ml Inj 1, 100 / 100 200 / 200 000 mg In 100 ml @ 5 MCG/KG/MIN 2.082 mls/hr IV.CONT TITRATE PRN Rx#:[id number] Teflaro Inj 300 MG In NS Inj 200 / 200 100 ML @ 100 mls/hr IV.SIG Q12H [facility] Rx#:[id number] fentaNYL 10 mcg/mL Premix Drip 250 / 250 2,500 mcg In 250 ml @ 50 MCG/HR 5 mls/hr IV.SIG TITRATE PRN Rx #:[id number] RIFADIN Inj 300 MG In NS Inj 200 / 200 100 ML @ 100 mls/hr IV.SIG Q12H [facility] Rx#:[id number] Tube Feeding 255 / 255 932 / 932 Tube Irrigant 100 / 100 Output: Pleural Fluid 650 / 650 Urine Amount (Catheter) 1275 / 1275 550 / 550 Indwelling Urethral Catheter 1275 / 1275 550 / 550 Wound Drainage 75 / 75 40 / 40 # 2 Left Shoulder 25 / 25 Left Shoulder 15 / 15 Right Shoulder 50 / 50 25 / 25 Chest Tube Drainage 125 / 125 Right 125 / 125 Other: Date of Last Bowel Movement 01/29/18 01/29/18 # Bowel Movements 0 Narrative: GENERAL: Well-nourished, well-developed intubated patient. SKIN: Warm and dry. HEAD: Normocephalic. EYES: No scleral icterus. No injection or drainage. NECK: Supple, trachea midline. CARDIOVASCULAR: Irregular RESPIRATORY: Breath sounds equal bilaterally. Chest tube in the right side GASTROINTESTINAL: Abdomen soft, non-tender, nondistended. EXTREMITIES: Shoulder bandage kevin NEUROLOGICAL:intubated, deep stupor on propofol/fentanyl, not following, non- verbal, ou 3-2mm, eomi, face sym, mild le withdrawal - Constitutional no acute distress - Routine HEENT Exam Head: Present: normocephalic - Urinary Catheter Management Condom Cath placed during this visit: no Indwelling Urethral Catheter Cath placed during this visit: yes Reason for continuing: Hourly intake/output Insertion date: 01/20/18 Insertion time: 11:30 Objective Laboratory Results - last 24 hr 01/30/18 01/30/18 01/30/18 15:00 15:00 16:42 WBC RBC Hgb Hct MCV MCH MCHC RDW Plt Count MPV Prelim Diff (Auto) Neut % (Auto) Lymph % (Auto) [place] % (Auto) Eos % (Auto) Baso % (Auto) Neut # (Auto) Lymph # (Auto) [place] # (Auto) Eos # (Auto) Baso # (Auto) Differential Comment Puncture Site Art line Patient Temperature 98.6 O2 Saturation 96 ABG pH 7.41 ABG pCO2 38 ABG pO2 115 ABG HCO3 24 ABG O2 Content 11.8 L ABG Base Excess -0.6 ABG Methemoglobin 1.6 Hemoglobin 8.6 L Carboxyhemoglobin 1.2 O2 Delivery Device Ventilator Vent Setting Ac,[id number] Inspired O2 45 Critical Value No Sodium Potassium Chloride Carbon Dioxide Anion Gap BUN Creatinine Estimated GFR Random Glucose Lactic Acid Calcium Total Bilirubin AST ALT Alkaline Phosphatase Troponin I Total Protein Albumin Pleural pH 8.0 Pleural RBC 452 H Pleural Nuc Cells 89 H Pleural Neutrophils 10 Pleural Lymphocytes 47 Pleural Monocytes 38 Pleural Histocytes 2 Pleural Mesothelial 3 Pleural Total Protein 2.4 Pleural LDH 97 Pleural Glucose 95 Random Vancomycin 01/30/18 01/30/18 01/30/18 17:30 17:30 17:30 WBC 8.5 RBC 3.09 L Hgb 8.7 L Hct 25.8 L MCV 83.4 MCH 28.1 MCHC 33.7 RDW 19.4 H Plt Count 187 MPV 9.2 Prelim Diff (Auto) Neut % (Auto) Lymph % (Auto) [place] % (Auto) Eos % (Auto) Baso % (Auto) Neut # (Auto) Lymph # (Auto) [place] # (Auto) Eos # (Auto) Baso # (Auto) Differential Comment Puncture Site Patient Temperature O2 Saturation ABG pH ABG pCO2 ABG pO2 ABG HCO3 ABG O2 Content ABG Base Excess ABG Methemoglobin Hemoglobin Carboxyhemoglobin O2 Delivery Device Vent Setting Inspired O2 Critical Value Sodium 140 Potassium 3.5 Chloride 108 H Carbon Dioxide 25.9 Anion Gap 6 BUN 52 H Creatinine 1.82 H Estimated GFR 36 L Random Glucose 151 H Lactic Acid 0.8 Calcium 8.4 L Total Bilirubin 1.5 H AST 6 L ALT 8 L Alkaline Phosphatase 124 H Troponin I Total Protein 5.0 L Albumin 2.0 L Pleural pH Pleural RBC Pleural Nuc Cells Pleural Neutrophils Pleural Lymphocytes Pleural Monocytes Pleural Histocytes Pleural Mesothelial Pleural Total Protein Pleural LDH Pleural Glucose Random Vancomycin 01/30/18 01/31/18 01/31/18 17:30 06:14 06:14 WBC 7.3 RBC 2.92 L Hgb 8.2 L Hct 24.3 L MCV 83.3 MCH 28.1 MCHC 33.8 RDW 19.9 H Plt Count 174 MPV 8.8 Prelim Diff (Auto) Slide review pending Neut % (Auto) 90.1 H Lymph % (Auto) 6.8 L [place] % (Auto) 2.1 Eos % (Auto) 0.9 Baso % (Auto) 0.1 Neut # (Auto) 6.6 Lymph # (Auto) 0.5 L [place] # (Auto) 0.2 Eos # (Auto) 0.1 Baso # (Auto) 0.0 Differential Comment . Puncture Site Patient Temperature O2 Saturation ABG pH ABG pCO2 ABG pO2 ABG HCO3 ABG O2 Content ABG Base Excess ABG Methemoglobin Hemoglobin Carboxyhemoglobin O2 Delivery Device Vent Setting Inspired O2 Critical Value Sodium 140 Potassium 3.5 Chloride 108 H Carbon Dioxide 23.5 Anion Gap 9 BUN 49 H Creatinine 1.87 H Estimated GFR 35 L Random Glucose 248 H Lactic Acid Calcium 7.5 L D Total Bilirubin 1.2 H AST 9 L ALT 7 L Alkaline Phosphatase 201 H Troponin I Less than 0.02 L Total Protein 4.9 L Albumin 1.7 L Pleural pH Pleural RBC Pleural Nuc Cells Pleural Neutrophils Pleural Lymphocytes Pleural Monocytes Pleural Histocytes Pleural Mesothelial Pleural Total Protein Pleural LDH Pleural Glucose Random Vancomycin 20.6 Microbiology 01/29/18 17:00 Gram Stain - Final Sputum - Endotracheal Sputum Culture - Preliminary No growth in 24 hours 01/29/18 14:11 Gram Stain - Final Wound - Shoulder Wound Culture - Preliminary No growth in 24 hours 01/29/18 14:10 Gram Stain - Final Wound - Shoulder Wound Culture - Preliminary No growth in 24 hours 01/29/18 13:59 Gram Stain - Final Wound - Shoulder Wound Culture - Preliminary No growth in 24 hours 01/29/18 13:58 Gram Stain - Final Wound - Shoulder Wound Culture - Preliminary No growth in 24 hours 01/25/18 10:40 Aerobic Blood Culture - Final Blood - Peripheral No growth in 5 days Anaerobic Blood Culture - Final No growth in 5 days 01/25/18 10:52 Aerobic Blood Culture - Final Blood - Peripheral No growth in 5 days Anaerobic Blood Culture - Final No growth in 5 days 01/29/18 14:11 Fungal Smear - Final Wound - Shoulder No fungal elements seen 01/29/18 14:10 Fungal Smear - Final Wound - Shoulder No fungal elements seen 01/29/18 13:59 Fungal Smear - Final Wound - Shoulder No fungal elements seen 01/29/18 13:58 Fungal Smear - Final Wound - Shoulder No fungal elements seen Review/Management - Diagnosis (1) Disuse muscle atrophy Code(s): M62.50 - Muscle wasting and atrophy, not elsewhere classified, unspecified site Status: Acute Current Visit: Yes (2) Weakness Code(s): R53.1 - Weakness Status: Acute Current Visit: Yes (3) Acute UTI Code(s): N39.0 - Urinary tract infection, site not specified Status: Acute Current Visit: Yes (4) Atrial fibrillation Code(s): I48.91 - Unspecified atrial fibrillation Status: Acute Current Visit: Yes (5) Encephalomalacia on imaging study Code(s): G93.89 - Other specified disorders of brain Status: Acute Current Visit: Yes (6) Renal insufficiency Code(s): N28.9 - Disorder of kidney and ureter, unspecified Status: Acute Current Visit: Yes (7) MRSA (methicillin resistant Staphylococcus aureus) Code(s): A49.02 - Methicillin resistant Staphylococcus aureus infection, unspecified site Status: Acute Current Visit: Yes (8) Sepsis Code(s): A41.9 - Sepsis, unspecified organism Status: Acute Current Visit: Yes (9) Acute renal failure Code(s): N17.9 - Acute kidney failure, unspecified Status: Acute Current Visit: Yes (10) Pulmonary edema Code(s): J81.1 - Chronic pulmonary edema Status: Acute Current Visit: Yes - Review/Management Plan: Subacute progressive weakness apparently occurring couple days after flu vaccine however, found to have MRSA sepsis, shoulder abscess and possibly lumbar spine infection CK level and prealbumin is low disuse atrophy 2/2 sepsis/bedridden Moderate left frontal encephalomalacia appearing to be from meningioma resection bilateral shoulder i/d, arthrotomy Recommendation neuro unchanged, intubated. plans for extubation possibly CCM/ID management pt critically ill d/w pt's daughter, ccm at bedside (4) Atrial fibrillation Qualifiers: Atrial fibrillation type: unspecified Qualified Code(s): I48.91 - Unspecified atrial fibrillation (8) Sepsis Qualifiers: Sepsis type: methicillin resistant Staphylococcus aureus Qualified Code(s): A41.02 - Sepsis due to Methicillin resistant Staphylococcus aureus
[2018-01-31] MEDS: Metoprolol Tartrate 25 MG Tablet PO SCH ×2 (08:23→21:28)
[2018-01-31] MEDS: Pantoprazole Sodium 20 MG DR Tablet PO SCH (08:23)
[2018-01-31] MEDS: Senna/Docusate Sodium 8.6/50 MG Tablet PO SCH ×2 (08:23→21:28)
[2018-01-31] MEDS: Citalopram 20 MG Tablet PO SCH (08:23)
[2018-01-31] MEDS: Chlorhexidine 0.12% Oral Kit 15 ML UDC OROPHARYNG SCH ×2 (08:24→21:29)
[2018-01-31 08:45] LABS: Eosinophils 1 % (0-4); Lymphocytes 4 % (9-44); Metamyelocytes 1 % (0-1); Monocytes 3 % (0-8); Myelocytes 3 % (0-0); Ovalocytes 1+; Tear Drop Cells 1+
[2018-01-31 08:46] LABS: Platelet Estimate Normal (Normal); Platelet Morphology Normal (Normal)
[2018-01-31] MEDS: Acetaminophen 325 MG Tablet PO PRN ×2 (08:46→16:32)
--- NOTE | 2018-01-31 09:35 | P.PNCC ---
Subjective Subjective Remarks/Hospital Course: This 82-year-old gentleman was transferred emergently from the floor to the surgical intensive care unit because of rapid onset combined hypoxemic and hypercapnic respiratory failure. On arrival he has diffuse crackles throughout both lung santizo and his neck veins are distended. On admission several days ago he was dehydrated and had an element of acute kidney injury. His weight is up about 5 kg since admission though his renal function has improved. On arrival he is breathing 40 times a minute on a nonrebreathing mask with pH of 7.18 and P CO2 of 74. His acidosis is purely respiratory and associated with bronchospasm from fluid overload. B natruretic peptide is elevated to greater than 2000. Other pertinent major problems include septic joint drainage and treatment. 01/22: Critical care reconsulted for worsening resp status. On BIPAP with fulkl face mask. CXR with bilat infiltrates/ pulm edema. Reaccumulated rt shoulder collection. After d/w family proceeded with intubation and placed patient on [facility] ventilation. Placed central line. D/W Dr. Mani Sherman who is arranging US guided drainage/ drain placement for shoulder collection. 01/23: Remains sedated, orally intubated on mechanical ventilation. Significant diuresis with 11 L negative over the last 3 days. Awaiting left shoulder percutaneous drainage of collection by interventional radiology today. 1 unit PRBCs ordered as patient has borderline blood pressures with hemoglobin less than 8. 01/24: Sedated, arousable, orally intubated on mechanical ventilation. Tolerating tube feeds. s/p [id number] drain placement in rt shoulder fluid collection on 01/23. 01/25: He had a good trial on spontaneous breathing yesterday. Mechanical ventilation overnight. Started on spontaneous breathing trial this morning at 12/5 and volumes were small. Increased to 15/8 and volumes looked better with each breath. Still producing lots of thick secretions, dark yellow. Unable to extubate due to general weakness and inability to cough numerous secretions. FiO2 reduced to 40% and gas exchange good. Clearly improved respiratory function from yesterday. Tolerating tube feeds well, gastric residuals minimal , remains constipated and will start on milk of magnesia and. 01/26: Right lower lobe nicely reexpanded after 24 hours on APRV. FI02 reduced to 30%. More alert today, will attempt to extubate. Worsening azotemia appears to be prerenal. We will need to give some volume back. General strength and alertness has improved. 01/27: On BiPAP since last evening. Appears comfortable with 100% O2 sat. Awake and alert. On tube feeds via NG tube 01/28: Resting comfortably, On BIPAP overnight. Tolerating facemask during day prn. Tolerating tube feeds. Hgb 7.1 today, 1 unit PRBCs ordered. 01/29: Was on nasal cannula all day. Last night developed worsening respiratory status and tachypnea for which he was placed on BiPAP. Remains on BiPAP this morning and appears comfortable. Chest x-ray this morning shows haziness over right lung field with probable pulmonary edema versus infiltrate. 01/30: Surgery yesterday for bilateral shoulder collections under general anesthesia, tolerated procedure well was subsequently transferred back to the ICU and kept orally intubated on mechanical ventilation overnight. CT chest done yesterday revealed bilateral pleural effusions right greater than left for which CT- guided thoracentesis with pigtail catheter placement being scheduled with IR. 01/31: Remains sedated, orally intubated on mechanical ventilation. Underwent right-sided pigtail catheter placement by IR yesterday with drainage of about 800 cc of pleural fluid. Tolerating tube feeds. Planning CPAP trials today. Evaluated by Dr. Macias from pulmonary yesterday Objective Vital Signs / I&O: Vital Signs 01/30/18 09:33 01/30/18 10:00 01/30/18 10:03 Temperature Pulse Rate 78 77 80 Respiratory Rate Blood Pressure 95/50 L 133/62 Pulse Oximetry 98 99 99 01/30/18 10:33 01/30/18 11:00 01/30/18 11:03 Temperature Pulse Rate 78 77 77 Respiratory Rate Blood Pressure 149/71 H 146/70 H Pulse Oximetry 99 99 99 01/30/18 11:33 01/30/18 11:44 01/30/18 12:00 Temperature Pulse Rate 72 71 Respiratory Rate 14 Blood Pressure 106/58 L Pulse Oximetry 98 99 98 01/30/18 12:03 01/30/18 12:33 01/30/18 13:00 Temperature Pulse Rate 72 73 74 Respiratory Rate Blood Pressure 124/61 131/63 Pulse Oximetry 98 98 99 01/30/18 13:03 01/30/18 13:33 01/30/18 14:00 Temperature Pulse Rate 73 72 73 Respiratory Rate Blood Pressure 113/59 L 117/56 L Pulse Oximetry 99 99 98 01/30/18 14:03 01/30/18 15:00 01/30/18 15:25 Temperature Pulse Rate 68 93 H Respiratory Rate Blood Pressure 108/58 L Pulse Oximetry 98 99 99 01/30/18 15:34 01/30/18 15:35 01/30/18 15:46 Temperature Pulse Rate 85 86 Respiratory Rate 14 Blood Pressure 132/69 138/70 Pulse Oximetry 98 98 96 01/30/18 15:59 01/30/18 16:00 01/30/18 16:06 Temperature 100 F H Pulse Rate 77 76 78 Respiratory Rate Blood Pressure 88/53 L 85/53 L Pulse Oximetry 95 95 96 01/30/18 16:07 01/30/18 16:08 01/30/18 16:12 Temperature Pulse Rate 77 76 74 Respiratory Rate Blood Pressure 85/51 L 87/54 L 87/54 L Pulse Oximetry 96 96 96 01/30/18 16:14 01/30/18 16:16 01/30/18 16:25 Temperature 100 F H Pulse Rate 74 78 73 Respiratory Rate Blood Pressure 108/59 L 155/73 H Pulse Oximetry 97 100 01/30/18 16:49 01/30/18 17:00 01/30/18 18:00 Temperature 100 F H Pulse Rate 81 82 87 Respiratory Rate Blood Pressure 147/64 H 155/68 H 120/55 L Pulse Oximetry 100 100 96 01/30/18 19:00 01/30/18 20:00 01/30/18 20:18 Temperature 98.9 F Pulse Rate 72 78 Respiratory Rate 14 Blood Pressure 106/58 L 169/79 H Pulse Oximetry 99 99 99 01/30/18 20:25 01/30/18 21:00 01/30/18 22:00 Temperature Pulse Rate 79 81 79 Respiratory Rate 14 Blood Pressure 162/63 H 131/67 Pulse Oximetry 99 99 01/30/18 23:00 01/30/18 23:45 01/31/18 00:00 Temperature 99.1 F Pulse Rate 79 81 Respiratory Rate 14 Blood Pressure 136/65 115/61 Pulse Oximetry 98 98 98 01/31/18 01:00 01/31/18 02:00 01/31/18 03:00 Temperature Pulse Rate 75 81 80 Respiratory Rate Blood Pressure 131/60 138/75 150/74 H Pulse Oximetry 97 97 97 01/31/18 04:00 01/31/18 04:28 01/31/18 05:00 Temperature 98.6 F Pulse Rate 80 82 Respiratory Rate 14 Blood Pressure 119/55 L 125/61 Pulse Oximetry 97 98 98 01/31/18 06:00 01/31/18 07:55 01/31/18 09:19 Temperature Pulse Rate 80 Respiratory Rate 15 19 Blood Pressure 128/60 Pulse Oximetry 98 97 92 L Intake & Output 01/30/18 01/31/18 01/31/18 18:59 06:59 18:59 Intake Total 705 / 705 1532 / 1532 Output Total 1999 715 / 715 Balance -1295 / -1295 817 / 817 Weight 77.8 kg Intake: IV 350 / 350 600 / 600 Diprivan 1000 mg/100 ml Inj 1, 100 / 100 200 / 200 000 mg In 100 ml @ 5 MCG/KG/MIN 2.082 mls/hr IV.CONT TITRATE PRN Rx#:[id number] Teflaro Inj 300 MG In NS Inj 200 / 200 100 ML @ 100 mls/hr IV.SIG Q12H CHAYO Rx#:[id number] fentaNYL 10 mcg/mL Premix Drip 250 / 250 2,500 mcg In 250 ml @ 50 MCG/HR 5 mls/hr IV.SIG TITRATE PRN Rx #:[id number] RIFADIN Inj 300 MG In NS Inj 200 / 200 100 ML @ 100 mls/hr IV.SIG Q12H CHAYO Rx#:[id number] Tube Feeding 255 / 255 932 / 932 Tube Irrigant 100 / 100 Output: Pleural Fluid 650 / 650 Urine Amount (Catheter) 1275 / 1275 550 / 550 Indwelling Urethral Catheter 1275 / 1275 550 / 550 Wound Drainage 75 / 75 40 / 40 # 2 Left Shoulder 25 / 25 Left Shoulder 15 / 15 Right Shoulder 50 / 50 25 / 25 Chest Tube Drainage 125 / 125 Right 125 / 125 Other: Date of Last Bowel Movement 01/29/18 01/29/18 # Bowel Movements 0 Result Diagrams: 01/31/18 06:14 01/31/18 06:14 Objective Remarks: General: Sedated, arousable, orally intubated on mechanical ventilation HEENT: Positive pallor, no icterus, oral intubated Neck : Right IJ central line in place Chest/pulm: Orally intubated on mechanical ventilation, air entry decreased bilaterally at bases, scattered rhonchi, no wheezing. Right-sided pigtail catheter in place CVS: S1S2, irregular rhythm Abd: Soft, nontender, bowel sounds present. No guarding. No distention. Ext: Warm bilaterally. Dressing over bilateral shoulder surgical site clean dry and intact. ZOEY drains in place. Trace peripheral edema Neuro: Sedated, arousable, orally intubated on mechanical ventilation. Grossly nonfocal Assessment and Plan - Assessment and Plan Plan: Assessment and Plan: Acute combined hypercapnic and hypoxemic respiratory failure Fluid overload/noncardiogenic Pulmonary edema secondary to sepsis MRSA pneumonia Mucus plugging -BNP elevated -Bronchodilators -diuresed to mobilize fluid -Scott required for BPH as well as diuresis -intubated and placed on mech ventilation on 01/22. -Status post bronchoscopy with BAL on 01/22 with significant mucus plugging noted in the right-sided airways including right mainstem bronchus for which BAL was performed with significant clearing of airway. Bronchial washing sent for Gram stain and cultures. Follow-up chest x-ray post bronchoscopy showed significant improvement in aeration of right lung. -Continue mechanical ventilation, vent bundle. Added Mucomyst to mobilize secretions. -Frequent suctioning required -Overnight on APRV. Lung santizo clear, chest x-ray much improved, extubated . -Required BiPAP on 01/29 and was intubated for bilateral shoulder surgery and remains on mechanical ventilation since 01/[address] chest with bilateral effusions. S/p CT-guided right-sided thoracentesis/ pigtail catheter placement with IR on 01/30. -May need Bronchoscopy after rt thoracentesis depending on CXR review. -Consulted Dr. Jacky Macias for pulmonary per family request. -Daily CPAP trials to decide extubation MRSA septicemia, septic right shoulder, L spine diskitis, left supraclavicular abscess sepsis Right shoulder effusion. septic right shoulder, s/p I&D Urinary tract infection. 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 Taper steroid Blood cultures positive for MRSA. 2D echocardiogram did not show any findings consistent with vegetations. Patient also had a right shoulder effusion, orthopedics aspirated the shoulder - approximately 30 cc of purulent fluid. Orthopedics performed surgery/drainage of bilateral shoulder collections on 01/29 Continue IV antibiotics per infectious disease recommendations. Infectious disease following NM WBC scan 01/18/18 and 01/19/18. Imaging discussed with radiology and it seems patient with multiple focal infections bilateral shoulders, also back at the hardware with diskitis/ osteomyelitis. Neurology, ID, hem onc ff. IR consulted s/p CT-guided drainage of left posterior supraclavicular/posterior chest wall abscess on 01/17/18. s/p US guided drainage of shoulder collection by IR done on 01/23 KEKE on CKD. diuresed, Strict I/O, monitor/ replete electrolytes, follow BUN/ Cr Nephrology following, appreciate recs. Significant fluid removal with diuresis but creatinine increased. prerenal azotemia noted Worsening prerenal azotemia, we were forced to initiate moderate hydration. however in v/o bilateral effusions on CT done on 01/29, resuming lasix to attempt mobilizing fluid CVS Atrial Fibrillation, permanent Noncardiogenic pulmonary edema Hypotension (resolved) Rate well controlled. Recent ECHO EF 65% Dr. Garner following-discussed with Dr. Garner on 01/22. We agreed with diuresing patient for noncardiogenic pulmonary edema while watching renal function/ BP. Diuretics held around 01/26 for worsening renal function and patient placed on gentle hydration. On 01/23 ordered Levophed for pressor support to keep MAP greater than 65mm Hg however has not required pressors. Hold off on further diuresis due to rising creatinine. Lopressor 12 and half milligrams twice daily Lasix 40 mg IV x1 dose ordered on 01/29 for positive fluid balance and worsening respiratory status and diuresis will be continued while watching renal function Anemia 1 unit PRBCs ordered to be transfused on 01/23, 1 unit PRBCs ordered on 01/28 to keep hemoglobin above 8 g%. No overt evidence of blood loss. Follow CBC. Protein calorie malnutrition -Inserted NGT 01/22 following intubation, Continue tube feeds and advance to goal as well tolerated. BPH - Continue Flomax. DVT prophylaxis per surgeon Access: RIJ central line placed 01/22 01/22: D/w Dr. Mani Sherman, D/W [employer]CE [employer], D/W patient's family at bedside. 01/23 D/W patient's daughter at bedside regarding current clinical status and plan of care and they voiced understanding and were agreeable with plan of care. D/W ID-Dr Tom on 01/23 01/24: Discussed with patient's family at bedside regarding current clinical status and plan of care and they voiced understanding. Discussed with ID Dr. Tom, discussed with Dr. Piña. Discussed with F[employer]INTENA[employer]CE WORKER. 01/25: I spoke with patient's daughter at the bedside this morning. We discussed goals for ventilator weaning and nutrition. I spoke with extensive family members later in the day. 01/26: I spoke at length with the patient's daughter this morning and will speak extensively with other family members later today. 01/27: I spoke with patient's family member at bedside regarding his respiratory status and plan of care and he voiced understanding. Will come back and update other family members later. 01/28: I updated family regarding plan of care. 01/29: Update multiple family members regarding clinical status including borderline respiratory status requiring BiPAP. Patient scheduled for surgery which was also discussed. I explained that patient will probably remain on mechanical ventilation postoperatively until improvement in respiratory status. 01/30: Treated patient's family regarding current clinical status including plan of care. Discussed need for thoracentesis and pigtail catheter placement for right effusion and possible need for bronchoscopy/BAL. They voiced understanding and were agreeable with plan of care. Discussed with Dr. Tom , discussed with Dr. Jacky Macias from pulmonary who was consulted as well for further evaluation of respiratory failure. 01/31: Discussed with patient's daughter at bedside regarding current clinical status and plan of care and she voiced understanding and was agreeable. Condition critical Time spent on critical care excluding procedures 45-minute
--- NOTE | 2018-01-31 10:47 | P.PNID ---
Subjective Remarks: On vent sputum non purulent and with nl resp cecilia He spiked to 102 this am and cont to have fevers in 101 range Sp thoracocenthesis - clear, cw transsudate He is on low dose of levaphed 5 mcgs Antibiotics: vanco teflaro rifampin meropenem stopped omn 01/23 Lines: Line sites with no e.o infection Past Medical History: reviewed Allergies/Adverse Reactions: Allergies amoxicillin Allergy (Severe, Verified 01/13/18 20:44) Hives Objective Vital Signs 01/30/18 11:00 01/30/18 11:03 01/30/18 11:33 Temperature Pulse Rate 77 77 72 Respiratory Rate Blood Pressure 146/70 H 106/58 L Pulse Oximetry 99 99 98 01/30/18 11:44 01/30/18 12:00 01/30/18 12:03 Temperature Pulse Rate 71 72 Respiratory Rate 14 Blood Pressure 124/61 Pulse Oximetry 99 98 98 01/30/18 12:33 01/30/18 13:00 01/30/18 13:03 Temperature Pulse Rate 73 74 73 Respiratory Rate Blood Pressure 131/63 113/59 L Pulse Oximetry 98 99 99 01/30/18 13:33 01/30/18 14:00 01/30/18 14:03 Temperature Pulse Rate 72 73 68 Respiratory Rate Blood Pressure 117/56 L 108/58 L Pulse Oximetry 99 98 98 01/30/18 15:00 01/30/18 15:25 01/30/18 15:34 Temperature Pulse Rate 93 H 85 Respiratory Rate Blood Pressure 132/69 Pulse Oximetry 99 99 98 01/30/18 15:35 01/30/18 15:46 01/30/18 15:59 Temperature 100 F H Pulse Rate 86 77 Respiratory Rate 14 Blood Pressure 138/70 88/53 L Pulse Oximetry 98 96 95 01/30/18 16:00 01/30/18 16:06 01/30/18 16:07 Temperature Pulse Rate 76 78 77 Respiratory Rate Blood Pressure 85/53 L 85/51 L Pulse Oximetry 95 96 96 01/30/18 16:08 01/30/18 16:12 01/30/18 16:14 Temperature Pulse Rate 76 74 74 Respiratory Rate Blood Pressure 87/54 L 87/54 L 108/59 L Pulse Oximetry 96 96 97 01/30/18 16:16 01/30/18 16:25 01/30/18 16:49 Temperature 100 F H Pulse Rate 78 73 81 Respiratory Rate Blood Pressure 155/73 H 147/64 H Pulse Oximetry 100 100 01/30/18 17:00 01/30/18 18:00 01/30/18 19:00 Temperature 100 F H Pulse Rate 82 87 72 Respiratory Rate Blood Pressure 155/68 H 120/55 L 106/58 L Pulse Oximetry 100 96 99 01/30/18 20:00 01/30/18 20:18 01/30/18 20:25 Temperature 98.9 F Pulse Rate 78 79 Respiratory Rate 14 14 Blood Pressure 169/79 H Pulse Oximetry 99 99 01/30/18 21:00 01/30/18 22:00 01/30/18 23:00 Temperature Pulse Rate 81 79 79 Respiratory Rate Blood Pressure 162/63 H 131/67 136/65 Pulse Oximetry 99 99 98 01/30/18 23:45 01/31/18 00:00 01/31/18 01:00 Temperature 99.1 F Pulse Rate 81 75 Respiratory Rate 14 Blood Pressure 115/61 131/60 Pulse Oximetry 98 98 97 01/31/18 02:00 01/31/18 03:00 01/31/18 04:00 Temperature 98.6 F Pulse Rate 81 80 80 Respiratory Rate Blood Pressure 138/75 150/74 H 119/55 L Pulse Oximetry 97 97 97 01/31/18 04:28 01/31/18 05:00 01/31/18 06:00 Temperature Pulse Rate 82 80 Respiratory Rate 14 Blood Pressure 125/61 128/60 Pulse Oximetry 98 98 98 01/31/18 07:00 01/31/18 07:55 01/31/18 08:00 Temperature 102.6 F H Pulse Rate 85 83 Respiratory Rate 15 Blood Pressure 138/63 145/67 H Pulse Oximetry 99 97 96 01/31/18 08:53 01/31/18 08:54 01/31/18 09:00 Temperature Pulse Rate 91 H 91 H 84 Respiratory Rate Blood Pressure 192/83 H 161/69 H 162/63 H Pulse Oximetry 96 95 95 01/31/18 09:19 18 09:20 01/31/18 10:00 Temperature 102.3 F H Pulse Rate 80 77 76 Respiratory Rate 19 Blood Pressure 86/47 L 114/56 L 119/59 L Pulse Oximetry 93 L 93 L 95 01/31/18 10:15 Temperature Pulse Rate Respiratory Rate 17 Blood Pressure Pulse Oximetry 94 L Intake & Output 01/30/18 01/31/18 01/31/18 18:59 06:59 18:59 Intake Total 705 / 705 1532 / 1532 Output Total 1999 715 / 715 Balance -1295 / -1295 817 / 817 Weight 77.8 kg Intake: IV 350 / 350 600 / 600 Diprivan 1000 mg/100 ml Inj 1, 100 / 100 200 / 200 000 mg In 100 ml @ 5 MCG/KG/MIN 2.082 mls/hr IV.CONT TITRATE PRN Rx#:[id number] Teflaro Inj 300 MG In NS Inj 200 / 200 100 ML @ 100 mls/hr IV.SIG Q12H CHAYO Rx#:[id number] fentaNYL 10 mcg/mL Premix Drip 250 / 250 2,500 mcg In 250 ml @ 50 MCG/HR 5 mls/hr IV.SIG TITRATE PRN Rx #:[id number] RIFADIN Inj 300 MG In NS Inj 200 / 200 100 ML @ 100 mls/hr IV.SIG Q12H CHAYO Rx#:[id number] Tube Feeding 255 / 255 932 / 932 Tube Irrigant 100 / 100 Output: Pleural Fluid 650 / 650 Urine Amount (Catheter) 1275 / 1275 550 / 550 Indwelling Urethral Catheter 1275 / 1275 550 / 550 Wound Drainage 75 / 75 40 / 40 # 2 Left Shoulder 25 / 25 Left Shoulder 15 / 15 Right Shoulder 50 / 50 25 / 25 Chest Tube Drainage 125 / 125 Right 125 / 125 Other: Date of Last Bowel Movement 01/29/18 01/29/18 # Bowel Movements 0 01/30/18 15:00 Fluid - Pleural fluid Gram Stain - Final 01/30/18 15:00 Fluid - Pleural fluid Body Fluid Culture - Pending 01/29/18 17:00 Sputum - Endotracheal Gram Stain - Final 01/29/18 17:00 Sputum - Endotracheal Sputum Culture - Final Light growth normal respiratory cecilia 01/30/18 15:00 Fluid - Pleural fluid Fungal Smear - Pending 01/30/18 15:00 Fluid - Pleural fluid Fungal Culture - Pending 01/29/18 14:11 Wound - Shoulder Gram Stain - Final 01/29/18 14:11 Wound - Shoulder Wound Culture - Preliminary No growth in 24 hours 01/29/18 14:10 Wound - Shoulder Gram Stain - Final 01/29/18 14:10 Wound - Shoulder Wound Culture - Preliminary No growth in 24 hours 01/29/18 13:59 Wound - Shoulder Gram Stain - Final 01/29/18 13:59 Wound - Shoulder Wound Culture - Preliminary No growth in 24 hours 01/29/18 13:58 Wound - Shoulder Gram Stain - Final 01/29/18 13:58 Wound - Shoulder Wound Culture - Preliminary No growth in 24 hours 01/25/18 10:40 Blood - Peripheral Aerobic Blood Culture - Final No growth in 5 days 01/25/18 10:40 Blood - Peripheral Anaerobic Blood Culture - Final No growth in 5 days 01/25/18 10:52 Blood - Peripheral Aerobic Blood Culture - Final No growth in 5 days 01/25/18 10:52 Blood - Peripheral Anaerobic Blood Culture - Final No growth in 5 days 01/29/18 14:11 Wound - Shoulder Fungal Smear - Final No fungal elements seen 01/29/18 14:11 Wound - Shoulder Fungal Culture - Pending 01/29/18 14:10 Wound - Shoulder Fungal Smear - Final No fungal elements seen 01/29/18 14:10 Wound - Shoulder Fungal Culture - Pending 01/29/18 13:59 Wound - Shoulder Fungal Smear - Final No fungal elements seen 01/29/18 13:59 Wound - Shoulder Fungal Culture - Pending 01/29/18 13:58 Wound - Shoulder Fungal Smear - Final No fungal elements seen 01/29/18 13:58 Wound - Shoulder Fungal Culture - Pending 01/29/18 14:11 Wound - Shoulder Acid Fast Bacilli Smear - Pending 01/29/18 14:11 Wound - Shoulder Mycobacterial Culture - Pending 01/29/18 14:10 Wound - Shoulder Acid Fast Bacilli Smear - Pending 01/29/18 14:10 Wound - Shoulder Mycobacterial Culture - Pending 01/29/18 13:59 Wound - Shoulder Acid Fast Bacilli Smear - Pending 01/29/18 13:59 Wound - Shoulder Mycobacterial Culture - Pending 01/29/18 13:58 Wound - Shoulder Acid Fast Bacilli Smear - Pending 01/29/18 13:58 Wound - Shoulder Mycobacterial Culture - Pending 01/15/18 18:25 Wound - Shoulder Fungal Smear - Final No fungal elements seen 01/15/18 18:25 Wound - Shoulder Fungal Culture - Preliminary No growth in 2 weeks 01/15/18 18:25 Wound - Shoulder Acid Fast Bacilli Smear - Final No acid fast bacilli seen 01/15/18 18:25 Wound - Shoulder Mycobacterial Culture - Preliminary No growth in 2 weeks 01/15/18 18:25 Wound - Shoulder Fungal Smear - Final No fungal elements seen 01/15/18 18:25 Wound - Shoulder Fungal Culture - Preliminary No growth in 2 weeks 01/15/18 18:25 Wound - Shoulder Acid Fast Bacilli Smear - Final No acid fast bacilli seen 01/15/18 18:25 Wound - Shoulder Mycobacterial Culture - Preliminary No growth in 2 weeks 01/24/18 16:30 Fluid - Other Gram Stain - Final 01/24/18 16:30 Fluid - Other Body Fluid Culture - Final S. aureus MRSA Lab - Hematology Results 01/30/18 01/30/18 01/31/18 04:20 17:30 06:14 WBC 8.0 8.5 7.3 RBC 3.00 L 3.09 L 2.92 L Hgb 8.2 L 8.7 L 8.2 L Hct 25.3 L 25.8 L 24.3 L MCV 84.5 83.4 83.3 MCH 27.5 28.1 28.1 MCHC 32.5 33.7 33.8 RDW 18.9 H 19.4 H 19.9 H Plt Count 174 187 174 MPV 8.7 9.2 8.8 Prelim Diff (Auto) Slide review pending Slide review pending Neut % (Auto) 87.9 H 90.1 H Lymph % (Auto) 8.1 L 6.8 L [place] % (Auto) 2.7 2.1 Eos % (Auto) 1.0 0.9 Baso % (Auto) 0.3 0.1 Neut # (Auto) 7.0 6.6 Lymph # (Auto) 0.6 L 0.5 L [place] # (Auto) 0.2 0.2 Eos # (Auto) 0.1 0.1 Baso # (Auto) 0.0 0.0 WBC Differential Manual diff final Manual diff final Seg Neuts % (Manual) 78 H 79 H Band Neuts % (Manual) 11 H 9 H Lymphocytes % (Manual) 8 L 4 L Monocytes % (Manual) 2 3 Eosinophils % (Manual) 1 Basophils % (Manual) 1 Metamyelocytes % (Man) 1 Myelocytes % (Man) 3 H Abs Neuts (Manual) 7.1 6.7 Differential Comment . . Platelet Estimate Normal Normal Platelet Morphology Normal Normal Tear Drop Cells 1+ H Ovalocytes 1+ H Lab - Chemistry Results 01/30/18 01/30/18 01/30/18 04:20 17:30 17:30 Sodium 142 140 Potassium 3.5 3.5 Chloride 109 H 108 H Carbon Dioxide 24.3 25.9 Anion Gap 9 6 BUN 52 H 52 H Creatinine 1.74 H 1.82 H Estimated GFR 38 L 36 L Random Glucose 83 151 H Lactic Acid 0.8 Calcium 8.4 L 8.4 L Magnesium 2.2 Total Bilirubin 1.5 H AST 6 L ALT 8 L Alkaline Phosphatase 124 H Troponin I Total Protein 5.0 L Albumin 2.0 L 01/30/18 01/31/18 17:30 06:14 Sodium 140 Potassium 3.5 Chloride 108 H Carbon Dioxide 23.5 Anion Gap 9 BUN 49 H Creatinine 1.87 H Estimated GFR 35 L Random Glucose 248 H Lactic Acid Calcium 7.5 L D Magnesium Total Bilirubin 1.2 H AST 9 L ALT 7 L Alkaline Phosphatase 201 H Troponin I Less than 0.02 L Total Protein 4.9 L Albumin 1.7 L Imaging: ITS Impressions Abdomen/Pelvis CT 01/13/18 20:43 CONCLUSION: 1. Marked prostate enlargement. 2. Air-filled distention of sigmoid colon. 3. Cardiomegaly. Small bilateral pleural effusions. 4. Diffuse atherosclerotic disease and arterial calcification. 5. Old insufficiency type fractures of the left side of the sacrum and left- sided pubic rami. Cervical Spine MRI 01/14/18 00:00 CONCLUSION: 1. Examination is degraded by motion artifact. 2. Partial visualization of a mass involving the left supraclavicular region measuring 5.[address] scan of the soft tissues of the neck with IV contrast to further assess if the patient can't hold still for that exam. 3. Diffuse degenerative changes as detailed at each level in the above discussion. Head MRI 01/14/18 00:00 CONCLUSION: 1. No acute intracranial abnormality. 2. Encephalomalacia involving the left frontal lobe. Thoracic Spine MRI 01/14/18 00:00 CONCLUSION: 1. See the MRI of the cervical spine reported separately. 2. Orthopedic hardware at the thoracolumbar junction. 3. Patent central canal throughout. Head CT 01/14/18 00:31 CONCLUSION: 1. No acute intracranial findings. 2. 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 . Venous Doppler Study 01/14/18 09:20 CONCLUSION: 1. The study is negative for lower extremity deep venous thrombosis. Soft Tissue Neck CT 01/16/18 00:00 CONCLUSION: 1. Partially visualized fluid and gas collection deep to the left trapezius muscle in the posterior lower neck extending into the posterior thorax. Chest CT with contrast could be performed to image the remainder of the abnormality. Differential diagnosis includes abscess and hematoma. 2. Degenerative findings of the cervical spine. Abscess Drainage CT 01/17/18 00:00 CONCLUSION: 1. Uncomplicated CT guided drainage, as above. WBC Scan Nuclear Medicine 01/18/18 00:00 CONCLUSION: 1. Multiple areas of abnormal uptake including at the upper lumbar spine around the upper left surgical hardware and at the L1-2 disc level. 2. Abnormal activity around the clip joints bilaterally being more prominent on the right. 3. Abnormal activity in the right C2-3 facet and the left C7-T1 facet. 4. Small area of signal abnormality in the posterior right sacroiliac joint region separate from surgical hardware. 5. All these areas are concerning for active infection. Shoulder X-Ray 01/21/18 00:00 CONCLUSION: Unusual positioning of the shoulder but I do not see any obvious displaced fracture of the shoulder. There is a healing third rib fracture and healing seventh rib fracture. Upper Extremity Ultrasound 01/22/18 00:00 CONCLUSION: 1. Lateral right shoulder subcutaneous complex fluid collection concerning for abscess. This is amenable to percutaneous drainage. Abscess Drainage Ultrasound 01/23/18 00:00 CONCLUSION: 1. Uncomplicated ultrasound-guided drainage catheter placement in complex inferolateral right shoulder fluid collection. Lumbar Spine MRI 01/23/18 00:00 CONCLUSION: Little or no change from previous exam. Nothing to suggest abscess Pelvis MRI 01/23/18 00:00 CONCLUSION: 1. Diffuse skin thickening and subcutaneous edema suggestive of cellulitis involving the left buttock without underlying abscess formation. 2. Rectosigmoid colon is distended with fecal debris suggestive of fecal impaction. Clinical correlation is recommended. 3. Markedly enlarged prostate. 4. Degenerative changes and scoliosis of the visualized lower lumbar spine are noted. 5. Bony changes involving the left sacrum likely representing old healed insufficiency fractures. Shoulder MRI 01/23/18 00:00 CONCLUSION: 1. Chronic complete rotator cuff tear. 2. Moderate joint fluid Abscess Drainage 01/24/18 15:37 CONCLUSION: 1. Uncomplicated percutaneous placement of drainage catheter in left shoulder. Chest CT 01/29/18 15:28 CONCLUSION: 1. Interval increase in the amount of pleural effusions bilaterally. Findings have been discussed with Dr. Tom on today's date. Thoracentesis CT 01/30/18 00:00 CONCLUSION: 1. Uncomplicated CT-guided right-sided chest tube placement. Chest X-Ray 01/31/18 05:00 Right jugular line tip overlies expected location of the right atrium. There is patchy airspace disease identified as before greatest in the left lower lobe. Cardiomegaly is noted. Small left effusion not excluded. Enteric tube courses off the inferior margin of the film. Endotracheal tube tip terminates 2.5 cm above the karan. CONCLUSION: Stable appearance of the chest. Physical Exam: GENERAL: on vent SKIN: Warm and dry. No rash HEAD: Atraumatic. Normocephalic. EYES: Pupils equal and round. No scleral icterus. No injection or drainage. ENT: No nasal bleeding or discharge. Mucous membranes pink and moist. NECK: Trachea midline. No JVD. No palpable masses, but diffuse pain CARDIOVASCULAR: Regular rate and rhythm. nO murmurs RESPIRATORY: No accessory muscle use. R sided CT in place clear serous fluid GASTROINTESTINAL: Abdomen soft, non-tender, mildly distended. Hepatic and splenic margins not palpable. MUSCULOSKELETAL: Extremities without clubbing, cyanosis, no signioficant edema. No obvious deformities. b/l shoulders with dressing on place : [place] in, clear ivette coloured urine NEUROLOGICAL: sedated PSYCHIATRIC: unable to assess Assessment and Plan - Plan High grade staph bacteremia. MRSA 2 D echo neg R shoulder effusion , cw R shoulder septic arhtritis (MRSA)-post I&D. . 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
[2018-01-31] MEDS: Aztreonam Inj 2 GM in Sodium Chloride 0.9% Inj 100 ML IV.SIG SCH ×3 (12:52→23:57)
[2018-01-31] MEDS: Micafungin Inj 150 MG in Sodium Chlor 0.9% Inj 100 ML IV.SIG SCH (12:53)
--- NOTE | 2018-01-31 12:54 | P.PNOP ---
Subjective Interval history: Patient resting comfortably in bed with mild sedation. Patient placed on CPAP. Patient's family states he was running a fever this morning. Physical Exam Vital signs: Vital Signs 01/30/18 13:00 01/30/18 13:03 01/30/18 13:33 Temperature Pulse Rate 74 73 72 Respiratory Rate Blood Pressure 113/59 L 117/56 L Pulse Oximetry 99 99 99 01/30/18 14:00 01/30/18 14:03 01/30/18 15:00 Temperature Pulse Rate 73 68 93 H Respiratory Rate Blood Pressure 108/58 L Pulse Oximetry 98 98 99 01/30/18 15:25 01/30/18 15:34 01/30/18 15:35 Temperature Pulse Rate 85 86 Respiratory Rate Blood Pressure 132/69 138/70 Pulse Oximetry 99 98 98 01/30/18 15:46 01/30/18 15:59 01/30/18 16:00 Temperature 100 F H Pulse Rate 77 76 Respiratory Rate 14 Blood Pressure 88/53 L Pulse Oximetry 96 95 95 01/30/18 16:06 01/30/18 16:07 01/30/18 16:08 Temperature Pulse Rate 78 77 76 Respiratory Rate Blood Pressure 85/53 L 85/51 L 87/54 L Pulse Oximetry 96 96 96 01/30/18 16:12 01/30/18 16:14 01/30/18 16:16 Temperature 100 F H Pulse Rate 74 74 78 Respiratory Rate Blood Pressure 87/54 L 108/59 L Pulse Oximetry 96 97 01/30/18 16:25 01/30/18 16:49 01/30/18 17:00 Temperature 100 F H Pulse Rate 73 81 82 Respiratory Rate Blood Pressure 155/73 H 147/64 H 155/68 H Pulse Oximetry 100 100 100 01/30/18 18:00 01/30/18 19:00 01/30/18 20:00 Temperature 98.9 F Pulse Rate 87 72 78 Respiratory Rate Blood Pressure 120/55 L 106/58 L 169/79 H Pulse Oximetry 96 99 99 01/30/18 20:18 18 20:25 01/30/18 21:00 Temperature Pulse Rate 79 81 Respiratory Rate 14 14 Blood Pressure 162/63 H Pulse Oximetry 99 99 01/30/18 22:00 01/30/18 23:00 01/30/18 23:45 Temperature Pulse Rate 79 79 Respiratory Rate 14 Blood Pressure 131/67 136/65 Pulse Oximetry 99 98 98 01/31/18 00:00 01/31/18 01:00 01/31/18 02:00 Temperature 99.1 F Pulse Rate 81 75 81 Respiratory Rate Blood Pressure 115/61 131/60 138/75 Pulse Oximetry 98 97 97 01/31/18 03:00 01/31/18 04:00 01/31/18 04:28 Temperature 98.6 F Pulse Rate 80 80 Respiratory Rate 14 Blood Pressure 150/74 H 119/55 L Pulse Oximetry 97 97 98 01/31/18 05:00 01/31/18 06:00 01/31/18 07:00 Temperature 102.6 F H Pulse Rate 82 80 85 Respiratory Rate Blood Pressure 125/61 128/60 138/63 Pulse Oximetry 98 98 99 01/31/18 07:55 01/31/18 08:00 01/31/18 08:53 Temperature Pulse Rate 83 91 H Respiratory Rate 15 Blood Pressure 145/67 H 192/83 H Pulse Oximetry 97 96 96 01/31/18 08:54 01/31/18 09:00 01/31/18 09:19 Temperature Pulse Rate 91 H 84 80 Respiratory Rate 19 Blood Pressure 161/69 H 162/63 H 86/47 L Pulse Oximetry 95 95 93 L 01/31/18 09:20 01/31/18 10:00 01/31/18 10:15 Temperature 102.3 F H Pulse Rate 77 76 Respiratory Rate 17 Blood Pressure 114/56 L 119/59 L Pulse Oximetry 93 L 95 94 L 01/31/18 10:57 01/31/18 11:00 01/31/18 11:02 Temperature 101.3 F H Pulse Rate 86 89 Respiratory Rate 14 Blood Pressure 195/70 H 141/63 H Pulse Oximetry 94 L 93 L 89 L Intake & Output 01/30/18 01/31/18 01/31/18 18:59 06:59 18:59 Intake Total 705 / 705 1532 / 1532 Output Total 1999 715 / 715 Balance -1295 / -1295 817 / 817 Weight 77.8 kg Intake: IV 350 / 350 600 / 600 Diprivan 1000 mg/100 ml Inj 1, 100 / 100 200 / 200 000 mg In 100 ml @ 5 MCG/KG/MIN 2.082 mls/hr IV.CONT TITRATE PRN Rx#:[id number] Teflaro Inj 300 MG In NS Inj 200 / 200 100 ML @ 100 mls/hr IV.SIG Q12H [facility] Rx#:[id number] fentaNYL 10 mcg/mL Premix Drip 250 / 250 2,500 mcg In 250 ml @ 50 MCG/HR 5 mls/hr IV.SIG TITRATE PRN Rx #:[id number] RIFADIN Inj 300 MG In NS Inj 200 / 200 100 ML @ 100 mls/hr IV.SIG Q12H [facility] Rx#:[id number] Tube Feeding 255 / 255 932 / 932 Tube Irrigant 100 / 100 Output: Pleural Fluid 650 / 650 Urine Amount (Catheter) 1275 / 1275 550 / 550 Indwelling Urethral Catheter 1275 / 1275 550 / 550 Wound Drainage 75 / 75 40 / 40 # 2 Left Shoulder 25 / 25 Left Shoulder 15 / 15 Right Shoulder 50 / 50 25 / 25 Chest Tube Drainage 125 / 125 Right 125 / 125 Other: Date of Last Bowel Movement 01/29/18 01/29/18 01/29/18 # Bowel Movements 0 Narrative: Patient mildly sedated on ventilator. Right and left shoulder dressing is clean , dry, and intact. Bilateral drains are intact with small to moderate serosanguineous drainage (right shoulder 75 cc in 24-hour period and left shoulder 40 cc in 24-hour period. There is no erythema to the right shoulder. Patient has 2+ radial and pedal pulses. Extremities and skin are warm and dry. - Urinary Catheter Management Condom Cath placed during this visit: no Indwelling Urethral Catheter Cath placed during this visit: yes Reason for continuing: Hourly intake/output Insertion date: 01/20/18 Insertion time: 11:30 Results - Labs CBC & Chem 7: 01/31/18 06:14 01/31/18 06:14 Laboratory Results - last 24 hr 01/30/18 01/30/18 01/30/18 15:00 15:00 16:42 WBC RBC Hgb Hct MCV MCH MCHC RDW Plt Count MPV Prelim Diff (Auto) Neut % (Auto) Lymph % (Auto) Payne % (Auto) Eos % (Auto) Baso % (Auto) Neut # (Auto) Lymph # (Auto) Payne # (Auto) Eos # (Auto) Baso # (Auto) WBC Differential Seg Neuts % (Manual) Band Neuts % (Manual) Lymphocytes % (Manual) Monocytes % (Manual) Eosinophils % (Manual) Metamyelocytes % (Man) Myelocytes % (Man) Abs Neuts (Manual) Differential Comment Platelet Estimate Platelet Morphology Tear Drop Cells Ovalocytes Puncture Site Art line Patient Temperature 98.6 O2 Saturation 96 ABG pH 7.41 ABG pCO2 38 ABG pO2 115 ABG HCO3 24 ABG O2 Content 11.8 L ABG Base Excess -0.6 ABG Methemoglobin 1.6 Hemoglobin 8.6 L Carboxyhemoglobin 1.2 O2 Delivery Device Ventilator Vent Setting Ac,[id number] Inspired O2 45 Critical Value No Sodium Potassium Chloride Carbon Dioxide Anion Gap BUN Creatinine Estimated GFR Random Glucose Lactic Acid Calcium Total Bilirubin AST ALT Alkaline Phosphatase Troponin I Total Protein Albumin Pleural pH 8.0 Pleural RBC 452 H Pleural Nuc Cells 89 H Pleural Neutrophils 10 Pleural Lymphocytes 47 Pleural Monocytes 38 Pleural Histocytes 2 Pleural Mesothelial 3 Pleural Total Protein 2.4 Pleural LDH 97 Pleural Glucose 95 Random Vancomycin 01/30/18 01/30/18 01/30/18 17:30 17:30 17:30 WBC 8.5 RBC 3.09 L Hgb 8.7 L Hct 25.8 L MCV 83.4 MCH 28.1 MCHC 33.7 RDW 19.4 H Plt Count 187 MPV 9.2 Prelim Diff (Auto) Neut % (Auto) Lymph % (Auto) Payne % (Auto) Eos % (Auto) Baso % (Auto) Neut # (Auto) Lymph # (Auto) Payne # (Auto) Eos # (Auto) Baso # (Auto) WBC Differential Seg Neuts % (Manual) Band Neuts % (Manual) Lymphocytes % (Manual) Monocytes % (Manual) Eosinophils % (Manual) Metamyelocytes % (Man) Myelocytes % (Man) Abs Neuts (Manual) Differential Comment Platelet Estimate Platelet Morphology Tear Drop Cells Ovalocytes Puncture Site Patient Temperature O2 Saturation ABG pH ABG pCO2 ABG pO2 ABG HCO3 ABG O2 Content ABG Base Excess ABG Methemoglobin Hemoglobin Carboxyhemoglobin O2 Delivery Device Vent Setting Inspired O2 Critical Value Sodium 140 Potassium 3.5 Chloride 108 H Carbon Dioxide 25.9 Anion Gap 6 BUN 52 H Creatinine 1.82 H Estimated GFR 36 L Random Glucose 151 H Lactic Acid 0.8 Calcium 8.4 L Total Bilirubin 1.5 H AST 6 L ALT 8 L Alkaline Phosphatase 124 H Troponin I Total Protein 5.0 L Albumin 2.0 L Pleural pH Pleural RBC Pleural Nuc Cells Pleural Neutrophils Pleural Lymphocytes Pleural Monocytes Pleural Histocytes Pleural Mesothelial Pleural Total Protein Pleural LDH Pleural Glucose Random Vancomycin 01/30/18 01/31/18 01/31/18 17:30 06:14 06:14 WBC 7.3 RBC 2.92 L Hgb 8.2 L Hct 24.3 L MCV 83.3 MCH 28.1 MCHC 33.8 RDW 19.9 H Plt Count 174 MPV 8.8 Prelim Diff (Auto) Slide review pending Neut % (Auto) 90.1 H Lymph % (Auto) 6.8 L Payne % (Auto) 2.1 Eos % (Auto) 0.9 Baso % (Auto) 0.1 Neut # (Auto) 6.6 Lymph # (Auto) 0.5 L Payne # (Auto) 0.2 Eos # (Auto) 0.1 Baso # (Auto) 0.0 WBC Differential Manual diff final Seg Neuts % (Manual) 79 H Band Neuts % (Manual) 9 H Lymphocytes % (Manual) 4 L Monocytes % (Manual) 3 Eosinophils % (Manual) 1 Metamyelocytes % (Man) 1 Myelocytes % (Man) 3 H Abs Neuts (Manual) 6.7 Differential Comment . Platelet Estimate Normal Platelet Morphology Normal Tear Drop Cells 1+ H Ovalocytes 1+ H Puncture Site Patient Temperature O2 Saturation ABG pH ABG pCO2 ABG pO2 ABG HCO3 ABG O2 Content ABG Base Excess ABG Methemoglobin Hemoglobin Carboxyhemoglobin O2 Delivery Device Vent Setting Inspired O2 Critical Value Sodium 140 Potassium 3.5 Chloride 108 H Carbon Dioxide 23.5 Anion Gap 9 BUN 49 H Creatinine 1.87 H Estimated GFR 35 L Random Glucose 248 H Lactic Acid Calcium 7.5 L D Total Bilirubin 1.2 H AST 9 L ALT 7 L Alkaline Phosphatase 201 H Troponin I Less than 0.02 L Total Protein 4.9 L Albumin 1.7 L Pleural pH Pleural RBC Pleural Nuc Cells Pleural Neutrophils Pleural Lymphocytes Pleural Monocytes Pleural Histocytes Pleural Mesothelial Pleural Total Protein Pleural LDH Pleural Glucose Random Vancomycin 20.6 Microbiology 01/30/18 15:00 Fluid - Pleural fluid Gram Stain - Final 01/30/18 15:00 Fluid - Pleural fluid Body Fluid Culture - Preliminary No growth in 24 hours 01/30/18 15:00 Fluid - Pleural fluid Fungal Smear - Final No fungal elements seen 01/29/18 14:11 Wound - Shoulder Gram Stain - Final 01/29/18 14:11 Wound - Shoulder Wound Culture - Preliminary No growth in 48 hours 01/29/18 14:10 Wound - Shoulder Gram Stain - Final 01/29/18 14:10 Wound - Shoulder Wound Culture - Preliminary No growth in 48 hours 01/29/18 13:59 Wound - Shoulder Gram Stain - Final 01/29/18 13:59 Wound - Shoulder Wound Culture - Preliminary No growth in 48 hours 01/29/18 13:58 Wound - Shoulder Gram Stain - Final 01/29/18 13:58 Wound - Shoulder Wound Culture - Preliminary No growth in 48 hours 01/29/18 17:00 Sputum - Endotracheal Gram Stain - Final 01/29/18 17:00 Sputum - Endotracheal Sputum Culture - Final Light growth normal respiratory cecilia 01/25/18 10:40 Blood - Peripheral Aerobic Blood Culture - Final No growth in 5 days 01/25/18 10:40 Blood - Peripheral Anaerobic Blood Culture - Final No growth in 5 days 01/25/18 10:52 Blood - Peripheral Aerobic Blood Culture - Final No growth in 5 days 01/25/18 10:52 Blood - Peripheral Anaerobic Blood Culture - Final No growth in 5 days 01/29/18 14:11 Wound - Shoulder Fungal Smear - Final No fungal elements seen 01/29/18 14:10 Wound - Shoulder Fungal Smear - Final No fungal elements seen 01/29/18 13:59 Wound - Shoulder Fungal Smear - Final No fungal elements seen 01/29/18 13:58 Wound - Shoulder Fungal Smear - Final No fungal elements seen - Imaging Impressions Chest X-Ray 01/30/18 00:00 CONCLUSION: No evidence of pneumothorax following thoracentesis. Thoracentesis CT 01/30/18 00:00 CONCLUSION: 1. Uncomplicated CT-guided right-sided chest tube placement. Chest X-Ray 01/31/18 05:00 Right jugular line tip overlies expected location of the right atrium. There is patchy airspace disease identified as before greatest in the left lower lobe. Cardiomegaly is noted. Small left effusion not excluded. Enteric tube courses off the inferior margin of the film. Endotracheal tube tip terminates 2.5 cm above the karan. CONCLUSION: Stable appearance of the chest. Assessment and Plan - Assessment and Plan Abscess right shoulder. 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 Surgery: Right shoulder arthrotomy with irrigation and drain placement (2017) Right shoulder arthrotomy with irrigation and drain placement (01/29/2018) Left shoulder arthrotomy with irrigation and drain placement (2017) PLAN: 1. IV antibiotics per infectious disease. Intraoperative cultures taken of both shoulders. Previous cultures show MRSA. We are awaiting current intraoperative culture results. 48 hour CX are showing no growth. 2. Source of sepsis likely from a history of previous MRSA from lumbar spine. Possible indolent infection that has developed an abscess of the bilateral shoulders. We will defer to neurosurgery and other specialists for overall management of lumbar spine. Current plan is to remain conservative and forego removal of hardware from the lumbar spine which is likely the source of his ongoing infection. 3. Recent bronchoscope performed showing mucous plugs as well as MRSA. Patient reintubated for surgery and remains on ventilator at this time. Working to DC vent possibly today. 4. Maintain dressings and drains. Drains will be pulled when overall output is minimal. (75 cc output right, 40 cc output left in 24 hour period). 5. Surgery for the bilateral shoulders went well. Findings during surgery shows overall improvement, particularly with the right shoulder. 6. Ortho will continue to follow.
[2018-01-31 14:31] LABS: Amorphous Sediment,Urine Few /hpf; Bacteria,Urine Many /hpf; Bilirubin,Urine Negative (Negative); Clarity,Urine Turbid (Clear); Color,Urine Yellow (Yellw/Straw); Glucose,Urine (UA) Negative (Negative); Leukocyte Esterase,Urine Small (Negative); Mucus,Urine Many /lpf (Occasional); Nitrite,Urine Negative (Negative); Specific Gravity,Urine 1.009 (1.002-1.035); Squamous Epithelial Cell,Urine 8 /hpf (0-5)
--- NOTE | 2018-01-31 14:46 | ECG ---
Date Performed: 01/30/2018 Time Performed: 17:55:16 PTAGE: 82 years EKG: Atrial fibrillation. Possible anteroseptal infarct - age undetermined Inferior/lateral T wa ve changes are nonspecific Low QRS voltages in limb leads Abnormal ECG PREVIOUS TRACING : 01/21/2018 10.29 Since previous tracing, no significant change noted DOCTOR: Geoff Beltre Interpretating Date/Time 01/31/2018 14:44:53
[2018-01-31] MEDS: Dextrose 5% in Water Inj 1,000 ML IV.CONT SCH (15:25)
[2018-01-31] MEDS ORDERED: Midazolam Inj 5 MG/ML 1 ML Vial ONE (16:45)
[2018-01-31] MEDS ORDERED: Midazolam Inj 5 MG/ML 1 ML Vial IV.PUSH ONE (16:45)
--- NOTE | 2018-01-31 17:33 | XR ---
EXAM DATE: 01/31/2018 5:29 PM EST AGE/SEX: 82 years / Male INDICATIONS: Central line placement CLINICAL DATA: This is the patient's initial encounter. Patient reports that signs and symptoms have been present for 1 day and indicates a pain score of Nonresponsive. MEDICAL/SURGICAL HISTORY: . Emphysema. Benign prostatic hyperplasia, (BPH) Osteoporosis. Hypert ension. Afib. Gastrointestinal ulcer. Renal failure. . Cataract surgery. Brain surgery, benign tumor removal. Spinal fusion T1-T5 . [place] [facility] [place]. . FINDINGS: Single view the chest demonstrate the ET tube, nasogastric tube, left IJ central line and right IJ ce ntral line all in good position. There is a right-sided pigtail catheter in good position. There is n o visible pneumothorax. Mild interstitial prominence throughout the lungs. CONCLUSION: Numerous tubes and catheters all in good position. There is a new left IJ central venous catheter wit hout evidence of pneumothorax. The new central line is tip overlies the SVC. Electronically signed by: Denver Levy MD 01/31/2018 5:32 PM EST
--- NOTE | 2018-01-31 17:35 | P.PNNP ---
Subjective Interval history: Patient is on the ventilator having fevers central line change T-max of 102.6 Physical Exam Vital signs: Vital Signs 01/30/18 18:00 01/30/18 19:00 01/30/18 20:00 Temperature 98.9 F Pulse Rate 87 72 78 Respiratory Rate Blood Pressure 120/55 L 106/58 L 169/79 H Pulse Oximetry 96 99 99 01/30/18 20:18 01/30/18 20:25 01/30/18 21:00 Temperature Pulse Rate 79 81 Respiratory Rate 14 14 Blood Pressure 162/63 H Pulse Oximetry 99 99 01/30/18 22:00 01/30/18 23:00 01/30/18 23:45 Temperature Pulse Rate 79 79 Respiratory Rate 14 Blood Pressure 131/67 136/65 Pulse Oximetry 99 98 98 01/31/18 00:00 01/31/18 01:00 01/31/18 02:00 Temperature 99.1 F Pulse Rate 81 75 81 Respiratory Rate Blood Pressure 115/61 131/60 138/75 Pulse Oximetry 98 97 97 01/31/18 03:00 01/31/18 04:00 01/31/18 04:28 Temperature 98.6 F Pulse Rate 80 80 Respiratory Rate 14 Blood Pressure 150/74 H 119/55 L Pulse Oximetry 97 97 98 01/31/18 05:00 01/31/18 06:00 01/31/18 07:00 Temperature 102.6 F H Pulse Rate 82 80 85 Respiratory Rate Blood Pressure 125/61 128/60 138/63 Pulse Oximetry 98 98 99 01/31/18 07:55 01/31/18 08:00 01/31/18 08:53 Temperature Pulse Rate 83 91 H Respiratory Rate 15 Blood Pressure 145/67 H 192/83 H Pulse Oximetry 97 96 96 01/31/18 08:54 01/31/18 09:00 01/31/18 09:19 Temperature Pulse Rate 91 H 84 80 Respiratory Rate 19 Blood Pressure 161/69 H 162/63 H 86/47 L Pulse Oximetry 95 95 93 L 01/31/18 09:20 01/31/18 10:00 01/31/18 10:15 Temperature 102.3 F H Pulse Rate 77 76 Respiratory Rate 17 Blood Pressure 114/56 L 119/59 L Pulse Oximetry 93 L 95 94 L 01/31/18 10:57 01/31/18 11:00 12/07/18 11:02 Temperature 101.3 F H Pulse Rate 86 89 Respiratory Rate 14 Blood Pressure 195/70 H 141/63 H Pulse Oximetry 94 L 93 L 89 L 01/31/18 12:00 01/31/18 12:54 01/31/18 13:00 Temperature 99.1 F Pulse Rate 89 90 Respiratory Rate 33 H Blood Pressure 148/65 H 129/62 Pulse Oximetry 94 L 92 L 90 L 01/31/18 14:00 01/31/18 15:00 01/31/18 16:00 Temperature 99 F 99.5 F 102.5 F H Pulse Rate 84 96 H 103 H Respiratory Rate Blood Pressure 138/56 L 143/60 H 157/65 H Pulse Oximetry 94 L 95 91 L 01/31/18 16:12 01/31/18 16:45 Temperature Pulse Rate Respiratory Rate 26 H 15 Blood Pressure Pulse Oximetry 96 90 L Intake & Output 01/30/18 01/31/18 01/31/18 18:59 06:59 18:59 Intake Total 705 / 705 1532 / 1532 100 / 100 Output Total 1999 715 / 715 Balance -1295 / -1295 817 / 817 100 / 100 Weight 77.8 kg Intake: IV 350 / 350 600 / 600 100 / 100 Diprivan 1000 mg/100 ml Inj 1, 100 / 100 200 / 200 000 mg In 100 ml @ 5 MCG/KG/MIN 2.082 mls/hr IV.CONT TITRATE PRN Rx#:[id number] Azactam Inj 2 GM In NS Inj 100 100 / 100 ML @ 200 mls/hr IV.SIG Q6H [facility]O Rx#:[id number] Teflaro Inj 300 MG In NS Inj 200 / 200 100 ML @ 100 mls/hr IV.SIG Q12H [facility] Rx#:[id number] fentaNYL 10 mcg/mL Premix Drip 250 / 250 2,500 mcg In 250 ml @ 50 MCG/HR 5 mls/hr IV.SIG TITRATE PRN Rx #:[id number] RIFADIN Inj 300 MG In NS Inj 200 / 200 100 ML @ 100 mls/hr IV.SIG Q12H [facility]YAO Rx#:[id number] Tube Feeding 255 / 255 932 / 932 Tube Irrigant 100 / 100 Output: Pleural Fluid 650 / 650 Urine Amount (Catheter) 1275 / 1275 550 / 550 Indwelling Urethral Catheter 1275 / 1275 550 / 550 Wound Drainage 75 / 75 40 / 40 # 2 Left Shoulder 25 / 25 Left Shoulder 15 / 15 Right Shoulder 50 / 50 25 / 25 Chest Tube Drainage 125 / 125 Right 125 / 125 Other: Date of Last Bowel Movement 01/29/18 01/29/18 01/29/18 # Bowel Movements 0 Narrative: GENERAL: Elderly male who is intubated. SKIN: Warm and dry. HEAD: Normocephalic. EYES: No scleral icterus. No injection or drainage. NECK: Supple, intubated CARDIOVASCULAR: S1-S2 irregular. RESPIRATORY: Breath sounds diminished at bases. GASTROINTESTINAL: Abdomen soft, non-tender, nondistended. EXTREMITIES: 2+ edema in upper extremity more than lower NEUROLOGICAL: Awake, on ventilator - Urinary Catheter Management Condom Cath placed during this visit: no Indwelling Urethral Catheter Cath placed during this visit: yes Reason for continuing: Hourly intake/output Insertion date: 01/20/18 Insertion time: 11:30 Assessment and Plan - Assessment (1) Acute renal failure Code(s): N17.9 - Acute kidney failure, unspecified Status: Acute (2) Atrial fibrillation Code(s): I48.91 - Unspecified atrial fibrillation Status: Acute Qualifiers: Atrial fibrillation type: unspecified Qualified Code(s): I48.91 - Unspecified atrial fibrillation (3) Sepsis Code(s): A41.9 - Sepsis, unspecified organism Status: Acute Qualifiers: Sepsis type: methicillin resistant Staphylococcus aureus Qualified Code(s) : A41.02 - Sepsis due to Methicillin resistant Staphylococcus aureus - Plan Patient received Lasix earlier 800 cc of urine output after that Patient also requires central line change as he became febrile Cultures followed Antibiotic coverage increase Azactam and micafungin follow urine culture Patient is on the ventilator status post right chest tube On ceftaroline/vancomycin MRSA infection bilateral shoulder Follow BMP
[2018-01-31] MEDS ORDERED: RESP: Acetylcysteine 10% 4 ML Neb NEB SCH (17:45)
--- NOTE | 2018-01-31 17:59 | P.PCN ---
Date of procedure: 01/31/18 Pre-op diagnosis: Hypotension, sepsis, acute respiratory failure Post-op diagnosis: same Procedure: PROCEDURE PERFORMED left internal jugular vein central venous catheter placement under ultrasound guidance. INFORMED CONSENT Informed consent obtained from family and documented on chart. ANESTHESIA 1% Lidocaine for local infiltration anesthesia. PROCEDURE After sterile prepping and draping using 1% lidocaine for local infiltration anesthesia, the left internal jugular vein was visualized using an ultrasound vessel finder and under direct visualization was cannulated using an introducer angiocath with dark non-pulsatile blood return. An Angiocath was advanced into the internal jugular vein without any resistance and the needle was then removed. Blood return was confirmed through the Angiocath following which a guidewire was passed through the Angiocath into the left internal jugular vein without any resistance and the Angiocath was then removed. After making a skin sheela and dilation of tract, a 20 cm antimicrobial coated triple lumen catheter was passed over the guidewire by modified Seldinger technique into the right internal jugular vein up to the 19 cm estevan and the guidewire was then removed. Good blood return obtained through all three ports which were then flushed and capped. After suturing the catheter in place, a Bio-occlusive dressing with Biopatch was applied to the site. The patient tolerated the procedure well with no immediate complications noted. A postprocedure chest x-ray was ordered and reviewed with good placement of left IJ central venous catheter with tip overlying SVC. No pneumothorax on post- procedure film. Anesthesia: local
[2018-01-31] MEDS: Melatonin 5 MG Tablet PO SCH (21:28)
[2018-02-01] MEDS: Oral Hygiene Kit OROPHARYNG SCH ×4 (00:05→16:33)
[2018-02-01] MEDS: Ceftaroline Inj 300 MG in Sodium Chlor 0.9% Inj 100 ML IV.SIG SCH ×2 (02:44→14:35)
--- NOTE | 2018-02-01 04:25 | XR ---
EXAM DATE: 02/01/2018 3:56 AM EST AGE/SEX: 82 years / Male INDICATIONS: CLINICAL DATA: This is the patient's encounter. Patient reports that signs and symptoms have been pr esent for and indicates a pain score of . MEDICAL/SURGICAL HISTORY: COMPARISON: [facility] – [place] 1V SINGLE AP, 01/31/2018. . FINDINGS: Right sided pigtail catheter, endotracheal tube, enteric tube again noted. There is consolidation in the left lower lobe and possible small left effusion. This is stable. Osseous structures are intact. CONCLUSION: Stable appearance of the chest. Electronically signed by: Dread Patricio MD 02/01/2018 4:24 AM EST
[2018-02-01] MEDS: Aztreonam Inj 2 GM in Sodium Chloride 0.9% Inj 100 ML IV.SIG SCH ×3 (05:04→17:14)
[2018-02-01 05:40] LABS: Baso % (Auto) 0.1 % (0.0-2.0); Eos # (Auto) 0.1 th/mm3 (0.0-0.4); Eos % (Auto) 0.9 % (0.0-4.0); Hemoglobin 7.9 gm/dL (13.0-17.0); Lymph % (Auto) 9.9 % (9.0-44.0); Mean Corpuscular Hemoglobin 27.5 pg (27.0-34.0); Mean Corpuscular Volume 83.4 fL (80.0-100.0); Mean Platelet Volume 9.3 fL (7.0-11.0); Mono # (Auto) 0.3 th/mm3 (0.0-0.9); Mono % (Auto) 2.6 % (0.0-8.0); Neut # (Auto) 8.4 th/mm3 (1.8-7.7); Neut % (Auto) 86.5 % (16.0-70.0); Platelet Count 208 th/mm3 (150-450); Red Blood Count 2.88 mil/mm3 (4.50-5.90); Red Cell Distribution Width 19.5 % (11.6-17.2); White Blood Count 9.8 th/mm3 (4.0-11.0)
[2018-02-01] MEDS ORDERED: Vancomycin Inj 1,250 MG in Sodium Chlor 0.9% Inj 250 ML IV.SIG SCH (06:00)
[2018-02-01] MEDS: Levothyroxine 100 MCG Tablet PO SCH (06:01)
[2018-02-01 06:08] LABS: Albumin 1.6 g/dL (3.4-5.0); Anion Gap 9 meq/L (5-15); Aspartate Aminotransferase 8 U/L (15-37); Blood Urea Nitrogen 51 mg/dL (7-18); Calcium 7.7 mg/dL (8.5-10.1); Chloride 106 meq/L (98-107); Glomerular Filtration Rate 33 mL/min (>89); Glucose,Random 157 mg/dL (74-106); Potassium 3.3 meq/L (3.5-5.1); Sodium 140 meq/L (136-145)
[2018-02-01 06:11] LABS: Alanine Aminotransferase 7 U/L (12-78); Alkaline Phosphatase 237 U/L (45-117)
[2018-02-01] MEDS: Pantoprazole Sodium 20 MG DR Tablet PO SCH (09:05)
[2018-02-01] MEDS: Chlorhexidine 0.12% Oral Kit 15 ML UDC OROPHARYNG SCH ×2 (09:05→21:05)
[2018-02-01] MEDS: Citalopram 20 MG Tablet PO SCH (09:06)
[2018-02-01] MEDS: Senna/Docusate Sodium 8.6/50 MG Tablet PO SCH ×2 (09:06→21:05)
--- NOTE | 2018-02-01 09:20 | P.PNCC ---
Subjective Subjective Remarks/Hospital Course: This 82-year-old gentleman was transferred emergently from the floor to the surgical intensive care unit because of rapid onset combined hypoxemic and hypercapnic respiratory failure. On arrival he has diffuse crackles throughout both lung santizo and his neck veins are distended. On admission several days ago he was dehydrated and had an element of acute kidney injury. His weight is up about 5 kg since admission though his renal function has improved. On arrival he is breathing 40 times a minute on a nonrebreathing mask with pH of 7.18 and P CO2 of 74. His acidosis is purely respiratory and associated with bronchospasm from fluid overload. B natruretic peptide is elevated to greater than 2000. Other pertinent major problems include septic joint drainage and treatment. 01/22: Critical care reconsulted for worsening resp status. On BIPAP with fulkl face mask. CXR with bilat infiltrates/ pulm edema. Reaccumulated rt shoulder collection. After d/w family proceeded with intubation and placed patient on [facility] ventilation. Placed central line. D/W Dr. Mani Sherman who is arranging US guided drainage/ drain placement for shoulder collection. 01/23: Remains sedated, orally intubated on mechanical ventilation. Significant diuresis with 11 L negative over the last 3 days. Awaiting left shoulder percutaneous drainage of collection by interventional radiology today. 1 unit PRBCs ordered as patient has borderline blood pressures with hemoglobin less than 8. 01/24: Sedated, arousable, orally intubated on mechanical ventilation. Tolerating tube feeds. s/p [id number] drain placement in rt shoulder fluid collection on 01/23. 01/25: He had a good trial on spontaneous breathing yesterday. Mechanical ventilation overnight. Started on spontaneous breathing trial this morning at 12/5 and volumes were small. Increased to 15/8 and volumes looked better with each breath. Still producing lots of thick secretions, dark yellow. Unable to extubate due to general weakness and inability to cough numerous secretions. FiO2 reduced to 40% and gas exchange good. Clearly improved respiratory function from yesterday. Tolerating tube feeds well, gastric residuals minimal , remains constipated and will start on milk of magnesia and. 01/26: Right lower lobe nicely reexpanded after 24 hours on APRV. FI02 reduced to 30%. More alert today, will attempt to extubate. Worsening azotemia appears to be prerenal. We will need to give some volume back. General strength and alertness has improved. 01/27: On BiPAP since last evening. Appears comfortable with 100% O2 sat. Awake and alert. On tube feeds via NG tube 01/28: Resting comfortably, On BIPAP overnight. Tolerating facemask during day prn. Tolerating tube feeds. Hgb 7.1 today, 1 unit PRBCs ordered. 01/29: Was on nasal cannula all day. Last night developed worsening respiratory status and tachypnea for which he was placed on BiPAP. Remains on BiPAP this morning and appears comfortable. Chest x-ray this morning shows haziness over right lung field with probable pulmonary edema versus infiltrate. 01/30: Surgery yesterday for bilateral shoulder collections under general anesthesia, tolerated procedure well was subsequently transferred back to the ICU and kept orally intubated on mechanical ventilation overnight. CT chest done yesterday revealed bilateral pleural effusions right greater than left for which CT- guided thoracentesis with pigtail catheter placement being scheduled with IR. 01/31: Remains sedated, orally intubated on mechanical ventilation. Underwent right-sided pigtail catheter placement by IR yesterday with drainage of about 800 cc of pleural fluid. Tolerating tube feeds. Planning CPAP trials today. Evaluated by Dr. Macias from pulmonary yesterday 02/01: Remains sedated, orally intubated on mechanical ventilation. On levo fed 1.5 mics per minute. Blood pressure labile, currently 140s. Significant oral secretions however ET tube with minimal secretions overnight. Tolerating tube feeds. New left IJ central line placed on 01/31 and right IJ central line removed. Objective Vital Signs / I&O: Vital Signs 01/31/18 09:19 01/31/18 09:20 01/31/18 10:00 Temperature 102.3 F H Pulse Rate 80 77 76 Respiratory Rate 19 Blood Pressure 86/47 L 114/56 L 119/59 L Pulse Oximetry 93 L 93 L 95 01/31/18 10:15 01/31/18 10:57 01/31/18 11:00 Temperature Pulse Rate 86 Respiratory Rate 17 14 Blood Pressure 195/70 H Pulse Oximetry 94 L 94 L 93 L 01/31/18 11:02 01/31/18 12:00 01/31/18 12:54 Temperature 101.3 F H 99.1 F Pulse Rate 89 89 Respiratory Rate 33 H Blood Pressure 141/63 H 148/65 H Pulse Oximetry 89 L 94 L 92 L 01/31/18 13:00 01/31/18 14:00 01/31/18 15:00 Temperature 99 F 99.5 F Pulse Rate 90 84 96 H Respiratory Rate Blood Pressure 129/62 138/56 L 143/60 H Pulse Oximetry 90 L 94 L 95 01/31/18 16:00 01/31/18 16:12 01/31/18 16:15 Temperature 102.5 F H Pulse Rate 103 H 91 H Respiratory Rate 26 H Blood Pressure 157/65 H Pulse Oximetry 91 L 96 96 01/31/18 16:30 01/31/18 16:45 01/31/18 17:00 Temperature 99.5 F Pulse Rate 90 102 H 102 H Respiratory Rate 15 Blood Pressure 148/56 H Pulse Oximetry 94 L 92 L 92 L 01/31/18 17:15 01/31/18 17:30 01/31/18 17:45 Temperature Pulse Rate 108 H 102 H 117 H Respiratory Rate Blood Pressure Pulse Oximetry 93 L 93 L 95 01/31/18 18:00 01/31/18 18:14 01/31/18 18:15 Temperature Pulse Rate 113 H 104 H 111 H Respiratory Rate 15 Blood Pressure Pulse Oximetry 95 94 L 01/31/18 18:30 01/31/18 18:45 01/31/18 19:00 Temperature Pulse Rate 104 H 108 H 107 H Respiratory Rate Blood Pressure Pulse Oximetry 92 L 93 L 94 L 01/31/18 19:15 01/31/18 19:30 01/31/18 19:45 Temperature Pulse Rate 103 H 105 H 98 H Respiratory Rate Blood Pressure Pulse Oximetry 94 L 97 96 01/31/18 20:00 01/31/18 20:15 01/31/18 20:30 Temperature 99.1 F Pulse Rate 99 H 99 H 94 H Respiratory Rate Blood Pressure Pulse Oximetry 96 95 96 01/31/18 20:43 01/31/18 20:45 01/31/18 20:47 Temperature Pulse Rate 91 H 87 Respiratory Rate 14 15 Blood Pressure Pulse Oximetry 95 96 01/31/18 21:00 01/31/18 21:15 01/31/18 21:30 Temperature Pulse Rate 88 91 H 88 Respiratory Rate Blood Pressure Pulse Oximetry 98 99 99 01/31/18 21:45 01/31/18 22:00 01/31/18 22:15 Temperature Pulse Rate 90 77 75 Respiratory Rate Blood Pressure Pulse Oximetry 98 98 98 01/31/18 22:30 01/31/18 22:45 01/31/18 23:00 Temperature Pulse Rate 75 78 80 Respiratory Rate Blood Pressure Pulse Oximetry 98 98 98 01/31/18 23:15 01/31/18 23:30 01/31/18 23:45 Temperature Pulse Rate 86 79 77 Respiratory Rate Blood Pressure Pulse Oximetry 96 96 97 02/01/18 00:00 02/01/18 00:15 02/01/18 00:30 Temperature 99.2 F Pulse Rate 79 81 79 Respiratory Rate Blood Pressure Pulse Oximetry 97 97 98 02/01/18 00:45 02/01/18 01:00 02/01/18 01:15 Temperature Pulse Rate 78 81 77 Respiratory Rate 14 Blood Pressure Pulse Oximetry 98 98 98 02/01/18 01:30 02/01/18 01:45 02/01/18 02:00 Temperature Pulse Rate 78 75 77 Respiratory Rate Blood Pressure Pulse Oximetry 97 97 96 02/01/18 02:15 02/01/18 02:30 02/01/18 02:45 Temperature Pulse Rate 80 76 76 Respiratory Rate Blood Pressure Pulse Oximetry 97 97 97 02/01/18 03:00 02/01/18 03:15 02/01/18 03:30 Temperature Pulse Rate 77 77 75 Respiratory Rate Blood Pressure Pulse Oximetry 97 97 97 02/01/18 03:45 02/01/18 04:00 02/01/18 04:15 Temperature 99.2 F Pulse Rate 74 73 75 Respiratory Rate Blood Pressure Pulse Oximetry 97 97 96 02/01/18 04:30 02/01/18 04:33 02/01/18 04:37 Temperature Pulse Rate 77 71 Respiratory Rate 14 14 Blood Pressure Pulse Oximetry 96 96 02/01/18 04:45 02/01/18 05:00 02/01/18 05:15 Temperature Pulse Rate 79 78 79 Respiratory Rate Blood Pressure Pulse Oximetry 95 95 95 02/01/18 05:30 02/01/18 05:45 02/01/18 06:00 Temperature Pulse Rate 80 76 76 Respiratory Rate Blood Pressure Pulse Oximetry 96 95 96 12/08/18 06:15 02/01/18 06:30 02/01/18 06:45 Temperature Pulse Rate 72 77 75 Respiratory Rate Blood Pressure Pulse Oximetry 96 96 95 02/01/18 07:00 02/01/18 07:15 02/01/18 07:30 Temperature Pulse Rate 77 74 83 Respiratory Rate Blood Pressure Pulse Oximetry 96 96 95 02/01/18 07:45 02/01/18 07:55 02/01/18 07:58 Temperature Pulse Rate 79 89 Respiratory Rate 14 14 Blood Pressure Pulse Oximetry 96 96 02/01/18 08:00 02/01/18 08:13 02/01/18 08:15 Temperature 101.8 F H Pulse Rate 91 H 88 93 H Respiratory Rate Blood Pressure Pulse Oximetry 97 97 02/01/18 08:26 02/01/18 08:27 02/01/18 08:30 Temperature Pulse Rate 91 H 93 H Respiratory Rate Blood Pressure 216/86 H Pulse Oximetry 97 94 L 97 02/01/18 08:45 02/01/18 09:00 Temperature Pulse Rate 90 93 H Respiratory Rate Blood Pressure Pulse Oximetry 97 96 Intake & Output 01/31/18 02/01/18 02/01/18 18:59 06:59 18:59 Intake Total 923 / 923 1202.5 / 1202.5 Output Total 1130 / 1130 460 / 460 Balance -207 / -207 742.5 / 742.5 Weight 75.8 kg Intake: IV 400 / 400 562.5 / 562.5 Azactam Inj 2 GM In NS Inj 100 200 / 200 200 / 200 ML @ 200 mls/hr IV.SIG Q6H [facility] Rx#:[id number] Teflaro Inj 300 MG In NS Inj 100 / 100 100 / 100 100 ML @ 100 mls/hr IV.SIG Q12H [facility] Rx#:[id number] Mycamine Inj 150 MG In NS Inj 100 / 100 100 ML @ 100 mls/hr IV.SIG Q24H [facility] Rx#:[id number] Vancomycin Inj 1,250 MG In NS 262.5 / 262.5 Inj 250 ML @ 250 mls/hr IV.SIG Q48H [facility] Rx#:[id number] Oral 0 / 0 Oral Supplement 0 / 0 Tube Feeding 423 / 423 400 / 400 Tube Irrigant 100 / 100 120 / 120 Water Bolus Amount 120 / 120 Output: Stool 0 / 0 Urine/Stool Mix 0 / 0 Urine Amount (Catheter) 950 / 950 450 / 450 Indwelling Urethral Catheter 950 / 950 450 / 450 Wound Drainage 50 / 50 10 / 10 # 2 Left Shoulder 10 / 10 Left Shoulder 5 / 5 Right Shoulder 40 / 40 5 / 5 Chest Tube Drainage 130 / 130 0 / 0 Right 130 / 130 0 / 0 Other: Date of Last Bowel Movement 01/29/18 01/29/18 01/29/18 # Bowel Movements 0 0 Result Diagrams: 02/01/18 05:00 02/01/18 05:00 Objective Remarks: General: Sedated, arousable, orally intubated on mechanical ventilation HEENT: Positive pallor, no icterus, oral intubated Neck : Left IJ central line in place Chest/pulm: Orally intubated on mechanical ventilation, air entry decreased bilaterally at bases, scattered rhonchi, no wheezing. Right-sided pigtail catheter in place CVS: S1S2, irregular rhythm Abd: Soft, nontender, bowel sounds present. No guarding. No distention. Ext: Warm bilaterally. Dressing over bilateral shoulder surgical site clean dry and intact. ZOEY drains in place. Trace peripheral edema Neuro: Sedated, arousable, orally intubated on mechanical ventilation. Grossly nonfocal Assessment and Plan - Assessment and Plan Plan: Assessment and Plan: Acute combined hypercapnic and hypoxemic respiratory failure Fluid overload/noncardiogenic Pulmonary edema secondary to sepsis MRSA pneumonia Mucus plugging -BNP elevated -Bronchodilators -diuresed to mobilize fluid -Scott required for BPH as well as diuresis -[facility]. -Status post bronchoscopy with BAL on 01/22 with significant mucus plugging noted in the right-sided airways including right mainstem bronchus for which BAL was performed with significant clearing of airway. Bronchial washing sent for Gram stain and cultures. Follow-up chest x-ray post bronchoscopy showed significant improvement in aeration of right lung. -Continue mechanical ventilation, vent bundle. Added Mucomyst to mobilize secretions. -Frequent suctioning required -Overnight on APRV. Lung santizo clear, chest x-ray much improved, extubated . -Required BiPAP on 01/29 and was intubated for bilateral shoulder surgery and remains on mechanical ventilation since 01/[address] chest with bilateral effusions. S/p CT-guided right-sided thoracentesis/ pigtail catheter placement with IR on 01/30. -May need Bronchoscopy after rt thoracentesis depending on CXR review. -Consulted Dr. Jacky Macias for pulmonary per family request. -Daily CPAP trials to decide extubation MRSA septicemia, septic right shoulder, L spine diskitis, left supraclavicular abscess sepsis Right shoulder effusion. septic right shoulder, s/p I&D Urinary tract infection. 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 Taper steroid Blood cultures positive for MRSA. 2D echocardiogram did not show any findings consistent with vegetations. Patient also had a right shoulder effusion, orthopedics aspirated the shoulder - approximately 30 cc of purulent fluid. Orthopedics performed surgery/drainage of bilateral shoulder collections on 01/29 Continue IV antibiotics per infectious disease recommendations. Infectious disease following NM WBC scan 01/18/18 and 01/19/18. Imaging discussed with radiology and it seems patient with multiple focal infections bilateral shoulders, also back at the hardware with diskitis/ osteomyelitis. Neurology, ID, hem onc ff. IR consulted s/p CT-guided drainage of left posterior supraclavicular/posterior chest wall abscess on 01/17/18. s/p US guided drainage of shoulder collection by IR done on 01/23 KEKE on CKD. diuresed, Strict I/O, monitor/ replete electrolytes, follow BUN/ Cr Nephrology following, appreciate recs. Significant fluid removal with diuresis but creatinine increased. prerenal azotemia noted Worsening prerenal azotemia, we were forced to initiate moderate hydration. however in v/o bilateral effusions on CT done on 01/29, resuming lasix to attempt mobilizing fluid CVS Atrial Fibrillation, permanent Noncardiogenic pulmonary edema Hypotension Rate well controlled. Recent ECHO EF 65% Dr. Garner following-discussed with Dr. Garner on 01/22. We agreed with diuresing patient for noncardiogenic pulmonary edema while watching renal function/ BP. Diuretics held around 01/26 for worsening renal function and patient placed on gentle hydration. On 01/23 ordered Levophed for pressor support to keep MAP greater than 65mm Hg. On levo fed 1-2 mics per minute since 01/31 Holding amlodipine and Lopressor in view of labile blood pressure requiring Levophed. Lasix 40 mg IV x1 dose ordered on 01/29 for positive fluid balance and worsening respiratory status, Lasix 40 mg IV daily will be continued while watching renal function to keep an even fluid balance. Anemia 1 unit PRBCs ordered to be transfused on 01/23, 1 unit PRBCs ordered on 01/28 to keep hemoglobin above 8 g%. No overt evidence of blood loss. Follow CBC. Protein calorie malnutrition -Inserted NGT 01/22 following intubation, Continue tube feeds and advance to goal as well tolerated. BPH - Continue Flomax. DVT prophylaxis per surgeon Access: RIJ central line placed 01/22 -discontinued on 01/31. New left IJ central line placed 01/31 01/22: D/w Dr. Mani Sherman, D/W ICE SELLER, D/W patient's family at bedside. 01/23 D/W patient's daughter at bedside regarding current clinical status and plan of care and they voiced understanding and were agreeable with plan of care. D/W ID-Dr Tom on 01/23 01/24: Discussed with patient's family at bedside regarding current clinical status and plan of care and they voiced understanding. Discussed with ID Dr. Tom, discussed with Dr. Piña. Discussed with ICE SELLER. 01/25: I spoke with patient's daughter at the bedside this morning. We discussed goals for ventilator weaning and nutrition. I spoke with extensive family members later in the day. 01/26: I spoke at length with the patient's daughter this morning and will speak extensively with other family members later today. 01/27: I spoke with patient's family member at bedside regarding his respiratory status and plan of care and he voiced understanding. Will come back and update other family members later. 01/28: I updated family regarding plan of care. 01/29: Update multiple family members regarding clinical status including borderline respiratory status requiring BiPAP. Patient scheduled for surgery which was also discussed. I explained that patient will probably remain on mechanical ventilation postoperatively until improvement in respiratory status. 01/30: Treated patient's family regarding current clinical status including plan of care. Discussed need for thoracentesis and pigtail catheter placement for right effusion and possible need for bronchoscopy/BAL. They voiced understanding and were agreeable with plan of care. Discussed with Dr. Tom , discussed with Dr. Jacky Macias from pulmonary who was consulted as well for further evaluation of respiratory failure. 01/31: Discussed with patient's daughter/multiple family members at bedside regarding current clinical status and plan of care and they voiced understanding and was agreeable. Discussed with ID Dr. Tom 02/01: Discussed with patient son at bedside regarding current clinical status and plan of care and he voiced understanding and was agreeable. Condition critical Time spent on critical care excluding procedures 45-minute
[2018-02-01 09:35] LABS: Lymphocytes 4 % (9-44); Monocytes 2 % (0-8); Myelocytes 1 % (0-0)
[2018-02-01 09:36] LABS: Ovalocytes 1+; Platelet Estimate Normal (Normal); Platelet Morphology Normal (Normal); Tear Drop Cells 1+
[2018-02-01] MEDS: Micafungin Inj 150 MG in Sodium Chlor 0.9% Inj 100 ML IV.SIG SCH (12:03)
--- NOTE | 2018-02-01 12:12 | P.PNID ---
Subjective Remarks: On vent, tolerating CPAP sputum non purulent and with nl resp cecilia no fever He is on low dose of levaphed 1-4 mcgs Antibiotics: vanco teflaro rifampin Lines: Line sites with no e.o infection Past Medical History: reviewed Allergies/Adverse Reactions: Allergies amoxicillin Allergy (Severe, Verified 01/13/18 20:44) Hives Objective Vital Signs 01/31/18 12:00 01/31/18 12:54 01/31/18 13:00 Temperature 99.1 F Pulse Rate 89 90 Respiratory Rate 33 H Blood Pressure 148/65 H 129/62 Pulse Oximetry 94 L 92 L 90 L 01/31/18 14:00 01/31/18 15:00 01/31/18 16:00 Temperature 99 F 99.5 F 102.5 F H Pulse Rate 84 96 H 103 H Respiratory Rate Blood Pressure 138/56 L 143/60 H 157/65 H Pulse Oximetry 94 L 95 91 L 01/31/18 16:12 01/31/18 16:15 01/31/18 16:30 Temperature Pulse Rate 91 H 90 Respiratory Rate 26 H Blood Pressure Pulse Oximetry 96 96 94 L 01/31/18 16:45 01/31/18 17:00 01/31/18 17:15 Temperature 99.5 F Pulse Rate 102 H 102 H 108 H Respiratory Rate 15 Blood Pressure 148/56 H Pulse Oximetry 92 L 92 L 93 L 01/31/18 17:30 01/31/18 17:45 01/31/18 18:00 Temperature Pulse Rate 102 H 117 H 113 H Respiratory Rate Blood Pressure Pulse Oximetry 93 L 95 95 01/31/18 18:14 01/31/18 18:15 01/31/18 18:30 Temperature Pulse Rate 104 H 111 H 104 H Respiratory Rate 15 Blood Pressure Pulse Oximetry 94 L 92 L 01/31/18 18:45 01/31/18 19:00 01/31/18 19:15 Temperature Pulse Rate 108 H 107 H 103 H Respiratory Rate Blood Pressure Pulse Oximetry 93 L 94 L 94 L 01/31/18 19:30 01/31/18 19:45 01/31/18 20:00 Temperature 99.1 F Pulse Rate 105 H 98 H 99 H Respiratory Rate Blood Pressure Pulse Oximetry 97 96 96 01/31/18 20:15 01/31/18 20:30 01/31/18 20:43 Temperature Pulse Rate 99 H 94 H Respiratory Rate 14 Blood Pressure Pulse Oximetry 95 96 95 01/31/18 20:45 01/31/18 20:47 01/31/18 21:00 Temperature Pulse Rate 91 H 87 88 Respiratory Rate 15 Blood Pressure Pulse Oximetry 96 98 01/31/18 21:15 01/31/18 21:30 01/31/18 21:45 Temperature Pulse Rate 91 H 88 90 Respiratory Rate Blood Pressure Pulse Oximetry 99 99 98 01/31/18 22:00 01/31/18 22:15 01/31/18 22:30 Temperature Pulse Rate 77 75 75 Respiratory Rate Blood Pressure Pulse Oximetry 98 98 98 01/31/18 22:45 01/31/18 23:00 01/31/18 23:15 Temperature Pulse Rate 78 80 86 Respiratory Rate Blood Pressure Pulse Oximetry 98 98 96 01/31/18 23:30 01/31/18 23:45 02/01/18 00:00 Temperature 99.2 F Pulse Rate 79 77 79 Respiratory Rate Blood Pressure Pulse Oximetry 96 97 97 02/01/18 00:15 02/01/18 00:30 02/01/18 00:45 Temperature Pulse Rate 81 79 78 Respiratory Rate 14 Blood Pressure Pulse Oximetry 97 98 98 02/01/18 01:00 02/01/18 01:15 02/01/18 01:30 Temperature Pulse Rate 81 77 78 Respiratory Rate Blood Pressure Pulse Oximetry 98 98 97 02/01/18 01:45 02/01/18 02:00 02/01/18 02:15 Temperature Pulse Rate 75 77 80 Respiratory Rate Blood Pressure Pulse Oximetry 97 96 97 02/01/18 02:30 02/01/18 02:45 02/01/18 03:00 Temperature Pulse Rate 76 76 77 Respiratory Rate Blood Pressure Pulse Oximetry 97 97 97 02/01/18 03:15 02/01/18 03:30 02/01/18 03:45 Temperature Pulse Rate 77 75 74 Respiratory Rate Blood Pressure Pulse Oximetry 97 97 97 02/01/18 04:00 02/01/18 04:15 02/01/18 04:30 Temperature 99.2 F Pulse Rate 73 75 77 Respiratory Rate Blood Pressure Pulse Oximetry 97 96 96 02/01/18 04:33 02/01/18 04:37 02/01/18 04:45 Temperature Pulse Rate 71 79 Respiratory Rate 14 14 Blood Pressure Pulse Oximetry 96 95 02/01/18 05:00 02/01/18 05:15 02/01/18 05:30 Temperature Pulse Rate 78 79 80 Respiratory Rate Blood Pressure Pulse Oximetry 95 95 96 02/01/18 05:45 02/01/18 06:00 02/01/18 06:15 Temperature Pulse Rate 76 76 72 Respiratory Rate Blood Pressure Pulse Oximetry 95 96 96 02/01/18 06:30 02/01/18 06:45 02/01/18 07:00 Temperature Pulse Rate 77 75 77 Respiratory Rate Blood Pressure Pulse Oximetry 96 95 96 02/01/18 07:15 02/01/18 07:30 02/01/18 07:45 Temperature Pulse Rate 74 83 79 Respiratory Rate Blood Pressure Pulse Oximetry 96 95 96 02/01/18 07:55 02/01/18 07:58 02/01/18 08:00 Temperature 101.8 F H Pulse Rate 89 91 H Respiratory Rate 14 14 Blood Pressure Pulse Oximetry 96 97 02/01/18 08:13 02/01/18 08:15 02/01/18 08:26 Temperature Pulse Rate 88 93 H Respiratory Rate Blood Pressure Pulse Oximetry 97 97 02/01/18 08:27 02/01/18 08:30 02/01/18 08:45 Temperature Pulse Rate 91 H 93 H 90 Respiratory Rate Blood Pressure 216/86 H Pulse Oximetry 94 L 97 97 02/01/18 09:00 02/01/18 09:15 02/01/18 09:30 Temperature Pulse Rate 93 H 97 H 91 H Respiratory Rate Blood Pressure Pulse Oximetry 96 97 96 02/01/18 09:31 02/01/18 09:34 02/01/18 09:45 Temperature Pulse Rate 88 91 H 94 H Respiratory Rate Blood Pressure 114/59 L 130/61 Pulse Oximetry 95 98 96 02/01/18 10:00 02/01/18 10:15 Temperature Pulse Rate 96 H 99 H Respiratory Rate Blood Pressure Pulse Oximetry 96 96 Intake & Output 01/31/18 02/01/18 02/01/18 18:59 06:59 18:59 Intake Total 923 / 923 1202.5 / 1202.5 250 / 250 Output Total 1130 / 1130 460 / 460 Balance -207 / -207 742.5 / 742.5 250 / 250 Weight 75.8 kg Intake: IV 400 / 400 562.5 / 562.5 250 / 250 Azactam Inj 2 GM In NS Inj 100 200 / 200 200 / 200 ML @ 200 mls/hr IV.SIG Q6H [facility] Rx#:[id number] Teflaro Inj 300 MG In NS Inj 100 / 100 100 / 100 100 ML @ 100 mls/hr IV.SIG Q12H [facility] Rx#:[id number] Mycamine Inj 150 MG In NS Inj 100 / 100 100 ML @ 100 mls/hr IV.SIG Q24H [facility] Rx#:[id number] Levophed-Dextrose 4 mg/250 ml 250 / 250 Drip 4 mg In 250 ml @ 2 MCG/MIN 7.5 mls/hr IV.SIG TITRATE PRN Rx#:[id number] Vancomycin Inj 1,250 MG In NS 262.5 / 262.5 Inj 250 ML @ 250 mls/hr IV.SIG Q48H [facility] Rx#:[id number] Oral 0 / 0 Oral Supplement 0 / 0 Tube Feeding 423 / 423 400 / 400 Tube Irrigant 100 / 100 120 / 120 Water Bolus Amount 120 / 120 Output: Stool 0 / 0 Urine/Stool Mix 0 / 0 Urine Amount (Catheter) 950 / 950 450 / 450 Indwelling Urethral Catheter 950 / 950 450 / 450 Wound Drainage 50 / 50 10 / 10 # 2 Left Shoulder 10 / 10 Left Shoulder 5 / 5 Right Shoulder 40 / 40 5 / 5 Chest Tube Drainage 130 / 130 0 / 0 Right 130 / 130 0 / 0 Other: Date of Last Bowel Movement 01/29/18 01/29/18 01/29/18 # Bowel Movements 0 0 01/31/18 13:15 Catheterized Urine Urine Culture - Preliminary No growth in 24 hours 01/31/18 11:16 Blood - Peripheral Aerobic Blood Culture - Preliminary No growth in 1 day 01/31/18 11:16 Blood - Peripheral Anaerobic Blood Culture - Preliminary No growth in 1 day 01/31/18 11:10 Blood - Peripheral Aerobic Blood Culture - Preliminary No growth in 1 day 01/31/18 11:10 Blood - Peripheral Anaerobic Blood Culture - Preliminary No growth in 1 day 01/30/18 15:00 Fluid - Pleural fluid Gram Stain - Final 01/30/18 15:00 Fluid - Pleural fluid Body Fluid Culture - Preliminary No growth in 48 hours 01/29/18 14:11 Wound - Shoulder Gram Stain - Final 01/29/18 14:11 Wound - Shoulder Wound Culture - Final No growth in 72 hours (aerobically and anaerobically ) 01/29/18 14:10 Wound - Shoulder Gram Stain - Final 01/29/18 14:10 Wound - Shoulder Wound Culture - Final No growth in 72 hours (aerobically and anaerobically ) 01/29/18 13:59 Wound - Shoulder Gram Stain - Final 01/29/18 13:59 Wound - Shoulder Wound Culture - Final No growth in 72 hours (aerobically and anaerobically ) 01/29/18 13:58 Wound - Shoulder Gram Stain - Final 01/29/18 13:58 Wound - Shoulder Wound Culture - Final No growth in 72 hours (aerobically and anaerobically ) 01/29/18 14:11 Wound - Shoulder Acid Fast Bacilli Smear - Final No acid fast bacilli seen 01/29/18 14:11 Wound - Shoulder Mycobacterial Culture - Pending 01/29/18 14:10 Wound - Shoulder Acid Fast Bacilli Smear - Final No acid fast bacilli seen 01/29/18 14:10 Wound - Shoulder Mycobacterial Culture - Pending 01/29/18 13:59 Wound - Shoulder Acid Fast Bacilli Smear - Final No acid fast bacilli seen 01/29/18 13:59 Wound - Shoulder Mycobacterial Culture - Pending 01/29/18 13:58 Wound - Shoulder Acid Fast Bacilli Smear - Final No acid fast bacilli seen 01/29/18 13:58 Wound - Shoulder Mycobacterial Culture - Pending 01/17/18 18:56 Fluid - Other Acid Fast Bacilli Smear - Final No acid fast bacilli seen 01/17/18 18:56 Fluid - Other Mycobacterial Culture - Preliminary No growth in 2 weeks 01/30/18 15:00 Fluid - Pleural fluid Fungal Smear - Final No fungal elements seen 01/30/18 15:00 Fluid - Pleural fluid Fungal Culture - Pending 01/29/18 17:00 Sputum - Endotracheal Gram Stain - Final 01/29/18 17:00 Sputum - Endotracheal Sputum Culture - Final Light growth normal respiratory cecilia 01/25/18 10:40 Blood - Peripheral Aerobic Blood Culture - Final No growth in 5 days 01/25/18 10:40 Blood - Peripheral Anaerobic Blood Culture - Final No growth in 5 days 01/25/18 10:52 Blood - Peripheral Aerobic Blood Culture - Final No growth in 5 days 01/25/18 10:52 Blood - Peripheral Anaerobic Blood Culture - Final No growth in 5 days 01/29/18 14:11 Wound - Shoulder Fungal Smear - Final No fungal elements seen 01/29/18 14:11 Wound - Shoulder Fungal Culture - Pending 01/29/18 14:10 Wound - Shoulder Fungal Smear - Final No fungal elements seen 01/29/18 14:10 Wound - Shoulder Fungal Culture - Pending 01/29/18 13:59 Wound - Shoulder Fungal Smear - Final No fungal elements seen 01/29/18 13:59 Wound - Shoulder Fungal Culture - Pending 01/29/18 13:58 Wound - Shoulder Fungal Smear - Final No fungal elements seen 01/29/18 13:58 Wound - Shoulder Fungal Culture - Pending 01/15/18 18:25 Wound - Shoulder Fungal Smear - Final No fungal elements seen 01/15/18 18:25 Wound - Shoulder Fungal Culture - Preliminary No growth in 2 weeks 01/15/18 18:25 Wound - Shoulder Acid Fast Bacilli Smear - Final No acid fast bacilli seen 01/15/18 18:25 Wound - Shoulder Mycobacterial Culture - Preliminary No growth in 2 weeks 01/15/18 18:25 Wound - Shoulder Fungal Smear - Final No fungal elements seen 01/15/18 18:25 Wound - Shoulder Fungal Culture - Preliminary No growth in 2 weeks 01/15/18 18:25 Wound - Shoulder Acid Fast Bacilli Smear - Final No acid fast bacilli seen 01/15/18 18:25 Wound - Shoulder Mycobacterial Culture - Preliminary No growth in 2 weeks Lab - Hematology Results 01/30/18 01/31/18 02/01/18 17:30 06:14 05:00 WBC 8.5 7.3 9.8 RBC 3.09 L 2.92 L 2.88 L Hgb 8.7 L 8.2 L 7.9 L Hct 25.8 L 24.3 L 24.0 L MCV 83.4 83.3 83.4 MCH 28.1 28.1 27.5 MCHC 33.7 33.8 33.0 RDW 19.4 H 19.9 H 19.5 H Plt Count 187 174 208 MPV 9.2 8.8 9.3 Prelim Diff (Auto) Slide review pending Slide review pending Neut % (Auto) 90.1 H 86.5 H Lymph % (Auto) 6.8 L 9.9 [place] % (Auto) 2.1 2.6 Eos % (Auto) 0.9 0.9 Baso % (Auto) 0.1 0.1 Neut # (Auto) 6.6 8.4 H Lymph # (Auto) 0.5 L 1.0 [place] # (Auto) 0.2 0.3 Eos # (Auto) 0.1 0.1 Baso # (Auto) 0.0 0.0 WBC Differential Manual diff final Manual diff final Seg Neuts % (Manual) 79 H 85 H Band Neuts % (Manual) 9 H 8 H Lymphocytes % (Manual) 4 L 4 L Monocytes % (Manual) 3 2 Eosinophils % (Manual) 1 Metamyelocytes % (Man) 1 Myelocytes % (Man) 3 H 1 H Abs Neuts (Manual) 6.7 9.2 H Differential Comment . . Platelet Estimate Normal Normal Platelet Morphology Normal Normal Tear Drop Cells 1+ H 1+ H Ovalocytes 1+ H 1+ H Lab - Chemistry Results 01/30/18 01/30/18 01/30/18 17:30 17:30 17:30 Sodium 140 Potassium 3.5 Chloride 108 H Carbon Dioxide 25.9 Anion Gap 6 BUN 52 H Creatinine 1.82 H Estimated GFR 36 L Random Glucose 151 H Lactic Acid 0.8 Calcium 8.4 L Total Bilirubin 1.5 H AST 6 L ALT 8 L Alkaline Phosphatase 124 H Troponin I Less than 0.02 L Total Protein 5.0 L Albumin 2.0 L 01/31/18 02/01/18 06:14 05:00 Sodium 140 140 Potassium 3.5 3.3 L Chloride 108 H 106 Carbon Dioxide 23.5 25.0 Anion Gap 9 9 BUN 49 H 51 H Creatinine 1.87 H 1.95 H Estimated GFR 35 L 33 L Random Glucose 248 H 157 H Lactic Acid Calcium 7.5 L D 7.7 L Total Bilirubin 1.2 H 1.1 H AST 9 L 8 L ALT 7 L 7 L Alkaline Phosphatase 201 H 237 H Troponin I Total Protein 4.9 L 5.0 L Albumin 1.7 L 1.6 L Imaging: ITS Impressions Abdomen/Pelvis CT 01/13/18 20:43 CONCLUSION: 1. Marked prostate enlargement. 2. Air-filled distention of sigmoid colon. 3. Cardiomegaly. Small bilateral pleural effusions. 4. Diffuse atherosclerotic disease and arterial calcification. 5. Old insufficiency type fractures of the left side of the sacrum and left- sided pubic rami. Cervical Spine MRI 01/14/18 00:00 CONCLUSION: 1. Examination is degraded by motion artifact. 2. Partial visualization of a mass involving the left supraclavicular region measuring 5.[address] scan of the soft tissues of the neck with IV contrast to further assess if the patient can't hold still for that exam. 3. Diffuse degenerative changes as detailed at each level in the above discussion. Head MRI 01/14/18 00:00 CONCLUSION: 1. No acute intracranial abnormality. 2. Encephalomalacia involving the left frontal lobe. Thoracic Spine MRI 01/14/18 00:00 CONCLUSION: 1. See the MRI of the cervical spine reported separately. 2. Orthopedic hardware at the thoracolumbar junction. 3. Patent central canal throughout. Head CT 01/14/18 00:31 CONCLUSION: 1. No acute intracranial findings. 2. 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 . Venous Doppler Study 01/14/18 09:20 CONCLUSION: 1. The study is negative for lower extremity deep venous thrombosis. Soft Tissue Neck CT 01/16/18 00:00 CONCLUSION: 1. Partially visualized fluid and gas collection deep to the left trapezius muscle in the posterior lower neck extending into the posterior thorax. Chest CT with contrast could be performed to image the remainder of the abnormality. Differential diagnosis includes abscess and hematoma. 2. Degenerative findings of the cervical spine. Abscess Drainage CT 01/17/18 00:00 CONCLUSION: 1. Uncomplicated CT guided drainage, as above. WBC Scan Nuclear Medicine 01/18/18 00:00 CONCLUSION: 1. Multiple areas of abnormal uptake including at the upper lumbar spine around the upper left surgical hardware and at the L1-2 disc level. 2. Abnormal activity around the clip joints bilaterally being more prominent on the right. 3. Abnormal activity in the right C2-3 facet and the left C7-T1 facet. 4. Small area of signal abnormality in the posterior right sacroiliac joint region separate from surgical hardware. 5. All these areas are concerning for active infection. Shoulder X-Ray 01/21/18 00:00 CONCLUSION: Unusual positioning of the shoulder but I do not see any obvious displaced fracture of the shoulder. There is a healing third rib fracture and healing seventh rib fracture. Upper Extremity Ultrasound 01/22/18 00:00 CONCLUSION: 1. Lateral right shoulder subcutaneous complex fluid collection concerning for abscess. This is amenable to percutaneous drainage. Abscess Drainage Ultrasound 01/23/18 00:00 CONCLUSION: 1. Uncomplicated ultrasound-guided drainage catheter placement in complex inferolateral right shoulder fluid collection. Lumbar Spine MRI 01/23/18 00:00 CONCLUSION: Little or no change from previous exam. Nothing to suggest abscess Pelvis MRI 01/23/18 00:00 CONCLUSION: 1. Diffuse skin thickening and subcutaneous edema suggestive of cellulitis involving the left buttock without underlying abscess formation. 2. Rectosigmoid colon is distended with fecal debris suggestive of fecal impaction. Clinical correlation is recommended. 3. Markedly enlarged prostate. 4. Degenerative changes and scoliosis of the visualized lower lumbar spine are noted. 5. Bony changes involving the left sacrum likely representing old healed insufficiency fractures. Shoulder MRI 01/23/18 00:00 CONCLUSION: 1. Chronic complete rotator cuff tear. 2. Moderate joint fluid Abscess Drainage 01/24/18 15:37 CONCLUSION: 1. Uncomplicated percutaneous placement of drainage catheter in left shoulder. Chest CT 01/29/18 15:28 CONCLUSION: 1. Interval increase in the amount of pleural effusions bilaterally. Findings have been discussed with Dr. Tom on today's date. Thoracentesis CT 01/30/18 00:00 CONCLUSION: 1. Uncomplicated CT-guided right-sided chest tube placement. Chest X-Ray 02/01/18 05:00 CONCLUSION: Stable appearance of the chest. Physical Exam: GENERAL: on vent SKIN: Warm and dry. No rash HEAD: Atraumatic. Normocephalic. EYES: Pupils equal and round. No scleral icterus. No injection or drainage. ENT: No nasal bleeding or discharge. Mucous membranes pink and moist. NECK: Trachea midline. No JVD. No palpable masses, but diffuse pain CARDIOVASCULAR: Regular rate and rhythm. nO murmurs RESPIRATORY: No accessory muscle use. R sided CT in place clear serous fluid GASTROINTESTINAL: Abdomen soft, non-tender, mildly distended. Hepatic and splenic margins not palpable. MUSCULOSKELETAL: Extremities without clubbing, cyanosis, no significant edema. No obvious deformities. b/l shoulders with dressing on place : [place] in, clear ivette coloured urine NEUROLOGICAL: not interqacting today PSYCHIATRIC: unable to assess Assessment and Plan - Plan High grade staph bacteremia. MRSA 2 D echo neg R shoulder effusion , cw R shoulder septic arhtritis (MRSA)-post I&D. . 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 and infection 2 yrs ago Encephalopathy - resolved B/L septic shoulder arhtritis, MRSA, cw metastatic staph infx No PNA - clin picture and cultures more cw failure High grade PNC allergy, but tolerated meropenem OK New fever , 102 - resolved Log tem prognosis is poor taking into account pt's debility, retained hardware and very limited choice of therapeutic options Recs: continue vancomycin cont teflaro will cont Rifampin for now despite his isolate R to Rifampin tough if develops any side effects will dc chk blood clx chk UA, C+S cont azactam, micafugin P blood and urine cultures will deescalate as clx are aback poonam family @ b/s poonam levin RN Dr Angie Morales covering for me tomorrow
--- NOTE | 2018-02-01 12:44 | P.PNOP ---
Subjective Interval history: Patient intubated. Family at bedside. Answered all questions. Physical Exam Vital signs: Vital Signs 01/31/18 12:54 01/31/18 13:00 01/31/18 14:00 Temperature 99 F Pulse Rate 90 84 Respiratory Rate 33 H Blood Pressure 129/62 138/56 L Pulse Oximetry 92 L 90 L 94 L 01/31/18 15:00 01/31/18 16:00 01/31/18 16:12 Temperature 99.5 F 102.5 F H Pulse Rate 96 H 103 H Respiratory Rate 26 H Blood Pressure 143/60 H 157/65 H Pulse Oximetry 95 91 L 96 01/31/18 16:15 01/31/18 16:30 01/31/18 16:45 Temperature Pulse Rate 91 H 90 102 H Respiratory Rate 15 Blood Pressure Pulse Oximetry 96 94 L 92 L 01/31/18 17:00 01/31/18 17:15 01/31/18 17:30 Temperature 99.5 F Pulse Rate 102 H 108 H 102 H Respiratory Rate Blood Pressure 148/56 H Pulse Oximetry 92 L 93 L 93 L 01/31/18 17:45 01/31/18 18:00 01/31/18 18:14 Temperature Pulse Rate 117 H 113 H 104 H Respiratory Rate 15 Blood Pressure Pulse Oximetry 95 95 01/31/18 18:15 01/31/18 18:30 01/31/18 18:45 Temperature Pulse Rate 111 H 104 H 108 H Respiratory Rate Blood Pressure Pulse Oximetry 94 L 92 L 93 L 01/31/18 19:00 01/31/18 19:15 01/31/18 19:30 Temperature Pulse Rate 107 H 103 H 105 H Respiratory Rate Blood Pressure Pulse Oximetry 94 L 94 L 97 01/31/18 19:45 01/31/18 20:00 01/31/18 20:15 Temperature 99.1 F Pulse Rate 98 H 99 H 99 H Respiratory Rate Blood Pressure Pulse Oximetry 96 96 95 01/31/18 20:30 01/31/18 20:43 01/31/18 20:45 Temperature Pulse Rate 94 H 91 H Respiratory Rate 14 Blood Pressure Pulse Oximetry 96 95 96 01/31/18 20:47 01/31/18 21:00 01/31/18 21:15 Temperature Pulse Rate 87 88 91 H Respiratory Rate 15 Blood Pressure Pulse Oximetry 98 99 01/31/18 21:30 12/07/18 21:45 01/31/18 22:00 Temperature Pulse Rate 88 90 77 Respiratory Rate Blood Pressure Pulse Oximetry 99 98 98 01/31/18 22:15 01/31/18 22:30 01/31/18 22:45 Temperature Pulse Rate 75 75 78 Respiratory Rate Blood Pressure Pulse Oximetry 98 98 98 01/31/18 23:00 01/31/18 23:15 01/31/18 23:30 Temperature Pulse Rate 80 86 79 Respiratory Rate Blood Pressure Pulse Oximetry 98 96 96 01/31/18 23:45 02/01/18 00:00 02/01/18 00:15 Temperature 99.2 F Pulse Rate 77 79 81 Respiratory Rate Blood Pressure Pulse Oximetry 97 97 97 02/01/18 00:30 02/01/18 00:45 02/01/18 01:00 Temperature Pulse Rate 79 78 81 Respiratory Rate 14 Blood Pressure Pulse Oximetry 98 98 98 02/01/18 01:15 02/01/18 01:30 02/01/18 01:45 Temperature Pulse Rate 77 78 75 Respiratory Rate Blood Pressure Pulse Oximetry 98 97 97 02/01/18 02:00 02/01/18 02:15 02/01/18 02:30 Temperature Pulse Rate 77 80 76 Respiratory Rate Blood Pressure Pulse Oximetry 96 97 97 02/01/18 02:45 02/01/18 03:00 02/01/18 03:15 Temperature Pulse Rate 76 77 77 Respiratory Rate Blood Pressure Pulse Oximetry 97 97 97 02/01/18 03:30 02/01/18 03:45 02/01/18 04:00 Temperature 99.2 F Pulse Rate 75 74 73 Respiratory Rate Blood Pressure Pulse Oximetry 97 97 97 02/01/18 04:15 02/01/18 04:30 02/01/18 04:33 Temperature Pulse Rate 75 77 Respiratory Rate 14 Blood Pressure Pulse Oximetry 96 96 96 02/01/18 04:37 02/01/18 04:45 02/01/18 05:00 Temperature Pulse Rate 71 79 78 Respiratory Rate 14 Blood Pressure Pulse Oximetry 95 95 02/01/18 05:15 02/01/18 05:30 02/01/18 05:45 Temperature Pulse Rate 79 80 76 Respiratory Rate Blood Pressure Pulse Oximetry 95 96 95 02/01/18 06:00 02/01/18 06:15 02/01/18 06:30 Temperature Pulse Rate 76 72 77 Respiratory Rate Blood Pressure Pulse Oximetry 96 96 96 02/01/18 06:45 02/01/18 07:00 02/01/18 07:15 Temperature Pulse Rate 75 77 74 Respiratory Rate Blood Pressure Pulse Oximetry 95 96 96 02/01/18 07:30 02/01/18 07:45 02/01/18 07:55 Temperature Pulse Rate 83 79 Respiratory Rate 14 Blood Pressure Pulse Oximetry 95 96 96 02/01/18 07:58 02/01/18 08:00 02/01/18 08:13 Temperature 101.8 F H Pulse Rate 89 91 H 88 Respiratory Rate 14 Blood Pressure Pulse Oximetry 97 02/01/18 08:15 02/01/18 08:26 02/01/18 08:27 Temperature Pulse Rate 93 H 91 H Respiratory Rate Blood Pressure 216/86 H Pulse Oximetry 97 97 94 L 02/01/18 08:30 02/01/18 08:45 02/01/18 09:00 Temperature Pulse Rate 93 H 90 93 H Respiratory Rate Blood Pressure Pulse Oximetry 97 97 96 02/01/18 09:15 02/01/18 09:30 02/01/18 09:31 Temperature Pulse Rate 97 H 91 H 88 Respiratory Rate Blood Pressure 114/59 L Pulse Oximetry 97 96 95 02/01/18 09:34 02/01/18 09:45 02/01/18 10:00 Temperature Pulse Rate 91 H 94 H 96 H Respiratory Rate Blood Pressure 130/61 Pulse Oximetry 98 96 96 02/01/18 10:15 02/01/18 10:30 02/01/18 10:45 Temperature Pulse Rate 99 H 99 H 104 H Respiratory Rate Blood Pressure Pulse Oximetry 96 96 96 02/01/18 11:00 02/01/18 11:15 02/01/18 11:30 Temperature Pulse Rate 99 H 97 H 97 H Respiratory Rate Blood Pressure Pulse Oximetry 96 97 96 02/01/18 11:45 02/01/18 12:00 02/01/18 12:15 Temperature 100.8 F H Pulse Rate 101 H 91 H Respiratory Rate Blood Pressure Pulse Oximetry 96 97 96 Intake & Output 01/31/18 02/01/18 02/01/18 18:59 06:59 18:59 Intake Total 923 / 923 1202.5 / 1202.5 250 / 250 Output Total 1130 / 1130 460 / 460 Balance -207 / -207 742.5 / 742.5 250 / 250 Weight 75.8 kg Intake: IV 400 / 400 562.5 / 562.5 250 / 250 Azactam Inj 2 GM In NS Inj 100 200 / 200 200 / 200 ML @ 200 mls/hr IV.SIG Q6H [facility] Rx#:[id number] Teflaro Inj 300 MG In NS Inj 100 / 100 100 / 100 100 ML @ 100 mls/hr IV.SIG Q12H [facility] Rx#:[id number] Mycamine Inj 150 MG In NS Inj 100 / 100 100 ML @ 100 mls/hr IV.SIG Q24H [facility] Rx#:[id number] Levophed-Dextrose 4 mg/250 ml 250 / 250 Drip 4 mg In 250 ml @ 2 MCG/MIN 7.5 mls/hr IV.SIG TITRATE PRN Rx#:[id number] Vancomycin Inj 1,250 MG In NS 262.5 / 262.5 Inj 250 ML @ 250 mls/hr IV.SIG Q48H [facility] Rx#:[id number] Oral 0 / 0 Oral Supplement 0 / 0 Tube Feeding 423 / 423 400 / 400 Tube Irrigant 100 / 100 120 / 120 Water Bolus Amount 120 / 120 Output: Stool 0 / 0 Urine/Stool Mix 0 / 0 Urine Amount (Catheter) 950 / 950 450 / 450 Indwelling Urethral Catheter 950 / 950 450 / 450 Wound Drainage 50 / 50 10 / 10 # 2 Left Shoulder 10 / 10 Left Shoulder 5 / 5 Right Shoulder 40 / 40 5 / 5 Chest Tube Drainage 130 / 130 0 / 0 Right 130 / 130 0 / 0 Other: Date of Last Bowel Movement 01/29/18 01/29/18 01/29/18 # Bowel Movements 0 0 Narrative: Right shoulder dressing C/D/I drain intact - moderate serosanguineous drainage Left shoulder dressing C/D/I drain intact - mild to moderate serosanguineous drainage - Urinary Catheter Management Condom Cath placed during this visit: no Indwelling Urethral Catheter Cath placed during this visit: yes Reason for continuing: Hourly intake/output Insertion date: 01/20/18 Insertion time: 11:30 Results - Labs CBC & Chem 7: 02/01/18 05:00 02/01/18 05:00 Laboratory Results - last 24 hr 01/31/18 02/01/18 02/01/18 13:15 05:00 05:00 WBC 9.8 RBC 2.88 L Hgb 7.9 L Hct 24.0 L MCV 83.4 MCH 27.5 MCHC 33.0 RDW 19.5 H Plt Count 208 MPV 9.3 Prelim Diff (Auto) Slide review pending Neut % (Auto) 86.5 H Lymph % (Auto) 9.9 [place] % (Auto) 2.6 Eos % (Auto) 0.9 Baso % (Auto) 0.1 Neut # (Auto) 8.4 H Lymph # (Auto) 1.0 [place] # (Auto) 0.3 Eos # (Auto) 0.1 Baso # (Auto) 0.0 WBC Differential Manual diff final Seg Neuts % (Manual) 85 H Band Neuts % (Manual) 8 H Lymphocytes % (Manual) 4 L Monocytes % (Manual) 2 Myelocytes % (Man) 1 H Abs Neuts (Manual) 9.2 H Differential Comment . Platelet Estimate Normal Platelet Morphology Normal Tear Drop Cells 1+ H Ovalocytes 1+ H Sodium 140 Potassium 3.3 L Chloride 106 Carbon Dioxide 25.0 Anion Gap 9 BUN 51 H Creatinine 1.95 H Estimated GFR 33 L Random Glucose 157 H Calcium 7.7 L Total Bilirubin 1.1 H AST 8 L ALT 7 L Alkaline Phosphatase 237 H Total Protein 5.0 L Albumin 1.6 L Urine Color Yellow Urine Clarity Turbid H Urine pH 5.0 Ur Specific Crane 1.009 Urine Protein 30 H Urine Glucose (UA) Negative Urine Ketones Negative Urine Occult Blood Negative Urine Nitrate Negative Urine Bilirubin Negative Urine Urobilinogen Less than 2 Ur Leukocyte Esterase Small H Urine RBC 14 H Urine WBC 34 H Ur Squamous Epith Cells 8 Amorphous Sediment Few H Urine Bacteria Many H Granular Casts 42 Urine Mucus Many H Micro UA Comment Cath-culture ind Ur Microscopic Review Not Reportable Urine Culture Comments Cath-cult indicated Microbiology 01/31/18 13:15 Catheterized Urine Urine Culture - Preliminary No growth in 24 hours 01/31/18 11:16 Blood - Peripheral Aerobic Blood Culture - Preliminary No growth in 1 day 01/31/18 11:16 Blood - Peripheral Anaerobic Blood Culture - Preliminary No growth in 1 day 01/31/18 11:10 Blood - Peripheral Aerobic Blood Culture - Preliminary No growth in 1 day 01/31/18 11:10 Blood - Peripheral Anaerobic Blood Culture - Preliminary No growth in 1 day 01/30/18 15:00 Fluid - Pleural fluid Gram Stain - Final 01/30/18 15:00 Fluid - Pleural fluid Body Fluid Culture - Preliminary No growth in 48 hours 01/29/18 14:11 Wound - Shoulder Gram Stain - Final 01/29/18 14:11 Wound - Shoulder Wound Culture - Final No growth in 72 hours (aerobically and anaerobically ) 01/29/18 14:10 Wound - Shoulder Gram Stain - Final 01/29/18 14:10 Wound - Shoulder Wound Culture - Final No growth in 72 hours (aerobically and anaerobically ) 01/29/18 13:59 Wound - Shoulder Gram Stain - Final 01/29/18 13:59 Wound - Shoulder Wound Culture - Final No growth in 72 hours (aerobically and anaerobically ) 01/29/18 13:58 Wound - Shoulder Gram Stain - Final 01/29/18 13:58 Wound - Shoulder Wound Culture - Final No growth in 72 hours (aerobically and anaerobically ) 01/29/18 14:11 Wound - Shoulder Acid Fast Bacilli Smear - Final No acid fast bacilli seen 01/29/18 14:10 Wound - Shoulder Acid Fast Bacilli Smear - Final No acid fast bacilli seen 01/29/18 13:59 Wound - Shoulder Acid Fast Bacilli Smear - Final No acid fast bacilli seen 01/29/18 13:58 Wound - Shoulder Acid Fast Bacilli Smear - Final No acid fast bacilli seen 01/17/18 18:56 Fluid - Other Acid Fast Bacilli Smear - Final No acid fast bacilli seen 01/17/18 18:56 Fluid - Other Mycobacterial Culture - Preliminary No growth in 2 weeks 01/30/18 15:00 Fluid - Pleural fluid Fungal Smear - Final No fungal elements seen 01/29/18 17:00 Sputum - Endotracheal Gram Stain - Final 01/29/18 17:00 Sputum - Endotracheal Sputum Culture - Final Light growth normal respiratory cecilia - Imaging Impressions Chest X-Ray 01/31/18 17:08 CONCLUSION: Numerous tubes and catheters all in good position. There is a new left IJ central venous catheter without evidence of pneumothorax. The new central line is tip overlies the SVC. Chest X-Ray 02/01/18 05:00 CONCLUSION: Stable appearance of the chest. Assessment and Plan - Assessment and Plan Abscess right shoulder. 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 Surgery: Right shoulder arthrotomy with irrigation and drain placement (2017) Right shoulder arthrotomy with irrigation and drain placement (01/29/2018) Left shoulder arthrotomy with irrigation and drain placement (2017) PLAN: 1. IV antibiotics per infectious disease. Intraoperative cultures taken of both shoulders. Previous cultures show MRSA. 72 hours CX are showing no growth. 2. Source of sepsis likely from a history of previous MRSA from lumbar spine. Possible indolent infection that has developed an abscess of the bilateral shoulders. We will defer to neurosurgery and other specialists for overall management of lumbar spine. Current plan is to remain conservative and forego removal of hardware from the lumbar spine which is likely the source of his ongoing infection. 3. Recent bronchoscope performed showing mucous plugs as well as MRSA. Patient reintubated for surgery and remains on ventilator at this time. 4. Maintain dressings and drains. Drains will be pulled when overall output is minimal. (75 cc output right, 40 cc output left in 24 hour period). 5. Ortho will continue to follow.
[2018-02-01] MEDS: Dextrose 5% in Water Inj 1,000 ML IV.CONT SCH ×2 (13:26→22:12)
--- NOTE | 2018-02-01 14:39 | P.PNNP ---
Subjective Interval history: Patient remains intubated on ventilator opens eyes Physical Exam Vital signs: Vital Signs 01/31/18 15:00 01/31/18 16:00 01/31/18 16:12 Temperature 99.5 F 102.5 F H Pulse Rate 96 H 103 H Respiratory Rate 26 H Blood Pressure 143/60 H 157/65 H Pulse Oximetry 95 91 L 96 01/31/18 16:15 01/31/18 16:30 01/31/18 16:45 Temperature Pulse Rate 91 H 90 102 H Respiratory Rate 15 Blood Pressure Pulse Oximetry 96 94 L 92 L 01/31/18 17:00 01/31/18 17:15 01/31/18 17:30 Temperature 99.5 F Pulse Rate 102 H 108 H 102 H Respiratory Rate Blood Pressure 148/56 H Pulse Oximetry 92 L 93 L 93 L 01/31/18 17:45 01/31/18 18:00 01/31/18 18:14 Temperature Pulse Rate 117 H 113 H 104 H Respiratory Rate 15 Blood Pressure Pulse Oximetry 95 95 01/31/18 18:15 01/31/18 18:30 01/31/18 18:45 Temperature Pulse Rate 111 H 104 H 108 H Respiratory Rate Blood Pressure Pulse Oximetry 94 L 92 L 93 L 01/31/18 19:00 01/31/18 19:15 01/31/18 19:30 Temperature Pulse Rate 107 H 103 H 105 H Respiratory Rate Blood Pressure Pulse Oximetry 94 L 94 L 97 01/31/18 19:45 01/31/18 20:00 01/31/18 20:15 Temperature 99.1 F Pulse Rate 98 H 99 H 99 H Respiratory Rate Blood Pressure Pulse Oximetry 96 96 95 01/31/18 20:30 01/31/18 20:43 01/31/18 20:45 Temperature Pulse Rate 94 H 91 H Respiratory Rate 14 Blood Pressure Pulse Oximetry 96 95 96 01/31/18 20:47 01/31/18 21:00 01/31/18 21:15 Temperature Pulse Rate 87 88 91 H Respiratory Rate 15 Blood Pressure Pulse Oximetry 98 99 01/31/18 21:30 01/31/18 21:45 01/31/18 22:00 Temperature Pulse Rate 88 90 77 Respiratory Rate Blood Pressure Pulse Oximetry 99 98 98 01/31/18 22:15 01/31/18 22:30 01/31/18 22:45 Temperature Pulse Rate 75 75 78 Respiratory Rate Blood Pressure Pulse Oximetry 98 98 98 01/31/18 23:00 01/31/18 23:15 01/31/18 23:30 Temperature Pulse Rate 80 86 79 Respiratory Rate Blood Pressure Pulse Oximetry 98 96 96 01/31/18 23:45 02/01/18 00:00 02/01/18 00:15 Temperature 99.2 F Pulse Rate 77 79 81 Respiratory Rate Blood Pressure Pulse Oximetry 97 97 97 02/01/18 00:30 02/01/18 00:45 02/01/18 01:00 Temperature Pulse Rate 79 78 81 Respiratory Rate 14 Blood Pressure Pulse Oximetry 98 98 98 02/01/18 01:15 02/01/18 01:30 02/01/18 01:45 Temperature Pulse Rate 77 78 75 Respiratory Rate Blood Pressure Pulse Oximetry 98 97 97 02/01/18 02:00 02/01/18 02:15 02/01/18 02:30 Temperature Pulse Rate 77 80 76 Respiratory Rate Blood Pressure Pulse Oximetry 96 97 97 02/01/18 02:45 02/01/18 03:00 02/01/18 03:15 Temperature Pulse Rate 76 77 77 Respiratory Rate Blood Pressure Pulse Oximetry 97 97 97 02/01/18 03:30 02/01/18 03:45 02/01/18 04:00 Temperature 99.2 F Pulse Rate 75 74 73 Respiratory Rate Blood Pressure Pulse Oximetry 97 97 97 02/01/18 04:15 02/01/18 04:30 02/01/18 04:33 Temperature Pulse Rate 75 77 Respiratory Rate 14 Blood Pressure Pulse Oximetry 96 96 96 02/01/18 04:37 02/01/18 04:45 02/01/18 05:00 Temperature Pulse Rate 71 79 78 Respiratory Rate 14 Blood Pressure Pulse Oximetry 95 95 02/01/18 05:15 02/01/18 05:30 02/01/18 05:45 Temperature Pulse Rate 79 80 76 Respiratory Rate Blood Pressure Pulse Oximetry 95 96 95 02/01/18 06:00 02/01/18 06:15 02/01/18 06:30 Temperature Pulse Rate 76 72 77 Respiratory Rate Blood Pressure Pulse Oximetry 96 96 96 02/01/18 06:45 02/01/18 07:00 02/01/18 07:15 Temperature Pulse Rate 75 77 74 Respiratory Rate Blood Pressure Pulse Oximetry 95 96 96 02/01/18 07:30 02/01/18 07:45 02/01/18 07:55 Temperature Pulse Rate 83 79 Respiratory Rate 14 Blood Pressure Pulse Oximetry 95 96 96 02/01/18 07:58 02/01/18 08:00 02/01/18 08:13 Temperature 101.8 F H Pulse Rate 89 91 H 88 Respiratory Rate 14 Blood Pressure Pulse Oximetry 97 02/01/18 08:15 02/01/18 08:26 02/01/18 08:27 Temperature Pulse Rate 93 H 91 H Respiratory Rate Blood Pressure 216/86 H Pulse Oximetry 97 97 94 L 02/01/18 08:30 02/01/18 08:45 02/01/18 09:00 Temperature Pulse Rate 93 H 90 93 H Respiratory Rate Blood Pressure Pulse Oximetry 97 97 96 02/01/18 09:15 02/01/18 09:30 02/01/18 09:31 Temperature Pulse Rate 97 H 91 H 88 Respiratory Rate Blood Pressure 114/59 L Pulse Oximetry 97 96 95 02/01/18 09:34 02/01/18 09:45 02/01/18 10:00 Temperature Pulse Rate 91 H 94 H 96 H Respiratory Rate Blood Pressure 130/61 Pulse Oximetry 98 96 96 02/01/18 10:15 02/01/18 10:30 02/01/18 10:45 Temperature Pulse Rate 99 H 99 H 104 H Respiratory Rate Blood Pressure Pulse Oximetry 96 96 96 02/01/18 11:00 02/01/18 11:15 02/01/18 11:30 Temperature Pulse Rate 99 H 97 H 97 H Respiratory Rate Blood Pressure Pulse Oximetry 96 97 96 02/01/18 11:45 02/01/18 12:00 02/01/18 12:15 Temperature 100.8 F H Pulse Rate 101 H 91 H Respiratory Rate Blood Pressure Pulse Oximetry 96 97 96 Intake & Output 01/31/18 02/01/18 02/01/18 18:59 06:59 18:59 Intake Total 923 / 923 1202.5 / 1202.5 250 / 250 Output Total 1130 / 1130 460 / 460 Balance -207 / -207 742.5 / 742.5 250 / 250 Weight 75.8 kg Intake: IV 400 / 400 562.5 / 562.5 250 / 250 Azactam Inj 2 GM In NS Inj 100 200 / 200 200 / 200 ML @ 200 mls/hr IV.SIG Q6H [facility] Rx#:[id number] Teflaro Inj 300 MG In NS Inj 100 / 100 100 / 100 100 ML @ 100 mls/hr IV.SIG Q12H [facility] Rx#:[id number] Mycamine Inj 150 MG In NS Inj 100 / 100 100 ML @ 100 mls/hr IV.SIG Q24H [facility] Rx#:[id number] Levophed-Dextrose 4 mg/250 ml 250 / 250 Drip 4 mg In 250 ml @ 2 MCG/MIN 7.5 mls/hr IV.SIG TITRATE PRN Rx#:[id number] Vancomycin Inj 1,250 MG In NS 262.5 / 262.5 Inj 250 ML @ 250 mls/hr IV.SIG Q48H [facility] Rx#:[id number] Oral 0 / 0 Oral Supplement 0 / 0 Tube Feeding 423 / 423 400 / 400 Tube Irrigant 100 / 100 120 / 120 Water Bolus Amount 120 / 120 Output: Stool 0 / 0 Urine/Stool Mix 0 / 0 Urine Amount (Catheter) 950 / 950 450 / 450 Indwelling Urethral Catheter 950 / 950 450 / 450 Wound Drainage 50 / 50 10 / 10 # 2 Left Shoulder 10 / 10 Left Shoulder 5 / 5 Right Shoulder 40 / 40 5 / 5 Chest Tube Drainage 130 / 130 0 / 0 Right 130 / 130 0 / 0 Other: Date of Last Bowel Movement 01/29/18 01/29/18 01/29/18 # Bowel Movements 0 0 Narrative: GENERAL: Well-nourished, intubated well-developed patient. SKIN: Warm and dry. HEAD: Normocephalic. EYES: No scleral icterus. No injection or drainage. NECK: Supple, intubated CARDIOVASCULAR: Irregularly irregular RESPIRATORY: Breath sounds bilateral rhonchi GASTROINTESTINAL: Abdomen soft, non-tender, nondistended. EXTREMITIES: 2+ edema NEUROLOGICAL: Awake, on ventilator - Urinary Catheter Management Condom Cath placed during this visit: no Indwelling Urethral Catheter Cath placed during this visit: yes Reason for continuing: Hourly intake/output Insertion date: 01/20/18 Insertion time: 11:30 Assessment and Plan - Assessment (1) Acute renal failure Code(s): N17.9 - Acute kidney failure, unspecified Status: Acute (2) Atrial fibrillation Code(s): I48.91 - Unspecified atrial fibrillation Status: Acute Qualifiers: Atrial fibrillation type: unspecified Qualified Code(s): I48.91 - Unspecified atrial fibrillation (3) Sepsis Code(s): A41.9 - Sepsis, unspecified organism Status: Acute Qualifiers: Sepsis type: methicillin resistant Staphylococcus aureus Qualified Code(s) : A41.02 - Sepsis due to Methicillin resistant Staphylococcus aureus - Plan Patient received Lasix 1.4 L of urine output Patient also requires central line change as he became febrile Cultures followed Antibiotic coverage increase Azactam and micafungin follow urine culture Patient is on the ventilator status post right chest tube On ceftaroline/vancomycin MRSA infection bilateral shoulder Creatinine elevated Levophed 4 mics Replace potassium Give albumin 25 g every 12 hours
[2018-02-01] MEDS ORDERED: Potassium Chlor 20 mEq Premix 20 MEQ/100 ML PIGGYBACK IV.SIG SCH (14:45)
[2018-02-01] MEDS ORDERED: fentaNYL Citrate Inj 250 MCG/5 ML Ampul IV.PUSH STA (14:47)
[2018-02-01] MEDS ORDERED: Midazolam Inj 5 MG/ML 1 ML Vial IV.PUSH ONE (14:51)
--- NOTE | 2018-02-01 15:03 | XR ---
EXAM DATE: 02/01/2018 2:59 PM EST AGE/SEX: 82 years / Male INDICATIONS: Respiratory failure. CLINICAL DATA: This is the patient's subsequent encounter. Patient reports that signs and symptoms h ave been present for 1 week and indicates a pain score of Nonresponsive. MEDICAL/SURGICAL HISTORY: Non-responsive. Non-responsive. COMPARISON: [facility] – [place], CHEST 1V SINGLE AP, 02/01/2018. . FINDINGS: Portable AP view of the chest demonstrates a normal-sized cardiac silhouette. ETT, nasogastric tube, and left IJ central line remain present and multiple EKG lines overlie the patient. Smallbore right c hest tube remains present in the inferior right hemithorax and no pneumothorax is visualized. There i s a stable left basilar pleural-parenchymal opacity securing the medial left hemidiaphragm. CONCLUSION: 1. Stable left basilar opacity most likely representing pleural effusion with associated atelectasis or consolidation. 2. Right chest tube remains present and no pneumothorax is visualized. Electronically signed by: Misbah Horne MD 02/01/2018 3:02 PM EST
[2018-02-01] MEDS: Albumin Human 25% Inj 100 ML IV.SIG SCH (15:08)
[2018-02-01] MEDS ORDERED: Potassium Chlor 40 mEq Premix 40 MEQ/100 ML PIGGYBACK IV.SIG ONE (15:15)
--- NOTE | 2018-02-01 16:22 | P.PNNS ---
Subjective Interval history: THIS NOTE REPRESENTS MY ENCOUNTER ON 01/31/18 DURING ROUNDS This 82-year-old gentleman was transferred emergently from the floor to the surgical intensive care unit because of rapid onset combined hypoxemic and hypercapnic respiratory failure. On arrival he has diffuse crackles throughout both lung santizo and his neck veins are distended. On admission several days ago he was dehydrated and had an element of acute kidney injury. His weight is up about 5 kg since admission though his renal function has improved. On arrival he is breathing 40 times a minute on a nonrebreathing mask with pH of 7.18 and P CO2 of 74. His acidosis is purely respiratory and associated with bronchospasm from fluid overload. B natruretic peptide is elevated to greater than 2000. Other pertinent major problems include septic joint drainage and treatment. 01/28. He is on BiPAP mask, Resting comfortably, On BIPAP overnight. Tolerating facemask during day prn. Tolerating tube feeds. Hgb 7.1 today, 1 unit PRBCs ordered. 01/29. 01/29: hE WAS on nasal cannula all day yesterday. Last night developed worsening respiratory status and tachypnea for which he was placed on BiPAP. Remains on BiPAP this morning and appears comfortable. Chest x-ray this morning shows haziness over right lung field with probable pulmonary edema versus infiltrate. . 01/30. He was taken to surgery yesterday for bilateral shoulder collections under general anesthesia, tolerated procedure well was subsequently transferred back to the ICU and kept orally intubated on mechanical ventilation overnight. His CT chest done yesterday revealed bilateral pleural effusions right greater than left for which CT-guided thoracentesis 01/31/18. He remains sedated, orally intubated on mechanical ventilation. Underwent right-sided pigtail catheter placement by IR yesterday with drainage of about 800 cc of pleural fluid. Tolerating tube feeds. CPAP trials today Physical Exam Vital signs: Vital Signs 01/31/18 16:30 01/31/18 16:45 01/31/18 17:00 Temperature 99.5 F Pulse Rate 90 102 H 102 H Respiratory Rate 15 Blood Pressure 148/56 H Pulse Oximetry 94 L 92 L 92 L 01/31/18 17:15 01/31/18 17:30 01/31/18 17:45 Temperature Pulse Rate 108 H 102 H 117 H Respiratory Rate Blood Pressure Pulse Oximetry 93 L 93 L 95 01/31/18 18:00 01/31/18 18:14 01/31/18 18:15 Temperature Pulse Rate 113 H 104 H 111 H Respiratory Rate 15 Blood Pressure Pulse Oximetry 95 94 L 01/31/18 18:30 01/31/18 18:45 01/31/18 19:00 Temperature Pulse Rate 104 H 108 H 107 H Respiratory Rate Blood Pressure Pulse Oximetry 92 L 93 L 94 L 01/31/18 19:15 01/31/18 19:30 01/31/18 19:45 Temperature Pulse Rate 103 H 105 H 98 H Respiratory Rate Blood Pressure Pulse Oximetry 94 L 97 96 01/31/18 20:00 01/31/18 20:15 01/31/18 20:30 Temperature 99.1 F Pulse Rate 99 H 99 H 94 H Respiratory Rate Blood Pressure Pulse Oximetry 96 95 96 01/31/18 20:43 01/31/18 20:45 01/31/18 20:47 Temperature Pulse Rate 91 H 87 Respiratory Rate 14 15 Blood Pressure Pulse Oximetry 95 96 01/31/18 21:00 01/31/18 21:15 01/31/18 21:30 Temperature Pulse Rate 88 91 H 88 Respiratory Rate Blood Pressure Pulse Oximetry 98 99 99 01/31/18 21:45 01/31/18 22:00 01/31/18 22:15 Temperature Pulse Rate 90 77 75 Respiratory Rate Blood Pressure Pulse Oximetry 98 98 98 01/31/18 22:30 01/31/18 22:45 01/31/18 23:00 Temperature Pulse Rate 75 78 80 Respiratory Rate Blood Pressure Pulse Oximetry 98 98 98 01/31/18 23:15 01/31/18 23:30 01/31/18 23:45 Temperature Pulse Rate 86 79 77 Respiratory Rate Blood Pressure Pulse Oximetry 96 96 97 02/01/18 00:00 02/01/18 00:15 02/01/18 00:30 Temperature 99.2 F Pulse Rate 79 81 79 Respiratory Rate Blood Pressure Pulse Oximetry 97 97 98 02/01/18 00:45 02/01/18 01:00 02/01/18 01:15 Temperature Pulse Rate 78 81 77 Respiratory Rate 14 Blood Pressure Pulse Oximetry 98 98 98 02/01/18 01:30 02/01/18 01:45 02/01/18 02:00 Temperature Pulse Rate 78 75 77 Respiratory Rate Blood Pressure Pulse Oximetry 97 97 96 02/01/18 02:15 02/01/18 02:30 02/01/18 02:45 Temperature Pulse Rate 80 76 76 Respiratory Rate Blood Pressure Pulse Oximetry 97 97 97 02/01/18 03:00 02/01/18 03:15 02/01/18 03:30 Temperature Pulse Rate 77 77 75 Respiratory Rate Blood Pressure Pulse Oximetry 97 97 97 02/01/18 03:45 02/01/18 04:00 02/01/18 04:15 Temperature 99.2 F Pulse Rate 74 73 75 Respiratory Rate Blood Pressure Pulse Oximetry 97 97 96 02/01/18 04:30 02/01/18 04:33 02/01/18 04:37 Temperature Pulse Rate 77 71 Respiratory Rate 14 14 Blood Pressure Pulse Oximetry 96 96 02/01/18 04:45 02/01/18 05:00 02/01/18 05:15 Temperature Pulse Rate 79 78 79 Respiratory Rate Blood Pressure Pulse Oximetry 95 95 95 02/01/18 05:30 02/01/18 05:45 02/01/18 06:00 Temperature Pulse Rate 80 76 76 Respiratory Rate Blood Pressure Pulse Oximetry 96 95 96 02/01/18 06:15 02/01/18 06:30 02/01/18 06:45 Temperature Pulse Rate 72 77 75 Respiratory Rate Blood Pressure Pulse Oximetry 96 96 95 02/01/18 07:00 02/01/18 07:15 02/01/18 07:30 Temperature Pulse Rate 77 74 83 Respiratory Rate Blood Pressure Pulse Oximetry 96 96 95 02/01/18 07:45 02/01/18 07:55 02/01/18 07:58 Temperature Pulse Rate 79 89 Respiratory Rate 14 14 Blood Pressure Pulse Oximetry 96 96 02/01/18 08:00 02/01/18 08:13 02/01/18 08:15 Temperature 101.8 F H Pulse Rate 91 H 88 93 H Respiratory Rate Blood Pressure Pulse Oximetry 97 97 02/01/18 08:26 02/01/18 08:27 02/01/18 08:30 Temperature Pulse Rate 91 H 93 H Respiratory Rate Blood Pressure 216/86 H Pulse Oximetry 97 94 L 97 02/01/18 08:45 02/01/18 09:00 02/01/18 09:15 Temperature Pulse Rate 90 93 H 97 H Respiratory Rate Blood Pressure Pulse Oximetry 97 96 97 02/01/18 09:30 02/01/18 09:31 02/01/18 09:34 Temperature Pulse Rate 91 H 88 91 H Respiratory Rate Blood Pressure 114/59 L 130/61 Pulse Oximetry 96 95 98 02/01/18 09:45 02/01/18 10:00 02/01/18 10:15 Temperature Pulse Rate 94 H 96 H 99 H Respiratory Rate Blood Pressure Pulse Oximetry 96 96 96 02/01/18 10:30 02/01/18 10:45 02/01/18 11:00 Temperature Pulse Rate 99 H 104 H 99 H Respiratory Rate Blood Pressure Pulse Oximetry 96 96 96 02/01/18 11:15 02/01/18 11:30 02/01/18 11:45 Temperature Pulse Rate 97 H 97 H 101 H Respiratory Rate Blood Pressure Pulse Oximetry 97 96 96 02/01/18 12:00 02/01/18 12:15 02/01/18 12:30 Temperature 100.8 F H Pulse Rate 91 H 93 H 93 H Respiratory Rate Blood Pressure Pulse Oximetry 97 97 94 L 02/01/18 12:45 02/01/18 13:00 02/01/18 13:15 Temperature Pulse Rate 90 92 H 90 Respiratory Rate Blood Pressure Pulse Oximetry 94 L 96 94 L 02/01/18 13:30 02/01/18 13:45 02/01/18 14:00 Temperature Pulse Rate 91 H 95 H 89 Respiratory Rate Blood Pressure Pulse Oximetry 96 96 94 L 02/01/18 14:15 02/01/18 14:30 02/01/18 14:45 Temperature Pulse Rate 96 H 90 96 H Respiratory Rate Blood Pressure Pulse Oximetry 95 92 L 93 L 02/01/18 15:20 Temperature Pulse Rate Respiratory Rate Blood Pressure Pulse Oximetry 95 Intake & Output 01/31/18 02/01/18 02/01/18 18:59 06:59 18:59 Intake Total 923 / 923 1202.5 / 1202.5 450 / 450 Output Total 1130 / 1130 460 / 460 Balance -207 / -207 742.5 / 742.5 450 / 450 Weight 75.8 kg Intake: IV 400 / 400 562.5 / 562.5 450 / 450 Azactam Inj 2 GM In NS Inj 100 200 / 200 200 / 200 100 / 100 ML @ 200 mls/hr IV.SIG Q6H [facility] Rx#:[id number] Teflaro Inj 300 MG In NS Inj 100 / 100 100 / 100 100 ML @ 100 mls/hr IV.SIG Q12H [facility] Rx#:[id number] Mycamine Inj 150 MG In NS Inj 100 / 100 100 / 100 100 ML @ 100 mls/hr IV.SIG Q24H [facility] Rx#:[id number] Levophed-Dextrose 4 mg/250 ml 250 / 250 Drip 4 mg In 250 ml @ 2 MCG/MIN 7.5 mls/hr IV.SIG TITRATE PRN Rx#:[id number] Vancomycin Inj 1,250 MG In NS 262.5 / 262.5 Inj 250 ML @ 250 mls/hr IV.SIG Q48H [facility] Rx#:[id number] Oral 0 / 0 Oral Supplement 0 / 0 Tube Feeding 423 / 423 400 / 400 Tube Irrigant 100 / 100 120 / 120 Water Bolus Amount 120 / 120 Output: Stool 0 / 0 Urine/Stool Mix 0 / 0 Urine Amount (Catheter) 950 / 950 450 / 450 Indwelling Urethral Catheter 950 / 950 450 / 450 Wound Drainage 50 / 50 10 / 10 # 2 Left Shoulder 10 / 10 Left Shoulder 5 / 5 Right Shoulder 40 / 40 5 / 5 Chest Tube Drainage 130 / 130 0 / 0 Right 130 / 130 0 / 0 Other: Date of Last Bowel Movement 01/29/18 01/29/18 01/29/18 # Bowel Movements 0 0 Narrative: THIS NOTE REPRESENTS MY ENCOUNTER ON 01/31/18 DURING ROUNDS Mr Dey is intubated and sedated. Localizes to painful stimuli with all 4 extremities. Cranial Nerves: Pupils equal, 3 mm round, reactive to light. Eyes appear conjugated. There was no nystagmus, no papilledema. Face musculature appeared symmetrical at rest. Face sensation, olfaction, and hearing cannot be adequately assessed due to the patient's neurological condition. The patient has a corneal reflex. The patient has a gag reflex. The sternocleidomastoid and trapezius were symmetrical. Cervical Spine: The patient's neck is soft, supple, without nuchal rigidity. Motor: His muscle tone and bulk are normal. He moves purposefully all 4 extremities symmetrically. Reflexes: Deep tendon reflexes are 2+ and symmetrical in the biceps, triceps, and brachioradialis, bilaterally, in the upper extremities. In the lower extremities, the patellar and ankles are 2+, bilaterally. There is a bilateral plantar flexion response. There is no clonus or other abnormal reflexes noted. Sensory: On examination there there is response to painful stimuli, localizing with both upper and lower extremities. Cerebellar: Examination cannot be adequately assessed due to the patient's neurological condition. Lungs: clear Heart: Regular rhythm and rate Skin: warm and dry - Urinary Catheter Management Condom Cath placed during this visit: no Indwelling Urethral Catheter Cath placed during this visit: yes Reason for continuing: Hourly intake/output Insertion date: 01/20/18 Insertion time: 11:30 Assessment and Plan - Plan THIS NOTE REPRESENTS MY ENCOUNTER ON 01/31/18 DURING ROUNDS Neuro. Continue neuro checks. Acute combined hypercapnic and hypoxemic respiratory failure on mechanical ventilation, CPAP trials today He underwent right-sided pigtail catheter placement by IR yesterday with drainage of about 800 cc of pleural fluid -Bronchodilators -diuresed to mobilize fluid -Scott required for BPH as well as diuresis May need further bronchoscopy. Follow-up chest x-ray -Continue mechanical ventilation, vent bundle. Added Mucomyst to mobilize secretions. -Frequent suctioning required MRSA septicemia, septic right shoulder, L spine possible osteomyelitis, left supraclavicular abscess Right shoulder effusion. septic right shoulder, s/p I&D Urinary tract infection. Left Supraclavicular abscess, CT reviewed, showed abscess extending to posterior thorax He was taken to surgery yesterday for bilateral shoulder collections under general anesthesia, tolerated procedure Blood cultures positive for MRSA. 2D echocardiogram did not show any findings consistent with vegetations. Continue vancomycin, Levaquin, meropenem per ID. Patient also had a right shoulder effusion, orthopedics aspirated the shoulder - approximately 30 cc of purulent fluid. Orthopedics planning OR for drainage ob bilateral shoulder collections on 01/29 Continue IV antibiotics per infectious disease recommendations. Infectious disease following repeat blood cultures ntd KEKE on CKD. Being diuresed, Strict I/O, monitor/ replete electrolytes, follow BUN/ Cr Nephrology following, appreciate recs. Significant fluid removal with diuresis but creatinine increased. Fluid balance appears about the right today 01/25, but mild prerenal azotemia noted Worsening prerenal azotemia Atrial Fibrillation, permanent Dr. Garner following Rate well controlled. old antihypertensives. On 01/23 ordered Levophed for pressor support to keep MAP greater than 65mm Hg however has not required pressors. Hold off on further diuresis due to rising creatinine. Start Lopressor 12 and half milligrams twice daily ANEMIA: TRANSFUSED 1u prbc Protein calorie malnutrition: very low albumin, will check prealbumin. Will add ensure with meals. 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 BPH - Continue Flomax. Endocrine: Continue to Monitor serial Acu checks and SSI as needed in detail Continue Protonix for stress ulcer prophylaxis Continue Randolph hose and SCD's for DVT prophylaxis. Lovenox Further recommendations will be provided depending on the patient's clinical evaluation and follow up
--- NOTE | 2018-02-01 17:29 | P.PCN ---
Date of procedure: 02/01/18 Pre-op diagnosis: Acute respiratory failure, sepsis Post-op diagnosis: same Procedure: Procedure fiberoptic bronchoscopy and bronchoalveolar lavage Operators: Dr. Kristopher Morales Informed consent obtained from family and documented in chart Anesthesia used Versed 5 mg IV, fentanyl 250 g IV, Rocuronium 50 mg IV for neuromuscular blockade. Procedure: Patient was placed on 100% oxygen via ET tube/mechanical ventilator. After ensuring adequate sedation/analgesia/ neuromuscular blockade, fiberoptic bronchoscope was inserted via adapter on ET tube and advanced into the trachea upto the karan. Minimal secretions suctioned out. Subsequently bronchoscope was advanced into the right mainstem bronchus with some mucous plugs noted which was suctioned out. Bronchoalveolar lavage was performed of the right- sided airways with minimal mucus plugging noted. Subsequently bronchoscope was withdrawn and advanced down the left sided airways with minimal mucous plugs which were suctioned out and bronchoalveolar lavage was performed. Subsequently bronchoscope was withdrawn out of the ET tube. Patient tolerated the procedure well with no immediate complications noted. We will follow-up chest x-ray when available.
--- NOTE | 2018-02-01 17:48 | XR ---
EXAM DATE: 02/01/2018 5:29 PM EST AGE/SEX: 82 years / Male INDICATIONS: Atelectasis. CLINICAL DATA: This is the patient's subsequent encounter. Patient reports that signs and symptoms h ave been present for 2 weeks and indicates a pain score of Nonresponsive. MEDICAL/SURGICAL HISTORY: Hypertension. A-Fib. Fusion, lumbar. Chest tube, right. Central du e. COMPARISON: [facility] [place]ST 1V SINGLE AP, 02/01/2018. . FINDINGS: ET tube is in the low position 1.5 cm from the karan. The NG tube is directed into the stomach. Ther e is a left internal jugular central line placed with the tip overlying the SVC. There is hazy densit y at the mid and lower left lung with silhouetting the left hemidiaphragm. Right lung is grossly phoebe r. There is a pigtail catheter over the right chest. A pneumothorax is not seen. There appear to be r ight-sided rib fractures. CONCLUSION: ET tube in a low position 1.5 cm from the karan. Right chest tube without evidence of pneumothorax. Suspected atelectasis, consolidation and/or effusion at the left mid and lower lung. Electronically signed by: Misbah Blair MD 02/01/2018 5:47 PM EST
[2018-02-01] MEDS: Melatonin 5 MG Tablet PO SCH (21:05)
[2018-02-02] MEDS: Oral Hygiene Kit OROPHARYNG SCH ×5 (00:40→23:06)
[2018-02-02] MEDS: Aztreonam Inj 2 GM in Sodium Chloride 0.9% Inj 100 ML IV.SIG SCH ×5 (00:40→23:06)
[2018-02-02] MEDS: Albumin Human 25% Inj 100 ML IV.SIG SCH ×2 (02:21→15:12)
[2018-02-02] MEDS: Ceftaroline Inj 300 MG in Sodium Chlor 0.9% Inj 100 ML IV.SIG SCH ×2 (02:24→15:13)
--- NOTE | 2018-02-02 03:59 | XR ---
EXAM DATE: 02/02/2018 3:49 AM EST AGE/SEX: 82 years / Male INDICATIONS: Shortness of breath. CLINICAL DATA: This is the patient's subsequent encounter. Patient reports that signs and symptoms h ave been present for 2 weeks and indicates a pain score of Nonresponsive. MEDICAL/SURGICAL HISTORY: Hypertension. Hypothyroidism. A-fib. Fusion, lumbar. Chest tube, right. COMPARISON: [facility] – [place]ST 1V SINGLE AP, 02/01/2018. . FINDINGS: Right-sided chest tube again seen without discrete pneumothorax. There is consolidation of the left l ower lobe identified. Left jugular line tip overlies the SVC. Endotracheal tube tip terminates 2.2 cm above the karan. CONCLUSION: Left lower lobe consolidation. Electronically signed by: Dread Patricio MD 02/02/2018 3:58 AM EST
[2018-02-02 06:20] LABS: Eos # (Auto) 0.1 th/mm3 (0.0-0.4); Eos % (Auto) 1.1 % (0.0-4.0); Hematocrit 21.4 % (39.0-51.0); Hemoglobin 7.1 gm/dL (13.0-17.0); Lymph # (Auto) 0.5 th/mm3 (1.0-4.8); Lymph % (Auto) 6.5 % (9.0-44.0); Mean Corpuscular HGB Conc 33.3 % (32.0-36.0); Mean Corpuscular Hemoglobin 27.4 pg (27.0-34.0); Mean Corpuscular Volume 82.4 fL (80.0-100.0); Mean Platelet Volume 9.2 fL (7.0-11.0); Mono # (Auto) 0.2 th/mm3 (0.0-0.9); Mono % (Auto) 2.3 % (0.0-8.0); Neut # (Auto) 7.3 th/mm3 (1.8-7.7); Neut % (Auto) 90.1 % (16.0-70.0); Platelet Count 174 th/mm3 (150-450); Red Cell Distribution Width 19.6 % (11.6-17.2); White Blood Count 8.1 th/mm3 (4.0-11.0)
[2018-02-02 06:31] LABS: Alanine Aminotransferase 9 U/L (12-78); Albumin 2.2 g/dL (3.4-5.0); Alkaline Phosphatase 346 U/L (45-117); Anion Gap 9 meq/L (5-15); Aspartate Aminotransferase 12 U/L (15-37); Blood Urea Nitrogen 54 mg/dL (7-18); Calcium 7.7 mg/dL (8.5-10.1); Carbon Dioxide 22.6 meq/L (21.0-32.0); Chloride 107 meq/L (98-107); Glomerular Filtration Rate 31 mL/min (>89); Glucose,Random 137 mg/dL (74-106); Magnesium 2.2 mg/dL (1.5-2.5); Potassium 3.5 meq/L (3.5-5.1); Sodium 139 meq/L (136-145); Total Protein 5.4 g/dL (6.4-8.2)
[2018-02-02] MEDS: Levothyroxine 100 MCG Tablet PO SCH (06:35)
[2018-02-02] MEDS: Chlorhexidine 0.12% Oral Kit 15 ML UDC OROPHARYNG SCH ×2 (09:01→19:54)
[2018-02-02] MEDS: Citalopram 20 MG Tablet PO SCH (09:01)
[2018-02-02] MEDS: Pantoprazole Inj 40 MG Vial IV.PUSH SCH (09:02)
[2018-02-02] MEDS: Senna/Docusate Sodium 8.6/50 MG Tablet PO SCH ×2 (09:02→20:56)
--- NOTE | 2018-02-02 09:02 | P.PNCC ---
Subjective Subjective Remarks/Hospital Course: This 82-year-old gentleman was transferred emergently from the floor to the surgical intensive care unit because of rapid onset combined hypoxemic and hypercapnic respiratory failure. On arrival he has diffuse crackles throughout both lung santizo and his neck veins are distended. On admission several days ago he was dehydrated and had an element of acute kidney injury. His weight is up about 5 kg since admission though his renal function has improved. On arrival he is breathing 40 times a minute on a nonrebreathing mask with pH of 7.18 and P CO2 of 74. His acidosis is purely respiratory and associated with bronchospasm from fluid overload. B natruretic peptide is elevated to greater than 2000. Other pertinent major problems include septic joint drainage and treatment. 01/22: Critical care reconsulted for worsening resp status. On BIPAP with fulkl face mask. CXR with bilat infiltrates/ pulm edema. Reaccumulated rt shoulder collection. After d/w family proceeded with intubation and placed patient on [facility] ventilation. Placed central line. D/W Dr. Mani Sherman who is arranging US guided drainage/ drain placement for shoulder collection. 01/23: Remains sedated, orally intubated on mechanical ventilation. Significant diuresis with 11 L negative over the last 3 days. Awaiting left shoulder percutaneous drainage of collection by interventional radiology today. 1 unit PRBCs ordered as patient has borderline blood pressures with hemoglobin less than 8. 01/24: Sedated, arousable, orally intubated on mechanical ventilation. Tolerating tube feeds. s/p [id number] drain placement in rt shoulder fluid collection on 01/23. 01/25: He had a good trial on spontaneous breathing yesterday. Mechanical ventilation overnight. Started on spontaneous breathing trial this morning at 12/5 and volumes were small. Increased to 15/8 and volumes looked better with each breath. Still producing lots of thick secretions, dark yellow. Unable to extubate due to general weakness and inability to cough numerous secretions. FiO2 reduced to 40% and gas exchange good. Clearly improved respiratory function from yesterday. Tolerating tube feeds well, gastric residuals minimal , remains constipated and will start on milk of magnesia and. 01/26: Right lower lobe nicely reexpanded after 24 hours on APRV. FI02 reduced to 30%. More alert today, will attempt to extubate. Worsening azotemia appears to be prerenal. We will need to give some volume back. General strength and alertness has improved. 01/27: On BiPAP since last evening. Appears comfortable with 100% O2 sat. Awake and alert. On tube feeds via NG tube 01/28: Resting comfortably, On BIPAP overnight. Tolerating facemask during day prn. Tolerating tube feeds. Hgb 7.1 today, 1 unit PRBCs ordered. 01/29: Was on nasal cannula all day. Last night developed worsening respiratory status and tachypnea for which he was placed on BiPAP. Remains on BiPAP this morning and appears comfortable. Chest x-ray this morning shows haziness over right lung field with probable pulmonary edema versus infiltrate. 01/30: Surgery yesterday for bilateral shoulder collections under general anesthesia, tolerated procedure well was subsequently transferred back to the ICU and kept orally intubated on mechanical ventilation overnight. CT chest done yesterday revealed bilateral pleural effusions right greater than left for which CT- guided thoracentesis with pigtail catheter placement being scheduled with IR. 01/31: Remains sedated, orally intubated on mechanical ventilation. Underwent right-sided pigtail catheter placement by IR yesterday with drainage of about 800 cc of pleural fluid. Tolerating tube feeds. Planning CPAP trials today. Evaluated by Dr. Macias from pulmonary yesterday 02/01: Remains sedated, orally intubated on mechanical ventilation. On Levophed 1.5 mics per minute. Blood pressure labile, currently 140s. Significant oral secretions however ET tube with minimal secretions overnight. Tolerating tube feeds. New left IJ central line placed on 01/31 and right IJ central line removed. 02/02: Remains intubated more awake currently on 2 mics of Levophed to maintain map above 65. Patient is able to follow commands even though weak. Urine output of approximately 1200 mL in 24 hours, chest tube output 50 mL. Family is at the bedside Objective Vital Signs / I&O: Vital Signs 02/01/18 09:15 02/01/18 09:30 02/01/18 09:31 Temperature Pulse Rate 97 H 91 H 88 Respiratory Rate Blood Pressure 114/59 L Pulse Oximetry 97 96 95 02/01/18 09:34 02/01/18 09:45 02/01/18 10:00 Temperature Pulse Rate 91 H 94 H 96 H Respiratory Rate Blood Pressure 130/61 Pulse Oximetry 98 96 96 02/01/18 10:15 02/01/18 10:30 02/01/18 10:45 Temperature Pulse Rate 99 H 99 H 104 H Respiratory Rate Blood Pressure Pulse Oximetry 96 96 96 02/01/18 11:00 02/01/18 11:15 02/01/18 11:30 Temperature Pulse Rate 99 H 97 H 97 H Respiratory Rate Blood Pressure Pulse Oximetry 96 97 96 02/01/18 11:45 02/01/18 12:00 02/01/18 12:15 Temperature 100.8 F H Pulse Rate 101 H 91 H 93 H Respiratory Rate Blood Pressure Pulse Oximetry 96 97 97 02/01/18 12:30 02/01/18 12:45 02/01/18 13:00 Temperature Pulse Rate 93 H 90 92 H Respiratory Rate Blood Pressure Pulse Oximetry 94 L 94 L 96 02/01/18 13:15 02/01/18 13:30 02/01/18 13:45 Temperature Pulse Rate 90 91 H 95 H Respiratory Rate Blood Pressure Pulse Oximetry 94 L 96 96 02/01/18 14:00 02/01/18 14:15 02/01/18 14:30 Temperature Pulse Rate 89 96 H 90 Respiratory Rate Blood Pressure Pulse Oximetry 94 L 95 92 L 02/01/18 14:45 02/01/18 15:00 02/01/18 15:15 Temperature Pulse Rate 96 H 94 H 93 H Respiratory Rate Blood Pressure Pulse Oximetry 93 L 93 L 95 02/01/18 15:20 02/01/18 15:30 02/01/18 15:45 Temperature Pulse Rate 101 H 107 H Respiratory Rate Blood Pressure Pulse Oximetry 95 95 98 02/01/18 16:00 02/01/18 16:15 02/01/18 16:21 Temperature 99.8 F H Pulse Rate 97 H 93 H Respiratory Rate 14 Blood Pressure Pulse Oximetry 97 98 96 02/01/18 16:24 02/01/18 16:30 02/01/18 16:45 Temperature Pulse Rate 89 92 H 88 Respiratory Rate 14 Blood Pressure Pulse Oximetry 96 95 02/01/18 17:00 02/01/18 17:15 02/01/18 17:30 Temperature Pulse Rate 89 89 97 H Respiratory Rate Blood Pressure Pulse Oximetry 97 94 L 78 L 02/01/18 19:00 02/01/18 19:15 12/08/18 19:30 Temperature Pulse Rate 83 89 92 H Respiratory Rate Blood Pressure Pulse Oximetry 98 97 98 02/01/18 19:45 02/01/18 20:00 02/01/18 20:15 Temperature 99.1 F Pulse Rate 87 87 87 Respiratory Rate Blood Pressure Pulse Oximetry 96 97 97 02/01/18 20:17 02/01/18 20:30 02/01/18 20:45 Temperature Pulse Rate 93 H 85 90 Respiratory Rate 21 Blood Pressure Pulse Oximetry 96 97 96 02/01/18 21:00 02/01/18 21:15 02/01/18 21:30 Temperature Pulse Rate 90 96 H 94 H Respiratory Rate Blood Pressure Pulse Oximetry 97 93 L 96 02/01/18 21:45 02/01/18 22:00 02/01/18 22:15 Temperature Pulse Rate 95 H 89 95 H Respiratory Rate 20 Blood Pressure Pulse Oximetry 97 97 96 02/01/18 22:30 02/01/18 22:45 02/01/18 23:00 Temperature Pulse Rate 98 H 92 H 97 H Respiratory Rate Blood Pressure Pulse Oximetry 97 97 97 02/01/18 23:15 02/01/18 23:30 02/01/18 23:36 Temperature Pulse Rate 96 H 95 H Respiratory Rate 18 Blood Pressure Pulse Oximetry 96 95 97 02/01/18 23:45 02/02/18 00:00 02/02/18 00:15 Temperature 100.5 F H Pulse Rate 92 H 90 91 H Respiratory Rate 19 Blood Pressure Pulse Oximetry 97 97 97 02/02/18 00:30 02/02/18 00:45 02/02/18 01:00 Temperature Pulse Rate 99 H 93 H 90 Respiratory Rate 18 Blood Pressure Pulse Oximetry 96 97 96 02/02/18 01:15 02/02/18 01:30 02/02/18 01:45 Temperature Pulse Rate 91 H 95 H 94 H Respiratory Rate Blood Pressure Pulse Oximetry 95 95 96 02/02/18 02:00 02/02/18 02:15 02/02/18 02:30 Temperature Pulse Rate 94 H 92 H 87 Respiratory Rate Blood Pressure Pulse Oximetry 96 96 96 02/02/18 02:45 02/02/18 03:00 02/02/18 03:15 Temperature Pulse Rate 91 H 89 97 H Respiratory Rate Blood Pressure Pulse Oximetry 95 95 96 12/09/18 03:30 02/02/18 03:45 02/02/18 03:55 Temperature Pulse Rate 85 93 H 82 Respiratory Rate 18 Blood Pressure Pulse Oximetry 96 96 96 02/02/18 04:00 02/02/18 04:15 02/02/18 04:30 Temperature Pulse Rate 94 H 89 96 H Respiratory Rate Blood Pressure Pulse Oximetry 95 97 94 L 02/02/18 04:45 02/02/18 05:00 02/02/18 05:15 Temperature Pulse Rate 87 90 90 Respiratory Rate Blood Pressure Pulse Oximetry 95 94 L 93 L 02/02/18 05:30 02/02/18 05:45 02/02/18 05:54 Temperature Pulse Rate 96 H 95 H Respiratory Rate Blood Pressure 150/67 H Pulse Oximetry 92 L 85 L 97 02/02/18 06:00 02/02/18 06:15 02/02/18 06:30 Temperature 99.7 F H Pulse Rate 103 H 105 H 90 Respiratory Rate 21 Blood Pressure Pulse Oximetry 95 93 L 96 02/02/18 06:45 02/02/18 07:00 02/02/18 07:15 Temperature Pulse Rate 99 H 92 H 93 H Respiratory Rate Blood Pressure Pulse Oximetry 96 96 96 02/02/18 07:30 02/02/18 07:45 02/02/18 08:00 Temperature 99.4 F Pulse Rate 98 H 89 91 H Respiratory Rate Blood Pressure Pulse Oximetry 95 96 96 02/02/18 08:15 02/02/18 08:30 02/02/18 08:45 Temperature Pulse Rate 94 H 88 93 H Respiratory Rate Blood Pressure Pulse Oximetry 97 97 97 Intake & Output 02/01/18 02/02/18 02/02/18 18:59 06:59 18:59 Intake Total 1503 / 1503 1257 / 1257 Output Total 810 / 810 530 / 530 Balance 693 / 693 727 / 727 Weight 76.8 kg Intake: IV 750 / 750 400 / 400 Flexbumin 25% Inj 100 ML @ 60 100 / 100 100 / 100 mls/hr IV.SIG Q12H [facility] Rx#: [id number] Azactam Inj 2 GM In NS Inj 100 200 / 200 100 / 100 ML @ 200 mls/hr IV.SIG Q6H [facility] Rx#:[id number] Teflaro Inj 300 MG In NS Inj 100 / 100 100 / 100 100 ML @ 100 mls/hr IV.SIG Q12H [facility] Rx#:[id number] Mycamine Inj 150 MG In NS Inj 100 / 100 100 ML @ 100 mls/hr IV.SIG Q24H [facility] Rx#:[id number] Levophed-Dextrose 4 mg/250 ml 250 / 250 Drip 4 mg In 250 ml @ 2 MCG/MIN 7.5 mls/hr IV.SIG TITRATE PRN Rx#:[id number] KCl 40 mEq Premix Inj 40 meq In 100 / 100 100 ml @ 25 mls/hr IV.SIG ONCE ONE Rx#:[id number] Tube Feeding 633 / 633 597 / 597 Tube Irrigant 120 / 120 Water Bolus Amount 260 / 260 Output: Urine 750 / 750 Urine Amount (Catheter) 450 / 450 Indwelling Urethral Catheter 450 / 450 Wound Drainage 60 / 60 30 / 30 Left Shoulder 35 / 35 20 / 20 Right Shoulder 25 / 25 10 / 10 Chest Tube Drainage 50 / 50 Right 50 / 50 Other: Date of Last Bowel Movement 01/29/18 01/29/18 01/29/18 # Incontinent Bowel Movements 2 Result Diagrams: 02/02/18 05:40 02/02/18 05:40 Objective Remarks: General: Arousable, orally intubated on mechanical ventilation HEENT: Positive pallor, no icterus, oral intubated Neck : Left IJ central line in place Chest/pulm: Orally intubated on mechanical ventilation, air entry decreased bilaterally at bases, scattered rhonchi, no wheezing. Right-sided pigtail catheter in place, 50 ml output in 24 hours CVS: S1S2, irregular rhythm. On Levophed at 2 mcg/min Abd: Soft, nontender, bowel sounds present. No guarding. No distention. Ext: Warm bilaterally. Dressing over bilateral shoulder surgical site clean dry and intact. ZOEY drains in place. Trace peripheral edema Neuro: Arousable, orally intubated on mechanical ventilation. Grossly nonfocal. Follows commands on upper and lower extremity, remains weak Assessment and Plan - Assessment and Plan Plan: Assessment and Plan: Acute combined hypercapnic and hypoxemic respiratory failure Fluid overload/noncardiogenic Pulmonary edema secondary to sepsis MRSA pneumonia Mucus plugging -Bronchodilators -BNP elevated, diuresed to mobilize fluid -Scott required for BPH as well as diuresis -intubated and placed on mech ventilation on 01/22. -Status post bronchoscopy with BAL on 01/22 with significant mucus plugging noted in the right-sided airways including right mainstem bronchus for which BAL was performed with significant clearing of airway. Bronchial washing sent for Gram stain and cultures. Follow-up chest x-ray post bronchoscopy showed significant improvement in aeration of right lung. -Continue mechanical ventilation, vent bundle. Mucomyst to mobilize secretions. -Frequent suctioning required -Previously extubated 01/25. -Required BiPAP on 01/29 and was intubated for bilateral shoulder surgery and remains on mechanical ventilation since 01/[address] chest with bilateral effusions. S/p CT-guided right-sided thoracentesis/ pigtail catheter placement with IR on 01/30. -Status post bronchoscopy 02/02/[address] Morales -right mainstem bronchus with some mucous plugs noted which was suctioned out. Minimal mucus plugging bilateral lower lungs -Dr. Jacky Macias for pulmonary per family request. -Daily CPAP trials to decide extubation -Get patient up to chair while on the vent. PT OT daily MRSA septicemia, septic right shoulder, L spine diskitis, left supraclavicular abscess sepsis Right shoulder effusion. septic right shoulder, s/p I&D Urinary tract infection. 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 Taper steroid Blood cultures positive for MRSA. 2D echocardiogram did not show any findings consistent with vegetations. Patient also had a right shoulder effusion, orthopedics aspirated the shoulder - approximately 30 cc of purulent fluid. Orthopedics performed surgery/drainage of bilateral shoulder collections on 01/29 Continue IV antibiotics per infectious disease recommendations. Infectious disease following NM WBC scan 01/18/18 and 01/19/18. Imaging discussed with radiology and it seems patient with multiple focal infections bilateral shoulders, also back at the hardware with diskitis/ osteomyelitis. Neurology, ID, hem onc ff. IR consulted s/p CT-guided drainage of left posterior supraclavicular/posterior chest wall abscess on 01/17/18. s/p US guided drainage of shoulder collection by IR done on 01/23 KEKE on CKD. Getting diuresed, Strict I/O, monitor/ replete electrolytes, follow BUN/ Cr Nephrology following, appreciate recs. IV Lasix per nephrology Significant fluid removal with diuresis but creatinine increased. prerenal azotemia noted CVS Atrial Fibrillation, permanent Noncardiogenic pulmonary edema Hypotension Rate well controlled. Recent ECHO EF 65% Dr. Garner following-discussed with Dr. Garner on 01/22. We agreed with diuresing patient for noncardiogenic pulmonary edema while watching renal function/ BP. Remains on Levophed to maintain map above 65 Holding amlodipine and Lopressor in view of labile blood pressure requiring Levophed. Lasix 40 mg IV x1 dose ordered on 01/29 for positive fluid balance and worsening respiratory status, Lasix 40 mg IV daily will be continued while watching renal function to keep an even fluid balance. Anemia 1 unit PRBCs ordered to be transfused on 01/23, 1 unit PRBCs ordered on 01/28 to keep hemoglobin above 8 g%. No overt evidence of blood loss. Follow CBC. Transfuse 1 unit PRBC Protein calorie malnutrition -Inserted NGT 01/22 following intubation, Continue tube feeds and advance to goal as well tolerated. BPH - Continue Flomax. DVT prophylaxis per surgeon Access: RIJ central line placed 01/22 -discontinued on 01/31. New left IJ central line placed 01/31 01/22: D/w Dr. Mani Sherman, D/W [employer] IN[employer]CTOR, D/W patient's family at bedside. 01/23 D/W patient's daughter at bedside regarding current clinical status and plan of care and they voiced understanding and were agreeable with plan of care. D/W ID-Dr Tom on 01/23 01/24: Discussed with patient's family at bedside regarding current clinical status and plan of care and they voiced understanding. Discussed with ID Dr. Tom, discussed with Dr. Piña. Discussed with [employer] INSTRUCTOR. 01/25: I spoke with patient's daughter at the bedside this morning. We discussed goals for ventilator weaning and nutrition. I spoke with extensive family members later in the day. 01/26: I spoke at length with the patient's daughter this morning and will speak extensively with other family members later today. 01/27: I spoke with patient's family member at bedside regarding his respiratory status and plan of care and he voiced understanding. Will come back and update other family members later. 01/28: I updated family regarding plan of care. 01/29: Update multiple family members regarding clinical status including borderline respiratory status requiring BiPAP. Patient scheduled for surgery which was also discussed. I explained that patient will probably remain on mechanical ventilation postoperatively until improvement in respiratory status. 01/30: Treated patient's family regarding current clinical status including plan of care. Discussed need for thoracentesis and pigtail catheter placement for right effusion and possible need for bronchoscopy/BAL. They voiced understanding and were agreeable with plan of care. Discussed with Dr. Tom , discussed with Dr. Jacky Macias from pulmonary who was consulted as well for further evaluation of respiratory failure. 01/31: Discussed with patient's daughter/multiple family members at bedside regarding current clinical status and plan of care and they voiced understanding and was agreeable. Discussed with ID Dr. Tom 02/01: Discussed with patient son at bedside regarding current clinical status and plan of care and he voiced understanding and was agreeable. 02/02: Updated family members at the bedside Condition critical Time spent on critical care excluding procedures 35-minute Code Status: Full
--- NOTE | 2018-02-02 09:04 | US ---
EXAM DATE: 02/02/2018 8:56 AM EST AGE/SEX: 82 years / Male INDICATIONS: Bilateral leg swelling. CLINICAL DATA: This is the patient's initial encounter. Patient reports that signs and symptoms have been present for 1 day and indicates a pain score of Nonresponsive. MEDICAL/SURGICAL HISTORY: Hypertension. Hypothyroidism. Atrial Fibrillation. BPH. PUD. . Neck Surgery. COMPARISON: [facility] – [place], [place] VENOUS DOPPLER LEG RIGHT, 01/14/2018. . TECHNIQUE: Venous ultrasound of both lower extremities was performed from the inguinal ligament to t he proximal calf. Real-time, color Doppler and spectral tracing, compression and augmentation techni ques were used. FINDINGS: Right Leg: Normal compression of the deep venous system from the inguinal region to the proximal camilo f. No echogenic clot is seen. Normal response of the venous system to augmentation and respiration. Left Leg: Normal compression of the deep venous system from the inguinal region to the proximal calf . No echogenic clot is seen. Normal response of the venous system to augmentation and respiration. Other: None. CONCLUSION: The study is negative for bilateral lower extremity deep venous thrombosis. Electronically signed by: Danial Alfaro MD 02/02/2018 9:03 AM EST
[2018-02-02] MEDS ORDERED: Sodium Chlor 0.9% Inj 250 ML IV.SIG SCH (10:00)
--- NOTE | 2018-02-02 10:29 | P.PNOP ---
Subjective Interval history: Patient intubated. Patient alert. Denies any shoulder pain. Physical Exam Vital signs: Vital Signs 02/01/18 10:30 02/01/18 10:45 02/01/18 11:00 Temperature Pulse Rate 99 H 104 H 99 H Respiratory Rate Blood Pressure Pulse Oximetry 96 96 96 02/01/18 11:15 02/01/18 11:30 02/01/18 11:45 Temperature Pulse Rate 97 H 97 H 101 H Respiratory Rate Blood Pressure Pulse Oximetry 97 96 96 02/01/18 12:00 02/01/18 12:15 02/01/18 12:30 Temperature 100.8 F H Pulse Rate 91 H 93 H 93 H Respiratory Rate Blood Pressure Pulse Oximetry 97 97 94 L 02/01/18 12:45 02/01/18 13:00 02/01/18 13:15 Temperature Pulse Rate 90 92 H 90 Respiratory Rate Blood Pressure Pulse Oximetry 94 L 96 94 L 02/01/18 13:30 02/01/18 13:45 02/01/18 14:00 Temperature Pulse Rate 91 H 95 H 89 Respiratory Rate Blood Pressure Pulse Oximetry 96 96 94 L 02/01/18 14:15 02/01/18 14:30 02/01/18 14:45 Temperature Pulse Rate 96 H 90 96 H Respiratory Rate Blood Pressure Pulse Oximetry 95 92 L 93 L 02/01/18 15:00 02/01/18 15:15 02/01/18 15:20 Temperature Pulse Rate 94 H 93 H Respiratory Rate Blood Pressure Pulse Oximetry 93 L 95 95 02/01/18 15:30 02/01/18 15:45 02/01/18 16:00 Temperature 99.8 F H Pulse Rate 101 H 107 H 97 H Respiratory Rate Blood Pressure Pulse Oximetry 95 98 97 02/01/18 16:15 02/01/18 16:21 02/01/18 16:24 Temperature Pulse Rate 93 H 89 Respiratory Rate 14 14 Blood Pressure Pulse Oximetry 98 96 02/01/18 16:30 02/01/18 16:45 02/01/18 17:00 Temperature Pulse Rate 92 H 88 89 Respiratory Rate Blood Pressure Pulse Oximetry 96 95 97 02/01/18 17:15 02/01/18 17:30 02/01/18 19:00 Temperature Pulse Rate 89 97 H 83 Respiratory Rate Blood Pressure Pulse Oximetry 94 L 78 L 98 02/01/18 19:15 02/01/18 19:30 02/01/18 19:45 Temperature Pulse Rate 89 92 H 87 Respiratory Rate Blood Pressure Pulse Oximetry 97 98 96 02/01/18 20:00 02/01/18 20:15 02/01/18 20:17 Temperature 99.1 F Pulse Rate 87 87 93 H Respiratory Rate 21 Blood Pressure Pulse Oximetry 97 97 96 02/01/18 20:30 02/01/18 20:45 02/01/18 21:00 Temperature Pulse Rate 85 90 90 Respiratory Rate Blood Pressure Pulse Oximetry 97 96 97 02/01/18 21:15 02/01/18 21:30 02/01/18 21:45 Temperature Pulse Rate 96 H 94 H 95 H Respiratory Rate Blood Pressure Pulse Oximetry 93 L 96 97 02/01/18 22:00 02/01/18 22:15 02/01/18 22:30 Temperature Pulse Rate 89 95 H 98 H Respiratory Rate 20 Blood Pressure Pulse Oximetry 97 96 97 02/01/18 22:45 02/01/18 23:00 02/01/18 23:15 Temperature Pulse Rate 92 H 97 H 96 H Respiratory Rate Blood Pressure Pulse Oximetry 97 97 96 02/01/18 23:30 02/01/18 23:36 02/01/18 23:45 Temperature Pulse Rate 95 H 92 H Respiratory Rate 18 Blood Pressure Pulse Oximetry 95 97 97 02/02/18 00:00 02/02/18 00:15 02/02/18 00:30 Temperature 100.5 F H Pulse Rate 90 91 H 99 H Respiratory Rate 19 Blood Pressure Pulse Oximetry 97 97 96 02/02/18 00:45 02/02/18 01:00 02/02/18 01:15 Temperature Pulse Rate 93 H 90 91 H Respiratory Rate 18 Blood Pressure Pulse Oximetry 97 96 95 02/02/18 01:30 02/02/18 01:45 02/02/18 02:00 Temperature Pulse Rate 95 H 94 H 94 H Respiratory Rate Blood Pressure Pulse Oximetry 95 96 96 02/02/18 02:15 02/02/18 02:30 02/02/18 02:45 Temperature Pulse Rate 92 H 87 91 H Respiratory Rate Blood Pressure Pulse Oximetry 96 96 95 02/02/18 03:00 02/02/18 03:15 02/02/18 03:30 Temperature Pulse Rate 89 97 H 85 Respiratory Rate Blood Pressure Pulse Oximetry 95 96 96 02/02/18 03:45 02/02/18 03:55 02/02/18 04:00 Temperature Pulse Rate 93 H 82 94 H Respiratory Rate 18 Blood Pressure Pulse Oximetry 96 96 95 02/02/18 04:15 02/02/18 04:30 02/02/18 04:45 Temperature Pulse Rate 89 96 H 87 Respiratory Rate Blood Pressure Pulse Oximetry 97 94 L 95 02/02/18 05:00 02/02/18 05:15 02/02/18 05:30 Temperature Pulse Rate 90 90 96 H Respiratory Rate Blood Pressure Pulse Oximetry 94 L 93 L 92 L 02/02/18 05:45 02/02/18 05:54 02/02/18 06:00 Temperature 99.7 F H Pulse Rate 95 H 103 H Respiratory Rate 21 Blood Pressure 150/67 H Pulse Oximetry 85 L 97 95 02/02/18 06:15 02/02/18 06:30 02/02/18 06:45 Temperature Pulse Rate 105 H 90 99 H Respiratory Rate Blood Pressure Pulse Oximetry 93 L 96 96 02/02/18 07:00 02/02/18 07:15 02/02/18 07:30 Temperature Pulse Rate 92 H 93 H 98 H Respiratory Rate Blood Pressure Pulse Oximetry 96 96 95 02/02/18 07:45 02/02/18 08:00 02/02/18 08:15 Temperature 99.4 F Pulse Rate 89 91 H 94 H Respiratory Rate Blood Pressure Pulse Oximetry 96 96 97 02/02/18 08:30 02/02/18 08:45 02/02/18 09:00 Temperature Pulse Rate 88 93 H 90 Respiratory Rate Blood Pressure Pulse Oximetry 97 97 96 02/02/18 09:15 02/02/18 09:30 02/02/18 09:34 Temperature Pulse Rate 89 87 80 Respiratory Rate 18 Blood Pressure Pulse Oximetry 96 96 99 02/02/18 09:45 02/02/18 10:00 Temperature Pulse Rate 88 93 H Respiratory Rate Blood Pressure Pulse Oximetry 96 95 Intake & Output 02/01/18 02/02/18 02/02/18 18:59 06:59 18:59 Intake Total 1503 / 1503 2257 / 2257 100 / 100 Output Total 810 / 810 530 / 530 Balance 693 / 693 1727 / 1727 100 / 100 Weight 76.8 kg Intake: IV 750 / 750 1400 / 1400 100 / 100 D5W Inj 1,000 ML @ 20 mls/hr IV 1000 / 1000 .CONT .Q24H [facility] Rx#:[id number] Flexbumin 25% Inj 100 ML @ 60 100 / 100 100 / 100 mls/hr IV.SIG Q12H [facility] Rx#: [id number] Azactam Inj 2 GM In NS Inj 100 200 / 200 100 / 100 100 / 100 ML @ 200 mls/hr IV.SIG Q6H [facility] Rx#:[id number] Teflaro Inj 300 MG In NS Inj 100 / 100 100 / 100 100 ML @ 100 mls/hr IV.SIG Q12H [facility] Rx#:[id number] Mycamine Inj 150 MG In NS Inj 100 / 100 100 ML @ 100 mls/hr IV.SIG Q24H [facility] Rx#:[id number] Levophed-Dextrose 4 mg/250 ml 250 / 250 Drip 4 mg In 250 ml @ 2 MCG/MIN 7.5 mls/hr IV.SIG TITRATE PRN Rx#:[id number] KCl 40 mEq Premix Inj 40 meq In 100 / 100 100 ml @ 25 mls/hr IV.SIG ONCE ONE Rx#:[id number] Tube Feeding 633 / 633 597 / 597 Tube Irrigant 120 / 120 Water Bolus Amount 260 / 260 Output: Urine 750 / 750 Urine Amount (Catheter) 450 / 450 Indwelling Urethral Catheter 450 / 450 Wound Drainage 60 / 60 30 / 30 Left Shoulder 35 / 35 20 / 20 Right Shoulder 25 / 25 10 / 10 Chest Tube Drainage 50 / 50 Right 50 / 50 Other: Date of Last Bowel Movement 01/29/18 01/29/18 01/29/18 # Incontinent Bowel Movements 2 Narrative: Right shoulder drain intact output of 35 cc serosanguineous drainage last night dressing C/D/I Left shoulder drain intact output of 25 cc serosanguineous drainage last night dressing C/D/I - Urinary Catheter Management Condom Cath placed during this visit: no Indwelling Urethral Catheter Cath placed during this visit: yes Reason for continuing: Hourly intake/output Insertion date: 01/20/18 Insertion time: 11:30 Results - Labs CBC & Chem 7: 02/02/18 05:40 02/02/18 05:40 Laboratory Results - last 24 hr 12/09/18 12/09/18 12/09/18 05:40 05:40 09:44 WBC 8.1 RBC 2.60 L Hgb 7.1 L Hct 21.4 L MCV 82.4 MCH 27.4 MCHC 33.3 RDW 19.6 H Plt Count 174 MPV 9.2 Prelim Diff (Auto) Slide review pending Neut % (Auto) 90.1 H Lymph % (Auto) 6.5 L Roberts % (Auto) 2.3 Eos % (Auto) 1.1 Baso % (Auto) 0.0 Neut # (Auto) 7.3 Lymph # (Auto) 0.5 L Roberts # (Auto) 0.2 Eos # (Auto) 0.1 Baso # (Auto) 0.0 Differential Comment . Sodium 139 Potassium 3.5 Chloride 107 Carbon Dioxide 22.6 Anion Gap 9 BUN 54 H Creatinine 2.10 H Estimated GFR 31 L Random Glucose 137 H Calcium 7.7 L Magnesium 2.2 Total Bilirubin 1.6 H AST 12 L ALT 9 L Alkaline Phosphatase 346 H Total Protein 5.4 L Albumin 2.2 L D Blood Type O Positive MTS Gel Crossmatch See Detail Microbiology 01/30/18 15:00 Fluid - Pleural fluid Gram Stain - Final 01/30/18 15:00 Fluid - Pleural fluid Body Fluid Culture - Final No growth in 72 hours (aerobically and anaerobically ) 01/31/18 13:15 Catheterized Urine Urine Culture - Final No growth in 48 hours 01/31/18 11:16 Blood - Peripheral Aerobic Blood Culture - Preliminary No growth in 1 day 01/31/18 11:16 Blood - Peripheral Anaerobic Blood Culture - Preliminary No growth in 1 day 01/31/18 11:10 Blood - Peripheral Aerobic Blood Culture - Preliminary No growth in 1 day 01/31/18 11:10 Blood - Peripheral Anaerobic Blood Culture - Preliminary No growth in 1 day 01/29/18 14:11 Wound - Shoulder Gram Stain - Final 01/29/18 14:11 Wound - Shoulder Wound Culture - Final No growth in 72 hours (aerobically and anaerobically ) 01/29/18 14:10 Wound - Shoulder Gram Stain - Final 01/29/18 14:10 Wound - Shoulder Wound Culture - Final No growth in 72 hours (aerobically and anaerobically ) 01/29/18 13:59 Wound - Shoulder Gram Stain - Final 01/29/18 13:59 Wound - Shoulder Wound Culture - Final No growth in 72 hours (aerobically and anaerobically ) 01/29/18 13:58 Wound - Shoulder Gram Stain - Final 01/29/18 13:58 Wound - Shoulder Wound Culture - Final No growth in 72 hours (aerobically and anaerobically ) - Imaging Impressions Chest X-Ray 02/01/18 00:00 CONCLUSION: ET tube in a low position 1.5 cm from the karan. Right chest tube without evidence of pneumothorax. Suspected atelectasis, consolidation and/or effusion at the left mid and lower lung. Chest X-Ray 02/01/18 14:36 CONCLUSION: 1. Stable left basilar opacity most likely representing pleural effusion with associated atelectasis or consolidation. 2. Right chest tube remains present and no pneumothorax is visualized. Venous Doppler Study 02/02/18 00:00 CONCLUSION: The study is negative for bilateral lower extremity deep venous thrombosis. Chest X-Ray 02/02/18 05:00 CONCLUSION: Left lower lobe consolidation. - Procedures Right shoulder consent for aspiration obtained. Time out performed. Right shoulder prepped sterilely with alcohol and betadine. Sterile gloves doned. Right shoulder aspirated and sent for gram stain, culture, crystals, and cell count. 30 cc of purulent drainage aspirated and sent to lab. sterile dressing applied. Patient tolerated procedure well. Assessment and Plan - Assessment and Plan Abscess right shoulder. 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 Surgery: Right shoulder arthrotomy with irrigation and drain placement (2017) Right shoulder arthrotomy with irrigation and drain placement (01/29/2018) Left shoulder arthrotomy with irrigation and drain placement (2017) PLAN: 1. IV antibiotics per infectious disease. Intraoperative cultures taken of both shoulders. Previous cultures show MRSA. 72 hours CX are showing no growth. 2. Source of sepsis likely from a history of previous MRSA from lumbar spine. Possible indolent infection that has developed an abscess of the bilateral shoulders. We will defer to neurosurgery and other specialists for overall management of lumbar spine. Current plan is to remain conservative and forego removal of hardware from the lumbar spine which is likely the source of his ongoing infection. 3. Recent bronchoscope performed showing mucous plugs as well as MRSA. Patient reintubated for surgery and remains on ventilator at this time. 4. Maintain dressings and drains. Drains will be pulled when overall output is minimal. (75 cc output right, 40 cc output left in 24 hour period). 5. Ortho will continue to follow.
[2018-02-02 11:36] LABS: Dimorphic RBC Present; Eosinophils 2 % (0-4); Lymphocytes 7 % (9-44); Metamyelocytes 1 % (0-1); Monocytes 4 % (0-8); Myelocytes 1 % (0-0); Ovalocytes 1+; Platelet Estimate Normal (Normal); Platelet Morphology Normal (Normal); Tear Drop Cells 1+; Toxic Granulation 2+
[2018-02-02] MEDS: Micafungin Inj 150 MG in Sodium Chlor 0.9% Inj 100 ML IV.SIG SCH (13:35)
[2018-02-02] MEDS: Dextrose 5% in Water Inj 1,000 ML IV.CONT SCH (13:35)
[2018-02-02] MEDS ORDERED: Potassium Chlor 40 mEq Premix 40 MEQ/100 ML PIGGYBACK IV.SIG ONE (14:55)
--- NOTE | 2018-02-02 15:01 | P.PNNP ---
Subjective Interval history: Patient remains critically ill on ventilator follows commands Physical Exam Vital signs: Vital Signs 02/01/18 15:00 02/01/18 15:15 02/01/18 15:20 Temperature Pulse Rate 94 H 93 H Respiratory Rate Blood Pressure Pulse Oximetry 93 L 95 95 02/01/18 15:30 02/01/18 15:45 02/01/18 16:00 Temperature 99.8 F H Pulse Rate 101 H 107 H 97 H Respiratory Rate Blood Pressure Pulse Oximetry 95 98 97 02/01/18 16:15 02/01/18 16:21 02/01/18 16:24 Temperature Pulse Rate 93 H 89 Respiratory Rate 14 14 Blood Pressure Pulse Oximetry 98 96 02/01/18 16:30 02/01/18 16:45 02/01/18 17:00 Temperature Pulse Rate 92 H 88 89 Respiratory Rate Blood Pressure Pulse Oximetry 96 95 97 02/01/18 17:15 02/01/18 17:30 02/01/18 19:00 Temperature Pulse Rate 89 97 H 83 Respiratory Rate Blood Pressure Pulse Oximetry 94 L 78 L 98 02/01/18 19:15 02/01/18 19:30 02/01/18 19:45 Temperature Pulse Rate 89 92 H 87 Respiratory Rate Blood Pressure Pulse Oximetry 97 98 96 02/01/18 20:00 02/01/18 20:15 02/01/18 20:17 Temperature 99.1 F Pulse Rate 87 87 93 H Respiratory Rate 21 Blood Pressure Pulse Oximetry 97 97 96 02/01/18 20:30 02/01/18 20:45 02/01/18 21:00 Temperature Pulse Rate 85 90 90 Respiratory Rate Blood Pressure Pulse Oximetry 97 96 97 02/01/18 21:15 02/01/18 21:30 02/01/18 21:45 Temperature Pulse Rate 96 H 94 H 95 H Respiratory Rate Blood Pressure Pulse Oximetry 93 L 96 97 02/01/18 22:00 02/01/18 22:15 02/01/18 22:30 Temperature Pulse Rate 89 95 H 98 H Respiratory Rate 20 Blood Pressure Pulse Oximetry 97 96 97 02/01/18 22:45 02/01/18 23:00 02/01/18 23:15 Temperature Pulse Rate 92 H 97 H 96 H Respiratory Rate Blood Pressure Pulse Oximetry 97 97 96 02/01/18 23:30 02/01/18 23:36 02/01/18 23:45 Temperature Pulse Rate 95 H 92 H Respiratory Rate 18 Blood Pressure Pulse Oximetry 95 97 97 02/02/18 00:00 02/02/18 00:15 02/02/18 00:30 Temperature 100.5 F H Pulse Rate 90 91 H 99 H Respiratory Rate 19 Blood Pressure Pulse Oximetry 97 97 96 02/02/18 00:45 02/02/18 01:00 02/02/18 01:15 Temperature Pulse Rate 93 H 90 91 H Respiratory Rate 18 Blood Pressure Pulse Oximetry 97 96 95 02/02/18 01:30 02/02/18 01:45 02/02/18 02:00 Temperature Pulse Rate 95 H 94 H 94 H Respiratory Rate Blood Pressure Pulse Oximetry 95 96 96 02/02/18 02:15 02/02/18 02:30 02/02/18 02:45 Temperature Pulse Rate 92 H 87 91 H Respiratory Rate Blood Pressure Pulse Oximetry 96 96 95 02/02/18 03:00 02/02/18 03:15 02/02/18 03:30 Temperature Pulse Rate 89 97 H 85 Respiratory Rate Blood Pressure Pulse Oximetry 95 96 96 02/02/18 03:45 02/02/18 03:55 02/02/18 04:00 Temperature Pulse Rate 93 H 82 94 H Respiratory Rate 18 Blood Pressure Pulse Oximetry 96 96 95 02/02/18 04:15 02/02/18 04:30 02/02/18 04:45 Temperature Pulse Rate 89 96 H 87 Respiratory Rate Blood Pressure Pulse Oximetry 97 94 L 95 02/02/18 05:00 02/02/18 05:15 02/02/18 05:30 Temperature Pulse Rate 90 90 96 H Respiratory Rate Blood Pressure Pulse Oximetry 94 L 93 L 92 L 02/02/18 05:45 02/02/18 05:54 02/02/18 06:00 Temperature 99.7 F H Pulse Rate 95 H 103 H Respiratory Rate 21 Blood Pressure 150/67 H Pulse Oximetry 85 L 97 95 02/02/18 06:15 02/02/18 06:30 02/02/18 06:45 Temperature Pulse Rate 105 H 90 99 H Respiratory Rate Blood Pressure Pulse Oximetry 93 L 96 96 02/02/18 07:00 02/02/18 07:15 02/02/18 07:30 Temperature Pulse Rate 92 H 93 H 98 H Respiratory Rate Blood Pressure Pulse Oximetry 96 96 95 02/02/18 07:45 02/02/18 08:00 02/02/18 08:15 Temperature 99.4 F Pulse Rate 89 91 H 94 H Respiratory Rate Blood Pressure Pulse Oximetry 96 96 97 02/02/18 08:30 02/02/18 08:45 02/02/18 09:00 Temperature Pulse Rate 88 93 H 90 Respiratory Rate Blood Pressure Pulse Oximetry 97 97 96 02/02/18 09:15 02/02/18 09:30 02/02/18 09:34 Temperature Pulse Rate 89 87 80 Respiratory Rate 18 Blood Pressure Pulse Oximetry 96 96 99 02/02/18 09:45 02/02/18 10:00 02/02/18 10:15 Temperature Pulse Rate 88 93 H 99 H Respiratory Rate Blood Pressure Pulse Oximetry 96 95 96 02/02/18 10:42 02/02/18 10:45 02/02/18 11:00 Temperature Pulse Rate 98 H 103 H Respiratory Rate 28 H Blood Pressure Pulse Oximetry 97 92 L 94 L 02/02/18 11:15 02/02/18 11:30 02/02/18 11:31 Temperature 99.8 F H 99.2 F Pulse Rate 101 H 108 H 101 H Respiratory Rate 30 H Blood Pressure 113/48 L Pulse Oximetry 95 93 L 93 L 02/02/18 11:45 02/02/18 12:00 02/02/18 12:15 Temperature 99.8 F H Pulse Rate 108 H 106 H 106 H Respiratory Rate Blood Pressure Pulse Oximetry 93 L 93 L 93 L 02/02/18 12:30 02/02/18 12:45 02/02/18 13:00 Temperature Pulse Rate 105 H 109 H 107 H Respiratory Rate Blood Pressure Pulse Oximetry 95 93 L 83 L 02/02/18 13:30 02/02/18 13:45 02/02/18 14:00 Temperature Pulse Rate 90 90 100 H Respiratory Rate Blood Pressure Pulse Oximetry 96 96 95 Intake & Output 02/01/18 02/02/18 02/02/18 18:59 06:59 18:59 Intake Total 1503 / 1503 2257 / 2257 600 / 600 Output Total 810 / 810 530 / 530 Balance 693 / 693 1727 / 1727 600 / 600 Weight 76.8 kg Intake: IV 750 / 750 1400 / 1400 200 / 200 D5W Inj 1,000 ML @ 20 mls/hr IV 1000 / 1000 .CONT .Q24H [facility] Rx#:[id number] Flexbumin 25% Inj 100 ML @ 60 100 / 100 100 / 100 mls/hr IV.SIG Q12H [facility] Rx#: [id number] Azactam Inj 2 GM In NS Inj 100 200 / 200 100 / 100 200 / 200 ML @ 200 mls/hr IV.SIG Q6H [facility] Rx#:[id number] Teflaro Inj 300 MG In NS Inj 100 / 100 100 / 100 100 ML @ 100 mls/hr IV.SIG Q12H [facility] Rx#:[id number] Mycamine Inj 150 MG In NS Inj 100 / 100 100 ML @ 100 mls/hr IV.SIG Q24H [facility] Rx#:[id number] Levophed-Dextrose 4 mg/250 ml 250 / 250 Drip 4 mg In 250 ml @ 2 MCG/MIN 7.5 mls/hr IV.SIG TITRATE PRN Rx#:[id number] KCl 40 mEq Premix Inj 40 meq In 100 / 100 100 ml @ 25 mls/hr IV.SIG ONCE ONE Rx#:[id number] Tube Feeding 633 / 633 597 / 597 Tube Irrigant 120 / 120 Water Bolus Amount 260 / 260 Intake (Blood Product) Amt 400 / 400 Rbc As-3 Leukoreduced Unit 400 / 400 [id number] Output: Urine 750 / 750 Urine Amount (Catheter) 450 / 450 Indwelling Urethral Catheter 450 / 450 Wound Drainage 60 / 60 30 / 30 Left Shoulder 35 / 35 20 / 20 Right Shoulder 25 / 25 10 / 10 Chest Tube Drainage 50 / 50 Right 50 / 50 Other: Date of Last Bowel Movement 01/29/18 01/29/18 01/29/18 # Incontinent Bowel Movements 2 Narrative: GENERAL: Well-nourished, well-developed intubated patient. SKIN: Warm and dry. HEAD: Normocephalic. EYES: No scleral icterus. No injection or drainage. NECK: Supple, trachea midline. No JVD or lymphadenopathy. CARDIOVASCULAR: Regular RESPIRATORY: Breath sounds diminished at bases right chest tube GASTROINTESTINAL: Abdomen soft, non-tender, nondistended. EXTREMITIES: 2+ edema NEUROLOGICAL: Awake, alert, and oriented x 3. Non-focal. - Urinary Catheter Management Condom Cath placed during this visit: no Indwelling Urethral Catheter Cath placed during this visit: yes Reason for continuing: Hourly intake/output Insertion date: 01/20/18 Insertion time: 11:30 Assessment and Plan - Assessment (1) Acute renal failure Code(s): N17.9 - Acute kidney failure, unspecified Status: Acute (2) Atrial fibrillation Code(s): I48.91 - Unspecified atrial fibrillation Status: Acute Qualifiers: Atrial fibrillation type: unspecified Qualified Code(s): I48.91 - Unspecified atrial fibrillation (3) Sepsis Code(s): A41.9 - Sepsis, unspecified organism Status: Acute Qualifiers: Sepsis type: methicillin resistant Staphylococcus aureus Qualified Code(s) : A41.02 - Sepsis due to Methicillin resistant Staphylococcus aureus - Plan Patient received Lasix 1.4 L of urine output yesterday and today dropped to 450 cc Patient creatinine is 2.1 Cultures followed, fever improved Antibiotic coverage increase Azactam and micafungin follow urine culture Patient is on the ventilator status post right chest tube On ceftaroline/vancomycin MRSA infection bilateral shoulder Creatinine elevated Levophed 2 mics Replace potassium as needed give extra Lasix 40 mg as urine output On albumin 25 g every 12 hours
[2018-02-02 16:12] LABS: Hematocrit 25.2 % (39.0-51.0); Hemoglobin 8.3 gm/dL (13.0-17.0)
[2018-02-02] MEDS: Melatonin 5 MG Tablet PO SCH (20:56)
[2018-02-03] MEDS: Ceftaroline Inj 300 MG in Sodium Chlor 0.9% Inj 100 ML IV.SIG SCH ×2 (03:13→17:24)
[2018-02-03] MEDS: Albumin Human 25% Inj 100 ML IV.SIG SCH ×2 (03:13→17:14)
--- NOTE | 2018-02-03 05:08 | XR ---
EXAM DATE: 02/03/2018 4:41 AM EST AGE/SEX: 82 years / Male INDICATIONS: Respiratory distress. CLINICAL DATA: This is the patient's subsequent encounter. Patient reports that signs and symptoms h ave been present for 3 weeks and indicates a pain score of Nonresponsive. MEDICAL/SURGICAL HISTORY: Hypertension. A-Fib. Fusion, lumbar. Chest tube, right. Central du e. COMPARISON: 02/02/2018. FINDINGS: Single AP view the chest. Endotracheal tube, nasogastric tube, left IJ central venous catheter remain in place. Right-sided chest tube remains in place. No evidence of pneumothorax. Mild patchy opacity at the left lung base unchanged. Cardiomediastinal silhouette unchanged. CONCLUSION: No significant interval change. Persistent left lower lung atelectasis. No evidence of pneumothorax. Electronically signed by: Ward Cervantes MD 02/03/2018 5:07 AM EST
[2018-02-03 05:14] LABS: Baso % (Auto) 0.1 % (0.0-2.0); Eos # (Auto) 0.1 th/mm3 (0.0-0.4); Eos % (Auto) 1.1 % (0.0-4.0); Hematocrit 23.2 % (39.0-51.0); Lymph # (Auto) 0.7 th/mm3 (1.0-4.8); Lymph % (Auto) 8.4 % (9.0-44.0); Mean Corpuscular HGB Conc 34.2 % (32.0-36.0); Mean Corpuscular Hemoglobin 27.5 pg (27.0-34.0); Mean Corpuscular Volume 80.3 fL (80.0-100.0); Mean Platelet Volume 9.4 fL (7.0-11.0); Mono # (Auto) 0.2 th/mm3 (0.0-0.9); Mono % (Auto) 2.8 % (0.0-8.0); Neut # (Auto) 7.3 th/mm3 (1.8-7.7); Neut % (Auto) 87.6 % (16.0-70.0); Platelet Count 193 th/mm3 (150-450); Red Blood Count 2.89 mil/mm3 (4.50-5.90); Red Cell Distribution Width 20.4 % (11.6-17.2); White Blood Count 8.4 th/mm3 (4.0-11.0)
[2018-02-03 05:42] LABS: Albumin 2.6 g/dL (3.4-5.0); Anion Gap 11 meq/L (5-15); Aspartate Aminotransferase 9 U/L (15-37); Blood Urea Nitrogen 59 mg/dL (7-18); Calcium 8.3 mg/dL (8.5-10.1); Carbon Dioxide 22.5 meq/L (21.0-32.0); Chloride 106 meq/L (98-107); Glomerular Filtration Rate 30 mL/min (>89); Glucose,Random 154 mg/dL (74-106); Magnesium 2.3 mg/dL (1.5-2.5); Potassium 3.6 meq/L (3.5-5.1); Sodium 139 meq/L (136-145)
[2018-02-03 05:47] LABS: Alanine Aminotransferase 10 U/L (12-78); Alkaline Phosphatase 377 U/L (45-117); Total Protein 5.7 g/dL (6.4-8.2); Vancomycin,Random 20.4 Comment
[2018-02-03] MEDS: Oral Hygiene Kit OROPHARYNG SCH ×4 (06:08→23:47)
[2018-02-03] MEDS: Aztreonam Inj 2 GM in Sodium Chloride 0.9% Inj 100 ML IV.SIG SCH ×2 (06:10→12:42)
[2018-02-03] MEDS: Levothyroxine 100 MCG Tablet PO SCH (06:11)
[2018-02-03 07:07] LABS: Eosinophils 1 % (0-4); Lymphocytes 6 % (9-44); Monocytes 2 % (0-8); Platelet Estimate Normal (Normal)
[2018-02-03 07:08] LABS: Ovalocytes 1+
[2018-02-03 07:09] LABS: Acanthocytes Occ
--- NOTE | 2018-02-03 08:13 | P.PNCC ---
Subjective Subjective Remarks/Hospital Course: This 82-year-old gentleman was transferred emergently from the floor to the surgical intensive care unit because of rapid onset combined hypoxemic and hypercapnic respiratory failure. On arrival he has diffuse crackles throughout both lung santizo and his neck veins are distended. On admission several days ago he was dehydrated and had an element of acute kidney injury. His weight is up about 5 kg since admission though his renal function has improved. On arrival he is breathing 40 times a minute on a nonrebreathing mask with pH of 7.18 and P CO2 of 74. His acidosis is purely respiratory and associated with bronchospasm from fluid overload. B natruretic peptide is elevated to greater than 2000. Other pertinent major problems include septic joint drainage and treatment. 01/22: Critical care reconsulted for worsening resp status. On BIPAP with fulkl face mask. CXR with bilat infiltrates/ pulm edema. Reaccumulated rt shoulder collection. After d/w family proceeded with intubation and placed patient on [facility] ventilation. Placed central line. D/W Dr. Mani Sherman who is arranging US guided drainage/ drain placement for shoulder collection. 01/23: Remains sedated, orally intubated on mechanical ventilation. Significant diuresis with 11 L negative over the last 3 days. Awaiting left shoulder percutaneous drainage of collection by interventional radiology today. 1 unit PRBCs ordered as patient has borderline blood pressures with hemoglobin less than 8. 01/24: Sedated, arousable, orally intubated on mechanical ventilation. Tolerating tube feeds. s/p [id number] drain placement in rt shoulder fluid collection on 01/23. 01/25: He had a good trial on spontaneous breathing yesterday. Mechanical ventilation overnight. Started on spontaneous breathing trial this morning at 12/5 and volumes were small. Increased to 15/8 and volumes looked better with each breath. Still producing lots of thick secretions, dark yellow. Unable to extubate due to general weakness and inability to cough numerous secretions. FiO2 reduced to 40% and gas exchange good. Clearly improved respiratory function from yesterday. Tolerating tube feeds well, gastric residuals minimal , remains constipated and will start on milk of magnesia and. 01/26: Right lower lobe nicely reexpanded after 24 hours on APRV. FI02 reduced to 30%. More alert today, will attempt to extubate. Worsening azotemia appears to be prerenal. We will need to give some volume back. General strength and alertness has improved. 01/27: On BiPAP since last evening. Appears comfortable with 100% O2 sat. Awake and alert. On tube feeds via NG tube 01/28: Resting comfortably, On BIPAP overnight. Tolerating facemask during day prn. Tolerating tube feeds. Hgb 7.1 today, 1 unit PRBCs ordered. 01/29: Was on nasal cannula all day. Last night developed worsening respiratory status and tachypnea for which he was placed on BiPAP. Remains on BiPAP this morning and appears comfortable. Chest x-ray this morning shows haziness over right lung field with probable pulmonary edema versus infiltrate. 01/30: Surgery yesterday for bilateral shoulder collections under general anesthesia, tolerated procedure well was subsequently transferred back to the ICU and kept orally intubated on mechanical ventilation overnight. CT chest done yesterday revealed bilateral pleural effusions right greater than left for which CT- guided thoracentesis with pigtail catheter placement being scheduled with IR. 01/31: Remains sedated, orally intubated on mechanical ventilation. Underwent right-sided pigtail catheter placement by IR yesterday with drainage of about 800 cc of pleural fluid. Tolerating tube feeds. Planning CPAP trials today. Evaluated by Dr. Macias from pulmonary yesterday 02/01: Remains sedated, orally intubated on mechanical ventilation. On Levophed 1.5 mics per minute. Blood pressure labile, currently 140s. Significant oral secretions however ET tube with minimal secretions overnight. Tolerating tube feeds. New left IJ central line placed on 01/31 and right IJ central line removed. 02/02: Remains intubated more awake currently on 2 mics of Levophed to maintain map above 65. Patient is able to follow commands even though weak. Urine output of approximately 1200 mL in 24 hours, chest tube output 50 mL. Family is at the bedside 02/03: No acute events reported overnight. Patient remains very lethargic and weak. Tolerated CPAP intermittently yesterday. Remains on IV Lasix to mobilize fluid. Urine output 1.5 L in 24 hours. Creatinine slightly increased to 2.16, however patient is grossly fluid positive. Will continue with diuresis. Son at the bedside updated today. Because of generalized weakness it is recommended patient get a tracheostomy for safe ventilator weaning and to facilitate aggressive physical therapy Objective Vital Signs / I&O: Vital Signs 02/02/18 08:00 02/02/18 08:15 02/02/18 08:30 Temperature 99.4 F Pulse Rate 91 H 94 H 88 Respiratory Rate Blood Pressure Pulse Oximetry 96 97 97 02/02/18 08:45 02/02/18 09:00 02/02/18 09:15 Temperature Pulse Rate 93 H 90 89 Respiratory Rate Blood Pressure Pulse Oximetry 97 96 96 02/02/18 09:30 02/02/18 09:34 02/02/18 09:45 Temperature Pulse Rate 87 80 88 Respiratory Rate 18 Blood Pressure Pulse Oximetry 96 99 96 02/02/18 10:00 02/02/18 10:15 02/02/18 10:42 Temperature Pulse Rate 93 H 99 H Respiratory Rate 28 H Blood Pressure Pulse Oximetry 95 96 97 02/02/18 10:45 02/02/18 11:00 02/02/18 11:15 Temperature Pulse Rate 98 H 103 H 101 H Respiratory Rate Blood Pressure Pulse Oximetry 92 L 94 L 95 02/02/18 11:30 02/02/18 11:31 02/02/18 11:45 Temperature 99.8 F H 99.2 F Pulse Rate 108 H 101 H 108 H Respiratory Rate 30 H Blood Pressure 113/48 L Pulse Oximetry 93 L 93 L 93 L 02/02/18 12:00 02/02/18 12:15 02/02/18 12:30 Temperature 99.8 F H Pulse Rate 106 H 106 H 105 H Respiratory Rate Blood Pressure Pulse Oximetry 93 L 93 L 95 02/02/18 12:45 02/02/18 13:00 02/02/18 13:30 Temperature Pulse Rate 109 H 107 H 90 Respiratory Rate Blood Pressure Pulse Oximetry 93 L 83 L 96 02/02/18 13:45 02/02/18 14:00 02/02/18 14:15 Temperature Pulse Rate 90 100 H 95 H Respiratory Rate Blood Pressure Pulse Oximetry 96 95 96 02/02/18 14:30 02/02/18 14:45 02/02/18 15:00 Temperature Pulse Rate 88 93 H 95 H Respiratory Rate Blood Pressure Pulse Oximetry 96 96 93 L 02/02/18 15:15 02/02/18 15:30 02/02/18 15:45 Temperature Pulse Rate 95 H 89 93 H Respiratory Rate Blood Pressure Pulse Oximetry 95 95 95 02/02/18 16:00 02/02/18 16:15 02/02/18 16:30 Temperature 99.1 F Pulse Rate 91 H 91 H 93 H Respiratory Rate Blood Pressure Pulse Oximetry 95 96 95 02/02/18 16:45 02/02/18 17:00 02/02/18 17:01 Temperature Pulse Rate 98 H 103 H 98 H Respiratory Rate 19 Blood Pressure Pulse Oximetry 99 98 97 02/02/18 17:15 02/02/18 19:00 02/02/18 19:15 Temperature Pulse Rate 98 H 99 H 107 H Respiratory Rate 17 Blood Pressure Pulse Oximetry 98 91 L 95 02/02/18 19:30 02/02/18 19:45 02/02/18 20:00 Temperature 99.9 F H Pulse Rate 98 H 106 H 106 H Respiratory Rate 17 Blood Pressure Pulse Oximetry 96 96 96 02/02/18 20:15 02/02/18 20:30 02/02/18 20:43 Temperature Pulse Rate 93 H 105 H 101 H Respiratory Rate 15 Blood Pressure Pulse Oximetry 94 L 96 95 02/02/18 20:45 02/02/18 21:00 02/02/18 21:15 Temperature Pulse Rate 105 H 103 H 106 H Respiratory Rate Blood Pressure Pulse Oximetry 95 96 97 02/02/18 21:30 02/02/18 21:45 02/02/18 22:00 Temperature Pulse Rate 101 H 97 H 98 H Respiratory Rate Blood Pressure Pulse Oximetry 94 L 93 L 94 L 02/02/18 22:15 02/02/18 22:30 02/02/18 22:45 Temperature Pulse Rate 101 H 101 H 99 H Respiratory Rate Blood Pressure Pulse Oximetry 96 93 L 95 02/02/18 23:00 02/02/18 23:15 02/02/18 23:30 Temperature Pulse Rate 99 H 96 H 90 Respiratory Rate Blood Pressure Pulse Oximetry 94 L 95 96 02/02/18 23:45 02/03/18 00:00 02/03/18 00:10 Temperature 98.9 F Pulse Rate 93 H 92 H Respiratory Rate 16 16 Blood Pressure Pulse Oximetry 96 97 93 L 02/03/18 00:15 02/03/18 00:30 02/03/18 00:45 Temperature Pulse Rate 96 H 88 91 H Respiratory Rate Blood Pressure Pulse Oximetry 91 L 95 93 L 02/03/18 01:00 02/03/18 01:15 02/03/18 01:30 Temperature Pulse Rate 93 H 92 H 89 Respiratory Rate 16 Blood Pressure Pulse Oximetry 93 L 94 L 95 02/03/18 01:45 02/03/18 02:00 02/03/18 02:15 Temperature Pulse Rate 90 91 H 89 Respiratory Rate 16 Blood Pressure Pulse Oximetry 96 95 96 02/03/18 02:30 02/03/18 02:45 02/03/18 03:00 Temperature Pulse Rate 90 93 H 95 H Respiratory Rate Blood Pressure Pulse Oximetry 96 96 96 02/03/18 03:15 02/03/18 03:30 02/03/18 03:45 Temperature Pulse Rate 95 H 92 H 94 H Respiratory Rate Blood Pressure Pulse Oximetry 94 L 96 88 L 02/03/18 03:55 02/03/18 04:00 02/03/18 04:15 Temperature 98.8 F Pulse Rate 94 H 90 89 Respiratory Rate 16 15 Blood Pressure Pulse Oximetry 99 99 97 02/03/18 04:30 02/03/18 04:45 02/03/18 05:00 Temperature Pulse Rate 92 H 99 H 97 H Respiratory Rate 15 Blood Pressure Pulse Oximetry 98 97 96 02/03/18 05:15 02/03/18 05:30 02/03/18 05:45 Temperature Pulse Rate 97 H 92 H 96 H Respiratory Rate Blood Pressure Pulse Oximetry 96 76 L 02/03/18 06:00 Temperature 98.9 F Pulse Rate 91 H Respiratory Rate 16 Blood Pressure Pulse Oximetry 98 Intake & Output 02/02/18 02/03/18 02/03/18 18:59 06:59 18:59 Intake Total 1809 / 1809 1275 / 1275 Output Total 1285 / 1285 1570 / 1570 Balance 524 / 524 -295 / -295 Weight 78.5 kg Intake: IV 600 / 600 350 / 350 Flexbumin 25% Inj 100 ML @ 60 100 / 100 mls/hr IV.SIG Q12H [facility] Rx#: [id number] Azactam Inj 2 GM In NS Inj 100 300 / 300 100 / 100 ML @ 200 mls/hr IV.SIG Q6H [facility] Rx#:[id number] Teflaro Inj 300 MG In NS Inj 100 / 100 100 ML @ 100 mls/hr IV.SIG Q12H [facility] Rx#:[id number] Mycamine Inj 150 MG In NS Inj 100 / 100 100 ML @ 100 mls/hr IV.SIG Q24H [facility] Rx#:[id number] Levophed-Dextrose 4 mg/250 ml 250 / 250 Drip 4 mg In 250 ml @ 2 MCG/MIN 7.5 mls/hr IV.SIG TITRATE PRN Rx#:[id number] Tube Feeding 689 / 689 665 / 665 Tube Irrigant 120 / 120 Water Bolus Amount 260 / 260 Intake (Blood Product) Amt 400 / 400 Rbc As-3 Leukoreduced Unit 400 / 400 [id number] Output: Urine 1200 / 1200 Urine Amount (Catheter) 1550 / 1550 Indwelling Urethral Catheter 1550 / 1550 Wound Drainage 35 / 35 20 / 20 Left Shoulder 15 / 15 10 / 10 Right Shoulder 20 / 20 10 / 10 Chest Tube Drainage 50 / 50 Right 50 / 50 Other: Date of Last Bowel Movement 02/02/18 02/03/18 # Bowel Movements 2 # Incontinent Bowel Movements 1 Result Diagrams: 02/03/18 04:51 02/03/18 04:51 Objective Remarks: General: Arousable, orally intubated on mechanical ventilation HEENT: Positive pallor, no icterus, oral intubated Neck : Supple Chest/pulm: Orally intubated on mechanical ventilation, air entry decreased bilaterally at bases, scattered rhonchi, no wheezing. Right-sided pigtail catheter in place, 50 ml output in 24 hours CVS: S1S2, irregular rhythm. On Levophed at 2 mcg/min Abd: Soft, nontender, bowel sounds present. No guarding. No distention. Ext: Warm bilaterally. Dressing over bilateral shoulder surgical site clean dry and intact. ZOEY drains in place. Trace peripheral edema Neuro: Arousable but very weak and lethargic, orally intubated on mechanical ventilation. Grossly nonfocal. Follows commands on upper and lower extremity. Assessment and Plan - Assessment and Plan Plan: Assessment and Plan: Acute combined hypercapnic and hypoxemic respiratory failure Fluid overload/noncardiogenic Pulmonary edema secondary to sepsis MRSA pneumonia Mucus plugging -Continue bronchodilators -BNP elevated, diuresed to mobilize fluid. Continue IV Lasix 40 mg daily -Scott required for BPH as well as diuresis -Intubated and placed on mech ventilation on 01/22. -Status post bronchoscopy with BAL on 01/22 with significant mucus plugging noted in the right-sided airways including right mainstem bronchus for which BAL was performed with significant clearing of airway. -Status post bronchoscopy 02/02/[address] Morales -right mainstem bronchus with some mucous plugs noted which was suctioned out. -Continue mechanical ventilation, vent bundle. Mucomyst to mobilize secretions. -Frequent suctioning required. Previously extubated 01/25. Required BiPAP on 01/29 and was intubated for bilateral shoulder surgery and remains on mechanical ventilation since 01/29 postoperatively. -CT chest with bilateral effusions. S/p CT-guided right-sided thoracentesis/ pigtail catheter placement with IR on 01/30. -Dr. Jacky Macias for pulmonary per family request. -Daily CPAP trials -Get patient up to chair while on the vent. PT OT daily -Patient has significant generalized weakness, continues to fail prolonged CPAP trials -It is my clinical opinion that patient but will benefit from tracheostomy to facilitate ventilator weaning and to facilitate aggressive physical therapy MRSA septicemia, septic right shoulder, L spine diskitis, left supraclavicular abscess Septic right shoulder, s/p I&D Urinary tract infection. 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 Tapering steroid Blood cultures positive for MRSA. 2D echocardiogram did not show any findings consistent with vegetations. Patient also had a right shoulder effusion, orthopedics aspirated the shoulder - approximately 30 cc of purulent fluid. Orthopedics performed surgery/drainage of bilateral shoulder collections on 01/29 Continue IV antibiotics per infectious disease recommendations. NM WBC scan 01/18/18 and 01/19/18. Imaging discussed with radiology and it seems patient with multiple focal infections bilateral shoulders, also back at the hardware with diskitis/osteomyelitis. Neurology, ID, hem onc followin Previously IR consulted s/p CT-guided drainage of left posterior supraclavicular /posterior chest wall abscess on 01/17/18. s/p US guided drainage of shoulder collection by IR done on 01/23 KEKE on CKD. Getting diuresed, Strict I/O, monitor/ replete electrolytes, follow BUN/ Cr Nephrology following, appreciate recs. IV Lasix per nephrology Significant fluid removal with diuresis but creatinine increased. Remains grossly fluid positive CVS Atrial Fibrillation, permanent Noncardiogenic pulmonary edema Hypotension Rate well controlled. Recent ECHO EF 65% Dr. Garner following-discussed with Dr. Garner on 01/22. We agreed with diuresing patient for noncardiogenic pulmonary edema while watching renal function/ BP. Remains on Levophed to maintain map above 65 Holding amlodipine and Lopressor in view of labile blood pressure requiring Levophed. Lasix 40 mg IV x1 dose ordered on 01/29 for positive fluid balance and worsening respiratory status, Lasix 40 mg IV daily will be continued while watching renal function to keep an even fluid balance. Anemia 1 unit PRBCs ordered to be transfused on 01/23, 1 unit PRBCs ordered on 01/28 to keep hemoglobin above 8 g%. 1 unit PRBC given 02/02/2018 No overt evidence of blood loss. Follow CBC. Transfuse 1 unit PRBC Protein calorie malnutrition -Inserted NGT 01/22 following intubation, Continue tube feeds and advance to goal as well tolerated. BPH - Continue Flomax. DVT prophylaxis per surgeon Access: RIJ central line placed 01/22 -discontinued on 01/31. New left IJ central line placed 01/31 01/22: D/w Dr. Mani Sherman, D/W PIERCING MILL OPERATOR, D/W patient's family at bedside. 01/23 D/W patient's daughter at bedside regarding current clinical status and plan of care and they voiced understanding and were agreeable with plan of care. D/W ID-Dr Tom on 01/23 01/24: Discussed with patient's family at bedside regarding current clinical status and plan of care and they voiced understanding. Discussed with ID Dr. Tom, discussed with Dr. Piña. Discussed with PIERCING MILL OPERATOR. 01/25: I spoke with patient's daughter at the bedside this morning. We discussed goals for ventilator weaning and nutrition. I spoke with extensive family members later in the day. 01/26: I spoke at length with the patient's daughter this morning and will speak extensively with other family members later today. 01/27: I spoke with patient's family member at bedside regarding his respiratory status and plan of care and he voiced understanding. Will come back and update other family members later. 12/4: I updated family regarding plan of care. 01/29: Update multiple family members regarding clinical status including borderline respiratory status requiring BiPAP. Patient scheduled for surgery which was also discussed. I explained that patient will probably remain on mechanical ventilation postoperatively until improvement in respiratory status. 01/30: Treated patient's family regarding current clinical status including plan of care. Discussed need for thoracentesis and pigtail catheter placement for right effusion and possible need for bronchoscopy/BAL. They voiced understanding and were agreeable with plan of care. Discussed with Dr. Tom , discussed with Dr. Jacky Macias from pulmonary who was consulted as well for further evaluation of respiratory failure. 01/31: Discussed with patient's daughter/multiple family members at bedside regarding current clinical status and plan of care and they voiced understanding and was agreeable. Discussed with ID Dr. Tom 02/01: Discussed with patient son at bedside regarding current clinical status and plan of care and he voiced understanding and was agreeable. 02/02: Updated family members at the bedside 02/03 Updated son at bedside Condition critical Level 3
[2018-02-03] MEDS: Chlorhexidine 0.12% Oral Kit 15 ML UDC OROPHARYNG SCH ×2 (08:32→20:08)
[2018-02-03] MEDS: Pantoprazole Inj 40 MG Vial IV.PUSH SCH (08:38)
[2018-02-03] MEDS: Citalopram 20 MG Tablet PO SCH (08:39)
[2018-02-03] MEDS: Senna/Docusate Sodium 8.6/50 MG Tablet PO SCH ×2 (08:40→20:13)
[2018-02-03] MEDS ORDERED: Budesonide-Formoterol 160/4.5 MCG 6 GM Inhaler INH SCH (09:00)
--- NOTE | 2018-02-03 12:26 | P.PNOP ---
Subjective Interval history: Patient is resting in bed in no acute distress. The patient is alert and responds to verbal stimuli. The patient is very lethargic. Per the patient's primary nurse, the patient is no longer sedated. The plan is to try and transition the patient to CPAP. Physical Exam Vital signs: Vital Signs 02/02/18 12:30 02/02/18 12:45 02/02/18 13:00 Temperature Pulse Rate 105 H 109 H 107 H Respiratory Rate Pulse Oximetry 95 93 L 83 L 02/02/18 13:30 02/02/18 13:45 02/02/18 14:00 Temperature Pulse Rate 90 90 100 H Respiratory Rate Pulse Oximetry 96 96 95 02/02/18 14:15 02/02/18 14:30 02/02/18 14:45 Temperature Pulse Rate 95 H 88 93 H Respiratory Rate Pulse Oximetry 96 96 96 02/02/18 15:00 02/02/18 15:15 02/02/18 15:30 Temperature Pulse Rate 95 H 95 H 89 Respiratory Rate Pulse Oximetry 93 L 95 95 02/02/18 15:45 02/02/18 16:00 02/02/18 16:15 Temperature 99.1 F Pulse Rate 93 H 91 H 91 H Respiratory Rate Pulse Oximetry 95 95 96 02/02/18 16:30 02/02/18 16:45 02/02/18 17:00 Temperature Pulse Rate 93 H 98 H 103 H Respiratory Rate Pulse Oximetry 95 99 98 02/02/18 17:01 02/02/18 17:15 02/02/18 19:00 Temperature Pulse Rate 98 H 98 H 99 H Respiratory Rate 19 17 Pulse Oximetry 97 98 91 L 02/02/18 19:15 02/02/18 19:30 02/02/18 19:45 Temperature Pulse Rate 107 H 98 H 106 H Respiratory Rate Pulse Oximetry 95 96 96 02/02/18 20:00 02/02/18 20:15 02/02/18 20:30 Temperature 99.9 F H Pulse Rate 106 H 93 H 105 H Respiratory Rate 17 Pulse Oximetry 96 94 L 96 02/02/18 20:43 02/02/18 20:45 02/02/18 21:00 Temperature Pulse Rate 101 H 105 H 103 H Respiratory Rate 15 Pulse Oximetry 95 95 96 02/02/18 21:15 02/02/18 21:30 02/02/18 21:45 Temperature Pulse Rate 106 H 101 H 97 H Respiratory Rate Pulse Oximetry 97 94 L 93 L 02/02/18 22:00 02/02/18 22:15 02/02/18 22:30 Temperature Pulse Rate 98 H 101 H 101 H Respiratory Rate Pulse Oximetry 94 L 96 93 L 02/02/18 22:45 02/02/18 23:00 02/02/18 23:15 Temperature Pulse Rate 99 H 99 H 96 H Respiratory Rate Pulse Oximetry 95 94 L 95 02/02/18 23:30 02/02/18 23:45 02/03/18 00:00 Temperature 98.9 F Pulse Rate 90 93 H 92 H Respiratory Rate 16 Pulse Oximetry 96 96 97 02/03/18 00:10 02/03/18 00:15 02/03/18 00:30 Temperature Pulse Rate 96 H 88 Respiratory Rate 16 Pulse Oximetry 93 L 91 L 95 02/03/18 00:45 02/03/18 01:00 02/03/18 01:15 Temperature Pulse Rate 91 H 93 H 92 H Respiratory Rate 16 Pulse Oximetry 93 L 93 L 94 L 02/03/18 01:30 02/03/18 01:45 02/03/18 02:00 Temperature Pulse Rate 89 90 91 H Respiratory Rate 16 Pulse Oximetry 95 96 95 02/03/18 02:15 02/03/18 02:30 02/03/18 02:45 Temperature Pulse Rate 89 90 93 H Respiratory Rate Pulse Oximetry 96 96 96 02/03/18 03:00 02/03/18 03:15 02/03/18 03:30 Temperature Pulse Rate 95 H 95 H 92 H Respiratory Rate Pulse Oximetry 96 94 L 96 02/03/18 03:45 02/03/18 03:55 02/03/18 04:00 Temperature 98.8 F Pulse Rate 94 H 94 H 90 Respiratory Rate 16 15 Pulse Oximetry 88 L 99 99 02/03/18 04:15 02/03/18 04:30 02/03/18 04:45 Temperature Pulse Rate 89 92 H 99 H Respiratory Rate Pulse Oximetry 97 98 97 02/03/18 05:00 02/03/18 05:15 02/03/18 05:30 Temperature Pulse Rate 97 H 97 H 92 H Respiratory Rate 15 Pulse Oximetry 96 96 76 L 02/03/18 05:45 12/10/18 06:00 02/03/18 08:00 Temperature 98.9 F Pulse Rate 96 H 91 H Respiratory Rate 16 14 Pulse Oximetry 98 95 02/03/18 08:21 02/03/18 11:30 Temperature Pulse Rate 84 Respiratory Rate 13 28 H Pulse Oximetry 98 Intake & Output 02/02/18 02/03/18 02/03/18 18:59 06:59 18:59 Intake Total 1809 / 1809 1275 / 1275 100 / 100 Output Total 1285 / 1285 1570 / 1570 Balance 524 / 524 -295 / -295 100 / 100 Weight 78.5 kg Intake: IV 600 / 600 350 / 350 100 / 100 Flexbumin 25% Inj 100 ML @ 60 100 / 100 mls/hr IV.SIG Q12H [facility] Rx#: [id number] Azactam Inj 2 GM In NS Inj 100 300 / 300 100 / 100 100 / 100 ML @ 200 mls/hr IV.SIG Q6H [facility] Rx#:[id number] Teflaro Inj 300 MG In NS Inj 100 / 100 100 ML @ 100 mls/hr IV.SIG Q12H [facility] Rx#:[id number] Mycamine Inj 150 MG In NS Inj 100 / 100 100 ML @ 100 mls/hr IV.SIG Q24H [facility] Rx#:[id number] Levophed-Dextrose 4 mg/250 ml 250 / 250 Drip 4 mg In 250 ml @ 2 MCG/MIN 7.5 mls/hr IV.SIG TITRATE PRN Rx#:[id number] Tube Feeding 689 / 689 665 / 665 Tube Irrigant 120 / 120 Water Bolus Amount 260 / 260 Intake (Blood Product) Amt 400 / 400 Rbc As-3 Leukoreduced Unit 400 / 400 [id number] Output: Urine 1200 / 1200 Urine Amount (Catheter) 1550 / 1550 Indwelling Urethral Catheter 1550 / 1550 Wound Drainage 35 / 35 20 / 20 Left Shoulder 15 / 15 10 / 10 Right Shoulder 20 / 20 10 / 10 Chest Tube Drainage 50 / 50 Right 50 / 50 Other: Date of Last Bowel Movement 02/02/18 02/03/18 # Bowel Movements 2 # Incontinent Bowel Movements 1 Narrative: Patient still on ventilator however not sedated. The patient is very lethargic however he does respond to verbal stimuli. Right and left shoulder dressings removed and drains pulled due to minimal output. Incisions are well approximated with sutures intact. There is no erythema or effusions. No signs of infection. Patient has 2+ radial and pedal pulses. Extremities and skin are warm and dry. The patient has 1+ pitting edema about the bilateral lower extremities. - Urinary Catheter Management Condom Cath placed during this visit: no Indwelling Urethral Catheter Cath placed during this visit: yes Reason for continuing: Hourly intake/output Insertion date: 01/20/18 Insertion time: 11:30 Results - Labs CBC & Chem 7: 02/03/18 04:51 02/03/18 04:51 Laboratory Results - last 24 hr 02/02/18 02/02/18 02/02/18 09:44 15:30 15:30 WBC RBC Hgb 8.3 L Hct 25.2 L MCV MCH MCHC RDW Plt Count MPV Prelim Diff (Auto) Neut % (Auto) Lymph % (Auto) [place] % (Auto) Eos % (Auto) Baso % (Auto) Neut # (Auto) Lymph # (Auto) [place] # (Auto) Eos # (Auto) Baso # (Auto) WBC Differential Seg Neuts % (Manual) Band Neuts % (Manual) Lymphocytes % (Manual) Monocytes % (Manual) Eosinophils % (Manual) Abs Neuts (Manual) Differential Comment Platelet Estimate Platelet Morphology Ovalocytes Acanthocytes (Spur) Keratocytes Sodium Potassium 3.5 Chloride Carbon Dioxide Anion Gap BUN Creatinine Estimated GFR Random Glucose Calcium Magnesium Total Bilirubin AST ALT Alkaline Phosphatase Total Protein Albumin Random Vancomycin MTS Gel Crossmatch See Detail 02/03/18 02/03/18 04:51 04:51 WBC 8.4 RBC 2.89 L Hgb 8.0 L Hct 23.2 L MCV 80.3 MCH 27.5 MCHC 34.2 RDW 20.4 H Plt Count 193 MPV 9.4 Prelim Diff (Auto) Slide review pending Neut % (Auto) 87.6 H Lymph % (Auto) 8.4 L [place] % (Auto) 2.8 Eos % (Auto) 1.1 Baso % (Auto) 0.1 Neut # (Auto) 7.3 Lymph # (Auto) 0.7 L [place] # (Auto) 0.2 Eos # (Auto) 0.1 Baso # (Auto) 0.0 WBC Differential Manual diff final Seg Neuts % (Manual) 72 H Band Neuts % (Manual) 19 H Lymphocytes % (Manual) 6 L Monocytes % (Manual) 2 Eosinophils % (Manual) 1 Abs Neuts (Manual) 7.6 Differential Comment . Platelet Estimate Normal Platelet Morphology Enlarged H Ovalocytes 1+ H Acanthocytes (Spur) Occ H Keratocytes Occ H Sodium 139 Potassium 3.6 Chloride 106 Carbon Dioxide 22.5 Anion Gap 11 BUN 59 H Creatinine 2.16 H Estimated GFR 30 L Random Glucose 154 H Calcium 8.3 L Magnesium 2.3 Total Bilirubin 1.9 H AST 9 L ALT 10 L Alkaline Phosphatase 377 H Total Protein 5.7 L Albumin 2.6 L Random Vancomycin 20.4 MTS Gel Crossmatch Microbiology 01/31/18 11:16 Blood - Peripheral Aerobic Blood Culture - Preliminary No growth in 3 days 01/31/18 11:16 Blood - Peripheral Anaerobic Blood Culture - Preliminary No growth in 3 days 01/31/18 11:10 Blood - Peripheral Aerobic Blood Culture - Preliminary No growth in 3 days 01/31/18 11:10 Blood - Peripheral Anaerobic Blood Culture - Preliminary No growth in 3 days 01/17/18 18:56 Fluid - Other Fungal Smear - Final No fungal elements seen 01/17/18 18:56 Fluid - Other Fungal Culture - Preliminary No growth in 2 weeks 01/30/18 15:00 Fluid - Pleural fluid Gram Stain - Final 01/30/18 15:00 Fluid - Pleural fluid Body Fluid Culture - Final No growth in 72 hours (aerobically and anaerobically ) 01/31/18 13:15 Catheterized Urine Urine Culture - Final No growth in 48 hours - Imaging Impressions Chest X-Ray 02/03/18 06:00 CONCLUSION: No significant interval change. Persistent left lower lung atelectasis. No evidence of pneumothorax. Assessment and Plan - Assessment and Plan Abscess right shoulder. 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 Surgery: Right shoulder arthrotomy with irrigation and drain placement (2017) Right shoulder arthrotomy with irrigation and drain placement (01/29/2018) Left shoulder arthrotomy with irrigation and drain placement (2017) PLAN: 1. IV antibiotics per infectious disease. Intraoperative cultures taken of both shoulders. Previous cultures show MRSA. 72 hours CX are showing no growth. 2. Source of sepsis likely from a history of previous MRSA from lumbar spine. Possible indolent infection that has developed an abscess of the bilateral shoulders. We will defer to neurosurgery and other specialists for overall management of lumbar spine. Current plan is to remain conservative and forego removal of hardware from the lumbar spine which is likely the source of his ongoing infection. 3. Dressings changed and drains removed today. Daily dressing changes moving forward. 4. Plan is to continue to try and transition the patient from the ventilator. There is some discussion currently regarding the need for a trach. 5. The patient is stable orthopedically. Sutures can be removed in 1 week. Close orthopedic follow-up is no longer necessary. We will see the patient back on an as-needed basis while in the hospital. 6. The patient will follow up outpatient for the bilateral shoulders with Dr. Bernardo or Germain Benson APRN. 7. Patient can perform active and passive range of motion of the bilateral shoulders.
[2018-02-03] MEDS ORDERED: Morphine Sulfate Inj 2 MG/ML Vial IV.PUSH PRN (12:37)
[2018-02-03] MEDS: Micafungin Inj 150 MG in Sodium Chlor 0.9% Inj 100 ML IV.SIG SCH (13:34)
--- NOTE | 2018-02-03 14:11 | P.PNID ---
Subjective Remarks: On vent, not tolerating CPAP sputum non purulent and with nl resp cecilia + low grade fever He is on low dose of levaphed worsening renal function and worsening edema very lethargic today Antibiotics: vanco teflaro rifampin Lines: Line sites with no e.o infection Past Medical History: reviewed Allergies/Adverse Reactions: Allergies amoxicillin Allergy (Severe, Verified 01/13/18 20:44) Hives Objective Vital Signs 02/02/18 14:15 02/02/18 14:30 02/02/18 14:45 Temperature Pulse Rate 95 H 88 93 H Respiratory Rate Pulse Oximetry 96 96 96 02/02/18 15:00 02/02/18 15:15 02/02/18 15:30 Temperature Pulse Rate 95 H 95 H 89 Respiratory Rate Pulse Oximetry 93 L 95 95 02/02/18 15:45 02/02/18 16:00 02/02/18 16:15 Temperature 99.1 F Pulse Rate 93 H 91 H 91 H Respiratory Rate Pulse Oximetry 95 95 96 02/02/18 16:30 02/02/18 16:45 02/02/18 17:00 Temperature Pulse Rate 93 H 98 H 103 H Respiratory Rate Pulse Oximetry 95 99 98 02/02/18 17:01 02/02/18 17:15 02/02/18 19:00 Temperature Pulse Rate 98 H 98 H 99 H Respiratory Rate 19 17 Pulse Oximetry 97 98 91 L 02/02/18 19:15 02/02/18 19:30 02/02/18 19:45 Temperature Pulse Rate 107 H 98 H 106 H Respiratory Rate Pulse Oximetry 95 96 96 02/02/18 20:00 02/02/18 20:15 02/02/18 20:30 Temperature 99.9 F H Pulse Rate 106 H 93 H 105 H Respiratory Rate 17 Pulse Oximetry 96 94 L 96 02/02/18 20:43 02/02/18 20:45 02/02/18 21:00 Temperature Pulse Rate 101 H 105 H 103 H Respiratory Rate 15 Pulse Oximetry 95 95 96 02/02/18 21:15 02/02/18 21:30 02/02/18 21:45 Temperature Pulse Rate 106 H 101 H 97 H Respiratory Rate Pulse Oximetry 97 94 L 93 L 02/02/18 22:00 02/02/18 22:15 02/02/18 22:30 Temperature Pulse Rate 98 H 101 H 101 H Respiratory Rate Pulse Oximetry 94 L 96 93 L 02/02/18 22:45 02/02/18 23:00 02/02/18 23:15 Temperature Pulse Rate 99 H 99 H 96 H Respiratory Rate Pulse Oximetry 95 94 L 95 02/02/18 23:30 02/02/18 23:45 02/03/18 00:00 Temperature 98.9 F Pulse Rate 90 93 H 92 H Respiratory Rate 16 Pulse Oximetry 96 96 97 02/03/18 00:10 02/03/18 00:15 02/03/18 00:30 Temperature Pulse Rate 96 H 88 Respiratory Rate 16 Pulse Oximetry 93 L 91 L 95 02/03/18 00:45 02/03/18 01:00 02/03/18 01:15 Temperature Pulse Rate 91 H 93 H 92 H Respiratory Rate 16 Pulse Oximetry 93 L 93 L 94 L 02/03/18 01:30 02/03/18 01:45 02/03/18 02:00 Temperature Pulse Rate 89 90 91 H Respiratory Rate 16 Pulse Oximetry 95 96 95 02/03/18 02:15 02/03/18 02:30 02/03/18 02:45 Temperature Pulse Rate 89 90 93 H Respiratory Rate Pulse Oximetry 96 96 96 02/03/18 03:00 02/03/18 03:15 02/03/18 03:30 Temperature Pulse Rate 95 H 95 H 92 H Respiratory Rate Pulse Oximetry 96 94 L 96 02/03/18 03:45 02/03/18 03:55 02/03/18 04:00 Temperature 98.8 F Pulse Rate 94 H 94 H 90 Respiratory Rate 16 15 Pulse Oximetry 88 L 99 99 02/03/18 04:15 02/03/18 04:30 02/03/18 04:45 Temperature Pulse Rate 89 92 H 99 H Respiratory Rate Pulse Oximetry 97 98 97 02/03/18 05:00 02/03/18 05:15 02/03/18 05:30 Temperature Pulse Rate 97 H 97 H 92 H Respiratory Rate 15 Pulse Oximetry 96 96 76 L 02/03/18 05:45 02/03/18 06:00 02/03/18 08:00 Temperature 98.9 F Pulse Rate 96 H 91 H Respiratory Rate 16 14 Pulse Oximetry 98 95 02/03/18 08:21 02/03/18 11:30 Temperature Pulse Rate 84 Respiratory Rate 13 28 H Pulse Oximetry 98 Intake & Output 02/02/18 02/03/18 02/03/18 18:59 06:59 18:59 Intake Total 1809 / 1809 1275 / 1275 100 / 100 Output Total 1285 / 1285 1570 / 1570 Balance 524 / 524 -295 / -295 100 / 100 Weight 78.5 kg Intake: IV 600 / 600 350 / 350 100 / 100 Flexbumin 25% Inj 100 ML @ 60 100 / 100 mls/hr IV.SIG Q12H [facility] Rx#: [id number] Azactam Inj 2 GM In NS Inj 100 300 / 300 100 / 100 100 / 100 ML @ 200 mls/hr IV.SIG Q6H [facility] Rx#:[id number] Teflaro Inj 300 MG In NS Inj 100 / 100 100 ML @ 100 mls/hr IV.SIG Q12H [facility] Rx#:[id number] Mycamine Inj 150 MG In NS Inj 100 / 100 100 ML @ 100 mls/hr IV.SIG Q24H [facility] Rx#:[id number] Levophed-Dextrose 4 mg/250 ml 250 / 250 Drip 4 mg In 250 ml @ 2 MCG/MIN 7.5 mls/hr IV.SIG TITRATE PRN Rx#:[id number] Tube Feeding 689 / 689 665 / 665 Tube Irrigant 120 / 120 Water Bolus Amount 260 / 260 Intake (Blood Product) Amt 400 / 400 Rbc As-3 Leukoreduced Unit 400 / 400 [id number] Output: Urine 1200 / 1200 Urine Amount (Catheter) 1550 / 1550 Indwelling Urethral Catheter 1550 / 1550 Wound Drainage 35 / 35 20 / 20 Left Shoulder 15 / 15 10 / 10 Right Shoulder 20 / 20 10 / 10 Chest Tube Drainage 50 / 50 Right 50 / 50 Other: Date of Last Bowel Movement 02/02/18 02/03/18 # Bowel Movements 2 # Incontinent Bowel Movements 1 02/03/18 12:50 Blood - Peripheral Aerobic Blood Culture - Pending 02/03/18 12:50 Blood - Peripheral Anaerobic Blood Culture - Pending 02/03/18 12:56 Blood - Peripheral Aerobic Blood Culture - Pending 02/03/18 12:56 Blood - Peripheral Anaerobic Blood Culture - Pending 01/31/18 11:16 Blood - Peripheral Aerobic Blood Culture - Preliminary No growth in 3 days 01/31/18 11:16 Blood - Peripheral Anaerobic Blood Culture - Preliminary No growth in 3 days 01/31/18 11:10 Blood - Peripheral Aerobic Blood Culture - Preliminary No growth in 3 days 01/31/18 11:10 Blood - Peripheral Anaerobic Blood Culture - Preliminary No growth in 3 days 01/17/18 18:56 Fluid - Other Fungal Smear - Final No fungal elements seen 01/17/18 18:56 Fluid - Other Fungal Culture - Preliminary No growth in 2 weeks 01/30/18 15:00 Fluid - Pleural fluid Gram Stain - Final 01/30/18 15:00 Fluid - Pleural fluid Body Fluid Culture - Final No growth in 72 hours (aerobically and anaerobically ) 01/31/18 13:15 Catheterized Urine Urine Culture - Final No growth in 48 hours 01/29/18 14:11 Wound - Shoulder Gram Stain - Final 01/29/18 14:11 Wound - Shoulder Wound Culture - Final No growth in 72 hours (aerobically and anaerobically ) 01/29/18 14:10 Wound - Shoulder Gram Stain - Final 01/29/18 14:10 Wound - Shoulder Wound Culture - Final No growth in 72 hours (aerobically and anaerobically ) 01/29/18 13:59 Wound - Shoulder Gram Stain - Final 01/29/18 13:59 Wound - Shoulder Wound Culture - Final No growth in 72 hours (aerobically and anaerobically ) 01/29/18 13:58 Wound - Shoulder Gram Stain - Final 01/29/18 13:58 Wound - Shoulder Wound Culture - Final No growth in 72 hours (aerobically and anaerobically ) 01/29/18 14:11 Wound - Shoulder Acid Fast Bacilli Smear - Final No acid fast bacilli seen 01/29/18 14:11 Wound - Shoulder Mycobacterial Culture - Pending 01/29/18 14:10 Wound - Shoulder Acid Fast Bacilli Smear - Final No acid fast bacilli seen 01/29/18 14:10 Wound - Shoulder Mycobacterial Culture - Pending 01/29/18 13:59 Wound - Shoulder Acid Fast Bacilli Smear - Final No acid fast bacilli seen 01/29/18 13:59 Wound - Shoulder Mycobacterial Culture - Pending 01/29/18 13:58 Wound - Shoulder Acid Fast Bacilli Smear - Final No acid fast bacilli seen 01/29/18 13:58 Wound - Shoulder Mycobacterial Culture - Pending 01/17/18 18:56 Fluid - Other Acid Fast Bacilli Smear - Final No acid fast bacilli seen 01/17/18 18:56 Fluid - Other Mycobacterial Culture - Preliminary No growth in 2 weeks 01/30/18 15:00 Fluid - Pleural fluid Fungal Smear - Final No fungal elements seen 01/30/18 15:00 Fluid - Pleural fluid Fungal Culture - Pending Lab - Hematology Results 02/02/18 02/02/18 02/03/18 05:40 15:30 04:51 WBC 8.1 8.4 RBC 2.60 L 2.89 L Hgb 7.1 L 8.3 L 8.0 L Hct 21.4 L 25.2 L 23.2 L MCV 82.4 80.3 MCH 27.4 27.5 MCHC 33.3 34.2 RDW 19.6 H 20.4 H Plt Count 174 193 MPV 9.2 9.4 Prelim Diff (Auto) Slide review pending Slide review pending Neut % (Auto) 90.1 H 87.6 H Lymph % (Auto) 6.5 L 8.4 L [place] % (Auto) 2.3 2.8 Eos % (Auto) 1.1 1.1 Baso % (Auto) 0.0 0.1 Neut # (Auto) 7.3 7.3 Lymph # (Auto) 0.5 L 0.7 L [place] # (Auto) 0.2 0.2 Eos # (Auto) 0.1 0.1 Baso # (Auto) 0.0 0.0 WBC Differential Manual diff final Manual diff final Seg Neuts % (Manual) 63 72 H Band Neuts % (Manual) 22 H 19 H Lymphocytes % (Manual) 7 L 6 L Monocytes % (Manual) 4 2 Eosinophils % (Manual) 2 1 Metamyelocytes % (Man) 1 Myelocytes % (Man) 1 H Abs Neuts (Manual) 7.0 7.6 Differential Comment . . Toxic Granulation 2+ H Platelet Estimate Normal Normal Platelet Morphology Normal Enlarged H Dimorphic RBCs Present H Tear Drop Cells 1+ H Ovalocytes 1+ H 1+ H Acanthocytes (Spur) Occ H Keratocytes Occ H Lab - Chemistry Results 02/02/18 02/02/18 02/03/18 05:40 15:30 04:51 Sodium 139 139 Potassium 3.5 3.5 3.6 Chloride 107 106 Carbon Dioxide 22.6 22.5 Anion Gap 9 11 BUN 54 H 59 H Creatinine 2.10 H 2.16 H Estimated GFR 31 L 30 L Random Glucose 137 H 154 H Calcium 7.7 L 8.3 L Magnesium 2.2 2.3 Total Bilirubin 1.6 H 1.9 H AST 12 L 9 L ALT 9 L 10 L Alkaline Phosphatase 346 H 377 H Total Protein 5.4 L 5.7 L Albumin 2.2 L D 2.6 L Imaging: ITS Impressions Abdomen/Pelvis CT 01/13/18 20:43 CONCLUSION: 1. Marked prostate enlargement. 2. Air-filled distention of sigmoid colon. 3. Cardiomegaly. Small bilateral pleural effusions. 4. Diffuse atherosclerotic disease and arterial calcification. 5. Old insufficiency type fractures of the left side of the sacrum and left- sided pubic rami. Cervical Spine MRI 01/14/18 00:00 CONCLUSION: 1. Examination is degraded by motion artifact. 2. Partial visualization of a mass involving the left supraclavicular region measuring 5.[address] scan of the soft tissues of the neck with IV contrast to further assess if the patient can't hold still for that exam. 3. Diffuse degenerative changes as detailed at each level in the above discussion. Head MRI 01/14/18 00:00 CONCLUSION: 1. No acute intracranial abnormality. 2. Encephalomalacia involving the left frontal lobe. Thoracic Spine MRI 01/14/18 00:00 CONCLUSION: 1. See the MRI of the cervical spine reported separately. 2. Orthopedic hardware at the thoracolumbar junction. 3. Patent central canal throughout. Head CT 01/14/18 00:31 CONCLUSION: 1. No acute intracranial findings. 2. 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 . Soft Tissue Neck CT 01/16/18 00:00 CONCLUSION: 1. Partially visualized fluid and gas collection deep to the left trapezius muscle in the posterior lower neck extending into the posterior thorax. Chest CT with contrast could be performed to image the remainder of the abnormality. Differential diagnosis includes abscess and hematoma. 2. Degenerative findings of the cervical spine. Abscess Drainage CT 01/17/18 00:00 CONCLUSION: 1. Uncomplicated CT guided drainage, as above. WBC Scan Nuclear Medicine 01/18/18 00:00 CONCLUSION: 1. Multiple areas of abnormal uptake including at the upper lumbar spine around the upper left surgical hardware and at the L1-2 disc level. 2. Abnormal activity around the clip joints bilaterally being more prominent on the right. 3. Abnormal activity in the right C2-3 facet and the left C7-T1 facet. 4. Small area of signal abnormality in the posterior right sacroiliac joint region separate from surgical hardware. 5. All these areas are concerning for active infection. Shoulder X-Ray 01/21/18 00:00 CONCLUSION: Unusual positioning of the shoulder but I do not see any obvious displaced fracture of the shoulder. There is a healing third rib fracture and healing seventh rib fracture. Upper Extremity Ultrasound 01/22/18 00:00 CONCLUSION: 1. Lateral right shoulder subcutaneous complex fluid collection concerning for abscess. This is amenable to percutaneous drainage. Abscess Drainage Ultrasound 01/23/18 00:00 CONCLUSION: 1. Uncomplicated ultrasound-guided drainage catheter placement in complex inferolateral right shoulder fluid collection. Lumbar Spine MRI 01/23/18 00:00 CONCLUSION: Little or no change from previous exam. Nothing to suggest abscess Pelvis MRI 01/23/18 00:00 CONCLUSION: 1. Diffuse skin thickening and subcutaneous edema suggestive of cellulitis involving the left buttock without underlying abscess formation. 2. Rectosigmoid colon is distended with fecal debris suggestive of fecal impaction. Clinical correlation is recommended. 3. Markedly enlarged prostate. 4. Degenerative changes and scoliosis of the visualized lower lumbar spine are noted. 5. Bony changes involving the left sacrum likely representing old healed insufficiency fractures. Shoulder MRI 01/23/18 00:00 CONCLUSION: 1. Chronic complete rotator cuff tear. 2. Moderate joint fluid Abscess Drainage 01/24/18 15:37 CONCLUSION: 1. Uncomplicated percutaneous placement of drainage catheter in left shoulder. Chest CT 01/29/18 15:28 CONCLUSION: 1. Interval increase in the amount of pleural effusions bilaterally. Findings have been discussed with Dr. Tom on today's date. Thoracentesis CT 01/30/18 00:00 CONCLUSION: 1. Uncomplicated CT-guided right-sided chest tube placement. Venous Doppler Study 02/02/18 00:00 CONCLUSION: The study is negative for bilateral lower extremity deep venous thrombosis. Chest X-Ray 02/03/18 06:00 CONCLUSION: No significant interval change. Persistent left lower lung atelectasis. No evidence of pneumothorax. Physical Exam: GENERAL: on vent SKIN: Warm and dry. No rash HEAD: Atraumatic. Normocephalic. EYES: Pupils equal and round. No scleral icterus. No injection or drainage. ENT: No nasal bleeding or discharge. Mucous membranes pink and moist. NECK: Trachea midline. No JVD. No palpable masses, but diffuse pain CARDIOVASCULAR: Regular rate and rhythm. nO murmurs RESPIRATORY: No accessory muscle use. R sided CT in place clear serous fluid GASTROINTESTINAL: Abdomen soft, non-tender, mildly distended. Hepatic and splenic margins not palpable. MUSCULOSKELETAL: Extremities without clubbing, cyanosis, + increasing soft pitting edema. No obvious deformities. b/l shoulders with dressing on place : [place] in, clear ivette coloured urine NEUROLOGICAL: very lethargic not interqacting today PSYCHIATRIC: unable to assess Assessment and Plan - Plan High grade staph bacteremia. MRSA 2 D echo neg R shoulder effusion , cw R shoulder septic arhtritis (MRSA)-post I&D. . 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 and infection 2 yrs ago Encephalopathy - resolved B/L septic shoulder arhtritis, MRSA, cw metastatic staph infx No PNA - clin picture and cultures more cw failure High grade PNC allergy, but tolerated meropenem OK New fever , 102 - resolved BC neg @ 72 hrs ARF/CKD w worsening renal fnx Log tem prognosis is poor taking into account pt's debility, retained hardware and very limited choice of therapeutic options Bilirubin is doubling Recs: will switch vancomycin to daptomycin, adjusr renally cont teflaro, adjust per renal fnx dc Rifampin chk blood clx chk UA, C+S dc azactam, micafugin fu P bl clx dw family @ b/s dw Dr Misbah levin RN
--- NOTE | 2018-02-03 16:40 | CT ---
EXAM DATE: 02/03/2018 4:37 PM EST AGE/SEX: 82 years / Male INDICATIONS: Altered mental status. CLINICAL DATA: This is the patient's initial encounter. Patient reports that signs and symptoms have been present for 1 day and indicates a pain score of Nonresponsive. MEDICAL/SURGICAL HISTORY: Hypertension. Non-responsive. RADIATION DOSE: 38.34 CTDI (mGy) COMPARISON: [facility] – [place], CT HEAD W/O CONTRAST, 01/14/2018. . TECHNIQUE: CT of the head without contrast. Using automated exposure control and adjustment of the mA and/or kV according to patient size, radiation dose was kept as low as reasonably achievable to ob tain optimal diagnostic quality images. DICOM format image data is available electronically for revi ew and comparison. FINDINGS: There is diffuse atrophy. Encephalomalacia in the left frontal region is again seen and not significa ntly changed. There are no signs of acute infarct, intracranial hemorrhage, or mass. Previous left fr ontal craniotomy. No fractures. There is circumferential mucosal thickening in the left maxillary sin us. CONCLUSION: 1. Left maxillary mucosal thickening. 2. Atrophy and left frontal encephalomalacia again noted. . Electronically signed by: Dread Patricio MD 02/03/2018 4:39 PM EST
[2018-02-03] MEDS: DAPTOmycin Inj 800 MG in Sodium Chlor 0.9% Inj 100 ML IV.SIG SCH (17:15)
--- NOTE | 2018-02-03 17:23 | P.PNNS ---
Physical Exam Vital signs: Vital Signs 02/02/18 19:00 02/02/18 19:15 02/02/18 19:30 Temperature Pulse Rate 99 H 107 H 98 H Respiratory Rate 17 Blood Pressure Pulse Oximetry 91 L 95 96 02/02/18 19:45 02/02/18 20:00 02/02/18 20:15 Temperature 99.9 F H Pulse Rate 106 H 106 H 93 H Respiratory Rate 17 Blood Pressure Pulse Oximetry 96 96 94 L 02/02/18 20:30 02/02/18 20:43 02/02/18 20:45 Temperature Pulse Rate 105 H 101 H 105 H Respiratory Rate 15 Blood Pressure Pulse Oximetry 96 95 95 02/02/18 21:00 02/02/18 21:15 02/02/18 21:30 Temperature Pulse Rate 103 H 106 H 101 H Respiratory Rate Blood Pressure Pulse Oximetry 96 97 94 L 02/02/18 21:45 02/02/18 22:00 02/02/18 22:15 Temperature Pulse Rate 97 H 98 H 101 H Respiratory Rate Blood Pressure Pulse Oximetry 93 L 94 L 96 02/02/18 22:30 02/02/18 22:45 02/02/18 23:00 Temperature Pulse Rate 101 H 99 H 99 H Respiratory Rate Blood Pressure Pulse Oximetry 93 L 95 94 L 02/02/18 23:15 02/02/18 23:30 02/02/18 23:45 Temperature Pulse Rate 96 H 90 93 H Respiratory Rate Blood Pressure Pulse Oximetry 95 96 96 02/03/18 00:00 02/03/18 00:10 02/03/18 00:15 Temperature 98.9 F Pulse Rate 92 H 96 H Respiratory Rate 16 16 Blood Pressure Pulse Oximetry 97 93 L 91 L 02/03/18 00:30 02/03/18 00:45 02/03/18 01:00 Temperature Pulse Rate 88 91 H 93 H Respiratory Rate 16 Blood Pressure Pulse Oximetry 95 93 L 93 L 02/03/18 01:15 02/03/18 01:30 02/03/18 01:45 Temperature Pulse Rate 92 H 89 90 Respiratory Rate Blood Pressure Pulse Oximetry 94 L 95 96 02/03/18 02:00 02/03/18 02:15 02/03/18 02:30 Temperature Pulse Rate 91 H 89 90 Respiratory Rate 16 Blood Pressure Pulse Oximetry 95 96 96 02/03/18 02:45 02/03/18 03:00 02/03/18 03:15 Temperature Pulse Rate 93 H 95 H 95 H Respiratory Rate Blood Pressure Pulse Oximetry 96 96 94 L 02/03/18 03:30 02/03/18 03:45 02/03/18 03:55 Temperature Pulse Rate 92 H 94 H 94 H Respiratory Rate 16 Blood Pressure Pulse Oximetry 96 88 L 99 02/03/18 04:00 02/03/18 04:15 02/03/18 04:30 Temperature 98.8 F Pulse Rate 90 89 92 H Respiratory Rate 15 Blood Pressure Pulse Oximetry 99 97 98 02/03/18 04:45 02/03/18 05:00 02/03/18 05:15 Temperature Pulse Rate 99 H 97 H 97 H Respiratory Rate 15 Blood Pressure Pulse Oximetry 97 96 96 02/03/18 05:30 02/03/18 05:45 02/03/18 06:00 Temperature 98.9 F Pulse Rate 92 H 96 H 91 H Respiratory Rate 16 Blood Pressure Pulse Oximetry 76 L 98 02/03/18 06:15 02/03/18 06:30 02/03/18 06:45 Temperature Pulse Rate 92 H 90 100 H Respiratory Rate Blood Pressure Pulse Oximetry 98 98 88 L 02/03/18 07:00 02/03/18 07:15 02/03/18 07:30 Temperature Pulse Rate 92 H 89 88 Respiratory Rate Blood Pressure Pulse Oximetry 96 96 96 02/03/18 07:45 02/03/18 08:00 02/03/18 08:15 Temperature 98.7 F Pulse Rate 87 86 83 Respiratory Rate 14 Blood Pressure Pulse Oximetry 96 97 97 02/03/18 08:21 02/03/18 08:30 02/03/18 08:45 Temperature Pulse Rate 84 82 85 Respiratory Rate 13 Blood Pressure Pulse Oximetry 97 96 02/03/18 09:00 02/03/18 09:15 02/03/18 09:30 Temperature Pulse Rate 85 88 90 Respiratory Rate Blood Pressure Pulse Oximetry 95 96 95 02/03/18 09:45 02/03/18 10:00 02/03/18 10:15 Temperature Pulse Rate 90 87 95 H Respiratory Rate Blood Pressure Pulse Oximetry 96 96 97 02/03/18 10:30 02/03/18 10:45 02/03/18 11:00 Temperature Pulse Rate 90 93 H 90 Respiratory Rate Blood Pressure Pulse Oximetry 97 96 96 02/03/18 11:06 02/03/18 11:15 02/03/18 11:30 Temperature Pulse Rate 90 92 H 95 H Respiratory Rate 28 H Blood Pressure 128/86 Pulse Oximetry 97 96 95 02/03/18 11:45 02/03/18 12:00 02/03/18 12:15 Temperature 98.8 F Pulse Rate 100 H 97 H 97 H Respiratory Rate Blood Pressure Pulse Oximetry 96 95 95 02/03/18 12:30 02/03/18 12:45 02/03/18 13:00 Temperature Pulse Rate 100 H 100 H 100 H Respiratory Rate Blood Pressure Pulse Oximetry 96 95 96 02/03/18 13:15 02/03/18 13:29 02/03/18 13:30 Temperature Pulse Rate 96 H 98 H 96 H Respiratory Rate Blood Pressure 111/55 L Pulse Oximetry 96 96 96 02/03/18 13:45 02/03/18 14:00 02/03/18 14:15 Temperature Pulse Rate 101 H 102 H 99 H Respiratory Rate Blood Pressure Pulse Oximetry 96 96 97 02/03/18 14:30 02/03/18 14:45 02/03/18 15:00 Temperature Pulse Rate 101 H 93 H 97 H Respiratory Rate 16 Blood Pressure Pulse Oximetry 97 97 97 02/03/18 15:15 02/03/18 15:30 02/03/18 15:45 Temperature Pulse Rate 98 H 103 H 98 H Respiratory Rate Blood Pressure Pulse Oximetry 97 97 97 02/03/18 17:01 Temperature Pulse Rate Respiratory Rate 24 Blood Pressure Pulse Oximetry 97 Intake & Output 02/02/18 02/03/18 02/03/18 18:59 06:59 18:59 Intake Total 1809 / 1809 1275 / 1275 100 / 100 Output Total 1285 / 1285 1570 / 1570 Balance 524 / 524 -295 / -295 100 / 100 Weight 78.5 kg Intake: IV 600 / 600 350 / 350 100 / 100 Flexbumin 25% Inj 100 ML @ 60 100 / 100 mls/hr IV.SIG Q12H [facility] Rx#: [id number] Azactam Inj 2 GM In NS Inj 100 300 / 300 100 / 100 100 / 100 ML @ 200 mls/hr IV.SIG Q6H [facility] Rx#:[id number] Teflaro Inj 300 MG In NS Inj 100 / 100 100 ML @ 100 mls/hr IV.SIG Q12H [facility] Rx#:[id number] Mycamine Inj 150 MG In NS Inj 100 / 100 100 ML @ 100 mls/hr IV.SIG Q24H [facility] Rx#:[id number] Levophed-Dextrose 4 mg/250 ml 250 / 250 Drip 4 mg In 250 ml @ 2 MCG/MIN 7.5 mls/hr IV.SIG TITRATE PRN Rx#:[id number] Tube Feeding 689 / 689 665 / 665 Tube Irrigant 120 / 120 Water Bolus Amount 260 / 260 Intake (Blood Product) Amt 400 / 400 Rbc As-3 Leukoreduced Unit 400 / 400 [id number] Output: Urine 1200 / 1200 Urine Amount (Catheter) 1550 / 1550 Indwelling Urethral Catheter 1550 / 1550 Wound Drainage 35 / 35 20 / 20 Left Shoulder 15 / 15 10 / 10 Right Shoulder 20 / 20 10 / 10 Chest Tube Drainage 50 / 50 Right 50 / 50 Other: Date of Last Bowel Movement 02/02/18 02/03/18 01/29/18 # Bowel Movements 2 # Incontinent Bowel Movements 1 - Urinary Catheter Management Condom Cath placed during this visit: no Indwelling Urethral Catheter Cath placed during this visit: yes Reason for continuing: Hourly intake/output Insertion date: 01/20/18 Insertion time: 11:30 Assessment and Plan - Plan THIS NOTE REPRESENTS MY ENCOUNTER ON 01/31/18 DURING ROUNDS Neuro. Continue neuro checks. Acute combined hypercapnic and hypoxemic respiratory failure on mechanical ventilation, CPAP trials today He underwent right-sided pigtail catheter placement by IR yesterday with drainage of about 800 cc of pleural fluid -Bronchodilators -diuresed to mobilize fluid -Scott required for BPH as well as diuresis May need further bronchoscopy. Follow-up chest x-ray -Continue mechanical ventilation, vent bundle. Added Mucomyst to mobilize secretions. -Frequent suctioning required MRSA septicemia, septic right shoulder, L spine possible osteomyelitis, left supraclavicular abscess Right shoulder effusion. septic right shoulder, s/p I&D Urinary tract infection. Left Supraclavicular abscess, CT reviewed, showed abscess extending to posterior thorax He was taken to surgery yesterday for bilateral shoulder collections under general anesthesia, tolerated procedure Blood cultures positive for MRSA. 2D echocardiogram did not show any findings consistent with vegetations. Continue vancomycin, Levaquin, meropenem per ID. Patient also had a right shoulder effusion, orthopedics aspirated the shoulder - approximately 30 cc of purulent fluid. Orthopedics planning OR for drainage ob bilateral shoulder collections on 01/29 Continue IV antibiotics per infectious disease recommendations. Infectious disease following repeat blood cultures ntd KEKE on CKD. Being diuresed, Strict I/O, monitor/ replete electrolytes, follow BUN/ Cr Nephrology following, appreciate recs. Significant fluid removal with diuresis but creatinine increased. Fluid balance appears about the right today 01/25, but mild prerenal azotemia noted Worsening prerenal azotemia Atrial Fibrillation, permanent Dr. Garner following Rate well controlled. old antihypertensives. On 01/23 ordered Levophed for pressor support to keep MAP greater than 65mm Hg however has not required pressors. Hold off on further diuresis due to rising creatinine. Start Lopressor 12 and half milligrams twice daily ANEMIA: TRANSFUSED 1u prbc Protein calorie malnutrition: very low albumin, will check prealbumin. Will add ensure with meals. Consult rock loader. BPH - Continue Flomax. Endocrine: Continue to Monitor serial Acu checks and SSI as needed in detail Continue Protonix for stress ulcer prophylaxis Continue Randolph hose and SCD's for DVT prophylaxis. Lovenox Further recommendations will be provided depending on the patient's clinical evaluation and follow up
--- NOTE | 2018-02-03 18:10 | P.PNNP ---
Subjective Interval history: Is on the ventilator edema is getting worse Physical Exam Vital signs: Vital Signs 02/02/18 19:00 02/02/18 19:15 02/02/18 19:30 Temperature Pulse Rate 99 H 107 H 98 H Respiratory Rate 17 Blood Pressure Pulse Oximetry 91 L 95 96 02/02/18 19:45 02/02/18 20:00 02/02/18 20:15 Temperature 99.9 F H Pulse Rate 106 H 106 H 93 H Respiratory Rate 17 Blood Pressure Pulse Oximetry 96 96 94 L 02/02/18 20:30 02/02/18 20:43 02/02/18 20:45 Temperature Pulse Rate 105 H 101 H 105 H Respiratory Rate 15 Blood Pressure Pulse Oximetry 96 95 95 02/02/18 21:00 02/02/18 21:15 02/02/18 21:30 Temperature Pulse Rate 103 H 106 H 101 H Respiratory Rate Blood Pressure Pulse Oximetry 96 97 94 L 02/02/18 21:45 02/02/18 22:00 02/02/18 22:15 Temperature Pulse Rate 97 H 98 H 101 H Respiratory Rate Blood Pressure Pulse Oximetry 93 L 94 L 96 02/02/18 22:30 02/02/18 22:45 02/02/18 23:00 Temperature Pulse Rate 101 H 99 H 99 H Respiratory Rate Blood Pressure Pulse Oximetry 93 L 95 94 L 02/02/18 23:15 02/02/18 23:30 02/02/18 23:45 Temperature Pulse Rate 96 H 90 93 H Respiratory Rate Blood Pressure Pulse Oximetry 95 96 96 02/03/18 00:00 02/03/18 00:10 02/03/18 00:15 Temperature 98.9 F Pulse Rate 92 H 96 H Respiratory Rate 16 16 Blood Pressure Pulse Oximetry 97 93 L 91 L 02/03/18 00:30 02/03/18 00:45 02/03/18 01:00 Temperature Pulse Rate 88 91 H 93 H Respiratory Rate 16 Blood Pressure Pulse Oximetry 95 93 L 93 L 02/03/18 01:15 02/03/18 01:30 02/03/18 01:45 Temperature Pulse Rate 92 H 89 90 Respiratory Rate Blood Pressure Pulse Oximetry 94 L 95 96 02/03/18 02:00 02/03/18 02:15 02/03/18 02:30 Temperature Pulse Rate 91 H 89 90 Respiratory Rate 16 Blood Pressure Pulse Oximetry 95 96 96 02/03/18 02:45 02/03/18 03:00 02/03/18 03:15 Temperature Pulse Rate 93 H 95 H 95 H Respiratory Rate Blood Pressure Pulse Oximetry 96 96 94 L 02/03/18 03:30 02/03/18 03:45 02/03/18 03:55 Temperature Pulse Rate 92 H 94 H 94 H Respiratory Rate 16 Blood Pressure Pulse Oximetry 96 88 L 99 02/03/18 04:00 02/03/18 04:15 02/03/18 04:30 Temperature 98.8 F Pulse Rate 90 89 92 H Respiratory Rate 15 Blood Pressure Pulse Oximetry 99 97 98 02/03/18 04:45 02/03/18 05:00 02/03/18 05:15 Temperature Pulse Rate 99 H 97 H 97 H Respiratory Rate 15 Blood Pressure Pulse Oximetry 97 96 96 02/03/18 05:30 02/03/18 05:45 02/03/18 06:00 Temperature 98.9 F Pulse Rate 92 H 96 H 91 H Respiratory Rate 16 Blood Pressure Pulse Oximetry 76 L 98 02/03/18 06:15 02/03/18 06:30 02/03/18 06:45 Temperature Pulse Rate 92 H 90 100 H Respiratory Rate Blood Pressure Pulse Oximetry 98 98 88 L 02/03/18 07:00 02/03/18 07:15 02/03/18 07:30 Temperature Pulse Rate 92 H 89 88 Respiratory Rate Blood Pressure Pulse Oximetry 96 96 96 02/03/18 07:45 02/03/18 08:00 02/03/18 08:15 Temperature 98.7 F Pulse Rate 87 86 83 Respiratory Rate 14 Blood Pressure Pulse Oximetry 96 97 97 02/03/18 08:21 02/03/18 08:30 02/03/18 08:45 Temperature Pulse Rate 84 82 85 Respiratory Rate 13 Blood Pressure Pulse Oximetry 97 96 02/03/18 09:00 02/03/18 09:15 02/03/18 09:30 Temperature Pulse Rate 85 88 90 Respiratory Rate Blood Pressure Pulse Oximetry 95 96 95 02/03/18 09:45 02/03/18 10:00 02/03/18 10:15 Temperature Pulse Rate 90 87 95 H Respiratory Rate Blood Pressure Pulse Oximetry 96 96 97 02/03/18 10:30 02/03/18 10:45 02/03/18 11:00 Temperature Pulse Rate 90 93 H 90 Respiratory Rate Blood Pressure Pulse Oximetry 97 96 96 02/03/18 11:06 02/03/18 11:15 02/03/18 11:30 Temperature Pulse Rate 90 92 H 95 H Respiratory Rate 28 H Blood Pressure 128/86 Pulse Oximetry 97 96 95 02/03/18 11:45 02/03/18 12:00 02/03/18 12:15 Temperature 98.8 F Pulse Rate 100 H 97 H 97 H Respiratory Rate Blood Pressure Pulse Oximetry 96 95 95 02/03/18 12:30 02/03/18 12:45 02/03/18 13:00 Temperature Pulse Rate 100 H 100 H 100 H Respiratory Rate Blood Pressure Pulse Oximetry 96 95 96 02/03/18 13:15 02/03/18 13:29 02/03/18 13:30 Temperature Pulse Rate 96 H 98 H 96 H Respiratory Rate Blood Pressure 111/55 L Pulse Oximetry 96 96 96 02/03/18 13:45 02/03/18 14:00 02/03/18 14:15 Temperature Pulse Rate 101 H 102 H 99 H Respiratory Rate Blood Pressure Pulse Oximetry 96 96 97 02/03/18 14:30 02/03/18 14:45 02/03/18 15:00 Temperature Pulse Rate 101 H 93 H 97 H Respiratory Rate 16 Blood Pressure Pulse Oximetry 97 97 97 02/03/18 15:15 02/03/18 15:30 02/03/18 15:45 Temperature Pulse Rate 98 H 103 H 98 H Respiratory Rate Blood Pressure Pulse Oximetry 97 97 97 02/03/18 16:00 02/03/18 16:15 02/03/18 16:30 Temperature 99.7 F H Pulse Rate 102 H 98 H 104 H Respiratory Rate Blood Pressure Pulse Oximetry 98 97 84 L 02/03/18 16:45 02/03/18 17:00 02/03/18 17:01 Temperature Pulse Rate 109 H 105 H Respiratory Rate 24 Blood Pressure Pulse Oximetry 94 L 96 97 02/03/18 17:15 02/03/18 17:30 02/03/18 17:45 Temperature Pulse Rate 95 H 94 H 88 Respiratory Rate Blood Pressure Pulse Oximetry 95 97 96 Intake & Output 02/02/18 02/03/18 02/03/18 18:59 06:59 18:59 Intake Total 1809 / 1809 1475 / 1475 200 / 200 Output Total 1285 / 1285 1570 / 1570 Balance 524 / 524 -95 / -95 200 / 200 Weight 78.5 kg Intake: IV 600 / 600 550 / 550 200 / 200 Flexbumin 25% Inj 100 ML @ 60 100 / 100 100 / 100 mls/hr IV.SIG Q12H [facility] Rx#: [id number] Azactam Inj 2 GM In NS Inj 100 300 / 300 100 / 100 200 / 200 ML @ 200 mls/hr IV.SIG Q6H [facility] Rx#:[id number] Teflaro Inj 300 MG In NS Inj 100 / 100 100 / 100 100 ML @ 100 mls/hr IV.SIG Q12H [facility] Rx#:[id number] Mycamine Inj 150 MG In NS Inj 100 / 100 100 ML @ 100 mls/hr IV.SIG Q24H [facility] Rx#:[id number] Levophed-Dextrose 4 mg/250 ml 250 / 250 Drip 4 mg In 250 ml @ 2 MCG/MIN 7.5 mls/hr IV.SIG TITRATE PRN Rx#:[id number] Tube Feeding 689 / 689 665 / 665 Tube Irrigant 120 / 120 Water Bolus Amount 260 / 260 Intake (Blood Product) Amt 400 / 400 Rbc As-3 Leukoreduced Unit 400 / 400 [id number] Output: Urine 1200 / 1200 Urine Amount (Catheter) 1550 / 1550 Indwelling Urethral Catheter 1550 / 1550 Wound Drainage 35 / 35 20 / 20 Left Shoulder 15 / 15 10 / 10 Right Shoulder 20 / 20 10 / 10 Chest Tube Drainage 50 / 50 Right 50 / 50 Other: Date of Last Bowel Movement 02/02/18 02/03/18 01/29/18 # Bowel Movements 2 # Incontinent Bowel Movements 1 Narrative: GENERAL: Intubated SKIN: Warm and dry. HEAD: Normocephalic. EYES: No scleral icterus. No injection or drainage. NECK: Supple, trachea intubated CARDIOVASCULAR: Regular rate and rhythm without murmurs, gallops, or rubs. RESPIRATORY: Breath sounds equal bilaterally. No accessory muscle use. GASTROINTESTINAL: Abdomen soft, non-tender, distended. EXTREMITIES: 3+ edema NEUROLOGICAL: Weak and intubated - Urinary Catheter Management Condom Cath placed during this visit: no Indwelling Urethral Catheter Cath placed during this visit: yes Reason for continuing: Hourly intake/output Insertion date: 01/20/18 Insertion time: 11:30 Assessment and Plan - Assessment (1) Acute renal failure Code(s): N17.9 - Acute kidney failure, unspecified Status: Acute (2) Atrial fibrillation Code(s): I48.91 - Unspecified atrial fibrillation Status: Acute Qualifiers: Atrial fibrillation type: unspecified Qualified Code(s): I48.91 - Unspecified atrial fibrillation (3) Sepsis Code(s): A41.9 - Sepsis, unspecified organism Status: Acute Qualifiers: Sepsis type: methicillin resistant Staphylococcus aureus Qualified Code(s) : A41.02 - Sepsis due to Methicillin resistant Staphylococcus aureus - Plan Patient received Lasix 1.4 L of urine output yesterday and today dropped to 450 cc Patient creatinine is 2.1 Cultures followed, fever improved Antibiotic coverage increase Azactam and micafungin follow urine culture Patient is on the ventilator status post right chest tube On ceftaroline/vancomycin MRSA infection bilateral shoulder Creatinine elevated May use Lasix drip to diurese he has gained 10 kg of fluid it would be difficult for him to wean off from the ventilator On albumin 25 g every 12 hours
[2018-02-03] MEDS: Furosemide Inj 100 MG in Sodium Chlor 0.9% Inj 90 ML IV.CONT SCH (19:25)
[2018-02-03] MEDS: Melatonin 5 MG Tablet PO SCH (20:13)
[2018-02-04] MEDS: Albumin Human 25% Inj 100 ML IV.SIG SCH ×2 (02:03→14:29)
[2018-02-04] MEDS: Ceftaroline Inj 300 MG in Sodium Chlor 0.9% Inj 100 ML IV.SIG SCH ×2 (02:48→14:29)
[2018-02-04] MEDS: Furosemide Inj 100 MG in Sodium Chlor 0.9% Inj 90 ML IV.CONT SCH ×3 (04:00→16:21)
[2018-02-04] MEDS: Oral Hygiene Kit OROPHARYNG SCH ×3 (04:00→16:00)
--- NOTE | 2018-02-04 04:43 | XR ---
EXAM DATE: 02/04/2018 4:38 AM EST AGE/SEX: 82 years / Male INDICATIONS: Shortness of breath. CLINICAL DATA: This is the patient's subsequent encounter. Patient reports that signs and symptoms h ave been present for 3 weeks and indicates a pain score of Nonresponsive. MEDICAL/SURGICAL HISTORY: Hypertension. A-fib. Chest tube, right. Fusion, lumbar. Central li ne. [place] [facility] [place]. . FINDINGS: Single AP view the chest. Endotracheal tube, nasogastric tube, left IJ central venous catheter remain in place. Right-sided chest tube remains in place. Persistent left medial lower lung atelectasis. Hemalatha ng volumes are decreased. Hazy opacity in the lungs bilaterally may represent mild pulmonary edema or may be due to decreased lung volumes. No evidence of pleural effusion or pneumothorax. Cardiomediast inal silhouette within normal limits. CONCLUSION: Decreased lung volumes with mild new hazy bilateral lung opacity. Electronically signed by: Ward Cervantes MD 02/04/2018 4:42 AM EST
[2018-02-04] MEDS: Levothyroxine 100 MCG Tablet PO SCH (05:12)
[2018-02-04 06:00] LABS: Baso % (Auto) 0.3 % (0.0-2.0); Eos # (Auto) 0.2 th/mm3 (0.0-0.4); Eos % (Auto) 2.2 % (0.0-4.0); Hematocrit 22.7 % (39.0-51.0); Hemoglobin 7.6 gm/dL (13.0-17.0); Lymph # (Auto) 0.7 th/mm3 (1.0-4.8); Lymph % (Auto) 8.7 % (9.0-44.0); Mean Corpuscular HGB Conc 33.6 % (32.0-36.0); Mean Corpuscular Hemoglobin 27.5 pg (27.0-34.0); Mean Corpuscular Volume 81.6 fL (80.0-100.0); Mean Platelet Volume 9.6 fL (7.0-11.0); Mono # (Auto) 0.2 th/mm3 (0.0-0.9); Mono % (Auto) 2.3 % (0.0-8.0); Neut % (Auto) 86.5 % (16.0-70.0); Platelet Count 215 th/mm3 (150-450); Red Blood Count 2.78 mil/mm3 (4.50-5.90); Red Cell Distribution Width 20.6 % (11.6-17.2); White Blood Count 8.1 th/mm3 (4.0-11.0)
[2018-02-04 06:32] LABS: Albumin 2.6 g/dL (3.4-5.0); Anion Gap 14 meq/L (5-15); Aspartate Aminotransferase 12 U/L (15-37); Blood Urea Nitrogen 63 mg/dL (7-18); Calcium 8.1 mg/dL (8.5-10.1); Carbon Dioxide 21.3 meq/L (21.0-32.0); Chloride 104 meq/L (98-107); Glomerular Filtration Rate 28 mL/min (>89); Glucose,Random 176 mg/dL (74-106); Magnesium 2.2 mg/dL (1.5-2.5); Sodium 139 meq/L (136-145)
[2018-02-04 06:35] LABS: Alanine Aminotransferase 15 U/L (12-78); Alkaline Phosphatase 382 U/L (45-117); Total Protein 5.6 g/dL (6.4-8.2)
[2018-02-04] MEDS ORDERED: Potassium Chlor 40 mEq Premix 40 MEQ/100 ML PIGGYBACK IV.SIG ONE (07:00)
--- NOTE | 2018-02-04 08:15 | P.PNNEU ---
Subjective Subjective Comments: Intubated Daughter at bedside Active Medications: Active Medications Acetaminophen (Tylenol) 650 mg PO Q4H PRN PRN Reason: Temp > 100.4 Last Admin: 01/31/18 16:32 Dose: 650 mg Acetaminophen (Tylenol Liq) 650 mg PO Q6HR [facility] Last Admin: 02/04/18 05:12 Dose: 650 mg Hydrocodone Bitart/Acetaminophen (Grove 5/325) 1 tab PO Q4H PRN PRN Reason: PAIN LESS THAN 5 ON SCALE Last Admin: 02/01/18 21:06 Dose: 1 tab Hydrocodone Bitart/Acetaminophen (Grove 5/325) 2 tab PO Q6H PRN PRN Reason: PAIN SCALE 5 TO 10 Last Admin: 02/01/18 09:05 Dose: 2 tab Acetylcysteine (Mucomyst 10% Neb) 2 ml NEB Q6HR NEB [facility] Last Admin: 02/04/18 04:07 Dose: 2 ml Al Hydroxide/Mg Hydroxide (Milk Of Magnesia Liq) 30 ml PO Q12H PRN PRN Reason: Mild Constipation Last Admin: 02/01/18 09:07 Dose: 30 ml Al Hydroxide/Mg Hydroxide (Milk Of Magnesia Liq) 30 ml PO Q12H PRN PRN Reason: CONSTIPATION Albuterol (Duoneb Neb (Prn)) 1 ampul NEB Q2HR NEB PRN PRN Reason: WHEEZING Last Admin: 01/30/18 20:24 Dose: 1 ampul Albuterol (Duoneb Neb (Mauro)) 1 ampul NEB Q6HR NEB [facility] Last Admin: 02/04/18 04:07 Dose: 1 ampul Amlodipine Besylate (Norvasc) 10 mg PO DAILY [facility] Last Admin: 01/30/18 10:40 Dose: 10 mg Bisacodyl (Dulcolax Supp) 10 mg RECTAL DAILY PRN PRN Reason: SEVERE CONSITIPATION Chlorhexidine Gluconate (Peridex 0.12% Oral Kit) 15 ml OROPHARYNG BID@0800, 2000 [facility] Last Admin: 02/03/18 20:08 Dose: 15 ml Citalopram Hydrobromide (Celexa) 20 mg PO DAILY [facility] Last Admin: 02/03/18 08:39 Dose: 20 mg Epinephrine (Racepinephrine 2.25% Neb) 0.5 ml NEB Q3HR NEB PRN PRN Reason: any upper airway noise or stri Hydralazine HCl (Apresoline Inj) 20 mg IV.PUSH Q4H PRN PRN Reason: SBP>160, DBP>90 Last Admin: 01/23/18 05:18 Dose: 20 mg Sodium Chloride (Ns Inj) 500 mls @ 30 mls/hr IV.SIG .Q10H [facility] Norepinephrine Bitartrate (Levophed-Dextrose 4 Mg/250 Ml Drip) 4 mg in 250 mls @ 7.5 mls/hr IV.SIG TITRATE PRN; Protocol PRN Reason: Per Protocol Last Titration: 02/04/18 06:59 Dose: 3 mcg/min, 11.25 mls/hr Ceftaroline Fosamil 300 mg/ (Sodium Chloride) 100 mls @ 100 mls/hr IV.SIG Q12H [facility] Last Infusion: 02/04/18 03:57 Dose: Infused Albumin Human (Flexbumin 25% Inj) 100 mls @ 60 mls/hr IV.SIG Q12H [facility] Last Infusion: 02/04/18 03:57 Dose: Infused Daptomycin 800 mg/ Sodium (Chloride) 100 mls @ 200 mls/hr IV.SIG Q48H [facility] Last Infusion: 02/03/18 19:00 Dose: Infused Furosemide 100 mg/ Sodium (Chloride) 100 mls @ 10 mls/hr IV.CONT .Q10H [facility] Last Admin: 02/04/18 04:00 Dose: 10 mls/hr Potassium Chloride (Kcl 40 Meq Premix Inj) 40 meq in 100 mls @ 25 mls/hr IV.SIG ONCE ONE Stop: 02/04/18 10:59 Lactulose (Lactulose Liq) 30 ml PO DAILY PRN PRN Reason: SEVERE CONSITIPATION Last Admin: 01/25/18 22:14 Dose: 30 ml Lactulose (Lactulose Liq) 30 ml PO BID PRN PRN Reason: CONSTIPATION Levothyroxine Sodium (Synthroid) 100 mcg PO DAILY@0600 [facility] Last Admin: 02/04/18 05:12 Dose: 100 mcg Melatonin (Melatonin) 5 mg PO HS [facility] Last Admin: 02/03/18 20:13 Dose: 5 mg Metoprolol Tartrate (Lopressor) 12.5 mg PO BID [facility] Last Admin: 01/31/18 21:28 Dose: 12.5 mg Miscellaneous (Pill Splitter) 1 each OTHER UNSCH PRN PRN Reason: PILL SPIT Miscellaneous Medication () 1 each OROPHARYNG 0000,0400,1200,1600 [facility] Last Admin: 02/04/18 04:00 Dose: 1 each Morphine Sulfate (Morphine Inj) 1 mg IV.PUSH Q3H PRN PRN Reason: pain 1-10 when npo Ondansetron HCl (Zofran Inj) 4 mg IV.PUSH Q6H PRN PRN Reason: NAUSEA OR VOMITING Pantoprazole Sodium (Protonix Inj) 40 mg IV.PUSH DAILY [facility] Last Admin: 02/03/18 08:38 Dose: 40 mg Senna/Docusate Sodium (Diana-Colace) 1 tab PO BID [facility] Last Admin: 02/03/18 20:13 Dose: Not Given Sennosides (Senokot) 17.2 mg PO Q12H PRN PRN Reason: Moderate Constipation Sodium Chloride (Ns Flush) 2 ml IV.FLUSH BID [facility] Last Admin: 02/03/18 20:13 Dose: 2 ml Sodium Chloride (Ns Flush) 2 ml IV.FLUSH PRN PRN PRN Reason: FLUSH AFTER USING IV ACCESS Last Admin: 02/03/18 20:13 Dose: 2 ml Tamsulosin HCl (Flomax) 0.4 mg PO DAILY [facility] Last Admin: 02/03/18 08:39 Dose: 0.4 mg Terbutaline Sulfate (Brethine Inj) 1 mg SQ UNSCH PRN PRN Reason: For Extravasation Allergies/Adverse Reactions: Allergies Allergy/AdvReac Type Severity Reaction Status Date / Time amoxicillin Allergy Severe Hives Verified 01/13/18 20:44 Review of Systems unobtainable due to endotracheal tube Physical Exam Vital signs: Vital Signs 02/03/18 08:15 02/03/18 08:21 02/03/18 08:30 Temperature Pulse Rate 83 84 82 Respiratory Rate 13 Blood Pressure Pulse Oximetry 97 97 02/03/18 08:45 02/03/18 09:00 02/03/18 09:15 Temperature Pulse Rate 85 85 88 Respiratory Rate Blood Pressure Pulse Oximetry 96 95 96 02/03/18 09:30 02/03/18 09:45 02/03/18 10:00 Temperature Pulse Rate 90 90 87 Respiratory Rate Blood Pressure Pulse Oximetry 95 96 96 02/03/18 10:15 12/10/18 10:30 02/03/18 10:45 Temperature Pulse Rate 95 H 90 93 H Respiratory Rate Blood Pressure Pulse Oximetry 97 97 96 02/03/18 11:00 02/03/18 11:06 02/03/18 11:15 Temperature Pulse Rate 90 90 92 H Respiratory Rate Blood Pressure 128/86 Pulse Oximetry 96 97 96 02/03/18 11:30 02/03/18 11:45 02/03/18 12:00 Temperature 98.8 F Pulse Rate 95 H 100 H 97 H Respiratory Rate 28 H Blood Pressure Pulse Oximetry 95 96 95 02/03/18 12:15 02/03/18 12:30 02/03/18 12:45 Temperature Pulse Rate 97 H 100 H 100 H Respiratory Rate Blood Pressure Pulse Oximetry 95 96 95 02/03/18 13:00 02/03/18 13:15 02/03/18 13:29 Temperature Pulse Rate 100 H 96 H 98 H Respiratory Rate Blood Pressure 111/55 L Pulse Oximetry 96 96 96 02/03/18 13:30 02/03/18 13:45 02/03/18 14:00 Temperature Pulse Rate 96 H 101 H 102 H Respiratory Rate Blood Pressure Pulse Oximetry 96 96 96 02/03/18 14:15 02/03/18 14:30 02/03/18 14:45 Temperature Pulse Rate 99 H 101 H 93 H Respiratory Rate Blood Pressure Pulse Oximetry 97 97 97 02/03/18 15:00 02/03/18 15:15 02/03/18 15:30 Temperature Pulse Rate 97 H 98 H 103 H Respiratory Rate 16 Blood Pressure Pulse Oximetry 97 97 97 02/03/18 15:45 02/03/18 16:00 02/03/18 16:15 Temperature 99.7 F H Pulse Rate 98 H 102 H 98 H Respiratory Rate Blood Pressure Pulse Oximetry 97 98 97 02/03/18 16:30 02/03/18 16:45 02/03/18 17:00 Temperature Pulse Rate 104 H 109 H 105 H Respiratory Rate Blood Pressure Pulse Oximetry 84 L 94 L 96 02/03/18 17:01 02/03/18 17:15 02/03/18 17:30 Temperature Pulse Rate 95 H 94 H Respiratory Rate 24 Blood Pressure Pulse Oximetry 97 95 97 02/03/18 17:45 02/03/18 18:00 02/03/18 18:15 Temperature Pulse Rate 88 89 91 H Respiratory Rate Blood Pressure Pulse Oximetry 96 96 96 02/03/18 18:30 02/03/18 18:45 02/03/18 19:00 Temperature Pulse Rate 87 90 88 Respiratory Rate Blood Pressure Pulse Oximetry 96 97 96 02/03/18 19:15 02/03/18 19:30 02/03/18 19:45 Temperature Pulse Rate 87 88 85 Respiratory Rate Blood Pressure Pulse Oximetry 97 96 96 02/03/18 20:00 02/03/18 20:15 02/03/18 20:30 Temperature 98.6 F Pulse Rate 87 84 86 Respiratory Rate Blood Pressure Pulse Oximetry 98 96 96 02/03/18 20:39 02/03/18 20:45 02/03/18 21:00 Temperature Pulse Rate 84 87 90 Respiratory Rate 14 Blood Pressure Pulse Oximetry 97 96 96 02/03/18 21:15 02/03/18 21:30 02/03/18 21:45 Temperature Pulse Rate 96 H 100 H 101 H Respiratory Rate Blood Pressure Pulse Oximetry 95 98 97 02/03/18 22:00 02/03/18 22:15 02/03/18 22:30 Temperature Pulse Rate 97 H 95 H 95 H Respiratory Rate Blood Pressure Pulse Oximetry 96 97 97 02/03/18 22:45 02/03/18 23:00 02/03/18 23:15 Temperature Pulse Rate 93 H 95 H 92 H Respiratory Rate Blood Pressure Pulse Oximetry 97 96 98 02/03/18 23:30 02/03/18 23:45 02/04/18 00:00 Temperature 98.5 F Pulse Rate 89 95 H 94 H Respiratory Rate Blood Pressure Pulse Oximetry 96 96 97 02/04/18 00:15 02/04/18 00:20 02/04/18 00:30 Temperature Pulse Rate 91 H 92 H Respiratory Rate 14 Blood Pressure 122/55 L Pulse Oximetry 96 94 L 94 L 02/04/18 00:45 02/04/18 01:00 02/04/18 01:15 Temperature Pulse Rate 93 H 92 H 91 H Respiratory Rate Blood Pressure Pulse Oximetry 95 94 L 95 02/04/18 01:30 02/04/18 01:45 02/04/18 02:00 Temperature Pulse Rate 96 H 94 H 87 Respiratory Rate Blood Pressure Pulse Oximetry 95 95 02/04/18 02:15 02/04/18 02:30 02/04/18 02:45 Temperature Pulse Rate 87 86 87 Respiratory Rate Blood Pressure Pulse Oximetry 95 94 L 93 L 02/04/18 03:00 02/04/18 03:15 02/04/18 03:30 Temperature Pulse Rate 87 90 85 Respiratory Rate Blood Pressure Pulse Oximetry 95 95 96 02/04/18 03:45 02/04/18 04:00 02/04/18 04:07 Temperature 98.1 F Pulse Rate 86 87 89 Respiratory Rate 17 Blood Pressure 149/70 H Pulse Oximetry 94 L 95 95 02/04/18 04:15 02/04/18 04:30 02/04/18 04:45 Temperature Pulse Rate 86 96 H 92 H Respiratory Rate Blood Pressure Pulse Oximetry 95 95 95 02/04/18 05:00 Temperature Pulse Rate 93 H Respiratory Rate Blood Pressure Pulse Oximetry 95 Intake & Output 02/03/18 02/04/18 02/04/18 18:59 06:59 18:59 Intake Total 1021 / 1021 1315 / 1315 Output Total 1220 / 1220 1360 / 1360 Balance -199 / -199 -45 / -45 Weight 78 kg Intake: IV 200 / 200 700 / 700 Lasix Inj 100 MG In NS Inj 90 100 / 100 ML @ 10 mls/hr IV.CONT .Q10H [facility] Rx#:[id number] Flexbumin 25% Inj 100 ML @ 60 200 / 200 mls/hr IV.SIG Q12H [facility] Rx#: [id number] Azactam Inj 2 GM In NS Inj 100 200 / 200 ML @ 200 mls/hr IV.SIG Q6H [facility] Rx#:[id number] Teflaro Inj 300 MG In NS Inj 200 / 200 100 ML @ 100 mls/hr IV.SIG Q12H [facility] Rx#:[id number] Cubicin Inj 800 MG In NS Inj 100 / 100 100 ML @ 200 mls/hr IV.SIG Q48H [facility] Rx#:[id number] Mycamine Inj 150 MG In NS Inj 100 / 100 100 ML @ 100 mls/hr IV.SIG Q24H [facility] Rx#:[id number] Tube Feeding 821 / 821 515 / 515 Tube Irrigant 100 / 100 Output: Urine Amount (Catheter) 1100 / 1100 1350 / 1350 Indwelling Urethral Catheter 1100 / 1100 1350 / 1350 Chest Tube Drainage 120 / 120 Right 120 / 120 Other: Date of Last Bowel Movement 01/29/18 02/04/18 # Bowel Movements 1 # Incontinent Bowel Movements 1 Narrative: GENERAL: Well-nourished, well-developed intubated patient. SKIN: Warm and dry. HEAD: Normocephalic. EYES: No scleral icterus. NECK: Supple, trachea midline. CARDIOVASCULAR: Irregular RESPIRATORY: Intubated, no accessory muscle use GASTROINTESTINAL: Abdomen soft, non-tender, EXTREMITIES: Shoulder bandage kevin NEUROLOGICAL:intubated, arousable, follows motor request closes eyes she has 2 fingers with each hand and able to slightly wiggle his toes, has peripheral edema severe generalized weakness unable to raise any extremity to gravity depressed reflexes plantarflex her no clonus - Constitutional no acute distress - Routine HEENT Exam Head: Present: normocephalic - Urinary Catheter Management Condom Cath placed during this visit: no Indwelling Urethral Catheter Cath placed during this visit: yes Reason for continuing: Hourly intake/output Insertion date: 01/20/18 Insertion time: 11:30 Objective Laboratory Results - last 24 hr 02/04/18 02/04/18 02/04/18 05:45 05:45 05:45 WBC 8.1 RBC 2.78 L Hgb 7.6 L Hct 22.7 L MCV 81.6 MCH 27.5 MCHC 33.6 RDW 20.6 H Plt Count 215 MPV 9.6 Prelim Diff (Auto) Slide review pending Neut % (Auto) 86.5 H Lymph % (Auto) 8.7 L Marion % (Auto) 2.3 Eos % (Auto) 2.2 Baso % (Auto) 0.3 Neut # (Auto) 7.0 Lymph # (Auto) 0.7 L Marion # (Auto) 0.2 Eos # (Auto) 0.2 Baso # (Auto) 0.0 Differential Comment . Sodium 139 Potassium 3.0 L Chloride 104 Carbon Dioxide 21.3 Anion Gap 14 BUN 63 H Creatinine 2.26 H Estimated GFR 28 L Random Glucose 176 H Calcium 8.1 L Magnesium 2.2 Total Bilirubin 2.2 H AST 12 L ALT 15 Alkaline Phosphatase 382 H Total Protein 5.6 L Albumin 2.6 L Random Vancomycin 18.1 Microbiology 01/31/18 11:16 Aerobic Blood Culture - Preliminary Blood - Peripheral No growth in 3 days Anaerobic Blood Culture - Preliminary No growth in 3 days 01/31/18 11:10 Aerobic Blood Culture - Preliminary Blood - Peripheral No growth in 3 days Anaerobic Blood Culture - Preliminary No growth in 3 days 01/17/18 18:56 Fungal Smear - Final Fluid - Other No fungal elements seen Fungal Culture - Preliminary No growth in 2 weeks Review/Management - Diagnosis (1) Disuse muscle atrophy Code(s): M62.50 - Muscle wasting and atrophy, not elsewhere classified, unspecified site Status: Acute Current Visit: Yes (2) Weakness Code(s): R53.1 - Weakness Status: Acute Current Visit: Yes (3) Acute UTI Code(s): N39.0 - Urinary tract infection, site not specified Status: Acute Current Visit: Yes (4) Atrial fibrillation Code(s): I48.91 - Unspecified atrial fibrillation Status: Acute Current Visit: Yes (5) Encephalomalacia on imaging study Code(s): G93.89 - Other specified disorders of brain Status: Acute Current Visit: Yes (6) Renal insufficiency Code(s): N28.9 - Disorder of kidney and ureter, unspecified Status: Acute Current Visit: Yes (7) MRSA (methicillin resistant Staphylococcus aureus) Code(s): A49.02 - Methicillin resistant Staphylococcus aureus infection, unspecified site Status: Acute Current Visit: Yes (8) Sepsis Code(s): A41.9 - Sepsis, unspecified organism Status: Acute Current Visit: Yes (9) Acute renal failure Code(s): N17.9 - Acute kidney failure, unspecified Status: Acute Current Visit: Yes (10) Pulmonary edema Code(s): J81.1 - Chronic pulmonary edema Status: Acute Current Visit: Yes - Review/Management Plan: Subacute progressive weakness apparently occurring couple days after flu vaccine however, found to have MRSA sepsis, shoulder abscess and possibly lumbar spine infection CK level and prealbumin is low disuse atrophy 2/2 sepsis/bedridden Moderate left frontal encephalomalacia appearing to be from meningioma resection bilateral shoulder i/d, arthrotomy Progressive renal failure, hypoalbuminemia, anasarca Critical illness mononeuropathy Recommendation Able to follow motor requests this morning Progressive uremia which could cause hypersomnolence and metabolic encephalopathy Aggressive nutritional support, extubation per [facility] however he may require trach DVT prophylaxis, blood thinners per CCM CCM/ID/renal management pt critically ill d/w pt's daughter, rn at bedside (4) Atrial fibrillation Qualifiers: Qualified Code(s): I48.91 - Unspecified atrial fibrillation (8) Sepsis Qualifiers: Qualified Code(s): A41.02 - Sepsis due to Methicillin resistant Staphylococcus aureus
[2018-02-04 08:21] LABS: Eosinophils 3 % (0-4); Lymphocytes 6 % (9-44); Metamyelocytes 1 % (0-1); Monocytes 1 % (0-8); Ovalocytes 1+
[2018-02-04 08:22] LABS: Tear Drop Cells 1+; Toxic Granulation 1+
[2018-02-04 08:23] LABS: Acanthocytes Occ; Platelet Estimate Normal (Normal)
[2018-02-04] MEDS: Pantoprazole Inj 40 MG Vial IV.PUSH SCH (08:32)
[2018-02-04] MEDS: Chlorhexidine 0.12% Oral Kit 15 ML UDC OROPHARYNG SCH ×2 (08:34→19:53)
[2018-02-04] MEDS: Citalopram 20 MG Tablet PO SCH (08:34)
[2018-02-04] MEDS: Senna/Docusate Sodium 8.6/50 MG Tablet PO SCH ×2 (08:34→20:00)
--- NOTE | 2018-02-04 09:02 | P.PNCC ---
Subjective Subjective Remarks/Hospital Course: This 82-year-old gentleman was transferred emergently from the floor to the surgical intensive care unit because of rapid onset combined hypoxemic and hypercapnic respiratory failure. On arrival he has diffuse crackles throughout both lung santizo and his neck veins are distended. On admission several days ago he was dehydrated and had an element of acute kidney injury. His weight is up about 5 kg since admission though his renal function has improved. On arrival he is breathing 40 times a minute on a nonrebreathing mask with pH of 7.18 and P CO2 of 74. His acidosis is purely respiratory and associated with bronchospasm from fluid overload. B natruretic peptide is elevated to greater than 2000. Other pertinent major problems include septic joint drainage and treatment. 01/22: Critical care reconsulted for worsening resp status. On BIPAP with fulkl face mask. CXR with bilat infiltrates/ pulm edema. Reaccumulated rt shoulder collection. After d/w family proceeded with intubation and placed patient on [facility] ventilation. Placed central line. D/W Dr. Mani Sherman who is arranging US guided drainage/ drain placement for shoulder collection. 01/23: Remains sedated, orally intubated on mechanical ventilation. Significant diuresis with 11 L negative over the last 3 days. Awaiting left shoulder percutaneous drainage of collection by interventional radiology today. 1 unit PRBCs ordered as patient has borderline blood pressures with hemoglobin less than 8. 01/24: Sedated, arousable, orally intubated on mechanical ventilation. Tolerating tube feeds. s/p [id number] drain placement in rt shoulder fluid collection on 01/23. 01/25: He had a good trial on spontaneous breathing yesterday. Mechanical ventilation overnight. Started on spontaneous breathing trial this morning at 12/5 and volumes were small. Increased to 15/8 and volumes looked better with each breath. Still producing lots of thick secretions, dark yellow. Unable to extubate due to general weakness and inability to cough numerous secretions. FiO2 reduced to 40% and gas exchange good. Clearly improved respiratory function from yesterday. Tolerating tube feeds well, gastric residuals minimal , remains constipated and will start on milk of magnesia and. 01/26: Right lower lobe nicely reexpanded after 24 hours on APRV. FI02 reduced to 30%. More alert today, will attempt to extubate. Worsening azotemia appears to be prerenal. We will need to give some volume back. General strength and alertness has improved. 01/27: On BiPAP since last evening. Appears comfortable with 100% O2 sat. Awake and alert. On tube feeds via NG tube 01/28: Resting comfortably, On BIPAP overnight. Tolerating facemask during day prn. Tolerating tube feeds. Hgb 7.1 today, 1 unit PRBCs ordered. 01/29: Was on nasal cannula all day. Last night developed worsening respiratory status and tachypnea for which he was placed on BiPAP. Remains on BiPAP this morning and appears comfortable. Chest x-ray this morning shows haziness over right lung field with probable pulmonary edema versus infiltrate. 01/30: Surgery yesterday for bilateral shoulder collections under general anesthesia, tolerated procedure well was subsequently transferred back to the ICU and kept orally intubated on mechanical ventilation overnight. CT chest done yesterday revealed bilateral pleural effusions right greater than left for which CT- guided thoracentesis with pigtail catheter placement being scheduled with IR. 01/31: Remains sedated, orally intubated on mechanical ventilation. Underwent right-sided pigtail catheter placement by IR yesterday with drainage of about 800 cc of pleural fluid. Tolerating tube feeds. Planning CPAP trials today. Evaluated by Dr. Macias from pulmonary yesterday 02/01: Remains sedated, orally intubated on mechanical ventilation. On Levophed 1.5 mics per minute. Blood pressure labile, currently 140s. Significant oral secretions however ET tube with minimal secretions overnight. Tolerating tube feeds. New left IJ central line placed on 01/31 and right IJ central line removed. 02/02: Remains intubated more awake currently on 2 mics of Levophed to maintain map above 65. Patient is able to follow commands even though weak. Urine output of approximately 1200 mL in 24 hours, chest tube output 50 mL. Family is at the bedside 02/03: No acute events reported overnight. Patient remains very lethargic and weak. Tolerated CPAP intermittently yesterday. Remains on IV Lasix to mobilize fluid. Urine output 1.5 L in 24 hours. Creatinine slightly increased to 2.16, however patient is grossly fluid positive. Will continue with diuresis. Son at the bedside updated today. Because of generalized weakness it is recommended patient get a tracheostomy for safe ventilator weaning and to facilitate aggressive physical therapy 02/04: Remains off sedation today. Slightly more awake weakly follows commands x4. He does respond to track more today. Remains quite weak though. Urine output improved with Lasix drip. 2.5 L output in 24 hours, however creatinine increased to 2.26. Nephrology following Objective Vital Signs / I&O: Vital Signs 02/03/18 09:15 02/03/18 09:30 02/03/18 09:45 Temperature Pulse Rate 88 90 90 Respiratory Rate Blood Pressure Pulse Oximetry 96 95 96 02/03/18 10:00 02/03/18 10:15 02/03/18 10:30 Temperature Pulse Rate 87 95 H 90 Respiratory Rate Blood Pressure Pulse Oximetry 96 97 97 02/03/18 10:45 02/03/18 11:00 02/03/18 11:06 Temperature Pulse Rate 93 H 90 90 Respiratory Rate Blood Pressure 128/86 Pulse Oximetry 96 96 97 02/03/18 11:15 02/03/18 11:30 02/03/18 11:45 Temperature Pulse Rate 92 H 95 H 100 H Respiratory Rate 28 H Blood Pressure Pulse Oximetry 96 95 96 02/03/18 12:00 02/03/18 12:15 02/03/18 12:30 Temperature 98.8 F Pulse Rate 97 H 97 H 100 H Respiratory Rate Blood Pressure Pulse Oximetry 95 95 96 02/03/18 12:45 02/03/18 13:00 02/03/18 13:15 Temperature Pulse Rate 100 H 100 H 96 H Respiratory Rate Blood Pressure Pulse Oximetry 95 96 96 02/03/18 13:29 02/03/18 13:30 02/03/18 13:45 Temperature Pulse Rate 98 H 96 H 101 H Respiratory Rate Blood Pressure 111/55 L Pulse Oximetry 96 96 96 02/03/18 14:00 02/03/18 14:15 02/03/18 14:30 Temperature Pulse Rate 102 H 99 H 101 H Respiratory Rate Blood Pressure Pulse Oximetry 96 97 97 02/03/18 14:45 02/03/18 15:00 02/03/18 15:15 Temperature Pulse Rate 93 H 97 H 98 H Respiratory Rate 16 Blood Pressure Pulse Oximetry 97 97 97 02/03/18 15:30 02/03/18 15:45 02/03/18 16:00 Temperature 99.7 F H Pulse Rate 103 H 98 H 102 H Respiratory Rate Blood Pressure Pulse Oximetry 97 97 98 02/03/18 16:15 02/03/18 16:30 02/03/18 16:45 Temperature Pulse Rate 98 H 104 H 109 H Respiratory Rate Blood Pressure Pulse Oximetry 97 84 L 94 L 02/03/18 17:00 02/03/18 17:01 02/03/18 17:15 Temperature Pulse Rate 105 H 95 H Respiratory Rate 24 Blood Pressure Pulse Oximetry 96 97 95 02/03/18 17:30 02/03/18 17:45 02/03/18 18:00 Temperature Pulse Rate 94 H 88 89 Respiratory Rate Blood Pressure Pulse Oximetry 97 96 96 02/03/18 18:15 02/03/18 18:30 02/03/18 18:45 Temperature Pulse Rate 91 H 87 90 Respiratory Rate Blood Pressure Pulse Oximetry 96 96 97 02/03/18 19:00 02/03/18 19:15 02/03/18 19:30 Temperature Pulse Rate 88 87 88 Respiratory Rate Blood Pressure Pulse Oximetry 96 97 96 02/03/18 19:45 02/03/18 20:00 02/03/18 20:15 Temperature 98.6 F Pulse Rate 85 87 84 Respiratory Rate Blood Pressure Pulse Oximetry 96 98 96 02/03/18 20:30 02/03/18 20:39 02/03/18 20:45 Temperature Pulse Rate 86 84 87 Respiratory Rate 14 Blood Pressure Pulse Oximetry 96 97 96 02/03/18 21:00 02/03/18 21:15 02/03/18 21:30 Temperature Pulse Rate 90 96 H 100 H Respiratory Rate Blood Pressure Pulse Oximetry 96 95 98 02/03/18 21:45 02/03/18 22:00 02/03/18 22:15 Temperature Pulse Rate 101 H 97 H 95 H Respiratory Rate Blood Pressure Pulse Oximetry 97 96 97 02/03/18 22:30 02/03/18 22:45 02/03/18 23:00 Temperature Pulse Rate 95 H 93 H 95 H Respiratory Rate Blood Pressure Pulse Oximetry 97 97 96 02/03/18 23:15 02/03/18 23:30 02/03/18 23:45 Temperature Pulse Rate 92 H 89 95 H Respiratory Rate Blood Pressure Pulse Oximetry 98 96 96 02/04/18 00:00 02/04/18 00:15 02/04/18 00:20 Temperature 98.5 F Pulse Rate 94 H 91 H Respiratory Rate 14 Blood Pressure Pulse Oximetry 97 96 94 L 02/04/18 00:30 02/04/18 00:45 02/04/18 01:00 Temperature Pulse Rate 92 H 93 H 92 H Respiratory Rate Blood Pressure 122/55 L Pulse Oximetry 94 L 95 94 L 02/04/18 01:15 02/04/18 01:30 02/04/18 01:45 Temperature Pulse Rate 91 H 96 H 94 H Respiratory Rate Blood Pressure Pulse Oximetry 95 95 02/04/18 02:00 02/04/18 02:15 02/04/18 02:30 Temperature Pulse Rate 87 87 86 Respiratory Rate Blood Pressure Pulse Oximetry 95 95 94 L 02/04/18 02:45 02/04/18 03:00 02/04/18 03:15 Temperature Pulse Rate 87 87 90 Respiratory Rate Blood Pressure Pulse Oximetry 93 L 95 95 02/04/18 03:30 02/04/18 03:45 02/04/18 04:00 Temperature 98.1 F Pulse Rate 85 86 87 Respiratory Rate Blood Pressure 149/70 H Pulse Oximetry 96 94 L 95 02/04/18 04:07 02/04/18 04:15 02/04/18 04:30 Temperature Pulse Rate 89 86 96 H Respiratory Rate 17 Blood Pressure Pulse Oximetry 95 95 95 02/04/18 04:45 02/04/18 05:00 02/04/18 05:15 Temperature Pulse Rate 92 H 93 H 93 H Respiratory Rate Blood Pressure Pulse Oximetry 95 95 92 L 02/04/18 05:30 02/04/18 05:45 02/04/18 06:00 Temperature Pulse Rate 94 H 93 H 99 H Respiratory Rate Blood Pressure Pulse Oximetry 94 L 95 94 L 02/04/18 06:15 02/04/18 06:30 02/04/18 06:45 Temperature Pulse Rate 94 H 96 H 95 H Respiratory Rate Blood Pressure Pulse Oximetry 93 L 94 L 95 02/04/18 07:00 02/04/18 07:15 02/04/18 07:30 Temperature Pulse Rate 95 H 88 90 Respiratory Rate 14 Blood Pressure Pulse Oximetry 94 L 94 L 94 L 02/04/18 07:45 02/04/18 08:00 02/04/18 08:15 Temperature 100 F H Pulse Rate 90 94 H 93 H Respiratory Rate 14 Blood Pressure Pulse Oximetry 94 L 94 L 94 L 02/04/18 08:30 02/04/18 08:45 Temperature Pulse Rate 93 H 90 Respiratory Rate Blood Pressure Pulse Oximetry 93 L 95 Intake & Output 02/03/18 02/04/18 02/04/18 18:59 06:59 18:59 Intake Total 1021 / 1021 1315 / 1315 Output Total 1220 / 1220 1360 / 1360 Balance -199 / -199 -45 / -45 Weight 78 kg Intake: IV 200 / 200 700 / 700 Lasix Inj 100 MG In NS Inj 90 100 / 100 ML @ 10 mls/hr IV.CONT .Q10H [facility] Rx#:[id number] Flexbumin 25% Inj 100 ML @ 60 200 / 200 mls/hr IV.SIG Q12H [facility] Rx#: [id number] Azactam Inj 2 GM In NS Inj 100 200 / 200 ML @ 200 mls/hr IV.SIG Q6H [facility] Rx#:[id number] Teflaro Inj 300 MG In NS Inj 200 / 200 100 ML @ 100 mls/hr IV.SIG Q12H [facility] Rx#:[id number] Cubicin Inj 800 MG In NS Inj 100 / 100 100 ML @ 200 mls/hr IV.SIG Q48H [facility] Rx#:[id number] Mycamine Inj 150 MG In NS Inj 100 / 100 100 ML @ 100 mls/hr IV.SIG Q24H [facility] Rx#:[id number] Tube Feeding 821 / 821 515 / 515 Tube Irrigant 100 / 100 Output: Urine Amount (Catheter) 1100 / 1100 1350 / 1350 Indwelling Urethral Catheter 1100 / 1100 1350 / 1350 Chest Tube Drainage 120 / 120 10 / 10 Right 120 / 120 10 / 10 Other: Date of Last Bowel Movement 01/29/18 02/04/18 02/04/18 # Bowel Movements 1 # Incontinent Bowel Movements 1 Result Diagrams: 02/04/18 05:45 02/04/18 05:45 Objective Remarks: General: Arousable, orally intubated on mechanical ventilation. Eyes are open, tracks HEENT: Positive pallor, no icterus, oral intubated Neck : Supple Chest/pulm: Orally intubated on mechanical ventilation, air entry decreased bilaterally at bases, scattered rhonchi, no wheezing. Right-sided pigtail catheter in place, 130 ml output in 24 hours CVS: S1S2, irregular rhythm. On Levophed at 2-4 mcg/min Abd: Soft, nontender, bowel sounds present. No guarding. No distention. Ext: Warm bilaterally. Dressing over bilateral shoulder surgical site clean dry and intact. ZOEY drains in place. Trace peripheral edema Neuro: Arousable, tracking today. Weakly follows commands x4. Generalized weakness persist. Grossly nonfocal. Assessment and Plan - Assessment and Plan Plan: Assessment and Plan: Acute combined hypercapnic and hypoxemic respiratory failure Fluid overload/noncardiogenic Pulmonary edema secondary to sepsis MRSA pneumonia Mucus plugging Critical illness myopathy -Continue bronchodilators -BNP elevated, diuresed to mobilize fluid. Continue Lasix infusion per nephrology -Scott required for BPH as well as diuresis, accurate hourly intake output -Intubated and placed on mech ventilation on 01/22. -Status post bronchoscopy with BAL on 01/22 with significant mucus plugging noted in the right-sided airways including right mainstem bronchus for which BAL was performed with significant clearing of airway. -Status post bronchoscopy 02/02/[address] Morales -right mainstem bronchus with some mucous plugs noted which was suctioned out. -Continue mechanical ventilation, vent bundle. Mucomyst to mobilize secretions. -Frequent suctioning required. Previously extubated 01/25. Required BiPAP on 01/29 and was intubated for bilateral shoulder surgery and remains on mechanical ventilation since 01/29 postoperatively. -CT chest with bilateral effusions. S/p CT-guided right-sided thoracentesis/ pigtail catheter placement with IR on 01/30. -Dr. Jacky Macias for pulmonary per family request. -Daily CPAP trials. Get patient up to stretcher chair while on the vent daily. PT OT daily -Patient has significant generalized weakness, continues to fail prolonged CPAP trials -The patient will benefit from tracheostomy to facilitate ventilator weaning and to facilitate aggressive physical therapy MRSA septicemia, septic right shoulder, L spine diskitis, left supraclavicular abscess Septic right shoulder, s/p I&D Urinary tract infection. 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 Tapering steroid Blood cultures positive for MRSA. 2D echocardiogram did not show any findings consistent with vegetations. Patient also had a right shoulder effusion, orthopedics aspirated the shoulder - approximately 30 cc of purulent fluid. Orthopedics performed surgery/drainage of bilateral shoulder collections on 01/29 Previously IR consulted s/p CT-guided drainage of left posterior supraclavicular /posterior chest wall abscess on 01/17/18. s/p US guided drainage of shoulder collection by IR done on 01/23 Continue IV antibiotics per infectious disease recommendations. NM WBC scan 01/18/18 and 01/19/18. Imaging discussed with radiology and it seems patient with multiple focal infections bilateral shoulders, also back at the hardware with diskitis/osteomyelitis. Neurology, ID, hem onc following KEKE on CKD. Getting diuresed, Strict I/O, monitor/ replete electrolytes, follow BUN/ Cr Nephrology following, appreciate recs. IV Lasix gtt per nephrology Significant fluid removal with diuresis but creatinine increased. Remains grossly fluid positive CVS Atrial Fibrillation, permanent Noncardiogenic pulmonary edema Hypotension Rate well controlled. Recent ECHO EF 65% Dr. Garner following-discussed with Dr. Garner on 01/22. We agreed with diuresing patient for noncardiogenic pulmonary edema while watching renal function/ BP. Remains on Levophed to maintain map above 65 Holding amlodipine and Lopressor in view of labile blood pressure requiring Levophed. Lasix 40 mg IV x1 dose ordered on 01/29 for positive fluid balance and worsening respiratory status, Lasix gtt 10 mg per hour started 02/03 Anemia 1 unit PRBCs ordered to be transfused on 01/23, 1 unit PRBCs ordered on 01/28 to keep hemoglobin above 8 g%. 1 unit PRBC given 02/02/2018 No overt evidence of blood loss. Follow CBC. Transfuse 1 unit PRBC Protein calorie malnutrition -Inserted NGT 01/22 following intubation, Continue tube feeds and advance to goal as well tolerated. BPH - Continue Flomax. DVT prophylaxis per surgeon Access: RIJ central line placed 01/22 -discontinued on 01/31. New left IJ central line placed 01/31 01/22: D/w Dr. Mani Sherman, D/W IMMIGRATION JUDGE, D/W patient's family at bedside. 01/23 D/W patient's daughter at bedside regarding current clinical status and plan of care and they voiced understanding and were agreeable with plan of care. D/W ID-Dr Tom on 01/23 01/24: Discussed with patient's family at bedside regarding current clinical status and plan of care and they voiced understanding. Discussed with ID Dr. Tom, discussed with Dr. Piña. Discussed with IMMIGRATION JUDGE. 01/25: I spoke with patient's daughter at the bedside this morning. We discussed goals for ventilator weaning and nutrition. I spoke with extensive family members later in the day. 01/26: I spoke at length with the patient's daughter this morning and will speak extensively with other family members later today. 01/27: I spoke with patient's family member at bedside regarding his respiratory status and plan of care and he voiced understanding. Will come back and update other family members later. 01/28: I updated family regarding plan of care. 01/29: Update multiple family members regarding clinical status including borderline respiratory status requiring BiPAP. Patient scheduled for surgery which was also discussed. I explained that patient will probably remain on mechanical ventilation postoperatively until improvement in respiratory status. 01/30: Treated patient's family regarding current clinical status including plan of care. Discussed need for thoracentesis and pigtail catheter placement for right effusion and possible need for bronchoscopy/BAL. They voiced understanding and were agreeable with plan of care. Discussed with Dr. Tom , discussed with Dr. Jacky Macias from pulmonary who was consulted as well for further evaluation of respiratory failure. 01/31: Discussed with patient's daughter/multiple family members at bedside regarding current clinical status and plan of care and they voiced understanding and was agreeable. Discussed with ID Dr. Tom 02/01: Discussed with patient son at bedside regarding current clinical status and plan of care and he voiced understanding and was agreeable. 02/02: Updated family members at the bedside 02/03 Updated son at bedside 02/04 updated family at the bedside Condition critical Level 3 Code Status: Full
--- NOTE | 2018-02-04 09:32 | MG ---
cc: Geoff Acevedo MD SUBJECTIVE: The patient is intubated, 82-year-old left frontal lobe abnormality. FINDINGS: Recording shows a 10 Hz, 60 microvolt symmetric rhythm. There does appear to be some focal slowing over the left frontal lobe in the delta range at times. Somewhat phase reversing but not particularly epileptiform. Hyperventilation is not performed. Photic stimulation is performed without significant posterior driving. IMPRESSION: Some left frontal slowing, but not epileptiform. No other abnormalities are seen. MD DIDI Louie/chana/suzanne , 07:50 AM , 07:54 AM
--- NOTE | 2018-02-04 15:00 | P.PNNP ---
Subjective Interval history: Patient remains on ventilator started on Lasix drip and he has increased urine output 2.4 L Physical Exam Vital signs: Vital Signs 02/03/18 15:00 02/03/18 15:15 02/03/18 15:30 Temperature Pulse Rate 97 H 98 H 103 H Respiratory Rate 16 Blood Pressure Pulse Oximetry 97 97 97 02/03/18 15:45 02/03/18 16:00 02/03/18 16:15 Temperature 99.7 F H Pulse Rate 98 H 102 H 98 H Respiratory Rate Blood Pressure Pulse Oximetry 97 98 97 02/03/18 16:30 02/03/18 16:45 02/03/18 17:00 Temperature Pulse Rate 104 H 109 H 105 H Respiratory Rate Blood Pressure Pulse Oximetry 84 L 94 L 96 02/03/18 17:01 02/03/18 17:15 02/03/18 17:30 Temperature Pulse Rate 95 H 94 H Respiratory Rate 24 Blood Pressure Pulse Oximetry 97 95 97 02/03/18 17:45 02/03/18 18:00 02/03/18 18:15 Temperature Pulse Rate 88 89 91 H Respiratory Rate Blood Pressure Pulse Oximetry 96 96 96 02/03/18 18:30 02/03/18 18:45 02/03/18 19:00 Temperature Pulse Rate 87 90 88 Respiratory Rate Blood Pressure Pulse Oximetry 96 97 96 02/03/18 19:15 02/03/18 19:30 02/03/18 19:45 Temperature Pulse Rate 87 88 85 Respiratory Rate Blood Pressure Pulse Oximetry 97 96 96 02/03/18 20:00 02/03/18 20:15 02/03/18 20:30 Temperature 98.6 F Pulse Rate 87 84 86 Respiratory Rate Blood Pressure Pulse Oximetry 98 96 96 02/03/18 20:39 02/03/18 20:45 02/03/18 21:00 Temperature Pulse Rate 84 87 90 Respiratory Rate 14 Blood Pressure Pulse Oximetry 97 96 96 02/03/18 21:15 02/03/18 21:30 02/03/18 21:45 Temperature Pulse Rate 96 H 100 H 101 H Respiratory Rate Blood Pressure Pulse Oximetry 95 98 97 02/03/18 22:00 02/03/18 22:15 02/03/18 22:30 Temperature Pulse Rate 97 H 95 H 95 H Respiratory Rate Blood Pressure Pulse Oximetry 96 97 97 02/03/18 22:45 02/03/18 23:00 02/03/18 23:15 Temperature Pulse Rate 93 H 95 H 92 H Respiratory Rate Blood Pressure Pulse Oximetry 97 96 98 02/03/18 23:30 02/03/18 23:45 02/04/18 00:00 Temperature 98.5 F Pulse Rate 89 95 H 94 H Respiratory Rate Blood Pressure Pulse Oximetry 96 96 97 02/04/18 00:15 02/04/18 00:20 02/04/18 00:30 Temperature Pulse Rate 91 H 92 H Respiratory Rate 14 Blood Pressure 122/55 L Pulse Oximetry 96 94 L 94 L 02/04/18 00:45 02/04/18 01:00 02/04/18 01:15 Temperature Pulse Rate 93 H 92 H 91 H Respiratory Rate Blood Pressure Pulse Oximetry 95 94 L 95 02/04/18 01:30 02/04/18 01:45 02/04/18 02:00 Temperature Pulse Rate 96 H 94 H 87 Respiratory Rate Blood Pressure Pulse Oximetry 95 95 02/04/18 02:15 02/04/18 02:30 02/04/18 02:45 Temperature Pulse Rate 87 86 87 Respiratory Rate Blood Pressure Pulse Oximetry 95 94 L 93 L 02/04/18 03:00 02/04/18 03:15 02/04/18 03:30 Temperature Pulse Rate 87 90 85 Respiratory Rate Blood Pressure Pulse Oximetry 95 95 96 02/04/18 03:45 02/04/18 04:00 02/04/18 04:07 Temperature 98.1 F Pulse Rate 86 87 89 Respiratory Rate 17 Blood Pressure 149/70 H Pulse Oximetry 94 L 95 95 02/04/18 04:15 02/04/18 04:30 02/04/18 04:45 Temperature Pulse Rate 86 96 H 92 H Respiratory Rate Blood Pressure Pulse Oximetry 95 95 95 02/04/18 05:00 02/04/18 05:15 02/04/18 05:30 Temperature Pulse Rate 93 H 93 H 94 H Respiratory Rate Blood Pressure Pulse Oximetry 95 92 L 94 L 02/04/18 05:45 02/04/18 06:00 02/04/18 06:15 Temperature Pulse Rate 93 H 99 H 94 H Respiratory Rate Blood Pressure Pulse Oximetry 95 94 L 93 L 02/04/18 06:30 02/04/18 06:45 02/04/18 07:00 Temperature Pulse Rate 96 H 95 H 95 H Respiratory Rate 14 Blood Pressure Pulse Oximetry 94 L 95 94 L 02/04/18 07:15 02/04/18 07:30 02/04/18 07:45 Temperature Pulse Rate 88 90 90 Respiratory Rate Blood Pressure Pulse Oximetry 94 L 94 L 94 L 02/04/18 08:00 02/04/18 08:15 02/04/18 08:30 Temperature 100 F H Pulse Rate 94 H 93 H 93 H Respiratory Rate 14 Blood Pressure Pulse Oximetry 94 L 94 L 93 L 02/04/18 08:45 02/04/18 08:53 02/04/18 09:00 Temperature Pulse Rate 90 84 85 Respiratory Rate 16 17 Blood Pressure Pulse Oximetry 95 97 95 02/04/18 09:15 02/04/18 09:30 02/04/18 09:45 Temperature Pulse Rate 86 96 H 92 H Respiratory Rate Blood Pressure Pulse Oximetry 96 96 96 02/04/18 10:00 02/04/18 10:15 02/04/18 10:30 Temperature Pulse Rate 94 H 94 H 96 H Respiratory Rate 27 H 27 H Blood Pressure Pulse Oximetry 96 95 96 02/04/18 10:45 02/04/18 11:00 02/04/18 11:15 Temperature Pulse Rate 96 H 93 H 90 Respiratory Rate 17 Blood Pressure Pulse Oximetry 95 96 96 02/04/18 12:00 02/04/18 12:30 02/04/18 12:45 Temperature 101.3 F H Pulse Rate 101 H 100 H 93 H Respiratory Rate 21 Blood Pressure Pulse Oximetry 89 L 96 96 02/04/18 13:00 02/04/18 13:15 02/04/18 13:30 Temperature Pulse Rate 94 H 92 H 90 Respiratory Rate 16 Blood Pressure Pulse Oximetry 96 96 95 02/04/18 13:45 02/04/18 14:00 02/04/18 14:15 Temperature Pulse Rate 89 88 91 H Respiratory Rate 14 Blood Pressure Pulse Oximetry 95 95 96 02/04/18 14:30 Temperature Pulse Rate 87 Respiratory Rate Blood Pressure Pulse Oximetry 96 Intake & Output 02/03/18 02/04/18 02/04/18 18:59 06:59 18:59 Intake Total 1021 / 1021 1315 / 1315 100 / 100 Output Total 1220 / 1220 1360 / 1360 Balance -199 / -199 -45 / -45 100 / 100 Weight 78 kg Intake: IV 200 / 200 700 / 700 100 / 100 Lasix Inj 100 MG In NS Inj 90 100 / 100 100 / 100 ML @ 10 mls/hr IV.CONT .Q10H [facility] Rx#:[id number] Flexbumin 25% Inj 100 ML @ 60 200 / 200 mls/hr IV.SIG Q12H [facility] Rx#: [id number] Azactam Inj 2 GM In NS Inj 100 200 / 200 ML @ 200 mls/hr IV.SIG Q6H [facility] Rx#:[id number] Teflaro Inj 300 MG In NS Inj 200 / 200 100 ML @ 100 mls/hr IV.SIG Q12H [facility] Rx#:[id number] Cubicin Inj 800 MG In NS Inj 100 / 100 100 ML @ 200 mls/hr IV.SIG Q48H [facility] Rx#:[id number] Mycamine Inj 150 MG In NS Inj 100 / 100 100 ML @ 100 mls/hr IV.SIG Q24H [facility] Rx#:[id number] Tube Feeding 821 / 821 515 / 515 Tube Irrigant 100 / 100 Output: Urine Amount (Catheter) 1100 / 1100 1350 / 1350 Indwelling Urethral Catheter 1100 / 1100 1350 / 1350 Chest Tube Drainage 120 / 120 10 / 10 Right 120 / 120 10 / 10 Other: Date of Last Bowel Movement 01/29/18 02/04/18 02/04/18 # Bowel Movements 1 # Incontinent Bowel Movements 1 Narrative: GENERAL: Intubated patient. SKIN: Warm and dry. HEAD: Normocephalic. EYES: No scleral icterus. No injection or drainage. NECK: Supple, intubated CARDIOVASCULAR: Regular rate and rhythm without murmurs, gallops, or rubs. RESPIRATORY: Breath sounds equal bilaterally. No accessory muscle use. GASTROINTESTINAL: Abdomen soft, non-tender, nondistended. EXTREMITIES: 2+ edema NEUROLOGICAL: On ventilator - Urinary Catheter Management Condom Cath placed during this visit: no Indwelling Urethral Catheter Cath placed during this visit: yes Reason for continuing: Hourly intake/output Insertion date: 01/20/18 Insertion time: 11:30 Assessment and Plan - Assessment (1) Acute renal failure Code(s): N17.9 - Acute kidney failure, unspecified Status: Acute (2) Atrial fibrillation Code(s): I48.91 - Unspecified atrial fibrillation Status: Acute Qualifiers: Atrial fibrillation type: unspecified Qualified Code(s): I48.91 - Unspecified atrial fibrillation (3) Sepsis Code(s): A41.9 - Sepsis, unspecified organism Status: Acute Qualifiers: Sepsis type: methicillin resistant Staphylococcus aureus Qualified Code(s) : A41.02 - Sepsis due to Methicillin resistant Staphylococcus aureus - Plan Patient received Lasix two-point L of urine output yesterday and today dropped to 450 cc Patient creatinine is 2.2 Cultures followed, fever improved Antibiotic coverage daptomycin and ceftaroline/ MRSA infection bilateral shoulder Patient is on the ventilator status post right chest tube Creatinine elevated 2.2 difficult for him to wean off from the ventilator On Lasix drip this is cut back to 5 mg Per hour due to elevation in the creatinine On albumin 25 g every 12 hours
[2018-02-04] MEDS: hydrALAZINE HCl Inj 20 MG/ML Vial IV.PUSH PRN (17:03)
[2018-02-04 17:08] LABS: Amorphous Sediment,Urine Few /hpf; Bilirubin,Urine Negative (Negative); Glucose,Urine (UA) Negative (Negative); Leukocyte Esterase,Urine Negative (Negative); Mucus,Urine Few /lpf (Occasional); Nitrite,Urine Negative (Negative); Specific Gravity,Urine 1.009 (1.002-1.035); Squamous Epithelial Cell,Urine 2 /hpf (0-5)
[2018-02-04 17:09] LABS: Clarity,Urine Slight (Clear); Color,Urine Yellow (Yellw/Straw)
--- NOTE | 2018-02-04 18:36 | P.PNADD ---
Addendum to Inpatient Note Additional information: pt was seen around 1800 poonam RN poonam Crawley dw family @ b/s On going fevers today + diarrhea Not much secretions MS change full note to follow PLAN BC sptum stool for c.dif procalcitonine MR head if more MS change will consider scans if cont to have fever and w/u remains negative will start broad spectrum abx
[2018-02-04] MEDS: Potassium Bicarbonate 25 MEQ Effervescent Tablet PO SCH (20:00)
[2018-02-04] MEDS: Melatonin 5 MG Tablet PO SCH (20:00)
[2018-02-04] MEDS: Micafungin Inj 150 MG in Sodium Chlor 0.9% Inj 100 ML IV.SIG SCH (22:19)
--- NOTE | 2018-02-04 23:13 | P.PNID ---
Subjective Remarks: On vent, 50 % FiO2 and PEEP 8 minimal secretons sputum non purulent and with nl resp cecilia +high grade fever He is on low dose of levaphed worsening renal function and worsening edema remains very lethargic today Antibiotics: v teflaro daptomycin Lines: Line sites with no e.o infection Past Medical History: reviewed Allergies/Adverse Reactions: Allergies amoxicillin Allergy (Severe, Verified 01/13/18 20:44) Hives Objective Vital Signs 02/03/18 23:15 02/03/18 23:30 02/03/18 23:45 Temperature Pulse Rate 92 H 89 95 H Respiratory Rate Blood Pressure Pulse Oximetry 98 96 96 02/04/18 00:00 02/04/18 00:15 02/04/18 00:20 Temperature 98.5 F Pulse Rate 94 H 91 H Respiratory Rate 14 Blood Pressure Pulse Oximetry 97 96 94 L 02/04/18 00:30 02/04/18 00:45 02/04/18 01:00 Temperature Pulse Rate 92 H 93 H 92 H Respiratory Rate Blood Pressure 122/55 L Pulse Oximetry 94 L 95 94 L 02/04/18 01:15 02/04/18 01:30 02/04/18 01:45 Temperature Pulse Rate 91 H 96 H 94 H Respiratory Rate Blood Pressure Pulse Oximetry 95 95 02/04/18 02:00 02/04/18 02:15 02/04/18 02:30 Temperature Pulse Rate 87 87 86 Respiratory Rate Blood Pressure Pulse Oximetry 95 95 94 L 02/04/18 02:45 02/04/18 03:00 02/04/18 03:15 Temperature Pulse Rate 87 87 90 Respiratory Rate Blood Pressure Pulse Oximetry 93 L 95 95 02/04/18 03:30 02/04/18 03:45 02/04/18 04:00 Temperature 98.1 F Pulse Rate 85 86 87 Respiratory Rate Blood Pressure 149/70 H Pulse Oximetry 96 94 L 95 02/04/18 04:07 02/04/18 04:15 02/04/18 04:30 Temperature Pulse Rate 89 86 96 H Respiratory Rate 17 Blood Pressure Pulse Oximetry 95 95 95 02/04/18 04:45 02/04/18 05:00 02/04/18 05:15 Temperature Pulse Rate 92 H 93 H 93 H Respiratory Rate Blood Pressure Pulse Oximetry 95 95 92 L 02/04/18 05:30 02/04/18 05:45 02/04/18 06:00 Temperature Pulse Rate 94 H 93 H 99 H Respiratory Rate Blood Pressure Pulse Oximetry 94 L 95 94 L 02/04/18 06:15 02/04/18 06:30 02/04/18 06:45 Temperature Pulse Rate 94 H 96 H 95 H Respiratory Rate Blood Pressure Pulse Oximetry 93 L 94 L 95 02/04/18 07:00 02/04/18 07:15 02/04/18 07:30 Temperature Pulse Rate 95 H 88 90 Respiratory Rate 14 Blood Pressure Pulse Oximetry 94 L 94 L 94 L 02/04/18 07:45 02/04/18 08:00 02/04/18 08:15 Temperature 100 F H Pulse Rate 90 94 H 93 H Respiratory Rate 14 Blood Pressure Pulse Oximetry 94 L 94 L 94 L 02/04/18 08:30 02/04/18 08:45 02/04/18 08:53 Temperature Pulse Rate 93 H 90 84 Respiratory Rate 16 Blood Pressure Pulse Oximetry 93 L 95 97 02/04/18 09:00 02/04/18 09:15 02/04/18 09:30 Temperature Pulse Rate 85 86 96 H Respiratory Rate 17 Blood Pressure Pulse Oximetry 95 96 96 02/04/18 09:45 02/04/18 10:00 02/04/18 10:15 Temperature Pulse Rate 92 H 94 H 94 H Respiratory Rate 27 H Blood Pressure Pulse Oximetry 96 96 95 02/04/18 10:30 02/04/18 10:45 02/04/18 11:00 Temperature Pulse Rate 96 H 96 H 93 H Respiratory Rate 27 H 17 Blood Pressure Pulse Oximetry 96 95 96 02/04/18 11:15 02/04/18 12:00 02/04/18 12:30 Temperature 101.3 F H Pulse Rate 90 101 H 100 H Respiratory Rate 21 Blood Pressure Pulse Oximetry 96 89 L 96 02/04/18 12:45 02/04/18 13:00 02/04/18 13:15 Temperature Pulse Rate 93 H 94 H 92 H Respiratory Rate 16 Blood Pressure Pulse Oximetry 96 96 96 02/04/18 13:30 02/04/18 13:45 02/04/18 14:00 Temperature Pulse Rate 90 89 88 Respiratory Rate 14 Blood Pressure Pulse Oximetry 95 95 95 02/04/18 14:15 02/04/18 14:30 02/04/18 14:45 Temperature Pulse Rate 91 H 87 87 Respiratory Rate Blood Pressure Pulse Oximetry 96 96 96 02/04/18 15:00 02/04/18 15:15 02/04/18 15:30 Temperature Pulse Rate 91 H 85 81 Respiratory Rate Blood Pressure Pulse Oximetry 97 96 96 02/04/18 15:45 02/04/18 16:00 02/04/18 16:15 Temperature 100.7 F H Pulse Rate 85 82 82 Respiratory Rate 17 Blood Pressure Pulse Oximetry 96 86 L 95 02/04/18 16:16 02/04/18 16:18 02/04/18 16:30 Temperature Pulse Rate 88 88 Respiratory Rate 15 14 Blood Pressure 148/68 H Pulse Oximetry 95 93 L 02/04/18 16:45 02/04/18 17:00 02/04/18 17:15 Temperature Pulse Rate 97 H 99 H 103 H Respiratory Rate Blood Pressure 170/66 H Pulse Oximetry 95 95 95 02/04/18 17:30 02/04/18 18:00 02/04/18 18:35 Temperature 101.6 F H Pulse Rate 105 H 121 H 115 H Respiratory Rate 20 Blood Pressure 108/75 120/67 Pulse Oximetry 95 94 L 95 02/04/18 18:45 02/04/18 19:00 02/04/18 19:12 Temperature Pulse Rate 113 H 102 H 102 H Respiratory Rate Blood Pressure 89/53 L Pulse Oximetry 95 96 96 02/04/18 19:15 02/04/18 19:20 02/04/18 19:22 Temperature Pulse Rate 98 H 93 H 92 H Respiratory Rate Blood Pressure 83/53 L 77/53 L 101/59 L Pulse Oximetry 96 96 96 02/04/18 19:30 02/04/18 19:45 02/04/18 19:59 Temperature Pulse Rate 103 H 103 H 105 H Respiratory Rate 15 Blood Pressure 95/55 L 106/54 L Pulse Oximetry 97 96 96 02/04/18 20:00 02/04/18 20:15 02/04/18 20:30 Temperature 99.5 F Pulse Rate 107 H 103 H 101 H Respiratory Rate Blood Pressure 126/57 L 132/61 139/65 Pulse Oximetry 96 97 97 02/04/18 20:45 02/04/18 21:00 Temperature Pulse Rate 97 H 96 H Respiratory Rate Blood Pressure 146/74 H 128/64 Pulse Oximetry 97 98 Intake & Output 02/04/18 02/04/18 02/05/18 06:59 18:59 06:59 Intake Total 1315 / 1315 1293 / 1293 100 / 100 Output Total 1360 / 1360 1680 / 1680 Balance -45 / -45 -387 / -387 100 / 100 Weight 78 kg Intake: IV 700 / 700 400 / 400 100 / 100 Lasix Inj 100 MG In NS Inj 90 100 / 100 100 / 100 ML @ 10 mls/hr IV.CONT .Q10H [facility] Rx#:[id number] Flexbumin 25% Inj 100 ML @ 60 200 / 200 100 / 100 mls/hr IV.SIG Q12H [facility] Rx#: [id number] Azactam Inj 1,000 MG In NS Inj 100 / 100 100 ML @ 200 mls/hr IV.SIG Q6H [facility] Rx#:[id number] Teflaro Inj 300 MG In NS Inj 200 / 200 100 / 100 100 ML @ 100 mls/hr IV.SIG Q12H [facility] Rx#:[id number] Cubicin Inj 800 MG In NS Inj 100 / 100 100 ML @ 200 mls/hr IV.SIG Q48H [facility] Rx#:[id number] Mycamine Inj 150 MG In NS Inj 100 / 100 100 ML @ 100 mls/hr IV.SIG Q24H [facility] Rx#:[id number] KCl 40 mEq Premix Inj 40 meq In 100 / 100 100 ml @ 25 mls/hr IV.SIG ONCE ONE Rx#:[id number] Tube Feeding 515 / 515 773 / 773 Tube Irrigant 100 / 100 Water Bolus Amount 120 / 120 Output: Urine Amount (Catheter) 1350 / 1350 1650 / 1650 Indwelling Urethral Catheter 1350 / 1350 1650 / 1650 Gastric Drainage 0 / 0 Left Nare Nasogastric Tube 0 / 0 Chest Tube Drainage 30 / 30 Right Other: Date of Last Bowel Movement 02/04/18 02/04/18 02/04/18 # Bowel Movements 2 # Incontinent Bowel Movements 1 02/04/18 15:24 Sputum - Endotracheal Gram Stain - Final 02/04/18 15:24 Sputum - Endotracheal Sputum Culture - Pending 02/03/18 12:50 Blood - Peripheral Aerobic Blood Culture - Preliminary No growth in 1 day 02/03/18 12:50 Blood - Peripheral Anaerobic Blood Culture - Preliminary No growth in 1 day 02/03/18 12:56 Blood - Peripheral Aerobic Blood Culture - Preliminary No growth in 1 day 02/03/18 12:56 Blood - Peripheral Anaerobic Blood Culture - Preliminary No growth in 1 day 01/31/18 11:16 Blood - Peripheral Aerobic Blood Culture - Preliminary No growth in 4 days 01/31/18 11:16 Blood - Peripheral Anaerobic Blood Culture - Preliminary No growth in 4 days 01/31/18 11:10 Blood - Peripheral Aerobic Blood Culture - Preliminary No growth in 4 days 01/31/18 11:10 Blood - Peripheral Anaerobic Blood Culture - Preliminary No growth in 4 days 01/17/18 18:56 Fluid - Other Fungal Smear - Final No fungal elements seen 01/17/18 18:56 Fluid - Other Fungal Culture - Preliminary No growth in 2 weeks 01/30/18 15:00 Fluid - Pleural fluid Gram Stain - Final 01/30/18 15:00 Fluid - Pleural fluid Body Fluid Culture - Final No growth in 72 hours (aerobically and anaerobically ) 01/31/18 13:15 Catheterized Urine Urine Culture - Final No growth in 48 hours Lab - Hematology Results 02/03/18 02/04/18 04:51 05:45 WBC 8.4 8.1 RBC 2.89 L 2.78 L Hgb 8.0 L 7.6 L Hct 23.2 L 22.7 L MCV 80.3 81.6 MCH 27.5 27.5 MCHC 34.2 33.6 RDW 20.4 H 20.6 H Plt Count 193 215 MPV 9.4 9.6 Prelim Diff (Auto) Slide review pending Slide review pending Neut % (Auto) 87.6 H 86.5 H Lymph % (Auto) 8.4 L 8.7 L [place] % (Auto) 2.8 2.3 Eos % (Auto) 1.1 2.2 Baso % (Auto) 0.1 0.3 Neut # (Auto) 7.3 7.0 Lymph # (Auto) 0.7 L 0.7 L [place] # (Auto) 0.2 0.2 Eos # (Auto) 0.1 0.2 Baso # (Auto) 0.0 0.0 WBC Differential Manual diff final Manual diff final Seg Neuts % (Manual) 72 H 64 Band Neuts % (Manual) 19 H 25 H Lymphocytes % (Manual) 6 L 6 L Monocytes % (Manual) 2 1 Eosinophils % (Manual) 1 3 Metamyelocytes % (Man) 1 Abs Neuts (Manual) 7.6 7.3 Differential Comment . . Toxic Granulation 1+ H Platelet Estimate Normal Normal Platelet Morphology Enlarged H Enlarged H Tear Drop Cells 1+ H Ovalocytes 1+ H 1+ H Acanthocytes (Spur) Occ H Occ H Keratocytes Occ H Occ H Lab - Chemistry Results 02/03/18 02/04/18 02/04/18 04:51 05:45 19:35 Sodium 139 139 Potassium 3.6 3.0 L Chloride 106 104 Carbon Dioxide 22.5 21.3 Anion Gap 11 14 BUN 59 H 63 H Creatinine 2.16 H 2.26 H Estimated GFR 30 L 28 L Random Glucose 154 H 176 H Calcium 8.3 L 8.1 L Magnesium 2.3 2.2 Total Bilirubin 1.9 H 2.2 H AST 9 L 12 L ALT 10 L 15 Alkaline Phosphatase 377 H 382 H Total Creatine Kinase 9 L Total Protein 5.7 L 5.6 L Albumin 2.6 L 2.6 L Imaging: ITS Impressions Abdomen/Pelvis CT 01/13/18 20:43 CONCLUSION: 1. Marked prostate enlargement. 2. Air-filled distention of sigmoid colon. 3. Cardiomegaly. Small bilateral pleural effusions. 4. Diffuse atherosclerotic disease and arterial calcification. 5. Old insufficiency type fractures of the left side of the sacrum and left- sided pubic rami. Cervical Spine MRI 01/14/18 00:00 CONCLUSION: 1. Examination is degraded by motion artifact. 2. Partial visualization of a mass involving the left supraclavicular region measuring 5.[address] scan of the soft tissues of the neck with IV contrast to further assess if the patient can't hold still for that exam. 3. Diffuse degenerative changes as detailed at each level in the above discussion. Head MRI 01/14/18 00:00 CONCLUSION: 1. No acute intracranial abnormality. 2. Encephalomalacia involving the left frontal lobe. Thoracic Spine MRI 01/14/18 00:00 CONCLUSION: 1. See the MRI of the cervical spine reported separately. 2. Orthopedic hardware at the thoracolumbar junction. 3. Patent central canal throughout. Soft Tissue Neck CT 01/16/18 00:00 CONCLUSION: 1. Partially visualized fluid and gas collection deep to the left trapezius muscle in the posterior lower neck extending into the posterior thorax. Chest CT with contrast could be performed to image the remainder of the abnormality. Differential diagnosis includes abscess and hematoma. 2. Degenerative findings of the cervical spine. Abscess Drainage CT 01/17/18 00:00 CONCLUSION: 1. Uncomplicated CT guided drainage, as above. WBC Scan Nuclear Medicine 01/18/18 00:00 CONCLUSION: 1. Multiple areas of abnormal uptake including at the upper lumbar spine around the upper left surgical hardware and at the L1-2 disc level. 2. Abnormal activity around the clip joints bilaterally being more prominent on the right. 3. Abnormal activity in the right C2-3 facet and the left C7-T1 facet. 4. Small area of signal abnormality in the posterior right sacroiliac joint region separate from surgical hardware. 5. All these areas are concerning for active infection. Shoulder X-Ray 01/21/18 00:00 CONCLUSION: Unusual positioning of the shoulder but I do not see any obvious displaced fracture of the shoulder. There is a healing third rib fracture and healing seventh rib fracture. Upper Extremity Ultrasound 01/22/18 00:00 CONCLUSION: 1. Lateral right shoulder subcutaneous complex fluid collection concerning for abscess. This is amenable to percutaneous drainage. Abscess Drainage Ultrasound 01/23/18 00:00 CONCLUSION: 1. Uncomplicated ultrasound-guided drainage catheter placement in complex inferolateral right shoulder fluid collection. Lumbar Spine MRI 01/23/18 00:00 CONCLUSION: Little or no change from previous exam. Nothing to suggest abscess Pelvis MRI 01/23/18 00:00 CONCLUSION: 1. Diffuse skin thickening and subcutaneous edema suggestive of cellulitis involving the left buttock without underlying abscess formation. 2. Rectosigmoid colon is distended with fecal debris suggestive of fecal impaction. Clinical correlation is recommended. 3. Markedly enlarged prostate. 4. Degenerative changes and scoliosis of the visualized lower lumbar spine are noted. 5. Bony changes involving the left sacrum likely representing old healed insufficiency fractures. Shoulder MRI 01/23/18 00:00 CONCLUSION: 1. Chronic complete rotator cuff tear. 2. Moderate joint fluid Abscess Drainage 01/24/18 15:37 CONCLUSION: 1. Uncomplicated percutaneous placement of drainage catheter in left shoulder. Chest CT 01/29/18 15:28 CONCLUSION: 1. Interval increase in the amount of pleural effusions bilaterally. Findings have been discussed with Dr. Tom on today's date. Thoracentesis CT 01/30/18 00:00 CONCLUSION: 1. Uncomplicated CT-guided right-sided chest tube placement. Venous Doppler Study 02/02/18 00:00 CONCLUSION: The study is negative for bilateral lower extremity deep venous thrombosis. Head CT 02/03/18 00:00 CONCLUSION: 1. Left maxillary mucosal thickening. 2. Atrophy and left frontal encephalomalacia again noted. . Chest X-Ray 02/04/18 06:00 CONCLUSION: Decreased lung volumes with mild new hazy bilateral lung opacity. Physical Exam: GENERAL: on vent SKIN: Warm and dry. No rash HEAD: Atraumatic. Normocephalic. EYES: Pupils equal and round. No scleral icterus. No injection or drainage. ENT: No nasal bleeding or discharge. Mucous membranes pink and moist. NECK: Trachea midline. No JVD. No palpable masses, but diffuse pain CARDIOVASCULAR: Regular rate and rhythm. nO murmurs RESPIRATORY: No accessory muscle use. R sided CT in place clear serous fluid GASTROINTESTINAL: Abdomen soft, non-tender, mildly distended. Hepatic and splenic margins not palpable. MUSCULOSKELETAL: Extremities without clubbing, cyanosis, + increasing soft pitting edema. No obvious deformities. b/l shoulders with dressing on place : [place] in, clear yellow urine NEUROLOGICAL: very lethargic not interqacting today PSYCHIATRIC: unable to assess Assessment and Plan - Plan High grade staph bacteremia. MRSA 2 D echo neg R shoulder effusion , cw R shoulder septic arhtritis (MRSA)-post I&D. . 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 source Recs: cont daptomycin, teflaro BC sptum stool for c.dif procalcitonine MR head if more MS change will consider scans if cont to have fever and w/u remains negative will start broad spectrum abx (will add azactam, micafungin) poonam levin family @ b/s
[2018-02-05] MEDS: Oral Hygiene Kit OROPHARYNG SCH ×4 (00:04→15:48)
[2018-02-05] MEDS: Albumin Human 25% Inj 100 ML IV.SIG SCH ×2 (02:00→14:14)
[2018-02-05] MEDS: Furosemide Inj 100 MG in Sodium Chlor 0.9% Inj 90 ML IV.CONT SCH ×2 (02:01→11:00)
[2018-02-05] MEDS: Ceftaroline Inj 300 MG in Sodium Chlor 0.9% Inj 100 ML IV.SIG SCH ×2 (02:54→15:37)
[2018-02-05] MEDS: Levothyroxine 100 MCG Tablet PO SCH (05:26)
[2018-02-05 05:52] LABS: Baso % (Auto) 0.3 % (0.0-2.0); Eos # (Auto) 0.2 th/mm3 (0.0-0.4); Eos % (Auto) 2.9 % (0.0-4.0); Hemoglobin 7.5 gm/dL (13.0-17.0); Lymph # (Auto) 0.6 th/mm3 (1.0-4.8); Lymph % (Auto) 8.5 % (9.0-44.0); Mean Corpuscular HGB Conc 34.1 % (32.0-36.0); Mean Corpuscular Hemoglobin 27.7 pg (27.0-34.0); Mean Platelet Volume 9.4 fL (7.0-11.0); Mono # (Auto) 0.3 th/mm3 (0.0-0.9); Mono % (Auto) 3.8 % (0.0-8.0); Neut # (Auto) 6.3 th/mm3 (1.8-7.7); Neut % (Auto) 84.5 % (16.0-70.0); Platelet Count 225 th/mm3 (150-450); Red Blood Count 2.71 mil/mm3 (4.50-5.90); Red Cell Distribution Width 20.6 % (11.6-17.2); White Blood Count 7.5 th/mm3 (4.0-11.0)
[2018-02-05 06:22] LABS: Albumin 2.7 g/dL (3.4-5.0); Anion Gap 11 meq/L (5-15); Blood Urea Nitrogen 69 mg/dL (7-18); Calcium 8.7 mg/dL (8.5-10.1); Carbon Dioxide 23.3 meq/L (21.0-32.0); Chloride 105 meq/L (98-107); Glomerular Filtration Rate 28 mL/min (>89); Glucose,Random 141 mg/dL (74-106); Potassium 3.5 meq/L (3.5-5.1); Sodium 139 meq/L (136-145)
[2018-02-05 06:28] LABS: Alanine Aminotransferase 18 U/L (12-78); Alkaline Phosphatase 466 U/L (45-117); Aspartate Aminotransferase 18 U/L (15-37); Total Protein 5.7 g/dL (6.4-8.2)
--- NOTE | 2018-02-05 08:20 | P.PNCC ---
Subjective Subjective Remarks/Hospital Course: This 82-year-old gentleman was transferred emergently from the floor to the surgical intensive care unit because of rapid onset combined hypoxemic and hypercapnic respiratory failure. On arrival he has diffuse crackles throughout both lung santizo and his neck veins are distended. On admission several days ago he was dehydrated and had an element of acute kidney injury. His weight is up about 5 kg since admission though his renal function has improved. On arrival he is breathing 40 times a minute on a nonrebreathing mask with pH of 7.18 and P CO2 of 74. His acidosis is purely respiratory and associated with bronchospasm from fluid overload. B natruretic peptide is elevated to greater than 2000. Other pertinent major problems include septic joint drainage and treatment. 01/22: Critical care reconsulted for worsening resp status. On BIPAP with fulkl face mask. CXR with bilat infiltrates/ pulm edema. Reaccumulated rt shoulder collection. After d/w family proceeded with intubation and placed patient on [facility] ventilation. Placed central line. D/W Dr. Mani Sherman who is arranging US guided drainage/ drain placement for shoulder collection. 01/23: Remains sedated, orally intubated on mechanical ventilation. Significant diuresis with 11 L negative over the last 3 days. Awaiting left shoulder percutaneous drainage of collection by interventional radiology today. 1 unit PRBCs ordered as patient has borderline blood pressures with hemoglobin less than 8. 01/24: Sedated, arousable, orally intubated on mechanical ventilation. Tolerating tube feeds. s/p [id number] drain placement in rt shoulder fluid collection on 01/23. 01/25: He had a good trial on spontaneous breathing yesterday. Mechanical ventilation overnight. Started on spontaneous breathing trial this morning at 12/5 and volumes were small. Increased to 15/8 and volumes looked better with each breath. Still producing lots of thick secretions, dark yellow. Unable to extubate due to general weakness and inability to cough numerous secretions. FiO2 reduced to 40% and gas exchange good. Clearly improved respiratory function from yesterday. Tolerating tube feeds well, gastric residuals minimal , remains constipated and will start on milk of magnesia and. 01/26: Right lower lobe nicely reexpanded after 24 hours on APRV. FI02 reduced to 30%. More alert today, will attempt to extubate. Worsening azotemia appears to be prerenal. We will need to give some volume back. General strength and alertness has improved. 01/27: On BiPAP since last evening. Appears comfortable with 100% O2 sat. Awake and alert. On tube feeds via NG tube 01/28: Resting comfortably, On BIPAP overnight. Tolerating facemask during day prn. Tolerating tube feeds. Hgb 7.1 today, 1 unit PRBCs ordered. 01/29: Was on nasal cannula all day. Last night developed worsening respiratory status and tachypnea for which he was placed on BiPAP. Remains on BiPAP this morning and appears comfortable. Chest x-ray this morning shows haziness over right lung field with probable pulmonary edema versus infiltrate. 01/30: Surgery yesterday for bilateral shoulder collections under general anesthesia, tolerated procedure well was subsequently transferred back to the ICU and kept orally intubated on mechanical ventilation overnight. CT chest done yesterday revealed bilateral pleural effusions right greater than left for which CT- guided thoracentesis with pigtail catheter placement being scheduled with IR. 01/31: Remains sedated, orally intubated on mechanical ventilation. Underwent right-sided pigtail catheter placement by IR yesterday with drainage of about 800 cc of pleural fluid. Tolerating tube feeds. Planning CPAP trials today. Evaluated by Dr. Macias from pulmonary yesterday 02/01: Remains sedated, orally intubated on mechanical ventilation. On Levophed 1.5 mics per minute. Blood pressure labile, currently 140s. Significant oral secretions however ET tube with minimal secretions overnight. Tolerating tube feeds. New left IJ central line placed on 01/31 and right IJ central line removed. 02/02: Remains intubated more awake currently on 2 mics of Levophed to maintain map above 65. Patient is able to follow commands even though weak. Urine output of approximately 1200 mL in 24 hours, chest tube output 50 mL. Family is at the bedside 02/03: No acute events reported overnight. Patient remains very lethargic and weak. Tolerated CPAP intermittently yesterday. Remains on IV Lasix to mobilize fluid. Urine output 1.5 L in 24 hours. Creatinine slightly increased to 2.16, however patient is grossly fluid positive. Will continue with diuresis. Son at the bedside updated today. Because of generalized weakness it is recommended patient get a tracheostomy for safe ventilator weaning and to facilitate aggressive physical therapy 02/04: Remains off sedation today. Slightly more awake weakly follows commands x4. He does respond to track more today. Remains quite weak though. Urine output improved with Lasix drip. 2.5 L output in 24 hours, however creatinine increased to 2.26. Nephrology following 02/05: On spontaneous breathing trial this morning with pressure support of 12 spontaneous tidal volumes are around 290 and he attempts to low rate results and tachypnea greater than 35/min and tidal volume less than 200. He has been extubated unsuccessfully several times and continues to fatigue during attempts to reduce pressure support. He remains alert and cooperative and well likely be weaned from mechanical ventilation eventually but at this point he really needs a tracheostomy so we can accomplish better mobilization and more realistic intermittent ventilatory support during his final stages of weaning. Family has agreed to go to [facility] for long-term ventilator weaning. Objective Vital Signs / I&O: Vital Signs 02/04/18 08:15 02/04/18 08:30 02/04/18 08:45 Temperature Pulse Rate 93 H 93 H 90 Respiratory Rate Blood Pressure Pulse Oximetry 94 L 93 L 95 02/04/18 08:53 02/04/18 09:00 02/04/18 09:15 Temperature Pulse Rate 84 85 86 Respiratory Rate 16 17 Blood Pressure Pulse Oximetry 97 95 96 02/04/18 09:30 02/04/18 09:45 02/04/18 10:00 Temperature Pulse Rate 96 H 92 H 94 H Respiratory Rate 27 H Blood Pressure Pulse Oximetry 96 96 96 02/04/18 10:15 02/04/18 10:30 02/04/18 10:45 Temperature Pulse Rate 94 H 96 H 96 H Respiratory Rate 27 H Blood Pressure Pulse Oximetry 95 96 95 02/04/18 11:00 02/04/18 11:15 02/04/18 12:00 Temperature 101.3 F H Pulse Rate 93 H 90 101 H Respiratory Rate 17 21 Blood Pressure Pulse Oximetry 96 96 89 L 02/04/18 12:30 02/04/18 12:45 02/04/18 13:00 Temperature Pulse Rate 100 H 93 H 94 H Respiratory Rate 16 Blood Pressure Pulse Oximetry 96 96 96 02/04/18 13:15 02/04/18 13:30 02/04/18 13:45 Temperature Pulse Rate 92 H 90 89 Respiratory Rate Blood Pressure Pulse Oximetry 96 95 95 02/04/18 14:00 02/04/18 14:15 02/04/18 14:30 Temperature Pulse Rate 88 91 H 87 Respiratory Rate 14 Blood Pressure Pulse Oximetry 95 96 96 02/04/18 14:45 02/04/18 15:00 02/04/18 15:15 Temperature Pulse Rate 87 91 H 85 Respiratory Rate Blood Pressure Pulse Oximetry 96 97 96 02/04/18 15:30 02/04/18 15:45 02/04/18 16:00 Temperature 100.7 F H Pulse Rate 81 85 82 Respiratory Rate 17 Blood Pressure Pulse Oximetry 96 96 86 L 02/04/18 16:15 02/04/18 16:16 02/04/18 16:18 Temperature Pulse Rate 82 88 Respiratory Rate 15 14 Blood Pressure Pulse Oximetry 95 95 02/04/18 16:30 02/04/18 16:45 02/04/18 17:00 Temperature Pulse Rate 88 97 H 99 H Respiratory Rate Blood Pressure 148/68 H 170/66 H Pulse Oximetry 93 L 95 95 02/04/18 17:15 02/04/18 17:30 02/04/18 18:00 Temperature 101.6 F H Pulse Rate 103 H 105 H 121 H Respiratory Rate 20 Blood Pressure 108/75 Pulse Oximetry 95 95 94 L 02/04/18 18:35 02/04/18 18:45 02/04/18 19:00 Temperature Pulse Rate 115 H 113 H 102 H Respiratory Rate Blood Pressure 120/67 Pulse Oximetry 95 95 96 02/04/18 19:12 02/04/18 19:15 02/04/18 19:20 Temperature Pulse Rate 102 H 98 H 93 H Respiratory Rate Blood Pressure 89/53 L 83/53 L 77/53 L Pulse Oximetry 96 96 96 02/04/18 19:22 02/04/18 19:30 02/04/18 19:45 Temperature Pulse Rate 92 H 103 H 103 H Respiratory Rate Blood Pressure 101/59 L 95/55 L 106/54 L Pulse Oximetry 96 97 96 02/04/18 19:59 02/04/18 20:00 02/04/18 20:15 Temperature 99.5 F Pulse Rate 105 H 107 H 103 H Respiratory Rate 15 Blood Pressure 126/57 L 132/61 Pulse Oximetry 96 96 97 02/04/18 20:30 02/04/18 20:45 02/04/18 21:00 Temperature Pulse Rate 101 H 97 H 96 H Respiratory Rate Blood Pressure 139/65 146/74 H 128/64 Pulse Oximetry 97 97 98 02/04/18 21:15 02/04/18 21:30 02/04/18 21:45 Temperature Pulse Rate 97 H 91 H 94 H Respiratory Rate Blood Pressure 124/58 L 122/60 133/61 Pulse Oximetry 95 98 98 02/04/18 22:00 02/04/18 22:15 02/04/18 22:30 Temperature Pulse Rate 92 H 94 H 92 H Respiratory Rate Blood Pressure 150/67 H 133/59 L 139/64 Pulse Oximetry 98 97 98 02/04/18 22:45 02/04/18 23:00 02/04/18 23:15 Temperature Pulse Rate 92 H 90 85 Respiratory Rate Blood Pressure 130/58 L 130/60 145/63 H Pulse Oximetry 97 97 97 02/04/18 23:30 02/04/18 23:39 02/04/18 23:45 Temperature Pulse Rate 88 87 Respiratory Rate 15 Blood Pressure 147/65 H 134/55 L Pulse Oximetry 95 97 96 02/05/18 00:00 02/05/18 00:12 02/05/18 00:15 Temperature 98.7 F 98.7 F Pulse Rate 89 82 82 Respiratory Rate Blood Pressure 119/57 L 99/55 L 91/54 L Pulse Oximetry 97 96 95 02/05/18 00:26 02/05/18 00:30 02/05/18 00:45 Temperature Pulse Rate 84 86 88 Respiratory Rate Blood Pressure 125/60 115/57 L 111/59 L Pulse Oximetry 97 96 96 02/05/18 01:00 02/05/18 01:15 02/05/18 01:30 Temperature Pulse Rate 85 88 87 Respiratory Rate Blood Pressure 119/60 127/63 136/61 Pulse Oximetry 96 97 95 02/05/18 01:45 02/05/18 02:00 02/05/18 02:15 Temperature Pulse Rate 84 85 88 Respiratory Rate Blood Pressure 130/63 137/65 129/63 Pulse Oximetry 96 96 96 02/05/18 02:30 02/05/18 02:45 02/05/18 03:00 Temperature Pulse Rate 86 90 88 Respiratory Rate Blood Pressure 136/64 146/66 H 144/68 H Pulse Oximetry 97 97 97 02/05/18 03:15 02/05/18 03:30 02/05/18 03:45 Temperature Pulse Rate 82 82 81 Respiratory Rate Blood Pressure 117/63 128/65 127/63 Pulse Oximetry 96 96 96 02/05/18 03:47 02/05/18 04:00 02/05/18 04:15 Temperature 98.3 F Pulse Rate 76 82 Respiratory Rate 18 Blood Pressure 120/59 L 141/63 H Pulse Oximetry 96 97 96 02/05/18 04:30 02/05/18 04:45 02/05/18 05:00 Temperature Pulse Rate 83 81 83 Respiratory Rate Blood Pressure 142/70 H 136/60 132/63 Pulse Oximetry 96 96 96 02/05/18 05:15 02/05/18 05:30 02/05/18 05:45 Temperature Pulse Rate 86 82 82 Respiratory Rate Blood Pressure 135/58 L 125/57 L Pulse Oximetry 93 L 94 L 95 02/05/18 06:00 02/05/18 06:15 02/05/18 06:30 Temperature Pulse Rate 78 75 80 Respiratory Rate Blood Pressure 110/55 L 104/50 L 101/57 L Pulse Oximetry 94 L 95 95 02/05/18 06:45 Temperature Pulse Rate 77 Respiratory Rate Blood Pressure 109/54 L Pulse Oximetry 95 Intake & Output 02/04/18 02/05/18 02/05/18 18:59 06:59 18:59 Intake Total 1293 / 1293 1186 / 1186 Output Total 1680 / 1680 1310 / 1310 Balance -387 / -387 -124 / -124 Weight 78.5 kg Intake: IV 400 / 400 500 / 500 Lasix Inj 100 MG In NS Inj 90 100 / 100 ML @ 10 mls/hr IV.CONT .Q10H [facility] Rx#:[id number] Flexbumin 25% Inj 100 ML @ 60 100 / 100 100 / 100 mls/hr IV.SIG Q12H [facility] Rx#: [id number] Azactam Inj 1,000 MG In NS Inj 200 / 200 100 ML @ 200 mls/hr IV.SIG Q6H [facility] Rx#:[id number] Teflaro Inj 300 MG In NS Inj 100 / 100 100 / 100 100 ML @ 100 mls/hr IV.SIG Q12H [facility] Rx#:[id number] Mycamine Inj 150 MG In NS Inj 100 / 100 100 ML @ 100 mls/hr IV.SIG Q24H [facility] Rx#:[id number] KCl 40 mEq Premix Inj 40 meq In 100 / 100 100 ml @ 25 mls/hr IV.SIG ONCE ONE Rx#:[id number] Tube Feeding 773 / 773 586 / 586 Tube Irrigant 100 / 100 Water Bolus Amount 120 / 120 Output: Urine Amount (Catheter) 1650 / 1650 1300 / 1300 Indwelling Urethral Catheter 1650 / 1650 1300 / 1300 Gastric Drainage 0 / 0 Left Nare Nasogastric Tube 0 / 0 Chest Tube Drainage 30 / 30 10 / 10 Right 30 / 30 10 / 10 Other: Date of Last Bowel Movement 02/04/18 02/05/18 # Bowel Movements 2 # Incontinent Bowel Movements 1 Result Diagrams: 02/05/18 05:35 02/05/18 05:35 Objective Remarks: General: Alert, interactive, on mechanical ventilation. Eyes are open, tracks HEENT: There is no icterus, oral intubated Neck : Supple Chest/pulm: Ventilated, air entry decreased bilaterally at bases, minimal scattered rhonchi, no wheezing. Right-sided pigtail catheter in place. CVS: S1S2, irregular rhythm. No JVD. Abd: Soft, nontender, bowel sounds present. No guarding or distention. Ext: Warm bilaterally. Dressing over bilateral shoulder surgical site clean dry and intact. ZOEY drains in place. Trace peripheral edema persists. Neuro: Arousable, tracking well today. Weakly follows commands x4. Generalized weakness persist. Grossly nonfocal exam. Assessment and Plan - Assessment and Plan Plan: Assessment and Plan: Acute combined hypercapnic and hypoxemic respiratory failure Fluid overload/noncardiogenic Pulmonary edema secondary to sepsis MRSA pneumonia Mucus plugging Critical illness myopathy -Continue bronchodilators -BNP elevated, diuresed to mobilize fluid. Continue Lasix infusion per nephrology -Scott required for BPH as well as diuresis, accurate hourly intake output -[facility] -Status post bronchoscopy with BAL on 01/22 with significant mucus plugging noted in the right-sided airways including right mainstem bronchus for which BAL was performed with significant clearing of airway. -Status post bronchoscopy 02/02/[address] Morales -right mainstem bronchus with some mucous plugs noted which was suctioned out. -Continue mechanical ventilation, vent bundle. Mucomyst to mobilize secretions. -Frequent suctioning required. Previously extubated 01/25. Required BiPAP on 01/29 and was intubated for bilateral shoulder surgery and remains on mechanical ventilation since 01/29 postoperatively. -CT chest with bilateral effusions. S/p CT-guided right-sided thoracentesis/ pigtail catheter placement with IR on 01/30. -Dr. Jacky Macias for pulmonary per family request. -Daily CPAP trials. Get patient up to stretcher chair while on the vent daily. PT OT daily -Patient has significant generalized weakness, continues to fail prolonged CPAP trials -The patient will benefit from tracheostomy to facilitate ventilator weaning and to facilitate aggressive physical therapy MRSA septicemia, septic right shoulder, L spine diskitis, left supraclavicular abscess Septic right shoulder, s/p I&D Urinary tract infection. 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 Tapering steroid Blood cultures positive for MRSA. 2D echocardiogram did not show any findings consistent with vegetations. Patient also had a right shoulder effusion, orthopedics aspirated the shoulder - approximately 30 cc of purulent fluid. Orthopedics performed surgery/drainage of bilateral shoulder collections on 01/29 Previously IR consulted s/p CT-guided drainage of left posterior supraclavicular /posterior chest wall abscess on 01/17/18. s/p US guided drainage of shoulder collection by IR done on 01/23 Continue IV antibiotics per infectious disease recommendations. NM WBC scan 01/18/18 and 01/19/18. Imaging discussed with radiology and it seems patient with multiple focal infections bilateral shoulders, also back at the hardware with diskitis/osteomyelitis. Neurology, ID, hem onc following KEKE on CKD. Getting diuresed, Strict I/O, monitor/ replete electrolytes, follow BUN/ Cr Nephrology following, appreciate recs. IV Lasix gtt per nephrology Significant fluid removal with diuresis but creatinine increased. Remains grossly fluid positive CVS Atrial Fibrillation, permanent Noncardiogenic pulmonary edema Hypotension Rate well controlled. Recent ECHO EF 65% Dr. Garner following-discussed with Dr. Garner on 01/22. We agreed with diuresing patient for noncardiogenic pulmonary edema while watching renal function/ BP. Remains on Levophed to maintain map above 65 Holding amlodipine and Lopressor in view of labile blood pressure requiring Levophed. Lasix 40 mg IV x1 dose ordered on 01/29 for positive fluid balance and worsening respiratory status, Lasix gtt 10 mg per hour started 02/03 Anemia Will keep hemoglobin above 8 g%. 1 unit PRBC given 02/02/2018 No overt evidence of blood loss. Follow CBC. Protein calorie malnutrition -Inserted NGT 01/22 following intubation, Continue tube feeds and advance to goal as well tolerated. Follow prealbumin. BPH - Continue Flomax. DVT prophylaxis per surgeon Access: RIJ central line placed 01/22 -discontinued on 01/31. New left IJ central line placed 01/31 01/22: D/w Dr. Mani Sherman, D/W BUSINESS DEPARTMENT CHAIR, D/W patient's family at bedside. 01/23 D/W patient's daughter at bedside regarding current clinical status and plan of care and they voiced understanding and were agreeable with plan of care. D/W ID-Dr Tom on 01/23 01/24: Discussed with patient's family at bedside regarding current clinical status and plan of care and they voiced understanding. Discussed with ID Dr. Tom, discussed with Dr. Piña. Discussed with BUSINESS DEPARTMENT CHAIR. 01/25: I spoke with patient's daughter at the bedside this morning. We discussed goals for ventilator weaning and nutrition. I spoke with extensive family members later in the day. 01/26: I spoke at length with the patient's daughter this morning and will speak extensively with other family members later today. 01/27: I spoke with patient's family member at bedside regarding his respiratory status and plan of care and he voiced understanding. Will come back and update other family members later. 01/28: I updated family regarding plan of care. 01/29: Update multiple family members regarding clinical status including borderline respiratory status requiring BiPAP. Patient scheduled for surgery which was also discussed. I explained that patient will probably remain on mechanical ventilation postoperatively until improvement in respiratory status. 01/30: Treated patient's family regarding current clinical status including plan of care. Discussed need for thoracentesis and pigtail catheter placement for right effusion and possible need for bronchoscopy/BAL. They voiced understanding and were agreeable with plan of care. Discussed with Dr. Tom , discussed with Dr. Jacky Macias from pulmonary who was consulted as well for further evaluation of respiratory failure. 01/31: Discussed with patient's daughter/multiple family members at bedside regarding current clinical status and plan of care and they voiced understanding and was agreeable. Discussed with JARETT Tom 02/01: Discussed with patient son at bedside regarding current clinical status and plan of care and he voiced understanding and was agreeable. 02/02: Updated family members at the bedside 02/03 Updated son at bedside 02/04 updated family at the bedside 02/05: Lengthy discussion with daughter this morning concerning the process of long-term ventilator weaning. They wish to proceed with tracheostomy and PEG placement with hopes of [facility]
--- NOTE | 2018-02-05 08:30 | P.PNNEU ---
Subjective Subjective Comments: No acute events Active Medications: Active Medications Acetaminophen (Tylenol) 650 mg PO Q4H PRN PRN Reason: Temp > 100.4 Last Admin: 01/31/18 16:32 Dose: 650 mg Acetaminophen (Tylenol Liq) 650 mg PO Q6HR [facility] Last Admin: 02/05/18 05:26 Dose: 650 mg Hydrocodone Bitart/Acetaminophen ([place] 5/325) 1 tab PO Q4H PRN PRN Reason: PAIN LESS THAN 5 ON SCALE Last Admin: 02/01/18 21:06 Dose: 1 tab Hydrocodone Bitart/Acetaminophen ([place] 5/325) 2 tab PO Q6H PRN PRN Reason: PAIN SCALE 5 TO 10 Last Admin: 02/01/18 09:05 Dose: 2 tab Al Hydroxide/Mg Hydroxide (Milk Of Magnjayson Liq) 30 ml PO Q12H PRN PRN Reason: CONSTIPATION Albuterol (Duoneb Neb (Prn)) 1 ampul NEB Q2HR NEB PRN PRN Reason: WHEEZING Last Admin: 02/04/18 19:59 Dose: 1 ampul Amlodipine Besylate (Norvasc) 10 mg PO DAILY [facility] Last Admin: 01/30/18 10:40 Dose: 10 mg Bisacodyl (Dulcolax Supp) 10 mg RECTAL DAILY PRN PRN Reason: SEVERE CONSITIPATION Chlorhexidine Gluconate (Peridex 0.12% Oral Kit) 15 ml OROPHARYNG BID@0800, 2000 [facility] Last Admin: 02/04/18 19:53 Dose: 15 ml Citalopram Hydrobromide (Celexa) 20 mg PO DAILY [facility] Last Admin: 02/04/18 08:34 Dose: 20 mg Epinephrine (Racepinephrine 2.25% Neb) 0.5 ml NEB Q3HR NEB PRN PRN Reason: any upper airway noise or stri Fentanyl Citrate (Fentanyl Inj) 100 mcg IV.PUSH ONCE ONE Stop: 02/05/18 08:10 Hydralazine HCl (Apresoline Inj) 20 mg IV.PUSH Q4H PRN PRN Reason: SBP>160, DBP>90 Last Admin: 02/04/18 17:03 Dose: 20 mg Sodium Chloride (Ns Inj) 500 mls @ 30 mls/hr IV.SIG .Q10H [facility] Norepinephrine Bitartrate (Levophed-Dextrose 4 Mg/250 Ml Drip) 4 mg in 250 mls @ 7.5 mls/hr IV.SIG TITRATE PRN; Protocol PRN Reason: Per Protocol Last Titration: 02/05/18 03:02 Dose: 0 mcg/min, 0 mls/hr Ceftaroline Fosamil 300 mg/ (Sodium Chloride) 100 mls @ 100 mls/hr IV.SIG Q12H [facility] Last Infusion: 02/05/18 03:57 Dose: Infused Albumin Human (Flexbumin 25% Inj) 100 mls @ 60 mls/hr IV.SIG Q12H [facility] Last Infusion: 02/05/18 03:57 Dose: Infused Daptomycin 800 mg/ Sodium (Chloride) 100 mls @ 200 mls/hr IV.SIG Q48H [facility] Last Infusion: 02/03/18 19:00 Dose: Infused Furosemide 100 mg/ Sodium (Chloride) 100 mls @ 5 mls/hr IV.CONT .Q20H [facility] Last Admin: 02/05/18 02:01 Dose: 5 mls/hr Aztreonam 1,000 mg/ Sodium (Chloride) 100 mls @ 200 mls/hr IV.SIG Q6H [facility] Last Infusion: 02/05/18 02:51 Dose: Infused Micafungin Sodium 150 mg/ (Sodium Chloride) 100 mls @ 100 mls/hr IV.SIG Q24H [facility] Last Infusion: 02/04/18 23:37 Dose: Infused Lactulose (Lactulose Liq) 30 ml PO BID PRN PRN Reason: CONSTIPATION Levothyroxine Sodium (Synthroid) 100 mcg PO DAILY@0600 [facility] Last Admin: 02/05/18 05:26 Dose: 100 mcg Melatonin (Melatonin) 5 mg PO HS [facility] Last Admin: 02/04/18 20:00 Dose: 5 mg Metoprolol Tartrate (Lopressor) 12.5 mg PO BID [facility] Last Admin: 01/31/18 21:28 Dose: 12.5 mg Midazolam HCl (Versed Inj) 5 mg IV.PUSH ONCE ONE Stop: 02/05/18 09:01 Miscellaneous (Pill Splitter) 1 each OTHER UNSCH PRN PRN Reason: PILL SPIT Miscellaneous Medication () 1 each OROPHARYNG 0000,0400,1200,1600 [facility] Last Admin: 02/05/18 04:33 Dose: 1 each Morphine Sulfate (Morphine Inj) 1 mg IV.PUSH Q3H PRN PRN Reason: pain 1-10 when npo Ondansetron HCl (Zofran Inj) 4 mg IV.PUSH Q6H PRN PRN Reason: NAUSEA OR VOMITING Pantoprazole Sodium (Protonix Inj) 40 mg IV.PUSH DAILY [facility] Last Admin: 02/04/18 08:32 Dose: 40 mg Potassium Bicarbonate (Effer-K) 25 meq PO BID [facility] Last Admin: 02/04/18 20:00 Dose: 25 meq Rocuronium [place] (Zemuron Inj) 100 mg IV.PUSH BOLUS ONE Stop: 02/05/18 08:11 Senna/Docusate Sodium (Diana-Colace) 1 tab PO BID [facility] Last Admin: 02/04/18 20:00 Dose: Not Given Sennosides (Senokot) 17.2 mg PO Q12H PRN PRN Reason: Moderate Constipation Sodium Chloride (Ns Flush) 2 ml IV.FLUSH BID [facility] Last Admin: 02/04/18 20:00 Dose: 2 ml Sodium Chloride (Ns Flush) 2 ml IV.FLUSH PRN PRN PRN Reason: FLUSH AFTER USING IV ACCESS Last Admin: 02/03/18 20:13 Dose: 2 ml Tamsulosin HCl (Flomax) 0.4 mg PO DAILY [facility] Last Admin: 02/04/18 08:34 Dose: Not Given Terbutaline Sulfate (Brethine Inj) 1 mg SQ UNSCH PRN PRN Reason: For Extravasation Allergies/Adverse Reactions: Allergies Allergy/AdvReac Type Severity Reaction Status Date / Time amoxicillin Allergy Severe Hives Verified 01/13/18 20:44 Review of Systems All other systems reviewed negative except as stated in HPI, unobtainable due to endotracheal tube, unobtainable due to mental status Physical Exam Vital signs: Vital Signs 02/04/18 08:30 02/04/18 08:45 02/04/18 08:53 Temperature Pulse Rate 93 H 90 84 Respiratory Rate 16 Blood Pressure Pulse Oximetry 93 L 95 97 02/04/18 09:00 02/04/18 09:15 02/04/18 09:30 Temperature Pulse Rate 85 86 96 H Respiratory Rate 17 Blood Pressure Pulse Oximetry 95 96 96 02/04/18 09:45 02/04/18 10:00 02/04/18 10:15 Temperature Pulse Rate 92 H 94 H 94 H Respiratory Rate 27 H Blood Pressure Pulse Oximetry 96 96 95 02/04/18 10:30 02/04/18 10:45 02/04/18 11:00 Temperature Pulse Rate 96 H 96 H 93 H Respiratory Rate 27 H 17 Blood Pressure Pulse Oximetry 96 95 96 02/04/18 11:15 02/04/18 12:00 02/04/18 12:30 Temperature 101.3 F H Pulse Rate 90 101 H 100 H Respiratory Rate 21 Blood Pressure Pulse Oximetry 96 89 L 96 02/04/18 12:45 02/04/18 13:00 02/04/18 13:15 Temperature Pulse Rate 93 H 94 H 92 H Respiratory Rate 16 Blood Pressure Pulse Oximetry 96 96 96 02/04/18 13:30 02/04/18 13:45 02/04/18 14:00 Temperature Pulse Rate 90 89 88 Respiratory Rate 14 Blood Pressure Pulse Oximetry 95 95 95 02/04/18 14:15 02/04/18 14:30 02/04/18 14:45 Temperature Pulse Rate 91 H 87 87 Respiratory Rate Blood Pressure Pulse Oximetry 96 96 96 02/04/18 15:00 02/04/18 15:15 02/04/18 15:30 Temperature Pulse Rate 91 H 85 81 Respiratory Rate Blood Pressure Pulse Oximetry 97 96 96 02/04/18 15:45 02/04/18 16:00 02/04/18 16:15 Temperature 100.7 F H Pulse Rate 85 82 82 Respiratory Rate 17 Blood Pressure Pulse Oximetry 96 86 L 95 02/04/18 16:16 02/04/18 16:18 02/04/18 16:30 Temperature Pulse Rate 88 88 Respiratory Rate 15 14 Blood Pressure 148/68 H Pulse Oximetry 95 93 L 02/04/18 16:45 02/04/18 17:00 02/04/18 17:15 Temperature Pulse Rate 97 H 99 H 103 H Respiratory Rate Blood Pressure 170/66 H Pulse Oximetry 95 95 95 02/04/18 17:30 02/04/18 18:00 02/04/18 18:35 Temperature 101.6 F H Pulse Rate 105 H 121 H 115 H Respiratory Rate 20 Blood Pressure 108/75 120/67 Pulse Oximetry 95 94 L 95 02/04/18 18:45 02/04/18 19:00 02/04/18 19:12 Temperature Pulse Rate 113 H 102 H 102 H Respiratory Rate Blood Pressure 89/53 L Pulse Oximetry 95 96 96 02/04/18 19:15 02/04/18 19:20 02/04/18 19:22 Temperature Pulse Rate 98 H 93 H 92 H Respiratory Rate Blood Pressure 83/53 L 77/53 L 101/59 L Pulse Oximetry 96 96 96 02/04/18 19:30 02/04/18 19:45 02/04/18 19:59 Temperature Pulse Rate 103 H 103 H 105 H Respiratory Rate 15 Blood Pressure 95/55 L 106/54 L Pulse Oximetry 97 96 96 02/04/18 20:00 02/04/18 20:15 02/04/18 20:30 Temperature 99.5 F Pulse Rate 107 H 103 H 101 H Respiratory Rate Blood Pressure 126/57 L 132/61 139/65 Pulse Oximetry 96 97 97 02/04/18 20:45 02/04/18 21:00 02/04/18 21:15 Temperature Pulse Rate 97 H 96 H 97 H Respiratory Rate Blood Pressure 146/74 H 128/64 124/58 L Pulse Oximetry 97 98 95 02/04/18 21:30 02/04/18 21:45 02/04/18 22:00 Temperature Pulse Rate 91 H 94 H 92 H Respiratory Rate Blood Pressure 122/60 133/61 150/67 H Pulse Oximetry 98 98 98 02/04/18 22:15 02/04/18 22:30 02/04/18 22:45 Temperature Pulse Rate 94 H 92 H 92 H Respiratory Rate Blood Pressure 133/59 L 139/64 130/58 L Pulse Oximetry 97 98 97 02/04/18 23:00 02/04/18 23:15 02/04/18 23:30 Temperature Pulse Rate 90 85 88 Respiratory Rate Blood Pressure 130/60 145/63 H 147/65 H Pulse Oximetry 97 97 95 02/04/18 23:39 02/04/18 23:45 02/05/18 00:00 Temperature 98.7 F Pulse Rate 87 89 Respiratory Rate 15 Blood Pressure 134/55 L 119/57 L Pulse Oximetry 97 96 97 02/05/18 00:12 02/05/18 00:15 02/05/18 00:26 Temperature 98.7 F Pulse Rate 82 82 84 Respiratory Rate Blood Pressure 99/55 L 91/54 L 125/60 Pulse Oximetry 96 95 97 02/05/18 00:30 02/05/18 00:45 02/05/18 01:00 Temperature Pulse Rate 86 88 85 Respiratory Rate Blood Pressure 115/57 L 111/59 L 119/60 Pulse Oximetry 96 96 96 02/05/18 01:15 02/05/18 01:30 02/05/18 01:45 Temperature Pulse Rate 88 87 84 Respiratory Rate Blood Pressure 127/63 136/61 130/63 Pulse Oximetry 97 95 96 02/05/18 02:00 02/05/18 02:15 02/05/18 02:30 Temperature Pulse Rate 85 88 86 Respiratory Rate Blood Pressure 137/65 129/63 136/64 Pulse Oximetry 96 96 97 02/05/18 02:45 02/05/18 03:00 02/05/18 03:15 Temperature Pulse Rate 90 88 82 Respiratory Rate Blood Pressure 146/66 H 144/68 H 117/63 Pulse Oximetry 97 97 96 02/05/18 03:30 02/05/18 03:45 02/05/18 03:47 Temperature Pulse Rate 82 81 Respiratory Rate 18 Blood Pressure 128/65 127/63 Pulse Oximetry 96 96 96 02/05/18 04:00 02/05/18 04:15 02/05/18 04:30 Temperature 98.3 F Pulse Rate 76 82 83 Respiratory Rate Blood Pressure 120/59 L 141/63 H 142/70 H Pulse Oximetry 97 96 96 02/05/18 04:45 02/05/18 05:00 02/05/18 05:15 Temperature Pulse Rate 81 83 86 Respiratory Rate Blood Pressure 136/60 132/63 Pulse Oximetry 96 96 93 L 02/05/18 05:30 02/05/18 05:45 02/05/18 06:00 Temperature Pulse Rate 82 82 78 Respiratory Rate Blood Pressure 135/58 L 125/57 L 110/55 L Pulse Oximetry 94 L 95 94 L 02/05/18 06:15 02/05/18 06:30 02/05/18 06:45 Temperature Pulse Rate 75 80 77 Respiratory Rate Blood Pressure 104/50 L 101/57 L 109/54 L Pulse Oximetry 95 95 95 02/05/18 08:19 Temperature Pulse Rate Respiratory Rate 30 H Blood Pressure Pulse Oximetry 95 Intake & Output 02/04/18 02/05/18 02/05/18 18:59 06:59 18:59 Intake Total 1293 / 1293 1186 / 1186 Output Total 1680 / 1680 1310 / 1310 Balance -387 / -387 -124 / -124 Weight 78.5 kg Intake: IV 400 / 400 500 / 500 Lasix Inj 100 MG In NS Inj 90 100 / 100 ML @ 10 mls/hr IV.CONT .Q10H [facility] Rx#:[id number] Flexbumin 25% Inj 100 ML @ 60 100 / 100 100 / 100 mls/hr IV.SIG Q12H [facility] Rx#: [id number] Azactam Inj 1,000 MG In NS Inj 200 / 200 100 ML @ 200 mls/hr IV.SIG Q6H [facility] Rx#:[id number] Teflaro Inj 300 MG In NS Inj 100 / 100 100 / 100 100 ML @ 100 mls/hr IV.SIG Q12H [facility] Rx#:[id number] Mycamine Inj 150 MG In NS Inj 100 / 100 100 ML @ 100 mls/hr IV.SIG Q24H [facility] Rx#:[id number] KCl 40 mEq Premix Inj 40 meq In 100 / 100 100 ml @ 25 mls/hr IV.SIG ONCE ONE Rx#:[id number] Tube Feeding 773 / 773 586 / 586 Tube Irrigant 100 / 100 Water Bolus Amount 120 / 120 Output: Urine Amount (Catheter) 1650 / 1650 1300 / 1300 Indwelling Urethral Catheter 1650 / 1650 1300 / 1300 Gastric Drainage 0 / 0 Left Nare Nasogastric Tube 0 / 0 Chest Tube Drainage 30 / 30 10 / 10 Right 30 / 30 10 / 10 Other: Date of Last Bowel Movement 02/04/18 02/05/18 # Bowel Movements 2 # Incontinent Bowel Movements 1 Narrative: GENERAL: intubated patient. SKIN: Warm and dry. HEAD: Normocephalic. EYES: No scleral icterus. NECK: Supple, trachea midline. CARDIOVASCULAR: Irregular RESPIRATORY: Intubated, no accessory muscle use GASTROINTESTINAL: Abdomen soft, non-tender, EXTREMITIES: Shoulder bandage kevin NEUROLOGICAL:intubated, arousable, alerts, follows motor request closes eyes she has 2 fingers with each hand and able to slightly wiggle his toes, has peripheral edema severe generalized weakness unable to raise any extremity to gravity depressed reflexes plantarflex her no clonus - Constitutional no acute distress - Routine HEENT Exam Head: Present: normocephalic - Urinary Catheter Management Condom Cath placed during this visit: no Indwelling Urethral Catheter Cath placed during this visit: yes Reason for continuing: Hourly intake/output Insertion date: 01/20/18 Insertion time: 11:30 Objective Laboratory Results - last 24 hr 02/04/18 02/04/18 02/04/18 15:22 19:35 19:35 WBC RBC Hgb Hct MCV MCH MCHC RDW Plt Count MPV Neut % (Auto) Lymph % (Auto) [place] % (Auto) Eos % (Auto) Baso % (Auto) Neut # (Auto) Lymph # (Auto) [place] # (Auto) Eos # (Auto) Baso # (Auto) WBC Differential Differential Comment Sodium Potassium Chloride Carbon Dioxide Anion Gap BUN Creatinine Estimated GFR Random Glucose Calcium Total Bilirubin AST ALT Alkaline Phosphatase Total Creatine Kinase 9 L Total Protein Albumin Procalcitonin 1.02 H Urine Color Yellow Urine Clarity Slight H Urine pH 5.0 Ur Specific [place] 1.009 Urine Protein 30 H Urine Glucose (UA) Negative Urine Ketones Negative Urine Occult Blood Negative Urine Nitrate Negative Urine Bilirubin Negative Urine Urobilinogen Less than 2 Ur Leukocyte Esterase Negative Urine RBC 2 Urine WBC 1 Ur Squamous Epith Cells 2 Amorphous Sediment Few H Granular Casts 5 Urine Mucus Few H Micro UA Comment Culture not ind Ur Microscopic Review Not Reportable Urine Culture Comments Culture not ind 02/05/18 02/05/18 05:35 05:35 WBC 7.5 RBC 2.71 L Hgb 7.5 L Hct 22.0 L MCV 81.0 MCH 27.7 MCHC 34.1 RDW 20.6 H Plt Count 225 MPV 9.4 Neut % (Auto) 84.5 H Lymph % (Auto) 8.5 L [place] % (Auto) 3.8 Eos % (Auto) 2.9 Baso % (Auto) 0.3 Neut # (Auto) 6.3 Lymph # (Auto) 0.6 L [place] # (Auto) 0.3 Eos # (Auto) 0.2 Baso # (Auto) 0.0 WBC Differential . Differential Comment Auto diff final Sodium 139 Potassium 3.5 Chloride 105 Carbon Dioxide 23.3 Anion Gap 11 BUN 69 H Creatinine 2.29 H Estimated GFR 28 L Random Glucose 141 H Calcium 8.7 Total Bilirubin 1.9 H AST 18 ALT 18 Alkaline Phosphatase 466 H Total Creatine Kinase Total Protein 5.7 L Albumin 2.7 L Procalcitonin Urine Color Urine Clarity Urine pH Ur Specific [place] Urine Protein Urine Glucose (UA) Urine Ketones Urine Occult Blood Urine Nitrate Urine Bilirubin Urine Urobilinogen Ur Leukocyte Esterase Urine RBC Urine WBC Ur Squamous Epith Cells Amorphous Sediment Granular Casts Urine Mucus Micro UA Comment Ur Microscopic Review Urine Culture Comments Microbiology 02/04/18 15:24 Gram Stain - Final Sputum - Endotracheal 02/03/18 12:50 Aerobic Blood Culture - Preliminary Blood - Peripheral No growth in 1 day Anaerobic Blood Culture - Preliminary No growth in 1 day 02/03/18 12:56 Aerobic Blood Culture - Preliminary Blood - Peripheral No growth in 1 day Anaerobic Blood Culture - Preliminary No growth in 1 day 01/31/18 11:16 Aerobic Blood Culture - Preliminary Blood - Peripheral No growth in 4 days Anaerobic Blood Culture - Preliminary No growth in 4 days 01/31/18 11:10 Aerobic Blood Culture - Preliminary Blood - Peripheral No growth in 4 days Anaerobic Blood Culture - Preliminary No growth in 4 days Review/Management - Diagnosis (1) Disuse muscle atrophy Code(s): M62.50 - Muscle wasting and atrophy, not elsewhere classified, unspecified site Status: Acute Current Visit: Yes (2) Weakness Code(s): R53.1 - Weakness Status: Acute Current Visit: Yes (3) Acute UTI Code(s): N39.0 - Urinary tract infection, site not specified Status: Acute Current Visit: Yes (4) Atrial fibrillation Code(s): I48.91 - Unspecified atrial fibrillation Status: Acute Current Visit: Yes (5) Encephalomalacia on imaging study Code(s): G93.89 - Other specified disorders of brain Status: Acute Current Visit: Yes (6) Renal insufficiency Code(s): N28.9 - Disorder of kidney and ureter, unspecified Status: Acute Current Visit: Yes (7) MRSA (methicillin resistant Staphylococcus aureus) Code(s): A49.02 - Methicillin resistant Staphylococcus aureus infection, unspecified site Status: Acute Current Visit: Yes (8) Sepsis Code(s): A41.9 - Sepsis, unspecified organism Status: Acute Current Visit: Yes (9) Acute renal failure Code(s): N17.9 - Acute kidney failure, unspecified Status: Acute Current Visit: Yes (10) Pulmonary edema Code(s): J81.1 - Chronic pulmonary edema Status: Acute Current Visit: Yes - Review/Management Plan: Subacute progressive weakness apparently occurring couple days after flu vaccine however, found to have MRSA sepsis, shoulder abscess and possibly lumbar spine infection CK level and prealbumin is low disuse atrophy 2/2 sepsis/bedridden Moderate left frontal encephalomalacia appearing to be from meningioma resection bilateral shoulder i/d, arthrotomy Progressive renal failure, hypoalbuminemia, anasarca Critical illness mononeuropathy Recommendation Plans for trach today EEG reviewed mild left frontal slowing there we had a previous meningioma resection Able to follow motor requests Progressive uremia which could cause hypersomnolence and metabolic encephalopathy Aggressive nutritional support, extubation per CCM however he may require trach DVT prophylaxis, blood thinners per CCM CCM/ID/renal management pt critically ill (4) Atrial fibrillation Qualifiers: Atrial fibrillation type: unspecified Qualified Code(s): I48.91 - Unspecified atrial fibrillation (8) Sepsis Qualifiers: Sepsis type: methicillin resistant Staphylococcus aureus Qualified Code(s): A41.02 - Sepsis due to Methicillin resistant Staphylococcus aureus
[2018-02-05] MEDS: Pantoprazole Inj 40 MG Vial IV.PUSH SCH (08:44)
[2018-02-05] MEDS: Chlorhexidine 0.12% Oral Kit 15 ML UDC OROPHARYNG SCH ×2 (08:45→22:12)
[2018-02-05] MEDS: Citalopram 20 MG Tablet PO SCH (08:45)
[2018-02-05] MEDS: Senna/Docusate Sodium 8.6/50 MG Tablet PO SCH ×2 (08:46→22:14)
[2018-02-05] MEDS ORDERED: fentaNYL Citrate Inj 100 MCG/2 ML Ampul IV.PUSH ONE (09:00)
[2018-02-05] MEDS ORDERED: Midazolam Inj 5 MG/ML 1 ML Vial IV.PUSH ONE (09:00)
[2018-02-05] MEDS: Potassium Bicarbonate 25 MEQ Effervescent Tablet PO SCH ×2 (09:59→22:12)
--- NOTE | 2018-02-05 12:38 | P.PNID ---
Subjective Remarks: On vent, 50 % FiO2 and PEEP 8 minimal secretons trach is planned today all clx no growth sputum non purulent and with nl resp cecilia no fever today He is off levaphed renal function stable remains very lethargic today, but easily arousable and answers approprietly Antibiotics: v teflaro daptomycin azactam micafungin Lines: Line sites with no e.o infection Past Medical History: reviewed Allergies/Adverse Reactions: Allergies amoxicillin Allergy (Severe, Verified 01/13/18 20:44) Hives Objective Vital Signs 02/04/18 12:45 02/04/18 13:00 02/04/18 13:15 Temperature Pulse Rate 93 H 94 H 92 H Respiratory Rate 16 Blood Pressure Pulse Oximetry 96 96 96 02/04/18 13:30 02/04/18 13:45 02/04/18 14:00 Temperature Pulse Rate 90 89 88 Respiratory Rate 14 Blood Pressure Pulse Oximetry 95 95 95 02/04/18 14:15 02/04/18 14:30 02/04/18 14:45 Temperature Pulse Rate 91 H 87 87 Respiratory Rate Blood Pressure Pulse Oximetry 96 96 96 02/04/18 15:00 02/04/18 15:15 02/04/18 15:30 Temperature Pulse Rate 91 H 85 81 Respiratory Rate Blood Pressure Pulse Oximetry 97 96 96 02/04/18 15:45 02/04/18 16:00 02/04/18 16:15 Temperature 100.7 F H Pulse Rate 85 82 82 Respiratory Rate 17 Blood Pressure Pulse Oximetry 96 86 L 95 02/04/18 16:16 02/04/18 16:18 02/04/18 16:30 Temperature Pulse Rate 88 88 Respiratory Rate 15 14 Blood Pressure 148/68 H Pulse Oximetry 95 93 L 02/04/18 16:45 02/04/18 17:00 02/04/18 17:15 Temperature Pulse Rate 97 H 99 H 103 H Respiratory Rate Blood Pressure 170/66 H Pulse Oximetry 95 95 95 02/04/18 17:30 02/04/18 18:00 02/04/18 18:35 Temperature 101.6 F H Pulse Rate 105 H 121 H 115 H Respiratory Rate 20 Blood Pressure 108/75 120/67 Pulse Oximetry 95 94 L 95 02/04/18 18:45 02/04/18 19:00 02/04/18 19:12 Temperature Pulse Rate 113 H 102 H 102 H Respiratory Rate Blood Pressure 89/53 L Pulse Oximetry 95 96 96 02/04/18 19:15 02/04/18 19:20 02/04/18 19:22 Temperature Pulse Rate 98 H 93 H 92 H Respiratory Rate Blood Pressure 83/53 L 77/53 L 101/59 L Pulse Oximetry 96 96 96 02/04/18 19:30 02/04/18 19:45 02/04/18 19:59 Temperature Pulse Rate 103 H 103 H 105 H Respiratory Rate 15 Blood Pressure 95/55 L 106/54 L Pulse Oximetry 97 96 96 02/04/18 20:00 02/04/18 20:15 02/04/18 20:30 Temperature 99.5 F Pulse Rate 107 H 103 H 101 H Respiratory Rate Blood Pressure 126/57 L 132/61 139/65 Pulse Oximetry 96 97 97 02/04/18 20:45 02/04/18 21:00 02/04/18 21:15 Temperature Pulse Rate 97 H 96 H 97 H Respiratory Rate Blood Pressure 146/74 H 128/64 124/58 L Pulse Oximetry 97 98 95 02/04/18 21:30 02/04/18 21:45 02/04/18 22:00 Temperature Pulse Rate 91 H 94 H 92 H Respiratory Rate Blood Pressure 122/60 133/61 150/67 H Pulse Oximetry 98 98 98 02/04/18 22:15 02/04/18 22:30 02/04/18 22:45 Temperature Pulse Rate 94 H 92 H 92 H Respiratory Rate Blood Pressure 133/59 L 139/64 130/58 L Pulse Oximetry 97 98 97 02/04/18 23:00 02/04/18 23:15 02/04/18 23:30 Temperature Pulse Rate 90 85 88 Respiratory Rate Blood Pressure 130/60 145/63 H 147/65 H Pulse Oximetry 97 97 95 02/04/18 23:39 02/04/18 23:45 02/05/18 00:00 Temperature 98.7 F Pulse Rate 87 89 Respiratory Rate 15 Blood Pressure 134/55 L 119/57 L Pulse Oximetry 97 96 97 02/05/18 00:12 02/05/18 00:15 02/05/18 00:26 Temperature 98.7 F Pulse Rate 82 82 84 Respiratory Rate Blood Pressure 99/55 L 91/54 L 125/60 Pulse Oximetry 96 95 97 02/05/18 00:30 02/05/18 00:45 02/05/18 01:00 Temperature Pulse Rate 86 88 85 Respiratory Rate Blood Pressure 115/57 L 111/59 L 119/60 Pulse Oximetry 96 96 96 02/05/18 01:15 02/05/18 01:30 02/05/18 01:45 Temperature Pulse Rate 88 87 84 Respiratory Rate Blood Pressure 127/63 136/61 130/63 Pulse Oximetry 97 95 96 02/05/18 02:00 02/05/18 02:15 02/05/18 02:30 Temperature Pulse Rate 85 88 86 Respiratory Rate Blood Pressure 137/65 129/63 136/64 Pulse Oximetry 96 96 97 02/05/18 02:45 02/05/18 03:00 02/05/18 03:15 Temperature Pulse Rate 90 88 82 Respiratory Rate Blood Pressure 146/66 H 144/68 H 117/63 Pulse Oximetry 97 97 96 02/05/18 03:30 02/05/18 03:45 02/05/18 03:47 Temperature Pulse Rate 82 81 Respiratory Rate 18 Blood Pressure 128/65 127/63 Pulse Oximetry 96 96 96 02/05/18 04:00 02/05/18 04:15 02/05/18 04:30 Temperature 98.3 F Pulse Rate 76 82 83 Respiratory Rate Blood Pressure 120/59 L 141/63 H 142/70 H Pulse Oximetry 97 96 96 02/05/18 04:45 02/05/18 05:00 02/05/18 05:15 Temperature Pulse Rate 81 83 86 Respiratory Rate Blood Pressure 136/60 132/63 Pulse Oximetry 96 96 93 L 02/05/18 05:30 02/05/18 05:45 02/05/18 06:00 Temperature Pulse Rate 82 82 78 Respiratory Rate Blood Pressure 135/58 L 125/57 L 110/55 L Pulse Oximetry 94 L 95 94 L 02/05/18 06:15 02/05/18 06:30 02/05/18 06:45 Temperature Pulse Rate 75 80 77 Respiratory Rate Blood Pressure 104/50 L 101/57 L 109/54 L Pulse Oximetry 95 95 95 02/05/18 07:00 02/05/18 08:00 02/05/18 08:19 Temperature 99.2 F Pulse Rate 76 80 Respiratory Rate 17 28 H 30 H Blood Pressure 113/54 L 140/65 Pulse Oximetry 95 95 95 02/05/18 09:00 02/05/18 10:00 02/05/18 11:00 Temperature 98.8 F Pulse Rate 82 87 90 Respiratory Rate 28 H 21 15 Blood Pressure 147/67 H 135/63 146/79 H Pulse Oximetry 93 L 94 L 94 L Intake & Output 02/04/18 02/05/18 02/05/18 18:59 06:59 18:59 Intake Total 1293 / 1293 1186 / 1186 100 / 100 Output Total 1680 / 1680 1310 / 1310 Balance -387 / -387 -124 / -124 100 / 100 Weight 78.5 kg Intake: IV 400 / 400 500 / 500 100 / 100 Lasix Inj 100 MG In NS Inj 90 100 / 100 ML @ 10 mls/hr IV.CONT .Q10H [facility] Rx#:[id number] Flexbumin 25% Inj 100 ML @ 60 100 / 100 100 / 100 mls/hr IV.SIG Q12H [facility] Rx#: [id number] Azactam Inj 1,000 MG In NS Inj 200 / 200 100 / 100 100 ML @ 200 mls/hr IV.SIG Q6H [facility] Rx#:[id number] Teflaro Inj 300 MG In NS Inj 100 / 100 100 / 100 100 ML @ 100 mls/hr IV.SIG Q12H [facility] Rx#:[id number] Mycamine Inj 150 MG In NS Inj 100 / 100 100 ML @ 100 mls/hr IV.SIG Q24H [facility] Rx#:[id number] KCl 40 mEq Premix Inj 40 meq In 100 / 100 100 ml @ 25 mls/hr IV.SIG ONCE ONE Rx#:[id number] Tube Feeding 773 / 773 586 / 586 Tube Irrigant 100 / 100 Water Bolus Amount 120 / 120 Output: Urine Amount (Catheter) 1650 / 1650 1300 / 1300 Indwelling Urethral Catheter 1650 / 1650 1300 / 1300 Gastric Drainage 0 / 0 Left Nare Nasogastric Tube 0 / 0 Chest Tube Drainage 30 / 30 10 / 10 Right 30 / 30 Other: Date of Last Bowel Movement 02/04/18 02/05/18 02/05/18 # Bowel Movements 2 # Incontinent Bowel Movements 1 02/04/18 15:24 Sputum - Endotracheal Gram Stain - Final 02/04/18 15:24 Sputum - Endotracheal Sputum Culture - Preliminary No growth in 24 hours 02/03/18 12:50 Blood - Peripheral Aerobic Blood Culture - Preliminary No growth in 2 days 02/03/18 12:50 Blood - Peripheral Anaerobic Blood Culture - Preliminary No growth in 2 days 02/03/18 12:56 Blood - Peripheral Aerobic Blood Culture - Preliminary No growth in 2 days 02/03/18 12:56 Blood - Peripheral Anaerobic Blood Culture - Preliminary No growth in 2 days 01/31/18 11:16 Blood - Peripheral Aerobic Blood Culture - Final No growth in 5 days 01/31/18 11:16 Blood - Peripheral Anaerobic Blood Culture - Final No growth in 5 days 01/31/18 11:10 Blood - Peripheral Aerobic Blood Culture - Final No growth in 5 days 01/31/18 11:10 Blood - Peripheral Anaerobic Blood Culture - Final No growth in 5 days 01/17/18 18:56 Fluid - Other Fungal Smear - Final No fungal elements seen 01/17/18 18:56 Fluid - Other Fungal Culture - Preliminary No growth in 2 weeks 01/30/18 15:00 Fluid - Pleural fluid Gram Stain - Final 01/30/18 15:00 Fluid - Pleural fluid Body Fluid Culture - Final No growth in 72 hours (aerobically and anaerobically ) 01/31/18 13:15 Catheterized Urine Urine Culture - Final No growth in 48 hours Lab - Hematology Results 02/04/18 02/05/18 05:45 05:35 WBC 8.1 7.5 RBC 2.78 L 2.71 L Hgb 7.6 L 7.5 L Hct 22.7 L 22.0 L MCV 81.6 81.0 MCH 27.5 27.7 MCHC 33.6 34.1 RDW 20.6 H 20.6 H Plt Count 215 225 MPV 9.6 9.4 Prelim Diff (Auto) Slide review pending Neut % (Auto) 86.5 H 84.5 H Lymph % (Auto) 8.7 L 8.5 L [place] % (Auto) 2.3 3.8 Eos % (Auto) 2.2 2.9 Baso % (Auto) 0.3 0.3 Neut # (Auto) 7.0 6.3 Lymph # (Auto) 0.7 L 0.6 L [place] # (Auto) 0.2 0.3 Eos # (Auto) 0.2 0.2 Baso # (Auto) 0.0 0.0 WBC Differential Manual diff final . Seg Neuts % (Manual) 64 Band Neuts % (Manual) 25 H Lymphocytes % (Manual) 6 L Monocytes % (Manual) 1 Eosinophils % (Manual) 3 Metamyelocytes % (Man) 1 Abs Neuts (Manual) 7.3 Differential Comment . Auto diff final Toxic Granulation 1+ H Platelet Estimate Normal Platelet Morphology Enlarged H Tear Drop Cells 1+ H Ovalocytes 1+ H Acanthocytes (Spur) Occ H Keratocytes Occ H Lab - Chemistry Results 02/04/18 02/04/18 02/04/18 05:45 19:35 19:35 Sodium 139 Potassium 3.0 L Chloride 104 Carbon Dioxide 21.3 Anion Gap 14 BUN 63 H Creatinine 2.26 H Estimated GFR 28 L Random Glucose 176 H Calcium 8.1 L Magnesium 2.2 Total Bilirubin 2.2 H AST 12 L ALT 15 Alkaline Phosphatase 382 H Total Creatine Kinase 9 L Total Protein 5.6 L Albumin 2.6 L Procalcitonin 1.02 H 02/05/18 05:35 Sodium 139 Potassium 3.5 Chloride 105 Carbon Dioxide 23.3 Anion Gap 11 BUN 69 H Creatinine 2.29 H Estimated GFR 28 L Random Glucose 141 H Calcium 8.7 Magnesium Total Bilirubin 1.9 H AST 18 ALT 18 Alkaline Phosphatase 466 H Total Creatine Kinase Total Protein 5.7 L Albumin 2.7 L Procalcitonin Imaging: ITS Impressions Abdomen/Pelvis CT 01/13/18 20:43 CONCLUSION: 1. Marked prostate enlargement. 2. Air-filled distention of sigmoid colon. 3. Cardiomegaly. Small bilateral pleural effusions. 4. Diffuse atherosclerotic disease and arterial calcification. 5. Old insufficiency type fractures of the left side of the sacrum and left- sided pubic rami. Cervical Spine MRI 01/14/18 00:00 CONCLUSION: 1. Examination is degraded by motion artifact. 2. Partial visualization of a mass involving the left supraclavicular region measuring 5.[address] scan of the soft tissues of the neck with IV contrast to further assess if the patient can't hold still for that exam. 3. Diffuse degenerative changes as detailed at each level in the above discussion. Head MRI 01/14/18 00:00 CONCLUSION: 1. No acute intracranial abnormality. 2. Encephalomalacia involving the left frontal lobe. Thoracic Spine MRI 01/14/18 00:00 CONCLUSION: 1. See the MRI of the cervical spine reported separately. 2. Orthopedic hardware at the thoracolumbar junction. 3. Patent central canal throughout. Soft Tissue Neck CT 01/16/18 00:00 CONCLUSION: 1. Partially visualized fluid and gas collection deep to the left trapezius muscle in the posterior lower neck extending into the posterior thorax. Chest CT with contrast could be performed to image the remainder of the abnormality. Differential diagnosis includes abscess and hematoma. 2. Degenerative findings of the cervical spine. Abscess Drainage CT 01/17/18 00:00 CONCLUSION: 1. Uncomplicated CT guided drainage, as above. WBC Scan Nuclear Medicine 01/18/18 00:00 CONCLUSION: 1. Multiple areas of abnormal uptake including at the upper lumbar spine around the upper left surgical hardware and at the L1-2 disc level. 2. Abnormal activity around the clip joints bilaterally being more prominent on the right. 3. Abnormal activity in the right C2-3 facet and the left C7-T1 facet. 4. Small area of signal abnormality in the posterior right sacroiliac joint region separate from surgical hardware. 5. All these areas are concerning for active infection. Shoulder X-Ray 01/21/18 00:00 CONCLUSION: Unusual positioning of the shoulder but I do not see any obvious displaced fracture of the shoulder. There is a healing third rib fracture and healing seventh rib fracture. Upper Extremity Ultrasound 01/22/18 00:00 CONCLUSION: 1. Lateral right shoulder subcutaneous complex fluid collection concerning for abscess. This is amenable to percutaneous drainage. Abscess Drainage Ultrasound 01/23/18 00:00 CONCLUSION: 1. Uncomplicated ultrasound-guided drainage catheter placement in complex inferolateral right shoulder fluid collection. Lumbar Spine MRI 01/23/18 00:00 CONCLUSION: Little or no change from previous exam. Nothing to suggest abscess Pelvis MRI 01/23/18 00:00 CONCLUSION: 1. Diffuse skin thickening and subcutaneous edema suggestive of cellulitis involving the left buttock without underlying abscess formation. 2. Rectosigmoid colon is distended with fecal debris suggestive of fecal impaction. Clinical correlation is recommended. 3. Markedly enlarged prostate. 4. Degenerative changes and scoliosis of the visualized lower lumbar spine are noted. 5. Bony changes involving the left sacrum likely representing old healed insufficiency fractures. Shoulder MRI 01/23/18 00:00 CONCLUSION: 1. Chronic complete rotator cuff tear. 2. Moderate joint fluid Abscess Drainage 01/24/18 15:37 CONCLUSION: 1. Uncomplicated percutaneous placement of drainage catheter in left shoulder. Chest CT 01/29/18 15:28 CONCLUSION: 1. Interval increase in the amount of pleural effusions bilaterally. Findings have been discussed with Dr. Tom on today's date. Thoracentesis CT 01/30/18 00:00 CONCLUSION: 1. Uncomplicated CT-guided right-sided chest tube placement. Venous Doppler Study 02/02/18 00:00 CONCLUSION: The study is negative for bilateral lower extremity deep venous thrombosis. Head CT 02/03/18 00:00 CONCLUSION: 1. Left maxillary mucosal thickening. 2. Atrophy and left frontal encephalomalacia again noted. . Chest X-Ray 02/04/18 06:00 CONCLUSION: Decreased lung volumes with mild new hazy bilateral lung opacity. Physical Exam: GENERAL: on vent SKIN: Warm and dry. No rash HEAD: Atraumatic. Normocephalic. EYES: Pupils equal and round. No scleral icterus. No injection or drainage. ENT: No nasal bleeding or discharge. Mucous membranes pink and moist. NECK: Trachea midline. No JVD. No palpable masses, but diffuse pain CARDIOVASCULAR: Regular rate and rhythm. nO murmurs RESPIRATORY: No accessory muscle use. R sided CT in place clear serous fluid GASTROINTESTINAL: Abdomen soft, non-tender, mildly distended. Hepatic and splenic margins not palpable. MUSCULOSKELETAL: Extremities without clubbing, cyanosis, + increasing soft pitting edema. No obvious deformities. b/l shoulders with dressing on place : [place] in, clear yellow urine NEUROLOGICAL: less lethargic more interactive and answers questions PSYCHIATRIC: unable to assess Assessment and Plan - Plan High grade staph bacteremia. MRSA 2 D echo neg R shoulder effusion , cw R shoulder septic arhtritis (MRSA)-post I&D. . 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 source: fever resolved. BC neg so far. Empiric broad spectrum coverage Recs: cont daptomycin, teflaro fu BC and sputum cl untill final stool for c.diff is stool is loose serial procalcitonines will consider scans if cont to have fever and w/u remains negative will start broad spectrum abx (will add azactam, micafungin) poonam RN dw family @ b/s
--- NOTE | 2018-02-05 13:51 | P.PCN ---
Date of procedure: 02/05/18 Pre-op diagnosis: Resp failure, unable to wean Post-op diagnosis: same Procedure: Percutaneous dilation tracheostomy Performed by Dr. Krishnan/Dr. Crawley Informed consent was obtained family and documented in the chart. Neck was prepped with chlorhexidine in the tracheostomy kit. Trachea was identified in the midline 2 fingerbreadths above the sternal notch. Area was anesthetized with the lidocaine with epinephrine within the tracheostomy Kit. Approximately half an inch vertical incision is made. Angiocath was placed into the trachea. A wire was threaded through the Angiocath under videoscopic guidance. The blue rhino punch was then used to dilate up the tracheal track. Blue Rhino was then placed over the guidewire to dilate followed by #8 Shiley tracheostomy placed over the 28 F loading dilator. The Blue Rhino and the guidewire were removed. The tracheostomy was secured in place with the suture supply within the tracheostomy kit. Bronchoscopic evaluation showed the tracheostomy tube in good position with minimal bleeding. Sutured and dressing applied and placed the on the ventilator with good tidal volume return. Anesthesia: local Estimated blood loss (mL): 2 Pathology: none sent Condition: critical Disposition: ICU
[2018-02-05] MEDS: hydrALAZINE HCl Inj 20 MG/ML Vial IV.PUSH PRN (14:09)
--- NOTE | 2018-02-05 14:18 | P.PCN ---
Date of procedure: 02/05/18 Procedure: Diagnosis: Acute respiratory failure Procedure: Flexible bronchoscopy Narrative: Timeout performed and patient properly identified. Patient resides in surgical intensive care unit on mechanical ventilation with all usual ICU measures in place. Sedation included Versed 5 mg IV, fentanyl 50 mg IV x2, rocuronium 100 mg IV. An elbow with sealed side port is placed in the ventilator circuit at the end of the indwelling endotracheal tube and used to access the tracheobronchial tree. Immediate inspection on insertion shows a normal distal main trachea and normal branching anatomy right and left side. The mucosa of the trachea is normal without inflammation. Sputum is minimal and small amounts were suctioned from basilar bronchi on both sides. The bronchoscope was then withdrawn in concert with the endotracheal tube to the level of the karan. From this vantage point the endoscope was used to provide visualization for a percutaneous tracheostomy. Following insertion of the new tracheostomy tube the bronchoscope was delivered down the new tube and confirmed its position safely in the mid trachea above the karan. There was minimal bleeding. The endoscope was then removed, inner cannula placed and ventilation resumed through the new tracheostomy tube. Oxygen saturation was maintained at greater than 92% throughout the procedure. The patient remained on mechanical ventilation at a rate of 16 following the procedure.
--- NOTE | 2018-02-05 14:48 | P.PNNP ---
Subjective Interval history: Status post tracheostomy increase urine output overall stable Physical Exam Vital signs: Vital Signs 02/04/18 15:00 02/04/18 15:15 02/04/18 15:30 Temperature Pulse Rate 91 H 85 81 Respiratory Rate Blood Pressure Pulse Oximetry 97 96 96 02/04/18 15:45 02/04/18 16:00 02/04/18 16:15 Temperature 100.7 F H Pulse Rate 85 82 82 Respiratory Rate 17 Blood Pressure Pulse Oximetry 96 86 L 95 02/04/18 16:16 02/04/18 16:18 02/04/18 16:30 Temperature Pulse Rate 88 88 Respiratory Rate 15 14 Blood Pressure 148/68 H Pulse Oximetry 95 93 L 02/04/18 16:45 02/04/18 17:00 02/04/18 17:15 Temperature Pulse Rate 97 H 99 H 103 H Respiratory Rate Blood Pressure 170/66 H Pulse Oximetry 95 95 95 02/04/18 17:30 02/04/18 18:00 02/04/18 18:35 Temperature 101.6 F H Pulse Rate 105 H 121 H 115 H Respiratory Rate 20 Blood Pressure 108/75 120/67 Pulse Oximetry 95 94 L 95 02/04/18 18:45 02/04/18 19:00 02/04/18 19:12 Temperature Pulse Rate 113 H 102 H 102 H Respiratory Rate Blood Pressure 89/53 L Pulse Oximetry 95 96 96 02/04/18 19:15 02/04/18 19:20 02/04/18 19:22 Temperature Pulse Rate 98 H 93 H 92 H Respiratory Rate Blood Pressure 83/53 L 77/53 L 101/59 L Pulse Oximetry 96 96 96 02/04/18 19:30 02/04/18 19:45 02/04/18 19:59 Temperature Pulse Rate 103 H 103 H 105 H Respiratory Rate 15 Blood Pressure 95/55 L 106/54 L Pulse Oximetry 97 96 96 02/04/18 20:00 02/04/18 20:15 02/04/18 20:30 Temperature 99.5 F Pulse Rate 107 H 103 H 101 H Respiratory Rate Blood Pressure 126/57 L 132/61 139/65 Pulse Oximetry 96 97 97 02/04/18 20:45 02/04/18 21:00 02/04/18 21:15 Temperature Pulse Rate 97 H 96 H 97 H Respiratory Rate Blood Pressure 146/74 H 128/64 124/58 L Pulse Oximetry 97 98 95 02/04/18 21:30 02/04/18 21:45 02/04/18 22:00 Temperature Pulse Rate 91 H 94 H 92 H Respiratory Rate Blood Pressure 122/60 133/61 150/67 H Pulse Oximetry 98 98 98 02/04/18 22:15 02/04/18 22:30 02/04/18 22:45 Temperature Pulse Rate 94 H 92 H 92 H Respiratory Rate Blood Pressure 133/59 L 139/64 130/58 L Pulse Oximetry 97 98 97 02/04/18 23:00 02/04/18 23:15 02/04/18 23:30 Temperature Pulse Rate 90 85 88 Respiratory Rate Blood Pressure 130/60 145/63 H 147/65 H Pulse Oximetry 97 97 95 02/04/18 23:39 02/04/18 23:45 02/05/18 00:00 Temperature 98.7 F Pulse Rate 87 89 Respiratory Rate 15 Blood Pressure 134/55 L 119/57 L Pulse Oximetry 97 96 97 02/05/18 00:12 02/05/18 00:15 02/05/18 00:26 Temperature 98.7 F Pulse Rate 82 82 84 Respiratory Rate Blood Pressure 99/55 L 91/54 L 125/60 Pulse Oximetry 96 95 97 02/05/18 00:30 02/05/18 00:45 02/05/18 01:00 Temperature Pulse Rate 86 88 85 Respiratory Rate Blood Pressure 115/57 L 111/59 L 119/60 Pulse Oximetry 96 96 96 02/05/18 01:15 02/05/18 01:30 02/05/18 01:45 Temperature Pulse Rate 88 87 84 Respiratory Rate Blood Pressure 127/63 136/61 130/63 Pulse Oximetry 97 95 96 02/05/18 02:00 02/05/18 02:15 02/05/18 02:30 Temperature Pulse Rate 85 88 86 Respiratory Rate Blood Pressure 137/65 129/63 136/64 Pulse Oximetry 96 96 97 02/05/18 02:45 02/05/18 03:00 02/05/18 03:15 Temperature Pulse Rate 90 88 82 Respiratory Rate Blood Pressure 146/66 H 144/68 H 117/63 Pulse Oximetry 97 97 96 02/05/18 03:30 02/05/18 03:45 02/05/18 03:47 Temperature Pulse Rate 82 81 Respiratory Rate 18 Blood Pressure 128/65 127/63 Pulse Oximetry 96 96 96 02/05/18 04:00 02/05/18 04:15 02/05/18 04:30 Temperature 98.3 F Pulse Rate 76 82 83 Respiratory Rate Blood Pressure 120/59 L 141/63 H 142/70 H Pulse Oximetry 97 96 96 02/05/18 04:45 02/05/18 05:00 02/05/18 05:15 Temperature Pulse Rate 81 83 86 Respiratory Rate Blood Pressure 136/60 132/63 Pulse Oximetry 96 96 93 L 02/05/18 05:30 02/05/18 05:45 02/05/18 06:00 Temperature Pulse Rate 82 82 78 Respiratory Rate Blood Pressure 135/58 L 125/57 L 110/55 L Pulse Oximetry 94 L 95 94 L 02/05/18 06:15 02/05/18 06:30 02/05/18 06:45 Temperature Pulse Rate 75 80 77 Respiratory Rate Blood Pressure 104/50 L 101/57 L 109/54 L Pulse Oximetry 95 95 95 02/05/18 07:00 02/05/18 08:00 02/05/18 08:19 Temperature 99.2 F Pulse Rate 76 80 Respiratory Rate 17 28 H 30 H Blood Pressure 113/54 L 140/65 Pulse Oximetry 95 95 95 02/05/18 09:00 02/05/18 10:00 02/05/18 11:00 Temperature 98.8 F Pulse Rate 82 87 90 Respiratory Rate 28 H 21 15 Blood Pressure 147/67 H 135/63 146/79 H Pulse Oximetry 93 L 94 L 94 L Intake & Output 02/04/18 02/05/18 02/05/18 18:59 06:59 18:59 Intake Total 1293 / 1293 1186 / 1186 100 / 100 Output Total 1680 / 1680 1310 / 1310 Balance -387 / -387 -124 / -124 100 / 100 Weight 78.5 kg Intake: IV 400 / 400 500 / 500 100 / 100 Lasix Inj 100 MG In NS Inj 90 100 / 100 ML @ 10 mls/hr IV.CONT .Q10H [facility] Rx#:[id number] Flexbumin 25% Inj 100 ML @ 60 100 / 100 100 / 100 mls/hr IV.SIG Q12H [facility] Rx#: [id number] Azactam Inj 1,000 MG In NS Inj 200 / 200 100 / 100 100 ML @ 200 mls/hr IV.SIG Q6H [facility] Rx#:[id number] Teflaro Inj 300 MG In NS Inj 100 / 100 100 / 100 100 ML @ 100 mls/hr IV.SIG Q12H [facility] Rx#:[id number] Mycamine Inj 150 MG In NS Inj 100 / 100 100 ML @ 100 mls/hr IV.SIG Q24H [facility] Rx#:[id number] KCl 40 mEq Premix Inj 40 meq In 100 / 100 100 ml @ 25 mls/hr IV.SIG ONCE ONE Rx#:[id number] Tube Feeding 773 / 773 586 / 586 Tube Irrigant 100 / 100 Water Bolus Amount 120 / 120 Output: Urine Amount (Catheter) 1650 / 1650 1300 / 1300 Indwelling Urethral Catheter 1650 / 1650 1300 / 1300 Gastric Drainage 0 / 0 Left Nare Nasogastric Tube 0 / 0 Chest Tube Drainage Right Other: Date of Last Bowel Movement 02/04/18 02/05/18 02/05/18 # Bowel Movements 2 # Incontinent Bowel Movements 1 Narrative: GENERAL: intubated patient. SKIN: Warm and dry. HEAD: Normocephalic. EYES: No scleral icterus. NECK: Supple, trachea midline. CARDIOVASCULAR: Irregular RESPIRATORY: Intubated, no accessory muscle use GASTROINTESTINAL: Abdomen soft, non-tender, EXTREMITIES: Shoulder bandage kevin edema present NEUROLOGICAL:intubated, - Urinary Catheter Management Condom Cath placed during this visit: no Indwelling Urethral Catheter Cath placed during this visit: yes Reason for continuing: Hourly intake/output Insertion date: 01/20/18 Insertion time: 11:30 Assessment and Plan - Assessment (1) Acute renal failure Code(s): N17.9 - Acute kidney failure, unspecified Status: Acute (2) Atrial fibrillation Code(s): I48.91 - Unspecified atrial fibrillation Status: Acute Qualifiers: Atrial fibrillation type: unspecified Qualified Code(s): I48.91 - Unspecified atrial fibrillation (3) Sepsis Code(s): A41.9 - Sepsis, unspecified organism Status: Acute Qualifiers: Sepsis type: methicillin resistant Staphylococcus aureus Qualified Code(s) : A41.02 - Sepsis due to Methicillin resistant Staphylococcus aureus - Plan Patient received Lasix two-point L of urine output yesterday and today dropped to 450 cc Patient creatinine is 2.2 Cultures followed, fever improved Good urine output 2.9 L, creatinine remains stable we will decrease the rate of Lasix to 3 mg/h Patient status post tracheostomy Edema is improved On potassium replacement
--- NOTE | 2018-02-05 14:50 | XR ---
EXAM DATE: 02/05/2018 2:34 PM EST AGE/SEX: 82 years / Male INDICATIONS: S/p tracheostomy. CLINICAL DATA: This is the patient's initial encounter. Patient reports that signs and symptoms have been present for 3 days and indicates a pain score of Nonresponsive. MEDICAL/SURGICAL HISTORY: Hypertension. Hypothyroidism. a-fib None. [place] [facility] [place]. . FINDINGS: A single AP semierect portable view the chest was obtained and demonstrates interval extubation and p lacement of tracheostomy tube. The nasogastric tube remains in place. There is a left internal jugula r central venous line again noted. There is a small bore right-sided chest tube in place. There is garcia zy perihilar and bibasilar opacities which appear mildly increased from the prior study. Both costoph renic angles appear blunted. The heart size remains prominent. CONCLUSION: 1. Interval extubation and placement of tracheostomy tube. 2. Hazy perihilar and bibasilar opacities which appear mildly increased from the prior study. Both c ostophrenic angles appear blunted consistent with small effusions. Electronically signed by: Ronnie Khalil MD 02/05/2018 2:48 PM EST
[2018-02-05] MEDS: DAPTOmycin Inj 800 MG in Sodium Chlor 0.9% Inj 100 ML IV.SIG SCH (15:38)
--- NOTE | 2018-02-05 18:31 | P.CONGI ---
History of Present Illness Consult date: 02/05/18 Consult reason: PEG tube placed Chief complaint: A-Fib, UTI, AMS History of Present Illness: This patient is an 82-year-old male with past medical history significant for atrial fibrillation, BPH, depression, hypertension, hypothyroidism and peptic ulcer disease. Patient also has history of GERD for which he takes pantoprazole 20 mg daily. Patient was brought to the emergency room at [facility] for evaluation of altered mental status. Previously, patient has recently returned from [place] where he was treated for 3 urinary tract infections over the last month and a half. Patient developed increasing confusion and weakness with inability to ambulate after receiving a flu shot while he was in [place]. Patient is currently intubated and mechanically ventilated, our service has been consulted for PEG tube placement. Review of Systems unobtainable due to endotracheal tube PMFSH - History History Provided By: Family Member - Medical History Medical History: Medical History (Last Reviewed 02/04/18 @ 07:26 by Elizabeth Velez) Atrial fibrillation History of MRSA infection Onset Date: ~01/14/18 BPH (benign prostatic hyperplasia) Depression HTN (hypertension) Hypothyroid PUD (peptic ulcer disease) - Surgical History Surgical History: Surgical History (Last Reviewed 02/04/18 @ 07:26 by Elizabeth Velez) H/O neck surgery - Family History Family History: Family History (Last Reviewed 01/30/18 @ 08:22 by Jeni Lazo) Other Family history normal - Tobacco History Second Hand Smoke Exposure: No Tobacco Use In Past 30 Days: No Smoking Status: Former smoker Tobacco Type: Cigars - Alcohol History How Often Do You Have a Drink Containing Alcohol: Never - Substance Use History Substance History: No History of Abuse - Travel History Recent Travel in the [place] Within the Last 8 Weeks: No Recent Travel Out of the Country Within the Last 8 Weeks: Yes - Immunization History Tetanus Immunization: Unsure Hx Influenza Vaccine This Season: Yes Medications and Allergies Active Medications: Active Medications Acetaminophen (Tylenol) 650 mg PO Q4H PRN PRN Reason: Temp > 100.4 Last Admin: 01/31/18 16:32 Dose: 650 mg Acetaminophen (Tylenol Liq) 650 mg PO Q6HR [facility] Last Admin: 02/05/18 14:14 Dose: 650 mg Hydrocodone Bitart/Acetaminophen ([place] 5/325) 1 tab PO Q4H PRN PRN Reason: PAIN LESS THAN 5 ON SCALE Last Admin: 02/01/18 21:06 Dose: 1 tab Hydrocodone Bitart/Acetaminophen ([place] 5/325) 2 tab PO Q6H PRN PRN Reason: PAIN SCALE 5 TO 10 Last Admin: 02/01/18 09:05 Dose: 2 tab Al Hydroxide/Mg Hydroxide (Milk Of Eduardo Saleem) 30 ml PO Q12H PRN PRN Reason: CONSTIPATION Albuterol (Duoneb Neb (Prn)) 1 ampul NEB Q2HR NEB PRN PRN Reason: WHEEZING Last Admin: 02/04/18 19:59 Dose: 1 ampul Amlodipine Besylate (Norvasc) 10 mg PO DAILY [facility] Last Admin: 01/30/18 10:40 Dose: 10 mg Bisacodyl (Dulcolax Supp) 10 mg RECTAL DAILY PRN PRN Reason: SEVERE CONSITIPATION Chlorhexidine Gluconate (Peridex 0.12% Oral Kit) 15 ml OROPHARYNG BID@0800, 2000 [facility] Last Admin: 02/05/18 08:45 Dose: 15 ml Citalopram Hydrobromide (Celexa) 20 mg PO DAILY [facility] Last Admin: 02/05/18 08:45 Dose: 20 mg Epinephrine (Racepinephrine 2.25% Neb) 0.5 ml NEB Q3HR NEB PRN PRN Reason: any upper airway noise or stri Hydralazine HCl (Apresoline Inj) 20 mg IV.PUSH Q4H PRN PRN Reason: SBP>160, DBP>90 Last Admin: 02/05/18 14:09 Dose: 20 mg Sodium Chloride (Ns Inj) 500 mls @ 30 mls/hr IV.SIG .Q10H [facility] Norepinephrine Bitartrate (Levophed-Dextrose 4 Mg/250 Ml Drip) 4 mg in 250 mls @ 7.5 mls/hr IV.SIG TITRATE PRN; Protocol PRN Reason: Per Protocol Last Titration: 02/05/18 14:50 Dose: 4 mcg/min, 15 mls/hr Ceftaroline Fosamil 300 mg/ (Sodium Chloride) 100 mls @ 100 mls/hr IV.SIG Q12H [facility] Last Infusion: 02/05/18 16:37 Dose: Infused Albumin Human (Flexbumin 25% Inj) 100 mls @ 60 mls/hr IV.SIG Q12H [facility] Last Infusion: 02/05/18 15:55 Dose: Infused Daptomycin 800 mg/ Sodium (Chloride) 100 mls @ 200 mls/hr IV.SIG Q48H [facility] Last Infusion: 02/05/18 16:08 Dose: Infused Furosemide 100 mg/ Sodium (Chloride) 100 mls @ 3 mls/hr IV.CONT .Q24H [facility] Last Admin: 02/05/18 02:01 Dose: 5 mls/hr Aztreonam 1,000 mg/ Sodium (Chloride) 100 mls @ 200 mls/hr IV.SIG Q6H [facility] Last Infusion: 02/05/18 15:03 Dose: Infused Micafungin Sodium 150 mg/ (Sodium Chloride) 100 mls @ 100 mls/hr IV.SIG Q24H [facility] Last Infusion: 02/04/18 23:37 Dose: Infused Lactulose (Lactulose Liq) 30 ml PO BID PRN PRN Reason: CONSTIPATION Levothyroxine Sodium (Synthroid) 100 mcg PO DAILY@0600 [facility] Last Admin: 02/05/18 05:26 Dose: 100 mcg Melatonin (Melatonin) 5 mg PO HS [facility] Last Admin: 02/04/18 20:00 Dose: 5 mg Metoprolol Tartrate (Lopressor) 12.5 mg PO BID [facility] Last Admin: 01/31/18 21:28 Dose: 12.5 mg Miscellaneous (Pill Splitter) 1 each OTHER UNSCH PRN PRN Reason: PILL SPIT Miscellaneous Medication () 1 each OROPHARYNG 0000,0400,1200,1600 [facility] Last Admin: 02/05/18 15:48 Dose: 1 each Morphine Sulfate (Morphine Inj) 1 mg IV.PUSH Q3H PRN PRN Reason: pain 1-10 when npo Ondansetron HCl (Zofran Inj) 4 mg IV.PUSH Q6H PRN PRN Reason: NAUSEA OR VOMITING Pantoprazole Sodium (Protonix Inj) 40 mg IV.PUSH DAILY [facility] Last Admin: 02/05/18 08:44 Dose: 40 mg Potassium Bicarbonate (Effer-K) 25 meq PO BID [facility] Last Admin: 02/05/18 09:59 Dose: 25 meq Senna/Docusate Sodium (Diana-Colace) 1 tab PO BID [facility] Last Admin: 02/05/18 08:46 Dose: Not Given Sennosides (Senokot) 17.2 mg PO Q12H PRN PRN Reason: Moderate Constipation Sodium Chloride (Ns Flush) 2 ml IV.FLUSH BID [facility] Last Admin: 02/05/18 08:46 Dose: 2 ml Sodium Chloride (Ns Flush) 2 ml IV.FLUSH PRN PRN PRN Reason: FLUSH AFTER USING IV ACCESS Last Admin: 02/03/18 20:13 Dose: 2 ml Tamsulosin HCl (Flomax) 0.4 mg PO DAILY [facility] Last Admin: 02/05/18 08:45 Dose: Not Given Terbutaline Sulfate (Brethine Inj) 1 mg SQ UNSCH PRN PRN Reason: For Extravasation Allergies Allergy/AdvReac Type Severity Reaction Status Date / Time amoxicillin Allergy Severe Hives Verified 01/13/18 20:44 Home Medications Medication Instructions Recorded Confirmed Type amlodipine 5 mg PO DAILY 01/13/18 01/13/18 History citalopram 20 mg PO DAILY 01/13/18 01/13/18 History levothyroxine [Synthroid] 100 mcg PO DAILY 01/13/18 01/13/18 History lisinopril 10 mg PO DAILY 01/13/18 01/13/18 History metoprolol succinate 50 mg PO DAILY 01/13/18 01/13/18 History pantoprazole 20 mg PO DAILY 01/13/18 01/13/18 History prednisone 40 mg PO DAILY 01/13/18 01/13/18 History tamsulosin [Flomax] 0.4 mg PO DAILY 01/13/18 01/13/18 History Exam Vital signs: Vital Signs 02/04/18 18:35 02/04/18 18:45 02/04/18 19:00 Temperature Pulse Rate 115 H 113 H 102 H Respiratory Rate Blood Pressure 120/67 Pulse Oximetry 95 95 96 02/04/18 19:12 02/04/18 19:15 02/04/18 19:20 Temperature Pulse Rate 102 H 98 H 93 H Respiratory Rate Blood Pressure 89/53 L 83/53 L 77/53 L Pulse Oximetry 96 96 96 02/04/18 19:22 02/04/18 19:30 02/04/18 19:45 Temperature Pulse Rate 92 H 103 H 103 H Respiratory Rate Blood Pressure 101/59 L 95/55 L 106/54 L Pulse Oximetry 96 97 96 02/04/18 19:59 02/04/18 20:00 02/04/18 20:15 Temperature 99.5 F Pulse Rate 105 H 107 H 103 H Respiratory Rate 15 Blood Pressure 126/57 L 132/61 Pulse Oximetry 96 96 97 02/04/18 20:30 02/04/18 20:45 02/04/18 21:00 Temperature Pulse Rate 101 H 97 H 96 H Respiratory Rate Blood Pressure 139/65 146/74 H 128/64 Pulse Oximetry 97 97 98 02/04/18 21:15 02/04/18 21:30 02/04/18 21:45 Temperature Pulse Rate 97 H 91 H 94 H Respiratory Rate Blood Pressure 124/58 L 122/60 133/61 Pulse Oximetry 95 98 98 02/04/18 22:00 02/04/18 22:15 02/04/18 22:30 Temperature Pulse Rate 92 H 94 H 92 H Respiratory Rate Blood Pressure 150/67 H 133/59 L 139/64 Pulse Oximetry 98 97 98 02/04/18 22:45 02/04/18 23:00 02/04/18 23:15 Temperature Pulse Rate 92 H 90 85 Respiratory Rate Blood Pressure 130/58 L 130/60 145/63 H Pulse Oximetry 97 97 97 02/04/18 23:30 02/04/18 23:39 02/04/18 23:45 Temperature Pulse Rate 88 87 Respiratory Rate 15 Blood Pressure 147/65 H 134/55 L Pulse Oximetry 95 97 96 02/05/18 00:00 02/05/18 00:12 02/05/18 00:15 Temperature 98.7 F 98.7 F Pulse Rate 89 82 82 Respiratory Rate Blood Pressure 119/57 L 99/55 L 91/54 L Pulse Oximetry 97 96 95 02/05/18 00:26 02/05/18 00:30 02/05/18 00:45 Temperature Pulse Rate 84 86 88 Respiratory Rate Blood Pressure 125/60 115/57 L 111/59 L Pulse Oximetry 97 96 96 02/05/18 01:00 02/05/18 01:15 02/05/18 01:30 Temperature Pulse Rate 85 88 87 Respiratory Rate Blood Pressure 119/60 127/63 136/61 Pulse Oximetry 96 97 95 02/05/18 01:45 02/05/18 02:00 02/05/18 02:15 Temperature Pulse Rate 84 85 88 Respiratory Rate Blood Pressure 130/63 137/65 129/63 Pulse Oximetry 96 96 96 02/05/18 02:30 02/05/18 02:45 02/05/18 03:00 Temperature Pulse Rate 86 90 88 Respiratory Rate Blood Pressure 136/64 146/66 H 144/68 H Pulse Oximetry 97 97 97 02/05/18 03:15 02/05/18 03:30 02/05/18 03:45 Temperature Pulse Rate 82 82 81 Respiratory Rate Blood Pressure 117/63 128/65 127/63 Pulse Oximetry 96 96 96 02/05/18 03:47 02/05/18 04:00 02/05/18 04:15 Temperature 98.3 F Pulse Rate 76 82 Respiratory Rate 18 Blood Pressure 120/59 L 141/63 H Pulse Oximetry 96 97 96 02/05/18 04:30 02/05/18 04:45 02/05/18 05:00 Temperature Pulse Rate 83 81 83 Respiratory Rate Blood Pressure 142/70 H 136/60 132/63 Pulse Oximetry 96 96 96 02/05/18 05:15 02/05/18 05:30 02/05/18 05:45 Temperature Pulse Rate 86 82 82 Respiratory Rate Blood Pressure 135/58 L 125/57 L Pulse Oximetry 93 L 94 L 95 02/05/18 06:00 02/05/18 06:15 02/05/18 06:30 Temperature Pulse Rate 78 75 80 Respiratory Rate Blood Pressure 110/55 L 104/50 L 101/57 L Pulse Oximetry 94 L 95 95 02/05/18 06:45 02/05/18 07:00 02/05/18 08:00 Temperature 99.2 F Pulse Rate 77 76 80 Respiratory Rate 17 28 H Blood Pressure 109/54 L 113/54 L 140/65 Pulse Oximetry 95 95 95 02/05/18 08:19 02/05/18 09:00 02/05/18 10:00 Temperature 98.8 F Pulse Rate 82 87 Respiratory Rate 30 H 28 H 21 Blood Pressure 147/67 H 135/63 Pulse Oximetry 95 93 L 94 L 02/05/18 11:00 02/05/18 12:00 02/05/18 12:08 Temperature 99.8 F H Pulse Rate 90 92 H Respiratory Rate 15 16 18 Blood Pressure 146/79 H Pulse Oximetry 94 L 96 94 L 02/05/18 13:00 12/12/18 13:15 02/05/18 13:30 Temperature Pulse Rate 89 87 128 H Respiratory Rate 16 14 Blood Pressure 97/51 L Pulse Oximetry 96 97 94 L 02/05/18 13:45 02/05/18 14:00 02/05/18 14:15 Temperature 100 F H Pulse Rate 116 H 120 H 127 H Respiratory Rate Blood Pressure 174/72 H 208/84 H 166/74 H Pulse Oximetry 97 99 02/05/18 14:30 02/05/18 14:45 02/05/18 15:00 Temperature Pulse Rate 136 H 119 H 147 H Respiratory Rate 16 Blood Pressure 166/74 H Pulse Oximetry 97 95 96 02/05/18 15:15 02/05/18 15:30 02/05/18 15:45 Temperature Pulse Rate 134 H 140 H 131 H Respiratory Rate Blood Pressure 131/60 Pulse Oximetry 95 95 95 02/05/18 16:00 02/05/18 16:06 Temperature 100.1 F H Pulse Rate 126 H Respiratory Rate 14 Blood Pressure Pulse Oximetry 94 L 95 Intake & Output 02/04/18 02/05/18 02/05/18 18:59 06:59 18:59 Intake Total 1293 / 1293 1186 / 1186 1031 / 1031 Output Total 1680 / 1680 1310 / 1310 1265 / 1265 Balance -387 / -387 -124 / -124 -234 / -234 Weight 78.5 kg Intake: IV 400 / 400 500 / 500 500 / 500 Lasix Inj 100 MG In NS Inj 90 100 / 100 ML @ 10 mls/hr IV.CONT .Q10H [facility] Rx#:[id number] Flexbumin 25% Inj 100 ML @ 60 100 / 100 100 / 100 100 / 100 mls/hr IV.SIG Q12H [facility] Rx#: [id number] Azactam Inj 1,000 MG In NS Inj 200 / 200 200 / 200 100 ML @ 200 mls/hr IV.SIG Q6H [facility] Rx#:[id number] Teflaro Inj 300 MG In NS Inj 100 / 100 100 / 100 100 / 100 100 ML @ 100 mls/hr IV.SIG Q12H [facility] Rx#:[id number] Cubicin Inj 800 MG In NS Inj 100 / 100 100 ML @ 200 mls/hr IV.SIG Q48H [facility] Rx#:[id number] Mycamine Inj 150 MG In NS Inj 100 / 100 100 ML @ 100 mls/hr IV.SIG Q24H [facility] Rx#:[id number] KCl 40 mEq Premix Inj 40 meq In 100 / 100 100 ml @ 25 mls/hr IV.SIG ONCE ONE Rx#:[id number] Tube Feeding 773 / 773 586 / 586 411 / 411 Tube Irrigant 100 / 100 Water Bolus Amount 120 / 120 120 / 120 Output: Urine Amount (Catheter) 1650 / 1650 1300 / 1300 1225 / 1225 Indwelling Urethral Catheter 1650 / 1650 1300 / 1300 1225 / 1225 Gastric Drainage 0 / 0 0 / 0 Left Nare Nasogastric Tube 0 / 0 0 / 0 Chest Tube Drainage 40 Right 40 Other: Date of Last Bowel Movement 02/04/18 02/05/18 02/05/18 # Bowel Movements 2 2 # Incontinent Bowel Movements 1 - Constitutional chronically ill appearing Comments: Intubated and mechanically ventilated - Routine HEENT Exam Head: Present: normocephalic - Routine Respiratory Exam Present: patient mechanically ventilated - Routine Cardiovascular Exam Present: RRR - Routine Abdominal Exam Present: soft, normoactive bowel sounds. Absent: tenderness, distended, firm - Routine Skin Exam Present: dry, warm Results - Labs CBC & Chem 7: 02/05/18 05:35 02/05/18 05:35 Labs: Laboratory Results - last 24 hr 02/04/18 02/04/18 02/05/18 19:35 19:35 05:35 WBC RBC Hgb Hct MCV MCH MCHC RDW Plt Count MPV Neut % (Auto) Lymph % (Auto) [place] % (Auto) Eos % (Auto) Baso % (Auto) Neut # (Auto) Lymph # (Auto) [place] # (Auto) Eos # (Auto) Baso # (Auto) WBC Differential Differential Comment Sodium 139 Potassium 3.5 Chloride 105 Carbon Dioxide 23.3 Anion Gap 11 BUN 69 H Creatinine 2.29 H Estimated GFR 28 L Random Glucose 141 H Calcium 8.7 Total Bilirubin 1.9 H AST 18 ALT 18 Alkaline Phosphatase 466 H Total Creatine Kinase 9 L Total Protein 5.7 L Albumin 2.7 L Procalcitonin 1.02 H Stl C.difficile DNA Amp St C. diff Tox Epid 027 02/05/18 02/05/18 02/05/18 05:35 12:35 13:03 WBC 7.5 RBC 2.71 L Hgb 7.5 L Hct 22.0 L MCV 81.0 MCH 27.7 MCHC 34.1 RDW 20.6 H Plt Count 225 MPV 9.4 Neut % (Auto) 84.5 H Lymph % (Auto) 8.5 L [place] % (Auto) 3.8 Eos % (Auto) 2.9 Baso % (Auto) 0.3 Neut # (Auto) 6.3 Lymph # (Auto) 0.6 L [place] # (Auto) 0.3 Eos # (Auto) 0.2 Baso # (Auto) 0.0 WBC Differential . Differential Comment Auto diff final Sodium Potassium Chloride Carbon Dioxide Anion Gap BUN Creatinine Estimated GFR Random Glucose Calcium Total Bilirubin AST ALT Alkaline Phosphatase Total Creatine Kinase Total Protein Albumin Procalcitonin 0.78 H Stl C.difficile DNA Amp Negative St C. diff Tox Epid 027 Negative - Imaging Impressions Chest X-Ray 02/05/18 13:52 CONCLUSION: 1. Interval extubation and placement of tracheostomy tube. 2. Hazy perihilar and bibasilar opacities which appear mildly increased from the prior study. Both costophrenic angles appear blunted consistent with small effusions. Assessment and Plan - Plan This patient is an 82-year-old male with past medical history significant for atrial fibrillation, BPH, depression, hypertension, hypothyroidism and peptic ulcer disease. Patient also has history of GERD for which he takes pantoprazole 20 mg daily. Patient was brought to the emergency room at [facility] for evaluation of altered mental status. Previously, patient has recently returned from [place] where he was treated for 3 urinary tract infections over the last month and a half. Patient developed increasing confusion and weakness with inability to ambulate after receiving a flu shot while he was in [place]. Patient is currently intubated and mechanically ventilated, our service has been consulted for PEG tube placement. PEG tube placement Our service has been consulted to evaluate patient for PEG tube placement. Patient is currently intubated and mechanically ventilated. Presented to the emergency room for evaluation of altered mental status and generalized weakness. Patient treated for sepsis. Patient currently receiving aztreonam, ceftaroline, daptomycin and micafungin. WBC 7.5 hemoglobin 7.5 hematocrit 22.0 INR 1.2 total bilirubin 1.9 AST 18 ALT 18 alk phos 466 Plan Tube feedings off at midnight Obtain consent for PEG tube placement/EGD INR within normal limits Patient currently on IV antibiotics Tube feedings as per dietary recommendation Further recommendations to follow Supportive care This patient has been seen by myself and Dr. Lawrence and this note is written on his behalf - Attending Attestation Dr. Lawrence
[2018-02-05] MEDS ORDERED: Gelatin 12 MM/7 MM Topical Foam ONE ×2 (18:40→18:48)
[2018-02-05] MEDS: Melatonin 5 MG Tablet PO SCH (22:14)
[2018-02-05] MEDS: Micafungin Inj 150 MG in Sodium Chlor 0.9% Inj 100 ML IV.SIG SCH (22:15)
--- NOTE | 2018-02-05 22:32 | P.PNNS ---
Physical Exam Vital signs: Vital Signs 02/04/18 22:45 02/04/18 23:00 02/04/18 23:15 Temperature Pulse Rate 92 H 90 85 Respiratory Rate Blood Pressure 130/58 L 130/60 145/63 H Pulse Oximetry 97 97 97 02/04/18 23:30 02/04/18 23:39 02/04/18 23:45 Temperature Pulse Rate 88 87 Respiratory Rate 15 Blood Pressure 147/65 H 134/55 L Pulse Oximetry 95 97 96 02/05/18 00:00 02/05/18 00:12 02/05/18 00:15 Temperature 98.7 F 98.7 F Pulse Rate 89 82 82 Respiratory Rate Blood Pressure 119/57 L 99/55 L 91/54 L Pulse Oximetry 97 96 95 02/05/18 00:26 02/05/18 00:30 02/05/18 00:45 Temperature Pulse Rate 84 86 88 Respiratory Rate Blood Pressure 125/60 115/57 L 111/59 L Pulse Oximetry 97 96 96 02/05/18 01:00 02/05/18 01:15 02/05/18 01:30 Temperature Pulse Rate 85 88 87 Respiratory Rate Blood Pressure 119/60 127/63 136/61 Pulse Oximetry 96 97 95 02/05/18 01:45 02/05/18 02:00 02/05/18 02:15 Temperature Pulse Rate 84 85 88 Respiratory Rate Blood Pressure 130/63 137/65 129/63 Pulse Oximetry 96 96 96 02/05/18 02:30 02/05/18 02:45 02/05/18 03:00 Temperature Pulse Rate 86 90 88 Respiratory Rate Blood Pressure 136/64 146/66 H 144/68 H Pulse Oximetry 97 97 97 02/05/18 03:15 02/05/18 03:30 02/05/18 03:45 Temperature Pulse Rate 82 82 81 Respiratory Rate Blood Pressure 117/63 128/65 127/63 Pulse Oximetry 96 96 96 02/05/18 03:47 02/05/18 04:00 02/05/18 04:15 Temperature 98.3 F Pulse Rate 76 82 Respiratory Rate 18 Blood Pressure 120/59 L 141/63 H Pulse Oximetry 96 97 96 02/05/18 04:30 02/05/18 04:45 02/05/18 05:00 Temperature Pulse Rate 83 81 83 Respiratory Rate Blood Pressure 142/70 H 136/60 132/63 Pulse Oximetry 96 96 96 02/05/18 05:15 02/05/18 05:30 02/05/18 05:45 Temperature Pulse Rate 86 82 82 Respiratory Rate Blood Pressure 135/58 L 125/57 L Pulse Oximetry 93 L 94 L 95 02/05/18 06:00 02/05/18 06:15 02/05/18 06:30 Temperature Pulse Rate 78 75 80 Respiratory Rate Blood Pressure 110/55 L 104/50 L 101/57 L Pulse Oximetry 94 L 95 95 02/05/18 06:45 02/05/18 07:00 02/05/18 08:00 Temperature 99.2 F Pulse Rate 77 76 80 Respiratory Rate 17 28 H Blood Pressure 109/54 L 113/54 L 140/65 Pulse Oximetry 95 95 95 02/05/18 08:19 02/05/18 09:00 02/05/18 10:00 Temperature 98.8 F Pulse Rate 82 87 Respiratory Rate 30 H 28 H 21 Blood Pressure 147/67 H 135/63 Pulse Oximetry 95 93 L 94 L 02/05/18 11:00 02/05/18 12:00 02/05/18 12:08 Temperature 99.8 F H Pulse Rate 90 92 H Respiratory Rate 15 16 18 Blood Pressure 146/79 H Pulse Oximetry 94 L 96 94 L 02/05/18 13:00 02/05/18 13:15 02/05/18 13:30 Temperature Pulse Rate 89 87 128 H Respiratory Rate 16 14 Blood Pressure 97/51 L Pulse Oximetry 96 97 94 L 02/05/18 13:45 02/05/18 14:00 02/05/18 14:15 Temperature 100 F H Pulse Rate 116 H 120 H 127 H Respiratory Rate Blood Pressure 174/72 H 208/84 H 166/74 H Pulse Oximetry 97 99 02/05/18 14:30 02/05/18 14:45 02/05/18 15:00 Temperature Pulse Rate 136 H 119 H 147 H Respiratory Rate 16 Blood Pressure 166/74 H Pulse Oximetry 97 95 96 02/05/18 15:15 02/05/18 15:30 02/05/18 15:45 Temperature Pulse Rate 134 H 140 H 131 H Respiratory Rate Blood Pressure 131/60 Pulse Oximetry 95 95 95 02/05/18 16:00 02/05/18 16:06 02/05/18 16:15 Temperature 100.1 F H Pulse Rate 126 H 130 H Respiratory Rate 14 Blood Pressure Pulse Oximetry 94 L 95 93 L 02/05/18 16:30 02/05/18 16:45 02/05/18 17:00 Temperature Pulse Rate 130 H 125 H 121 H Respiratory Rate 16 Blood Pressure Pulse Oximetry 94 L 95 94 L 02/05/18 17:15 02/05/18 17:30 02/05/18 17:45 Temperature Pulse Rate 115 H 112 H 107 H Respiratory Rate Blood Pressure Pulse Oximetry 95 94 L 96 02/05/18 18:00 02/05/18 18:15 02/05/18 18:30 Temperature 99.3 F Pulse Rate 101 H 101 H 99 H Respiratory Rate Blood Pressure Pulse Oximetry 95 96 97 02/05/18 18:45 02/05/18 19:00 02/05/18 19:03 Temperature Pulse Rate 100 H 105 H 89 Respiratory Rate 20 Blood Pressure 93/55 L Pulse Oximetry 96 95 95 02/05/18 19:23 Temperature Pulse Rate Respiratory Rate 16 Blood Pressure Pulse Oximetry 95 Intake & Output 02/05/18 02/05/18 02/06/18 06:59 18:59 06:59 Intake Total 1186 / 1186 1031 / 1031 Output Total 1310 / 1310 1265 / 1265 Balance -124 / -124 -234 / -234 Weight 78.5 kg Intake: IV 500 / 500 500 / 500 Flexbumin 25% Inj 100 ML @ 60 100 / 100 100 / 100 mls/hr IV.SIG Q12H [facility] Rx#: [id number] Azactam Inj 1,000 MG In NS Inj 200 / 200 200 / 200 100 ML @ 200 mls/hr IV.SIG Q6H [facility] Rx#:[id number] Teflaro Inj 300 MG In NS Inj 100 / 100 100 / 100 100 ML @ 100 mls/hr IV.SIG Q12H [facility] Rx#:[id number] Cubicin Inj 800 MG In NS Inj 100 / 100 100 ML @ 200 mls/hr IV.SIG Q48H [facility] Rx#:[id number] Mycamine Inj 150 MG In NS Inj 100 / 100 100 ML @ 100 mls/hr IV.SIG Q24H [facility] Rx#:[id number] Tube Feeding 586 / 586 411 / 411 Tube Irrigant 100 / 100 Water Bolus Amount 120 / 120 Output: Urine Amount (Catheter) 1300 / 1300 1225 / 1225 Indwelling Urethral Catheter 1300 / 1300 1225 / 1225 Gastric Drainage 0 / 0 Left Nare Nasogastric Tube 0 / 0 Chest Tube Drainage 40 / 40 Right 40 / 40 Other: Date of Last Bowel Movement 02/05/18 02/05/18 # Bowel Movements 2 # Incontinent Bowel Movements 1 - Urinary Catheter Management Condom Cath placed during this visit: no Indwelling Urethral Catheter Cath placed during this visit: yes Reason for continuing: Hourly intake/output Insertion date: 01/20/18 Insertion time: 11:30 Assessment and Plan - Plan THIS NOTE REPRESENTS MY ENCOUNTER ON 01/31/18 DURING ROUNDS Neuro. Continue neuro checks. Acute combined hypercapnic and hypoxemic respiratory failure on mechanical ventilation, CPAP trials today He underwent right-sided pigtail catheter placement by IR yesterday with drainage of about 800 cc of pleural fluid -Bronchodilators -diuresed to mobilize fluid -Scott required for BPH as well as diuresis May need further bronchoscopy. Follow-up chest x-ray -Continue mechanical ventilation, vent bundle. Added Mucomyst to mobilize secretions. -Frequent suctioning required MRSA septicemia, septic right shoulder, L spine possible osteomyelitis, left supraclavicular abscess Right shoulder effusion. septic right shoulder, s/p I&D Urinary tract infection. Left Supraclavicular abscess, CT reviewed, showed abscess extending to posterior thorax He was taken to surgery yesterday for bilateral shoulder collections under general anesthesia, tolerated procedure Blood cultures positive for MRSA. 2D echocardiogram did not show any findings consistent with vegetations. Continue vancomycin, Levaquin, meropenem per ID. Patient also had a right shoulder effusion, orthopedics aspirated the shoulder - approximately 30 cc of purulent fluid. Orthopedics planning OR for drainage ob bilateral shoulder collections on 01/29 Continue IV antibiotics per infectious disease recommendations. Infectious disease following repeat blood cultures ntd KEKE on CKD. Being diuresed, Strict I/O, monitor/ replete electrolytes, follow BUN/ Cr Nephrology following, appreciate recs. Significant fluid removal with diuresis but creatinine increased. Fluid balance appears about the right today 01/25, but mild prerenal azotemia noted Worsening prerenal azotemia Atrial Fibrillation, permanent Dr. Garner following Rate well controlled. old antihypertensives. On 01/23 ordered Levophed for pressor support to keep MAP greater than 65mm Hg however has not required pressors. Hold off on further diuresis due to rising creatinine. Start Lopressor 12 and half milligrams twice daily ANEMIA: TRANSFUSED 1u prbc Protein calorie malnutrition: very low albumin, will check prealbumin. Will add ensure with meals. 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 BPH - Continue Flomax. Endocrine: Continue to Monitor serial Acu checks and SSI as needed in detail Continue Protonix for stress ulcer prophylaxis Continue Randolph hose and SCD's for DVT prophylaxis. Lovenox Further recommendations will be provided depending on the patient's clinical evaluation and follow up
[2018-02-06] MEDS: Oral Hygiene Kit OROPHARYNG SCH ×5 (00:15→23:25)
[2018-02-06 00:32] LABS: Baso % (Auto) 0.4 % (0.0-2.0); Eos # (Auto) 0.3 th/mm3 (0.0-0.4); Eos % (Auto) 3.7 % (0.0-4.0); Hematocrit 21.2 % (39.0-51.0); Lymph # (Auto) 0.6 th/mm3 (1.0-4.8); Lymph % (Auto) 7.5 % (9.0-44.0); Mean Corpuscular HGB Conc 33.2 % (32.0-36.0); Mean Corpuscular Hemoglobin 27.1 pg (27.0-34.0); Mean Corpuscular Volume 81.6 fL (80.0-100.0); Mean Platelet Volume 9.5 fL (7.0-11.0); Mono # (Auto) 0.3 th/mm3 (0.0-0.9); Mono % (Auto) 4.3 % (0.0-8.0); Neut # (Auto) 6.8 th/mm3 (1.8-7.7); Neut % (Auto) 84.1 % (16.0-70.0); Platelet Count 254 th/mm3 (150-450); Red Cell Distribution Width 20.5 % (11.6-17.2)
[2018-02-06 00:48] LABS: Alanine Aminotransferase 22 U/L (12-78); Albumin 2.5 g/dL (3.4-5.0); Anion Gap 10 meq/L (5-15); Aspartate Aminotransferase 20 U/L (15-37); Blood Urea Nitrogen 73 mg/dL (7-18); Calcium 8.4 mg/dL (8.5-10.1); Carbon Dioxide 25.2 meq/L (21.0-32.0); Chloride 104 meq/L (98-107); Glomerular Filtration Rate 27 mL/min (>89); Glucose,Random 152 mg/dL (74-106); Potassium 3.6 meq/L (3.5-5.1); Sodium 139 meq/L (136-145)
[2018-02-06 00:50] LABS: Alkaline Phosphatase 538 U/L (45-117); Total Protein 5.4 g/dL (6.4-8.2)
[2018-02-06] MEDS ORDERED: Gelatin 12 MM/7 MM Topical Foam ONE ×2 (01:13→01:21)
[2018-02-06] MEDS ORDERED: Gelatin 12 MM/7 MM Topical Foam TOPICAL SCH (01:30)
[2018-02-06] MEDS: Furosemide Inj 100 MG in Sodium Chlor 0.9% Inj 90 ML IV.CONT SCH ×2 (03:56→06:05)
[2018-02-06] MEDS: Ceftaroline Inj 300 MG in Sodium Chlor 0.9% Inj 100 ML IV.SIG SCH ×2 (03:59→15:03)
[2018-02-06] MEDS: Albumin Human 25% Inj 100 ML IV.SIG SCH ×2 (03:59→15:03)
[2018-02-06] MEDS ORDERED: Desmopressin Inj 20 MCG in Sodium Chlor 0.9% Inj 50 ML IV.SIG ONE (04:59)
[2018-02-06] MEDS: Levothyroxine 100 MCG Tablet PO SCH (05:39)
[2018-02-06 05:45] LABS: Hematocrit 25.7 % (39.0-51.0); Hemoglobin 8.5 gm/dL (13.0-17.0)
[2018-02-06] MEDS ORDERED: fentaNYL Citrate Inj 100 MCG/2 ML Ampul IV.PUSH ONE (06:22)
[2018-02-06] MEDS ORDERED: Midazolam Inj 5 MG/ML 5 ML Vial IV.PUSH ONE (06:22)
[2018-02-06] MEDS ORDERED: Midazolam Inj 5 MG/ML 1 ML Vial ONE (06:32)
[2018-02-06] MEDS ORDERED: fentaNYL Citrate Inj 100 MCG/2 ML Ampul ONE (06:32)
--- NOTE | 2018-02-06 07:29 | P.PCN ---
Date of procedure: 02/06/18 Procedure: Diagnosis: Diana-stomal bleeding, neck Procedure: Suture ligation skin edge bleeding site Narrative: Timeout performed. Patient properly identified. The patient has developed nuisance bleeding from around the fresh tracheostomy site. Coagulation profile is normal but the skin edge bleeding continues despite the use of topical coagulation agents. I described to the daughter that we would need to repair this surgically. She consented and understands that it may involve removing the trach tube and reintubating orally for a brief period. The patient is on mechanical ventilation using assist control mode in the usual ICU monitoring devices are in place. The patient was sedated with Versed 5 mg, fentanyl 50 mg, and rocuronium 50 mg was used as relaxant. Sutures were removed from the old tracheostomy tube and upon lifting the tube it became apparent that a specific skin edge site was responsible for the bleeding. This was suture ligated with a [id number] 3-0 Ethilon nylon suture. There was no problematic oozing or other signs of bleeding. Because of the frailty of his skin I chose not to replace sutures in the tracheostomy flange but rather to use the trach ties to secure the device in place. It was not necessary to remove the tracheostomy tube to complete this procedure. Ventilation was continued throughout the procedure using the indwelling tracheostomy tube. I spoke to the daughter of the patient after the procedure in the waiting area.
--- NOTE | 2018-02-06 07:46 | P.PNCC ---
Subjective Subjective Remarks/Hospital Course: This 82-year-old gentleman was transferred emergently from the floor to the surgical intensive care unit because of rapid onset combined hypoxemic and hypercapnic respiratory failure. On arrival he has diffuse crackles throughout both lung santizo and his neck veins are distended. On admission several days ago he was dehydrated and had an element of acute kidney injury. His weight is up about 5 kg since admission though his renal function has improved. On arrival he is breathing 40 times a minute on a nonrebreathing mask with pH of 7.18 and P CO2 of 74. His acidosis is purely respiratory and associated with bronchospasm from fluid overload. B natruretic peptide is elevated to greater than 2000. Other pertinent major problems include septic joint drainage and treatment. 01/22: Critical care reconsulted for worsening resp status. On BIPAP with fulkl face mask. CXR with bilat infiltrates/ pulm edema. Reaccumulated rt shoulder collection. After d/w family proceeded with intubation and placed patient on [facility] ventilation. Placed central line. D/W Dr. Mani Sherman who is arranging US guided drainage/ drain placement for shoulder collection. 01/23: Remains sedated, orally intubated on mechanical ventilation. Significant diuresis with 11 L negative over the last 3 days. Awaiting left shoulder percutaneous drainage of collection by interventional radiology today. 1 unit PRBCs ordered as patient has borderline blood pressures with hemoglobin less than 8. 01/24: Sedated, arousable, orally intubated on mechanical ventilation. Tolerating tube feeds. s/p [id number] drain placement in rt shoulder fluid collection on 01/23. 01/25: He had a good trial on spontaneous breathing yesterday. Mechanical ventilation overnight. Started on spontaneous breathing trial this morning at 12/5 and volumes were small. Increased to 15/8 and volumes looked better with each breath. Still producing lots of thick secretions, dark yellow. Unable to extubate due to general weakness and inability to cough numerous secretions. FiO2 reduced to 40% and gas exchange good. Clearly improved respiratory function from yesterday. Tolerating tube feeds well, gastric residuals minimal , remains constipated and will start on milk of magnesia and. 01/26: Right lower lobe nicely reexpanded after 24 hours on APRV. FI02 reduced to 30%. More alert today, will attempt to extubate. Worsening azotemia appears to be prerenal. We will need to give some volume back. General strength and alertness has improved. 01/27: On BiPAP since last evening. Appears comfortable with 100% O2 sat. Awake and alert. On tube feeds via NG tube 01/28: Resting comfortably, On BIPAP overnight. Tolerating facemask during day prn. Tolerating tube feeds. Hgb 7.1 today, 1 unit PRBCs ordered. 01/29: Was on nasal cannula all day. Last night developed worsening respiratory status and tachypnea for which he was placed on BiPAP. Remains on BiPAP this morning and appears comfortable. Chest x-ray this morning shows haziness over right lung field with probable pulmonary edema versus infiltrate. 01/30: Surgery yesterday for bilateral shoulder collections under general anesthesia, tolerated procedure well was subsequently transferred back to the ICU and kept orally intubated on mechanical ventilation overnight. CT chest done yesterday revealed bilateral pleural effusions right greater than left for which CT- guided thoracentesis with pigtail catheter placement being scheduled with IR. 01/31: Remains sedated, orally intubated on mechanical ventilation. Underwent right-sided pigtail catheter placement by IR yesterday with drainage of about 800 cc of pleural fluid. Tolerating tube feeds. Planning CPAP trials today. Evaluated by Dr. Macias from pulmonary yesterday 02/01: Remains sedated, orally intubated on mechanical ventilation. On Levophed 1.5 mics per minute. Blood pressure labile, currently 140s. Significant oral secretions however ET tube with minimal secretions overnight. Tolerating tube feeds. New left IJ central line placed on 01/31 and right IJ central line removed. 02/02: Remains intubated more awake currently on 2 mics of Levophed to maintain map above 65. Patient is able to follow commands even though weak. Urine output of approximately 1200 mL in 24 hours, chest tube output 50 mL. Family is at the bedside 02/03: No acute events reported overnight. Patient remains very lethargic and weak. Tolerated CPAP intermittently yesterday. Remains on IV Lasix to mobilize fluid. Urine output 1.5 L in 24 hours. Creatinine slightly increased to 2.16, however patient is grossly fluid positive. Will continue with diuresis. Son at the bedside updated today. Because of generalized weakness it is recommended patient get a tracheostomy for safe ventilator weaning and to facilitate aggressive physical therapy 02/04: Remains off sedation today. Slightly more awake weakly follows commands x4. He does respond to track more today. Remains quite weak though. Urine output improved with Lasix drip. 2.5 L output in 24 hours, however creatinine increased to 2.26. Nephrology following 02/05: On spontaneous breathing trial this morning with pressure support of 12 spontaneous tidal volumes are around 290 and he attempts to low rate results and tachypnea greater than 35/min and tidal volume less than 200. He has been extubated unsuccessfully several times and continues to fatigue during attempts to reduce pressure support. He remains alert and cooperative and well likely be weaned from mechanical ventilation eventually but at this point he really needs a tracheostomy so we can accomplish better mobilization and more realistic intermittent ventilatory support during his final stages of weaning. [facility] has agreed [facility]term ventilator weaning. 02/06: Nuisance bleeding from fresh tracheostomy skin edge required single suture this morning. Coagulation studies are normal and platelets are normal. No evidence of any coagulation problems observed, patient made clot quite readily. Renal function remains about the same. Plan for PEG tube insertion and subsequent transfer to [facility]. Objective Vital Signs / I&O: Vital Signs 02/05/18 08:00 02/05/18 08:19 02/05/18 09:00 Temperature 99.2 F Pulse Rate 80 82 Respiratory Rate 28 H 30 H 28 H Blood Pressure 140/65 147/67 H Pulse Oximetry 95 95 93 L 02/05/18 10:00 02/05/18 11:00 02/05/18 12:00 Temperature 98.8 F 99.8 F H Pulse Rate 87 90 92 H Respiratory Rate 21 15 16 Blood Pressure 135/63 146/79 H Pulse Oximetry 94 L 94 L 96 02/05/18 12:08 02/05/18 13:00 02/05/18 13:15 Temperature Pulse Rate 89 87 Respiratory Rate 18 16 14 Blood Pressure 97/51 L Pulse Oximetry 94 L 96 97 02/05/18 13:30 02/05/18 13:45 02/05/18 14:00 Temperature 100 F H Pulse Rate 128 H 116 H 120 H Respiratory Rate Blood Pressure 174/72 H 208/84 H Pulse Oximetry 94 L 97 02/05/18 14:15 02/05/18 14:30 02/05/18 14:45 Temperature Pulse Rate 127 H 136 H 119 H Respiratory Rate Blood Pressure 166/74 H 166/74 H Pulse Oximetry 99 97 95 02/05/18 15:00 02/05/18 15:15 02/05/18 15:30 Temperature Pulse Rate 147 H 134 H 140 H Respiratory Rate 16 Blood Pressure Pulse Oximetry 96 95 95 02/05/18 15:45 02/05/18 16:00 02/05/18 16:06 Temperature 100.1 F H Pulse Rate 131 H 126 H Respiratory Rate 14 Blood Pressure 131/60 Pulse Oximetry 95 94 L 95 02/05/18 16:15 02/05/18 16:30 02/05/18 16:45 Temperature Pulse Rate 130 H 130 H 125 H Respiratory Rate Blood Pressure Pulse Oximetry 93 L 94 L 95 02/05/18 17:00 02/05/18 17:15 02/05/18 17:30 Temperature Pulse Rate 121 H 115 H 112 H Respiratory Rate 16 Blood Pressure Pulse Oximetry 94 L 95 94 L 02/05/18 17:45 02/05/18 18:00 02/05/18 18:15 Temperature 99.3 F Pulse Rate 107 H 101 H 101 H Respiratory Rate Blood Pressure Pulse Oximetry 96 95 96 02/05/18 18:30 02/05/18 18:45 02/05/18 19:00 Temperature Pulse Rate 99 H 100 H 105 H Respiratory Rate 20 Blood Pressure Pulse Oximetry 97 96 95 02/05/18 19:03 02/05/18 19:23 02/05/18 20:00 Temperature Pulse Rate 89 96 H Respiratory Rate 16 Blood Pressure 93/55 L Pulse Oximetry 95 95 02/06/18 00:00 02/06/18 01:00 02/06/18 01:20 Temperature 98.8 F Pulse Rate 96 H 102 H Respiratory Rate 15 14 14 Blood Pressure 125/58 L 143/73 H Pulse Oximetry 95 95 93 L 02/06/18 02:00 02/06/18 02:51 02/06/18 03:00 Temperature 98.5 F Pulse Rate 106 H 102 H 109 H Respiratory Rate 14 15 15 Blood Pressure 148/71 H 159/68 H Pulse Oximetry 96 96 95 02/06/18 03:10 02/06/18 04:00 02/06/18 04:24 Temperature Pulse Rate 101 H 106 H Respiratory Rate 14 16 18 Blood Pressure 164/70 H Pulse Oximetry 96 96 02/06/18 05:00 02/06/18 06:00 02/06/18 06:30 Temperature Pulse Rate 96 H 97 H 93 H Respiratory Rate 14 14 14 Blood Pressure 138/63 115/57 L 131/62 Pulse Oximetry 96 95 95 02/06/18 06:45 02/06/18 06:50 Temperature Pulse Rate 98 H Respiratory Rate 15 Blood Pressure 113/54 L Pulse Oximetry 95 100 Intake & Output 02/05/18 02/06/18 02/06/18 18:59 06:59 18:59 Intake Total 1031 / 1031 2131 / 2131 Output Total 1265 / 1265 850 / 850 Balance -234 / -234 1281 / 1281 Weight 78.8 kg Intake: IV 500 / 500 650 / 650 Lasix Inj 100 MG In NS Inj 90 100 / 100 ML @ 3 mls/hr IV.CONT .Q24H [facility]O Rx#:[id number] Flexbumin 25% Inj 100 ML @ 60 100 / 100 mls/hr IV.SIG Q12H [facility] Rx#: [id number] Azactam Inj 1,000 MG In NS Inj 200 / 200 200 / 200 100 ML @ 200 mls/hr IV.SIG Q6H [facility]O Rx#:[id number] Teflaro Inj 300 MG In NS Inj 100 / 100 100 ML @ 100 mls/hr IV.SIG Q12H [facility]O Rx#:[id number] Cubicin Inj 800 MG In NS Inj 100 / 100 100 ML @ 200 mls/hr IV.SIG Q48H [facility]O Rx#:[id number] Mycamine Inj 150 MG In NS Inj 100 / 100 100 ML @ 100 mls/hr IV.SIG Q24H [facility]O Rx#:[id number] Levophed-Dextrose 4 mg/250 ml 250 / 250 Drip 4 mg In 250 ml @ 2 MCG/MIN 7.5 mls/hr IV.SIG TITRATE PRN Rx#:[id number] Tube Feeding 411 / 411 331 / 331 Water Bolus Amount 120 / 120 Other 350 / 350 Rbc As-3 Leukoreduced Unit 350 / 350 [id number] Intake (Blood Product) Amt 800 / 800 Rbc As-3 Leukoreduced Unit 400 / 400 [id number] Rbc As-3 Leukoreduced Unit 400 / 400 [id number] Output: Urine Amount (Catheter) 1225 / 1225 850 / 850 Indwelling Urethral Catheter 1225 / 1225 850 / 850 Gastric Drainage 0 / 0 Left Nare Nasogastric Tube 0 / 0 Chest Tube Drainage 40 / 40 Right 40 / 40 Other: Date of Last Bowel Movement 02/05/18 02/05/18 # Bowel Movements 2 1 Result Diagrams: 02/06/18 05:26 02/06/18 00:10 Objective Remarks: General: Alert, interactive, on mechanical ventilation. Eyes are open, tracks and nods his head. HEENT: There is no icterus, oral intubated Neck : Supple aside from some chronic stiffness. Chest/pulm: Ventilated, air entry decreased bilaterally at bases, minimal scattered rhonchi, no wheezing. Right-sided pigtail catheter in place. CVS: S1S2, irregular rhythm. No JVD. Abd: Soft, nontender, bowel sounds present. No guarding or distention. Ext: Warm bilaterally. Dressing over bilateral shoulder surgical site clean dry and intact. Neuro: Easily arousable, tracking with eyes today. Weakly follows commands x4. Generalized weakness persist. Grossly nonfocal exam. Assessment and Plan - Assessment and Plan Plan: Assessment and Plan: Acute combined hypercapnic and hypoxemic respiratory failure Fluid overload/noncardiogenic Pulmonary edema secondary to sepsis MRSA pneumonia Mucus plugging Critical illness myopathy -Continue bronchodilators -BNP elevated, diuresed to mobilize fluid. Continue Lasix infusion per nephrology -Scott required for BPH as well as diuresis, accurate hourly intake output -Intubated and placed on mech ventilation on 01/22. -Status post bronchoscopy with BAL on 01/22 with significant mucus plugging noted in the right-sided airways including right mainstem bronchus for which BAL was performed with significant clearing of airway. -Status post bronchoscopy 02/02/[address] Morales -right mainstem bronchus with some mucous plugs noted which was suctioned out. -Continue mechanical ventilation, vent bundle. Mucomyst to mobilize secretions. -Frequent suctioning required. Previously extubated 01/25. Required BiPAP on 01/29 and was intubated for bilateral shoulder surgery and remains on mechanical ventilation since 01/29 postoperatively. -CT chest with bilateral effusions. S/p CT-guided right-sided thoracentesis/ pigtail catheter placement with IR on 01/30. -Dr. Jacky Macias for pulmonary per family request. -Daily CPAP trials. Get patient up to stretcher chair while on the vent daily. PT OT daily -Patient has significant generalized weakness, continues to fail prolonged CPAP trials -The patient will benefit from tracheostomy to facilitate ventilator weaning and to facilitate aggressive physical therapy MRSA septicemia, septic right shoulder, L spine diskitis, left supraclavicular abscess Septic right shoulder, s/p I&D Urinary tract infection. 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 Tapering steroid Blood cultures positive for MRSA. 2D echocardiogram did not show any findings consistent with vegetations. Patient also had a right shoulder effusion, orthopedics aspirated the shoulder - approximately 30 cc of purulent fluid. Orthopedics performed surgery/drainage of bilateral shoulder collections on 01/29 Previously IR consulted s/p CT-guided drainage of left posterior supraclavicular /posterior chest wall abscess on 01/17/18. s/p US guided drainage of shoulder collection by IR done on 01/23 Continue IV antibiotics per infectious disease recommendations. NM WBC scan 01/18/18 and 01/19/18. Imaging discussed with radiology and it seems patient with multiple focal infections bilateral shoulders, also back at the hardware with diskitis/osteomyelitis. Neurology, ID, hem onc following KEKE on CKD. Getting diuresed, Strict I/O, monitor/ replete electrolytes, follow BUN/ Cr Nephrology following, appreciate recs. IV Lasix gtt per nephrology Significant fluid removal with diuresis but creatinine increased concomitantly Remains moderately fluid positive CVS Atrial Fibrillation, permanent Noncardiogenic pulmonary edema Hypotension Rate well controlled. Recent ECHO EF 65% Dr. Garner following-discussed with Dr. Garner on 01/22. We agreed with diuresing patient for noncardiogenic pulmonary edema while watching renal function/ BP. Remains on Levophed to maintain map above 65 Holding amlodipine and Lopressor in view of labile blood pressure requiring Levophed. Lasix gtt 2 mg per hour started 02/03 Anemia Will keep hemoglobin above 8 g%. 1 unit PRBC given 02/02/2018 PRBC 2 units given 02/06/18 Protein calorie malnutrition -Inserted NGT 01/22 following intubation, Continue tube feeds and advance to goal as well tolerated. Follow prealbumin. BPH - Continue Flomax. DVT prophylaxis per surgeon Access: RIJ central line placed 01/22 -discontinued on 01/31. New left IJ central line placed 01/31 01/22: D/w Dr. Mani Sherman, D/W LEGAL ACTIVITY ADJUDICATOR, D/W patient's family at bedside. 01/23 D/W patient's daughter at bedside regarding current clinical status and plan of care and they voiced understanding and were agreeable with plan of care. D/W ID-Dr Tom on 01/23 01/24: Discussed with patient's family at bedside regarding current clinical status and plan of care and they voiced understanding. Discussed with ID Dr. Tom, discussed with Dr. Piña. Discussed with LEGAL ACTIVITY ADJUDICATOR. 01/25: I spoke with patient's daughter at the bedside this morning. We discussed goals for ventilator weaning and nutrition. I spoke with extensive family members later in the day. 01/26: I spoke at length with the patient's daughter this morning and will speak extensively with other family members later today. 01/27: I spoke with patient's family member at bedside regarding his respiratory status and plan of care and he voiced understanding. Will come back and update other family members later. 01/28: I updated family regarding plan of care. 01/29: Update multiple family members regarding clinical status including borderline respiratory status requiring BiPAP. Patient scheduled for surgery which was also discussed. I explained that patient will probably remain on mechanical ventilation postoperatively until improvement in respiratory status. 01/30: Treated patient's family regarding current clinical status including plan of care. Discussed need for thoracentesis and pigtail catheter placement for right effusion and possible need for bronchoscopy/BAL. They voiced understanding and were agreeable with plan of care. Discussed with Dr. Tom , discussed with Dr. Jacky Macias from pulmonary who was consulted as well for further evaluation of respiratory failure. 01/31: Discussed with patient's daughter/multiple family members at bedside regarding current clinical status and plan of care and they voiced understanding and was agreeable. Discussed with ID Dr. Tom 02/01: Discussed with patient son at bedside regarding current clinical status and plan of care and he voiced understanding and was agreeable. 02/02: Updated family members at the bedside 02/03 Updated son at bedside 02/04 updated family at the bedside 02/05: Lengthy discussion with daughter this morning concerning the process of long-term ventilator weaning. They wish to proceed with tracheostomy and PEG placement [facility] 02/06: I spoke with his daughter at the bedside today concerning new since trach site bleeding and our ongoing plans to have [facility] once the PEG is completed.
[2018-02-06] MEDS: Citalopram 20 MG Tablet PO SCH (09:04)
[2018-02-06] MEDS: Potassium Bicarbonate 25 MEQ Effervescent Tablet PO SCH ×2 (09:04→20:24)
[2018-02-06] MEDS: Pantoprazole Inj 40 MG Vial IV.PUSH SCH (09:04)
[2018-02-06] MEDS: Senna/Docusate Sodium 8.6/50 MG Tablet PO SCH ×2 (09:04→20:25)
[2018-02-06] MEDS: Chlorhexidine 0.12% Oral Kit 15 ML UDC OROPHARYNG SCH ×2 (09:06→19:18)
[2018-02-06 09:38] LABS: Baso % (Auto) 0.3 % (0.0-2.0); Eos # (Auto) 0.3 th/mm3 (0.0-0.4); Hematocrit 25.6 % (39.0-51.0); Hemoglobin 8.6 gm/dL (13.0-17.0); Lymph # (Auto) 0.8 th/mm3 (1.0-4.8); Lymph % (Auto) 9.5 % (9.0-44.0); Mean Corpuscular HGB Conc 33.5 % (32.0-36.0); Mean Corpuscular Hemoglobin 27.7 pg (27.0-34.0); Mean Corpuscular Volume 82.9 fL (80.0-100.0); Mean Platelet Volume 9.5 fL (7.0-11.0); Mono # (Auto) 0.3 th/mm3 (0.0-0.9); Mono % (Auto) 3.6 % (0.0-8.0); Neut # (Auto) 6.6 th/mm3 (1.8-7.7); Neut % (Auto) 82.6 % (16.0-70.0); Platelet Count 262 th/mm3 (150-450); Red Blood Count 3.09 mil/mm3 (4.50-5.90); Red Cell Distribution Width 18.4 % (11.6-17.2)
[2018-02-06 10:04] LABS: Eosinophils 1 % (0-4); Lymphocytes 3 % (9-44); Metamyelocytes 2 % (0-1); Monocytes 3 % (0-8); Platelet Estimate Normal (Normal); Platelet Morphology Normal (Normal)
--- NOTE | 2018-02-06 11:42 | P.DIET ---
Nutritional Evaluation Type of nutrition evaluation: follow-up Nutrition consult regarding: Tube Feeding Nutrition screening: [facility] [place] Screening comments: 01/18 Malnutrition 01/23 New TF Subjective Subjective Comments: From previous note dated 01/19: Pt's family reports pt is eating very little, he takes a few bites then is full. State they feed him and they will give him the Nepro. Objective - Diagnosis AMS, UTI, A-fib - Objective % IBW: 88 (IBW = 148#) Body Weight Used for Calculations: Actual (59.5) Energy Needs - Lower Range (kCal/kg): 28 Energy Needs - Upper Range (kCal/kg): 32 Lower Limit kCal/kg (kCals): 1,666 Upper Limit kCal/kg (kCals): 1,904 Lower Limit Protein Factor (Grams per Kg): 1.0 Upper Limit Protein Factor (Grams per Kg): 1.5 Lower Protein Needs (Protein): 60 Upper Protein Needs (Protein): 89 Fluid Factor (ml/kg): 28 Estimated Fluid Needs (ml): 1,971 Dietitian Reviewed in Medical Record: Curent medications, Intake & Output, Labs , Medical history, Tube feeding Diet Order: NPO Oral Diet Intake Amount: Poor <50% Objective Comments: PMH: HTN, GERD, PUD, Hypothyroidism, Afib Meds include: Synthroid Assessment Assessment: TF on hold for PEG placement. When TF resumes, recommend Jevity 1.5 with a goal rate of 60 mls/hr. TF will run for 22 hours d/t synthorid. TF must be held one hour before and after synthroid is given. Jevity 1.5 @ 60 mls/hr x 22 hours will provide 1980 kcals, 84 gms protein and 1003 mls of free water. Labs, wts and clinical course reviewed. Wt changes noted. Recommendations: Jevity 1.5 @ 60 mls/hr x 22 hours Dietitian to Monitor: Lab values, Intake & Output, Tube feeding tolerance, Weight change, Medical course
--- NOTE | 2018-02-06 13:52 | GIPROC ---
[facility] [address] [facility]. [facility], [address] EGD PROCEDURE REPORT EXAM DATE: 02/06/2018 PATIENT NAME: Jaqueline Lujan MR #: [id number] BIRTHDATE: 1935 ATTENDING: Karl Lawrence MD ORDER #: [id number] VICE PRESIDENT OF ENGINEERING: Dena Delgado and Neena Shook STATUS: inpatient INDICATIONS: The patient is a 82 yr old male here for an EGD due to PEG placement for enteral feeding PROCEDURE PERFORMED: EGD w/ percutaneous gastrostomy tube placement MEDICATIONS: Per Anesthesia and None. TOPICAL ANESTHETIC: none CONSENT: The patient understands the risks and benefits of the procedure and understands that these risks include, but are not limited to: sedation, allergic reaction, infection, perforation and/or bleeding. Alternative means of evaluation and treatment include, among others: physical exam, x-rays, and/or surgical intervention. The patient elects to proceed with this endoscopic procedure. medical equipment was checked for proper function. Hand hygiene and appropriate measures for infection prevention was taken. After the risks, benefits and alternatives of the procedure were thoroughly explained, Informed consent was verified, confirmed and timeout was successfully executed by the treatment team. The patient was anesthetized with topical anesthesia and the Pentax EG-[id number] endoscope was introduced through the mouth and advanced to the second portion of the duodenum. Retroflexed views revealed a hiatal hernia and Retroflexed views revealed The gastroscope was then slowly withdrawn and removed. ESOPHAGUS: There was LA Class C esophagitis noted. STOMACH: The mucosa of the stomach appeared normal. DUODENUM: The duodenal mucosa appeared normal in the entire duodenum. Appropriate spot was marked on LUQ anterior abd wall. The marked site injected with lidocaine . 1 cm incision made Trocar advanced through this into the gastric lumen . GW passed through the trocar grabbed with snare and pulled up by withdrawing the scope. 20 F PEG tube attached to th GW and pulled out of ant abdominal wall. Proper placement confirmed by endoscope. ADVERSE EVENTS: There were no complications. IMPRESSIONS: 1. There was LA Class C esophagitis noted 2. The mucosa of the stomach appeared normal 3. Normal duodenal mucosa in the entire duodenum 4. Retroflexed views revealed a hiatal hernia 5. S/P PEG placement RECOMMENDATIONS: Use PEG after 4hrs PATIENT CONDITION: stable DISPOSITION: Inpatient REPEAT EXAM: Return as needed for EGD Karl Lawrence MD eSigned: Karl Lawrence MD 02/06/2018 1:51 PM cc: PATIENT NAME: Jaqueline Lujan MR#: [id number]
--- NOTE | 2018-02-06 14:19 | P.PNID ---
Subjective Remarks: On vent, minimal secretons sp trach sp PEG today all clx no growth sputum non purulent and with nl resp cecilia no fever today renal function slightly worse seen after procedure medicated Antibiotics: v teflaro daptomycin azactam micafungin Lines: Line sites with no e.o infection Past Medical History: reviewed Allergies/Adverse Reactions: Allergies amoxicillin Allergy (Severe, Verified 01/13/18 20:44) Hives Objective Vital Signs 02/05/18 14:15 02/05/18 14:30 02/05/18 14:45 Temperature Pulse Rate 127 H 136 H 119 H Respiratory Rate Blood Pressure 166/74 H 166/74 H Pulse Oximetry 99 97 95 02/05/18 15:00 02/05/18 15:15 02/05/18 15:30 Temperature Pulse Rate 147 H 134 H 140 H Respiratory Rate 16 Blood Pressure Pulse Oximetry 96 95 95 02/05/18 15:45 02/05/18 16:00 02/05/18 16:06 Temperature 100.1 F H Pulse Rate 131 H 126 H Respiratory Rate 14 Blood Pressure 131/60 Pulse Oximetry 95 94 L 95 02/05/18 16:15 02/05/18 16:30 02/05/18 16:45 Temperature Pulse Rate 130 H 130 H 125 H Respiratory Rate Blood Pressure Pulse Oximetry 93 L 94 L 95 02/05/18 17:00 02/05/18 17:15 02/05/18 17:30 Temperature Pulse Rate 121 H 115 H 112 H Respiratory Rate 16 Blood Pressure Pulse Oximetry 94 L 95 94 L 02/05/18 17:45 02/05/18 18:00 02/05/18 18:15 Temperature 99.3 F Pulse Rate 107 H 101 H 101 H Respiratory Rate Blood Pressure Pulse Oximetry 96 95 96 02/05/18 18:30 02/05/18 18:45 02/05/18 19:00 Temperature Pulse Rate 99 H 100 H 105 H Respiratory Rate 20 Blood Pressure Pulse Oximetry 97 96 95 02/05/18 19:03 02/05/18 19:23 02/05/18 20:00 Temperature Pulse Rate 89 96 H Respiratory Rate 16 Blood Pressure 93/55 L Pulse Oximetry 95 95 02/06/18 00:00 02/06/18 01:00 02/06/18 01:20 Temperature 98.8 F Pulse Rate 96 H 102 H Respiratory Rate 15 14 14 Blood Pressure 125/58 L 143/73 H Pulse Oximetry 95 95 93 L 02/06/18 02:00 02/06/18 02:51 02/06/18 03:00 Temperature 98.5 F Pulse Rate 106 H 102 H 109 H Respiratory Rate 14 15 15 Blood Pressure 148/71 H 159/68 H Pulse Oximetry 96 96 95 02/06/18 03:10 02/06/18 04:00 02/06/18 04:24 Temperature Pulse Rate 101 H 106 H Respiratory Rate 14 16 18 Blood Pressure 164/70 H Pulse Oximetry 96 96 02/06/18 05:00 02/06/18 06:00 02/06/18 06:30 Temperature Pulse Rate 96 H 97 H 93 H Respiratory Rate 14 14 14 Blood Pressure 138/63 115/57 L 131/62 Pulse Oximetry 96 95 95 02/06/18 06:45 02/06/18 06:50 02/06/18 07:00 Temperature Pulse Rate 98 H 117 H Respiratory Rate 15 22 Blood Pressure 113/54 L 125/68 Pulse Oximetry 95 100 96 02/06/18 07:15 02/06/18 07:27 02/06/18 07:30 Temperature Pulse Rate 110 H 110 H 102 H Respiratory Rate 16 16 16 Blood Pressure 167/68 H 139/65 115/53 L Pulse Oximetry 95 97 96 02/06/18 07:45 02/06/18 07:54 02/06/18 08:00 Temperature 98.9 F Pulse Rate 106 H 107 H 99 H Respiratory Rate 16 16 16 Blood Pressure 172/115 H 177/74 H 164/70 H Pulse Oximetry 97 97 97 02/06/18 08:15 02/06/18 08:17 02/06/18 08:30 Temperature Pulse Rate 106 H 108 H 98 H Respiratory Rate 16 21 16 Blood Pressure 210/80 H 160/87 H 136/63 Pulse Oximetry 93 L 93 L 97 02/06/18 08:45 02/06/18 09:00 02/06/18 09:15 Temperature Pulse Rate 88 88 97 H Respiratory Rate 16 16 17 Blood Pressure 137/78 143/68 H 153/72 H Pulse Oximetry 97 97 97 02/06/18 09:30 02/06/18 09:33 02/06/18 09:45 Temperature Pulse Rate 89 105 H Respiratory Rate 16 22 17 Blood Pressure 160/67 H 139/63 Pulse Oximetry 98 97 95 02/06/18 10:00 02/06/18 10:15 02/06/18 10:30 Temperature Pulse Rate 105 H 102 H 104 H Respiratory Rate 22 16 24 Blood Pressure 137/64 144/63 H 140/62 Pulse Oximetry 96 96 96 02/06/18 10:45 02/06/18 11:00 02/06/18 11:15 Temperature Pulse Rate 105 H 100 H 100 H Respiratory Rate 20 32 H 13 Blood Pressure 131/65 121/58 L 115/53 L Pulse Oximetry 96 94 L 96 02/06/18 11:22 02/06/18 11:30 02/06/18 11:45 Temperature Pulse Rate 114 H 110 H Respiratory Rate 16 20 20 Blood Pressure 137/60 124/60 Pulse Oximetry 96 96 96 02/06/18 12:00 02/06/18 12:15 02/06/18 12:30 Temperature 98.9 F Pulse Rate 104 H 100 H 110 H Respiratory Rate 17 20 16 Blood Pressure 118/61 112/55 L 151/67 H Pulse Oximetry 96 95 95 02/06/18 12:45 Temperature Pulse Rate 108 H Respiratory Rate 14 Blood Pressure 136/71 Pulse Oximetry 96 Intake & Output 02/05/18 02/06/18 02/06/18 18:59 06:59 18:59 Intake Total 1031 / 1031 2386 / 2386 100 / 100 Output Total 1265 / 1265 850 / 850 Balance -234 / -234 1536 / 1536 100 / 100 Weight 78.8 kg Intake: IV 500 / 500 905 / 905 100 / 100 Lasix Inj 100 MG In NS Inj 90 100 / 100 ML @ 3 mls/hr IV.CONT .Q24H [facility] Rx#:[id number] Flexbumin 25% Inj 100 ML @ 60 100 / 100 100 / 100 mls/hr IV.SIG Q12H [facility] Rx#: [id number] Azactam Inj 1,000 MG In NS Inj 200 / 200 200 / 200 100 / 100 100 ML @ 200 mls/hr IV.SIG Q6H [facility] Rx#:[id number] Teflaro Inj 300 MG In NS Inj 100 / 100 100 / 100 100 ML @ 100 mls/hr IV.SIG Q12H [facility] Rx#:[id number] Cubicin Inj 800 MG In NS Inj 100 / 100 100 ML @ 200 mls/hr IV.SIG Q48H [facility] Rx#:[id number] DDAVP Inj 20 MCG In NS Inj 50 55 / 55 ML @ 100.5 mls/hr IV.SIG ONCE ONE Rx#:[id number] Mycamine Inj 150 MG In NS Inj 100 / 100 100 ML @ 100 mls/hr IV.SIG Q24H [facility] Rx#:[id number] Levophed-Dextrose 4 mg/250 ml 250 / 250 Drip 4 mg In 250 ml @ 2 MCG/MIN 7.5 mls/hr IV.SIG TITRATE [facility] Rx#:[id number] Tube Feeding 411 / 411 331 / 331 Water Bolus Amount 120 / 120 Other 350 / 350 Rbc As-3 Leukoreduced Unit 350 / 350 [id number] Intake (Blood Product) Amt 800 / 800 Rbc As-3 Leukoreduced Unit 400 / 400 [id number] Rbc As-3 Leukoreduced Unit 400 / 400 [id number] Output: Urine Amount (Catheter) 1225 / 1225 850 / 850 Indwelling Urethral Catheter 1225 / 1225 850 / 850 Gastric Drainage 0 / 0 Left Nare Nasogastric Tube 0 / 0 Chest Tube Drainage 40 / 40 Right 40 / 40 Other: Date of Last Bowel Movement 02/05/18 02/05/18 02/05/18 # Bowel Movements 2 1 01/30/18 15:00 Fluid - Pleural fluid Fungal Smear - Final No fungal elements seen 01/30/18 15:00 Fluid - Pleural fluid Fungal Culture - Preliminary No growth in 1 week 02/03/18 12:50 Blood - Peripheral Aerobic Blood Culture - Preliminary No growth in 3 days 02/03/18 12:50 Blood - Peripheral Anaerobic Blood Culture - Preliminary No growth in 3 days 02/03/18 12:56 Blood - Peripheral Aerobic Blood Culture - Preliminary No growth in 3 days 02/03/18 12:56 Blood - Peripheral Anaerobic Blood Culture - Preliminary No growth in 3 days 02/04/18 15:24 Sputum - Endotracheal Gram Stain - Final 02/04/18 15:24 Sputum - Endotracheal Sputum Culture - Final No growth in 48 hours 01/29/18 14:11 Wound - Shoulder Fungal Smear - Final No fungal elements seen 01/29/18 14:11 Wound - Shoulder Fungal Culture - Preliminary No growth in 1 week 01/29/18 14:11 Wound - Shoulder Acid Fast Bacilli Smear - Final No acid fast bacilli seen 01/29/18 14:11 Wound - Shoulder Mycobacterial Culture - Preliminary No growth in 1 week 01/29/18 14:10 Wound - Shoulder Acid Fast Bacilli Smear - Final No acid fast bacilli seen 01/29/18 14:10 Wound - Shoulder Mycobacterial Culture - Preliminary No growth in 1 week 01/29/18 14:10 Wound - Shoulder Fungal Smear - Final No fungal elements seen 01/29/18 14:10 Wound - Shoulder Fungal Culture - Preliminary No growth in 1 week 01/29/18 13:59 Wound - Shoulder Acid Fast Bacilli Smear - Final No acid fast bacilli seen 01/29/18 13:59 Wound - Shoulder Mycobacterial Culture - Preliminary No growth in 1 week 01/29/18 13:59 Wound - Shoulder Fungal Smear - Final No fungal elements seen 01/29/18 13:59 Wound - Shoulder Fungal Culture - Preliminary No growth in 1 week 01/29/18 13:58 Wound - Shoulder Fungal Smear - Final No fungal elements seen 01/29/18 13:58 Wound - Shoulder Fungal Culture - Preliminary No growth in 1 week 01/29/18 13:58 Wound - Shoulder Acid Fast Bacilli Smear - Final No acid fast bacilli seen 01/29/18 13:58 Wound - Shoulder Mycobacterial Culture - Preliminary No growth in 1 week 01/15/18 18:25 Wound - Shoulder Fungal Smear - Final No fungal elements seen 01/15/18 18:25 Wound - Shoulder Fungal Culture - Preliminary No growth in 3 weeks 01/15/18 18:25 Wound - Shoulder Acid Fast Bacilli Smear - Final No acid fast bacilli seen 01/15/18 18:25 Wound - Shoulder Mycobacterial Culture - Preliminary No growth in 3 weeks 01/15/18 18:25 Wound - Shoulder Fungal Smear - Final No fungal elements seen 01/15/18 18:25 Wound - Shoulder Fungal Culture - Preliminary No growth in 3 weeks 01/15/18 18:25 Wound - Shoulder Acid Fast Bacilli Smear - Final No acid fast bacilli seen 01/15/18 18:25 Wound - Shoulder Mycobacterial Culture - Preliminary No growth in 3 weeks 01/31/18 11:16 Blood - Peripheral Aerobic Blood Culture - Final No growth in 5 days 01/31/18 11:16 Blood - Peripheral Anaerobic Blood Culture - Final No growth in 5 days 01/31/18 11:10 Blood - Peripheral Aerobic Blood Culture - Final No growth in 5 days 01/31/18 11:10 Blood - Peripheral Anaerobic Blood Culture - Final No growth in 5 days Lab - Hematology Results 02/05/18 02/06/18 02/06/18 05:35 00:10 05:26 WBC 7.5 8.0 RBC 2.71 L 2.60 L Hgb 7.5 L 7.0 L 8.5 L Hct 22.0 L 21.2 L 25.7 L MCV 81.0 81.6 MCH 27.7 27.1 MCHC 34.1 33.2 RDW 20.6 H 20.5 H Plt Count 225 254 MPV 9.4 9.5 Prelim Diff (Auto) Neut % (Auto) 84.5 H 84.1 H Lymph % (Auto) 8.5 L 7.5 L [place] % (Auto) 3.8 4.3 Eos % (Auto) 2.9 3.7 Baso % (Auto) 0.3 0.4 Neut # (Auto) 6.3 6.8 Lymph # (Auto) 0.6 L 0.6 L [place] # (Auto) 0.3 0.3 Eos # (Auto) 0.2 0.3 Baso # (Auto) 0.0 0.0 WBC Differential . . Seg Neuts % (Manual) Band Neuts % (Manual) Lymphocytes % (Manual) Monocytes % (Manual) Eosinophils % (Manual) Metamyelocytes % (Man) Abs Neuts (Manual) Differential Comment Auto diff final Auto diff final Platelet Estimate Platelet Morphology 02/06/18 09:15 WBC 8.0 RBC 3.09 L Hgb 8.6 L Hct 25.6 L MCV 82.9 MCH 27.7 MCHC 33.5 RDW 18.4 H Plt Count 262 MPV 9.5 Prelim Diff (Auto) Slide review pending Neut % (Auto) 82.6 H Lymph % (Auto) 9.5 [place] % (Auto) 3.6 Eos % (Auto) 4.0 Baso % (Auto) 0.3 Neut # (Auto) 6.6 Lymph # (Auto) 0.8 L [place] # (Auto) 0.3 Eos # (Auto) 0.3 Baso # (Auto) 0.0 WBC Differential Manual diff final Seg Neuts % (Manual) 73 H Band Neuts % (Manual) 18 H Lymphocytes % (Manual) 3 L Monocytes % (Manual) 3 Eosinophils % (Manual) 1 Metamyelocytes % (Man) 2 H Abs Neuts (Manual) 7.4 Differential Comment . Platelet Estimate Normal Platelet Morphology Normal Lab - Chemistry Results 02/04/18 02/04/18 02/05/18 19:35 19:35 05:35 Sodium 139 Potassium 3.5 Chloride 105 Carbon Dioxide 23.3 Anion Gap 11 BUN 69 H Creatinine 2.29 H Estimated GFR 28 L Random Glucose 141 H Calcium 8.7 Total Bilirubin 1.9 H AST 18 ALT 18 Alkaline Phosphatase 466 H Total Creatine Kinase 9 L Total Protein 5.7 L Albumin 2.7 L Procalcitonin 1.02 H 02/05/18 02/06/18 13:03 00:10 Sodium 139 Potassium 3.6 Chloride 104 Carbon Dioxide 25.2 Anion Gap 10 BUN 73 H Creatinine 2.33 H Estimated GFR 27 L Random Glucose 152 H Calcium 8.4 L Total Bilirubin 1.7 H AST 20 ALT 22 Alkaline Phosphatase 538 H Total Creatine Kinase Total Protein 5.4 L Albumin 2.5 L Procalcitonin 0.78 H Imaging: ITS Impressions Abdomen/Pelvis CT 01/13/18 20:43 CONCLUSION: 1. Marked prostate enlargement. 2. Air-filled distention of sigmoid colon. 3. Cardiomegaly. Small bilateral pleural effusions. 4. Diffuse atherosclerotic disease and arterial calcification. 5. Old insufficiency type fractures of the left side of the sacrum and left- sided pubic rami. Cervical Spine MRI 01/14/18 00:00 CONCLUSION: 1. Examination is degraded by motion artifact. 2. Partial visualization of a mass involving the left supraclavicular region measuring 5.[address] scan of the soft tissues of the neck with IV contrast to further assess if the patient can't hold still for that exam. 3. Diffuse degenerative changes as detailed at each level in the above discussion. Head MRI 01/14/18 00:00 CONCLUSION: 1. No acute intracranial abnormality. 2. Encephalomalacia involving the left frontal lobe. Thoracic Spine MRI 01/14/18 00:00 CONCLUSION: 1. See the MRI of the cervical spine reported separately. 2. Orthopedic hardware at the thoracolumbar junction. 3. Patent central canal throughout. Soft Tissue Neck CT 01/16/18 00:00 CONCLUSION: 1. Partially visualized fluid and gas collection deep to the left trapezius muscle in the posterior lower neck extending into the posterior thorax. Chest CT with contrast could be performed to image the remainder of the abnormality. Differential diagnosis includes abscess and hematoma. 2. Degenerative findings of the cervical spine. Abscess Drainage CT 01/17/18 00:00 CONCLUSION: 1. Uncomplicated CT guided drainage, as above. WBC Scan Nuclear Medicine 01/18/18 00:00 CONCLUSION: 1. Multiple areas of abnormal uptake including at the upper lumbar spine around the upper left surgical hardware and at the L1-2 disc level. 2. Abnormal activity around the clip joints bilaterally being more prominent on the right. 3. Abnormal activity in the right C2-3 facet and the left C7-T1 facet. 4. Small area of signal abnormality in the posterior right sacroiliac joint region separate from surgical hardware. 5. All these areas are concerning for active infection. Shoulder X-Ray 01/21/18 00:00 CONCLUSION: Unusual positioning of the shoulder but I do not see any obvious displaced fracture of the shoulder. There is a healing third rib fracture and healing seventh rib fracture. Upper Extremity Ultrasound 01/22/18 00:00 CONCLUSION: 1. Lateral right shoulder subcutaneous complex fluid collection concerning for abscess. This is amenable to percutaneous drainage. Abscess Drainage Ultrasound 01/23/18 00:00 CONCLUSION: 1. Uncomplicated ultrasound-guided drainage catheter placement in complex inferolateral right shoulder fluid collection. Lumbar Spine MRI 01/23/18 00:00 CONCLUSION: Little or no change from previous exam. Nothing to suggest abscess Pelvis MRI 01/23/18 00:00 CONCLUSION: 1. Diffuse skin thickening and subcutaneous edema suggestive of cellulitis involving the left buttock without underlying abscess formation. 2. Rectosigmoid colon is distended with fecal debris suggestive of fecal impaction. Clinical correlation is recommended. 3. Markedly enlarged prostate. 4. Degenerative changes and scoliosis of the visualized lower lumbar spine are noted. 5. Bony changes involving the left sacrum likely representing old healed insufficiency fractures. Shoulder MRI 01/23/18 00:00 CONCLUSION: 1. Chronic complete rotator cuff tear. 2. Moderate joint fluid Abscess Drainage 01/24/18 15:37 CONCLUSION: 1. Uncomplicated percutaneous placement of drainage catheter in left shoulder. Chest CT 01/29/18 15:28 CONCLUSION: 1. Interval increase in the amount of pleural effusions bilaterally. Findings have been discussed with Dr. Tom on today's date. Thoracentesis CT 01/30/18 00:00 CONCLUSION: 1. Uncomplicated CT-guided right-sided chest tube placement. Venous Doppler Study 02/02/18 00:00 CONCLUSION: The study is negative for bilateral lower extremity deep venous thrombosis. Head CT 02/03/18 00:00 CONCLUSION: 1. Left maxillary mucosal thickening. 2. Atrophy and left frontal encephalomalacia again noted. . Chest X-Ray 02/05/18 13:52 CONCLUSION: 1. Interval extubation and placement of tracheostomy tube. 2. Hazy perihilar and bibasilar opacities which appear mildly increased from the prior study. Both costophrenic angles appear blunted consistent with small effusions. Physical Exam: GENERAL: on vent sedated SKIN: Warm and dry. No rash HEAD: Atraumatic. Normocephalic. EYES: No scleral icterus. No injection or drainage. ENT: No nasal bleeding or discharge. Mucous membranes pink and moist. NECK: Trachea midline. No JVD. No palpable masses, but diffuse pain CARDIOVASCULAR: Regular rate and rhythm. nO murmurs RESPIRATORY: No accessory muscle use. R sided CT in place clear serous fluid GASTROINTESTINAL: Abdomen soft, mildly distended. MUSCULOSKELETAL: Extremities without clubbing, cyanosis, + increasing soft pitting edema. No obvious deformities. b/l shoulders with dressing on place : [place] in, clear yellow urine NEUROLOGICAL: sedated, seen right post PEG PSYCHIATRIC: unable to assess Assessment and Plan - Plan High grade staph bacteremia. MRSA 2 D echo neg R shoulder effusion , cw R shoulder septic arhtritis (MRSA)-post I&D. . 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 source: fever resolved. BC neg so far. Empiric broad spectrum coverage Worsening Alk phos, bili no h/o cholecysterctomy c diff negative Recs: cont daptomycin, teflaro fu BC and sputum cl untill final stool for c.diff is stool is loose US gall bladder will consider scans if cont to have fever and w/u remains negative cont broad spectrum abx ( azactam, micafungin added ) poonam RN dw family @ b/s poonam Bland
--- NOTE | 2018-02-06 15:52 | US ---
EXAM DATE: 02/06/2018 3:43 PM EST AGE/SEX: 82 years / Male INDICATIONS: Elevated lab values. CLINICAL DATA: This is the patient's initial encounter. Patient reports that signs and symptoms have been present for 4 - 6 days and indicates a pain score of Nonresponsive. MEDICAL/SURGICAL HISTORY: Hypertension. Hypothyroidism. Atrial fibrillation. Benign prostatic hyperplasia. MRSA. Peptic ulcer disease. . Neck surgery. COMPARISON: [facility] [place]OM[place] & PELVIS W CONTRAST, 01/13/2018. . MEASUREMENTS: Liver:__ 20.7 cm. Common Bile Duct:__ 5mm. FINDINGS: Liver: The right hepatic lobe is elongated. Liver otherwise demonstrates a normal echogenic texture. Bile ducts are mildly prominent. Common bile duct is normal in caliber. Portal Vein: Hepatopedal flow seen in portal vein. Common Duct: Normal in caliber Gallbladder: Significant internal debris is identified within the gallbladder. Gallbladder wall is t hickened. Pancreas: Not well visualized. Right Kidney: Increased echogenicity. No mass or hydronephrosis. Other: None. CONCLUSION: 1. Gallbladder wall thickening with significant debris within the gallbladder. 2. Mild intrahepatic biliary duct enlargement. 3. Normal common bile duct. 4. If biliary obstructive disease is suspected further evaluation with MRCP should be considered. 5. Nonvisualization of the pancreas. Electronically signed by: Danial Alfaro MD Board Certified Radiologist 02/06/2018 3:51 PM EST
--- NOTE | 2018-02-06 15:59 | P.PNNP ---
Subjective Interval history: Post trach and PEG open eyes Physical Exam Vital signs: Vital Signs 02/05/18 16:00 02/05/18 16:06 02/05/18 16:15 Temperature 100.1 F H Pulse Rate 126 H 130 H Respiratory Rate 14 Blood Pressure Pulse Oximetry 94 L 95 93 L 02/05/18 16:30 02/05/18 16:45 02/05/18 17:00 Temperature Pulse Rate 130 H 125 H 121 H Respiratory Rate 16 Blood Pressure Pulse Oximetry 94 L 95 94 L 02/05/18 17:15 02/05/18 17:30 02/05/18 17:45 Temperature Pulse Rate 115 H 112 H 107 H Respiratory Rate Blood Pressure Pulse Oximetry 95 94 L 96 02/05/18 18:00 02/05/18 18:15 02/05/18 18:30 Temperature 99.3 F Pulse Rate 101 H 101 H 99 H Respiratory Rate Blood Pressure Pulse Oximetry 95 96 97 02/05/18 18:45 02/05/18 19:00 02/05/18 19:03 Temperature Pulse Rate 100 H 105 H 89 Respiratory Rate 20 Blood Pressure 93/55 L Pulse Oximetry 96 95 95 02/05/18 19:23 02/05/18 20:00 02/06/18 00:00 Temperature 98.8 F Pulse Rate 96 H 96 H Respiratory Rate 16 15 Blood Pressure 125/58 L Pulse Oximetry 95 95 02/06/18 01:00 02/06/18 01:20 02/06/18 02:00 Temperature Pulse Rate 102 H 106 H Respiratory Rate 14 14 14 Blood Pressure 143/73 H 148/71 H Pulse Oximetry 95 93 L 96 02/06/18 02:51 02/06/18 03:00 02/06/18 03:10 Temperature 98.5 F Pulse Rate 102 H 109 H 101 H Respiratory Rate 15 15 14 Blood Pressure 159/68 H Pulse Oximetry 96 95 02/06/18 04:00 02/06/18 04:24 02/06/18 05:00 Temperature Pulse Rate 106 H 96 H Respiratory Rate 16 18 14 Blood Pressure 164/70 H 138/63 Pulse Oximetry 96 96 96 02/06/18 06:00 02/06/18 06:30 02/06/18 06:45 Temperature Pulse Rate 97 H 93 H 98 H Respiratory Rate 14 14 15 Blood Pressure 115/57 L 131/62 113/54 L Pulse Oximetry 95 95 95 02/06/18 06:50 02/06/18 07:00 02/06/18 07:15 Temperature Pulse Rate 117 H 110 H Respiratory Rate 22 16 Blood Pressure 125/68 167/68 H Pulse Oximetry 100 96 95 02/06/18 07:27 02/06/18 07:30 02/06/18 07:45 Temperature Pulse Rate 110 H 102 H 106 H Respiratory Rate 16 16 16 Blood Pressure 139/65 115/53 L 172/115 H Pulse Oximetry 97 96 97 02/06/18 07:54 02/06/18 08:00 02/06/18 08:15 Temperature 98.9 F Pulse Rate 107 H 99 H 106 H Respiratory Rate 16 16 16 Blood Pressure 177/74 H 164/70 H 210/80 H Pulse Oximetry 97 97 93 L 02/06/18 08:17 02/06/18 08:30 02/06/18 08:45 Temperature Pulse Rate 108 H 98 H 88 Respiratory Rate 21 16 16 Blood Pressure 160/87 H 136/63 137/78 Pulse Oximetry 93 L 97 97 02/06/18 09:00 02/06/18 09:15 02/06/18 09:30 Temperature Pulse Rate 88 97 H 89 Respiratory Rate 16 17 16 Blood Pressure 143/68 H 153/72 H 160/67 H Pulse Oximetry 97 97 98 02/06/18 09:33 02/06/18 09:45 02/06/18 10:00 Temperature Pulse Rate 105 H 105 H Respiratory Rate 22 17 22 Blood Pressure 139/63 137/64 Pulse Oximetry 97 95 96 02/06/18 10:15 02/06/18 10:30 02/06/18 10:45 Temperature Pulse Rate 102 H 104 H 105 H Respiratory Rate 16 24 20 Blood Pressure 144/63 H 140/62 131/65 Pulse Oximetry 96 96 96 02/06/18 11:00 02/06/18 11:15 02/06/18 11:22 Temperature Pulse Rate 100 H 100 H Respiratory Rate 32 H 13 16 Blood Pressure 121/58 L 115/53 L Pulse Oximetry 94 L 96 96 02/06/18 11:30 02/06/18 11:45 02/06/18 12:00 Temperature 98.9 F Pulse Rate 114 H 110 H 104 H Respiratory Rate 20 20 17 Blood Pressure 137/60 124/60 118/61 Pulse Oximetry 96 96 96 02/06/18 12:15 02/06/18 12:30 02/06/18 12:45 Temperature Pulse Rate 100 H 110 H 108 H Respiratory Rate 20 16 14 Blood Pressure 112/55 L 151/67 H 136/71 Pulse Oximetry 95 95 96 02/06/18 13:00 02/06/18 13:15 02/06/18 13:30 Temperature Pulse Rate 115 H 114 H 111 H Respiratory Rate 14 15 16 Blood Pressure 150/72 H 132/78 Pulse Oximetry 96 91 L 95 02/06/18 13:45 02/06/18 14:00 02/06/18 14:15 Temperature Pulse Rate 110 H 115 H 112 H Respiratory Rate 14 14 14 Blood Pressure 141/63 H 153/78 H 163/67 H Pulse Oximetry 88 L 96 96 02/06/18 14:30 02/06/18 14:45 02/06/18 15:00 Temperature Pulse Rate 113 H 108 H 107 H Respiratory Rate 16 14 14 Blood Pressure 143/68 H 136/69 148/66 H Pulse Oximetry 89 L 95 95 02/06/18 15:15 Temperature Pulse Rate 116 H Respiratory Rate 14 Blood Pressure 154/72 H Pulse Oximetry 95 Intake & Output 02/05/18 02/06/18 02/06/18 18:59 06:59 18:59 Intake Total 1031 / 1031 2386 / 2386 200 / 200 Output Total 1265 / 1265 850 / 850 Balance -234 / -234 1536 / 1536 200 / 200 Weight 78.8 kg Intake: IV 500 / 500 905 / 905 100 / 100 Lasix Inj 100 MG In NS Inj 90 100 / 100 ML @ 3 mls/hr IV.CONT .Q24H [facility] Rx#:[id number] Flexbumin 25% Inj 100 ML @ 60 100 / 100 100 / 100 mls/hr IV.SIG Q12H [facility] Rx#: [id number] Azactam Inj 1,000 MG In NS Inj 200 / 200 200 / 200 100 / 100 100 ML @ 200 mls/hr IV.SIG Q6H [facility] Rx#:[id number] Teflaro Inj 300 MG In NS Inj 100 / 100 100 / 100 100 ML @ 100 mls/hr IV.SIG Q12H [facility] Rx#:[id number] Cubicin Inj 800 MG In NS Inj 100 / 100 100 ML @ 200 mls/hr IV.SIG Q48H COUNT INCLUDES [facility] Rx#:[id number] DDAVP Inj 20 MCG In NS Inj 50 55 / 55 ML @ 100.5 mls/hr IV.SIG ONCE ONE Rx#:[id number] Mycamine Inj 150 MG In NS Inj 100 / 100 100 ML @ 100 mls/hr IV.SIG Q24H COUNT INCLUDES [facility] Rx#:[id number] Levophed-Dextrose 4 mg/250 ml 250 / 250 Drip 4 mg In 250 ml @ 2 MCG/MIN 7.5 mls/hr IV.SIG TITRATE PRN Rx#:[id number] Tube Feeding 411 / 411 331 / 331 Water Bolus Amount 120 / 120 Anesthesia Amount 100 / 100 Other 350 / 350 Rbc As-3 Leukoreduced Unit 350 / 350 [id number] Intake (Blood Product) Amt 800 / 800 Rbc As-3 Leukoreduced Unit 400 / 400 [id number] Rbc As-3 Leukoreduced Unit 400 / 400 [id number] Output: Urine Amount (Catheter) 1225 / 1225 850 / 850 Indwelling Urethral Catheter 1225 / 1225 850 / 850 Gastric Drainage 0 / 0 Left Nare Nasogastric Tube 0 / 0 Chest Tube Drainage 40 / 40 Right 40 / 40 Other: Date of Last Bowel Movement 02/05/18 02/05/18 02/05/18 # Bowel Movements 2 1 Narrative: GENERAL: Status post tracheostomy SKIN: Warm and dry. HEAD: Normocephalic. EYES: No scleral icterus. NECK: Supple, trachea CARDIOVASCULAR: Irregular RESPIRATORY: Intubated, no accessory muscle use GASTROINTESTINAL: Abdomen soft, non-tender, EXTREMITIES: Shoulder bandage kevin edema present NEUROLOGICAL: On mental - Urinary Catheter Management Condom Cath placed during this visit: no Indwelling Urethral Catheter Cath placed during this visit: yes Reason for continuing: Hourly intake/output Insertion date: 01/20/18 Insertion time: 11:30 Assessment and Plan - Assessment (1) Acute renal failure Code(s): N17.9 - Acute kidney failure, unspecified Status: Acute (2) Atrial fibrillation Code(s): I48.91 - Unspecified atrial fibrillation Status: Acute Qualifiers: Atrial fibrillation type: unspecified Qualified Code(s): I48.91 - Unspecified atrial fibrillation (3) Sepsis Code(s): A41.9 - Sepsis, unspecified organism Status: Acute Qualifiers: Sepsis type: methicillin resistant Staphylococcus aureus Qualified Code(s) : A41.02 - Sepsis due to Methicillin resistant Staphylococcus aureus - Plan Patient is doing better Patient creatinine is 2.3 Cultures followed, fever improved Good urine output 2. L, creatinine remains stable we will decrease the rate of Lasix to 3 mg/h we will discontinue and give Lasix 40 mg IV daily Patient status post tracheostomy Edema is improved On potassium replacement
--- NOTE | 2018-02-06 16:26 | P.PNNS ---
Physical Exam Vital signs: Vital Signs 02/05/18 16:30 02/05/18 16:45 02/05/18 17:00 Temperature Pulse Rate 130 H 125 H 121 H Respiratory Rate 16 Blood Pressure Pulse Oximetry 94 L 95 94 L 02/05/18 17:15 02/05/18 17:30 02/05/18 17:45 Temperature Pulse Rate 115 H 112 H 107 H Respiratory Rate Blood Pressure Pulse Oximetry 95 94 L 96 02/05/18 18:00 02/05/18 18:15 02/05/18 18:30 Temperature 99.3 F Pulse Rate 101 H 101 H 99 H Respiratory Rate Blood Pressure Pulse Oximetry 95 96 97 02/05/18 18:45 02/05/18 19:00 02/05/18 19:03 Temperature Pulse Rate 100 H 105 H 89 Respiratory Rate 20 Blood Pressure 93/55 L Pulse Oximetry 96 95 95 02/05/18 19:23 02/05/18 20:00 02/06/18 00:00 Temperature 98.8 F Pulse Rate 96 H 96 H Respiratory Rate 16 15 Blood Pressure 125/58 L Pulse Oximetry 95 95 02/06/18 01:00 02/06/18 01:20 02/06/18 02:00 Temperature Pulse Rate 102 H 106 H Respiratory Rate 14 14 14 Blood Pressure 143/73 H 148/71 H Pulse Oximetry 95 93 L 96 02/06/18 02:51 02/06/18 03:00 02/06/18 03:10 Temperature 98.5 F Pulse Rate 102 H 109 H 101 H Respiratory Rate 15 15 14 Blood Pressure 159/68 H Pulse Oximetry 96 95 02/06/18 04:00 02/06/18 04:24 02/06/18 05:00 Temperature Pulse Rate 106 H 96 H Respiratory Rate 16 18 14 Blood Pressure 164/70 H 138/63 Pulse Oximetry 96 96 96 02/06/18 06:00 02/06/18 06:30 02/06/18 06:45 Temperature Pulse Rate 97 H 93 H 98 H Respiratory Rate 14 14 15 Blood Pressure 115/57 L 131/62 113/54 L Pulse Oximetry 95 95 95 02/06/18 06:50 02/06/18 07:00 02/06/18 07:15 Temperature Pulse Rate 117 H 110 H Respiratory Rate 22 16 Blood Pressure 125/68 167/68 H Pulse Oximetry 100 96 95 02/06/18 07:27 02/06/18 07:30 02/06/18 07:45 Temperature Pulse Rate 110 H 102 H 106 H Respiratory Rate 16 16 16 Blood Pressure 139/65 115/53 L 172/115 H Pulse Oximetry 97 96 97 02/06/18 07:54 02/06/18 08:00 02/06/18 08:15 Temperature 98.9 F Pulse Rate 107 H 99 H 106 H Respiratory Rate 16 16 16 Blood Pressure 177/74 H 164/70 H 210/80 H Pulse Oximetry 97 97 93 L 02/06/18 08:17 02/06/18 08:30 02/06/18 08:45 Temperature Pulse Rate 108 H 98 H 88 Respiratory Rate 21 16 16 Blood Pressure 160/87 H 136/63 137/78 Pulse Oximetry 93 L 97 97 02/06/18 09:00 02/06/18 09:15 02/06/18 09:30 Temperature Pulse Rate 88 97 H 89 Respiratory Rate 16 17 16 Blood Pressure 143/68 H 153/72 H 160/67 H Pulse Oximetry 97 97 98 02/06/18 09:33 02/06/18 09:45 02/06/18 10:00 Temperature Pulse Rate 105 H 105 H Respiratory Rate 22 17 22 Blood Pressure 139/63 137/64 Pulse Oximetry 97 95 96 02/06/18 10:15 02/06/18 10:30 02/06/18 10:45 Temperature Pulse Rate 102 H 104 H 105 H Respiratory Rate 16 24 20 Blood Pressure 144/63 H 140/62 131/65 Pulse Oximetry 96 96 96 02/06/18 11:00 02/06/18 11:15 02/06/18 11:22 Temperature Pulse Rate 100 H 100 H Respiratory Rate 32 H 13 16 Blood Pressure 121/58 L 115/53 L Pulse Oximetry 94 L 96 96 02/06/18 11:30 02/06/18 11:45 02/06/18 12:00 Temperature 98.9 F Pulse Rate 114 H 110 H 104 H Respiratory Rate 20 20 17 Blood Pressure 137/60 124/60 118/61 Pulse Oximetry 96 96 96 02/06/18 12:15 02/06/18 12:30 02/06/18 12:45 Temperature Pulse Rate 100 H 110 H 108 H Respiratory Rate 20 16 14 Blood Pressure 112/55 L 151/67 H 136/71 Pulse Oximetry 95 95 96 02/06/18 13:00 02/06/18 13:15 02/06/18 13:30 Temperature Pulse Rate 115 H 114 H 111 H Respiratory Rate 14 15 16 Blood Pressure 150/72 H 132/78 Pulse Oximetry 96 91 L 95 02/06/18 13:45 02/06/18 14:00 02/06/18 14:15 Temperature Pulse Rate 110 H 115 H 112 H Respiratory Rate 14 14 14 Blood Pressure 141/63 H 153/78 H 163/67 H Pulse Oximetry 88 L 96 96 02/06/18 14:30 02/06/18 14:45 02/06/18 15:00 Temperature Pulse Rate 113 H 108 H 107 H Respiratory Rate 16 14 14 Blood Pressure 143/68 H 136/69 148/66 H Pulse Oximetry 89 L 95 95 02/06/18 15:15 Temperature Pulse Rate 116 H Respiratory Rate 14 Blood Pressure 154/72 H Pulse Oximetry 95 Intake & Output 02/05/18 02/06/18 02/06/18 18:59 06:59 18:59 Intake Total 1031 / 1031 2386 / 2386 200 / 200 Output Total 1265 / 1265 850 / 850 Balance -234 / -234 1536 / 1536 200 / 200 Weight 78.8 kg Intake: IV 500 / 500 905 / 905 100 / 100 Lasix Inj 100 MG In NS Inj 90 100 / 100 ML @ 3 mls/hr IV.CONT .Q24H [facility] Rx#:[id number] Flexbumin 25% Inj 100 ML @ 60 100 / 100 100 / 100 mls/hr IV.SIG Q12H [facility] Rx#: [id number] Azactam Inj 1,000 MG In NS Inj 200 / 200 200 / 200 100 / 100 100 ML @ 200 mls/hr IV.SIG Q6H [facility] Rx#:[id number] Teflaro Inj 300 MG In NS Inj 100 / 100 100 / 100 100 ML @ 100 mls/hr IV.SIG Q12H [facility] Rx#:[id number] Cubicin Inj 800 MG In NS Inj 100 / 100 100 ML @ 200 mls/hr IV.SIG Q48H [facility] Rx#:[id number] DDAVP Inj 20 MCG In NS Inj 50 55 / 55 ML @ 100.5 mls/hr IV.SIG ONCE ONE Rx#:[id number] Mycamine Inj 150 MG In NS Inj 100 / 100 100 ML @ 100 mls/hr IV.SIG Q24H [facility] Rx#:[id number] Levophed-Dextrose 4 mg/250 ml 250 / 250 Drip 4 mg In 250 ml @ 2 MCG/MIN 7.5 mls/hr IV.SIG TITRATE PRN Rx#:[id number] Tube Feeding 411 / 411 331 / 331 Water Bolus Amount 120 / 120 Anesthesia Amount 100 / 100 Other 350 / 350 Rbc As-3 Leukoreduced Unit 350 / 350 [id number] Intake (Blood Product) Amt 800 / 800 Rbc As-3 Leukoreduced Unit 400 / 400 [id number] Rbc As-3 Leukoreduced Unit 400 / 400 [id number] Output: Urine Amount (Catheter) 1225 / 1225 850 / 850 Indwelling Urethral Catheter 1225 / 1225 850 / 850 Gastric Drainage 0 / 0 Left Nare Nasogastric Tube 0 / 0 Chest Tube Drainage 40 / 40 Right 40 / 40 Other: Date of Last Bowel Movement 02/05/18 02/05/18 02/05/18 # Bowel Movements 2 1 - Urinary Catheter Management Condom Cath placed during this visit: no Indwelling Urethral Catheter Cath placed during this visit: yes Reason for continuing: Hourly intake/output Insertion date: 01/20/18 Insertion time: 11:30 Assessment and Plan - Plan THIS NOTE REPRESENTS MY ENCOUNTER ON 01/31/18 DURING ROUNDS Neuro. Continue neuro checks. Acute combined hypercapnic and hypoxemic respiratory failure on mechanical ventilation, CPAP trials today He underwent right-sided pigtail catheter placement by IR yesterday with drainage of about 800 cc of pleural fluid -Bronchodilators -diuresed to mobilize fluid -Scott required for BPH as well as diuresis May need further bronchoscopy. Follow-up chest x-ray -Continue mechanical ventilation, vent bundle. Added Mucomyst to mobilize secretions. -Frequent suctioning required MRSA septicemia, septic right shoulder, L spine possible osteomyelitis, left supraclavicular abscess Right shoulder effusion. septic right shoulder, s/p I&D Urinary tract infection. Left Supraclavicular abscess, CT reviewed, showed abscess extending to posterior thorax He was taken to surgery yesterday for bilateral shoulder collections under general anesthesia, tolerated procedure Blood cultures positive for MRSA. 2D echocardiogram did not show any findings consistent with vegetations. Continue vancomycin, Levaquin, meropenem per ID. Patient also had a right shoulder effusion, orthopedics aspirated the shoulder - approximately 30 cc of purulent fluid. Orthopedics planning OR for drainage ob bilateral shoulder collections on 01/29 Continue IV antibiotics per infectious disease recommendations. Infectious disease following repeat blood cultures ntd KEKE on CKD. Being diuresed, Strict I/O, monitor/ replete electrolytes, follow BUN/ Cr Nephrology following, appreciate recs. Significant fluid removal with diuresis but creatinine increased. Fluid balance appears about the right today 01/25, but mild prerenal azotemia noted Worsening prerenal azotemia Atrial Fibrillation, permanent Dr. Garner following Rate well controlled. old antihypertensives. On 01/23 ordered Levophed for pressor support to keep MAP greater than 65mm Hg however has not required pressors. Hold off on further diuresis due to rising creatinine. Start Lopressor 12 and half milligrams twice daily ANEMIA: TRANSFUSED 1u prbc Protein calorie malnutrition: very low albumin, will check prealbumin. Will add ensure with meals. Consult dental financial coordinator. BPH - Continue Flomax. Endocrine: Continue to Monitor serial Acu checks and SSI as needed in detail Continue Protonix for stress ulcer prophylaxis Continue Randolph hose and SCD's for DVT prophylaxis. Lovenox Further recommendations will be provided depending on the patient's clinical evaluation and follow up
[2018-02-06] MEDS: Melatonin 5 MG Tablet PO SCH (20:24)
[2018-02-06] MEDS: Micafungin Inj 150 MG in Sodium Chlor 0.9% Inj 100 ML IV.SIG SCH (21:46)
[2018-02-07] MEDS: Albumin Human 25% Inj 100 ML IV.SIG SCH ×2 (02:41→14:09)
[2018-02-07] MEDS: Ceftaroline Inj 300 MG in Sodium Chlor 0.9% Inj 100 ML IV.SIG SCH ×2 (02:41→14:09)
[2018-02-07] MEDS: Oral Hygiene Kit OROPHARYNG SCH ×3 (04:29→15:13)
[2018-02-07] MEDS: Levothyroxine 100 MCG Tablet PO SCH (05:29)
[2018-02-07 06:15] LABS: Baso % (Auto) 0.3 % (0.0-2.0); Eos # (Auto) 0.3 th/mm3 (0.0-0.4); Eos % (Auto) 3.8 % (0.0-4.0); Lymph # (Auto) 0.8 th/mm3 (1.0-4.8); Lymph % (Auto) 10.5 % (9.0-44.0); Mean Corpuscular HGB Conc 33.5 % (32.0-36.0); Mean Corpuscular Hemoglobin 28.1 pg (27.0-34.0); Mean Corpuscular Volume 83.8 fL (80.0-100.0); Mean Platelet Volume 9.5 fL (7.0-11.0); Mono # (Auto) 0.3 th/mm3 (0.0-0.9); Mono % (Auto) 4.2 % (0.0-8.0); Neut % (Auto) 81.2 % (16.0-70.0); Platelet Count 268 th/mm3 (150-450); Red Blood Count 2.87 mil/mm3 (4.50-5.90); Red Cell Distribution Width 18.8 % (11.6-17.2); White Blood Count 7.4 th/mm3 (4.0-11.0)
[2018-02-07 06:41] LABS: Calcium 8.5 mg/dL (8.5-10.1); Carbon Dioxide 23.2 meq/L (21.0-32.0); Potassium 3.5 meq/L (3.5-5.1)
[2018-02-07 07:57] LABS: Eosinophils 5 % (0-4); Lymphocytes 9 % (9-44); Monocytes 1 % (0-8); Myelocytes 1 % (0-0); Promyelocyte 1 % (0-0)
[2018-02-07 07:58] LABS: Ovalocytes 1+; Spherocytes Occ
[2018-02-07 07:59] LABS: Platelet Estimate Normal (Normal); Platelet Morphology Normal (Normal)
--- NOTE | 2018-02-07 08:40 | P.PNNEU ---
Subjective Subjective Comments: No acute events Active Medications: Active Medications Acetaminophen (Tylenol) 650 mg PO Q4H PRN PRN Reason: Temp > 100.4 Last Admin: 01/31/18 16:32 Dose: 650 mg Acetaminophen (Tylenol Liq) 650 mg PO Q6HR [facility] Last Admin: 02/07/18 05:29 Dose: 650 mg Hydrocodone Bitart/Acetaminophen ([place] 5/325) 1 tab PO Q4H PRN PRN Reason: PAIN LESS THAN 5 ON SCALE Last Admin: 02/01/18 21:06 Dose: 1 tab Hydrocodone Bitart/Acetaminophen ([place] 5/325) 2 tab PO Q6H PRN PRN Reason: PAIN SCALE 5 TO 10 Last Admin: 02/01/18 09:05 Dose: 2 tab Al Hydroxide/Mg Hydroxide (Milk Of Magnjayson Liq) 30 ml PO Q12H PRN PRN Reason: CONSTIPATION Albuterol (Duoneb Neb (Prn)) 1 ampul NEB Q2HR NEB PRN PRN Reason: WHEEZING Last Admin: 02/04/18 19:59 Dose: 1 ampul Amlodipine Besylate (Norvasc) 10 mg PO DAILY [facility] Last Admin: 01/30/18 10:40 Dose: 10 mg Bisacodyl (Dulcolax Supp) 10 mg RECTAL DAILY PRN PRN Reason: SEVERE CONSITIPATION Chlorhexidine Gluconate (Peridex 0.12% Oral Kit) 15 ml OROPHARYNG BID@0800, 2000 [facility] Last Admin: 02/06/18 19:18 Dose: 15 ml Citalopram Hydrobromide (Celexa) 20 mg PO DAILY [facility] Last Admin: 02/06/18 09:04 Dose: 20 mg Epinephrine (Racepinephrine 2.25% Neb) 0.5 ml NEB Q3HR NEB PRN PRN Reason: any upper airway noise or stri Furosemide (Lasix Inj) 40 mg IV.PUSH DAILY [facility] Gelatin (Gelfoam 12 Mm/7 Mm Topical) 3 foam TOPICAL NOW [facility] Last Admin: 02/06/18 01:57 Dose: 3 foam Hydralazine HCl (Apresoline Inj) 20 mg IV.PUSH Q4H PRN PRN Reason: SBP>160, DBP>90 Last Admin: 02/05/18 14:09 Dose: 20 mg Sodium Chloride (Ns Inj) 500 mls @ 30 mls/hr IV.SIG .Q10H [facility] Norepinephrine Bitartrate (Levophed-Dextrose 4 Mg/250 Ml Drip) 4 mg in 250 mls @ 7.5 mls/hr IV.SIG TITRATE PRN; Protocol PRN Reason: Per Protocol Last Titration: 02/07/18 00:21 Dose: 1 mcg/min, 3.75 mls/hr Ceftaroline Fosamil 300 mg/ (Sodium Chloride) 100 mls @ 100 mls/hr IV.SIG Q12H [facility] Last Infusion: 02/07/18 03:41 Dose: Infused Albumin Human (Flexbumin 25% Inj) 100 mls @ 60 mls/hr IV.SIG Q12H [facility] Last Infusion: 02/07/18 04:22 Dose: Infused Daptomycin 800 mg/ Sodium (Chloride) 100 mls @ 200 mls/hr IV.SIG Q48H [facility] Last Infusion: 02/05/18 16:08 Dose: Infused Aztreonam 1,000 mg/ Sodium (Chloride) 100 mls @ 200 mls/hr IV.SIG Q6H [facility] Last Infusion: 02/07/18 03:41 Dose: Infused Micafungin Sodium 150 mg/ (Sodium Chloride) 100 mls @ 100 mls/hr IV.SIG Q24H [facility] Last Infusion: 02/06/18 23:06 Dose: Infused Lactulose (Lactulose Liq) 30 ml PO BID PRN PRN Reason: CONSTIPATION Levothyroxine Sodium (Synthroid) 100 mcg PO DAILY@0600 [facility] Last Admin: 02/07/18 05:29 Dose: 100 mcg Melatonin (Melatonin) 5 mg PO HS [facility] Last Admin: 02/06/18 20:24 Dose: 5 mg Metoprolol Tartrate (Lopressor) 12.5 mg PO BID [facility] Last Admin: 01/31/18 21:28 Dose: 12.5 mg Miscellaneous (Pill Splitter) 1 each OTHER UNSCH PRN PRN Reason: PILL SPIT Miscellaneous Medication () 1 each OROPHARYNG 0000,0400,1200,1600 [facility] Last Admin: 02/07/18 04:29 Dose: 1 each Morphine Sulfate (Morphine Inj) 1 mg IV.PUSH Q3H PRN PRN Reason: pain 1-10 when npo Ondansetron HCl (Zofran Inj) 4 mg IV.PUSH Q6H PRN PRN Reason: NAUSEA OR VOMITING Pantoprazole Sodium (Protonix Inj) 40 mg IV.PUSH DAILY [facility] Last Admin: 02/06/18 09:04 Dose: 40 mg Potassium Bicarbonate (Effer-K) 25 meq PO BID [facility] Last Admin: 02/06/18 20:24 Dose: 25 meq Senna/Docusate Sodium (Diana-Colace) 1 tab PO BID [facility] Last Admin: 02/06/18 20:25 Dose: Not Given Sennosides (Senokot) 17.2 mg PO Q12H PRN PRN Reason: Moderate Constipation Sodium Chloride (Ns Flush) 2 ml IV.FLUSH BID [facility] Last Admin: 02/06/18 20:25 Dose: 2 ml Sodium Chloride (Ns Flush) 2 ml IV.FLUSH PRN PRN PRN Reason: FLUSH AFTER USING IV ACCESS Last Admin: 02/03/18 20:13 Dose: 2 ml Tamsulosin HCl (Flomax) 0.4 mg PO DAILY [facility] Last Admin: 02/06/18 09:04 Dose: 0.4 mg Terbutaline Sulfate (Brethine Inj) 1 mg SQ UNSCH PRN PRN Reason: For Extravasation Allergies/Adverse Reactions: Allergies Allergy/AdvReac Type Severity Reaction Status Date / Time amoxicillin Allergy Severe Hives Verified 01/13/18 20:44 Review of Systems All other systems reviewed negative except as stated in HPI Physical Exam Vital signs: Vital Signs 02/06/18 08:45 02/06/18 09:00 02/06/18 09:15 Temperature Pulse Rate 88 88 97 H Respiratory Rate 16 16 17 Blood Pressure 137/78 143/68 H 153/72 H Pulse Oximetry 97 97 97 02/06/18 09:30 02/06/18 09:33 02/06/18 09:45 Temperature Pulse Rate 89 105 H Respiratory Rate 16 22 17 Blood Pressure 160/67 H 139/63 Pulse Oximetry 98 97 95 02/06/18 10:00 02/06/18 10:15 02/06/18 10:30 Temperature Pulse Rate 105 H 102 H 104 H Respiratory Rate 22 16 24 Blood Pressure 137/64 144/63 H 140/62 Pulse Oximetry 96 96 96 02/06/18 10:45 02/06/18 11:00 02/06/18 11:15 Temperature Pulse Rate 105 H 100 H 100 H Respiratory Rate 20 32 H 13 Blood Pressure 131/65 121/58 L 115/53 L Pulse Oximetry 96 94 L 96 02/06/18 11:22 02/06/18 11:30 02/06/18 11:45 Temperature Pulse Rate 114 H 110 H Respiratory Rate 16 20 20 Blood Pressure 137/60 124/60 Pulse Oximetry 96 96 96 02/06/18 12:00 02/06/18 12:15 02/06/18 12:30 Temperature 98.9 F Pulse Rate 104 H 100 H 110 H Respiratory Rate 17 20 16 Blood Pressure 118/61 112/55 L 151/67 H Pulse Oximetry 96 95 95 02/06/18 12:45 02/06/18 13:00 02/06/18 13:15 Temperature Pulse Rate 108 H 115 H 114 H Respiratory Rate 14 14 15 Blood Pressure 136/71 150/72 H Pulse Oximetry 96 96 91 L 02/06/18 13:30 02/06/18 13:45 02/06/18 14:00 Temperature Pulse Rate 111 H 110 H 115 H Respiratory Rate 16 14 14 Blood Pressure 132/78 141/63 H 153/78 H Pulse Oximetry 95 88 L 96 02/06/18 14:15 02/06/18 14:30 02/06/18 14:45 Temperature Pulse Rate 112 H 113 H 108 H Respiratory Rate 14 16 14 Blood Pressure 163/67 H 143/68 H 136/69 Pulse Oximetry 96 89 L 95 02/06/18 15:00 02/06/18 15:15 02/06/18 15:30 Temperature Pulse Rate 107 H 116 H 116 H Respiratory Rate 14 14 17 Blood Pressure 148/66 H 154/72 H 153/74 H Pulse Oximetry 95 95 95 02/06/18 15:45 02/06/18 16:00 02/06/18 16:15 Temperature 99 F Pulse Rate 110 H 115 H 110 H Respiratory Rate 14 15 14 Blood Pressure 139/70 155/72 H 158/70 H Pulse Oximetry 95 95 94 L 02/06/18 16:28 02/06/18 16:30 02/06/18 16:45 Temperature Pulse Rate 109 H 109 H Respiratory Rate 14 14 15 Blood Pressure 145/60 H 157/69 H Pulse Oximetry 95 95 95 02/06/18 17:00 02/06/18 19:00 02/06/18 20:00 Temperature 99.5 F Pulse Rate 109 H 96 H 100 H Respiratory Rate 15 14 15 Blood Pressure 157/69 H 140/64 151/59 H Pulse Oximetry 96 94 L 95 02/06/18 20:12 02/06/18 21:00 02/06/18 22:00 Temperature Pulse Rate 98 H 96 H Respiratory Rate 15 14 14 Blood Pressure 134/64 135/63 Pulse Oximetry 96 96 95 02/06/18 23:00 02/06/18 23:40 02/07/18 00:00 Temperature 100.3 F H Pulse Rate 95 H 83 Respiratory Rate 14 15 14 Blood Pressure 113/66 125/58 L Pulse Oximetry 95 97 97 02/07/18 00:15 02/07/18 00:30 02/07/18 00:45 Temperature Pulse Rate 82 83 88 Respiratory Rate 14 14 14 Blood Pressure 125/53 L 124/56 L 122/57 L Pulse Oximetry 97 97 96 02/07/18 01:00 02/07/18 01:15 02/07/18 01:30 Temperature Pulse Rate 88 90 83 Respiratory Rate 15 15 14 Blood Pressure 124/57 L 150/64 H 149/65 H Pulse Oximetry 97 96 96 02/07/18 01:45 02/07/18 02:00 02/07/18 02:15 Temperature Pulse Rate 85 88 90 Respiratory Rate 14 15 14 Blood Pressure 136/67 133/70 122/67 Pulse Oximetry 96 97 97 02/07/18 02:30 02/07/18 02:45 02/07/18 03:00 Temperature Pulse Rate 89 92 H 87 Respiratory Rate 14 15 15 Blood Pressure 133/62 140/63 146/63 H Pulse Oximetry 96 96 96 02/07/18 03:15 02/07/18 03:30 02/07/18 03:45 Temperature Pulse Rate 90 94 H 84 Respiratory Rate 14 17 14 Blood Pressure 152/65 H 152/65 H 130/57 L Pulse Oximetry 96 96 96 02/07/18 03:47 02/07/18 04:00 02/07/18 04:15 Temperature 99.2 F Pulse Rate 86 86 Respiratory Rate 14 16 15 Blood Pressure 133/62 135/62 Pulse Oximetry 96 95 96 02/07/18 04:30 02/07/18 04:45 02/07/18 05:00 Temperature 99.2 F Pulse Rate 87 90 89 Respiratory Rate 16 15 16 Blood Pressure 135/60 144/63 H 137/64 Pulse Oximetry 96 95 95 02/07/18 05:15 02/07/18 05:30 02/07/18 05:45 Temperature Pulse Rate 91 H 91 H 97 H Respiratory Rate 16 16 22 Blood Pressure 148/68 H 153/67 H 155/70 H Pulse Oximetry 95 95 02/07/18 06:00 02/07/18 06:15 02/07/18 06:30 Temperature Pulse Rate 87 82 88 Respiratory Rate 15 14 15 Blood Pressure 122/58 L 117/58 L 118/55 L Pulse Oximetry 96 96 96 02/07/18 06:45 02/07/18 07:00 02/07/18 07:15 Temperature Pulse Rate 83 83 84 Respiratory Rate 15 16 14 Blood Pressure 125/60 139/65 139/63 Pulse Oximetry 96 96 96 02/07/18 07:30 Temperature Pulse Rate 85 Respiratory Rate 16 Blood Pressure 164/77 H Pulse Oximetry 96 Intake & Output 02/06/18 02/07/18 02/07/18 18:59 06:59 18:59 Intake Total 600 / 600 1515 / 1515 Output Total 750 / 750 675 / 675 Balance -150 / -150 840 / 840 Weight 79.6 kg Intake: IV 500 / 500 500 / 500 Lasix Inj 100 MG In NS Inj 90 100 / 100 ML @ 3 mls/hr IV.CONT .Q24H [facility] Rx#:[id number] Flexbumin 25% Inj 100 ML @ 60 100 / 100 100 / 100 mls/hr IV.SIG Q12H [facility] Rx#: [id number] Azactam Inj 1,000 MG In NS Inj 200 / 200 200 / 200 100 ML @ 200 mls/hr IV.SIG Q6H [facility] Rx#:[id number] Teflaro Inj 300 MG In NS Inj 100 / 100 100 / 100 100 ML @ 100 mls/hr IV.SIG Q12H [facility] Rx#:[id number] Mycamine Inj 150 MG In NS Inj 100 / 100 100 ML @ 100 mls/hr IV.SIG Q24H [facility] Rx#:[id number] Tube Feeding 895 / 895 Tube Irrigant 120 / 120 Anesthesia Amount 100 / 100 Output: Urine Amount (Catheter) 750 / 750 675 / 675 Indwelling Urethral Catheter 750 / 750 675 / 675 Other: Date of Last Bowel Movement 02/06/18 02/07/18 02/06/18 # Bowel Movements 1 Narrative: GENERAL: Alert SKIN: Warm and dry. HEAD: Normocephalic. EYES: No scleral icterus. NECK: Supple, trachea midline. Tracheostomy CARDIOVASCULAR: Regular RESPIRATORY: Intubated, no accessory muscle use GASTROINTESTINAL: Abdomen soft, non-tender, EXTREMITIES: Contraction boots and lower extremities NEUROLOGICAL: alerts, trach in place, follows motor request closes eyes she has 2 fingers with each hand, can raise both upper extremity to gravity but not the lower and able to slightly wiggle his toes, has peripheral edema severe generalized weakness unable to raise any extremity to gravity depressed reflexes plantarflex her no clonus - Constitutional no acute distress - Routine HEENT Exam Head: Present: normocephalic Eye: Present: EOMI - Urinary Catheter Management Condom Cath placed during this visit: no Indwelling Urethral Catheter Cath placed during this visit: yes Reason for continuing: Hourly intake/output Insertion date: 01/20/18 Insertion time: 11:30 Objective Laboratory Results - last 24 hr 02/06/18 02/07/18 02/07/18 09:15 06:00 06:00 WBC 8.0 7.4 RBC 3.09 L 2.87 L Hgb 8.6 L 8.0 L Hct 25.6 L 24.0 L MCV 82.9 83.8 MCH 27.7 28.1 MCHC 33.5 33.5 RDW 18.4 H 18.8 H Plt Count 262 268 MPV 9.5 9.5 Prelim Diff (Auto) Slide review pending Slide review pending Neut % (Auto) 82.6 H 81.2 H Lymph % (Auto) 9.5 10.5 Coleman % (Auto) 3.6 4.2 Eos % (Auto) 4.0 3.8 Baso % (Auto) 0.3 0.3 Neut # (Auto) 6.6 6.0 Lymph # (Auto) 0.8 L 0.8 L Coleman # (Auto) 0.3 0.3 Eos # (Auto) 0.3 0.3 Baso # (Auto) 0.0 0.0 WBC Differential Manual diff final Manual diff final Seg Neuts % (Manual) 73 H 70 Band Neuts % (Manual) 18 H 13 H Lymphocytes % (Manual) 3 L 9 Monocytes % (Manual) 3 1 Eosinophils % (Manual) 1 5 H Metamyelocytes % (Man) 2 H Myelocytes % (Man) 1 H Promyelocytes % (Man) 1 H Abs Neuts (Manual) 7.4 6.3 Differential Comment . . Platelet Estimate Normal Normal Platelet Morphology Normal Normal Spherocytes Occ H Ovalocytes 1+ H Keratocytes Occ H Sodium 140 Potassium 3.5 Chloride 106 Carbon Dioxide 23.2 Anion Gap 11 BUN 72 H Creatinine 2.27 H Estimated GFR 28 L Random Glucose 146 H Calcium 8.5 Microbiology 01/30/18 15:00 Fungal Smear - Final Fluid - Pleural fluid No fungal elements seen Fungal Culture - Preliminary No growth in 1 week 02/03/18 12:50 Aerobic Blood Culture - Preliminary Blood - Peripheral No growth in 3 days Anaerobic Blood Culture - Preliminary No growth in 3 days 02/03/18 12:56 Aerobic Blood Culture - Preliminary Blood - Peripheral No growth in 3 days Anaerobic Blood Culture - Preliminary No growth in 3 days 02/04/18 15:24 Gram Stain - Final Sputum - Endotracheal Sputum Culture - Final No growth in 48 hours Review/Management - Diagnosis (1) Disuse muscle atrophy Code(s): M62.50 - Muscle wasting and atrophy, not elsewhere classified, unspecified site Status: Acute Current Visit: Yes (2) Weakness Code(s): R53.1 - Weakness Status: Acute Current Visit: Yes (3) Acute UTI Code(s): N39.0 - Urinary tract infection, site not specified Status: Acute Current Visit: Yes (4) Atrial fibrillation Code(s): I48.91 - Unspecified atrial fibrillation Status: Acute Current Visit: Yes (5) Encephalomalacia on imaging study Code(s): G93.89 - Other specified disorders of brain Status: Acute Current Visit: Yes (6) Renal insufficiency Code(s): N28.9 - Disorder of kidney and ureter, unspecified Status: Acute Current Visit: Yes (7) MRSA (methicillin resistant Staphylococcus aureus) Code(s): A49.02 - Methicillin resistant Staphylococcus aureus infection, unspecified site Status: Acute Current Visit: Yes (8) Sepsis Code(s): A41.9 - Sepsis, unspecified organism Status: Acute Current Visit: Yes (9) Acute renal failure Code(s): N17.9 - Acute kidney failure, unspecified Status: Acute Current Visit: Yes (10) Pulmonary edema Code(s): J81.1 - Chronic pulmonary edema Status: Acute Current Visit: Yes (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 Status: Acute Current Visit: Yes (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 Code(s): G72.81 - Critical illness myopathy Status: Acute Current Visit: Yes - Review/Management Plan: Subacute progressive weakness apparently occurring couple days after flu vaccine however, found to have MRSA sepsis, shoulder abscess and possibly lumbar spine infection CK level and prealbumin is low disuse atrophy 2/2 sepsis/bedridden for weeks Moderate left frontal encephalomalacia appearing to be from meningioma resection bilateral shoulder i/d, arthrotomy Progressive renal failure, hypoalbuminemia, anasarca Critical illness mononeuropathy uremia which could cause hypersomnolence and metabolic encephalopathy Recommendation Able to follow motor requests Blood thinners for DVT prophylaxis and patient being a bedridden status per critical care Aggressive nutritional support. Severely weak DVT prophylaxis, blood thinners per CCM CCM/ID/renal management (4) Atrial fibrillation Qualifiers: Atrial fibrillation type: unspecified Qualified Code(s): I48.91 - Unspecified atrial fibrillation (8) Sepsis Qualifiers: Sepsis type: methicillin resistant Staphylococcus aureus Qualified Code(s): A41.02 - Sepsis due to Methicillin resistant Staphylococcus aureus
[2018-02-07] MEDS: Senna/Docusate Sodium 8.6/50 MG Tablet PO SCH ×2 (08:58→20:18)
[2018-02-07] MEDS: Pantoprazole Inj 40 MG Vial IV.PUSH SCH (08:58)
[2018-02-07] MEDS: Potassium Bicarbonate 25 MEQ Effervescent Tablet PO SCH ×2 (08:58→20:18)
[2018-02-07] MEDS: Citalopram 20 MG Tablet PO SCH (08:58)
[2018-02-07] MEDS: Chlorhexidine 0.12% Oral Kit 15 ML UDC OROPHARYNG SCH ×2 (08:59→20:18)
--- NOTE | 2018-02-07 12:18 | XR ---
EXAM DATE: 02/07/2018 11:57 AM EST AGE/SEX: 82 years / Male INDICATIONS: Abdominal distention. CLINICAL DATA: This is the patient's subsequent encounter. Patient reports that signs and symptoms h ave been present for 1 day and indicates a pain score of Nonresponsive. MEDICAL/SURGICAL HISTORY: . Hypertension. Hypothyroidism. Atrial fibrillation. Benign prostatic hyperplasia. MRSA. Peptic ulcer disease. . Neck surgery. Lumbar surgery. COMPARISON: No prior exams available for comparison. FINDINGS: Minimal gaseous distention of large and small bowel is present consistent ileus. Small bore chest tube in place on the right Minimal parental changes left base Extensive previous lumbar spine surgery. CONCLUSION: Minimal gaseous distention suggesting ileus. Electronically signed by: Jacky Sherman MD Board Certified Radiologist 02/07/2018 12:17 PM EST
--- NOTE | 2018-02-07 13:27 | MR ---
EXAM DATE: 02/07/2018 12:29 PM EST AGE/SEX: 82 years / Male INDICATIONS: Elevated lab values and abnormal gallbladder ultrasound demonstrating wall thickening an d debris. Mild intrahepatic ductal enlargement was present. CLINICAL DATA: This is the patient's initial encounter. Patient reports that signs and symptoms have been present for 1 day and indicates a pain score of 0/10. MEDICAL/SURGICAL HISTORY: Hypertension. Appendectomy. Peg tube placement. Tracheostomy. Sepsis COMPARISON: [facility] [place], CT ABDOMEN & PELVIS W CONTRAST, 01/13/2018. . TECHNIQUE: Multiplanar, multisequence images of the abdomen were obtained without contrast including dedicated cholangiographic images. FINDINGS: Liver: The liver is homogeneous and normal in signal intensity with no focal defects. Intrahepatic Bile Ducts: There is no intrahepatic biliary ductal dilatation. Common Bile Duct: The common bile duct is not well visualized and is not enlarged. Gallbladder: The gallbladder is normal in size and wall thickness. There are 2 tiny low signal struc tures layering dependently consistent with small gallstones.. Pancreas: The pancreas appears normal in signal with no focal parenchymal abnormalities. The pancrea tic duct is normal in caliber with no filling defects, or obstructing lesions identified. Multiple cysts are noted in the right kidney. There are small bilateral pleural effusions. There is c ardiomegaly. Distensive postsurgical changes are noted in the spine status post multilevel fusion wit h susceptibility artifact. CONCLUSION: 1. Comment bile duct is not well visualized on the study and appears small in size and is not enlarg ed. 2. 2 apparent tiny gallstones layering dependently in the gallbladder with no wall thickening or inf lammatory change. 3. Multiple benign cystic structures in the right kidney. 4. Small bilateral pleural effusions. Electronically signed by: Ronnie Khalil MD Board Certified Radiologist 02/07/2018 1:25 PM EST
--- NOTE | 2018-02-07 13:36 | P.CONREH ---
History of Present Illness Service: Physical Medicine and Rehabilitation Consult date: 02/07/18 Reason for Consult: Comprehensive rehabilitation evaluation Primary Care Provider: Everton Velazquez MD Chief Complaint: Respiratory distress History of Present Illness: Jaqueline Lujan is an 83 year old Review of Systems other (Unable to complete; patient on vent ) PMFSH - History History Provided By: Family Member - Medical History Medical History: Medical History (Last Reviewed 02/11/18 @ 07:39 by Elizabeth Velez) Atrial fibrillation BPH (benign prostatic hyperplasia) Depression HTN (hypertension) History of MRSA infection Onset Date: ~01/14/18 Hypothyroid PUD (peptic ulcer disease) - Surgical History Surgical History: Surgical History (Last Reviewed 02/11/18 @ 07:39 by Elizabeth Velez) H/O neck surgery - Family History Family History: Family History (Last Reviewed 02/10/18 @ 09:04 by Kasey Mcconnell) Other Family history normal - Tobacco History Second Hand Smoke Exposure: No Tobacco Use In Past 30 Days: No Smoking Status: Former smoker Tobacco Type: Cigars - Alcohol History How Often Do You Have a Drink Containing Alcohol: Never - Substance Use History Substance History: No History of Abuse - Travel History Recent Travel in the [place] Within the Last 8 Weeks: No Recent Travel Out of the Country Within the Last 8 Weeks: Yes - Immunization History Tetanus Immunization: Unsure Hx Influenza Vaccine This Season: Yes Medications and Allergies Active Medications: Active Medications Acetaminophen (Tylenol) 650 mg PO Q4H PRN PRN Reason: Temp > 100.4 Last Admin: 01/31/18 16:32 Dose: 650 mg Acetaminophen (Tylenol Liq) 650 mg PO Q6HR [facility] Last Admin: 02/07/18 12:42 Dose: 650 mg Hydrocodone Bitart/Acetaminophen ([place] 5/325) 1 tab PO Q4H PRN PRN Reason: PAIN LESS THAN 5 ON SCALE Last Admin: 02/01/18 21:06 Dose: 1 tab Hydrocodone Bitart/Acetaminophen ([place] 5/325) 2 tab PO Q6H PRN PRN Reason: PAIN SCALE 5 TO 10 Last Admin: 02/01/18 09:05 Dose: 2 tab Al Hydroxide/Mg Hydroxide (Milk Of Magnesia Liq) 30 ml PO Q12H PRN PRN Reason: CONSTIPATION Albuterol (Duoneb Neb (Prn)) 1 ampul NEB Q2HR NEB PRN PRN Reason: WHEEZING Last Admin: 02/04/18 19:59 Dose: 1 ampul Amlodipine Besylate (Norvasc) 10 mg PO DAILY [facility] Last Admin: 01/30/18 10:40 Dose: 10 mg Bisacodyl (Dulcolax Supp) 10 mg RECTAL DAILY PRN PRN Reason: SEVERE CONSITIPATION Chlorhexidine Gluconate (Peridex 0.12% Oral Kit) 15 ml OROPHARYNG BID@0800, 2000 [facility] Last Admin: 02/07/18 08:59 Dose: 15 ml Citalopram Hydrobromide (Celexa) 20 mg PO DAILY [facility] Last Admin: 02/07/18 08:58 Dose: 20 mg Epinephrine (Racepinephrine 2.25% Neb) 0.5 ml NEB Q3HR NEB PRN PRN Reason: any upper airway noise or stri Furosemide (Lasix Inj) 40 mg IV.PUSH DAILY [facility] Last Admin: 02/07/18 08:58 Dose: 40 mg Gelatin (Gelfoam 12 Mm/7 Mm Topical) 3 foam TOPICAL NOW [facility] Last Admin: 02/06/18 01:57 Dose: 3 foam Hydralazine HCl (Apresoline Inj) 20 mg IV.PUSH Q4H PRN PRN Reason: SBP>160, DBP>90 Last Admin: 02/05/18 14:09 Dose: 20 mg Sodium Chloride (Ns Inj) 500 mls @ 30 mls/hr IV.SIG .Q10H [facility] Norepinephrine Bitartrate (Levophed-Dextrose 4 Mg/250 Ml Drip) 4 mg in 250 mls @ 7.5 mls/hr IV.SIG TITRATE PRN; Protocol PRN Reason: Per Protocol Last Titration: 02/07/18 00:21 Dose: 1 mcg/min, 3.75 mls/hr Ceftaroline Fosamil 300 mg/ (Sodium Chloride) 100 mls @ 100 mls/hr IV.SIG Q12H [facility] Last Infusion: 02/07/18 03:41 Dose: Infused Albumin Human (Flexbumin 25% Inj) 100 mls @ 60 mls/hr IV.SIG Q12H [facility] Last Infusion: 02/07/18 04:22 Dose: Infused Daptomycin 800 mg/ Sodium (Chloride) 100 mls @ 200 mls/hr IV.SIG Q48H [facility] Last Infusion: 02/05/18 16:08 Dose: Infused Aztreonam 1,000 mg/ Sodium (Chloride) 100 mls @ 200 mls/hr IV.SIG Q6H [facility] Last Admin: 02/07/18 08:58 Dose: 100 mls/hr Micafungin Sodium 150 mg/ (Sodium Chloride) 100 mls @ 100 mls/hr IV.SIG Q24H [facility] Last Infusion: 02/06/18 23:06 Dose: Infused Metronidazole/Sodium Chloride (Flagyl 500 Mg Inj) 100 mls @ 100 mls/hr IV.SIG Q6H [facility] Last Admin: 02/07/18 12:43 Dose: 100 mls/hr Lactulose (Lactulose Liq) 30 ml PO BID PRN PRN Reason: CONSTIPATION Levothyroxine Sodium (Synthroid) 100 mcg PO DAILY@0600 [facility] Last Admin: 02/07/18 05:29 Dose: 100 mcg Melatonin (Melatonin) 5 mg PO HS [facility] Last Admin: 02/06/18 20:24 Dose: 5 mg Metoprolol Tartrate (Lopressor) 12.5 mg PO BID [facility] Last Admin: 01/31/18 21:28 Dose: 12.5 mg Miscellaneous (Pill Splitter) 1 each OTHER UNSCH PRN PRN Reason: PILL SPIT Miscellaneous Medication () 1 each OROPHARYNG 0000,0400,1200,1600 [facility] Last Admin: 02/07/18 12:43 Dose: 1 each Morphine Sulfate (Morphine Inj) 1 mg IV.PUSH Q3H PRN PRN Reason: pain 1-10 when npo Ondansetron HCl (Zofran Inj) 4 mg IV.PUSH Q6H PRN PRN Reason: NAUSEA OR VOMITING Pantoprazole Sodium (Protonix Inj) 40 mg IV.PUSH DAILY [facility] Last Admin: 02/07/18 08:58 Dose: 40 mg Potassium Bicarbonate (Effer-K) 25 meq PO BID [facility] Last Admin: 02/07/18 08:58 Dose: 25 meq Senna/Docusate Sodium (Diana-Colace) 1 tab PO BID [facility] Last Admin: 02/07/18 08:58 Dose: 1 tab Sennosides (Senokot) 17.2 mg PO Q12H PRN PRN Reason: Moderate Constipation Sodium Chloride (Ns Flush) 2 ml IV.FLUSH BID [facility] Last Admin: 02/07/18 08:59 Dose: 2 ml Sodium Chloride (Ns Flush) 2 ml IV.FLUSH PRN PRN PRN Reason: FLUSH AFTER USING IV ACCESS Last Admin: 02/03/18 20:13 Dose: 2 ml Tamsulosin HCl (Flomax) 0.4 mg PO DAILY [facility] Last Admin: 02/07/18 08:58 Dose: 0.4 mg Terbutaline Sulfate (Brethine Inj) 1 mg SQ UNSCH PRN PRN Reason: For Extravasation Allergies Allergy/AdvReac Type Severity Reaction Status Date / Time amoxicillin Allergy Severe Hives Verified 01/13/18 20:44 Home Medications Medication Instructions Recorded Confirmed Type citalopram 20 mg PO DAILY 01/13/18 01/13/18 History tamsulosin [Flomax] 0.4 mg PO DAILY 01/13/18 01/13/18 History Exam - Physical Examination Vital Signs / I&O: Vital Signs 02/06/18 13:45 02/06/18 14:00 02/06/18 14:15 Temperature Pulse Rate 110 H 115 H 112 H Respiratory Rate 14 14 14 Blood Pressure 141/63 H 153/78 H 163/67 H Pulse Oximetry 88 L 96 96 02/06/18 14:30 02/06/18 14:45 02/06/18 15:00 Temperature Pulse Rate 113 H 108 H 107 H Respiratory Rate 16 14 14 Blood Pressure 143/68 H 136/69 148/66 H Pulse Oximetry 89 L 95 95 02/06/18 15:15 02/06/18 15:30 02/06/18 15:45 Temperature Pulse Rate 116 H 116 H 110 H Respiratory Rate 14 17 14 Blood Pressure 154/72 H 153/74 H 139/70 Pulse Oximetry 95 95 95 02/06/18 16:00 02/06/18 16:15 02/06/18 16:28 Temperature 99 F Pulse Rate 115 H 110 H Respiratory Rate 15 14 14 Blood Pressure 155/72 H 158/70 H Pulse Oximetry 95 94 L 95 02/06/18 16:30 02/06/18 16:45 02/06/18 17:00 Temperature Pulse Rate 109 H 109 H 109 H Respiratory Rate 14 15 15 Blood Pressure 145/60 H 157/69 H 157/69 H Pulse Oximetry 95 95 96 02/06/18 19:00 02/06/18 20:00 02/06/18 20:12 Temperature 99.5 F Pulse Rate 96 H 100 H Respiratory Rate 14 15 15 Blood Pressure 140/64 151/59 H Pulse Oximetry 94 L 95 96 02/06/18 21:00 02/06/18 22:00 02/06/18 23:00 Temperature Pulse Rate 98 H 96 H 95 H Respiratory Rate 14 14 14 Blood Pressure 134/64 135/63 113/66 Pulse Oximetry 96 95 95 02/06/18 23:40 02/07/18 00:00 02/07/18 00:15 Temperature 100.3 F H Pulse Rate 83 82 Respiratory Rate 15 14 14 Blood Pressure 125/58 L 125/53 L Pulse Oximetry 97 97 97 02/07/18 00:30 02/07/18 00:45 02/07/18 01:00 Temperature Pulse Rate 83 88 88 Respiratory Rate 14 14 15 Blood Pressure 124/56 L 122/57 L 124/57 L Pulse Oximetry 97 96 97 02/07/18 01:15 02/07/18 01:30 02/07/18 01:45 Temperature Pulse Rate 90 83 85 Respiratory Rate 15 14 14 Blood Pressure 150/64 H 149/65 H 136/67 Pulse Oximetry 96 96 96 02/07/18 02:00 02/07/18 02:15 02/07/18 02:30 Temperature Pulse Rate 88 90 89 Respiratory Rate 15 14 14 Blood Pressure 133/70 122/67 133/62 Pulse Oximetry 97 97 96 02/07/18 02:45 02/07/18 03:00 02/07/18 03:15 Temperature Pulse Rate 92 H 87 90 Respiratory Rate 15 15 14 Blood Pressure 140/63 146/63 H 152/65 H Pulse Oximetry 96 96 96 02/07/18 03:30 02/07/18 03:45 02/07/18 03:47 Temperature Pulse Rate 94 H 84 Respiratory Rate 17 14 14 Blood Pressure 152/65 H 130/57 L Pulse Oximetry 96 96 96 02/07/18 04:00 02/07/18 04:15 02/07/18 04:30 Temperature 99.2 F Pulse Rate 86 86 87 Respiratory Rate 16 15 16 Blood Pressure 133/62 135/62 135/60 Pulse Oximetry 95 96 96 02/07/18 04:45 02/07/18 05:00 02/07/18 05:15 Temperature 99.2 F Pulse Rate 90 89 91 H Respiratory Rate 15 16 16 Blood Pressure 144/63 H 137/64 148/68 H Pulse Oximetry 95 95 95 02/07/18 05:30 02/07/18 05:45 02/07/18 06:00 Temperature Pulse Rate 91 H 97 H 87 Respiratory Rate 16 22 15 Blood Pressure 153/67 H 155/70 H 122/58 L Pulse Oximetry 95 96 02/07/18 06:15 02/07/18 06:30 02/07/18 06:45 Temperature Pulse Rate 82 88 83 Respiratory Rate 14 15 15 Blood Pressure 117/58 L 118/55 L 125/60 Pulse Oximetry 96 96 96 02/07/18 07:00 02/07/18 07:15 02/07/18 07:30 Temperature Pulse Rate 83 84 85 Respiratory Rate 16 14 16 Blood Pressure 139/65 139/63 164/77 H Pulse Oximetry 96 96 96 02/07/18 07:45 02/07/18 08:00 02/07/18 08:15 Temperature 99.5 F Pulse Rate 89 94 H 83 Respiratory Rate 16 19 15 Blood Pressure 133/63 162/67 H 158/68 H Pulse Oximetry 96 96 96 02/07/18 08:30 02/07/18 08:45 02/07/18 09:00 Temperature Pulse Rate 87 92 H 85 Respiratory Rate 15 18 14 Blood Pressure 164/72 H 155/58 H 139/63 Pulse Oximetry 96 97 97 02/07/18 09:11 02/07/18 09:15 02/07/18 09:30 Temperature Pulse Rate 85 87 Respiratory Rate 18 28 H 35 H Blood Pressure 143/63 H 151/57 H Pulse Oximetry 97 97 97 02/07/18 09:45 02/07/18 12:32 02/07/18 12:34 Temperature Pulse Rate 91 H Respiratory Rate 38 H 23 Blood Pressure 157/66 H Pulse Oximetry 97 95 100 Intake & Output 02/06/18 02/07/18 02/07/18 18:59 06:59 18:59 Intake Total 600 / 600 1515 / 1515 Output Total 750 / 750 675 / 675 Balance -150 / -150 840 / 840 Weight 79.6 kg Intake: IV 500 / 500 500 / 500 Lasix Inj 100 MG In NS Inj 90 100 / 100 ML @ 3 mls/hr IV.CONT .Q24H [facility] Rx#:[id number] Flexbumin 25% Inj 100 ML @ 60 100 / 100 100 / 100 mls/hr IV.SIG Q12H [facility] Rx#: [id number] Azactam Inj 1,000 MG In NS Inj 200 / 200 200 / 200 100 ML @ 200 mls/hr IV.SIG Q6H [facility] Rx#:[id number] Teflaro Inj 300 MG In NS Inj 100 / 100 100 / 100 100 ML @ 100 mls/hr IV.SIG Q12H [facility] Rx#:[id number] Mycamine Inj 150 MG In NS Inj 100 / 100 100 ML @ 100 mls/hr IV.SIG Q24H [facility] Rx#:[id number] Tube Feeding 895 / 895 Tube Irrigant 120 / 120 Anesthesia Amount 100 / 100 Output: Urine Amount (Catheter) 750 / 750 675 / 675 Indwelling Urethral Catheter 750 / 750 675 / 675 Other: Date of Last Bowel Movement 02/06/18 02/07/18 02/06/18 # Bowel Movements 1 Intake & Output 02/05/18 02/06/18 02/07/18 02/08/18 06:59 06:59 06:59 06:59 Intake Total 2479 / 2479 3417 / 3417 2115 / 2115 Output Total 2990 / 2990 2115 / 2115 1425 / 1425 Balance -511 / -511 1302 / 1302 690 / 690 Weight 78.5 kg 78.8 kg 79.6 kg General: Sedated, Other (Trach on vent) Respiratory: BS equal, Coarse breath sounds Gastrointestinal: Positive bowel sounds Date of Last Bowel Movement: 02/06/18 Cardiovascular: Normal rate, Regular rhythm Skin: No rash Musculoskeletal: ROM (Finger flexor tone increased but ROM within functional limits; bilateral ankle plantarflexion but ankle ROM to neutral) - Neurologic Neurologic: Pupils (Reactive) Results - Labs CBC & Chem 7: 02/11/18 04:25 02/11/18 04:25 Labs: Laboratory Results - last 24 hr 02/07/18 02/07/18 06:00 06:00 WBC 7.4 RBC 2.87 L Hgb 8.0 L Hct 24.0 L MCV 83.8 MCH 28.1 MCHC 33.5 RDW 18.8 H Plt Count 268 MPV 9.5 Prelim Diff (Auto) Slide review pending Neut % (Auto) 81.2 H Lymph % (Auto) 10.5 Maries % (Auto) 4.2 Eos % (Auto) 3.8 Baso % (Auto) 0.3 Neut # (Auto) 6.0 Lymph # (Auto) 0.8 L Maries # (Auto) 0.3 Eos # (Auto) 0.3 Baso # (Auto) 0.0 WBC Differential Manual diff final Seg Neuts % (Manual) 70 Band Neuts % (Manual) 13 H Lymphocytes % (Manual) 9 Monocytes % (Manual) 1 Eosinophils % (Manual) 5 H Myelocytes % (Man) 1 H Promyelocytes % (Man) 1 H Abs Neuts (Manual) 6.3 Differential Comment . Platelet Estimate Normal Platelet Morphology Normal Spherocytes Occ H Ovalocytes 1+ H Keratocytes Occ H Sodium 140 Potassium 3.5 Chloride 106 Carbon Dioxide 23.2 Anion Gap 11 BUN 72 H Creatinine 2.27 H Estimated GFR 28 L Random Glucose 146 H Calcium 8.5 - Imaging Impressions Gallbladder Ultrasound 02/06/18 00:00 CONCLUSION: 1. Gallbladder wall thickening with significant debris within the gallbladder. 2. Mild intrahepatic biliary duct enlargement. 3. Normal common bile duct. 4. If biliary obstructive disease is suspected further evaluation with MRCP should be considered. 5. Nonvisualization of the pancreas. Cholangiopancreatography MRI 02/07/18 00:00 CONCLUSION: 1. Comment bile duct is not well visualized on the study and appears small in size and is not enlarged. 2. 2 apparent tiny gallstones layering dependently in the gallbladder with no wall thickening or inflammatory change. 3. Multiple benign cystic structures in the right kidney. 4. Small bilateral pleural effusions. Abdomen X-Ray 02/07/18 11:07 CONCLUSION: Minimal gaseous distention suggesting ileus. 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 PT is proving ROM. Continue to address ROM and facilitation as well as bed mobility which is dependent 2. OT for UE ROM and strengthening. ADL's are dependent 3. Case management is addressing discharge planning and family touring [facility] 4. Continue to reposition q 2 hours and monitor skin carefully 5. Continue LE footdrop boots/splints 6. Will follow while hospitalized and at discharge as appropriate Thank you for this consult.
--- NOTE | 2018-02-07 14:25 | P.PNCC ---
Subjective Subjective Remarks/Hospital Course: This 82-year-old gentleman was transferred emergently from the floor to the surgical intensive care unit because of rapid onset combined hypoxemic and hypercapnic respiratory failure. On arrival he has diffuse crackles throughout both lung santizo and his neck veins are distended. On admission several days ago he was dehydrated and had an element of acute kidney injury. His weight is up about 5 kg since admission though his renal function has improved. On arrival he is breathing 40 times a minute on a nonrebreathing mask with pH of 7.18 and P CO2 of 74. His acidosis is purely respiratory and associated with bronchospasm from fluid overload. B natruretic peptide is elevated to greater than 2000. Other pertinent major problems include septic joint drainage and treatment. 01/22: Critical care reconsulted for worsening resp status. On BIPAP with fulkl face mask. CXR with bilat infiltrates/ pulm edema. Reaccumulated rt shoulder collection. After d/w family proceeded with intubation and placed patient on [facility] ventilation. Placed central line. D/W Dr. Mani Sherman who is arranging US guided drainage/ drain placement for shoulder collection. 01/23: Remains sedated, orally intubated on mechanical ventilation. Significant diuresis with 11 L negative over the last 3 days. Awaiting left shoulder percutaneous drainage of collection by interventional radiology today. 1 unit PRBCs ordered as patient has borderline blood pressures with hemoglobin less than 8. 01/24: Sedated, arousable, orally intubated on mechanical ventilation. Tolerating tube feeds. s/p [id number] drain placement in rt shoulder fluid collection on 01/23. 01/25: He had a good trial on spontaneous breathing yesterday. Mechanical ventilation overnight. Started on spontaneous breathing trial this morning at 12/5 and volumes were small. Increased to 15/8 and volumes looked better with each breath. Still producing lots of thick secretions, dark yellow. Unable to extubate due to general weakness and inability to cough numerous secretions. FiO2 reduced to 40% and gas exchange good. Clearly improved respiratory function from yesterday. Tolerating tube feeds well, gastric residuals minimal , remains constipated and will start on milk of magnesia and. 01/26: Right lower lobe nicely reexpanded after 24 hours on APRV. FI02 reduced to 30%. More alert today, will attempt to extubate. Worsening azotemia appears to be prerenal. We will need to give some volume back. General strength and alertness has improved. 01/27: On BiPAP since last evening. Appears comfortable with 100% O2 sat. Awake and alert. On tube feeds via NG tube 01/28: Resting comfortably, On BIPAP overnight. Tolerating facemask during day prn. Tolerating tube feeds. Hgb 7.1 today, 1 unit PRBCs ordered. 01/29: Was on nasal cannula all day. Last night developed worsening respiratory status and tachypnea for which he was placed on BiPAP. Remains on BiPAP this morning and appears comfortable. Chest x-ray this morning shows haziness over right lung field with probable pulmonary edema versus infiltrate. 01/30: Surgery yesterday for bilateral shoulder collections under general anesthesia, tolerated procedure well was subsequently transferred back to the ICU and kept orally intubated on mechanical ventilation overnight. CT chest done yesterday revealed bilateral pleural effusions right greater than left for which CT-guided thoracentesis with pigtail catheter placement being scheduled with IR. 01/31: Remains sedated, orally intubated on mechanical ventilation. Underwent right-sided pigtail catheter placement by IR yesterday with drainage of about 800 cc of pleural fluid. Tolerating tube feeds. Planning CPAP trials today. Evaluated by Dr. Macias from pulmonary yesterday 02/01: Remains sedated, orally intubated on mechanical ventilation. On Levophed 1.5 mics per minute. Blood pressure labile, currently 140s. Significant oral secretions however ET tube with minimal secretions overnight. Tolerating tube feeds. New left IJ central line placed on 01/31 and right IJ central line removed. 02/02: Remains intubated more awake currently on 2 mics of Levophed to maintain map above 65. Patient is able to follow commands even though weak. Urine output of approximately 1200 mL in 24 hours, chest tube output 50 mL. Family is at the bedside 02/03: No acute events reported overnight. Patient remains very lethargic and weak. Tolerated CPAP intermittently yesterday. Remains on IV Lasix to mobilize fluid. Urine output 1.5 L in 24 hours. Creatinine slightly increased to 2.16, however patient is grossly fluid positive. Will continue with diuresis. Son at the bedside updated today. Because of generalized weakness it is recommended patient get a tracheostomy for safe ventilator weaning and to facilitate aggressive physical therapy 02/04: Remains off sedation today. Slightly more awake weakly follows commands x4. He does respond to track more today. Remains quite weak though. Urine output improved with Lasix drip. 2.5 L output in 24 hours, however creatinine increased to 2.26. Nephrology following 02/05: On spontaneous breathing trial this morning with pressure support of 12 spontaneous tidal volumes are around 290 and he attempts to low rate results and tachypnea greater than 35/min and tidal volume less than 200. He has been extubated unsuccessfully several times and continues to fatigue during attempts to reduce pressure support. He remains alert and cooperative and well likely be weaned from mechanical ventilation eventually but at this point he really needs a tracheostomy so we can accomplish better mobilization and more realistic intermittent ventilatory support during his final stages of weaning. Family has agreed to go to [facility] for long-term ventilator weaning. 02/06: Nuisance bleeding from fresh tracheostomy skin edge required single suture this morning. Coagulation studies are normal and platelets are normal. No evidence of any coagulation problems observed, patient made clot quite readily. Renal function remains about the same. Plan for PEG tube insertion and subsequent transfer to [facility]. 02/07: Trach site is clean and dry. We will restart DVT prophylaxis heparin dose. KUB abdomen benign. Biliary study does not suggest need for intervention. Some abdominal splinting related to anterior wall pain. Objective Vital Signs / I&O: Vital Signs 02/06/18 14:30 02/06/18 14:45 02/06/18 15:00 Temperature Pulse Rate 113 H 108 H 107 H Respiratory Rate 16 14 14 Blood Pressure 143/68 H 136/69 148/66 H Pulse Oximetry 89 L 95 95 02/06/18 15:15 02/06/18 15:30 02/06/18 15:45 Temperature Pulse Rate 116 H 116 H 110 H Respiratory Rate 14 17 14 Blood Pressure 154/72 H 153/74 H 139/70 Pulse Oximetry 95 95 95 02/06/18 16:00 02/06/18 16:15 02/06/18 16:28 Temperature 99 F Pulse Rate 115 H 110 H Respiratory Rate 15 14 14 Blood Pressure 155/72 H 158/70 H Pulse Oximetry 95 94 L 95 02/06/18 16:30 02/06/18 16:45 02/06/18 17:00 Temperature Pulse Rate 109 H 109 H 109 H Respiratory Rate 14 15 15 Blood Pressure 145/60 H 157/69 H 157/69 H Pulse Oximetry 95 95 96 02/06/18 19:00 02/06/18 20:00 02/06/18 20:12 Temperature 99.5 F Pulse Rate 96 H 100 H Respiratory Rate 14 15 15 Blood Pressure 140/64 151/59 H Pulse Oximetry 94 L 95 96 02/06/18 21:00 02/06/18 22:00 02/06/18 23:00 Temperature Pulse Rate 98 H 96 H 95 H Respiratory Rate 14 14 14 Blood Pressure 134/64 135/63 113/66 Pulse Oximetry 96 95 95 02/06/18 23:40 02/07/18 00:00 02/07/18 00:15 Temperature 100.3 F H Pulse Rate 83 82 Respiratory Rate 15 14 14 Blood Pressure 125/58 L 125/53 L Pulse Oximetry 97 97 97 02/07/18 00:30 02/07/18 00:45 02/07/18 01:00 Temperature Pulse Rate 83 88 88 Respiratory Rate 14 14 15 Blood Pressure 124/56 L 122/57 L 124/57 L Pulse Oximetry 97 96 97 02/07/18 01:15 02/07/18 01:30 02/07/18 01:45 Temperature Pulse Rate 90 83 85 Respiratory Rate 15 14 14 Blood Pressure 150/64 H 149/65 H 136/67 Pulse Oximetry 96 96 96 02/07/18 02:00 02/07/18 02:15 02/07/18 02:30 Temperature Pulse Rate 88 90 89 Respiratory Rate 15 14 14 Blood Pressure 133/70 122/67 133/62 Pulse Oximetry 97 97 96 02/07/18 02:45 02/07/18 03:00 02/07/18 03:15 Temperature Pulse Rate 92 H 87 90 Respiratory Rate 15 15 14 Blood Pressure 140/63 146/63 H 152/65 H Pulse Oximetry 96 96 96 02/07/18 03:30 02/07/18 03:45 02/07/18 03:47 Temperature Pulse Rate 94 H 84 Respiratory Rate 17 14 14 Blood Pressure 152/65 H 130/57 L Pulse Oximetry 96 96 96 02/07/18 04:00 02/07/18 04:15 02/07/18 04:30 Temperature 99.2 F Pulse Rate 86 86 87 Respiratory Rate 16 15 16 Blood Pressure 133/62 135/62 135/60 Pulse Oximetry 95 96 96 02/07/18 04:45 02/07/18 05:00 02/07/18 05:15 Temperature 99.2 F Pulse Rate 90 89 91 H Respiratory Rate 15 16 16 Blood Pressure 144/63 H 137/64 148/68 H Pulse Oximetry 95 95 95 02/07/18 05:30 02/07/18 05:45 02/07/18 06:00 Temperature Pulse Rate 91 H 97 H 87 Respiratory Rate 16 22 15 Blood Pressure 153/67 H 155/70 H 122/58 L Pulse Oximetry 95 96 02/07/18 06:15 02/07/18 06:30 02/07/18 06:45 Temperature Pulse Rate 82 88 83 Respiratory Rate 14 15 15 Blood Pressure 117/58 L 118/55 L 125/60 Pulse Oximetry 96 96 96 02/07/18 07:00 02/07/18 07:15 02/07/18 07:30 Temperature Pulse Rate 83 84 85 Respiratory Rate 16 14 16 Blood Pressure 139/65 139/63 164/77 H Pulse Oximetry 96 96 96 02/07/18 07:45 02/07/18 08:00 02/07/18 08:15 Temperature 99.5 F Pulse Rate 89 94 H 83 Respiratory Rate 16 19 15 Blood Pressure 133/63 162/67 H 158/68 H Pulse Oximetry 96 96 96 02/07/18 08:30 02/07/18 08:45 02/07/18 09:00 Temperature Pulse Rate 87 92 H 85 Respiratory Rate 15 18 14 Blood Pressure 164/72 H 155/58 H 139/63 Pulse Oximetry 96 97 97 02/07/18 09:11 02/07/18 09:15 02/07/18 09:30 Temperature Pulse Rate 85 87 Respiratory Rate 18 28 H 35 H Blood Pressure 143/63 H 151/57 H Pulse Oximetry 97 97 97 02/07/18 09:45 02/07/18 10:00 02/07/18 10:15 Temperature Pulse Rate 91 H 94 H 96 H Respiratory Rate 38 H 34 H 32 H Blood Pressure 157/66 H 165/69 H 173/75 H Pulse Oximetry 97 97 97 02/07/18 10:30 02/07/18 10:45 02/07/18 11:00 Temperature Pulse Rate 90 93 H 93 H Respiratory Rate 15 18 16 Blood Pressure 164/69 H 163/72 H Pulse Oximetry 97 94 L 94 L 02/07/18 12:23 02/07/18 12:32 02/07/18 12:34 Temperature 99.8 F H Pulse Rate 110 H Respiratory Rate 38 H 23 Blood Pressure Pulse Oximetry 96 95 100 02/07/18 13:00 02/07/18 14:00 Temperature Pulse Rate 96 H 96 H Respiratory Rate 14 14 Blood Pressure Pulse Oximetry 97 97 Intake & Output 02/06/18 02/07/18 02/07/18 18:59 06:59 18:59 Intake Total 600 / 600 1515 / 1515 Output Total 750 / 750 675 / 675 Balance -150 / -150 840 / 840 Weight 79.6 kg Intake: IV 500 / 500 500 / 500 Lasix Inj 100 MG In NS Inj 90 100 / 100 ML @ 3 mls/hr IV.CONT .Q24H [facility] Rx#:[id number] Flexbumin 25% Inj 100 ML @ 60 100 / 100 100 / 100 mls/hr IV.SIG Q12H [facility] Rx#: [id number] Azactam Inj 1,000 MG In NS Inj 200 / 200 200 / 200 100 ML @ 200 mls/hr IV.SIG Q6H [facility] Rx#:[id number] Teflaro Inj 300 MG In NS Inj 100 / 100 100 / 100 100 ML @ 100 mls/hr IV.SIG Q12H [facility] Rx#:[id number] Mycamine Inj 150 MG In NS Inj 100 / 100 100 ML @ 100 mls/hr IV.SIG Q24H [facility] Rx#:[id number] Tube Feeding 895 / 895 Tube Irrigant 120 / 120 Anesthesia Amount 100 / 100 Output: Urine Amount (Catheter) 750 / 750 675 / 675 Indwelling Urethral Catheter 750 / 750 675 / 675 Other: Date of Last Bowel Movement 02/06/18 02/07/18 02/06/18 # Bowel Movements 1 Result Diagrams: 02/07/18 06:00 02/07/18 06:00 Objective Remarks: General: Alert, interactive, on mechanical ventilation. Eyes are open, tracks and nods his head. HEENT: There is no icterus, tracheally intubated Neck : Supple aside from some chronic stiffness. Tracheostomy site clean and dry Chest/pulm: Ventilated, air entry decreased bilaterally at bases, minimal scattered rhonchi, no wheezing. Right-sided pigtail catheter in place. CVS: S1S2, irregular rhythm. No JVD. Abd: Soft, nontender, bowel sounds present. No guarding or distention. Ext: Warm bilaterally. Dressing over bilateral shoulder surgical site clean dry and intact. Neuro: Easily arousable, tracking with eyes today. Weakly follows commands x4. Generalized weakness persist. Grossly nonfocal exam. Assessment and Plan - Assessment and Plan Plan: Assessment and Plan: Acute combined hypercapnic and hypoxemic respiratory failure Fluid overload/noncardiogenic Pulmonary edema secondary to sepsis MRSA pneumonia Mucus plugging Critical illness myopathy -Continue bronchodilators -BNP elevated, diuresed to mobilize fluid. Continue Lasix infusion per nephrology -Scott required for BPH as well as diuresis, accurate hourly intake output -Intubated and placed on mech ventilation on 01/22. -Status post bronchoscopy with BAL on 01/22 with significant mucus plugging noted in the right-sided airways including right mainstem bronchus for which BAL was performed with significant clearing of airway. -Status post bronchoscopy 02/02/[address] Morales -right mainstem bronchus with some mucous plugs noted which was suctioned out. -Continue mechanical ventilation, vent bundle. Mucomyst to mobilize secretions. -Frequent suctioning required. Previously extubated 01/25. Required BiPAP on 01/29 and was intubated for bilateral shoulder surgery and remains on mechanical ventilation since 01/29 postoperatively. -CT chest with bilateral effusions. S/p CT-guided right-sided thoracentesis/ pigtail catheter placement with IR on 01/30. -Dr. Jacky Macias for pulmonary per family request. -Daily CPAP trials. Get patient up to stretcher chair while on the vent daily. PT OT daily -Patient has significant generalized weakness, continues to fail prolonged CPAP trials -The patient will benefit from tracheostomy to facilitate ventilator weaning and to facilitate aggressive physical therapy MRSA septicemia, septic right shoulder, L spine diskitis, left supraclavicular abscess Septic right shoulder, s/p I&D Urinary tract infection. 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 Tapering steroid Blood cultures positive for MRSA. 2D echocardiogram did not show any findings consistent with vegetations. Patient also had a right shoulder effusion, orthopedics aspirated the shoulder - approximately 30 cc of purulent fluid. Orthopedics performed surgery/drainage of bilateral shoulder collections on 01/29 Previously IR consulted s/p CT-guided drainage of left posterior supraclavicular /posterior chest wall abscess on 01/17/18. s/p US guided drainage of shoulder collection by IR done on 01/23 Continue IV antibiotics per infectious disease recommendations. NM WBC scan 01/18/18 and 01/19/18. Imaging discussed with radiology and it seems patient with multiple focal infections bilateral shoulders, also back at the hardware with diskitis/osteomyelitis. Neurology, ID, hem onc following KEKE on CKD. Getting diuresed, Strict I/O, monitor/ replete electrolytes, follow BUN/ Cr Nephrology following, appreciate recs. IV Lasix gtt per nephrology Significant fluid removal with diuresis but creatinine increased concomitantly Remains moderately fluid positive CVS Atrial Fibrillation, permanent Noncardiogenic pulmonary edema Hypotension Rate well controlled. Recent ECHO EF 65% Dr. Garner following-discussed with Dr. Garner on 01/22. We agreed with diuresing patient for noncardiogenic pulmonary edema while watching renal function/ BP. Remains on Levophed to maintain map above 65 Holding amlodipine and Lopressor in view of labile blood pressure requiring Levophed. Lasix gtt 2 mg per hour started 02/03 Anemia Will keep hemoglobin above 8 g%. 1 unit PRBC given 02/02/2018 PRBC 2 units given 02/06/18 Protein calorie malnutrition -Inserted NGT 01/22 following intubation, Continue tube feeds and advance to goal as well tolerated. Follow prealbumin. BPH - Continue Flomax. DVT -heparin 5000 subcu every 12 hours Access: RIJ central line placed 01/22 -discontinued on 01/31. New left IJ central line placed 01/31, DC 01/22: D/w Dr. Mani Sherman, D/W [employer], D/W patient's family at bedside. 01/23 D/W patient's daughter at bedside regarding current clinical status and plan of care and they voiced understanding and were agreeable with plan of care. D/W ID-Dr Tom on 01/23 01/24: Discussed with patient's family at bedside regarding current clinical status and plan of care and they voiced understanding. Discussed with ID Dr. Tom, discussed with Dr. Piña. Discussed with [employer]. 01/25: I spoke with patient's daughter at the bedside this morning. We discussed goals for ventilator weaning and nutrition. I spoke with extensive family members later in the day. 01/26: I spoke at length with the patient's daughter this morning and will speak extensively with other family members later today. 01/27: I spoke with patient's family member at bedside regarding his respiratory status and plan of care and he voiced understanding. Will come back and update other family members later. 01/28: I updated family regarding plan of care. 01/29: Update multiple family members regarding clinical status including borderline respiratory status requiring BiPAP. Patient scheduled for surgery which was also discussed. I explained that patient will probably remain on mechanical ventilation postoperatively until improvement in respiratory status. 01/30: Treated patient's family regarding current clinical status including plan of care. Discussed need for thoracentesis and pigtail catheter placement for right effusion and possible need for bronchoscopy/BAL. They voiced understanding and were agreeable with plan of care. Discussed with Dr. Tom , discussed with Dr. Jacky Macias from pulmonary who was consulted as well for further evaluation of respiratory failure. 01/31: Discussed with patient's daughter/multiple family members at bedside regarding current clinical status and plan of care and they voiced understanding and was agreeable. Discussed with ID Dr. Tom 02/01: Discussed with patient son at bedside regarding current clinical status and plan of care and he voiced understanding and was agreeable. 02/02: Updated family members at the bedside 02/03 Updated son at bedside 02/04 updated family at the bedside 02/05: Lengthy discussion with daughter this morning concerning the process of long-term ventilator weaning. They wish to proceed with tracheostomy and PEG placement with [facility]. 02/06: I spoke with his daughter at the bedside today concerning new since trach site bleeding and our ongoing plans to have him [facility] once the PEG is completed. 02/07: Discussed general patient condition today with daughter and . PEG and trach now completed. Anticipate transfer to [facility] Saturday.
[2018-02-07] MEDS: DAPTOmycin Inj 800 MG in Sodium Chlor 0.9% Inj 100 ML IV.SIG SCH (15:12)
--- NOTE | 2018-02-07 18:01 | P.PNGI ---
Subjective Interval history: Intubated and mechanically ventilated Physical Exam Vital signs: Vital Signs 02/06/18 19:00 02/06/18 20:00 02/06/18 20:12 Temperature 99.5 F Pulse Rate 96 H 100 H Respiratory Rate 14 15 15 Blood Pressure 140/64 151/59 H Pulse Oximetry 94 L 95 96 02/06/18 21:00 02/06/18 22:00 02/06/18 23:00 Temperature Pulse Rate 98 H 96 H 95 H Respiratory Rate 14 14 14 Blood Pressure 134/64 135/63 113/66 Pulse Oximetry 96 95 95 02/06/18 23:40 02/07/18 00:00 02/07/18 00:15 Temperature 100.3 F H Pulse Rate 83 82 Respiratory Rate 15 14 14 Blood Pressure 125/58 L 125/53 L Pulse Oximetry 97 97 97 02/07/18 00:30 02/07/18 00:45 02/07/18 01:00 Temperature Pulse Rate 83 88 88 Respiratory Rate 14 14 15 Blood Pressure 124/56 L 122/57 L 124/57 L Pulse Oximetry 97 96 97 02/07/18 01:15 02/07/18 01:30 02/07/18 01:45 Temperature Pulse Rate 90 83 85 Respiratory Rate 15 14 14 Blood Pressure 150/64 H 149/65 H 136/67 Pulse Oximetry 96 96 96 02/07/18 02:00 02/07/18 02:15 02/07/18 02:30 Temperature Pulse Rate 88 90 89 Respiratory Rate 15 14 14 Blood Pressure 133/70 122/67 133/62 Pulse Oximetry 97 97 96 02/07/18 02:45 02/07/18 03:00 02/07/18 03:15 Temperature Pulse Rate 92 H 87 90 Respiratory Rate 15 15 14 Blood Pressure 140/63 146/63 H 152/65 H Pulse Oximetry 96 96 96 02/07/18 03:30 02/07/18 03:45 02/07/18 03:47 Temperature Pulse Rate 94 H 84 Respiratory Rate 17 14 14 Blood Pressure 152/65 H 130/57 L Pulse Oximetry 96 96 96 02/07/18 04:00 02/07/18 04:15 02/07/18 04:30 Temperature 99.2 F Pulse Rate 86 86 87 Respiratory Rate 16 15 16 Blood Pressure 133/62 135/62 135/60 Pulse Oximetry 95 96 96 02/07/18 04:45 02/07/18 05:00 02/07/18 05:15 Temperature 99.2 F Pulse Rate 90 89 91 H Respiratory Rate 15 16 16 Blood Pressure 144/63 H 137/64 148/68 H Pulse Oximetry 95 95 95 02/07/18 05:30 02/07/18 05:45 02/07/18 06:00 Temperature Pulse Rate 91 H 97 H 87 Respiratory Rate 16 22 15 Blood Pressure 153/67 H 155/70 H 122/58 L Pulse Oximetry 95 96 02/07/18 06:15 02/07/18 06:30 02/07/18 06:45 Temperature Pulse Rate 82 88 83 Respiratory Rate 14 15 15 Blood Pressure 117/58 L 118/55 L 125/60 Pulse Oximetry 96 96 96 02/07/18 07:00 02/07/18 07:15 02/07/18 07:30 Temperature Pulse Rate 83 84 85 Respiratory Rate 16 14 16 Blood Pressure 139/65 139/63 164/77 H Pulse Oximetry 96 96 96 02/07/18 07:45 02/07/18 08:00 02/07/18 08:15 Temperature 99.5 F Pulse Rate 89 94 H 83 Respiratory Rate 16 19 15 Blood Pressure 133/63 162/67 H 158/68 H Pulse Oximetry 96 96 96 02/07/18 08:30 02/07/18 08:45 02/07/18 09:00 Temperature Pulse Rate 87 92 H 85 Respiratory Rate 15 18 14 Blood Pressure 164/72 H 155/58 H 139/63 Pulse Oximetry 96 97 97 02/07/18 09:11 02/07/18 09:15 02/07/18 09:30 Temperature Pulse Rate 85 87 Respiratory Rate 18 28 H 35 H Blood Pressure 143/63 H 151/57 H Pulse Oximetry 97 97 97 02/07/18 09:45 02/07/18 10:00 02/07/18 10:15 Temperature Pulse Rate 91 H 94 H 96 H Respiratory Rate 38 H 34 H 32 H Blood Pressure 157/66 H 165/69 H 173/75 H Pulse Oximetry 97 97 97 02/07/18 10:30 02/07/18 10:45 02/07/18 11:00 Temperature Pulse Rate 90 93 H 93 H Respiratory Rate 15 18 16 Blood Pressure 164/69 H 163/72 H Pulse Oximetry 97 94 L 94 L 02/07/18 12:23 02/07/18 12:32 02/07/18 12:34 Temperature 99.8 F H Pulse Rate 110 H Respiratory Rate 38 H 23 Blood Pressure Pulse Oximetry 96 95 100 02/07/18 13:00 02/07/18 14:00 02/07/18 15:00 Temperature Pulse Rate 96 H 96 H 90 Respiratory Rate 14 14 14 Blood Pressure Pulse Oximetry 97 97 96 02/07/18 16:00 02/07/18 16:16 Temperature 99.8 F H Pulse Rate 91 H Respiratory Rate 16 14 Blood Pressure Pulse Oximetry 96 97 Intake & Output 02/06/18 02/07/18 02/07/18 18:59 06:59 18:59 Intake Total 600 / 600 1515 / 1515 1210 / 1210 Output Total 750 / 750 675 / 675 950 / 950 Balance -150 / -150 840 / 840 260 / 260 Weight 79.6 kg Intake: IV 500 / 500 500 / 500 600 / 600 Lasix Inj 100 MG In NS Inj 90 100 / 100 ML @ 3 mls/hr IV.CONT .Q24H [facility] Rx#:[id number] Flexbumin 25% Inj 100 ML @ 60 100 / 100 100 / 100 100 / 100 mls/hr IV.SIG Q12H [facility] Rx#: [id number] Azactam Inj 1,000 MG In NS Inj 200 / 200 200 / 200 200 / 200 100 ML @ 200 mls/hr IV.SIG Q6H [facility] Rx#:[id number] Teflaro Inj 300 MG In NS Inj 100 / 100 100 / 100 100 / 100 100 ML @ 100 mls/hr IV.SIG Q12H [facility] Rx#:[id number] Cubicin Inj 800 MG In NS Inj 100 / 100 100 ML @ 200 mls/hr IV.SIG Q48H [facility] Rx#:[id number] Mycamine Inj 150 MG In NS Inj 100 / 100 100 ML @ 100 mls/hr IV.SIG Q24H [facility] Rx#:[id number] Flagyl 500 MG Inj 100 ML @ 100 100 / 100 mls/hr IV.SIG Q6H [facility] Rx#: [id number] Tube Feeding 895 / 895 450 / 450 Tube Irrigant 120 / 120 160 / 160 Anesthesia Amount 100 / 100 Output: Urine Amount (Catheter) 750 / 750 675 / 675 950 / 950 Indwelling Urethral Catheter 750 / 750 675 / 675 950 / 950 Other: Date of Last Bowel Movement 02/06/18 02/07/18 02/06/18 # Bowel Movements 1 # Incontinent Bowel Movements 1 - Constitutional no acute distress, chronically ill appearing - Routine HEENT Exam Head: Present: normocephalic - Routine Respiratory Exam Present: patient mechanically ventilated - Routine Cardiovascular Exam Present: RRR - Routine Abdominal Exam Present: soft, normoactive bowel sounds, distended, ostomy. Absent: tenderness , firm Comments: Gastrostomy tube intact Tube feedings dosage decreased by one half - Routine Skin Exam Present: dry, warm - Routine Neurological Exam Present: alert - Urinary Catheter Management Condom Cath placed during this visit: no Indwelling Urethral Catheter Cath placed during this visit: yes Reason for continuing: Hourly intake/output Insertion date: 01/20/18 Insertion time: 11:30 Results - Labs CBC & Chem 7: 02/07/18 06:00 02/07/18 06:00 Laboratory Results - last 24 hr 02/07/18 02/07/18 06:00 06:00 WBC 7.4 RBC 2.87 L Hgb 8.0 L Hct 24.0 L MCV 83.8 MCH 28.1 MCHC 33.5 RDW 18.8 H Plt Count 268 MPV 9.5 Prelim Diff (Auto) Slide review pending Neut % (Auto) 81.2 H Lymph % (Auto) 10.5 [place] % (Auto) 4.2 Eos % (Auto) 3.8 Baso % (Auto) 0.3 Neut # (Auto) 6.0 Lymph # (Auto) 0.8 L [place] # (Auto) 0.3 Eos # (Auto) 0.3 Baso # (Auto) 0.0 WBC Differential Manual diff final Seg Neuts % (Manual) 70 Band Neuts % (Manual) 13 H Lymphocytes % (Manual) 9 Monocytes % (Manual) 1 Eosinophils % (Manual) 5 H Myelocytes % (Man) 1 H Promyelocytes % (Man) 1 H Abs Neuts (Manual) 6.3 Differential Comment . Platelet Estimate Normal Platelet Morphology Normal Spherocytes Occ H Ovalocytes 1+ H Keratocytes Occ H Sodium 140 Potassium 3.5 Chloride 106 Carbon Dioxide 23.2 Anion Gap 11 BUN 72 H Creatinine 2.27 H Estimated GFR 28 L Random Glucose 146 H Calcium 8.5 Microbiology 01/17/18 18:56 Fluid - Other Acid Fast Bacilli Smear - Final No acid fast bacilli seen 01/17/18 18:56 Fluid - Other Mycobacterial Culture - Preliminary No growth in 3 weeks 02/03/18 12:50 Blood - Peripheral Aerobic Blood Culture - Preliminary No growth in 4 days 02/03/18 12:50 Blood - Peripheral Anaerobic Blood Culture - Preliminary No growth in 4 days 02/03/18 12:56 Blood - Peripheral Aerobic Blood Culture - Preliminary No growth in 4 days 02/03/18 12:56 Blood - Peripheral Anaerobic Blood Culture - Preliminary No growth in 4 days 01/30/18 15:00 Fluid - Pleural fluid Fungal Smear - Final No fungal elements seen 01/30/18 15:00 Fluid - Pleural fluid Fungal Culture - Preliminary No growth in 1 week - Imaging Impressions Cholangiopancreatography MRI 02/07/18 00:00 CONCLUSION: 1. Comment bile duct is not well visualized on the study and appears small in size and is not enlarged. 2. 2 apparent tiny gallstones layering dependently in the gallbladder with no wall thickening or inflammatory change. 3. Multiple benign cystic structures in the right kidney. 4. Small bilateral pleural effusions. Abdomen X-Ray 02/07/18 11:07 CONCLUSION: Minimal gaseous distention suggesting ileus. - Procedures Right shoulder consent for aspiration obtained. Time out performed. Right shoulder prepped sterilely with alcohol and betadine. Sterile gloves doned. Right shoulder aspirated and sent for gram stain, culture, crystals, and cell count. 30 cc of purulent drainage aspirated and sent to lab. sterile dressing applied. Patient tolerated procedure well. Assessment and Plan - Plan This patient is an 82-year-old male with past medical history significant for atrial fibrillation, BPH, depression, hypertension, hypothyroidism and peptic ulcer disease. Patient also has history of GERD for which he takes pantoprazole 20 mg daily. Patient was brought to the emergency room at [facility] for evaluation of altered mental status. Previously, patient has recently returned from [place] where he was treated for 3 urinary tract infections over the last month and a half. Patient developed increasing confusion and weakness with inability to ambulate after receiving a flu shot while he was in [place]. Patient is currently intubated and mechanically ventilated, our service has been consulted for PEG tube placement. PEG tube placement Our service has been consulted to evaluate patient for PEG tube placement. Patient is currently intubated and mechanically ventilated. Presented to the emergency room for evaluation of altered mental status and generalized weakness. Patient treated for sepsis. Patient currently receiving aztreonam, ceftaroline, daptomycin and micafungin. WBC 7.5 hemoglobin 7.5 hematocrit 22.0 INR 1.2 total bilirubin 1.9 AST 18 ALT 18 alk phos 466 02/07/2018 Abdominal distention/post PEG tube placement Hepatic X territory dysfunction related to sepsis Micro abscesses-MRSA 02/07/2018 MRCP-- 1. Comment bile duct is not well visualized on the study and appears small in size and is not enlarged. 2. 2 apparent tiny gallstones layering dependently in the gallbladder with no wall thickening or inflammatory change. 3. Multiple benign cystic structures in the right kidney. 4. Small bilateral pleural effusions. 02/07/2018 abdominal KUB--Minimal gaseous distention suggesting ileus. WBC 7.4 hemoglobin 8.0 hematocrit 24.0 platelet count 268 Plan PEG tube feedings as tolerated/as per dietary recommendation Continue to monitor labs At this time patient not a candidate for liver biopsy Further recommendations to follow Supportive care This patient has been seen by myself and Dr. Lawrence and this note is written on his behalf - Attending Attestation Dr. Lawrence
--- NOTE | 2018-02-07 18:06 | P.PNNP ---
Subjective Interval history: Patient is on ventilator status post trach and PEG going to be transferred to [facility] next week Physical Exam Vital signs: Vital Signs 02/06/18 19:00 02/06/18 20:00 02/06/18 20:12 Temperature 99.5 F Pulse Rate 96 H 100 H Respiratory Rate 14 15 15 Blood Pressure 140/64 151/59 H Pulse Oximetry 94 L 95 96 02/06/18 21:00 02/06/18 22:00 02/06/18 23:00 Temperature Pulse Rate 98 H 96 H 95 H Respiratory Rate 14 14 14 Blood Pressure 134/64 135/63 113/66 Pulse Oximetry 96 95 95 02/06/18 23:40 02/07/18 00:00 02/07/18 00:15 Temperature 100.3 F H Pulse Rate 83 82 Respiratory Rate 15 14 14 Blood Pressure 125/58 L 125/53 L Pulse Oximetry 97 97 97 02/07/18 00:30 02/07/18 00:45 02/07/18 01:00 Temperature Pulse Rate 83 88 88 Respiratory Rate 14 14 15 Blood Pressure 124/56 L 122/57 L 124/57 L Pulse Oximetry 97 96 97 02/07/18 01:15 02/07/18 01:30 02/07/18 01:45 Temperature Pulse Rate 90 83 85 Respiratory Rate 15 14 14 Blood Pressure 150/64 H 149/65 H 136/67 Pulse Oximetry 96 96 96 02/07/18 02:00 02/07/18 02:15 02/07/18 02:30 Temperature Pulse Rate 88 90 89 Respiratory Rate 15 14 14 Blood Pressure 133/70 122/67 133/62 Pulse Oximetry 97 97 96 02/07/18 02:45 02/07/18 03:00 02/07/18 03:15 Temperature Pulse Rate 92 H 87 90 Respiratory Rate 15 15 14 Blood Pressure 140/63 146/63 H 152/65 H Pulse Oximetry 96 96 96 02/07/18 03:30 02/07/18 03:45 02/07/18 03:47 Temperature Pulse Rate 94 H 84 Respiratory Rate 17 14 14 Blood Pressure 152/65 H 130/57 L Pulse Oximetry 96 96 96 02/07/18 04:00 02/07/18 04:15 02/07/18 04:30 Temperature 99.2 F Pulse Rate 86 86 87 Respiratory Rate 16 15 16 Blood Pressure 133/62 135/62 135/60 Pulse Oximetry 95 96 96 02/07/18 04:45 02/07/18 05:00 02/07/18 05:15 Temperature 99.2 F Pulse Rate 90 89 91 H Respiratory Rate 15 16 16 Blood Pressure 144/63 H 137/64 148/68 H Pulse Oximetry 95 95 95 02/07/18 05:30 02/07/18 05:45 02/07/18 06:00 Temperature Pulse Rate 91 H 97 H 87 Respiratory Rate 16 22 15 Blood Pressure 153/67 H 155/70 H 122/58 L Pulse Oximetry 95 96 02/07/18 06:15 02/07/18 06:30 02/07/18 06:45 Temperature Pulse Rate 82 88 83 Respiratory Rate 14 15 15 Blood Pressure 117/58 L 118/55 L 125/60 Pulse Oximetry 96 96 96 02/07/18 07:00 02/07/18 07:15 02/07/18 07:30 Temperature Pulse Rate 83 84 85 Respiratory Rate 16 14 16 Blood Pressure 139/65 139/63 164/77 H Pulse Oximetry 96 96 96 02/07/18 07:45 02/07/18 08:00 02/07/18 08:15 Temperature 99.5 F Pulse Rate 89 94 H 83 Respiratory Rate 16 19 15 Blood Pressure 133/63 162/67 H 158/68 H Pulse Oximetry 96 96 96 02/07/18 08:30 02/07/18 08:45 02/07/18 09:00 Temperature Pulse Rate 87 92 H 85 Respiratory Rate 15 18 14 Blood Pressure 164/72 H 155/58 H 139/63 Pulse Oximetry 96 97 97 02/07/18 09:11 02/07/18 09:15 02/07/18 09:30 Temperature Pulse Rate 85 87 Respiratory Rate 18 28 H 35 H Blood Pressure 143/63 H 151/57 H Pulse Oximetry 97 97 97 02/07/18 09:45 02/07/18 10:00 02/07/18 10:15 Temperature Pulse Rate 91 H 94 H 96 H Respiratory Rate 38 H 34 H 32 H Blood Pressure 157/66 H 165/69 H 173/75 H Pulse Oximetry 97 97 97 02/07/18 10:30 02/07/18 10:45 02/07/18 11:00 Temperature Pulse Rate 90 93 H 93 H Respiratory Rate 15 18 16 Blood Pressure 164/69 H 163/72 H Pulse Oximetry 97 94 L 94 L 02/07/18 12:23 02/07/18 12:32 02/07/18 12:34 Temperature 99.8 F H Pulse Rate 110 H Respiratory Rate 38 H 23 Blood Pressure Pulse Oximetry 96 95 100 02/07/18 13:00 02/07/18 14:00 02/07/18 15:00 Temperature Pulse Rate 96 H 96 H 90 Respiratory Rate 14 14 14 Blood Pressure Pulse Oximetry 97 97 96 02/07/18 16:00 02/07/18 16:16 Temperature 99.8 F H Pulse Rate 91 H Respiratory Rate 16 14 Blood Pressure Pulse Oximetry 96 97 Intake & Output 02/06/18 02/07/18 02/07/18 18:59 06:59 18:59 Intake Total 600 / 600 1515 / 1515 1210 / 1210 Output Total 750 / 750 675 / 675 950 / 950 Balance -150 / -150 840 / 840 260 / 260 Weight 79.6 kg Intake: IV 500 / 500 500 / 500 600 / 600 Lasix Inj 100 MG In NS Inj 90 100 / 100 ML @ 3 mls/hr IV.CONT .Q24H [facility] Rx#:[id number] Flexbumin 25% Inj 100 ML @ 60 100 / 100 100 / 100 100 / 100 mls/hr IV.SIG Q12H [facility] Rx#: [id number] Azactam Inj 1,000 MG In NS Inj 200 / 200 200 / 200 200 / 200 100 ML @ 200 mls/hr IV.SIG Q6H [facility] Rx#:[id number] Teflaro Inj 300 MG In NS Inj 100 / 100 100 / 100 100 / 100 100 ML @ 100 mls/hr IV.SIG Q12H [facility] Rx#:[id number] Cubicin Inj 800 MG In NS Inj 100 / 100 100 ML @ 200 mls/hr IV.SIG Q48H [facility] Rx#:[id number] Mycamine Inj 150 MG In NS Inj 100 / 100 100 ML @ 100 mls/hr IV.SIG Q24H [facility] Rx#:[id number] Flagyl 500 MG Inj 100 ML @ 100 100 / 100 mls/hr IV.SIG Q6H [facility] Rx#: [id number] Tube Feeding 895 / 895 450 / 450 Tube Irrigant 120 / 120 160 / 160 Anesthesia Amount 100 / 100 Output: Urine Amount (Catheter) 750 / 750 675 / 675 950 / 950 Indwelling Urethral Catheter 750 / 750 675 / 675 950 / 950 Other: Date of Last Bowel Movement 02/06/18 02/07/18 02/06/18 # Bowel Movements 1 # Incontinent Bowel Movements 1 Narrative: GENERAL: Well-nourished, well-developed patient. Status post tracheostomy SKIN: Warm and dry. HEAD: Normocephalic. EYES: No scleral icterus. No injection or drainage. NECK: Supple, trachea midline. No JVD or lymphadenopathy. CARDIOVASCULAR: Regular rate and rhythm without murmurs, gallops, or rubs. RESPIRATORY: Breath sounds equal bilaterally. No accessory muscle use. GASTROINTESTINAL: Abdomen soft, non-tender, nondistended. Status post PEG EXTREMITIES: Edema decline NEUROLOGICAL: Awake, alert, responsive - Urinary Catheter Management Condom Cath placed during this visit: no Indwelling Urethral Catheter Cath placed during this visit: yes Reason for continuing: Hourly intake/output Insertion date: 01/20/18 Insertion time: 11:30 Assessment and Plan - Assessment (1) Acute renal failure Code(s): N17.9 - Acute kidney failure, unspecified Status: Acute (2) Atrial fibrillation Code(s): I48.91 - Unspecified atrial fibrillation Status: Acute Qualifiers: Atrial fibrillation type: unspecified Qualified Code(s): I48.91 - Unspecified atrial fibrillation (3) Sepsis Code(s): A41.9 - Sepsis, unspecified organism Status: Acute Qualifiers: Sepsis type: methicillin resistant Staphylococcus aureus Qualified Code(s) : A41.02 - Sepsis due to Methicillin resistant Staphylococcus aureus - Plan Patient is doing better Patient creatinine is 2. 2.2 Cultures followed, fever improved Good urine output 1.4 L, creatinine remains stable on Lasix 40 mg IV daily Patient status post tracheostomy Edema is improved On potassium replacement
--- NOTE | 2018-02-07 19:14 | P.PNID ---
Subjective Remarks: On vent, sp trach sp PEG all clx no growth + low grade fever BP is low, on low dose of levaphed US results abnorma,l, dw GI MRCP was recommended by Dr Sepulveda and it was unremarkable Antibiotics: v teflaro daptomycin azactam micafungin flagyl Lines: Line sites with no e.o infection Past Medical History: reviewed Allergies/Adverse Reactions: Allergies amoxicillin Allergy (Severe, Verified 01/13/18 20:44) Hives Objective Vital Signs 02/06/18 19:00 02/06/18 20:00 02/06/18 20:12 Temperature 99.5 F Pulse Rate 96 H 100 H Respiratory Rate 14 15 15 Blood Pressure 140/64 151/59 H Pulse Oximetry 94 L 95 96 02/06/18 21:00 02/06/18 22:00 02/06/18 23:00 Temperature Pulse Rate 98 H 96 H 95 H Respiratory Rate 14 14 14 Blood Pressure 134/64 135/63 113/66 Pulse Oximetry 96 95 95 02/06/18 23:40 02/07/18 00:00 02/07/18 00:15 Temperature 100.3 F H Pulse Rate 83 82 Respiratory Rate 15 14 14 Blood Pressure 125/58 L 125/53 L Pulse Oximetry 97 97 97 02/07/18 00:30 02/07/18 00:45 02/07/18 01:00 Temperature Pulse Rate 83 88 88 Respiratory Rate 14 14 15 Blood Pressure 124/56 L 122/57 L 124/57 L Pulse Oximetry 97 96 97 02/07/18 01:15 02/07/18 01:30 02/07/18 01:45 Temperature Pulse Rate 90 83 85 Respiratory Rate 15 14 14 Blood Pressure 150/64 H 149/65 H 136/67 Pulse Oximetry 96 96 96 02/07/18 02:00 02/07/18 02:15 02/07/18 02:30 Temperature Pulse Rate 88 90 89 Respiratory Rate 15 14 14 Blood Pressure 133/70 122/67 133/62 Pulse Oximetry 97 97 96 02/07/18 02:45 02/07/18 03:00 02/07/18 03:15 Temperature Pulse Rate 92 H 87 90 Respiratory Rate 15 15 14 Blood Pressure 140/63 146/63 H 152/65 H Pulse Oximetry 96 96 96 02/07/18 03:30 02/07/18 03:45 02/07/18 03:47 Temperature Pulse Rate 94 H 84 Respiratory Rate 17 14 14 Blood Pressure 152/65 H 130/57 L Pulse Oximetry 96 96 96 02/07/18 04:00 02/07/18 04:15 02/07/18 04:30 Temperature 99.2 F Pulse Rate 86 86 87 Respiratory Rate 16 15 16 Blood Pressure 133/62 135/62 135/60 Pulse Oximetry 95 96 96 02/07/18 04:45 02/07/18 05:00 02/07/18 05:15 Temperature 99.2 F Pulse Rate 90 89 91 H Respiratory Rate 15 16 16 Blood Pressure 144/63 H 137/64 148/68 H Pulse Oximetry 95 95 95 02/07/18 05:30 02/07/18 05:45 02/07/18 06:00 Temperature Pulse Rate 91 H 97 H 87 Respiratory Rate 16 22 15 Blood Pressure 153/67 H 155/70 H 122/58 L Pulse Oximetry 95 96 02/07/18 06:15 02/07/18 06:30 02/07/18 06:45 Temperature Pulse Rate 82 88 83 Respiratory Rate 14 15 15 Blood Pressure 117/58 L 118/55 L 125/60 Pulse Oximetry 96 96 96 02/07/18 07:00 02/07/18 07:15 02/07/18 07:30 Temperature Pulse Rate 83 84 85 Respiratory Rate 16 14 16 Blood Pressure 139/65 139/63 164/77 H Pulse Oximetry 96 96 96 02/07/18 07:45 02/07/18 08:00 02/07/18 08:15 Temperature 99.5 F Pulse Rate 89 94 H 83 Respiratory Rate 16 19 15 Blood Pressure 133/63 162/67 H 158/68 H Pulse Oximetry 96 96 96 02/07/18 08:30 02/07/18 08:45 02/07/18 09:00 Temperature Pulse Rate 87 92 H 85 Respiratory Rate 15 18 14 Blood Pressure 164/72 H 155/58 H 139/63 Pulse Oximetry 96 97 97 02/07/18 09:11 02/07/18 09:15 02/07/18 09:30 Temperature Pulse Rate 85 87 Respiratory Rate 18 28 H 35 H Blood Pressure 143/63 H 151/57 H Pulse Oximetry 97 97 97 02/07/18 09:45 02/07/18 10:00 02/07/18 10:15 Temperature Pulse Rate 91 H 94 H 96 H Respiratory Rate 38 H 34 H 32 H Blood Pressure 157/66 H 165/69 H 173/75 H Pulse Oximetry 97 97 97 02/07/18 10:30 02/07/18 10:45 02/07/18 11:00 Temperature Pulse Rate 90 93 H 93 H Respiratory Rate 15 18 16 Blood Pressure 164/69 H 163/72 H Pulse Oximetry 97 94 L 94 L 02/07/18 12:23 02/07/18 12:32 02/07/18 12:34 Temperature 99.8 F H Pulse Rate 110 H Respiratory Rate 38 H 23 Blood Pressure Pulse Oximetry 96 95 100 02/07/18 13:00 02/07/18 14:00 02/07/18 15:00 Temperature Pulse Rate 96 H 96 H 90 Respiratory Rate 14 14 14 Blood Pressure Pulse Oximetry 97 97 96 02/07/18 16:00 02/07/18 16:16 02/07/18 17:00 Temperature 99.8 F H Pulse Rate 91 H 90 Respiratory Rate 16 14 15 Blood Pressure Pulse Oximetry 96 97 96 02/07/18 18:00 Temperature Pulse Rate 83 Respiratory Rate 15 Blood Pressure Pulse Oximetry 96 Intake & Output 02/06/18 02/07/18 02/07/18 18:59 06:59 18:59 Intake Total 600 / 600 1515 / 1515 1310 / 1310 Output Total 750 / 750 675 / 675 950 / 950 Balance -150 / -150 840 / 840 360 / 360 Weight 79.6 kg Intake: IV 500 / 500 500 / 500 700 / 700 Lasix Inj 100 MG In NS Inj 90 100 / 100 ML @ 3 mls/hr IV.CONT .Q24H [facility] Rx#:[id number] Flexbumin 25% Inj 100 ML @ 60 100 / 100 100 / 100 100 / 100 mls/hr IV.SIG Q12H [facility] Rx#: [id number] Azactam Inj 1,000 MG In NS Inj 200 / 200 200 / 200 200 / 200 100 ML @ 200 mls/hr IV.SIG Q6H [facility] Rx#:[id number] Teflaro Inj 300 MG In NS Inj 100 / 100 100 / 100 100 / 100 100 ML @ 100 mls/hr IV.SIG Q12H [facility] Rx#:[id number] Cubicin Inj 800 MG In NS Inj 100 / 100 100 ML @ 200 mls/hr IV.SIG Q48H [facility] Rx#:[id number] Mycamine Inj 150 MG In NS Inj 100 / 100 100 ML @ 100 mls/hr IV.SIG Q24H [facility] Rx#:[id number] Flagyl 500 MG Inj 100 ML @ 100 200 / 200 mls/hr IV.SIG Q6H [facility] Rx#: [id number] Tube Feeding 895 / 895 450 / 450 Tube Irrigant 120 / 120 160 / 160 Anesthesia Amount 100 / 100 Output: Urine Amount (Catheter) 750 / 750 675 / 675 950 / 950 Indwelling Urethral Catheter 750 / 750 675 / 675 950 / 950 Other: Date of Last Bowel Movement 02/06/18 02/07/18 02/06/18 # Bowel Movements 1 # Incontinent Bowel Movements 1 01/17/18 18:56 Fluid - Other Acid Fast Bacilli Smear - Final No acid fast bacilli seen 01/17/18 18:56 Fluid - Other Mycobacterial Culture - Preliminary No growth in 3 weeks 02/03/18 12:50 Blood - Peripheral Aerobic Blood Culture - Preliminary No growth in 4 days 02/03/18 12:50 Blood - Peripheral Anaerobic Blood Culture - Preliminary No growth in 4 days 02/03/18 12:56 Blood - Peripheral Aerobic Blood Culture - Preliminary No growth in 4 days 02/03/18 12:56 Blood - Peripheral Anaerobic Blood Culture - Preliminary No growth in 4 days 01/30/18 15:00 Fluid - Pleural fluid Fungal Smear - Final No fungal elements seen 01/30/18 15:00 Fluid - Pleural fluid Fungal Culture - Preliminary No growth in 1 week 02/04/18 15:24 Sputum - Endotracheal Gram Stain - Final 02/04/18 15:24 Sputum - Endotracheal Sputum Culture - Final No growth in 48 hours 01/29/18 14:11 Wound - Shoulder Fungal Smear - Final No fungal elements seen 01/29/18 14:11 Wound - Shoulder Fungal Culture - Preliminary No growth in 1 week 01/29/18 14:11 Wound - Shoulder Acid Fast Bacilli Smear - Final No acid fast bacilli seen 01/29/18 14:11 Wound - Shoulder Mycobacterial Culture - Preliminary No growth in 1 week 01/29/18 14:10 Wound - Shoulder Acid Fast Bacilli Smear - Final No acid fast bacilli seen 01/29/18 14:10 Wound - Shoulder Mycobacterial Culture - Preliminary No growth in 1 week 01/29/18 14:10 Wound - Shoulder Fungal Smear - Final No fungal elements seen 01/29/18 14:10 Wound - Shoulder Fungal Culture - Preliminary No growth in 1 week 01/29/18 13:59 Wound - Shoulder Acid Fast Bacilli Smear - Final No acid fast bacilli seen 01/29/18 13:59 Wound - Shoulder Mycobacterial Culture - Preliminary No growth in 1 week 01/29/18 13:59 Wound - Shoulder Fungal Smear - Final No fungal elements seen 01/29/18 13:59 Wound - Shoulder Fungal Culture - Preliminary No growth in 1 week 01/29/18 13:58 Wound - Shoulder Fungal Smear - Final No fungal elements seen 01/29/18 13:58 Wound - Shoulder Fungal Culture - Preliminary No growth in 1 week 01/29/18 13:58 Wound - Shoulder Acid Fast Bacilli Smear - Final No acid fast bacilli seen 01/29/18 13:58 Wound - Shoulder Mycobacterial Culture - Preliminary No growth in 1 week 01/15/18 18:25 Wound - Shoulder Fungal Smear - Final No fungal elements seen 01/15/18 18:25 Wound - Shoulder Fungal Culture - Preliminary No growth in 3 weeks 01/15/18 18:25 Wound - Shoulder Acid Fast Bacilli Smear - Final No acid fast bacilli seen 01/15/18 18:25 Wound - Shoulder Mycobacterial Culture - Preliminary No growth in 3 weeks 01/15/18 18:25 Wound - Shoulder Fungal Smear - Final No fungal elements seen 01/15/18 18:25 Wound - Shoulder Fungal Culture - Preliminary No growth in 3 weeks 01/15/18 18:25 Wound - Shoulder Acid Fast Bacilli Smear - Final No acid fast bacilli seen 01/15/18 18:25 Wound - Shoulder Mycobacterial Culture - Preliminary No growth in 3 weeks 01/31/18 11:16 Blood - Peripheral Aerobic Blood Culture - Final No growth in 5 days 01/31/18 11:16 Blood - Peripheral Anaerobic Blood Culture - Final No growth in 5 days 01/31/18 11:10 Blood - Peripheral Aerobic Blood Culture - Final No growth in 5 days 01/31/18 11:10 Blood - Peripheral Anaerobic Blood Culture - Final No growth in 5 days Lab - Hematology Results 02/06/18 02/06/18 02/06/18 00:10 05:26 09:15 WBC 8.0 8.0 RBC 2.60 L 3.09 L Hgb 7.0 L 8.5 L 8.6 L Hct 21.2 L 25.7 L 25.6 L MCV 81.6 82.9 MCH 27.1 27.7 MCHC 33.2 33.5 RDW 20.5 H 18.4 H Plt Count 254 262 MPV 9.5 9.5 Prelim Diff (Auto) Slide review pending Neut % (Auto) 84.1 H 82.6 H Lymph % (Auto) 7.5 L 9.5 Taney % (Auto) 4.3 3.6 Eos % (Auto) 3.7 4.0 Baso % (Auto) 0.4 0.3 Neut # (Auto) 6.8 6.6 Lymph # (Auto) 0.6 L 0.8 L Taney # (Auto) 0.3 0.3 Eos # (Auto) 0.3 0.3 Baso # (Auto) 0.0 0.0 WBC Differential . Manual diff final Seg Neuts % (Manual) 73 H Band Neuts % (Manual) 18 H Lymphocytes % (Manual) 3 L Monocytes % (Manual) 3 Eosinophils % (Manual) 1 Metamyelocytes % (Man) 2 H Myelocytes % (Man) Promyelocytes % (Man) Abs Neuts (Manual) 7.4 Differential Comment Auto diff final . Platelet Estimate Normal Platelet Morphology Normal Spherocytes Ovalocytes Keratocytes 02/07/18 06:00 WBC 7.4 RBC 2.87 L Hgb 8.0 L Hct 24.0 L MCV 83.8 MCH 28.1 MCHC 33.5 RDW 18.8 H Plt Count 268 MPV 9.5 Prelim Diff (Auto) Slide review pending Neut % (Auto) 81.2 H Lymph % (Auto) 10.5 [place]aney % (Auto) 4.2 Eos % (Auto) 3.8 Baso % (Auto) 0.3 Neut # (Auto) 6.0 Lymph # (Auto) 0.8 L [place]aney # (Auto) 0.3 Eos # (Auto) 0.3 Baso # (Auto) 0.0 WBC Differential Manual diff final Seg Neuts % (Manual) 70 Band Neuts % (Manual) 13 H Lymphocytes % (Manual) 9 Monocytes % (Manual) 1 Eosinophils % (Manual) 5 H Metamyelocytes % (Man) Myelocytes % (Man) 1 H Promyelocytes % (Man) 1 H Abs Neuts (Manual) 6.3 Differential Comment . Platelet Estimate Normal Platelet Morphology Normal Spherocytes Occ H Ovalocytes 1+ H Keratocytes Occ H Lab - Chemistry Results 02/06/18 02/07/18 00:10 06:00 Sodium 139 140 Potassium 3.6 3.5 Chloride 104 106 Carbon Dioxide 25.2 23.2 Anion Gap 10 11 BUN 73 H 72 H Creatinine 2.33 H 2.27 H Estimated GFR 27 L 28 L Random Glucose 152 H 146 H Calcium 8.4 L 8.5 Total Bilirubin 1.7 H AST 20 ALT 22 Alkaline Phosphatase 538 H Total Protein 5.4 L Albumin 2.5 L Imaging: ITS Impressions Abdomen/Pelvis CT 01/13/18 20:43 CONCLUSION: 1. Marked prostate enlargement. 2. Air-filled distention of sigmoid colon. 3. Cardiomegaly. Small bilateral pleural effusions. 4. Diffuse atherosclerotic disease and arterial calcification. 5. Old insufficiency type fractures of the left side of the sacrum and left- sided pubic rami. Cervical Spine MRI 01/14/18 00:00 CONCLUSION: 1. Examination is degraded by motion artifact. 2. Partial visualization of a mass involving the left supraclavicular region measuring 5.[address] scan of the soft tissues of the neck with IV contrast to further assess if the patient can't hold still for that exam. 3. Diffuse degenerative changes as detailed at each level in the above discussion. Head MRI 01/14/18 00:00 CONCLUSION: 1. No acute intracranial abnormality. 2. Encephalomalacia involving the left frontal lobe. Thoracic Spine MRI 01/14/18 00:00 CONCLUSION: 1. See the MRI of the cervical spine reported separately. 2. Orthopedic hardware at the thoracolumbar junction. 3. Patent central canal throughout. Soft Tissue Neck CT 01/16/18 00:00 CONCLUSION: 1. Partially visualized fluid and gas collection deep to the left trapezius muscle in the posterior lower neck extending into the posterior thorax. Chest CT with contrast could be performed to image the remainder of the abnormality. Differential diagnosis includes abscess and hematoma. 2. Degenerative findings of the cervical spine. Abscess Drainage CT 01/17/18 00:00 CONCLUSION: 1. Uncomplicated CT guided drainage, as above. WBC Scan Nuclear Medicine 01/18/18 00:00 CONCLUSION: 1. Multiple areas of abnormal uptake including at the upper lumbar spine around the upper left surgical hardware and at the L1-2 disc level. 2. Abnormal activity around the clip joints bilaterally being more prominent on the right. 3. Abnormal activity in the right C2-3 facet and the left C7-T1 facet. 4. Small area of signal abnormality in the posterior right sacroiliac joint region separate from surgical hardware. 5. All these areas are concerning for active infection. Shoulder X-Ray 01/21/18 00:00 CONCLUSION: Unusual positioning of the shoulder but I do not see any obvious displaced fracture of the shoulder. There is a healing third rib fracture and healing seventh rib fracture. Upper Extremity Ultrasound 01/22/18 00:00 CONCLUSION: 1. Lateral right shoulder subcutaneous complex fluid collection concerning for abscess. This is amenable to percutaneous drainage. Abscess Drainage Ultrasound 01/23/18 00:00 CONCLUSION: 1. Uncomplicated ultrasound-guided drainage catheter placement in complex inferolateral right shoulder fluid collection. Lumbar Spine MRI 01/23/18 00:00 CONCLUSION: Little or no change from previous exam. Nothing to suggest abscess Pelvis MRI 01/23/18 00:00 CONCLUSION: 1. Diffuse skin thickening and subcutaneous edema suggestive of cellulitis involving the left buttock without underlying abscess formation. 2. Rectosigmoid colon is distended with fecal debris suggestive of fecal impaction. Clinical correlation is recommended. 3. Markedly enlarged prostate. 4. Degenerative changes and scoliosis of the visualized lower lumbar spine are noted. 5. Bony changes involving the left sacrum likely representing old healed insufficiency fractures. Shoulder MRI 01/23/18 00:00 CONCLUSION: 1. Chronic complete rotator cuff tear. 2. Moderate joint fluid Abscess Drainage 01/24/18 15:37 CONCLUSION: 1. Uncomplicated percutaneous placement of drainage catheter in left shoulder. Chest CT 01/29/18 15:28 CONCLUSION: 1. Interval increase in the amount of pleural effusions bilaterally. Findings have been discussed with Dr. Tom on today's date. Thoracentesis CT 01/30/18 00:00 CONCLUSION: 1. Uncomplicated CT-guided right-sided chest tube placement. Venous Doppler Study 02/02/18 00:00 CONCLUSION: The study is negative for bilateral lower extremity deep venous thrombosis. Head CT 02/03/18 00:00 CONCLUSION: 1. Left maxillary mucosal thickening. 2. Atrophy and left frontal encephalomalacia again noted. . Chest X-Ray 02/05/18 13:52 CONCLUSION: 1. Interval extubation and placement of tracheostomy tube. 2. Hazy perihilar and bibasilar opacities which appear mildly increased from the prior study. Both costophrenic angles appear blunted consistent with small effusions. Gallbladder Ultrasound 02/06/18 00:00 CONCLUSION: 1. Gallbladder wall thickening with significant debris within the gallbladder. 2. Mild intrahepatic biliary duct enlargement. 3. Normal common bile duct. 4. If biliary obstructive disease is suspected further evaluation with MRCP should be considered. 5. Nonvisualization of the pancreas. Cholangiopancreatography MRI 02/07/18 00:00 CONCLUSION: 1. Comment bile duct is not well visualized on the study and appears small in size and is not enlarged. 2. 2 apparent tiny gallstones layering dependently in the gallbladder with no wall thickening or inflammatory change. 3. Multiple benign cystic structures in the right kidney. 4. Small bilateral pleural effusions. Abdomen X-Ray 02/07/18 11:07 CONCLUSION: Minimal gaseous distention suggesting ileus. Physical Exam: GENERAL: on vent sedated SKIN: Warm and dry. No rash HEAD: Atraumatic. Normocephalic. EYES: No scleral icterus. No injection or drainage. ENT: No nasal bleeding or discharge. Mucous membranes pink and moist. NECK: Trachea midline. No JVD. No palpable masses, but diffuse pain CARDIOVASCULAR: Regular rate and rhythm. nO murmurs RESPIRATORY: No accessory muscle use. R sided CT in place clear serous fluid GASTROINTESTINAL: Abdomen soft, mildly distended. MUSCULOSKELETAL: Extremities without clubbing, cyanosis, + increasing soft pitting edema. No obvious deformities. : [place] in, clear yellow urine NEUROLOGICAL: lightly sedated PSYCHIATRIC: unable to assess Assessment and Plan - Plan High grade staph bacteremia. MRSA 2 D echo neg R shoulder effusion , cw R shoulder septic arhtritis (MRSA)-post I&D. . 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 and infection 2 yrs ago Encephalopathy - resolved B/L septic shoulder arhtritis, MRSA, cw metastatic staph infx No PNA - clin picture and cultures more cw failure High grade PNC allergy, but tolerated meropenem OK New fever , 102 - resolved BC neg @ 72 hrs ARF/CKD w worsening renal fnx Long tem prognosis is poor taking into account pt's debility, retained hardware and very limited choice of therapeutic options Bilirubin is doubling New fever ? source: fever resolved. BC neg so far. Empiric broad spectrum coverage Worsening Alk phos, bili no h/o cholecystectomy; MRCP negative c diff negative Recs: cont daptomycin, teflaro fu BC and sputum cl untill final stool for c.diff is stool is loose dc flagyl, micafungin and azactam fu LFTs dw RN dw family @ b/s dw Dr Lawrence
[2018-02-07] MEDS: Heparin - SQ 10,000 UNITS/ML Vial SQ SCH (20:18)
[2018-02-07] MEDS: Melatonin 5 MG Tablet PO SCH (20:18)
[2018-02-07 21:23] LABS: Albumin 2.9 g/dL (3.4-5.0); Anion Gap 11 meq/L (5-15); Aspartate Aminotransferase 25 U/L (15-37); Blood Urea Nitrogen 75 mg/dL (7-18); Calcium 8.6 mg/dL (8.5-10.1); Carbon Dioxide 23.8 meq/L (21.0-32.0); Chloride 105 meq/L (98-107); Glomerular Filtration Rate 27 mL/min (>89); Glucose,Random 125 mg/dL (74-106); Potassium 3.4 meq/L (3.5-5.1); Sodium 140 meq/L (136-145)
[2018-02-07 21:27] LABS: Alanine Aminotransferase 33 U/L (12-78); Alkaline Phosphatase 761 U/L (45-117); Total Protein 5.6 g/dL (6.4-8.2)
[2018-02-08] MEDS: Oral Hygiene Kit OROPHARYNG SCH ×4 (00:05→15:52)
[2018-02-08] MEDS: Albumin Human 25% Inj 100 ML IV.SIG SCH ×2 (02:31→15:52)
[2018-02-08] MEDS: Ceftaroline Inj 300 MG in Sodium Chlor 0.9% Inj 100 ML IV.SIG SCH ×2 (02:32→15:51)
[2018-02-08 05:05] LABS: Baso % (Auto) 0.5 % (0.0-2.0); Eos # (Auto) 0.4 th/mm3 (0.0-0.4); Eos % (Auto) 5.2 % (0.0-4.0); Hematocrit 22.4 % (39.0-51.0); Hemoglobin 7.7 gm/dL (13.0-17.0); Lymph # (Auto) 0.9 th/mm3 (1.0-4.8); Lymph % (Auto) 11.3 % (9.0-44.0); Mean Corpuscular HGB Conc 34.4 % (32.0-36.0); Mean Corpuscular Hemoglobin 28.2 pg (27.0-34.0); Mean Platelet Volume 9.5 fL (7.0-11.0); Mono # (Auto) 0.4 th/mm3 (0.0-0.9); Mono % (Auto) 5.1 % (0.0-8.0); Neut % (Auto) 77.9 % (16.0-70.0); Platelet Count 296 th/mm3 (150-450); Red Blood Count 2.74 mil/mm3 (4.50-5.90); Red Cell Distribution Width 18.9 % (11.6-17.2); White Blood Count 7.8 th/mm3 (4.0-11.0)
[2018-02-08] MEDS: Levothyroxine 100 MCG Tablet PO SCH (05:12)
[2018-02-08 05:24] LABS: Calcium 8.4 mg/dL (8.5-10.1); Carbon Dioxide 23.2 meq/L (21.0-32.0); Potassium 3.3 meq/L (3.5-5.1)
--- NOTE | 2018-02-08 07:32 | P.PNCC ---
Subjective Subjective Remarks/Hospital Course: This 82-year-old gentleman was transferred emergently from the floor to the surgical intensive care unit because of rapid onset combined hypoxemic and hypercapnic respiratory failure. On arrival he has diffuse crackles throughout both lung santizo and his neck veins are distended. On admission several days ago he was dehydrated and had an element of acute kidney injury. His weight is up about 5 kg since admission though his renal function has improved. On arrival he is breathing 40 times a minute on a nonrebreathing mask with pH of 7.18 and P CO2 of 74. His acidosis is purely respiratory and associated with bronchospasm from fluid overload. B natruretic peptide is elevated to greater than 2000. Other pertinent major problems include septic joint drainage and treatment. 01/22: Critical care reconsulted for worsening resp status. On BIPAP with fulkl face mask. CXR with bilat infiltrates/ pulm edema. Reaccumulated rt shoulder collection. After d/w family proceeded with intubation and placed patient on [facility] ventilation. Placed central line. D/W Dr. Mani Sherman who is arranging US guided drainage/ drain placement for shoulder collection. 01/23: Remains sedated, orally intubated on mechanical ventilation. Significant diuresis with 11 L negative over the last 3 days. Awaiting left shoulder percutaneous drainage of collection by interventional radiology today. 1 unit PRBCs ordered as patient has borderline blood pressures with hemoglobin less than 8. 01/24: Sedated, arousable, orally intubated on mechanical ventilation. Tolerating tube feeds. s/p [id number] drain placement in rt shoulder fluid collection on 01/23. 01/25: He had a good trial on spontaneous breathing yesterday. Mechanical ventilation overnight. Started on spontaneous breathing trial this morning at 12/5 and volumes were small. Increased to 15/8 and volumes looked better with each breath. Still producing lots of thick secretions, dark yellow. Unable to extubate due to general weakness and inability to cough numerous secretions. FiO2 reduced to 40% and gas exchange good. Clearly improved respiratory function from yesterday. Tolerating tube feeds well, gastric residuals minimal , remains constipated and will start on milk of magnesia and. 01/26: Right lower lobe nicely reexpanded after 24 hours on APRV. FI02 reduced to 30%. More alert today, will attempt to extubate. Worsening azotemia appears to be prerenal. We will need to give some volume back. General strength and alertness has improved. 01/27: On BiPAP since last evening. Appears comfortable with 100% O2 sat. Awake and alert. On tube feeds via NG tube 01/28: Resting comfortably, On BIPAP overnight. Tolerating facemask during day prn. Tolerating tube feeds. Hgb 7.1 today, 1 unit PRBCs ordered. 01/29: Was on nasal cannula all day. Last night developed worsening respiratory status and tachypnea for which he was placed on BiPAP. Remains on BiPAP this morning and appears comfortable. Chest x-ray this morning shows haziness over right lung field with probable pulmonary edema versus infiltrate. 01/30: Surgery yesterday for bilateral shoulder collections under general anesthesia, tolerated procedure well was subsequently transferred back to the ICU and kept orally intubated on mechanical ventilation overnight. CT chest done yesterday revealed bilateral pleural effusions right greater than left for which CT-guided thoracentesis with pigtail catheter placement being scheduled with IR. 01/31: Remains sedated, orally intubated on mechanical ventilation. Underwent right-sided pigtail catheter placement by IR yesterday with drainage of about 800 cc of pleural fluid. Tolerating tube feeds. Planning CPAP trials today. Evaluated by Dr. Macias from pulmonary yesterday 02/01: Remains sedated, orally intubated on mechanical ventilation. On Levophed 1.5 mics per minute. Blood pressure labile, currently 140s. Significant oral secretions however ET tube with minimal secretions overnight. Tolerating tube feeds. New left IJ central line placed on 01/31 and right IJ central line removed. 02/02: Remains intubated more awake currently on 2 mics of Levophed to maintain map above 65. Patient is able to follow commands even though weak. Urine output of approximately 1200 mL in 24 hours, chest tube output 50 mL. Family is at the bedside 02/03: No acute events reported overnight. Patient remains very lethargic and weak. Tolerated CPAP intermittently yesterday. Remains on IV Lasix to mobilize fluid. Urine output 1.5 L in 24 hours. Creatinine slightly increased to 2.16, however patient is grossly fluid positive. Will continue with diuresis. Son at the bedside updated today. Because of generalized weakness it is recommended patient get a tracheostomy for safe ventilator weaning and to facilitate aggressive physical therapy 02/04: Remains off sedation today. Slightly more awake weakly follows commands x4. He does respond to track more today. Remains quite weak though. Urine output improved with Lasix drip. 2.5 L output in 24 hours, however creatinine increased to 2.26. Nephrology following 02/05: On spontaneous breathing trial this morning with pressure support of 12 spontaneous tidal volumes are around 290 and he attempts to low rate results and tachypnea greater than 35/min and tidal volume less than 200. He has been extubated unsuccessfully several times and continues to fatigue during attempts to reduce pressure support. He remains alert and cooperative and well likely be weaned from mechanical ventilation eventually but at this point he really needs a tracheostomy so we can accomplish better mobilization and more realistic intermittent ventilatory support during his final stages of weaning. Family has agreed to go to [facility] for long-term ventilator weaning. 02/06: Nuisance bleeding from fresh tracheostomy skin edge required single suture this morning. Coagulation studies are normal and platelets are normal. No evidence of any coagulation problems observed, patient made clot quite readily. Renal function remains about the same. Plan for PEG tube insertion and subsequent transfer to [facility]. 02/07: Trach site is clean and dry. We will restart DVT prophylaxis heparin dose. KUB abdomen benign. Biliary study does not suggest need for intervention. Some abdominal splinting related to anterior wall pain. 02/08: A little more difficulty during spontaneous breathing trials due to some abdominal wall pain following PEG insertion. Gas exchange is acceptable. We will start Midodrine to try to get off the last microgram of Levophed. Tracheostomy site remains clean and dry. PEG tube site clean and dry. Objective Vital Signs / I&O: Vital Signs 02/07/18 07:30 02/07/18 07:45 02/07/18 08:00 Temperature 99.5 F Pulse Rate 85 89 94 H Respiratory Rate 16 16 19 Blood Pressure 164/77 H 133/63 162/67 H Pulse Oximetry 96 96 96 02/07/18 08:15 02/07/18 08:30 02/07/18 08:45 Temperature Pulse Rate 83 87 92 H Respiratory Rate 15 15 18 Blood Pressure 158/68 H 164/72 H 155/58 H Pulse Oximetry 96 96 97 02/07/18 09:00 02/07/18 09:11 02/07/18 09:15 Temperature Pulse Rate 85 85 Respiratory Rate 14 18 28 H Blood Pressure 139/63 143/63 H Pulse Oximetry 97 97 97 02/07/18 09:30 02/07/18 09:45 02/07/18 10:00 Temperature Pulse Rate 87 91 H 94 H Respiratory Rate 35 H 38 H 34 H Blood Pressure 151/57 H 157/66 H 165/69 H Pulse Oximetry 97 97 97 02/07/18 10:15 02/07/18 10:30 02/07/18 10:45 Temperature Pulse Rate 96 H 90 93 H Respiratory Rate 32 H 15 18 Blood Pressure 173/75 H 164/69 H 163/72 H Pulse Oximetry 97 97 94 L 02/07/18 11:00 02/07/18 12:23 02/07/18 12:32 Temperature 99.8 F H Pulse Rate 93 H 110 H Respiratory Rate 16 38 H 23 Blood Pressure Pulse Oximetry 94 L 96 95 02/07/18 12:34 02/07/18 13:00 02/07/18 14:00 Temperature Pulse Rate 96 H 96 H Respiratory Rate 14 14 Blood Pressure Pulse Oximetry 100 97 97 02/07/18 15:00 02/07/18 16:00 02/07/18 16:16 Temperature 99.8 F H Pulse Rate 90 91 H Respiratory Rate 14 16 14 Blood Pressure Pulse Oximetry 96 96 97 02/07/18 17:00 02/07/18 18:00 02/07/18 19:00 Temperature Pulse Rate 90 83 85 Respiratory Rate 15 15 15 Blood Pressure Pulse Oximetry 96 96 96 02/07/18 20:00 02/07/18 20:14 02/07/18 21:00 Temperature 98.9 F Pulse Rate 92 H 96 H Respiratory Rate 14 15 17 Blood Pressure Pulse Oximetry 95 97 94 L 02/07/18 22:00 02/07/18 22:10 02/07/18 23:00 Temperature Pulse Rate 97 H 95 H Respiratory Rate 14 14 14 Blood Pressure Pulse Oximetry 95 94 L 94 L 02/08/18 00:00 02/08/18 01:00 02/08/18 01:24 Temperature 98 F Pulse Rate 95 H 93 H Respiratory Rate 14 15 16 Blood Pressure Pulse Oximetry 94 L 94 L 95 02/08/18 02:00 02/08/18 03:00 02/08/18 03:43 Temperature Pulse Rate 93 H 96 H 95 H Respiratory Rate 15 20 14 Blood Pressure 132/65 Pulse Oximetry 95 94 L 94 L 02/08/18 04:00 02/08/18 04:51 02/08/18 05:00 Temperature 97.9 F 97.0 F L Pulse Rate 89 89 Respiratory Rate 14 14 14 Blood Pressure 128/71 Pulse Oximetry 93 L 93 L 93 L 02/08/18 06:00 Temperature 96.3 F L Pulse Rate 88 Respiratory Rate 14 Blood Pressure 136/69 Pulse Oximetry 94 L Intake & Output 02/07/18 02/08/18 02/08/18 18:59 06:59 18:59 Intake Total 1310 / 1310 745 / 745 Output Total 950 / 950 1370 / 1370 Balance 360 / 360 -625 / -625 Weight 80 kg Intake: IV 700 / 700 200 / 200 Flexbumin 25% Inj 100 ML @ 60 100 / 100 100 / 100 mls/hr IV.SIG Q12H [facility] Rx#: [id number] Azactam Inj 1,000 MG In NS Inj 200 / 200 100 ML @ 200 mls/hr IV.SIG Q6H [facility] Rx#:[id number] Teflaro Inj 300 MG In NS Inj 100 / 100 100 / 100 100 ML @ 100 mls/hr IV.SIG Q12H [facility]O Rx#:[id number] Cubicin Inj 800 MG In NS Inj 100 / 100 100 ML @ 200 mls/hr IV.SIG Q48H [facility] Rx#:[id number] Flagyl 500 MG Inj 100 ML @ 100 200 / 200 mls/hr IV.SIG Q6H [facility]O Rx#: [id number] Oral 0 / 0 Oral Supplement 0 / 0 Tube Feeding 450 / 450 425 / 425 Tube Irrigant 160 / 160 Water Bolus Amount 120 / 120 Output: Stool 0 / 0 Urine/Stool Mix 0 / 0 Pleural Fluid 650 / 650 Estimated Blood Loss 20 / 20 Urine Amount (Catheter) 950 / 950 600 / 600 Indwelling Urethral Catheter 950 / 950 600 / 600 Chest Tube Drainage 100 / 100 Right 100 / 100 Other: Date of Last Bowel Movement 02/06/18 02/08/18 # Incontinent Bowel Movements 1 2 Result Diagrams: 02/08/18 04:45 02/08/18 04:45 Objective Remarks: General: Alert, interactive, on mechanical ventilation. Eyes are open, tracks with eyes and nods his head to questions HEENT: No icterus, tracheally intubated Neck : Supple aside from some chronic stiffness. Tracheostomy site clean and dry Chest/pulm: Ventilated, air entry decreased bilaterally at bases, minimal scattered rhonchi, no wheezing. Right-sided pigtail catheter in place. CVS: S1S2, irregular rhythm. No JVD. Abd: Soft, nontender, bowel sounds present. PEG site clean. Ext: Warm bilaterally. Dressing over bilateral shoulder surgical site clean dry and intact. Neuro: Easily arousable, tracking with eyes today. Weakly follows commands x4. Generalized weakness persists and perhaps a little more so today following 2 procedures. Assessment and Plan - Assessment and Plan Plan: Assessment and Plan: Acute combined hypercapnic and hypoxemic respiratory failure Fluid overload/noncardiogenic Pulmonary edema secondary to sepsis MRSA pneumonia Mucus plugging Critical illness myopathy -Continue bronchodilators -Scott required for BPH as well as diuresis, accurate hourly intake output -CT chest with bilateral effusions. S/p CT-guided right-sided thoracentesis/ pigtail catheter placement with IR on 01/30. -Daily CPAP trials. Get patient up to stretcher chair while on the vent daily. PT OT daily -Tracheostomy performed 02/05. PEG insertion 02/06. -Right chest tube removed 02/08. MRSA septicemia, septic right shoulder, L spine diskitis, left supraclavicular abscess Septic right shoulder, s/p I&D Urinary tract infection. 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 Tapering steroid Blood cultures positive for MRSA. 2D echocardiogram did not show any findings consistent with vegetations. Patient also had a right shoulder effusion, orthopedics aspirated the shoulder - approximately 30 cc of purulent fluid. Orthopedics performed surgery/drainage of bilateral shoulder collections on 01/29 Previously IR consulted s/p CT-guided drainage of left posterior supraclavicular /posterior chest wall abscess on 01/17/18. s/p US guided drainage of shoulder collection by IR done on 01/23 Continue IV antibiotics per infectious disease recommendations. NM WBC scan 01/18/18 and 01/19/18. Imaging discussed with radiology and it seems patient with multiple focal infections bilateral shoulders, also back at the hardware with diskitis/osteomyelitis. Neurology, ID, hem onc following KEKE on CKD. Getting diuresed, Strict I/O, monitor/ replete electrolytes, follow BUN/ Cr Nephrology following, appreciate recs. IV Lasix gtt per nephrology Significant fluid removal with diuresis but creatinine increased concomitantly Remains moderately fluid positive CVS Atrial Fibrillation, permanent Noncardiogenic pulmonary edema Hypotension Rate well controlled. Recent ECHO EF 65% Dr. Garner following-discussed with Dr. Garner on 01/22. We agreed with diuresing patient for noncardiogenic pulmonary edema while watching renal function/ BP. Remains on Levophed to maintain map above 65 Holding amlodipine and Lopressor in view of labile blood pressure requiring Levophed. Anemia Will keep hemoglobin above 8 g%. 1 unit PRBC given 02/02/2018 PRBC 2 units given 02/06/18 Protein calorie malnutrition -Continuous enteral nutrition through PEG tube now BPH - Continue Flomax. DVT -heparin 5000 subcu every 12 hours Access: RIJ central line placed 01/22 -discontinued on 01/31. New left IJ central line placed 01/31, DC today. 01/22: D/w Dr. Mani Sherman, D/W [employer], D/W patient's family at bedside. 01/23 D/W patient's daughter at bedside regarding current clinical status and plan of care and they voiced understanding and were agreeable with plan of care. D/W ID-Dr Tom on 01/23 01/24: Discussed with patient's family at bedside regarding current clinical status and plan of care and they voiced understanding. Discussed with ID Dr. Tom, discussed with Dr. Piña. Discussed with [employer]. 01/25: I spoke with patient's daughter at the bedside this morning. We discussed goals for ventilator weaning and nutrition. I spoke with extensive family members later in the day. 01/26: I spoke at length with the patient's daughter this morning and will speak extensively with other family members later today. 01/27: I spoke with patient's family member at bedside regarding his respiratory status and plan of care and he voiced understanding. Will come back and update other family members later. 01/28: I updated family regarding plan of care. 01/29: Update multiple family members regarding clinical status including borderline respiratory status requiring BiPAP. Patient scheduled for surgery which was also discussed. I explained that patient will probably remain on mechanical ventilation postoperatively until improvement in respiratory status. 01/30: Treated patient's family regarding current clinical status including plan of care. Discussed need for thoracentesis and pigtail catheter placement for right effusion and possible need for bronchoscopy/BAL. They voiced understanding and were agreeable with plan of care. Discussed with Dr. Tom , discussed with Dr. Jacky Macias from pulmonary who was consulted as well for further evaluation of respiratory failure. 01/31: Discussed with patient's daughter/multiple family members at bedside regarding current clinical status and plan of care and they voiced understanding and was agreeable. Discussed with ID Dr. Tom 02/01: Discussed with patient son at bedside regarding current clinical status and plan of care and he voiced understanding and was agreeable. 02/02: Updated family members at the bedside 02/03 Updated son at bedside 02/04 updated family at the bedside 02/05: Lengthy discussion with daughter this morning concerning the process of long-term ventilator weaning. They wish to proceed with tracheostomy and PEG placement with hopes of [facility]. 02/06: I spoke with his daughter at the bedside today concerning new since trach site bleeding and our ongoing plans to have him transferred to [facility] once the PEG is completed. 02/07: Discussed general patient condition today with daughter and . PEG and trach now completed. Anticipate transfer to [facility] Saturday. 02/08: Plan to transfer [facility] Saturday. Discussed in detail with family today.
[2018-02-08] MEDS: Heparin - SQ 10,000 UNITS/ML Vial SQ SCH ×2 (08:01→20:11)
[2018-02-08] MEDS: Citalopram 20 MG Tablet PO SCH (08:01)
[2018-02-08] MEDS: Pantoprazole Inj 40 MG Vial IV.PUSH SCH (08:01)
[2018-02-08] MEDS: Senna/Docusate Sodium 8.6/50 MG Tablet PO SCH ×2 (08:01→20:11)
[2018-02-08] MEDS: Potassium Bicarbonate 25 MEQ Effervescent Tablet PO SCH ×2 (08:02→20:11)
[2018-02-08] MEDS: Chlorhexidine 0.12% Oral Kit 15 ML UDC OROPHARYNG SCH ×2 (08:02→19:45)
[2018-02-08] MEDS ORDERED: Potassium Chlor 20 mEq Premix 20 MEQ/100 ML PIGGYBACK IV.SIG ONE (08:30)
--- NOTE | 2018-02-08 14:28 | P.PNNP ---
Subjective Interval history: Patient with tracheostomy and PEG tube. No acute events overnight. Creatinine at 2.26 today. <Jeni Nickerson - Last Filed: 02/08/18 14:25> Physical Exam Vital signs: Vital Signs 02/07/18 15:00 02/07/18 16:00 02/07/18 16:16 Temperature 99.8 F H Pulse Rate 90 91 H Respiratory Rate 14 16 14 Blood Pressure Pulse Oximetry 96 96 97 02/07/18 17:00 02/07/18 18:00 02/07/18 19:00 Temperature Pulse Rate 90 83 85 Respiratory Rate 15 15 15 Blood Pressure Pulse Oximetry 96 96 96 02/07/18 20:00 02/07/18 20:14 02/07/18 21:00 Temperature 98.9 F Pulse Rate 92 H 96 H Respiratory Rate 14 15 17 Blood Pressure Pulse Oximetry 95 97 94 L 02/07/18 22:00 02/07/18 22:10 02/07/18 23:00 Temperature Pulse Rate 97 H 95 H Respiratory Rate 14 14 14 Blood Pressure Pulse Oximetry 95 94 L 94 L 02/08/18 00:00 02/08/18 01:00 02/08/18 01:24 Temperature 98 F Pulse Rate 95 H 93 H Respiratory Rate 14 15 16 Blood Pressure Pulse Oximetry 94 L 94 L 95 02/08/18 02:00 02/08/18 03:00 02/08/18 03:43 Temperature Pulse Rate 93 H 96 H 95 H Respiratory Rate 15 20 14 Blood Pressure 132/65 Pulse Oximetry 95 94 L 94 L 02/08/18 04:00 02/08/18 04:51 02/08/18 05:00 Temperature 97.9 F 97.0 F L Pulse Rate 89 89 Respiratory Rate 14 14 14 Blood Pressure 128/71 Pulse Oximetry 93 L 93 L 93 L 02/08/18 06:00 02/08/18 07:00 02/08/18 08:00 Temperature 96.3 F L 98.6 F Pulse Rate 88 83 84 Respiratory Rate 14 14 14 Blood Pressure 136/69 136/61 Pulse Oximetry 94 L 94 L 94 L 02/08/18 08:14 02/08/18 09:00 02/08/18 10:00 Temperature Pulse Rate 83 82 Respiratory Rate 14 14 Blood Pressure 147/75 H Pulse Oximetry 94 L 92 L 95 02/08/18 10:09 02/08/18 10:47 02/08/18 11:00 Temperature 98.6 F Pulse Rate 85 82 Respiratory Rate 16 14 27 H Blood Pressure 147/75 H Pulse Oximetry 91 L 96 96 02/08/18 12:00 02/08/18 13:00 Temperature 97.8 F Pulse Rate 86 85 Respiratory Rate 14 23 Blood Pressure 135/65 Pulse Oximetry 96 96 Intake & Output 02/07/18 02/08/18 02/08/18 18:59 06:59 18:59 Intake Total 1310 / 1310 745 / 745 0 / 0 Output Total 950 / 950 1370 / 1370 Balance 360 / 360 -625 / -625 0 / 0 Weight 80 kg Intake: IV 700 / 700 200 / 200 Flexbumin 25% Inj 100 ML @ 60 100 / 100 100 / 100 mls/hr IV.SIG Q12H [facility] Rx#: [id number] Azactam Inj 1,000 MG In NS Inj 200 / 200 100 ML @ 200 mls/hr IV.SIG Q6H [facility] Rx#:[id number] Teflaro Inj 300 MG In NS Inj 100 / 100 100 / 100 100 ML @ 100 mls/hr IV.SIG Q12H [facility] Rx#:[id number] Cubicin Inj 800 MG In NS Inj 100 / 100 100 ML @ 200 mls/hr IV.SIG Q48H [facility] Rx#:[id number] Flagyl 500 MG Inj 100 ML @ 100 200 / 200 mls/hr IV.SIG Q6H [facility] Rx#: [id number] Oral 0 / 0 Oral Supplement 0 / 0 Tube Feeding 450 / 450 425 / 425 Tube Irrigant 160 / 160 Water Bolus Amount 120 / 120 Intake (Blood Product) Amt 0 / 0 Rbc As-3 Leukoreduced Unit 0 / 0 [id number] Output: Stool 0 / 0 Urine/Stool Mix 0 / 0 Pleural Fluid 650 / 650 Estimated Blood Loss 20 / 20 Urine Amount (Catheter) 950 / 950 600 / 600 Indwelling Urethral Catheter 950 / 950 600 / 600 Chest Tube Drainage 100 / 100 Right 100 / 100 Other: Date of Last Bowel Movement 02/06/18 02/08/18 02/08/18 # Incontinent Bowel Movements 1 2 Narrative: GENERAL: Well-nourished, well-developed patient. SKIN: Warm and dry. NECK: Supple, trachea midline. No JVD. Tracheostomy CARDIOVASCULAR: Regular rate and rhythm without murmurs, gallops, or rubs. RESPIRATORY: Breath sounds equal bilaterally. No accessory muscle use. GASTROINTESTINAL: Abdomen soft, non-tender, nondistended. Status post PEG EXTREMITIES: Edema improving. NEUROLOGICAL: Awake, alert, responsive - Urinary Catheter Management Condom Cath placed during this visit: no Indwelling Urethral Catheter Cath placed during this visit: yes Reason for continuing: Hourly intake/output Insertion date: 01/20/18 Insertion time: 11:30 <Jeni Nickerson - Last Filed: 02/08/18 14:25> Vital signs: Vital Signs 02/07/18 22:00 02/07/18 22:10 02/07/18 23:00 Temperature Pulse Rate 97 H 95 H Respiratory Rate 14 14 14 Blood Pressure Pulse Oximetry 95 94 L 94 L 02/08/18 00:00 02/08/18 01:00 02/08/18 01:24 Temperature 98 F Pulse Rate 95 H 93 H Respiratory Rate 14 15 16 Blood Pressure Pulse Oximetry 94 L 94 L 95 02/08/18 02:00 02/08/18 03:00 02/08/18 03:43 Temperature Pulse Rate 93 H 96 H 95 H Respiratory Rate 15 20 14 Blood Pressure 132/65 Pulse Oximetry 95 94 L 94 L 02/08/18 04:00 02/08/18 04:51 02/08/18 05:00 Temperature 97.9 F 97.0 F L Pulse Rate 89 89 Respiratory Rate 14 14 14 Blood Pressure 128/71 Pulse Oximetry 93 L 93 L 93 L 02/08/18 06:00 02/08/18 07:00 02/08/18 08:00 Temperature 96.3 F L 98.6 F Pulse Rate 88 83 84 Respiratory Rate 14 14 14 Blood Pressure 136/69 136/61 Pulse Oximetry 94 L 94 L 94 L 02/08/18 08:14 02/08/18 09:00 02/08/18 10:00 Temperature Pulse Rate 83 82 Respiratory Rate 14 14 Blood Pressure 147/75 H Pulse Oximetry 94 L 92 L 95 02/08/18 10:09 02/08/18 10:47 02/08/18 11:00 Temperature 98.6 F Pulse Rate 85 82 Respiratory Rate 16 14 27 H Blood Pressure 147/75 H Pulse Oximetry 91 L 96 96 02/08/18 12:00 02/08/18 13:00 02/08/18 14:00 Temperature 97.8 F Pulse Rate 86 85 81 Respiratory Rate 14 23 14 Blood Pressure 135/65 127/62 Pulse Oximetry 96 96 96 02/08/18 15:00 02/08/18 16:00 02/08/18 16:08 Temperature 98.1 F Pulse Rate 84 90 Respiratory Rate 14 15 23 Blood Pressure 130/69 Pulse Oximetry 96 96 96 02/08/18 17:00 02/08/18 18:00 02/08/18 20:25 Temperature Pulse Rate 93 H 87 Respiratory Rate 14 14 14 Blood Pressure 112/63 Pulse Oximetry 95 94 L 97 Intake & Output 02/08/18 02/08/18 02/09/18 06:59 18:59 06:59 Intake Total 745 / 745 905 / 905 Output Total 1370 / 1370 1000 / 1000 Balance -625 / -625 -95 / -95 Weight 80 kg Intake: IV 200 / 200 350 / 350 Flexbumin 25% Inj 100 ML @ 60 100 / 100 0 / 0 mls/hr IV.SIG Q12H [facility] Rx#: [id number] Teflaro Inj 300 MG In NS Inj 100 / 100 0 / 0 100 ML @ 100 mls/hr IV.SIG Q12H [facility] Rx#:[id number] Levophed-Dextrose 4 mg/250 ml 250 / 250 Drip 4 mg In 250 ml @ 2 MCG/MIN 7.5 mls/hr IV.SIG TITRATE PRN Rx#:[id number] KCl 20 mEq Premix Inj 20 meq In 100 / 100 100 ml @ 50 mls/hr IV.SIG ONCE ONE Rx#:[id number] Oral 0 / 0 Oral Supplement 0 / 0 Tube Feeding 425 / 425 375 / 375 Water Bolus Amount 120 / 120 180 / 180 Intake (Blood Product) Amt 0 / 0 Rbc As-3 Leukoreduced Unit 0 / 0 [id number] Output: Stool 0 / 0 Urine/Stool Mix 0 / 0 Pleural Fluid 650 / 650 Estimated Blood Loss 20 / 20 Urine Amount (Catheter) 600 / 600 1000 / 1000 Indwelling Urethral Catheter 600 / 600 1000 / 1000 Chest Tube Drainage 100 / 100 0 / 0 Right 100 / 100 0 / 0 Other: Date of Last Bowel Movement 02/08/18 02/08/18 # Incontinent Bowel Movements 2 - Urinary Catheter Management Condom Cath placed during this visit: no Indwelling Urethral Catheter Cath placed during this visit: no <Stephany King - Last Filed: 02/08/18 21:20> Assessment and Plan - Assessment (1) Acute renal failure Code(s): N17.9 - Acute kidney failure, unspecified Status: Acute (2) Atrial fibrillation Code(s): I48.91 - Unspecified atrial fibrillation Status: Acute Qualifiers: Atrial fibrillation type: unspecified Qualified Code(s): I48.91 - Unspecified atrial fibrillation (3) Sepsis Code(s): A41.9 - Sepsis, unspecified organism Status: Acute Qualifiers: Sepsis type: methicillin resistant Staphylococcus aureus Qualified Code(s) : A41.02 - Sepsis due to Methicillin resistant Staphylococcus aureus - Plan Patient is doing better Patient creatinine is 2.26 from 2.34 Cultures followed, fever improved Continues to have good urinary output, creatinine remains stable on Lasix 40 mg IV daily Patient status post tracheostomy and PEG tube placement. Edema is improved On potassium replacement <Jeni Nickerson - Last Filed: 02/08/18 14:25> - Assessment (1) Acute renal failure Code(s): N17.9 - Acute kidney failure, unspecified Status: Acute (2) Atrial fibrillation Code(s): I48.91 - Unspecified atrial fibrillation Status: Acute Qualifiers: Atrial fibrillation type: unspecified Qualified Code(s): I48.91 - Unspecified atrial fibrillation (3) Sepsis Code(s): A41.9 - Sepsis, unspecified organism Status: Acute Qualifiers: Sepsis type: methicillin resistant Staphylococcus aureus Qualified Code(s) : A41.02 - Sepsis due to Methicillin resistant Staphylococcus aureus - Plan Patient seen and examined, agree with above. Creatinine is stable, continue Lasix. Post Tracheostomy. <Stephany King - Last Filed: 02/08/18 21:20>
[2018-02-08] MEDS: Melatonin 5 MG Tablet PO SCH (20:11)
--- NOTE | 2018-02-08 20:29 | P.PNGI ---
Subjective Interval history: Awake Off pressors Abdomen distended with positive distant bowel sounds Bedside nurse reports two soft BMs this a.m. <Emilee Patterson - Last Filed: 02/08/18 20:29> Physical Exam Vital signs: Vital Signs 02/07/18 21:00 02/07/18 22:00 02/07/18 22:10 Temperature Pulse Rate 96 H 97 H Respiratory Rate 17 14 14 Blood Pressure Pulse Oximetry 94 L 95 94 L 02/07/18 23:00 02/08/18 00:00 02/08/18 01:00 Temperature 98 F Pulse Rate 95 H 95 H 93 H Respiratory Rate 14 14 15 Blood Pressure Pulse Oximetry 94 L 94 L 94 L 02/08/18 01:24 02/08/18 02:00 02/08/18 03:00 Temperature Pulse Rate 93 H 96 H Respiratory Rate 16 15 20 Blood Pressure Pulse Oximetry 95 95 94 L 02/08/18 03:43 02/08/18 04:00 02/08/18 04:51 Temperature 97.9 F Pulse Rate 95 H 89 Respiratory Rate 14 14 14 Blood Pressure 132/65 128/71 Pulse Oximetry 94 L 93 L 93 L 02/08/18 05:00 02/08/18 06:00 02/08/18 07:00 Temperature 97.0 F L 96.3 F L Pulse Rate 89 88 83 Respiratory Rate 14 14 14 Blood Pressure 136/69 Pulse Oximetry 93 L 94 L 94 L 02/08/18 08:00 02/08/18 08:14 02/08/18 09:00 Temperature 98.6 F Pulse Rate 84 83 Respiratory Rate 14 14 Blood Pressure 136/61 Pulse Oximetry 94 L 94 L 92 L 02/08/18 10:00 02/08/18 10:09 02/08/18 10:47 Temperature 98.6 F Pulse Rate 82 85 Respiratory Rate 14 16 14 Blood Pressure 147/75 H 147/75 H Pulse Oximetry 95 91 L 96 02/08/18 11:00 02/08/18 12:00 02/08/18 13:00 Temperature 97.8 F Pulse Rate 82 86 85 Respiratory Rate 27 H 14 23 Blood Pressure 135/65 Pulse Oximetry 96 96 96 02/08/18 14:00 02/08/18 15:00 02/08/18 16:00 Temperature 98.1 F Pulse Rate 81 84 90 Respiratory Rate 14 14 15 Blood Pressure 127/62 130/69 Pulse Oximetry 96 96 96 02/08/18 16:08 02/08/18 17:00 02/08/18 18:00 Temperature Pulse Rate 93 H 87 Respiratory Rate 23 14 14 Blood Pressure 112/63 Pulse Oximetry 96 95 94 L Intake & Output 02/08/18 02/08/18 02/09/18 06:59 18:59 06:59 Intake Total 745 / 745 905 / 905 Output Total 1370 / 1370 1000 / 1000 Balance -625 / -625 -95 / -95 Weight 80 kg Intake: IV 200 / 200 350 / 350 Flexbumin 25% Inj 100 ML @ 60 100 / 100 0 / 0 mls/hr IV.SIG Q12H [facility] Rx#: [id number] Teflaro Inj 300 MG In NS Inj 100 / 100 0 / 0 100 ML @ 100 mls/hr IV.SIG Q12H [facility] Rx#:[id number] Levophed-Dextrose 4 mg/250 ml 250 / 250 Drip 4 mg In 250 ml @ 2 MCG/MIN 7.5 mls/hr IV.SIG TITRATE PRN Rx#:[id number] KCl 20 mEq Premix Inj 20 meq In 100 / 100 100 ml @ 50 mls/hr IV.SIG ONCE ONE Rx#:[id number] Oral 0 / 0 Oral Supplement 0 / 0 Tube Feeding 425 / 425 375 / 375 Water Bolus Amount 120 / 120 180 / 180 Intake (Blood Product) Amt 0 / 0 Rbc As-3 Leukoreduced Unit 0 / 0 [id number] Output: Stool 0 / 0 Urine/Stool Mix 0 / 0 Pleural Fluid 650 / 650 Estimated Blood Loss 20 / 20 Urine Amount (Catheter) 600 / 600 1000 / 1000 Indwelling Urethral Catheter 600 / 600 1000 / 1000 Chest Tube Drainage 100 / 100 0 / 0 Right 100 / 100 0 / 0 Other: Date of Last Bowel Movement 02/08/18 02/08/18 # Incontinent Bowel Movements 2 - Constitutional no acute distress, chronically ill appearing - Routine Respiratory Exam Present: CTA bilaterally - Routine Cardiovascular Exam Present: RRR - Routine Abdominal Exam Present: distended. Absent: tenderness Comments: Distant bowel sounds present 2 reported BMs this a.m. - Routine Extremities Exam Absent: edema - Routine Skin Exam Present: dry, warm - Routine Neurological Exam Present: altered mental status - Urinary Catheter Management Condom Cath placed during this visit: no Indwelling Urethral Catheter Cath placed during this visit: yes Reason for continuing: Hourly intake/output Insertion date: 01/20/18 Insertion time: 11:30 <Emilee Patterson - Last Filed: 02/08/18 20:29> Vital signs: Vital Signs 02/08/18 09:00 02/08/18 10:00 02/08/18 10:09 Temperature 98.6 F Pulse Rate 83 82 85 Respiratory Rate 14 14 16 Blood Pressure 147/75 H 147/75 H Pulse Oximetry 92 L 95 91 L 02/08/18 10:47 02/08/18 11:00 02/08/18 12:00 Temperature 97.8 F Pulse Rate 82 86 Respiratory Rate 14 27 H 14 Blood Pressure 135/65 Pulse Oximetry 96 96 96 02/08/18 13:00 02/08/18 14:00 02/08/18 15:00 Temperature Pulse Rate 85 81 84 Respiratory Rate 23 14 14 Blood Pressure 127/62 Pulse Oximetry 96 96 96 02/08/18 16:00 02/08/18 16:08 02/08/18 17:00 Temperature 98.1 F Pulse Rate 90 93 H Respiratory Rate 15 23 14 Blood Pressure 130/69 Pulse Oximetry 96 96 95 02/08/18 18:00 02/08/18 19:00 02/08/18 20:00 Temperature 99.1 F Pulse Rate 87 85 75 Respiratory Rate 14 14 14 Blood Pressure 112/63 111/55 L Pulse Oximetry 94 L 93 L 94 L 02/08/18 20:25 02/08/18 21:00 02/08/18 22:00 Temperature Pulse Rate 89 92 H Respiratory Rate 14 15 16 Blood Pressure 108/70 Pulse Oximetry 97 95 96 02/08/18 23:00 02/09/18 00:00 02/09/18 00:40 Temperature 100.2 F H Pulse Rate 96 H 95 H Respiratory Rate 14 15 14 Blood Pressure 172/74 H Pulse Oximetry 95 94 L 95 02/09/18 01:00 02/09/18 02:00 02/09/18 03:00 Temperature Pulse Rate 100 H 96 H 98 H Respiratory Rate 15 14 15 Blood Pressure 126/64 Pulse Oximetry 95 93 L 94 L 02/09/18 04:00 02/09/18 04:42 02/09/18 05:00 Temperature 100.1 F H Pulse Rate 101 H 101 H Respiratory Rate 14 14 16 Blood Pressure 135/69 Pulse Oximetry 94 L 95 95 02/09/18 06:00 02/09/18 07:23 Temperature Pulse Rate 98 H Respiratory Rate 16 14 Blood Pressure 129/73 Pulse Oximetry 93 L 94 L Intake & Output 02/08/18 02/09/18 02/09/18 18:59 06:59 18:59 Intake Total 905 / 905 722 / 722 Output Total 1000 / 1000 570 / 570 Balance -95 / -95 152 / 152 Weight 80 kg Intake: IV 350 / 350 200 / 200 Flexbumin 25% Inj 100 ML @ 60 0 / 0 100 / 100 mls/hr IV.SIG Q12H [facility] Rx#: [id number] Teflaro Inj 300 MG In NS Inj 0 / 0 100 / 100 100 ML @ 100 mls/hr IV.SIG Q12H [facility] Rx#:[id number] Levophed-Dextrose 4 mg/250 ml 250 / 250 Drip 4 mg In 250 ml @ 2 MCG/MIN 7.5 mls/hr IV.SIG TITRATE PRN Rx#:[id number] KCl 20 mEq Premix Inj 20 meq In 100 / 100 100 ml @ 50 mls/hr IV.SIG ONCE ONE Rx#:[id number] Oral 0 / 0 Oral Supplement 0 / 0 Tube Feeding 375 / 375 372 / 372 Water Bolus Amount 180 / 180 150 / 150 Intake (Blood Product) Amt 0 / 0 Rbc As-3 Leukoreduced Unit 0 / 0 [id number] Output: Estimated Blood Loss 20 / 20 Urine Amount (Catheter) 1000 / 1000 550 / 550 Indwelling Urethral Catheter 1000 / 1000 550 / 550 Gastric Drainage 0 / 0 Gastrostomy Tube (PEG) 0 / 0 Chest Tube Drainage 0 / 0 0 / 0 Right 0 / 0 0 / 0 Other: Date of Last Bowel Movement 02/08/18 02/09/18 # Incontinent Bowel Movements 2 - Urinary Catheter Management Condom Cath placed during this visit: no Indwelling Urethral Catheter Cath placed during this visit: no <Oumar Chapman - Last Filed: 02/09/18 08:34> Results - Labs CBC & Chem 7: 02/08/18 04:45 02/08/18 04:45 Laboratory Results - last 24 hr 02/07/18 02/07/18 02/08/18 20:40 20:40 04:45 WBC 7.8 RBC 2.74 L Hgb 7.7 L Hct 22.4 L MCV 82.0 MCH 28.2 MCHC 34.4 RDW 18.9 H Plt Count 296 MPV 9.5 Neut % (Auto) 77.9 H Lymph % (Auto) 11.3 [place] % (Auto) 5.1 Eos % (Auto) 5.2 H Baso % (Auto) 0.5 Neut # (Auto) 6.0 Lymph # (Auto) 0.9 L [place] # (Auto) 0.4 Eos # (Auto) 0.4 Baso # (Auto) 0.0 WBC Differential . Differential Comment Auto diff final Sodium 140 Potassium 3.4 L Chloride 105 Carbon Dioxide 23.8 Anion Gap 11 BUN 75 H Creatinine 2.34 H Estimated GFR 27 L Random Glucose 125 H Calcium 8.6 Total Bilirubin 2.1 H AST 25 ALT 33 Alkaline Phosphatase 761 H Total Protein 5.6 L Albumin 2.9 L Procalcitonin 0.73 H MTS Gel Crossmatch 02/08/18 02/08/18 04:45 08:02 WBC RBC Hgb Hct MCV MCH MCHC RDW Plt Count MPV Neut % (Auto) Lymph % (Auto) [place] % (Auto) Eos % (Auto) Baso % (Auto) Neut # (Auto) Lymph # (Auto) [place] # (Auto) Eos # (Auto) Baso # (Auto) WBC Differential Differential Comment Sodium 142 Potassium 3.3 L Chloride 108 H Carbon Dioxide 23.2 Anion Gap 11 BUN 74 H Creatinine 2.26 H Estimated GFR 28 L Random Glucose 122 H Calcium 8.4 L Total Bilirubin AST ALT Alkaline Phosphatase Total Protein Albumin Procalcitonin MTS Gel Crossmatch See Detail Microbiology 02/03/18 12:50 Blood - Peripheral Aerobic Blood Culture - Final No growth in 5 days 02/03/18 12:50 Blood - Peripheral Anaerobic Blood Culture - Final No growth in 5 days 02/03/18 12:56 Blood - Peripheral Aerobic Blood Culture - Final No growth in 5 days 02/03/18 12:56 Blood - Peripheral Anaerobic Blood Culture - Final No growth in 5 days - Procedures Right shoulder consent for aspiration obtained. Time out performed. Right shoulder prepped sterilely with alcohol and betadine. Sterile gloves doned. Right shoulder aspirated and sent for gram stain, culture, crystals, and cell count. 30 cc of purulent drainage aspirated and sent to lab. sterile dressing applied. Patient tolerated procedure well. <Emilee Patterson - Last Filed: 02/08/18 20:29> - Labs CBC & Chem 7: 02/09/18 04:00 02/09/18 04:00 Laboratory Results - last 24 hr 02/08/18 02/09/18 02/09/18 08:02 04:00 04:00 WBC 9.9 RBC 3.24 L Hgb 9.2 L Hct 27.1 L MCV 83.7 MCH 28.3 MCHC 33.9 RDW 18.9 H Plt Count 340 MPV 9.3 Neut % (Auto) 79.1 H Lymph % (Auto) 10.6 [place] % (Auto) 3.9 Eos % (Auto) 6.0 H Baso % (Auto) 0.4 Neut # (Auto) 7.8 H Lymph # (Auto) 1.0 [place] # (Auto) 0.4 Eos # (Auto) 0.6 H Baso # (Auto) 0.0 WBC Differential . Differential Comment Auto diff final Sodium 142 Potassium 3.8 Chloride 108 H Carbon Dioxide 23.6 Anion Gap 10 BUN 75 H Creatinine 2.31 H Estimated GFR 27 L Random Glucose 114 H Calcium 8.7 MTS Gel Crossmatch See Detail Microbiology 02/03/18 12:50 Blood - Peripheral Aerobic Blood Culture - Final No growth in 5 days 02/03/18 12:50 Blood - Peripheral Anaerobic Blood Culture - Final No growth in 5 days 02/03/18 12:56 Blood - Peripheral Aerobic Blood Culture - Final No growth in 5 days 02/03/18 12:56 Blood - Peripheral Anaerobic Blood Culture - Final No growth in 5 days - Imaging Impressions Chest X-Ray 02/09/18 05:00 CONCLUSION: Cardiomegaly. Mild atelectasis or consolidation at the bases. <Ouamr Chapman - Last Filed: 02/09/18 08:34> Assessment and Plan - Plan This patient is an 82-year-old male with past medical history significant for atrial fibrillation, BPH, depression, hypertension, hypothyroidism and peptic ulcer disease. Patient also has history of GERD for which he takes pantoprazole 20 mg daily. Patient was brought to the emergency room at [facility] for evaluation of altered mental status. Previously, patient has recently returned from [place] where he was treated for 3 urinary tract infections over the last month and a half. Patient developed increasing confusion and weakness with inability to ambulate after receiving a flu shot while he was in [place]. Patient is currently intubated and mechanically ventilated, our service has been consulted for PEG tube placement. PEG tube placement Our service has been consulted to evaluate patient for PEG tube placement. Patient is currently intubated and mechanically ventilated. Presented to the emergency room for evaluation of altered mental status and generalized weakness. Patient treated for sepsis. Patient currently receiving aztreonam, ceftaroline, daptomycin and micafungin. 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 Comment bile duct is not well visualized on the study and appears small in size and is not enlarged. 2. 2 apparent tiny gallstones layering dependently in the gallbladder with no wall thickening or inflammatory change. 3. Multiple benign cystic structures in the right kidney. 4. Small bilateral pleural effusions. 02/07/2018 abdominal KUB--Minimal gaseous distention suggesting ileus. WBC 7.4 hemoglobin 8.0 hematocrit 24.0 platelet count 268 02/08/2018 Abdominal distention Patient awake alert, abdominal distention with bowel sounds present. Bedside RN reports 2 soft stools this a.m. G-tube in place with tube feeding at 30 mL's per hour. No excessive residuals reported. WBC 7.8 hemoglobin 7.7 hematocrit 22.4 02/07/2018 total bilirubin 2.1 AST 25 ALT 33 alk phos 761 Likely hepatic excretory dysfunction related to sepsis Patient critically ill and not likely candidate at this time for liver biopsy Plan PEG tube feedings as tolerated/as per dietary recommendation Continue to monitor labs-renal function and liver function At this time patient not a candidate for liver biopsy Supportive care GI will sign off at this time, please notify for any further assistance This patient has been seen by myself and Dr. Chapman and this note is written on his behalf - Attending Attestation Dr. Chapman <Emilee Patterson - Last Filed: 02/08/18 20:29> - Attending Attestation The patient was seen and examined. Agree with above note. <Oumar Chapman - Last Filed: 02/09/18 08:34>
[2018-02-09] MEDS: Oral Hygiene Kit OROPHARYNG SCH ×4 (01:18→15:57)
[2018-02-09] MEDS: Albumin Human 25% Inj 100 ML IV.SIG SCH ×2 (02:09→15:33)
[2018-02-09] MEDS: Ceftaroline Inj 300 MG in Sodium Chlor 0.9% Inj 100 ML IV.SIG SCH ×2 (02:09→15:33)
--- NOTE | 2018-02-09 04:28 | XR ---
EXAM DATE: 02/09/2018 4:13 AM EST AGE/SEX: 82 years / Male INDICATIONS: Right side chest tube removal. CLINICAL DATA: This is the patient's subsequent encounter. Patient reports that signs and symptoms h ave been present for 3 weeks and indicates a pain score of Nonresponsive. MEDICAL/SURGICAL HISTORY: Hypertension. Hypothyroidism. A-fib. BPH. MRSA. Fusion, lumbar. COMPARISON: [facility], CHEST 1V SINGLE AP, 02/05/2018. . FINDINGS: The tracheostomy tube is in good position. The heart size is enlarged. There is mild hazy density at the bases. Surgical hardware seen in the lumbar spine. There are high riding humeral head seen bilate rally. The right chest tube has been removed. A pneumothorax is not seen. CONCLUSION: Cardiomegaly. Mild atelectasis or consolidation at the bases. Electronically signed by: Misbah Blair MD Board Certified Radiologist 02/09/2018 4:26 AM EST
[2018-02-09 05:20] LABS: Baso % (Auto) 0.4 % (0.0-2.0); Eos # (Auto) 0.6 th/mm3 (0.0-0.4); Hematocrit 27.1 % (39.0-51.0); Hemoglobin 9.2 gm/dL (13.0-17.0); Lymph % (Auto) 10.6 % (9.0-44.0); Mean Corpuscular HGB Conc 33.9 % (32.0-36.0); Mean Corpuscular Hemoglobin 28.3 pg (27.0-34.0); Mean Corpuscular Volume 83.7 fL (80.0-100.0); Mean Platelet Volume 9.3 fL (7.0-11.0); Mono # (Auto) 0.4 th/mm3 (0.0-0.9); Mono % (Auto) 3.9 % (0.0-8.0); Neut # (Auto) 7.8 th/mm3 (1.8-7.7); Neut % (Auto) 79.1 % (16.0-70.0); Platelet Count 340 th/mm3 (150-450); Red Blood Count 3.24 mil/mm3 (4.50-5.90); Red Cell Distribution Width 18.9 % (11.6-17.2); White Blood Count 9.9 th/mm3 (4.0-11.0)
[2018-02-09] MEDS: Levothyroxine 100 MCG Tablet PO SCH (05:23)
[2018-02-09 05:42] LABS: Calcium 8.7 mg/dL (8.5-10.1); Carbon Dioxide 23.6 meq/L (21.0-32.0); Potassium 3.8 meq/L (3.5-5.1)
[2018-02-09] MEDS: Heparin - SQ 10,000 UNITS/ML Vial SQ SCH ×2 (08:29→20:52)
[2018-02-09] MEDS: Potassium Bicarbonate 25 MEQ Effervescent Tablet PO SCH ×2 (08:29→20:52)
[2018-02-09] MEDS: Pantoprazole Inj 40 MG Vial IV.PUSH SCH (08:29)
[2018-02-09] MEDS: Chlorhexidine 0.12% Oral Kit 15 ML UDC OROPHARYNG SCH ×2 (08:29→20:47)
[2018-02-09] MEDS: Citalopram 20 MG Tablet PO SCH (08:29)
[2018-02-09] MEDS: Senna/Docusate Sodium 8.6/50 MG Tablet PO SCH ×2 (08:30→20:53)
--- NOTE | 2018-02-09 08:37 | P.PNCC ---
Subjective Subjective Remarks/Hospital Course: This 82-year-old gentleman was transferred emergently from the floor to the surgical intensive care unit because of rapid onset combined hypoxemic and hypercapnic respiratory failure. On arrival he has diffuse crackles throughout both lung santizo and his neck veins are distended. On admission several days ago he was dehydrated and had an element of acute kidney injury. His weight is up about 5 kg since admission though his renal function has improved. On arrival he is breathing 40 times a minute on a nonrebreathing mask with pH of 7.18 and P CO2 of 74. His acidosis is purely respiratory and associated with bronchospasm from fluid overload. B natruretic peptide is elevated to greater than 2000. Other pertinent major problems include septic joint drainage and treatment. 01/22: Critical care reconsulted for worsening resp status. On BIPAP with fulkl face mask. CXR with bilat infiltrates/ pulm edema. Reaccumulated rt shoulder collection. After d/w family proceeded with intubation and placed patient [facility]. Placed central line. D/W Dr. Mani Sherman who is arranging US guided drainage/ drain placement for shoulder collection. 01/23: Remains sedated, orally intubated on mechanical ventilation. Significant diuresis with 11 L negative over the last 3 days. Awaiting left shoulder percutaneous drainage of collection by interventional radiology today. 1 unit PRBCs ordered as patient has borderline blood pressures with hemoglobin less than 8. 01/24: Sedated, arousable, orally intubated on mechanical ventilation. Tolerating tube feeds. s/p [id number] drain placement in rt shoulder fluid collection on 01/23. 01/25: He had a good trial on spontaneous breathing yesterday. Mechanical ventilation overnight. Started on spontaneous breathing trial this morning at 12/5 and volumes were small. Increased to 15/8 and volumes looked better with each breath. Still producing lots of thick secretions, dark yellow. Unable to extubate due to general weakness and inability to cough numerous secretions. FiO2 reduced to 40% and gas exchange good. Clearly improved respiratory function from yesterday. Tolerating tube feeds well, gastric residuals minimal , remains constipated and will start on milk of magnesia and. 01/26: Right lower lobe nicely reexpanded after 24 hours on APRV. FI02 reduced to 30%. More alert today, will attempt to extubate. Worsening azotemia appears to be prerenal. We will need to give some volume back. General strength and alertness has improved. 01/27: On BiPAP since last evening. Appears comfortable with 100% O2 sat. Awake and alert. On tube feeds via NG tube 01/28: Resting comfortably, On BIPAP overnight. Tolerating facemask during day prn. Tolerating tube feeds. Hgb 7.1 today, 1 unit PRBCs ordered. 01/29: Was on nasal cannula all day. Last night developed worsening respiratory status and tachypnea for which he was placed on BiPAP. Remains on BiPAP this morning and appears comfortable. Chest x-ray this morning shows haziness over right lung field with probable pulmonary edema versus infiltrate. 01/30: Surgery yesterday for bilateral shoulder collections under general anesthesia, tolerated procedure well was subsequently transferred back to the ICU and kept orally intubated on mechanical ventilation overnight. CT chest done yesterday revealed bilateral pleural effusions right greater than left for which CT-guided thoracentesis with pigtail catheter placement being scheduled with IR. 01/31: Remains sedated, orally intubated on mechanical ventilation. Underwent right-sided pigtail catheter placement by IR yesterday with drainage of about 800 cc of pleural fluid. Tolerating tube feeds. Planning CPAP trials today. Evaluated by Dr. Macias from pulmonary yesterday 02/01: Remains sedated, orally intubated on mechanical ventilation. On Levophed 1.5 mics per minute. Blood pressure labile, currently 140s. Significant oral secretions however ET tube with minimal secretions overnight. Tolerating tube feeds. New left IJ central line placed on 01/31 and right IJ central line removed. 02/02: Remains intubated more awake currently on 2 mics of Levophed to maintain map above 65. Patient is able to follow commands even though weak. Urine output of approximately 1200 mL in 24 hours, chest tube output 50 mL. Family is at the bedside 02/03: No acute events reported overnight. Patient remains very lethargic and weak. Tolerated CPAP intermittently yesterday. Remains on IV Lasix to mobilize fluid. Urine output 1.5 L in 24 hours. Creatinine slightly increased to 2.16, however patient is grossly fluid positive. Will continue with diuresis. Son at the bedside updated today. Because of generalized weakness it is recommended patient get a tracheostomy for safe ventilator weaning and to facilitate aggressive physical therapy 02/04: Remains off sedation today. Slightly more awake weakly follows commands x4. He does respond to track more today. Remains quite weak though. Urine output improved with Lasix drip. 2.5 L output in 24 hours, however creatinine increased to 2.26. Nephrology following 02/05: On spontaneous breathing trial this morning with pressure support of 12 spontaneous tidal volumes are around 290 and he attempts to low rate results and tachypnea greater than 35/min and tidal volume less than 200. He has been extubated unsuccessfully several times and continues to fatigue during attempts to reduce pressure support. He remains alert and cooperative and well likely be weaned from mechanical ventilation eventually but at this point he really needs a tracheostomy so we can accomplish better mobilization and more realistic intermittent ventilatory support during his final stages of weaning. Family has agreed to go to [facility] for long-term ventilator weaning. 02/06: Nuisance bleeding from fresh tracheostomy skin edge required single suture this morning. Coagulation studies are normal and platelets are normal. No evidence of any coagulation problems observed, patient made clot quite readily. Renal function remains about the same. Plan for PEG tube insertion and subsequent transfer to [facility] remains. 02/07: Trach site is clean and dry. We will restart DVT prophylaxis heparin dose. KUB abdomen benign. Biliary study does not suggest need for intervention. Some abdominal splinting related to anterior wall pain. 02/08: A little more difficulty during spontaneous breathing trials due to some abdominal wall pain following PEG insertion. Gas exchange is acceptable. We will start Midodrine to try to get off the last microgram of Levophed. Tracheostomy site remains clean and dry. PEG tube site clean and dry. 02/09: He has had a good past 48 hours. Tracheostomy is functioning well and helps in the mobilization of some thick secretions. Chest x-ray looks good after removal of right pigtail thoracostomy tube. Gastrostomy tube functioning well and tube feedings up to goal. Globin has been stable and leukocytosis has resolved. He is on antibiotics for the staph infection in the hardware in his back and coverage of other peripheral sites in which he formed abscesses. He continues to tolerate spontaneous breathing trials but is several weeks from formal separation from the ventilator. Arrangements have been made for him to go to [facility] in Saturday for long-term vent weaning. He has chronic edema in his right leg and right arm. Objective Vital Signs / I&O: Vital Signs 02/08/18 09:00 02/08/18 10:00 02/08/18 10:09 Temperature 98.6 F Pulse Rate 83 82 85 Respiratory Rate 14 14 16 Blood Pressure 147/75 H 147/75 H Pulse Oximetry 92 L 95 91 L 02/08/18 10:47 02/08/18 11:00 02/08/18 12:00 Temperature 97.8 F Pulse Rate 82 86 Respiratory Rate 14 27 H 14 Blood Pressure 135/65 Pulse Oximetry 96 96 96 02/08/18 13:00 02/08/18 14:00 02/08/18 15:00 Temperature Pulse Rate 85 81 84 Respiratory Rate 23 14 14 Blood Pressure 127/62 Pulse Oximetry 96 96 96 02/08/18 16:00 02/08/18 16:08 02/08/18 17:00 Temperature 98.1 F Pulse Rate 90 93 H Respiratory Rate 15 23 14 Blood Pressure 130/69 Pulse Oximetry 96 96 95 02/08/18 18:00 02/08/18 19:00 02/08/18 20:00 Temperature 99.1 F Pulse Rate 87 85 75 Respiratory Rate 14 14 14 Blood Pressure 112/63 111/55 L Pulse Oximetry 94 L 93 L 94 L 02/08/18 20:25 02/08/18 21:00 02/08/18 22:00 Temperature Pulse Rate 89 92 H Respiratory Rate 14 15 16 Blood Pressure 108/70 Pulse Oximetry 97 95 96 02/08/18 23:00 02/09/18 00:00 02/09/18 00:40 Temperature 100.2 F H Pulse Rate 96 H 95 H Respiratory Rate 14 15 14 Blood Pressure 172/74 H Pulse Oximetry 95 94 L 95 02/09/18 01:00 02/09/18 02:00 02/09/18 03:00 Temperature Pulse Rate 100 H 96 H 98 H Respiratory Rate 15 14 15 Blood Pressure 126/64 Pulse Oximetry 95 93 L 94 L 02/09/18 04:00 02/09/18 04:42 02/09/18 05:00 Temperature 100.1 F H Pulse Rate 101 H 101 H Respiratory Rate 14 14 16 Blood Pressure 135/69 Pulse Oximetry 94 L 95 95 02/09/18 06:00 02/09/18 07:23 Temperature Pulse Rate 98 H Respiratory Rate 16 14 Blood Pressure 129/73 Pulse Oximetry 93 L 94 L Intake & Output 02/08/18 02/09/18 02/09/18 18:59 06:59 18:59 Intake Total 905 / 905 722 / 722 Output Total 1000 / 1000 570 / 570 Balance -95 / -95 152 / 152 Weight 80 kg Intake: IV 350 / 350 200 / 200 Flexbumin 25% Inj 100 ML @ 60 0 / 0 100 / 100 mls/hr IV.SIG Q12H CHAYO Rx#: [id number] Teflaro Inj 300 MG In NS Inj 0 / 0 100 / 100 100 ML @ 100 mls/hr IV.SIG Q12H CHAYO Rx#:[id number] Levophed-Dextrose 4 mg/250 ml 250 / 250 Drip 4 mg In 250 ml @ 2 MCG/MIN 7.5 mls/hr IV.SIG TITRATE PRN Rx#:[id number] KCl 20 mEq Premix Inj 20 meq In 100 / 100 100 ml @ 50 mls/hr IV.SIG ONCE ONE Rx#:[id number] Oral 0 / 0 Oral Supplement 0 / 0 Tube Feeding 375 / 375 372 / 372 Water Bolus Amount 180 / 180 150 / 150 Intake (Blood Product) Amt 0 / 0 Rbc As-3 Leukoreduced Unit 0 / 0 [id number] Output: Estimated Blood Loss 20 / 20 Urine Amount (Catheter) 1000 / 1000 550 / 550 Indwelling Urethral Catheter 1000 / 1000 550 / 550 Gastric Drainage 0 / 0 Gastrostomy Tube (PEG) 0 / 0 Chest Tube Drainage 0 / 0 0 / 0 Right 0 / 0 0 / 0 Other: Date of Last Bowel Movement 02/08/18 02/09/18 # Incontinent Bowel Movements 2 Result Diagrams: 02/09/18 04:00 02/09/18 04:00 Objective Remarks: General: Alert, interactive, on mechanical ventilation. More alert today, focuses with eyes and tracks well. HEENT: No icterus, on mechanical ventilation through tracheostomy. Neck : Supple aside from some chronic stiffness. Tracheostomy site clean and dry. Chest/pulm: Good bilateral breath sounds, scattered rhonchi, no wheezing. Right -sided pigtail catheter has been removed, chest x-ray good. CVS: S1S2, irregular rhythm. No JVD. Abd: Soft, nontender, bowel sounds present. PEG site clean. PEG feedings at goal. Ext: Warm bilaterally. Dressing over bilateral shoulder surgical site clean dry and intact. Neuro: Easily arousable, tracking with eyes again today. Weakly follows commands x4. Generalized weakness persists and perhaps. Assessment and Plan - Assessment and Plan Plan: Assessment and Plan: Acute combined hypercapnic and hypoxemic respiratory failure Fluid overload/noncardiogenic Pulmonary edema secondary to sepsis MRSA pneumonia Mucus plugging Critical illness myopathy -Continue bronchodilators -Scott required for BPH as well as diuresis, accurate hourly intake output -CT chest with bilateral effusions. S/p CT-guided right-sided thoracentesis/ pigtail catheter placement with IR on 01/30. -Daily CPAP trials. Get patient up to stretcher chair while on the vent daily. PT OT daily -Tracheostomy performed 02/05. PEG insertion 02/06. -Right chest tube removed 02/08. -Chest x-ray 02/09 with right lung well expanded and effusion is gone. Left lung with some hazy infiltrates. MRSA septicemia, septic right shoulder, L spine diskitis, left supraclavicular abscess Septic right shoulder, s/p I&D Urinary tract infection. 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 Tapering steroid Blood cultures positive for MRSA. 2D echocardiogram did not show any findings consistent with vegetations. Patient also had a right shoulder effusion, orthopedics aspirated the shoulder - approximately 30 cc of purulent fluid. Orthopedics performed surgery/drainage of bilateral shoulder collections on 01/29 Previously IR consulted s/p CT-guided drainage of left posterior supraclavicular /posterior chest wall abscess on 01/17/18. s/p US guided drainage of shoulder collection by IR done on 01/23 Continue IV antibiotics per infectious disease recommendations. NM WBC scan 01/18/18 and 01/19/18. Imaging discussed with radiology and it seems patient with multiple focal infections bilateral shoulders, also back at the hardware with diskitis/osteomyelitis. Neurology, ID, hem onc following KEKE on CKD. Getting diuresed, Strict I/O, monitor/ replete electrolytes, follow BUN/ Cr Nephrology following, appreciate recs. IV Lasix gtt per nephrology Significant fluid removal with diuresis but creatinine increased concomitantly Remains moderately fluid positive with some peripheral edema. CVS Atrial Fibrillation, permanent Noncardiogenic pulmonary edema Hypotension Rate well controlled. Recent ECHO EF 65% Dr. Garner following-discussed with Dr. Garner on 01/22. We agreed with diuresing patient for noncardiogenic pulmonary edema while watching renal function/ BP. Off of all vasopressor therapy for 48 hours. Midodrine started as needed. Anemia Will keep hemoglobin above 8 g%. 1 unit PRBC given 02/02/2018 PRBC 2 units given 02/06/18 Protein calorie malnutrition -Continuous enteral nutrition through PEG tube now BPH - Continue Flomax. DVT -heparin 5000 subcu every 12 hours Access: RIJ central line placed 01/22 -discontinued on 01/31. New left IJ central line placed 01/31, DC 02/08. 01/22: D/w Dr. Mani Sherman, D/W ACOUSTICAL ENGINEER, D/W patient's family at bedside. 01/23 D/W patient's daughter at bedside regarding current clinical status and plan of care and they voiced understanding and were agreeable with plan of care. D/W ID-Dr Tom on 01/23 01/24: Discussed with patient's family at bedside regarding current clinical status and plan of care and they voiced understanding. Discussed with ID Dr. Tom, discussed with Dr. Piña. Discussed with ACOUSTICAL ENGINEER. 01/25: I spoke with patient's daughter at the bedside this morning. We discussed goals for ventilator weaning and nutrition. I spoke with extensive family members later in the day. 01/26: I spoke at length with the patient's daughter this morning and will speak extensively with other family members later today. 01/27: I spoke with patient's family member at bedside regarding his respiratory status and plan of care and he voiced understanding. Will come back and update other family members later. 01/28: I updated family regarding plan of care. 01/29: Update multiple family members regarding clinical status including borderline respiratory status requiring BiPAP. Patient scheduled for surgery which was also discussed. I explained that patient will probably remain on mechanical ventilation postoperatively until improvement in respiratory status. 01/30: Treated patient's family regarding current clinical status including plan of care. Discussed need for thoracentesis and pigtail catheter placement for right effusion and possible need for bronchoscopy/BAL. They voiced understanding and were agreeable with plan of care. Discussed with Dr. Tom , discussed with Dr. Jacky Macias from pulmonary who was consulted as well for further evaluation of respiratory failure. 01/31: Discussed with patient's daughter/multiple family members at bedside regarding current clinical status and plan of care and they voiced understanding and was agreeable. Discussed with JARETT Tom 02/01: Discussed with patient son at bedside regarding current clinical status and plan of care and he voiced understanding and was agreeable. 02/02: Updated family members at the bedside 02/03 Updated son at bedside 02/04 updated family at the bedside 02/05: Lengthy discussion with daughter this morning concerning the process of long-term ventilator weaning. They wish to proceed with tracheostomy and PEG placement with hopes [facility]. 02/06: I spoke with his daughter at the bedside today concerning new since trach site bleeding and our ongoing plans to have him transferred [facility] once the PEG is completed. 02/07: Discussed general patient condition today with daughter and . PEG and trach now completed. Anticipate transfer to [facility] Saturday. 02/08: Plan to [facility]. Discussed in detail with family today. 02/09: [facility] plan [facility] Saturday. Discussed in great detail with family.
--- NOTE | 2018-02-09 12:30 | P.PNNP ---
Subjective Interval history: Tracheostomy, breathing trial. Plan for [facility] possibly tomorrow. Creatinine at 2.3 today with good urinary output. <Jeni Nickerson - Last Filed: 02/09/18 12:25> Physical Exam Vital signs: Vital Signs 02/08/18 13:00 02/08/18 14:00 02/08/18 15:00 Temperature Pulse Rate 85 81 84 Respiratory Rate 23 14 14 Blood Pressure 127/62 Pulse Oximetry 96 96 96 02/08/18 16:00 02/08/18 16:08 02/08/18 17:00 Temperature 98.1 F Pulse Rate 90 93 H Respiratory Rate 15 23 14 Blood Pressure 130/69 Pulse Oximetry 96 96 95 02/08/18 18:00 02/08/18 19:00 02/08/18 20:00 Temperature 99.1 F Pulse Rate 87 85 75 Respiratory Rate 14 14 14 Blood Pressure 112/63 111/55 L Pulse Oximetry 94 L 93 L 94 L 02/08/18 20:25 02/08/18 21:00 02/08/18 22:00 Temperature Pulse Rate 89 92 H Respiratory Rate 14 15 16 Blood Pressure 108/70 Pulse Oximetry 97 95 96 02/08/18 23:00 02/09/18 00:00 02/09/18 00:40 Temperature 100.2 F H Pulse Rate 96 H 95 H Respiratory Rate 14 15 14 Blood Pressure 172/74 H Pulse Oximetry 95 94 L 95 02/09/18 01:00 02/09/18 02:00 02/09/18 03:00 Temperature Pulse Rate 100 H 96 H 98 H Respiratory Rate 15 14 15 Blood Pressure 126/64 Pulse Oximetry 95 93 L 94 L 02/09/18 04:00 02/09/18 04:42 02/09/18 05:00 Temperature 100.1 F H Pulse Rate 101 H 101 H Respiratory Rate 14 14 16 Blood Pressure 135/69 Pulse Oximetry 94 L 95 95 02/09/18 06:00 02/09/18 07:00 02/09/18 07:23 Temperature Pulse Rate 98 H 96 H Respiratory Rate 16 14 14 Blood Pressure 129/73 Pulse Oximetry 93 L 92 L 94 L 02/09/18 08:00 02/09/18 09:00 02/09/18 10:00 Temperature 99.6 F Pulse Rate 89 95 H 94 H Respiratory Rate 14 18 15 Blood Pressure 116/57 L 153/72 H Pulse Oximetry 92 L 94 L 94 L 02/09/18 11:00 02/09/18 12:04 Temperature Pulse Rate 99 H Respiratory Rate 28 H 22 Blood Pressure Pulse Oximetry 95 94 L Intake & Output 02/08/18 02/09/18 02/09/18 18:59 06:59 18:59 Intake Total 905 / 905 722 / 722 Output Total 1000 / 1000 570 / 570 Balance -95 / -95 152 / 152 Weight 80 kg Intake: IV 350 / 350 200 / 200 Flexbumin 25% Inj 100 ML @ 60 0 / 0 100 / 100 mls/hr IV.SIG Q12H [facility] Rx#: [id number] Teflaro Inj 300 MG In NS Inj 0 / 0 100 / 100 100 ML @ 100 mls/hr IV.SIG Q12H [facility] Rx#:[id number] Levophed-Dextrose 4 mg/250 ml 250 / 250 Drip 4 mg In 250 ml @ 2 MCG/MIN 7.5 mls/hr IV.SIG TITRATE [facility] Rx#:[id number] KCl 20 mEq Premix Inj 20 meq In 100 / 100 100 ml @ 50 mls/hr IV.SIG ONCE ONE Rx#:[id number] Oral 0 / 0 Oral Supplement 0 / 0 Tube Feeding 375 / 375 372 / 372 Water Bolus Amount 180 / 180 150 / 150 Intake (Blood Product) Amt 0 / 0 Rbc As-3 Leukoreduced Unit 0 / 0 [id number] Output: Estimated Blood Loss 20 / 20 Urine Amount (Catheter) 1000 / 1000 550 / 550 Indwelling Urethral Catheter 1000 / 1000 550 / 550 Gastric Drainage 0 / 0 Gastrostomy Tube (PEG) 0 / 0 Chest Tube Drainage 0 / 0 0 / 0 Right 0 / 0 0 / 0 Other: Date of Last Bowel Movement 02/08/18 02/09/18 02/09/18 # Incontinent Bowel Movements 2 Narrative: GENERAL: Well-nourished, well-developed patient. SKIN: Warm and dry. NECK: Supple, trachea midline. No JVD. Tracheostomy CARDIOVASCULAR: Regular rate and rhythm without murmurs, gallops, or rubs. RESPIRATORY: Breath sounds equal bilaterally. No accessory muscle use. GASTROINTESTINAL: Abdomen soft, non-tender, nondistended. Status post PEG EXTREMITIES: Edema improving. NEUROLOGICAL: Awake, alert, responsive - Urinary Catheter Management Condom Cath placed during this visit: no Indwelling Urethral Catheter Cath placed during this visit: yes Reason for continuing: Hourly intake/output Insertion date: 01/20/18 Insertion time: 11:30 <Jeni Nickerson - Last Filed: 02/09/18 12:25> Vital signs: Vital Signs 02/08/18 22:00 02/08/18 23:00 02/09/18 00:00 Temperature 100.2 F H Pulse Rate 92 H 96 H 95 H Respiratory Rate 16 14 15 Blood Pressure 108/70 172/74 H Pulse Oximetry 96 95 94 L 02/09/18 00:40 02/09/18 01:00 02/09/18 02:00 Temperature Pulse Rate 100 H 96 H Respiratory Rate 14 15 14 Blood Pressure 126/64 Pulse Oximetry 95 95 93 L 02/09/18 03:00 02/09/18 04:00 02/09/18 04:42 Temperature 100.1 F H Pulse Rate 98 H 101 H Respiratory Rate 15 14 14 Blood Pressure 135/69 Pulse Oximetry 94 L 94 L 95 02/09/18 05:00 02/09/18 06:00 02/09/18 07:00 Temperature Pulse Rate 101 H 98 H 96 H Respiratory Rate 16 16 14 Blood Pressure 129/73 Pulse Oximetry 95 93 L 92 L 02/09/18 07:23 02/09/18 08:00 02/09/18 09:00 Temperature 99.6 F Pulse Rate 92 H 95 H Respiratory Rate 14 14 18 Blood Pressure 116/57 L Pulse Oximetry 94 L 92 L 94 L 02/09/18 10:00 02/09/18 11:00 02/09/18 12:00 Temperature 99.6 F Pulse Rate 94 H 99 H 99 H Respiratory Rate 15 28 H 34 H Blood Pressure 153/72 H 154/66 H Pulse Oximetry 94 L 95 95 02/09/18 12:04 02/09/18 13:00 02/09/18 14:00 Temperature Pulse Rate 101 H 98 H Respiratory Rate 22 16 14 Blood Pressure 130/55 L Pulse Oximetry 94 L 94 L 94 L 02/09/18 15:00 02/09/18 16:00 02/09/18 16:51 Temperature 99.3 F Pulse Rate 98 H 93 H Respiratory Rate 15 15 17 Blood Pressure 129/69 Pulse Oximetry 94 L 94 L 96 02/09/18 17:00 02/09/18 18:00 02/09/18 18:08 Temperature Pulse Rate 95 H 93 H 93 H Respiratory Rate 14 18 15 Blood Pressure 130/63 Pulse Oximetry 93 L 94 L 94 L 02/09/18 20:28 Temperature Pulse Rate Respiratory Rate 14 Blood Pressure Pulse Oximetry 96 Intake & Output 02/09/18 02/09/18 02/10/18 06:59 18:59 06:59 Intake Total 722 / 722 758 / 758 100 / 100 Output Total 570 / 570 600 / 600 Balance 152 / 152 158 / 158 100 / 100 Weight 80 kg Intake: IV 200 / 200 200 / 200 100 / 100 Flexbumin 25% Inj 100 ML @ 60 100 / 100 100 / 100 mls/hr IV.SIG Q12H [facility] Rx#: [id number] Teflaro Inj 300 MG In NS Inj 100 / 100 100 / 100 100 ML @ 100 mls/hr IV.SIG Q12H [facility] Rx#:[id number] Cubicin Inj 800 MG In NS Inj 100 / 100 100 ML @ 200 mls/hr IV.SIG Q48H [facility] Rx#:[id number] Oral 0 / 0 Oral Supplement 0 / 0 Tube Feeding 372 / 372 558 / 558 Water Bolus Amount 150 / 150 Output: Estimated Blood Loss 20 / 20 Urine Amount (Catheter) 550 / 550 600 / 600 Indwelling Urethral Catheter 550 / 550 600 / 600 Gastric Drainage 0 / 0 Gastrostomy Tube (PEG) 0 / 0 Chest Tube Drainage 0 / 0 Right 0 / 0 Other: Date of Last Bowel Movement 02/09/18 02/09/18 # Bowel Movements 5 # Incontinent Bowel Movements 2 - Urinary Catheter Management Condom Cath placed during this visit: no Indwelling Urethral Catheter Cath placed during this visit: no <Stephany King - Last Filed: 02/09/18 21:47> Assessment and Plan - Assessment (1) Acute renal failure Code(s): N17.9 - Acute kidney failure, unspecified Status: Acute (2) Atrial fibrillation Code(s): I48.91 - Unspecified atrial fibrillation Status: Acute Qualifiers: Atrial fibrillation type: unspecified Qualified Code(s): I48.91 - Unspecified atrial fibrillation (3) Sepsis Code(s): A41.9 - Sepsis, unspecified organism Status: Acute Qualifiers: Sepsis type: methicillin resistant Staphylococcus aureus Qualified Code(s) : A41.02 - Sepsis due to Methicillin resistant Staphylococcus aureus - Plan Continues to have good urinary output, creatinine remains stable at 2.3. Recommend to continue Lasix 40 mg IV daily, still has edema. Patient status post tracheostomy and PEG tube placement. Avoid Nephrotoxins. Possible placement at [facility] tomorrow. <Jeni Nickerson - Last Filed: 02/09/18 12:25> - Assessment (1) Acute renal failure Code(s): N17.9 - Acute kidney failure, unspecified Status: Acute (2) Atrial fibrillation Code(s): I48.91 - Unspecified atrial fibrillation Status: Acute Qualifiers: Atrial fibrillation type: unspecified Qualified Code(s): I48.91 - Unspecified atrial fibrillation (3) Sepsis Code(s): A41.9 - Sepsis, unspecified organism Status: Acute Qualifiers: Sepsis type: methicillin resistant Staphylococcus aureus Qualified Code(s) : A41.02 - Sepsis due to Methicillin resistant Staphylococcus aureus - Plan Patient seen and examined, agree with above. Creatinine is stable at 2.3, Continue Lasix. <Stephany King - Last Filed: 02/09/18 21:47>
[2018-02-09] MEDS: DAPTOmycin Inj 800 MG in Sodium Chlor 0.9% Inj 100 ML IV.SIG SCH (16:49)
[2018-02-09] MEDS: Melatonin 5 MG Tablet PO SCH (20:52)
[2018-02-10] MEDS: Oral Hygiene Kit OROPHARYNG SCH ×2 (00:07→04:31)
[2018-02-10] MEDS: Albumin Human 25% Inj 100 ML IV.SIG SCH ×2 (02:15→15:36)
[2018-02-10] MEDS: Ceftaroline Inj 300 MG in Sodium Chlor 0.9% Inj 100 ML IV.SIG SCH (02:15)
[2018-02-10] MEDS: Levothyroxine 100 MCG Tablet PO SCH (05:14)
[2018-02-10 07:17] LABS: Calcium 8.9 mg/dL (8.5-10.1); Carbon Dioxide 22.9 meq/L (21.0-32.0); Potassium 3.6 meq/L (3.5-5.1)
[2018-02-10] MEDS: Citalopram 20 MG Tablet PO SCH (08:10)
[2018-02-10] MEDS: Heparin - SQ 10,000 UNITS/ML Vial SQ SCH ×2 (08:10→21:05)
[2018-02-10] MEDS: Potassium Bicarbonate 25 MEQ Effervescent Tablet PO SCH ×2 (08:11→21:06)
[2018-02-10] MEDS: Senna/Docusate Sodium 8.6/50 MG Tablet PO SCH ×2 (08:11→20:07)
[2018-02-10] MEDS: Pantoprazole Inj 40 MG Vial IV.PUSH SCH (08:11)
--- NOTE | 2018-02-10 13:02 | P.PNID ---
Subjective Remarks: On vent, sp trach+ PEG On vent crestinine slowly creeping up + new non pruritic rash no fever Antibiotics: v teflaro daptomycin Lines: Line sites with no e.o infection Past Medical History: reviewed Allergies/Adverse Reactions: Allergies amoxicillin Allergy (Severe, Verified 01/13/18 20:44) Hives Objective Vital Signs 02/09/18 13:00 02/09/18 14:00 02/09/18 15:00 Temperature Pulse Rate 101 H 98 H 98 H Respiratory Rate 16 14 15 Blood Pressure 130/55 L Pulse Oximetry 94 L 94 L 94 L 02/09/18 16:00 02/09/18 16:51 02/09/18 17:00 Temperature 99.3 F Pulse Rate 93 H 95 H Respiratory Rate 15 17 14 Blood Pressure 129/69 Pulse Oximetry 94 L 96 93 L 02/09/18 18:00 02/09/18 18:08 02/09/18 19:00 Temperature Pulse Rate 93 H 93 H 101 H Respiratory Rate 18 15 15 Blood Pressure 130/63 Pulse Oximetry 94 L 94 L 96 02/09/18 20:00 18 20:28 02/09/18 20:30 Temperature 100.1 F H Pulse Rate 103 H 108 H Respiratory Rate 14 14 14 Blood Pressure 134/65 Pulse Oximetry 95 96 95 02/09/18 20:49 02/09/18 21:00 02/09/18 21:19 Temperature Pulse Rate 110 H 109 H 117 H Respiratory Rate 15 18 15 Blood Pressure 130/62 114/80 Pulse Oximetry 95 95 94 L 02/09/18 21:49 02/09/18 22:00 02/09/18 22:19 Temperature Pulse Rate 110 H 113 H 112 H Respiratory Rate 14 16 17 Blood Pressure 115/74 121/80 Pulse Oximetry 94 L 94 L 96 02/09/18 22:49 02/09/18 23:00 02/09/18 23:19 Temperature Pulse Rate 113 H Respiratory Rate 14 14 16 Blood Pressure 124/79 136/88 Pulse Oximetry 95 88 L 85 L 02/09/18 23:49 02/09/18 23:52 02/10/18 00:00 Temperature 100.2 F H Pulse Rate 106 H 113 H Respiratory Rate 14 14 16 Blood Pressure 131/74 Pulse Oximetry 95 96 93 L 02/10/18 00:19 02/10/18 00:49 02/10/18 01:00 Temperature Pulse Rate 110 H 120 H 115 H Respiratory Rate 16 17 16 Blood Pressure 128/64 Pulse Oximetry 95 93 L 94 L 02/10/18 01:19 02/10/18 01:49 02/10/18 02:00 Temperature Pulse Rate 111 H 106 H 112 H Respiratory Rate 15 15 17 Blood Pressure 111/61 117/66 Pulse Oximetry 93 L 91 L 96 02/10/18 02:19 02/10/18 02:49 02/10/18 03:00 Temperature Pulse Rate 108 H 103 H 106 H Respiratory Rate 16 12 17 Blood Pressure 118/63 121/59 L Pulse Oximetry 92 L 92 L 89 L 02/10/18 03:19 02/10/18 03:49 02/10/18 04:00 Temperature 99.9 F H Pulse Rate 106 H 101 H 102 H Respiratory Rate 17 17 17 Blood Pressure 134/61 127/56 L Pulse Oximetry 92 L 97 95 02/10/18 04:19 02/10/18 04:21 02/10/18 04:49 Temperature Pulse Rate 104 H 105 H Respiratory Rate 15 17 14 Blood Pressure 118/80 115/56 L Pulse Oximetry 98 96 96 02/10/18 05:00 02/10/18 05:19 02/10/18 05:49 Temperature Pulse Rate 99 H 98 H 98 H Respiratory Rate 16 16 17 Blood Pressure 128/66 112/65 Pulse Oximetry 94 L 94 L 94 L 02/10/18 06:00 02/10/18 06:19 02/10/18 06:49 Temperature Pulse Rate 98 H 89 94 H Respiratory Rate 14 14 14 Blood Pressure 113/66 103/59 L Pulse Oximetry 93 L 96 94 L 02/10/18 07:00 02/10/18 07:19 02/10/18 07:49 Temperature Pulse Rate 95 H 89 90 Respiratory Rate 15 14 14 Blood Pressure 91/58 L 121/70 Pulse Oximetry 95 96 95 02/10/18 08:00 02/10/18 08:19 02/10/18 08:49 Temperature 97.9 F Pulse Rate 86 91 H 95 H Respiratory Rate 14 14 19 Blood Pressure 117/56 L 122/55 L Pulse Oximetry 96 96 02/10/18 09:00 02/10/18 09:23 02/10/18 11:50 Temperature Pulse Rate 90 Respiratory Rate 14 14 17 Blood Pressure Pulse Oximetry 95 94 L 96 Intake & Output 02/09/18 02/10/18 02/10/18 18:59 06:59 18:59 Intake Total 758 / 758 910 / 910 Output Total 600 / 600 400 / 400 Balance 158 / 158 510 / 510 Weight 79.7 kg Intake: IV 200 / 200 300 / 300 Flexbumin 25% Inj 100 ML @ 60 100 / 100 100 / 100 mls/hr IV.SIG Q12H [facility] Rx#: [id number] Teflaro Inj 300 MG In NS Inj 100 / 100 100 / 100 100 ML @ 100 mls/hr IV.SIG Q12H [facility] Rx#:[id number] Cubicin Inj 800 MG In NS Inj 100 / 100 100 ML @ 200 mls/hr IV.SIG Q48H [facility] Rx#:[id number] Tube Feeding 558 / 558 510 / 510 Tube Irrigant 100 / 100 Output: Urine Amount (Catheter) 600 / 600 400 / 400 Indwelling Urethral Catheter 600 / 600 400 / 400 Other: Date of Last Bowel Movement 02/09/18 02/10/18 02/10/18 # Bowel Movements 5 # Incontinent Bowel Movements 2 02/03/18 12:50 Blood - Peripheral Aerobic Blood Culture - Final No growth in 5 days 02/03/18 12:50 Blood - Peripheral Anaerobic Blood Culture - Final No growth in 5 days 02/03/18 12:56 Blood - Peripheral Aerobic Blood Culture - Final No growth in 5 days 02/03/18 12:56 Blood - Peripheral Anaerobic Blood Culture - Final No growth in 5 days 01/17/18 18:56 Fluid - Other Acid Fast Bacilli Smear - Final No acid fast bacilli seen 01/17/18 18:56 Fluid - Other Mycobacterial Culture - Preliminary No growth in 3 weeks Lab - Hematology Results 02/09/18 04:00 WBC 9.9 RBC 3.24 L Hgb 9.2 L Hct 27.1 L MCV 83.7 MCH 28.3 MCHC 33.9 RDW 18.9 H Plt Count 340 MPV 9.3 Neut % (Auto) 79.1 H Lymph % (Auto) 10.6 [place] % (Auto) 3.9 Eos % (Auto) 6.0 H Baso % (Auto) 0.4 Neut # (Auto) 7.8 H Lymph # (Auto) 1.0 [place] # (Auto) 0.4 Eos # (Auto) 0.6 H Baso # (Auto) 0.0 WBC Differential . Differential Comment Auto diff final Lab - Chemistry Results 02/09/18 02/10/18 02/10/18 04:00 06:24 06:24 Sodium 142 143 Potassium 3.8 3.6 Chloride 108 H 110 H Carbon Dioxide 23.6 22.9 Anion Gap 10 10 BUN 75 H 83 H Creatinine 2.31 H 2.53 H Estimated GFR 27 L 25 L Random Glucose 114 H 168 H Calcium 8.7 8.9 Total Creatine Kinase 20 L Imaging: ITS Impressions Abdomen/Pelvis CT 01/13/18 20:43 CONCLUSION: 1. Marked prostate enlargement. 2. Air-filled distention of sigmoid colon. 3. Cardiomegaly. Small bilateral pleural effusions. 4. Diffuse atherosclerotic disease and arterial calcification. 5. Old insufficiency type fractures of the left side of the sacrum and left- sided pubic rami. Cervical Spine MRI 01/14/18 00:00 CONCLUSION: 1. Examination is degraded by motion artifact. 2. Partial visualization of a mass involving the left supraclavicular region measuring 5.[address] scan of the soft tissues of the neck with IV contrast to further assess if the patient can't hold still for that exam. 3. Diffuse degenerative changes as detailed at each level in the above discussion. Head MRI 01/14/18 00:00 CONCLUSION: 1. No acute intracranial abnormality. 2. Encephalomalacia involving the left frontal lobe. Thoracic Spine MRI 01/14/18 00:00 CONCLUSION: 1. See the MRI of the cervical spine reported separately. 2. Orthopedic hardware at the thoracolumbar junction. 3. Patent central canal throughout. Soft Tissue Neck CT 01/16/18 00:00 CONCLUSION: 1. Partially visualized fluid and gas collection deep to the left trapezius muscle in the posterior lower neck extending into the posterior thorax. Chest CT with contrast could be performed to image the remainder of the abnormality. Differential diagnosis includes abscess and hematoma. 2. Degenerative findings of the cervical spine. Abscess Drainage CT 01/17/18 00:00 CONCLUSION: 1. Uncomplicated CT guided drainage, as above. WBC Scan Nuclear Medicine 01/18/18 00:00 CONCLUSION: 1. Multiple areas of abnormal uptake including at the upper lumbar spine around the upper left surgical hardware and at the L1-2 disc level. 2. Abnormal activity around the clip joints bilaterally being more prominent on the right. 3. Abnormal activity in the right C2-3 facet and the left C7-T1 facet. 4. Small area of signal abnormality in the posterior right sacroiliac joint region separate from surgical hardware. 5. All these areas are concerning for active infection. Shoulder X-Ray 01/21/18 00:00 CONCLUSION: Unusual positioning of the shoulder but I do not see any obvious displaced fracture of the shoulder. There is a healing third rib fracture and healing seventh rib fracture. Upper Extremity Ultrasound 01/22/18 00:00 CONCLUSION: 1. Lateral right shoulder subcutaneous complex fluid collection concerning for abscess. This is amenable to percutaneous drainage. Abscess Drainage Ultrasound 01/23/18 00:00 CONCLUSION: 1. Uncomplicated ultrasound-guided drainage catheter placement in complex inferolateral right shoulder fluid collection. Lumbar Spine MRI 01/23/18 00:00 CONCLUSION: Little or no change from previous exam. Nothing to suggest abscess Pelvis MRI 01/23/18 00:00 CONCLUSION: 1. Diffuse skin thickening and subcutaneous edema suggestive of cellulitis involving the left buttock without underlying abscess formation. 2. Rectosigmoid colon is distended with fecal debris suggestive of fecal impaction. Clinical correlation is recommended. 3. Markedly enlarged prostate. 4. Degenerative changes and scoliosis of the visualized lower lumbar spine are noted. 5. Bony changes involving the left sacrum likely representing old healed insufficiency fractures. Shoulder MRI 01/23/18 00:00 CONCLUSION: 1. Chronic complete rotator cuff tear. 2. Moderate joint fluid Abscess Drainage 01/24/18 15:37 CONCLUSION: 1. Uncomplicated percutaneous placement of drainage catheter in left shoulder. Chest CT 01/29/18 15:28 CONCLUSION: 1. Interval increase in the amount of pleural effusions bilaterally. Findings have been discussed with Dr. Tom on today's date. Thoracentesis CT 01/30/18 00:00 CONCLUSION: 1. Uncomplicated CT-guided right-sided chest tube placement. Venous Doppler Study 02/02/18 00:00 CONCLUSION: The study is negative for bilateral lower extremity deep venous thrombosis. Head CT 02/03/18 00:00 CONCLUSION: 1. Left maxillary mucosal thickening. 2. Atrophy and left frontal encephalomalacia again noted. . Gallbladder Ultrasound 02/06/18 00:00 CONCLUSION: 1. Gallbladder wall thickening with significant debris within the gallbladder. 2. Mild intrahepatic biliary duct enlargement. 3. Normal common bile duct. 4. If biliary obstructive disease is suspected further evaluation with MRCP should be considered. 5. Nonvisualization of the pancreas. Cholangiopancreatography MRI 02/07/18 00:00 CONCLUSION: 1. Comment bile duct is not well visualized on the study and appears small in size and is not enlarged. 2. 2 apparent tiny gallstones layering dependently in the gallbladder with no wall thickening or inflammatory change. 3. Multiple benign cystic structures in the right kidney. 4. Small bilateral pleural effusions. Abdomen X-Ray 02/07/18 11:07 CONCLUSION: Minimal gaseous distention suggesting ileus. Chest X-Ray 02/09/18 05:00 CONCLUSION: Cardiomegaly. Mild atelectasis or consolidation at the bases. Physical Exam: GENERAL: on vent sedated SKIN: Warm and dry. + diffuse macular -papular rash non pruritic involving abdomen, torso, thighs and arms HEAD: Atraumatic. Normocephalic. EYES: No scleral icterus. No injection or drainage. ENT: No nasal bleeding or discharge. Mucous membranes pink and moist. NECK: Trachea midline. No JVD. No palpable masses, but diffuse pain CARDIOVASCULAR: Regular rate and rhythm. nO murmurs RESPIRATORY: No accessory muscle use. GASTROINTESTINAL: Abdomen soft, mildly distended. MUSCULOSKELETAL: Extremities without clubbing, cyanosis, + increasing soft pitting edema. No obvious deformities. : [place] in, clear yellow urine NEUROLOGICAL: lightly sedated PSYCHIATRIC: unable to assess Assessment and Plan - Plan High grade staph bacteremia. MRSA 2 D echo neg R shoulder effusion , cw R shoulder septic arhtritis (MRSA)-post I&D. . 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 and infection 2 yrs ago Encephalopathy - resolved B/L septic shoulder arhtritis, MRSA, cw metastatic staph infx No PNA - clin picture and cultures more cw failure High grade PNC allergy, but tolerated meropenem OK New fever , 102 - resolved BC neg @ 72 hrs ARF/CKD w worsening renal fnx Long tem prognosis is poor taking into account pt's debility, retained hardware and very limited choice of therapeutic options Bilirubin is doubling New fever ? source: fever resolved. BC neg so far. Empiric broad spectrum coverage Worsening Alk phos, bili no h/o cholecystectomy; MRCP negative Rash, allergic reaction to teflaro most likely - h/o allergic reaction to amoxicillin LFTs still worsening Recs: cont daptomycin, increase dose to 12 mg dc teflaro and monitor rash fu LFTs will cont IV abx x 12 weeks total MR in 3 weeks (6 wks from the last one on 01/23). With contrast if feasible by GFR After IV abx completed will need to be on oral indefinetely. Unfortunately very limited options: Bactrim (not an option with curretn GFR) Linezolid - toxicity aw with linezolid long use is very high and likely will preclude mcfp suppression with this agent. Tedizolid may be an option since its tox profile is much mildler than zyvox poonam RN poonam family @ b/s poonam [place]
--- NOTE | 2018-02-10 14:34 | P.PNCC ---
Subjective Subjective Remarks/Hospital Course: This 82-year-old gentleman was transferred emergently from the floor to the surgical intensive care unit because of rapid onset combined hypoxemic and hypercapnic respiratory failure. On arrival he has diffuse crackles throughout both lung santizo and his neck veins are distended. On admission several days ago he was dehydrated and had an element of acute kidney injury. His weight is up about 5 kg since admission though his renal function has improved. On arrival he is breathing 40 times a minute on a nonrebreathing mask with pH of 7.18 and P CO2 of 74. His acidosis is purely respiratory and associated with bronchospasm from fluid overload. B natruretic peptide is elevated to greater than 2000. Other pertinent major problems include septic joint drainage and treatment. 01/22: Critical care reconsulted for worsening resp status. On BIPAP with fulkl face mask. CXR with bilat infiltrates/ pulm edema. Reaccumulated rt shoulder collection. After d/w family proceeded with intubation and placed patient on [facility] ventilation. Placed central line. D/W Dr. Mani Sherman who is arranging US guided drainage/ drain placement for shoulder collection. 01/23: Remains sedated, orally intubated on mechanical ventilation. Significant diuresis with 11 L negative over the last 3 days. Awaiting left shoulder percutaneous drainage of collection by interventional radiology today. 1 unit PRBCs ordered as patient has borderline blood pressures with hemoglobin less than 8. 01/24: Sedated, arousable, orally intubated on mechanical ventilation. Tolerating tube feeds. s/p [id number] drain placement in rt shoulder fluid collection on 01/23. 01/25: He had a good trial on spontaneous breathing yesterday. Mechanical ventilation overnight. Started on spontaneous breathing trial this morning at 12/5 and volumes were small. Increased to 15/8 and volumes looked better with each breath. Still producing lots of thick secretions, dark yellow. Unable to extubate due to general weakness and inability to cough numerous secretions. FiO2 reduced to 40% and gas exchange good. Clearly improved respiratory function from yesterday. Tolerating tube feeds well, gastric residuals minimal , remains constipated and will start on milk of magnesia and. 01/26: Right lower lobe nicely reexpanded after 24 hours on APRV. FI02 reduced to 30%. More alert today, will attempt to extubate. Worsening azotemia appears to be prerenal. We will need to give some volume back. General strength and alertness has improved. 01/27: On BiPAP since last evening. Appears comfortable with 100% O2 sat. Awake and alert. On tube feeds via NG tube 01/28: Resting comfortably, On BIPAP overnight. Tolerating facemask during day prn. Tolerating tube feeds. Hgb 7.1 today, 1 unit PRBCs ordered. 01/29: Was on nasal cannula all day. Last night developed worsening respiratory status and tachypnea for which he was placed on BiPAP. Remains on BiPAP this morning and appears comfortable. Chest x-ray this morning shows haziness over right lung field with probable pulmonary edema versus infiltrate. 01/30: Surgery yesterday for bilateral shoulder collections under general anesthesia, tolerated procedure well was subsequently transferred back to the ICU and kept orally intubated on mechanical ventilation overnight. CT chest done yesterday revealed bilateral pleural effusions right greater than left for which CT-guided thoracentesis with pigtail catheter placement being scheduled with IR. 01/31: Remains sedated, orally intubated on mechanical ventilation. Underwent right-sided pigtail catheter placement by IR yesterday with drainage of about 800 cc of pleural fluid. Tolerating tube feeds. Planning CPAP trials today. Evaluated by Dr. Macias from pulmonary yesterday 02/01: Remains sedated, orally intubated on mechanical ventilation. On Levophed 1.5 mics per minute. Blood pressure labile, currently 140s. Significant oral secretions however ET tube with minimal secretions overnight. Tolerating tube feeds. New left IJ central line placed on 01/31 and right IJ central line removed. 02/02: Remains intubated more awake currently on 2 mics of Levophed to maintain map above 65. Patient is able to follow commands even though weak. Urine output of approximately 1200 mL in 24 hours, chest tube output 50 mL. Family is at the bedside 02/03: No acute events reported overnight. Patient remains very lethargic and weak. Tolerated CPAP intermittently yesterday. Remains on IV Lasix to mobilize fluid. Urine output 1.5 L in 24 hours. Creatinine slightly increased to 2.16, however patient is grossly fluid positive. Will continue with diuresis. Son at the bedside updated today. Because of generalized weakness it is recommended patient get a tracheostomy for safe ventilator weaning and to facilitate aggressive physical therapy 02/04: Remains off sedation today. Slightly more awake weakly follows commands x4. He does respond to track more today. Remains quite weak though. Urine output improved with Lasix drip. 2.5 L output in 24 hours, however creatinine increased to 2.26. Nephrology following 02/05: On spontaneous breathing trial this morning with pressure support of 12 spontaneous tidal volumes are around 290 and he attempts to low rate results and tachypnea greater than 35/min and tidal volume less than 200. He has been extubated unsuccessfully several times and continues to fatigue during attempts to reduce pressure support. He remains alert and cooperative and well likely be weaned from mechanical ventilation eventually but at this point he really needs a tracheostomy so we can accomplish better mobilization and more realistic intermittent ventilatory support during his final stages of weaning. Family has agreed to go to [facility] for long-term ventilator weaning. 02/06: Nuisance bleeding from fresh tracheostomy skin edge required single suture this morning. Coagulation studies are normal and platelets are normal. No evidence of any coagulation problems observed, patient made clot quite readily. Renal function remains about the same. Plan for PEG tube insertion and subsequent transfer to [facility] remains. 02/07: Trach site is clean and dry. We will restart DVT prophylaxis heparin dose. KUB abdomen benign. Biliary study does not suggest need for intervention. Some abdominal splinting related to anterior wall pain. 02/08: A little more difficulty during spontaneous breathing trials due to some abdominal wall pain following PEG insertion. Gas exchange is acceptable. We will start Midodrine to try to get off the last microgram of Levophed. Tracheostomy site remains clean and dry. PEG tube site clean and dry. 02/09: He has had a good past 48 hours. Tracheostomy is functioning well and helps in the mobilization of some thick secretions. Chest x-ray looks good after removal of right pigtail thoracostomy tube. Gastrostomy tube functioning well and tube feedings up to goal. Globin has been stable and leukocytosis has resolved. He is on antibiotics for the staph infection in the hardware in his back and coverage of other peripheral sites in which he formed abscesses. He continues to tolerate spontaneous breathing trials but is several weeks from formal separation from the ventilator. Arrangements have been made for him to go to [facility] in Saturday for long-term vent weaning. He has chronic edema in his right leg and right arm. 02/10: Resting comfortably on mechanical ventilation via tracheostomy. PEG tube feeds ongoing. Objective Vital Signs / I&O: Vital Signs 02/09/18 15:00 02/09/18 16:00 02/09/18 16:51 Temperature 99.3 F Pulse Rate 98 H 93 H Respiratory Rate 15 15 17 Blood Pressure 129/69 Pulse Oximetry 94 L 94 L 96 02/09/18 17:00 02/09/18 18:00 02/09/18 18:08 Temperature Pulse Rate 95 H 93 H 93 H Respiratory Rate 14 18 15 Blood Pressure 130/63 Pulse Oximetry 93 L 94 L 94 L 02/09/18 19:00 02/09/18 20:00 02/09/18 20:28 Temperature 100.1 F H Pulse Rate 101 H 103 H Respiratory Rate 15 14 14 Blood Pressure Pulse Oximetry 96 95 96 02/09/18 20:30 02/09/18 20:49 02/09/18 21:00 Temperature Pulse Rate 108 H 110 H 109 H Respiratory Rate 14 15 18 Blood Pressure 134/65 130/62 Pulse Oximetry 95 95 95 02/09/18 21:19 02/09/18 21:49 02/09/18 22:00 Temperature Pulse Rate 117 H 110 H 113 H Respiratory Rate 15 14 16 Blood Pressure 114/80 115/74 Pulse Oximetry 94 L 94 L 94 L 02/09/18 22:19 02/09/18 22:49 02/09/18 23:00 Temperature Pulse Rate 112 H 113 H Respiratory Rate 17 14 14 Blood Pressure 121/80 124/79 Pulse Oximetry 96 95 88 L 02/09/18 23:19 02/09/18 23:49 02/09/18 23:52 Temperature Pulse Rate 106 H Respiratory Rate 16 14 14 Blood Pressure 136/88 131/74 Pulse Oximetry 85 L 95 96 02/10/18 00:00 02/10/18 00:19 02/10/18 00:49 Temperature 100.2 F H Pulse Rate 113 H 110 H 120 H Respiratory Rate 16 16 17 Blood Pressure 128/64 Pulse Oximetry 93 L 95 93 L 02/10/18 01:00 02/10/18 01:19 02/10/18 01:49 Temperature Pulse Rate 115 H 111 H 106 H Respiratory Rate 16 15 15 Blood Pressure 111/61 117/66 Pulse Oximetry 94 L 93 L 91 L 02/10/18 02:00 02/10/18 02:19 02/10/18 02:49 Temperature Pulse Rate 112 H 108 H 103 H Respiratory Rate 17 16 12 Blood Pressure 118/63 121/59 L Pulse Oximetry 96 92 L 92 L 02/10/18 03:00 02/10/18 03:19 02/10/18 03:49 Temperature Pulse Rate 106 H 106 H 101 H Respiratory Rate 17 17 17 Blood Pressure 134/61 127/56 L Pulse Oximetry 89 L 92 L 97 02/10/18 04:00 02/10/18 04:19 02/10/18 04:21 Temperature 99.9 F H Pulse Rate 102 H 104 H Respiratory Rate 17 15 17 Blood Pressure 118/80 Pulse Oximetry 95 98 96 02/10/18 04:49 02/10/18 05:00 02/10/18 05:19 Temperature Pulse Rate 105 H 99 H 98 H Respiratory Rate 14 16 16 Blood Pressure 115/56 L 128/66 Pulse Oximetry 96 94 L 94 L 02/10/18 05:49 02/10/18 06:00 02/10/18 06:19 Temperature Pulse Rate 98 H 98 H 89 Respiratory Rate 17 14 14 Blood Pressure 112/65 113/66 Pulse Oximetry 94 L 93 L 96 02/10/18 06:49 02/10/18 07:00 02/10/18 07:19 Temperature Pulse Rate 94 H 95 H 89 Respiratory Rate 14 15 14 Blood Pressure 103/59 L 91/58 L Pulse Oximetry 94 L 95 96 02/10/18 07:49 02/10/18 08:00 02/10/18 08:19 Temperature 97.9 F Pulse Rate 90 86 91 H Respiratory Rate 14 14 14 Blood Pressure 121/70 117/56 L Pulse Oximetry 95 96 96 02/10/18 08:49 02/10/18 09:00 02/10/18 09:23 Temperature Pulse Rate 95 H 90 Respiratory Rate 19 14 14 Blood Pressure 122/55 L Pulse Oximetry 95 94 L 02/10/18 11:50 Temperature Pulse Rate Respiratory Rate 17 Blood Pressure Pulse Oximetry 96 Intake & Output 02/09/18 02/10/18 02/10/18 18:59 06:59 18:59 Intake Total 758 / 758 910 / 910 Output Total 600 / 600 400 / 400 Balance 158 / 158 510 / 510 Weight 79.7 kg Intake: IV 200 / 200 300 / 300 Flexbumin 25% Inj 100 ML @ 60 100 / 100 100 / 100 mls/hr IV.SIG Q12H [facility] Rx#: [id number] Teflaro Inj 300 MG In NS Inj 100 / 100 100 / 100 100 ML @ 100 mls/hr IV.SIG Q12H [facility] Rx#:[id number] Cubicin Inj 800 MG In NS Inj 100 / 100 100 ML @ 200 mls/hr IV.SIG Q48H [facility] Rx#:[id number] Tube Feeding 558 / 558 510 / 510 Tube Irrigant 100 / 100 Output: Urine Amount (Catheter) 600 / 600 400 / 400 Indwelling Urethral Catheter 600 / 600 400 / 400 Other: Date of Last Bowel Movement 02/09/18 02/10/18 02/10/18 # Bowel Movements 5 # Incontinent Bowel Movements 2 Result Diagrams: 02/09/18 04:00 02/10/18 06:24 Objective Remarks: General: Alert, interactive, on mechanical ventilation. More alert today, focuses with eyes and tracks well. HEENT: No icterus, on mechanical ventilation through tracheostomy. Neck : Supple aside from some chronic stiffness. Tracheostomy site clean and dry. Chest/pulm: Good bilateral breath sounds, scattered rhonchi, no wheezing. CVS: S1S2, irregular rhythm. No JVD. Abd: Soft, nontender, bowel sounds present. PEG site clean. PEG feedings at goal. Ext: Warm bilaterally. Dressing over bilateral shoulder surgical site clean dry and intact. Neuro: Easily arousable, tracking with eyes again today. Weakly follows commands x4. Generalized weakness persists Skin: erythematous generalized rash noted Assessment and Plan - Assessment and Plan Plan: Assessment and Plan: Acute combined hypercapnic and hypoxemic respiratory failure Fluid overload/noncardiogenic Pulmonary edema secondary to sepsis MRSA pneumonia Mucus plugging Critical illness myopathy -Continue bronchodilators -Scott required for BPH as well as diuresis, accurate hourly intake output -CT chest with bilateral effusions. S/p CT-guided right-sided thoracentesis/ pigtail catheter placement with IR on 01/30. -Daily CPAP trials. Get patient up to stretcher chair while on the vent daily. PT OT daily -Tracheostomy performed 02/05. PEG insertion 02/06. -Right chest tube removed 02/08. -Chest x-ray 02/09 with right lung well expanded and effusion is gone. Left lung with some hazy infiltrates. MRSA septicemia, septic right shoulder, L spine diskitis, left supraclavicular abscess Septic right shoulder, s/p I&D Urinary tract infection. 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 Tapering steroid Drug rash (sec to Teflaro) Blood cultures positive for MRSA. 2D echocardiogram did not show any findings consistent with vegetations. Patient also had a right shoulder effusion, orthopedics aspirated the shoulder - approximately 30 cc of purulent fluid. Orthopedics performed surgery/drainage of bilateral shoulder collections on 01/29 Previously IR consulted s/p CT-guided drainage of left posterior supraclavicular /posterior chest wall abscess on 01/17/18. s/p US guided drainage of shoulder collection by IR done on 01/23 Continue IV antibiotics per infectious disease recommendations. Teflaro stopped due to drug rash on 02/10. Daptomycin continued per ID. NM WBC scan 01/18/18 and 01/19/18. Imaging discussed with radiology and it seems patient with multiple focal infections bilateral shoulders, also back at the hardware with diskitis/osteomyelitis. Neurology, ID, hem onc following KEKE on CKD. Getting diuresed, Strict I/O, monitor/ replete electrolytes, follow BUN/ Cr Nephrology following, appreciate recs. Significant fluid removal with diuresis but creatinine increased concomitantly Remains moderately fluid positive with some peripheral edema. CVS Atrial Fibrillation, permanent Noncardiogenic pulmonary edema Hypotension Rate well controlled. Recent ECHO EF 65% Dr. Garner following-discussed with Dr. Garner on 01/22. We agreed with diuresing patient for noncardiogenic pulmonary edema while watching renal function/ BP. Off of all vasopressor therapy for 48 hours. Midodrine started as needed. Anemia Will keep hemoglobin above 8 g%. 1 unit PRBC given 02/02/2018 PRBC 2 units given 02/06/18 Protein calorie malnutrition -Continuous enteral nutrition through PEG tube now BPH - Continue Flomax. DVT -heparin 5000 subcu every 12 hours Access: RIJ central line placed 01/22 -discontinued on 01/31. New left IJ central line placed 01/31, DC 02/08. 01/22: D/w Dr. Mani Sherman, D/W CH[employer] G[employer] OPERATOR, D/W patient's family at bedside. 01/23 D/W patient's daughter at bedside regarding current clinical status and plan of care and they voiced understanding and were agreeable with plan of care. D/W ID-Dr Tom on 01/23 01/24: Discussed with patient's family at bedside regarding current clinical status and plan of care and they voiced understanding. Discussed with ID Dr. Tom, discussed with Dr. Piña. Discussed with CH[employer] GUN OPERATOR. 01/25: I spoke with patient's daughter at the bedside this morning. We discussed goals for ventilator weaning and nutrition. I spoke with extensive family members later in the day. 01/26: I spoke at length with the patient's daughter this morning and will speak extensively with other family members later today. 01/27: I spoke with patient's family member at bedside regarding his respiratory status and plan of care and he voiced understanding. Will come back and update other family members later. 01/28: I updated family regarding plan of care. 01/29: Update multiple family members regarding clinical status including borderline respiratory status requiring BiPAP. Patient scheduled for surgery which was also discussed. I explained that patient will probably remain on mechanical ventilation postoperatively until improvement in respiratory status. 01/30: Treated patient's family regarding current clinical status including plan of care. Discussed need for thoracentesis and pigtail catheter placement for right effusion and possible need for bronchoscopy/BAL. They voiced understanding and were agreeable with plan of care. Discussed with Dr. Tom , discussed with Dr. Jacky Macias from pulmonary who was consulted as well for further evaluation of respiratory failure. 01/31: Discussed with patient's daughter/multiple family members at bedside regarding current clinical status and plan of care and they voiced understanding and was agreeable. Discussed with ID Dr. Tom 02/01: Discussed with patient son at bedside regarding current clinical status and plan of care and he voiced understanding and was agreeable. 02/02: Updated family members at the bedside 02/03 Updated son at bedside 02/04 updated family at the bedside 02/05: Lengthy discussion with daughter this morning concerning the process of long-term ventilator weaning. They wish to proceed with tracheostomy and PEG placement [facility] 02/06: I spoke with his daughter at the bedside today concerning new since trach site bleeding and our ongoing plans to have [facility] once the PEG is completed. 02/07: Discussed general patient condition today with daughter and . PEG and trach now completed. Anticipate transfer to LT[facility] Saturday. 02/08: [facility]. Discussed in detail with family today. 02/09: [facility]. Discussed in great detail with family. 02/10: Discussed current clinical status and plan of care with patient's family extensively, they voiced understanding and were agreeable. Discussed with Dr. Tom from [place]. Discussed with CH[employer] GUN OPERATOR. [facility].
[2018-02-10] MEDS ORDERED: DAPTOMYCIN IV.SIG SCH (15:00)
[2018-02-10] MEDS ORDERED: SODIUM CHLOR 0.9% IV.SIG SCH (15:00)
--- NOTE | 2018-02-10 15:54 | P.PNNP ---
Subjective Interval history: Patient has likely a allergic reaction to Teflaro Has a rash Status post tracheostomy and PEG in place Urine output 1.5 L yesterday Physical Exam Vital signs: Vital Signs 02/09/18 16:00 02/09/18 16:51 02/09/18 17:00 Temperature 99.3 F Pulse Rate 93 H 95 H Respiratory Rate 15 17 14 Blood Pressure 129/69 Pulse Oximetry 94 L 96 93 L 02/09/18 18:00 02/09/18 18:08 02/09/18 19:00 Temperature Pulse Rate 93 H 93 H 101 H Respiratory Rate 18 15 15 Blood Pressure 130/63 Pulse Oximetry 94 L 94 L 96 02/09/18 20:00 02/09/18 20:28 02/09/18 20:30 Temperature 100.1 F H Pulse Rate 103 H 108 H Respiratory Rate 14 14 14 Blood Pressure 134/65 Pulse Oximetry 95 96 95 02/09/18 20:49 02/09/18 21:00 02/09/18 21:19 Temperature Pulse Rate 110 H 109 H 117 H Respiratory Rate 15 18 15 Blood Pressure 130/62 114/80 Pulse Oximetry 95 95 94 L 02/09/18 21:49 02/09/18 22:00 02/09/18 22:19 Temperature Pulse Rate 110 H 113 H 112 H Respiratory Rate 14 16 17 Blood Pressure 115/74 121/80 Pulse Oximetry 94 L 94 L 96 02/09/18 22:49 02/09/18 23:00 02/09/18 23:19 Temperature Pulse Rate 113 H Respiratory Rate 14 14 16 Blood Pressure 124/79 136/88 Pulse Oximetry 95 88 L 85 L 02/09/18 23:49 02/09/18 23:52 02/10/18 00:00 Temperature 100.2 F H Pulse Rate 106 H 113 H Respiratory Rate 14 14 16 Blood Pressure 131/74 Pulse Oximetry 95 96 93 L 02/10/18 00:19 02/10/18 00:49 02/10/18 01:00 Temperature Pulse Rate 110 H 120 H 115 H Respiratory Rate 16 17 16 Blood Pressure 128/64 Pulse Oximetry 95 93 L 94 L 02/10/18 01:19 02/10/18 01:49 02/10/18 02:00 Temperature Pulse Rate 111 H 106 H 112 H Respiratory Rate 15 15 17 Blood Pressure 111/61 117/66 Pulse Oximetry 93 L 91 L 96 02/10/18 02:19 02/10/18 02:49 02/10/18 03:00 Temperature Pulse Rate 108 H 103 H 106 H Respiratory Rate 16 12 17 Blood Pressure 118/63 121/59 L Pulse Oximetry 92 L 92 L 89 L 02/10/18 03:19 02/10/18 03:49 02/10/18 04:00 Temperature 99.9 F H Pulse Rate 106 H 101 H 102 H Respiratory Rate 17 17 17 Blood Pressure 134/61 127/56 L Pulse Oximetry 92 L 97 95 02/10/18 04:19 02/10/18 04:21 02/10/18 04:49 Temperature Pulse Rate 104 H 105 H Respiratory Rate 15 17 14 Blood Pressure 118/80 115/56 L Pulse Oximetry 98 96 96 02/10/18 05:00 02/10/18 05:19 02/10/18 05:49 Temperature Pulse Rate 99 H 98 H 98 H Respiratory Rate 16 16 17 Blood Pressure 128/66 112/65 Pulse Oximetry 94 L 94 L 94 L 02/10/18 06:00 02/10/18 06:19 02/10/18 06:49 Temperature Pulse Rate 98 H 89 94 H Respiratory Rate 14 14 14 Blood Pressure 113/66 103/59 L Pulse Oximetry 93 L 96 94 L 02/10/18 07:00 02/10/18 07:19 02/10/18 07:49 Temperature Pulse Rate 95 H 89 90 Respiratory Rate 15 14 14 Blood Pressure 91/58 L 121/70 Pulse Oximetry 95 96 95 02/10/18 08:00 02/10/18 08:19 02/10/18 08:49 Temperature 97.9 F Pulse Rate 86 91 H 95 H Respiratory Rate 14 14 19 Blood Pressure 117/56 L 122/55 L Pulse Oximetry 96 96 02/10/18 09:00 02/10/18 09:23 02/10/18 11:50 Temperature Pulse Rate 90 Respiratory Rate 14 14 17 Blood Pressure Pulse Oximetry 95 94 L 96 02/10/18 15:25 Temperature Pulse Rate Respiratory Rate 17 Blood Pressure Pulse Oximetry 96 Intake & Output 02/09/18 02/10/18 02/10/18 18:59 06:59 18:59 Intake Total 758 / 758 910 / 910 Output Total 600 / 600 400 / 400 Balance 158 / 158 510 / 510 Weight 79.7 kg Intake: IV 200 / 200 300 / 300 Flexbumin 25% Inj 100 ML @ 60 100 / 100 100 / 100 mls/hr IV.SIG Q12H [facility] Rx#: [id number] Teflaro Inj 300 MG In NS Inj 100 / 100 100 / 100 100 ML @ 100 mls/hr IV.SIG Q12H [facility] Rx#:[id number] Cubicin Inj 800 MG In NS Inj 100 / 100 100 ML @ 200 mls/hr IV.SIG Q48H [facility] Rx#:[id number] Tube Feeding 558 / 558 510 / 510 Tube Irrigant 100 / 100 Output: Urine Amount (Catheter) 600 / 600 400 / 400 Indwelling Urethral Catheter 600 / 600 400 / 400 Other: Date of Last Bowel Movement 02/09/18 02/10/18 02/10/18 # Bowel Movements 5 # Incontinent Bowel Movements 2 Narrative: GENERAL: Well-nourished, well-developed patient. SKIN: Warm and dry. NECK: Supple, trachea midline. No JVD. Tracheostomy CARDIOVASCULAR: Regular rate and rhythm without murmurs, gallops, or rubs. RESPIRATORY: Breath sounds equal bilaterally. No accessory muscle use. GASTROINTESTINAL: Abdomen soft, non-tender, nondistended. Status post PEG EXTREMITIES: Edema rash present NEUROLOGICAL: Awake, alert, responsive - Urinary Catheter Management Condom Cath placed during this visit: no Indwelling Urethral Catheter Cath placed during this visit: yes Reason for continuing: Hourly intake/output Insertion date: 01/20/18 Insertion time: 11:30 Assessment and Plan - Assessment (1) Acute renal failure Code(s): N17.9 - Acute kidney failure, unspecified Status: Acute (2) Atrial fibrillation Code(s): I48.91 - Unspecified atrial fibrillation Status: Acute Qualifiers: Atrial fibrillation type: unspecified Qualified Code(s): I48.91 - Unspecified atrial fibrillation (3) Sepsis Code(s): A41.9 - Sepsis, unspecified organism Status: Acute Qualifiers: Sepsis type: methicillin resistant Staphylococcus aureus Qualified Code(s) : A41.02 - Sepsis due to Methicillin resistant Staphylococcus aureus - Plan Patient seen and examined, agree with above. Patient has rash from Teflaro discontinued. Getting Benadryl, increase fluid and will give water flushes On daptomycin for MRSA Cut back on Lasix Creatinine higher 2.5 Explained to the family it could be his medical condition and now he has a reaction to antibiotic which can effect kidney function as well Check urine eosinophils Continue to monitor.
[2018-02-10] MEDS: Chlorhexidine 0.12% Oral Kit 15 ML UDC OROPHARYNG SCH (21:05)
[2018-02-10] MEDS: Melatonin 5 MG Tablet PO SCH (21:05)
[2018-02-11] MEDS: Oral Hygiene Kit OROPHARYNG SCH ×4 (00:18→14:13)
[2018-02-11] MEDS: Albumin Human 25% Inj 100 ML IV.SIG SCH (02:22)
[2018-02-11] MEDS: Levothyroxine 100 MCG Tablet PO SCH (05:08)
[2018-02-11 05:40] LABS: Baso # (Auto) 0.1 th/mm3 (0.0-0.2); Baso % (Auto) 0.7 % (0.0-2.0); Eos # (Auto) 0.8 th/mm3 (0.0-0.4); Eos % (Auto) 6.8 % (0.0-4.0); Hematocrit 26.5 % (39.0-51.0); Hemoglobin 8.6 gm/dL (13.0-17.0); Lymph # (Auto) 1.4 th/mm3 (1.0-4.8); Lymph % (Auto) 11.2 % (9.0-44.0); Mean Corpuscular HGB Conc 32.6 % (32.0-36.0); Mean Corpuscular Volume 85.9 fL (80.0-100.0); Mean Platelet Volume 9.8 fL (7.0-11.0); Mono # (Auto) 0.6 th/mm3 (0.0-0.9); Mono % (Auto) 4.6 % (0.0-8.0); Neut # (Auto) 9.4 th/mm3 (1.8-7.7); Neut % (Auto) 76.7 % (16.0-70.0); Platelet Count 360 th/mm3 (150-450); Red Blood Count 3.08 mil/mm3 (4.50-5.90); Red Cell Distribution Width 19.5 % (11.6-17.2); White Blood Count 12.2 th/mm3 (4.0-11.0)
[2018-02-11 06:14] LABS: Albumin 3.1 g/dL (3.4-5.0); Anion Gap 9 meq/L (5-15); Aspartate Aminotransferase 17 U/L (15-37); Blood Urea Nitrogen 88 mg/dL (7-18); Calcium 9.2 mg/dL (8.5-10.1); Carbon Dioxide 23.2 meq/L (21.0-32.0); Chloride 110 meq/L (98-107); Glomerular Filtration Rate 21 mL/min (>89); Glucose,Random 102 mg/dL (74-106); Potassium 3.7 meq/L (3.5-5.1); Sodium 142 meq/L (136-145)
[2018-02-11 06:15] LABS: Alanine Aminotransferase 25 U/L (12-78)
[2018-02-11 06:17] LABS: Alkaline Phosphatase 729 U/L (45-117); Total Protein 5.8 g/dL (6.4-8.2)
[2018-02-11] MEDS: Heparin - SQ 10,000 UNITS/ML Vial SQ SCH (08:05)
[2018-02-11] MEDS: Pantoprazole Inj 40 MG Vial IV.PUSH SCH (08:05)
[2018-02-11] MEDS: Potassium Bicarbonate 25 MEQ Effervescent Tablet PO SCH (08:08)
[2018-02-11] MEDS: Citalopram 20 MG Tablet PO SCH (08:08)
--- NOTE | 2018-02-11 10:23 | P.PNNP ---
Subjective Interval history: Patient is seen status post trach and PEG on FiO2 40% Blood pressure borderline low, urine output dropped 325 mL last 12 hours Physical Exam Vital signs: Vital Signs 02/10/18 10:49 02/10/18 11:00 02/10/18 11:19 Temperature Pulse Rate 91 H 91 H 93 H Respiratory Rate 16 14 15 Blood Pressure 113/66 110/59 L Pulse Oximetry 93 L 93 L 89 L 02/10/18 11:49 02/10/18 11:50 02/10/18 12:00 Temperature 98.0 F Pulse Rate 95 H 91 H Respiratory Rate 15 17 14 Blood Pressure 95/57 L Pulse Oximetry 94 L 96 95 02/10/18 12:19 02/10/18 12:49 02/10/18 13:00 Temperature Pulse Rate 92 H 90 92 H Respiratory Rate 14 16 15 Blood Pressure 97/62 L 93/50 L Pulse Oximetry 93 L 93 L 89 L 02/10/18 14:00 02/10/18 14:45 02/10/18 15:00 Temperature Pulse Rate 103 H 100 H 102 H Respiratory Rate 17 17 18 Blood Pressure 81/57 L 82/57 L Pulse Oximetry 94 L 95 95 02/10/18 15:25 02/10/18 16:00 02/10/18 17:00 Temperature 99.9 F H Pulse Rate 87 90 Respiratory Rate 17 17 18 Blood Pressure 86/62 L 93/60 L Pulse Oximetry 96 95 94 L 02/10/18 18:00 02/10/18 18:01 02/10/18 19:00 Temperature Pulse Rate 89 87 92 H Respiratory Rate 11 L 14 16 Blood Pressure 80/53 L 82/53 L 124/56 L Pulse Oximetry 97 97 96 02/10/18 19:29 02/10/18 20:00 02/10/18 21:00 Temperature 100 F H Pulse Rate 95 H 88 Respiratory Rate 15 18 17 Blood Pressure 97/58 L 87/56 L Pulse Oximetry 97 97 98 02/10/18 22:00 02/10/18 23:00 02/10/18 23:57 Temperature Pulse Rate 105 H 100 H Respiratory Rate 18 27 H 19 Blood Pressure 96/55 L 95/53 L Pulse Oximetry 95 92 L 96 02/11/18 00:00 02/11/18 01:00 02/11/18 02:00 Temperature 99.2 F Pulse Rate 111 H 105 H 108 H Respiratory Rate 20 17 17 Blood Pressure 143/72 H 116/55 L 118/65 Pulse Oximetry 97 96 94 L 02/11/18 03:00 02/11/18 03:20 02/11/18 04:00 Temperature 99.9 F H Pulse Rate 105 H 104 H Respiratory Rate 24 18 20 Blood Pressure 118/58 L 125/57 L Pulse Oximetry 91 L 92 L 94 L 02/11/18 05:00 02/11/18 06:00 02/11/18 07:00 Temperature Pulse Rate 94 H 102 H 86 Respiratory Rate 19 15 16 Blood Pressure 108/53 L 94/52 L 91/50 L Pulse Oximetry 97 96 95 02/11/18 08:00 02/11/18 08:40 Temperature 98.8 F Pulse Rate 81 Respiratory Rate 17 16 Blood Pressure 103/50 L Pulse Oximetry 95 95 Intake & Output 02/10/18 02/11/18 02/11/18 18:59 06:59 18:59 Intake Total 897 / 897 1386 / 1386 Output Total 300 / 300 1325 / 1325 Balance 597 / 597 61 / 61 Weight 77.9 kg Intake: IV 100 / 100 100 / 100 Flexbumin 25% Inj 100 ML @ 60 100 / 100 100 / 100 mls/hr IV.SIG Q12H [facility] Rx#: [id number] Tube Feeding 737 / 737 686 / 686 Tube Irrigant 60 / 60 Water Bolus Amount 600 / 600 Output: Stool 100 / 100 1000 / 1000 Urine Amount (Catheter) 200 / 200 325 / 325 Indwelling Urethral Catheter 200 / 200 325 / 325 Other: Date of Last Bowel Movement 02/10/18 02/10/18 02/11/18 # Incontinent Bowel Movements 2 Narrative: GENERAL: Well-nourished, well-developed patient. SKIN: Warm and dry. NECK: Supple, trachea midline. No JVD. Tracheostomy CARDIOVASCULAR: Regular rate and rhythm without murmurs, gallops, or rubs. RESPIRATORY: Breath sounds equal bilaterally. No accessory muscle use. GASTROINTESTINAL: Abdomen soft, non-tender, nondistended. Status post PEG EXTREMITIES: Edema rash present NEUROLOGICAL: Awake, alert, responsive - Urinary Catheter Management Condom Cath placed during this visit: no Indwelling Urethral Catheter Cath placed during this visit: yes Reason for continuing: Hourly intake/output Insertion date: 01/20/18 Insertion time: 11:30 Assessment and Plan - Assessment (1) Acute renal failure Code(s): N17.9 - Acute kidney failure, unspecified Status: Acute (2) Atrial fibrillation Code(s): I48.91 - Unspecified atrial fibrillation Status: Acute Qualifiers: Atrial fibrillation type: unspecified Qualified Code(s): I48.91 - Unspecified atrial fibrillation (3) Sepsis Code(s): A41.9 - Sepsis, unspecified organism Status: Acute Qualifiers: Sepsis type: methicillin resistant Staphylococcus aureus Qualified Code(s) : A41.02 - Sepsis due to Methicillin resistant Staphylococcus aureus - Plan Patient seen Patient has rash from Teflaro discontinued. On daptomycin for MRSA Stop albumin and Lasix Normal saline 1 L fluid bolus ordered, patient is getting water flushes Creatinine higher 2.8 Explained to the family it could be his medical condition Concern with elevation of creatinine likely due to prerenal condition giving fluid bolus Negative urine eosinophils Continue to monitor. Dr. King to follow from tomorrow
[2018-02-11] MEDS ORDERED: Sod Chloride 0.9% Inj 1,000 ML IV.SIG SCH (11:00)
[2018-02-11] MEDS: Senna/Docusate Sodium 8.6/50 MG Tablet PO SCH (11:11)
[2018-02-11] MEDS: Chlorhexidine 0.12% Oral Kit 15 ML UDC OROPHARYNG SCH ×2 (11:11→14:13)
[2018-02-11 14:38] VITALS: BP 94/61; PULSE 97; TEMP 99.7
--- NOTE | 2018-02-11 15:08 | XR ---
EXAM DATE: 02/11/2018 2:58 PM EST AGE/SEX: 82 years / Male INDICATIONS: Infiltrate CLINICAL DATA: This is the patient's initial encounter. Patient reports that signs and symptoms have been present for 2 weeks and indicates a pain score of Nonresponsive. MEDICAL/SURGICAL HISTORY: Hypertension. sepsis . tracheostomy COMPARISON: [facility] [place] 1V SINGLE AP, 02/09/2018. . FINDINGS: Stable tracheostomy. Persistent cardiomegaly with indistinct central pulmonary vascularity. Diffuse s oft tissue prominence progressed from previous exam with mild bilateral lower lobe airspace disease. Remainder of the exam is unchanged. CONCLUSION: 1. Cardiomegaly with diffuse interstitial edema, progressed from prior exam. 2. Mild bilateral lower lobe airspace disease, presumably atelectasis. Differential considerations i nclude aspiration. Electronically signed by: Rebel Patterson MD Board Certified Radiologist 02/11/2018 3:07 PM DONNY Adams
[2018-02-11 15:17] VITALS: RESP 19
[2018-02-11 16:38] VITALS: O2SAT 100
== END 2018-02-11 16:02 | disposition short-term general hospital (02) ==
LOC: NEPE 20:27 → NEDA 20:27 → N06 01-14 01:48 → N03 01-15 16:31 → N07 01-19 16:24 → N03 01-20 11:59
PROVIDERS: ADMIT Internal Medicine Critical Care Medicine; ATTEND Internal Medicine Critical Care Medicine